=== PATIENT | male | born 1950 | race Hispanic/Latino ===

== ENCOUNTER 2019-02-11 16:25 | Inpatient (IN) | payer MEDICARE, OTHER ==
[~2019-02-11] VITALS: Wt 65.5 kg
--- OUTSIDE RECORDS SUMMARY | ~2019-02-11 | XMS | Encounter Summary ---
Demographics + + + | Address | [address] | | | [place] [address] | + + + | Home Phone | | + + + | Preferred Language | Unknown | + + + | Marital Status | Single | + + + | Yarsanism Affiliation | Unknown | + + + | Race | Unknown | + + + | Ethnic Group | Unknown | + + + Author + + + | Author | [facility] | | | and [place] | + + + | Organization | [facility] | | | and [place] | + + + | Address | Unknown | + + + | Phone | Unavailable | + + + Support + + +---------+ + | Name | Relationship | Address | Phone | + + +---------+ + | Message Detailed | ECON | Unknown | | + + +---------+ + | Liborio Escobar | ECON | Unknown | | + + +---------+ + Care Team Providers + +------+ + | Care Animal Geneticist Name | Role | Phone | + +------+ + PCP | Unavailable | + +------+ + Encounter Details +--------+ + + + + | Date | Type | Department | Care Team | Description | +--------+ + + + + | 07/10/ | Hospital | [facility] | Saleem Shore, | Rectal cancer (HCC) | | 2016 - | Encounter | [facility] [address] | MD [address] | | | | | [address] | [address] | | | 07/13/ | | [place], [place] | [place] [address] | | | 2016 | | [id number] | [phone] | | | | | [phone] | | | +--------+ + + + + Social History + +-------+ +--------+------+ | Tobacco Use | Types | Packs/Day | Years | Date | | | | | Used | | + +-------+ +--------+------+ | Never Assessed | | | | | + +-------+ +--------+------+ + + + | Sex Assigned at | Date Recorded | | | | + + + | Not on file | | + + + + + + + | Job Start Date | Occupation | Industry | + + + + | Not on file | Not on file | Not on file | + + + + + + + + | Travel History | Travel Start | Travel End | + + + + + + | No recent travel history available. | + + documented as of this encounter Last Filed Vital Signs + + + + + | Vital Sign | Reading | Time Taken | Comments | + + + + + | Blood Pressure | 115/69 | 07/14/2015 3:35 PM | | | | | PDT | | + + + + + | Pulse | 78 | 07/14/2015 3:35 PM | | | | | PDT | | + + + + + | Temperature | 36.4 C (97.6 F) | 07/14/2015 3:35 PM | | | | | PDT | | + + + + + | Respiratory Rate | 18 | 07/14/2015 3:35 PM | | | | | PDT | | + + + + + | Oxygen Saturation | - | - | | + + + + + | Inhaled Oxygen | - | - | | | Concentration | | | | + + + + + | Weight | 68.3 kg (150 lb 8 | 07/14/2015 3:35 PM | | | | oz) | PDT | | + + + + + | Height | 162.6 cm (5' 4") | 07/14/2015 3:35 PM | | | | | PDT | | + + + + + | Body Mass Index | 25.83 | 07/14/2015 3:35 PM | | | | | PDT | | + + + + + documented in this encounter Discharge Summaries Bo Walters ARNP - 07/14/2015 9:24 AM PDTFormatting of this note might be differen t from the original. Discharge Summaries by JONATHON Zambrano at 07/14/15 0924 Author: JONATHON Zambrano Service: General Surgery Author Type: Nurse Óscar bhatia Filed: 07/14/1527 Date of Service: 07/14/15923 Status: Signed Information Services Assistant: JONATHON Zambrano (Nurse Practitioner) [facility] Service: Colon & Rectal Surgery Discharge Summary Date of Admission: 07/11/2015 Date of Discharge: 07/14/15 Discharge Provider: JONATHON ZAMBRANO Treatment Team: Admitting Provider: Saleem Shore MD Discharge Diagnoses: Active Problems: * No active hospital problems. * Resolved Problems: * No resolved hospital problems. * Final Diagnoses: Procedures: Procedure(s): ILEOSTOMY - TAKE DOWN OR REVISION BRIEF HISTORY OF PRESENTATION: Taken from Dr. Shore's H&P: S/P ultralow LAR with coloanal anastomosis for low rec brain cancer. Flex sign and LGI done HOSPITAL COURSE: Jose Eaton was taken to the OR with Dr. Shore for a ileostomy reversal on 06/26 08/10. He is tolerating a general diet without nausea and vomiting. He is passing gas and hav ing liquid stool. He denies any complaints at this time. He states a desire to return home. Past Medical History Diagnosis Date Arthritis Hyperlipidemia Joint pain Rectal cancer (HCC) 09/06/2014 Acute kidney injury (HCC) 01/12/2015 Past Surgical History Procedure Laterality Date Colonoscopy Flexible sigmoidoscopy N/A 08/21/2014 Procedure: SIGMOIDOSCOPY - FLEXIBLE; Surgeon: Saleem Shore MD; Location: [facility]; Service: General; Laterality: N/A; Total hip arthroplasty Bilateral Knee surgery Right Flexible sigmoidoscopy N/A 12/25/2014 Procedure: SIGMOIDOSCOPY - FLEXIBLE; Surgeon: Saleem Shore MD; Location: [facility] ENDO SCOP; Service: General; Laterality: N/A; Robotic assisted laparoscopic colon resection - coloanal N/A 01/03/2015 Procedure: ROBOTIC ASSISTED LAPAROSCOPIC COLON RESECTION - COLOANAL; Surgeon: Saleem chauhan MD; Location: [facility] MAIN OR; Service: General; Laterality: N/A; coloanal pull thr ough Flexible sigmoidoscopy N/A 01/03/2015 Procedure: SIGMOIDOSCOPY - FLEXIBLE; Surgeon: Saleem Shore MD; Location: [facility] MAIN OR; Service: General; Laterality: N/A; Sigmoidoscopy - rigid N/A 01/03/2015 Procedure: SIGMOIDOSCOPY - RIGID; Surgeon: Saleem Shore MD; Location: [facility] MAIN OR ; Service: General; Laterality: N/A; Flexible bronchoscopy N/A 01/17/2015 Procedure: BRONCHOSCOPY - FLEXIBLE; Surgeon: Lui Lindsey MD; Location: [facility] BEDSID E PROCEDURE; Service: Paper Maker; Laterality: N/A; Flexible sigmoidoscopy N/A 04/30/2015 Procedure: SIGMOIDOSCOPY - FLEXIBLE; Surgeon: Saleem Shore MD; Location: [facility] ENDO SCOPY; Service: General; Laterality: N/A; Ileostomy revision N/A 07/11/2015 Procedure: ILEOSTOMY - TAKE DOWN OR REVISION; Surgeon: Saleem Shore MD; Location: [facility] MAIN OR; Service: General; Laterality: N/A; Allergies Allergen Reactions Seasonal Allergies [Other-Environmental] Itching Prescriptions prior to admission Medication Sig Dispense Refill Last Dose meloxicam (MOBIC) 7.5 MG tablet Take 7.5 mg by mouth daily. More than a month at Unkn own time pravastatin (PRAVACHOL) 40 MG tablet Take 40 mg by mouth nightly. More than a month a t Unknown time DISCHARGE EXAM Vital Signs: BP 115/61 mmHg | Pulse 64 | Temp(Src) 97.8 F (36.6 C) (Oral) | Resp 16 | Ht 1.626 m (5' 4") | Wt 68.266 kg (150 lb 8 oz) | BMI 25.82 kg/m2 | SpO2 100% Temp: [97.3 F (36.3 C)-98.1 F (36.7 C)] 97.8 F (36.6 C) (07/13 746) BP: (108-130)/(58-76) 115/61 mmHg (07/13 746) Heart Rate: [64-78] 64 (07/13 746) Resp: [16-18] 16 (07/13 746) SpO2: [100 %] 100 % (07/13 746) Weight: [68.266 kg (150 lb 8 oz)] 68.266 kg (150 lb 8 oz) (07/13 446) Physical Exam Constitutional: He is oriented to person, place, and time. He appears well-developed and we ll-nourished. Cardiovascular: Normal rate. Pulmonary/Chest: Effort normal. Abdominal: Soft. He exhibits no distension. There is no tenderness. There is no rebound and no guarding. Neurological: He is alert and oriented to person, place, and time. Skin: Skin is warm and dry. Psychiatric: He has a normal mood and affect. His behavior is normal. Nursing note and vitals reviewed. DATA CBC: Lab Results Component Value Date WBC 6.08 07/13/2015 RBC 3.87* 07/13/2015 HGB 12.5* 07/13/2015 HCT 36.2* 07/13/2015 MCV 93.7 07/13/2015 MCH 32.3 07/13/2015 MCHC 34.5 07/13/2015 RDW 43.3 07/13/2015 PLT 187 07/13/2015 MPV 8.2 07/13/2015 DIFFTYPE AUTOMATED 07/13/2015 CMP: Lab Results Component Value Date NA 134* 07/13/2015 K 3.7 07/13/2015 CL 102 07/13/2015 CO2 26 07/13/2015 ANIONGAP 10 07/13/2015 GLUF 80 07/13/2015 BUN 9 07/13/2015 CREATININE 0.71 07/13/2015 BCR 13 07/13/2015 CA 8.4* 07/13/2015 PROT 7.3 06/26/2015 ALB 2.8* 07/12/2015 GLOB 3.6 06/26/2015 BILITOT 0.6 06/26/2015 ALP 116* 06/26/2015 AST 15 06/26/2015 ALT 14 06/26/2015 EGFR >60 07/13/2015 PLAN D/C home Hydrocodone PRN for pain OTC stool softener while on narcotic Low residue diet No lifting more than 20 lbs for 4 weeks Ok to shower, no baths until incision are healed Disposition: Home Condition: Stable Code Status: Full Code No discharge procedures on file. Follow up: No follow-up provider specified. Medication List Notice You have not been prescribed any medications. Discharge took 20 minutes, to include final examination, discussion of admission, and prepa ration of prescriptions, instructions for on-going care, follow-up and documentation of disc harge summary. JONATHON ZAMBRANO 07/14/2015 documented in t his encounter Progress Notes Conversion Transaction, Provider Unknown - 07/14/2015 6:22 PM PDTFormatting of this note m ight be different from the original. Nurse Progress Note by Belén Horn RN at 07/14/151821 Author: Belén Horn RN Service: (none) Author Type: Registered Nurse Filed: 07/14/151825 Date of Service: 07/14/151821 Status: Signed Information Services Assistant: Belén Horn RN (Registered Nurse) Pt has been discharged home. Rx and paperwork has been discussed and he knows to follow up as directed. He is ambulating, tolerating food, voiding and pain is controlled. He has no fu rther questions at this time. All instructions have been discussed with pt's friend and with am customs compliance manager. onver alex Transaction, Provider Unknown - 07/14/2015 8:32 AM PDT Case Management by BRIA Ward at 07/14/15831 Author: BRIA Ward Service: (none) Author Type: Inbound Customer Service Agent Filed: 07/14/15 0833 Date of Service: 07/14/15831 Status: Signed Information Services Assistant: BRIA Ward (Inbound Customer Service Agent) CM met with pt for continued discharge planning. Pt states he still has no needs and should be able to manage at home once his bowel function has returned. CM will continue to follow as needed. Rene REED onver alex Transaction, Provider Unknown - 07/14/2015 4:52 AM PDT Nurse Progress Note by Kris Smith RN at 07/14/15451 Author: Kris Smith RN Service: (none) Author Type: Registered Nurse Filed: 07/14/15454 Date of Service: 07/14/15451 Status: Signed Information Services Assistant: Kris Smith RN (Registered Nurse) Patient continues to pass gas. He states a decrease in the amount of mucous when passing ga s. He continues to decline PRN pain medications and prefers to manage pain conservatively wi th IS, ambulation, and heat. He continues to decline scheduled medications as well (includin g heparin); he has been educated about meds. Kris Smith RN 07/14/2015 4:54 AM ilSaleem schaefer MD - 07/13/2015 11:08 AM PDT Progress Notes by Saleem Shore MD at 07/13/15 1108 Author: Saleem Shore MD Service: General Surgery Author Type: Physician Filed: 07/13/15 1109 Date of Service: 07/13/158 Status: Signed Information Services Assistant: Saleem Shore MD (Physician) [facility] Service: Colon & Rectal Surgery Progress Note Hospital Day: LOS: 2 days Post-Op Day: 2 Day Post-Op SUBJECTIVE Patient Summary: ileostomy reversal Events Overnight: No nausea or vomiting, passed gas, pain controlled.ambulatory Scheduled Medications acetaminophen 1,000 mg Intravenous Q6H atorvastatin 20 mg Oral Nightly famotidine 20 mg Oral BID Or famotidine 20 mg Intravenous BID heparin (porcine) 5000 unit/0.5mL 5,000 Units Subcutaneous Q8H potassium chloride 20 mEq Intravenous Once Continuous Infusions lactated ringers 75 mL/hr at 07/13/15 0822 PRN Medications acetaminophen OR acetaminophen, HYDROcodone-acetaminophen OR HYDROcodone-acetaminop hen, morphine OR morphine OR morphine, ondansetron OR ondansetron, polyethylene glycol, zolpidem OBJECTIVE Vital Signs: BP 124/71 mmHg | Pulse 78 | Temp(Src) 98.1 F (36.7 C) (Oral) | Resp 18 | Ht 1.626 m (5' 4") | Wt 69.8 kg (153 lb 14.1 oz) | BMI 26.40 kg/m2 | SpO2 100% Temp: [97.8 F (36.6 C)-98.9 F (37.2 C)] 98.1 F (36.7 C) (07/12 1054) BP: (118-147)/(70-82) 124/71 mmHg (07/12 1054) Heart Rate: [60-91] 78 (07/12 1054) Resp: [16-18] 18 (07/12 105) SpO2: [99 %-100 %] 100 % (07/12 105) Weight: [69.8 kg (153 lb 14.1 oz)] 69.8 kg (153 lb 14.1 oz) (07/12 0422) Physical Exam Constitutional: He is oriented to person, place, and time. He appears well-developed and we ll-nourished. No distress. HENT: Head: Atraumatic. Eyes: Pupils are equal, round, and reactive to light. Neck: Neck supple. Cardiovascular: Normal rate. Pulmonary/Chest: Effort normal. No respiratory distress. Abdominal: Soft. He exhibits no distension. Neurological: He is alert and oriented to person, place, and time. Skin: Skin is warm. He is not diaphoretic. Psychiatric: He has a normal mood and affect. Nursing note and vitals reviewed. DATA CBC: Lab Results Component Value Date WBC 6.08 07/13/2015 RBC 3.87* 07/13/2015 HGB 12.5* 07/13/2015 HCT 36.2* 07/13/2015 MCV 93.7 07/13/2015 MCH 32.3 07/13/2015 MCHC 34.5 07/13/2015 RDW 43.3 07/13/2015 PLT 187 07/13/2015 MPV 8.2 07/13/2015 DIFFTYPE AUTOMATED 07/13/2015 CMP: Lab Results Component Value Date NA 134* 07/13/2015 K 3.7 07/13/2015 CL 102 07/13/2015 CO2 26 07/13/2015 ANIONGAP 10 07/13/2015 GLUF 80 07/13/2015 BUN 9 07/13/2015 CREATININE 0.71 07/13/2015 BCR 13 07/13/2015 CA 8.4* 07/13/2015 PROT 7.3 06/26/2015 ALB 2.8* 07/12/2015 GLOB 3.6 06/26/2015 BILITOT 0.6 06/26/2015 ALP 116* 06/26/2015 AST 15 06/26/2015 ALT 14 06/26/2015 EGFR >60 07/13/2015 PROBLEM LIST Active Problems: * No active hospital problems. * ASSESSMENT & PLAN POD#2 S/p Ileostomy reversal, bowel function returning. - ambulate - Replete lytes. - FLD and advance to Low residue diet. Disposition: Code Status: Full Code Saleem Shore MD 07/13/2015 onversion Transac tion, Provider Unknown - 07/13/2015 5:41 AM PDTFormatting of this note might be different f rom the original. Nurse Progress Note by Kris Smith RN at 07/13/15540 Author: Kris Smith RN Service: (none) Author Type: Registered Nurse Filed: 07/13/1542 Date of Service: 07/13/15540 Status: Signed Information Services Assistant: Kris Smith RN (Registered Nurse) Overnight patient passed a substantial amount of gas, mucous, and old blood that appeared c onsistent with surgical remnants. Patient denies any changes in pain, stomach remains rounde d, soft, and supple; abdominal tenderness remains as it was at shift change, and there is no asael blood. [facility]. Kris Smith RN 07/13/2015 5:42 AM aleem Christie MD - 07/12/2015 9:55 AM PDT Progress Notes by Saleem Shore MD at 07/12/1555 Author: Saleem Shore MD Service: General Surgery Author Type: Physician Filed: 07/12/1557 Date of Service: 07/12/15954 Status: Signed Information Services Assistant: Saleem Shore MD (Physician) [facility] Service: Colon & Rectal Surgery Progress Note Hospital Day: LOS: 1 day Post-Op Day: 1 Day Post-Op SUBJECTIVE Patient Summary: ileostomy reversal Events Overnight: No nausea or vomiting, not passed gas yet, pain controlled.ambulato ry Scheduled Medications acetaminophen 1,000 mg Intravenous Q6H atorvastatin 20 mg Oral Nightly famotidine 20 mg Oral BID Or famotidine 20 mg Intravenous BID heparin (porcine) 5000 unit/0.5mL 5,000 Units Subcutaneous Q8H magnesium sulfate 2 g Intravenous Once Continuous Infusions lactated ringers 75 mL/hr at 07/12/15 0646 PRN Medications acetaminophen OR acetaminophen, HYDROcodone-acetaminophen OR HYDROcodone-acetaminop hen, morphine OR morphine OR morphine, ondansetron OR ondansetron, polyethylene glycol, zolpidem OBJECTIVE Vital Signs: BP 135/83 mmHg | Pulse 65 | Temp(Src) 98.4 F (36.9 C) (Oral) | Resp 16 | Ht 1.626 m (5' 4") | Wt 70.489 kg (155 lb 6.4 oz) | BMI 26.66 kg/m2 | SpO2 100% Temp: [96.6 F (35.9 C)-98.5 F (36.9 C)] 98.4 F (36.9 C) (07/11 742) BP: (114-175)/(69-90) 135/83 mmHg (07/11 742) Heart Rate: [65-104] 65 (07/11 742) Resp: [15-21] 16 (07/11 742) SpO2: [98 %-100 %] 100 % (07/11 742) Height: [162.6 cm (5' 4")] 162.6 cm (5' 4") (07/10 1025) Weight: [70.489 kg (155 lb 6.4 oz)-80.7 kg (177 lb 14.6 oz)] 70.489 kg (155 lb 6.4 oz) ( 0420) BMI (Calculated): [30.6] 30.6 (07/10 1025) FiO2 : [56 %-96 %] 95 % (07/10 1235) Physical Exam Constitutional: He is oriented to person, place, and time. He appears well-developed and we ll-nourished. No distress. HENT: Head: Atraumatic. Eyes: Pupils are equal, round, and reactive to light. Neck: Neck supple. Cardiovascular: Normal rate. Pulmonary/Chest: Effort normal. No respiratory distress. Abdominal: Soft. He exhibits no distension. Neurological: He is alert and oriented to person, place, and time. Skin: Skin is warm. He is not diaphoretic. Psychiatric: He has a normal mood and affect. Nursing note and vitals reviewed. DATA CBC: Lab Results Component Value Date WBC 6.79 07/12/2015 RBC 3.82* 07/12/2015 HGB 12.5* 07/12/2015 HCT 34.9* 07/12/2015 MCV 91.5 07/12/2015 MCH 32.8 07/12/2015 MCHC 35.8* 07/12/2015 RDW 43.3 07/12/2015 PLT 197 07/12/2015 MPV 7.5 07/12/2015 DIFFTYPE AUTOMATED 07/12/2015 CMP: Lab Results Component Value Date NA 136 07/12/2015 K 4.3 07/12/2015 CL 100 07/12/2015 CO2 28 07/12/2015 ANIONGAP 12 07/12/2015 GLUF 100* 07/12/2015 BUN 8 07/12/2015 CREATININE 0.68* 07/12/2015 BCR 12 06/26/2015 CA 8.0* 07/12/2015 PROT 7.3 06/26/2015 ALB 2.8* 07/12/2015 GLOB 3.6 06/26/2015 BILITOT 0.6 06/26/2015 ALP 116* 06/26/2015 AST 15 06/26/2015 ALT 14 06/26/2015 EGFR >60 07/12/2015 PROBLEM LIST Active Problems: * No active hospital problems. * ASSESSMENT & PLAN POD#1 S/p Ileostomy reversal, awaiting return of bowel function. - ambulate - Replete lytes. Disposition: Code Status: Full Code Saleem Shore MD 07/12/2015 onversion Transac tion, Provider Unknown - 07/12/2015 5:47 AM PDTFormatting of this note might be different f rom the original. Nurse Progress Note by Kris Smith RN at 07/12/15546 Author: Kris Smith RN Service: (none) Author Type: Registered Nurse Filed: 07/12/1548 Date of Service: 07/12/15546 Status: Signed Information Services Assistant: Kris Smith RN (Registered Nurse) Patient educated multiple times about DVT prophylaxis with heparin, SCDs, and frequent ambu lation. Patient educated about pain control with breathing exercises, ambulation, scheduled pain me ds, and PRN pain meds. Patient states understanding. Kris Smith RN 07/12/2015 5:48 AM onver alex Transaction, Provider Unknown - 07/11/2015 3:12 PM PDT Case Management by BRIA Ward at 07/11/151511 Author: BRIA Ward Service: (none) Author Type: Inbound Customer Service Agent Filed: 07/11/151512 Date of Service: 07/11/151511 Status: Signed Information Services Assistant: BRIA Ward (Inbound Customer Service Agent) CM met with pt for discharge planning. He is 65 years old and independent at home. Pt does not use Durable Medical Equipment at home. Pt is usually able to perform daily living activi ties including personal hygiene, grooming, dressing, feeding, ambulation and and bladder con trol. Pt currently has no resource concerns at this time. CM will continue to follow as need ed. Discharge Plan: Home. Rene REED 07/11/151511 Discharge Planning Evaluation Admitting Diagnosis Ileostomy reversal Readmission No Living Arrangements Alone Support Systems Family members Type of Residence Private residence Steps to enter 2 Bathrooms on 1st Floor 1-Full Independent with ADL's Yes Independent with Mobility Yes Mental Status Oriented Anticipated Discharge Plan Post Acute Care Needs None at this time Resources Financial concerns No Transportation issues No Patient/Family concerns No Prescription Plan Yes Anticipated Disposition Facility Type Home Medicare Important Message (GAUTAM) Given Met with: Patient and discussed discharge planning, Pt is a 65 y.o., male Patient's PCP is: Kris Hernandez Patient's insurance: Medicare Coverage concerns: None Medication coverage/concerns: None Community resources utilized / needed: None Assistance in transportation: Not needed. Identification of any specific education / training: None Barriers to Discharge / Alternative housing needed: None Anticipated DCP: Home onver alex Transaction, Provider Unknown - 07/11/2015 2:12 PM PDT Progress Notes by Harry Santos RPH at 07/11/151411 Author: Harry Santos RPH Service: (none) Author Type: Pharmacist Filed: 07/11/151411 Date of Service: 07/11/151411 Status: Signed Information Services Assistant: Harry Santos RPH (Pharmacist) Pharmacy will renal dose as needed once labs are available. docume nted in this encounter Plan of Treatment +--------+ + + + + | Date | Type | Specialty | Care Team | Description | +--------+ + + + + | 02/21/ | Hospital | | Saleem Shore, | Rectal prolapse | | 2018 | Encounter | | MD [address] | | | | | | [facility] [address] | | | | | | [place] [address] | | | | | | [phone] | | | | | | | | +--------+ + + + + | 02/21/ | Surgery | | Saleem Shore, | COLONOSCOPY | | 2019 | | | [address] | | | | | | [address] | | | | | | [place] [address] | | | | | | [phone] | | | | | | | | +--------+ + + + + documented as of this encounter Procedures + +--------+ + + + | Procedure Name | Priori | Date/Time | Associated Diagnosis | Comments | | | ty | | | | + +--------+ + + + | TISSUE REQUEST FOR | Routin | 07/14/2015 | | Results for this | | PATHOLOGY (NON-ORD) | e | 12:00 AM | | procedure are in the | | | | PDT | | results section. | + +--------+ + + + | EXTERNAL LAB: CBC | Routin | 07/13/2015 | | Results for this | | | e | 4:17 AM | | procedure are in the | | | | PDT | | results section. | + +--------+ + + + | PHOSPHORUS | Routin | 07/13/2015 | | Results for this | | | e | 4:17 AM | | procedure are in the | | | | PDT | | results section. | + +--------+ + + + | MAGNESIUM | Routin | 07/13/2015 | | Results for this | | | e | 4:17 AM | | procedure are in the | | | | PDT | | results section. | + +--------+ + + + | BASIC METABOLIC | Routin | 07/13/2015 | | Results for this | | PANEL | e | 4:17 AM | | procedure are in the | | | | PDT | | results section. | + +--------+ + + + | EXTERNAL LAB: CBC | Routin | 07/12/2015 | | Results for this | | | e | 7:10 AM | | procedure are in the | | | | PDT | | results section. | + +--------+ + + + | MAGNESIUM | Routin | 07/12/2015 | | Results for this | | | e | 7:10 AM | | procedure are in the | | | | PDT | | results section. | + +--------+ + + + | RENAL FUNCTION PANEL | Routin | 07/12/2015 | | Results for this | | | e | 7:10 AM | | procedure are in the | | | | PDT | | results section. | + +--------+ + + + documented in this encounter Results Tissue Request For Pathology (07/14/2015 12:00 AM PDT) + + | Specimen | + + | Soft tissue sample | | (specimen) | + + + + + | Narrative | Performed At | + + + | SPECIMEN(S): A STOMA SPECIMEN SOURCE: A. STOMA CLINICAL | EXTERNAL LAB | | HISTORY: 07/11/2015 at 1155 H. Rectal cancer. FINAL PATHOLOGIC | | | DIAGNOSIS: Stoma site: - Unremarkable stoma site, negative for | | | malignancy. AMB:emb:C2NR GROSS DESCRIPTION: One specimen is | | | received in one container, labeled with the patient's name: A. | | | Received in formalin designated "stoma", consists of one unoriented | | | segment of small bowel that is 6.6 cm in length and has an average | | | diameter of 2.6 cm. The serosal surface is violaceous and smooth with | | | a 3.4 x 2.2 cm stoma along one aspect. The exposed mucosa is pink-red | | | and finely granular. The stoma is rimmed by 5.2 x 2.7 cm portion of | | | skin. The skin surface is vitale-lentz and wrinkled. The uninvolved | | | mucosa is yellow-lentz and finely granular. The bowel wall has an | | | average thickness of 0.8 cm. Program Lead sections of skin and bowel | | | wall are submitted in cassette A1. FM The gross description | | | section of this report has been prepared using a voice recognition | | | system. The report was reviewed for accuracy, however, sound-alike | | | word errors, addition and/or deletions may occur. If there is any | | | question about this report please contact the originating pathologist. | | | MICROSCOPIC EXAMINATION: Histologic sections of all submitted | | | blocks are examined by light microscopy. These findings, together | | | with the gross examination, support the pathologic diagnosis. | | | PERFORMING LABORATORY: Professional interpretation and technical | | | preparation was performed by [email or web address] | | | [address] [address] ([employer] Estimator: | | | Rahul Adamson M.D.; [facility]#: [id number]). Diagnostician: Asya Garcia | | | [facility] Pathologist Electronically Signed 07/15/2015 | | + + + + +---------+ + + | Performing | Address | City/State/Zipcode | Phone Number | | Organization | | | | + +---------+ + + | EXTERNAL LAB | | | | + +---------+ + + External Lab: KARI (07/13/2015 4:17 AM PDT) + + + + + + | Component | Value | Ref Range | Performed | Pathologist | | | | | At | Signature | + + + + + + | WBC | 6.08Comment: Testing | 3.80 - 11.00 | EXTERNAL | | | | performed at [facility], [address] | K/uL | LAB | | | | [address], | | | | | | [place] [address] | | | | + + + + + + | RED CELL | 3.87 (L)Comment: Testing | 4.20 - 5.70 | EXTERNAL | | | COUNT | performed at [facility], [address] | M/uL | LAB | | | | [address], | | | | | | [place] [address] | | | | + + + + + + | Hgb | 12.5 (L)Comment: Testing | 13.2 - 17.0 | EXTERNAL | | | | performed at [facility], [address] | g/dL | LAB | | | | [address], | | | | | | [place] [address] | | | | + + + + + + | Hematocrit, | 36.2 (L)Comment: Testing | 39.0 - 50.0 % | EXTERNAL | | | POC | performed at [facility], [address] | | LAB | | | | [address], | | | | | | [place] [address] | | | | + + + + + + | MCV | 93.7Comment: Testing | 80.0 - 100.0 fl | EXTERNAL | | | | performed at [facility], [address] | | LAB | | | | [address], | | | | | | [place] [address] | | | | + + + + + + | MCH | 32.3Comment: Testing | 27.0 - 34.0 pg | EXTERNAL | | | | performed at [facility], [address] | | LAB | | | | [address], | | | | | | [place] [address] | | | | + + + + + + | MCHC | 34.5Comment: Testing | 32.0 - 35.5 | EXTERNAL | | | | performed at [facility], [address] | g/dL | LAB | | | | [address], | | | | | | [place] [address] | | | | + + + + + + | RDW-CV | 43.3Comment: Testing | 37 - 53 fl | EXTERNAL | | | | performed at [facility], [address] | | LAB | | | | [address], | | | | | | [place] [address] | | | | + + + + + + | Platelet | 187Comment: Testing | 150 - 400 K/uL | EXTERNAL | | | Count | performed at [facility], [address] | | LAB | | | Plasma | [address], | | | | | | [place] [address] | | | | + + + + + + | MPV | 8.2Comment: Testing | fl | EXTERNAL | | | | performed at [facility], [address] | | LAB | | | | [address], | | | | | | [place] [address] | | | | + + + + + + | Differentia | AUTOMATEDComment: | | EXTERNAL | | | l Type | Testing performed at | | LAB | | | | [facility], [address] | | | | | | [place] | | | | | | [address] | | | | + + + + + + | % Segmented | 73.77Comment: Testing | % | EXTERNAL | | | | performed at [facility], [address] | | LAB | | | Neutrophils | [address], | | | | | | [place] [address] | | | | + + + + + + | % | 17.27Comment: Testing | % | EXTERNAL | | | Lymphocytes | performed at [facility], [address] | | LAB | | | | [address], | | | | | | [place] [address] | | | | + + + + + + | % Monocytes | 6.10Comment: Testing | % | EXTERNAL | | | | performed at [facility], [address] | | LAB | | | | [address], | | | | | | [place] [address] | | | | + + + + + + | % | 2.14Comment: Testing | % | EXTERNAL | | | Eosinophils | performed at [facility], [address] | | LAB | | | | [address], | | | | | | [place] [address] | | | | + + + + + + | % Basophils | 0.72Comment: Testing | % | EXTERNAL | | | | performed at [facility], [address] | | LAB | | | | [address], | | | | | | [place] [address] | | | | + + + + + + | Absolute | 4.48Comment: Testing | 1.90 - 7.40 | EXTERNAL | | | Segmented | performed at [facility], [address] | K/uL | LAB | | | Neutrophils | [address], | | | | | | [place] [address] | | | | + + + + + + | Absolute | 1.05Comment: Testing | 1.00 - 3.90 | EXTERNAL | | | Lymphocytes | performed at [facility], [address] | K/uL | LAB | | | | [address], | | | | | | [place] [address] | | | | + + + + + + | Absolute | 0.37Comment: Testing | 0.00 - 0.80 | EXTERNAL | | | Monocytes | performed at [facility], [address] | K/uL | LAB | | | | [address], | | | | | | [place] [address] | | | | + + + + + + | Absolute | 0.13Comment: Testing | 0.00 - 0.50 | EXTERNAL | | | Eosinophils | performed at [facility], [address] | K/uL | LAB | | | | [address], | | | | | | [place] [address] | | | | + + + + + + | Absolute | 0.04Comment: Testing | 0.00 - 0.10 | EXTERNAL | | | Basophils | performed at [facility], [address] | K/uL | LAB | | | | [address], | | | | | | [place] [address] | | | | + + + + + + + + | Specimen | + + | Blood specimen | | (specimen) | + + + +---------+ + + | Performing | Address | City/State/Zipcode | Phone Number | | Organization | | | | + +---------+ + + | EXTERNAL LAB | | | | + +---------+ + + Phosphorus (07/13/2015 4:17 AM PDT) + + + + + + | Component | Value | Ref Range | Performed | Pathologist | | | | | At | Signature | + + + + + + | PHOSPHORUS | 2.8Comment: Testing | 2.3 - 4.8 mg/dL | EXTERNAL | | | | performed at [facility], [address] | | LAB | | | | [address], | | | | | | [place] [address] | | | | + + + + + + + + | Specimen | + + | Blood specimen | | (specimen) | + + + +---------+ + + | Performing | Address | City/State/Zipcode | Phone Number | | Organization | | | | + +---------+ + + | EXTERNAL LAB | | | | + +---------+ + + Magnesium (07/13/2015 4:17 AM PDT) + + + + + + | Component | Value | Ref Range | Performed | Pathologist | | | | | At | Signature | + + + + + + | Magnesium | 1.9Comment: Testing | 1.7 - 2.4 mg/dL | EXTERNAL | | | | performed at [facility], [address] | | LAB | | | | [address], | | | | | | [place] [address] | | | | + + + + + + + + | Specimen | + + | Blood specimen | | (specimen) | + + + +---------+ + + | Performing | Address | City/State/Zipcode | Phone Number | | Organization | | | | + +---------+ + + | EXTERNAL LAB | | | | + +---------+ + + Basic Metabolic Panel (07/13/2015 4:17 AM PDT) + + + + + + | Component | Value | Ref Range | Performed | Pathologist | | | | | At | Signature | + + + + + + | Na | 134 (L)Comment: Testing | 135 - 143 | EXTERNAL | | | | performed at [facility], [address] | mmol/L | LAB | | | | [address], | | | | | | [place] [address] | | | | + + + + + + | K | 3.7Comment: Testing | 3.5 - 4.9 | EXTERNAL | | | | performed at [facility], [address] | mmol/L | LAB | | | | [address], | | | | | | [place] [address] | | | | + + + + + + | Cl | 102Comment: Testing | 99 - 109 mmol/L | EXTERNAL | | | | performed at [facility], [address] | | LAB | | | | [address], | | | | | | [place] [address] | | | | + + + + + + | CO2 | 26Comment: Testing | 23 - 32 mmol/L | EXTERNAL | | | | performed at [facility], [address] | | LAB | | | | [address], | | | | | | [place] [address] | | | | + + + + + + | Anion Gap | 10Comment: Testing | 5 - 20 mmol/L | EXTERNAL | | | | performed at [facility], [address] | | LAB | | | | [address], | | | | | | [place] [address] | | | | + + + + + + | Glucose, | 80Comment: Testing | 65 - 99 mg/dL | EXTERNAL | | | Fasting | performed at [facility], [address] | | LAB | | | | [address], | | | | | | [place] [address] | | | | + + + + + + | BUN | 9Comment: Testing | 8 - 25 mg/dL | EXTERNAL | | | | performed at [facility], [address] | | LAB | | | | [address], | | | | | | [place] [address] | | | | + + + + + + | Creatinine | 0.71Comment: Testing | 0.70 - 1.30 | EXTERNAL | | | | performed at [facility], [address] | mg/dL | LAB | | | | [address], | | | | | | [place] [address] | | | | + + + + + + | BUN/Creatin | 13Comment: Testing | | EXTERNAL | | | ine Ratio | performed at [facility], [address] | | LAB | | | | [address], | | | | | | [place] [address] | | | | + + + + + + | Calcium | 8.4 (L)Comment: Testing | 8.5 - 10.5 | EXTERNAL | | | | performed at [facility], [address] | mg/dL | LAB | | | | [address], | | | | | | [place] [address] | | | | + + + + + + | Estimated | >60Comment: GFR <60: | mL/min/1.73m2 | EXTERNAL | | | GFR | CHRONIC KIDNEY DISEASE, | | LAB | | | | IF FOUND OVER A 3 MONTH | | | | | | PERIOD.GFR <15: KIDNEY | | | | | | FAILURE.FOR | | | | | | AMERICANS, MULTIPLY THE | | | | | | CALCULATED GFR BY | | | | | | 1.210.Testing performed | | | | | | at [facility], [address] | | | | | | [place] [address], | | | | | | [place] [address] | | | | + + + + + + + + | Specimen | + + | Blood specimen | | (specimen) | + + + +---------+ + + | Performing | Address | City/State/Zipcode | Phone Number | | Organization | | | | + +---------+ + + | EXTERNAL LAB | | | | + +---------+ + + External Lab: CBC (07/12/2015 7:10 AM PDT) + + + + + + | Component | Value | Ref Range | Performed | Pathologist | | | | | At | Signature | + + + + + + | WBC | 6.79Comment: Testing | 3.80 - 11.00 | EXTERNAL | | | | performed at [facility] | K/uL | LAB | | | | [address];[place] | | | | | | [address] | | | | + + + + + + | RED CELL | 3.82 (L)Comment: Testing | 4.20 - 5.70 | EXTERNAL | | | COUNT | performed at [facility] | M/uL | LAB | | | | [address];[place] | | | | | | [address] | | | | + + + + + + | Hgb | 12.5 (L)Comment: Testing | 13.2 - 17.0 | EXTERNAL | | | | performed at [facility] | g/dL | LAB | | | | [address];[place] | | | | | | [address] | | | | + + + + + + | Hematocrit, | 34.9 (L)Comment: Testing | 39.0 - 50.0 % | EXTERNAL | | | POC | performed at [facility] | | LAB | | | | [address];[place] | | | | | | [address] | | | | + + + + + + | MCV | 91.5Comment: Testing | 80.0 - 100.0 fl | EXTERNAL | | | | performed at [facility] | | LAB | | | | [address];[place] | | | | | | [address] | | | | + + + + + + | MCH | 32.8Comment: Testing | 27.0 - 34.0 pg | EXTERNAL | | | | performed at [facility] | | LAB | | | | [address];[place] | | | | | | [address] | | | | + + + + + + | MCHC | 35.8 (H)Comment: Testing | 32.0 - 35.5 | EXTERNAL | | | | performed at [facility] | g/dL | LAB | | | | [address];[place] | | | | | | [address] | | | | + + + + + + | RDW-CV | 43.3Comment: Testing | 37 - 53 fl | EXTERNAL | | | | performed at [facility] | | LAB | | | | [address];[place] | | | | | | [address] | | | | + + + + + + | Platelet | 197Comment: Testing | 150 - 400 K/uL | EXTERNAL | | | Count | performed at [facility] | | LAB | | | Plasma | [address];[place] | | | | | | [address] | | | | + + + + + + | MPV | 7.5Comment: Testing | fl | EXTERNAL | | | | performed at [facility] | | LAB | | | | [address];[place] | | | | | | [address] | | | | + + + + + + | Differentia | AUTOMATEDComment: | | EXTERNAL | | | l Type | Testing performed at | | LAB | | | | [address] | [address];[place] [address] | | | | + + + + + + | % Segmented | 80.27Comment: Testing | % | EXTERNAL | | | | performed at [facility] | | LAB | | | Neutrophils | [address];[place] | | | | | | [address] | | | | + + + + + + | % | 11.95Comment: Testing | % | EXTERNAL | | | Lymphocytes | performed at [facility] | | LAB | | | | [address];[place] | | | | | | [address] | | | | + + + + + + | % Monocytes | 7.21Comment: Testing | % | EXTERNAL | | | | performed at [facility] | | LAB | | | | [address];[place] | | | | | | [address] | | | | + + + + + + | % | 0.09Comment: Testing | % | EXTERNAL | | | Eosinophils | performed at [facility] | | LAB | | | | [address];[place] | | | | | | [address] | | | | + + + + + + | % Basophils | 0.48Comment: Testing | % | EXTERNAL | | | | performed at [facility] | | LAB | | | | [address];[place] | | | | | | [address] | | | | + + + + + + | Absolute | 5.45Comment: Testing | 1.90 - 7.40 | EXTERNAL | | | Segmented | performed at [facility] | K/uL | LAB | | | Neutrophils | [address];[place] | | | | | | [address] | | | | + + + + + + | Absolute | 0.81 (L)Comment: Testing | 1.00 - 3.90 | EXTERNAL | | | Lymphocytes | performed at [facility] | K/uL | LAB | | | | [address];[place] | | | | | | [address] | | | | + + + + + + | Absolute | 0.49Comment: Testing | 0.00 - 0.80 | EXTERNAL | | | Monocytes | performed at [facility];[address] | K/uL | LAB | | | | [address];[place] | | | | | | [address] | | | | + + + + + + | Absolute | 0.01Comment: Testing | 0.00 - 0.50 | EXTERNAL | | | Eosinophils | performed at [facility] | K/uL | LAB | | | | [address];[place] | | | | | | [address] | | | | + + + + + + | Absolute | 0.03Comment: Testing | 0.00 - 0.10 | EXTERNAL | | | Basophils | performed at [facility] | K/uL | LAB | | | | [address];[place] | | | | | | [address] | | | | + + + + + + + + | Specimen | + + | | + + + +---------+ + + | Performing | Address | City/State/Zipcode | Phone Number | | Organization | | | | + +---------+ + + | EXTERNAL LAB | | | | + +---------+ + + Magnesium (07/12/2015 7:10 AM PDT) + + + + + + | Component | Value | Ref Range | Performed | Pathologist | | | | | At | Signature | + + + + + + | Magnesium | 1.7Comment: Testing | 1.7 - 2.4 mg/dL | EXTERNAL | | | | performed at [facility] | | LAB | | | | [address];[place], [place] | | | | | | [address] | | | | + + + + + + + + | Specimen | + + | | + + + +---------+ + + | Performing | Address | City/State/Zipcode | Phone Number | | Organization | | | | + +---------+ + + | EXTERNAL LAB | | | | + +---------+ + + Renal Function Panel (07/12/2015 7:10 AM PDT) + + + + + + | Component | Value | Ref Range | Performed | Pathologist | | | | | At | Signature | + + + + + + | Na | 136Comment: Testing | 135 - 143 | EXTERNAL | | | | performed at [facility] | mmol/L | LAB | | | | [address];[place] | | | | | | [address] | | | | + + + + + + | K | 4.3Comment: Testing | 3.5 - 4.9 | EXTERNAL | | | | performed at [facility] | mmol/L | LAB | | | | [address];[place] | | | | | | [address] | | | | + + + + + + | Cl | 100Comment: Testing | 99 - 109 mmol/L | EXTERNAL | | | | performed at [facility] | | LAB | | | | [address];[place] | | | | | | [address] | | | | + + + + + + | CO2 | 28Comment: Testing | 23 - 32 mmol/L | EXTERNAL | | | | performed at [facility] | | LAB | | | | [address];[place] | | | | | | [address] | | | | + + + + + + | Anion Gap | 12Comment: Testing | 5 - 20 mmol/L | EXTERNAL | | | | performed at [facility] | | LAB | | | | [address];[place] | | | | | | [address] | | | | + + + + + + | Glucose, | 100 (H)Comment: Testing | 65 - 99 mg/dL | EXTERNAL | | | Fasting | performed at [facility] | | LAB | | | | [address];[place] | | | | | | [address] | | | | + + + + + + | BUN | 8Comment: Testing | 8 - 25 mg/dL | EXTERNAL | | | | performed at [facility] | | LAB | | | | [address];[place] | | | | | | [address] | | | | + + + + + + | Creatinine | 0.68 (L)Comment: Testing | 0.70 - 1.30 | EXTERNAL | | | | performed at [facility] | mg/dL | LAB | | | | [address];[place] | | | | | | [address] | | | | + + + + + + | Calcium | 8.0 (L)Comment: Testing | 8.5 - 10.5 | EXTERNAL | | | | performed at [facility] | mg/dL | LAB | | | | [address];[place] | | | | | | [address] | | | | + + + + + + | Albumin | 2.8 (L)Comment: Testing | 3.3 - 4.8 g/dL | EXTERNAL | | | | performed at [facility] | | LAB | | | | [address];[place] | | | | | | [address] | | | | + + + + + + | PHOSPHORUS | 2.9Comment: Testing | 2.3 - 4.8 mg/dL | EXTERNAL | | | | performed at [facility] | | LAB | | | | [address];[place] | | | | | | [address] | | | | + + + + + + | Estimated | >60Comment: GFR <60: | mL/min/1.73m2 | EXTERNAL | | | GFR | CHRONIC KIDNEY DISEASE, | | LAB | | | | IF FOUND OVER A 3 MONTH | | | | | | PERIOD.GFR <15: KIDNEY | | | | | | FAILURE.FOR | | | | | | AMERICANS, MULTIPLY THE | | | | | | CALCULATED GFR BY | | | | | | 1.210.Testing performed | | | | | | at [facility];[address];[place] [address] | | | | + + + + + + + + | Specimen | + + | | + + + +---------+ + + | Performing | Address | City/State/Zipcode | Phone Number | | Organization | | | | + +---------+ + + | EXTERNAL LAB | | | | + +---------+ + + documented in this encounter Visit Diagnoses + + | Diagnosis | + + | Rectal cancer (HCC) Malignant neoplasm of rectum | + + documented in this encounter
--- OUTSIDE RECORDS SUMMARY | ~2019-02-11 | XMS | Encounter Summary ---
Demographics + + + | Address | [address] | | | [place] [address] | + + + | Home Phone | | + + + | Preferred Language | Unknown | + + + | Marital Status | Single | + + + | Gnosticism Affiliation | Unknown | + + + | Race | Unknown | + + + | Ethnic Group | Unknown | + + + Author + + + | Author | [facility] | | | and [place] | + + + | Organization | [facility] | | | and [...] Team Providers + +------+ + | Care Associate Professor Of Theatre Name | Role | Phone | + +------+ + PCP | Unavailable | + +------+ + Encounter Details +--------+ + + + + | Date | Type | Department | Care Team | Description | +--------+ + + + + | 09/06/ | Hospital | [facility] | Conversion | Rectal cancer (HCC) | | 2014 | Encounter | CENTER CV INTRA OP | Transaction, | | | | | [address] | Provider Unknown | | | | | [place], [place] | [phone] | | | | | [address] | | | | | | [phone] | Wood Kaufman MD | | | | | | [address] | | | | | | [place], [place] | | | | | | [address] | | | | | | | [...] + + documented as of this encounter Progress Notes Conversion Transaction, Provider Unknown - 09/06/2014 10:49 AM PDTFormatting of this note m ight be different from the original. Nurse Progress Note by Porsche Lane RN at 09/06/14 252 Author: Porsche Lane RN Service: (none) Author Type: Registered Nurse Filed: 09/06/14 1052 Date of Service: 09/06/141048 Status: Signed [facility]: Porsche A Lane, RN (Registered Nurse) Pt tolerated procedure well. Mediport in place to right chest CDI. Pt able to tolerate juic e and crackers without difficulty. Discharge educated provided to patient via appraisal manager se stout and pt verbalized understanding. Handout also provided. [facility] with friend to provide needed support. Porsche Lane RN docume nted in this encounter Plan of [...] [address] | | | | | | [place] [address] | | | | | | [phone] | | | | | | | | +--------+ + + + + | 02/21/ | Surgery | | Saleem Shore, | COLONOSCOPY | | 2018 | | | MD [address] | | | | | | [address] | | | | | | [place] [address] | | | | | | [phone] | | | | | | | | +--------+ + + + + documented as of this encounter Procedures + +--------+ + + + | Procedure Name | Priori | Date/Time | Associated Diagnosis | Comments | | | ty | | | | + +--------+ + + + | IR PLACEMENT PORT > | Routin | 09/06/2014 | | Results for this | | 5 YEARS | e | 10:25 AM | | procedure are in the | | | | PDT | | results section. | + +--------+ + + + | US GUIDED VASCULAR | Routin | 09/06/2014 | | Results for this | | ACCESS | e | 10:25 AM | | procedure are in the | | | | PDT | | results section. | + +--------+ + + + | PROTIME INR | Routin | 09/06/2014 | | Results for this | | | e | 9:04 AM | | procedure are in the | | | | PDT | | results section. | + +--------+ + + + | MRSA NAAT | Routin | 09/06/2014 | | Results for this | | | e | 8:45 AM | | procedure are in the | | | | PDT | | results section. | + +--------+ + + + documented in this encounter Results US Guided Vascular Access (09/06/2014 10:25 AM PDT) + + | Specimen | + + | | + + + + + | Narrative | Performed At | + + + | This Point of Care (POC) ultrasound image has been reviewed and | | | interpreted by the physician identified as the ordering physician in | | | the associated interpretation and report. | | + + + + + | Procedure Note | + + | Billy De La Garza - 11/10/2018 8:48 AM PDT This Point of Care (POC) ultrasound | | image has been reviewed andinterpreted by the physician identified as the ordering | | physician in theassociated interpretation and report. | | | + + IR Placement Port (09/06/2014 10:25 AM PDT) + + | Specimen | + + | | + + + + + | Impressions | Performed At | + + + | Successful placement of an ultrasound and fluoroscopic guided | | | right internal jugular central venous power injectable chest port. | | | Ready for immediate use. | | + + + + + + | Narrative | Performed At | + + + | IR PORT PLACEMENT dated 09/06/2014 9:21 AM CLINICAL DATA: rectal | | | cancer COMPARISON STUDIES: None. OPERATIONS: 1. Ultrasound | | | guided right internal jugular central venous access. 2. | | | Creation subcutaneous pocket right anterior chest wall. 3. | | | Placement single lumen power injectable chest port. PRIMARY | | | OPERATIONS RESEARCH GROUP MANAGER: Wood Kaufman MD, PhD, RPVI PROCEDURE: Informed | | | consent was obtained from the patient. Continuous cardiac monitoring | | | was performed throughout the procedure. Conscious sedation was | | | provided by the nursing staff during the procedure under my | | | supervision. Sedation time:25 minutes Fluoroscopy time:0.1 | | | minutes Radiation dose:2 mGy air kerma Sedation: 4 mg Versed IV, 200 | | | mcg Fentanyl IV Antibiotic: 2 g Ancef IV While supine on the | | | fluoroscopy table, the patient's right neck and chest were prepped | | | and draped in a sterile fashion. Lidocaine was used for local | | | anesthesia after which percutaneous ultrasound-guided access was | | | obtained via the internal jugular vein using micropuncture | | | technique. A microwire was replaced with a Amplatz wire. A site on | | | the anterior chest wall was selected. A transverse incision was made | | | through which blunt and sharp dissection were utilized in opening a | | | subcutaneous pocket. The pocket was copiously irrigated with | | | saline. The port was then placed within the pocket. A tunneling | | | device attached to the catheter tubing and the 6-Upper Sorbian Bard PowerPort | | | chest port was passed from the pocket to the access site on the neck | | | and the catheter at the access site was pulled through the | | | subcutaneous tissues into the port pocket where it was cut to length. | | | A peel-away introducer was placed through which the catheter was | | | inserted into the central venous system under fluoroscopic guidance. | | | The catheter tip was positioned at the high right atrium. The | | | port was then flushed with heparinized normal saline (100 units/ml). | | | Fluoroscopy was used to confirm satisfactory port and catheter | | | position after which the port was aspirated and flushed with normal | | | saline. The port pocket was then closed with 3-0 Vicryl subcutaneous | | | sutures followed by Dermabond. Dermabond was used to close the | | | small incision at the access site in the neck. The patient | | | tolerated the procedure well without complication. The patient was | | | returned to the short stay unit for routine post procedure | | | monitoring. FINDINGS: The right internal jugular vein is | | | widely patent. Ultrasound-guided access met without difficulty. | | | Fluoroscopy confirms the catheter tip is present at the high right | | | atrium. The port aspirates and flushes normally and may be used for | | | central venous access. | | + + + + + | Procedure Note | + + | Frederic, Rad Conversion - 11/10/2018 8:48 AM PDT IR PORT PLACEMENT dated 09/06/2014 9:21 | | AM CLINICAL DATA: rectal cancer COMPARISON STUDIES: None. OPERATIONS:1. Ultrasound | | guided right internal jugular central venous access.2. Creation subcutaneous pocket | | right anterior chest wall.3. Placement single lumen power injectable chest port. | | PRIMARY OPERATIONS RESEARCH GROUP MANAGER: Wood Kaufman MD, PhD, RPVI PROCEDURE: Informed consent was | | obtained from the patient. Continuous cardiac monitoring was performed throughout the | | procedure. Conscious sedation was provided by the nursing staff during the procedure | | under my supervision. Sedation time:25 minutesFluoroscopy time:0.1 minutesRadiation | | dose:2 mGy air kermaSedation: 4 mg Versed IV, 200 mcg Fentanyl IVAntibiotic: 2 g Ancef | | IV While supine on the fluoroscopy table, the patient's right neck and chest were | | prepped and draped in a sterile fashion. Lidocaine was used for local anesthesia after | | which percutaneous ultrasound-guided access was obtained via the internal jugular vein | | using micropuncture technique. A microwire was replaced with a Amplatz wire. A site on | | the anterior chest wall was selected. A transverse incision was made through which | | blunt and sharp dissection were utilized in opening a subcutaneous pocket. The pocket | | was copiously irrigated with saline. The port was then placed within the pocket. A | | tunneling device attached to the catheter tubing and the 6-Upper Sorbian Bard PowerPort chest | | port was passed from the pocket to the access site on the neck and the catheter at the | | access site was pulled through the subcutaneous tissues into the port pocket where it | | was cut to length. A peel-away introducer was placed through which the catheter was | | inserted into the central venous system under fluoroscopic guidance. The catheter tip | | was positioned at the high right atrium. The port was then flushed with heparinized | | normal saline (100 units/ml). Fluoroscopy was used to confirm satisfactory port and | | catheter position after which the port was aspirated and flushed with normal saline. | | The port pocket was then closed with 3-0 Vicryl subcutaneous sutures followed by | | Dermabond. Dermabond was used to close the small incision at the access site in the | | neck. The patient tolerated the procedure well without complication. The patient was | | returned to the short stay unit for routine post procedure monitoring. FINDINGS: The | | right internal jugular vein is widely patent. Ultrasound-guided access met without | | difficulty. Fluoroscopy confirms the catheter tip is present at the high right atrium. | | The port aspirates and flushes normally and may be used for central venous access. | | IMPRESSION: Successful placement of an ultrasound and fluoroscopic guided right | | internal jugular central venous power injectable chest port. Ready for immediate use. | | | |FINDINGS: | | | |The right internal jugular vein is widely patent. Ultrasound-guided access met without di fficulty. Fluoroscopy confirms the catheter tip is present at the high right atrium. The p ort aspirates and flushes normally | |and may be used for central venous | |access. | | | |IMPRESSION: | | | |Successful placement of an ultrasound and fluoroscopic guided right internal jugular centra l venous power injectable chest port. Ready for immediate use. | | | | | + + Protime INR (09/06/2014 9:04 AM PDT) + + + + + + | Component | Value | Ref Range | Performed | Pathologist | | | | | At | Signature | + + + + + + | INR | 1.0Comment: REFERENCE | | EXTERNAL | | | | RANGE:0.9 - 1.2 | | LAB | | | | NON-ANTICOAGULATED2.0 | | | | | | - 3.0 ALL OTHER | | | | | | THERAPEUTIC | | | | | | INDICATIONS2.5 - 3.5 | | | | | | MECHANICAL HEART VALVES, | | | | | | RECURRENT OR SYSTEMIC | | | | | | EMBOLISMTesting | | | | | | performed at [facility];[id number] | [address] | [address];[place], [place] | | | | | | [address] | | | | + + + + + + + + | Specimen | + + | Blood specimen | | (specimen) | + + + +---------+ + + | Performing | Address | City/State/Zipcode | Phone Number | | Organization | | | | + +---------+ + + | EXTERNAL LAB | | | | + +---------+ + + MRSA NAAT (09/06/2014 8:45 AM PDT) + + | Specimen | + + | | + + + + + | Narrative | Performed At | + + + | [facility](NOSE) | EXTERNAL LAB | | Testing performed at [facility];[address] [place] [address];[place] [address] MRSA PCR | | | NEGATIVE Testing performed at | | | [facility];[address] [place] [address];[place] [address] | | + + + + +---------+ [...] rectum | + + documented in this encounter"
--- OUTSIDE RECORDS SUMMARY | ~2019-02-11 | XMS | Encounter Summary ---
Demographics + + + | Address | [address] | | | [place] [address] | + + + | Home Phone | | + + + | Preferred Language | Unknown | + + + | Marital Status | Single | + + + | Advent Affiliation | Unknown | + + + | Race | Unknown | + + + | Ethnic Group | Unknown | + + + Author + + + | Author | [facility] | | | and [place] | + + + | Organization | [facility] | | | and [...] Team Providers + +------+ + | Care Project Archivist Name | Role | Phone | + +------+ + | Kris Hernandez | PCP | | + +------+ + Reason for Visit +--------+ + | Reason | Comments | +--------+ + | Other | schedule surgery | +--------+ + Encounter Details +--------+ + + + + | Date | Type | Department | Care Team | Description | +--------+ + + + + | 02/08/ | Telephone | [facility] | Saleem Shore, | Other (schedule | | 2019 | | GENERAL SURGERY [address] | [address] | surgery) | | | | [address] | [address] | | | | | [place], [place] | [place] [address] | | | | | [address] | [phone] | | | | | [phone] | | | +--------+ + + + + Social History + +-------+ +--------+------+ | Tobacco Use | Types | Packs/Day | Years | Date | | | | | Used | | + +-------+ +--------+------+ | Former Smoker | | | | | + +-------+ +--------+------+ + +---+---+---+ | Smokeless Tobacco: | | | | | Never Used | | | | + +---+---+---+ + + + | Sex Assigned at [...] + + documented as of this encounter Plan of Treatment +--------+ + + + + | Date | Type | Specialty | Care Team | Description | +--------+ + + + + | 02/21/ | Hospital | | Saleem Shore, | Rectal prolapse | | 2018 | Encounter | | MD [address] | | | | | | [address] | | | | | | [place] [address] | | | | | | [phone] | | | | | | | | +--------+ + + + + | 02/21/ | Surgery | | Saleem Shore, | COLONOSCOPY | | 2018 | | | MD [address] | | | | | | [address] | | | | | | [place] [address] | | | | | | [phone] | | | | | | | | +--------+ + + + + documented as of this encounter Visit Diagnoses Not on filedocumented in this encounter"
--- OUTSIDE RECORDS SUMMARY | ~2019-02-11 | XMS | Encounter Summary ---
Demographics + + + | Address | [address] | | | [place] [address] | + + + | Home Phone | | + + + | Preferred Language | Unknown | + + + | Marital Status | Single | + + + | Hinduism Affiliation | Unknown | + + + | Race | Unknown | + + + | Ethnic Group | Unknown | + + + Author + + + | Author | [facility] | | | and [place] | + + + | Organization | [facility] | | [...] Team Providers + +------+ + | Care Apprentice Technician Name | Role | Phone | + +------+ + | Kris Hernandez | PCP | | + +------+ + Reason for Visit +--------+ + | Reason | Comments | +--------+ + | Other | Established patient presents with c/o rectal prolapse. Patient | | | denies pain and bleeding but states he does have drainage. | +--------+ + Encounter Details +--------+---------+ + + + | Date | Type | Department | Care Team | Description | +--------+---------+ + + + | 01/18/ | Office | [facility] | Saleem Shore, | Rectal prolapse | | 2019 | Visit | GENERAL SURGERY [address] | [address] | (Primary Dx) | | | | [address] | [facility] [address] | | | | | [place], [place] | [place] [address] | | | | | [address] | [phone] | | | | | [phone] | | | +--------+---------+ + + + Social History + +-------+ [...] this encounter Last Filed Vital Signs + +---------+ + + | Vital Sign | Reading | Time Taken | Comments | + +---------+ + + | Blood Pressure | 126/64 | 01/18/2019 2:59 PM | | | | | PDT | | + +---------+ + + | Pulse | 88 | 01/18/2019 2:59 PM | | | | | PDT | | + +---------+ + + | Temperature | - | - | | + +---------+ + + | Respiratory Rate | 20 | 01/18/2019 2:59 PM | | | | | PDT | | + +---------+ + + | Oxygen Saturation | - | - | | + +---------+ + + | Inhaled Oxygen | - | - | | | Concentration | | | | + +---------+ + + | Weight | - | - | | + +---------+ + + | Height | - | - | | + +---------+ + + | Body Mass Index | - | - | | + +---------+ + + documented in this encounter Progress Notes Saleem Shore MD - 01/18/2019 2:30 PM PDTFormatting of this note might be different f rom the original. Service: Colorectal Surgery History & Physical ID: Jose Eaton; DATE OF VISIT: 01/18/2019 History Obtained From: History obtained from chart review and the patient. CHIEF COMPLAINT: rectal prolapse HISTORY OF PRESENT ILLNESS The patient is a 68 y.o. male who is a known patient to our clinic patient has a history of low rectal cancer and underwent a low anterior resection with a rectal anastomosis. Procedure(s): Robotic Ultra-low Anterior resection, total mesorectal excision, complete mo bilization of the splenic flexure, Rigid Proctoscopy, Hand-sewn coloanal pull through and cr eation of a diverting loop ileostomy. In December 2014. Patient is doing well and states that he did not have a colonoscopy follow-up. But he is h ere complaining of a prolapse in his rectum. He said this is asymptomatic to him he denies bleeding or pain and also denies fecal incontinence. He says that this reduces spontaneousl y after he has a bowel movement. Active comorbid conditions include: - dysrhythmias - CHF - seizures - anemia - arthritis REVIEW OF SYSTEMS Review of Systems Musculoskeletal: Positive for arthritis. Neurological: Positive for seizures. All other systems reviewed and are negative. Past Medical History: Diagnosis Date Acute kidney injury (HCC) 01/12/2015 Arthritis Hyperlipidemia Joint pain Rectal cancer (HCC) 09/06/2014 Seizures (HCC) 06/10/2018 Past Surgical History: Procedure Laterality Date COLONOSCOPY KNEE SURGERY Right OTHER SURGICAL HISTORY 07/11/2015 ILEOSTOMY REVISION - Procedure: ILEOSTOMY - TAKE DOWN OR REVISION; Surgeon: Saleem myrick MD; Location: [facility] MAIN OR; Service: General; Laterality: N/A; OTHER SURGICAL HISTORY 04/30/2015 FLEXIBLE SIGMOIDOSCOPY - Procedure: SIGMOIDOSCOPY - FLEXIBLE; Surgeon: Saleem Shore MD; Location: [facility] ENDOSCOPY; Service: General; Laterality: N/A; OTHER SURGICAL HISTORY 01/17/2015 FLEXIBLE BRONCHOSCOPY - Procedure: BRONCHOSCOPY - FLEXIBLE; Surgeon: Lui Lindsey MD; Location: [facility] BEDSIDE PROCEDURE; Service: Crm Functional Analyst; Laterality: N/A; OTHER SURGICAL HISTORY 01/03/2015 ROBOTIC ASSISTED LAPAROSCOPIC COLON RESECTION - COLOANAL - Procedure: ROBOTIC ASSISTED LAP AROSCOPIC COLON RESECTION - COLOANAL; Surgeon: Saleem Shore MD; Location: [facility] MAIN O R; Service: General; Laterality: N/A; coloanal pull through OTHER SURGICAL HISTORY 01/03/2015 FLEXIBLE SIGMOIDOSCOPY - Procedure: SIGMOIDOSCOPY - FLEXIBLE; Surgeon: Saleem Shore MD; Location: [facility] MAIN OR; Service: General; Laterality: N/A; OTHER SURGICAL HISTORY 01/03/2015 SIGMOIDOSCOPY - RIGID - Procedure: SIGMOIDOSCOPY - RIGID; Surgeon: Saleem Shore MD; Location: [facility] MAIN OR; Service: General; Laterality: N/A; OTHER SURGICAL HISTORY 12/25/2014 FLEXIBLE SIGMOIDOSCOPY - Procedure: SIGMOIDOSCOPY - FLEXIBLE; Surgeon: Saleem Shore MD; Location: [facility] ENDOSCOPY; Service: General; Laterality: N/A; OTHER SURGICAL HISTORY 08/21/2014 FLEXIBLE SIGMOIDOSCOPY - Procedure: SIGMOIDOSCOPY - FLEXIBLE; Surgeon: Saleem Shore MD; Location: [facility] ENDOSCOPY; Service: General; Laterality: N/A; TOTAL HIP ARTHROPLASTY Bilateral Allergies not on file (Not in a hospital admission) No family history on file. Social History Tobacco Use Smoking Status Former Smoker Smokeless Tobacco Never Used Social History Substance and Sexual Activity Alcohol Use Not on file PHYSICAL EXAM BP 126/64 | Pulse 88 | Resp 20 Wt. Admission: Wt. Current: There is no height or weight on file to calculate BMI. Physical Exam Constitutional: He is oriented to person, place, and time. He appears well-developed and we ll-nourished. No distress. HENT: Head: Atraumatic. Eyes: Pupils are equal, round, and reactive to light. Neck: Neck supple. Cardiovascular: Normal rate. Pulmonary/Chest: Effort normal. No respiratory distress. Abdominal: Soft. He exhibits no distension. There is no tenderness. Neurological: He is alert and oriented to person, place, and time. Skin: Skin is warm. He is not diaphoretic. Psychiatric: He has a normal mood and affect. Nursing note and vitals reviewed. Labs: No results for input(s): WBC, HGB, HCT, PLT, MCV in the last 72 hours. Invalid input(s): BANDSPCT No results for input(s): NA, K, CL, CO2, BUN, CREA, CALCIUM, MG, PHOS in the last 72 hours. ASSESSMENT & PLAN 1. This is a very pleasant 68-year-old gentleman who is status post pelvic radiation and low anterior resection for a low rectal cancer is presenting with a full-thickness rectal pr olapse at [facility]. Discussed with him the findings and based on the fact that he is asymptomatic with this will plan on nonoperative management of it at this point but I will s chedule him for a colonoscopy due to history of cancer and needing a follow-up for that. Saleem Shore MD 15:21; 01/18/2019 cc: NEIL Nolan documented in this encounter Plan of Treatment +--------+ + + + + | Date | Type | Specialty | Care Team | Description | +--------+ + + + + | 02/21/ | Hospital | | Saleem Shore, | Rectal prolapse | | 2018 | Encounter | | MD Rebecca [address] | | | | | | [facility] [address] | | | | | | [place] [address] | | | | | | [phone] | | | | | | | | +--------+ + + + + | 02/21/ | Surgery | | Saleem Shore, | COLONOSCOPY | | 2018 | | | [address] | | | | | | [address] | | | | | | [place] [address] | | | | | | [phone] | | | | | | | | +--------+ + + + + documented as of this encounter Visit Diagnoses + + | Diagnosis | + + | Rectal prolapse - Primary | + + documented in this encounter"
--- OUTSIDE RECORDS SUMMARY | ~2019-02-11 | XMS | Encounter Summary ---
Demographics + + + | Address | [address] | | | [place] [address] | + + + | Home Phone | | + + + | Preferred Language | Unknown | + + + | Marital Status | Single | + + + | Episcopal Affiliation | Unknown | + + + | Race | Unknown | + + + | Ethnic Group | Unknown | + + + Author + + + | Author | [facility] | | | and [place] | + + + | Organization | [facility] | | | and [...] Team Providers + +------+ + | Care Glass Beveller Name | Role | Phone | + +------+ + PCP | Unavailable | + +------+ + Encounter Details +--------+ + + + + | Date | Type | Department | Care Team | Description | +--------+ + + + + | 12/25/ | Hospital | [facility] | Saleem Shore, | Rectal cancer (HCC) | | 2014 | Encounter | [facility] | [address] | | | | | INTRA OP [address] | [address] | | | | | [address] [place], [place] | [place] [address] | | | | | [address] | [phone] | | | | | [phone] | | | +--------+ + + + [...] | Rectal prolapse | | 2019 | Encounter | | [address] | | | | | | [address] | | | | | | [place] [address] | | | | | | [phone] | | | | | | | | +--------+ + + + + | 02/21/ | Surgery | | Saleem Shore, | COLONOSCOPY | | 2019 | | | MD [address] | | | | | | [address] | | | | | | [place] [address] | | | | | | [phone] | | | | | | | | +--------+ + + + + documented as of this encounter Visit Diagnoses + + | Diagnosis | + + | Rectal cancer (HCC) Malignant neoplasm of rectum | + + documented in this encounter"
--- OUTSIDE RECORDS SUMMARY | ~2019-02-11 | XMS | Clinical Summary ---
Demographics + + + | Address | [address] | | | [place] [address] | + + + | Home Phone | | + + + | Preferred Language | Unknown | + + + | Marital Status | Single | + + + | Baptism Affiliation | Unknown | + + + | Race | Unknown | + + + | Ethnic Group | Unknown | + + + Author + + + | Author | [facility] (Historical as of | | | 11-11-18) | + + + | Organization | [facility] (Historical as of | | | 11-11-18) | + + + | Address | Unknown | + + + | Phone | Unavailable | + + + Support + + +---------+ + | Name | Relationship | Address | Phone | + + +---------+ + | Detailed,Message | ECON | Unknown | | + + +---------+ + | Liborio Escobar | ECON | Unknown | | + + +---------+ + Care Team Providers + +------+ + | Care Route Delivery Supervisor Name | Role | Phone | + +------+ + | Kris Hernandez PA-C | PP | | + +------+ + Allergies + + + + + + | Active Allergy | Reactions | Severity | Noted | Comments | | | | | Date | | + + + + + + | Other-Environmental | Itching | Medium | 05/20/20 | | | | | | 15 | | + + + + + + Current Medications + + +--------+---------+------+------+-------+ | Prescription | Sig. | Disp. | Refills | Star | End | Statu | | | | | | t | Date | s | | | | | | Date | | | + + +--------+---------+------+------+-------+ | loperamide | Take 2 mg by mouth 4 | | | | | Activ | | (IMODIUM A-D) 2 MG | (four) times daily | | | | | e | | tablet | as needed for | | | | | | | | Diarrhea. | | | | | | + + +--------+---------+------+------+-------+ | aspirin 81 MG EC | Take 1 tablet by | 30 | 1 | 03/2 | 03/ | Activ | | tablet | mouth daily with | tablet | | 12/15 | 11/14 | e | | | breakfast. | | | 19 | 20 | | + + +--------+---------+------+------+-------+ | levETIRAcetam | Take 1 tablet by | 60 | 1 | 03/2 | 03/2 | Activ | | (KEPPRA) 500 MG | mouth 2 (two) times | tablet | | 8/20 | 720 | e | | tablet | daily. | | | 19 | 20 | | + + +--------+---------+------+------+-------+ | pravastatin | Take 1 tablet by | 30 | 1 | 03/2 | | Activ | | (PRAVACHOL) 40 MG | mouth nightly. | tablet | | 8/20 | | e | | tablet | | | | 19 | | | + + +--------+---------+------+------+-------+ | thiamine (VITAMIN | Take 1 tablet by | 30 | 1 | 03/2 | 03/2 | Activ | | B-1) 100 MG | mouth daily. | tablet | | 8/20 | 7/20 | e | | tabletIndications: | | | | 19 | 20 | | | ETOH abuse | | | | | | | + + +--------+---------+------+------+-------+ | polycarbophil | Take 1 tablet by | 60 | 1 | / | 05/27 | Activ | | calcium (FIBERCON) | mouth 2 (two) times | tablet | | 8/20 | 7/20 | e | | 625 MG tablet | daily as needed | | | 19 | 20 | | | | (Constipation no | | | | | | | | stools for 2 days). | | | | | | + + +--------+---------+------+------+-------+ Active Problems + + + | Problem | Noted Date | + + + | Chronic systolic congestive heart failure (HCC) | 06/17/2018 | + + + | Malignant neoplasm of colon (HCC) | 06/10/2018 | + + + + + | Overview: S/p surgical resection and ileostomy followed by | | ileostomy reversal Overview: lower rectal area per report, needs | | additional imaging being followed by general surgeon at this time | | 07/2014Dx name changed by system update 12/17/2016 | |general surgeon at this time 07/2014 | | | |Dx name changed by system update 12/17/2016 | + + + + + | Seizures (HCC) | 06/10/2018 | + + + | ETOH abuse | 06/10/2018 | + + + | Chronic diarrhea | 06/09/2018 | + + + | Ileostomy in place | 01/25/2015 | + + + | E coli bacteremia | 01/25/2015 | + + + | Protein-calorie malnutrition, severe | 01/24/2015 | + + + | Physical deconditioning | 01/24/2015 | + + + | Chronic atrial fibrillation (HCC) | 01/24/2015 | + + + | Acute pancreatitis | 01/16/2015 | + + + | Lactic acidosis | 01/12/2015 | + + + | Acute respiratory failure with hypoxia (HCC) | 01/12/2015 | + + + | Aspiration pneumonia (HCC) | 01/12/2015 | + + + | Acute kidney injury (HCC) | 01/12/2015 | + + + | Severe sepsis (HCC) | 01/11/2015 | + + + | Paroxysmal atrial fibrillation (HCC) | 01/06/2015 | + + + | Persistent atrial fibrillation (HCC) | 01/05/2015 | + + + | Hyperlipidemia | 01/05/2015 | + + + | Abdominal pain | 01/05/2015 | + + + | Anemia | 01/05/2015 | + + + | Hyposmolality and/or hyponatremia | 01/05/2015 | + + + | Rectal cancer | 08/16/2014 | + + + | Encounter for antineoplastic chemotherapy | 08/16/2014 | + + + Resolved Problems + + + + | Problem | Noted | Resolved | | | Date | Date | + + + + | Mass of brain | 06/11/19 | | | | 19 | 9 | + + + + | Delirium | 06/09/19 | | | | 19 | 9 | + + + + | Encephalitis | | | | | | 9 | + + + + Immunizations + + + + | Name | Dates Previously Given | Next Due | + + + + | INFLUENZA PF, | 06/11/2018 | | | QUADRIVALENT | | | | (PED/ADOL/ADULT) | | | + + + + | Pneumococcal | 06/11/2018 | | | Polysaccharide | | | | 23-valent | | | + + + + Family History + +------+--------+ + | Relation | Name | Status | Comments | + +------+--------+ + | Father | | Alive | | + +------+--------+ + | Mother | | Alive | | + +------+--------+ + | Son | | Alive | | + +------+--------+ + | Son | | Alive | | + +------+--------+ + | Son | | Alive | | + +------+--------+ + Social History + + + +--------+ + | Tobacco Use | Types | Packs/Day | Years | Date | | | | | Used | | + + + +--------+ + | Former Smoker | Cigarettes | | 33 | Quit: 03/28/1989 | + + + +--------+ + + +---+---+---+ | Smokeless Tobacco: | | | | | Never Used | | | | + +---+---+---+ + + +---------+ + | Alcohol Use | Drinks/We | oz/Week | Comments | | | ek | | | + + +---------+ + | Yes | 2 Cans | 9.6 | | | | of beer | | | | | 14 Shots | | | | | of liquor | | | | | 0 | | | | | Glasses | | | | | of wine | | | + + +---------+ + + + + | Sex Assigned at | Date Recorded | | | | + + + | Not on file | | + + + Last Filed Vital Signs + + + + | Vital Sign | Reading | Time Taken | + + + + | Blood Pressure | 88/50 | 06/22/2018 7:47 AM PDT | + + + + | Pulse | 64 | 06/22/2018 7:47 AM PDT | + + + + | Temperature | 36.7 C (98 F) | 06/22/2018 7:47 AM PDT | + + + + | Respiratory Rate | 16 | 06/22/2018 7:47 AM PDT | + + + + | Oxygen Saturation | 99% | 06/22/2018 7:47 AM PDT | + + + + | Inhaled Oxygen | - | - | | Concentration | | | + + + + | Weight | 61.1 kg (134 lb 11.2 | 06/20/2018 3:57 AM PDT | | | oz) | | + + + + | Height | 162.6 cm (5' 4") | 06/09/2018 9:17 PM PDT | + + + + | Body Mass Index | 23.12 | 06/20/2018 3:57 AM PDT | + + + + Plan of Treatment + + + + + | Health Maintenance | Due Date | Last Done | Comments | + + + + + | Vaccine: | | | | | Dtap/Tdap/Td (1 - | 8 | | | | Tdap) | | | | + + + + + | Colon Cancer | | | | | Screening | 9 | | | | (Colonoscopy) | | | | + + + + + | Vaccine: Zoster (1 | | | | | of 2) | 9 | | | + + + + + | Vaccine: Influenza | | 06/11/2018 | | | (#1) | 9 | | | + + + + + | Vaccine: | | 06/11/2018 | | | Pneumococcal 65+ | 0 | | | | High/Highest Risk (2 | | | | | of 2 - PCV13) | | | | + + + + + Results Not on filefrom Last 3 Months Insurance + +--------+ +------+-------+ + | Payer | Benefi | Subscriber | Type | Phone | Address | | | t Plan | ID | | | | | | / | | | | | | | Group | | | | | + +--------+ +------+-------+ + | MEDICARE | MEDICA | [id number] | | | [address] | | | RE | | | | [place] [address] | | | IP-OP | | | | | + +--------+ +------+-------+ + | MEDICAID | [employer] | [id number] | | | [address] | | | N | | | | [place], [place] | | | [place] | | | | [address] | | | [employer] | | | | | + +--------+ +------+-------+ + + +--------+ +--------+ + + | Guarantor Name | Accoun | Relation to | Date | Phone | Billing Address | | | t Type | Patient | of | | | | | | | | | | + +--------+ +--------+ + + | JOSE EATON | Person | Self [birth year] Home: | [address] | | | al/Fam | | [phone] | [phone] [place] [address] | | | lee | | | [phone] | | + +--------+ +--------+ + +
--- OUTSIDE RECORDS SUMMARY | ~2019-02-11 | XMS | Encounter Summary ---
Demographics + + + | Address | [address] | | | [place] [address] | + + + | Home Phone | | + + + | Preferred Language | Unknown | + + + | Marital Status | Single | + + + | Tenriism Affiliation | Unknown | + + + | Race | Unknown | + + + | Ethnic Group | Unknown | + + + Author + + + | Author | [facility] | | | and [place] | + + + | Organization | [facility] | | | [...] Team Providers + +------+ + | Care Foxing Painter Name | Role | Phone | + +------+ + PCP | Unavailable | + +------+ + Encounter Details +--------+ + + + + | Date | Type | Department | Care Team | Description | +--------+ + + + + | 12/25/ | Hospital | [facility] | Saleem Shore, | Rectal cancer (HCC) | | 2014 | Encounter | [facility] | [address] | | | | | INTRA [address] | [address] | | | | | [address] [place], [place] | [place] [address] | | | | | [address] | [phone] | | | | | [phone] | | | +--------+ + + + [...] [address] | | | | | | [place] [address] | | | | | | [phone] | | | | | | | | +--------+ + + + + | 02/21/ | Surgery | | Saleem Shore, | COLONOSCOPY | | 2019 | | | MD [address] | | | | | | [address] | | | | | | [place] [address] | | | | | | [phone] | | | | | | | | +--------+ + + + + documented as of this encounter Visit Diagnoses + + | Diagnosis | + + | Rectal cancer (HCC) Malignant neoplasm of rectum | + + documented in this encounter"
--- OUTSIDE RECORDS SUMMARY | ~2019-02-11 | XMS | Encounter Summary ---
Demographics + + + | Address | [address] | | | [place] [address] | + + + | Home Phone | | + + + | Preferred Language | Unknown | + + + | Marital Status | Single | + + + | Denominational Affiliation | Unknown | + + + | Race | Unknown | + + + | Ethnic Group | Unknown | + + + Author + + + | Author | [facility] | | | and [place] | + + + | Organization | [facility] | | [...] Team Providers + +------+ + | Care Barrel Roller Name | Role | Phone | + +------+ + PCP | Unavailable | + +------+ + Encounter Details +--------+ + + + + | Date | Type | Department | Care Team | Description | +--------+ + + + + | 01/01/ | Hospital | [facility] | Conversion | Ostomy nurse | | 2015 | Encounter | [facility] | Transaction, | consultation | | | | [facility] [address] | Provider Unknown | | | | | [place], [place] | [phone] | | | | | [address] | | | | | | [phone] | | | +--------+ + + + [...] Progress Notes Conversion Transaction, Provider Unknown - 01/01/2015 1:10 PM PDTFormatting of this note m ight be different from the original. Progress Notes by Susan Bennett RN at 01/01/15 8679 Author: Susan Bennett RN Service: (none) Author Type: Registered Nurse Filed: 01/01/15 7820 Encounter Date: 01/01/2015 Status: Addendum Non Destructive Evaluation Specialist: Susan Bennett RN (Registered Nurse) Related Notes: Original Note by Susan Bennett RN (Registered Nurse) filed at 01/01/15 9834 Pre. Op teaching done. Ileostomy packet reviewed and given to patient. Determined surgical procedure by Dr. Shore's chart notes as a robotic laparoscopic colo n resection Coloanal. I was not notified is patient will be having an Ileostomy or a colosto my so I marked him for both possibilities. Patients belt line identified. Rectus muscle, pubic bone, iliac crest, and umbilicus landmarks identified. Abdominal folds, creases, scars and areas of radiation therapy avoided. Stoma marked in right lower quadrant for Ileostomy and left lower quadrant for colostomy. 2 inch clearance given to above landmarks. Site within patient visual field on superior aspect of abdominal pannus. Area cleansed with betadine solution times three. Area marked with "Sharpie" permanent marker times three alternating with skin sealant. Teg aderm placed over site. county sheriff here with patient for consultation and patient questions answered with help of garage worker. I spent 60 minutes with this patient in consultation and examination. SUSAN NGUYEN, RN, CWOCN docume lintoned in this encounter Plan of Treatment +--------+ + + + + | Date | Type | Specialty | Care Team | Description | +--------+ + + + + | 02/21/ | Hospital | | Saleem Shore, | Rectal prolapse | | 2018 | Encounter | | MD Rebecca BRUNO | | | | | | [facility] [address] | | | | | | [place] [address] | | | | | | [phone] | | | | | | | | +--------+ + + + + | 02/21/ | Surgery | | Saleem Shore, | COLONOSCOPY | | 2018 | | | MD Rebecca BRUNO | | | | | | [facility] [address] | | | | | | [place] [address] | | | | | | [phone] | | | | | | | | +--------+ + + + + documented as of this encounter Visit Diagnoses + + | Diagnosis | + + | Ostomy nurse consultation | + + documented in this encounter
--- OUTSIDE RECORDS SUMMARY | ~2019-02-11 | XMS | Encounter Summary ---
Demographics + + + | Address | [address] | | | [place] [address] | + + + | Home Phone | | + + + | Preferred Language | Unknown | + + + | Marital Status | Single | + + + | Hindu Affiliation | Unknown | + + + | Race | Unknown | + + + | Ethnic Group | Unknown | + + + Author + + + | Author | [facility] | | | and [place] | + + + | Organization | [facility] | | [...] Team Providers + +------+ + | Care Lithographic Stripper Name | Role | Phone | + +------+ + PCP | Unavailable | + +------+ + Encounter Details +--------+ + + + + | Date | Type | Department | Care Team | Description | +--------+ + + + + | 01/03/ | Hospital | [facility] | Saleem Shore, | Rectal cancer (HCC); | | 2014 - | Encounter | [facility] | [address] | Persistent atrial | | | | INTENSIVE CARE UNIT | [address] | fibrillation ([facility]); | | 01/25/ | | [address] | [place] [address] | Hyperlipidemia; | | 2015 | | [place], [place] | [phone] | Hyposmolality and/or | | | | [address] | | hyponatremia; Acute | | | | [phone] | | respiratory failure | | | | | | with hypoxia ([facility]) | +--------+ + + + + Social [...] + + documented as of this encounter Discharge Summaries Niesha Duarte MD - 01/25/2015 6:56 AM PDT Discharge Summaries by Niesha Duarte MD at 01/25/15655 Author: Niesha Duarte MD Service: [facility] Director Author Type: Physician Filed: 01/25/1517 Date of Service: 01/25/15655 Status: Signed Statistical Reporting Analyst: Niesha Duarte MD (Physician) [facility] Service: Speech And Hearing Clinic Director Discharge Summary Jose Eaton 64 y.o. Date of Admission: 01/03/2015 Date of Discharge: 01/25/2015 Treatment Team: Consulting Physician: Amy Simons MD Consulting Physician: Mario Crawford MD Admitting Provider: Saleem Shore MD ADMITTING DIAGNOSES Rectal cancer Aspiration pneumonia Hyperlipidemia Abdominal pain Anemia Protein-calorie malnutrition, severe Physical deconditioning Chronic atrial fibrillation DISCHARGE DIAGNOSES Aspiration pneumonia Rectal cancer Hyperlipidemia Abdominal pain Anemia Acute pancreatitis Protein-calorie malnutrition, severe Physical deconditioning Chronic atrial fibrillation BRIEF HISTORY OF PRESENTATION Patient Summary: Pt is a 64 y/o Burkinan speaking M with past medical history significant for hyperlipidemia, rectal cancer, on chemotherapy with 5-FU . 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 . While on the floor the pt had some episodes of n/v, tachycardia, temp spikes, episodes of afib, was diagnosed with SBO. Pt complained of th irst and was found drinking water out of the sink despite being educated regarding his NPO s tatus, it is thought that he aspirated. 01/11/15 a RAT was called as the pt was hypotensive & tachycardic, he was given 5L crystall oids and his BP improved but he became tachypneic. Stat blood gas showed metabolic acidosis and lactic acidosis. Pt showed signs of respiratory fatigue with increasing O2 requirement a nd was subsequently intubated, given 2 pushes of bicarb. Post-intubation CXR revealed R-side d pneumonia, he was started on IV Zosyn plus vancomyin. HOSPITAL COURSE 01/12: Pt transferred to ICU. RIJ, arterial line placed. 01/13: Pt hypotensive requiring pressor. Echo showed reduced EF. Started on dobutamine w ith improvement of BP. Developed Afib with RVR. Started on digoxin, converted to sinus rhyth m. 01/15: Off pressors. Pt went back into Afib. Failed SBT. Diuresed with Lasix. Continued on dobutamine. 01/16: Extubated, on 2L O2. Started on Precedex d/t agitation & tachypnea. Complaining o f RUQ abd pain & splinting while breathing. Acute pancreatitis. 01/18: reintubated and bronch w LLL mucus plug 10:: right pigtail placed for effusion 01/21: extubated 01/24: chest tube pulled, improving pain from pancreatitis, enteral feeding started. Imaging Studies: X-ray Abdomen Ap 01/24/2015 FINDINGS/ IMPRESSION: Weighted feeding tube looping within the stomach with t he tip in the fundus of the stomach. Nonspecific, nonobstructive bowel gas pattern. Electr onically signed by Michael Nixon MD on 01/24/2015 11:19 AM X-ray Abdomen Ap 01/24/2015 FINDINGS/ IMPRESSION: Weighted feeding tube tip within the fundus of the stom ach. Nonspecific, nonobstructive bowel gas pattern. Moderate degeneration throughout the l umbar spine. Vertebral body height loss of the lower thoracic spine is unchanged. Electroni dee dee signed by Michael Nixon MD on 01/24/2015 11:17 AM X-ray Abdomen 1 View 01/12/2015 There are a few mildly dilated small bowel loops suggesting ileus or developin g obstruction. RADIA Electronically signed by Toribio Gallo MD on Jan 12 2015 12:18AM Referring Provider Line: [phone] ID: [id number] Xr Abdomen For Feeding Tube Postion 01/11/2015 1. Nasogastric catheter in the stomach. X-ray Abdomen Acute Series 01/17/2015 1. Worsening infiltrate, with increasing small to moderate right pleural effu alex. 2. Persistent mild infiltrate left lung base. 3. Persistent mild cardiac enlargement . 4. Unchanged lines. X-ray Abdomen Acute Series 01/11/2015 1. Probable high-grade mid or distal small bowel obstruction. 2. Possible as cites. 3. A catheter overlies the abdomen with an uncertain position, by radiography alone. Ct Chest Without Contrast 01/19/2015 1. Worsening dense infiltrative changes throughout most of the right lung, wi th increasing small to moderate right pleural effusion and persistent minimal left effusion. 2. Minimal left basilar atelectasis or infiltrate, subtly increased. 3. No adenopathy. 4. Stable tubes and lines. Mri Abdomen With And Without Contrast 01/23/2015 1. No evidence of pancreatitis is found. 2. There is a probable simple cyst along the body of the pancreas. 3. There is a small amount of right-sided pleural fluid. En hancement of the right pleural lining may reflect some inflammation. 4. Pneumonia and atele ctasis of the right middle and lower lobes. Electronically signed by Liborio Gregorio MD o n 01/23/2015 3:23 PM X-ray Chest 1 View 01/25/2015 1. Improving right-sided pneumonia, with interval removal of right pleural pi gtail drainage catheter. 2. Unchanged small right pleural effusion. 3. Unchanged right-s ided chest port and catheter. 7: 33 AM X-ray Chest 1 View 01/24/2015 1. Right lung consolidation persists, similar to the prior examination. 2. R ight pigtail catheter with improved angulation/kinking at the level of diaphragm. Montanai dee dee signed by Michael Nixon MD on 01/24/2015 6:38 AM X-ray Chest 1 View 01/23/2015 1. Right pigtail catheter overlying the pleural space with a kink at the mid thorax. 2. Unchanged consolidation of the right lung predominantly at the right lung base. X-ray Chest 1 View 01/22/2015 1. Small right apical pneumothorax measuring 6 mm from the chest wall. 2. Pe rsistent right lung consolidation, unchanged from the prior exam. X-ray Chest 1 View 01/21/2015 1. Tubes and lines are in expected position. 2. Unchanged consolidation/airsp isaac disease of the right lung base consistent with infection or aspiration. 3. No pneumothor ax. X-ray Chest Ap Only 01/20/2015 1. Pigtail catheter seen in the right pleural space. There is a possible kink at the chest wall. 2. Mildly improved opacity in the right hemithorax. 3. Right IJ catheter removed. Other tubes and lines appear stable. RADIA Electronically signed by Bjorn caballero MD on Jan 20 2015 4:36AM Referring Provider Line: [phone] ID: [id number] X-ray Chest 1 View 01/19/2015 1. Stable appearance of the chest. X-ray Chest Ap Only 01/18/2015 1. Dense bronchopneumonia persists throughout the right lung. 2. Small bilat eral pleural effusions noted. 3. Endotracheal tube, nasogastric tube and right-sided centra l line are in satisfactory position. 4. No evidence of pneumothorax post bronchoscopy. Isabel ctronically signed by James Dalton DO on 01/18/2015 6:59 AM X-ray Chest Ap Only 01/17/2015 1. Tubes and lines in appropriate position. 2. No pneumothorax. 3. Persiste nt right lung infiltrates and left basilar infiltrate, with small bilateral pleural effusion s. X-ray Chest 1 View 01/16/2015 1. Stable extensive airspace disease within the right lung. 2. Small bilater al pleural effusions with left basilar subsegmental atelectasis. X-ray Chest 1 View 01/15/2015 1. Stable extensive airspace disease in right mid and lower lung. 2. Stable mild left basal atelectasis and/or airspace disease. X-ray Chest 1 View 01/15/2015 1. Stable extensive airspace disease throughout the right lung. 2. Small raul ateral pleural effusions with mild left basilar subsegmental atelectasis. Electronically si gned by Arturo Mariano DO on 01/15/2015 7:12 AM X-ray Chest 1 View 01/13/2015 1. Stable right perihilar and basilar airspace disease. 2. Mild stable left basilar opacity to likely represent subsegmental atelectasis. X-ray Chest 1 View 01/12/2015 1. Right central catheter tip at the cavoatrial junction. Support devices ot herwise unchanged. 2.Low lung volumes with stable extensive right lung airspace opacities. RADIA Electronically signed by Nba Thomason MD on Jan 12 2015 5:22AM Referring Pro vider Line: [phone] ID: [id number] X-ray Chest 1 View 01/12/2015 1. Right lower lobe airspace consolidation. 2. Satisfactory endotracheal and nasogastric tube placement. RADIA Electronically signed by Toribio Gallo MD on Jan 12 2015 12:19AM Referring Provider Line: [phone] ID: [id number] X-ray Chest 1 View 01/12/2015 Right lower lobe airspace consolidation. RADIA Electronically signed by Per Gallo MD on Jan 12 2015 12:01AM Referring Provider Line: [phone] ID: [id number] Ultrasound Abdomen Limited 01/16/2015 1. Contracted gallbladder with the gallbladder wall thickening, sludge, and p ositive sonographic Brar sign. Acute cholecystitis is not excluded. 2. Small 4 mm polyp w ithin the gallbladder. Nm Hepatobiliary With Cck 01/17/2015 1. Significant cholestasis with persistent hepatic uptake seen 4 hours post i njection. 2. Gallbladder not initially seen at 60 minutes but does fill 4 hours post Cholet ec injection suggesting that the cystic duct is patent. Ct Chest Abdomen Pelvis With Iv Contrast 01/12/2015 1. Extensive right lung pneumonia with small parapneumonic effusion. 2. Mild cardiomegaly and severe coronary to ossifications. 3. Generalized anasarca, commonly seen i n septic patient's. There are several bubbles of gas in the subcutaneous tissues of uncertai n etiology but possibly iatrogenic. Correlate to exclude gas-forming soft tissue infection. 4. Fluid-filled proximal small bowel with relatively decompressed distal small bowel proxima l to the ileostomy. Favor normal variant/ileus over bowel obstruction. Gastroenteritis /radi ation enteritis could have a similar picture. RADIA Electronically signed by Nba cruz MD on Jan 12 2015 6:44AM Referring Provider Line: [phone] ID: [id number] Echo Cardiac Adult Complete 01/12/2015 1. Overall left ventricular systolic function is moderately impaired with, an EF between 35 - 40 %. 2. Pseudonormal LV diastolic filling pattern, consistent with elevated LA pressure and moderate dysfunction (Grade II). 3. The right ventricle is normal in size. 4. The right ventricular systolic function is impaired. 5. Moderate mitral regurgitation is present. 6. Fqta-qj-leftvoef tricuspid regurgitation present. 7. There is mild pulmonary hyp ertension. Echo Cardiac Adult Complete 01/05/2015 1. Overall left ventricular systolic function is normal with, an EF between 65 - 70 %. 2. There is mild aortic valve sclerosis without stenosis. 3. Mild mitral regurgitat ion is present. 4. The right ventricular systolic pressure (pulmonary artery systolic pressu re), as measured by Doppler, is 30.95mmHg. PAST MEDICAL HISTORY Past Medical History Diagnosis Date Arthritis Hyperlipidemia Joint pain Rectal cancer (HCC) 09/06/2014 Acute kidney injury (HCC) 01/12/2015 PAST SURGICAL HISTORY Past Surgical History Procedure Laterality Date Colonoscopy Flexible sigmoidoscopy N/A 08/21/2014 Procedure: SIGMOIDOSCOPY - FLEXIBLE; Surgeon: Saleem Shore MD; Location: [facility]; Service: General; Laterality: N/A; Total hip arthroplasty Bilateral Knee surgery Right Flexible sigmoidoscopy N/A 12/25/2014 Procedure: SIGMOIDOSCOPY - FLEXIBLE; Surgeon: Saleem Shore MD; Location: [facility]; Service: General; Laterality: N/A; Robotic assisted laparoscopic colon resection - coloanal N/A 01/03/2015 Procedure: ROBOTIC ASSISTED LAPAROSCOPIC COLON RESECTION - COLOANAL; Surgeon: Saleem chauhan MD; Location: [facility] OR; Service: General; Laterality: N/A; coloanal pull thr ough Flexible sigmoidoscopy N/A 01/03/2015 Procedure: SIGMOIDOSCOPY - FLEXIBLE; Surgeon: Saleem Shore MD; Location: [facility] OR; Service: General; Laterality: N/A; Sigmoidoscopy - rigid N/A 01/03/2015 Procedure: SIGMOIDOSCOPY - RIGID; Surgeon: Saleem Shore MD; Location: [facility] OR ; Service: General; Laterality: N/A; Flexible bronchoscopy N/A 01/17/2015 Procedure: BRONCHOSCOPY - FLEXIBLE; Surgeon: Lui Lindsey MD; Location: [facility] PROCEDURE; Service: Speech And Hearing Clinic Director; Laterality: N/A; DISCHARGE MEDS Medication List STOP taking these medications meloxicam 7.5 MG tablet Commonly known as: MOBIC metroNIDAZOLE 500 MG tablet Commonly known as: FLAGYL neomycin 500 MG tablet Commonly known as: MYCIFRADIN polyethylene glycol 236 G suspension Commonly known as: GoLYTELY,NuLYTELY pravastatin 40 MG tablet Commonly known as: PRAVACHOL prochlorperazine 10 MG tablet Commonly known as: COMPAZINE DISCHARGE EXAM EXAM GEN: awake, alert, verbal NEURO: PERRLA, no facial asymmetry, moving all extremities HEENT: sclerae clear, nonicteric, dry oral mucosa, no exudates NECK: supple, trachea midline HEART: normal rate, regular, no murmur, rub or gallop LUNGS: clear anteriorly, decreased BS at bases, no wheezing or rhonchi ABD: soft, not distended, colostomy w dark green stool, RUQ tenderness to palpation, no maldonado ound no guarding. EXTR: no edema, clubbing or cyanosis SKIN: warm, dry, skin surrounding abdominal wound is c/d/i and non erythematous; no e/o ski n breakdown over the occiput, scapulae, elbows, sacrum or heels LINES/TUBES: Port A Cath R chest (09/06/14) PROBLEM LIST Principal Problem: Aspiration pneumonia (HCC) Active Problems: Rectal cancer (HCC) Hyperlipidemia Abdominal pain Anemia Acute pancreatitis Protein-calorie malnutrition, severe (HCC) Physical deconditioning Chronic atrial fibrillation (HCC) Ileostomy in place (HCC) E coli bacteremia Disposition: Stable. Pancreatitis improving, tolerating enteral feeding. Afib - Digoxin dc'd. In sinus rhythm at present. Restart digoxin or start bblocker if th is becomes an issue. RLL aspiration pneumonia: Completed Unasyn/Levaquin 01/24. Bronch BAL grew jazmin. Comp leted Fluconazole 01/25. Acute respiratory failure with hypoxia: RESOLVED. On RA Acute pancreatitis: Ok to start feeding per surgery. MRI abd showed a simple cyst in the body of the pancreas. Elevated AST, ALT, direct & total bili: ischemic from hypotension versus hepatobiliary p athology. RESOLVED Rectal cancer: S/p coloanal pull-through for rectal cancer. Severe protein calorie malnutrition - on TPN, continue enteral feeding. Then d/c TPN whe n TF at goal. E. coli bacteremia, sepsis: Currently on Unasyn plus levofloxacin (last day 01/24) Deconditioning - mobilize, PT/OT: out of bed to chair. [facility]. Condition on Discharge: stable Code Status: Full Code Primary Care Physician: Kris Duarte MD 01/25/2015 documented in th is encounter Progress Notes Conversion Transaction, Provider Unknown - 01/25/2015 9:15 AM PDTFormatting of this note m ight be different from the original. Nurse Progress Note by Dolores Coleman RN at 01/25/15914 Author: Dolores Coleman RN Service: (none) Author Type: Registered Nurse Filed: 01/25/15925 Date of Service: 01/25/15914 Status: Signed Statistical Reporting Analyst: Dolores Coleman RN (Registered Nurse) Report given to TIMOTEO Bowman at [facility] in [place]. Family and patient aware of transfer. Dicus sed [facility] transfer limitations with Dr. Cartwright, verbal order to DC TPN/LIPIDS for transport. IV Morphine to be given for pain during transport due to [facility] being unable to administer Dil audid. Dolores Lott RN 01/25/2015 9:26 AM Victor ManuelreNiesha rodriguez MD - 01/25/2015 8:05 AM PDTFormatting of this note might be different from t he original. Progress Notes by Niesha Duarte MD at 01/25/15804 Author: Niesha Duarte MD Service: Speech And Hearing Clinic Director Author Type: Physician Filed: 01/25/15817 Date of Service: 01/25/15804 Status: Addendum Statistical Reporting Analyst: Niesha Duarte MD (Physician) Related Notes: Original Note by Niesha Duarte MD (Physician) filed at 01/25/15 08 [facility] Service: Speech And Hearing Clinic Director Progress Note Jose Eaton 64 y.o. Hospital Day: LOS: 22 days Post-Op Day: 14 Days Post-Op Consulting Physicians Treatment Team: Consulting Physician: Amy Simons MD Consulting Physician: Mario Crawford MD Admitting Provider: Saleem Shore MD SUBJECTIVE Patient Summary: Pt is a 64 y/o Burkinan speaking M with past medical history significant for hyperlipidemia, rectal cancer, on chemotherapy with 5-FU . 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 . While on the floor the pt had some episodes of n/v, tachycardia, temp spikes, episodes of afib, was diagnosed with SBO. Pt complained of th irst and was found drinking water out of the sink despite being educated regarding his NPO s tatus, it is thought that he aspirated. 01/11/15 a RAT was called as the pt was hypotensive & tachycardic, he was given 5L crystall oids and his BP improved but he became tachypneic. Stat blood gas showed metabolic acidosis and lactic acidosis. Pt showed signs of respiratory fatigue with increasing O2 requirement a nd was subsequently intubated, given 2 pushes of bicarb. Post-intubation CXR revealed R-side d pneumonia, he was started on IV Zosyn plus vancomyin. ICU Timeline: 01/12: Pt transferred to ICU. RIJ, arterial line placed. 01/13: Pt hypotensive requiring pressor. Echo showed reduced EF. Started on dobutamine w ith improvement of BP. Developed Afib with RVR. Started on digoxin, converted to sinus rhyth m. 01/15: Off pressors. Pt went back into Afib. Failed SBT. Diuresed with Lasix. Continued on dobutamine. 01/16: Extubated, on 2L O2. Started on Precedex d/t agitation & tachypnea. Complaining of RUQ abd pain & splinting while breathing. Acute pancreatitis. 01/18: reintubated and bronch w LLL mucus plug : right pigtail placed for effusion 01/21: extubated 01/24: chest tube pulled. Tolerating enteral feeding. 1031: Improved pain from pancreatitis. Events Overnight: No significant events. SCHEDULED MEDICATIONS erythromycin Both Eyes 4 times per day fat emulsion 250 mL Intravenous Daily fluconazole (DIFLUCAN) IV 200 mg Intravenous Q24H heparin (porcine) 5000 unit/0.5mL 5,000 Units Subcutaneous Q8H insulin aspart 0-16 Units Subcutaneous 4 times per day CONTINUOUS INFUSIONS TPN ADULT 75 mL/hr at 01/24/15 2030 OBJECTIVE VITAL SIGNS Temp: [98.1 F (36.7 C)-99.9 F (37.7 C)] 99.9 F (37.7 C) Heart Rate: [85-100] 88 Resp: [21-36] 28 BP: (96-126)/(56-61) 112/59 mmHg Intake/Output Summary (Last 24 hours) at 01/25/15 0805 Last data filed at 01/25/15 0505 Gross per 24 hour Intake 2737 ml Output 2750 ml Net -13 ml EXAM GEN: awake, alert, verbal NEURO: PERRLA, no facial asymmetry, moving all extremities HEENT: sclerae clear, nonicteric, dry oral mucosa, no exudates NECK: supple, trachea midline HEART: normal rate, regular, no murmur, rub or gallop LUNGS: clear anteriorly, dec BS at bases, no wheezing or rhonchi ABD: soft, not distended, colostomy w dark green stool, RUQ tenderness to palpation EXTR: no edema, clubbing or cyanosis SKIN: warm, dry, skin surrounding abdominal wound is c/d/i and non erythematous; no e/o ski n breakdown over the occiput, scapulae, elbows, sacrum or heels LINES/TUBES: Port A Cath R chest (09/06/14) DATA Recent Labs Lab 01/25/15 0436 01/24/15 0321 01/23/15 0322 01/22/15 0626 01/22/15 0415 01/21/15 0419 01/20/15426 WBC 9.77 9.26 10.73 12.23* 10.60 15.31* 11.70* RBC 2.61* 2.52* 2.47* 2.60* 2.32* 2.54* 2.50* HGB 8.5* 8.5* 8.2* 8.3* 7.6* 8.3* 8.3* HCT 24.8* 24.6* 24.1* 25.4* 25.2* 24.5* 24.1* MCV 95.2 97.8 97.5 97.8 108.4* 96.5 96.5 MCH 32.6 33.5 33.3 31.9 32.7 32.6 33.3 MCHC 34.2 34.3 34.2 32.6 30.2* 33.8 34.5 RDW 45.1 45.9 44.2 46.4 57.3* 44.2 42.9 PLT 584* 498* 408* 320 291 254 185 MPV 7.8 8.3 8.7 8.6 9.1 9.4 9.7 BANDSABS -- -- 0.32* 0.86* 0.64* -- -- NEUTROABS 7.44* -- -- -- -- 13.70* 10.54* LYMPHSABS 0.92* -- -- -- -- 0.35* 0.31* MONOSABS 0.96* -- -- -- -- 1.04* 0.57 BASOSABS 0.12* -- -- -- -- 0.04 0.03 EOSABS 0.33 -- -- -- -- 0.18 0.25 MORPH RBC AND PLT MORPHOLOGY APPEAR NORMAL NORMAL RBC MORPH 1+ RBC AND PLT MORPHOLOGY APPEA R NORMAL 2+ RBC AND PLT MORPHOLOGY APPEAR NORMAL RBC AND PLT MORPHOLOGY APPEAR NORMAL Recent Labs Lab 01/25/15 0436 01/24/1532001/23/1532101/20/1542601/19/15 0535 NA 134* 135 135 < > 136 137 K 4.5 4.8 4.3 < > 4.1 4.2 CL 102 104 103 < > 106 106 CO2 23 25 28 < > 22* 26 ANIONGAP 13 11 8 < > 12 10 GLUF 115* 115* 113* < > 119* 128* BUN 30* 29* 27* < > 27* 23 CREATININE 0.64* 0.60* 0.65* < > 0.70 0.67* BCR 47 49 42 < > 38 35 CA 8.3* 8.2* 8.0* < > 7.1* 7.2* ALB -- -- -- -- 1.2* 1.1* PROT -- -- -- -- 5.7* 5.2* BILITOT -- -- -- -- 3.0* 3.0* ALT -- -- -- -- 82* 113* AST -- -- -- -- 28 26 EGFR >60 >60 >60 < > >60 >60 PHOS 4.4 4.0 4.1 < > 3.7 4.0 MG 2.3 2.3 2.2 < > 2.2 2.2 < > = values in this interval not displayed. No results for input(s): INR in the last 168 hours. Amylase: Lab Results Component Value Date AMYLASE 133* 01/17/2015 Lipase: Lab Results Component Value Date LIPASE 361 01/24/2015 IMAGING X-ray Abdomen Acute Series 01/17/2015 1. Worsening infiltrate, with increasing small to moderate right pleural effu alex. 2. Persistent mild infiltrate left lung base. 3. Persistent mild cardiac enlargement . 4. Unchanged lines. Ct Chest Without Contrast 01/19/2015 1. Worsening dense infiltrative changes throughout most of the right lung, wi th increasing small to moderate right pleural effusion and persistent minimal left effusion. 2. Minimal left basilar atelectasis or infiltrate, subtly increased. 3. No adenopathy. 4. Stable tubes and lines. Nm Hepatobiliary With Cck 01/17/2015 1. Significant cholestasis with persistent hepatic uptake seen 4 hours post i njection. 2. Gallbladder not initially seen at 60 minutes but does fill 4 hours post Cholet ec injection suggesting that the cystic duct is patent. 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 Otherwise intact. CV: Afib: Digoxin dc'd. In sinus rhythm at present. Restart digoxin or start bblocker if t his becomes an issue. Acute dilated cardiomyopathy, decreased LV systolic function: Dr. Crawford consulted, follow ing, will start BB when able to take PO. PULM: RLL aspiration pneumonia: Completed Unasyn/Levaquin 01/24. Bronch BAL grew jazmin. C ompleted Fluconazole 01/25. Acute respiratory failure with hypoxia: RESOLVED. On RA GI/NUTRITION: Acute pancreatitis: Ok to start feeding per surgery. Discussed with Dr Carrion. MRI a bd showed a simple cyst in the body of the pancreas . Knitiate enteral feeding. Elevated AST, ALT, direct & total bili: ischemic from hypotension versus hepatobiliary p athology. RESOLVED Rectal cancer: S/p coloanal pull-through for rectal cancer. Severe protein calorie malnutrition - on TPN, continue enteral feeding. Then d/c TPN whe n TF at goal. RENAL/LYTES: NICOL: Resolved ID: Aspiration pneumonia: on unasyn/levaquin per ID (last day 01/24) E. coli bacteremia, sepsis: Currently on Unasyn plus levofloxacin (last day 01/24) Jazmin in BAL: fluconazole (last day 01/25). HEME: Anemia: likely secondary to chronic disease. Stable Hb ENDO: BG: On SSI, goal of BG below 180. MUSC/SKIN: Deconditioning - mobilize, PT/OT: out of bed to chair. Colostomy, surgical wounds: Healing well, continue with wound care. PROPHYLAXIS: Stress ulcer prophylaxis: N/A DVT prophylaxis: heparin, SCD's VAP bundle: NA Disposition: continue ICU care. Transfer to LTACH. Code Status: Full Code Niesha Duarte MD 01/25/2015 *Please bill 40 minutes of critical care time spent evaluating the patient, reviewing the d jose guadalupe and formulating a plan exclusive of all other procedures. Adrien Trejo MD - 01/25/2015 7:54 AM PDTFormatting of this note might be different from the origin al. Progress Notes by mAy Simons MD at 01/25/15 8886 Author: Amy Simons MD Service: Infectious Disease Author Type: Physician Filed: 01/26/15 1541 Date of Service: 01/25/15 786 Status: Signed Statistical Reporting Analyst: Amy Simons MD (Physician) [facility] Service: Infectious Disease Progress Note Hospital Day: LOS: 22 days Post-Op Day: 8 Days Post-Op SUBJECTIVE Patient Summary: 64-year-old with rectal cancer, status post chemoradiation, status p ost robotic resection, ileostomy on 01/03. Had an episode of vomiting on 01/11, and also diag nosed with partial SBO. It appears that patient was noncompliant with nothing by mouth statu s and may have aspirated. He was brought to the ICU with respiratory failure intubated and v entilated. Started on IV Zosyn plus vancomycin plus metronidazole. 01/15 Patient remains intubated and ventilated. Remains on low-dose dobutamine and pressor s. Failed spontaneous breathing trial. TPN: Day #5 Low-grade temperature 100.5 Fahrenheit noted this morning. White count remains normal. 01/17 - intubated in the evening for hypoxemic respiratory failure. 01/21 - extubated. CC: Abdominal pain, pneumonia Chart reviewed Events Overnight: No new issues. Scheduled Medications erythromycin Both Eyes 4 times per day fat emulsion 250 mL Intravenous Daily fluconazole (DIFLUCAN) IV 200 mg Intravenous Q24H heparin (porcine) 5000 unit/0.5mL 5,000 Units Subcutaneous Q8H insulin aspart 0-16 Units Subcutaneous 4 times per day Continuous Infusions TPN ADULT 75 mL/hr at 01/24/15 2030 PRN Medications acetaminophen, albuterol, dextrose, dextrose, fentaNYL, HYDROmorphone OR HYDROmorphone, lip moisturizer, magnesium sulfate OR magnesium sulfate OR magnesium sulfate, nysta tin, nystatin, [DISCONTINUED] ondansetron OR ondansetron, pancrelipase (Tnv-Tuzv-Gqok) 1 0,000 units, petrolatum, polyethylene glycol, potassium chloride OR potassium chloride * *OR potassium chloride, promethazine, sodium bicarbonate, sodium chloride 0.9 % sodium phosphate IVPB 15 mmol OR sodium phosphate IVPB 30 mmol OBJECTIVE Vital Signs: BP 112/59 mmHg | Pulse 88 | Temp(Src) 99.9 F (37.7 C) (Axillary) | Resp 28 | Ht 1.626 m (5' 4") | Wt 66.6 kg (146 lb 13.2 oz) | BMI 25.19 kg/m2 | SpO2 98% Temp: [98.1 F (36.7 C)-99.9 F (37.7 C)] 99.9 F (37.7 C) (01/25 353) BP: (96-126)/(56-62) 112/59 mmHg (01/25 353) Heart Rate: [85-100] 88 (01/25 353) Resp: [21-36] 28 (01/25 353) SpO2: [95 %-99 %] 98 % (01/25 353) Physical Exam Const: Vitals reviewed. No acute distress. Skin: No rashes, no edema Right chest Mediport site unremarkable. ENT: there is no evidence of thrush. Lungs: clear to auscultation bilaterally. No pleural rub. Heart: RRR, no murmur Abd: no distention, colostomy, soft, no tenderness, + bowel sounds DATA CBC: Lab Results Component Value Date WBC 9.77 01/25/2015 RBC 2.61* 01/25/2015 HGB 8.5* 01/25/2015 HCT 24.8* 01/25/2015 MCV 95.2 01/25/2015 MCH 32.6 01/25/2015 MCHC 34.2 01/25/2015 RDW 45.1 01/25/2015 PLT 584* 01/25/2015 MPV 7.8 01/25/2015 DIFFTYPE AUTOMATED 01/25/2015 WBC: Lab Results Component Value Date WBC 9.77 01/25/2015 NEUTABSMAN 6.95 01/24/2015 NEUTROABS 7.44* 01/25/2015 NEUTROMAN 75 01/24/2015 LYMPHOABS 1.02 01/24/2015 LYMPHOMAN 11 01/24/2015 LYMPHSABS 0.92* 01/25/2015 LYMPHOPCT 9.37 01/25/2015 MONOABSMAN 0.83* 01/24/2015 MONOMAN 9 01/24/2015 MONOPCT 9.80 01/25/2015 EOSINOABS 0.46 01/24/2015 EOSINOMAN 5 01/24/2015 EOSABS 0.33 01/25/2015 EOSPCT 3.37 01/25/2015 BASOSABS 0.12* 01/25/2015 BASOPCT 1.27 01/25/2015 PLTEST INCREASED 01/24/2015 BANDSPCT 3 01/23/2015 NRBC 1* 01/18/2015 METAABS 0.11* 01/23/2015 METAPCT 1 01/23/2015 MYELOABS 0.27* 01/18/2015 MYELOPCT 2 01/18/2015 COMDIFF SLIDE SCANNED, AGREES WITH AUTOMATED RESULTS. 01/25/2015 CMP: Lab Results Component Value Date NA 134* 01/25/2015 K 4.5 01/25/2015 CL 102 01/25/2015 CO2 23 01/25/2015 ANIONGAP 13 01/25/2015 GLUF 115* 01/25/2015 BUN 30* 01/25/2015 CREATININE 0.64* 01/25/2015 BCR 47 01/25/2015 CA 8.3* 01/25/2015 PROT 5.7* 01/20/2015 ALB 1.2* 01/20/2015 GLOB 2.7 01/12/2015 BILITOT 3.0* 01/20/2015 ALP 88 01/20/2015 AST 28 01/20/2015 ALT 82* 01/20/2015 EGFR >60 01/25/2015 Microbiology: BAL culture shows Jazmin albicans, no bacterial growth. CXR: Impression 1. Right lung consolidation persists, similar to the prior examination. 2. R ight pigtail catheter with improved angulation/kinking at the level of diaphragm. Electron ically signed by Michael Nixon MD on 01/24/2015 6:38 AM PROBLEM LIST Principal Problem: Aspiration pneumonia (HCC) Active Problems: Rectal cancer (HCC) Hyperlipidemia Abdominal pain Anemia Acute pancreatitis Protein-calorie malnutrition, severe (HCC) Physical deconditioning Chronic atrial fibrillation (HCC) Ileostomy in place (HCC) ASSESSMENT & PLAN Septic shock, multifactorial Secondary to severe aspiration pneumonia, pancreatitis. CT scan showed significant parapneu jessica effusion; s/p chest tube placement and removal. Follow up chest x-ray suggests adequat e drainage. Leukocytosis has improved. BAL has only shown Jazmin albicans, which could be a colonizer, although he has made some progress after addition of fluconazole on January 21. Completed 14 days of Unasyn plus levofloxacin on 01/24. Completing 5 days of fluconazole d ay today. Bacteremia Gram-negative rods in blood culture identified as Escherichia coli; noted only in the anaer obic bottle of one set from cultures on 01/11. Possible bacteremia from aspiration pneumonia ; sputum has also shown Escherichia coli. Antibiotics for a total of 14 days following first negative blood culture (January 11) as a shady. Rectal cancer Status post surgery on 01/03. Disposition: Transfer to LTACH today Case discussed with Dr. Duarte Code Status: Full Code AMY SIMONS MD 01/25/2015 onversion Hernandez saction, Provider Unknown - 01/25/2015 5:10 AM PDTFormatting of this note might be differen t from the original. Nurse Progress Note by Shanon Pak RN at 01/25/15509 Author: Shanon Pak RN Service: (none) Author Type: Registered Nurse Filed: 01/25/1532 Date of Service: 01/25/15509 Status: Signed Statistical Reporting Analyst: Shanon Pak RN (Registered Nurse) During 4 AM bottom ironer noticed that pt's small bore NG tube had been pulled out by pt. was notified after multiple unsuccessful attempts at placing a new small bore NG. MD marion crabtree to leave it out and let the pt sleep for now and the matter would be discussed later today . Pt currently in bed, eyes closed, VSS. WCM. Shanon Pak RN. aleem Christie MD - 01/24/2015 6:05 PM PDT Progress Notes by Saleem Shore MD at 01/24/151804 Author: Saleem Shore MD Service: General Surgery Author Type: Physician Filed: 01/24/151805 Date of Service: 01/24/151804 Status: Signed Statistical Reporting Analyst: Saleem Shore MD (Physician) [facility] Service: Colon & Rectal Surgery Progress Note Hospital Day: LOS: 21 days Post-Op Day: 20 Day Post-Op SUBJECTIVE Patient Summary: S/P Coloanal pull-through for low rectal cancer. Events Overnight: looks very well, no new issues or complaint Scheduled Medications ampicillin-sulbactam 3 g Intravenous Q6H erythromycin Both Eyes 4 times per day fat emulsion 250 mL Intravenous Daily fluconazole (DIFLUCAN) IV 200 mg Intravenous Q24H heparin (porcine) 5000 unit/0.5mL 5,000 Units Subcutaneous Q8H insulin aspart 0-16 Units Subcutaneous 4 times per day Continuous Infusions TPN ADULT 75 mL/hr at 01/23/152105 TPN ADULT PRN Medications acetaminophen, albuterol, dextrose, dextrose, fentaNYL, HYDROmorphone OR HYDROmorphone, lip moisturizer, magnesium sulfate OR magnesium sulfate OR magnesium sulfate, nysta tin, nystatin, [DISCONTINUED] ondansetron OR ondansetron, pancrelipase (Klq-Nlwj-Qrrq) 1 0,000 units, petrolatum, polyethylene glycol, potassium chloride OR potassium chloride * *OR potassium chloride, promethazine, sodium bicarbonate, sodium chloride 0.9 % sodium phosphate IVPB 15 mmol OR sodium phosphate IVPB 30 mmol OBJECTIVE Vital Signs: BP 108/59 mmHg | Pulse 89 | Temp(Src) 98.1 F (36.7 C) (Axillary) | Resp 21 | Ht 1.626 m (5' 4") | Wt 66.6 kg (146 lb 13.2 oz) | BMI 25.19 kg/m2 | SpO2 97% Temp: [98.1 F (36.7 C)-99.7 F (37.6 C)] 98.1 F (36.7 C) (01/25 1600) BP: (96-126)/(51-62) 108/59 mmHg (01/25 1600) Heart Rate: [87-100] 89 (01/25 1600) Resp: [21-36] 21 (10/30 1600) SpO2: [94 %-98 %] 97 % (01/24 1600) Weight: [66.6 kg (146 lb 13.2 oz)] 66.6 kg (146 lb 13.2 oz) (01/24 0406) Physical Exam Constitutional: He appears well-developed and well-nourished. No distress. HENT: Head: Atraumatic. Eyes: Pupils are equal, round, and reactive to light. Neck: Neck supple. Abdominal: Soft. He exhibits no distension. There is no tenderness. Genitourinary: Neurological: He is alert. Follows command Skin: Skin is warm. He is not diaphoretic. Vitals reviewed. DATA CBC: Lab Results Component Value Date WBC 9.26 01/24/2015 RBC 2.52* 01/24/2015 HGB 8.5* 01/24/2015 HCT 24.6* 01/24/2015 MCV 97.8 01/24/2015 MCH 33.5 01/24/2015 MCHC 34.3 01/24/2015 RDW 45.9 01/24/2015 PLT 498* 01/24/2015 MPV 8.3 01/24/2015 DIFFTYPE MANUAL 01/24/2015 BMP: Lab Results Component Value Date NA 135 01/24/2015 K 4.8 01/24/2015 CL 104 01/24/2015 CO2 25 01/24/2015 ANIONGAP 11 01/24/2015 GLUF 115* 01/24/2015 BUN 29* 01/24/2015 CREATININE 0.60* 01/24/2015 BCR 49 01/24/2015 CA 8.2* 01/24/2015 EGFR >60 01/24/2015 Magnesium: Lab Results Component Value Date MG 2.3 01/24/2015 Phosphorus: Lab Results Component Value Date PHOS 4.0 01/24/2015 PROBLEM LIST Principal Problem: Aspiration pneumonia (HCC) Active Problems: Rectal cancer (HCC) Hyperlipidemia Abdominal pain Anemia Acute pancreatitis Protein-calorie malnutrition, moderate (HCC) Physical deconditioning Chronic atrial fibrillation (HCC) ASSESSMENT & PLAN S/P Coloanal pull-through for low rectal cancer POD#20. Developed likely aspiration pneumo faye and sepsis. Afib now back in sinus again. He started declaring pancreatitis and liver dysfunction (likely due to hypotension). HIDA scan reviewed. Suggestive of hepatocellular disease. ileostomy is functional but slowed down form the pancreatitis. MRCP: reviewed - feeding tube in: starting feeds tonight. - CT out - transfer to facility tomorrow. Disposition: Code Status: Full Code Saleem Shore MD 01/24/2015 onversion Transac tion, Provider Unknown - 01/24/2015 4:22 PM PDTFormatting of this note might be different f rom the original. Progress Notes by Anna Suresh RD, CD at 01/24/151621 Author: Anna Suresh RD, CD Service: (none) Author Type: Registered Dietitian Filed: 01/24/151621 Date of Service: 01/24/151621 Status: Signed Statistical Reporting Analyst: Anna Suresh RD, CD (Registered Dietitian) 01/24/15 2993 Subjective Timepoint Follow up (high risk) Pt c/o Pt remains on room air. Has been c/o abdominal pain but improving. Small bore NG tub e in place. Plan is for pt to go to fluoroscopy this afternoon to advance the tip of the tub e into the jejunum. Fluid / Beverage Intake Oral Fluids Amount NPO Food Intake Amount of Food NPO per MAILROOM SUPERVISOR. Enteral Nutrition Intake Access NJ tube placement pending. Parenteral Nutrition Intake Access PICC Rate/Solution TPN (D22%, AA 6%) at 75 mL/hr plus lipids 20% 250 mL daily. Calories per day 2278 (31 kcal/kg) Non Protein calories per day 1846 Grams of Protein per day 108 (1.5 g protein/kg) Total Volume per day 2050 mL Nutrition-Focused Physical Findings Overall Appearance Pt noted to have at least moderate muscle wasting and loss of subcutaneo us fat. Digestive System (Mouth to Rectum) Ileostomy output was 300 mL overnight. MRI abdomen showe d a simple cyst in the body of the pancreas. Pt remains NPO per MAILROOM SUPERVISOR recommendations. Anthropometrics Weight change Wt is now down 6.2 kg since admit. I/Os indicate that pt is approximately 2.7 L fluid negative. Further wt loss to be avoided. Will continue to monitor. Biochemical data, medical tests, and procedures reviewed Biochemical data, medical tests, and procedures reviewed BG has been controlled in the 90s- 100s, Novolog SSI ordered. Cr 0.6 (L) - consistent with muscle wasting. Electrolytes WNL. Paula bagley also now WNL at 361. Recommendations Recommended parenteral nutritional needs for pharmacy Recommend increasing dextrose concent ration in TPN to 25%. TPN (D25%, AA 6%) at 75 mL/hr plus lipids 20% 250 mL daily will provid e 2462 kcal, 108 g protein, 2030 NPC, and 2050 mL total volume which supplies 34 kcal/kg and 1.5 g protein/kg based on admit wt. Recommended energy needs Once J-tube is in place, initiate trickle feeds of Vital 1.0 at 10 mL/hr. Will f/u to provide goals for TF advancement if indicated. Recommend continuing TPN until pt is able to tolerate EN at goal to avoid further nutritional deficit. Concerned that absorption may be limited with reduced bowel length with jejunal feeds and ileostomy. Will conntinue to monitor clinical course and f/u with further recs as appropriate. Nutritional Risk Nutritional risk High Follow up date 01/27/[address], CD, [facility] 01/24/2015 onver alex [place], Provider Unknown - 01/24/2015 1:38 PM PDT Therapy Progress Note by Fran Hackett PT at 01/24/15 4775 Author: Fran Hackett PT Service: (none) Author Type: Physical Therapist Filed: 01/24/15 8927 Date of Service: 01/24/151337 Status: Signed Statistical Reporting Analyst: Fran Hackett PT (Physical Therapist) 01/24/15 1338 PT Last Visit PT Received On 01/24/15 Reason for Treatment Deconditioning Requires PT Follow Up Yes Follow up PT Only? Yes Assistance Required 2 person Front Office Java Developer Needed Yes Precautions Other Precautions Fall Risk Other Comments Comments Patient supine in bed upon PT arrival; agreeable to participating. Family present throughout and assisting frequently with motivation and encouragement. Patient following all commands from PT at this time, with prolonged time often secondary to fatigue and pain (but overall demonstrating good participation). Functional strength is making improvements (bed mobility/transfer strength improving, able to initiate some gait training today with the [facility] W). Notes discomfort at times around the colostomy site, but notes that it is tolerable (Gai t belt placement up high above the colostomy). Patient up in the recliner after activity, fa tigued but pleased with his progress (patient's family eager to see the patient up). Complet ed 3 total transfers today; needing ~mod A to arise from the EOB (which is a slightly elevat ed surface). No new complaints after mobilizing, appeared to have good tolerance to activity . Vitals after activity in sitting: HR 96, BP 118/58, SPO2 97% w/ RA. Cognition Overall Cognitive Status WFL Orientation Level Oriented Bed Mobility Supine to Sit Max assist (BLEs OOB & trunk to upright);Mod assist (BLEs OOB or trunk to upr ight) Transfers Sit to/from Stand Moderate assist (to arise OR lower) Bed to/from Chair Moderate assist (to arise OR lower);Maximal assist (to arise AND lower) Stand Pivot Transfers Moderate assist (to arise OR lower);Maximal assist (to arise AND lowe r) (2x STS transfers) Mobility Ambulation Assistance Moderate assist;Maximal assist;X2 (2nd person for safety) Maximal Ambulation Distance (feet) 3 Total Ambulation Distance (feet) 3 Distance limited by? Patient's ability Pattern Decreased betsy;Right swing foot doesn't pass stance foot;Left swing foot doesn't pass stance foot;Shuffling Assistive Device Walker high platform Balance Balance Yes Static Sitting Balance Static Sitting-Balance Support Right upper extremity support;Left upper extremity support;F eet supported Static Sitting-Level of Assistance Minimal assist;Moderate assist;Maintains midline;Doesn't maintain midline Static Sitting-Comment/Duration x10 minutes on EOB Static Standing Balance Static Standing-Balance Support Right upper extremity support;Left upper extremity support; Trunk support Static Standing-Level of Assistance Moderate assist Static Standing-Comment/Duration 3 minutes; forward flexed posture Activity Tolerance Activity Tolerance Patient limited by fatigue;Treatment limited secondary to medical compli cations Nurse Made Aware TIMOTEO Meade Safety Devices Safety Devices in Place (RN aware) Restraints Initially in Place No Plan Treatment/Interventions Continue per Primary PT POC Progress Progressing toward goals Recommendation Recommendations LTAC PT Ready for Discharge Yes onver alex Transaction, Provider Unknown - 01/24/2015 1:10 PM PDT Progress Notes by Choco Hernandez RPH at 01/24/15 1310 Author: Choco Hernandez RPH Service: Pharmacy Author Type: Pharmacist Filed: 01/24/15 1311 Date of Service: 01/24/15 1310 Status: Signed Statistical Reporting Analyst: Choco Hernandez RPH (Pharmacist) >> CHOCO HERNANDEZ 01/24/2015 13:10 TPN day 13, lytes WNL. K is up to 4.8-will decrease K in tpn by 20meq/L. Blood sugars goo d. No other changes. onver alex Transaction, Provider Unknown - 01/24/2015 11:27 AM PDT Therapy Progress Note by Grazyna Buckner MS CCC-MAILROOM SUPERVISOR at 01/24/151126 Author: Grazyna Buckner MS CCC-MAILROOM SUPERVISOR Service: (none) Author Type: Speech and Language Patho logist Filed: 01/24/15 1128 Date of Service: 01/24/151126 Status: Signed Statistical Reporting Analyst: Grazyna Buckner MS CCC-MAILROOM SUPERVISOR (Speech and Language Pathologist) 01/24/15 1100 Swallowing Assessment Eval Swallowing Treatment Yes Ice Chips Presentation Spoon Oral Phase Increased holding time Pharyngeal Phase No overt signs or symptoms of aspirations Thin Presentation Spoon Oral Phase Thin Increased hold time Pharyngeal Phase Delayed swallow initiated Puree Presentation Spoon Oral Phase Decreased oral transit;Increased oral holding time Pharyngeal Delayed Swallow Recommendations Liquids Consistency Recommendations Ice chips for oral comfort;NPO/No liquids Diet Consistency Recommendation NPO/No solids Recommendations 1:1 supervision;Dysphagia treatment Risk for Aspiration Moderate Compensatory Swallowing Strategies Upright as possible for all oral intake;Remain upright f or 30 minutes after meals;No straws;Small bites/sips Recommended Form of Meds Feeding Tube Summary Pt was able to consume ice chips w/o s/s of aspiration. Pt required oral care and w as completed. Pt c/o of stomach pain. RN notified of pain and pt was informed more meds can be given at noon.Pt did not want to participate in swallow trials today, however, friend an d family encouraged pt to attempt. ST informed pt to be transfered to [facility] tomorrow. Staff Notified RN Plan of Care Treatment Plan Continue with current plan Follow up treatments Assessment for upgrade AVS Documentation No MAILROOM SUPERVISOR Ready for Discharge Not Applicable onver alex Transaction, Provider Unknown - 01/24/2015 9:44 AM PDT Case Management by BRIA Lima at 01/24/15943 Author: BRIA Lima Service: (none) Author Type: Tube Bender Hand Filed: 01/24/15 1252 Date of Service: 01/24/15943 Status: Addendum Statistical Reporting Analyst: BRIA Lima (Tube Bender Hand) Related Notes: Original Note by BRIA Lima (Tube Bender Hand) filed at 01/24/15946 Plan is for pt to transfer to [facility] tomorrow. [facility] as she is arranging transportation. Suad Sánchez, RN,CM will be covering the ICU tomorrow. [phone]. Addendum: Faxed updated progress notes, MAR, TPN orders to [facility] per their request. Matilde Segundo is planning for a 10:00 strip picker tomorrow. She will call later to confirm the time. iesha Mcgee MD - 01/24/2015 8:13 AM PDTFormatting of this note might be different from t danish original. Progress Notes by Niesha Duarte MD at 01/24/15812 Author: Niesha Duarte MD Service: Speech And Hearing Clinic Director Author Type: Physician Filed: 01/24/15916 Date of Service: 01/24/15812 Status: Addendum Statistical Reporting Analyst: Niesha Duarte MD (Physician) Related Notes: Original Note by Niesha Duarte MD (Physician) filed at 01/24/15913 [facility] Service: Speech And Hearing Clinic Director Progress Note Jose Eaton 64 y.o. Hospital Day: LOS: 21 days Post-Op Day: 14 Days Post-Op Consulting Physicians Treatment Team: Consulting Physician: Amy Simons MD Consulting Physician: Mario Crawford MD Admitting Provider: Saleem Shore MD SUBJECTIVE Patient Summary: Pt is a 64 y/o Burkinan speaking M with past medical history significant for hyperlipidemia, rectal cancer, on chemotherapy with 5-FU . 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 . While on the floor the pt had some episodes of n/v, tachycardia, temp spikes, episodes of afib, was diagnosed with SBO. Pt complained of th irst and was found drinking water out of the sink despite being educated regarding his NPO s tatus, it is thought that he aspirated. 01/11/15 a RAT was called as the pt was hypotensive & tachycardic, he was given 5L crystall oids and his BP improved but he became tachypneic. Stat blood gas showed metabolic acidosis and lactic acidosis. Pt showed signs of respiratory fatigue with increasing O2 requirement a nd was subsequently intubated, given 2 pushes of bicarb. Post-intubation CXR revealed R-side d pneumonia, he was started on IV Zosyn plus vancomyin. ICU Timeline: 01/12: Pt transferred to ICU. RIJ, arterial line placed. 01/13: Pt hypotensive requiring pressor. Echo showed reduced EF. Started on dobutamine w ith improvement of BP. Developed Afib with RVR. Started on digoxin, converted to sinus rhyth m. 01/15: Off pressors. Pt went back into Afib. Failed SBT. Diuresed with Lasix. Continued on dobutamine. 01/16: Extubated, on 2L O2. Started on Precedex d/t agitation & tachypnea. Complaining of RUQ abd pain & splinting while breathing. Acute pancreatitis. 01/18: reintubated and bronch w LLL mucus plug 10:26: right pigtail placed for effusion 01/21: extubated 01/24: chest tube pulled Events Overnight: Improved pain from pancreatitis. SCHEDULED MEDICATIONS ampicillin-sulbactam 3 g Intravenous Q6H erythromycin Both Eyes 4 times per day fat emulsion 250 mL Intravenous Daily fluconazole (DIFLUCAN) IV 200 mg Intravenous Q24H furosemide 40 mg Intravenous Daily heparin (porcine) 5000 unit/0.5mL 5,000 Units Subcutaneous Q8H insulin aspart 0-16 Units Subcutaneous 4 times per day levofloxacin 500 mg Intravenous Q24H pantoprazole 40 mg Intravenous QAM AC CONTINUOUS INFUSIONS TPN ADULT 75 mL/hr at 01/23/15 2106 OBJECTIVE VITAL SIGNS Temp: [98.2 F (36.8 C)-99.5 F (37.5 C)] 98.3 F (36.8 C) Heart Rate: [87-108] 94 Resp: [22-34] 30 BP: (94-129)/(51-60) 111/60 mmHg Intake/Output Summary (Last 24 hours) at 01/24/15 0813 Last data filed at 01/24/15 0500 Gross per 24 hour Intake 2782 ml Output 2950 ml Net -168 ml EXAM GEN: awake, alert, verbal NEURO: PERRLA, no facial asymmetry, moving all extremities HEENT: sclerae clear, nonicteric, dry oral mucosa, no exudates NECK: supple, trachea midline HEART: normal rate, regular, no murmur, rub or gallop LUNGS: clear anteriorly, dec BS at bases, no wheezing or rhonchi ABD: soft, not distended, colostomy w dark green stool, nontender to palpation EXTR: no edema, clubbing or cyanosis SKIN: warm, dry, skin surrounding abdominal wound is c/d/i and non erythematous; no e/o ski n breakdown over the occiput, scapulae, elbows, sacrum or heels LINES/TUBES: Port A Cath R chest (09/06/14) DATA Recent Labs Lab 01/24/15 0321 01/23/15 0322 01/22/15 0626 01/22/15 0415 01/21/15 0419 01/20/15 0427 WBC 9.26 10.73 12.23* 10.60 15.31* 11.70* RBC 2.52* 2.47* 2.60* 2.32* 2.54* 2.50* HGB 8.5* 8.2* 8.3* 7.6* 8.3* 8.3* HCT 24.6* 24.1* 25.4* 25.2* 24.5* 24.1* MCV 97.8 97.5 97.8 108.4* 96.5 96.5 MCH 33.5 33.3 31.9 32.7 32.6 33.3 MCHC 34.3 34.2 32.6 30.2* 33.8 34.5 RDW 45.9 44.2 46.4 57.3* 44.2 42.9 PLT 498* 408* 320 291 254 185 MPV 8.3 8.7 8.6 9.1 9.4 9.7 BANDSABS -- 0.32* 0.86* 0.64* -- -- NEUTROABS -- -- -- -- 13.70* 10.54* LYMPHSABS -- -- -- -- 0.35* 0.31* MONOSABS -- -- -- -- 1.04* 0.57 BASOSABS -- -- -- -- 0.04 0.03 EOSABS -- -- -- -- 0.18 0.25 MORPH NORMAL RBC MORPH 1+ RBC AND PLT MORPHOLOGY APPEAR NORMAL 2+ RBC AND PLT MORPHOLOGY AP PEAR NORMAL RBC AND PLT MORPHOLOGY APPEAR NORMAL Recent Labs Lab 01/24/15 0321 01/23/15 0322 01/22/15 2133 01/22/15 0626 01/20/15 0427 01/19/15 0535 01/18/15 0509 NA 135 135 -- 137 < > 136 137 140 K 4.8 4.3 4.1 4.2 < > 4.1 4.2 4.4 CL 104 103 -- 104 < > 106 106 108 CO2 25 28 -- 26 < > 22* 26 27 ANIONGAP 11 8 -- 11 < > 12 10 10 GLUF 115* 113* -- 123* < > 119* 128* 129* BUN 29* 27* -- 27* < > 27* 23 25 CREATININE 0.60* 0.65* -- 0.57* < > 0.70 0.67* 0.61* BCR 49 42 -- 47 < > 38 35 41 CA 8.2* 8.0* -- 7.8* < > 7.1* 7.2* 7.4* ALB -- -- -- -- -- 1.2* 1.1* 1.2* PROT -- -- -- -- -- 5.7* 5.2* 5.2* BILITOT -- -- -- -- -- 3.0* 3.0* 3.0* ALT -- -- -- -- -- 82* 113* 197* AST -- -- -- -- -- 28 26 55* EGFR >60 >60 -- >60 < > >60 >60 >60 PHOS 4.0 4.1 4.1 4.1 < > 3.7 4.0 3.6 MG 2.3 2.2 2.1 2.4 < > 2.2 2.2 2.6* < > = values in this interval not displayed. No results for input(s): INR in the last 168 hours. Amylase: Lab Results Component Value Date AMYLASE 133* 01/17/2015 Lipase: Lab Results Component Value Date LIPASE 361 01/24/2015 IMAGING X-ray Abdomen Acute Series 01/17/2015 1. Worsening infiltrate, with increasing small to moderate right pleural effu alex. 2. Persistent mild infiltrate left lung base. 3. Persistent mild cardiac enlargement . 4. Unchanged lines. Ct Chest Without Contrast 01/19/2015 1. Worsening dense infiltrative changes throughout most of the right lung, wi th increasing small to moderate right pleural effusion and persistent minimal left effusion. 2. Minimal left basilar atelectasis or infiltrate, subtly increased. 3. No adenopathy. 4. Stable tubes and lines. Nm Hepatobiliary With Cck 01/17/2015 1. Significant cholestasis with persistent hepatic uptake seen 4 hours post i njection. 2. Gallbladder not initially seen at 60 minutes but does fill 4 hours post Cholet ec injection suggesting that the cystic duct is patent. LEM LIST Principal Problem: Aspiration pneumonia (HCC) Active Problems: Rectal cancer (HCC) Hyperlipidemia Abdominal pain Anemia Acute pancreatitis Protein-calorie malnutrition, moderate (HCC) Physical deconditioning Chronic atrial fibrillation (HCC) ASSESSMENT & PLAN NEURO: Awake, alert, no localizing deficits. Otherwise intact. CV: Afib: Digoxin dc'd. In sinus rhythm at present. Restart digoxin or start bblocker if t his becomes an issue. Acute dilated cardiomyopathy, decreased LV systolic function: Dr. Crawford consulted, follow ing, will start BB when able to take PO. PULM: RLL aspiration pneumonia: Completes Unasyn/Levaquin 01/24. Bronch BAL grew jazmin. O n fluconazole (01/21, complete 5 days). Acute respiratory failure with hypoxia: RESOLVED. On RA GI/NUTRITION: Acute pancreatitis: Ok to start feeding per surgery. Discussed with Dr Carrion. MRI a bd showed a simple cyst in the body of the pancreas . Place SBFT past ligament of Treitz to initiate enteral feeding. Elevated AST, ALT, direct & total bili: ischemic from hypotension versus hepatobiliary p athology. RESOLVED Rectal cancer: S/p coloanal pull-through for rectal cancer. Moderate protein calorie malnutrition - on TPN, start enteral feeding today. RENAL/LYTES: NICOL: Resolved 01/12. Cr 0.60 (01/24) Lasix to 40mg IV daily ID: Aspiration pneumonia: on unasyn/levaquin per ID (last day 01/24) E. coli bacteremia, sepsis: Currently on Unasyn plus levofloxacin (last day 01/24) Jazmin in BAL: fluconazole (01/21, complete 5 days, last day 01/25). HEME: Anemia: likely secondary to chronic disease. Stable Hb ENDO: BG: On SSI, goal of BG below 180. BGs controlled. MUSC/SKIN: Deconditioning - mobilize, PT/OT: out of bed to chair. Colostomy, surgical wounds: Healing well, continue with wound care. PROPHYLAXIS: Stress ulcer prophylaxis: Protonix DVT prophylaxis: heparin, SCD's VAP bundle: NA Disposition: [facility] Code Status: Full Code Niesha Duarte MD 01/24/2015 *Please bill 35 minutes of critical care time spent evaluating the patient, reviewing the d jose guadalupe and formulating a plan exclusive of all other procedures. Adrien Trejo MD - 01/24/2015 7:08 AM PDTFormatting of this note might be different from the origin al. Progress Notes by Amy Simons MD at 01/24/15707 Author: Amy Simons MD Service: Infectious Disease Author Type: Physician Filed: 01/24/15 1830 Date of Service: 01/24/15707 Status: Signed Statistical Reporting Analyst: Amy Simons MD (Physician) [facility] Service: Infectious Disease Progress Note Hospital Day: LOS: 21 days Post-Op Day: 7 Days Post-Op SUBJECTIVE Patient Summary: 64-year-old with rectal cancer, status post chemoradiation, status post robotic resection, ileostomy on 01/03. Had an episode of vomiting on 01/11, and also dillan gnosed with partial SBO. It appears that patient was noncompliant with nothing by mouth stat us and may have aspirated. He was brought to the ICU with respiratory failure intubated and ventilated. Started on IV Zosyn plus vancomycin plus metronidazole. 01/15 Patient remains intubated and ventilated. Remains on low-dose dobutamine and pressor s. Failed spontaneous breathing trial. TPN: Day #5 Low-grade temperature 100.5 Fahrenheit noted this morning. White count remains normal. 01/17 - intubated in the evening for hypoxemic respiratory failure. 01/21 - extubated. CC: Abdominal pain, pneumonia Chart reviewed Events Overnight: Decreased abdominal pain. Chest tube removed. Scheduled Medications ampicillin-sulbactam 3 g Intravenous Q6H erythromycin Both Eyes 4 times per day fat emulsion 250 mL Intravenous Daily fluconazole (DIFLUCAN) IV 200 mg Intravenous Q24H furosemide 40 mg Intravenous Daily heparin (porcine) 5000 unit/0.5mL 5,000 Units Subcutaneous Q8H insulin aspart 0-16 Units Subcutaneous 4 times per day levofloxacin 500 mg Intravenous Q24H pantoprazole 40 mg Intravenous QAM AC Continuous Infusions TPN ADULT 75 mL/hr at 01/23/156 PRN Medications acetaminophen, albuterol, dextrose, dextrose, HYDROmorphone OR HYDROmorphone, lip moist urizer, magnesium sulfate OR magnesium sulfate OR magnesium sulfate, nystatin, nysta tin, [DISCONTINUED] ondansetron OR ondansetron, petrolatum, polyethylene glycol, potassi um chloride OR potassium chloride OR potassium chloride, promethazine, sodium chlori de 0.9 %, sodium phosphate IVPB 15 mmol OR sodium phosphate IVPB 30 mmol OBJECTIVE Vital Signs: BP 111/60 mmHg | Pulse 94 | Temp(Src) 98.3 F (36.8 C) (Oral) | Resp 30 | Ht 1.626 m (5' 4") | Wt 66.6 kg (146 lb 13.2 oz) | BMI 25.19 kg/m2 | SpO2 97% Temp: [98.2 F (36.8 C)-99.5 F (37.5 C)] 98.3 F (36.8 C) (01/25 400) BP: (94-146)/(51-65) 111/60 mmHg (01/25 400) Heart Rate: [87-108] 94 (01/25 400) Resp: [22-34] 30 (01/25 400) SpO2: [94 %-98 %] 97 % (01/25 400) Weight: [66.6 kg (146 lb 13.2 oz)-69.854 kg (154 lb)] 66.6 kg (146 lb 13.2 oz) (01/24 406 ) Physical Exam Const: Vitals reviewed. No acute distress. Skin: No rashes, no edema Right chest Mediport site unremarkable. Right IJ triple-lumen catheter has been removed. ENT: there is no evidence of thrush. Lungs: clear to auscultation bilaterally. No pleural rub. Heart: RRR, no murmur Abd: no distention, colostomy, soft, no tenderness, + bowel sounds DATA CBC: Lab Results Component Value Date WBC 9.26 01/24/2015 RBC 2.52* 01/24/2015 HGB 8.5* 01/24/2015 HCT 24.6* 01/24/2015 MCV 97.8 01/24/2015 MCH 33.5 01/24/2015 MCHC 34.3 01/24/2015 RDW 45.9 01/24/2015 PLT 498* 01/24/2015 MPV 8.3 01/24/2015 DIFFTYPE MANUAL 01/24/2015 WBC: Lab Results Component Value Date WBC 9.26 01/24/2015 NEUTABSMAN 6.95 01/24/2015 NEUTROABS 13.70* 01/21/2015 NEUTROMAN 75 01/24/2015 LYMPHOABS 1.02 01/24/2015 LYMPHOMAN 11 01/24/2015 LYMPHSABS 0.35* 01/21/2015 LYMPHOPCT 2.26 01/21/2015 MONOABSMAN 0.83* 01/24/2015 MONOMAN 9 01/24/2015 MONOPCT 6.77 01/21/2015 EOSINOABS 0.46 01/24/2015 EOSINOMAN 5 01/24/2015 EOSABS 0.18 01/21/2015 EOSPCT 1.18 01/21/2015 BASOSABS 0.04 01/21/2015 BASOPCT 0.25 01/21/2015 PLTEST INCREASED 01/24/2015 BANDSPCT 3 01/23/2015 NRBC 1* 01/18/2015 METAABS 0.11* 01/23/2015 METAPCT 1 01/23/2015 MYELOABS 0.27* 01/18/2015 MYELOPCT 2 01/18/2015 COMDIFF SLIDE SCANNED, AGREES WITH AUTOMATED RESULTS. 01/21/2015 CMP: Lab Results Component Value Date NA 135 01/24/2015 K 4.8 01/24/2015 CL 104 01/24/2015 CO2 25 01/24/2015 ANIONGAP 11 01/24/2015 GLUF 115* 01/24/2015 BUN 29* 01/24/2015 CREATININE 0.60* 01/24/2015 BCR 49 01/24/2015 CA 8.2* 01/24/2015 PROT 5.7* 01/20/2015 ALB 1.2* 01/20/2015 GLOB 2.7 01/12/2015 BILITOT 3.0* 01/20/2015 ALP 88 01/20/2015 AST 28 01/20/2015 ALT 82* 01/20/2015 EGFR >60 01/24/2015 Microbiology: BAL culture shows Jazmin albicans, no bacterial growth. CXR: Impression 1. Right lung consolidation persists, similar to the prior examination. 2. R ight pigtail catheter with improved angulation/kinking at the level of diaphragm. Electron ically signed by Michael Nixon MD on 01/24/2015 6:38 AM PROBLEM LIST Principal Problem: Aspiration pneumonia (HCC) Active Problems: Rectal cancer (HCC) Persistent atrial fibrillation (HCC) Hyperlipidemia Abdominal pain Anemia Atrial fibrillation with RVR (HCC) Severe sepsis (HCC) Acute respiratory failure with hypoxia (HCC) Acute kidney injury (HCC) Acute pancreatitis ASSESSMENT & PLAN Septic shock, multifactorial Secondary to severe aspiration pneumonia, pancreatitis. CT scan showed significant parapneu jessica effusion; s/p chest tube placement and removal. Follow up chest x-ray suggests adequat e drainage. Leukocytosis has improved. BAL has only shown Jazmin albicans, which could be a colonizer, although he has made some progress after addition of fluconazole on January 21. Continue Unasyn plus levofloxacin - day #14/14 today. Continue fluconazole day #4, recomme nd 5 days total. Bacteremia Gram-negative rods -now identified as Escherichia coli -noted only in the anaerobic bottle of one set from cultures on 01/11. Possible bacteremia from aspiration pneumonia sputum has also shown Escherichia coli. Antibiotics for a total of 14 days following first negative blood culture (January 11) as a shady. Rectal cancer Status post surgery on 01/03. Case discussed with Dr. Duarte Code Status: Full Code AMY SIMONS MD 01/24/2015 aleem Shore MD - 01/23/2015 6:43 PM PDT . Progress Notes by Saleem Shore MD at 01/23/151842 Author: Saleem Shore MD Service: General Surgery Author Type: Physician Filed: 01/23/151843 Date of Service: 01/23/151842 Status: Signed Statistical Reporting Analyst: Saleem Shore MD (Physician) [facility] Service: Colon & Rectal Surgery Progress Note Hospital Day: LOS: 20 days Post-Op Day: 19 Day Post-Op SUBJECTIVE Patient Summary: S/P Coloanal pull-through for low rectal cancer. Events Overnight: looks very well, no new issues or complaint Scheduled Medications ampicillin-sulbactam 3 g Intravenous Q6H erythromycin Both Eyes 4 times per day fat emulsion 250 mL Intravenous Daily fluconazole (DIFLUCAN) IV 200 mg Intravenous Q24H [START ON 01/24/2015] furosemide 40 mg Intravenous Daily heparin (porcine) 5000 unit/0.5mL 5,000 Units Subcutaneous Q8H insulin aspart 0-16 Units Subcutaneous 4 times per day levofloxacin 500 mg Intravenous Q24H pantoprazole 40 mg Intravenous QAM AC Continuous Infusions TPN ADULT 75 mL/hr at 01/22/152121 TPN ADULT PRN Medications acetaminophen, albuterol, dextrose, dextrose, HYDROmorphone OR HYDROmorphone, lip moist urizer, magnesium sulfate OR magnesium sulfate OR magnesium sulfate, nystatin, nysta tin, [DISCONTINUED] ondansetron OR ondansetron, petrolatum, polyethylene glycol, potassi um chloride OR potassium chloride OR potassium chloride, promethazine, sodium chlori de 0.9 %, sodium phosphate IVPB 15 mmol OR sodium phosphate IVPB 30 mmol OBJECTIVE Vital Signs: BP 103/60 mmHg | Pulse 92 | Temp(Src) 98.2 F (36.8 C) (Oral) | Resp 32 | Ht 1.626 m (5' 4") | Wt 69.854 kg (154 lb) | BMI 26.42 kg/m2 | SpO2 97% Temp: [97.8 F (36.6 C)-99.5 F (37.5 C)] 98.2 F (36.8 C) (01/24 1600) BP: (97-146)/(50-68) 103/60 mmHg (01/24 1600) Heart Rate: [87-108] 92 (01/24 1600) Resp: [24-39] 32 (01/24 1600) SpO2: [94 %-98 %] 97 % (01/24 1600) Weight: [69.854 kg (154 lb)-70 kg (154 lb 5.2 oz)] 69.854 kg (154 lb) (01/23 1455) Physical Exam Constitutional: He appears well-developed and well-nourished. No distress. HENT: Head: Atraumatic. Eyes: Pupils are equal, round, and reactive to light. Neck: Neck supple. Abdominal: Soft. He exhibits no distension. There is no tenderness. Genitourinary: Neurological: He is alert. Follows command Skin: Skin is warm. He is not diaphoretic. Vitals reviewed. DATA CBC: Lab Results Component Value Date WBC 10.73 01/23/2015 RBC 2.47* 01/23/2015 HGB 8.2* 01/23/2015 HCT 24.1* 01/23/2015 MCV 97.5 01/23/2015 MCH 33.3 01/23/2015 MCHC 34.2 01/23/2015 RDW 44.2 01/23/2015 PLT 408* 01/23/2015 MPV 8.7 01/23/2015 DIFFTYPE MANUAL 01/23/2015 BMP: Lab Results Component Value Date NA 135 01/23/2015 K 4.3 01/23/2015 CL 103 01/23/2015 CO2 28 01/23/2015 ANIONGAP 8 01/23/2015 GLUF 113* 01/23/2015 BUN 27* 01/23/2015 CREATININE 0.65* 01/23/2015 BCR 42 01/23/2015 CA 8.0* 01/23/2015 EGFR >60 01/23/2015 Magnesium: Lab Results Component Value Date MG 2.2 01/23/2015 Phosphorus: Lab Results Component Value Date PHOS 4.1 01/23/2015 PROBLEM LIST Principal Problem: Aspiration pneumonia (HCC) Active Problems: Rectal cancer (HCC) Persistent atrial fibrillation (HCC) Hyperlipidemia Abdominal pain Anemia Atrial fibrillation with RVR (HCC) Severe sepsis (HCC) Acute respiratory failure with hypoxia (HCC) Acute kidney injury (HCC) Acute pancreatitis ASSESSMENT & PLAN S/P Coloanal pull-through for low rectal cancer POD#19. Developed likely aspiration pneumo faye and sepsis. Afib now back in sinus again. He started declaring pancreatitis and liver dysfunction (likely due to hypotension). HIDA scan reviewed. Suggestive of hepatocellular disease. ileostomy is functional but slowed down form the pancreatitis. MRCP: reviewed - dobhoff tomorrow and start enteral feeds. - Chest tube might be DCed tomorrow Disposition: Code Status: Full Code Saleem Shore MD 01/23/2015 onversion Transac tion, Provider Unknown - 01/23/2015 4:04 PM PDTFormatting of this note might be different f rom the original. Case Management by BRIA Lima at 01/23/15 1604 Author: BRIA Lima Service: (none) Author Type: Tube Bender Hand Filed: 01/23/15 1605 Date of Service: 01/23/15 160 Status: Signed Statistical Reporting Analyst: BRIA Lima (Tube Bender Hand) angela Guadalupe for [facility] met with pt's brother and friend. Plan will be to transfer p t to [facility] on Tuesday. Matilde will arrange the transportation to [facility] tomorrow. I will place paperwork on pt's chart. onver alex Transaction, Provider Unknown - 01/23/2015 1:03 PM PDT Therapy Progress Note by Kitty Peng MA CCC-MAILROOM SUPERVISOR at 01/23/15 1303 Author: Kitty Peng MA CCC-MAILROOM SUPERVISOR Service: (none) Author Type: Speech and Language Patholo gist Filed: 01/23/15 1303 Date of Service: 01/23/15 1303 Status: Signed Statistical Reporting Analyst: Kitty Peng MA CCC-MAILROOM SUPERVISOR (Speech and Language Pathologist) 01/23/15 1238 Swallowing Assessment Eval Swallowing Treatment Yes Initial Swallow Assessment Respiratory Status Room air Behavior/Cognition Alert;Cooperative;Requires cueing;Distractible Dentition Some missing teeth;Poor dental/oral hygiene;Other (Comment) ( skin/dry mouth/pocketed phelgm in cheeks) Vision Functional for self-feeding Patient Positioning Partially reclined Baseline Vocal Quality Weak Consistencies Consistencies Assessed Yes Ice Chips Presentation Spoon Oral Phase Oral residue;Increased holding time Pharyngeal Phase Spontaneous double swallow;Decreased laryngeal elevation upon palpation;De layed swallow initiation Thin Presentation Spoon Oral Phase Thin Increased hold time Pharyngeal Phase Delayed swallow initiated;Decreased laryngeal elevation upon palpation;Thr oat clearing - immediate Aspen Presentation Spoon Oral Increased Anterior to Posterior Transit Pharyngeal Phase Delayed swallow initiated;Decreased laryngeal elevation upon palpation;Thr oat clearing - delayed;Spontaneous double swallow Recommendations Liquids Consistency Recommendations NPO/No liquids;Ice chips for oral comfort;Other (commen ts) (needs oral care daily, chapstick) Diet Consistency Recommendation NPO/No solids Recommendations Dysphagia treatment Risk for Aspiration Severe Recommended Form of Meds Feeding Tube;Other (comment);Meds crushed in puree (nonoral) Summary Pt requesting tequila. Pt agreeable to swallow therapy. Pt demo' poor oral hyiene w ith pocketed phelgm in skin cheek pockets. Provided oral care and suction prior to PO t rials. Pt lower front teeth are loose. Pt demo'd overt s/sx of aspiration on all PO trials. At this time pt continues to be at high risk to aspirate. Pt needs daily oral care and recom mend ice chips with supervision for oral comfort. ST to follow and assess for diet upgrade a s indicated. Staff Notified RN Plan of Care Treatment Plan ST to follow;Dysphagia treatment;Continue with current plan Follow up treatments Assessment for upgrade;Patient/Family education;Swallow strategies Dysphagia Goals Supervisor Beam Department Goals Advanced diet Pt will advanced diet in 3 days;Goal progressing Short Term Goals Tolerate diet upgrade trials Pt will tolerate diet upgrade trials With 1:1 supervision;Goal progressing onver alexmati Elmore, Provider Unknown - 01/23/2015 12:34 PM PDT Progress Notes by Anna Suresh RD, KENISHA at 01/23/15 1234 Author: Anna Suresh RD, CD Service: (none) Author Type: Registered Dietitian Filed: 01/23/15 1234 Date of Service: 01/23/15 1234 Status: Signed Statistical Reporting Analyst: Anna Suresh RD, CD (Registered Dietitian) 01/23/15 1223 Subjective Timepoint Follow up (high-risk) Pt c/o Pt was extubated on 01/21. Currently on room air and off pressors. Has been c/o abdo jessica pain. Plan is for MRI of abdomen this afternoon. Remains on bowel rest but may place s mall bore NG tube today under fluoroscopy per discussion in rounds. Fluid / Beverage Intake Oral Fluids Amount NPO except ice chips for oral comfort. Food Intake Amount of Food NPO per MAILROOM SUPERVISOR. Parenteral Nutrition Intake Access PICC Rate/Solution TPN (D22%, AA 6%) at 75 mL/hr plus lipids 20% 250 mL daily. Calories per day 2278 (31 kcal/kg) Non Protein calories per day 1846 Grams of Protein per day 108 (1.5 g protein/kg) Total Volume per day 2050 mL Nutrition-Focused Physical Findings Extremities, Muscles and Bones Pt has 1+ edeman in the extremities. Anthropometrics Weight change Wt is down 2.8 kg since admit. I/Os currently indicate that pt is approximate ly 2.5 L fluid negative. Further wt loss to be avoided. Will continue to monitor. Biochemical data, medical tests, and procedures reviewed Biochemical data, medical tests, and procedures reviewed BG has been variable in the 100s, Novolog SSI ordered and pharmacy is managing insulin in TPN bag. BUN 27 (H), Cr 0.65 (L) - s uggestive of muscle wasting. Electrolytes are WNL. Lipase remains elevated at 421 but has tr ended down - consistent with pancreatitis. Estimated Energy Needs Total Energy Estimated Needs 6824-5262 kcal/day Method for Estimating Needs 30-35 kcal/kg admit wt (72.8 kg) Estimated Protein Needs Total Protein Estimated Needs 87-109 g protein/day Method for Estimating Needs 1.2-1.5 g protein/kg admit wt (72.8 kg) Recommendations Recommended parenteral nutritional needs for pharmacy Recommend further increasing dextrose concentration to better meet pt's increased kcal/protein requirements for healing and recov tomasa. TPN (D25%, AA 6%) at 75 mL/hr plus lipids 20% 250 mL daily will provide 2462 kcal, 108 g protein, 2030 NPC, and 2049 mL total volume which supplies 34 kcal/kg and 1.5 g protein/kg based on admit wt. Recommended energy needs Trickle feeds when indicated. Nutritional Risk Nutritional risk High Follow up date 01/26/[address], CD, CNSC 01/23/2015 onver alex Transaction, Provider Unknown - 01/23/2015 11:19 AM PDT Progress Notes by Choco Hernandez RPH at 01/23/151118 Author: Choco Hernandez RPH Service: Pharmacy Author Type: Pharmacist Filed: 01/23/151118 Date of Service: 01/23/151118 Status: Signed Statistical Reporting Analyst: Choco Hernandez RPH (Pharmacist) TPN day 12, lytes WNL, will adjust chloride/acetate ratio as chloride has been decreasing a nd bicarb increasing, both are still WNL. Blood sugars in the 120's to 130's, will increase insulin in TPN to 65 units/24hr bag. onver alex Transaction, Provider Unknown - 01/23/2015 9:18 AM PDT Case Management by BRIA Lima at 01/23/15917 Author: BRIA Lima Service: (none) Author Type: Tube Bender Hand Filed: 01/23/15918 Date of Service: 01/23/15917 Status: Signed Statistical Reporting Analyst: BRIA Lima (Tube Bender Hand) Attended morning rounds. Pt needs MRI before [facility] Pt is on TPN. Dobhoff to be placed. Pt has mediport and 2 peripheral IV's. Plan is to transfer to [facility] when stable. onver alex Transaction, Provider Unknown - 01/23/2015 8:40 AM PDT Therapy Progress Note by Josafat Streeter PT at 01/23/15 08 Author: Josafat Streeter PT Service: (none) Author Type: Physical Therapist Filed: 01/23/15920 Date of Service: 01/23/15839 Status: Signed Statistical Reporting Analyst: Josafat Streeter PT (Physical Therapist) 01/23/15839 PT Last Visit PT Received On 01/23/15 Reason for Treatment Deconditioning Requires PT Follow Up Yes Precautions Other Precautions fall risk Other Comments Comments Pt has been extubated since last PT session. Pt vitals were stable: 108/58, 99-104 bpm, 96% on RA. Pt reported 7/10 pain before and after session. RN was notified. She report ed she had given 1 mg Dilaudid this AM. Pt did not follow instructions well but expressed de sire to si tupon standing. PT had to initiate weightshifting and pt refused to attempt march ing in place. Pt was able to maintain B knee extension without assist but he did not extend hips to command and reported waist pain. Cognition Overall Cognitive Status WFL Orientation Level Oriented Transfers Sit to/from Stand Maximal assist (to arise AND lower);x 1 person;Verbal instruction Mobility Ambulation Assistance BRIANNE Static Standing Balance Static Standing-Balance Support Right upper extremity support;Left upper extremity support; Trunk support Static Standing-Level of Assistance Moderate assist Static Standing-Comment/Duration 5 min Activity Tolerance Activity Tolerance Patient limited by fatigue Safety Devices Safety Devices in Place (RN monitoring) Restraints Initially in Place No Plan Treatment/Interventions Continue per Primary PT POC Progress Slow progress, decreased activity tolerance Recommendation Recommendations LTAC PT Ready for Discharge Yes Rahul Larios DO - 01/23/2015 7:34 AM PDTFormatting of this note might be different from the randolph adebayo. Progress Notes by Rahul Valles DO at 01/23/15733 Author: Rahul Valles DO Service: (none) Author Type: Physician Filed: 01/23/15 0756 Date of Service: 01/23/15733 Status: Signed Statistical Reporting Analyst: Rahul Valles DO (Physician) [facility] Service: Infectious Disease Progress Note Hospital Day: LOS: 20 days Post-Op Day: 10 Days Post-Op SUBJECTIVE Patient Summary: 64-year-old with rectal cancer, status post chemoradiation, status post robotic resection, ileostomy on 01/03. Had an episode of vomiting on 01/11, and also dillan gnosed with partial SBO. It appears that patient was noncompliant with nothing by mouth stat us and may have aspirated. He was brought to the ICU with respiratory failure intubated and ventilated. Started on IV Zosyn plus vancomycin plus metronidazole. 01/15 Patient remains intubated and ventilated. Remains on low-dose dobutamine and pressor s. Failed spontaneous breathing trial. TPN: Day #5 Low-grade temperature 100.5 Fahrenheit noted this morning. White count remains normal. 01/17 - intubated in the evening for hypoxemic respiratory failure. 01/21 - extubated. CC: Abdominal pain, pneumonia Chart reviewed: Intubated last evening. Subjective The patient continues to look very uncomfortable when he is examined were removed, but vijaya ed any pain or discomfort through the pension fund manager. When asked specifically what is bothering him the most when he looks so uncomfortable, he stated "nothing". He specifically denies ab dominal pain, nausea, shortness of breath, cough. ROS No fevers, chills or sweats. No nausea, vomiting or diarrhea. No rashes or pruritis. Scheduled Medications ampicillin-sulbactam 3 g Intravenous Q6H erythromycin Both Eyes 4 times per day fat emulsion 250 mL Intravenous Daily fluconazole (DIFLUCAN) IV 200 mg Intravenous Q24H furosemide 40 mg Intravenous BID heparin (porcine) 5000 unit/0.5mL 5,000 Units Subcutaneous Q8H insulin aspart 0-16 Units Subcutaneous 4 times per day levofloxacin 500 mg Intravenous Q24H lidocaine buffered 1% 0.5 mL Intradermal Once pantoprazole 40 mg Intravenous QAM AC Continuous Infusions TPN ADULT 75 mL/hr at 01/22/152121 PRN Medications acetaminophen, albuterol, dextrose, dextrose, HYDROmorphone OR HYDROmorphone, lip moist urizer, magnesium sulfate OR magnesium sulfate OR magnesium sulfate, nystatin, nysta tin, [DISCONTINUED] ondansetron OR ondansetron, petrolatum, polyethylene glycol, potassi um chloride OR potassium chloride OR potassium chloride, promethazine, sodium phosph ate IVPB 15 mmol OR sodium phosphate IVPB 30 mmol OBJECTIVE Vital Signs: BP 104/68 mmHg | Pulse 90 | Temp(Src) 97.9 F (36.6 C) (Oral) | Resp 28 | Ht 1.626 m (5' 4") | Wt 70 kg (154 lb 5.2 oz) | BMI 26.48 kg/m2 | SpO2 96% Temp: [97.8 F (36.6 C)-98.7 F (37.1 C)] 97.9 F (36.6 C) (01/23 040) BP: (94-114)/(50-68) 104/68 mmHg (01/23 050) Heart Rate: [80-99] 90 (01/23 500) Resp: [24-34] 28 (01/23 500) SpO2: [93 %-98 %] 96 % (01/23 500) Weight: [70 kg (154 lb 5.2 oz)] 70 kg (154 lb 5.2 oz) (01/23 0430) Exam: Const: Vitals reviewed. No acute distress. Skin: No rashes, no edema Right chest Mediport site unremarkable. Right IJ triple-lumen catheter has been removed. ENT: there is no evidence of thrush. Lungs: clear to auscultation bilaterally. No pleural rub. Heart: RRR, no murmur Abd: soft, tender only in the epigastric region, + bowel sounds DATA CBC: Lab Results Component Value Date WBC 10.73 01/23/2015 RBC 2.47* 01/23/2015 HGB 8.2* 01/23/2015 HCT 24.1* 01/23/2015 MCV 97.5 01/23/2015 MCH 33.3 01/23/2015 MCHC 34.2 01/23/2015 RDW 44.2 01/23/2015 PLT 408* 01/23/2015 MPV 8.7 01/23/2015 DIFFTYPE MANUAL 01/23/2015 WBC: Lab Results Component Value Date WBC 10.73 01/23/2015 NEUTABSMAN 9.02* 01/23/2015 NEUTROABS 13.70* 01/21/2015 NEUTROMAN 84 01/23/2015 LYMPHOABS 0.64* 01/23/2015 LYMPHOMAN 6 01/23/2015 LYMPHSABS 0.35* 01/21/2015 LYMPHOPCT 2.26 01/21/2015 MONOABSMAN 0.32 01/23/2015 MONOMAN 3 01/23/2015 MONOPCT 6.77 01/21/2015 EOSINOABS 0.32 01/23/2015 EOSINOMAN 3 01/23/2015 EOSABS 0.18 01/21/2015 EOSPCT 1.18 01/21/2015 BASOSABS 0.04 01/21/2015 BASOPCT 0.25 01/21/2015 PLTEST INCREASED 01/23/2015 BANDSPCT 3 01/23/2015 NRBC 1* 01/18/2015 METAABS 0.11* 01/23/2015 METAPCT 1 01/23/2015 MYELOABS 0.27* 01/18/2015 MYELOPCT 2 01/18/2015 COMDIFF SLIDE SCANNED, AGREES WITH AUTOMATED RESULTS. 01/21/2015 CMP: Lab Results Component Value Date NA 135 01/23/2015 K 4.3 01/23/2015 CL 103 01/23/2015 CO2 28 01/23/2015 ANIONGAP 8 01/23/2015 GLUF 113* 01/23/2015 BUN 27* 01/23/2015 CREATININE 0.65* 01/23/2015 BCR 42 01/23/2015 CA 8.0* 01/23/2015 PROT 5.7* 01/20/2015 ALB 1.2* 01/20/2015 GLOB 2.7 01/12/2015 BILITOT 3.0* 01/20/2015 ALP 88 01/20/2015 AST 28 01/20/2015 ALT 82* 01/20/2015 EGFR >60 01/23/2015 Microbiology: BAL culture shows Jazmin albicans, no bacterial growth. PROBLEM LIST Principal Problem: Aspiration pneumonia (HCC) Active Problems: Rectal cancer (HCC) Persistent atrial fibrillation (HCC) Hyperlipidemia Abdominal pain Anemia Atrial fibrillation with RVR (HCC) Severe sepsis (HCC) Acute respiratory failure with hypoxia (HCC) Acute kidney injury (HCC) Acute pancreatitis ASSESSMENT & PLAN Septic shock, multifactorial Secondary to severe aspiration pneumonia, pancreatitis. CT scan yesterday showed significan t parapneumonic effusion. Appreciate chest tube placement. This morning's chest x-ray sugges ts adequate drainage. Leukocytosis persists despite broad-spectrum antibiotic coverage and c hest tube placement. BAL has only shown Jazmin albicans, which could be a colonizer, althou gh he has made some progress after addition of fluconazole on January 21. Continue Unasyn plus levofloxacin - day #13/14 today. Continue fluconazole day #3, recomme nd 5-7 days total. We will follow-up on pleural fluid cultures and adjust antibiotic regimen if indicated. Bacteremia Gram-negative rods -now identified as Escherichia coli -noted only in the anaerobic bottle of one set from cultures on 01/11. Possible bacteremia from aspiration pneumonia sputum has also shown Escherichia coli. We will continue antibiotics for a total of 14 days following first negative blood culture (January 11). Rectal cancer Status post surgery on 01/03. Dr. Simons will assume Infectious Diseases followup on Tuesday01/24/15. Code Status: Full Code RAHUL VALLES DO 01/23/2015 Kamala Leyva A RNP - 01/23/2015 7:11 AM PDT Progress Notes by JONATHON Beverly at 01/23/15710 Author: JONATHON Beverly Service: Speech And Hearing Clinic Director Author Type: Nurse Practitioner Filed: 01/23/15 1312 Date of Service: 01/23/15710 Status: Signed Statistical Reporting Analyst: JONATHON Beverly (Nurse Practitioner) [facility] Service: Speech And Hearing Clinic Director Progress Note Jose Eaton 64 y.o. Hospital Day: LOS: 20 days Post-Op Day: 14 Days Post-Op Consulting Physicians Treatment Team: Consulting Physician: Amy Simons MD Consulting Physician: Mario Crawford MD Admitting Provider: Saleem Shore MD SUBJECTIVE Patient Summary: Pt is a 64 y/o Burkinan speaking M with past medical history significant for hyperlipidemia, rectal cancer, on chemotherapy with 5-FU . 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 . While on the floor the pt had some episodes of n/v, tachycardia, temp spikes, episodes of afib, was diagnosed with SBO. Pt complained of th irst and was found drinking water out of the sink despite being educated regarding his NPO s tatus, it is thought that he aspirated. 01/11/15 a RAT was called as the pt was hypotensive & tachycardic, he was given 5L crystall oids and his BP improved but he became tachypneic. Stat blood gas showed metabolic acidosis and lactic acidosis. Pt showed signs of respiratory fatigue with increasing O2 requirement a nd was subsequently intubated, given 2 pushes of bicarb. Post-intubation CXR revealed R-side d pneumonia, he was started on IV Zosyn plus vancomyin. ICU Timeline: 01/12: Pt transferred to ICU. RIJ, arterial line placed. 01/13: Pt hypotensive requiring pressor. Echo showed reduced EF. Started on dobutamine w ith improvement of BP. Developed Afib with RVR. Started on digoxin, converted to sinus rhyth m. 01/15: Off pressors. Pt went back into Afib. Failed SBT. Diuresed with Lasix. Continued on dobutamine. 01/16: Extubated, on 2L O2. Started on Precedex d/t agitation & tachypnea. Complaining of RUQ abd pain & splinting while breathing. Acute pancreatitis. 01/18: reintubated and bronch w LLL mucus plug : right pigtail placed for effusion 01/21: extubated Events Overnight: Extubated, out of bed on chair. Denies dyspnea, denies cough. Not on vasopressors. SCHEDULED MEDICATIONS ampicillin-sulbactam 3 g Intravenous Q6H erythromycin Both Eyes 4 times per day fat emulsion 250 mL Intravenous Daily fluconazole (DIFLUCAN) IV 200 mg Intravenous Q24H furosemide 40 mg Intravenous BID heparin (porcine) 5000 unit/0.5mL 5,000 Units Subcutaneous Q8H insulin aspart 0-16 Units Subcutaneous 4 times per day levofloxacin 500 mg Intravenous Q24H lidocaine buffered 1% 0.5 mL Intradermal Once pantoprazole 40 mg Intravenous QAM AC CONTINUOUS INFUSIONS TPN ADULT 75 mL/hr at 01/22/152 OBJECTIVE VITAL SIGNS Temp: [97.8 F (36.6 C)-98.7 F (37.1 C)] 97.9 F (36.6 C) Heart Rate: [80-99] 90 Resp: [24-34] 28 BP: (94-114)/(50-68) 104/68 mmHg Intake/Output Summary (Last 24 hours) at 01/23/15 0711 Last data filed at 01/23/15 0450 Gross per 24 hour Intake 3020 ml Output 5305 ml Net -2285 ml EXAM GEN: awake, alert, verbal NEURO: PERRLA, no facial asymmetry, no motor weakness HEENT: sclerae clear, nonicteric, oral mmm, pink, no exudates NECK: supple, trachea midline, intubated HEART: normal rate, regular, no murmur, rub or gallop LUNGS: scattered crackles bilat, dec BS at bases, no wheezing or rhonchi, pigtail on right ABD: soft, no distended, colostomy w dark green stool, nontender to palpation EXTR: no edema, clubbing or cyanosis SKIN: warm, dry, edematous most pronounced in the scrotal region, skin surrounding abdomina l wound is c/d/i and non erythematous; no e/o skin breakdown over the occiput, scapulae, elb ows, sacrum or heels LINES/TUBES: Port A Cath R chest 09/06/14, pigtail, R (01/20) DATA Recent Labs Lab 01/23/1532101/22/[id number]/20/15426 WBC 10.73 12.23* 10.60 15.31* 11.70* RBC 2.47* 2.60* 2.32* 2.54* 2.50* HGB 8.2* 8.3* 7.6* 8.3* 8.3* HCT 24.1* 25.4* 25.2* 24.5* 24.1* MCV 97.5 97.8 108.4* 96.5 96.5 MCH 33.3 31.9 32.7 32.6 33.3 MCHC 34.2 32.6 30.2* 33.8 34.5 RDW 44.2 46.4 57.3* 44.2 42.9 PLT 408* 320 291 254 185 MPV 8.7 8.6 9.1 9.4 9.7 BANDSABS 0.32* 0.86* 0.64* -- -- NEUTROABS -- -- -- 13.70* 10.54* LYMPHSABS -- -- -- 0.35* 0.31* MONOSABS -- -- -- 1.04* 0.57 BASOSABS -- -- -- 0.04 0.03 EOSABS -- -- -- 0.18 0.25 MORPH 1+ RBC AND PLT MORPHOLOGY APPEAR NORMAL 2+ RBC AND PLT MORPHOLOGY APPEAR NORMAL RBC A ND PLT MORPHOLOGY APPEAR NORMAL Recent Labs Lab 01/23/[id number]/1542601/19/15 0535 01/18/15 0509 NA 135 -- 137 136 -- 136 137 140 K 4.3 4.1 4.2 4.3 < > 4.1 4.2 4.4 CL 103 -- 104 106 -- 106 106 108 CO2 28 -- 26 23 -- 22* 26 27 ANIONGAP 8 -- 11 11 -- 12 10 10 GLUF 113* -- 123* 140* -- 119* 128* 129* BUN 27* -- 27* 27* -- 27* 23 25 CREATININE 0.65* -- 0.57* 0.65* -- 0.70 0.67* 0.61* BCR 42 -- 47 42 -- 38 35 41 CA 8.0* -- 7.8* 7.4* -- 7.1* 7.2* 7.4* ALB -- -- -- -- -- 1.2* 1.1* 1.2* PROT -- -- -- -- -- 5.7* 5.2* 5.2* BILITOT -- -- -- -- -- 3.0* 3.0* 3.0* ALT -- -- -- -- -- 82* 113* 197* AST -- -- -- -- -- 28 26 55* EGFR >60 -- >60 >60 -- >60 >60 >60 PHOS 4.1 4.1 4.1 3.5 < > 3.7 4.0 3.6 MG 2.2 2.1 2.4 2.3 < > 2.2 2.2 2.6* < > = values in this interval not displayed. No results for input(s): INR in the last 168 hours. Amylase: Lab Results Component Value Date AMYLASE 133* 01/17/2015 Lipase: Lab Results Component Value Date LIPASE 421* 01/23/2015 IMAGING X-ray Abdomen Acute Series 01/17/2015 1. Worsening infiltrate, with increasing small to moderate right pleural effu alex. 2. Persistent mild infiltrate left lung base. 3. Persistent mild cardiac enlargement . 4. Unchanged lines. Ct Chest Without Contrast 01/19/2015 1. Worsening dense infiltrative changes throughout most of the right lung, wi th increasing small to moderate right pleural effusion and persistent minimal left effusion. 2. Minimal left basilar atelectasis or infiltrate, subtly increased. 3. No adenopathy. 4. Stable tubes and lines. X-ray Chest 1 View 01/23/2015 1. Right pigtail catheter overlying the pleural space with a kink at the mid thorax. 2. Unchanged consolidation of the right lung predominantly at the right lung base. Nm Hepatobiliary With Cck 01/17/2015 1. Significant cholestasis with persistent hepatic uptake seen 4 hours post i njection. 2. Gallbladder not initially seen at 60 minutes but does fill 4 hours post Cholet ec injection suggesting that the cystic duct is patent. LEM LIST Principal Problem: Aspiration pneumonia (HCC) Active Problems: Rectal cancer (HCC) Persistent atrial fibrillation (HCC) Hyperlipidemia Abdominal pain Anemia Atrial fibrillation with RVR (HCC) Severe sepsis (HCC) Acute respiratory failure with hypoxia (HCC) Acute kidney injury (HCC) Acute pancreatitis ASSESSMENT & PLAN NEURO: Awake, alert, no localizing deficits. Cont to c/o upper abd/right lateral rib pain. Pt indicates only a "small amt of pain" but is grimacing/guarding. See abd plan. Otherwise i ntact. No issues CV: Afib: digoxin level 1.9. Digoxin dc'd. He is in sinus rhythm on the monitor at present . Restart digoxin or start bblocker if this becomes an issue. Acute dilated cardiomyopathy, decreased LV systolic function: Dr. Crawford consulted, follow ing, will start BB when able to take PO. PULM: RLL aspiration pneumonia: Completes Unasyn/Levaquin 01/24. Bronch BAL grew jazmin. O n fluconazole (01/23, day 3 of 5-7). Acute respiratory failure with hypoxia: RESOLVED. On RA GI/NUTRITION: Acute pancreatitis: Ok to start feeding per surgery. TFs now again on hold with increas ed lipase (had been as low as 199, now 421). Discussed with Dr Carrion. Plan to take to MRI today for abd. This could represent formation of pseudocyst (long standing hx of ETOH) or hint at pancreatic duct scarring. Will call GI if + findings on MRI. If negative, consi carloz IR placement of SBFT past ligament of Treitz. Elevated AST, ALT, direct & total bili: ischemic from hypotension versus hepatobiliary p athology. RESOLVED Rectal cancer: S/p coloanal pull-through for rectal cancer. RENAL/LYTES: NICOL: Resolved 01/12. Cr 0.65 (01/23) Decrease lasix to 40mg IV daily. ID: Aspiration pneumonia: on unasyn/levaquin per ID (last day 01/24) E. coli bacteremia, sepsis: Currently on Unasyn plus levofloxacin (last day 01/24) Jazmin in BAL: fluconazole (01/23, day 3 of 5-7). HEME: Anemia: likely secondary to chronic disease. Hgb 8.2 ENDO: BG: On SSI, goal of BG below 180. BGs 113, 123 MUSC/SKIN: Colostomy, surgical wounds: Healing well, continue with wound care. PT/OT: out of bed to chair. PT. PROPHYLAXIS: Stress ulcer prophylaxis: Protonix DVT prophylaxis: heparin, SCD's VAP bundle: NA Disposition: continue ICU care. May need to delay transfer to LTACH until results of MRI/p ritika are established Code Status: Full Code JONATHON Beverly 01/23/2015 *Please bill 35 minutes of critical care time spent evaluating the patient, reviewing the d jose guadalupe and formulating a plan exclusive of all other procedures. Ebony Lackey MS CCC-MAILROOM SUPERVISOR - 01/22/2015 11:31 AM PDTFormatting of this note might be different from the orig inal. Therapy Progress Note by Ebony Davenport MS CCC-MAILROOM SUPERVISOR at 01/22/15 1131 Author: Ebony Davenport MS CCC-MAILROOM SUPERVISOR Service: (none) Author Type: Speech and Language Pathol ogist Filed: 01/22/15 1132 Date of Service: 01/22/15 113 Status: Signed Statistical Reporting Analyst: Ebony Davenport MS CCC-MAILROOM SUPERVISOR (Speech and Language Pathologist) 01/22/15 1030 Swallowing Assessment Eval Swallowing Evaluation Yes (re-eval after pt status change) Initial Swallow Assessment Respiratory Status Room air History of Intubation Yes Length of Intubations (days) 4 days (this was pt's second intubation this stay) Date extubated 01/22/15 Behavior/Cognition Alert;Requires cueing Dentition Some missing teeth Vision Functional for self-feeding Patient Positioning Partially reclined Baseline Vocal Quality Weak Volitional Cough Weak Volitional Swallow Delayed Oral Motor Exam Labial ROM WFL Labial Symmetry WFL Labial Strength WFL Lingual ROM WFL Lingual Symmetry WFL Lingual Strength WFL Facial Symmetry WFL Vocal Quality Weak Velum WFL Mandible WFL Consistencies Consistencies Assessed Yes Ice Chips Presentation Spoon Oral Phase Increased holding time Pharyngeal Phase Delayed swallow initiation;Decreased laryngeal elevation upon palpation;No overt signs or symptoms of aspirations (x3 trials then pt refused further) Thin Presentation Cup;Self Fed Oral Phase Thin Increased hold time Pharyngeal Phase Delayed swallow initiated;Decreased laryngeal elevation upon palpation;Cou gh - delayed Aspen Presentation Cup Oral Increased Anterior to Posterior Transit Pharyngeal Phase Spontaneous multiple swallow;Decreased laryngeal elevation upon palpation; Delayed swallow initiated Puree Presentation Spoon Oral Phase Increased oral holding time Pharyngeal Delayed Swallow;Decreased Laryngeal Elevation;Spontaneous multiple swallow (x3 trials then pt refused further) Recommendations Liquids Consistency Recommendations NPO/No liquids;Ice chips for oral comfort Diet Consistency Recommendation NPO/No solids Recommendations Dysphagia treatment;1:1 supervision;Feeding assist Risk for Aspiration Severe Compensatory Swallowing Strategies Upright as possible for all oral intake Recommended Form of Meds Meds crushed in puree (most safe is non oral; crushed in puree is next best) Summary Pt w/delayed responses, not oriented or able to genereate where he was or reason fo r stay. Pt reported he drinks tequila, beer and water at home most of the time. He doesn't h ardly eat and didn't want to eat at all. MAILROOM SUPERVISOR ed re:importance of safe swallowing as pt has p alemmonia from drinking water against MD's order. Pt then stated agreement, however would not take more then 1-3 bites/sips and aspiration risk is high at this time. MAILROOM SUPERVISOR to con't to re- assess as pt is appropriate. Staff Notified RN Plan of Care Treatment Plan ST to follow;Dysphagia treatment;Daily 4 to 6 times a week Follow up treatments Assessment for upgrade Dysphagia Goals Supervisor Beam Department Goals Advanced diet Pt will advanced diet in 3 days;New/revised goal Short Term Goals Tolerate diet upgrade trials Pt will tolerate diet upgrade trials With 1:1 supervision;New/revised goal EBONY DAVENPORT MS CCC-MAILROOM SUPERVISOR 01/22/2015 onversion Hernandez saction, Provider Unknown - 01/22/2015 11:14 AM PDTFormatting of this note might be differen t from the original. Progress Notes by Choco Hernandez RPH at 01/22/151113 Author: Choco Hernandez RPH Service: Pharmacy Author Type: Pharmacist Filed: 01/22/151113 Date of Service: 01/22/151113 Status: Signed Statistical Reporting Analyst: Choco Hernandez RPH (Pharmacist) TPN day 11, lytes WNL, blood sugars in the 120's to 150's- will increase insulin in TPN to 60 units/24hr bag, no other changes onver alex Transaction, Provider Unknown - 01/22/2015 9:35 AM PDT Case Management by BRIA Lima at 01/22/15 0996 Author: BRIA Lima Service: (none) Author Type: Tube Bender Hand Filed: 01/22/15 1544 Date of Service: 01/22/1506 Status: Addendum Statistical Reporting Analyst: BRIA Lima (Tube Bender Hand) Related Notes: Original Note by BRIA Lima (Tube Bender Hand) filed at 01/22/15 0905 Attended morning rounds. Pt was extubated yesterday. On room air. On TPN and lipids. Pt t o have swallow eval today and start to mobilize. Received t.c from Thania at [facility] yesterday. Pt has been accepted for admit when med ically stable if he does not go to an LTAC first. Dr. Merrill plans to speak with surgeon. If no further concerns, plan will be to transfer pt to [facility] on Tuesday. Faxed updated clinical to angela Nguyen who is coverin g for Matilde Segundo. ([phone], fax: [phone]). Addendum:Mirela Segundo from [facility] will be here tomorrow. Per Asya, another liason with [facility], pt will likely be able to transfer on Tuesday. Will need to get official auth for transfer tomorrow. Stalin St MD - 01/22/2015 7:45 AM PDTFormatting of this note might be differ ent from the original. Progress Notes by Stalin Finney MD at 01/22/15 4699 Author: Stalin Finney MD Service: Speech And Hearing Clinic Director Author Type: Physician Filed: 01/22/15 1425 Date of Service: 01/22/1592 Status: Signed Statistical Reporting Analyst: Stalin Finney MD (Physician) [facility] Service: Speech And Hearing Clinic Director Progress Note Jose Eaton 64 y.o. Hospital Day: LOS: 19 days Post-Op Day: 14 Days Post-Op Consulting Physicians Treatment Team: Consulting Physician: Amy Simons MD Consulting Physician: Mario Crawford MD Admitting Provider: Saleem Shore MD SUBJECTIVE Patient Summary: Pt is a 64 y/o Burkinan speaking M with past medical history significant for hyperlipidemia, rectal cancer, on chemotherapy with 5-FU . 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 . While on the floor the pt had some episodes of n/v, tachycardia, temp spikes, episodes of afib, was diagnosed with SBO. Pt complained of th irst and was found drinking water out of the sink despite being educated regarding his NPO s tatus, it is thought that he aspirated. 01/11/15 a RAT was called as the pt was hypotensive & tachycardic, he was given 5L crystall oids and his BP improved but he became tachypneic. Stat blood gas showed metabolic acidosis and lactic acidosis. Pt showed signs of respiratory fatigue with increasing O2 requirement a nd was subsequently intubated, given 2 pushes of bicarb. Post-intubation CXR revealed R-side d pneumonia, he was started on IV Zosyn plus vancomyin. ICU Timeline: 01/12: Pt transferred to ICU. RIJ, arterial line placed. 01/13: Pt hypotensive requiring pressor. Echo showed reduced EF. Started on dobutamine w ith improvement of BP. Developed Afib with RVR. Started on digoxin, converted to sinus rhyth m. 01/15: Off pressors. Pt went back into Afib. Failed SBT. Diuresed with Lasix. Continued on dobutamine. 01/16: Extubated, on 2L O2. Started on Precedex d/t agitation & tachypnea. Complaining of RUQ abd pain & splinting while breathing. Acute pancreatitis. 01/18: reintubated and bronch w LLL mucus plug : right pigtail placed for effusion 01/21: extubated Events Overnight: Extubated, out of bed on chair. Denies dyspnea, denies cough. Not on vasopressors. SCHEDULED MEDICATIONS ampicillin-sulbactam 3 g Intravenous Q6H digoxin 0.25 mg Intravenous Daily erythromycin Both Eyes 4 times per day fat emulsion 250 mL Intravenous Daily fluconazole (DIFLUCAN) IV 200 mg Intravenous Q24H furosemide 40 mg Intravenous BID heparin (porcine) 5000 unit/0.5mL 5,000 Units Subcutaneous Q8H insulin aspart 0-16 Units Subcutaneous 4 times per day levofloxacin 500 mg Intravenous Q24H lidocaine buffered 1% 0.5 mL Intradermal Once pantoprazole 40 mg Intravenous QAM AC CONTINUOUS INFUSIONS dexmedetomidine in NS 0.5 mcg/kg/hr (01/21/15 1313) norepinephrine in D5W 64 mcg/mL Stopped (01/21/15 1800) TPN ADULT 75 mL/hr at 01/21/155 OBJECTIVE VITAL SIGNS Temp: [97.7 F (36.5 C)-100.3 F (37.9 C)] 97.7 F (36.5 C) Heart Rate: [72-92] 82 Resp: [20-49] 34 BP: (86-119)/(50-64) 112/64 mmHg FiO2 : [25 %-30 %] 25 % Intake/Output Summary (Last 24 hours) at 01/22/15 0733 Last data filed at 01/22/15 0631 Gross per 24 hour Intake 3363 ml Output 6030 ml Net -2667 ml EXAM GEN: awake, alert, verbal NEURO: PERRLA, no facial asymmetry, no motor weakness HEENT: sclerae clear, nonicteric, oral mmm, pink, no exudates NECK: supple, trachea midline, intubated HEART: normal rate, regular, no murmur, rub or gallop LUNGS: scattered crackles bilat, dec BS at bases, no wheezing or rhonchi, pigtail on right ABD: soft, no distended, colostomy w dark green stool, nontender to palpation EXTR: no edema, clubbing or cyanosis SKIN: warm, dry, edematous most pronounced in the scrotal region, skin surrounding abdomina l wound is c/d/i and non erythematous; no e/o skin breakdown over the occiput, scapulae, elb ows, sacrum or heels LINES/TUBES: Port A Cath R chest 09/06/14, pigtail, R (01/20) DATA Recent Labs Lab 01/22/15 0626 01/22/15 0415 01/21/15 0419 01/20/15 0427 01/19/15 0535 WBC 12.23* 10.60 15.31* 11.70* 11.53* RBC 2.60* 2.32* 2.54* 2.50* 2.48* HGB 8.3* 7.6* 8.3* 8.3* 8.4* HCT 25.4* 25.2* 24.5* 24.1* 24.0* MCV 97.8 108.4* 96.5 96.5 96.8 MCH 31.9 32.7 32.6 33.3 33.6 MCHC 32.6 30.2* 33.8 34.5 34.8 RDW 46.4 57.3* 44.2 42.9 44.6 PLT 320 291 254 185 144* MPV 8.6 9.1 9.4 9.7 9.9 BANDSABS 0.86* 0.64* -- -- 0.23* NEUTROABS -- -- 13.70* 10.54* -- LYMPHSABS -- -- 0.35* 0.31* -- MONOSABS -- -- 1.04* 0.57 -- BASOSABS -- -- 0.04 0.03 -- EOSABS -- -- 0.18 0.25 -- MORPH RBC AND PLT MORPHOLOGY APPEAR NORMAL 2+ RBC AND PLT MORPHOLOGY APPEAR NORMAL RBC AND PLT MORPHOLOGY APPEAR NORMAL RBC AND PLT MORPHOLOGY APPEAR NORMAL Recent Labs Lab 01/22/15 0626 01/21/15 0419 01/20/15 1725 01/20/15 0427 01/19/15 0535 01/18/15 0509 NA 137 136 -- 136 137 140 K 4.2 4.3 4.1 4.1 4.2 4.4 CL 104 106 -- 106 106 108 CO2 26 23 -- 22* 26 27 ANIONGAP 11 11 -- 12 10 10 GLUF 123* 140* -- 119* 128* 129* BUN 27* 27* -- 27* 23 25 CREATININE 0.57* 0.65* -- 0.70 0.67* 0.61* BCR 47 42 -- 38 35 41 CA 7.8* 7.4* -- 7.1* 7.2* 7.4* ALB -- -- -- 1.2* 1.1* 1.2* PROT -- -- -- 5.7* 5.2* 5.2* BILITOT -- -- -- 3.0* 3.0* 3.0* ALT -- -- -- 82* 113* 197* AST -- -- -- 28 26 55* EGFR >60 >60 -- >60 >60 >60 PHOS 4.1 3.5 4.2 3.7 4.0 3.6 MG 2.4 2.3 2.2 2.2 2.2 2.6* No results for input(s): INR in the last 168 hours. Amylase: Lab Results Component Value Date AMYLASE 133* 01/17/2015 Lipase: Lab Results Component Value Date LIPASE 199 01/19/2015 IMAGING CXR 01/22/15 1. Small right apical pneumothorax measuring 6 mm from the chest wall. 2. Persistent right lung consolidation, unchanged from the prior exam. Ultrasound Abdomen Limited 01/16/2015 1. Contracted gallbladder with the gallbladder wall thickening, sludge, and p ositive sonographic Brar sign. Acute cholecystitis is not excluded. 2. Small 4 mm polyp w ithin the gallbladder. Ct Chest Abdomen Pelvis With Iv Contrast 01/12/2015 1. Extensive right lung pneumonia with small parapneumonic effusion. 2. Mild cardiomegaly and severe coronary to ossifications. 3. Generalized anasarca, commonly seen i n septic patient's. There are several bubbles of gas in the subcutaneous tissues of uncertai n etiology but possibly iatrogenic. Correlate to exclude gas-forming soft tissue infection. 4. Fluid-filled proximal small bowel with relatively decompressed distal small bowel proxima l to the ileostomy. Favor normal variant/ileus over bowel obstruction. Gastroenteritis /radi ation enteritis could have a similar picture. RADIA Electronically signed by Nba cruz MD on Jan 12 2015 6:44AM Referring Provider Line: [phone] ID: [id number] Echo Cardiac Adult Complete 01/12/2015 1. Overall left ventricular systolic function is moderately impaired with, an EF between 35 - 40 %. 2. Pseudonormal LV diastolic filling pattern, consistent with elevated LA pressure and moderate dysfunction (Grade II). 3. The right ventricle is normal in size. 4. The right ventricular systolic function is impaired. 5. Moderate mitral regurgitation is present. 6. Fnzv-dd-fwnbukqw tricuspid regurgitation present. 7. There is mild pulmonary hyp ertension. PROBLEM LIST Principal Problem: Aspiration pneumonia (HCC) Active Problems: Rectal cancer (HCC) Persistent atrial fibrillation (HCC) Hyperlipidemia Abdominal pain Anemia Atrial fibrillation with RVR (HCC) Severe sepsis (HCC) Acute respiratory failure with hypoxia (HCC) Acute kidney injury (HCC) Acute pancreatitis ASSESSMENT & PLAN NEURO: Awake, alert, no localizing deficits. Off precedex and fentanyl. Denies pain. CV: Afib: digoxin level 1.9. Digoxin held. He is in sinus rhythm on the monitor at present . Restart digoxin or start bblocker if this becomes an issue. Acute dilated cardiomyopathy, decreased LV systolic function: Dr. Crawford consulted, follow ing, will start BBlocker when able to take PO. Hypotension: resolved; off pressors. PULM: RLL aspiration pneumonia: Currently on unasyn and levaquin per ID. Bronch BAL grew can dida. On fluconazole. Acute respiratory failure with hypoxia: Extubated to BIPAP yesterday, currently on room air and off BIPAP. GI/NUTRITION: Acute pancreatitis: Ok to start feeding per surgery. No abdominal pain. Elevated AST, ALT, direct & total bili: ischemic from hypotension versus hepatobiliary p athology. Improving as well. Rectal cancer: S/p coloanal pull-through for rectal cancer. Swallow eval today RENAL/LYTES: NICOL: Resolved 01/12 Decrease lasix to 40mg IV daily. ID: Aspiration pneumonia: on unasyn/levaquin per ID. E. coli bacteremia, sepsis: Currently on Unasyn plus levofloxacin. Jazmin in BAL: fluconazole. HEME: Anemia: likely secondary to chronic disease. Hgb 8.3. ENDO: BG: On SSI, goal of BG below 180 MUSC/SKIN: Colostomy, surgical wounds: Healing well, continue with wound care. PT/OT: out of bed to chair. PT. PROPHYLAXIS: Stress ulcer prophylaxis: Protonix DVT prophylaxis: heparin, SCD's VAP bundle: NA Disposition: continue ICU care for close monitoring of respiratory status. Code Status: Full Code Stalin Finney MD 01/22/2015 *Please bill 35 minutes of critical care time spent evaluating the patient, reviewing the d jose guadalupe and formulating a plan exclusive of all other procedures. Rahul Larios DO - 01/22/2015 7:08 AM PDTFormatting of this note might be different from the randolph ginal. Progress Notes by Rahul Valles DO at 01/22/15707 Author: Rahul Valles DO Service: (none) Author Type: Physician Filed: 01/22/15727 Date of Service: 01/22/15707 Status: Signed Statistical Reporting Analyst: Rahul Valles DO (Physician) [facility] Service: Infectious Disease Progress Note Hospital Day: LOS: 19 days Post-Op Day: 10 Days Post-Op SUBJECTIVE Patient Summary: 64-year-old with rectal cancer, status post chemoradiation, status post robotic resection, ileostomy on 01/03. Had an episode of vomiting on 01/11, and also dillan gnosed with partial SBO. It appears that patient was noncompliant with nothing by mouth stat us and may have aspirated. He was brought to the ICU with respiratory failure intubated and ventilated. Started on IV Zosyn plus vancomycin plus metronidazole. 01/15 Patient remains intubated and ventilated. Remains on low-dose dobutamine and pressor s. Failed spontaneous breathing trial. TPN: Day #5 Low-grade temperature 100.5 Fahrenheit noted this morning. White count remains normal. 01/17 - intubated in the evening for hypoxemic respiratory failure. CC: Abdominal pain, pneumonia Chart reviewed: Intubated last evening. Subjective The patient has been cleared by surgery for enteral feeding. He still has occasional abdom inal pain. He denies shortness of breath and cough. ROS No fevers, chills or sweats. No nausea, vomiting or diarrhea. No rashes or pruritis. Scheduled Medications ampicillin-sulbactam 3 g Intravenous Q6H digoxin 0.25 mg Intravenous Daily erythromycin Both Eyes 4 times per day fat emulsion 250 mL Intravenous Daily fluconazole (DIFLUCAN) IV 200 mg Intravenous Q24H furosemide 40 mg Intravenous BID heparin (porcine) 5000 unit/0.5mL 5,000 Units Subcutaneous Q8H insulin aspart 0-16 Units Subcutaneous 4 times per day levofloxacin 500 mg Intravenous Q24H lidocaine buffered 1% 0.5 mL Intradermal Once pantoprazole 40 mg Intravenous QAM AC Continuous Infusions dexmedetomidine in NS 0.5 mcg/kg/hr (01/21/15 1313) norepinephrine in D5W 64 mcg/mL Stopped (01/21/15 1800) TPN ADULT 75 mL/hr at 01/21/152054 PRN Medications acetaminophen, albuterol, dextrose, dextrose, HYDROmorphone OR HYDROmorphone, lip moist urizer, magnesium sulfate OR magnesium sulfate OR magnesium sulfate, nystatin, nysta tin, [DISCONTINUED] ondansetron OR ondansetron, petrolatum, polyethylene glycol, potassi um chloride OR potassium chloride OR potassium chloride, promethazine, sodium phosph ate IVPB 15 mmol OR sodium phosphate IVPB 30 mmol OBJECTIVE Vital Signs: BP 112/64 mmHg | Pulse 82 | Temp(Src) 97.7 F (36.5 C) (Axillary) | Resp 34 | Ht 1.626 m (5' 4") | Wt 73 kg (160 lb 15 oz) | BMI 27.61 kg/m2 | SpO2 98% Temp: [97.7 F (36.5 C)-100.3 F (37.9 C)] 97.7 F (36.5 C) (01/22 0400) BP: (86-119)/(50-64) 112/64 mmHg (01/22 050) Heart Rate: [72-95] 82 (01/22 050) Resp: [20-49] 34 (01/22 500) SpO2: [95 %-99 %] 98 % (01/22 500) Height: [162.6 cm (5' 4")] 162.6 cm (5' 4") (01/21 07) Weight: [73 kg (160 lb 15 oz)] 73 kg (160 lb 15 oz) (01/22 042) FiO2 : [25 %-30 %] 25 % (01/21 1600) Exam: Const: Vitals reviewed. No acute distress. Skin: No rashes, no edema Right chest Mediport site unremarkable. Right IJ triple-lumen catheter has been removed. ENT: there is no evidence of thrush. Lungs: clear to auscultation bilaterally. No pleural rub. Heart: RRR, no murmur Abd: soft, tender only in the epigastric region, + bowel sounds Musculoskeletal: No gross deformity or active arthritis DATA CBC: Lab Results Component Value Date WBC 12.23* 01/22/2015 RBC 2.60* 01/22/2015 HGB 8.3* 01/22/2015 HCT 25.4* 01/22/2015 MCV 97.8 01/22/2015 MCH 31.9 01/22/2015 MCHC 32.6 01/22/2015 RDW 46.4 01/22/2015 PLT 320 01/22/2015 MPV 8.6 01/22/2015 DIFFTYPE MANUAL 01/22/2015 WBC: Lab Results Component Value Date WBC 12.23* 01/22/2015 NEUTABSMAN 9.42* 01/22/2015 NEUTROABS 13.70* 01/21/2015 NEUTROMAN 77 01/22/2015 LYMPHOABS 0.73* 01/22/2015 LYMPHOMAN 6 01/22/2015 LYMPHSABS 0.35* 01/21/2015 LYMPHOPCT 2.26 01/21/2015 MONOABSMAN 1.10* 01/22/2015 MONOMAN 9 01/22/2015 MONOPCT 6.77 01/21/2015 EOSINOABS 0.12 01/22/2015 EOSINOMAN 1 01/22/2015 EOSABS 0.18 01/21/2015 EOSPCT 1.18 01/21/2015 BASOSABS 0.04 01/21/2015 BASOPCT 0.25 01/21/2015 PLTEST ADEQUATE 01/21/2015 BANDSPCT 7 01/22/2015 NRBC 1* 01/18/2015 METAABS 0.41* 01/18/2015 METAPCT 3 01/18/2015 MYELOABS 0.27* 01/18/2015 MYELOPCT 2 01/18/2015 COMDIFF SLIDE SCANNED, AGREES WITH AUTOMATED RESULTS. 01/21/2015 CMP: Lab Results Component Value Date NA 137 01/22/2015 K 4.2 01/22/2015 CL 104 01/22/2015 CO2 26 01/22/2015 ANIONGAP 11 01/22/2015 GLUF 123* 01/22/2015 BUN 27* 01/22/2015 CREATININE 0.57* 01/22/2015 BCR 47 01/22/2015 CA 7.8* 01/22/2015 PROT 5.7* 01/20/2015 ALB 1.2* 01/20/2015 GLOB 2.7 01/12/2015 BILITOT 3.0* 01/20/2015 ALP 88 01/20/2015 AST 28 01/20/2015 ALT 82* 01/20/2015 EGFR >60 01/22/2015 Microbiology: BAL culture shows Jazmin albicans, no bacterial growth. Medical imaging: This morning's chest x-ray was viewed in PACS and shows no significant haile nge compared to yesterday's study. No new findings. Radiology report as follows: IMPRESSION: 1. Small right apical pneumothorax measuring 6 mm from the chest wall. 2. Persistent right lung consolidation, unchanged from the prior exam. LEM LIST Principal Problem: Aspiration pneumonia (HCC) Active Problems: Rectal cancer (HCC) Persistent atrial fibrillation (HCC) Hyperlipidemia Abdominal pain Anemia Atrial fibrillation with RVR (HCC) Severe sepsis (HCC) Acute respiratory failure with hypoxia (HCC) Acute kidney injury (HCC) Acute pancreatitis ASSESSMENT & PLAN Septic shock, multifactorial Secondary to severe aspiration pneumonia, pancreatitis. CT scan yesterday showed significan t parapneumonic effusion. Appreciate chest tube placement. This morning's chest x-ray sugges ts adequate drainage. Leukocytosis persists despite broad-spectrum antibiotic coverage and c hest tube placement. BAL has only shown Jazmin albicans, which could be a colonizer. I am g oing to add antifungal coverage to see whether this will have an impact on his leukocytosis. Continue Unasyn plus levofloxacin - day #12/14 today. We will follow-up on pleural fluid cultures and adjust antibiotic regimen if indicated. Question of cholecystitis HIDA scan results noted. Bacteremia Gram-negative rods -now identified as Escherichia coli -noted only in the anaerobic bottle of one set from cultures on 01/11. Possible bacteremia from aspiration pneumonia sputum has also shown Escherichia coli. We will continue antibiotics for a total of 14 days following first negative blood culture (January 11). Rectal cancer Status post surgery on 01/03. Code Status: Full Code RAHUL VALLES DO 01/22/2015 aleem Shore MD - 01/21/2015 6:36 PM PDT Progress Notes by Saleem Shore MD at 01/21/151835 Author: Saleem Shore MD Service: General Surgery Author Type: Physician Filed: 01/21/151838 Date of Service: 01/21/151835 Status: Signed Statistical Reporting Analyst: Saleem Shore MD (Physician) [facility] Service: Colon & Rectal Surgery Progress Note Hospital Day: LOS: 18 days Post-Op Day: 17 Day Post-Op SUBJECTIVE Patient Summary: S/P Coloanal pull-through for low rectal cancer. Events Overnight: extubated this am, looking good, ostomy functional with gas and stoo l Scheduled Medications ampicillin-sulbactam 3 g Intravenous Q6H digoxin 0.25 mg Intravenous Daily fat emulsion 250 mL Intravenous Daily fluconazole (DIFLUCAN) IV 200 mg Intravenous Q24H furosemide 40 mg Intravenous BID heparin (porcine) 5000 unit/0.5mL 5,000 Units Subcutaneous Q8H insulin aspart 0-16 Units Subcutaneous 4 times per day levofloxacin 500 mg Intravenous Q24H lidocaine buffered 1% 0.5 mL Intradermal Once pantoprazole 40 mg Intravenous QAM AC Continuous Infusions dexmedetomidine in NS 0.5 mcg/kg/hr (01/21/15 1313) esmolol (in NaCl) 10 mg/mL Stopped (01/21/15 0924) fentaNYL in NS 5 mcg/mL 25 mcg/hr (01/20/15 1421) norepinephrine in D5W 64 mcg/mL Stopped (01/21/151799) TPN ADULT 75 mL/hr at 01/20/158 TPN ADULT PRN Medications acetaminophen, albuterol, dextrose, dextrose, HYDROmorphone OR HYDROmorphone, lip moist urizer, magnesium sulfate OR magnesium sulfate OR magnesium sulfate, nystatin, nysta tin, [DISCONTINUED] ondansetron OR ondansetron, petrolatum, polyethylene glycol, potassi um chloride OR potassium chloride OR potassium chloride, promethazine, sodium phosph ate IVPB 15 mmol OR sodium phosphate IVPB 30 mmol OBJECTIVE Vital Signs: BP 116/57 mmHg | Pulse 78 | Temp(Src) 99 F (37.2 C) (Axillary) | Resp 27 | Ht 1.626 m ( 5' 4") | Wt 78 kg (171 lb 15.3 oz) | BMI 29.50 kg/m2 | SpO2 99% Temp: [98.6 F (37 C)-99.4 F (37.4 C)] 99 F (37.2 C) (01/22 1600) BP: (86-119)/(52-64) 116/57 mmHg (01/21 1800) Heart Rate: [72-143] 78 (01/21 1800) Resp: [20-47] 27 (01/21 1800) SpO2: [96 %-100 %] 99 % (01/21 1800) Height: [162.6 cm (5' 4")] 162.6 cm (5' 4") (01/21 709) Weight: [78 kg (171 lb 15.3 oz)] 78 kg (171 lb 15.3 oz) (01/22 420) FiO2 : [25 %-30 %] 25 % (01/22 1600) Physical Exam Constitutional: He appears well-developed and well-nourished. No distress. HENT: Head: Atraumatic. Eyes: Pupils are equal, round, and reactive to light. Neck: Neck supple. Abdominal: Soft. He exhibits no distension. There is no tenderness. Genitourinary: Neurological: He is alert. Follows command Skin: Skin is warm. He is not diaphoretic. Vitals reviewed. DATA CBC: Lab Results Component Value Date WBC 15.31* 01/21/2015 RBC 2.54* 01/21/2015 HGB 8.3* 01/21/2015 HCT 24.5* 01/21/2015 MCV 96.5 01/21/2015 MCH 32.6 01/21/2015 MCHC 33.8 01/21/2015 RDW 44.2 01/21/2015 PLT 254 01/21/2015 MPV 9.4 01/21/2015 DIFFTYPE AUTOMATED 01/21/2015 BMP: Lab Results Component Value Date NA 136 01/21/2015 K 4.3 01/21/2015 CL 106 01/21/2015 CO2 23 01/21/2015 ANIONGAP 11 01/21/2015 GLUF 140* 01/21/2015 BUN 27* 01/21/2015 CREATININE 0.65* 01/21/2015 BCR 42 01/21/2015 CA 7.4* 01/21/2015 EGFR >60 01/21/2015 Magnesium: Lab Results Component Value Date MG 2.3 01/21/2015 Phosphorus: Lab Results Component Value Date PHOS 3.5 01/21/2015 PROBLEM LIST Principal Problem: Aspiration pneumonia (HCC) Active Problems: Rectal cancer (HCC) Persistent atrial fibrillation (HCC) Hyperlipidemia Abdominal pain Anemia Atrial fibrillation with RVR (HCC) Severe sepsis (HCC) Acute respiratory failure with hypoxia (HCC) Acute kidney injury (HCC) Acute pancreatitis ASSESSMENT & PLAN S/P Coloanal pull-through for low rectal cancer POD#17. Developed likely aspiration pneumo faye and sepsis. Afib now back in sinus again. He started declaring pancreatitis and liver dysfunction (likely due to hypotension). HIDA scan reviewed. Suggestive of hepatocellular disease. ileostomy is functional but slowed down form the pancreatitis. - ok to start enteral feeds. Disposition: Code Status: Full Code Saleem Shore MD 01/21/2015 onversion Transac tion, Provider Unknown - 01/21/2015 10:52 AM PDTFormatting of this note might be different f rom the original. Progress Notes by Choco Hernandez RPH at 01/21/151051 Author: Choco Hernandez RPH Service: Pharmacy Author Type: Pharmacist Filed: 01/21/15 1053 Date of Service: 01/21/151051 Status: Signed Statistical Reporting Analyst: Choco Hernandez RPH (Pharmacist) TPN day 10, lytes WNL. Blood sugars 140's to 160's- will increase insulin in TPN to 55 uni ts/24hr bag. No other changes. onver alex Transaction, Provider Unknown - 01/21/2015 7:52 AM PDT Progress Notes by JESSICA Colin at 01/21/15751 Author: JESSICA Colin Service: Speech And Hearing Clinic Director Author Type: Medical Student Filed: 01/21/151701 Date of Service: 01/21/15751 Status: Attested Statistical Reporting Analyst: JESSICA Colin (Medical Student) Cosigner: Stalin Finney MD at 01/21/151849 Attestation signed by Stalin Finney MD at 01/21/151849 I examined the patient and discussed the plan with Rubia Schneider. I agree with the abhishek caruso note and plan. In addition, we were able to wean him off vasopressors and esmolol. He was tolerating pressure support ventilation at / hence he was extubated to BIPAP and so far her is tolerating this. Thank you for this consult! Stalin Finney MD Pulmonary and Critical Care Medicine [facility] 01/21/15 6:48PM *Please bill 40 minutes of critical care time spent evaluating the patient, reviewing the d jose guadalupe and formulating a plan exclusive of all other procedures. [facility] Service: Speech And Hearing Clinic Director Progress Note Jose Uma 64 y.o. Hospital Day: LOS: 18 days Post-Op Day: 4 Days Post-Op Consulting Physicians Treatment Team: Consulting Physician: Amy Simons MD Consulting Physician: Mario Crawford MD Admitting Provider: Saleem Shore MD SUBJECTIVE Patient Summary: Pt is a 64 y/o Burkinan speaking M with past medical history significant for hyperlipidemia, rectal cancer, on chemotherapy with 5-FU . 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 . While on the floor the pt had some episodes of n/v, tachycardia, temp spikes, episodes of afib, was diagnosed with SBO. Pt complained of th irst and was found drinking water out of the sink despite being educated regarding his NPO s tatus, it is thought that he aspirated. 01/11/15 a RAT was called as the pt was hypotensive & tachycardic, he was given 5L crystall oids and his BP improved but he became tachypneic. Stat blood gas showed metabolic acidosis and lactic acidosis. Pt showed signs of respiratory fatigue with increasing O2 requirement a nd was subsequently intubated, given 2 pushes of bicarb. Post-intubation CXR revealed R-side d pneumonia, he was started on IV Zosyn plus vancomyin. ICU Timeline: 01/12: Pt transferred to ICU. RIJ, arterial line placed. 01/13: Hypotensive requiring pressor. Developed Afib with RVR. Started on digoxin. 01/15: Off pressors. Failed SBT. 01/16: Extubated, on 2L O2. Started on Precedex. Acute pancreatitis. 01/18: Reintubated and bronch w LLL mucus plug 01/19: Remained intubated. 01/20: R chest tube placed for pleural effusion. D/t amount of secretions remained intub ated Events Overnight: Afib recurred. Given 0.5 digoxin, started on esmolol for rate control, started on levoph ed for hypotension. SCHEDULED MEDICATIONS ampicillin-sulbactam 3 g Intravenous Q6H digoxin 0.25 mg Intravenous Daily fat emulsion 250 mL Intravenous Daily fluconazole (DIFLUCAN) IV 200 mg Intravenous Q24H furosemide 40 mg Intravenous BID heparin (porcine) 5000 unit/0.5mL 5,000 Units Subcutaneous Q8H insulin aspart 0-16 Units Subcutaneous 4 times per day levofloxacin 500 mg Intravenous Q24H lidocaine buffered 1% 0.5 mL Intradermal Once pantoprazole 40 mg Intravenous QAM AC CONTINUOUS INFUSIONS dexmedetomidine in NS 0.5 mcg/kg/hr (01/20/15 2030) esmolol (in NaCl) 10 mg/mL 25 mcg/kg/min (01/21/15 0109) fentaNYL in NS 5 mcg/mL 25 mcg/hr (01/20/15 1421) norepinephrine in D5W 64 mcg/mL 4 mcg/min (01/21/15 0430) TPN ADULT 75 mL/hr at 01/20/15 2128 OBJECTIVE VITAL SIGNS Temp: [98.3 F (36.8 C)-99.4 F (37.4 C)] 99.4 F (37.4 C) Heart Rate: [65-143] 93 Resp: [18-52] 20 BP: (81-113)/(49-64) 111/62 mmHg FiO2 : [0 %-30 %] 30 % Intake/Output Summary (Last 24 hours) at 01/21/15 0752 Last data filed at 01/21/15 0619 Gross per 24 hour Intake 4529.65 ml Output 4020 ml Net 509.65 ml EXAM GEN: awake, alert, intubated, NAD NEURO: PERRLA, opens eyes spontaneously, nods yes to questions, no facial asymmetry, moves all 4 extremities HEENT: sclerae clear, nonicteric, oral mmm, pink, no exudates NECK: supple, trachea midline HEART: RRR, tachycardic, no murmur, rub or gallop LUNGS: decreased b/l, no wheezing or rhonchi, symmetric chest expansion, chest tube in plac e in back. ABD: soft, nondistended, diffusely tender to palpation, voluntary guarding, colostomy bag c ontains dark green output, BS hypoactive EXTR: trace pedal edema, clubbing or cyanosis SKIN: warm, dry, edema most pronounced in scrotal region, skin surrounding abdominal wounds is c/d/i and non erythematous, pressure ulcer present on R lower lip and foreskin of penis LINES/TUBES: R chest Port A cath (09/06/14), L forearm PIV (01/20), L wrist PIV (01/20) DATA Recent Labs Lab 01/21/15 0419 01/20/15 0427 01/19/15 0535 01/17/15 0302 01/16/15 1350 WBC 15.31* 11.70* 11.53* < > 10.87 10.81 RBC 2.54* 2.50* 2.48* < > 2.78* 2.90* HGB 8.3* 8.3* 8.4* < > 9.2* 9.8* HCT 24.5* 24.1* 24.0* < > 27.1* 28.3* MCV 96.5 96.5 96.8 < > 97.5 97.7 MCH 32.6 33.3 33.6 < > 33.1 33.6 MCHC 33.8 34.5 34.8 < > 33.9 34.4 RDW 44.2 42.9 44.6 < > 42.9 44.2 PLT 254 185 144* < > 110* 127* MPV 9.4 9.7 9.9 < > 10.6 9.7 BANDSABS -- -- 0.23* -- 0.33* 0.22* NEUTROABS 13.70* 10.54* -- -- -- -- LYMPHSABS 0.35* 0.31* -- -- -- -- MONOSABS 1.04* 0.57 -- -- -- -- BASOSABS 0.04 0.03 -- -- -- -- EOSABS 0.18 0.25 -- -- -- -- MORPH RBC AND PLT MORPHOLOGY APPEAR NORMAL RBC AND PLT MORPHOLOGY APPEAR NORMAL RBC AND PLT MORPHOLOGY APPEAR NORMAL < > NORMAL RBC MORPH RBC AND PLT MORPHOLOGY APPEAR NORMAL < > = values in this interval not displayed. Recent Labs Lab 01/21/15 0419 01/20/15 1725 01/20/15 0427 01/19/15 0535 01/18/15 0509 NA 136 -- 136 137 140 K 4.3 4.1 4.1 4.2 4.4 CL 106 -- 106 106 108 CO2 23 -- 22* 26 27 ANIONGAP 11 -- 12 10 10 GLUF 140* -- 119* 128* 129* BUN 27* -- 27* 23 25 CREATININE 0.65* -- 0.70 0.67* 0.61* BCR 42 -- 38 35 41 CA 7.4* -- 7.1* 7.2* 7.4* ALB -- -- 1.2* 1.1* 1.2* PROT -- -- 5.7* 5.2* 5.2* BILITOT -- -- 3.0* 3.0* 3.0* ALT -- -- 82* 113* 197* AST -- -- 28 26 55* EGFR >60 -- >60 >60 >60 PHOS 3.5 4.2 3.7 4.0 3.6 MG 2.3 2.2 2.2 2.2 2.6* No results for input(s): INR in the last 168 hours. Potassium: Lab Results Component Value Date K 4.3 01/21/2015 Ionized Calcium: Lab Results Component Value Date THEO 1.08 01/21/2015 PH 7.429 01/21/2015 LDH: Lab Results Component Value Date LDH 167 01/20/2015 Triglycerides: 01/21/15 Triglycerides 249 (H) mg/dL IMAGING X-ray Chest 1 View 01/21/2015 1. Tubes and lines are in expected position. 2. Unchanged consolidation/airsp isaac disease of the right lung base consistent with infection or aspiration. 3. No pneumothor ax. Ct Chest Without Contrast 01/19/2015 1. Worsening dense infiltrative changes throughout most of the right lung, wi th increasing small to moderate right pleural effusion and persistent minimal left effusion. 2. Minimal left basilar atelectasis or infiltrate, subtly increased. 3. No adenopathy. 4. Stable tubes and lines. Nm Hepatobiliary With Cck 01/17/2015 1. Significant cholestasis with persistent hepatic uptake seen 4 hours post i njection. 2. Gallbladder not initially seen at 60 minutes but does fill 4 hours post Cholet ec injection suggesting that the cystic duct is patent. Ultrasound Abdomen Limited 01/16/2015 1. Contracted gallbladder with the gallbladder wall thickening, sludge, and p ositive sonographic Brar sign. Acute cholecystitis is not excluded. 2. Small 4 mm polyp w ithin the gallbladder. LEM LIST Principal Problem: Aspiration pneumonia (HCC) Active Problems: Rectal cancer (HCC) Persistent atrial fibrillation (HCC) Hyperlipidemia Abdominal pain Anemia Atrial fibrillation with RVR (HCC) Severe sepsis (HCC) Acute respiratory failure with hypoxia (HCC) Acute kidney injury (HCC) Acute pancreatitis ASSESSMENT & PLAN NEURO: Mental status: Awake but CAM positive, currently on 0.5 Precedex. Pain control: On 25 of Fentanyl. CV: Afib: Recurred overnight (01/21), converted back to sinus rhythm. Stop esmolol and wean off levophed. Acute dilated cardiomyopathy, decreased LV systolic function CAD: Dr. Crawford consulted, following, will address once pt is more stable prior to dischar ge. Hypotension: on levophed, now in sinus rhythm and esmolol stopped. Begin weaning off lev ophed. Hyperlipidemia: Triglycerides elevated at 249 (01/21), have been elevated previous two d ays as well. At home pt is on 40 mg Pravastatin but with elevated LFT's and hepatic enzymes this is currently not being prescribed. PULM: RLL aspiration pneumonia: On Unasyn plus levofloxacin day 02/08. Started on fluconazole for antifungal coverage per ID. R sided pleural effusion: Chest tube in place, draining. Pleural fluid cultures pending following chest tube placement. Likely parapneumonic effusion, fluid pH 7.78. Fluid total pr otein and glucose pending. Acute respiratory failure with hypoxia: Pt reintubated on 01/18 and s/p bronch which fou nd LLL mucus plug. CXR 01/21 shows "Unchanged consolidation/airspace disease of the right emiliano ng base". Secretions continue to be moderate in amount with productive cough. On pressure bojorquez pport, continue weaning down on vent and SBT with goal to extubate. If fails this extubation will need to consider trach. GI/NUTRITION: Nutrition: Currently on TPN. Discuss starting PEG tube feeds with surgical. Acute pancreatitis: Resolving. Pain controlled on fentanyl, lipase now WNL. Elevated AST, ALT, direct & total bili: Decreasing. Hepatobiliary dysfunction likely sec ondary to hypotension, HIDA scan was suggestive of hepatocellular disease Rectal cancer: S/p coloanal pull-through for low rectal cancer RENAL/LYTES: NICOL: Resolved 01/12 Electrolytes: hypocalcemia in setting of acute pancreatitis, continue monitoring calcium . ID: Aspiration pneumonia: Unasyn plus levofloxacin, pt started on fluconazole for antifungal coverage per ID in the setting of persistent leukocytosis and BAL culture of Jazmin albica ns. E. coli bacteremia, sepsis: On Unasyn plus levofloxacin. Serial blood draws negative. ID following. HEME: Anemia: appears stable, etiology likely dilutional. No evidence of active bleeding, cont inue monitoring ENDO: BG: On SSI, goal of BG below 180 MUSC/SKIN: Pressure ulcer: present on R lower lip and foreskin of penis, wound care consulted and f ollowing. Colostomy, surgical wounds: Healing well, continue with wound care. PT/OT/Speech: Dangle again today, other services on hold d/t pt remaining intubated. PROPHYLAXIS: Stress ulcer prophylaxis: Protonix DVT prophylaxis: Heparin, SCD's VAP bundle: chlorhexadine oral care, HOB >30 degrees. Disposition: ICU care as above. Wean off levophed, continue Lasix, dangle again today, wea n off vent to SBT with goal of extubating, social work spoke with family and is working towa rds LTAC placement. Discuss starting PEG tube feeds with surgical. Code Status: Full Code Rubia Jass, MS-4 01/21/2015 Rahul Larios DO - 01/21/2015 7:03 AM PDTFormatting of this note might be different from the randolph adebayo. Progress Notes by Rahul Valles DO at 01/21/15702 Author: Rahul Valles DO Service: (none) Author Type: Physician Filed: 01/21/15713 Date of Service: 01/21/15702 Status: Signed Statistical Reporting Analyst: Rahul Valles DO (Physician) [facility] Service: Infectious Disease Progress Note Hospital Day: LOS: 18 days Post-Op Day: 10 Days Post-Op SUBJECTIVE Patient Summary: 64-year-old with rectal cancer, status post chemoradiation, status post robotic resection, ileostomy on 01/03. Had an episode of vomiting on 01/11, and also dillan gnosed with partial SBO. It appears that patient was noncompliant with nothing by mouth stat us and may have aspirated. He was brought to the ICU with respiratory failure intubated and ventilated. Started on IV Zosyn plus vancomycin plus metronidazole. On press source. 01/15 Patient remains intubated and ventilated. Remains on low-dose dobutamine and pressor s. Failed spontaneous breathing trial. TPN: Day #5 Low-grade temperature 100.5 Fahrenheit noted this morning. White count remains normal. 01/17 - intubated in the evening for hypoxemic respiratory failure. CC: Abdominal pain, pneumonia Chart reviewed: Intubated last evening. Subjective The patient is on a sedation holiday. He opens eyes to voice and attends. He denies pain i n his abdomen at rest. He denied shortness of breath. ROS Limited as above, intubated. Scheduled Medications ampicillin-sulbactam 3 g Intravenous Q6H digoxin 0.25 mg Intravenous Daily fat emulsion 250 mL Intravenous Daily furosemide 40 mg Intravenous BID heparin (porcine) 5000 unit/0.5mL 5,000 Units Subcutaneous Q8H insulin aspart 0-16 Units Subcutaneous 4 times per day levofloxacin 500 mg Intravenous Q24H lidocaine buffered 1% 0.5 mL Intradermal Once pantoprazole 40 mg Intravenous QAM AC Continuous Infusions dexmedetomidine in NS 0.5 mcg/kg/hr (01/20/15 2030) esmolol (in NaCl) 10 mg/mL 25 mcg/kg/min (01/21/15 0109) fentaNYL in NS 5 mcg/mL 25 mcg/hr (01/20/15 1421) norepinephrine in D5W 64 mcg/mL 4 mcg/min (01/21/15 0430) TPN ADULT 75 mL/hr at 01/20/158 PRN Medications acetaminophen, albuterol, dextrose, dextrose, HYDROmorphone OR HYDROmorphone, lip moist urizer, magnesium sulfate OR magnesium sulfate OR magnesium sulfate, nystatin, nysta tin, [DISCONTINUED] ondansetron OR ondansetron, petrolatum, polyethylene glycol, potassi um chloride OR potassium chloride OR potassium chloride, promethazine, sodium phosph ate IVPB 15 mmol OR sodium phosphate IVPB 30 mmol OBJECTIVE Vital Signs: BP 111/62 mmHg | Pulse 93 | Temp(Src) 99.4 F (37.4 C) (Oral) | Resp 20 | Ht 1.626 m (5' 4") | Wt 78 kg (171 lb 15.3 oz) | BMI 29.50 kg/m2 | SpO2 100% Temp: [98.3 F (36.8 C)-99.4 F (37.4 C)] 99.4 F (37.4 C) (01/21 040) BP: (81-113)/(49-64) 111/62 mmHg (01/21 600) Heart Rate: [65-143] 93 (01/21 600) Resp: [18-52] 20 (01/21 600) SpO2: [92 %-100 %] 100 % (01/21 600) Weight: [78 kg (171 lb 15.3 oz)] 78 kg (171 lb 15.3 oz) (01/21 042) FiO2 : [0 %-30 %] 30 % (01/21 0304) Exam: Const: Vitals reviewed. Intubated. Skin: No rashes, no edema Right chest Mediport site unremarkable. Right IJ triple-lumen catheter has been removed. ENT: Endotracheal tube is in place. Lungs: mechanical breath sounds bilaterally. No pleural rub. Chest tube in place on the rig ht. Heart: RRR, no murmur Abd: soft, tender only in the epigastric region, + bowel sounds Musculoskeletal: No gross deformity or active arthritis DATA CBC: Lab Results Component Value Date WBC 15.31* 01/21/2015 RBC 2.54* 01/21/2015 HGB 8.3* 01/21/2015 HCT 24.5* 01/21/2015 MCV 96.5 01/21/2015 MCH 32.6 01/21/2015 MCHC 33.8 01/21/2015 RDW 44.2 01/21/2015 PLT 254 01/21/2015 MPV 9.4 01/21/2015 DIFFTYPE AUTOMATED 01/21/2015 WBC: Lab Results Component Value Date WBC 15.31* 01/21/2015 NEUTABSMAN 9.80* 01/19/2015 NEUTROABS 13.70* 01/21/2015 NEUTROMAN 85 01/19/2015 LYMPHOABS 0.69* 01/19/2015 LYMPHOMAN 6 01/19/2015 LYMPHSABS 0.35* 01/21/2015 LYMPHOPCT 2.26 01/21/2015 MONOABSMAN 0.69 01/19/2015 MONOMAN 6 01/19/2015 MONOPCT 6.77 01/21/2015 EOSINOABS 0.12 01/19/2015 EOSINOMAN 1 01/19/2015 EOSABS 0.18 01/21/2015 EOSPCT 1.18 01/21/2015 BASOSABS 0.04 01/21/2015 BASOPCT 0.25 01/21/2015 PLTEST ADEQUATE 01/21/2015 BANDSPCT 2 01/19/2015 NRBC 1* 01/18/2015 METAABS 0.41* 01/18/2015 METAPCT 3 01/18/2015 MYELOABS 0.27* 01/18/2015 MYELOPCT 2 01/18/2015 COMDIFF SLIDE SCANNED, AGREES WITH AUTOMATED RESULTS. 01/21/2015 CMP: Lab Results Component Value Date NA 136 01/21/2015 K 4.3 01/21/2015 CL 106 01/21/2015 CO2 23 01/21/2015 ANIONGAP 11 01/21/2015 GLUF 140* 01/21/2015 BUN 27* 01/21/2015 CREATININE 0.65* 01/21/2015 BCR 42 01/21/2015 CA 7.4* 01/21/2015 PROT 5.7* 01/20/2015 ALB 1.2* 01/20/2015 GLOB 2.7 01/12/2015 BILITOT 3.0* 01/20/2015 ALP 88 01/20/2015 AST 28 01/20/2015 ALT 82* 01/20/2015 EGFR >60 01/21/2015 Microbiology: BAL culture shows Jazmin albicans, no bacterial growth. Medical imaging: This morning's chest x-ray was viewed in PACS and shows no significant haile nge compared to yesterday's study but significant improvement overall compared to previous s tudies from 48-72 hours ago. Improving aeration in right lung. Radiology report as follows: IMPRESSION: 1. Tubes and lines are in expected position. 2. Unchanged consolidation/airspace disease of the right lung base consistent with infectio n or aspiration. 3. No pneumothorax. LEM LIST Principal Problem: Aspiration pneumonia (HCC) Active Problems: Rectal cancer (HCC) Persistent atrial fibrillation (HCC) Hyperlipidemia Abdominal pain Anemia Atrial fibrillation with RVR (HCC) Severe sepsis (HCC) Acute respiratory failure with hypoxia (HCC) Acute kidney injury (HCC) Acute pancreatitis ASSESSMENT & PLAN Septic shock, multifactorial Secondary to severe aspiration pneumonia, pancreatitis. CT scan yesterday showed significan t parapneumonic effusion. Appreciate chest tube placement. This morning's chest x-ray sugges ts adequate drainage. Leukocytosis persists despite broad-spectrum antibiotic coverage and c hest tube placement. BAL has only shown Jazmin albicans, which could be a colonizer. I am g oing to add antifungal coverage to see whether this will have an impact on his leukocytosis. Continue Unasyn plus levofloxacin - day #11 today. We will follow-up on pleural fluid cultures and adjust antibiotic regimen if indicated. Question of cholecystitis HIDA scan results noted. Bacteremia Gram-negative rods -now identified as Escherichia coli -noted only in the anaerobic bottle of one set from cultures on 01/11. Possible bacteremia from aspiration pneumonia sputum has also shown Escherichia coli. We will continue antibiotics for a total of 14 days following first negative blood culture (January 11). Rectal cancer Status post surgery on 01/03. Code Status: Full Code RAHUL VALLES DO 01/21/2015 Abilio Ramirez ARN P - 01/20/2015 5:59 PM PDT Nurse Progress Note by Abilio Alba RN at 01/20/15 0459 Author: Abilio Alba RN Service: (none) Author Type: Registered Nurse Filed: 01/20/15 948 Date of Service: 01/20/151758 Status: Signed Statistical Reporting Analyst: Abilio Alba RN (Registered Nurse) Sedation holiday begun at 1421. Dex off, Fentanyl decreased. Patient has been more alert but still sleepy and lethargic and disoriented. Pt. Still with thick secretions cleared wit h suction via ETT. Vital signs stable. Abilio Ramirez ARNP - 01/20/2015 4:42 PM PDTFormatting of this note might be different from the originabhishek pardo. Nurse Progress Note by Abilio Alba RN at 01/20/151641 Author: Abilio Alba RN Service: (none) Author Type: Registered Nurse Filed: 01/20/151644 Date of Service: 01/20/151641 Status: Signed Statistical Reporting Analyst: Abilio Alba RN (Registered Nurse) Mediport would not return blood, pt. Manipulation attempted with no success. Needle change d, still no blood return. Alteplase into mediport at 1424 for lack of blood return. After 3 0 minutes, aspiration attempt was met with still, no blood return. Alteplase left to dwell for a total of 120 minutes, at ~1630, aspiration gave blood return from mediport. Blood jorge wn for labs, mediport flushed with 10ml NS, cap changed, infusion of TPN restarted. onversion Trans action, Provider Unknown - 01/20/2015 3:39 PM PDT Case Management by BRIA Lima at 01/20/151538 Author: BRIA Lima Service: (none) Author Type: Tube Bender Hand Filed: 01/20/15 154 Date of Service: 01/20/151538 Status: Signed Statistical Reporting Analyst: BRIA Lima (Tube Bender Hand) Met with pt's brother and some friends via pension fund manager. Discussed possibility of pt needin g and LTAC and the benefits of going to one. Also discussed SNF if LTAC is not needed. Bro ther and friend indicate that they want what is best for pt. LTAC options were discussed and they indicated that they are agreeable to [facility] in [place]. Brother asked if jayeluigi dixon make a referral to [facility] as opposed to [facility] as pt has reportedly b een there in the past. I will e-fax a referral to [facility]. Informed family that we will hope fully know by the end of the week which direction pt will need for rehab. They understand t hat pt is falling into the chronic phase of his illness and therefore may do best at an LTAC . CM to follow. onver alex Transaction, Provider Unknown - 01/20/2015 2:22 PM PDT Therapy Progress Note by Kelli Belle PT at 01/20/151421 Author: Kelli Belle PT Service: (none) Author Type: Physical Therapist Filed: 01/20/15 1688 Date of Service: 01/20/151421 Status: Signed Statistical Reporting Analyst: Kelli Belle PT (Physical Therapist) 01/20/151421 PT Last Visit PT Received On 01/20/15 Reason for Treatment Deconditioning Requires PT Follow Up Awaiting tx order Follow up PT Only? Yes PT Eval/Reassessment Date 01/20/15 Assistance Required 2 person Home Environment Type of Home Home one story Additional Comments Family provided home information. Prior Function Level of [place] Independent with functional mobility;Independent with ADLs (pt does not drive) Lives With Alone Employment Retired for age RLE Assessment RLE Assessment X RLE Strength R Hip Flexion 2+/5 R Knee Flexion 3/5 R Knee Extension 3/5 R Ankle Dorsiflexion 3-/5 R Ankle Plantar Flexion 3-/5 LLE Assessment LLE Assessment X Strength LLE L Hip Flexion 2+/5 L Knee Flexion 3/5 L Knee Extension 3+/5 L Ankle Dorsiflexion 3-/5 L Ankle Plantar Flexion 3-/5 Cognition Overall Cognitive Status BRIANNE Orientation Level BRIANNE Sensation Light Touch (BRIANNE) Perception Inattention/Neglect Instruction to attend right visual field Initiation Delayed initiation of task;Instruction to initiate tasks Assessment of Patient Status Assessment of Patient Status Decreased UE strength;Decreased LE strength;Decreased functio nal mobility;Decreased ADL status;Decreased endurance;Precautions;Pain;Decreased insight int o deficits Prognosis Should progress with skilled therapy intervention;Limited by multiple medical [employer] Safety Devices Safety Devices in Place (RN at bedside) Precautions Other Precautions vent; high fall risk Plan Treatment/Interventions Balance training;Assist d/c plannning;Continue with skilled PT serv ices;Therapeutic exercise;Transfer training;Bed mobility training PT Frequency 5-7x/wk;Once per day Care Duration (# of days) 7 # of days Recommendation Recommendations Defer (pending weaning from vent; likely SNF vs. LTAC) 01/20/151421 PT Last Visit PT Received On 01/20/15 Reason for Treatment Deconditioning Requires PT Follow Up Awaiting tx order Follow up PT Only? Yes PT Eval/Reassessment Date 01/20/15 Assistance Required 2 person Precautions Other Precautions vent; high fall risk Other Comments Comments Chart reviewed, eval completed. Pt is s/p Coloanal pull-through for low rectal can cer POD#16. Developed likely aspiration pneumonia and sepsis and is now intubated with acut e pancreatitis. Therapy timed during sedation holiday. Pt opens eyes and follows basic motor commands with repeated cues. Does not consitently use yes/no nodding accurately. Appears to be moving LEs more readily than UEs although pt does elevated UEs briefly from bed with wha t appears to be great effort (about 30 deg). PEEP 7, FiO2 30%, RR 33 bpm, BP 105/56, HR 66 b pm, SpO2 98%. Upon sitting EOB, pt exhibiting very strong L lean and holds his head towards this direction (which is the side the vent is directed from). Posture is slumped and head is flexed forward with chin nearly against chest. Pt cued to sit more upright but is frequentl y disturbed by coughing. RN performed pulmonary percussion and pt continued to cough and was suctioned. In sitting, rarely kept his eyes open. Coughing was frequent but pt tolerated ab out 15 minutes of sitting total. Pt positioned back in supine. Post activity: BP 82/49, HR 7 5 bpm, SpO2 92%. RN aware of hypotension. Cognition Overall Cognitive Status BRIANNE Orientation Level BRIANNE Bed Mobility Supine to Sit Dependent;x 2 person;Max assist (BLEs OOB & trunk to upright) (3rd person present for lines) Sit to Supine Dependent;Max assist (BLEs into bed & trunk to lower);x 2 person (3rd person present for lines) Transfers Sit to/from Stand Safety concerns;BRIANNE Bed to/from Chair BRIANNE;Safety concerns Balance Balance Yes Static Sitting Balance Static Sitting-Balance Support Feet unsupported;Right upper extremity support Static Sitting-Level of Assistance Maximal assist;Leans L;Doesn't maintain midline;Doesn't attain midline Static Sitting-Comment/Duration x 15 minutes EOB; strong L lean Modalities Modalities Other therapy Other Therapy Ed pt's family on purpose of P.T. and role in pt's recovery, bed exercises to perform when pt is not sedated, and likely progression of mobility. Activity Tolerance Activity Tolerance Patient limited by fatigue;Treatment limited secondary to medical compli cations (limited by frequent coughing) Nurse Made Aware RN Yeimy/Abilio Safety Devices Safety Devices in Place (RN at bedside) Plan Treatment/Interventions Balance training;Assist d/c plannning;Continue with skilled PT serv ices;Therapeutic exercise;Transfer training;Bed mobility training PT Frequency 5-7x/wk;Once per day Care Duration (# of days) 7 # of days Recommendation Recommendations Defer (pending weaning from vent; likely SNF vs. LTAC) onver alex Transaction, Provider Unknown - 01/20/2015 1:41 PM PDT Progress Notes by Anna Suresh RD, CD at 01/20/15 1341 Author: Anna Suresh RD, CD Service: (none) Author Type: Registered Dietitian Filed: 01/20/15 1341 Date of Service: 01/20/15 134 Status: Signed Statistical Reporting Analyst: Anna Suresh RD, CD (Registered Dietitian) 01/20/15 1312 Subjective Timepoint Follow up (high-risk) Pt c/o Pt was reintubated on 01/17 due to hypoxemic respiratory failure. POD #17 s/p coloan al pullthrough. Pt is lethargic but arousable per RN. Continues on bowel rest. Per surgeon, ileostomy is functional but slowed down due to pancreatitis. Fluid / Beverage Intake Oral Fluids Amount NPO Food Intake Amount of Food NPO Parenteral Nutrition Intake Access PICC Rate/Solution TPN (D18%, AA 6%) at 75 mL/hr plus lipids 20% 250 mL daily. On Precedex and r emains off propofol. Calories per day 2031 (28 kcal/kg ) Non Protein calories per day 1602 Grams of Protein per day 108 (1.5 g protein/kg) Total Volume per day 0 mL Nutrition-Focused Physical Findings Extremities, Muscles and Bones Pt noted to have 1+ edema in the extremities. Digestive System (Mouth to Rectum) Per RN, ileostomy had only about 50 mL output overnight. Skin Skin remains intact - hot wound spring production supervisor to re-eval. Anthropometrics Weight change No new wt available to assess over the past 3 days. Suggest reweighing pt. Biochemical data, medical tests, and procedures reviewed Biochemical data, medical tests, and procedures reviewed BG has been variable in the 100s, insulin being adjusted in TPN bag. BUN 27 (H), Cr 0.7 (WNL). TG 193 - remains elevated but t rending down. Recommendations Recommended parenteral nutritional needs for pharmacy Recommend increasing dextrose concent ration to 22% to better meet pt's estimated kcal/protein requirements for healing and recove ry. TPN (D22%, AA 6%) at 75 mL/hr plus lipids 20% 250 mL daily provides 2278 kcal, 108 g pro tein, 1846 NPC, and 2050 mL total volume which supplies 31 kcal/kg and 1.5 g protein/kg base d on admit wt. Recommended energy needs Restart trickle feeds once indicated. Nutritional Risk Nutritional risk High Follow up date 01/23/15 Anna Suresh, RD, CD, CNSC 01/20/2015 onver alex Transaction, Provider Unknown - 01/20/2015 10:56 AM PDT Progress Notes by Choco Hernandez RPH at 01/20/15 1056 Author: Choco Hernandez RPH Service: Pharmacy Author Type: Pharmacist Filed: 01/20/15 1056 Date of Service: 01/20/151055 Status: Signed Statistical Reporting Analyst: Choco Hernandez RPH (Pharmacist) TPN day 9, Bicard 22- will increase acetate in TPN. Other Lytes WNL. Blood sugars in 110's to 140's. Per bakeshop cleaner recs will increase Dextrose from 18% to 22%. Will increase insulin from 30 units to 45 units/24hr bag. No other changes. Shara Benavidez MS CCC-MAILROOM SUPERVISOR - 01/20/2015 10:05 AM PDTFormatting of this note might be different f rom the original. Therapy Progress Note by Shara Davila MS CCC-MAILROOM SUPERVISOR at 01/20/15 1005 Author: Shara Davila MS CCC-MAILROOM SUPERVISOR Service: (none) Author Type: Speech and Language Pa thologist Filed: 01/20/15 1013 Date of Service: 01/20/15 1005 Status: Signed Statistical Reporting Analyst: Shara Davila MS CCC-MAILROOM SUPERVISOR (Speech and Language Pathologist) 01/20/15 1005 MAILROOM SUPERVISOR Last Visit MAILROOM SUPERVISOR Received On 01/20/15 Requires MAILROOM SUPERVISOR Follow Up Unavailable (Intubated- plan for extubation in the afternoon.) onversio n Transaction, Provider Unknown - 01/20/2015 9:19 AM PDTFormatting of this note might be di fferent from the original. Case Management by BRIA Lima at 01/20/15918 Author: BRIA Lima Service: (none) Author Type: Tube Bender Hand Filed: 01/20/15929 Date of Service: 01/20/15918 Status: Addendum Statistical Reporting Analyst: BRIA Lima (Tube Bender Hand) Related Notes: Original Note by BRIA Lima (Tube Bender Hand) filed at 01/20/15923 Attended morning rounds. Pt was re-intubated last Tuesday. Goal is to try to extubate pt to day. I asked about LTAC transfer and MD would like me to proceed with those plans and discus s with family. Referral made to [facility] ). Mario Spencer MD - 01/20/2015 8:39 AM PDTFormatting of this note might be different from the o riginal. Progress Notes by Mario Crawford MD at 01/20/15838 Author: Mario Crawford MD Service: Cardiology Author Type: Physician Filed: 01/20/15 0670 Date of Service: 01/20/15838 Status: Signed Statistical Reporting Analyst: Mario Crawford MD (Physician) [facility] Service: Cardiology Progress Note Hospital Day: LOS: 17 days Post-Op Day: 3 Days Post-Op SUBJECTIVE Patient Summary: 64 y.o. male with no previous cardiac history. 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 He underwent a robotic ultralow anterior resection o f the tumor, with a total mesorectal excision, coloanal pull-through, and diverting loop ile ostomy by Dr. Shore. On POD # 2, he developed atrial fibrillation with rapid ventricular response, but this resolved spontaneously. During the course of his hospitalization, he has had recurrent episodes of atrial fibrillation with RVR, and with these, tends to drop his b lood pressure. He has required IV pressors at times. On 01/12/15, postoperative day #9, he b ecame hypotensive, tachycardic, and tachypneic, with evidence of lactic acidosis and metabol ic acidosis, which he was intubated and transferred to ICU. A chest x-ray subsequently revea led a large infiltrate over most of the right lung, with a small pleural effusion. Dr. Cheyanne murphy's report to me, although the patient had been told not to eat or drink, he was drinking water from his room sitting and aspirated. He has been on IV pressors, now discontinued, an d antibiotics. He has complained of splinting pain of the chest, mostly on the right side bu t also some on the left side today. He has evidence of acute pancreatitis (labs improving), and an ultrasound shows contraction of the gallbladder. A HIDA scan was consistent with a pa tent cystic duct, probable chronic liver disease. LFTs have been elevated, possibly due to i schemic hepatitis from the hypotension, but I note that he also has a significant history of alcohol intake - these are improving. His initial echocardiogram done 01/05/15 showed pro l LV systolic function, with an EF of 65-70%, and mild MR. A repeat echocardiogram done 12/26 11/09 showed decreased LV systolic function, with global hypokinesis, EF 35-40%. I reviewed t he images personally, and it also appears that the right ventricle has mild systolic dysfunc tion. Unlike the first echocardiogram, there was also evidence of grade 2 diastolic dysfunct ion, and the mitral regurgitation and gone from mild to moderate, with the development of mi ld-moderate tricuspid regurgitation and borderline pulmonary hypertension. The peak right ve ntricular systolic pressure was estimated at 37.[address] scan of the abdomen showed exte nsive calcification of the coronary arteries and mild cardiomegaly. It therefore also appear s that he has significant underlying coronary artery disease, which will need further evalua tion once he is stable. A chest tube was placed for a small-moderate pleural effusion. Events Overnight: No further AFib since 01/16/15. Intubated over the weekend, indica romaine "yes" when questioned about SOB on vent with head gestures. Past Medical History Diagnosis Date Arthritis Hyperlipidemia Joint pain Rectal cancer (HCC) 09/06/2014 Acute kidney injury (HCC) 01/12/2015 Past Surgical History Procedure Laterality Date Colonoscopy Flexible sigmoidoscopy N/A 08/21/2014 Procedure: SIGMOIDOSCOPY - FLEXIBLE; Surgeon: Saleem Shore MD; Location: [facility]; Service: General; Laterality: N/A; Total hip arthroplasty Bilateral Knee surgery Right Flexible sigmoidoscopy N/A 12/25/2014 Procedure: SIGMOIDOSCOPY - FLEXIBLE; Surgeon: Saleem Shore MD; Location: [facility]; Service: General; Laterality: N/A; Robotic assisted laparoscopic colon resection - coloanal N/A 01/03/2015 Procedure: ROBOTIC ASSISTED LAPAROSCOPIC COLON RESECTION - COLOANAL; Surgeon: Saleem chauhan MD; Location: [facility] MAIN OR; Service: General; Laterality: N/A; coloanal pull thr ough Flexible sigmoidoscopy N/A 01/03/2015 Procedure: SIGMOIDOSCOPY - FLEXIBLE; Surgeon: Saleem Shore MD; Location: [facility] MAIN OR; Service: General; Laterality: N/A; Sigmoidoscopy - rigid N/A 01/03/2015 Procedure: SIGMOIDOSCOPY - RIGID; Surgeon: Saleem Shore MD; Location: [facility] MAIN OR ; Service: General; Laterality: N/A; Flexible bronchoscopy N/A 01/17/2015 Procedure: BRONCHOSCOPY - FLEXIBLE; Surgeon: Lui Lindsey MD; Location: [facility]ED[facility] E PROCEDURE; Service: Speech And Hearing Clinic Director; Laterality: N/A; Allergies Allergen Reactions Seasonal Allergies [Other-Environmental] Itching Scheduled Medications ampicillin-sulbactam 3 g Intravenous Q6H digoxin 0.25 mg Intravenous Daily fat emulsion 250 mL Intravenous Daily furosemide 40 mg Intravenous BID heparin (porcine) 5000 unit/0.5mL 5,000 Units Subcutaneous Q8H insulin aspart 0-16 Units Subcutaneous 4 times per day levofloxacin 500 mg Intravenous Q24H lidocaine buffered 1% 0.5 mL Intradermal Once xecpphyu-ifcwvnkzdn-piwfolxlt Ophthalmic 4 times per day nystatin 5 mL Oral 4x Daily pantoprazole 40 mg Intravenous QAM AC Continuous Infusions dexmedetomidine in NS 1 mcg/kg/hr (01/20/15 0786) fentaNYL in NS 5 mcg/mL 150 mcg/hr (01/20/15 4985) norepinephrine in D5W 64 mcg/mL 4 mcg/min (01/17/15 7488) TPN ADULT 75 mL/hr at 01/19/15 8533 PRN Medications acetaminophen, albuterol, dextrose, dextrose, HYDROmorphone OR HYDROmorphone, lip moist urizer, magnesium sulfate OR magnesium sulfate OR magnesium sulfate, nystatin, nysta tin, [DISCONTINUED] ondansetron OR ondansetron, petrolatum, polyethylene glycol, potassi um chloride OR potassium chloride OR potassium chloride, promethazine, sodium phosph ate IVPB 15 mmol OR sodium phosphate IVPB 30 mmol OBJECTIVE Vital Signs: BP 95/52 mmHg | Pulse 68 | Temp(Src) 99.1 F (37.3 C) (Axillary) | Resp 25 | Ht 1.626 m (5' 4") | Wt 81 kg (178 lb 9.2 oz) | BMI 30.64 kg/m2 | SpO2 97% Temp: [98.3 F (36.8 C)-99.1 F (37.3 C)] 98.3 F (36.8 C) (01/20 1400) BP: (81-109)/(48-59) 90/51 mmHg (01/20 1525) Heart Rate: [65-74] 74 (01/20 1505) Resp: [17-52] 24 (01/20 152) SpO2: [92 %-100 %] 95 % (01/20 1525) FiO2 : [0 %-30 %] 30 % (01/20 150) Telemetry: NSR - mild sinus tachycardia GENERAL: Thin, ill-appearing male, on a mechanical ventilator. Appears older than his stated age. HEENT: Normocephalic, atraumatic. ETT in place. EYES: PERRL, sclerae anicteric, no xanthelsasmas MOUTH: Oral mucosae moist, missing upper incisors, very poor and dentition, no lesions note d NECK: No JVD, lymphadenopathy, thyromegaly, bruits. Carotid pulses are 2+ bilaterally LUNGS: Tachypneic, extensive rhonchi in the right anterior and left upper and lower lung fi elds, no rales or wheezing noted, respirations unlabored HEART: Nondisplaced PMI, tachycardic rate, regular rhythm, S1, S2 normal. No murmurs, rubs or gallops noted. ABDOMEN: Diffuse voluntary guarding. Bowel sounds are present but decreased in all 4 quadra nts, colostomy bag in place, draining. The abdominal aortic pulsation was not examined due t o pain and recent surgery EXTREMITIES: Trace ankle edema. Radial pulses 2+ bilaterally. Femoral pulses are 2+ bilater ally without bruits. DP and PT pulses are 2+ bilaterally. SKIN: Warm and dry, capillary refill is normal, no lesions. NEUROLOGIC: Awake, but mental status is decreased, difficult to assess due to his intubated status. Not tested for focal motor deficits. PSYCHIATRIC: Cannot assess at present DATA CBC: Lab Results Component Value Date WBC 11.70* 01/20/2015 RBC 2.50* 01/20/2015 HGB 8.3* 01/20/2015 HCT 24.1* 01/20/2015 MCV 96.5 01/20/2015 MCH 33.3 01/20/2015 MCHC 34.5 01/20/2015 RDW 42.9 01/20/2015 PLT 185 01/20/2015 MPV 9.7 01/20/2015 DIFFTYPE AUTOMATED 01/20/2015 CMP: Lab Results Component Value Date NA 136 01/20/2015 K 4.1 01/20/2015 CL 106 01/20/2015 CO2 22* 01/20/2015 ANIONGAP 12 01/20/2015 GLUF 119* 01/20/2015 BUN 27* 01/20/2015 CREATININE 0.70 01/20/2015 BCR 38 01/20/2015 CA 7.1* 01/20/2015 PROT 5.7* 01/20/2015 ALB 1.2* 01/20/2015 GLOB 2.7 01/12/2015 BILITOT 3.0* 01/20/2015 ALP 88 01/20/2015 AST 28 01/20/2015 ALT 82* 01/20/2015 EGFR >60 01/20/2015 LDH 167 Ionized Calcium: Lab Results Component Value Date THEO 1.05* 01/16/2015 PH 7.442 01/16/2015 Magnesium: Lab Results Component Value Date MG 2.2 01/20/2015 Phosphorus: Lab Results Component Value Date PHOS 3.7 01/20/2015 PROBLEM LIST Principal Problem: Aspiration pneumonia (HCC) Active Problems: Rectal cancer (HCC) Persistent atrial fibrillation (HCC) Hyperlipidemia Abdominal pain Anemia Atrial fibrillation with RVR (HCC) Severe sepsis (HCC) Acute respiratory failure with hypoxia (HCC) Acute kidney injury (HCC) Acute pancreatitis ASSESSMENT & PLAN 1. Episodes of Paroxysmal atrial fibrillation, with rapid ventricular response, associated with episodes of hypotension. He tends to break spontaneously to sinus rhythm. There have b een no recurrent episodes since 01/16/15. He has no prior history of atrial arrhythmias, an d this is probably due to his recent surgery, fluid shifts, and the aspiration pneumonia. As such, it is likely that this will eventually resolve on its own. He is currently on digoxin (level pending). With the pancreatitis and abnormal LFTs, I would avoid amiodarone. If he h as recurrent atrial fibrillation, the only other antiarrhythmic medication that could be con sidered, given his LV systolic dysfunction, would be dofetilide, and Colby Hernandez M.D. will need to be consulted to use this medication. If he becomes hemodynamically unstable again, then direct current cardioversion on an emergent basis would be the best treatment. He is on subcutaneous heparin, which should be changed to full dose Lovenox, 1 mg/kg twice a day, if he has recurrent atrial fibrillation. I strongly recommend avoiding the use of dobutamine, which will only serve to increase his ventricular rate, possibly causing greater hemodynamic instability and hypotension. If pressures are needed, Levothroid would be a better choice. His CHADS2 VASc score is 1, therefore chronic oral anticoagulation is not considered necessa ry at this time. 2. Acute dilated cardiomyopathy, with significantly decreased LV systolic function between his 2 echocardiograms, done just one week apart, the most recent one showing a left ventricu lar ejection fraction of 35-40%. His troponin was only minimally elevated, and I do not susp ect that he has had an acute NC. The inferior infarct cited on his EKG from 01/11/15 does no t appear to be true, as there are intermittent "r" waves in aVF. There were no acute ischemi c changes noted. He benefit from standard medical therapy with beta blockers and isaac inhibit ors, but at present, his blood pressure has been too low to consider starting these just yet . 3. Extensive coronary calcifications consistent with atherosclerosis, suggesting significan t multivessel coronary artery disease. This will need to be evaluated once he is more along in his recovery from surgery, and more stable. 4. Extensive right-sided aspiration pneumonia, on antibiotics 5. Invasive moderately differentiated rectal adenocarcinoma, for which she underwent surger y 01/03/15 6. Acute pancreatitis, possibly ischemic due to low blood pressure 7. Elevated LFTs, also possibly ischemic, due to low blood pressure 8. History of alcohol abuse Disposition: Continue ICU care. At this point, the atrial fibrillation appears to be under control. I will see him periodically, and when he is more stable, before discharge, we will address the issue of CAD. Code Status: Full Code Mario Crawford MD 01/20/2015 onversion Transacti on, Provider Unknown - 01/20/2015 7:58 AM PDTFormatting of this note might be different fro m the original. Progress Notes by JESSICA Colin at 01/20/15 8984 Author: JESSICA Colin Service: Speech And Hearing Clinic Director Author Type: Medical Student Filed: 01/20/15 4613 Date of Service: 01/20/15 4067 Status: Attested Statistical Reporting Analyst: JESSICA Colin (Medical Student) Cosigner: Stalin Finney MD at 01/20/15 2798 Attestation signed by Stalin Finney MD at 01/20/15 7572 I have seen and examined the patient and discussed the findings and overall plan with JESSICA Salvador. I agree with the above note. *Please bill 35 minutes of critical care time spent evaluating the patient, reviewing the d jose guadalupe and formulating a plan exclusive of all other procedures. Stalin Finney MD Pulmonary and Critical Care Medicine [facility] 01/20/15 4:05PM [facility] Service: Speech And Hearing Clinic Director Progress Note Jose Eaton 64 y.o. Hospital Day: LOS: 17 days Post-Op Day: 3 Days Post-Op Consulting Physicians Treatment Team: Consulting Physician: Amy Simons MD Consulting Physician: Mario Crawford MD Admitting Provider: Saleem Shore MD SUBJECTIVE Patient Summary: Pt is a 64 y/o Burkinan speaking M with past medical history significant for hyperlipidemia, rectal cancer, on chemotherapy with 5-FU . 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 . While on the floor the pt had some episodes of n/v, tachycardia, temp spikes, episodes of afib, was diagnosed with SBO. Pt complained of th irst and was found drinking water out of the sink despite being educated regarding his NPO s tatus, it is thought that he aspirated. 01/11/15 a RAT was called as the pt was hypotensive & tachycardic, he was given 5L crystall oids and his BP improved but he became tachypneic. Stat blood gas showed metabolic acidosis and lactic acidosis. Pt showed signs of respiratory fatigue with increasing O2 requirement a nd was subsequently intubated, given 2 pushes of bicarb. Post-intubation CXR revealed R-side d pneumonia, he was started on IV Zosyn plus vancomyin. ICU Timeline: 01/12: Pt transferred to ICU. RIJ, arterial line placed. 01/13: Hypotensive requiring pressor. Echo showed reduced EF. Developed Afib with RVR. S tarted on digoxin. 01/15: Off pressors. Failed SBT. Diuresed with Lasix. 01/16: Extubated, on 2L O2. Started on Precedex. Acute pancreatitis. 01/18: Reintubated and bronch w LLL mucus plug 01/19: Remained intubated. Events Overnight: R Chest tube placed for pleural effusion. Pleural fluid cultures sent. SCHEDULED MEDICATIONS ampicillin-sulbactam 3 g Intravenous Q6H digoxin 0.25 mg Intravenous Daily fat emulsion 250 mL Intravenous Daily furosemide 40 mg Intravenous BID heparin (porcine) 5000 unit/0.5mL 5,000 Units Subcutaneous Q8H insulin aspart 0-16 Units Subcutaneous 4 times per day levofloxacin 500 mg Intravenous Q24H lidocaine buffered 1% 0.5 mL Intradermal Once jbmcckmq-hzwyyufpxk-wnosltfsp Ophthalmic 4 times per day nystatin 5 mL Oral 4x Daily pantoprazole 40 mg Intravenous QAM AC CONTINUOUS INFUSIONS dexmedetomidine in NS 1 mcg/kg/hr (01/20/15 0790) fentaNYL in NS 5 mcg/mL 150 mcg/hr (01/20/15 2175) norepinephrine in D5W 64 mcg/mL 4 mcg/min (01/17/15 4106) TPN ADULT 75 mL/hr at 01/19/15 8062 OBJECTIVE VITAL SIGNS Temp: [98.4 F (36.9 C)-99.4 F (37.4 C)] 99.1 F (37.3 C) Heart Rate: [66-74] 68 Resp: [17-39] 25 BP: (87-114)/(48-62) 95/52 mmHg FiO2 : [30 %] 30 % Intake/Output Summary (Last 24 hours) at 01/20/15 0759 Last data filed at 01/20/15 0617 Gross per 24 hour Intake 3758.42 ml Output 6710 ml Net -2951.58 ml EXAM GEN: awake, alert, intubated, NAD NEURO: PERRLA, opens eyes spontaneously and in response to stimuli, no facial asymmetry, mo ves all 4 extremities, nods yes and no in response to questions HEENT: sclerae clear, nonicteric, oral mmm, pink, no exudates NECK: supple, trachea midline HEART: RRR, no murmur, rub or gallop LUNGS: decreased and coarse lung sounds, no wheezing or rhonchi, symmetric chest expansion ABD: soft, nondistended, diffusely tender to palpation, colostomy bag contains dark green o utput, skin surrounding colostomy bag is c/d/i non erythematous. EXTR: slight pedal edema, no clubbing or cyanosis SKIN: warm, dry, edematous most pronounced in scrotal region with evidence of beginning ski n breakdown inside the foreskin of the penis, small scab on R lower lip, skin surrounding ab dominal wounds is c/d/i and non erythematous; no e/o skin breakdown over the occiput, scapul ae, elbows, sacrum or heels LINES/TUBES: R chest Port A cath (09/06/14), NG/OG tube (01/17), Catheter (01/11), Ileostomy RUQ (01/03), R chest tube (), ETT (01/17) DATA Recent Labs Lab 01/20/1542601/19/1535 01/18/15 0509 01/17/15 0302 01/16/15 1350 WBC 11.70* 11.53* 13.63* 10.87 10.81 RBC 2.50* 2.48* 2.79* 2.78* 2.90* HGB 8.3* 8.4* 9.0* 9.2* 9.8* HCT 24.1* 24.0* 27.5* 27.1* 28.3* MCV 96.5 96.8 98.3 97.5 97.7 MCH 33.3 33.6 32.2 33.1 33.6 MCHC 34.5 34.8 32.7 33.9 34.4 RDW 42.9 44.6 45.5 42.9 44.2 PLT 185 144* 132* 110* 127* MPV 9.7 9.9 9.9 10.6 9.7 BANDSABS -- 0.23* -- 0.33* 0.22* NEUTROABS 10.54* -- -- -- -- LYMPHSABS 0.31* -- -- -- -- MONOSABS 0.57 -- -- -- -- BASOSABS 0.03 -- -- -- -- EOSABS 0.25 -- -- -- -- MORPH RBC AND PLT MORPHOLOGY APPEAR NORMAL RBC AND PLT MORPHOLOGY APPEAR NORMAL RBC AND PLT MORPHOLOGY APPEAR NORMAL NORMAL RBC MORPH RBC AND PLT MORPHOLOGY APPEAR NORMAL Recent Labs Lab 01/20/1542601/19/1535 01/18/15 0509 NA 136 137 140 K 4.1 4.2 4.4 CL 106 106 108 CO2 22* 26 27 ANIONGAP 12 10 10 GLUF 119* 128* 129* BUN 27* 23 25 CREATININE 0.70 0.67* 0.61* BCR 38 35 41 CA 7.1* 7.2* 7.4* ALB 1.2* 1.1* 1.2* PROT 5.7* 5.2* 5.2* BILITOT 3.0* 3.0* 3.0* ALT 82* 113* 197* AST 28 26 55* EGFR >60 >60 >60 PHOS 3.7 4.0 3.6 MG 2.2 2.2 2.6* No results for input(s): INR in the last 168 hours. Hepatic Function Panel: Lab Results Component Value Date PROT 5.7* 01/20/2015 ALB 1.2* 01/20/2015 BILITOT 3.0* 01/20/2015 BILIDIR 2.5* 01/20/2015 ALP 88 01/20/2015 AST 28 01/20/2015 ALT 82* 01/20/2015 Lipase: Lab Results Component Value Date LIPASE 199 01/19/2015 IMAGING X-ray Chest Ap Only 01/20/2015 1. Pigtail catheter seen in the right pleural space. There is a possible kink at the chest wall. 2. Mildly improved opacity in the right hemithorax. 3. Right IJ catheter removed. Other tubes and lines appear stable. RADIA Electronically signed by Bjorn caballero MD on Jan 20 2015 4:36AM Referring Provider Line: [phone] ID: [id number] Ct Chest Without Contrast 01/19/2015 1. Worsening dense infiltrative changes throughout most of the right lung, wi th increasing small to moderate right pleural effusion and persistent minimal left effusion. 2. Minimal left basilar atelectasis or infiltrate, subtly increased. 3. No adenopathy. 4. Stable tubes and lines. X-ray Abdomen Acute Series 01/17/2015 1. Worsening infiltrate, with increasing small to moderate right pleural effu alex. 2. Persistent mild infiltrate left lung base. 3. Persistent mild cardiac enlargement . 4. Unchanged lines. Nm Hepatobiliary With Cck 01/17/2015 1. Significant cholestasis with persistent hepatic uptake seen 4 hours post i njection. 2. Gallbladder not initially seen at 60 minutes but does fill 4 hours post Cholet ec injection suggesting that the cystic duct is patent. Ultrasound Abdomen Limited 01/16/2015 1. Contracted gallbladder with the gallbladder wall thickening, sludge, and p ositive sonographic Brar sign. Acute cholecystitis is not excluded. 2. Small 4 mm polyp w ithin the gallbladder. LEM LIST Principal Problem: Aspiration pneumonia (HCC) Active Problems: Rectal cancer (HCC) Persistent atrial fibrillation (HCC) Hyperlipidemia Abdominal pain Anemia Atrial fibrillation with RVR (HCC) Severe sepsis (HCC) Acute respiratory failure with hypoxia (HCC) Acute kidney injury (HCC) Acute pancreatitis ASSESSMENT & PLAN NEURO: Mental status: Awake but CAM positive, may be d/t language barrier. Currently on Precede x. Pain control: on 5 of Fentanyl CV: Afib: On digoxin 0.25 mg, digoxin level 0.8 on 01/18, recheck dig level. Last incidence of Afib 01/16, currently sinus rhythm. Acute dilated cardiomyopathy, decreased LV systolic function: Dr. Crawford consulted, follow ing, recommends starting beta marilyn and isaac inhibitor when BP normalizes. CAD: Dr. Crawford consulted, following. F/up in outpatient setting Hypotension: resolved, pt off pressors. PULM: RLL aspiration pneumonia: On Unasyn plus levofloxacin day 01/08 per ID. Acute respirator y failure with hypoxia: Pt reintubated on 01/18 and s/p bronch which found LLL mucus plug. C urrently on pressure support vent settings but did have some thick, lentz secretions. Continue weaning down on vent and SBT with goal to extubate in the afternoon if possible. Continue d iureses with Lasix 40 mg BID to optimize respiratory status. R sided pleural effusion: Pleural fluid cultures pending following chest tube placement. Likely parapneumonic effusion, fluid pH 7.78 which decreases likelihood that it is an empye ma. Fluid total protein and glucose pending. GI/NUTRITION: Acute pancreatitis: Continuing on bowel rest per surgical recs. Lipase has decreased to 199 on 01/19, pain currently controlled on fentanyl. Elevated AST, ALT, direct & total bili: Continuing to improve. Hepatobiliary dysfunction likely secondary to hypotension, HIDA scan was suggestive of hepatocellular disease. Rectal cancer: S/p coloanal pull-through for low rectal cancer Nutrition: On TPN RENAL/LYTES: NICOL: Resolved 01/12 Electrolytes: hypocalcemia in setting of acute pancreatitis, continue monitoring calcium . ID: Aspiration pneumonia: On Unasyn plus levofloxacin day 01/08 per ID. Pleural fluid cultur es pending. E. coli bacteremia, sepsis: Currently on Unasyn plus levofloxacin. Serial blood draws ne gative. ID following. HEME: Anemia: appears stable, etiology likely dilutional. No evidence of active bleeding, cont inue monitoring ENDO: BG: On SSI, goal of BG below 180 MUSC/SKIN: Colostomy, surgical wounds: Healing well, continue with wound care. Possible penile pressure sore: wound care consult ordered PT/OT/speech: goal of dangling today. Other therapy on hold as pt currently intubated. PROPHYLAXIS: Stress ulcer prophylaxis: Protonix DVT prophylaxis: heparin, SCD's VAP bundle: chlorhexadine oral care, HOB >30 degrees. Disposition: ICU care as above. Wean down on vent, SBT, goal of extubating, continue diure sing with Lasix, wound care ordered, dangle. Code Status: Full Code Rubia Jass, MS-4 01/20/2015 Rahul Larios DO - 01/20/2015 7:00 AM PDTFormatting of this note might be different from the randolph ginal. Progress Notes by Rahul Valles DO at 01/20/15699 Author: Rahul Valles DO Service: (none) Author Type: Physician Filed: 01/20/15716 Date of Service: 01/20/15699 Status: Signed Statistical Reporting Analyst: Rahul Valles DO (Physician) [facility] Service: Infectious Disease Progress Note Hospital Day: LOS: 17 days Post-Op Day: 10 Days Post-Op SUBJECTIVE Patient Summary: 64-year-old with rectal cancer, status post chemoradiation, status post robotic resection, ileostomy on 01/03. Had an episode of vomiting on 01/11, and also idllan gnosed with partial SBO. It appears that patient was noncompliant with nothing by mouth stat us and may have aspirated. He was brought to the ICU with respiratory failure intubated and ventilated. Started on IV Zosyn plus vancomycin plus metronidazole. On press source. 01/15 Patient remains intubated and ventilated. Remains on low-dose dobutamine and pressor s. Failed spontaneous breathing trial. TPN: Day #5 Low-grade temperature 100.5 Fahrenheit noted this morning. White count remains normal. 01/17 - intubated in the evening for hypoxemic respiratory failure. CC: Abdominal pain, pneumonia Chart reviewed: Intubated last evening. Subjective Chest tube was placed this morning. The patient has remained off pressors more than 24 елена rs. ROS Not possible, intubated and sedated. Scheduled Medications ampicillin-sulbactam 3 g Intravenous Q6H digoxin 0.25 mg Intravenous Daily fat emulsion 250 mL Intravenous Daily furosemide 40 mg Intravenous BID heparin (porcine) 5000 unit/0.5mL 5,000 Units Subcutaneous Q8H insulin aspart 0-16 Units Subcutaneous 4 times per day levofloxacin 500 mg Intravenous Q24H lidocaine buffered 1% 0.5 mL Intradermal Once nrczbhna-cwpwsynwiq-chqhwwoqp Ophthalmic 4 times per day nystatin 5 mL Oral 4x Daily pantoprazole 40 mg Intravenous QAM AC Continuous Infusions dexmedetomidine in NS 1 mcg/kg/hr (01/20/15 0130) fentaNYL in NS 5 mcg/mL 150 mcg/hr (01/20/15 0415) norepinephrine in D5W 64 mcg/mL 4 mcg/min (01/17/15 0118) TPN ADULT 75 mL/hr at 01/19/15 2353 PRN Medications acetaminophen, albuterol, dextrose, dextrose, HYDROmorphone OR HYDROmorphone, lip moist urizer, magnesium sulfate OR magnesium sulfate OR magnesium sulfate, nystatin, nysta tin, [DISCONTINUED] ondansetron OR ondansetron, petrolatum, polyethylene glycol, potassi um chloride OR potassium chloride OR potassium chloride, promethazine, sodium phosph ate IVPB 15 mmol OR sodium phosphate IVPB 30 mmol OBJECTIVE Vital Signs: BP 95/52 mmHg | Pulse 67 | Temp(Src) 99.1 F (37.3 C) (Axillary) | Resp 18 | Ht 1.626 m (5' 4") | Wt 81 kg (178 lb 9.2 oz) | BMI 30.64 kg/m2 | SpO2 99% Temp: [98.4 F (36.9 C)-99.4 F (37.4 C)] 99.1 F (37.3 C) (01/21 400) BP: (87-114)/(48-62) 95/52 mmHg (01/20 600) Heart Rate: [66-74] 67 (01/20 600) Resp: [17-39] 18 (01/20 600) SpO2: [96 %-100 %] 99 % (01/20 600) FiO2 : [30 %] 30 % (01/21 400) Exam: Const: Vitals reviewed. Intubated and sedated. Skin: No rashes, no edema Right chest Mediport site unremarkable. Right IJ triple-lumen catheter has been removed. ENT: Endotracheal tube is in place. Lungs: mechanical breath sounds bilaterally. No pleural rub. Chest tube in place on the rig ht. Heart: RRR, no murmur Abd: soft, diffuse tenderness, + bowel sounds Musculoskeletal: No gross deformity or active arthritis DATA CBC: Lab Results Component Value Date WBC 11.70* 01/20/2015 RBC 2.50* 01/20/2015 HGB 8.3* 01/20/2015 HCT 24.1* 01/20/2015 MCV 96.5 01/20/2015 MCH 33.3 01/20/2015 MCHC 34.5 01/20/2015 RDW 42.9 01/20/2015 PLT 185 01/20/2015 MPV 9.7 01/20/2015 DIFFTYPE AUTOMATED 01/20/2015 WBC: Lab Results Component Value Date WBC 11.70* 01/20/2015 NEUTABSMAN 9.80* 01/19/2015 NEUTROABS 10.54* 01/20/2015 NEUTROMAN 85 01/19/2015 LYMPHOABS 0.69* 01/19/2015 LYMPHOMAN 6 01/19/2015 LYMPHSABS 0.31* 01/20/2015 LYMPHOPCT 2.67 01/20/2015 MONOABSMAN 0.69 01/19/2015 MONOMAN 6 01/19/2015 MONOPCT 4.91 01/20/2015 EOSINOABS 0.12 01/19/2015 EOSINOMAN 1 01/19/2015 EOSABS 0.25 01/20/2015 EOSPCT 2.15 01/20/2015 BASOSABS 0.03 01/20/2015 BASOPCT 0.23 01/20/2015 PLTEST ADEQUATE 01/20/2015 BANDSPCT 2 01/19/2015 NRBC 1* 01/18/2015 METAABS 0.41* 01/18/2015 METAPCT 3 01/18/2015 MYELOABS 0.27* 01/18/2015 MYELOPCT 2 01/18/2015 COMDIFF SLIDE SCANNED, AGREES WITH AUTOMATED RESULTS. 01/20/2015 CMP: Lab Results Component Value Date NA 136 01/20/2015 K 4.1 01/20/2015 CL 106 01/20/2015 CO2 22* 01/20/2015 ANIONGAP 12 01/20/2015 GLUF 119* 01/20/2015 BUN 27* 01/20/2015 CREATININE 0.70 01/20/2015 BCR 38 01/20/2015 CA 7.1* 01/20/2015 PROT 5.7* 01/20/2015 ALB 1.2* 01/20/2015 GLOB 2.7 01/12/2015 BILITOT 3.0* 01/20/2015 ALP 88 01/20/2015 AST 28 01/20/2015 ALT 82* 01/20/2015 EGFR >60 01/20/2015 Microbiology: BAL culture shows Jazmin albicans, no bacterial growth. Medical imaging: CT scan of the chest performed on January 19 was viewed in PACS and shows dense consolidation in the right lower lobe with air bronchograms and moderate sized adjacen t pleural effusion. This morning's chest x-ray shows interval placement of a chest tube into the right pleural space with significant improvement in aeration of the right lung area and radiology report as follows: IMPRESSION: 1. Pigtail catheter seen in the right pleural space. There is a possible kink at the chest wall. 2. Mildly improved opacity in the right hemithorax. 3. Right IJ catheter removed. Other tubes and lines appear stable. RADIA Electronically signed by Bjorn Bustillos MD on Jan 20 2015 4:36AM PROBLEM LIST Principal Problem: Aspiration pneumonia (HCC) Active Problems: Rectal cancer (HCC) Persistent atrial fibrillation (HCC) Hyperlipidemia Abdominal pain Anemia Atrial fibrillation with RVR (HCC) Severe sepsis (HCC) Acute respiratory failure with hypoxia (HCC) Acute kidney injury (HCC) Acute pancreatitis ASSESSMENT & PLAN Septic shock, multifactorial Secondary to severe aspiration pneumonia, pancreatitis. CT scan yesterday showed significan t parapneumonic effusion. Appreciate chest tube placement. This morning's chest x-ray sugges ts adequate drainage. Continue Unasyn plus levofloxacin - day #01/08 today. may need to consider longer duration due to parapneumonic effusion which has just been drained. We will follow-up on pleural flui d cultures and adjust antibiotic regimen if indicated. Question of cholecystitis HIDA scan results noted. Bacteremia Gram-negative rods -now identified as Escherichia coli -noted only in the anaerobic bottle of one set from cultures on 01/11. Possible bacteremia from aspiration pneumonia sputum has also shown Escherichia coli. We will continue antibiotics for a total of 14 days following first negative blood culture (January 11). Rectal cancer Status post surgery on 01/03. Code Status: Full Code RAHUL VALLES DO 01/20/2015 Saleem Rodriguez MD - 01/19/2015 11:43 AM PDT Progress Notes by Saleem Shore MD at 01/19/15 1143 Author: Saleem Shore MD Service: General Surgery Author Type: Physician Filed: 01/19/15 1147 Date of Service: 01/19/15 114 Status: Signed Statistical Reporting Analyst: Saleem Shore MD (Physician) [facility] Service: Colon & Rectal Surgery Progress Note Hospital Day: LOS: 16 days Post-Op Day: 15 Day Post-Op SUBJECTIVE Patient Summary: S/P Coloanal pull-through for low rectal cancer. Events Overnight: LFT and lipase are improving, his overall condition is improving, hi s respiratory status remains the same, CT of the chest with not much improvement on the cons olidation. Remains intubated. Scheduled Medications ampicillin-sulbactam 3 g Intravenous Q6H digoxin 0.25 mg Intravenous Daily fat emulsion 250 mL Intravenous Daily furosemide 40 mg Intravenous BID heparin (porcine) 5000 unit/0.5mL 5,000 Units Subcutaneous Q8H insulin aspart 0-16 Units Subcutaneous 4 times per day levofloxacin 500 mg Intravenous Q24H nfxexswo-saaputmpcw-jusewslqo Ophthalmic 4 times per day nystatin 5 mL Oral 4x Daily pantoprazole 40 mg Intravenous QAM AC Continuous Infusions dexmedetomidine in NS 0.5 mcg/kg/hr (01/19/15 0950) fentaNYL in NS 5 mcg/mL 50 mcg/hr (01/19/15 0950) norepinephrine in D5W 64 mcg/mL 4 mcg/min (01/17/152217) TPN ADULT 75 mL/hr at 01/18/152122 TPN ADULT PRN Medications acetaminophen, albuterol, dextrose, dextrose, HYDROmorphone OR HYDROmorphone, lip moist urizer, magnesium sulfate OR magnesium sulfate OR magnesium sulfate, nystatin, nysta tin, [DISCONTINUED] ondansetron OR ondansetron, petrolatum, polyethylene glycol, potassi um chloride OR potassium chloride OR potassium chloride, promethazine, sodium phosph ate IVPB 15 mmol OR sodium phosphate IVPB 30 mmol OBJECTIVE Vital Signs: BP 103/56 mmHg | Pulse 66 | Temp(Src) 99.4 F (37.4 C) (Axillary) | Resp 25 | Ht 1.626 m (5' 4") | Wt 81 kg (178 lb 9.2 oz) | BMI 30.64 kg/m2 | SpO2 97% Temp: [98.8 F (37.1 C)-99.9 F (37.7 C)] 99.4 F (37.4 C) (01/20 800) BP: (85-152)/(50-98) 103/56 mmHg (01/19 1100) Heart Rate: [66-143] 66 (01/19 1100) Resp: [14-60] 25 (01/19 1100) SpO2: [93 %-99 %] 97 % (01/19 1100) FiO2 : [30 %-35 %] 30 % (01/20 800) Physical Exam Constitutional: He appears well-developed and well-nourished. He appears distressed. HENT: Head: Atraumatic. Eyes: Pupils are equal, round, and reactive to light. Neck: Neck supple. Abdominal: Soft. He exhibits distension. There is no tenderness. Genitourinary: Neurological: He is alert. Follows command Skin: Skin is warm. He is not diaphoretic. Vitals reviewed. DATA CBC: Lab Results Component Value Date WBC 11.53* 01/19/2015 RBC 2.48* 01/19/2015 HGB 8.4* 01/19/2015 HCT 24.0* 01/19/2015 MCV 96.8 01/19/2015 MCH 33.6 01/19/2015 MCHC 34.8 01/19/2015 RDW 44.6 01/19/2015 PLT 144* 01/19/2015 MPV 9.9 01/19/2015 DIFFTYPE MANUAL 01/19/2015 BMP: Lab Results Component Value Date NA 137 01/19/2015 K 4.2 01/19/2015 CL 106 01/19/2015 CO2 26 01/19/2015 ANIONGAP 10 01/19/2015 GLUF 128* 01/19/2015 BUN 23 01/19/2015 CREATININE 0.67* 01/19/2015 BCR 35 01/19/2015 CA 7.2* 01/19/2015 EGFR >60 01/19/2015 Magnesium: Lab Results Component Value Date MG 2.2 01/19/2015 Phosphorus: Lab Results Component Value Date PHOS 4.0 01/19/2015 PROBLEM LIST Principal Problem: Aspiration pneumonia (HCC) Active Problems: Rectal cancer (HCC) Persistent atrial fibrillation (HCC) Hyperlipidemia Abdominal pain Anemia Atrial fibrillation with RVR (HCC) Severe sepsis (HCC) Acute respiratory failure with hypoxia (HCC) Acute kidney injury (HCC) Acute pancreatitis ASSESSMENT & PLAN S/P Coloanal pull-through for low rectal cancer POD#15. Developed likely aspiration pneumo faye and sepsis. Afib now back in sinus again. He started declaring pancreatitis and liver dysfunction (likely due to hypotension). HIDA scan reviewed. Suggestive of hepatocellular disease. ileostomy is functional but slowed down form the pancreatitis. - Bowel rest and TPN. Disposition: Code Status: Full Code Saleem Shore MD 01/19/2015 innea Barraza, MS CCC-MAILROOM SUPERVISOR - 01/19/2015 10:21 AM PDTFormatting of this note might be different from the o riginal. Therapy Progress Note by Linnea Barraza MA CCC-MAILROOM SUPERVISOR at 01/19/15 1021 Author: Linnea Barraza MA CCC-MAILROOM SUPERVISOR Service: (none) Author Type: Speech and Language Pathologist Filed: 01/19/15 1021 Date of Service: 01/19/15 1021 Status: Signed Statistical Reporting Analyst: Linnea Barraza MA CCC-MAILROOM SUPERVISOR (Speech and Language Pathologist) 01/19/15 1020 MAILROOM SUPERVISOR Last Visit MAILROOM SUPERVISOR Received On 01/19/15 Requires MAILROOM SUPERVISOR Follow Up On hold (pt reintubated) unanan, Stalin Allen MD - 01/19/2015 10:10 AM PDTFormatting of this note might be differen t from the original. Progress Notes by Stalin Finney MD at 01/19/15 1010 Author: Stalin Finney MD Service: Speech And Hearing Clinic Director Author Type: Physician Filed: 01/19/15 1214 Date of Service: 01/19/15 1010 Status: Signed Statistical Reporting Analyst: Stalin Finney MD (Physician) [facility] Service: Speech And Hearing Clinic Director Progress Note Jose Eaton 64 y.o. Hospital Day: LOS: 16 days Post-Op Day: 14 Days Post-Op Consulting Physicians Treatment Team: Consulting Physician: Amy Simons MD Consulting Physician: Mario Crawford MD Admitting Provider: Saleem Shore MD SUBJECTIVE Patient Summary: Pt is a 64 y/o Burkinan speaking M with past medical history significant for hyperlipidemia, rectal cancer, on chemotherapy with 5-FU . 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 . While on the floor the pt had some episodes of n/v, tachycardia, temp spikes, episodes of afib, was diagnosed with SBO. Pt complained of th irst and was found drinking water out of the sink despite being educated regarding his NPO s tatus, it is thought that he aspirated. 01/11/15 a RAT was called as the pt was hypotensive & tachycardic, he was given 5L crystall oids and his BP improved but he became tachypneic. Stat blood gas showed metabolic acidosis and lactic acidosis. Pt showed signs of respiratory fatigue with increasing O2 requirement a nd was subsequently intubated, given 2 pushes of bicarb. Post-intubation CXR revealed R-side d pneumonia, he was started on IV Zosyn plus vancomyin. ICU Timeline: 01/12: Pt transferred to ICU. RIJ, arterial line placed. 01/13: Pt hypotensive requiring pressor. Echo showed reduced EF. Started on dobutamine w ith improvement of BP. Developed Afib with RVR. Started on digoxin, converted to sinus rhyth m. 01/15: Off pressors. Pt went back into Afib. Failed SBT. Diuresed with Lasix. Continued on dobutamine. 01/16: Extubated, on 2L O2. Started on Precedex d/t agitation & tachypnea. Complaining of RUQ abd pain & splinting while breathing. Acute pancreatitis. 01/18: reintubated and bronch w LLL mucus plug Events Overnight: Remains intubated; still w abdominal pain. Tolerating PSV. SCHEDULED MEDICATIONS ampicillin-sulbactam 3 g Intravenous Q6H digoxin 0.25 mg Intravenous Daily fat emulsion 250 mL Intravenous Daily furosemide 40 mg Intravenous BID heparin (porcine) 5000 unit/0.5mL 5,000 Units Subcutaneous Q8H insulin aspart 0-16 Units Subcutaneous 4 times per day levofloxacin 500 mg Intravenous Q24H rheirnyc-wyeapowttq-fwuvdtsxp Ophthalmic 4 times per day nystatin 5 mL Oral 4x Daily pantoprazole 40 mg Intravenous QAM AC CONTINUOUS INFUSIONS dexmedetomidine in NS 0.7 mcg/kg/hr (01/19/15 0938) fentaNYL in NS 5 mcg/mL 100 mcg/hr (01/19/15 0654) norepinephrine in D5W 64 mcg/mL 4 mcg/min (01/17/152217) TPN ADULT 75 mL/hr at 01/18/152122 TPN ADULT OBJECTIVE VITAL SIGNS Temp: [98.8 F (37.1 C)-99.9 F (37.7 C)] 99.4 F (37.4 C) Heart Rate: [68-143] 68 Resp: [7-60] 24 BP: (85-152)/(50-98) 98/56 mmHg FiO2 : [30 %-35 %] 30 % Intake/Output Summary (Last 24 hours) at 01/19/15 1010 Last data filed at 01/19/15 0939 Gross per 24 hour Intake 3602.15 ml Output 4820 ml Net -1217.85 ml EXAM GEN: awake, follows commands, in pain NEURO: PERRLA, no facial asymmetry, moves all 4 extremities HEENT: sclerae clear, nonicteric, oral mmm, pink, no exudates NECK: supple, trachea midline, intubated HEART: tahy, irreg, no murmur, rub or gallop LUNGS: scattered crackles bilat, dec BS at bases, no wheezing or rhonchi ABD: soft, no distended, colostomy w dark green stool, tender to palpation EXTR: no edema, clubbing or cyanosis SKIN: warm, dry, edematous most pronounced in the scrotal region, skin surrounding abdomina l wound is c/d/i and non erythematous; no e/o skin breakdown over the occiput, scapulae, elb ows, sacrum or heels LINES/TUBES: Port A Cath R chest 09/06/14, RIJ 01/12 DATA Recent Labs Lab 01/19/15 0535 01/18/15 0509 01/17/15 0302 01/16/15 1350 WBC 11.53* 13.63* 10.87 10.81 RBC 2.48* 2.79* 2.78* 2.90* HGB 8.4* 9.0* 9.2* 9.8* HCT 24.0* 27.5* 27.1* 28.3* MCV 96.8 98.3 97.5 97.7 MCH 33.6 32.2 33.1 33.6 MCHC 34.8 32.7 33.9 34.4 RDW 44.6 45.5 42.9 44.2 PLT 144* 132* 110* 127* MPV 9.9 9.9 10.6 9.7 BANDSABS 0.23* -- 0.33* 0.22* MORPH RBC AND PLT MORPHOLOGY APPEAR NORMAL RBC AND PLT MORPHOLOGY APPEAR NORMAL NORMAL RBC MORPH RBC AND PLT MORPHOLOGY APPEAR NORMAL Recent Labs Lab 01/19/15 0535 01/18/15 0509 01/17/15 0302 NA 137 140 139 K 4.2 4.4 4.0 CL 106 108 105 CO2 26 27 30 ANIONGAP 10 10 8 GLUF 128* 129* 104* BUN 23 25 31* CREATININE 0.67* 0.61* 0.64* BCR 35 41 48 CA 7.2* 7.4* 7.8* ALB 1.1* 1.2* 1.3* PROT 5.2* 5.2* 5.0* BILITOT 3.0* 3.0* 3.5* ALT 113* 197* 340* AST 26 55* 173* EGFR >60 >60 >60 PHOS 4.0 3.6 3.9 MG 2.2 2.6* 2.3 No results for input(s): INR in the last 168 hours. Amylase: Lab Results Component Value Date AMYLASE 133* 01/17/2015 Lipase: Lab Results Component Value Date LIPASE 199 01/19/[address] Chest 01/19/15 1. Worsening dense infiltrative changes throughout most of the right lung, with increasing small to moderate right pleural effusion and persistent minimal left effusion. 2. Minimal left basilar atelectasis or infiltrate, subtly increased. 3. No adenopathy. 4. Stable tubes and lines. CXR 01/17/15 1. Dense bronchopneumonia persists throughout the right lung. 2. Small bilateral pleural effusions noted. 3. Endotracheal tube, nasogastric tube and right-sided central line are in satisfactory pos ition. 4. No evidence of pneumothorax post bronchoscopy. Ultrasound Abdomen Limited 01/16/2015 1. Contracted gallbladder with the gallbladder wall thickening, sludge, and p ositive sonographic Brar sign. Acute cholecystitis is not excluded. 2. Small 4 mm polyp w ithin the gallbladder. Ct Chest Abdomen Pelvis With Iv Contrast 01/12/2015 1. Extensive right lung pneumonia with small parapneumonic effusion. 2. Mild cardiomegaly and severe coronary to ossifications. 3. Generalized anasarca, commonly seen i n septic patient's. There are several bubbles of gas in the subcutaneous tissues of uncertai n etiology but possibly iatrogenic. Correlate to exclude gas-forming soft tissue infection. 4. Fluid-filled proximal small bowel with relatively decompressed distal small bowel proxima l to the ileostomy. Favor normal variant/ileus over bowel obstruction. Gastroenteritis /radi ation enteritis could have a similar picture. RADIA Electronically signed by Nba cruz MD on Jan 12 2015 6:44AM Referring Provider Line: [phone] ID: [id number] Echo Cardiac Adult Complete 01/12/2015 1. Overall left ventricular systolic function is moderately impaired with, an EF between 35 - 40 %. 2. Pseudonormal LV diastolic filling pattern, consistent with elevated LA pressure and moderate dysfunction (Grade II). 3. The right ventricle is normal in size. 4. The right ventricular systolic function is impaired. 5. Moderate mitral regurgitation is present. 6. Wtej-ao-wrsbwdmq tricuspid regurgitation present. 7. There is mild pulmonary hyp ertension. PROBLEM LIST Principal Problem: Aspiration pneumonia (HCC) Active Problems: Rectal cancer (HCC) Persistent atrial fibrillation (HCC) Hyperlipidemia Abdominal pain Anemia Atrial fibrillation with RVR (HCC) Severe sepsis (HCC) Acute respiratory failure with hypoxia (HCC) Acute kidney injury (HCC) Acute pancreatitis ASSESSMENT & PLAN NEURO: Mental status: Awake, responds to questions. In pain. On precedex and fentanyl; decrea se fentanyl dose. Pain control: on fentanyl gtt. CV: Afib: increased digoxin to 0.25 daily; check level tomorrow. He is now off levophed; BB locker or Ca blockers may be an option. Acute dilated cardiomyopathy, decreased LV systolic function: Dr. Crawford consulted, follow ing, recommends starting beta marilyn and isaac inhibitor when BP normalizes. CAD: Dr. Crawford consulted, following. F/up in outpatient setting. Hypotension: resolved; off pressors. PULM: RLL aspiration pneumonia: Currently on unasyn and levaquin per ID. S/p bronch last nig ht, will follow up BAL results- showing GPC. Acute respiratory failure with hypoxia: reintubated 01/18, found LLL mucus plug. Cara ating SBT but in light of worsened pneumonia on CT chest; would hold off on extubation. Chip l increase PEEP. Repeat SBT tomorrow. GI/NUTRITION: Acute pancreatitis: Bowel rest, fluids, pain management, lipase down to 199. Elevated AST, ALT, direct & total bili: ischemic from hypotension versus hepatobiliary p athology. Improving as well. Rectal cancer: S/p coloanal pull-through for low rectal cancer RENAL/LYTES: NICOL: Resolved 01/12 Electrolytes: mild hypocalcemia in setting of acute pancreatitis, continue monitoring ca lcium. ID: Aspiration pneumonia: on unasyn/levaquin pre ID. E. coli bacteremia, sepsis: Currently on Unasyn plus levofloxacin. Most recent serial bl ood draws negative. HEME: Anemia: etiology likely dilutional, no evidence of active bleeding, continue monitoring ENDO: BG: On SSI, goal of BG below 180 MUSC/SKIN: Colostomy, surgical wounds: Healing well, continue with wound care. PT/OT: will attempt to dangle on bed. PROPHYLAXIS: Stress ulcer prophylaxis: Protonix DVT prophylaxis: heparin, SCD's VAP bundle: HOB >30, chlorhexidine Disposition: keep in ICU Code Status: Full Code Stalin Finney MD 01/19/2015 Time of service: 1212 PM *Please bill 35 minutes of critical care time spent evaluating the patient, reviewing the d jose guadalupe and formulating a plan exclusive of all other procedures. Rahul Larios DO - 01/19/2015 7:00 AM PDTFormatting of this note might be different from the randolph ginal. Progress Notes by Rahul Valles DO at 01/19/15699 Author: Rhaul Valles DO Service: (none) Author Type: Physician Filed: 01/19/1528 Date of Service: 01/19/15699 Status: Signed Statistical Reporting Analyst: Rahul Valles DO (Physician) [facility] Service: Infectious Disease Progress Note Hospital Day: LOS: 16 days Post-Op Day: 10 Days Post-Op SUBJECTIVE Patient Summary: 64-year-old with rectal cancer, status post chemoradiation, status post robotic resection, ileostomy on 01/03. Had an episode of vomiting on 01/11, and also dillan gnosed with partial SBO. It appears that patient was noncompliant with nothing by mouth stat us and may have aspirated. He was brought to the ICU with respiratory failure intubated and ventilated. Started on IV Zosyn plus vancomycin plus metronidazole. On press source. 01/15 Patient remains intubated and ventilated. Remains on low-dose dobutamine and pressor s. Failed spontaneous breathing trial. TPN: Day #5 Low-grade temperature 100.5 Fahrenheit noted this morning. White count remains normal. 01/17 - intubated in the evening for hypoxemic respiratory failure. CC: Abdominal pain, pneumonia Chart reviewed: Intubated last evening. Subjective Not possible, intubated and sedated. ROS Not possible, intubated and sedated. Scheduled Medications ampicillin-sulbactam 3 g Intravenous Q6H digoxin 0.25 mg Intravenous Daily fat emulsion 250 mL Intravenous Daily furosemide 40 mg Intravenous BID heparin (porcine) 5000 unit/0.5mL 5,000 Units Subcutaneous Q8H insulin aspart 0-16 Units Subcutaneous 4 times per day levofloxacin 500 mg Intravenous Q24H mstozwqf-ovjjlsdvpw-bhsmmpsry Ophthalmic 4 times per day nystatin 5 mL Oral 4x Daily pantoprazole 40 mg Intravenous QAM AC Continuous Infusions dexmedetomidine in NS 1 mcg/kg/hr (01/19/15 0147) fentaNYL in NS 5 mcg/mL 100 mcg/hr (01/19/15 0654) norepinephrine in D5W 64 mcg/mL 4 mcg/min (01/17/15 2218) propofol Stopped (01/18/15 1000) TPN ADULT 75 mL/hr at 01/18/152122 TPN ADULT PRN Medications acetaminophen, albuterol, dextrose, dextrose, HYDROmorphone OR HYDROmorphone, lip moist urizer, magnesium sulfate OR magnesium sulfate OR magnesium sulfate, nystatin, nysta tin, [DISCONTINUED] ondansetron OR ondansetron, petrolatum, polyethylene glycol, potassi um chloride OR potassium chloride OR potassium chloride, promethazine, sodium phosph ate IVPB 15 mmol OR sodium phosphate IVPB 30 mmol OBJECTIVE Vital Signs: BP 99/57 mmHg | Pulse 71 | Temp(Src) 99.9 F (37.7 C) (Axillary) | Resp 23 | Ht 1.626 m (5' 4") | Wt 81 kg (178 lb 9.2 oz) | BMI 30.64 kg/m2 | SpO2 98% Temp: [98.8 F (37.1 C)-99.9 F (37.7 C)] 99.9 F (37.7 C) (01/19 0400) BP: (85-152)/(50-98) 99/57 mmHg (01/19 050) Heart Rate: [71-143] 71 (01/19 500) Resp: [7-60] 23 (01/19 500) SpO2: [93 %-100 %] 98 % (01/19 500) FiO2 : [35 %-40 %] 35 % (01/19 024) Exam: Const: Vitals reviewed. Intubated and sedated. Skin: No rashes, no edema Right chest Mediport and right IJ triple-lumen catheter sites unremarkable. ENT: Endotracheal tube is in place. Lungs: CTAB, no rales or wheezes Heart: RRR, no murmur Abd: soft, diffuse tenderness, + bowel sounds Musculoskeletal: No gross deformity or active arthritis DATA CBC: Lab Results Component Value Date WBC 11.53* 01/19/2015 RBC 2.48* 01/19/2015 HGB 8.4* 01/19/2015 HCT 24.0* 01/19/2015 MCV 96.8 01/19/2015 MCH 33.6 01/19/2015 MCHC 34.8 01/19/2015 RDW 44.6 01/19/2015 PLT 144* 01/19/2015 MPV 9.9 01/19/2015 DIFFTYPE MANUAL 01/19/2015 WBC: Lab Results Component Value Date WBC 11.53* 01/19/2015 NEUTABSMAN 9.80* 01/19/2015 NEUTROABS 3.36 01/11/2015 NEUTROMAN 85 01/19/2015 LYMPHOABS 0.69* 01/19/2015 LYMPHOMAN 6 01/19/2015 LYMPHSABS 0.39* 01/11/2015 LYMPHOPCT 8.54 01/11/2015 MONOABSMAN 0.69 01/19/2015 MONOMAN 6 01/19/2015 MONOPCT 13.66 01/11/2015 EOSINOABS 0.12 01/19/2015 EOSINOMAN 1 01/19/2015 EOSABS 0.19 01/11/2015 EOSPCT 4.07 01/11/2015 BASOSABS 0.02 01/11/2015 BASOPCT 0.38 01/11/2015 PLTEST DECREASED 01/19/2015 BANDSPCT 2 01/19/2015 NRBC 1* 01/18/2015 METAABS 0.41* 01/18/2015 METAPCT 3 01/18/2015 MYELOABS 0.27* 01/18/2015 MYELOPCT 2 01/18/2015 CMP: Lab Results Component Value Date NA 137 01/19/2015 K 4.2 01/19/2015 CL 106 01/19/2015 CO2 26 01/19/2015 ANIONGAP 10 01/19/2015 GLUF 128* 01/19/2015 BUN 23 01/19/2015 CREATININE 0.67* 01/19/2015 BCR 35 01/19/2015 CA 7.2* 01/19/2015 PROT 5.2* 01/19/2015 ALB 1.1* 01/19/2015 GLOB 2.7 01/12/2015 BILITOT 3.0* 01/19/2015 ALP 90 01/19/2015 AST 26 01/19/2015 ALT 113* 01/19/2015 EGFR >60 01/19/2015 Repeat bronchoalveolar lavage cultures collected on January 17 are negative so far. Gram st ain shows gram-positive cocci, although similar results noted on previous sputum culture [facility] only grew Escherichia coli. Medical imaging: This morning's chest x-ray was viewed in PACS and shows slight improvement in aeration throughout the right lung, no significant change overall. Endotracheal tube rem ains in place. Radiology report pending. PROBLEM LIST Principal Problem: Aspiration pneumonia (HCC) Active Problems: Rectal cancer (HCC) Persistent atrial fibrillation (HCC) Hyperlipidemia Abdominal pain Anemia Atrial fibrillation with RVR (HCC) Severe sepsis (HCC) Acute respiratory failure with hypoxia (HCC) Acute kidney injury (HCC) Acute pancreatitis ASSESSMENT & PLAN Severe sepsis/shock Secondary to severe aspiration pneumonia Reintubated yesterday. He has required a small amount of levo fed to maintain blood pressur e after being started on fentanyl and propofol, doubt septic shock at this time, but will wa tch closely. Multifactorial respiratory decompensation noted overnight, likely related to ongoing severe pain with need for pain management, pancreatitis, possible ongoing aspiration. He remains a febrile. We will continue current antibiotics with close observation. Continue Unasyn plus levofloxacin - day #9 today. Question of cholecystitis HIDA scan results noted. Bacteremia Gram-negative rods -now identified as Escherichia coli -noted only in the anaerobic bottle of one set from cultures on 01/11. Possible bacteremia from aspiration pneumonia sputum has also shown Escherichia coli. We will continue antibiotics for a total of 14 days following first negative blood culture (January 11). Rectal cancer Status post surgery on 01/03. Code Status: Full Code RAHUL VALLES DO 01/19/2015 onversion Transaction , Provider Unknown - 01/19/2015 6:48 AM PDT Progress Notes by Basilia Ortiz RPH at 01/19/1548 Author: Basilia Ortiz RPH Service: (none) Author Type: Pharmacist Filed: 01/19/15647 Date of Service: 01/19/15647 Status: Signed Statistical Reporting Analyst: Basilia Ortiz RPH (Pharmacist) TPN notes day 9: All electrolytes are within normal limits. No blood sugar values above 150, however some s liding scale insulin coverage was required. Will increase insulin in dawna's tpn by anoth er 5 units. No other changes at this time. uStalin becerril MD - 01/18/2015 12:53 PM PDTFormatting of this note might be differ ent from the original. Progress Notes by Stalin Finney MD at 01/18/15 4125 Author: Stalin Finney MD Service: Speech [facility] Hearing [facility] Director Author Type: Physician Filed: 01/18/15 6423 Date of Service: 01/18/15 4219 Status: Signed Statistical Reporting Analyst: Stalin Finney MD (Physician) [facility] Service: Speech And Hearing Clinic Director Progress Note Jose Eaton 64 y.o. Hospital Day: LOS: 15 days Post-Op Day: 14 Days Post-Op Consulting Physicians Treatment Team: Consulting Physician: Amy Simons MD Consulting Physician: Mario Crawford MD Admitting Provider: Saleem Shore MD SUBJECTIVE Patient Summary: Pt is a 64 y/o Burkinan speaking M with past medical history significant for hyperlipidemia, rectal cancer, on chemotherapy with 5-FU . 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 . While on the floor the pt had some episodes of n/v, tachycardia, temp spikes, episodes of afib, was diagnosed with SBO. Pt complained of th irst and was found drinking water out of the sink despite being educated regarding his NPO s tatus, it is thought that he aspirated. 01/11/15 a RAT was called as the pt was hypotensive & tachycardic, he was given 5L crystall oids and his BP improved but he became tachypneic. Stat blood gas showed metabolic acidosis and lactic acidosis. Pt showed signs of respiratory fatigue with increasing O2 requirement a nd was subsequently intubated, given 2 pushes of bicarb. Post-intubation CXR revealed R-side d pneumonia, he was started on IV Zosyn plus vancomyin. ICU Timeline: 01/12: Pt transferred to ICU. RIJ, arterial line placed. 01/13: Pt hypotensive requiring pressor. Echo showed reduced EF. Started on dobutamine w ith improvement of BP. Developed Afib with RVR. Started on digoxin, converted to sinus rhyth m. 01/15: Off pressors. Pt went back into Afib. Failed SBT. Diuresed with Lasix. Continued on dobutamine. 01/16: Extubated, on 2L O2. Started on Precedex d/t agitation & tachypnea. Complaining of RUQ abd pain & splinting while breathing. Acute pancreatitis. 01/18: reintubated and bronch w LLL mucus plug Events Overnight: Required reintubation overnight for respiratory distress. Bronchoscopy showed LLL pneum onia. SCHEDULED MEDICATIONS ampicillin-sulbactam 3 g Intravenous Q6H digoxin 0.125 mg Intravenous Daily fat emulsion 250 mL Intravenous Daily heparin (porcine) 5000 unit/0.5mL 5,000 Units Subcutaneous Q8H insulin aspart 0-16 Units Subcutaneous 4 times per day levofloxacin 500 mg Intravenous Q24H inuhcmls-rkeiciuncf-lcvoymeja Ophthalmic 4 times per day nystatin 5 mL Oral 4x Daily pantoprazole 40 mg Intravenous QAM AC CONTINUOUS INFUSIONS dexmedetomidine in NS fentaNYL in NS 5 mcg/mL 75 mcg/hr (01/18/15 1044) norepinephrine in D5W 64 mcg/mL 4 mcg/min (01/17/158) propofol 30 mcg/kg/min (01/18/15 0200) TPN ADULT 75 mL/hr at 01/18/15 0005 TPN ADULT OBJECTIVE VITAL SIGNS Temp: [98.1 F (36.7 C)-99.6 F (37.6 C)] 99.6 F (37.6 C) Heart Rate: [73-90] 81 Resp: [7-47] 22 BP: (92-129)/(52-73) 111/57 mmHg FiO2 : [35 %-60 %] 35 % Intake/Output Summary (Last 24 hours) at 01/18/15 1253 Last data filed at 01/18/15 0800 Gross per 24 hour Intake 3029.9 ml Output 1900 ml Net 1129.9 ml EXAM GEN: awake, follows commands, in pain NEURO: PERRLA, no facial asymmetry, moves all 4 extremities HEENT: sclerae clear, nonicteric, oral mmm, pink, no exudates NECK: supple, trachea midline, intubated HEART: tahy, irreg, no murmur, rub or gallop LUNGS: scattered crackles bilat, dec BS at bases, no wheezing or rhonchi ABD: soft, no distended, colostomy w dark green stool, tender to palpation EXTR: no edema, clubbing or cyanosis SKIN: warm, dry, edematous most pronounced in the scrotal region, skin surrounding abdomina l wound is c/d/i and non erythematous; no e/o skin breakdown over the occiput, scapulae, elb ows, sacrum or heels LINES/TUBES: Port A Cath R chest 09/06/14, RIJ 01/12 DATA Recent Labs Lab 01/18/15 0509 01/17/15 0302 01/16/15 1350 01/16/15 0637 WBC 13.63* 10.87 10.81 9.40 RBC 2.79* 2.78* 2.90* 2.87* HGB 9.0* 9.2* 9.8* 9.4* HCT 27.5* 27.1* 28.3* 27.9* MCV 98.3 97.5 97.7 97.5 MCH 32.2 33.1 33.6 32.7 MCHC 32.7 33.9 34.4 33.5 RDW 45.5 42.9 44.2 43.8 PLT 132* 110* 127* 114* MPV 9.9 10.6 9.7 9.4 BANDSABS -- 0.33* 0.22* 1.97* MORPH RBC AND PLT MORPHOLOGY APPEAR NORMAL NORMAL RBC MORPH RBC AND PLT MORPHOLOGY APPEAR N ORMAL 1+ Recent Labs Lab 01/18/15 0509 01/17/15 0302 01/16/15 1350 01/16/15 1155 01/16/15 0637 01/16/15 0230 01/12/15 0244 NA 140 139 -- -- 141 142 < > 141 K 4.4 4.0 -- 3.8 4.0 3.7 < > 3.8 CL 108 105 -- -- 105 103 < > 113* CO2 27 30 -- -- 32 31 < > 19* ANIONGAP 10 8 -- -- 9 12 < > 12 GLUF 129* 104* -- -- 120* 99 < > 92 BUN 25 31* -- -- 24 25 < > 17 CREATININE 0.61* 0.64* -- -- 0.71 0.78 < > 1.0 BCR 41 48 -- -- 34 32 < > 17 CA 7.4* 7.8* -- -- 7.5* 8.0* < > 6.5* ALB 1.2* 1.3* 1.4* -- -- 2.2* -- 1.8* GLOB -- -- -- -- -- -- -- 2.7 AG -- -- -- -- -- -- -- 0.7* PROT 5.2* 5.0* 5.2* -- -- 5.1* -- 4.6* BILITOT 3.0* 3.5* 5.2* -- -- 5.3* -- 1.4 ALT 197* 340* 442* -- -- 399* -- 16 AST 55* 173* 289* -- -- 307* -- 19 EGFR >60 >60 -- -- >60 >60 < > >60 PHOS 3.6 3.9 -- -- -- 3.6 < > 2.4 MG 2.6* 2.3 -- -- -- 2.1 < > 1.3* < > = values in this interval not displayed. No results for input(s): INR in the last 168 hours. Amylase: Lab Results Component Value Date AMYLASE 133* 01/17/2015 Lipase: Lab Results Component Value Date LIPASE 341 01/18/2015 IMAGING CXR 01/17/15 1. Dense bronchopneumonia persists throughout the right lung. 2. Small bilateral pleural effusions noted. 3. Endotracheal tube, nasogastric tube and right-sided central line are in satisfactory pos ition. 4. No evidence of pneumothorax post bronchoscopy. Ultrasound Abdomen Limited 01/16/2015 1. Contracted gallbladder with the gallbladder wall thickening, sludge, and p ositive sonographic Brar sign. Acute cholecystitis is not excluded. 2. Small 4 mm polyp w ithin the gallbladder. Ct Chest Abdomen Pelvis With Iv Contrast 01/12/2015 1. Extensive right lung pneumonia with small parapneumonic effusion. 2. Mild cardiomegaly and severe coronary to ossifications. 3. Generalized anasarca, commonly seen i n septic patient's. There are several bubbles of gas in the subcutaneous tissues of uncertai n etiology but possibly iatrogenic. Correlate to exclude gas-forming soft tissue infection. 4. Fluid-filled proximal small bowel with relatively decompressed distal small bowel proxima l to the ileostomy. Favor normal variant/ileus over bowel obstruction. Gastroenteritis /radi ation enteritis could have a similar picture. RADIA Electronically signed by Nba cruz MD on Jan 12 2015 6:44AM Referring Provider Line: [phone] ID: [id number] Echo Cardiac Adult Complete 01/12/2015 1. Overall left ventricular systolic function is moderately impaired with, an EF between 35 - 40 %. 2. Pseudonormal LV diastolic filling pattern, consistent with elevated LA pressure and moderate dysfunction (Grade II). 3. The right ventricle is normal in size. 4. The right ventricular systolic function is impaired. 5. Moderate mitral regurgitation is present. 6. Tdmx-rb-xzvzmczv tricuspid regurgitation present. 7. There is mild pulmonary hyp ertension. PROBLEM LIST Principal Problem: Aspiration pneumonia (HCC) Active Problems: Rectal cancer (HCC) Persistent atrial fibrillation (HCC) Hyperlipidemia Abdominal pain Anemia Atrial fibrillation with RVR (HCC) Severe sepsis (HCC) Acute respiratory failure with hypoxia (HCC) Acute kidney injury (HCC) Acute pancreatitis ASSESSMENT & PLAN NEURO: Mental status: Awake, responds to questions. In pain. Start precedex, inc fentanyl. Pain control: Inc fentanyl gtt. CV: Episodes of Afib with RVR, Hypotension: on digoxin 0.125 daily. HR 90-120. Will check dig level. Still on levophed. Acute dilated cardiomyopathy, decreased LV systolic function: Dr. Crawford consulted, follow ing, recommends starting beta marilyn and isaac inhibitor when BP normalizes. CAD: Dr. Crawford consulted, following. F/up in outpatient setting. Hypotension: likely sepsis; continue levophed. PULM: RLL aspiration pneumonia: Currently on unasyn and levaquin per ID. S/p bronch last nig ht, will follow up BAL results. Acute respiratory failure with hypoxia: reintubated overnight, found LLL mucus plug. W radha sedation again today then place on spontaneous breathing trial. GI/NUTRITION: Acute pancreatitis: Bowel rest, fluids, pain management, lipase down to 341. Elevated AST, ALT, direct & total bili: ischemic from hypotension versus hepatobiliary p athology. Improving as well. Rectal cancer: S/p coloanal pull-through for low rectal cancer RENAL/LYTES: NICOL: Resolved 01/12 Electrolytes: mild hypocalcemia in setting of acute pancreatitis, continue monitoring ca lcium. ID: Aspiration pneumonia: on unasyn/levaquin pre ID. E. coli bacteremia, sepsis: Currently on Unasyn plus levofloxacin. Most recent serial bl ood draws negative. HEME: Anemia: etiology likely dilutional, no evidence of active bleeding, continue monitoring ENDO: BG: On SSI, goal of BG below 180 MUSC/SKIN: Colostomy, surgical wounds: Healing well, continue with wound care. PT/OT: will attempt to dangle on bed. PROPHYLAXIS: Stress ulcer prophylaxis: Protonix DVT prophylaxis: heparin, SCD's VAP bundle: HOB >30, chlorhexidine Disposition: keep in ICU Code Status: Full Code Stalin Finney MD 01/18/2015 ilabo Saleem myrick MD - 01/18/2015 12:13 PM PDT Progress Notes by Saleem Shore MD at 01/18/15 1213 Author: Saleem Shore MD Service: General Surgery Author Type: Physician Filed: 01/18/151214 Date of Service: 01/18/151212 Status: Signed Statistical Reporting Analyst: Saleem Shore MD (Physician) [facility] Service: Colon & Rectal Surgery Progress Note Hospital Day: LOS: 15 days Post-Op Day: 14 Day Post-Op SUBJECTIVE Patient Summary: S/P Coloanal pull-through for low rectal cancer. Events Overnight: elevated LFT and lipase. Denies abdominal pain, but has tachypnea. N o nausea or vomiting. reintubated for resp distress last night, he is more comfortable this morning. Scheduled Medications ampicillin-sulbactam 3 g Intravenous Q6H digoxin 0.125 mg Intravenous Daily fat emulsion 250 mL Intravenous Daily heparin (porcine) 5000 unit/0.5mL 5,000 Units Subcutaneous Q8H insulin aspart 0-16 Units Subcutaneous 4 times per day levofloxacin 500 mg Intravenous Q24H wlitnlbi-ozppubwoft-lljlpbmke Ophthalmic 4 times per day nystatin 5 mL Oral 4x Daily pantoprazole 40 mg Intravenous QAM AC Continuous Infusions dexmedetomidine in NS fentaNYL in NS 5 mcg/mL 75 mcg/hr (01/18/15 1044) norepinephrine in D5W 64 mcg/mL 4 mcg/min (01/17/15 2218) propofol 30 mcg/kg/min (01/18/15 0200) TPN ADULT 75 mL/hr at 01/18/15 0005 TPN ADULT PRN Medications acetaminophen, albuterol, dextrose, dextrose, HYDROmorphone OR HYDROmorphone, lip moist urizer, magnesium sulfate OR magnesium sulfate OR magnesium sulfate, nystatin, nysta tin, [DISCONTINUED] ondansetron OR ondansetron, petrolatum, polyethylene glycol, potassi um chloride OR potassium chloride OR potassium chloride, promethazine, sodium phosph ate IVPB 15 mmol OR sodium phosphate IVPB 30 mmol OBJECTIVE Vital Signs: BP 111/57 mmHg | Pulse 81 | Temp(Src) 99.6 F (37.6 C) (Oral) | Resp 22 | Ht 1.626 m (5' 4") | Wt 81 kg (178 lb 9.2 oz) | BMI 30.64 kg/m2 | SpO2 100% Temp: [98.1 F (36.7 C)-99.6 F (37.6 C)] 99.6 F (37.6 C) (01/18 0800) BP: (92-129)/(52-73) 111/57 mmHg (01/18 1030) Heart Rate: [73-90] 81 (01/18 103) Resp: [7-47] 22 (01/18 103) SpO2: [93 %-100 %] 100 % (01/18 103) Weight: [81 kg (178 lb 9.2 oz)] 81 kg (178 lb 9.2 oz) (01/17 1535) FiO2 : [35 %-60 %] 35 % (01/18 103) Physical Exam Constitutional: He appears well-developed and well-nourished. He appears distressed. HENT: Head: Atraumatic. Eyes: Pupils are equal, round, and reactive to light. Neck: Neck supple. Abdominal: Soft. He exhibits distension. There is no tenderness. Genitourinary: Neurological: He is alert. Follows command Skin: Skin is warm. He is not diaphoretic. Vitals reviewed. DATA CBC: Lab Results Component Value Date WBC 13.63* 01/18/2015 RBC 2.79* 01/18/2015 HGB 9.0* 01/18/2015 HCT 27.5* 01/18/2015 MCV 98.3 01/18/2015 MCH 32.2 01/18/2015 MCHC 32.7 01/18/2015 RDW 45.5 01/18/2015 PLT 132* 01/18/2015 MPV 9.9 01/18/2015 DIFFTYPE MANUAL 01/18/2015 BMP: Lab Results Component Value Date NA 140 01/18/2015 K 4.4 01/18/2015 CL 108 01/18/2015 CO2 27 01/18/2015 ANIONGAP 10 01/18/2015 GLUF 129* 01/18/2015 BUN 25 01/18/2015 CREATININE 0.61* 01/18/2015 BCR 41 01/18/2015 CA 7.4* 01/18/2015 EGFR >60 01/18/2015 Magnesium: Lab Results Component Value Date MG 2.6* 01/18/2015 Phosphorus: Lab Results Component Value Date PHOS 3.6 01/18/2015 PROBLEM LIST Principal Problem: Aspiration pneumonia (HCC) Active Problems: Rectal cancer (HCC) Persistent atrial fibrillation (HCC) Hyperlipidemia Abdominal pain Anemia Atrial fibrillation with RVR (HCC) Severe sepsis (HCC) Acute respiratory failure with hypoxia (HCC) Acute kidney injury (HCC) Acute pancreatitis ASSESSMENT & PLAN S/P Coloanal pull-through for low rectal cancer POD#14. Developed likely aspiration pneumo faye and sepsis. Afib now back in sinus again. He started declaring pancreatitis and liver dysfunction (likely due to hypotension). HIDA scan reviewed. Suggestive of hepatocellular disease. ileostomy is functional - reintubated for resp distress last night, he is more comfortable this morning. - if NGT output is low then we can try trickle feeds. Disposition: Code Status: Full Code Saleem Shore MD 01/18/2015 onversion Transac tion, Provider Unknown - 01/18/2015 8:22 AM PDTFormatting of this note might be different f rom the original. Therapy Progress Note by Nba Strong PT at 01/18/15821 Author: Nba Strong PT Service: Physical Medicine and Rehab Author Type: Physical Therapist Filed: 01/18/15 9045 Date of Service: 01/18/15821 Status: Signed Statistical Reporting Analyst: Nba Strong PT (Physical Therapist) 01/18/15821 PT Last Visit PT Received On 01/18/15 (Per chart review, pt. was extubated but reintubated last..) Requires PT Follow Up On hold (night. Will hold PT and await new orders when stable) onver alex Transaction, Provider Unknown - 01/18/2015 7:06 AM PDT Progress Notes by Basilia Ortiz RPH at 01/18/15705 Author: Basilia Ortiz RPH Service: (none) Author Type: Pharmacist Filed: 01/18/15705 Date of Service: 01/18/15705 Status: Signed Statistical Reporting Analyst: Basilia Ortiz RPH (Pharmacist) TPN day 8: TPN standard formula at 75 mL/hr starting at 01/17 2100 Diet general Dysphagia consistencies: Dysphagia Pureed, Thin, Other (See Comments); House diet:: Yes: General starting at 01/[address] Shore note dated 01/17 @ 1941 stated "keep NPO for now". No po intake charted. Magnesium high at 2.6 mEq/L - will decrease magnesium in tonight's TPN All other electrolytes within normal limits. Chloride at upper end of normal limits, so wi ll decrease NaCl just slightly. Blood sugars 151, 129. A total of 6 units of insulin were charted on MAY overnight. Will increase insulin in TPN by 5 units per 24 hour bag. Rahul Larios DO - 01/18/2015 7:06 AM PDTFormatting of this note might be different from the randolph adebayo. Progress Notes by Rahul Valles DO at 01/18/15705 Author: Rahul Valles DO Service: (none) Author Type: Physician Filed: 01/18/15716 Date of Service: 01/18/15705 Status: Signed Statistical Reporting Analyst: Rahul Valles DO (Physician) [facility] Service: Infectious Disease Progress Note Hospital Day: LOS: 15 days Post-Op Day: 10 Days Post-Op SUBJECTIVE Patient Summary: 64-year-old with rectal cancer, status post chemoradiation, status post robotic resection, ileostomy on 01/03. Had an episode of vomiting on 01/11, and also dillan gnosed with partial SBO. It appears that patient was noncompliant with nothing by mouth stat us and may have aspirated. He was brought to the ICU with respiratory failure intubated and ventilated. Started on IV Zosyn plus vancomycin plus metronidazole. On press source. 01/15 Patient remains intubated and ventilated. Remains on low-dose dobutamine and pressor s. Failed spontaneous breathing trial. TPN: Day #5 Low-grade temperature 100.5 Fahrenheit noted this morning. White count remains normal. 01/17 - intubated in the evening for hypoxemic respiratory failure. CC: Abdominal pain, pneumonia Chart reviewed: Intubated last evening. Subjective Not possible, intubated and sedated. ROS Not possible, intubated and sedated. Scheduled Medications ampicillin-sulbactam 3 g Intravenous Q6H digoxin 0.125 mg Intravenous Daily fat emulsion 250 mL Intravenous Daily heparin (porcine) 5000 unit/0.5mL 5,000 Units Subcutaneous Q8H insulin aspart 0-16 Units Subcutaneous 4 times per day levofloxacin 500 mg Intravenous Q24H lidocaine buffered 1% 5 mL Intradermal STAT - Now ucuytexw-robnjcjbkj-ycbqwoxdf Ophthalmic 4 times per day nystatin 5 mL Oral 4x Daily pantoprazole 40 mg Intravenous QAM AC Continuous Infusions dexmedetomidine in NS 0.5 mcg/kg/hr (01/17/152036) fentaNYL in NS 5 mcg/mL 75 mcg/hr (01/17/152217) norepinephrine in D5W 64 mcg/mL 4 mcg/min (01/17/152217) propofol propofol 30 mcg/kg/min (01/18/150) TPN ADULT 75 mL/hr at 01/18/15 0005 TPN ADULT PRN Medications acetaminophen, albuterol, dextrose, dextrose, HYDROmorphone OR HYDROmorphone, lip moist urizer, magnesium sulfate OR magnesium sulfate OR magnesium sulfate, nystatin, nysta tin, [DISCONTINUED] ondansetron OR ondansetron, petrolatum, polyethylene glycol, potassi um chloride OR potassium chloride OR potassium chloride, promethazine, sodium phosph ate IVPB 15 mmol OR sodium phosphate IVPB 30 mmol OBJECTIVE Vital Signs: BP 109/64 mmHg | Pulse 75 | Temp(Src) 98.1 F (36.7 C) (Axillary) | Resp 24 | Ht 1.626 m (5' 4") | Wt 81 kg (178 lb 9.2 oz) | BMI 30.64 kg/m2 | SpO2 98% Temp: [98.1 F (36.7 C)-99.5 F (37.5 C)] 98.1 F (36.7 C) (01/18 0000) BP: (92-129)/(50-73) 109/64 mmHg (01/18 300) Heart Rate: [73-90] 75 (01/18 030) Resp: [20-47] 24 (01/18 300) SpO2: [92 %-98 %] 98 % (01/18 233) Weight: [81 kg (178 lb 9.2 oz)] 81 kg (178 lb 9.2 oz) (01/17 1535) FiO2 : [50 %-60 %] 50 % (01/18 233) Exam: Const: Vitals reviewed. Intubated and sedated. Skin: No rashes, no edema Right chest Mediport and right IJ triple-lumen catheter sites unremarkable. ENT: Endotracheal tube is in place. Lungs: CTAB, no rales or wheezes Heart: RRR, no murmur Abd: soft, diffuse tenderness, + bowel sounds Musculoskeletal: No gross deformity or active arthritis DATA CBC: Lab Results Component Value Date WBC 13.63* 01/18/2015 RBC 2.79* 01/18/2015 HGB 9.0* 01/18/2015 HCT 27.5* 01/18/2015 MCV 98.3 01/18/2015 MCH 32.2 01/18/2015 MCHC 32.7 01/18/2015 RDW 45.5 01/18/2015 PLT 132* 01/18/2015 MPV 9.9 01/18/2015 DIFFTYPE MANUAL 01/18/2015 WBC: Lab Results Component Value Date WBC 13.63* 01/18/2015 NEUTABSMAN 11.85* 01/18/2015 NEUTROABS 3.36 01/11/2015 NEUTROMAN 87 01/18/2015 LYMPHOABS 0.55* 01/18/2015 LYMPHOMAN 4 01/18/2015 LYMPHSABS 0.39* 01/11/2015 LYMPHOPCT 8.54 01/11/2015 MONOABSMAN 0.41 01/18/2015 MONOMAN 3 01/18/2015 MONOPCT 13.66 01/11/2015 EOSINOABS 0.14 01/18/2015 EOSINOMAN 1 01/18/2015 EOSABS 0.19 01/11/2015 EOSPCT 4.07 01/11/2015 BASOSABS 0.02 01/11/2015 BASOPCT 0.38 01/11/2015 PLTEST DECREASED 01/16/2015 BANDSPCT 3 01/17/2015 NRBC 1* 01/18/2015 METAABS 0.41* 01/18/2015 METAPCT 3 01/18/2015 MYELOABS 0.27* 01/18/2015 MYELOPCT 2 01/18/2015 CMP: Lab Results Component Value Date NA 140 01/18/2015 K 4.4 01/18/2015 CL 108 01/18/2015 CO2 27 01/18/2015 ANIONGAP 10 01/18/2015 GLUF 129* 01/18/2015 BUN 25 01/18/2015 CREATININE 0.61* 01/18/2015 BCR 41 01/18/2015 CA 7.4* 01/18/2015 PROT 5.2* 01/18/2015 ALB 1.2* 01/18/2015 GLOB 2.7 01/12/2015 BILITOT 3.0* 01/18/2015 ALP 111 01/18/2015 AST 55* 01/18/2015 ALT 197* 01/18/2015 EGFR >60 01/18/2015 Repeat bronchoalveolar lavage cultures collected on January 17 are pending at this time. Medical imaging: Chest x-ray performed last evening shows endotracheal tube in place, sligh t improvement in aeration throughout the right lung, no other significant changes. Radiology report as follows: IMPRESSION: 1. Dense bronchopneumonia persists throughout the right lung. 2. Small bilateral pleural effusions noted. 3. Endotracheal tube, nasogastric tube and right-sided central line are in satisfactory pos ition. 4. No evidence of pneumothorax post bronchoscopy. scan as follows: IMPRESSION: 1. Significant cholestasis with persistent hepatic uptake seen 4 hours post injection. 2. Gallbladder not initially seen at 60 minutes but does fill 4 hours post Choletec injecti on suggesting that the cystic duct is patent. LEM LIST Principal Problem: Aspiration pneumonia (HCC) Active Problems: Rectal cancer (HCC) Persistent atrial fibrillation (HCC) Hyperlipidemia Abdominal pain Anemia Atrial fibrillation with RVR (HCC) Severe sepsis (HCC) Acute respiratory failure with hypoxia (HCC) Acute kidney injury (HCC) Acute pancreatitis ASSESSMENT & PLAN Severe sepsis/shock Secondary to severe aspiration pneumonia Reintubated yesterday. He has required a small amount of levo fed to maintain blood pressur e after being started on fentanyl and propofol, doubt septic shock at this time, but will wa tch closely. Multifactorial respiratory decompensation noted overnight, likely related to ongoing severe pain with need for pain management, pancreatitis, possible ongoing aspiration. He remains a febrile. We will continue current antibiotics with close observation. Continue Unasyn plus levofloxacin - day #8 today. Question of cholecystitis HIDA scan results noted, deferred to general surgery. Bacteremia Gram-negative rods -now identified as Escherichia coli -noted only in the anaerobic bottle of one set from cultures on 01/11. Possible bacteremia from aspiration pneumonia sputum has also shown Escherichia coli. We will continue antibiotics for a total of 14 days following first negative blood culture (January 11). Rectal cancer Status post surgery on 01/03. Code Status: Full Code RAHUL VALLES DO 01/18/2015 Saleem Rodriguez MD - 01/17/2015 7:41 PM PDT Progress Notes by Saleem Shore MD at 01/17/151940 Author: Saleem Shore MD Service: General Surgery Author Type: Physician Filed: 01/17/151946 Date of Service: 01/17/151940 Status: Signed Statistical Reporting Analyst: Saleem Shore MD (Physician) [facility] Service: Colon & Rectal Surgery Progress Note Hospital Day: LOS: 14 days Post-Op Day: 13 Day Post-Op SUBJECTIVE Patient Summary: S/P Coloanal pull-through for low rectal cancer. Events Overnight: elevated LFT and lipase. Denies abdominal pain, but has tachypnea. N o nausea or vomiting. Scheduled Medications ampicillin-sulbactam 3 g Intravenous Q6H digoxin 0.125 mg Intravenous Daily fat emulsion 250 mL Intravenous Daily heparin (porcine) 5000 unit/0.5mL 5,000 Units Subcutaneous Q8H insulin aspart 0-16 Units Subcutaneous 4 times per day levofloxacin 500 mg Intravenous Q24H nystatin 5 mL Oral 4x Daily pantoprazole 40 mg Intravenous QAM AC Continuous Infusions dexmedetomidine in NS 0.7 mcg/kg/hr (01/17/15 1334) TPN ADULT Stopped (01/17/15 0730) TPN ADULT PRN Medications acetaminophen, albuterol, dextrose, dextrose, HYDROmorphone OR HYDROmorphone, lip moist urizer, magnesium sulfate OR magnesium sulfate OR magnesium sulfate, nystatin, nysta tin, [DISCONTINUED] ondansetron OR ondansetron, petrolatum, polyethylene glycol, potassi um chloride OR potassium chloride OR potassium chloride, promethazine, sodium phosph ate IVPB 15 mmol OR sodium phosphate IVPB 30 mmol OBJECTIVE Vital Signs: BP 101/59 mmHg | Pulse 78 | Temp(Src) 99.5 F (37.5 C) (Oral) | Resp 40 | Ht 1.626 m (5' 4") | Wt 81 kg (178 lb 9.2 oz) | BMI 30.64 kg/m2 | SpO2 95% Temp: [97.6 F (36.4 C)-99.5 F (37.5 C)] 99.5 F (37.5 C) (01/17 1600) BP: (87-112)/(50-62) 101/59 mmHg (01/17 1800) Heart Rate: [67-82] 78 (01/17 1800) Resp: [28-47] 40 (01/17 1800) SpO2: [90 %-98 %] 95 % (01/17 1800) Weight: [81 kg (178 lb 9.2 oz)] 81 kg (178 lb 9.2 oz) (01/17 1535) Physical Exam Constitutional: He appears well-developed and well-nourished. He appears distressed. HENT: Head: Atraumatic. Eyes: Pupils are equal, round, and reactive to light. Neck: Neck supple. Abdominal: Soft. He exhibits distension. There is no tenderness. Genitourinary: Neurological: He is alert. Follows command Skin: Skin is warm. He is not diaphoretic. Vitals reviewed. DATA CBC: Lab Results Component Value Date WBC 10.87 01/17/2015 RBC 2.78* 01/17/2015 HGB 9.2* 01/17/2015 HCT 27.1* 01/17/2015 MCV 97.5 01/17/2015 MCH 33.1 01/17/2015 MCHC 33.9 01/17/2015 RDW 42.9 01/17/2015 PLT 110* 01/17/2015 MPV 10.6 01/17/2015 DIFFTYPE MANUAL 01/17/2015 BMP: Lab Results Component Value Date NA 139 01/17/2015 K 4.0 01/17/2015 CL 105 01/17/2015 CO2 30 01/17/2015 ANIONGAP 8 01/17/2015 GLUF 104* 01/17/2015 BUN 31* 01/17/2015 CREATININE 0.64* 01/17/2015 BCR 48 01/17/2015 CA 7.8* 01/17/2015 EGFR >60 01/17/2015 Magnesium: Lab Results Component Value Date MG 2.3 01/17/2015 Phosphorus: Lab Results Component Value Date PHOS 3.9 01/17/2015 PROBLEM LIST Principal Problem: Aspiration pneumonia (HCC) Active Problems: Rectal cancer (HCC) Persistent atrial fibrillation (HCC) Hyperlipidemia Abdominal pain Anemia Atrial fibrillation with RVR (HCC) Severe sepsis (HCC) Acute respiratory failure with hypoxia (HCC) Acute kidney injury (HCC) Acute pancreatitis ASSESSMENT & PLAN S/P Coloanal pull-through for low rectal cancer POD#13. Developed likely aspiration pneumo faye and sepsis. Afib now back in sinus again. He started declaring pancreatitis and liver dysfunction (likely due to hypotension). HIDA scan reviewed. Suggestive of hepatocellular disease. His ileostomy output slowed down a lot in line with the pancreatitis. - Continue supportive care. - AXR and NGT if stomach is distended. - keep NPO for now. Disposition: Code Status: Full Code Saleem Shore MD 01/17/2015 llsharmaine, ANGEL Trore P - 01/17/2015 6:00 PM PDT Progress Notes by Jcarlos Lawson RN at 01/17/15 1800 Author: Jcarlos Lawson RN Service: (none) Author Type: Registered Nurse Filed: 01/17/15 5835 Date of Service: 01/17/15 1800 Status: Signed Statistical Reporting Analyst: Jcarlos Lawson RN (Registered Nurse) Roro david director of therapy services assisted patient with reposition onversion Transacti on, Provider Unknown - 01/17/2015 5:54 PM PDTFormatting of this note might be different fro m the original. Progress Notes by Dwight Godoy at 01/17/151753 Author: Dwight Godoy Service: (none) Author Type: Filed: 01/17/151753 Date of Service: 01/17/151753 Status: Signed Statistical Reporting Analyst: Dwight Godoy () Attempted visit. Pt intubated and sleeping. Chaplain Sancho onver alex Transaction, Provider Unknown - 01/17/2015 3:54 PM PDT Progress Notes by Asya Chauhan RD at 01/17/151553 Author: Asya Chauhan RD Service: (none) Author Type: Registered Dietitian Filed: 01/17/151554 Date of Service: 01/17/151553 Status: Signed Statistical Reporting Analyst: Asya Chauhan RD (Registered Dietitian) 01/17/15 3942 Subjective Timepoint Follow up Pt c/o Pt now with acute pancreatitis, waiting on results of HIDA scan to determine if pt n eeds bowel rest or can begin eating. Fluid / Beverage Intake Oral Fluids Amount NPO Food Intake Amount of Food NPO Type of Food / Meals Pt has pending diet order of Dysphagia, pureed, house 2 items per tray . Enteral Nutrition Intake Rate/Solution TF currently not running. Parenteral Nutrition Intake Access PICC Rate/Solution TPN (D18, 6% AA) at 75 ml/hr plus 20% lipids 250 ml daily. Propofol no longe r running. Calories per day 2031 (28 kcal/kg admit wt) Grams of Protein per day 108 (1.5 g/kg admit wt) Total Volume per day 0 mL Anthropometrics Weight 81 kg (178 lb 9.2 oz) Weight Change 100 Weight change Pt's wt is up 8.2 kg from admit. Per I/O's, he is fluid positive 5.7 L. Biochemical data, medical tests, and procedures reviewed Biochemical data, medical tests, and procedures reviewed BG 104-125, BUN 31 (H), Cr 0.64 (L ); LFT's elevated, lipase 1069 (H), amylase 133 (H) - per MD, pt with acute pancreatitis, po ssible ischemic hepatitis. Will continue to monitor. Recommendations Recommended parenteral nutritional needs for pharmacy Continue TPN (D18, 6% AA) at 75 ml/hr plus 20% lipids 250 ml daily provides 2032 kcal (28 kcal/kg), 108 g pro (1.5 g/kg), and 205 0 ml total vol. Recommended energy needs When indicated, begin Pureed, house diet 2 items/tray. Once pt is taking po intake, will decrease TPN accordingly. Nutritional Risk Nutritional risk High Follow up date 01/20/15 Elisa Allen MS CCC-MAILROOM SUPERVISOR - 01/17/2015 12:15 PM PDTFormatting of this note might be different fr om the original. Therapy Progress Note by Elisa Lawson MS CCC-MAILROOM SUPERVISOR at 01/17/15 1215 Author: Elisa Lawson MS CCC-MAILROOM SUPERVISOR Service: (none) Author Type: Speech Therapist Filed: 01/17/15 0677 Date of Service: 01/17/151214 Status: Signed Statistical Reporting Analyst: Elisa Lawson MS CCC-MAILROOM SUPERVISOR (Speech Therapist) 01/17/15 1215 Swallowing Assessment Eval Swallowing Evaluation Yes Initial Swallow Assessment Respiratory Status O2 mask History of Intubation Yes Behavior/Cognition Alert;Cooperative Dentition Some missing teeth Vision Functional for self-feeding Patient Positioning Upright in bed Baseline Vocal Quality Hoarse Oral Motor Exam Labial ROM (overall function of oral structure appears intact) Consistencies Consistencies Assessed Yes Ice Chips Presentation Spoon (x3) Oral Phase Prolonged mastication Pharyngeal Phase Delayed swallow initiation;Decreased laryngeal elevation upon palpation;No overt signs or symptoms of aspirations Thin Presentation Straw;Self Fed;Cup (1 oz by cup and 3 oz by straw) Oral Phase Thin Increased hold time Pharyngeal Phase No overt signs or symptoms of aspiration;Delayed swallow initiated;Decreas ed laryngeal elevation upon palpation Puree Presentation Spoon (2 oz pudding) Oral Phase Increased oral holding time Pharyngeal No overt signs or symptoms of aspiration;Delayed Swallow;Decreased Laryngeal Isabel vation (refused further trials) Recommendations Liquids Consistency Recommendations Thin Diet Consistency Recommendation Pureed (2 item per tray) Recommendations Dysphagia treatment;Set up with meals;Check on patients frequently throught out meals Risk for Aspiration Mild (mild-mod) Compensatory Swallowing Strategies Remain upright for 30 minutes after meals;Alternate compa ds and liquids;Small bites/sips;Eat/feed slowly;Effortful swallow;Upright as possible for al l oral intake Recommended Form of Meds Meds crushed in puree Summary Recommend thin and puree (2 items per meal tray). No overt s/s of asp during trial s, however pt was uncomfortable during evaluation and required encouragment to participate i n solid trials. Plan of Care Treatment Plan ST to follow;Daily 4 to 6 times a week;Dysphagia treatment Follow up treatments Swallow strategies;Diet tolerance monitoring;Patient/Family education; Assessment for upgrade Dysphagia Goals Supervisor Beam Department Goals Safe/efficient oral intake Pt will have safe/efficient oral intake Thin liquids;New/revised goal Short Term Goals Tolerate liquid consistency Pt will tolerate tolerate liquid consistency Thin liquids;With max supervision;New/revised goal in-house pension fund manager unavailable and computer pension fund manager unavailable, family used Tj, John Garcia MD - 01/17/2015 11:50 AM PDTFormatting of this note might be different from the chantella l. Progress Notes by Mario Crawford MD at 01/17/15 1150 Author: Mario Crawford MD Service: Cardiology Author Type: Physician Filed: 01/17/15 1203 Date of Service: 01/17/15 1150 Status: Signed Statistical Reporting Analyst: Mario Crawford MD (Physician) [facility] Service: Cardiology Progress Note Hospital Day: LOS: 14 days Post-Op Day: 14 Days Post-Op SUBJECTIVE Patient Summary: 64 y.o. male with no previous cardiac history. 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 He underwent a robotic ultralow anterior resection o f the tumor, with a total mesorectal excision, coloanal pull-through, and diverting loop ile ostomy by Dr. Shore. On POD # 2, he developed atrial fibrillation with rapid ventricular response, but this resolved spontaneously. During the course of his hospitalization, he has had recurrent episodes of atrial fibrillation with RVR, and with these, tends to drop his b lood pressure. He has required IV pressors at times. On 01/12/15, postoperative day #9, he b ecame hypotensive, tachycardic, and tachypneic, with evidence of lactic acidosis and metabol ic acidosis, which he was intubated and transferred to ICU. A chest x-ray subsequently revea led a large infiltrate over most of the right lung, with a small pleural effusion. Dr. Cheyanne murphy's report to me, although the patient had been told not to eat or drink, he was drinking water from his room sitting and aspirated. He has been on IV pressors, now discontinued, an d antibiotics. He has complained of splinting pain of the chest, mostly on the right side bu t also some on the left side today. He has evidence of acute pancreatitis, and an ultrasound shows contraction of the gallbladder. HIDA scan is currently in progress. LFTs are elevated , possibly due to ischemic hepatitis from the hypotension, but I note that he also has a sig nificant history of alcohol intake. His initial echocardiogram done 01/05/15 showed normal L V systolic function, with an EF of 65-70%, and mild MR. A repeat echocardiogram done 5 showed decreased LV systolic function, with global hypokinesis, EF 35-40%. I reviewed the images personally, and it also appears that the right ventricle has mild systolic dysfunctio n. Unlike the first echocardiogram, there was also evidence of grade 2 diastolic dysfunction , and the mitral regurgitation and gone from mild to moderate, with the development of mild- moderate tricuspid regurgitation and borderline pulmonary hypertension. The peak right ventr icular systolic pressure was estimated at 37.[address] scan of the abdomen showed extensi ve calcification of the coronary arteries and mild cardiomegaly. It therefore also appears t hat he has significant underlying coronary artery disease, which will need further evaluatio n once he is stable. Events Overnight: He has severe right upper quadrant abdominal pain, dyspnea. No furt her atrial fibrillation on telemetry. He is currently in sinus tachycardia, likely due to pa in. The HIDA scan is currently in progress. Past Medical History Diagnosis Date Arthritis Hyperlipidemia Joint pain Rectal cancer (HCC) 09/06/2014 Acute kidney injury (HCC) 01/12/2015 Past Surgical History Procedure Laterality Date Colonoscopy Flexible sigmoidoscopy N/A 08/21/2014 Procedure: SIGMOIDOSCOPY - FLEXIBLE; Surgeon: Saleem Shore MD; Location: [facility]; Service: General; Laterality: N/A; Total hip arthroplasty Bilateral Knee surgery Right Flexible sigmoidoscopy N/A 12/25/2014 Procedure: SIGMOIDOSCOPY - FLEXIBLE; Surgeon: Saleem Shore MD; Location: [facility]; Service: General; Laterality: N/A; Robotic assisted laparoscopic colon resection - coloanal N/A 01/03/2015 Procedure: ROBOTIC ASSISTED LAPAROSCOPIC COLON RESECTION - COLOANAL; Surgeon: Saleem chauhan MD; Location: [facility] MA[facility] OR; Service: General; Laterality: N/A; coloanal pull thr ough Flexible sigmoidoscopy N/A 01/03/2015 Procedure: SIGMOIDOSCOPY - FLEXIBLE; Surgeon: Saleem Shore MD; Location: [facility] OR; Service: General; Laterality: N/A; Sigmoidoscopy - rigid N/A 01/03/2015 Procedure: SIGMOIDOSCOPY - RIGID; Surgeon: Saleem Shore MD; Location: [facility] OR ; Service: General; Laterality: N/A; Allergies Allergen Reactions Seasonal Allergies [Other-Environmental] Itching Scheduled Medications ampicillin-sulbactam 3 g Intravenous Q6H digoxin 0.125 mg Intravenous Daily fat emulsion 250 mL Intravenous Daily heparin (porcine) 5000 unit/0.5mL 5,000 Units Subcutaneous Q8H insulin aspart 0-16 Units Subcutaneous 4 times per day levofloxacin 500 mg Intravenous Q24H nystatin 5 mL Oral 4x Daily pantoprazole 40 mg Intravenous QAM AC Continuous Infusions dexmedetomidine in NS 0.7 mcg/kg/hr (01/17/1545) TPN ADULT Stopped (01/17/15729) TPN ADULT PRN Medications acetaminophen, albuterol, dextrose, dextrose, fentaNYL OR fentaNYL, lip moisturizer, ma gnesium sulfate OR magnesium sulfate OR magnesium sulfate, nystatin, nystatin, [DISC ONTINUED] ondansetron OR ondansetron, petrolatum, polyethylene glycol, potassium chlorid e OR potassium chloride OR potassium chloride, promethazine, sodium phosphate IVPB 1 5 mmol OR sodium phosphate IVPB 30 mmol OBJECTIVE Vital Signs: BP 103/62 mmHg | Pulse 82 | Temp(Src) 99.2 F (37.3 C) (Axillary) | Resp 37 | Ht 1.626 m (5' 4") | Wt 81 kg (178 lb 9.2 oz) | BMI 30.64 kg/m2 | SpO2 92% Temp: [97.6 F (36.4 C)-99.2 F (37.3 C)] 99.2 F (37.3 C) (01/17 0748) BP: (87-124)/(50-65) 103/62 mmHg (01/17 1115) Heart Rate: [67-84] 82 (01/17 1115) Resp: [23-51] 37 (01/17 1000) SpO2: [90 %-97 %] 92 % (01/17 1115) Weight: [81 kg (178 lb 9.2 oz)] 81 kg (178 lb 9.2 oz) (01/17 0500) Telemetry: Sinus tachycardia GENERAL: Thin, ill-appearing male, in moderate distress due to abdominal pain. Bertha ears older than his stated age. HEENT: Normocephalic, atraumatic. EYES: PERRL, sclerae anicteric, no xanthelsasmas MOUTH: Oral mucosae moist, missing upper incisors, very poor and dentition, no lesions note d NECK: No JVD, lymphadenopathy, thyromegaly, bruits. Carotid pulses are 2+ bilaterally LUNGS: Tachypneic, extensive rhonchi in the right anterior and left upper and lower lung fi elds, no rales or wheezing noted, respirations unlabored HEART: Nondisplaced PMI, tachycardic rate, regular rhythm, S1, S2 normal. No murmurs, rubs or gallops noted. ABDOMEN: Diffuse voluntary guarding. Bowel sounds are decreased in all 4 quadrants, colosto my bag in place. The abdominal aortic pulsation was not examined due to pain and recent surg tomasa EXTREMITIES: Trace ankle edema. Radial pulses 2+ bilaterally. Femoral pulses are 2+ bilater ally without bruits. DP and PT pulses are 2+ bilaterally. SKIN: Warm and dry, capillary refill is normal, no lesions. NEUROLOGIC: Awake, but mental status is decreased, difficult to assess due to pain. Not romaine alfredo for focal motor deficits. PSYCHIATRIC: He answers simple questions appropriately, although does not give much informa tion, but difficult to assess further due to pain DATA CBC: Lab Results Component Value Date WBC 10.87 01/17/2015 RBC 2.78* 01/17/2015 HGB 9.2* 01/17/2015 HCT 27.1* 01/17/2015 MCV 97.5 01/17/2015 MCH 33.1 01/17/2015 MCHC 33.9 01/17/2015 RDW 42.9 01/17/2015 PLT 110* 01/17/2015 MPV 10.6 01/17/2015 DIFFTYPE MANUAL 01/17/2015 CMP: Lab Results Component Value Date NA 139 01/17/2015 K 4.0 01/17/2015 CL 105 01/17/2015 CO2 30 01/17/2015 ANIONGAP 8 01/17/2015 GLUF 104* 01/17/2015 BUN 31* 01/17/2015 CREATININE 0.64* 01/17/2015 BCR 48 01/17/2015 CA 7.8* 01/17/2015 PROT 5.2* 01/16/2015 ALB 1.4* 01/16/2015 GLOB 2.7 01/12/2015 BILITOT 5.2* 01/16/2015 ALP 131* 01/16/2015 AST 289* 01/16/2015 ALT 442* 01/16/2015 EGFR >60 01/17/2015 Magnesium: Lab Results Component Value Date MG 2.3 01/17/2015 Phosphorus: Lab Results Component Value Date PHOS 3.9 01/17/2015 Amylase: Lab Results Component Value Date AMYLASE 133* 01/17/2015 Lipase: Lab Results Component Value Date LIPASE 1069* 01/17/2015 PROBLEM LIST Principal Problem: Aspiration pneumonia (HCC) Active Problems: Rectal cancer (HCC) Persistent atrial fibrillation (HCC) Hyperlipidemia Abdominal pain Anemia Atrial fibrillation with RVR (HCC) Severe sepsis (HCC) Acute respiratory failure with hypoxia (HCC) Acute kidney injury (HCC) Acute pancreatitis ASSESSMENT & PLAN 1. Episodes of Paroxysmal atrial fibrillation, with rapid ventricular response, associated with episodes of hypotension. He tends to break spontaneously to sinus rhythm. He has no neo or history of atrial arrhythmias, and this is probably due to his recent surgery, fluid shif ts, and now the aspiration pneumonia. As such, it is likely that this will eventually resolv e on its own. He is currently on digoxin. With the pancreatitis and abnormal LFTs, I would a void amiodarone. If he has recurrent atrial fibrillation, the only other antiarrhythmic medi cation that could be considered, given his LV systolic dysfunction, would be dofetilide, and Colby Hernandez M.D. will need to be consulted to use this medication. If he becomes hemodyna mically unstable again, then direct current cardioversion on an emergent basis would be the best treatment. He is on subcutaneous heparin, which should be changed to full dose Lovenox, 1 mg/kg twice a day, if his HIDA scan shows no indication for a cholecystectomy. I strongly recommend avoiding the use of dobutamine, which will only serve to increase his ventricular rate, possibly causing greater hemodynamic instability and hypotension. If pressures are ne eded, Levothroid would be a better choice. His CHADS2 VASc score is 1, therefore chronic ora l anticoagulation is not considered necessary. 2. Acute dilated cardiomyopathy, with significantly decreased LV systolic function between his 2 echocardiograms, done just one week apart, the most recent one showing a left ventricu lar ejection fraction of 35-40%. His troponin was only minimally elevated, and I do not susp ect that he has had an acute NC. The inferior infarct cited on his EKG from 01/11/15 does no t appear to be true, as there are intermittent "r" waves in aVF. There were no acute ischemi c changes noted. He benefit from standard medical therapy with beta blockers and isaac inhibit ors, but at present, his blood pressure has been too low to consider starting these just yet . 3. Extensive coronary calcifications consistent with atherosclerosis, suggesting significan t multivessel coronary artery disease. This will need to be evaluated once he is more along in his recovery from surgery, and more stable. 4. Extensive right-sided aspiration pneumonia, on antibiotics 5. Invasive moderately differentiated rectal adenocarcinoma, for which she underwent surger y 01/03/15 6. Acute pancreatitis, possibly ischemic due to low blood pressure 7. Elevated LFTs, also possibly ischemic, due to low blood pressure 8. Contracted gallbladder on ultrasound, HIDA scan pending. If cholecystectomy is required , I believe that the benefits would be greater than the risks posed by his cardiac problems, and I would not delay surgery for stress testing or cardiac catheterization. 9. History of alcohol abuse Disposition: Inpatient ICU care. Code Status: Full Code Bo Lopez D.O., of [facility] will be available over the weeke nd for any cardiology problems. Mario Crawford MD 01/17/2015 onversion Transacti on, Provider Unknown - 01/17/2015 10:52 AM PDTFormatting of this note might be different fro m the original. Progress Notes by Choco Hernandez RPH at 01/17/15 1052 Author: Choco Hernandez RPH Service: Pharmacy Author Type: Pharmacist Filed: 01/17/15 1052 Date of Service: 01/17/15 105 Status: Signed Statistical Reporting Analyst: Choco Hernandez RPH (Pharmacist) TPN day 7, Lytes WNL. Blood sugars good. Patient was changed from endotool infusion to sliding scale TPN Novolog sliding scale. Blood sugars 100's-110's, no changes in TPN formula. Jcarlos Allen ARNP - 01/17/2015 10:00 AM PDTFormatting of this note might be different from the o riginal. Progress Notes by Jcarlos Lawson RN at 01/17/15 1000 Author: Jcarlos Lawson RN Service: (none) Author Type: Registered Nurse Filed: 01/17/15 1108 Date of Service: 01/17/15 1000 Status: Signed Statistical Reporting Analyst: Jcarlos Lawson RN (Registered Nurse) With patient in Nuc. Med department for HIDA scan. VSS onversion Transacti on, Provider Unknown - 01/17/2015 7:43 AM PDTFormatting of this note might be different fro m the original. Progress Notes by Rubia Regan, MS-4 at 01/17/15 0743 Author: Rubia Regan, MS-4 Service: Speech And Hearing Clinic Director Author Type: Medical Student Filed: 01/17/15 1141 Date of Service: 01/17/15742 Status: Attested Statistical Reporting Analyst: Rubia Regan, MS-4 (Medical Student) Cosigner: Niesha Duarte MD at 01/17/15 1216 Attestation signed by Niesha Duarte MD at 01/17/15 1216 Plan of care discussed with Rubia. I agree with the physical examination and management as documented. Follow up HIDA scan results to rule out acute acalculous cholecystitis. Please bill 45 minutes of critical care time spent evaluating the patient, reviewing the da ta and formulating a plan exclusive of procedures. [facility] Service: Speech And Hearing Clinic Director Progress Note Jose Eaton 64 y.o. Hospital Day: LOS: 14 days Post-Op Day: 14 Days Post-Op Consulting Physicians Treatment Team: Consulting Physician: Amy Simons MD Consulting Physician: Mario Crawford MD Admitting Provider: Saleem Shore MD SUBJECTIVE Patient Summary: Pt is a 64 y/o Burkinan speaking M with past medical history significant for hyperlipidemia, rectal cancer, on chemotherapy with 5-FU . 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 . While on the floor the pt had some episodes of n/v, tachycardia, temp spikes, episodes of afib, was diagnosed with SBO. Pt complained of th irst and was found drinking water out of the sink despite being educated regarding his NPO s tatus, it is thought that he aspirated. 01/11/15 a RAT was called as the pt was hypotensive & tachycardic, he was given 5L crystall oids and his BP improved but he became tachypneic. Stat blood gas showed metabolic acidosis and lactic acidosis. Pt showed signs of respiratory fatigue with increasing O2 requirement a nd was subsequently intubated, given 2 pushes of bicarb. Post-intubation CXR revealed R-side d pneumonia, he was started on IV Zosyn plus vancomyin. ICU Timeline: 01/12: Pt transferred to ICU. RIJ, arterial line placed. 01/13: Pt hypotensive requiring pressor. Echo showed reduced EF. Started on dobutamine w ith improvement of BP. Developed Afib with RVR. Started on digoxin, converted to sinus rhyth m. 01/15: Off pressors. Pt went back into Afib. Failed SBT. Diuresed with Lasix. Continued on dobutamine. 01/16: Extubated, on 2L O2. Started on Precedex d/t agitation & tachypnea. Complaining of RUQ abd pain & splinting while breathing. Acute pancreatitis. Events Overnight: Opiates held in preparation for HIDA scan SCHEDULED MEDICATIONS ampicillin-sulbactam 3 g Intravenous Q6H digoxin 0.125 mg Intravenous Daily fat emulsion 250 mL Intravenous Daily heparin (porcine) 5000 unit/0.5mL 5,000 Units Subcutaneous Q8H insulin aspart 0-15 Units Subcutaneous 4 times per day levofloxacin 500 mg Intravenous Q24H nystatin 5 mL Oral 4x Daily pantoprazole 40 mg Intravenous QAM AC thiamine (VITAMIN B1) IVPB 100 mg Intravenous Q24H CONTINUOUS INFUSIONS dexmedetomidine in NS 0.6 mcg/kg/hr (01/17/15 0139) DOBUTamine in D5W 2 mg/mL Stopped (01/16/15 1639) insulin regular 1 unit/mL Stopped (01/17/15 0408) sodium chloride (IV) 30 mL/hr at 01/13/15 0800 TPN ADULT 75 mL/hr at 01/16/15 2206 OBJECTIVE VITAL SIGNS Temp: [97.6 F (36.4 C)-98.6 F (37 C)] 98 F (36.7 C) Heart Rate: [67-122] 74 Resp: [23-51] 40 BP: (87-124)/(50-77) 97/60 mmHg CVP (mean): [10 mmHg-46 mmHg] 18 mmHg (01/17 0600) PA catheter wave form: [-] Intake/Output Summary (Last 24 hours) at 01/17/15 0742 Last data filed at 01/17/15 0535 Gross per 24 hour Intake 4741 ml Output 1730 ml Net 3011 ml EXAM GEN: awake, alert, appears to be in pain, is requesting water NEURO: PERRLA, no facial asymmetry, moves all 4 extremities HEENT: sclerae clear, nonicteric, oral mmm, pink, no exudates, poor dentition missing some teeth NECK: supple, trachea midline HEART: RRR, no murmur, rub or gallop LUNGS: decreased lung sounds, no wheezing or rhonchi, tachypneic ABD: soft, slight distension, diffusely tender to palpation worse in the RUQ, positive Murp hys sign, no rebound tenderness, voluntary guarding, colostomy bag in place with greenish fl uid in bag surrounding skin is c/d/i non erythematous, BS present. No peribumilical or flank ecchymoses. EXTR: no edema, clubbing or cyanosis SKIN: warm, dry, edematous most pronounced in the scrotal region, skin surrounding abdomina l wound is c/d/i and non erythematous; no e/o skin breakdown over the occiput, scapulae, elb ows, sacrum or heels LINES/TUBES: Port A Cath R chest 09/06/14, RIJ 01/12, Catheter (5 days) DATA Recent Labs Lab 01/17/15 0302 01/16/15 1350 01/16/15 0637 01/11/15 0441 WBC 10.87 10.81 9.40 < > 4.58 RBC 2.78* 2.90* 2.87* < > 3.64* HGB 9.2* 9.8* 9.4* < > 12.4* HCT 27.1* 28.3* 27.9* < > 35.9* MCV 97.5 97.7 97.5 < > 98.7 MCH 33.1 33.6 32.7 < > 34.0 MCHC 33.9 34.4 33.5 < > 34.5 RDW 42.9 44.2 43.8 < > 41.1 PLT 110* 127* 114* < > 266 MPV 10.6 9.7 9.4 < > 8.6 BANDSABS 0.33* 0.22* 1.97* < > -- NEUTROABS -- -- -- -- 3.36 LYMPHSABS -- -- -- -- 0.39* MONOSABS -- -- -- -- 0.63 BASOSABS -- -- -- -- 0.02 EOSABS -- -- -- -- 0.19 MORPH NORMAL RBC MORPH RBC AND PLT MORPHOLOGY APPEAR NORMAL 1+ < > -- < > = values in this interval not displayed. Recent Labs Lab 01/17/15 0302 01/16/15 1350 01/16/15 1155 01/16/15 0637 01/16/15 0230 01/15/15 0958 01/12/15 0244 NA 139 -- -- 141 142 -- -- < > 141 K 4.0 -- 3.8 4.0 3.7 < > 3.1* < > 3.8 CL 105 -- -- 105 103 -- -- < > 113* CO2 30 -- -- 32 31 -- -- < > 19* ANIONGAP 8 -- -- 9 12 -- -- < > 12 GLUF 104* -- -- 120* 99 -- -- < > 92 BUN 31* -- -- 24 25 -- -- < > 17 CREATININE 0.64* -- -- 0.71 0.78 -- -- < > 1.0 BCR 48 -- -- 34 32 -- -- < > 17 CA 7.8* -- -- 7.5* 8.0* -- -- < > 6.5* ALB -- 1.4* -- -- 2.2* -- -- -- 1.8* GLOB -- -- -- -- -- -- -- -- 2.7 AG -- -- -- -- -- -- -- -- 0.7* PROT -- 5.2* -- -- 5.1* -- -- -- 4.6* BILITOT -- 5.2* -- -- 5.3* -- -- -- 1.4 ALT -- 442* -- -- 399* -- -- -- 16 AST -- 289* -- -- 307* -- -- -- 19 EGFR >60 -- -- >60 >60 -- -- < > >60 PHOS 3.9 -- -- -- 3.6 -- 2.8 < > 2.4 MG 2.3 -- -- -- 2.1 -- 2.1 < > 1.3* < > = values in this interval not displayed. No results for input(s): INR in the last 168 hours. Amylase: Lab Results Component Value Date AMYLASE 133* 01/17/2015 Lipase: Lab Results Component Value Date LIPASE 1069* 01/17/2015 IMAGING X-ray Chest 1 View 01/16/2015 1. Stable extensive airspace disease within the right lung. 2. Small bilater al pleural effusions with left basilar subsegmental atelectasis. Ultrasound Abdomen Limited 01/16/2015 1. Contracted gallbladder with the gallbladder wall thickening, sludge, and p ositive sonographic Brar sign. Acute cholecystitis is not excluded. 2. Small 4 mm polyp w ithin the gallbladder. Ct Chest Abdomen Pelvis With Iv Contrast 01/12/2015 1. Extensive right lung pneumonia with small parapneumonic effusion. 2. Mild cardiomegaly and severe coronary to ossifications. 3. Generalized anasarca, commonly seen i n septic patient's. There are several bubbles of gas in the subcutaneous tissues of uncertai n etiology but possibly iatrogenic. Correlate to exclude gas-forming soft tissue infection. 4. Fluid-filled proximal small bowel with relatively decompressed distal small bowel proxima l to the ileostomy. Favor normal variant/ileus over bowel obstruction. Gastroenteritis /radi ation enteritis could have a similar picture. RADIA Electronically signed by Nba cruz MD on Jan 12 2015 6:44AM Referring Provider Line: [id number] ID: [id number] Echo Cardiac Adult Complete 01/12/2015 1. Overall left ventricular systolic function is moderately impaired with, an EF between 35 - 40 %. 2. Pseudonormal LV diastolic filling pattern, consistent with elevated LA pressure and moderate dysfunction (Grade II). 3. The right ventricle is normal in size. 4. The right ventricular systolic function is impaired. 5. Moderate mitral regurgitation is present. 6. Mgzw-ho-hactrkcu tricuspid regurgitation present. 7. There is mild pulmonary hyp ertension. PROBLEM LIST Principal Problem: Aspiration pneumonia (HCC) Active Problems: Rectal cancer (HCC) Persistent atrial fibrillation (HCC) Hyperlipidemia Abdominal pain Anemia Atrial fibrillation with RVR (HCC) Severe sepsis (HCC) Acute respiratory failure with hypoxia (HCC) Acute kidney injury (HCC) Acute pancreatitis ASSESSMENT & PLAN NEURO: Mental status: Awake, alert, some agitation secondary to pain. Pain control: Opiates are being held prior to HIDA scan. Pt on Precedex. Restart pain m eds following scan. CV: Episodes of Afib with RVR, Hypotension: On digoxin and subq heparin, continue monitoring dig levels & aPTT, transition to full dose Lovenox pending HIDA scan results. [employer] Equipment [employer]r Dr. Crawford consulted, following. Recommends avoiding dobutamine as it could worsen hypotension d/t increased ventricular rate and avoiding amiodarone d/t pt's current pancreatitis & elev ated LFTs. If Afib recurs suggests considering dofetilide or direct current cardioversion if pt hemodynamically unstable. Acute dilated cardiomyopathy, decreased LV systolic function: Dr. Crawford consulted, follow ing, recommends starting beta marilyn and isaac inhibitor when BP normalizes. CAD: Dr. Crawford consulted, following. F/up in outpatient setting. PULM: RLL aspiration pneumonia: 01/16 pt switched from Zosyn to Unasyn plus levofloxacin. ID consulted, following. Acute respiratory failure with hypoxia: Pt was extubated 01/16. Still tachypneic but ap pears to be secondary to pain, reassess following restarting pain meds after HIDA scan. GI/NUTRITION: Acute pancreatitis: Bowel rest, fluids, pain management, continue following amylase & li pase. Lavonne score at time zero calculated at 2, will recalculate in 48 hrs. Elevated AST, ALT, direct & total bili: ischemic from hypotension versus hepatobiliary p athology. HIDA scan ordered. Rectal cancer: S/p coloanal pull-through for low rectal cancer POD#14 Nutrition: Pt currently NPO until biliary pathology r/out. Hold TPN 2 hrs prior to HIDA scan. RENAL/LYTES: NICOL: Resolved 01/12 Electrolytes: mild hypocalcemia in setting of acute pancreatitis, 01/17 Ca 8.0 & ionized Ca 1.05 01/16, continue monitoring ID: Aspiration pneumonia: 01/16 pt switched from Zosyn to Unasyn plus levofloxacin. ID consu lted, following. No leukocytosis. E. coli bacteremia, sepsis: Currently on Unasyn plus levofloxacin. Most recent serial bl ood draws negative. HEME: Anemia: etiology likely dilutional, no evidence of active bleeding, continue monitoring ENDO: BG: On SSI, goal of BG below 180 MUSC/SKIN: Colostomy, surgical wounds: Healing well, continue with wound care. PT/OT: defer until pain is better controlled. PROPHYLAXIS: Stress ulcer prophylaxis: Protonix DVT prophylaxis: heparin, SCD's VAP bundle: extubated, not necessary Disposition: ICU care as outlined above. Keep pt NPO for now, hold TPN and opiates prior t o HIDA, focus on pain control after HIDA other trt pending results. Code Status: Full Code Rubia Jass, MS-4 01/17/2015 Rahul Larios DO - 01/17/2015 6:41 AM PDTFormatting of this note might be different from the randolph ginal. Progress Notes by Rahul Valles DO at 01/17/15640 Author: Rahul Valles DO Service: (none) Author Type: Physician Filed: 01/17/15 0702 Date of Service: 01/17/15640 Status: Signed Statistical Reporting Analyst: Rahul Valles DO (Physician) [facility] Service: Infectious Disease Progress Note Hospital Day: LOS: 14 days Post-Op Day: 10 Days Post-Op SUBJECTIVE Patient Summary: 64-year-old with rectal cancer, status post chemoradiation, status post robotic resection, ileostomy on 01/03. Had an episode of vomiting on 01/11, and also dillan gnosed with partial SBO. It appears that patient was noncompliant with nothing by mouth stat us and may have aspirated. He was brought to the ICU with respiratory failure intubated and ventilated. Started on IV Zosyn plus vancomycin plus metronidazole. On press source. 01/15 Patient remains intubated and ventilated. Remains on low-dose dobutamine and pressor s. Failed spontaneous breathing trial. TPN: Day #5 Low-grade temperature 100.5 Fahrenheit noted this morning. White count remains normal. CC: Abdominal pain, pneumonia Chart reviewed: No new events. Subjective The patient is having severe abdominal pain this morning. Narcotics have been held to allow for a HIDA scan, which is expected to be performed early this morning. He also admits nause a. He denies cough and shortness of breath. ROS No fever, chills sweats. No vomiting or diarrhea. No rashes or pruritis. No oral pain. Scheduled Medications ampicillin-sulbactam 3 g Intravenous Q6H digoxin 0.125 mg Intravenous Daily fat emulsion 250 mL Intravenous Daily heparin (porcine) 5000 unit/0.5mL 5,000 Units Subcutaneous Q8H insulin aspart 0-15 Units Subcutaneous 4 times per day levofloxacin 500 mg Intravenous Q24H nystatin 5 mL Oral 4x Daily pantoprazole 40 mg Intravenous QAM AC thiamine (VITAMIN B1) IVPB 100 mg Intravenous Q24H Continuous Infusions dexmedetomidine in NS 0.6 mcg/kg/hr (01/17/15 013) DOBUTamine in D5W 2 mg/mL Stopped (01/16/15 1639) insulin regular 1 unit/mL Stopped (01/17/15 0408) sodium chloride (IV) 30 mL/hr at 01/13/15 0800 TPN ADULT 75 mL/hr at 01/16/15 2206 PRN Medications acetaminophen, albuterol, dextrose, dextrose, dextrose, dextrose, fentaNYL OR fentaNYL, HYDROmorphone OR HYDROmorphone, lip moisturizer, magnesium sulfate OR magnesium sul fate OR magnesium sulfate, nystatin, nystatin, [DISCONTINUED] ondansetron OR ondanse damaris, petrolatum, polyethylene glycol, potassium chloride OR potassium chloride OR p otassium chloride, promethazine sodium phosphate IVPB 15 mmol OR sodium phosphate IVPB 30 mmol OBJECTIVE Vital Signs: BP 97/60 mmHg | Pulse 74 | Temp(Src) 98 F (36.7 C) (Axillary) | Resp 40 | Ht 1.626 m (5 ' 4") | Wt 81 kg (178 lb 9.2 oz) | BMI 30.64 kg/m2 | SpO2 93% Temp: [97.6 F (36.4 C)-98.6 F (37 C)] 98 F (36.7 C) (01/18 400) BP: (87-124)/(50-77) 97/60 mmHg (01/17 600) Heart Rate: [67-122] 74 (01/17 600) Resp: [23-51] 40 (01/17 600) SpO2: [90 %-97 %] 93 % (01/17 600) Weight: [81 kg (178 lb 9.2 oz)] 81 kg (178 lb 9.2 oz) (01/17 0500) Exam: Const: Vitals reviewed. No acute distress Skin: No rashes, no edema Right chest Mediport and right IJ triple-lumen catheter sites unremarkable. ENT: No thrush. Lungs: CTAB, no rales or wheezes Heart: RRR, no murmur Abd: soft, diffuse tenderness, + bowel sounds DATA CBC: Lab Results Component Value Date WBC 10.87 01/17/2015 RBC 2.78* 01/17/2015 HGB 9.2* 01/17/2015 HCT 27.1* 01/17/2015 MCV 97.5 01/17/2015 MCH 33.1 01/17/2015 MCHC 33.9 01/17/2015 RDW 42.9 01/17/2015 PLT 110* 01/17/2015 MPV 10.6 01/17/2015 DIFFTYPE MANUAL 01/17/2015 WBC: Lab Results Component Value Date WBC 10.87 01/17/2015 NEUTABSMAN 9.46* 01/17/2015 NEUTROABS 3.36 01/11/2015 NEUTROMAN 87 01/17/2015 LYMPHOABS 0.43* 01/17/2015 LYMPHOMAN 4 01/17/2015 LYMPHSABS 0.39* 01/11/2015 LYMPHOPCT 8.54 01/11/2015 MONOABSMAN 1.19* 01/16/2015 MONOMAN 11 01/16/2015 MONOPCT 13.66 01/11/2015 EOSINOABS 0.43 01/17/2015 EOSINOMAN 4 01/17/2015 EOSABS 0.19 01/11/2015 EOSPCT 4.07 01/11/2015 BASOSABS 0.02 01/11/2015 BASOPCT 0.38 01/11/2015 PLTEST DECREASED 01/16/2015 BANDSPCT 3 01/17/2015 NRBC 1* 01/16/2015 METAABS 0.11* 01/17/2015 METAPCT 1 01/17/2015 MYELOABS 0.11* 01/17/2015 MYELOPCT 1 01/17/2015 CMP: Lab Results Component Value Date NA 139 01/17/2015 K 4.0 01/17/2015 CL 105 01/17/2015 CO2 30 01/17/2015 ANIONGAP 8 01/17/2015 GLUF 104* 01/17/2015 BUN 31* 01/17/2015 CREATININE 0.64* 01/17/2015 BCR 48 01/17/2015 CA 7.8* 01/17/2015 PROT 5.2* 01/16/2015 ALB 1.4* 01/16/2015 GLOB 2.7 01/12/2015 BILITOT 5.2* 01/16/2015 ALP 131* 01/16/2015 AST 289* 01/16/2015 ALT 442* 01/16/2015 EGFR >60 01/17/2015 PROBLEM LIST Principal Problem: Atrial fibrillation with RVR (HCC) Active Problems: Rectal cancer (HCC) Persistent atrial fibrillation (HCC) Hyperlipidemia Abdominal pain Anemia Severe sepsis (HCC) Acute respiratory failure with hypoxia (HCC) Aspiration pneumonia (HCC) Acute kidney injury (HCC) Acute pancreatitis ASSESSMENT & PLAN Severe sepsis/shock Secondary to severe aspiration pneumonia Extubated at this time. Continue Unasyn plus levofloxacin. Anticipate total of 10 days of antibiotics-day #7 today Anticipate HIDA scan to assess for cholecystitis. Bacteremia Gram-negative rods -now identified as Escherichia coli -noted only in the anaerobic bottle of one set from cultures on 01/11. Possible bacteremia from aspiration pneumonia sputum has also shown Escherichia coli. Antibiotics as above Rectal cancer Status post surgery on 01/03. Code Status: Full Code RAHUL VALLES DO 01/17/2015 onversion Transaction , Provider Unknown - 01/16/2015 3:32 PM PDT Therapy Progress Note by Kitty Peng MA CCC-MAILROOM SUPERVISOR at 01/16/151531 Author: Kitty Peng MA CCC-MAILROOM SUPERVISOR Service: (none) Author Type: Speech and Language Patholo gist Filed: 01/16/151531 Date of Service: 01/16/151531 Status: Signed Statistical Reporting Analyst: Kitty Peng MA CCC-MAILROOM SUPERVISOR (Speech and Language Pathologist) 01/16/15 1532 MAILROOM SUPERVISOR Last Visit MAILROOM SUPERVISOR Received On 01/16/15 Requires MAILROOM SUPERVISOR Follow Up On hold Per RN pt not appropriate for swallow at this time. ST to check back tomorrow. Aubrie Fitzgerald MD - 01/16/2015 2:43 PM PDT Progress Notes by Aubrie Linton MD at 01/16/15 1443 Author: Aubrie Linton MD Service: Infectious Disease Author Type: Physician Filed: 01/16/15 191 Date of Service: 01/16/15 1443 Status: Signed Statistical Reporting Analyst: Aubrie Linton MD (Physician) [facility] Service: Infectious Disease Progress Note Hospital Day: LOS: 13 days Post-Op Day: 10 Days Post-Op SUBJECTIVE Patient Summary: 64-year-old with rectal cancer, status post chemoradiation, status post robotic resection, ileostomy on 01/03. Had an episode of vomiting on 01/11, and also dillan gnosed with partial SBO. It appears that patient was noncompliant with nothing by mouth stat us and may have aspirated. He was brought to the ICU with respiratory failure intubated and ventilated. Started on IV Zosyn plus vancomycin plus metronidazole. On press source. 01/15 Patient remains intubated and ventilated. Remains on low-dose dobutamine and pressor s. Failed spontaneous breathing trial. TPN: Day #5 Low-grade temperature 100.5 Fahrenheit noted this morning. White count remains normal. Events overnight: Patient extubated Remains afebrile with normal white count Subjective Unable to obtain Scheduled Medications digoxin 0.125 mg Intravenous Daily fat emulsion 250 mL Intravenous Daily heparin (porcine) 5000 unit/0.5mL 5,000 Units Subcutaneous Q8H nystatin 5 mL Oral 4x Daily pantoprazole 40 mg Intravenous QAM AC piperacillin-tazobactam 3.375 g Intravenous Q8H thiamine (VITAMIN B1) IVPB 100 mg Intravenous Q24H Continuous Infusions dexmedetomidine in NS 0.5 mcg/kg/hr (01/16/15 0539) DOBUTamine in D5W 2 mg/mL 0.75 mcg/kg/min (01/16/15 1100) insulin regular 1 unit/mL 6 Units/hr (01/14/15 0539) sodium chloride (IV) 30 mL/hr at 01/13/15 0800 TPN ADULT 75 mL/hr at 01/15/15 2137 TPN ADULT PRN Medications acetaminophen, albuterol, dextrose, dextrose, fentaNYL OR fentaNYL, HYDROmorphone OR* * HYDROmorphone, lip moisturizer, magnesium sulfate OR magnesium sulfate OR magnesiu m sulfate, nystatin, nystatin, [DISCONTINUED] ondansetron OR ondansetron, petrolatum, po lyethylene glycol, potassium chloride OR potassium chloride OR potassium chloride, p romethazine, sodium phosphate IVPB 15 mmol OR sodium phosphate IVPB 30 mmol OBJECTIVE Vital Signs: BP 108/62 mmHg | Pulse 82 | Temp(Src) 98.6 F (37 C) (Axillary) | Resp 40 | Ht 1.626 m ( 5' 4") | Wt 84.4 kg (186 lb 1.1 oz) | BMI 31.92 kg/m2 | SpO2 94% Temp: [98.2 F (36.8 C)-98.6 F (37 C)] 98.6 F (37 C) (01/16 1200) BP: (86-124)/(50-77) 108/62 mmHg (01/16 1300) Heart Rate: [77-122] 82 (01/16 1300) Resp: [18-48] 40 (01/16 1300) SpO2: [94 %-98 %] 94 % (01/16 1300) FiO2 : [30 %-40 %] 30 % (01/15 2021) GENERAL: vitals reviewed. HEENT: conjunctivae normal. No icterus. External ears appear normal. NECK: Central line in place. LUNGS: Decreased breath sounds in the bases. No obvious rhonchi appreciated. HEART : Normal heart sounds . No significant murmur or rub ABDOMEN: Postsurgical abdomen. Bowel sounds appreciated. PERIPHERIES: Positive for edema, no varicosities or ulcers SKIN: no rash. No areas of cellulitis JOINTS: no swelling or obvious inflammation noted. NEURO: Currently extubated. Opening eyes spontaneously. Noncommunicative at this time. Appe ars to be very weak and fatigued. IV SITE: clean without any obvious purulence DATA CBC: Lab Results Component Value Date WBC 10.81 01/16/2015 RBC 2.90* 01/16/2015 HGB 9.8* 01/16/2015 HCT 28.3* 01/16/2015 MCV 97.7 01/16/2015 MCH 33.6 01/16/2015 MCHC 34.4 01/16/2015 RDW 44.2 01/16/2015 PLT 127* 01/16/2015 MPV 9.7 01/16/2015 DIFFTYPE MANUAL 01/16/2015 WBC: Lab Results Component Value Date WBC 10.81 01/16/2015 NEUTABSMAN 8.96* 01/16/2015 NEUTROABS 3.36 01/11/2015 NEUTROMAN 83 01/16/2015 LYMPHOABS 0.22* 01/16/2015 LYMPHOMAN 2 01/16/2015 LYMPHSABS 0.39* 01/11/2015 LYMPHOPCT 8.54 01/11/2015 MONOABSMAN 1.19* 01/16/2015 MONOMAN 11 01/16/2015 MONOPCT 13.66 01/11/2015 EOSINOABS 0.22 01/16/2015 EOSINOMAN 2 01/16/2015 EOSABS 0.19 01/11/2015 EOSPCT 4.07 01/11/2015 BASOSABS 0.02 01/11/2015 BASOPCT 0.38 01/11/2015 PLTEST DECREASED 01/16/2015 BANDSPCT 2 01/16/2015 NRBC 1* 01/16/2015 METAABS 0.17* 01/16/2015 METAPCT 2 01/16/2015 CMP: Lab Results Component Value Date NA 141 01/16/2015 K 3.8 01/16/2015 CL 105 01/16/2015 CO2 32 01/16/2015 ANIONGAP 9 01/16/2015 GLUF 120* 01/16/2015 BUN 24 01/16/2015 CREATININE 0.71 01/16/2015 BCR 34 01/16/2015 CA 7.5* 01/16/2015 PROT 5.1* 01/16/2015 ALB 2.2* 01/16/2015 GLOB 2.7 01/12/2015 BILITOT 5.3* 01/16/2015 ALP 103 01/16/2015 AST 307* 01/16/2015 ALT 399* 01/16/2015 EGFR >60 01/16/2015 LDH: Lab Results Component Value Date LDH 134 01/11/2015 CPK: Lab Results Component Value Date CKTOTAL 157 01/05/2015 Sputum culture Status: Preliminary result Visible to patient: Not Released Next appt: 01/24/2015 at 08:15 AM in Hematology and Oncology ([facility] NURSE) 01/12/15 7:55 AM Specimen Description SPUTUMP GRAM STAIN GREATER THAN 10 WBCS/LPFP GRAM STAIN LESS THAN 10 SEC/LPFP GRAM STAIN 1+P GRAM STAIN GRAM POSITIVE COCCIP GRAM STAIN Testing performed at [facility], [address], [place] [address]U CULTURE PENDINGP Resulting Agency [facility] Specimen Collected: 01/12/15 7:55 AM Impression 1. Stable right perihilar and basilar airspace disease. 2. Mild stable left basilar opacity to likely represent subsegmental atelectasis. X-ray chest 1 view [[id number]] PROBLEM LIST Principal Problem: Atrial fibrillation with RVR (HCC) Active Problems: Rectal cancer (HCC) Persistent atrial fibrillation (HCC) Hyperlipidemia Abdominal pain Anemia Severe sepsis (HCC) Acute respiratory failure with hypoxia (HCC) Aspiration pneumonia (HCC) Acute kidney injury (HCC) ASSESSMENT & PLAN Severe sepsis/shock Secondary to severe aspiration pneumonia Extubated at this time. Sputum cultures from 01/12 showed only Escherichia coli along with normal respiratory nighat Vancomycin and metronidazole have been discontinued-patient currently on Zosyn. We will switch to Unasyn plus levofloxacin. Anticipate total of 10 days of antibiotics-day #6 today Bacteremia Gram-negative rods -now identified as Escherichia coli -noted only in the anaerobic bottle of one set from cultures on 01/11. Possible bacteremia from aspiration pneumonia sputum has also shown Escherichia coli. Antibiotics as above Leukopenia This has resolved. White count is normal at present Rectal cancer Status post surgery on 01/[address] Valles will be on hospital ID service from tomorrow. Code Status: Full Code Aubrie Linton MD 01/16/2015 onversio n Transaction, Provider Unknown - 01/16/2015 2:17 PM PDTFormatting of this note might be di fferent from the original. Therapy Progress Note by Kelli Belle PT at 01/16/15 1417 Author: Kelli Belle PT Service: (none) Author Type: Physical Therapist Filed: 01/16/15 1446 Date of Service: 01/16/157 Status: Signed Statistical Reporting Analyst: Kelli Belle PT (Physical Therapist) 01/16/15 1417 PT Last Visit PT Received On 01/16/15 Requires PT Follow Up On hold Other Comments Comments Per RN, pain management is a huge issue and recommends holding P.T. for today. aleem Christie MD - 01/16/2015 12:58 PM PDT Progress Notes by Saleem Shore MD at 01/16/15 1258 Author: Saleem Shore MD Service: General Surgery Author Type: Physician Filed: 01/16/15 1324 Date of Service: 01/16/15 1258 Status: Signed Statistical Reporting Analyst: Saleem Shore MD (Physician) [facility] Service: Colon & Rectal Surgery Progress Note Hospital Day: LOS: 13 days Post-Op Day: 12 Day Post-Op SUBJECTIVE Patient Summary: S/P Coloanal pull-through for low rectal cancer. Events Overnight: extubated this am, he is having right sided chest pain and splinting , ostomy functional Scheduled Medications digoxin 0.125 mg Intravenous Daily fat emulsion 250 mL Intravenous Daily heparin (porcine) 5000 unit/0.5mL 5,000 Units Subcutaneous Q8H nystatin 5 mL Oral 4x Daily pantoprazole 40 mg Intravenous QAM AC piperacillin-tazobactam 3.375 g Intravenous Q8H thiamine (VITAMIN B1) IVPB 100 mg Intravenous Q24H Continuous Infusions dexmedetomidine in NS 0.5 mcg/kg/hr (01/16/15 0539) DOBUTamine in D5W 2 mg/mL 0.75 mcg/kg/min (01/16/15 1100) insulin regular 1 unit/mL 6 Units/hr (01/14/15 0539) sodium chloride (IV) 30 mL/hr at 01/13/15 0800 TPN ADULT 75 mL/hr at 01/15/15 2137 TPN ADULT PRN Medications acetaminophen, albuterol, dextrose, dextrose, fentaNYL OR fentaNYL, HYDROmorphone OR* * HYDROmorphone, lip moisturizer, magnesium sulfate OR magnesium sulfate OR magnesiu m sulfate, nystatin, nystatin, [DISCONTINUED] ondansetron OR ondansetron, petrolatum, po lyethylene glycol, potassium chloride OR potassium chloride OR potassium chloride, p romethazine, sodium phosphate IVPB 15 mmol OR sodium phosphate IVPB 30 mmol OBJECTIVE Vital Signs: BP 110/56 mmHg | Pulse 80 | Temp(Src) 98.3 F (36.8 C) (Axillary) | Resp 35 | Ht 1.626 m (5' 4") | Wt 84.4 kg (186 lb 1.1 oz) | BMI 31.92 kg/m2 | SpO2 94% Temp: [98.2 F (36.8 C)-99.9 F (37.7 C)] 98.3 F (36.8 C) (01/16 0800) BP: (81-124)/(49-77) 110/56 mmHg (01/16 1130) Heart Rate: [79-122] 80 (01/16 1130) Resp: [17-48] 35 (01/16 1130) SpO2: [92 %-98 %] 94 % (01/16 1130) FiO2 : [30 %-40 %] 30 % (01/15 2021) Physical Exam Constitutional: He appears well-developed and well-nourished. He is intubated. HENT: Head: Atraumatic. Eyes: Pupils are equal, round, and reactive to light. Neck: Neck supple. Pulmonary/Chest: He is intubated. Abdominal: Soft. He exhibits no distension. There is no tenderness. Genitourinary: Neurological: He is alert. Follows command Skin: Skin is warm. He is not diaphoretic. Vitals reviewed. DATA CBC: Lab Results Component Value Date WBC 9.40 01/16/2015 RBC 2.87* 01/16/2015 HGB 9.4* 01/16/2015 HCT 27.9* 01/16/2015 MCV 97.5 01/16/2015 MCH 32.7 01/16/2015 MCHC 33.5 01/16/2015 RDW 43.8 01/16/2015 PLT 114* 01/16/2015 MPV 9.4 01/16/2015 DIFFTYPE MANUAL 01/16/2015 BMP: Lab Results Component Value Date NA 141 01/16/2015 K 3.8 01/16/2015 CL 105 01/16/2015 CO2 32 01/16/2015 ANIONGAP 9 01/16/2015 GLUF 120* 01/16/2015 BUN 24 01/16/2015 CREATININE 0.71 01/16/2015 BCR 34 01/16/2015 CA 7.5* 01/16/2015 EGFR >60 01/16/2015 Magnesium: Lab Results Component Value Date MG 2.1 01/16/2015 Phosphorus: Lab Results Component Value Date PHOS 3.6 01/16/2015 PROBLEM LIST Principal Problem: Atrial fibrillation with RVR (HCC) Active Problems: Rectal cancer (HCC) Persistent atrial fibrillation (HCC) Hyperlipidemia Abdominal pain Anemia Severe sepsis (HCC) Acute respiratory failure with hypoxia (HCC) Aspiration pneumonia (HCC) Acute kidney injury (HCC) ASSESSMENT & PLAN S/P Coloanal pull-through for low rectal cancer POD#12. Developed likely aspiration pneumo faye and sepsis. Afib Extubated this am. - Cardiology consult. - suggest dobhoff and TF if unable to oral feeding. - US RUQ due to LFT elevation Disposition: Code Status: Full Code Saleem Shore MD 01/16/2015 onversion Transac tion, Provider Unknown - 01/16/2015 11:58 AM PDTFormatting of this note might be different f rom the original. Progress Notes by Choco Hernandez RPH at 01/16/15 4282 Author: Choco Hernandez RPH Service: Pharmacy Author Type: Pharmacist Filed: 01/16/15 4650 Date of Service: 01/16/15 4849 Status: Signed Statistical Reporting Analyst: Choco Hernandez RPH (Pharmacist) TPN day 6, Lytes WNL, Patient is still on endotool insulin drip. No changes in TPN formula. Patient is at goal of AA 6% + D18% at 75ml/hr. onver alex Transaction, Provider Unknown - 01/16/2015 10:27 AM PDT Case Management by BRIA Lima at 01/16/15 1027 Author: BRIA Lima Service: (none) Author Type: Tube Bender Hand Filed: 01/16/15 1034 Date of Service: 01/16/15 1027 Status: Signed Statistical Reporting Analyst: BRIA Lima (Tube Bender Hand) Attended morning rounds. Pt was extubated. Brother and friend are in pt's room. Cardiolog y to consult. onver alex Transaction, Provider Unknown - 01/16/2015 8:35 AM PDT Progress Notes by JESSICA Colin at 01/16/1598 Author: JESSICA Colin Service: Speech And Hearing Clinic Director Author Type: Medical Student Filed: 01/16/15 0389 Date of Service: 01/16/15834 Status: Attested Statistical Reporting Analyst: JESSICA Colin (Medical Student) Cosigner: Niesha Duarte MD at 01/16/151756 Attestation signed by Niesha Duarte MD at 01/16/151756 Plan of care discussed with Rubia. I agree with the physical examination and management as documented. Please bill 40 minutes of critical care time spent evaluating the patient, reviewing the da ta and formulating a plan exclusive of procedures. [facility] Service: Speech And Hearing Clinic Director Progress Note Jose Eaton 64 y.o. Hospital Day: LOS: 13 days Post-Op Day: 13 Days Post-Op Consulting Physicians Treatment Team: Consulting Physician: Amy Simons MD Consulting Physician: Acute Care General Surgery Admitting Provider: Saleem Shore MD SUBJECTIVE Patient Summary: Pt is a 64 y/o M with past medical history significant for hyperlipidemia, rectal cancer, o n chemotherapy with 5-FU . Pt is s/p Robotic Ultra-low Anterior resection, total mesorectal excision, complete mobilization of the splenic flexure, Rigid Proctoscopy, Hand-sewn coloana l pull through and creation of a diverting loop ileostomy on on 01/03. On the floor the pt wa s thirsty and was found trying to drink water out of the sink. He had some episodes of n/v, tachycardia, temp spikes. 01/11 a RAT was called as the pt was hypotensive & tachycardic, he was given 5L crystalloid s and his BP improved but he became tachypneic. Stat blood gas showed metabolic acidosis and lactic acidosis. Pt showed signs of respiratory fatigue with increasing O2 requirement and was subsequently intubated, given 2 pushes of bicarb. Post-intubation CXR revealed R-sided p neumonia, he was started on IV Zosyn plus vancomyin, ICU Timeline: 01/12: Pt transferred to ICU. RIJ, arterial line placed. 01/13: Pt hypotensive requiring pressor. Echo showed reduced EF. Started on dobutamine w ith improvement of BP. Developed Afib with RVR. Started on digoxin, converted to sinus rhyth m. 01/15: Off pressors. Pt went back into Afib. Failed SBT. Diuresed with Lasix. Continued on dobutamine. Events Overnight: Extubated, on 2L O2 Started on Precedex d/t agitation & tachypnea Complaining of RUQ pain and splinting while breathing Dobutamine increased SCHEDULED MEDICATIONS digoxin 0.125 mg Intravenous Daily fat emulsion 250 mL Intravenous Daily heparin (porcine) 5000 unit/0.5mL 5,000 Units Subcutaneous Q8H lactated ringers 1,000 mL Intravenous Once nystatin 5 mL Oral 4x Daily pantoprazole 40 mg Intravenous QAM AC piperacillin-tazobactam 3.375 g Intravenous Q8H thiamine (VITAMIN B1) IVPB 100 mg Intravenous Q24H CONTINUOUS INFUSIONS dexmedetomidine in NS 0.5 mcg/kg/hr (01/16/15 0539) DOBUTamine in D5W 2 mg/mL 1.75 mcg/kg/min (01/16/15 0653) insulin regular 1 unit/mL 6 Units/hr (01/14/15 0539) sodium chloride (IV) 30 mL/hr at 01/13/15 0800 TPN ADULT 75 mL/hr at 01/15/157 OBJECTIVE VITAL SIGNS Temp: [98.2 F (36.8 C)-100.3 F (37.9 C)] 98.2 F (36.8 C) Heart Rate: [83-116] 102 Resp: [11-48] 31 BP: (81-118)/(49-65) 88/52 mmHg FiO2 : [30 %-40 %] 30 % CVP (mean): [4 mmHg-16 mmHg] 6 mmHg (01/16 040) PA catheter wave form: [-] Intake/Output Summary (Last 24 hours) at 01/16/15 0835 Last data filed at 01/16/15 0628 Gross per 24 hour Intake 4192.2 ml Output 8835 ml Net -4642.8 ml EXAM GEN: awake, alert, oriented x3, is clutching right side, splinting while breathing, appears in pain, nurse just administered more fentanyl NEURO: PERRLA, EOMI, no facial asymmetry, moves all 4 extremities HEENT: sclerae clear, nonicteric, oral mmm, pink, no exudates NECK: supple, trachea midline HEART: RRR, no murmur, rub or gallop LUNGS: coarse lung sounds with some R sided rales, no wheezing, tachypneic ABD: soft, nondistended, tender to palpation in RUQ, positive Brar's sign, no rebound ten derness, voluntary guarding, colostomy bag in place with greenish fluid in bag surrounding s kin is c/d/i non erythematous. EXTR: no edema, clubbing or cyanosis SKIN: warm, dry, edematous most pronounced in the scrotal region, skin surrounding abdomina l wound is c/d/i and non erythematous; no e/o skin breakdown over the occiput, scapulae, elb ows, sacrum or heels LINES/TUBES: Mediport 09/06/14, RIJ 01/12 DATA Recent Labs Lab 01/16/15 1350 01/16/15 0637 01/16/15 0230 01/11/15 0441 01/10/15 0449 WBC 10.81 9.40 8.37 < > 4.58 4.68 RBC 2.90* 2.87* 2.81* < > 3.64* 3.87* HGB 9.8* 9.4* 9.3* < > 12.4* 13.3 HCT 28.3* 27.9* 27.5* < > 35.9* 38.1* MCV 97.7 97.5 97.9 < > 98.7 98.6 MCH 33.6 32.7 33.1 < > 34.0 34.4* MCHC 34.4 33.5 33.8 < > 34.5 34.9 RDW 44.2 43.8 43.3 < > 41.1 40.3 PLT 127* 114* 117* < > 266 256 MPV 9.7 9.4 9.9 < > 8.6 8.4 BANDSABS 0.22* 1.97* 0.25* < > -- -- NEUTROABS -- -- -- -- 3.36 3.48 LYMPHSABS -- -- -- -- 0.39* 0.29* MONOSABS -- -- -- -- 0.63 0.70 BASOSABS -- -- -- -- 0.02 0.02 EOSABS -- -- -- -- 0.19 0.20 MORPH RBC AND PLT MORPHOLOGY APPEAR NORMAL 1+ RBC AND PLT MORPHOLOGY APPEAR NORMAL < > -- -- < > = values in this interval not displayed. Recent Labs Lab 01/16/15 1350 01/16/15 1155 01/16/15 0637 01/16/15 0230 01/15/15 0958 01/15/15 0417 01/12/15 0244 NA -- -- 141 142 -- -- 142 < > 141 K -- 3.8 4.0 3.7 < > 3.1* 3.1* < > 3.8 CL -- -- 105 103 -- -- 110* < > 113* CO2 -- -- 32 31 -- -- 31 < > 19* ANIONGAP -- -- 9 12 -- -- 5 < > 12 GLUF -- -- 120* 99 -- -- 95 < > 92 BUN -- -- 24 25 -- -- 26* < > 17 CREATININE -- -- 0.71 0.78 -- -- 0.61* < > 1.0 BCR -- -- 34 32 -- -- 43 < > 17 CA -- -- 7.5* 8.0* -- -- 7.4* < > 6.5* ALB 1.4* -- -- 2.2* -- -- -- -- 1.8* GLOB -- -- -- -- -- -- -- -- 2.7 AG -- -- -- -- -- -- -- -- 0.7* PROT 5.2* -- -- 5.1* -- -- -- -- 4.6* BILITOT 5.2* -- -- 5.3* -- -- -- -- 1.4 ALT 442* -- -- 399* -- -- -- -- 16 AST 289* -- -- 307* -- -- -- -- 19 EGFR -- -- >60 >60 -- -- >60 < > >60 PHOS -- -- -- 3.6 -- 2.8 1.4* < > 2.4 MG -- -- -- 2.1 -- 2.1 2.3 < > 1.3* < > = values in this interval not displayed. No results for input(s): INR in the last 168 hours. Amylase: Lab Results Component Value Date AMYLASE 184* 01/16/2015 Ionized Calcium: Lab Results Component Value Date THEO 1.05* 01/16/2015 PH 7.442 01/16/2015 Lipase: Lab Results Component Value Date LIPASE 1499* 01/16/2015 IMAGING U/S Impression 1. Contracted gallbladder with the gallbladder wall thickening, sludge, and positive sonogr aphic Brar sign. Acute cholecystitis is not excluded. 2. Small 4 mm polyp within the gallbladder. X-ray Chest 1 View 01/16/2015 1. Stable extensive airspace disease within the right lung. 2. Small bilater al pleural effusions with left basilar subsegmental atelectasis. X-ray Chest 1 View 01/15/2015 1. Stable extensive airspace disease in right mid and lower lung. 2. Stable mild left basal atelectasis and/or airspace disease. Ct Chest Abdomen Pelvis With Iv Contrast 01/12/2015 1. Extensive right lung pneumonia with small parapneumonic effusion. 2. Mild cardiomegaly and severe coronary to ossifications. 3. Generalized anasarca, commonly seen i n septic patient's. There are several bubbles of gas in the subcutaneous tissues of uncertai n etiology but possibly iatrogenic. Correlate to exclude gas-forming soft tissue infection. 4. Fluid-filled proximal small bowel with relatively decompressed distal small bowel proxima l to the ileostomy. Favor normal variant/ileus over bowel obstruction. Gastroenteritis /radi ation enteritis could have a similar picture. RAD[facility] Electronically signed by Nba cruz MD on Jan 12 2015 6:44AM Referring Provider Line: [phone] ID: [id number] Echo Cardiac Adult Complete 01/12/2015 1. Overall left ventricular systolic function is moderately impaired with, an EF between 35 - 40 %. 2. Pseudonormal LV diastolic filling pattern, consistent with elevated LA pressure and moderate dysfunction (Grade II). 3. The right ventricle is normal in size. 4. The right ventricular systolic function is impaired. 5. Moderate mitral regurgitation is present. 6. Hfki-we-dbgoihmi tricuspid regurgitation present. 7. There is mild pulmonary hyp ertension. PROBLEM LIST Principal Problem: Atrial fibrillation with RVR (HCC) Active Problems: Rectal cancer (HCC) Persistent atrial fibrillation (HCC) Hyperlipidemia Abdominal pain Anemia Severe sepsis (HCC) Acute respiratory failure with hypoxia (HCC) Aspiration pneumonia (HCC) Acute kidney injury (HCC) Acute pancreatitis ASSESSMENT & PLAN NEURO: Mental status: Awake, alert, interactive. Agitation overnight seems to be more related t o pain then to delirium. Pain control: Currently on Dilaudid and Ketorolac. Continue Precedex. Once able to admi nister NPO meds consider oral percocet. CV: Afib with RVR: On digoxin. Dr. Crawford consulted, following. Hypotension: Currently on dobutamine PULM: RLL aspiration pneumonia: CXR 01/16 shows "stable extensive airspace disease throughout the right lung." Pt is currently covered on Zosyn. Acute respiratory failure with hypoxia: Pt was extubated overnight, is still somewhat ta chypneic and is splinting to breathe d/t pain. Consider trial on BiPAP. GI/NUTRITION: Acute Pancreatitis: Bowel rest, fluids, pain management with Dilaudid. Triglycerides nor mal. Rectal cancer: S/p coloanal pull-through for low rectal cancer POD#12. RENAL/LYTES: NICOL: Resolved 01/12 Electrolytes: Currently no issues. ID: E. Coli bacteremia, sepsis: 2 subsequent blood draws have been negative, resolved. Aspiration pneumonia: Currently on Zosyn, metronidazole was discontinued on 01/15, ID co nsulting. HEME: Anemia: likely dilutional etiology, no evidence of active bleeding, continue monitoring ENDO: BG: On Endotool, goal of BG below 180 MUSC/SKIN: Colostomy, surgical wounds: Healing well, continue with wound care. PT/OT: defer until pain is better controlled. PROPHYLAXIS: Stress ulcer prophylaxis: Protonix DVT prophylaxis: heparin, SCD's VAP bundle: extubated, not necessary Disposition: ICU care as above. Continue pain management with dilaudid and Ketorolac, anti biotic treatment, fluid bolus for pancreatitis, continue NPO. Code Status: Full Code Rubia Jass, MS-4 01/16/2015 onver alex Transaction, Provider Unknown - 01/15/2015 8:00 PM PDT Nurse Progress Note by Francisca Caraballo RN at 01/15/151999 Author: Francisca Caraballo RN Service: (none) Author Type: Registered Nurse Filed: 01/16/15 0711 Date of Service: 01/15/151999 Status: Signed Statistical Reporting Analyst: Francisca Caraballo RN (Registered Nurse) Report from day RN, POC discussed, armband verified with MAR, allergies and code status not ed. Pt sedated, vented, will open eyes to voice and follow commands weakly on all four extre mities. Burkinan primary language. Pt eyes are red and have matter present, notified MD and no new orders at this time. Pupils PEERLA. S1S2 heard and HR. Pt lungs are coarse to clear. Pt is tolerating vent, poor dentition. Pt has hypoactive BT. Ileostomy in place and clear li ght bile drainage present. OG tube has trickle feeds going in. At this time 40ml residual pr esent and refed. Pt catheter in place and draining. Pt perineal area extremely swollen. Pt h as incisions and generalized edema. No other issues at this time. Will continue to monitor. 2029 Dr. Russo rounded and updated. Planning to extubate later in the shift. Turned vent se ttings down. Will continue to monitor. 2100 Pt repositioned. He is purposeful. No changes at this time. [address] Russo rounded and ordered sedation to be turned down to check readiness to extubat e. 221 Pt is breathing very rapidly. Attempting to talk patient down and explain POC. Pt has periods of not breathing as fast, followed by rapid breathing. Will continue to monitor. 2225 Dr. Russo called to come in as patient respiratory rate was escalating. He ordered ET tube to be pulled. Will continue to monitor. 2232 Pt was extubated and moaning a lot and breathing rapidly. Medication given per orde rs and gtt of precedex ordered. Will continue to monitor. 2310 Pt resting after being repositioned. He is not moaning at this time. 0000 Pt assessment complete and no acute changes. Will continue to monitor. 0058 Pt went into Afib. Notified JONATHON Maharaj and at this point the plan is to monitor patie nt and rate. No new orders. 0100 Spoke with about hemodynamics, no new orders at this time. BP is lower, but patient still mentating and producing urine. 0145 Spoke with MD about hemodynamics, no new orders received. [id number] Pt continues to moan and want more water, but swabs and a few ice chips is all th at can be provided. Pt was given those and gained some relief. He was provided a bath with l otion, hair washed and fresh linens. Pt resting afterward. 0400 No changes in patient assessment. Chest x ray done. Spoke with MD about pressure and o rders received for fluids. Will continue to monitor. 0550 Pt repositioned and pressure dropped. Spoke with Kamala HOLT, updated and orders recei darius. Will continue to monitor. 0630 Labs drawn on patient and sent. Pt responded well to Dobutamine. 0645 Dr. Russo rounded and planning to place additional orders. Will continue to monitor an d report will be given to day RN. ilabo ramez, Saleem Crabtree MD - 01/15/2015 5:04 PM PDT Progress Notes by Saleem Shore MD at 01/15/151703 Author: Saleem Shore MD Service: General Surgery Author Type: Physician Filed: 01/15/151705 Date of Service: 01/15/151703 Status: Signed Statistical Reporting Analyst: Saleem Shore MD (Physician) [facility] Service: Colon & Rectal Surgery Progress Note Hospital Day: LOS: 12 days Post-Op Day: 11 Day Post-Op SUBJECTIVE Patient Summary: S/P Coloanal pull-through for low rectal cancer. Events Overnight: no new concern Scheduled Medications atorvastatin 40 mg Oral Nightly chlorhexidine gluconate 15 mL Mouth/Throat Q12H digoxin 0.125 mg Oral Daily fat emulsion 250 mL Intravenous Daily heparin (porcine) 5000 unit/0.5mL 5,000 Units Subcutaneous Q8H nystatin 5 mL Oral 4x Daily pantoprazole 40 mg Intravenous QAM AC piperacillin-tazobactam 3.375 g Intravenous Q8H potassium chloride 20 mEq Per OG Tube BID WC thiamine (VITAMIN B1) IVPB 100 mg Intravenous Q24H Continuous Infusions DOBUTamine in D5W 2 mg/mL 1.5 mcg/kg/min (01/15/15 1432) fentaNYL 50 mcg/hr (01/15/15 1150) furosemide 1 mg/hr (01/15/15 1031) insulin regular 1 unit/mL 6 Units/hr (01/14/15 0539) propofol 20 mcg/kg/min (01/15/15 1200) sodium chloride (IV) 30 mL/hr at 01/13/15 0800 TPN ADULT 70 mL/hr at 01/14/15 2111 TPN ADULT PRN Medications acetaminophen, acetaminophen OR acetaminophen, albuterol, dextrose, dextrose, lip moist urizer, magnesium sulfate OR magnesium sulfate OR magnesium sulfate, midazolam, nyst atin, nystatin, [DISCONTINUED] ondansetron OR ondansetron, pancrelipase (Imb-Nsym-Irta) 10,000 units, petrolatum, polyethylene glycol, potassium chloride OR potassium chloride OR potassium chloride, promethazine, sodium bicarbonate, sodium chloride 0.9 % sodium phosphate IVPB 15 mmol OR sodium phosphate IVPB 30 mmol, zolpidem OBJECTIVE Vital Signs: BP 91/55 mmHg | Pulse 91 | Temp(Src) 98.4 F (36.9 C) (Oral) | Resp 21 | Ht 1.626 m (5' 4") | Wt 84.4 kg (186 lb 1.1 oz) | BMI 31.92 kg/m2 | SpO2 98% Temp: [97.6 F (36.4 C)-100.3 F (37.9 C)] 98.4 F (36.9 C) (01/15 1649) BP: (81-124)/(49-66) 91/55 mmHg (01/15 1649) Heart Rate: [78-102] 91 (01/15 1649) Resp: [11-37] 21 (01/15 1649) SpO2: [92 %-100 %] 98 % (01/15 1649) Weight: [84.4 kg (186 lb 1.1 oz)] 84.4 kg (186 lb 1.1 oz) (01/15 430) FiO2 : [30 %-40 %] 40 % (01/15 1649) Physical Exam Constitutional: He appears well-developed and well-nourished. He is intubated. HENT: Head: Atraumatic. Eyes: Pupils are equal, round, and reactive to light. Neck: Neck supple. Pulmonary/Chest: He is intubated. Abdominal: Soft. He exhibits no distension. There is no tenderness. Genitourinary: Neurological: He is alert. Follows command Skin: Skin is warm. He is not diaphoretic. Vitals reviewed. DATA CBC: Lab Results Component Value Date WBC 6.67 01/15/2015 RBC 2.77* 01/15/2015 HGB 9.5* 01/15/2015 HCT 27.2* 01/15/2015 MCV 98.2 01/15/2015 MCH 34.5* 01/15/2015 MCHC 35.1 01/15/2015 RDW 44.2 01/15/2015 PLT 105* 01/15/2015 MPV 9.2 01/15/2015 DIFFTYPE MANUAL 01/15/2015 BMP: Lab Results Component Value Date NA 142 01/15/2015 K 3.3* 01/15/2015 CL 110* 01/15/2015 CO2 31 01/15/2015 ANIONGAP 5 01/15/2015 GLUF 95 01/15/2015 BUN 26* 01/15/2015 CREATININE 0.61* 01/15/2015 BCR 43 01/15/2015 CA 7.4* 01/15/2015 EGFR >60 01/15/2015 Magnesium: Lab Results Component Value Date MG 2.1 01/15/2015 Phosphorus: Lab Results Component Value Date PHOS 2.8 01/15/2015 PROBLEM LIST Principal Problem: Atrial fibrillation with RVR (HCC) Active Problems: Rectal cancer (HCC) Persistent atrial fibrillation (HCC) Hyperlipidemia Abdominal pain Anemia Severe sepsis (HCC) Acute respiratory failure with hypoxia (HCC) Aspiration pneumonia (HCC) Acute kidney injury (HCC) ASSESSMENT & PLAN S/P Coloanal pull-through for low rectal cancer POD#11. Developed likely aspiration pneumo faye and sepsis. Currently intubated, he failed SBT today, he will continue on duiretics and try again tomor row. His hemodynamics are normal. - ok to start tube feeds and check residuals. Disposition: Code Status: Full Code Saleem Shore MD 01/15/2015 onversion Transac tion, Provider Unknown - 01/15/2015 12:50 PM PDTFormatting of this note might be different f rom the original. Therapy Progress Note by Kelli Belle PT at 01/15/15 1250 Author: Kelli Belle PT Service: (none) Author Type: Physical Therapist Filed: 01/15/15 1257 Date of Service: 01/15/15 1250 Status: Signed Statistical Reporting Analyst: Kelli Belle PT (Physical Therapist) 01/15/15 1250 PT Last Visit PT Received On 01/15/15 Requires PT Follow Up On hold (Pt remains intubated/sedated) Aubrie Fitzgerald MD - 01/15/2015 12:40 PM PDT Progress Notes by Aubrie Linton MD at 01/15/15 1240 Author: Aubrie Linton MD Service: Infectious Disease Author Type: Physician Filed: 01/15/15 1569 Date of Service: 01/15/151239 Status: Signed Statistical Reporting Analyst: Aubrie Linton MD (Physician) [facility] Service: Infectious Disease Progress Note Hospital Day: LOS: 12 days Post-Op Day: 10 Days Post-Op SUBJECTIVE Patient Summary: 64-year-old with rectal cancer, status post chemoradiation, status post robotic resection, ileostomy on 01/03. Had an episode of vomiting on 01/11, and also dillan gnosed with partial SBO. It appears that patient was noncompliant with nothing by mouth stat us and may have aspirated. He was brought to the ICU with respiratory failure intubated and ventilated. Started on IV Zosyn plus vancomycin plus metronidazole. On press source. Events Overnight: Patient remains intubated and ventilated. Remains on low-dose dobut amine and pressors. Failed spontaneous breathing trial. TPN: Day #5 Low-grade temperature 100.5 Fahrenheit noted this morning. White count remains normal. Subjective Unable to obtain Scheduled Medications atorvastatin 40 mg Oral Nightly chlorhexidine gluconate 15 mL Mouth/Throat Q12H digoxin 0.125 mg Oral Daily fat emulsion 250 mL Intravenous Daily heparin (porcine) 5000 unit/0.5mL 5,000 Units Subcutaneous Q8H metronidazole 500 mg Intravenous Q8H nystatin 5 mL Oral 4x Daily pantoprazole 40 mg Intravenous QAM AC piperacillin-tazobactam 3.375 g Intravenous Q8H potassium chloride 20 mEq Per OG Tube BID WC thiamine (VITAMIN B1) IVPB 100 mg Intravenous Q24H Continuous Infusions DOBUTamine in D5W 2 mg/mL 1.25 mcg/kg/min (01/14/15 2236) fentaNYL 50 mcg/hr (01/15/15 1150) furosemide 1 mg/hr (01/15/15 1031) insulin regular 1 unit/mL 6 Units/hr (01/14/15 0539) propofol 20 mcg/kg/min (01/15/15 1200) sodium chloride (IV) 30 mL/hr at 01/13/15 0800 TPN ADULT 70 mL/hr at 01/14/15 2111 TPN ADULT PRN Medications acetaminophen, acetaminophen OR acetaminophen, albuterol, dextrose, dextrose, lip moist urizer, magnesium sulfate OR magnesium sulfate OR magnesium sulfate, midazolam, nyst atin, nystatin, [DISCONTINUED] ondansetron OR ondansetron, petrolatum, polyethylene glyc ol, potassium chloride OR potassium chloride OR potassium chloride, promethazine, so dium chloride 0.9 % sodium phosphate IVPB 15 mmol OR sodium phosphate IVPB 30 mmol, zolpidem OBJECTIVE Vital Signs: BP 102/56 mmHg | Pulse 90 | Temp(Src) 100.3 F (37.9 C) (Oral) | Resp 11 | Ht 1.626 m (5 ' 4") | Wt 84.4 kg (186 lb 1.1 oz) | BMI 31.92 kg/m2 | SpO2 93% Temp: [97.6 F (36.4 C)-100.3 F (37.9 C)] 100.3 F (37.9 C) (01/16 1200) BP: (85-130)/(52-74) 102/56 mmHg (01/16 1200) Heart Rate: [76-102] 90 (01/16 1200) Resp: [11-38] 11 (01/16 1200) SpO2: [93 %-100 %] 93 % (01/16 1200) Weight: [84.4 kg (186 lb 1.1 oz)] 84.4 kg (186 lb 1.1 oz) (01/15 0430) FiO2 : [30 %] 30 % (01/16 1200) GENERAL: vitals reviewed. Patient intubated and ventilated HEENT: conjunctivae normal. No icterus. External ears appear normal. NECK: Central line in place. ET tube in place. LUNGS: Ventilator delivered breath sounds HEART : Normal heart sounds . No significant murmur or rub ABDOMEN: Postsurgical abdomen. Bowel sounds appreciated. PERIPHERIES: Positive for edema, no varicosities or ulcers SKIN: no rash. No areas of cellulitis JOINTS: no swelling or obvious inflammation noted. NEURO: Unable to assess PSYCH: Unable to assess HEME ; No significant bleeding or Clots on exam IV SITE: clean without any obvious purulence DATA CBC: Lab Results Component Value Date WBC 6.67 01/15/2015 RBC 2.77* 01/15/2015 HGB 9.5* 01/15/2015 HCT 27.2* 01/15/2015 MCV 98.2 01/15/2015 MCH 34.5* 01/15/2015 MCHC 35.1 01/15/2015 RDW 44.2 01/15/2015 PLT 105* 01/15/2015 MPV 9.2 01/15/2015 DIFFTYPE MANUAL 01/15/2015 WBC: Lab Results Component Value Date WBC 6.67 01/15/2015 NEUTABSMAN 5.54 01/15/2015 NEUTROABS 3.36 01/11/2015 NEUTROMAN 83 01/15/2015 LYMPHOABS 0.53* 01/15/2015 LYMPHOMAN 8 01/15/2015 LYMPHSABS 0.39* 01/11/2015 LYMPHOPCT 8.54 01/11/2015 MONOABSMAN 0.13 01/15/2015 MONOMAN 2 01/15/2015 MONOPCT 13.66 01/11/2015 EOSABS 0.19 01/11/2015 EOSPCT 4.07 01/11/2015 BASOSABS 0.02 01/11/2015 BASOPCT 0.38 01/11/2015 PLTEST DECREASED 01/14/2015 BANDSPCT 7 01/15/2015 METAABS 0.21* 01/13/2015 METAPCT 2 01/13/2015 CMP: Lab Results Component Value Date NA 142 01/15/2015 K 3.1* 01/15/2015 CL 110* 01/15/2015 CO2 31 01/15/2015 ANIONGAP 5 01/15/2015 GLUF 95 01/15/2015 BUN 26* 01/15/2015 CREATININE 0.61* 01/15/2015 BCR 43 01/15/2015 CA 7.4* 01/15/2015 PROT 4.6* 01/12/2015 ALB 1.8* 01/12/2015 GLOB 2.7 01/12/2015 BILITOT 1.4 01/12/2015 ALP 72 01/12/2015 AST 19 01/12/2015 ALT 16 01/12/2015 EGFR >60 01/15/2015 LDH: Lab Results Component Value Date LDH 134 01/11/2015 CPK: Lab Results Component Value Date CKTOTAL 157 01/05/2015 Sputum culture Status: Preliminary result Visible to patient: Not Released Next appt: 01/24/2015 at 08:15 AM in Hematology and Oncology (HO NURSE) 01/12/15 7:55 AM Specimen Description SPUTUMP GRAM STAIN GREATER THAN 10 WBCS/LPFP GRAM STAIN LESS THAN 10 SEC/LPFP GRAM STAIN 1+P GRAM STAIN GRAM POSITIVE COCCIP GRAM STAIN Testing performed at [facility], [address], [place] [address] CULTURE PENDINGP Resulting Agency [facility] Specimen Collected: 01/12/15 7:55 AM Impression 1. Stable right perihilar and basilar airspace disease. 2. Mild stable left basilar opacity to likely represent subsegmental atelectasis. X-ray chest 1 view [[id number]] PROBLEM LIST Principal Problem: Atrial fibrillation with RVR (HCC) Active Problems: Rectal cancer (HCC) Persistent atrial fibrillation (HCC) Hyperlipidemia Abdominal pain Anemia Severe sepsis (HCC) Acute respiratory failure with hypoxia (HCC) Aspiration pneumonia (HCC) Acute kidney injury (HCC) ASSESSMENT & PLAN Severe sepsis/shock Secondary to severe aspiration pneumonia Patient remains on pressors. Intubated and ventilated. Likely to include hospital-acquired pathogens-sputum culture shows only normal upper respir atory nighat Continue broad-spectrum coverage Zosyn We will discontinue metronidazole at this time. With MRSA screen being negative, and recent AK I-vancomycin has been discontinued 01/13 Watch fever curve and white count closely. We will consider addition of antifungal-with his tory of abdominal surgery, TPN and broad-spectrum antibiotics, indwelling line. Repeat blood cultures to be drawn if persistent fevers/leukocytosis. Bacteremia Gram-negative rods -now identified as Escherichia coli -noted only in the anaerobic bottle of one set from cultures on 01/11. Other bottles negative. Questionable clinical significance. Subsequent blood cultures have been negative. Leukopenia This has resolved. White count is normal at present Rectal cancer Status post surgery on 01/03 AK I Resolved Code Status: Full Code Aubrie Linton MD 01/15/2015 onversio n Transaction, Provider Unknown - 01/15/2015 12:39 PM PDTFormatting of this note might be di fferent from the original. Progress Notes by Anna Suresh RD, CD at 01/15/15 1239 Author: Anna Suresh RD, CD Service: (none) Author Type: Registered Dietitian Filed: 01/15/15 8355 Date of Service: 01/15/15 1239 Status: Signed Statistical Reporting Analyst: Anna Suresh RD, CD (Registered Dietitian) 01/15/15 1222 Subjective Timepoint Follow up (adjust TPN, start trickle feeds) Pt c/o Pt remains intubated. Plan is to diurese today and hopefully extubate tomorrow. Per surgeon, ok to start trickle feeds and advance if tolerated. Fluid / Beverage Intake Oral Fluids Amount NPO Food Intake Amount of Food NPO Enteral Nutrition Intake Access OG tube. Parenteral Nutrition Intake Access PICC Rate/Solution TPN (D15%, AA 6%) at 70 mL/hr plus lipids 20% 250 mL daily. Propofol rate has been increased to 8.7 mL/hr which provides approximately 230 kcal/day. On IV fluids of NS a t 30 mL/hr. Micronutrient Intake Vitamin Intake Thiamin Mineral / Element Intake Chloride;Potassium Nutrition-Focused Physical Findings Digestive System (Mouth to Rectum) Per RN, ileostomy has put out a small amount of bile but mostly serous fluid. Anthropometrics Weight change Wt is up about 11.6 kg since admit. I/Os indicate that pt is approximately 6. 6 L fluid positive. Lasix currently ordered. Will continue to monitor wt trend and adjust nu trition goals accordingly. Biochemical data, medical tests, and procedures reviewed Biochemical data, medical tests, and procedures reviewed BG control has now improved to the 90s-low 100s with EndoTool insulin drip ordered. Pharmacy also managing insulin in TPN bag. BUN 26 (H), Cr 0.61 (L) - suggestive of muscle loss. K+ 3.1 - replacement ordered. Mg and P hos are WNL. Recommendations Recommended parenteral nutritional needs for pharmacy Spoke with pharmacist. Plan is to inc rease dextrose concentration in TPN to 18% and increase rate to goal of 75 mL/hr. TPN (D18%, AA 6%) at 75 mL/hr plus lipids 20% 250 mL daily will provide 2032 kcal, 108 g protein, 1602 NPC, and 2050 mL total volume. Including propofol, this provides a total of 2262 kcal and 1 08 g protein which supplies 31 kcal/kg and 1.5 g protein based on admit/dry wt. If pt remain s intubated and on propofol and if enteral feeds are not tolerated, recommend changing TPN t o D20%, AA 6% with goal rate of 75 mL/hr and decreasing lipids 20% 250 mL to every other day . This will provide 1906 kcal, 108 g protein, 1925 mL total volume, and 1349 NPC. With propo fol, this will provide a total of 2136 kcal and 108 g protein which supplies 29 kcal/kg and 1.5 g protein/kg. If enteral feeds are tolerated, however, suggest weaning TPN off. Recommended energy needs Initiate trickle feeds of Vital 1.5 at 10 mL/hr. If tolerated and if pt no longer requires propofol, advance as able to goal rate of 75 mL/hr. Assuming 20-елена r/day continuous delivery, this will provide 2250 kcal, 101 g protein, 1500 mL total volume, and 1148 mL free water which supplies 31 kcal/kg and 1.4 g protein/kg based on admit/dry wt . If pt remains intubated and continues to require propofol, TF goals can be adjustetd as ne eded to better meet pt's estimated kcal/protein requirements. Wean TPN off as enteral feeds are advanced. Nutritional Risk Nutritional risk High Follow up date 01/18/[address], CD[facility] 01/15/2015 onver alex Transaction, Provider Unknown - 01/15/2015 12:22 PM PDT Progress Notes by Choco Hernandez RPH at 01/15/151221 Author: Choco Hernandez RPH Service: Pharmacy Author Type: Pharmacist Filed: 01/15/151221 Date of Service: 01/15/151221 Status: Signed Statistical Reporting Analyst: Choco Hernandez RPH (Pharmacist) TPN day 5, K 3.1 at 0417- Replaced with KCL 40meq x 1, K 3.1 at 0958-replaced with KCL 40m Eq x 1. KCL 20mEq po bid also started. -will also increase K in TPN. Will increase Dextrose concentration in TPN to goal of 18%, rate will be 75ml/hr. Will add 20 units insulin/24hr starting with tonight's TPN bag. Patient is still on endotool insulin drip. Trickle feeds to start. Chloride 110, will minimize chloride in TPN. Phos 1.4- replaced with Na Phos 30mmole x 1. Will increase Phos in TPN. onver alex Transaction, Provider Unknown - 01/15/2015 9:14 AM PDT Case Management by BRIA Lima at 01/15/15913 Author: BRIA Lima Service: (none) Author Type: Tube Bender Hand Filed: 01/15/15919 Date of Service: 01/15/15913 Status: Signed Statistical Reporting Analyst: BRIA Lima (Tube Bender Hand) Attended morning rounds. Pt remains vented. Had illeostomy, RAT due to dehydration, POD 11, failed most recent SBT. On TPN. Likely pt will need SNF. Has Medicare and Medicaid. Lives in [place] so likely will want [facility] if proximity to family is important. I will make initial referral though it is u nderstood that pt is a long ways from transferring out of the hospital. [facility] [place]: [phone] Choice of SNF needs to be discussed with family/pt. onver alex Transaction, Provider Unknown - 01/14/2015 12:53 PM PDT Nurse Progress Note by Carmen Butler RN at 01/14/15 1458 Author: Carmen Butler RN Service: Wound/Ostomy Care Author Type: Registered Nurse Filed: 01/14/15 8489 Date of Service: 01/14/15 314 Status: Signed Statistical Reporting Analyst: Carmen Butler RN (Registered Nurse) Wound care seeing patient today for low Michael Score. Today's Michael score is 13. Patient is at moderate risk for developing a pressure ulcer. The patient's skin is intact. Care p ritika and SPOT protocol are in place. Carmen Butler RN ilSaleem schaefer MD - 01/14/2015 11:29 AM PDT Progress Notes by Saleem Shore MD at 01/14/15 1129 Author: Saleem Shore MD Service: General Surgery Author Type: Physician Filed: 01/14/15 1139 Date of Service: 01/14/151128 Status: Signed Statistical Reporting Analyst: Saleem Shore MD (Physician) [facility] Service: Colon & Rectal Surgery Progress Note Hospital Day: LOS: 11 days Post-Op Day: 10 Day Post-Op SUBJECTIVE Patient Summary: S/P Coloanal pull-through for low rectal cancer. Events Overnight: acute respiratory distress, fever and hypotension, intubated and is currently in the ICU, remains hypotensive, Afib with RVR, controled with amiodarone and digo fany. Scheduled Medications atorvastatin 40 mg Oral Nightly chlorhexidine gluconate 15 mL Mouth/Throat Q12H [START ON 01/15/2015] digoxin 0.125 mg Oral Daily fat emulsion 250 mL Intravenous Daily heparin (porcine) 5000 unit/0.5mL 5,000 Units Subcutaneous Q8H metronidazole 500 mg Intravenous Q8H nystatin 5 mL Oral 4x Daily pantoprazole 40 mg Intravenous QAM AC piperacillin-tazobactam 3.375 g Intravenous Q8H thiamine (VITAMIN B1) IVPB 100 mg Intravenous Q24H Continuous Infusions DOBUTamine in D5W 2 mg/mL 2.5 mcg/kg/min (01/14/15 0120) fentaNYL in NS 5 mcg/mL 50 mcg/hr (01/13/15 1601) insulin regular 1 unit/mL 6 Units/hr (01/14/15 0539) propofol 20 mcg/kg/min (01/14/15 0501) sodium chloride (IV) 30 mL/hr at 01/13/15 0800 TPN ADULT 70 mL/hr at 01/13/15 2136 TPN ADULT PRN Medications acetaminophen OR acetaminophen, dextrose, dextrose, lip moisturizer, magnesium sulfate OR magnesium sulfate OR magnesium sulfate, midazolam, nystatin, nystatin, [DISCONTIN UED] ondansetron OR ondansetron, petrolatum, polyethylene glycol, potassium chloride O R potassium chloride OR potassium chloride, promethazine, sodium chloride 0.9 %, sodiu m phosphate IVPB 15 mmol OR sodium phosphate IVPB 30 mmol, zolpidem OBJECTIVE Vital Signs: BP 119/68 mmHg | Pulse 70 | Temp(Src) 98.2 F (36.8 C) (Oral) | Resp 20 | Ht 1.626 m (5' 4") | Wt 81.4 kg (179 lb 7.3 oz) | BMI 30.79 kg/m2 | SpO2 98% Temp: [97.4 F (36.3 C)-98.4 F (36.9 C)] 98.2 F (36.8 C) (01/14 0800) BP: (82-130)/(56-80) 119/68 mmHg (01/14 1000) Heart Rate: [69-130] 70 (01/14 1000) Resp: [0-36] 20 (01/14 1000) SpO2: [86 %-100 %] 98 % (01/14 1000) Height: [162.6 cm (5' 4")] 162.6 cm (5' 4") (01/13 194) FiO2 : [30 %-35 %] 30 % (01/14 0730) Physical Exam Constitutional: He appears well-developed and well-nourished. He is intubated. HENT: Head: Atraumatic. Eyes: Pupils are equal, round, and reactive to light. Neck: Neck supple. Pulmonary/Chest: He is intubated. Abdominal: Soft. He exhibits no distension. There is no tenderness. Genitourinary: Neurological: He is alert. Follows command Skin: Skin is warm. He is not diaphoretic. Vitals reviewed. DATA CBC: Lab Results Component Value Date WBC 11.00 01/14/2015 RBC 2.58* 01/14/2015 HGB 8.3* 01/14/2015 HCT 25.3* 01/14/2015 MCV 97.9 01/14/2015 MCH 32.0 01/14/2015 MCHC 32.7 01/14/2015 RDW 42.4 01/14/2015 PLT 121* 01/14/2015 MPV 8.9 01/14/2015 DIFFTYPE MANUAL 01/14/2015 BMP: Lab Results Component Value Date NA 137 01/14/2015 K 3.2* 01/14/2015 CL 107 01/14/2015 CO2 25 01/14/2015 ANIONGAP 9 01/14/2015 GLUF 111* 01/14/2015 BUN 26* 01/14/2015 CREATININE 0.76 01/14/2015 BCR 34 01/14/2015 CA 7.5* 01/14/2015 EGFR >60 01/14/2015 Magnesium: Lab Results Component Value Date MG 2.3 01/14/2015 Phosphorus: Lab Results Component Value Date PHOS 1.6* 01/14/2015 PROBLEM LIST Principal Problem: Atrial fibrillation with RVR (HCC) Active Problems: Rectal cancer (HCC) Persistent atrial fibrillation (HCC) Hyperlipidemia Abdominal pain Anemia Hyposmolality and/or hyponatremia Severe sepsis (HCC) Lactic acidosis Acute respiratory failure with hypoxia (HCC) Aspiration pneumonia (HCC) Acute kidney injury (HCC) ASSESSMENT & PLAN S/P Coloanal pull-through for low rectal cancer POD#10. Developed likely aspiration pneum onia and sepsis. On supportive treatment and broad spectrum abx in the ICU. Afib with RVR and hypotensive on pressors, started on amiodarone and digoxin. - he is in sinus this morning, not requiring pressors, only on Dobutamine which improved hi s UOP. He is getting slowly weaned off sedation and will have a breathing trial. He is getting diuretics today. GNR in blood and sputum. Overall improved. Disposition: Code Status: Full Code Saleem Shore MD 01/14/2015 onversion Transac tion, Provider Unknown - 01/14/2015 11:16 AM PDTFormatting of this note might be different f rom the original. Progress Notes by Choco Hernandez RPH at 01/14/151115 Author: Choco Hernandez RPH Service: Pharmacy Author Type: Pharmacist Filed: 01/14/151115 Date of Service: 01/14/151115 Status: Signed Statistical Reporting Analyst: Choco Hernandez RPH (Pharmacist) TPN day 4, K 3.2-replaced with KCL 40mEq x 1- will increase K in TPN by 20mEq/L. Phos 1.6- replaced with Na Phos 30mmole x 1- will increase phos in TPN by 5mMole/L Will increase Dextrose concentration from 12% to 15% tonight (eventual goal is 18%) Patient is on Endotool insulin infusion. Aubrie Fitzgerald MD - 01/14/2015 9:30 AM PDT Progress Notes by Aubrie Linton MD at 01/14/15929 Author: Aubrie Linton MD Service: Infectious Disease Author Type: Physician Filed: 01/14/15 1017 Date of Service: 01/14/15929 Status: Signed Statistical Reporting Analyst: Aubrie Linton MD (Physician) [facility] Service: Infectious Disease Progress Note Hospital Day: LOS: 11 days Post-Op Day: 10 Days Post-Op SUBJECTIVE Patient Summary: 64-year-old with rectal cancer, status post chemoradiation, status post robotic resection, ileostomy on 01/03. Had an episode of vomiting on 01/11, and also dillan gnosed with partial SBO. It appears that patient was noncompliant with nothing by mouth stat us and may have aspirated. He was brought to the ICU with respiratory failure intubated and ventilated. Started on IV Zosyn plus vancomycin plus metronidazole. On press source. Events Overnight: Patient remains intubated and ventilated. Remains on low-dose dobut amine and pressors. Failed spontaneous breathing trial. Subjective Unable to obtain Scheduled Medications atorvastatin 40 mg Oral Nightly chlorhexidine gluconate 15 mL Mouth/Throat Q12H [START ON 01/15/2015] digoxin 0.125 mg Oral Daily fat emulsion 250 mL Intravenous Daily heparin (porcine) 5000 unit/0.5mL 5,000 Units Subcutaneous Q8H hydrocortisone sodium succinate PF 100 mg Intravenous Q8H metronidazole 500 mg Intravenous Q8H nystatin 5 mL Oral 4x Daily pantoprazole 40 mg Intravenous QAM AC piperacillin-tazobactam 3.375 g Intravenous Q8H thiamine (VITAMIN B1) IVPB 100 mg Intravenous Q24H Continuous Infusions amiodarone infusion 0.5 mg/min (01/13/15 2258) DOBUTamine in D5W 2 mg/mL 2.5 mcg/kg/min (01/14/15 0120) fentaNYL in NS 5 mcg/mL 50 mcg/hr (01/13/15 1601) insulin regular 1 unit/mL 6 Units/hr (01/14/15 0539) norepinephrine in D5W 64 mcg/mL Stopped (01/14/15 0456) phenylephrine in NS 320 mcg/mL Stopped (01/13/15 2300) propofol 20 mcg/kg/min (01/14/15 0501) sodium chloride (IV) 30 mL/hr at 01/13/15 0800 TPN ADULT 70 mL/hr at 01/13/15 2136 vasopressin in NS 0.4 unit/mL Stopped (01/14/15 0218) PRN Medications acetaminophen OR acetaminophen, dextrose, dextrose, HYDROcodone-acetaminophen OR HY DROcodone-acetaminophen, lip moisturizer, magnesium sulfate OR magnesium sulfate OR magnesium sulfate, midazolam, morphine OR morphine OR morphine, nystatin, nystatin, [DISCONTINUED] ondansetron OR ondansetron, petrolatum, polyethylene glycol, potassium ch loride OR potassium chloride OR potassium chloride, promethazine sodium chloride 0.9 %, sodium phosphate IVPB 15 mmol OR sodium phosphate IVPB 30 mmol, zolpidem OBJECTIVE Vital Signs: BP 100/57 mmHg | Pulse 73 | Temp(Src) 97.4 F (36.3 C) (Oral) | Resp 20 | Ht 1.626 m (5' 4") | Wt 81.4 kg (179 lb 7.3 oz) | BMI 30.79 kg/m2 | SpO2 98% Temp: [97.4 F (36.3 C)-98.4 F (36.9 C)] 97.4 F (36.3 C) (01/14 0500) BP: (82-130)/(50-80) 100/57 mmHg (10/20 0600) Heart Rate: [69-136] 73 (01/14 630) Resp: [0-36] 20 (01/14 630) SpO2: [86 %-100 %] 98 % (01/14 730) Height: [162.6 cm (5' 4")] 162.6 cm (5' 4") (01/13 1945) FiO2 : [30 %-35 %] 30 % (01/14 730) GENERAL: vitals reviewed. Patient intubated and ventilated HEENT: conjunctivae normal. No icterus. Some stickiness noted at the edges. External ears a ppear normal. NECK: Central line in place. ET tube in place. LUNGS: Ventilated delivered breath sounds HEART : Normal heart sounds . No significant murmur or rub ABDOMEN: Postsurgical abdomen. Bowel sounds appreciated. PERIPHERIES: Positive for edema, no varicosities or ulcers SKIN: no rash. No areas of cellulitis JOINTS: no swelling or obvious inflammation noted. NEURO: Unable to assess PSYCH: Unable to assess HEME ; No significant bleeding or Clots on exam IV SITE: clean without any obvious purulence DATA CBC: Lab Results Component Value Date WBC 11.00 01/14/2015 RBC 2.58* 01/14/2015 HGB 8.3* 01/14/2015 HCT 25.3* 01/14/2015 MCV 97.9 01/14/2015 MCH 32.0 01/14/2015 MCHC 32.7 01/14/2015 RDW 42.4 01/14/2015 PLT 121* 01/14/2015 MPV 8.9 01/14/2015 DIFFTYPE MANUAL 01/14/2015 WBC: Lab Results Component Value Date WBC 11.00 01/14/2015 NEUTABSMAN 9.02* 01/14/2015 NEUTROABS 3.36 01/11/2015 NEUTROMAN 82 01/14/2015 LYMPHOABS 0.77* 01/14/2015 LYMPHOMAN 7 01/14/2015 LYMPHSABS 0.39* 01/11/2015 LYMPHOPCT 8.54 01/11/2015 MONOABSMAN 0.33 01/14/2015 MONOMAN 3 01/14/2015 MONOPCT 13.66 01/11/2015 EOSABS 0.19 01/11/2015 EOSPCT 4.07 01/11/2015 BASOSABS 0.02 01/11/2015 BASOPCT 0.38 01/11/2015 PLTEST DECREASED 01/14/2015 BANDSPCT 8 01/14/2015 METAABS 0.21* 01/13/2015 METAPCT 2 01/13/2015 CMP: Lab Results Component Value Date NA 137 01/14/2015 K 3.2* 01/14/2015 CL 107 01/14/2015 CO2 25 01/14/2015 ANIONGAP 9 01/14/2015 GLUF 111* 01/14/2015 BUN 26* 01/14/2015 CREATININE 0.76 01/14/2015 BCR 34 01/14/2015 CA 7.5* 01/14/2015 PROT 4.6* 01/12/2015 ALB 1.8* 01/12/2015 GLOB 2.7 01/12/2015 BILITOT 1.4 01/12/2015 ALP 72 01/12/2015 AST 19 01/12/2015 ALT 16 01/12/2015 EGFR >60 01/14/2015 LDH: Lab Results Component Value Date LDH 134 01/11/2015 CPK: Lab Results Component Value Date CKTOTAL 157 01/05/2015 Sputum culture Status: Preliminary result Visible to patient: Not Released Next appt: 01/24/2015 at 08:15 AM in Hematology and Oncology ([facility] NURSE) 01/12/15 7:55 AM Specimen Description SPUTUMP GRAM STAIN GREATER THAN 10 WBCS/LPFP GRAM STAIN LESS THAN 10 SEC/LPFP GRAM STAIN 1+P GRAM STAIN GRAM POSITIVE COCCIP GRAM STAIN Testing performed at [facility], [address], [place] [address] CULTURE PENDINGP Resulting Agency [facility] Specimen Collected: 01/12/15 7:55 AM Impression 1. Stable right perihilar and basilar airspace disease. 2. Mild stable left basilar opacity to likely represent subsegmental atelectasis. X-ray chest 1 view [[id number]] PROBLEM LIST Principal Problem: Atrial fibrillation with RVR (HCC) Active Problems: Rectal cancer (HCC) Persistent atrial fibrillation (HCC) Hyperlipidemia Abdominal pain Anemia Hyposmolality and/or hyponatremia Severe sepsis (HCC) Lactic acidosis Acute respiratory failure with hypoxia (HCC) Aspiration pneumonia (HCC) Acute kidney injury (HCC) ASSESSMENT & PLAN Severe sepsis/shock Secondary to severe aspiration pneumonia Likely to include hospital-acquired pathogens-sputum culture shows only normal upper respir atory nighat Continue broad-spectrum coverage Zosyn plus metronidazole With MRSA screen being negative, and recent AK I-vancomycin has been discontinued 01/13 Fever curve remains improved. White count remains normal. No change in antibiotics today. We will plan for de-escalation in the next 48 hours based on patient's stability Bacteremia Gram-negative rods -now identified as Escherichia coli -noted only in the anaerobic bottle of one set from cultures on 01/11. Other bottles negative. Questionable clinical significance. Subsequent blood cultures have been negative. Leukopenia This has resolved. White count is normal at present Rectal cancer Status post surgery on 01/03 AK I Resolved Code Status: Full Code Aubrie Linton MD 01/14/2015 onverssreekanth evans Transaction, Provider Unknown - 01/14/2015 9:00 AM PDTFormatting of this note might be di fferent from the original. Therapy Progress Note by Nba Strong PT at 01/14/15 09 Author: Nba Strong PT Service: Physical Medicine and Rehab Author Type: Physical Therapist Filed: 01/14/151906 Date of Service: 01/14/15899 Status: Signed Statistical Reporting Analyst: Nba Strong PT (Physical Therapist) 01/14/15899 PT Last Visit PT Received On 01/14/15 (remains intubated/sedated) Requires PT Follow Up On hold onver alex Transaction, Provider Unknown - 01/14/2015 7:38 AM PDT Therapy Progress Note by Celine Farnsworth OTR/Ada at 01/14/15 0738 Author: GABRIELLA Iverson/Ada Service: (none) Author Type: Occupational Therapist Filed: 01/14/15 0740 Date of Service: 01/14/15737 Status: Signed Statistical Reporting Analyst: GABRIELLA Iverson/Ada (Occupational Therapist) 01/14/15737 OT Last Visit OT Received On 01/14/15 Requires OT Follow Up On hold Other Comments Comments Pt intubated; spoke with RN who reports pt is following commands inconsistently. P ritika to keep on OT list and f/u. Plan Requires OT Follow Up On hold Dino Swann MD - 01/14/2015 2:26 AM PDTFormatting of this note might be different from the randolph ginal. Progress Notes by Dino Russo MD at 01/14/15225 Author: Dino Russo MD Service: Speech And Hearing Clinic Director Author Type: Physician Filed: 01/15/15 0730 Date of Service: 01/14/15225 Status: Addendum Statistical Reporting Analyst: Dino Russo MD (Physician) Related Notes: Original Note by Dino Russo MD (Physician) filed at 01/15/15 0554 [facility] Service: Speech And Hearing Clinic Director Progress Note Jose Eaton 64 y.o. Hospital Day: LOS: 12 days Post-Op Day: 10 Days Post-Op Consulting Physicians Treatment Team: Consulting Physician: Amy Simons MD Consulting Physician: Acute Care General Surgery Admitting Provider: Saleem Shore MD SUBJECTIVE Patient Summary: Patient is a 64-year-old male with history of rectal cancer, hyperlip idemia on chemotherapy who recently underwent a robotic low anterior resection with divertic ular loop ileostomy. This is his post operative day 9. The patient was noted to have decreas ed urine output but his IV ostomy was working fine. A rapid assessment team was called and t he patient was noted to be hypotensive and tachycardic. The patient was given 5 L of crystal loids with significant improvement in his blood pressure but the patient became very tachypn eic. A stat blood gas revealed metabolic acidosis along with lactic acidosis. The patient sh owed signs of respiratory fatigue , increasing oxygen requirement and confusion and was subs equently intubated without any problem. He was given 2 pushes of bicarbonate. A post intubat ion chest x-ray revealed right-sided pneumonia. The patient has been complaining of thirst since morning and has been febrile and tachycard ic. He denied any significant pain but had significant nausea and vomiting. The patient was being planned for starting TPN today. ICU Timeline: 01/12/2015 right ij TLC , arterial line Events Overnight: The patient went back to atrial fibrillation. He is off pressors. Continues to be diuresed. Received 20 mg of Lasix during the day and 20 mg of Lasix in the night. FiO2 remains stable but he continues to fail breathing trial at 8/8/30%. The f/vt is much improved. The dobutamine was tapered off resulting in decrease in the mean arterial pressure and urine output. It was restarted with normalization of urine output. . SCHEDULED MEDICATIONS atorvastatin 40 mg Oral Nightly chlorhexidine gluconate 15 mL Mouth/Throat Q12H digoxin 0.125 mg Oral Daily fat emulsion 250 mL Intravenous Daily heparin (porcine) 5000 unit/0.5mL 5,000 Units Subcutaneous Q8H metronidazole 500 mg Intravenous Q8H nystatin 5 mL Oral 4x Daily pantoprazole 40 mg Intravenous QAM AC piperacillin-tazobactam 3.375 g Intravenous Q8H thiamine (VITAMIN B1) IVPB 100 mg Intravenous Q24H CONTINUOUS INFUSIONS DOBUTamine in D5W 2 mg/mL 1.25 mcg/kg/min (01/14/152235) fentaNYL in NS 5 mcg/mL 30 mcg/hr (01/14/152110) insulin regular 1 unit/mL 6 Units/hr (01/14/15 0539) propofol 15 mcg/kg/min (01/15/15 0150) sodium chloride (IV) 30 mL/hr at 01/13/15 0800 TPN ADULT 70 mL/hr at 01/14/15 2111 OBJECTIVE VITAL SIGNS Temp: [97.6 F (36.4 C)-98.3 F (36.8 C)] 98.3 F (36.8 C) Heart Rate: [67-102] 91 Resp: [5-38] 22 BP: (85-130)/(54-74) 124/63 mmHg FiO2 : [30 %] 30 % CVP (mean): [7 mmHg-26 mmHg] 22 mmHg (01/15 06) PA catheter wave form: [-] Intake/Output Summary (Last 24 hours) at 01/15/15 0730 Last data filed at 01/15/15 0628 Gross per 24 hour Intake 3598.38 ml Output 4670 ml Net -1071.62 ml EXAM GEN: Sedated, wakes Easily, follows commands appropriately NEURO: PERRLA, EOMI, no facial asymmetry, moves all extremities well HEENT: sclerae clear, nonicteric, oral mmm, pink, no exudates NECK: supple, trachea midline HEART: RRR, S1/S2, no murmur, rub or gallop LUNGS: clear b/l, no wheezing, rales or rhonchi, symmetric chest expansion, even/unlabored respirations ABD: soft, nondistended, nontender to palpation, no masses, ileostomy, EXTR: no edema, clubbing or cyanosis SKIN: warm, dry, no rash or mottling; no e/o skin breakdown over the occiput, scapulae, elb ows, sacrum or heels LINES/TUBES: Right IJ TLC 01/12/2015, DATA Recent Labs Lab 01/15/15 0417 01/14/15 0514 01/13/15 0356 01/11/15 0441 01/10/15 0449 01/09/15 0541 WBC 6.67 11.00 10.57 < > 4.58 4.68 7.93 RBC 2.77* 2.58* 2.49* < > 3.64* 3.87* 3.85* HGB 9.5* 8.3* 8.4* < > 12.4* 13.3 13.2 HCT 27.2* 25.3* 24.4* < > 35.9* 38.1* 37.6* MCV 98.2 97.9 97.8 < > 98.7 98.6 97.8 MCH 34.5* 32.0 33.8 < > 34.0 34.4* 34.4* MCHC 35.1 32.7 34.5 < > 34.5 34.9 35.2 RDW 44.2 42.4 41.6 < > 41.1 40.3 39.4 PLT 105* 121* 154 < > 266 256 223 MPV 9.2 8.9 8.5 < > 8.6 8.4 8.7 BANDSABS 0.47* 0.88* 3.38* < > -- -- -- NEUTROABS -- -- -- -- 3.36 3.48 6.70 LYMPHSABS -- -- -- -- 0.39* 0.29* 0.41* MONOSABS -- -- -- -- 0.63 0.70 0.59 BASOSABS -- -- -- -- 0.02 0.02 0.04 EOSABS -- -- -- -- 0.19 0.20 0.18 MORPH RBC AND PLT MORPHOLOGY APPEAR NORMAL RBC AND PLT MORPHOLOGY APPEAR NORMAL RBC AND PLT MORPHOLOGY APPEAR NORMAL < > -- -- -- < > = values in this interval not displayed. Recent Labs Lab 01/15/15 0417 01/14/15 1858 01/14/15 0514 01/13/15 0356 01/12/15 0244 NA 142 -- 137 135 < > 141 K 3.1* 3.0* 3.2* 3.5 < > 3.8 CL 110* -- 107 105 < > 113* CO2 31 -- 25 23 < > 19* ANIONGAP 5 -- 9 11 < > 12 GLUF 95 -- 111* 130* < > 92 BUN 26* -- 26* 15 < > 17 CREATININE 0.61* -- 0.76 0.72 < > 1.0 BCR 43 -- 34 21 < > 17 CA 7.4* -- 7.5* 7.8* < > 6.5* ALB -- -- -- -- -- 1.8* GLOB -- -- -- -- -- 2.7 AG -- -- -- -- -- 0.7* PROT -- -- -- -- -- 4.6* BILITOT -- -- -- -- -- 1.4 ALT -- -- -- -- -- 16 AST -- -- -- -- -- 19 EGFR >60 -- >60 >60 < > >60 PHOS 1.4* 2.3 1.6* 1.2* -- 2.4 MG 2.3 2.0 2.3 1.9 < > 1.3* < > = values in this interval not displayed. No results for input(s): INR in the last 168 hours. 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 Continue low-dose dobutamine Continue Zosyn, vancomycin. The cultures have been negative PULM: Aspiration pneumonia Acute hypoxic respiratory failure due to aspiration pneumonia Continue mechanical ventilation . Peak airway pressure< 30 , tidal voulme 8cc/kg Titrate Fio2 to keep SPo2>90% Aspiration precautions Continue Zosyn, vancomycin Failed spontaneous breathing trial Daily spontaneous breathing trials GI/NUTRITION: Continue TPN Rectal cancer status post resection with loop ileostomy, surgery follow-up appreciated RENAL/LYTES: Will watch the urine output and electrolytes . Replace as needed; Hypokalemia - replace pottasium ID: Please see above HEME: Anemia most likely dilutional/phlebotomy No signs of bleeding ENDO: Monitor the blood sugar goal 120-180 MUSC/SKIN: Early mobility PROPHYLAXIS: Stress ulcer prophylaxis: Pantoprazole DVT prophylaxis: Heparin subcutaneous, SCD VAP bundle: chlorhexadine oral care, HOB >30 degrees. Disposition: We will continue to monitor the patient in the ICU Code Status: Full Code *Please bill 50 minutes of critical care time spent evaluating the patient, reviewing the d jose guadalupe and formulating a plan exclusive of all other procedures. Dino Russo MD 01/15/2015 Saleem Rodriguez MD - 01/13/2015 7:46 PM PDT Progress Notes by Saleem Shore MD at 01/13/151945 Author: Saleem Shore MD Service: General Surgery Author Type: Physician Filed: 01/14/15 1129 Date of Service: 01/13/151945 Status: Signed Statistical Reporting Analyst: Saleem Shore MD (Physician) [facility] Service: Colon & Rectal Surgery Progress Note Hospital Day: LOS: 10 days Post-Op Day: 9 Day Post-Op SUBJECTIVE Patient Summary: S/P Coloanal pull-through for low rectal cancer. Events Overnight: acute respiratory distress, fever and hypotension, intubated and is currently in the ICU, remains hypotensive, Afib with RVR Scheduled Medications atorvastatin 40 mg Oral Nightly chlorhexidine gluconate 15 mL Mouth/Throat Q12H digoxin 0.25 mg Intravenous Q6H [START ON 01/15/2015] digoxin 0.125 mg Oral Daily fat emulsion 250 mL Intravenous Daily heparin (porcine) 5000 unit/0.5mL 5,000 Units Subcutaneous Q8H hydrocortisone sodium succinate PF 100 mg Intravenous Q8H metronidazole 500 mg Intravenous Q8H nystatin 5 mL Oral 4x Daily pantoprazole 40 mg Intravenous QAM AC piperacillin-tazobactam 3.375 g Intravenous Q8H thiamine (VITAMIN B1) IVPB 100 mg Intravenous Q24H Continuous Infusions amiodarone infusion 1 mg/min (01/13/15 0800) DOBUTamine in D5W 2 mg/mL 0.5 mcg/kg/min (01/13/15 1041) fentaNYL in NS 5 mcg/mL 50 mcg/hr (01/13/15 1601) insulin regular 1 unit/mL 7 Units/hr (01/13/15 0045) norepinephrine in D5W 64 mcg/mL 12 mcg/min (01/13/151837) phenylephrine in NS 320 mcg/mL 20 mcg/min (01/13/151837) propofol 15 mcg/kg/min (01/13/15 0800) sodium chloride (IV) 30 mL/hr at 01/13/15 0800 TPN ADULT TPN ADULT vasopressin in NS 0.4 unit/mL 0.04 Units/min (01/13/15 0800) PRN Medications acetaminophen OR acetaminophen, dextrose, dextrose, HYDROcodone-acetaminophen OR HY DROcodone-acetaminophen, lip moisturizer, magnesium sulfate OR magnesium sulfate OR magnesium sulfate, midazolam, morphine OR morphine OR morphine, nystatin, nystatin, [DISCONTINUED] ondansetron OR ondansetron, petrolatum, polyethylene glycol, potassium ch loride OR potassium chloride OR potassium chloride, promethazine sodium chloride 0.9 %, sodium phosphate IVPB 15 mmol OR sodium phosphate IVPB 30 mmol, zolpidem OBJECTIVE Vital Signs: BP 97/71 mmHg | Pulse 100 | Temp(Src) 98 F (36.7 C) (Axillary) | Resp 8 | Ht 1.626 m (5 ' 4") | Wt 81.4 kg (179 lb 7.3 oz) | BMI 30.79 kg/m2 | SpO2 100% Temp: [97.9 F (36.6 C)-99.4 F (37.4 C)] 98 F (36.7 C) (01/14 1600) BP: (64-108)/(42-75) 97/71 mmHg (01/13 1845) Heart Rate: [92-162] 100 (01/13 1900) Resp: [0-29] 8 (01/13 1900) SpO2: [97 %-100 %] 100 % (01/13 1900) Height: [162.6 cm (5' 4")] 162.6 cm (5' 4") (01/13 335) Weight: [81.4 kg (179 lb 7.3 oz)] 81.4 kg (179 lb 7.3 oz) (01/13 430) FiO2 : [35 %-45 %] 35 % (01/14 1600) Physical Exam Constitutional: He appears well-developed and well-nourished. He is intubated. HENT: Head: Atraumatic. Eyes: Pupils are equal, round, and reactive to light. Neck: Neck supple. Pulmonary/Chest: He is intubated. Abdominal: Soft. He exhibits no distension. There is no tenderness. Genitourinary: Neurological: He is alert. Follows command Skin: Skin is warm. He is not diaphoretic. Vitals reviewed. DATA CBC: Lab Results Component Value Date WBC 10.57 01/13/2015 RBC 2.49* 01/13/2015 HGB 8.4* 01/13/2015 HCT 24.4* 01/13/2015 MCV 97.8 01/13/2015 MCH 33.8 01/13/2015 MCHC 34.5 01/13/2015 RDW 41.6 01/13/2015 PLT 154 01/13/2015 MPV 8.5 01/13/2015 DIFFTYPE MANUAL 01/13/2015 BMP: Lab Results Component Value Date NA 135 01/13/2015 K 3.5 01/13/2015 CL 105 01/13/2015 CO2 23 01/13/2015 ANIONGAP 11 01/13/2015 GLUF 130* 01/13/2015 BUN 15 01/13/2015 CREATININE 0.72 01/13/2015 BCR 21 01/13/2015 CA 7.8* 01/13/2015 EGFR >60 01/13/2015 Magnesium: Lab Results Component Value Date MG 1.9 01/13/2015 Phosphorus: Lab Results Component Value Date PHOS 1.2* 01/13/2015 PROBLEM LIST Principal Problem: Atrial fibrillation with RVR (HCC) Active Problems: Rectal cancer (HCC) Persistent atrial fibrillation (HCC) Hyperlipidemia Abdominal pain Anemia Hyposmolality and/or hyponatremia Severe sepsis (HCC) Lactic acidosis Acute respiratory failure with hypoxia (HCC) Aspiration pneumonia (HCC) Acute kidney injury (HCC) ASSESSMENT & PLAN S/P Coloanal pull-through for low rectal cancer POD#9. Developed likely aspiration pneumo faye and sepsis. On supportive treatment and broad spectrum abx in the ICU. Afib with RVR and hypotensive on pressors, started on amiodarone and digoxin. Disposition: Code Status: Full Code Saleem Shore MD 01/13/2015 onversion Transac tion, Provider Unknown - 01/13/2015 3:55 PM PDTFormatting of this note might be different f rom the original. Therapy Progress Note by IRAM Iverson at 01/13/15 0711 Author: IRAM Iverson Service: (none) Author Type: Occupational Therapist Filed: 01/13/15 5725 Date of Service: 01/13/151554 Status: Signed Statistical Reporting Analyst: IRAM Iverson (Occupational Therapist) 01/13/15 4389 OT Last Visit OT Received On 01/13/15 Requires OT Follow Up On hold Other Comments Comments Spoke with RN; Pt continues to be On hold. Will f/u on 01/14 Plan Requires OT Follow Up On hold onver alex Transaction, Provider Unknown - 01/13/2015 2:20 PM PDT Progress Notes by Anna Suresh RD, CD at 01/13/151419 Author: Anna Suresh RD, CD Service: (none) Author Type: Registered Dietitian Filed: 01/13/151419 Date of Service: 01/13/151419 Status: Signed Statistical Reporting Analyst: Anna Suresh RD, KENISHA (Registered Dietitian) 01/13/15 1411 Subjective Timepoint Follow up (adjust TPN) Pt c/o Pt remains intubated. Ostomy output now decreasing and consistently is thicker per R N. Fluid / Beverage Intake Oral Fluids Amount NPO Food Intake Amount of Food NPO Parenteral Nutrition Intake Access PICC Rate/Solution TPN (D23%, AA 6%) at 50 mL/hr plus lipids 20% 250 mL daily. Bicarb drip in D5 W has been discontinued. Propofol is still running at 6.5 mL/hr which provides approximately 172 kcal/day. Micronutrient Intake Vitamin Intake Thiamin Biochemical data, medical tests, and procedures reviewed Biochemical data, medical tests, and procedures reviewed BG has been elevated in the 100-20 0s, insulin drip ordered. Phos 1.2 (L) - replacement ordered. Recommendations Recommended parenteral nutritional needs for pharmacy Recommend changing TPN to D18%, AA 6% with goal rate of 75 mL/hr plus lipids 20% 250 mL daily. This will provide 2032 kcal, 108 g protein, 1602 NPC, and 2050 mL total volume. Overall, TF plus propofol will provide a total of 2204 kcal and 108 g protein which supplies 30 kcal/kg and 1.5 g protein/kg. If propofol rate is increase, may need to D/C lipids or administer only every other day to avoid excessi ve fat intake. Recommended energy needs Initiate trickle feeds via OG tube when indicated and advance as t olerated. Will f/u to provide TF goals if needed. Nutritional Risk Nutritional risk High Follow up date 01/16/[address], CD, [facility] 01/13/2015 onver alex Transaction, Provider Unknown - 01/13/2015 1:41 PM PDT Case Management by BRIA Lima at 01/13/15 1965 Author: BRIA Lima Service: (none) Author Type: Tube Bender Hand Filed: 01/13/15 1440 Date of Service: 01/13/151340 Status: Signed Statistical Reporting Analyst: BRIA Lima (Tube Bender Hand) Attended care conference with Dr. Vega, pension fund manager, pt's brother and pt's friend. Dr. Vega explained why pt was brought to the ICU and his current status of being critical but she feels that in time he should do ok. Brither and friend had to emote several times abou t their concerns that they were not called by staff when pt was brought to the ICU. We apol ogized to them and tried to reassure them that while in the ICU if anything should happen we will call them immediately. We asked them to put their names and numbers on pt's white boa rd in his room. I wrote a letter for pt's brother's employer per his request to inform that pt is ill in the ICU and to notify that brother plans to stay at the bedside for a few days . Brother: Gustabo Eaton [phone] (c) [phone] (w) Friend: Hector Stone [phone] line Liu RPH - 01/13/2015 12:38 PM PDTFormatting of this note might be different from t he original. Progress Notes by Aline Cabrales RPH at 01/13/15 8878 Author: Aline Cabrales RPH Service: (none) Author Type: Pharmacist Filed: 01/13/15 1238 Date of Service: 01/13/15 1238 Status: Signed Statistical Reporting Analyst: Aline Cabrales RPH (Pharmacist) Clinical Pharmacy Note - TPN Blood glucose running high overnight; patient changed to insulin Endotool drip. Will remove insulin from TPN at this time. Dining Room Busser suggested formula change to decrease daily dextrose. Recommendation: Dextrose 12% /Amino Acids 6% @ 70 mL/hr. Will change to this formulation this evening. Phos low today (1.2). Replaced with 30 mmol sodium phos IV x 1 per protocol. Will increase phos in TPN formulation tonight as well. Several other electrolytes are borderline low today. TPN rate will increase from 50 to 70 m L/hr tonight which will increase total daily electrolytes. No other changes indicated at this time. Pharmacy will continue to monitor and adjust as ap propriate. Pharmacist: Aline Cabrales 01/13/2015 12:37 PM onverssreekanth evans Transaction, Provider Unknown - 01/13/2015 10:31 AM PDTFormatting of this note might be di fferent from the original. Case Management by BRIA Lima at 01/13/15 1031 Author: BRIA Lima Service: (none) Author Type: Tube Bender Hand Filed: 01/13/15 1049 Date of Service: 01/13/15 1031 Status: Addendum Statistical Reporting Analyst: BRIA Lima (Tube Bender Hand) Related Notes: Original Note by BRIA Lima (Tube Bender Hand) filed at 01/13/15 1034 Attended morning rounds. Pt was transferred to the ICU after a RAT was called on the acute care floor. Pt is now vented. Per family nurse practitioner is cymro speaking only. Originally pt was planned to go home with [facility]. SBT to occur today. CM to follow. Arranged for care conference at 1300 today. Program Strategist notified and pension fund manager called. onver alex Transaction, Provider Unknown - 01/13/2015 8:11 AM PDT Therapy Progress Note by Nba Strong PT at 01/13/15 0811 Author: Nba Strong PT Service: Physical Medicine and Rehab Author Type: Physical Therapist Filed: 01/13/15 1206 Date of Service: 01/13/15 0811 Status: Signed Statistical Reporting Analyst: Nba Strong PT (Physical Therapist) 01/13/15 0811 PT Last Visit PT Received On 01/13/15 Requires PT Follow Up On hold (remains a hold) ubrie Linton MD - 01/13/2015 8:06 AM PDT Progress Notes by Aubrie Linton MD at 01/13/15805 Author: Aubrie Linton MD Service: Infectious Disease Author Type: Physician Filed: 01/13/15 1037 Date of Service: 01/13/15805 Status: Signed Statistical Reporting Analyst: Aubrie Linton MD (Physician) [facility] Service: Infectious Disease Progress Note Hospital Day: LOS: 10 days Post-Op Day: 10 Days Post-Op SUBJECTIVE Patient Summary: 64-year-old with rectal cancer, status post chemoradiation, status post robotic resection, ileostomy on 01/03. Had an episode of vomiting on 01/11, and also dillan gnosed with partial SBO. It appears that patient was noncompliant with nothing by mouth stat us and may have aspirated. He was brought to the ICU with respiratory failure intubated and ventilated. Started on IV Zosyn plus vancomycin plus metronidazole. On press source. Events Overnight: Patient remains critically ill, intubated and ventilated. Scheduled Medications atorvastatin 40 mg Oral Nightly chlorhexidine gluconate 15 mL Mouth/Throat Q12H docusate sodium 100 mg Oral BID Or docusate 100 mg Per OG Tube BID fat emulsion 250 mL Intravenous Daily heparin (porcine) 5000 unit/0.5mL 5,000 Units Subcutaneous Q8H hydrocortisone sodium succinate PF 100 mg Intravenous Q8H insulin aspart 0-16 Units Subcutaneous 4 times per day insulin regular 1 unit/mL 1-50 Units Intravenous Bolus from Bag megestrol 400 mg Oral Daily metronidazole 500 mg Intravenous Q8H pantoprazole 40 mg Intravenous QAM AC piperacillin-tazobactam 3.375 g Intravenous Q8H sodium chloride (bolus) 500 mL Intravenous Once thiamine (VITAMIN B1) IVPB 100 mg Intravenous Q24H vancomycin 17 mg/kg Intravenous Q12H Continuous Infusions amiodarone infusion 1 mg/min (01/13/15 0700) dextrose 5 % and 0.9 % NaCl Stopped (01/13/15 0016) DOBUTamine in D5W 2 mg/mL 2.5 mcg/kg/min (01/13/15 0040) EPINEPHrine in D5W 32 mcg/mL Stopped (01/12/15 1827) fentaNYL in NS 5 mcg/mL 25 mcg/hr (01/12/15 1217) insulin regular 1 unit/mL 7 Units/hr (01/13/15 0045) norepinephrine in D5W 64 mcg/mL 12 mcg/min (01/13/15 0539) propofol sodium bicarbonate drip 100 mEq/1000 mL Stopped (01/13/154) sodium chloride (IV) 30 mL/hr at 01/13/15 0030 TPN ADULT 50 mL/hr at 01/12/15 2138 vasopressin in NS 0.4 unit/mL 0.03 Units/min (01/13/1510) PRN Medications acetaminophen OR acetaminophen, dextrose, dextrose, HYDROcodone-acetaminophen OR HY DROcodone-acetaminophen, lip moisturizer, magnesium sulfate OR magnesium sulfate OR magnesium sulfate, metoclopramide, morphine OR morphine OR morphine, nystatin, nysta tin, [DISCONTINUED] ondansetron OR ondansetron, petrolatum, polyethylene glycol, potassi um chloride OR potassium chloride OR potassium chloride, promethazine sodium chloride 0.9 %, sodium phosphate IVPB 15 mmol OR sodium phosphate IVPB 30 mmol, zolpidem OBJECTIVE Vital Signs: BP 81/58 mmHg | Pulse 138 | Temp(Src) 99.4 F (37.4 C) (Oral) | Resp 20 | Ht 1.626 m (5' 4") | Wt 81.4 kg (179 lb 7.3 oz) | BMI 30.79 kg/m2 | SpO2 98% Temp: [97.4 F (36.3 C)-99.4 F (37.4 C)] 99.4 F (37.4 C) (01/14 400) BP: (64-115)/(42-74) 81/58 mmHg (01/13 700) Heart Rate: [90-162] 138 (01/13 701) Resp: [0-41] 20 (01/13 701) SpO2: [97 %-100 %] 98 % (01/13 701) Height: [162.6 cm (5' 4")] 162.6 cm (5' 4") (01/13 335) Weight: [81.4 kg (179 lb 7.3 oz)] 81.4 kg (179 lb 7.3 oz) (01/13 0430) FiO2 : [35 %-50 %] 35 % (01/13 0701) GENERAL: vitals reviewed. Patient intubated and ventilated HEENT: conjunctivae normal. No icterus. External ears appear normal. NECK: Central line in place. ET tube in place. LUNGS: Ventilated delivered breath sounds HEART : Normal heart sounds . No significant murmur or rub ABDOMEN: Postsurgical abdomen. Bowel sounds appreciated. PERIPHERIES: Positive for edema, no varicosities or ulcers SKIN: no rash. No areas of cellulitis JOINTS: no swelling or obvious inflammation noted. NEURO: Unable to assess PSYCH: Unable to assess HEME ; No significant bleeding or Clots on exam IV SITE: clean without any obvious purulence DATA CBC: Lab Results Component Value Date WBC 10.57 01/13/2015 RBC 2.49* 01/13/2015 HGB 8.4* 01/13/2015 HCT 24.4* 01/13/2015 MCV 97.8 01/13/2015 MCH 33.8 01/13/2015 MCHC 34.5 01/13/2015 RDW 41.6 01/13/2015 PLT 154 01/13/2015 MPV 8.5 01/13/2015 DIFFTYPE MANUAL 01/13/2015 WBC: Lab Results Component Value Date WBC 10.57 01/13/2015 NEUTABSMAN 6.87 01/13/2015 NEUTROABS 3.36 01/11/2015 NEUTROMAN 65 01/13/2015 LYMPHOABS 0.11* 01/13/2015 LYMPHOMAN 1 01/13/2015 LYMPHSABS 0.39* 01/11/2015 LYMPHOPCT 8.54 01/11/2015 MONOABSMAN 0.14 01/12/2015 MONOMAN 4 01/12/2015 MONOPCT 13.66 01/11/2015 EOSABS 0.19 01/11/2015 EOSPCT 4.07 01/11/2015 BASOSABS 0.02 01/11/2015 BASOPCT 0.38 01/11/2015 BANDSPCT 32 01/13/2015 METAABS 0.21* 01/13/2015 METAPCT 2 01/13/2015 CMP: Lab Results Component Value Date NA 135 01/13/2015 K 3.5 01/13/2015 CL 105 01/13/2015 CO2 23 01/13/2015 ANIONGAP 11 01/13/2015 GLUF 130* 01/13/2015 BUN 15 01/13/2015 CREATININE 0.72 01/13/2015 BCR 21 01/13/2015 CA 7.8* 01/13/2015 PROT 4.6* 01/12/2015 ALB 1.8* 01/12/2015 GLOB 2.7 01/12/2015 BILITOT 1.4 01/12/2015 ALP 72 01/12/2015 AST 19 01/12/2015 ALT 16 01/12/2015 EGFR >60 01/13/2015 LDH: Lab Results Component Value Date LDH 134 01/11/2015 CPK: Lab Results Component Value Date CKTOTAL 157 01/05/2015 Sputum culture Status: Preliminary result Visible to patient: Not Released Next appt: 01/24/2015 at 08:15 AM in Hematology and Oncology ([facility] NURSE) 01/12/15 7:55 AM Specimen Description SPUTUMP GRAM STAIN GREATER THAN 10 WBCS/LPFP GRAM STAIN LESS THAN 10 SEC/LPFP GRAM STAIN 1+P GRAM STAIN GRAM POSITIVE COCCIP GRAM STAIN Testing performed at [facility], [address], [place] [address]Q CULTURE PENDINGP Resulting Agency [facility] Specimen Collected: 01/12/15 7:55 AM Impression 1. Stable right perihilar and basilar airspace disease. 2. Mild stable left basilar opacity to likely represent subsegmental atelectasis. X-ray chest 1 view [[id number]] PROBLEM LIST Principal Problem: Atrial fibrillation with RVR (HCC) Active Problems: Rectal cancer (HCC) Persistent atrial fibrillation (HCC) Hyperlipidemia Abdominal pain Anemia Hyposmolality and/or hyponatremia Severe sepsis (HCC) Lactic acidosis Acute respiratory failure with hypoxia (HCC) Aspiration pneumonia (HCC) Acute kidney injury (HCC) ASSESSMENT & PLAN Severe sepsis/shock Secondary to severe aspiration pneumonia Likely to include hospital-acquired pathogens Continue broad-spectrum coverage Zosyn plus metronidazole With MRSA screen being negative, and recent AK I-we will discontinue vancomycin. Fever curve improved today-we will watch clinical course and determine further deescalation . Bacteremia Gram-negative rods noted only in the anaerobic bottle of one set from cultures on 01/11. Ot her bottles negative. Questionable clinical significance Leukopenia This has resolved. White count is normal today Rectal cancer Status post surgery on 01/03 AK I Resolved Discussed with Dr. Asya Vega Code Status: Full Code Aubrie Linton MD 01/13/2015 onversio n Transaction, Provider Unknown - 01/13/2015 4:05 AM PDTFormatting of this note might be di fferent from the original. Progress Notes by Suad Alvarez RPH at 01/13/15404 Author: Suad Alvarez RPH Service: (none) Author Type: Pharmacist Filed: 01/13/15404 Date of Service: 01/13/15404 Status: Signed Statistical Reporting Analyst: Suad Alvarez RPH (Pharmacist) Clinical Pharmacy Note: Pharmacy Dosing Vancomycin; Day 2 Weight: 76 kg CREATININE: 0.84 (01/12/15 2323) Estimated creatinine clearance - 80.6 mL/min INDICATION: Aspiration pneumonia, severe sepsis. Recent level drawn 01/12 at 2323 (about 11 hours after 2nd dose) - 10.39 mcg/mL; Less aparna n goal 15 to 20 mcg/mL. Will continue Vancomycin 1250 mg (16.4 mg/kg) IV Q12H. Next level due 01/14 at 0100. Suad Alvarez PharmD 01/13/2015 4:04 AM Dino Swann MD - 01/13/2015 2:50 AM PDTFormatting of this note might be different from the randolph ginal. Progress Notes by Dino Russo MD at 01/13/15249 Author: Dino Russo MD Service: Speech And Hearing Clinic Director Author Type: Physician Filed: 01/13/152131 Date of Service: 01/13/15249 Status: Signed Statistical Reporting Analyst: Dino Russo MD (Physician) [facility] Service: Speech And Hearing Clinic Director Progress Note Jose Eaton 64 y.o. Hospital Day: LOS: 10 days Post-Op Day: 10 Days Post-Op Consulting Physicians Treatment Team: Consulting Physician: Amy Simons MD Admitting Provider: Saleem Shore MD SUBJECTIVE Patient Summary: Patient is a 64-year-old male with history of rectal cancer, hyperlip idemia on chemotherapy who recently underwent a robotic low anterior resection with divertic ular loop ileostomy. This is his post operative day 9. The patient was noted to have decreas ed urine output but his IV ostomy was working fine. A rapid assessment team was called and t he patient was noted to be hypotensive and tachycardic. The patient was given 5 L of crystal loids with significant improvement in his blood pressure but the patient became very tachypn eic. A stat blood gas revealed metabolic acidosis along with lactic acidosis. The patient sh owed signs of respiratory fatigue , increasing oxygen requirement and confusion and was subs equently intubated without any problem. He was given 2 pushes of bicarbonate. A post intubat ion chest x-ray revealed right-sided pneumonia. The patient has been complaining of thirst since morning and has been febrile and tachycard ic. He denied any significant pain but had significant nausea and vomiting. The patient was being planned for starting TPN today. ICU Timeline: 01/12/2015 right ij TLC , arterial line Events Overnight: The patient remained hypotensive with high requirement of pressors. Echo revealed reduced ejection fraction. Started on dobutamine with improvement in the bl ood pressure would decrease requirement of pressors. Develop atrial fibrillation with rapid ventricular rate. He received 5 mg atenolol with no change. Continued to be hypotensive. The dobutamine drip was decreased, amiodarone bolus with drip started, given digoxin. Lucy ent converted to sinus rhythm. Pressor requirement reducing. FiO2 requirement significantl y lower. SCHEDULED MEDICATIONS atorvastatin 40 mg Oral Nightly chlorhexidine gluconate 15 mL Mouth/Throat Q12H docusate sodium 100 mg Oral BID Or docusate 100 mg Per OG Tube BID fat emulsion 250 mL Intravenous Daily heparin (porcine) 5000 unit/0.5mL 5,000 Units Subcutaneous Q8H hydrocortisone sodium succinate PF 100 mg Intravenous Q8H insulin aspart 0-16 Units Subcutaneous 4 times per day insulin regular 1 unit/mL 1-50 Units Intravenous Bolus from Bag megestrol 400 mg Oral Daily metronidazole 500 mg Intravenous Q8H pantoprazole 40 mg Intravenous QAM AC piperacillin-tazobactam 3.375 g Intravenous Q8H sodium chloride (bolus) 500 mL Intravenous Once thiamine (VITAMIN B1) IVPB 100 mg Intravenous Q24H vancomycin 17 mg/kg Intravenous Q12H CONTINUOUS INFUSIONS dextrose 5 % and 0.9 % NaCl Stopped (01/13/15 0016) DOBUTamine in D5W 2 mg/mL 2.5 mcg/kg/min (01/13/15 0040) EPINEPHrine in D5W 32 mcg/mL Stopped (01/12/157) fentaNYL in NS 5 mcg/mL 25 mcg/hr (01/12/15 1217) insulin regular 1 unit/mL 7 Units/hr (01/13/155) norepinephrine in D5W 64 mcg/mL 10 mcg/min (01/13/158) propofol sodium bicarbonate drip 100 mEq/1000 mL Stopped (01/13/154) sodium chloride (IV) 30 mL/hr at 01/13/15 0030 TPN ADULT 50 mL/hr at 01/12/158 vasopressin in NS 0.4 unit/mL Stopped (01/13/15 0232) OBJECTIVE VITAL SIGNS Temp: [97.4 F (36.3 C)-99.3 F (37.4 C)] 98.1 F (36.7 C) Heart Rate: [90-109] 100 Resp: [0-41] 20 BP: (70-115)/(37-74) 102/68 mmHg FiO2 : [40 %-50 %] 40 % CVP (mean): [18 mmHg-226 mmHg] 20 mmHg (01/13 0200) PA catheter wave form: [-] Intake/Output Summary (Last 24 hours) at 01/13/15 0250 Last data filed at 01/13/15 0154 Gross per 24 hour Intake 9831.89 ml Output 1955 ml Net 7876.89 ml EXAM GEN: awake, alert, NEURO: PERRLA, EOMI, no facial asymmetry, moves all extremities well HEENT: sclerae clear, nonicteric, oral mmm, pink, no exudates NECK: supple, trachea midline HEART: RRR, S1/S2, no murmur, rub or gallop LUNGS: clear b/l, no wheezing, rales or rhonchi, symmetric chest expansion, even/unlabored respirations ABD: soft, nondistended, nontender to palpation, no masses, ileostomy, EXTR: no edema, clubbing or cyanosis SKIN: warm, dry, no rash or mottling; no e/o skin breakdown over the occiput, scapulae, elb ows, sacrum or heels LINES/TUBES: Right IJ TLC 01/12/2015, right radial arterial line 01/12/2015 DATA Recent Labs Lab 01/13/15 0356 01/12/1524301/11/15200701/11/[id number]/10/1544801/09/15 0541 WBC 10.57 3.38* 4.17 4.58 4.68 7.93 RBC 2.49* 2.62* 3.51* 3.64* 3.87* 3.85* HGB 8.4* 8.9* 12.1* 12.4* 13.3 13.2 HCT 24.4* 26.1* 34.3* 35.9* 38.1* 37.6* MCV 97.8 99.8 97.9 98.7 98.6 97.8 MCH 33.8 34.1* 34.4* 34.0 34.4* 34.4* MCHC 34.5 34.2 35.1 34.5 34.9 35.2 RDW 41.6 41.6 41.6 41.1 40.3 39.4 PLT 154 173 252 266 256 223 MPV 8.5 8.6 7.8 8.6 8.4 8.7 BANDSABS 3.38* 1.05* -- -- -- -- NEUTROABS -- -- -- 3.36 3.48 6.70 LYMPHSABS -- -- -- 0.39* 0.29* 0.41* MONOSABS -- -- -- 0.63 0.70 0.59 BASOSABS -- -- -- 0.02 0.02 0.04 EOSABS -- -- -- 0.19 0.20 0.18 MORPH RBC AND PLT MORPHOLOGY APPEAR NORMAL 1+ RBC AND PLT MORPHOLOGY APPEAR NORMAL -- -- -- Recent Labs Lab 01/13/15 0356 01/12/15 2323 01/12/15 1000 01/12/15 0631 01/12/1524301/11/15440 NA 135 136 -- 140 141 < > 129* K 3.5 3.1* -- 3.8 3.8 < > 4.1 CL 105 105 -- 114* 113* < > 100 CO2 23 22* -- 17* 19* < > 23 ANIONGAP 11 12 -- 13 12 < > 10 GLUF 130* 245* -- 96 92 < > 135* BUN 15 15 -- 17 17 < > 12 CREATININE 0.72 0.84 -- 1.00 1.0 < > 0.67* BCR 21 18 -- 17 17 < > 18 CA 7.8* 7.3* -- 6.7* 6.5* < > 8.8 ALB -- -- -- -- 1.8* -- -- GLOB -- -- -- -- 2.7 -- -- AG -- -- -- -- 0.7* -- -- PROT -- -- -- -- 4.6* -- -- BILITOT -- -- -- -- 1.4 -- -- ALT -- -- -- -- 16 -- -- AST -- -- -- -- 19 -- -- EGFR >60 >60 -- >60 >60 < > >60 PHOS 1.2* -- -- -- 2.4 -- 2.8 MG 1.9 2.0 1.6* -- 1.3* -- 1.9 < > = values in this interval not displayed. No results for input(s): INR in the last 168 hours. 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 The cultures have been negative PULM: Aspiration pneumonia Acute hypoxic respiratory failure due to aspiration pneumonia Continue mechanical ventilation . Peak airway pressure< 30 , tidal voulme 8cc/kg Titrate Fio2 to keep SPo2>90% Aspiration precautions Continue Zosyn, vancomycin GI/NUTRITION: Continue TPN Rectal cancer status post resection with loop ileostomy, surgery follow-up appreciated RENAL/LYTES: No issues ID: Please see above HEME: Anemia most likely dilutional No signs of bleeding ENDO: Monitor the blood sugar goal 120-180 MUSC/SKIN: Early mobility PROPHYLAXIS: Stress ulcer prophylaxis: Pantoprazole DVT prophylaxis: Heparin subcutaneous, SCD VAP bundle: chlorhexadine oral care, HOB >30 degrees. Disposition: We will continue to monitor the patient in the ICU Code Status: Full Code *Please bill 50 minutes of critical care time spent evaluating the patient, reviewing the d jose guadalupe and formulating a plan exclusive of all other procedures. Dino Russo MD 01/13/2015 onversion Transaction , Provider Unknown - 01/12/2015 5:38 PM PDT Progress Notes by Anna Suresh RD, CD at 01/12/151737 Author: Anna Suresh RD, CD Service: (none) Author Type: Registered Dietitian Filed: 01/12/151737 Date of Service: 01/12/151737 Status: Signed Statistical Reporting Analyst: Anna Suresh RD, CD (Registered Dietitian) 01/12/15 2918 Subjective Timepoint Follow up (routine ICU admit consult, TPN) Pt c/o POD #9 s/p coloanal pull-through for low rectal cancer. Pt was transferred to ICU wi th likely aspiration pneumonia and sepsis. Currently intubated and sedated. Started on TPN l ast night. Fluid / Beverage Intake Oral Fluids Amount NPO Food Intake Amount of Food NPO. Intake prior to transfer to ICU had been very limited, 10-25% of meals per nursing documentation. Parenteral Nutrition Intake Access PICC Rate/Solution TPN (D23%, AA 6%) is currently running at 25 mL/hr. Has orders to advance to 50 mL/hr this evening. Also receiving lipids 20% 250 mL daily. Propofol is currently running at 6.5 mL/hr which provides approximately 172 kcal/day. Pt is also on a Na bicarb drip in D 5W at 110 mL/hr which provides an additional 449 kcal/day from dextrose. Calories per day 1113 (at 25 mL/hr) Non Protein calories per day 969 Grams of Protein per day 36 Total Volume per day 850 mL Micronutrient Intake Vitamin Intake Thiamin Nutrition-Focused Physical Findings Overall Appearance Appears to have mild temporal and shoulder muscle wasting. Digestive System (Mouth to Rectum) Pt has had high ostomy output. OG tube has not put anyth ing out so far today. Skin Stoma is reportedly red/denuded per hot wound spring production supervisor but skin is otherwise intact with no evidence of pressure ulcers. Anthropometrics Weight change Wt noted to be up 3.5 kg overnight. Per RN, pt received fluid boluses but I/O s indicate that pt is only abut 1.4 L fluid positive. Biochemical data, medical tests, and procedures reviewed Biochemical data, medical tests, and procedures reviewed Mg 1.6 (L), electrolyte replacemen t protocol ordered. BUN and Cr are WNL. BG has been controlled in the 90s-low 100s, insulin ordered, however RN reports that last BG check was elevated in the 200s. Recommendations Recommended parenteral nutritional needs for pharmacy Recommend TPN (D12%, AA 6%) with goal rate of 70 mL/hr plus lipids 20% 250 mL daily. This will provide 1589 kcal, 101 g protein, 1185 NPC, and 1930 mL total volume. Overall, TPN with lipids plus D5W fluids and propofol wi ll provide a total of 2210 kcal and 101 g protein which supplies 30 kcal/kg and 1.4 g protei n/kg based on admit wt. If dextrose-containing IV carriers/fluids are discontinued, dextrose concentration can be increased in TPN to better meet pt's estimated kcal requirements. If p ropofol rate is increased, may need to hold lipids. Will continue to monitor clinical course and f/u as indicated. Recommended energy needs Initiate trickle feeds via OG tube when indicated and advance as t olerated. Will f/u to provide TF goals if needed. If pt is able to tolerate EN, suggest wean ing TPN off. Nutritional Risk Nutritional risk High Follow up date 01/15/15 Malnutrition Evaluation Estimated energy intake time frame 7 Days Estimated % energy intake last 7 days (!) 50 % Malnutrition in the Context Of Acute Illness Clinical Characteristics indicative of moderate malnutrition Mild muscle mass depletion;les s than 75% of EER for >7days Protein-Calorie Malnutrition Type (!) Moderate Anna Suresh RD, CD, [facility] 01/12/2015 onver alex Transaction, Provider Unknown - 01/12/2015 11:08 AM PDT Progress Notes by Yasmin Bethea RPH at 01/12/15 110 Author: Yasmin Bethea RPH Service: (none) Author Type: Pharmacist Filed: 01/12/151107 Date of Service: 01/12/151107 Status: Signed Statistical Reporting Analyst: Yasmin Bethea RPH (Pharmacist) Day 1 Vanco Tx Todays Scr= 1.0, WBC= 4.17 with estim CrCl= 67.7 ml/min. Vanco level tonight-with improving CrCl patient may Require q 12h dosing (or an extra q12h dose). Pharmacist; YASMIN BETHEA 01/12/2015 11:07 AM ilSaleem schaefer MD - 01/12/2015 10:40 AM PDT Progress Notes by Saleem Shore MD at 01/12/15 1040 Author: Saleem Shore MD Service: General Surgery Author Type: Physician Filed: 01/12/15 1044 Date of Service: 01/12/15 104 Status: Signed Statistical Reporting Analyst: Saleem Shore MD (Physician) [facility] Service: Colon & Rectal Surgery Progress Note Hospital Day: LOS: 9 days Post-Op Day: 8 Day Post-Op SUBJECTIVE Patient Summary: S/P Coloanal pull-through for low rectal cancer. Events Overnight: acute respiratory distress, fever and hypotension, intubated and is currently in the ICU Scheduled Medications atorvastatin 40 mg Oral Nightly chlorhexidine gluconate 15 mL Mouth/Throat Q12H docusate sodium 100 mg Oral BID Or docusate 100 mg Per OG Tube BID fat emulsion 250 mL Intravenous Daily heparin (porcine) 5000 unit/0.5mL 5,000 Units Subcutaneous Q8H hydrocortisone sodium succinate PF 100 mg Intravenous Q8H insulin aspart 0-16 Units Subcutaneous 4 times per day megestrol 400 mg Oral Daily metronidazole 500 mg Intravenous Q8H pantoprazole 40 mg Intravenous QAM AC piperacillin-tazobactam 3.375 g Intravenous Q8H sodium chloride (PF) thiamine (VITAMIN B1) IVPB 100 mg Intravenous Q24H vancomycin 17 mg/kg Intravenous Q12H [START ON 01/13/2015] vancomycin 17 mg/kg Intravenous Q24H Continuous Infusions dextrose 5 % and 0.9 % NaCl 110 mL/hr at 01/11/15 1511 EPINEPHrine in D5W 32 mcg/mL 5 mcg/min (01/12/15 0847) fentaNYL in NS 5 mcg/mL 25 mcg/hr (01/12/15 0151) norepinephrine in D5W 64 mcg/mL 24 mcg/min (01/12/15 0857) sodium bicarbonate drip 100 mEq/1000 mL 110 mL/hr at 01/12/15 0813 TPN ADULT 25 mL/hr at 01/12/15 0530 TPN ADULT vasopressin in NS 0.4 unit/mL 0.03 Units/min (01/12/15 0524) PRN Medications acetaminophen OR acetaminophen, dextrose, HYDROcodone-acetaminophen OR HYDROcodone- acetaminophen, lip moisturizer, magnesium sulfate OR magnesium sulfate OR magnesium sulfate, metoclopramide, morphine OR morphine OR morphine, nystatin, nystatin, [DISC ONTINUED] ondansetron OR ondansetron, petrolatum, polyethylene glycol, potassium chlorid e OR potassium chloride OR potassium chloride, promethazine sodium chloride 0.9 %, sodium phosphate IVPB 15 mmol OR sodium phosphate IVPB 30 mmol, zolpidem OBJECTIVE Vital Signs: BP 84/53 mmHg | Pulse 104 | Temp(Src) 98.2 F (36.8 C) (Axillary) | Resp 27 | Ht 1.626 m (5' 4") | Wt 76 kg (167 lb 8.8 oz) | BMI 28.75 kg/m2 | SpO2 98% Temp: [98.1 F (36.7 C)-102.8 F (39.3 C)] 98.2 F (36.8 C) (01/13 800) BP: (68-156)/(37-68) 84/53 mmHg (01/12 1030) Heart Rate: [72-144] 104 (01/12 1030) Resp: [3-51] 27 (01/12 1030) SpO2: [81 %-100 %] 98 % (01/12 1030) Height: [162.6 cm (5' 4")-162.6 cm (5' 4.02")] 162.6 cm (5' 4") (01/11 2311) Weight: [72.5 kg (159 lb 13.3 oz)-76 kg (167 lb 8.8 oz)] 76 kg (167 lb 8.8 oz) (01/12 430 ) BMI (Calculated): [27.5] 27.5 (01/11 2311) FiO2 : [50 %-70 %] 50 % (01/13 800) Physical Exam Constitutional: He appears well-developed and well-nourished. He is intubated. HENT: Head: Atraumatic. Eyes: Pupils are equal, round, and reactive to light. Neck: Neck supple. Pulmonary/Chest: He is intubated. Abdominal: Soft. He exhibits no distension. There is no tenderness. Genitourinary: Neurological: He is alert. Follows command Skin: Skin is warm. He is not diaphoretic. Vitals reviewed. DATA CBC: Lab Results Component Value Date WBC 3.38* 01/12/2015 RBC 2.62* 01/12/2015 HGB 8.9* 01/12/2015 HCT 26.1* 01/12/2015 MCV 99.8 01/12/2015 MCH 34.1* 01/12/2015 MCHC 34.2 01/12/2015 RDW 41.6 01/12/2015 PLT 173 01/12/2015 MPV 8.6 01/12/2015 DIFFTYPE MANUAL 01/12/2015 BMP: Lab Results Component Value Date NA 140 01/12/2015 K 3.8 01/12/2015 CL 114* 01/12/2015 CO2 17* 01/12/2015 ANIONGAP 13 01/12/2015 GLUF 96 01/12/2015 BUN 17 01/12/2015 CREATININE 1.00 01/12/2015 BCR 17 01/12/2015 CA 6.7* 01/12/2015 EGFR >60 01/12/2015 Magnesium: Lab Results Component Value Date MG 1.3* 01/12/2015 Phosphorus: Lab Results Component Value Date PHOS 2.4 01/12/2015 PROBLEM LIST Principal Problem: Atrial fibrillation with RVR (HCC) Active Problems: Rectal cancer (HCC) Persistent atrial fibrillation (HCC) Hyperlipidemia Abdominal pain Anemia Hyposmolality and/or hyponatremia Severe sepsis (HCC) Lactic acidosis Acute respiratory failure with hypoxia (HCC) Aspiration pneumonia (HCC) Acute kidney injury (HCC) ASSESSMENT & PLAN S/P Coloanal pull-through for low rectal cancer POD#8. Developed likely aspiration pneumo faye and sepsis. On supportive treatment and broad spectrum abx in the ICU. Overall seems to be stable. - ICU and ID effort appreciated. Disposition: Code Status: Full Code Saleem Shore MD 01/12/2015 onversion Transac tion, Provider Unknown - 01/12/2015 8:33 AM PDTFormatting of this note might be different f rom the original. Therapy Progress Note by Digna Hickman OTR/L at 01/12/15 08 Author: GABRIELLA Rico/Ada Service: (none) Author Type: Occupational Therapist Filed: 01/12/15832 Date of Service: 01/12/15832 Status: Signed Statistical Reporting Analyst: GABRIELLA Rico/Ada (Occupational Therapist) 01/12/15 0832 OT Last Visit OT Received On 01/12/15 Requires OT Follow Up On hold (intubated/sedated) Plan Requires OT Follow Up On hold will continue to follow up as pt becomes appropriate to participate. ineRoro menjivar PT - 01/12/2015 8:00 AM PDTFormatting of this note might be different from t he original. Therapy Progress Note by Roro Sterling PT at 01/12/15 08 Author: Roro Sterling PT Service: (none) Author Type: Physical Therapist Filed: 01/12/15817 Date of Service: 01/12/15 0800 Status: Signed Statistical Reporting Analyst: Roro Sterling, PT (Physical Therapist) 01/12/15 0800 PT Last Visit PT Received On 01/12/15 Requires PT Follow Up On hold Other Comments Comments Pt intubated and sedated. Will check back on pt's status 01/13/15 onversion Trans action, Provider Unknown - 01/12/2015 7:52 AM PDT Progress Notes by Ludivina Eckert RP at 01/12/15751 Author: Ludivina Eckert RPH Service: (none) Author Type: Pharmacist Filed: 01/12/15751 Date of Service: 01/12/15751 Status: Signed Statistical Reporting Analyst: Ludivina Eckert RPH (Pharmacist) Clinical Pharmacy Note: INITIATION OF Parenteral Nutrition: day 2 Rate will be increased to goal of 50ml/min Magnesium 1.3 will be replaced by rider and increased in TPN Continue to monitor and adjust electrolytes Dino Swann MD - 01/12/2015 3:39 AM PDTFormatting of this note might be different from the randolph ginal. Progress Notes by Dino Russo MD at 01/12/15338 Author: Dino Russo MD Service: Speech And Hearing Clinic Director Author Type: Physician Filed: 01/12/15 0515 Date of Service: 01/12/15338 Status: Signed Statistical Reporting Analyst: Dino Russo MD (Physician) Sepsis protocol 6 hour note The lactic acid is trending down, He is on levophed 18mcg/min. ivc is full with no respiratory variation. onversion Transaction , Provider Unknown - 01/12/2015 1:40 AM PDT Progress Notes by Suad Alvarez RPH at 01/12/15139 Author: Suad Alvarez RPH Service: (none) Author Type: Pharmacist Filed: 01/12/15139 Date of Service: 01/12/15139 Status: Signed Statistical Reporting Analyst: Suad Alvarez RPH (Pharmacist) Clinical Pharmacy Note: Pharmacy Dosing Vancomycin; Day 1 Height: 162.6 cm Weight: 72.5 kg WBC: 4.7 CREATININE: 1.8 mg/dL ABNORMAL (01/11/152007) Estimated creatinine clearance - 36.8 mL/min Urine output okay per RN; expect creatinine to improve. INDICATION: Aspiration pneumonia, severe sepsis. Will begin Vancomycin 1250 mg (17.2 mg/kg) IV Q12H for 2 doses, then Q24H. Level due 01/13 at 0000; goal 15 to 20 mcg/mL. Suad Alvarez PharmD 01/12/2015 1:38 AM onver alex Transaction, Provider Unknown - 01/12/2015 1:27 AM PDT Progress Notes by Suad Alvarez RPH at 01/12/15126 Author: Suad Alvarez RPH Service: (none) Author Type: Pharmacist Filed: 01/12/15126 Date of Service: 01/12/15126 Status: Signed Statistical Reporting Analyst: Suad Alvarez RPH (Pharmacist) Clinical Pharmacy Note: Extended Interval Zosyn Dosing CREATININE: 1.8 mg/dL ABNORMAL (01/11/152007) Estimated creatinine clearance - 36.8 mL/min NEUTROPHILS ABS Date Value Ref Range Status 01/11/2015 3.36 1.90 - 7.40 K/uL Final Comment: Testing performed at [facility], [address] [place] [address] Will begin with loading dose of 4.5 g IV over 30 min, then 2 hours later 3.375 g IV Q8H (ea 3.375 g dose to be infused over 4 hours). Pharmacy will continue to monitor and adjust if needed per protocol. Suad Alvarez PharmD 01/12/2015 1:27 AM Dino Swann MD - 01/12/2015 12:36 AM PDTFormatting of this note might be different from the randolph ginal. Progress Notes by Dino Russo MD at 01/12/1535 Author: Dino Russo MD Service: Speech And Hearing Clinic Director Author Type: Physician Filed: 01/12/15 0053 Date of Service: 01/12/1535 Status: Signed Statistical Reporting Analyst: Dino Russo MD (Physician) [facility] Service: Speech And Hearing Clinic Director Progress Note Jose Eaton 64 y.o. Hospital Day: LOS: 9 days Post-Op Day: 9 Days Post-Op Consulting Physicians Treatment Team: Consulting Physician: Karsten Santiago MD Admitting Provider: Saleem Shore MD SUBJECTIVE Patient Summary: Patient is a 64-year-old male with history of rectal cancer, hyperli pidemia on chemotherapy who recently underwent a robotic low anterior resection with diverti cular loop ileostomy. This is his post operative day 9. The patient was noted to have decr eased urine output but his IV ostomy was working fine. A rapid assessment team was called a nd the patient was noted to be hypotensive and tachycardic. The patient was given 5 L of cr ystalloids with significant improvement in his blood pressure but the patient became very ta chypneic. A stat blood gas revealed metabolic acidosis along with lactic acidosis. The pat ient showed signs of respiratory fatigue , increasing oxygen requirement and confusion and w as subsequently intubated without any problem. He was given 2 pushes of bicarbonate. A pos t intubation chest x-ray revealed right-sided pneumonia. The patient has been complaining of thirst since morning and has been febrile and tachycard ic. He denied any significant pain but had significant nausea and vomiting. The patient was being planned for starting TPN today. ICU Timeline: Admitted to the ICU Events Overnight: Please see above SCHEDULED MEDICATIONS albumin human 12.5 g Intravenous Once atorvastatin 40 mg Oral Nightly chlorhexidine gluconate 15 mL Mouth/Throat Q12H docusate sodium 100 mg Oral BID Or docusate 100 mg Per OG Tube BID fat emulsion 250 mL Intravenous Daily heparin (porcine) 5000 unit/0.5mL 5,000 Units Subcutaneous Q8H insulin aspart 0-16 Units Subcutaneous 4 times per day megestrol 400 mg Oral Daily metoprolol 50 mg Oral BID metronidazole 500 mg Intravenous Q8H pantoprazole 40 mg Intravenous QAM AC piperacillin-tazobactam 3.375 g Intravenous Q8H sodium chloride (PF) thiamine (VITAMIN B1) IVPB 100 mg Intravenous Q24H vancomycin 17 mg/kg Intravenous Q12H CONTINUOUS INFUSIONS dextrose 5 % and 0.9 % NaCl 110 mL/hr at 01/11/15 1511 fentaNYL in NS 5 mcg/mL TPN ADULT OBJECTIVE VITAL SIGNS Temp: [98 F (36.7 C)-102.8 F (39.3 C)] 98.1 F (36.7 C) Heart Rate: [72-144] 128 Resp: [3-51] 31 BP: (68-156)/(42-68) 96/51 mmHg FiO2 : [70 %] 70 % Intake/Output Summary (Last 24 hours) at 01/12/15 0037 Last data filed at 01/11/15 2148 Gross per 24 hour Intake 2330 ml Output 3630 ml Net -1300 ml EXAM GEN: awake, alert, oriented but progressively became confused NEURO: PERRLA, EOMI, no facial asymmetry, moves all extremities well GCS: 15 HEENT: sclerae clear, nonicteric, oral mmm, pink, no exudates NECK: supple, trachea midline HEART: RRR, S1/S2, no murmur, rub or gallop LUNGS: clear b/l, no wheezing, rales or rhonchi, symmetric chest expansion, decreased air e ntry on the right ABD: soft, nondistended, nontender to palpation, no masses, no hepatosplenomegaly , clean i leostomy EXTR: no edema, clubbing or cyanosis SKIN: warm, dry, no rash or mottling; no e/o skin breakdown over the occiput, scapulae, elb ows, sacrum or heels LINES/TUBES: ETT 01/12/2015 DATA Recent Labs Lab 01/11/15200701/11/1544001/10/15 04401/09/15 0541 WBC 4.17 4.58 4.68 7.93 RBC 3.51* 3.64* 3.87* 3.85* HGB 12.1* 12.4* 13.3 13.2 HCT 34.3* 35.9* 38.1* 37.6* MCV 97.9 98.7 98.6 97.8 MCH 34.4* 34.0 34.4* 34.4* MCHC 35.1 34.5 34.9 35.2 RDW 41.6 41.1 40.3 39.4 PLT 252 266 256 223 MPV 7.8 8.6 8.4 8.7 NEUTROABS -- 3.36 3.48 6.70 LYMPHSABS -- 0.39* 0.29* 0.41* MONOSABS -- 0.63 0.70 0.59 BASOSABS -- 0.02 0.02 0.04 EOSABS -- 0.19 0.20 0.18 MORPH RBC AND PLT MORPHOLOGY APPEAR NORMAL -- -- -- Recent Labs Lab 01/11/15200701/11/1544001/10/1544801/09/15 0541 NA 135 129* 131* 129* K 4.0 4.1 4.6 4.1 CL 105 100 101 100 CO2 23 23 24 23 ANIONGAP 11 10 11 10 GLUF 134* 135* 131* 144* BUN 19 12 14 7* CREATININE 1.8* 0.67* 0.93 0.54* BCR 10 18 15 13 CA 8.1* 8.8 9.1 9.1 EGFR 40* >60 >60 >60 PHOS -- 2.8 3.8 3.7 MG -- 1.9 1.7 1.7 No results for input(s): INR in the last 168 hours. IMAGING Reviewed PROBLEM LIST Principal Problem: Atrial fibrillation with RVR (HCC) Active Problems: Rectal cancer (HCC) Persistent atrial fibrillation (HCC) Hyperlipidemia Abdominal pain Anemia Hyposmolality and/or hyponatremia Severe sepsis (HCC) Lactic acidosis Acute respiratory failure with hypoxia (HCC) Aspiration pneumonia (HCC) ASSESSMENT & PLAN NEURO: The patient was awake alert oriented. He became confused with progression of the respir atory fatigue. CV: Severe sepsis, lactic acidosis, atrial fibrillation with RVR, dehydration The patient appears to be having severe sepsis secondary to aspiration pneumonia. Recent echo showed normal ejection fraction He responded to aggressive fluid hydration. Use pressors to keep map more than 65 Initial lactate was 5. We will repeat a lactate in 6 hours. Patient received ciprofloxacin, metronidazole which were changed to Zosyn, vancomycin to broaden the coverage. PULM: Aspiration pneumonia Acute hypoxic respiratory failure due to aspiration pneumonia Continue antibiotics Continue mechanical ventilation . Peak airway pressure< 30 , tidal voulme 8cc/kg Titrate Fio2 to keep SPo2>90% Aspiration precautions GI/NUTRITION: Nothing by mouth Rectal cancer status post resection with loop ileostomy Surgery follow-up We will start TPN from tomorrow RENAL/LYTES: Acute kidney injury possibly secondary to prerenal azotemia Will watch the urine output and electrolytes . Replace as needed ID: Aspiration pneumonia please see above HEME: No acute abnormality ENDO: Monitor the blood sugar goal 120-180 MUSC/SKIN: Early mobility PROPHYLAXIS: Stress ulcer prophylaxis: Pepcid DVT prophylaxis: Heparin subcutaneous, SCD VAP bundle: chlorhexadine oral care, HOB >30 degrees. Disposition: The patient will be monitored in the ICU Code Status: Full Code *Please bill 80 minutes of critical care time spent evaluating the patient, reviewing the d jose guadalupe and formulating a plan exclusive of all other procedures. Dino Russo MD 01/12/2015 onversion Transaction , Provider Unknown - 01/12/2015 12:31 AM PDT Progress Notes by Suad Alvarez RPH at 01/12/1530 Author: Suad Alvarez RPH Service: (none) Author Type: Pharmacist Filed: 01/12/1531 Date of Service: 01/12/1530 Status: Signed Statistical Reporting Analyst: Suad Alvarez RPH (Pharmacist) Patient on TPN: Electrolyte replacement changed to TPN replacement. Thank you. Suad Alvarez PharmD 01/12/2015 12:31 AM onver alex Transaction, Provider Unknown - 01/12/2015 12:01 AM PDT Progress Notes by Evelyn Davidson RRT at 01/12/15 0001 Author: Evelyn Davidson RRT Service: (none) Author Type: Registered Respiratory Therapi st Filed: 01/12/15 0003 Date of Service: 01/12/15 0001 Status: Signed Statistical Reporting Analyst: Evelyn Davidson RRT (Registered Respiratory Therapist) 01/11/152299 ETT 8 mm Placement Date/Time: 01/11/152254 Size : 8 mm Cuffed: Cuffed Insertion attempts: 1 Pl aced By: [facility] Director Secured at (cm): 22 cm Measured From: Lips Secured by: Commercial tu be hdz Confirmation: EtCO2;Fiber optic Technique: Fiber Optic ... Secured at (cm) 22 cm Measured From Gums Secured Location Center Secured by Commercial tube hdz Site Condition Dry Cuff Pressure (cwp) 24 cwp Adult IBW/VT Calculations Height 1.626 m (5' 4.02") IBW/kg (Calculated) Male 59.24 kg Low Range Vt 6cc/kg MALE 355.44 mL Adult Moderate Range Vt 8cc/kg MA 473.92 mL Adult High Range Vt 10cc/kg MALE 592.4 mL IBW/kg (Calculated) FEMALE 54.74 kg Low Range Vt 6cc/kg FEMALE 328.44 mL Adult Moderate Range vt 8cc/kg FEMALE 437.92 mL Vent Type/Mode Vent Type Servo i Vent Mode PRVC Device feeds Set Rate 22 bmp Resp Rate Total 22 br/min Inhaled Vt (mL) 471 mL Exhaled Vt (mL) 474 mL PEEP 8 cmH20 FiO2 70 % ET CO2 29 mmHg Peak Airway Pressure 23 cmH2O Mean Airway Pressure 12 cmH20 Plateau Pressure 19 cmH20 Ve 10.8 mL I:E Ratio Measured 1:2 % TI 33 % RT Entry Vt Set 470 mL Trigger flow (L/min) 5 L/m TIP (sec) 0.9 sec Insp Rise Time (sec) 0.15 sec VTE 474 mL WOB (V/L) 1.45 Dynamic Compliance (L/cm H2O) 30 L/cm H2O Static Compliance (L/cm H2O) 49 HOB>/= 30 Degrees Y Alarms Alarms On Y Resp Rate High Alarm 36 br/min Resp Rate Low Alarm 10 Press High Alarm 45 cmH2O Ve High Alarm 20 L/min Ve Low Alarm 4 L/min PEEP High Alarm 10 cmH2O PEEP Low Alarm 5 cmH2O Alarm sound level (%) 100 % Oxygen Therapy/Pulse Ox O2 Device ETT Humidification HME SpO2 100 % Vitals/Respiratory Assessment Assessment Type Assess only Heart Rate 134 Heart Rate Source Monitor Resp 22 Level of Consciousness Pharmaceutically paralyzed;Sedated Respiratory Pattern Regular;Easy;Unlabored Patient Tolerance Tolerated well Breath Sounds Breath Sounds Bilateral Clear;Diminished Breath Sounds Right Diminished Pt intubated by [facility] Hearing [facility] Director Karan without incident/event with ETT 8.0, 22cm at [facility] placement. No desaturations durring intubation. Placement confirmed by visual, BS, and EtCO2 detection. onver alex Transaction, Provider Unknown - 01/11/2015 11:03 PM PDT Nurse Progress Note by Chandrika Mayers RN at 01/11/152302 Author: Chandrika Mayers RN Service: (none) Author Type: Registered Nurse Filed: 01/11/152316 Date of Service: 01/11/152302 Status: Signed Statistical Reporting Analyst: Chandrika Mayers RN (Registered Nurse) Received phone call while in another patients room that Patient had a low blood pressure. Upon entering room, lead RN and another surgical consultant were in room. Patient alert, cymro sp eaking only. Patient tachypnic and warm to the touch. RAT was called at approximately 2000. ICU lead RN, in room to assist along with lab, respiratory and Dr. Palmer. Patients daysh ift RN also asked in to room to assist with questions. Lead RN entered orders given by Dr. Palmer. MACHINE CLOTH MEASURER initiated fluid boluses and IV antibiotics. Per Dr. Palmer conversations with patient, Patient confused. Blood pressures remained low despite fluid boluses, continu es with fevers. (See flowsheet) Ileostomy draining dark green fluid. Oxygen saturations 89- 91 % on RA, O2 placed at 2L via mask d/t patient mouth breathing. Patient received a total of 5L while on the floor, then transferred to ICU. onver alex Transaction, Provider Unknown - 01/11/2015 10:12 PM PDT Nurse Progress Note by Grace Jasso RN at 01/11/152211 Author: Grace Jasso RN Service: (none) Author Type: Registered Nurse Filed: 01/11/152213 Date of Service: 01/11/152211 Status: Signed Statistical Reporting Analyst: Grace Jasso RN (Registered Nurse) Lactate result 5.0 even after multiple NS bolus. Patient being transferred to ICU with ICU lead RN, primary surgical consultant. onver alex Transaction, Provider Unknown - 01/11/2015 8:20 PM PDT Nurse Progress Note by Grace Jasso RN at 01/11/152019 Author: Grace Jasso RN Service: (none) Author Type: Registered Nurse Filed: 01/11/152020 Date of Service: 01/11/152019 Status: Signed Statistical Reporting Analyst: Grace Jasso RN (Registered Nurse) Pressure bags applied to NS bolus. IV antibiotics started. onver alex Transaction, Provider Unknown - 01/11/2015 8:11 PM PDT Nurse Progress Note by Grace Jasso RN at 01/11/152010 Author: Grace Jasso RN Service: (none) Author Type: Registered Nurse Filed: 01/11/152011 Date of Service: 01/11/152010 Status: Signed Statistical Reporting Analyst: Grace Jasso RN (Registered Nurse) Mediport has good blood return. EKG done. evaluating results. onver alex Transaction, Provider Unknown - 01/11/2015 8:05 PM PDT Nurse Progress Note by Grace Jasso RN at 01/11/152004 Author: Grace Jasso RN Service: (none) Author Type: Registered Nurse Filed: 01/11/152005 Date of Service: 01/11/152004 Status: Signed Statistical Reporting Analyst: Grace Jasso RN (Registered Nurse) Lactate and blood cultures being drawn. EKG ordered, placed called. onver alex Transaction, Provider Unknown - 01/11/2015 7:46 PM PDT Nurse Progress Note by Kayli Flecther RN at 01/11/151945 Author: Kayli Fletcher RN Service: (none) Author Type: Registered Nurse Filed: 01/11/151949 Date of Service: 01/11/151945 Status: Signed Statistical Reporting Analyst: Kayli Fletcher RN (Registered Nurse) Called Dr. Shore to notify him of pt. Removing NG tube and discuss low urine output. Do ctor stated output from NG was minimal and d/t pt. Being uncooperative no need to reinsert N G tube. Start TPN as ordered. Keep monitoring intake and output. Kayli Fletcher onver alex Transaction, Provider Unknown - 01/11/2015 7:18 PM PDT Progress Notes by Odessa Moreno RPH at 01/11/151917 Author: Odessa Moreno RPH Service: (none) Author Type: Pharmacist Filed: 01/11/151917 Date of Service: 01/11/151917 Status: Signed Statistical Reporting Analyst: Odessa Moreno RPH (Pharmacist) Clinical Pharmacy Note: INITIATION OF Parenteral Nutrition: Jose Eaton 64 y.o. male Height: Ht Readings from Last 1 Encounters: 01/10/15 1.626 m (5' 4") Weight: Wt Readings from Last 1 Encounters: 01/11/15 69.4 kg (153 lb) Body Mass Index: Body mass index is 26.25 kg/(m^2). [place] Body Weight: 59.2 kg Adjusted Body Weight: 63.3 kg Creatinine: CREATININE Date Value Ref Range Status 01/11/2015 0.67* 0.70 - 1.30 mg/dL Final Comment: Testing performed at [facility], [address] [place] [address] Estimated CrCl : CREATININE: 0.67 mg/dL ABNORMAL (01/11/15 4422) Estimated creatinine clearance - 90.8 mL/min Estimated Needs: Basal Energy Expenditure (BEE): 1300 hubert BEE x 1.2-1.4 = 7478-5988 Kcal needed per day Protein Requirements: Maintenance, Stressed: 1 -1.2 g/kg/day PN Line: Central Dextrose: 23% Amino Acids: 6% Lipid 20% 250 mL PN Goal Rate: ~ 50 mL/hr PN Rate on Day 1: 25 mL/hr for 24 hours Amount of non-protein calories and grams of protein this provides: @ goal rate: 1450 NPC, 7 2 g protein Will adjust goal when dietary rec's available Pharmacist: Odessa Moreno 01/11/2015 7:16 PM onver alex Transaction, Provider Unknown - 01/11/2015 5:00 PM PDT Nurse Progress Note by Kayli Fletcher RN at 01/11/151699 Author: Kayli Fletcher RN Service: (none) Author Type: Registered Nurse Filed: 01/11/151840 Date of Service: 01/11/151699 Status: Signed Statistical Reporting Analyst: Kayli Fletcher RN (Registered Nurse) Pt. Found trying to drink water out of sink. Patient stated he wants water. Is aware that h e can not eat or drink anything. Kayli Fletcher amela, Karsten Shelley MD - 01/11/2015 2:48 PM PDT Progress Notes by Karsten Santiago MD at 01/11/151447 Author: Karsten Santiago MD Service: (none) Author Type: Physician Filed: 01/11/15 1506 Date of Service: 01/11/151447 Status: Signed Statistical Reporting Analyst: Karsten Santiago MD (Physician) [facility] Service: Hospitalist Progress Note Pt: Jose Eaton AGE/SEX: 64 y.o. male : 1950 ROOM: [address] [place] [address] REQUESTING PROVIDER: Saleem Shore MD TODAY'S DATE: 01/11/2015 Hospital Day: LOS: 8 days s/p colon anal pull through For low rectal CA SUBJECTIVE tachycardia correlate with fever spikes in though in sinus now recheck 98s afebril he has nause and vomiting bouts NG was inserted Scheduled Medications atorvastatin 40 mg Oral Nightly heparin (porcine) 5000 unit/0.5mL 5,000 Units Subcutaneous Q8H megestrol 400 mg Oral Daily metoprolol 25 mg Oral BID pantoprazole 40 mg Intravenous QAM AC tamsulosin 0.4 mg Oral after dinner Continuous Infusions dextrose 5 % and 0.9 % NaCl PRN Medications HYDROcodone-acetaminophen OR HYDROcodone-acetaminophen, magnesium sulfate OR magnes ium sulfate OR magnesium sulfate, metoclopramide, morphine OR morphine OR morphi ne, ondansetron OR ondansetron, phosphorus OR sodium phosphate IVPB 15 mmol OR s odium phosphate IVPB 30 mmol, polyethylene glycol, potassium chloride OR potassium chlor marcos OR potassium chloride, promethazine, zolpidem Allergy: Allergies Allergen Reactions Seasonal Allergies [Other-Environmental] Itching OBJECTIVE Vitals: Patient Vitals for the past 24 hrs: BP Temp Temp src Pulse Resp SpO2 Height Weight 01/11/15 1145 121/68 mmHg 102.8 F (39.3 C) Axillary 132 18 93 % - - 01/11/15 1142 - 99.8 F (37.7 C) Oral 134 - - - - 01/11/15 0704 123/62 mmHg 98.3 F (36.8 C) Oral 78 18 95 % - - 01/11/15 0608 - - - - - - - 69.4 kg (153 lb) 01/11/15 0322 128/66 mmHg 98 F (36.7 C) Oral 75 16 97 % - - 01/10/15 2320 105/63 mmHg 98.5 F (36.9 C) Oral 72 20 96 % - - 01/10/15 1954 118/70 mmHg 98.1 F (36.7 C) Oral 77 20 98 % - - 01/10/15 1546 122/62 mmHg 99.5 F (37.5 C) Oral 76 18 98 % - - 01/10/15 1508 - - - - - - 1.626 m (5' 4") 72.8 kg (160 lb 7.9 oz) I&O Detailed Table: Intake/Output Summary (Last 24 hours) at 01/11/15 1449 Last data filed at 01/11/15 1245 Gross per 24 hour Intake 5033 ml Output 3475 ml Net 1558 ml Patient Vitals for the past 96 hrs: Weight 01/11/15 0608 69.4 kg (153 lb) 01/10/15 1508 72.8 kg (160 lb 7.9 oz) Hemodynamics Last 24hrs: Examination: HEENT-perrel NEck Supple no JVD, no L/N lung- BS+ + no crepts No wheez heart S1 S2 no murmur abdomen- soft no tendernessno guarding EXt no edwema SPAR 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 No results for input(s): PHART, PO2ART, PUX1MSW, P5UCTIOA, BEART in the last 168 hours. No results for input(s): APTT, INR, PTT in the last 168 hours. Recent Labs Lab 01/05/15 0903 TSH 2.53 Recent Labs Lab 01/05/15 1514 01/05/15 0903 CKTOTAL 157 177 TROPONINI <0.020 <0.020 CKMBINDEX 0.8 0.8 PROBLEM LIST Principal Problem: Atrial fibrillation with RVR (HCC) Active Problems: Rectal cancer (HCC) Persistent atrial fibrillation (HCC) Hyperlipidemia Abdominal pain Anemia Hyposmolality and/or hyponatremia ASSESSMENT & PLAN Principal Problem: Atrial fibrillation with RVR (HCC) in sinus Though sinus tachycardai with fever spikes B C as well as UC send out also chest Xray as he vomited asw ell on betablocker Active Problems: Rectal cancer (HCC) s/p coloanal Pull throuigh for low rectal CA vomiting this am Xray abd partial SBO NPO persurgeon NG suction TPN Hyperlipidemia on statin stable LFT Anemia chrnic issue with underlying CA rectal no active bleeding Hyposmolality and/or hyponatremia moniter trend on NS iVF DVT pro KARSTEN SANTIAGO MD MD 01/11/2015 2:49 PM onversion Transac tion, Provider Unknown - 01/11/2015 2:25 PM PDTFormatting of this note might be different f rom the original. Nurse Progress Note by Kayli Fletcher RN at 01/11/15 1425 Author: Kayli Fletcher RN Service: (none) Author Type: Registered Nurse Filed: 01/11/15 1438 Date of Service: 01/11/151424 Status: Addendum Statistical Reporting Analyst: Kayli Fletcher RN (Registered Nurse) Related Notes: Original Note by Kayli Fletcher RN (Registered Nurse) filed at 5 1433 Entered note on wrong patient. Kayli Fletcher onver alex Transaction, Provider Unknown - 01/11/2015 1:07 PM PDT Progress Notes by Anoop Horan RN at 01/11/15 1307 Author: Anoop Horan RN Service: Wound/Ostomy Care Author Type: Registered Nurse Filed: 01/11/15 1313 Date of Service: 01/11/15 1307 Status: Signed Statistical Reporting Analyst: Anoop Horan RN (Registered Nurse) Met with patient and pension fund manager. Patient had reported to nurse earlier in day that he had some questions regarding his ostomy and care. He is not feeling well today however and decli vish education at this time. Patient is still in need of education and teaching regarding car e of ostomy. Patient will be scheduled to be seen on Tuesday. ilabo Saleem myrick MD - 01/11/2015 8:52 AM PDT Progress Notes by Saleem Shore MD at 01/11/15851 Author: Saleem Shore MD Service: General Surgery Author Type: Physician Filed: 01/11/15854 Date of Service: 01/11/15851 Status: Signed Statistical Reporting Analyst: Saleem Shore MD (Physician) [facility] Service: Colon & Rectal Surgery Progress Note Hospital Day: LOS: 8 days Post-Op Day: 8 Day Post-Op SUBJECTIVE Patient Summary: S/P Coloanal pull-through for low rectal cancer. Events Overnight: ostomy with good output of stool and gas, but he was nauseated and v omited today. AXR revealed a partial SBO Scheduled Medications atorvastatin 40 mg Oral Nightly heparin (porcine) 5000 unit/0.5mL 5,000 Units Subcutaneous Q8H lidocaine buffered 1% 0.5 mL Intradermal Once megestrol 400 mg Oral Daily metoprolol 25 mg Oral BID pantoprazole 40 mg Intravenous QAM AC sodium chloride 0.9 % 10 mL Intravenous 2 times per day tamsulosin 0.4 mg Oral after dinner Continuous Infusions dextrose 5 % and 0.9 % NaCl with KCl 20 mEq 110 mL/hr at 01/11/15 2436 PRN Medications HYDROcodone-acetaminophen OR HYDROcodone-acetaminophen, magnesium sulfate OR magnes ium sulfate OR magnesium sulfate, metoclopramide, morphine OR morphine OR morphi ne, ondansetron OR ondansetron, phosphorus OR sodium phosphate IVPB 15 mmol OR s odium phosphate IVPB 30 mmol, polyethylene glycol, potassium chloride OR potassium chlor marcos OR potassium chloride, promethazine, sodium chloride 0.9 %, zolpidem OBJECTIVE Vital Signs: BP 123/62 mmHg | Pulse 78 | Temp(Src) 98.3 F (36.8 C) (Oral) | Resp 18 | Ht 1.626 m (5' 4") | Wt 69.4 kg (153 lb) | BMI 26.25 kg/m2 | SpO2 95% Temp: [98 F (36.7 C)-99.5 F (37.5 C)] 98.3 F (36.8 C) (01/12 704) BP: (105-128)/(62-70) 123/62 mmHg (01/12 704) Heart Rate: [72-96] 78 (01/12 704) Resp: [14-20] 18 (01/12 704) SpO2: [95 %-98 %] 95 % (01/12 704) Height: [162.6 cm (5' 4")] 162.6 cm (5' 4") (01/10 150) Weight: [69.4 kg (153 lb)-72.8 kg (160 lb 7.9 oz)] 69.4 kg (153 lb) (01/12 608) BMI (Calculated): [27.6] 27.6 (01/10 150) Physical Exam Constitutional: He is oriented to person, place, and time. He appears well-developed and we ll-nourished. No distress. HENT: Head: Atraumatic. Eyes: Pupils are equal, round, and reactive to light. Neck: Neck supple. Cardiovascular: Normal rate. Pulmonary/Chest: Effort normal. No respiratory distress. Abdominal: Soft. He exhibits no distension. There is no tenderness. Genitourinary: Neurological: He is alert and oriented to person, place, and time. Skin: Skin is warm. He is not diaphoretic. Psychiatric: He has a normal mood and affect. Vitals reviewed. DATA CBC: Lab Results Component Value Date WBC 4.58 01/11/2015 RBC 3.64* 01/11/2015 HGB 12.4* 01/11/2015 HCT 35.9* 01/11/2015 MCV 98.7 01/11/2015 MCH 34.0 01/11/2015 MCHC 34.5 01/11/2015 RDW 41.1 01/11/2015 PLT 266 01/11/2015 MPV 8.6 01/11/2015 DIFFTYPE AUTOMATED 01/11/2015 BMP: Lab Results Component Value Date NA 129* 01/11/2015 K 4.1 01/11/2015 CL 100 01/11/2015 CO2 23 01/11/2015 ANIONGAP 10 01/11/2015 GLUF 135* 01/11/2015 BUN 12 01/11/2015 CREATININE 0.67* 01/11/2015 BCR 18 01/11/2015 CA 8.8 01/11/2015 EGFR >60 01/11/2015 Magnesium: Lab Results Component Value Date MG 1.9 01/11/2015 Phosphorus: Lab Results Component Value Date PHOS 2.8 01/11/2015 PROBLEM LIST Principal Problem: Atrial fibrillation with RVR (HCC) Active Problems: Rectal cancer (HCC) Persistent atrial fibrillation (HCC) Hyperlipidemia Abdominal pain Anemia Hyposmolality and/or hyponatremia ASSESSMENT & PLAN S/P Coloanal pull-through for low rectal cancer POD#8. Vomiting despite a good ostomy out put, Xray with possible SBO - NGT - PICC and TPN Disposition: Code Status: Full Code Saleem Shore MD 01/11/2015 onversion Transac tion, Provider Unknown - 01/11/2015 4:32 AM PDTFormatting of this note might be different f rom the original. Nurse Progress Note by Rosalva Mosqueda RN at 01/11/15431 Author: Rosalva Mosqueda RN Service: (none) Author Type: Registered Nurse Filed: 01/11/15 0435 Date of Service: 01/11/15431 Status: Signed Statistical Reporting Analyst: Rosalva Mosqueda RN (Registered Nurse) Pt c/o Nausea around 2300. Pt given all medications available for nausea. Vomiting small amounts of green emesis, similar looking to ostomy output. Bowel tones present, hypoactive. Will continue to monitor. onver alex Transaction, Provider Unknown - 01/10/2015 3:21 PM PDT Progress Notes by Asya Chauhan RD at 01/10/15 152 Author: Asya Chauhan RD Service: (none) Author Type: Registered Dietitian Filed: 01/10/15 1522 Date of Service: 10/16/15 1521 Status: Signed Statistical Reporting Analyst: Asya Chauhan RD (Registered Dietitian) 01/10/15 1508 Subjective Timepoint Admit (length of stay) Pt c/o Poor appetite Fluid / Beverage Intake Oral Fluids Amount Drinking fluids ad tato. Snapple and nectar juice at bedside. Liquid Meal Replacement or Supplement Receiving Ensure QID. Per RN, pt is only drinking so me of them. Food Intake Amount of Food Per RN, pt has a decreased appetite and is not eating very well. Pt's famil y has been encouraging pt to eat. Type of Food / Meals Low fiber/low residue Bioactive Substance Intake Pattern of Alcohol Consumption Pt noted to have history of drinking 2 cans of beer and 14 s hots of liquor/week. Nutrition-Focused Physical Findings Digestive System (Mouth to Rectum) Pt is POD#7 s/p coloanal pull through and ileostomy plac ement for low rectal cancer. Noted to still have high ostomy output. Anthropometrics Height 1.626 m (5' 4") Weight 72.8 kg (160 lb 7.9 oz) Weight Change 100 Weight change BMI of 27.6 (overweight) BMI (Calculated) 27.6 Biochemical data, medical tests, and procedures reviewed Biochemical data, medical tests, and procedures reviewed Na 131 (L), BG 131 (H); will deepti nue to monitor. Estimated Energy Needs Total Energy Estimated Needs 1965 - 2330 kcal/day Method for Estimating Needs 27 -32 kcal/kg Estimated Protein Needs Total Protein Estimated Needs 87 - 109 g/day Method for Estimating Needs 1.2 - 1.5 g/kg Recommendations Recommended energy needs Continue low fiber/low residue diet. Change Ensure to BID. Add m agic cup BID. Recommended vitamin needs Add folic acid and thiamine daily due to hx of alcohol use. Nutritional Risk Nutritional risk Moderate Follow up date 01/15/15 ilabo Saleem myrick MD - 01/10/2015 12:32 PM PDT Progress Notes by Saleem Shore MD at 01/10/15 1232 Author: Saleem Shore MD Service: General Surgery Author Type: Physician Filed: 01/10/15 1239 Date of Service: 01/10/15 1232 Status: Signed Statistical Reporting Analyst: Saleem Shore MD (Physician) [facility] Service: Colon & Rectal Surgery Progress Note Hospital Day: LOS: 7 days Post-Op Day: 7 Day Post-Op SUBJECTIVE Patient Summary: S/P Coloanal pull-through for low rectal cancer. Events Overnight: ostomy with high output.no nausea, no vomited today. ambulatory. Shashank n controlled. Scheduled Medications acetaminophen 1,000 mg Intravenous Q6H atorvastatin 40 mg Oral Nightly bacitracin Topical BID heparin (porcine) 5000 unit/0.5mL 5,000 Units Subcutaneous Q8H megestrol 400 mg Oral Daily metoprolol 25 mg Oral BID pantoprazole 40 mg Intravenous QAM AC sodium chloride (bolus) 1,000 mL Intravenous Once tamsulosin 0.4 mg Oral after dinner Continuous Infusions dextrose 5 % and 0.9 % NaCl with KCl 20 mEq 110 mL/hr at 01/10/15 0559 PRN Medications magnesium sulfate OR magnesium sulfate OR magnesium sulfate, metoclopramide, morphi ne OR morphine OR morphine, ondansetron OR ondansetron, phosphorus OR sodium phosphate IVPB 15 mmol OR sodium phosphate IVPB 30 mmol, polyethylene glycol, potassium chloride OR potassium chloride OR potassium chloride, promethazine, zolpidem OBJECTIVE Vital Signs: BP 125/62 mmHg | Pulse 96 | Temp(Src) 99.2 F (37.3 C) (Oral) | Resp 14 | Ht 1.626 m (5' 4") | Wt 72.8 kg (160 lb 7.9 oz) | BMI 27.54 kg/m2 | SpO2 96% Temp: [98.1 F (36.7 C)-99.2 F (37.3 C)] 99.2 F (37.3 C) (01/10 1129) BP: (104-125)/(60-68) 125/62 mmHg (01/10 1129) Heart Rate: [77-96] 96 (01/10 112) Resp: [14-18] 14 (01/10 1129) SpO2: [95 %-98 %] 96 % (10/16 1129) Physical Exam Constitutional: He is oriented to person, place, and time. He appears well-developed and we ll-nourished. No distress. HENT: Head: Atraumatic. Eyes: Pupils are equal, round, and reactive to light. Neck: Neck supple. Cardiovascular: Normal rate. Pulmonary/Chest: Effort normal. No respiratory distress. Abdominal: Soft. He exhibits no distension. There is no tenderness. Genitourinary: Neurological: He is alert and oriented to person, place, and time. Skin: Skin is warm. He is not diaphoretic. Psychiatric: He has a normal mood and affect. Vitals reviewed. DATA CBC: Lab Results Component Value Date WBC 4.68 01/10/2015 RBC 3.87* 01/10/2015 HGB 13.3 01/10/2015 HCT 38.1* 01/10/2015 MCV 98.6 01/10/2015 MCH 34.4* 01/10/2015 MCHC 34.9 01/10/2015 RDW 40.3 01/10/2015 PLT 256 01/10/2015 MPV 8.4 01/10/2015 DIFFTYPE AUTOMATED 01/10/2015 BMP: Lab Results Component Value Date NA 131* 01/10/2015 K 4.6 01/10/2015 CL 101 01/10/2015 CO2 24 01/10/2015 ANIONGAP 11 01/10/2015 GLUF 131* 01/10/2015 BUN 14 01/10/2015 CREATININE 0.93 01/10/2015 BCR 15 01/10/2015 CA 9.1 01/10/2015 EGFR >60 01/10/2015 Magnesium: Lab Results Component Value Date MG 1.7 01/10/2015 Phosphorus: Lab Results Component Value Date PHOS 3.8 01/10/2015 PROBLEM LIST Principal Problem: Atrial fibrillation with RVR (HCC) Active Problems: Rectal cancer (HCC) Persistent atrial fibrillation (HCC) Hyperlipidemia Abdominal pain Anemia Hyposmolality and/or hyponatremia ASSESSMENT & PLAN S/P Coloanal pull-through for low rectal cancer POD#7. Still with high ostomy output But is thickening up. - regular diet - ambulate. - replete lytes - NS bolus. Disposition: Code Status: Full Code Saleem Shore MD 01/10/2015 onversion Transac tion, Provider Unknown - 01/10/2015 12:14 PM PDTFormatting of this note might be different f rom the original. Case Management by BRIA Colindres at 01/10/15 1214 Author: BRIA Colindres Service: (none) Author Type: Tube Bender Hand Filed: 01/10/15 1216 Date of Service: 01/10/154 Status: Signed Statistical Reporting Analyst: BRIA Colindres (Tube Bender Hand) 01/10/15 1200 Anticipated Disposition Facility Type Home health care Medicare Important Message (GAUTAM) (given 01/09) Home Health Care Facility Other (comment) ([facility] ) Rcvd call from [facility] - they req call back - called them back at [phone] - they stated tht they could not take pt if he did not have a pcp - Called [facility] in [place] - pt is established with them - Rosibel Hernandez - set up f ollow up with them on 01/20 - at 1130am entered info AVS - They req signed F2F was in chart - faxed F2F and referral Pt will be sent home with a few supplies so that HH can then get out and get all supplies o rdered HH will need to be called on day of DC so that they are aware [facility] [place] onver alex Transaction, Provider Unknown - 01/10/2015 10:47 AM PDT Nurse Progress Note by Kayli Fletcher RN at 01/10/151046 Author: Kayli Fletcher RN Service: (none) Author Type: Registered Nurse Filed: 01/10/15 1050 Date of Service: 01/10/157 Status: Signed Statistical Reporting Analyst: Kayli Fletcher RN (Registered Nurse) Friend Liborio Escobar called to give update per his request, no answer, left my name and n umber on voicemail. Kayli Fletcher Hardeep Williamson MD - 01/10/2015 10:43 AM PDT Progress Notes by Hardeep Suarez MD at 01/10/15 104 Author: Hardeep Suarez MD Service: Hospitalist Author Type: Physician Filed: 01/10/154 Date of Service: 01/10/151042 Status: Signed Statistical Reporting Analyst: Hardeep Suarez MD (Physician) [facility] Service: Hospitalist Progress Note Pt: Jose Eaton AGE/SEX: 64 y.o. male ROOM: [address] [place] [address] : 1950 PCP: PER PT NONE ADMIT DATE: 01/03/2015 TODAY'S DATE: 01/10/2015 Hospital Day/Hospital Course: LOS: 7 days 64-year-old gentleman with past medical history of rectal cancer, hyperlipidemia, on chemot herapy with 5-FU and he was cleared from oncology to proceed with the surgery. Status post biopsy which is consistent with invasive moderately differentiated adenocarcinoma. Consulta tion was called in because of atrial fibrillation. SP Robotic Ultra-low Anterior resection, total mesorectal excision, complete mobilization of t he splenic flexure, Rigid Proctoscopy, Hand-sewn coloanal pull through and creation of a div erting loop ileostomy. SUBJECTIVE: Patient seen and examine. Decreased urine output last night. Gave 500 bolus put out 800 c c. He said he is passing gas Complaint of abdominal pain has improved. No chest pain, SOB, MEDINA. No cough on recumbency. Had no orthopnea or PND. No fever. No dizziness or lightheade dness. Scheduled Medications: acetaminophen 1,000 mg Intravenous Q6H atorvastatin 40 mg Oral Nightly bacitracin Topical BID heparin (porcine) 5000 unit/0.5mL 5,000 Units Subcutaneous Q8H magnesium sulfate 2 g Intravenous Once metoprolol 25 mg Oral BID pantoprazole 40 mg Intravenous QAM AC tamsulosin 0.4 mg Oral after dinner Continuous Infusions dextrose 5 % and 0.9 % NaCl with KCl 20 mEq 110 mL/hr at 01/10/15 0559 PRN Medications magnesium sulfate OR magnesium sulfate OR magnesium sulfate, metoclopramide, morphi ne OR morphine OR morphine, ondansetron OR ondansetron, phosphorus OR sodium phosphate IVPB 15 mmol OR sodium phosphate IVPB 30 mmol, polyethylene glycol, potassium chloride OR potassium chloride OR potassium chloride, promethazine, zolpidem Allergy: Allergies Allergen Reactions Seasonal Allergies [Other-Environmental] Itching OBJECTIVE: Vitals: Patient Vitals for the past 24 hrs: BP Temp Temp src Pulse Resp SpO2 01/10/15 0725 121/60 mmHg 98.8 F (37.1 C) Oral 77 14 98 % 01/10/15 0319 117/68 mmHg 98.1 F (36.7 C) Oral 90 16 95 % 01/09/15 2316 104/63 mmHg 98.1 F (36.7 C) Oral 90 16 96 % 01/09/15 2002 123/68 mmHg 98.5 F (36.9 C) Oral 96 18 95 % 01/09/15 1516 105/68 mmHg 98.8 F (37.1 C) Oral 89 16 98 % 01/09/15 1136 107/59 mmHg 98.7 F (37.1 C) Oral 60 16 96 % I&O Detailed Table: Intake/Output Summary (Last 24 hours) at 01/10/15 1043 Last data filed at 01/10/15 1023 Gross per 24 hour Intake 3373 ml Output 5460 ml Net -2087 ml No data found. Hemodynamics Last 24hrs: Physical Examination: Physical exam remain unchanged from yesterday as I did examine him today on 01/10/2015 Constitutional: Alert and oriented to person, place, and time. Appears well-developed and w ell-nourished. HEENT: Neck supple, no JVD, non icteric sclera. Cardiovascular: Normal rate, regular rhythm, normal heart sounds with S1 and S2, and intact distal pulses. Exam reveals no gallop and no friction rub. No murmur heard. Pulmonary/Chest: Effort normal and breath sounds normal. No stridor. No respiratory distres s. no wheezes. no rales. exhibits no tenderness. Abdominal: Status post surgery and ileostomy having good output Extremeties/Musculoskeletal: Normal range of motion.exhibits no tenderness. exhibits no ed kaela. Neurological: Alert and oriented to person, place, and time. Has normal reflexes. No cran ial nerve deficit. Exhibits normal muscle tone. Coordination normal. Skin: Skin is warm and dry. No rash noted. No erythema. No pallor. Psychiatric: Has a normal mood and affect. Behavior is normal. Judgment normal. LABS: Recent Labs Lab 01/10/1544801/09/1541 01/08/15 0452 WBC 4.68 7.93 4.96 HGB 13.3 13.2 11.2* HCT 38.1* 37.6* 32.3* PLT 256 223 204 NEUTOPHILPCT 74.27 84.48 73.92 MONOPCT 14.96 7.48 8.93 Recent Labs Lab 01/10/1544801/09/15 0541 01/08/15 0452 NA 131* 129* 131* K 4.6 4.1 3.9 CL 101 100 104 CO2 24 23 23 BUN 14 7* 7* CREATININE 0.93 0.54* 0.68* Phosphorus: Lab Results Component Value Date PHOS 3.8 01/10/2015 Recent Labs Lab 01/10/1544801/09/15 0541 01/08/15 1147 MG 1.7 1.7 2.5* Recent Labs Lab 01/05/15 0903 TSH 2.53 Recent Labs Lab 01/05/15 1514 01/05/15 0903 CKTOTAL 157 177 TROPONINI <0.020 <0.020 CKMBINDEX 0.8 0.8 PROBLEM LIST Principal Problem: Atrial fibrillation with RVR (HCC) Active Problems: Rectal cancer (HCC) Persistent atrial fibrillation (HCC) Hyperlipidemia Abdominal pain Anemia Hyposmolality and/or hyponatremia ASSESSMENT & PLAN 64-year-old gentleman with past medical history of rectal cancer, hyperlipidemia, on chemot herapy with 5-FU and he was cleared from oncology to proceed with the surgery. Status post biopsy which is consistent with invasive moderately differentiated adenocarcinoma. Consulta tion was called in because of atrial fibrillation. Principal Problem: Postoperative Atrial fibrillation with RVR (HCC): He is doing great. Overnight he has a low urine output after giving 500 bolus he put out 800 cc. His atrial fibrillation has resolved now. He remained in normal sinus rhythm. It was a brief episode when he was in atrial fibrillation. Heart rate on beta blockers. I am going to continue with beta blockers. I do not think he needs an anticoagulation at this ti me. His hiccup has resolved. No change in assessment and plan Active Problems: Rectal cancer (HCC) with abdominal pain: Status post surgery Hyperlipidemia unspecified: Continue with statins Anemia: Chronic anemia of malignancy Hyposmolality and/or hyponatremia: It is stable. Improving continue to monitor HARDEEP SUAREZ MD, FACP 01/10/2015 10:43 AM Dictation software, [employer], used which may contain error for similar sounding words even af ter review. Personal communication requested for any clarification. bag. Saleem Rodriguez MD - 01/09/2015 4:02 PM PDT Progress Notes by Saleem Shore MD at 01/09/15 160 Author: Saleem Shore MD Service: General Surgery Author Type: Physician Filed: 01/09/151602 Date of Service: 01/09/151601 Status: Signed Statistical Reporting Analyst: Saleem Shore MD (Physician) [facility] Service: Colon & Rectal Surgery Progress Note Hospital Day: LOS: 6 days Post-Op Day: 6 Day Post-Op SUBJECTIVE Patient Summary: S/P Coloanal pull-through for low rectal cancer. Events Overnight: ostomy with over 3 liters output. Not vomited today. Pain controlled . Scheduled Medications acetaminophen 1,000 mg Intravenous Q6H atorvastatin 40 mg Oral Nightly bacitracin Topical BID heparin (porcine) 5000 unit/0.5mL 5,000 Units Subcutaneous Q8H metoprolol 25 mg Oral BID pantoprazole 40 mg Intravenous QAM AC tamsulosin 0.4 mg Oral after dinner Continuous Infusions dextrose 5 % and 0.9 % NaCl with KCl 20 mEq 110 mL/hr at 01/09/15 0800 PRN Medications magnesium sulfate OR magnesium sulfate OR magnesium sulfate, metoclopramide, morphi ne OR morphine OR morphine, ondansetron OR ondansetron, phosphorus OR sodium phosphate IVPB 15 mmol OR sodium phosphate IVPB 30 mmol, polyethylene glycol, potassium chloride OR potassium chloride OR potassium chloride, promethazine, zolpidem OBJECTIVE Vital Signs: BP 105/68 mmHg | Pulse 89 | Temp(Src) 98.8 F (37.1 C) (Oral) | Resp 16 | Ht 1.626 m (5' 4") | Wt 72.8 kg (160 lb 7.9 oz) | BMI 27.54 kg/m2 | SpO2 98% Temp: [97.8 F (36.6 C)-99.4 F (37.4 C)] 98.8 F (37.1 C) (01/10 1516) BP: (105-143)/(59-73) 105/68 mmHg (01/10 1516) Heart Rate: [60-105] 89 (01/10 1516) Resp: [16-18] 16 (01/10 1516) SpO2: [96 %-98 %] 98 % (01/10 1516) Physical Exam Constitutional: He is oriented to person, place, and time. He appears well-developed and we ll-nourished. No distress. HENT: Head: Atraumatic. Eyes: Pupils are equal, round, and reactive to light. Neck: Neck supple. Cardiovascular: Normal rate. Pulmonary/Chest: Effort normal. No respiratory distress. Abdominal: Soft. He exhibits no distension. There is no tenderness. Genitourinary: Neurological: He is alert and oriented to person, place, and time. Skin: Skin is warm. He is not diaphoretic. Psychiatric: He has a normal mood and affect. Vitals reviewed. DATA CBC: Lab Results Component Value Date WBC 7.93 01/09/2015 RBC 3.85* 01/09/2015 HGB 13.2 01/09/2015 HCT 37.6* 01/09/2015 MCV 97.8 01/09/2015 MCH 34.4* 01/09/2015 MCHC 35.2 01/09/2015 RDW 39.4 01/09/2015 PLT 223 01/09/2015 MPV 8.7 01/09/2015 DIFFTYPE AUTOMATED 01/09/2015 BMP: Lab Results Component Value Date NA 129* 01/09/2015 K 4.1 01/09/2015 CL 100 01/09/2015 CO2 23 01/09/2015 ANIONGAP 10 01/09/2015 GLUF 144* 01/09/2015 BUN 7* 01/09/2015 CREATININE 0.54* 01/09/2015 BCR 13 01/09/2015 CA 9.1 01/09/2015 EGFR >60 01/09/2015 Magnesium: Lab Results Component Value Date MG 1.7 01/09/2015 Phosphorus: Lab Results Component Value Date PHOS 3.7 01/09/2015 PROBLEM LIST Principal Problem: Atrial fibrillation with RVR (HCC) Active Problems: Rectal cancer (HCC) Persistent atrial fibrillation (HCC) Hyperlipidemia Abdominal pain Anemia Hyposmolality and/or hyponatremia ASSESSMENT & PLAN S/P Coloanal pull-through for low rectal cancer POD#6. - regular diet - ambulate. - replete lytes - high ostomy output. Disposition: Code Status: Full Code Saleem Shore MD 01/09/2015 onversion Transac tion, Provider Unknown - 01/09/2015 12:30 PM PDTFormatting of this note might be different f rom the original. Nurse Progress Note by Daren Kolb RN at 01/09/15 2006 Author: Daren Kolb RN Service: (none) Author Type: Registered Nurse Filed: 01/09/15 1745 Date of Service: 01/09/15 1232 Status: Signed Statistical Reporting Analyst: Daren Kolb RN (Registered Nurse) High output from ileostomy. Appliance not sticking at the bottom d/t leaking AILYN drain site that is close to stoma wafer, not allowing proper adherence. Of note, d/t high output in kane y short spurts, the ostomy will drain approximately 400-600ml in less than 30 minutes, perha ps causing the unstable appliance to become too heavy and thus falling off patient's skin. C hange ileostomy appliance 7x. Notified Dr Shore and Dr Suarez who were at bedside. Placed a high output two piece ostomy appliance then attached to a hooker catheter bag. Will contin ue to monitor. DAREN KOLB RN 01/09/2015 5:49 PM Hardeep Williamson MD - 01/09/2015 12:15 PM PDT Progress Notes by Hardeep Suarez MD at 01/09/155 Author: Hardeep Suarez MD Service: Hospitalist Author Type: Physician Filed: 01/09/15 1242 Date of Service: 01/09/155 Status: Signed Statistical Reporting Analyst: Hardeep Suarez MD (Physician) [facility] Service: Hospitalist Progress Note Pt: Jose Eaton AGE/SEX: 64 y.o. male ROOM: [facility] : 1950 PCP: PER PT NONE ADMIT DATE: 01/03/2015 TODAY'S DATE: 01/09/2015 Hospital Day/Hospital Course: LOS: 6 days 64-year-old gentleman with past medical history of rectal cancer, hyperlipidemia, on chemot herapy with 5-FU and he was cleared from oncology to proceed with the surgery. Status post biopsy which is consistent with invasive moderately differentiated adenocarcinoma. Consulta tion was called in because of atrial fibrillation. SP Robotic Ultra-low Anterior resection, total mesorectal excision, complete mobilization of t he splenic flexure, Rigid Proctoscopy, Hand-sewn coloanal pull through and creation of a div erting loop ileostomy. SUBJECTIVE: Patient seen and examine. Over night event noted when he was having nausea and vomiting. He had a good amount of output in the bag. He said he is passing gas Complaint of abdominal pain has improved. No chest pain, SOB, MEDINA. No cough on recumbency. Had no orthopnea or PND . No fever. No dizziness or lightheadedness. Scheduled Medications: acetaminophen 1,000 mg Intravenous Q6H atorvastatin 40 mg Oral Nightly bacitracin Topical BID heparin (porcine) 5000 unit/0.5mL 5,000 Units Subcutaneous Q8H metoprolol 25 mg Oral BID pantoprazole 40 mg Intravenous QAM AC tamsulosin 0.4 mg Oral after dinner Continuous Infusions dextrose 5 % and 0.9 % NaCl with KCl 20 mEq 110 mL/hr at 01/09/15 0800 PRN Medications magnesium sulfate OR magnesium sulfate OR magnesium sulfate, metoclopramide, morphi ne OR morphine OR morphine, ondansetron OR ondansetron, phosphorus OR sodium phosphate IVPB 15 mmol OR sodium phosphate IVPB 30 mmol, polyethylene glycol, potassium chloride OR potassium chloride OR potassium chloride, promethazine, zolpidem Allergy: Allergies Allergen Reactions Seasonal Allergies [Other-Environmental] Itching OBJECTIVE: Vitals: Patient Vitals for the past 24 hrs: BP Temp Temp src Pulse Resp SpO2 01/09/15 1136 107/59 mmHg 98.7 F (37.1 C) Oral 60 16 96 % 01/09/15 0712 125/72 mmHg 98.1 F (36.7 C) Oral 105 16 96 % 01/09/15 0317 120/73 mmHg 98.4 F (36.9 C) Oral 83 18 98 % 01/08/15 2337 125/68 mmHg 99.4 F (37.4 C) Oral 96 18 97 % 01/08/15 1932 143/73 mmHg 97.8 F (36.6 C) Oral 89 16 98 % 01/08/15 1502 114/64 mmHg 97.7 F (36.5 C) Oral 79 16 98 % I&O Detailed Table: Intake/Output Summary (Last 24 hours) at 01/09/15 1215 Last data filed at 01/09/15 1049 Gross per 24 hour Intake 3205 ml Output 4950 ml Net -1745 ml No data found. Hemodynamics Last 24hrs: Physical Examination: Physical exam remain unchanged from yesterday as I did examine him today on 01/09/2015 Constitutional: Alert and oriented to person, place, and time. Appears well-developed and w ell-nourished. HEENT: Neck supple, no JVD, non icteric sclera. Cardiovascular: Normal rate, regular rhythm, normal heart sounds with S1 and S2, and intact distal pulses. Exam reveals no gallop and no friction rub. No murmur heard. Pulmonary/Chest: Effort normal and breath sounds normal. No stridor. No respiratory distres s. no wheezes. no rales. exhibits no tenderness. Abdominal: Status post surgery and ileostomy still having the drain. Extremeties/Musculoskeletal: Normal range of motion.exhibits no tenderness. exhibits no ed kaela. Neurological: Alert and oriented to person, place, and time. Has normal reflexes. No cran ial nerve deficit. Exhibits normal muscle tone. Coordination normal. Skin: Skin is warm and dry. No rash noted. No erythema. No pallor. Psychiatric: Has a normal mood and affect. Behavior is normal. Judgment normal. LABS: Recent Labs Lab 01/09/15 0541 01/08/15 0452 01/07/15 0534 WBC 7.93 4.96 5.52 HGB 13.2 11.2* 11.9* HCT 37.6* 32.3* 35.0* PLT 223 204 214 NEUTOPHILPCT 84.48 73.92 81.53 MONOPCT 7.48 8.93 6.91 Recent Labs Lab 01/09/15 0541 01/08/15 0452 01/07/15 0534 NA 129* 131* 131* K 4.1 3.9 4.1 CL 100 104 104 CO2 23 23 23 BUN 7* 7* 7* CREATININE 0.54* 0.68* 0.58* Phosphorus: Lab Results Component Value Date PHOS 3.7 01/09/2015 Recent Labs Lab 01/09/15 0541 01/08/15 1147 01/08/15 0452 MG 1.7 2.5* 1.5* Recent Labs Lab 01/05/15 0903 TSH 2.53 Recent Labs Lab 01/05/15 1514 01/05/15 0903 CKTOTAL 157 177 TROPONINI <0.020 <0.020 CKMBINDEX 0.8 0.8 PROBLEM LIST Principal Problem: Atrial fibrillation with RVR (HCC) Active Problems: Rectal cancer (HCC) Persistent atrial fibrillation (HCC) Hyperlipidemia Abdominal pain Anemia Hyposmolality and/or hyponatremia ASSESSMENT & PLAN 64-year-old gentleman with past medical history of rectal cancer, hyperlipidemia, on chemot herapy with 5-FU and he was cleared from oncology to proceed with the surgery. Status post biopsy which is consistent with invasive moderately differentiated adenocarcinoma. Consulta tion was called in because of atrial fibrillation. Principal Problem: Postoperative Atrial fibrillation with RVR (HCC): No new symptoms. His atrial fibrillation has resolved now. He remained in normal sinus r hythm. It was a brief episode when he was in atrial fibrillation. Heart rate on beta block ers. I am going to continue with beta blockers. I do not think he needs an anticoagulation at this time. His hiccup has resolved. No change in assessment and plan Active Problems: Rectal cancer (HCC) with abdominal pain: Status post surgery Hyperlipidemia unspecified: Continue with statins Anemia: Chronic anemia of malignancy Hyposmolality and/or hyponatremia: It is stable. Improving continue to monitor HARDEEP SUAREZ MD, FACP 01/09/2015 12:15 PM Dictation software, [employer], used which may contain error for similar sounding words even af ter review. Personal communication requested for any clarification. bag. onversion Transac tion, Provider Unknown - 01/09/2015 11:42 AM PDTFormatting of this note might be different f rom the original. Nurse Progress Note by Lennie Redding RN at 01/09/15 1142 Author: Lennie Redding RN Service: Wound/Ostomy Care Author Type: Registered Nurse Filed: 01/09/15 1143 Date of Service: 01/09/15 114 Status: Signed Statistical Reporting Analyst: Lennie Redding RN (Registered Nurse) Floor RN called and asked for assistance with ostomy bag that will not stick. Pt's skin is now erythremic and tender. Crusted with stomadhesive powder and skin prep. Applied a 2 piece with stomadhesive paste. No family or visitors in the room at this time. Lennie Redding RN 01/09/2015 11:43 AM onver alex Transaction, Provider Unknown - 01/09/2015 10:53 AM PDT Nurse Progress Note by Daren Kolb RN at 01/09/15 1054 Author: Daren Kolb RN Service: (none) Author Type: Registered Nurse Filed: 01/09/15 1056 Date of Service: 01/09/151052 Status: Signed Statistical Reporting Analyst: Daren Kolb RN (Registered Nurse) Patient is complaining of nausea and emesis noted this morning. Patient would not be able t o tolerate po APAP at this time. Of note, ileostomy has had 2250ml of brown, liquid stool since 0700 this morning. Unable to obtain good seal on appliance. Called wound care and spoke with TIMOTEO Hogue. Asked her to come and evaluate ilestomy/stoma/appliance for any recommendations. Will continue to monitor. DAREN KOLB RN 01/09/2015 10:55 AM onver alex Transaction, Provider Unknown - 01/09/2015 10:49 AM PDT Progress Notes by June Mo RPH at 01/09/151048 Author: June Mo RPH Service: Pharmacy Author Type: Pharmacist Filed: 01/09/151048 Date of Service: 01/09/151048 Status: Signed Statistical Reporting Analyst: June Mo RPH (Pharmacist) Patient has been on IV acetaminophen since 01/03 and received 22 doses thus far. Patient medina s an order for a full liquid diet, no complaints of nausea/vomiting per progress note and is receiving other medications orally. Please consider changing to oral acetaminophen when bertha ropriate. onver alex Garzaaction, Provider Unknown - 01/09/2015 8:32 AM PDT Case Management by BRIA Ward at 01/09/15831 Author: BRIA Ward Service: (none) Author Type: Tube Bender Hand Filed: 01/09/15831 Date of Service: 01/09/15831 Status: Signed Statistical Reporting Analyst: BRIA Ward (Tube Bender Hand) is working on arranging for [facility] to provide Ostomy-care and eli REED aleem Christie MD - 01/08/2015 8:47 PM PDT Progress Notes by Saleem Shore MD at 01/08/152046 Author: Saleem Shore MD Service: General Surgery Author Type: Physician Filed: 01/08/152047 Date of Service: 01/08/152046 Status: Signed Statistical Reporting Analyst: Saleem Shore MD (Physician) [facility] Service: Colon & Rectal Surgery Progress Note Hospital Day: LOS: 5 days Post-Op Day: 5 Day Post-Op SUBJECTIVE Patient Summary: S/P Coloanal pull-through for low rectal cancer. Events Overnight: no nausea or vomiting today, ostomy with gas and liquid stool. Ambul ated today. Scheduled Medications acetaminophen 1,000 mg Intravenous Q6H atorvastatin 40 mg Oral Nightly bacitracin Topical BID heparin (porcine) 5000 unit/0.5mL 5,000 Units Subcutaneous Q8H metoprolol 25 mg Oral BID pantoprazole 40 mg Intravenous QAM AC tamsulosin 0.4 mg Oral after dinner Continuous Infusions dextrose 5 % and 0.9 % NaCl with KCl 20 mEq 110 mL/hr at 01/08/15 0756 PRN Medications magnesium sulfate OR magnesium sulfate OR magnesium sulfate, metoclopramide, morphi ne OR morphine OR morphine, ondansetron OR ondansetron, phosphorus OR sodium phosphate IVPB 15 mmol OR sodium phosphate IVPB 30 mmol, polyethylene glycol, potassium chloride OR potassium chloride OR potassium chloride, promethazine, zolpidem OBJECTIVE Vital Signs: BP 143/73 mmHg | Pulse 89 | Temp(Src) 97.8 F (36.6 C) (Oral) | Resp 16 | Ht 1.626 m (5' 4") | Wt 72.8 kg (160 lb 7.9 oz) | BMI 27.54 kg/m2 | SpO2 98% Temp: [97.7 F (36.5 C)-98.5 F (36.9 C)] 97.8 F (36.6 C) (01/09 1932) BP: (97-143)/(57-73) 143/73 mmHg (01/09 1932) Heart Rate: [70-89] 89 (01/09 1932) Resp: [16-18] 16 (01/09 1932) SpO2: [97 %-99 %] 98 % (01/09 1932) Physical Exam Constitutional: He is oriented to person, place, and time. He appears well-developed and we ll-nourished. No distress. HENT: Head: Atraumatic. Eyes: Pupils are equal, round, and reactive to light. Neck: Neck supple. Cardiovascular: Normal rate. Pulmonary/Chest: Effort normal. No respiratory distress. Abdominal: Soft. He exhibits no distension. There is no tenderness. Genitourinary: Neurological: He is alert and oriented to person, place, and time. Skin: Skin is warm. He is not diaphoretic. Psychiatric: He has a normal mood and affect. Vitals reviewed. DATA CBC: Lab Results Component Value Date WBC 4.96 01/08/2015 RBC 3.27* 01/08/2015 HGB 11.2* 01/08/2015 HCT 32.3* 01/08/2015 MCV 98.9 01/08/2015 MCH 34.4* 01/08/2015 MCHC 34.8 01/08/2015 RDW 41.6 01/08/2015 PLT 204 01/08/2015 MPV 8.5 01/08/2015 DIFFTYPE AUTOMATED 01/08/2015 BMP: Lab Results Component Value Date NA 131* 01/08/2015 K 3.9 01/08/2015 CL 104 01/08/2015 CO2 23 01/08/2015 ANIONGAP 8 01/08/2015 GLUF 114* 01/08/2015 BUN 7* 01/08/2015 CREATININE 0.68* 01/08/2015 BCR 10 01/08/2015 CA 8.5 01/08/2015 EGFR >60 01/08/2015 Magnesium: Lab Results Component Value Date MG 2.5* 01/08/2015 Phosphorus: Lab Results Component Value Date PHOS 3.2 01/08/2015 PROBLEM LIST Principal Problem: Atrial fibrillation with RVR (HCC) Active Problems: Rectal cancer (HCC) Persistent atrial fibrillation (HCC) Hyperlipidemia Abdominal pain Anemia Hyposmolality and/or hyponatremia ASSESSMENT & PLAN S/P Coloanal pull-through for low rectal cancer POD#5. - FLD - ambulate. - replete lytes Disposition: Code Status: Full Code Saleem Shore MD 01/08/2015 onversion Transac tion, Provider Unknown - 01/08/2015 1:28 PM PDTFormatting of this note might be different f rom the original. Progress Notes by Linda Gant RN at 01/08/15 3771 Author: Linda Gant RN Service: Wound/Ostomy Care Author Type: Registered Nurse Filed: 01/08/15 8342 Date of Service: 01/08/151327 Status: Signed Statistical Reporting Analyst: Linda Gant RN (Registered Nurse) [facility] Service: Ostomy Care Hospital Day: LOS: 5 days Post-Op Day: 5 Days Post-Op SUBJECTIVE Patient Summary: Ostomy nurse in for continued ostomy teaching. Burkinan interpretor present. S/p ultra LAR with creation of diverting loop ileostomy. Events Overnight: Patient feeling better. Denies pain, nausea. Thin brown effluent in bag. Mckoy catheter fell out spontaneously and was in patient's ostomy pouch. Dr. Gini cherry aware. OBJECTIVE Ostomy Type: ileostomy Ostomy site: red and moist. Measures 1 1/8" x 1 3/4", oval. Abdomen tight. Oliva-stomal: Erythema and denuded Current Appliance: 30-40 mm one-piece moldable. This seems to be working well for patient to mold around his distended abdomen. PROBLEM LIST Principal Problem: Atrial fibrillation with RVR (HCC) Active Problems: Rectal cancer (HCC) Persistent atrial fibrillation (HCC) Hyperlipidemia Abdominal pain Anemia Hyposmolality and/or hyponatremia ASSESSMENT & PLAN Ostomy appliance change demonstrated to patient. 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 Crusted oliva-stomal skin with st omahesive powder and skin prep wipes and new appliance placed. Patient has a ailyn drain to RL Q there is having a moderate amount of serous peritubular drainage. Cleansed this and used sensicare barrier cream to denuded skin. Placed optilock over. Patient has anxiety over being able to manage his ostomy on his own when he goes home. He does have a friend that believes would be willing to help him. He will call her today and s ee if she can come in tomorrow so we can teach her too. Recommended to CM to set him up wit Home Health as well. Patient lives in [place]. [facility] abhishek s it wasn't done yesterday, order number: #[id number]. Patient provided with cymro Ostomy p acket. Did encourage patient to start, with RN assist, to learn how to empty his own bag. He agreed to this. Plan will be to return tomorrow and have patient and/or his friend do so me more hands-on ostomy care and review ostomy packet after he has had a chance to read it. Thank you for allowing me to participate in the care of this patient. I will continue to follow with you. Please call if there are any additional questions. Linda Gant RN, CWON 01/08/2015 Hardeep Williamson MD - 01/08/2015 11:13 AM PDT Progress Notes by Hardeep Suarez MD at 01/08/15 1113 Author: Hardeep Suarez MD Service: Hospitalist Author Type: Physician Filed: 01/08/15 1138 Date of Service: 01/08/151112 Status: Signed Statistical Reporting Analyst: Hardeep Suarez MD (Physician) [facility] Service: Hospitalist Progress Note Pt: Jose Eaton AGE/SEX: 64 y.o. male ROOM: 426/426-1 : 1950 PCP: PER PT NONE ADMIT DATE: 01/03/2015 TODAY'S DATE: 01/08/2015 Hospital Day/Hospital Course: LOS: 5 days 64-year-old gentleman with past medical history of rectal cancer, hyperlipidemia, on chemot herapy with 5-FU and he was cleared from oncology to proceed with the surgery. Status post biopsy which is consistent with invasive moderately differentiated adenocarcinoma. Consulta tion was called in because of atrial fibrillation. SP Robotic Ultra-low Anterior resection, total mesorectal excision, complete mobilization of t he splenic flexure, Rigid Proctoscopy, Hand-sewn coloanal pull through and creation of a div erting loop ileostomy. SUBJECTIVE: Patient seen and examine. His hiccup has resolved. He said he is feeling much better toda y. He looks more energetic. He said he is passing gas Complaint of abdominal pain has impr shree. No chest pain, SOB, MEDINA. No cough on recumbency. Had no orthopnea or PND. No fever. No dizziness or lightheadedness. Scheduled Medications: acetaminophen 1,000 mg Intravenous Q6H atorvastatin 40 mg Oral Nightly bacitracin Topical BID heparin (porcine) 5000 unit/0.5mL 5,000 Units Subcutaneous Q8H magnesium sulfate 4 g Intravenous Once metoprolol 25 mg Oral BID pantoprazole 40 mg Intravenous QAM AC tamsulosin 0.4 mg Oral after dinner Continuous Infusions dextrose 5 % and 0.9 % NaCl with KCl 20 mEq 110 mL/hr at 01/08/15 0756 PRN Medications metoclopramide, morphine OR morphine OR morphine, ondansetron OR ondansetron, p olyethylene glycol, promethazine, zolpidem Allergy: Allergies Allergen Reactions Seasonal Allergies [Other-Environmental] Itching OBJECTIVE: Vitals: Patient Vitals for the past 24 hrs: BP Temp Temp src Pulse Resp SpO2 01/08/15 0717 110/59 mmHg 98.5 F (36.9 C) Oral 81 18 98 % 01/08/15 0305 108/62 mmHg 98.2 F (36.8 C) Oral 73 18 97 % 01/07/15 2342 97/57 mmHg 98.2 F (36.8 C) Oral 70 16 97 % 01/07/152005 133/74 mmHg 97.7 F (36.5 C) Oral 83 16 98 % 01/07/15 1506 112/66 mmHg 98 F (36.7 C) Oral 88 16 96 % 01/07/15 1125 111/68 mmHg 98 F (36.7 C) Oral 96 16 99 % I&O Detailed Table: Intake/Output Summary (Last 24 hours) at 01/08/15 1113 Last data filed at 01/08/15 0843 Gross per 24 hour Intake 4032 ml Output 3260 ml Net 772 ml No data found. Hemodynamics Last 24hrs: Physical Examination: Constitutional: Alert and oriented to person, place, and time. Appears well-developed and w ell-nourished. HEENT: Neck supple, no JVD, non icteric sclera. Cardiovascular: Normal rate, regular rhythm, normal heart sounds with S1 and S2, and intact distal pulses. Exam reveals no gallop and no friction rub. No murmur heard. Pulmonary/Chest: Effort normal and breath sounds normal. No stridor. No respiratory distres s. no wheezes. no rales. exhibits no tenderness. Abdominal: Status post surgery and ileostomy still having the drain. Extremeties/Musculoskeletal: Normal range of motion.exhibits no tenderness. exhibits no ed kaela. Neurological: Alert and oriented to person, place, and time. Has normal reflexes. No cran ial nerve deficit. Exhibits normal muscle tone. Coordination normal. Skin: Skin is warm and dry. No rash noted. No erythema. No pallor. Psychiatric: Has a normal mood and affect. Behavior is normal. Judgment normal. LABS: Recent Labs Lab 01/08/1545101/07/1534 01/06/15 0351 WBC 4.96 5.52 4.31 HGB 11.2* 11.9* 11.7* HCT 32.3* 35.0* 34.1* PLT 204 214 169 NEUTOPHILPCT 73.92 81.53 78.12 MONOPCT 8.93 6.91 7.66 Recent Labs Lab 01/08/1545101/07/15 0534 01/06/15 0351 NA 131* 131* 131* K 3.9 4.1 4.2 CL 104 104 104 CO2 23 23 25 BUN 7* 7* 5* CREATININE 0.68* 0.58* 0.59* Phosphorus: Lab Results Component Value Date PHOS 3.2 01/08/2015 Recent Labs Lab 01/08/1545101/07/15 0534 01/06/15 0351 MG 1.5* 1.8 2.1 Recent Labs Lab 01/05/15 0903 TSH 2.53 Recent Labs Lab 01/05/15 1514 01/05/15 0903 CKTOTAL 157 177 TROPONINI <0.020 <0.020 CKMBINDEX 0.8 0.8 PROBLEM LIST Principal Problem: Atrial fibrillation with RVR (HCC) Active Problems: Rectal cancer (HCC) Persistent atrial fibrillation (HCC) Hyperlipidemia Abdominal pain Anemia Hyposmolality and/or hyponatremia ASSESSMENT & PLAN 64-year-old gentleman with past medical history of rectal cancer, hyperlipidemia, on chemot herapy with 5-FU and he was cleared from oncology to proceed with the surgery. Status post biopsy which is consistent with invasive moderately differentiated adenocarcinoma. Consulta tion was called in because of atrial fibrillation. Principal Problem: Postoperative Atrial fibrillation with RVR (HCC): His atrial fibrillation has resolved now. He remained in normal sinus rhythm. It was a b rief episode when he was in atrial fibrillation. Heart rate on beta blockers. I am going t o continue with beta blockers. I do not think he needs an anticoagulation at this time. Hi s hiccup has resolved. Rest of the assessment and plan remains the same Active Problems: Rectal cancer (HCC) with abdominal pain: Status post surgery Hyperlipidemia unspecified: Continue with statins Anemia: Chronic anemia of malignancy Hyposmolality and/or hyponatremia: It is stable. Improving continue to monitor HARDEEP SUAREZ MD, FACP 01/08/2015 11:13 AM Dictation software, [employer], used which may contain error for similar sounding words even af ter review. Personal communication requested for any clarification. onversion Transac tion, Provider Unknown - 01/08/2015 8:08 AM PDTFormatting of this note might be different f rom the original. Case Management by BRIA Ward at 01/08/15807 Author: BRIA Ward Service: (none) Author Type: Tube Bender Hand Filed: 01/08/15807 Date of Service: 01/08/15807 Status: Signed Statistical Reporting Analyst: BRIA Ward (Tube Bender Hand) CM met with pt for continued discharge planning. Pt states she still has no needs and shoul d be able to manage the ostomy at home. CM will continue to follow as needed. Rene REED onver alex Transaction, Provider Unknown - 01/07/2015 5:24 PM PDT Progress Notes by Bety Nguyen RN at 01/07/151723 Author: Bety Nguyen RN Service: Wound/Ostomy Care Author Type: Registered Nurse Filed: 01/07/151731 Date of Service: 01/07/151723 Status: Signed Statistical Reporting Analyst: Bety Nguyen RN (Registered Nurse) Subjective: This pleasant 64 year old male is 3 days post op S/P Coloanal pull-th rough for low rectal cancer. The patient last PM was having nausea and vomiting with little gas or stool in pouch today. Per RN report earlier placed a Mckoy catheter in the ileostomy stoma and th e patient is now feeling better and having output in stoma. Objective: The patients ostomy pouch is intact . Assessment/Plan: The patient would like to have more ostomy teaching tomorrow and requested that we print in structions in Burkinan and return tomorrow for ostomy teaching with the patient. Treatment/Dressing Plan: Ostomy teaching was printed off and to be delivered to the patient tomorrow. A one piece ostomy pouch seems to be working best for the patient at this time. At the patients request free samples were ordered to be delivered to the address he specifi ed from [facility]. BETY NGUYEN RN CWOCN 5:24 PM 01/07/2015 aleem Christie MD - 01/07/2015 5:12 PM PDT Progress Notes by Saleem Shore MD at 01/07/151711 Author: Saleem Shore MD Service: General Surgery Author Type: Physician Filed: 01/07/152027 Date of Service: 01/07/151711 Status: Addendum Statistical Reporting Analyst: Saleem Shore MD (Physician) Related Notes: Original Note by Saleem Shore MD (Physician) filed at 01/07/152025 [facility] Service: Colon & Rectal Surgery Progress Note Hospital Day: LOS: 4 days Post-Op Day: 4 Day Post-Op SUBJECTIVE Patient Summary: S/P Coloanal pull-through for low rectal cancer. Events Overnight: no nausea or vomiting today, refused NGT last night, bag with little gas and liquid stool. Ambulated today. Scheduled Medications acetaminophen 1,000 mg Intravenous Q6H atorvastatin 40 mg Oral Nightly bacitracin Topical BID heparin (porcine) 5000 unit/0.5mL 5,000 Units Subcutaneous Q8H metoprolol 25 mg Oral BID pantoprazole 40 mg Intravenous QAM AC tamsulosin 0.4 mg Oral after dinner Continuous Infusions dextrose 5 % and 0.9 % NaCl with KCl 20 mEq 110 mL/hr at 01/07/15 1258 PRN Medications metoclopramide, morphine OR morphine OR morphine, ondansetron OR ondansetron, p olyethylene glycol, promethazine, zolpidem OBJECTIVE Vital Signs: BP 112/66 mmHg | Pulse 88 | Temp(Src) 98 F (36.7 C) (Oral) | Resp 16 | Ht 1.626 m (5' 4 ") | Wt 72.8 kg (160 lb 7.9 oz) | BMI 27.54 kg/m2 | SpO2 96% Temp: [98 F (36.7 C)-98.7 F (37.1 C)] 98 F (36.7 C) (01/07 1506) BP: (94-118)/(57-68) 112/66 mmHg (01/07 1506) Heart Rate: [72-96] 88 (01/07 1506) Resp: [16] 16 (01/07 1506) SpO2: [95 %-99 %] 96 % (01/07 1506) Physical Exam Constitutional: He is oriented to person, place, and time. He appears well-developed and we ll-nourished. No distress. HENT: Head: Atraumatic. Eyes: Pupils are equal, round, and reactive to light. Neck: Neck supple. Cardiovascular: Normal rate. Pulmonary/Chest: Effort normal. No respiratory distress. Abdominal: Soft. He exhibits no distension. There is no tenderness. Genitourinary: Neurological: He is alert and oriented to person, place, and time. Skin: Skin is warm. He is not diaphoretic. Psychiatric: He has a normal mood and affect. Vitals reviewed. DATA CBC: Lab Results Component Value Date WBC 5.52 01/07/2015 RBC 3.52* 01/07/2015 HGB 11.9* 01/07/2015 HCT 35.0* 01/07/2015 MCV 99.2 01/07/2015 MCH 33.8 01/07/2015 MCHC 34.0 01/07/2015 RDW 40.7 01/07/2015 PLT 214 01/07/2015 MPV 8.5 01/07/2015 DIFFTYPE AUTOMATED 01/07/2015 BMP: Lab Results Component Value Date NA 131* 01/07/2015 K 4.1 01/07/2015 CL 104 01/07/2015 CO2 23 01/07/2015 ANIONGAP 8 01/07/2015 GLUF 115* 01/07/2015 BUN 7* 01/07/2015 CREATININE 0.58* 01/07/2015 BCR 12 01/07/2015 CA 8.6 01/07/2015 EGFR >60 01/07/2015 Magnesium: Lab Results Component Value Date MG 1.8 01/07/2015 Phosphorus: Lab Results Component Value Date PHOS 2.8 01/07/2015 PROBLEM LIST Principal Problem: Atrial fibrillation with RVR (HCC) Active Problems: Rectal cancer (HCC) Persistent atrial fibrillation (HCC) Hyperlipidemia Abdominal pain Anemia Hyposmolality and/or hyponatremia ASSESSMENT & PLAN S/P Coloanal pull-through for low rectal cancer POD#4. Awaiting return of bowel function. Continue with Sips of clears. Ambulate and replete lytes - DC hooker Disposition: Code Status: Full Code Saelem Shore MD 01/07/2015 Clay, Hardeep Duval MD - 01/07/2015 9:47 AM PDT Progress Notes by Hardeep Suarez MD at 01/07/1547 Author: Hardeep Suarez MD Service: Hospitalist Author Type: Physician Filed: 01/07/15 1007 Date of Service: 01/07/1547 Status: Signed Statistical Reporting Analyst: Hardeep Suarez MD (Physician) [facility] Service: Hospitalist Progress Note Pt: Jose Eaton AGE/SEX: 64 y.o. male ROOM: [address] [place] [address] : 1950 PCP: GERALD PT NONE ADMIT DATE: 01/03/2015 TODAY'S DATE: 01/07/2015 Hospital Day/Hospital Course: LOS: 4 days 64-year-old gentleman with past medical history of rectal cancer, hyperlipidemia, on chemot herapy with 5-FU and he was cleared from oncology to proceed with the surgery. Status post biopsy which is consistent with invasive moderately differentiated adenocarcinoma. Consulta tion was called in because of atrial fibrillation. SP Robotic Ultra-low Anterior resection, total mesorectal excision, complete mobilization of t he splenic flexure, Rigid Proctoscopy, Hand-sewn coloanal pull through and creation of a div erting loop ileostomy. SUBJECTIVE: Patient seen and examine. He is having a hiccup today. He said he is passing gas Complain t of abdominal pain has improved. No chest pain, SOB, MEDINA. No cough on recumbency. Had no or thopnea or PND. No fever. No dizziness or lightheadedness. Scheduled Medications: acetaminophen 1,000 mg Intravenous Q6H atorvastatin 40 mg Oral Nightly bacitracin Topical BID heparin (porcine) 5000 unit/0.5mL 5,000 Units Subcutaneous Q8H metoprolol 25 mg Oral BID pantoprazole 40 mg Intravenous QAM AC tamsulosin 0.4 mg Oral after dinner Continuous Infusions dextrose 5 % and 0.9 % NaCl with KCl 20 mEq 110 mL/hr at 01/07/15 0118 PRN Medications morphine OR morphine OR morphine, ondansetron OR ondansetron, polyethylene glyc ol, promethazine, zolpidem Allergy: Allergies Allergen Reactions Seasonal Allergies [Other-Environmental] Itching OBJECTIVE: Vitals: Patient Vitals for the past 24 hrs: BP Temp Temp src Pulse Resp SpO2 01/07/15 0724 94/57 mmHg 98.5 F (36.9 C) Oral 77 16 95 % 01/07/15 0328 115/67 mmHg 98.7 F (37.1 C) Oral 77 16 97 % 01/06/15 2307 98/59 mmHg 98.1 F (36.7 C) Oral 72 16 98 % 01/06/152004 118/60 mmHg 98.6 F (37 C) Oral 89 16 99 % 01/06/15 1641 121/70 mmHg 98.1 F (36.7 C) Oral 74 16 97 % 01/06/15 1252 137/72 mmHg - - - - - 01/06/15 1233 174/89 mmHg - Oral 98 16 96 % I&O Detailed Table: Intake/Output Summary (Last 24 hours) at 01/07/15 0947 Last data filed at 01/07/15 0700 Gross per 24 hour Intake 1434 ml Output 1705 ml Net -271 ml No data found. Hemodynamics Last 24hrs: Physical Examination: Constitutional: Alert and oriented to person, place, and time. Appears well-developed and w ell-nourished. HEENT: Neck supple, no JVD, non icteric sclera. Cardiovascular: Normal rate, regular rhythm, normal heart sounds with S1 and S2, and intact distal pulses. Exam reveals no gallop and no friction rub. No murmur heard. Pulmonary/Chest: Effort normal and breath sounds normal. No stridor. No respiratory distres s. no wheezes. no rales. exhibits no tenderness. Abdominal: Status post surgery and ileostomy still having the drain. Extremeties/Musculoskeletal: Normal range of motion.exhibits no tenderness. exhibits no ed kaela. Neurological: Alert and oriented to person, place, and time. Has normal reflexes. No cran ial nerve deficit. Exhibits normal muscle tone. Coordination normal. Skin: Skin is warm and dry. No rash noted. No erythema. No pallor. Psychiatric: Has a normal mood and affect. Behavior is normal. Judgment normal. LABS: Recent Labs Lab 01/07/1553301/06/1535001/05/15445 WBC 5.52 4.31 5.15 HGB 11.9* 11.7* 11.5* HCT 35.0* 34.1* 33.7* PLT 214 169 155 NEUTOPHILPCT 81.53 78.12 83.91 MONOPCT 6.91 7.66 6.81 Recent Labs Lab 01/07/1553301/06/1535001/05/15445 NA 131* 131* 132* K 4.1 4.2 3.7 CL 104 104 104 CO2 23 25 23 BUN 7* 5* 6* CREATININE 0.58* 0.59* 0.51* Phosphorus: Lab Results Component Value Date PHOS 2.8 01/07/2015 Recent Labs Lab 01/07/15 0534 01/06/15 0351 01/05/15 0903 MG 1.8 2.1 1.7 Recent Labs Lab 01/05/15 0903 TSH 2.53 Recent Labs Lab 01/05/15 1514 01/05/15 0903 CKTOTAL 157 177 TROPONINI <0.020 <0.020 CKMBINDEX 0.8 0.8 PROBLEM LIST Principal Problem: Atrial fibrillation with RVR (HCC) Active Problems: Rectal cancer (HCC) Persistent atrial fibrillation (HCC) Hyperlipidemia Abdominal pain Anemia Hyposmolality and/or hyponatremia ASSESSMENT & PLAN 64-year-old gentleman with past medical history of rectal cancer, hyperlipidemia, on chemot herapy with 5-FU and he was cleared from oncology to proceed with the surgery. Status post biopsy which is consistent with invasive moderately differentiated adenocarcinoma. Consulta tion was called in because of atrial fibrillation. Principal Problem: Postoperative Atrial fibrillation with RVR (HCC): He remained in normal sinus rhythm. It was a brief episode when he was in atrial fibrilla tion. Heart rate on beta blockers. I am going to continue with beta blockers. I do not th ink he needs an anticoagulation at this time. Active Problems: Rectal cancer (HCC) with abdominal pain: Status post surgery Hyperlipidemia unspecified: Continue with statins Anemia: Chronic anemia of malignancy Hyposmolality and/or hyponatremia: It is stable. Improving continue to monitor HARDEEP SUAREZ MD, FACP 01/07/2015 9:47 AM Dictation software, [employer], used which may contain error for similar sounding words even af ter review. Personal communication requested for any clarification. Saleem Rodriguez MD - 01/06/2015 8:58 PM PDT Progress Notes by Saleem Shore MD at 01/06/152057 Author: Saleem Shore MD Service: General Surgery Author Type: Physician Filed: 01/07/152036 Date of Service: 01/06/152057 Status: Addendum Statistical Reporting Analyst: Saleem Shore MD (Physician) Related Notes: Original Note by Saleem Shore MD (Physician) filed at 01/06/152102 [facility] Service: Colon & Rectal Surgery Progress Note Hospital Day: LOS: 3 days Post-Op Day: 3 Day Post-Op SUBJECTIVE Patient Summary: S/P Coloanal pull-through for low rectal cancer. Events Overnight: nausea and vomiting, refused NGT, bag with little gas and liquid sto ol. Ambulated today. Scheduled Medications acetaminophen 1,000 mg Intravenous Q6H atorvastatin 40 mg Oral Nightly bacitracin Topical BID heparin (porcine) 5000 unit/0.5mL 5,000 Units Subcutaneous Q8H metoprolol 25 mg Oral BID pantoprazole 40 mg Intravenous QAM AC tamsulosin 0.4 mg Oral after dinner Continuous Infusions dextrose 5 % and 0.9 % NaCl with KCl 20 mEq 110 mL/hr at 01/06/15 1550 PRN Medications morphine OR morphine OR morphine, ondansetron OR ondansetron, polyethylene glyc ol, promethazine, zolpidem OBJECTIVE Vital Signs: BP 118/60 mmHg | Pulse 89 | Temp(Src) 98.6 F (37 C) (Oral) | Resp 16 | Ht 1.626 m (5' 4 ") | Wt 72.8 kg (160 lb 7.9 oz) | BMI 27.54 kg/m2 | SpO2 99% Temp: [97.8 F (36.6 C)-98.6 F (37 C)] 98.6 F (37 C) (01/06 2005) BP: (118-174)/(60-89) 118/60 mmHg (01/06 2005) Heart Rate: [74-98] 89 (01/06 2005) Resp: [16-18] 16 (01/06 2005) SpO2: [96 %-99 %] 99 % (01/06 2005) Physical Exam Constitutional: He is oriented to person, place, and time. He appears well-developed and we ll-nourished. No distress. HENT: Head: Atraumatic. Eyes: Pupils are equal, round, and reactive to light. Neck: Neck supple. Cardiovascular: Normal rate. Pulmonary/Chest: Effort normal. No respiratory distress. Abdominal: Soft. He exhibits no distension. There is no tenderness. Genitourinary: Neurological: He is alert and oriented to person, place, and time. Skin: Skin is warm. He is not diaphoretic. Psychiatric: He has a normal mood and affect. Vitals reviewed. DATA CBC: Lab Results Component Value Date WBC 4.31 01/06/2015 RBC 3.39* 01/06/2015 HGB 11.7* 01/06/2015 HCT 34.1* 01/06/2015 MCV 100.6* 01/06/2015 MCH 34.5* 01/06/2015 MCHC 34.3 01/06/2015 RDW 41.1 01/06/2015 PLT 169 01/06/2015 MPV 9.0 01/06/2015 DIFFTYPE AUTOMATED 01/06/2015 BMP: Lab Results Component Value Date NA 131* 01/06/2015 K 4.2 01/06/2015 CL 104 01/06/2015 CO2 25 01/06/2015 ANIONGAP 6 01/06/2015 GLUF 101* 01/06/2015 BUN 5* 01/06/2015 CREATININE 0.59* 01/06/2015 BCR 8 01/06/2015 CA 8.2* 01/06/2015 EGFR >60 01/06/2015 Magnesium: Lab Results Component Value Date MG 2.1 01/06/2015 Phosphorus: Lab Results Component Value Date PHOS 3.0 01/06/2015 PROBLEM LIST Principal Problem: Atrial fibrillation with RVR (HCC) Active Problems: Rectal cancer (HCC) Persistent atrial fibrillation (HCC) Hyperlipidemia Abdominal pain Anemia Hyposmolality and/or hyponatremia ASSESSMENT & PLAN S/P Coloanal pull-through for low rectal cancer POD#3. Awaiting return of bowel function. - Patient refuse NGT despite vomiting. Continue with Sipss of clears. Ambulate and replete lytes - keep hooker another day, deep pelvic dissection and coloanal pullthrough and a large prost ate. Started patient on Flomax Disposition: Code Status: Full Code Saleem Shore MD 01/06/2015 onversion Transac tion, Provider Unknown - 01/06/2015 5:08 PM PDTFormatting of this note might be different f rom the original. Progress Notes by Bety Nguyen RN at 01/06/151707 Author: Bety Nguyen RN Service: Wound/Ostomy Care Author Type: Registered Nurse Filed: 01/06/151714 Date of Service: 01/06/151707 Status: Signed Statistical Reporting Analyst: Bety Nguyen RN (Registered Nurse) [facility] Service: Ostomy Care Consult Note Hospital Day: LOS: 3 days Post-Op Day: 3 Days Post-Op SUBJECTIVE Patient Summary: The patient's RN ask that I assist with an appliance change as the p atient's pouch was not staying in place. OBJECTIVE Ostomy Type: ileostomy, related to Ostomy site:the stoma was pink moist and budded to LLQ measuring 1 1/8" x1 3/4" oval Oliva-stomal: dry and intact with some erythema from frequent leakage. Current Appliance: a one piece Moldable appliance used. PROBLEM LIST Principal Problem: Atrial fibrillation with RVR (HCC) Active Problems: Rectal cancer (HCC) Persistent atrial fibrillation (HCC) Hyperlipidemia Abdominal pain Anemia Hyposmolality and/or hyponatremia ASSESSMENT & PLAN The patient was most appreciative of getting a pouch which fit. I will plan to return tomorrow with an pension fund manager to do more ostomy teaching for this dear cymro speaking patient. Thank you for allowing me to participate in the care of this patient. I will continue to follow with you. BETY NGUYEN RN [facility] 01/06/2015 Hardeep Williamson MD - 01/06/2015 9:39 AM PDT Progress Notes by Hardeep Suarez MD at 01/06/15938 Author: Hardeep Suarez MD Service: Hospitalist Author Type: Physician Filed: 01/06/15958 Date of Service: 01/06/15938 Status: Addendum Statistical Reporting Analyst: Hardeep Suarez MD (Physician) Related Notes: Original Note by Hardeep Suarez MD (Physician) filed at 01/06/15958 [facility] Service: Hospitalist Progress Note Pt: Jose Eaton AGE/SEX: 64 y.o. male ROOM: [address] [place], [place] [address] : 1950 PCP: GERALD PT NONE ADMIT DATE: 01/03/2015 TODAY'S DATE: 01/06/2015 Hospital Day/Hospital Course: LOS: 3 days 64-year-old gentleman with past medical history of rectal cancer, hyperlipidemia, on chemot herapy with 5-FU and he was cleared from oncology to proceed with the surgery. Status post biopsy which is consistent with invasive moderately differentiated adenocarcinoma. Consulta tion was called in because of atrial fibrillation. SP Robotic Ultra-low Anterior resection, total mesorectal excision, complete mobilization of t he splenic flexure, Rigid Proctoscopy, Hand-sewn coloanal pull through and creation of a div erting loop ileostomy. SUBJECTIVE: Patient seen and examine. He is in normal sinus rhythm. Complaint of abdominal pain.. No chest pain, SOB, MEDINA. No cough on recumbency. Had no orthopnea or PND. No fever. Still feel ing tired and fatigued. No dizziness or lightheadedness. Scheduled Medications: acetaminophen 1,000 mg Intravenous Q6H atorvastatin 40 mg Oral Nightly bacitracin Topical BID heparin (porcine) 5000 unit/0.5mL 5,000 Units Subcutaneous Q8H metoprolol 25 mg Oral BID tamsulosin 0.4 mg Oral after dinner Continuous Infusions dextrose 5 % and 0.9 % NaCl with KCl 20 mEq 110 mL/hr at 01/06/15 0356 PRN Medications morphine OR morphine OR morphine, ondansetron OR ondansetron, polyethylene glyc ol, zolpidem Allergy: Allergies Allergen Reactions Seasonal Allergies [Other-Environmental] Itching OBJECTIVE: Vitals: Patient Vitals for the past 24 hrs: BP Temp Temp src Pulse Resp SpO2 01/06/15 0749 133/74 mmHg 97.9 F (36.6 C) Oral 81 18 99 % 01/06/15 0551 144/74 mmHg - - - - - 01/06/15 0417 126/79 mmHg 97.9 F (36.6 C) Oral 78 18 99 % 01/05/15 2346 120/73 mmHg 97.8 F (36.6 C) Oral 82 18 99 % 01/05/15 1958 113/70 mmHg 97.8 F (36.6 C) Oral 79 18 97 % 01/05/15 1521 93/58 mmHg 97.8 F (36.6 C) Oral 80 16 94 % 01/05/15 1445 - - - 96 - - 01/05/15 1430 - - - 84 - - 01/05/15 1415 - - - 88 - - 01/05/15 1400 - - - 106 - - 01/05/15 1345 - - - 112 - - 01/05/15 1330 - - - 96 - - 01/05/15 1315 - - - 102 - - 01/05/15 1300 - - - 88 - - 01/05/15 1245 - - - 114 - - 01/05/15 1230 - - - 90 - - 01/05/15 1156 - - - 100 - - 01/05/15 1138 115/67 mmHg 97.9 F (36.6 C) Oral 82 18 98 % 01/05/15 1115 - - - 115 - - 01/05/15 1058 - - - 98 - - I&O Detailed Table: Intake/Output Summary (Last 24 hours) at 01/06/15 0939 Last data filed at 01/06/15 0848 Gross per 24 hour Intake 2370 ml Output 3421 ml Net -1051 ml Patient Vitals for the past 96 hrs: Weight 01/03/15 0638 72.8 kg (160 lb 7.9 oz) Hemodynamics Last 24hrs: Physical Examination: Constitutional: Alert and oriented to person, place, and time. Appears well-developed and w ell-nourished. HEENT: Neck supple, no JVD, non icteric sclera. Cardiovascular: Normal rate, regular rhythm, normal heart sounds with S1 and S2, and intact distal pulses. Exam reveals no gallop and no friction rub. No murmur heard. Pulmonary/Chest: Effort normal and breath sounds normal. No stridor. No respiratory distres s. no wheezes. no rales. exhibits no tenderness. Abdominal: Status post surgery and ileostomy. Extremeties/Musculoskeletal: Normal range of motion.exhibits no tenderness. exhibits no ed kaela. Neurological: Alert and oriented to person, place, and time. Has normal reflexes. No cran ial nerve deficit. Exhibits normal muscle tone. Coordination normal. Skin: Skin is warm and dry. No rash noted. No erythema. No pallor. Psychiatric: Has a normal mood and affect. Behavior is normal. Judgment normal. LABS: Recent Labs Lab 01/06/15 0351 01/05/156 01/04/15 0545 WBC 4.31 5.15 6.50 HGB 11.7* 11.5* 10.4* HCT 34.1* 33.7* 30.0* PLT 169 155 161 NEUTOPHILPCT 78.12 83.91 -- MONOPCT 7.66 6.81 -- Recent Labs Lab 01/06/15 03501/05/15 0446 01/04/15 0545 NA 131* 132* 131* K 4.2 3.7 3.8 CL 104 104 103 CO2 25 23 26 BUN 5* 6* 14 CREATININE 0.59* 0.51* 0.67* Phosphorus: Lab Results Component Value Date PHOS 3.0 01/06/2015 Recent Labs Lab 01/06/15 0351 01/05/15 0903 01/05/15 0446 MG 2.1 1.7 1.7 Recent Labs Lab 01/05/15 0903 TSH 2.53 Recent Labs Lab 01/05/15 1514 01/05/15 0903 CKTOTAL 157 177 TROPONINI <0.020 <0.020 CKMBINDEX 0.8 0.8 PROBLEM LIST Principal Problem: Atrial fibrillation with RVR (HCC) Active Problems: Rectal cancer (HCC) Persistent atrial fibrillation (HCC) Hyperlipidemia Abdominal pain Anemia Hyposmolality and/or hyponatremia ASSESSMENT & PLAN 64-year-old gentleman with past medical history of rectal cancer, hyperlipidemia, on chemot herapy with 5-FU and he was cleared from oncology to proceed with the surgery. Status post biopsy which is consistent with invasive moderately differentiated adenocarcinoma. Consulta tion was called in because of atrial fibrillation. Principal Problem: Atrial fibrillation with RVR (HCC): He is in normal sinus rhythm at this time. It was a brief episode when he was in atrial f ibrillation. Heart rate on beta blockers. I am going to continue with beta blockers. I do not think he needs an anticoagulation at this time. Active Problems: Rectal cancer (HCC) with abdominal pain: Status post surgery Hyperlipidemia unspecified: Continue with statins Anemia: Chronic anemia of malignancy Hyposmolality and/or hyponatremia: Improving continue to monitor HARDEEP SUAREZ MD, FACP 01/06/2015 9:39 AM Dictation software, [employer], used which may contain error for similar sounding words even af ter review. Personal communication requested for any clarification. onversion Transac tion, Provider Unknown - 01/05/2015 4:16 PM PDTFormatting of this note might be different f rom the original. Case Management by Heather Kan RN at 01/05/15 161 Author: Heather Kan RN Service: (none) Author Type: Registered Nurse Filed: 01/05/151616 Date of Service: 01/05/151615 Status: Signed Statistical Reporting Analyst: Heather Kan RN (Registered Nurse) 01/05/151613 Discharge Planning Evaluation Admitting Diagnosis rectal cancer Readmission No Living Arrangements Alone Support Systems Friends/neighbors (Shawn Capone [phone]) Type of Residence Private residence House type Mobile home Independent with ADL's Yes Independent with Mobility Yes Home Care Services No Caregiver after Discharge No Mental Status Oriented Anticipated Discharge Plan Post Acute Care Needs None at this time Plan communicated to patient/family Yes Resources Financial concerns No Transportation issues No Patient/Family concerns No Anticipated Disposition Facility Type Home Medicare Important Message (GAUTAM) Not applicable Met with: patient and discussed discharge planning, Pt is a 64 y.o., male admitted for surg tomasa. He lives alone and has no involvement from his family. His friend Liborio Escobar [phone] helps his whenever he can. Patient's PCP is: PER PT NONE Patient's insurance:Medicare Coverage concerns: none Medication coverage/concerns: none [facility] Delivery: Community resources utilized / needed: none Assistance in transportation: Liborio Identification of any specific education / training: none Barriers to Discharge / Alternative housing needed: none Anticipated DCP: home Heather Kan aleem Christie MD - 01/05/2015 8:54 AM PDT Progress Notes by Saleem Shore MD at 01/05/15853 Author: Saleem Shore MD Service: General Surgery Author Type: Physician Filed: 01/05/15857 Date of Service: 01/05/15853 Status: Signed Statistical Reporting Analyst: Saleem Shore MD (Physician) [facility] Service: Colon & Rectal Surgery Progress Note Hospital Day: LOS: 2 days Post-Op Day: 2 Day Post-Op SUBJECTIVE Patient Summary: S/P Coloanal pull-through for low rectal cancer. Events Overnight: His HR is up and down early hours this am, no chest pain. Abdominal pain is improved. Ostomy with green effluent, no gas yet, no nausea or vomiting. ambulatory Scheduled Medications acetaminophen 1,000 mg Intravenous Q6H atorvastatin 40 mg Oral Nightly bacitracin Topical BID heparin (porcine) 5000 unit/0.5mL 5,000 Units Subcutaneous Q8H magnesium sulfate 3 g Intravenous Once potassium chloride 40 mEq Intravenous Once sodium phosphate 30 mmol Intravenous Once tamsulosin 0.4 mg Oral after dinner Continuous Infusions dextrose 5 % and 0.9 % NaCl with KCl 20 mEq 110 mL/hr at 01/05/15 0800 PRN Medications morphine OR morphine OR morphine, ondansetron OR ondansetron, polyethylene glyc ol, zolpidem OBJECTIVE Vital Signs: BP 124/69 mmHg | Pulse 120 | Temp(Src) 97.8 F (36.6 C) (Oral) | Resp 18 | Ht 1.626 m (5 ' 4") | Wt 72.8 kg (160 lb 7.9 oz) | BMI 27.54 kg/m2 | SpO2 94% Temp: [97.8 F (36.6 C)-98.4 F (36.9 C)] 97.8 F (36.6 C) (01/05 713) BP: (120-147)/(69-88) 124/69 mmHg (01/05 713) Heart Rate: [67-129] 120 (01/05 713) Resp: [16-18] 18 (01/05 713) SpO2: [93 %-98 %] 94 % (01/05 713) Physical Exam Constitutional: He is oriented to person, place, and time. He appears well-developed and we ll-nourished. No distress. HENT: Head: Atraumatic. Eyes: Pupils are equal, round, and reactive to light. Neck: Neck supple. Cardiovascular: Tachycardia present. Irregular pulse Pulmonary/Chest: Effort normal. No respiratory distress. Abdominal: Soft. He exhibits no distension. There is no tenderness. Genitourinary: Neurological: He is alert and oriented to person, place, and time. Skin: Skin is warm. He is not diaphoretic. Psychiatric: He has a normal mood and affect. Vitals reviewed. DATA CBC: Lab Results Component Value Date WBC 5.15 01/05/2015 RBC 3.33* 01/05/2015 HGB 11.5* 01/05/2015 HCT 33.7* 01/05/2015 MCV 101.0* 01/05/2015 MCH 34.6* 01/05/2015 MCHC 34.3 01/05/2015 RDW 42.4 01/05/2015 PLT 155 01/05/2015 MPV 9.1 01/05/2015 DIFFTYPE AUTOMATED 01/05/2015 BMP: Lab Results Component Value Date NA 132* 01/05/2015 K 3.7 01/05/2015 CL 104 01/05/2015 CO2 23 01/05/2015 ANIONGAP 9 01/05/2015 GLUF 124* 01/05/2015 BUN 6* 01/05/2015 CREATININE 0.51* 01/05/2015 BCR 12 01/05/2015 CA 8.3* 01/05/2015 EGFR >60 01/05/2015 Magnesium: Lab Results Component Value Date MG 1.7 01/05/2015 Phosphorus: Lab Results Component Value Date PHOS 1.9* 01/05/2015 PROBLEM LIST Active Problems: * No active hospital problems. * ASSESSMENT & PLAN S/P Coloanal pull-through for low rectal cancer POD#2. Awaiting return of bowel function. New onset Afib. - Oxygen - EKG, enzymes, Thyroid profile, Hgb A1C. - replete lytes. - continue sips of clears. - keep hooker in today due to ultralow pelvic dissection and large prostate. Continue flomax . - Discussed with Hospitalist team who will kindly evaluate and treat. Disposition: Code Status: Full Code Saleem Shore MD 01/05/2015 Saleem Rodriguez MD - 01/04/2015 11:06 AM PDT Progress Notes by Saleem hSore MD at 01/04/15 1106 Author: Saleem Shore MD Service: General Surgery Author Type: Physician Filed: 01/04/15 1111 Date of Service: 01/04/151105 Status: Signed Statistical Reporting Analyst: Saleem Shore MD (Physician) [facility] Service: Colon & Rectal Surgery Progress Note Hospital Day: LOS: 1 day Post-Op Day: 1 Day Post-Op SUBJECTIVE Patient Summary: S/P Coloanal pull-through for low rectal cancer. Events Overnight: Did well, no events, no nausea or vomiting, no ostomy output yet. P ain well controlled, ambulatory. Scheduled Medications acetaminophen 1,000 mg Intravenous Q6H atorvastatin 40 mg Oral Nightly heparin (porcine) 5000 unit/0.5mL 5,000 Units Subcutaneous Q8H potassium chloride 20 mEq Intravenous Once Continuous Infusions dextrose 5 % and 0.45 % NaCl with KCl 20 mEq PRN Medications morphine OR morphine OR morphine, ondansetron OR ondansetron, polyethylene glyc ol, zolpidem OBJECTIVE Vital Signs: BP 115/65 mmHg | Pulse 84 | Temp(Src) 98 F (36.7 C) (Oral) | Resp 16 | Ht 1.626 m (5' 4 ") | Wt 72.8 kg (160 lb 7.9 oz) | BMI 27.54 kg/m2 | SpO2 100% Temp: [97.7 F (36.5 C)-98.8 F (37.1 C)] 98 F (36.7 C) (01/04 721) BP: (96-142)/(57-85) 115/65 mmHg (01/04 721) Heart Rate: [62-103] 84 (01/04 721) Resp: [8-19] 16 (01/04 721) SpO2: [96 %-100 %] 100 % (01/04 721) FiO2 : [53 %-96 %] 95 % (01/03 1341) Physical Exam Constitutional: He is oriented to person, place, and time. He appears well-developed and we ll-nourished. No distress. HENT: Head: Atraumatic. Eyes: Pupils are equal, round, and reactive to light. Neck: Neck supple. Cardiovascular: Normal rate. Pulmonary/Chest: Effort normal. No respiratory distress. Abdominal: Soft. He exhibits no distension. There is no tenderness. Genitourinary: Neurological: He is alert and oriented to person, place, and time. Skin: Skin is warm. He is not diaphoretic. Psychiatric: He has a normal mood and affect. Vitals reviewed. DATA CBC: Lab Results Component Value Date WBC 6.50 01/04/2015 RBC 2.99* 01/04/2015 HGB 10.4* 01/04/2015 HCT 30.0* 01/04/2015 MCV 100.1* 01/04/2015 MCH 34.7* 01/04/2015 MCHC 34.6 01/04/2015 RDW 42.0 01/04/2015 PLT 161 01/04/2015 MPV 8.3 01/04/2015 DIFFTYPE MANUAL 01/04/2015 BMP: Lab Results Component Value Date NA 131* 01/04/2015 K 3.8 01/04/2015 CL 103 01/04/2015 CO2 26 01/04/2015 ANIONGAP 6 01/04/2015 GLUF 127* 01/04/2015 BUN 14 01/04/2015 CREATININE 0.67* 01/04/2015 BCR 21 01/04/2015 CA 8.1* 01/04/2015 EGFR >60 01/04/2015 Magnesium: Lab Results Component Value Date MG 1.9 01/04/2015 Phosphorus: Lab Results Component Value Date PHOS 2.9 01/04/2015 PROBLEM LIST Active Problems: * No active hospital problems. * ASSESSMENT & PLAN S/P Coloanal pull-through for low rectal cancer POD#1. Awaiting return of bowel function. - replete lytes. - ambulate. - flomax, keep hooker in today. Disposition: Code Status: Full Code Saleem Shore MD 01/04/2015 [email or web address], Aline Deluca [facility] - 01/03/2015 3:54 PM PDT Progress Notes by Aline Cabrales RPH at 01/03/15 1650 Author: Aline Cabrales RPH Service: (none) Author Type: Pharmacist Filed: 01/03/15 297 Date of Service: 01/03/151553 Status: Signed Statistical Reporting Analyst: Aline Cabrales RPH (Pharmacist) Clinical Pharmacy Note - Renal Dose Adjustment Jose Eaton 64 y.o. male Ht Readings from Last 1 Encounters: 01/03/15 1.626 m (5' 4") Wt Readings from Last 1 Encounters: 01/03/15 72.8 kg (160 lb 7.9 oz) CREATININE Date Value Ref Range Status 12/19/2014 0.63* 0.70 - 1.30 mg/dL Final Comment: Testing performed at [facility], [address] [place] [address] Creatinine clearance cannot be calculated (Patient's most recent sCr result is older than t he maximum 3 days allowed.) Pharmacy to renally adjust medications per Dr. Shore Plan: No current Scr. Will follow up once labs are available. Pharmacy will continue to follow and adjust as appropriate. Pharmacist: Aline Cabrales 01/03/2015 3:53 PM onversio n Transaction, Provider Unknown - 01/03/2015 2:20 PM PDTFormatting of this note might be di fferent from the original. Nurse Progress Note by Candace Almanza RN at 01/03/15 789 Author: Candace Almanza RN Service: (none) Author Type: Registered Nurse Filed: 01/03/15 9484 Date of Service: 01/03/151419 Status: Signed Statistical Reporting Analyst: Candace Almanza RN (Registered Nurse) Dr Shore here at bedside to check on pt. Made aware of the leaking around AILYN insertion site. No new orders noted, will continue to monitor. docume nted in this encounter Plan of Treatment +--------+ + + + + | Date | Type | Specialty | Care Team | Description | +--------+ + + + + | 02/21/ | Hospital | | Saleem Shore, | Rectal prolapse | | 2018 | Encounter | | MD Rebecca [facility] | | | | | | [address] | | | | | | [place] [address] | | | | | | [phone] | | | | | | | | +--------+ + + + + | 02/21/ | Surgery | | Saleem Shore, | COLONOSCOPY | | 2018 | | | [address] | | | | | | [address] | | | | | | [place] [address] | | | | | | [phone] | | | | | | | | +--------+ + + + + documented as of this encounter Procedures + +--------+ + + + | Procedure Name | Priori | Date/Time | Associated Diagnosis | Comments | | | ty | | | | + +--------+ + + + | POC GLUCOSE | Routin | 01/25/2015 | | Results for this | | | e | 6:09 AM | | procedure are in the | | | | PDT | | results section. | + +--------+ + + + | XR CHEST 1 VIEW | Routin | 01/25/2015 | | Results for this | | | e | 5:14 AM | | procedure are in the | | | | PDT | | results section. | + +--------+ + + + | EXTERNAL LAB: CBC | Routin | 01/25/2015 | | Results for this | | | e | 4:36 AM | | procedure are in the | | | | PDT | | results section. | + +--------+ + + + | PHOSPHORUS | Routin | 01/25/2015 | | Results for this | | | e | 4:36 AM | | procedure are in the | | | | PDT | | results section. | + +--------+ + + + | MAGNESIUM | Routin | 01/25/2015 | | Results for this | | | e | 4:36 AM | | procedure are in the | | | | PDT | | results section. | + +--------+ + + + | BASIC METABOLIC | Routin | 01/25/2015 | | Results for this | | PANEL | e | 4:36 AM | | procedure are in the | | | | PDT | | results section. | + +--------+ + + + | POC GLUCOSE | Routin | 01/25/2015 | | Results for this | | | e | 12:24 AM | | procedure are in the | | | | PDT | | results section. | + +--------+ + + + | POC GLUCOSE | Routin | 01/24/2015 | | Results for this | | | e | 5:54 PM | | procedure are in the | | | | PDT | | results section. | + +--------+ + + + | POC GLUCOSE | Routin | 01/24/2015 | | Results for this | | | e | 11:52 AM | | procedure are in the | | | | PDT | | results section. | + +--------+ + + + | XR ABDOMEN AP | Routin | 01/24/2015 | | Results for this | | | e | 11:00 AM | | procedure are in the | | | | PDT | | results section. | + +--------+ + + + | XR ABDOMEN AP | Routin | 01/24/2015 | | Results for this | | | e | 10:45 AM | | procedure are in the | | | | PDT | | results section. | + +--------+ + + + | XR CHEST 1 VIEW | Routin | 01/24/2015 | | Results for this | | | e | 5:44 AM | | procedure are in the | | | | PDT | | results section. | + +--------+ + + + | POC GLUCOSE | Routin | 01/24/2015 | | Results for this | | | e | 5:19 AM | | procedure are in the | | | | PDT | | results section. | + +--------+ + + + | EXTERNAL LAB: CBC | Routin | 01/24/2015 | | Results for this | | | e | 3:21 AM | | procedure are in the | | | | PDT | | results section. | + +--------+ + + + | PHOSPHORUS | Routin | 01/24/2015 | | Results for this | | | e | 3:21 AM | | procedure are in the | | | | PDT | | results section. | + +--------+ + + + | MAGNESIUM | Routin | 01/24/2015 | | Results for this | | | e | 3:21 AM | | procedure are in the | | | | PDT | | results section. | + +--------+ + + + | LIPASE | Routin | 01/24/2015 | | Results for this | | | e | 3:21 AM | | procedure are in the | | | | PDT | | results section. | + +--------+ + + + | BASIC METABOLIC | Routin | 01/24/2015 | | Results for this | | PANEL | e | 3:21 AM | | procedure are in the | | | | PDT | | results section. | + +--------+ + + + | POC GLUCOSE | Routin | 01/23/2015 | | Results for this | | | e | 11:19 PM | | procedure are in the | | | | PDT | | results section. | + +--------+ + + + | POC GLUCOSE | Routin | 01/23/2015 | | Results for this | | | e | 6:16 PM | | procedure are in the | | | | PDT | | results section. | + +--------+ + + + | MRI ABDOMEN W WO | Routin | 01/23/2015 | | Results for this | | CONTRAST | e | 3:06 PM | | procedure are in the | | | | PDT | | results section. | + +--------+ + + + | POC GLUCOSE | Routin | 01/23/2015 | | Results for this | | | e | 1:15 PM | | procedure are in the | | | | PDT | | results section. | + +--------+ + + + | XR CHEST 1 VIEW | Routin | 01/23/2015 | | Results for this | | | e | 5:52 AM | | procedure are in the | | | | PDT | | results section. | + +--------+ + + + | POC GLUCOSE | Routin | 01/23/2015 | | Results for this | | | e | 5:10 AM | | procedure are in the | | | | PDT | | results section. | + +--------+ + + + | EXTERNAL LAB: CBC | Routin | 01/23/2015 | | Results for this | | | e | 3:22 AM | | procedure are in the | | | | PDT | | results section. | + +--------+ + + + | PHOSPHORUS | Routin | 01/23/2015 | | Results for this | | | e | 3:22 AM | | procedure are in the | | | | PDT | | results section. | + +--------+ + + + | MAGNESIUM | Routin | 01/23/2015 | | Results for this | | | e | 3:22 AM | | procedure are in the | | | | PDT | | results section. | + +--------+ + + + | LIPASE | Routin | 01/23/2015 | | Results for this | | | e | 3:22 AM | | procedure are in the | | | | PDT | | results section. | + +--------+ + + + | DIGOXIN LEVEL | Routin | 01/23/2015 | | Results for this | | | e | 3:22 AM | | procedure are in the | | | | PDT | | results section. | + +--------+ + + + | BASIC METABOLIC | Routin | 01/23/2015 | | Results for this | | PANEL | e | 3:22 AM | | procedure are in the | | | | PDT | | results section. | + +--------+ + + + | POC GLUCOSE | Routin | 01/22/2015 | | Results for this | | | e | 11:26 PM | | procedure are in the | | | | PDT | | results section. | + +--------+ + + + | POTASSIUM | Routin | 01/22/2015 | | Results for this | | | e | 9:33 PM | | procedure are in the | | | | PDT | | results section. | + +--------+ + + + | PHOSPHORUS | Routin | 01/22/2015 | | Results for this | | | e | 9:33 PM | | procedure are in the | | | | PDT | | results section. | + +--------+ + + + | MAGNESIUM | Routin | 01/22/2015 | | Results for this | | | e | 9:33 PM | | procedure are in the | | | | PDT | | results section. | + +--------+ + + + | POC GLUCOSE | Routin | 01/22/2015 | | Results for this | | | e | 5:52 PM | | procedure are in the | | | | PDT | | results section. | + +--------+ + + + | POC GLUCOSE | Routin | 01/22/2015 | | Results for this | | | e | 11:44 AM | | procedure are in the | | | | PDT | | results section. | + +--------+ + + + | EXTERNAL LAB: CBC | Routin | 01/22/2015 | | Results for this | | | e | 6:26 AM | | procedure are in the | | | | PDT | | results section. | + +--------+ + + + | PHOSPHORUS | Routin | 01/22/2015 | | Results for this | | | e | 6:26 AM | | procedure are in the | | | | PDT | | results section. | + +--------+ + + + | MAGNESIUM | Routin | 01/22/2015 | | Results for this | | | e | 6:26 AM | | procedure are in the | | | | PDT | | results section. | + +--------+ + + + | BASIC METABOLIC | Routin | 01/22/2015 | | Results for this | | PANEL | e | 6:26 AM | | procedure are in the | | | | PDT | | results section. | + +--------+ + + + | POC GLUCOSE | Routin | 01/22/2015 | | Results for this | | | e | 6:01 AM | | procedure are in the | | | | PDT | | results section. | + +--------+ + + + | XR CHEST 1 VIEW | Routin | 01/22/2015 | | Results for this | | | e | 5:58 AM | | procedure are in the | | | | PDT | | results section. | + +--------+ + + + | EXTERNAL LAB: CBC | Routin | 01/22/2015 | | Results for this | | | e | 4:15 AM | | procedure are in the | | | | PDT | | results section. | + +--------+ + + + | POC GLUCOSE | Routin | 01/21/2015 | | Results for this | | | e | 11:55 PM | | procedure are in the | | | | PDT | | results section. | + +--------+ + + + | POC GLUCOSE | Routin | 01/21/2015 | | Results for this | | | e | 7:01 PM | | procedure are in the | | | | PDT | | results section. | + +--------+ + + + | POC GLUCOSE | Routin | 01/21/2015 | | Results for this | | | e | 1:00 PM | | procedure are in the | | | | PDT | | results section. | + +--------+ + + + | POC GLUCOSE | Routin | 01/21/2015 | | Results for this | | | e | 6:15 AM | | procedure are in the | | | | PDT | | results section. | + +--------+ + + + | XR CHEST 1 VIEW | Routin | 01/21/2015 | | Results for this | | | e | 5:52 AM | | procedure are in the | | | | PDT | | results section. | + +--------+ + + + | CALCIUM, IONIZED | Routin | 01/21/2015 | | Results for this | | | e | 4:27 AM | | procedure are in the | | | | PDT | | results section. | + +--------+ + + + | EXTERNAL LAB: CBC | Routin | 01/21/2015 | | Results for this | | | e | 4:19 AM | | procedure are in the | | | | PDT | | results section. | + +--------+ + + + | TRIGLYCERIDES | Routin | 01/21/2015 | | Results for this | | | e | 4:19 AM | | procedure are in the | | | | PDT | | results section. | + +--------+ + + + | PHOSPHORUS | Routin | 01/21/2015 | | Results for this | | | e | 4:19 AM | | procedure are in the | | | | PDT | | results section. | + +--------+ + + + | MAGNESIUM | Routin | 01/21/2015 | | Results for this | | | e | 4:19 AM | | procedure are in the | | | | PDT | | results section. | + +--------+ + + + | DIGOXIN LEVEL | Routin | 01/21/2015 | | Results for this | | | e | 4:19 AM | | procedure are in the | | | | PDT | | results section. | + +--------+ + + + | BASIC METABOLIC | Routin | 01/21/2015 | | Results for this | | PANEL | e | 4:19 AM | | procedure are in the | | | | PDT | | results section. | + +--------+ + + + | POC GLUCOSE | Routin | 01/21/2015 | | Results for this | | | e | 1:19 AM | | procedure are in the | | | | PDT | | results section. | + +--------+ + + + | POC GLUCOSE | Routin | 01/20/2015 | | Results for this | | | e | 6:15 PM | | procedure are in the | | | | PDT | | results section. | + +--------+ + + + | POTASSIUM | Routin | 01/20/2015 | | Results for this | | | e | 5:25 PM | | procedure are in the | | | | PDT | | results section. | + +--------+ + + + | PHOSPHORUS | Routin | 01/20/2015 | | Results for this | | | e | 5:25 PM | | procedure are in the | | | | PDT | | results section. | + +--------+ + + + | MAGNESIUM | Routin | 01/20/2015 | | Results for this | | | e | 5:25 PM | | procedure are in the | | | | PDT | | results section. | + +--------+ + + + | DIGOXIN LEVEL | Routin | 01/20/2015 | | Results for this | | | e | 5:25 PM | | procedure are in the | | | | PDT | | results section. | + +--------+ + + + | POC GLUCOSE | Routin | 01/20/2015 | | Results for this | | | e | 12:06 PM | | procedure are in the | | | | PDT | | results section. | + +--------+ + + + | POC GLUCOSE | Routin | 01/20/2015 | | Results for this | | | e | 6:20 AM | | procedure are in the | | | | PDT | | results section. | + +--------+ + + + | EXTERNAL LAB: | Routin | 01/20/2015 | | Results for this | | PROTEIN, TOTAL | e | 5:51 AM | | procedure are in the | | | | PDT | | results section. | + +--------+ + + + | CULTURE, BODY FLUID, | Timed | 01/20/2015 | | Results for this | | STERILE, SMEAR, | | 5:51 AM | | procedure are in the | | WITH ANAEROBES | | PDT | | results section. | + +--------+ + + + | GLUCOSE, BODY FLUID | Routin | 01/20/2015 | | Results for this | | | e | 5:51 AM | | procedure are in the | | | | PDT | | results section. | + +--------+ + + + | PH, BODY FLUID | Routin | 01/20/2015 | | Results for this | | | e | 5:51 AM | | procedure are in the | | | | PDT | | results section. | + +--------+ + + + | EXTERNAL LAB: CBC | Routin | 01/20/2015 | | Results for this | | | e | 4:27 AM | | procedure are in the | | | | PDT | | results section. | + +--------+ + + + | PHOSPHORUS | Routin | 01/20/2015 | | Results for this | | | e | 4:27 AM | | procedure are in the | | | | PDT | | results section. | + +--------+ + + + | MAGNESIUM | Routin | 01/20/2015 | | Results for this | | | e | 4:27 AM | | procedure are in the | | | | PDT | | results section. | + +--------+ + + + | LACTATE | Routin | 01/20/2015 | | Results for this | | DEHYDROGENASE | e | 4:27 AM | | procedure are in the | | | | PDT | | results section. | + +--------+ + + + | HEPATIC FUNCTION | Routin | 01/20/2015 | | Results for this | | PANEL | e | 4:27 AM | | procedure are in the | | | | PDT | | results section. | + +--------+ + + + | BASIC METABOLIC | Routin | 01/20/2015 | | Results for this | | PANEL | e | 4:27 AM | | procedure are in the | | | | PDT | | results section. | + +--------+ + + + | LACTIC ACID | Routin | 01/20/2015 | | Results for this | | | e | 4:15 AM | | procedure are in the | | | | PDT | | results section. | + +--------+ + + + | XR CHEST 1 VIEW | Routin | 01/20/2015 | | Results for this | | | e | 4:05 AM | | procedure are in the | | | | PDT | | results section. | + +--------+ + + + | POC GLUCOSE | Routin | 01/20/2015 | | Results for this | | | e | 12:38 AM | | procedure are in the | | | | PDT | | results section. | + +--------+ + + + | POC GLUCOSE | Routin | 01/19/2015 | | Results for this | | | e | 5:26 PM | | procedure are in the | | | | PDT | | results section. | + +--------+ + + + | POC GLUCOSE | Routin | 01/19/2015 | | Results for this | | | e | 11:46 AM | | procedure are in the | | | | PDT | | results section. | + +--------+ + + + | CT CHEST WO CONTRAST | Routin | 01/19/2015 | | Results for this | | | e | 9:56 AM | | procedure are in the | | | | PDT | | results section. | + +--------+ + + + | XR CHEST 1 VIEW | Routin | 01/19/2015 | | Results for this | | | e | 6:01 AM | | procedure are in the | | | | PDT | | results section. | + +--------+ + + + | POC GLUCOSE | Routin | 01/19/2015 | | Results for this | | | e | 5:37 AM | | procedure are in the | | | | PDT | | results section. | + +--------+ + + + | EXTERNAL LAB: CBC | Routin | 01/19/2015 | | Results for this | | | e | 5:35 AM | | procedure are in the | | | | PDT | | results section. | + +--------+ + + + | TRIGLYCERIDES | Routin | 01/19/2015 | | Results for this | | | e | 5:35 AM | | procedure are in the | | | | PDT | | results section. | + +--------+ + + + | PHOSPHORUS | Routin | 01/19/2015 | | Results for this | | | e | 5:35 AM | | procedure are in the | | | | PDT | | results section. | + +--------+ + + + | MAGNESIUM | Routin | 01/19/2015 | | Results for this | | | e | 5:35 AM | | procedure are in the | | | | PDT | | results section. | + +--------+ + + + | LIPASE | Routin | 01/19/2015 | | Results for this | | | e | 5:35 AM | | procedure are in the | | | | PDT | | results section. | + +--------+ + + + | HEPATIC FUNCTION | Routin | 01/19/2015 | | Results for this | | PANEL | e | 5:35 AM | | procedure are in the | | | | PDT | | results section. | + +--------+ + + + | BASIC METABOLIC | Routin | 01/19/2015 | | Results for this | | PANEL | e | 5:35 AM | | procedure are in the | | | | PDT | | results section. | + +--------+ + + + | POC GLUCOSE | Routin | 01/19/2015 | | Results for this | | | e | 1:31 AM | | procedure are in the | | | | PDT | | results section. | + +--------+ + + + | POC GLUCOSE | Routin | 01/18/2015 | | Results for this | | | e | 6:08 PM | | procedure are in the | | | | PDT | | results section. | + +--------+ + + + | POC GLUCOSE | Routin | 01/18/2015 | | Results for this | | | e | 1:07 PM | | procedure are in the | | | | PDT | | results section. | + +--------+ + + + | POC GLUCOSE | Routin | 01/18/2015 | | Results for this | | | e | 6:45 AM | | procedure are in the | | | | PDT | | results section. | + +--------+ + + + | EXTERNAL LAB: CBC | Routin | 01/18/2015 | | Results for this | | | e | 5:09 AM | | procedure are in the | | | | PDT | | results section. | + +--------+ + + + | TRIGLYCERIDES | Routin | 01/18/2015 | | Results for this | | | e | 5:09 AM | | procedure are in the | | | | PDT | | results section. | + +--------+ + + + | PHOSPHORUS | Routin | 01/18/2015 | | Results for this | | | e | 5:09 AM | | procedure are in the | | | | PDT | | results section. | + +--------+ + + + | MAGNESIUM | Routin | 01/18/2015 | | Results for this | | | e | 5:09 AM | | procedure are in the | | | | PDT | | results section. | + +--------+ + + + | LIPASE | Routin | 01/18/2015 | | Results for this | | | e | 5:09 AM | | procedure are in the | | | | PDT | | results section. | + +--------+ + + + | DIGOXIN LEVEL | Routin | 01/18/2015 | | Results for this | | | e | 5:09 AM | | procedure are in the | | | | PDT | | results section. | + +--------+ + + + | HEPATIC FUNCTION | Routin | 01/18/2015 | | Results for this | | PANEL | e | 5:09 AM | | procedure are in the | | | | PDT | | results section. | + +--------+ + + + | BASIC METABOLIC | Routin | 01/18/2015 | | Results for this | | PANEL | e | 5:09 AM | | procedure are in the | | | | PDT | | results section. | + +--------+ + + + | POC GLUCOSE | Routin | 01/17/2015 | | Results for this | | | e | 11:56 PM | | procedure are in the | | | | PDT | | results section. | + +--------+ + + + | XR CHEST 1 VIEW | Routin | 01/17/2015 | | Results for this | | | e | 11:25 PM | | procedure are in the | | | | PDT | | results section. | + +--------+ + + + | BOWEL CULTURE, | Routin | 01/17/2015 | | Results for this | | QUANTITATIVE, | e | 11:00 PM | | procedure are in the | | AEROBIC | | PDT | | results section. | + +--------+ + + + | XR CHEST 1 VIEW | Routin | 01/17/2015 | | Results for this | | | e | 10:17 PM | | procedure are in the | | | | PDT | | results section. | + +--------+ + + + | XR ABDOMEN AP | Routin | 01/17/2015 | | Results for this | | UPRIGHT KUB AND PA | e | 8:28 PM | | procedure are in the | | CHEST | | PDT | | results section. | + +--------+ + + + | POC GLUCOSE | Routin | 01/17/2015 | | Results for this | | | e | 5:58 PM | | procedure are in the | | | | PDT | | results section. | + +--------+ + + + | NM HEPATOBILIARY W | Routin | 01/17/2015 | | Results for this | | CCK | e | 2:31 PM | | procedure are in the | | | | PDT | | results section. | + +--------+ + + + | POC GLUCOSE | Routin | 01/17/2015 | | Results for this | | | e | 1:29 PM | | procedure are in the | | | | PDT | | results section. | + +--------+ + + + | POC GLUCOSE | Routin | 01/17/2015 | | Results for this | | | e | 6:05 AM | | procedure are in the | | | | PDT | | results section. | + +--------+ + + + | POC GLUCOSE | Routin | 01/17/2015 | | Results for this | | | e | 3:37 AM | | procedure are in the | | | | PDT | | results section. | + +--------+ + + + | EXTERNAL LAB: CBC | Routin | 01/17/2015 | | Results for this | | | e | 3:02 AM | | procedure are in the | | | | PDT | | results section. | + +--------+ + + + | PHOSPHORUS | Routin | 01/17/2015 | | Results for this | | | e | 3:02 AM | | procedure are in the | | | | PDT | | results section. | + +--------+ + + + | MAGNESIUM | Routin | 01/17/2015 | | Results for this | | | e | 3:02 AM | | procedure are in the | | | | PDT | | results section. | + +--------+ + + + | LIPASE | Routin | 01/17/2015 | | Results for this | | | e | 3:02 AM | | procedure are in the | | | | PDT | | results section. | + +--------+ + + + | AMYLASE | Routin | 01/17/2015 | | Results for this | | | e | 3:02 AM | | procedure are in the | | | | PDT | | results section. | + +--------+ + + + | HEPATIC FUNCTION | Routin | 01/17/2015 | | Results for this | | PANEL | e | 3:02 AM | | procedure are in the | | | | PDT | | results section. | + +--------+ + + + | BASIC METABOLIC | Routin | 01/17/2015 | | Results for this | | PANEL | e | 3:02 AM | | procedure are in the | | | | PDT | | results section. | + +--------+ + + + | POC GLUCOSE | Routin | 01/17/2015 | | Results for this | | | e | 1:30 AM | | procedure are in the | | | | PDT | | results section. | + +--------+ + + + | POC GLUCOSE | Routin | 01/16/2015 | | Results for this | | | e | 11:44 PM | | procedure are in the | | | | PDT | | results section. | + +--------+ + + + | POC GLUCOSE | Routin | 01/16/2015 | | Results for this | | | e | 9:58 PM | | procedure are in the | | | | PDT | | results section. | + +--------+ + + + | POC GLUCOSE | Routin | 01/16/2015 | | Results for this | | | e | 7:49 PM | | procedure are in the | | | | PDT | | results section. | + +--------+ + + + | POC GLUCOSE | Routin | 01/16/2015 | | Results for this | | | e | 6:44 PM | | procedure are in the | | | | PDT | | results section. | + +--------+ + + + | POC GLUCOSE | Routin | 01/16/2015 | | Results for this | | | e | 4:40 PM | | procedure are in the | | | | PDT | | results section. | + +--------+ + + + | POC GLUCOSE | Routin | 01/16/2015 | | Results for this | | | e | 2:33 PM | | procedure are in the | | | | PDT | | results section. | + +--------+ + + + | EXTERNAL LAB: CBC | Routin | 01/16/2015 | | Results for this | | | e | 1:50 PM | | procedure are in the | | | | PDT | | results section. | + +--------+ + + + | LIPASE | Routin | 01/16/2015 | | Results for this | | | e | 1:50 PM | | procedure are in the | | | | PDT | | results section. | + +--------+ + + + | LACTIC ACID | Routin | 01/16/2015 | | Results for this | | | e | 1:50 PM | | procedure are in the | | | | PDT | | results section. | + +--------+ + + + | AMYLASE | Routin | 01/16/2015 | | Results for this | | | e | 1:50 PM | | procedure are in the | | | | PDT | | results section. | + +--------+ + + + | HEPATIC FUNCTION | Routin | 01/16/2015 | | Results for this | | PANEL | e | 1:50 PM | | procedure are in the | | | | PDT | | results section. | + +--------+ + + + | POC GLUCOSE | Routin | 01/16/2015 | | Results for this | | | e | 11:56 AM | | procedure are in the | | | | PDT | | results section. | + +--------+ + + + | POTASSIUM | Routin | 01/16/2015 | | Results for this | | | e | 11:55 AM | | procedure are in the | | | | PDT | | results section. | + +--------+ + + + | POC GLUCOSE | Routin | 01/16/2015 | | Results for this | | | e | 9:52 AM | | procedure are in the | | | | PDT | | results section. | + +--------+ + + + | US ABDOMEN LIMITED | Routin | 01/16/2015 | | Results for this | | | e | 8:53 AM | | procedure are in the | | | | PDT | | results section. | + +--------+ + + + | POC GLUCOSE | Routin | 01/16/2015 | | Results for this | | | e | 7:54 AM | | procedure are in the | | | | PDT | | results section. | + +--------+ + + + | EXTERNAL LAB: CBC | Routin | 01/16/2015 | | Results for this | | | e | 6:37 AM | | procedure are in the | | | | PDT | | results section. | + +--------+ + + + | BASIC METABOLIC | Routin | 01/16/2015 | | Results for this | | PANEL | e | 6:37 AM | | procedure are in the | | | | PDT | | results section. | + +--------+ + + + | LACTIC ACID | Routin | 01/16/2015 | | Results for this | | | e | 6:19 AM | | procedure are in the | | | | PDT | | results section. | + +--------+ + + + | POC GLUCOSE | Routin | 01/16/2015 | | Results for this | | | e | 5:40 AM | | procedure are in the | | | | PDT | | results section. | + +--------+ + + + | XR CHEST 1 VIEW | Routin | 01/16/2015 | | Results for this | | | e | 5:29 AM | | procedure are in the | | | | PDT | | results section. | + +--------+ + + + | CALCIUM, IONIZED | Routin | 01/16/2015 | | Results for this | | | e | 4:41 AM | | procedure are in the | | | | PDT | | results section. | + +--------+ + + + | POC GLUCOSE | Routin | 01/16/2015 | | Results for this | | | e | 3:30 AM | | procedure are in the | | | | PDT | | results section. | + +--------+ + + + | EXTERNAL LAB: CBC | Routin | 01/16/2015 | | Results for this | | | e | 2:30 AM | | procedure are in the | | | | PDT | | results section. | + +--------+ + + + | TRIGLYCERIDES | Routin | 01/16/2015 | | Results for this | | | e | 2:30 AM | | procedure are in the | | | | PDT | | results section. | + +--------+ + + + | PREALBUMIN | Routin | 01/16/2015 | | Results for this | | | e | 2:30 AM | | procedure are in the | | | | PDT | | results section. | + +--------+ + + + | PHOSPHORUS | Routin | 01/16/2015 | | Results for this | | | e | 2:30 AM | | procedure are in the | | | | PDT | | results section. | + +--------+ + + + | MAGNESIUM | Routin | 01/16/2015 | | Results for this | | | e | 2:30 AM | | procedure are in the | | | | PDT | | results section. | + +--------+ + + + | HEPATIC FUNCTION | Routin | 01/16/2015 | | Results for this | | PANEL | e | 2:30 AM | | procedure are in the | | | | PDT | | results section. | + +--------+ + + + | BASIC METABOLIC | Routin | 01/16/2015 | | Results for this | | PANEL | e | 2:30 AM | | procedure are in the | | | | PDT | | results section. | + +--------+ + + + | POC GLUCOSE | Routin | 01/16/2015 | | Results for this | | | e | 1:59 AM | | procedure are in the | | | | PDT | | results section. | + +--------+ + + + | POC GLUCOSE | Routin | 01/16/2015 | | Results for this | | | e | 12:02 AM | | procedure are in the | | | | PDT | | results section. | + +--------+ + + + | POC GLUCOSE | Routin | 01/15/2015 | | Results for this | | | e | 10:13 PM | | procedure are in the | | | | PDT | | results section. | + +--------+ + + + | POTASSIUM | Routin | 01/15/2015 | | Results for this | | | e | 9:12 PM | | procedure are in the | | | | PDT | | results section. | + +--------+ + + + | POC GLUCOSE | Routin | 01/15/2015 | | Results for this | | | e | 7:51 PM | | procedure are in the | | | | PDT | | results section. | + +--------+ + + + | POC GLUCOSE | Routin | 01/15/2015 | | Results for this | | | e | 5:46 PM | | procedure are in the | | | | PDT | | results section. | + +--------+ + + + | POC GLUCOSE | Routin | 01/15/2015 | | Results for this | | | e | 3:41 PM | | procedure are in the | | | | PDT | | results section. | + +--------+ + + + | POTASSIUM | Routin | 01/15/2015 | | Results for this | | | e | 3:05 PM | | procedure are in the | | | | PDT | | results section. | + +--------+ + + + | POC GLUCOSE | Routin | 01/15/2015 | | Results for this | | | e | 1:34 PM | | procedure are in the | | | | PDT | | results section. | + +--------+ + + + | POC GLUCOSE | Routin | 01/15/2015 | | Results for this | | | e | 12:25 PM | | procedure are in the | | | | PDT | | results section. | + +--------+ + + + | POC GLUCOSE | Routin | 01/15/2015 | | Results for this | | | e | 11:13 AM | | procedure are in the | | | | PDT | | results section. | + +--------+ + + + | POC GLUCOSE | Routin | 01/15/2015 | | Results for this | | | e | 10:07 AM | | procedure are in the | | | | PDT | | results section. | + +--------+ + + + | POTASSIUM | Routin | 01/15/2015 | | Results for this | | | e | 9:58 AM | | procedure are in the | | | | PDT | | results section. | + +--------+ + + + | PHOSPHORUS | Routin | 01/15/2015 | | Results for this | | | e | 9:58 AM | | procedure are in the | | | | PDT | | results section. | + +--------+ + + + | MAGNESIUM | Routin | 01/15/2015 | | Results for this | | | e | 9:58 AM | | procedure are in the | | | | PDT | | results section. | + +--------+ + + + | POC GLUCOSE | Routin | 01/15/2015 | | Results for this | | | e | 7:59 AM | | procedure are in the | | | | PDT | | results section. | + +--------+ + + + | POC GLUCOSE | Routin | 01/15/2015 | | Results for this | | | e | 6:55 AM | | procedure are in the | | | | PDT | | results section. | + +--------+ + + + | XR CHEST 1 VIEW | Routin | 01/15/2015 | | Results for this | | | e | 5:52 AM | | procedure are in the | | | | PDT | | results section. | + +--------+ + + + | POC GLUCOSE | Routin | 01/15/2015 | | Results for this | | | e | 5:38 AM | | procedure are in the | | | | PDT | | results section. | + +--------+ + + + | POC GLUCOSE | Routin | 01/15/2015 | | Results for this | | | e | 5:36 AM | | procedure are in the | | | | PDT | | results section. | + +--------+ + + + | EXTERNAL LAB: CBC | Routin | 01/15/2015 | | Results for this | | | e | 4:17 AM | | procedure are in the | | | | PDT | | results section. | + +--------+ + + + | PROCALCITONIN, SERUM | Routin | 01/15/2015 | | Results for this | | | e | 4:17 AM | | procedure are in the | | | | PDT | | results section. | + +--------+ + + + | PHOSPHORUS | Routin | 01/15/2015 | | Results for this | | | e | 4:17 AM | | procedure are in the | | | | PDT | | results section. | + +--------+ + + + | MAGNESIUM | Routin | 01/15/2015 | | Results for this | | | e | 4:17 AM | | procedure are in the | | | | PDT | | results section. | + +--------+ + + + | DIGOXIN LEVEL | Routin | 01/15/2015 | | Results for this | | | e | 4:17 AM | | procedure are in the | | | | PDT | | results section. | + +--------+ + + + | BASIC METABOLIC | Routin | 01/15/2015 | | Results for this | | PANEL | e | 4:17 AM | | procedure are in the | | | | PDT | | results section. | + +--------+ + + + | POC GLUCOSE | Routin | 01/15/2015 | | Results for this | | | e | 3:25 AM | | procedure are in the | | | | PDT | | results section. | + +--------+ + + + | POC GLUCOSE | Routin | 01/15/2015 | | Results for this | | | e | 2:21 AM | | procedure are in the | | | | PDT | | results section. | + +--------+ + + + | POC GLUCOSE | Routin | 01/15/2015 | | Results for this | | | e | 1:15 AM | | procedure are in the | | | | PDT | | results section. | + +--------+ + + + | POC GLUCOSE | Routin | 01/15/2015 | | Results for this | | | e | 1:13 AM | | procedure are in the | | | | PDT | | results section. | + +--------+ + + + | POC GLUCOSE | Routin | 01/15/2015 | | Results for this | | | e | 12:10 AM | | procedure are in the | | | | PDT | | results section. | + +--------+ + + + | POC GLUCOSE | Routin | 01/14/2015 | | Results for this | | | e | 11:07 PM | | procedure are in the | | | | PDT | | results section. | + +--------+ + + + | POC GLUCOSE | Routin | 01/14/2015 | | Results for this | | | e | 8:50 PM | | procedure are in the | | | | PDT | | results section. | + +--------+ + + + | POTASSIUM | Routin | 01/14/2015 | | Results for this | | | e | 6:58 PM | | procedure are in the | | | | PDT | | results section. | + +--------+ + + + | PHOSPHORUS | Routin | 01/14/2015 | | Results for this | | | e | 6:58 PM | | procedure are in the | | | | PDT | | results section. | + +--------+ + + + | MAGNESIUM | Routin | 01/14/2015 | | Results for this | | | e | 6:58 PM | | procedure are in the | | | | PDT | | results section. | + +--------+ + + + | POC GLUCOSE | Routin | 01/14/2015 | | Results for this | | | e | 6:23 PM | | procedure are in the | | | | PDT | | results section. | + +--------+ + + + | POC GLUCOSE | Routin | 01/14/2015 | | Results for this | | | e | 4:15 PM | | procedure are in the | | | | PDT | | results section. | + +--------+ + + + | POC GLUCOSE | Routin | 01/14/2015 | | Results for this | | | e | 2:00 PM | | procedure are in the | | | | PDT | | results section. | + +--------+ + + + | POC GLUCOSE | Routin | 01/14/2015 | | Results for this | | | e | 11:51 AM | | procedure are in the | | | | PDT | | results section. | + +--------+ + + + | POC GLUCOSE | Routin | 01/14/2015 | | Results for this | | | e | 9:47 AM | | procedure are in the | | | | PDT | | results section. | + +--------+ + + + | POC GLUCOSE | Routin | 01/14/2015 | | Results for this | | | e | 7:40 AM | | procedure are in the | | | | PDT | | results section. | + +--------+ + + + | XR CHEST 1 VIEW | Routin | 01/14/2015 | | Results for this | | | e | 5:39 AM | | procedure are in the | | | | PDT | | results section. | + +--------+ + + + | POC GLUCOSE | Routin | 01/14/2015 | | Results for this | | | e | 5:36 AM | | procedure are in the | | | | PDT | | results section. | + +--------+ + + + | EXTERNAL LAB: CBC | Routin | 01/14/2015 | | Results for this | | | e | 5:14 AM | | procedure are in the | | | | PDT | | results section. | + +--------+ + + + | PHOSPHORUS | Routin | 01/14/2015 | | Results for this | | | e | 5:14 AM | | procedure are in the | | | | PDT | | results section. | + +--------+ + + + | MAGNESIUM | Routin | 01/14/2015 | | Results for this | | | e | 5:14 AM | | procedure are in the | | | | PDT | | results section. | + +--------+ + + + | BASIC METABOLIC | Routin | 01/14/2015 | | Results for this | | PANEL | e | 5:14 AM | | procedure are in the | | | | PDT | | results section. | + +--------+ + + + | POC GLUCOSE | Routin | 01/14/2015 | | Results for this | | | e | 3:30 AM | | procedure are in the | | | | PDT | | results section. | + +--------+ + + + | POC GLUCOSE | Routin | 01/14/2015 | | Results for this | | | e | 2:23 AM | | procedure are in the | | | | PDT | | results section. | + +--------+ + + + | POC GLUCOSE | Routin | 01/14/2015 | | Results for this | | | e | 1:21 AM | | procedure are in the | | | | PDT | | results section. | + +--------+ + + + | POC GLUCOSE | Routin | 01/13/2015 | | Results for this | | | e | 11:45 PM | | procedure are in the | | | | PDT | | results section. | + +--------+ + + + | POC GLUCOSE | Routin | 01/13/2015 | | Results for this | | | e | 10:55 PM | | procedure are in the | | | | PDT | | results section. | + +--------+ + + + | POC GLUCOSE | Routin | 01/13/2015 | | Results for this | | | e | 9:45 PM | | procedure are in the | | | | PDT | | results section. | + +--------+ + + + | POC GLUCOSE | Routin | 01/13/2015 | | Results for this | | | e | 8:42 PM | | procedure are in the | | | | PDT | | results section. | + +--------+ + + + | POC GLUCOSE | Routin | 01/13/2015 | | Results for this | | | e | 7:39 PM | | procedure are in the | | | | PDT | | results section. | + +--------+ + + + | POC GLUCOSE | Routin | 01/13/2015 | | Results for this | | | e | 6:35 PM | | procedure are in the | | | | PDT | | results section. | + +--------+ + + + | POC GLUCOSE | Routin | 01/13/2015 | | Results for this | | | e | 5:38 PM | | procedure are in the | | | | PDT | | results section. | + +--------+ + + + | CULTURE, BLOOD, 2ND | STAT | 01/13/2015 | | Results for this | | SPECIMEN (NON-ORD) | | 4:37 PM | | procedure are in the | | | | PDT | | results section. | + +--------+ + + + | POC GLUCOSE | Routin | 01/13/2015 | | Results for this | | | e | 4:33 PM | | procedure are in the | | | | PDT | | results section. | + +--------+ + + + | CULTURE, BLOOD | STAT | 01/13/2015 | | Results for this | | | | 4:33 PM | | procedure are in the | | | | PDT | | results section. | + +--------+ + + + | POC GLUCOSE | Routin | 01/13/2015 | | Results for this | | | e | 3:25 PM | | procedure are in the | | | | PDT | | results section. | + +--------+ + + + | POC GLUCOSE | Routin | 01/13/2015 | | Results for this | | | e | 2:22 PM | | procedure are in the | | | | PDT | | results section. | + +--------+ + + + | POC GLUCOSE | Routin | 01/13/2015 | | Results for this | | | e | 12:52 PM | | procedure are in the | | | | PDT | | results section. | + +--------+ + + + | POC GLUCOSE | Routin | 01/13/2015 | | Results for this | | | e | 11:31 AM | | procedure are in the | | | | PDT | | results section. | + +--------+ + + + | POC GLUCOSE | Routin | 01/13/2015 | | Results for this | | | e | 10:22 AM | | procedure are in the | | | | PDT | | results section. | + +--------+ + + + | POC GLUCOSE | Routin | 01/13/2015 | | Results for this | | | e | 9:17 AM | | procedure are in the | | | | PDT | | results section. | + +--------+ + + + | POC GLUCOSE | Routin | 01/13/2015 | | Results for this | | | e | 8:12 AM | | procedure are in the | | | | PDT | | results section. | + +--------+ + + + | POC GLUCOSE | Routin | 01/13/2015 | | Results for this | | | e | 6:44 AM | | procedure are in the | | | | PDT | | results section. | + +--------+ + + + | XR CHEST 1 VIEW | Routin | 01/13/2015 | | Results for this | | | e | 5:53 AM | | procedure are in the | | | | PDT | | results section. | + +--------+ + + + | POC GLUCOSE | Routin | 01/13/2015 | | Results for this | | | e | 5:41 AM | | procedure are in the | | | | PDT | | results section. | + +--------+ + + + | POC GLUCOSE | Routin | 01/13/2015 | | Results for this | | | e | 4:27 AM | | procedure are in the | | | | PDT | | results section. | + +--------+ + + + | EXTERNAL LAB: CBC | Routin | 01/13/2015 | | Results for this | | | e | 3:56 AM | | procedure are in the | | | | PDT | | results section. | + +--------+ + + + | PHOSPHORUS | Routin | 01/13/2015 | | Results for this | | | e | 3:56 AM | | procedure are in the | | | | PDT | | results section. | + +--------+ + + + | MAGNESIUM | Routin | 01/13/2015 | | Results for this | | | e | 3:56 AM | | procedure are in the | | | | PDT | | results section. | + +--------+ + + + | HEMOGLOBIN A1C | Routin | 01/13/2015 | | Results for this | | | e | 3:56 AM | | procedure are in the | | | | PDT | | results section. | + +--------+ + + + | BASIC METABOLIC | Routin | 01/13/2015 | | Results for this | | PANEL | e | 3:56 AM | | procedure are in the | | | | PDT | | results section. | + +--------+ + + + | POC GLUCOSE | Routin | 01/13/2015 | | Results for this | | | e | 3:20 AM | | procedure are in the | | | | PDT | | results section. | + +--------+ + + + | POC GLUCOSE | Routin | 01/13/2015 | | Results for this | | | e | 2:15 AM | | procedure are in the | | | | PDT | | results section. | + +--------+ + + + | POC GLUCOSE | Routin | 01/13/2015 | | Results for this | | | e | 1:13 AM | | procedure are in the | | | | PDT | | results section. | + +--------+ + + + | MAGNESIUM | Routin | 01/12/2015 | | Results for this | | | e | 11:23 PM | | procedure are in the | | | | PDT | | results section. | + +--------+ + + + | VANCOMYCIN LEVEL | Routin | 01/12/2015 | | Results for this | | | e | 11:23 PM | | procedure are in the | | | | PDT | | results section. | + +--------+ + + + | BASIC METABOLIC | Routin | 01/12/2015 | | Results for this | | PANEL | e | 11:23 PM | | procedure are in the | | | | PDT | | results section. | + +--------+ + + + | POC GLUCOSE | Routin | 01/12/2015 | | Results for this | | | e | 11:20 PM | | procedure are in the | | | | PDT | | results section. | + +--------+ + + + | POC GLUCOSE | Routin | 01/12/2015 | | Results for this | | | e | 5:58 PM | | procedure are in the | | | | PDT | | results section. | + +--------+ + + + | CULTURE, BLOOD, 2ND | Timed | 01/12/2015 | | Results for this | | SPECIMEN (NON-ORD) | | 4:38 PM | | procedure are in the | | | | PDT | | results section. | + +--------+ + + + | POC GLUCOSE | Routin | 01/12/2015 | | Results for this | | | e | 12:06 PM | | procedure are in the | | | | PDT | | results section. | + +--------+ + + + | MAGNESIUM | Routin | 01/12/2015 | | Results for this | | | e | 10:00 AM | | procedure are in the | | | | PDT | | results section. | + +--------+ + + + | ECHO COMPLETE | Routin | 01/12/2015 | | Results for this | | | e | 8:53 AM | | procedure are in the | | | | PDT | | results section. | + +--------+ + + + | MRSA NAAT | Routin | 01/12/2015 | | Results for this | | | e | 7:59 AM | | procedure are in the | | | | PDT | | results section. | + +--------+ + + + | GRAM STAIN, REFLEX | Timed | 01/12/2015 | | Results for this | | SPUTUM CULTURE | | 7:55 AM | | procedure are in the | | | | PDT | | results section. | + +--------+ + + + | TROPONIN I | Routin | 01/12/2015 | | Results for this | | | e | 6:31 AM | | procedure are in the | | | | PDT | | results section. | + +--------+ + + + | BASIC METABOLIC | Routin | 01/12/2015 | | Results for this | | PANEL | e | 6:31 AM | | procedure are in the | | | | PDT | | results section. | + +--------+ + + + | CT CHEST ABDOMEN | Routin | 01/12/2015 | | Results for this | | PELVIS W CONTRAST | e | 6:12 AM | | procedure are in the | | | | PDT | | results section. | + +--------+ + + + | LACTIC ACID | Routin | 01/12/2015 | | Results for this | | | e | 5:43 AM | | procedure are in the | | | | PDT | | results section. | + +--------+ + + + | POC GLUCOSE | Routin | 01/12/2015 | | Results for this | | | e | 5:41 AM | | procedure are in the | | | | PDT | | results section. | + +--------+ + + + | XR CHEST 1 VIEW | Routin | 01/12/2015 | | Results for this | | | e | 5:08 AM | | procedure are in the | | | | PDT | | results section. | + +--------+ + + + | CALCIUM, IONIZED | Routin | 01/12/2015 | | Results for this | | | e | 3:23 AM | | procedure are in the | | | | PDT | | results section. | + +--------+ + + + | EXTERNAL LAB: CBC | Routin | 01/12/2015 | | Results for this | | | e | 2:44 AM | | procedure are in the | | | | PDT | | results section. | + +--------+ + + + | TRIGLYCERIDES | Routin | 01/12/2015 | | Results for this | | | e | 2:44 AM | | procedure are in the | | | | PDT | | results section. | + +--------+ + + + | PREALBUMIN | Routin | 01/12/2015 | | Results for this | | | e | 2:44 AM | | procedure are in the | | | | PDT | | results section. | + +--------+ + + + | PHOSPHORUS | Routin | 01/12/2015 | | Results for this | | | e | 2:44 AM | | procedure are in the | | | | PDT | | results section. | + +--------+ + + + | MAGNESIUM | Routin | 01/12/2015 | | Results for this | | | e | 2:44 AM | | procedure are in the | | | | PDT | | results section. | + +--------+ + + + | LACTIC ACID | Routin | 01/12/2015 | | Results for this | | | e | 2:44 AM | | procedure are in the | | | | PDT | | results section. | + +--------+ + + + | COMPREHENSIVE | Routin | 01/12/2015 | | Results for this | | METABOLIC PANEL | e | 2:44 AM | | procedure are in the | | | | PDT | | results section. | + +--------+ + + + | POC GLUCOSE | Routin | 01/11/2015 | | Results for this | | | e | 11:34 PM | | procedure are in the | | | | PDT | | results section. | + +--------+ + + + | XR CHEST 1 VIEW | Routin | 01/11/2015 | | Results for this | | | e | 11:24 PM | | procedure are in the | | | | PDT | | results section. | + +--------+ + + + | XR ABDOMEN AP | Routin | 01/11/2015 | | Results for this | | | e | 11:11 PM | | procedure are in the | | | | PDT | | results section. | + +--------+ + + + | XR CHEST 1 VIEW | Routin | 01/11/2015 | | Results for this | | | e | 10:46 PM | | procedure are in the | | | | PDT | | results section. | + +--------+ + + + | POC GLUCOSE | Routin | 01/11/2015 | | Results for this | | | e | 10:23 PM | | procedure are in the | | | | PDT | | results section. | + +--------+ + + + | LACTIC ACID | Routin | 01/11/2015 | | Results for this | | | e | 9:17 PM | | procedure are in the | | | | PDT | | results section. | + +--------+ + + + | URINALYSIS, REFLEX | Routin | 01/11/2015 | | Results for this | | MICROSCOPIC AND/OR | e | 9:03 PM | | procedure are in the | | CULTURE | | PDT | | results section. | + +--------+ + + + | URINALYSIS, | Routin | 01/11/2015 | | Results for this | | MICROSCOPIC ONLY | e | 9:03 PM | | procedure are in the | | | | PDT | | results section. | + +--------+ + + + | CULTURE, BLOOD, 2ND | STAT | 01/11/2015 | | Results for this | | SPECIMEN (NON-ORD) | | 8:13 PM | | procedure are in the | | | | PDT | | results section. | + +--------+ + + + | CULTURE, BLOOD | STAT | 01/11/2015 | | Results for this | | | | 8:09 PM | | procedure are in the | | | | PDT | | results section. | + +--------+ + + + | EXTERNAL LAB: CBC | Routin | 01/11/2015 | | Results for this | | | e | 8:08 PM | | procedure are in the | | | | PDT | | results section. | + +--------+ + + + | PROCALCITONIN, SERUM | Routin | 01/11/2015 | | Results for this | | | e | 8:08 PM | | procedure are in the | | | | PDT | | results section. | + +--------+ + + + | TROPONIN I | Routin | 01/11/2015 | | Results for this | | | e | 8:08 PM | | procedure are in the | | | | PDT | | results section. | + +--------+ + + + | LACTATE | Routin | 01/11/2015 | | Results for this | | DEHYDROGENASE | e | 8:08 PM | | procedure are in the | | | | PDT | | results section. | + +--------+ + + + | BASIC METABOLIC | Routin | 01/11/2015 | | Results for this | | PANEL | e | 8:08 PM | | procedure are in the | | | | PDT | | results section. | + +--------+ + + + | CULTURE, BLOOD, 2ND | Timed | 01/11/2015 | | Results for this | | SPECIMEN (NON-ORD) | | 12:47 PM | | procedure are in the | | | | PDT | | results section. | + +--------+ + + + | CULTURE, BLOOD | Timed | 01/11/2015 | | Results for this | | | | 12:33 PM | | procedure are in the | | | | PDT | | results section. | + +--------+ + + + | XR ABDOMEN AP | Routin | 01/11/2015 | | Results for this | | | e | 10:22 AM | | procedure are in the | | | | PDT | | results section. | + +--------+ + + + | XR ABDOMEN AP | Routin | 01/11/2015 | | Results for this | | UPRIGHT KUB AND PA | e | 7:40 AM | | procedure are in the | | CHEST | | PDT | | results section. | + +--------+ + + + | EXTERNAL LAB: CBC | Routin | 01/11/2015 | | Results for this | | | e | 4:41 AM | | procedure are in the | | | | PDT | | results section. | + +--------+ + + + | PHOSPHORUS | Routin | 01/11/2015 | | Results for this | | | e | 4:41 AM | | procedure are in the | | | | PDT | | results section. | + +--------+ + + + | MAGNESIUM | Routin | 01/11/2015 | | Results for this | | | e | 4:41 AM | | procedure are in the | | | | PDT | | results section. | + +--------+ + + + | BASIC METABOLIC | Routin | 01/11/2015 | | Results for this | | PANEL | e | 4:41 AM | | procedure are in the | | | | PDT | | results section. | + +--------+ + + + | EXTERNAL LAB: CBC | Routin | 01/10/2015 | | Results for this | | | e | 4:49 AM | | procedure are in the | | | | PDT | | results section. | + +--------+ + + + | PHOSPHORUS | Routin | 01/10/2015 | | Results for this | | | e | 4:49 AM | | procedure are in the | | | | PDT | | results section. | + +--------+ + + + | MAGNESIUM | Routin | 01/10/2015 | | Results for this | | | e | 4:49 AM | | procedure are in the | | | | PDT | | results section. | + +--------+ + + + | BASIC METABOLIC | Routin | 01/10/2015 | | Results for this | | PANEL | e | 4:49 AM | | procedure are in the | | | | PDT | | results section. | + +--------+ + + + | EXTERNAL LAB: CBC | Routin | 01/09/2015 | | Results for this | | | e | 5:41 AM | | procedure are in the | | | | PDT | | results section. | + +--------+ + + + | PHOSPHORUS | Routin | 01/09/2015 | | Results for this | | | e | 5:41 AM | | procedure are in the | | | | PDT | | results section. | + +--------+ + + + | MAGNESIUM | Routin | 01/09/2015 | | Results for this | | | e | 5:41 AM | | procedure are in the | | | | PDT | | results section. | + +--------+ + + + | BASIC METABOLIC | Routin | 01/09/2015 | | Results for this | | PANEL | e | 5:41 AM | | procedure are in the | | | | PDT | | results section. | + +--------+ + + + | MAGNESIUM | Routin | 01/08/2015 | | Results for this | | | e | 11:47 AM | | procedure are in the | | | | PDT | | results section. | + +--------+ + + + | EXTERNAL LAB: CBC | Routin | 01/08/2015 | | Results for this | | | e | 4:52 AM | | procedure are in the | | | | PDT | | results section. | + +--------+ + + + | PHOSPHORUS | Routin | 01/08/2015 | | Results for this | | | e | 4:52 AM | | procedure are in the | | | | PDT | | results section. | + +--------+ + + + | MAGNESIUM | Routin | 01/08/2015 | | Results for this | | | e | 4:52 AM | | procedure are in the | | | | PDT | | results section. | + +--------+ + + + | BASIC METABOLIC | Routin | 01/08/2015 | | Results for this | | PANEL | e | 4:52 AM | | procedure are in the | | | | PDT | | results section. | + +--------+ + + + | EXTERNAL LAB: CBC | Routin | 01/07/2015 | | Results for this | | | e | 5:34 AM | | procedure are in the | | | | PDT | | results section. | + +--------+ + + + | PHOSPHORUS | Routin | 01/07/2015 | | Results for this | | | e | 5:34 AM | | procedure are in the | | | | PDT | | results section. | + +--------+ + + + | MAGNESIUM | Routin | 01/07/2015 | | Results for this | | | e | 5:34 AM | | procedure are in the | | | | PDT | | results section. | + +--------+ + + + | BASIC METABOLIC | Routin | 01/07/2015 | | Results for this | | PANEL | e | 5:34 AM | | procedure are in the | | | | PDT | | results section. | + +--------+ + + + | EXTERNAL LAB: CBC | Routin | 01/06/2015 | | Results for this | | | e | 3:51 AM | | procedure are in the | | | | PDT | | results section. | + +--------+ + + + | PHOSPHORUS | Routin | 01/06/2015 | | Results for this | | | e | 3:51 AM | | procedure are in the | | | | PDT | | results section. | + +--------+ + + + | MAGNESIUM | Routin | 01/06/2015 | | Results for this | | | e | 3:51 AM | | procedure are in the | | | | PDT | | results section. | + +--------+ + + + | BASIC METABOLIC | Routin | 01/06/2015 | | Results for this | | PANEL | e | 3:51 AM | | procedure are in the | | | | PDT | | results section. | + +--------+ + + + | TISSUE REQUEST FOR | Routin | 01/06/2015 | | Results for this | | PATHOLOGY (NON-ORD) | e | 12:00 AM | | procedure are in the | | | | PDT | | results section. | + +--------+ + + + | TROPONIN I | Routin | 01/05/2015 | | Results for this | | | e | 3:14 PM | | procedure are in the | | | | PDT | | results section. | + +--------+ + + + | CK-MB | Routin | 01/05/2015 | | Results for this | | | e | 3:14 PM | | procedure are in the | | | | PDT | | results section. | + +--------+ + + + | CK TOTAL | Routin | 01/05/2015 | | Results for this | | | e | 3:14 PM | | procedure are in the | | | | PDT | | results section. | + +--------+ + + + | ECHO COMPLETE | Routin | 01/05/2015 | | Results for this | | | e | 12:13 PM | | procedure are in the | | | | PDT | | results section. | + +--------+ + + + | THYROID PANEL WITH | Routin | 01/05/2015 | | Results for this | | TSH | e | 9:03 AM | | procedure are in the | | | | PDT | | results section. | + +--------+ + + + | TROPONIN I | Routin | 01/05/2015 | | Results for this | | | e | 9:03 AM | | procedure are in the | | | | PDT | | results section. | + +--------+ + + + | CK-MB | Routin | 01/05/2015 | | Results for this | | | e | 9:03 AM | | procedure are in the | | | | PDT | | results section. | + +--------+ + + + | MAGNESIUM | Routin | 01/05/2015 | | Results for this | | | e | 9:03 AM | | procedure are in the | | | | PDT | | results section. | + +--------+ + + + | HEMOGLOBIN A1C | Routin | 01/05/2015 | | Results for this | | | e | 9:03 AM | | procedure are in the | | | | PDT | | results section. | + +--------+ + + + | CK TOTAL | Routin | 01/05/2015 | | Results for this | | | e | 9:03 AM | | procedure are in the | | | | PDT | | results section. | + +--------+ + + + | EXTERNAL LAB: CBC | Routin | 01/05/2015 | | Results for this | | | e | 4:46 AM | | procedure are in the | | | | PDT | | results section. | + +--------+ + + + | PHOSPHORUS | Routin | 01/05/2015 | | Results for this | | | e | 4:46 AM | | procedure are in the | | | | PDT | | results section. | + +--------+ + + + | MAGNESIUM | Routin | 01/05/2015 | | Results for this | | | e | 4:46 AM | | procedure are in the | | | | PDT | | results section. | + +--------+ + + + | BASIC METABOLIC | Routin | 01/05/2015 | | Results for this | | PANEL | e | 4:46 AM | | procedure are in the | | | | PDT | | results section. | + +--------+ + + + | EXTERNAL LAB: CBC | Routin | 01/04/2015 | | Results for this | | | e | 5:45 AM | | procedure are in the | | | | PDT | | results section. | + +--------+ + + + | PHOSPHORUS | Routin | 01/04/2015 | | Results for this | | | e | 5:45 AM | | procedure are in the | | | | PDT | | results section. | + +--------+ + + + | MAGNESIUM | Routin | 01/04/2015 | | Results for this | | | e | 5:45 AM | | procedure are in the | | | | PDT | | results section. | + +--------+ + + + | BASIC METABOLIC | Routin | 01/04/2015 | | Results for this | | PANEL | e | 5:45 AM | | procedure are in the | | | | PDT | | results section. | + +--------+ + + + documented in this encounter Results POC Glucose (01/25/2015 6:09 AM PDT) + + + + + + | Component | Value | Ref Range | Performed | Pathologist | | | | | At | Signature | + + + + + + | Glucose, | 142 (H)Comment: Testing | 65 - 99 mg/dL | EXTERNAL | | | Fingerstick | performed at [facility];[address] | | LAB | | | | [address];[place] | | | | | | [id number] | | | | + + + + + + + + | Specimen | + + | | + + + +---------+ + + | Performing | Address | City/State/Zipcode | Phone Number | | Organization | | | | + +---------+ + + | EXTERNAL LAB | | | | + +---------+ + + XR Chest 1 Vw (01/25/2015 5:14 AM PDT) + + | Specimen | + + | | + + + + + | Impressions | Performed At | + + + | 1. Improving right-sided pneumonia, with interval removal of right | | | pleural pigtail drainage catheter. 2. Unchanged small right | | | pleural effusion. 3. Unchanged right-sided chest port and | | | catheter. Electronically signed by Bahman Padilla MD on | | | 01/25/2015 7:33 AM | | + + + + + + | Narrative | Performed At | + + + | [facility] XR CHEST 1 VIEW 01/25/2015 5:14 AM HISTORY: | | | Daily assessment for life support lines and tubes. TECHNIQUE: AP | | | chest radiograph [id number] hours. COMPARISON: Chest radiographs, most | | | recent 01/24/2015. Chest CT 01/19/2015. FINDINGS: The right-sided | | | chest port and well-positioned catheter are unchanged. The | | | right-sided pleural pigtail catheter has been removed. Patchy airspace | | | disease in the right upper lobe has slightly improved. Partial | | | consolidation in the right lower lung field slightly improved. The | | | left lung is clear. Mild blunting of the right costophrenic angle | | | suggests an unchanged right-sided pleural effusion. The cardiac | | | silhouette and pulmonary vasculature are normal. No pneumothorax is | | | seen. No focal bone lesions are found. | | + + + + + | Procedure Note | + + | Frederic, Rad Conversion - 11/10/2018 8:48 AM [facility] CHEST 1 | | VIEW01/25/2015 5:14 AM HISTORY:Daily assessment for life support lines and tubes. | | TECHNIQUE:AP chest radiograph [id number] hours. COMPARISON:Chest radiographs, most recent | | 01/24/2015. Chest CT 01/19/2015. FINDINGS:The right-sided chest port and well-positioned | | catheter are unchanged. The right-sided pleural pigtail catheter has been removed. | | Patchy airspace disease in the right upper lobe has slightly improved. Partial | | consolidation in the right lower lung field slightly improved. The left lung is clear. | | Mild blunting of the right costophrenic angle suggests an unchanged right-sided pleural | | effusion. The cardiac silhouette and pulmonary vasculature are normal. No pneumothorax | | is seen. No focal bone lesions are found. IMPRESSION: 1. Improving right-sided | | pneumonia, with interval removal of right pleural pigtail drainage catheter. 2. | | Unchanged small right pleural effusion. 3. Unchanged right-sided chest port and | | catheter. | |FINDINGS: | |The right-sided chest port and well-positioned catheter are unchanged. The right-sided pleu ral pigtail catheter has been removed. Patchy airspace disease in the right upper lobe has s lightly improved. Partial | |consolidation in the right lower lung field | |slightly improved. The left lung is clear. Mild blunting of the right costophrenic angle bojorquez ggests an unchanged right-sided pleural effusion. The cardiac silhouette and pulmonary vascu lature are normal. No pneumothorax | |is seen. No focal bone lesions are | |found. | | | |IMPRESSION: | |1. Improving right-sided pneumonia, with interval removal of right pleural pigtail drainag e catheter. | | | |2. Unchanged small right pleural effusion. | | | |3. Unchanged right-sided chest port and catheter. | | | | | + + External Lab: CBC (01/25/2015 4:36 AM PDT) + + + + + + | Component | Value | Ref Range | Performed | Pathologist | | | | | At | Signature | + + + + + + | WBC | 9.77Comment: Testing | 3.80 - 11.00 | EXTERNAL | | | | performed at [facility];888 | K/uL | LAB | | | | [address];[place] | | | | | | [address] | | | | + + + + + + | RED CELL | 2.61 (L)Comment: Testing | 4.20 - 5.70 | EXTERNAL | | | COUNT | performed at [facility];888 | M/uL | LAB | | | | [address];[place] | | | | | | [address] | | | | + + + + + + | Hgb | 8.5 (L)Comment: Testing | 13.2 - 17.0 | EXTERNAL | | | | performed at [facility];888 | g/dL | LAB | | | | [address];[place] | | | | | | [address] | | | | + + + + + + | Hematocrit, | 24.8 (L)Comment: Testing | 39.0 - 50.0 % | EXTERNAL | | | POC | performed at [facility];[address] | | LAB | | | | [address];[place] | | | | | | [address] | | | | + + + + + + | MCV | 95.2Comment: Testing | 80.0 - 100.0 fl | EXTERNAL | | | | performed at [facility];[address] | | LAB | | | | [address];[place] | | | | | | [address] | | | | + + + + + + | MCH | 32.6Comment: Testing | 27.0 - 34.0 pg | EXTERNAL | | | | performed at [facility];[address] | | LAB | | | | [address];[place] | | | | | | [address] | | | | + + + + + + | MCHC | 34.2Comment: Testing | 32.0 - 35.5 | EXTERNAL | | | | performed at [facility];888 | g/dL | LAB | | | | [address];[place] | | | | | | [address] | | | | + + + + + + | RDW-CV | 45.1Comment: Testing | 37 - 53 fl | EXTERNAL | | | | performed at [facility];[address] | | LAB | | | | [address];[place] | | | | | | [address] | | | | + + + + + + | Platelet | 584 (H)Comment: Testing | 150 - 400 K/uL | EXTERNAL | | | Count | performed at [facility];[address] | | LAB | | | Plasma | [address];[place] | | | | | | [address] | | | | + + + + + + | MPV | 7.8Comment: Testing | fl | EXTERNAL | | | | performed at [facility];[address] | | LAB | | | | [address];[place] | | | | | | [address] | | | | + + + + + + | Differentia | AUTOMATEDComment: | | EXTERNAL | | | l Type | Testing performed at | | LAB | | | | [facility];[address];[place] [address] | | | | + + + + + + | % Segmented | 76.19Comment: Testing | % | EXTERNAL | | | | performed at [facility];[address] | | LAB | | | Neutrophils | [address];[place] | | | | | | [address] | | | | + + + + + + | % | 9.37Comment: Testing | % | EXTERNAL | | | Lymphocytes | performed at [facility];[address] | | LAB | | | | [address];[place] | | | | | | [address] | | | | + + + + + + | % Monocytes | 9.80Comment: Testing | % | EXTERNAL | | | | performed at [facility];[address] | | LAB | | | | [address];[place] | | | | | | [address] | | | | + + + + + + | % | 3.37Comment: Testing | % | EXTERNAL | | | Eosinophils | performed at [facility];[address] | | LAB | | | | [address];[place] | | | | | | [address] | | | | + + + + + + | % Basophils | 1.27Comment: Testing | % | EXTERNAL | | | | performed at [facility];[address] | | LAB | | | | [address];[place] | | | | | | [address] | | | | + + + + + + | Absolute | 7.44 (H)Comment: Testing | 1.90 - 7.40 | EXTERNAL | | | Segmented | performed at [facility];[address] | K/uL | LAB | | | Neutrophils | [address];[place] | | | | | | [address] | | | | + + + + + + | Absolute | 0.92 (L)Comment: Testing | 1.00 - 3.90 | EXTERNAL | | | Lymphocytes | performed at [facility];[address] | K/uL | LAB | | | | [address];[place] | | | | | | [address] | | | | + + + + + + | Absolute | 0.96 (H)Comment: Testing | 0.00 - 0.80 | EXTERNAL | | | Monocytes | performed at [facility];[address] | K/uL | LAB | | | | [address];[place] | | | | | | [address] | | | | + + + + + + | Absolute | 0.33Comment: Testing | 0.00 - 0.50 | EXTERNAL | | | Eosinophils | performed at [facility];[address] | K/uL | LAB | | | | [address];[place] | | | | | | [address] | | | | + + + + + + | Absolute | 0.12 (H)Comment: Testing | 0.00 - 0.10 | EXTERNAL | | | Basophils | performed at [facility];[address] | K/uL | LAB | | | | [address];[place] | | | | | | [address] | | | | + + + + + + | RBC | RBC AND PLT MORPHOLOGY | | EXTERNAL | | | Morphology | APPEAR NORMALComment: | | LAB | | | | Testing performed at | | | | | | [facility];[address] | [address];[place] [address] | | | | + + + + + + | Differentia | SLIDE SCANNED, AGREES | | EXTERNAL | | | l Comments | WITH AUTOMATED | | LAB | | | | RESULTS.Comment: Testing | | | | | | performed at [facility];[address] | | | | | | [address];[place] | | | | | | [address] | | | | + + + + + + + + | Specimen | + + | Blood specimen | | (specimen) | + + + +---------+ + + | Performing | Address | City/State/Zipcode | Phone Number | | Organization | | | | + +---------+ + + | EXTERNAL LAB | | | | + +---------+ + + Phosphorus (01/25/2015 4:36 AM PDT) + + + + + + | Component | Value | Ref Range | Performed | Pathologist | | | | | At | Signature | + + + + + + | PHOSPHORUS | 4.4Comment: Testing | 2.3 - 4.8 mg/dL | EXTERNAL | | | | performed at [facility];[address] | | LAB | | | | [address];[place] | | | | | | [address] | | | | + + + + + + + + | Specimen | + + | Blood specimen | | (specimen) | + + + +---------+ + + | Performing | Address | City/State/Zipcode | Phone Number | | Organization | | | | + +---------+ + + | EXTERNAL LAB | | | | + +---------+ + + Magnesium (01/25/2015 4:36 AM PDT) + + + + + + | Component | Value | Ref Range | Performed | Pathologist | | | | | At | Signature | + + + + + + | Magnesium | 2.3Comment: Testing | 1.7 - 2.4 mg/dL | EXTERNAL | | | | performed at [facility];[address] | | LAB | | | | [address];[place], [place] | | | | | | [address] | | | | + + + [...] + +---------+ + + Basic Metabolic Panel (01/25/2015 4:36 AM PDT) + + + + + + | Component | Value | Ref Range | Performed | Pathologist | | | | | At | Signature | + + + + + + | Na | 134 (L)Comment: Testing | 135 - 143 | EXTERNAL | | | | performed at [facility];888 | mmol/L | LAB | | | | [address];[place] | | | | | | [address] | | | | + + + + + + | K | 4.5Comment: Testing | 3.5 - 4.9 | EXTERNAL | | | | performed at [facility];888 | mmol/L | LAB | | | | [address];[place] | | | | | | [address] | | | | + + + + + + | Cl | 102Comment: Testing | 99 - 109 mmol/L | EXTERNAL | | | | performed at [facility];[address] | | LAB | | | | [address];[place] | | | | | | [address] | | | | + + + + + + | CO2 | 23Comment: Testing | 23 - 32 mmol/L | EXTERNAL | | | | performed at [facility];[address] | | LAB | | | | [address];[place] | | | | | | [address] | | | | + + + + + + | Anion Gap | 13Comment: Testing | 5 - 20 mmol/L | EXTERNAL | | | | performed at [facility];[address] | | LAB | | | | [address];[place] | | | | | | [address] | | | | + + + + + + | Glucose, | 115 (H)Comment: Testing | 65 - 99 mg/dL | EXTERNAL | | | Fasting | performed at [facility];[address] | | LAB | | | | [address];[place] | | | | | | [address] | | | | + + + + + + | BUN | 30 (H)Comment: Testing | 8 - 25 mg/dL | EXTERNAL | | | | performed at [facility];[address] | | LAB | | | | [address];[place] | | | | | | [address] | | | | + + + + + + | Creatinine | 0.64 (L)Comment: Testing | 0.70 - 1.30 | EXTERNAL | | | | performed at [facility];888 | mg/dL | LAB | | | | [address];[place] | | | | | | [address] | | | | + + + + + + | BUN/Creatin | 47Comment: Testing | | EXTERNAL | | | ine Ratio | performed at [facility];[address] | | LAB | | | | [address];[place] | | | | | | [address] | | | | + + + + + + | Calcium | 8.3 (L)Comment: Testing | 8.5 - 10.5 | EXTERNAL | | | | performed at [facility];888 | mg/dL | LAB | | | | [address];[place] | | | | | | [address] | | | | + + + [...] | | | | | | at [facility];[address] [place] [address] | | | | | | [facility];[place] [address] | | | | + + + + + + + + | Specimen | + + | Blood specimen | | (specimen) | + + + +---------+ + + | Performing | Address | City/State/Zipcode | Phone Number | | Organization | | | | + +---------+ + + | EXTERNAL LAB | | | | + +---------+ + + POC Glucose (01/25/2015 12:24 AM PDT) + + + + + + | Component | Value | Ref Range | Performed | Pathologist | | | | | At | Signature | + + + + + + | Glucose, | 132 (H)Comment: Testing | 65 - 99 mg/dL | EXTERNAL | | | Fingerstick | performed at [facility];[address] | | LAB | | | | [address];[place], [place] | | | | | | [address] | | | | + + + + + + + + | Specimen | + + | | + + + +---------+ + + | Performing | Address | City/State/Zipcode | Phone Number | | Organization | | | | + +---------+ + + | EXTERNAL LAB | | | | + +---------+ + + POC Glucose (01/24/2015 5:54 PM PDT) + + + + + + | Component | Value | Ref Range | Performed | Pathologist | | | | | At | Signature | + + + + + + | Glucose, | 140 (H)Comment: Testing | 65 - 99 mg/dL | EXTERNAL | | | Fingerstick | performed at [facility];[address] | | LAB | | | | [address];[place], [place] | | | | | | [address] | | | | + + + + + + + + | Specimen | + + | | + + + +---------+ + + | Performing | Address | City/State/Zipcode | Phone Number | | Organization | | | | + +---------+ + + | EXTERNAL LAB | | | | + +---------+ + + POC Glucose (01/24/2015 11:52 AM PDT) + + + + + + | Component | Value | Ref Range | Performed | Pathologist | | | | | At | Signature | + + + + + + | Glucose, | 126 (H)Comment: Testing | 65 - 99 mg/dL | EXTERNAL | | | Fingerstick | performed at [facility];[address] | | LAB | | | | [address];[place], [place] | | | | | | [address] | | | | + + + + + + + + | Specimen | + + | | + + + +---------+ + + | Performing | Address | City/State/Zipcode | Phone Number | | Organization | | | | + +---------+ + + | EXTERNAL LAB | | | | + +---------+ + + XR Abdomen AP (01/24/2015 11:00 AM PDT) + + | Specimen | + + | | + + + + + | Impressions | Performed At | + + + | FINDINGS/ IMPRESSION: Weighted feeding tube looping within the | | | stomach with the tip in the fundus of the stomach. Nonspecific, | | | nonobstructive bowel gas pattern. | | + + + + + + | Narrative | Performed At | + + + | JOSE EATON 1950 XR ABDOMEN 1 VIEW 01/24/2015 11:00 AM | | | INDICATION: Feeding tube placement. COMPARISON: January 24, 2015 | | | 1022 hours TECHNIQUE: Abdominal series, single view | | + + + + -+ | Procedure Note | + -+ | Frederic Rad Conversion - 11/10/2018 8:48 AM PDT JOSE EATON1950XR ABDOMEN 1 | | VIEW01/24/2015 11:00 AM INDICATION: Feeding tube placement. COMPARISON: January 24, 2015 | | 1022 hours TECHNIQUE: Abdominal series, single view IMPRESSION: FINDINGS/ IMPRESSION: | | Weighted feeding tube looping within the stomach with the tip in the fundus of the | | stomach. Nonspecific, nonobstructive bowel gas pattern. | | | |COMPARISON: January 24, 2015 1022 hours | | | |TECHNIQUE: Abdominal series, single view | | | |IMPRESSION: | |FINDINGS/ IMPRESSION: | | | |Weighted feeding tube looping within the stomach with the tip in the fundus of the stomach. | | | |Nonspecific, nonobstructive bowel gas pattern. | | | | | + -+ XR Abdomen AP (01/24/2015 10:45 AM PDT) + + | Specimen | + + | | + + + + + | Impressions | Performed At | + + + | FINDINGS/ IMPRESSION: Weighted feeding tube tip within the | | | fundus of the stomach. Nonspecific, nonobstructive bowel gas | | | pattern. Moderate degeneration throughout the lumbar spine. | | | Vertebral body height loss of the lower thoracic spine is unchanged. | | | | | + + + + + + | Narrative | Performed At | + + + | JOSE EATON 1950 XR ABDOMEN 1 VIEW 01/24/2015 10:45 AM | | | INDICATION: Feeding tube placement. COMPARISON: January 17, 2015 | | | 1937 hours TECHNIQUE: Abdominal series, single view. | | + + + + + | Procedure Note | + + | Frederic, Rad Conversion - 11/10/2018 8:48 AM PDT JOSE EATON1950XR ABDOMEN 1 | | VIEW01/24/2015 10:45 AM INDICATION: Feeding tube placement. COMPARISON: January 17, 2015 | | 1937 hours TECHNIQUE: Abdominal series, single view. IMPRESSION: FINDINGS/ IMPRESSION: | | Weighted feeding tube tip within the fundus of the stomach. Nonspecific, nonobstructive | | bowel gas pattern. Moderate degeneration throughout the lumbar spine. Vertebral body | | height loss of the lower thoracic spine is unchanged. | |COMPARISON: January 17, 2015 1937 hours | | | |TECHNIQUE: Abdominal series, single view. | | | |IMPRESSION: | |FINDINGS/ IMPRESSION: | | | |Weighted feeding tube tip within the fundus of the stomach. | | | |Nonspecific, nonobstructive bowel gas pattern. | | | |Moderate degeneration throughout the lumbar spine. Vertebral body height loss of the lower thoracic spine is unchanged. | | | | | + + XR Chest 1 Vw (01/24/2015 5:44 AM PDT) + + | Specimen | + + | | + + + + + | Impressions | Performed At | + + + | 1. Right lung consolidation persists, similar to the prior | | | examination. 2. Right pigtail catheter with improved | | | angulation/kinking at the level of diaphragm. Electronically | | | signed by Michael Nixon MD on 01/24/2015 6:38 AM | | + + + + + + | Narrative | Performed At | + + + | JOSE UMA 1950 64 years XR CHEST 1 VIEW 01/24/2015 | | | 5:44 AM INDICATION: Tube and line position. COMPARISON: | | | January 23, 2015 TECHNIQUE: Chest 1 view, AP view of the chest | | | FINDINGS: Right Mediport catheter tip in unchanged position. Right | | | pigtail drain overlying the pleural space with small kink at the level | | | of the diaphragm. No pneumothorax. Right basilar and lateral | | | lung consolidation is similar to the prior examination, consistent | | | with infection or aspiration. Heart size and mediastinal contours | | | are unchanged. No acute osseous abnormality. | | + + + + + | Procedure Note | + + | Frederic, Rad Conversion - 11/10/2018 8:48 AM PDT JOSE [id number] yearsXR CHEST | | 1 VIEW01/24/2015 5:44 AM INDICATION: Tube and line position. COMPARISON: January 23 | | 2014 TECHNIQUE: Chest 1 view, AP view of the chest FINDINGS:Right Mediport catheter tip | | in unchanged position. Right pigtail drain overlying the pleural space with small kink | | at the level of the diaphragm. No pneumothorax. Right basilar and lateral lung | | consolidation is similar to the prior examination, consistent with infection or | | aspiration. Heart size and mediastinal contours are unchanged. No acute osseous | | abnormality. IMPRESSION: 1. Right lung consolidation persists, similar to the prior | | examination.2. Right pigtail catheter with improved angulation/kinking at the level of | | diaphragm. | |TECHNIQUE: Chest 1 view, AP view of the chest | | | |FINDINGS: | |Right Mediport catheter tip in unchanged position. Right pigtail drain overlying the pleura l space with small kink at the level of the diaphragm. | | | |No pneumothorax. | | | |Right basilar and lateral lung consolidation is similar to the prior examination, consisten t with infection or aspiration. | | | |Heart size and mediastinal contours are unchanged. No acute osseous abnormality. | | | |IMPRESSION: | | | | | |1. Right lung consolidation persists, similar to the prior examination. | |2. Right pigtail catheter with improved angulation/kinking at the level of diaphragm. | | | | | + + POC Glucose (01/24/2015 5:19 AM PDT) + + + + + + | Component | Value | Ref Range | Performed | Pathologist | | | | | At | Signature | + + + + + + | Glucose, | 125 (H)Comment: Testing | 65 - 99 mg/dL | EXTERNAL | | | Fingerstick | performed at [facility];[address] | | LAB | | | | [address];[place], [place] | | | | | | [address] | | | | + + + + + + + + | Specimen | + + | | + + + +---------+ + + | Performing | Address | City/State/Zipcode | Phone Number | | Organization | | | | + +---------+ + + | EXTERNAL LAB | | | | + +---------+ + + External Lab: CBC (01/24/2015 3:21 AM PDT) + + + + + + | Component | Value | Ref Range | Performed | Pathologist | | | | | At | Signature | + + + + + + | WBC | 9.26Comment: Testing | 3.80 - 11.00 | EXTERNAL | | | | performed at [facility], [address] | K/uL | LAB | | | | [address], | | | | | | [place] [address] | | | | + + + + + + | RED CELL | 2.52 (L)Comment: Testing | 4.20 - 5.70 | EXTERNAL | | | COUNT | performed at [facility], [address] | M/uL | LAB | | | | [address], | | | | | | [place] [address] | | | | + + + + + + | Hgb | 8.5 (L)Comment: Testing | 13.2 - 17.0 | EXTERNAL | | | | performed at [facility], [address] | g/dL | LAB | | | | [address], | | | | | | [place] [address] | | | | + + + + + + | Hematocrit, | 24.6 (L)Comment: Testing | 39.0 - 50.0 % | EXTERNAL | | | POC | performed at [facility], [address] | | LAB | | | | [address], | | | | | | [place] [address] | | | | + + + + + + | MCV | 97.8Comment: Testing | 80.0 - 100.0 fl | EXTERNAL | | | | performed at [facility], [address] | | LAB | | | | [address], | | | | | | [place] [address] | | | | + + + + + + | MCH | 33.5Comment: Testing | 27.0 - 34.0 pg | EXTERNAL | | | | performed at [facility], [address] | | LAB | | | | [address], | | | | | | [place] [address] | | | | + + + + + + | MCHC | 34.3Comment: Testing | 32.0 - 35.5 | EXTERNAL | | | | performed at [facility], [address] | g/dL | LAB | | | | [address], | | | | | | [place] [address] | | | | + + + + + + | RDW-CV | 45.9Comment: Testing | 37 - 53 fl | EXTERNAL | | | | performed at [facility], [address] | | LAB | | | | [address], | | | | | | [place] [address] | | | | + + + + + + | Platelet | 498 (H)Comment: Testing | 150 - 400 K/uL | EXTERNAL | | | Count | performed at [facility], [address] | | LAB | | | Plasma | [address], | | | | | | [place] [address] | | | | + + + + + + | MPV | 8.3Comment: Testing | fl | EXTERNAL | | | | performed at [facility], [address] | | LAB | | | | [address], | | | | | | [place] [address] | | | | + + + + + + | Differentia | MANUALComment: Testing | | EXTERNAL | | | l Type | performed at [facility], [address] | | LAB | | | | [address], | | | | | | [place] [address] | | | | + + + + + + | Segmented | 75Comment: Testing | % | EXTERNAL | | | Neutrophils | performed at [facility], [address] | | LAB | | | Manual | [address], | | | | | | [place] [address] | | | | + + + + + + | Lymphocytes | 11Comment: Testing | % | EXTERNAL | | | Manual | performed at [facility], [address] | | LAB | | | | [address], | | | | | | [place] [address] | | | | + + + + + + | Monocytes | 9Comment: Testing | % | EXTERNAL | | | Manual | performed at [facility], [address] | | LAB | | | | [address], | | | | | | [place] [address] | | | | + + + + + + | Eosinophils | 5Comment: Testing | % | EXTERNAL | | | Manual | performed at [facility], [address] | | LAB | | | | [address], | | | | | | [place] [address] | | | | + + + + + + | Absolute | 6.95Comment: Testing | 1.90 - 7.40 | EXTERNAL | | | Neutrophils | performed at [facility], [address] | K/uL | LAB | | | | [address], | | | | | | [place] [address] | | | | + + + + + + | Absolute | 1.02Comment: Testing | 1.00 - 3.90 | EXTERNAL | | | Lymphocytes | performed at [facility], [address] | K/uL | LAB | | | | [address], | | | | | | [place] [address] | | | | + + + + + + | Absolute | 0.83 (H)Comment: Testing | 0.00 - 0.80 | EXTERNAL | | | Monocytes | performed at [facility], [address] | K/uL | LAB | | | | [address], | | | | | | [place] [address] | | | | + + + + + + | Absolute | 0.46Comment: Testing | 0.00 - 0.50 | EXTERNAL | | | Eosinophils | performed at [facility], [address] | K/uL | LAB | | | | [address], | | | | | | [place] [address] | | | | + + + + + + | Platelet | INCREASEDComment: | | EXTERNAL | | | Estimate | Testing performed at | | LAB | | | | [facility], [address] [facility] | | | | | | [place] | | | | | | [address] | | | | + + + + + + | RBC | NORMAL RBC MORPHComment: | | EXTERNAL | | | Morphology | NORMAL PLT MORPHTesting | | LAB | | | | performed at [facility], [address] | | | | | | [address], | | | | | | [place] [address] | | | | + + + + + + + + | Specimen | + + | Blood specimen | | (specimen) | + + + +---------+ + + | Performing | Address | City/State/Zipcode | Phone Number | | Organization | | | | + +---------+ + + | EXTERNAL LAB | | | | + +---------+ + + Phosphorus (01/24/2015 3:21 AM PDT) + + + + + + | Component | Value | Ref Range | Performed | Pathologist | | | | | At | Signature | + + + + + + | PHOSPHORUS | 4.0Comment: Testing | 2.3 - 4.8 mg/dL | EXTERNAL | | | | performed at [facility];[address] | | LAB | | | | [address];[place] | | | | | | [address] | | | | + + + + + + + + | Specimen | + + | Blood specimen | | (specimen) | + + + +---------+ + + | Performing | Address | City/State/Zipcode | Phone Number | | Organization | | | | + +---------+ + + | EXTERNAL LAB | | | | + +---------+ + + Magnesium (01/24/2015 3:21 AM PDT) + + + + + + | Component | Value | Ref Range | Performed | Pathologist | | | | | At | Signature | + + + + + + | Magnesium | 2.3Comment: Testing | 1.7 - 2.4 mg/dL | EXTERNAL | | | | performed at [facility];[address] | | LAB | | | | [address];[place] | | | | | | [address] | | | | + + + + + + + + | Specimen | + + | Blood specimen | | (specimen) | + + + +---------+ + + | Performing | Address | City/State/Zipcode | Phone Number | | Organization | | | | + +---------+ + + | EXTERNAL LAB | | | | + +---------+ + + Lipase (01/24/2015 3:21 AM PDT) + + + + + + | Component | Value | Ref Range | Performed | Pathologist | | | | | At | Signature | + + + + + + | Lipase | 361Comment: Testing | 73 - 393 U/L | EXTERNAL | | | | performed at [facility];[address] | | LAB | | | | [address];[place], [place] | | | | | | [address] | | | | + + + [...] + +---------+ + + Basic Metabolic Panel (01/24/2015 3:21 AM PDT) + + + + + + | Component | Value | Ref Range | Performed | Pathologist | | | | | At | Signature | + + + + + + | Na | 135Comment: Testing | 135 - 143 | EXTERNAL | | | | performed at [facility];[address] | mmol/L | LAB | | | | [address];[place] | | | | | | [address] | | | | + + + + + + | K | 4.8Comment: Testing | 3.5 - 4.9 | EXTERNAL | | | | performed at [facility];[address] | mmol/L | LAB | | | | [address];[place] | | | | | | [address] | | | | + + + + + + | Cl | 104Comment: Testing | 99 - 109 mmol/L | EXTERNAL | | | | performed at [facility];[address] | | LAB | | | | [address];[place] | | | | | | [address] | | | | + + + + + + | CO2 | 25Comment: Testing | 23 - 32 mmol/L | EXTERNAL | | | | performed at [facility];[address] | | LAB | | | | [address];[place] | | | | | | [address] | | | | + + + + + + | Anion Gap | 11Comment: Testing | 5 - 20 mmol/L | EXTERNAL | | | | performed at [facility];[address] | | LAB | | | | [address];[place] | | | | | | [id number] | | | | + + + + + + | Glucose, | 115 (H)Comment: Testing | 65 - 99 mg/dL | EXTERNAL | | | Fasting | performed at [facility];[address] | | LAB | | | | [address];[place] | | | | | | [id number] | | | | + + + + + + | BUN | 29 (H)Comment: Testing | 8 - 25 mg/dL | EXTERNAL | | | | performed at [facility];[address] | | LAB | | | | [address];[place] | | | | | | [phone] | | | | + + + + + + | Creatinine | 0.60 (L)Comment: Testing | 0.70 - 1.30 | EXTERNAL | | | | performed at [facility];888 | mg/dL | LAB | | | | [address];[place] | | | | | | [phone] | | | | + + + + + + | BUN/Creatin | 49Comment: Testing | | EXTERNAL | | | ine Ratio | performed at [facility];[address] | | LAB | | | | [address];[place] | | | | | | [address] | | | | + + + + + + | Calcium | 8.2 (L)Comment: Testing | 8.5 - 10.5 | EXTERNAL | | | | performed at [facility];888 | mg/dL | LAB | | | | [address];[place] [place] | | | | | | [address] | | | | + + + [...] | | | | | | at [facility];[address] [place] [address] | | | | | | [facility];[place] [address] | | | | + + + + + + + + | Specimen | + + | Blood specimen | | (specimen) | + + + +---------+ + + | Performing | Address | City/State/Zipcode | Phone Number | | Organization | | | | + +---------+ + + | EXTERNAL LAB | | | | + +---------+ + + POC Glucose (01/23/2015 11:19 PM PDT) + + + + + + | Component | Value | Ref Range | Performed | Pathologist | | | | | At | Signature | + + + + + + | Glucose, | 127 (H)Comment: Testing | 65 - 99 mg/dL | EXTERNAL | | | Fingerstick | performed at [facility];[address] | | LAB | | | | [address];[place], [place] | | | | | | [address] | | | | + + + + + + + + | Specimen | + + | | + + + +---------+ + + | Performing | Address | City/State/Zipcode | Phone Number | | Organization | | | | + +---------+ + + | EXTERNAL LAB | | | | + +---------+ + + POC Glucose (01/23/2015 6:16 PM PDT) + + + + + + | Component | Value | Ref Range | Performed | Pathologist | | | | | At | Signature | + + + + + + | Glucose, | 90Comment: Testing | 65 - 99 mg/dL | EXTERNAL | | | Fingerstick | performed at [facility];[address] | | LAB | | | | [address];[place] | | | | | | [address] | | | | + + + + + + + + | Specimen | + + | | + + + +---------+ + + | Performing | Address | City/State/Zipcode | Phone Number | | Organization | | | | + +---------+ + + | EXTERNAL LAB | | | | + +---------+ + + MRI Abdomen w wo Contrast (01/23/2015 3:06 PM PDT) + + | Specimen | + + | | + + + + + | Impressions | Performed At | + + + | 1. No evidence of pancreatitis is found. 2. There is a probable | | | simple cyst along the body of the pancreas. 3. There is a small | | | amount of right-sided pleural fluid. Enhancement of the right pleural | | | lining may reflect some inflammation. 4. Pneumonia and atelectasis | | | of the right middle and lower lobes. | | + + + + + + | Narrative | Performed At | + + + | JOSE E[facility]ON 1950 MRI ABDOMEN W WO CONTRAST 01/23/2015 | | | 3:06 PM HISTORY: Rectal carcinoma, mucous plug and pancreatitis, | | | abdominal pain COMPARISON: Ultrasound, 01/16/2015, CT, 01/12/2015 | | | TECHNIQUE: MRI of the abdomen with and without IV contrast. | | | Imaging was performed on a 1.5 Sherita MRI system. Multiplanar | | | sequences according to a standard department protocol were acquired | | | with and without contrast. M.R.C.P. performed with heavily weighted T2 | | | imaging with maximum intensity projected reconstructed images | | | performed by electroencephalograph technologist. Contrast: MultiHance. Dose: 14 mL. | | | FINDINGS: A small right-sided pleural effusion is present. There is | | | extensive airspace consolidation of the right middle and lower lobe. | | | The heart is normal in size. There is a smooth contour to the | | | liver. No intrahepatic mass is present. There is no intrahepatic | | | biliary ductal dilatation. No fatty liver is noted. The gallbladder is | | | normal in appearance. There are no common bile duct stones. The | | | spleen is normal in size. The visualized adrenal glands are | | | normal. The pancreas demonstrates moderate atrophy. A cystic structure | | | is seen along the body of the pancreas measuring 4.7 mm on image 14 | | | series 5. There is no dilatation of the pancreatic duct. The | | | kidneys have a normal reniform contour. There is no hydronephrosis. No | | | perinephric stranding. There is mild edema of the paraspinous | | | musculature, right greater than left. The aorta and IVC are normal. | | | Following gadolinium enhancement, there is smooth enhancement of the | | | pleural lining. No hyperenhancing mass lesion of the liver is | | | demonstrated. There is normal opacification of the portal and hepatic | | | veins. The kidneys demonstrate bilateral symmetric nephrograms. | | | There is fat marrow throughout the lumbar spine and visualized pelvis | | | likely reflective of post radiation treatment changes. | | + + + + + | Procedure Note | + + | Frederic, Rad Conversion - 11/10/2018 8:48 AM PDT JOSE EATON1950MRI ABDOMEN W WO | | OFTUTLDM98/29/2015 3:06 PM HISTORY: Rectal carcinoma, mucous plug and pancreatitis, | | abdominal pain COMPARISON: Ultrasound, 01/16/2015, CT, 01/12/2015 TECHNIQUE:MRI of the | | abdomen with and without IV contrast. Imaging was performed on a 1.5 Sherita MRI system. | | Multiplanar sequences according to a standard department protocol were acquired with | | and without contrast. M.R.C.P. performed with heavily weighted T2 imaging with maximum | | intensity projected reconstructed images performed by electroencephalograph technologist.Contrast: | | MultiHance. Dose: 14 mL. FINDINGS: A small right-sided pleural effusion is present. | | There is extensive airspace consolidation of the right middle and lower lobe. The heart | | is normal in size. There is a smooth contour to the liver. No intrahepatic mass is | | present. There is no intrahepatic biliary ductal dilatation. No fatty liver is noted. | | The gallbladder is normal in appearance. There are no common bile duct stones. The | | spleen is normal in size. The visualized adrenal glands are normal. The pancreas | | demonstrates moderate atrophy. A cystic structure is seen along the body of the pancreas | | measuring 4.7 mm on image 14 series 5. There is no dilatation of the pancreatic duct. | | The kidneys have a normal reniform contour. There is no hydronephrosis. No perinephric | | stranding. There is mild edema of the paraspinous musculature, right greater than left. | | The aorta and IVC are normal. Following gadolinium enhancement, there is smooth | | enhancement of the pleural lining. No hyperenhancing mass lesion of the liver is | | demonstrated. There is normal opacification of the portal and hepatic veins. The kidneys | | demonstrate bilateral symmetric nephrograms. There is fat marrow throughout the lumbar | | spine and visualized pelvis likely reflective of post radiation treatment changes. | | IMPRESSION: 1. No evidence of pancreatitis is found.2. There is a probable simple cyst | | along the body of the pancreas.3. There is a small amount of right-sided pleural | | fluid. Enhancement of the right pleural lining may reflect some inflammation.4. | | Pneumonia and atelectasis of the right middle and lower lobes. | |There is fat marrow throughout the lumbar spine and visualized pelvis likely reflective of post radiation treatment changes. | | | |IMPRESSION: | |1. No evidence of pancreatitis is found. | |2. There is a probable simple cyst along the body of the pancreas. | |3. There is a small amount of right-sided pleural fluid. Enhancement of the right pleural lining may reflect some inflammation. | |4. Pneumonia and atelectasis of the right middle and lower lobes. | | | | | + + POC Glucose (01/23/2015 1:15 PM PDT) + + + + + + | Component | Value | Ref Range | Performed | Pathologist | | | | | At | Signature | + + + + + + | Glucose, | 132 (H)Comment: Testing | 65 - 99 mg/dL | EXTERNAL | | | Fingerstick | performed at [facility];[address] | | LAB | | | | [address];[place] | | | | | | [address] | | | | + + + + + + + + | Specimen | + + | | + + + +---------+ + + | Performing | Address | City/State/Zipcode | Phone Number | | Organization | | | | + +---------+ + + | EXTERNAL LAB | | | | + +---------+ + + XR Chest 1 Vw (01/23/2015 5:52 AM PDT) + + | Specimen | + + | | + + + + + | Impressions | Performed At | + + + | 1. Right pigtail catheter overlying the pleural space with a | | | kink at the mid thorax. 2. Unchanged consolidation of the right lung | | | predominantly at the right lung base. | | + + + + + + | Narrative | Performed At | + + + | JOSE EATON 1950 64 years XR CHEST 1 VIEW 01/23/2015 | | | 5:52 AM INDICATION: Tube and line position. COMPARISON: | | | January 22, 2015 TECHNIQUE: Chest 1 view, AP view of the chest | | | FINDINGS: Right Mediport catheter tip within the lower superior vena | | | cava. Right pigtail catheter overlying the pleural space with a | | | kink at the mid thorax. Unchanged right lung consolidation. | | | Previously seen right apical pneumothorax not well visualized. No | | | left pneumothorax. Upper mediastinal contours and heart size are | | | normal. No acute osseous abnormality. | | + + + + --------+ | Procedure Note | + --------+ | Frederic, Rad Conversion - 11/10/2018 8:48 AM PDT JOSE [id number] yearsXR CHEST | | 1 VIEW01/23/2015 5:52 AM INDICATION: Tube and line position. COMPARISON: January 22 | | 2014 TECHNIQUE: Chest 1 view, AP view of the chest FINDINGS:Right Mediport catheter tip | | within the lower superior vena cava. Right pigtail catheter overlying the pleural space | | with a kink at the mid thorax. Unchanged right lung consolidation. Previously seen right | | apical pneumothorax not well visualized. No left pneumothorax. Upper mediastinal | | contours and heart size are normal. No acute osseous abnormality. IMPRESSION: 1. Right | | pigtail catheter overlying the pleural space with a kink at the mid thorax.2. Unchanged | | consolidation of the right lung predominantly at the right lung base. Electronically | | signed by Michael Nixon MD on 01/23/2015 6:41 AM | |TECHNIQUE: Chest 1 view, AP view of the chest | | | |FINDINGS: | |Right Mediport catheter tip within the lower superior vena cava. | | | |Right pigtail catheter overlying the pleural space with a kink at the mid thorax. | | | |Unchanged right lung consolidation. Previously seen right apical pneumothorax not well visu alized. | | | |No left pneumothorax. | | | |Upper mediastinal contours and heart size are normal. | | | |No acute osseous abnormality. | | | |IMPRESSION: | | | | | |1. Right pigtail catheter overlying the pleural space with a kink at the mid thorax. | |2. Unchanged consolidation of the right lung predominantly at the right lung base. | | | | | + --------+ POC Glucose (01/23/2015 5:10 AM PDT) + + + + + + | Component | Value | Ref Range | Performed | Pathologist | | | | | At | Signature | + + + + + + | Glucose, | 124 (H)Comment: Testing | 65 - 99 mg/dL | EXTERNAL | | | Fingerstick | performed at [facility];[address] | | LAB | | | | [address];[place] | | | | | | [address] | | | | + + + + + + + + | Specimen | + + | | + + + +---------+ + + | Performing | Address | City/State/Zipcode | Phone Number | | Organization | | | | + +---------+ + + | EXTERNAL LAB | | | | + +---------+ + + External Lab: CBC (01/23/2015 3:22 AM PDT) + + + + + + | Component | Value | Ref Range | Performed | Pathologist | | | | | At | Signature | + + + + + + | WBC | 10.73Comment: Testing | 3.80 - 11.00 | EXTERNAL | | | | performed at [facility], [address] | K/uL | LAB | | | | [address], | | | | | | [place] [address] | | | | + + + + + + | RED CELL | 2.47 (L)Comment: Testing | 4.20 - 5.70 | EXTERNAL | | | COUNT | performed at [facility], [address] | M/uL | LAB | | | | [address], | | | | | | [place] [address] | | | | + + + + + + | Hgb | 8.2 (L)Comment: Testing | 13.2 - 17.0 | EXTERNAL | | | | performed at [facility], [address] | g/dL | LAB | | | | [address], | | | | | | [place] [address] | | | | + + + + + + | Hematocrit, | 24.1 (L)Comment: Testing | 39.0 - 50.0 % | EXTERNAL | | | POC | performed at [facility], [address] | | LAB | | | | [address], | | | | | | [place] [address] | | | | + + + + + + | MCV | 97.5Comment: Testing | 80.0 - 100.0 fl | EXTERNAL | | | | performed at [facility], [address] | | LAB | | | | [address], | | | | | | [place] [address] | | | | + + + + + + | MCH | 33.3Comment: Testing | 27.0 - 34.0 pg | EXTERNAL | | | | performed at [facility], [address] | | LAB | | | | [address], | | | | | | [place] [address] | | | | + + + + + + | MCHC | 34.2Comment: Testing | 32.0 - 35.5 | EXTERNAL | | | | performed at [facility], [address] | g/dL | LAB | | | | [address], | | | | | | [place] [address] | | | | + + + + + + | RDW-CV | 44.2Comment: Testing | 37 - 53 fl | EXTERNAL | | | | performed at [facility], [address] | | LAB | | | | [address], | | | | | | [place] [address] | | | | + + + + + + | Platelet | 408 (H)Comment: Testing | 150 - 400 K/uL | EXTERNAL | | | Count | performed at [facility], [address] | | LAB | | | Plasma | [address], | | | | | | [place] [address] | | | | + + + + + + | MPV | 8.7Comment: Testing | fl | EXTERNAL | | | | performed at [facility], [address] | | LAB | | | | [address], | | | | | | [place] [address] | | | | + + + + + + | Differentia | MANUALComment: Testing | | EXTERNAL | | | l Type | performed at [facility], [address] | | LAB | | | | [address], | | | | | | [place], [place] [address] | | | | + + + + + + | Segmented | 84Comment: Testing | % | EXTERNAL | | | Neutrophils | performed at [facility], [address] | | LAB | | | Manual | [address], | | | | | | [place], [place] [address] | | | | + + + + + + | % Bands | 3Comment: Testing | % | EXTERNAL | | | | performed at [facility], [address] | | LAB | | | | [address], | | | | | | [place], [place] [address] | | | | + + + + + + | % | 1Comment: Testing | % | EXTERNAL | | | Metamyelocy | performed at [facility], [address] | | LAB | | | [address] | [address], | | | | | | [place], [place] [address] | | | | + + + + + + | Lymphocytes | 6Comment: Testing | % | EXTERNAL | | | Manual | performed at [facility], [address] | | LAB | | | | [address], | | | | | | [place] [address] | | | | + + + + + + | Monocytes | 3Comment: Testing | % | EXTERNAL | | | Manual | performed at [facility], [address] | | LAB | | | [address], | | | | | | [place] [address] | | | | + + + + + + | Eosinophils | 3Comment: Testing | % | EXTERNAL | | | Manual | performed at [facility], [address] | | LAB | | | | [address], | | | | | | [place] [address] | | | | + + + + + + | Absolute | 9.02 (H)Comment: Testing | 1.90 - 7.40 | EXTERNAL | | | Neutrophils | performed at [facility], [address] | K/uL | LAB | | | | [address], | | | | | | [place] [address] | | | | + + + + + + | Bands | 0.32 (H)Comment: Testing | 0.00 - 0.20 | EXTERNAL | | | Manual | performed at [facility], [address] | K/uL | LAB | | | | [address], | | | | | | [place] [address] | | | | + + + + + + | Absolute | 0.11 (H)Comment: Testing | K/uL | EXTERNAL | | | Metamyelocy | performed at [facility], [address] | | LAB | | | [address] | [address], | | | | | | [place] [address] | | | | + + + + + + | Absolute | 0.64 (L)Comment: Testing | 1.00 - 3.90 | EXTERNAL | | | Lymphocytes | performed at [facility], [address] | K/uL | LAB | | | | [address], | | | | | | [place] [address] | | | | + + + + + + | Absolute | 0.32Comment: Testing | 0.00 - 0.80 | EXTERNAL | | | Monocytes | performed at [facility], [address] | K/uL | LAB | | | | [address], | | | | | | [place] [address] | | | | + + + + + + | Absolute | 0.32Comment: Testing | 0.00 - 0.50 | EXTERNAL | | | Eosinophils | performed at [facility], [address] | K/uL | LAB | | | | [address], | | | | | | [place] [address] | | | | + + + + + + | Platelet | INCREASEDComment: | | EXTERNAL | | | Estimate | Testing performed at | | LAB | | | | [facility], [address] [facility] | | | | | | [place] | | | | | | [address] | | | | + + + + + + | RBC | 1+Comment: ANISONORMAL | | EXTERNAL | | | Morphology | PLT MORPHTesting | | LAB | | | | performed at [facility], [address] | | | | | | [facility], | | | | | | [place] [address] | | | | | | | | | | + + + + + + + + | Specimen | + + | Blood specimen | | (specimen) | + + + +---------+ + + | Performing | Address | City/State/Zipcode | Phone Number | | Organization | | | | + +---------+ + + | EXTERNAL LAB | | | | + +---------+ + + Phosphorus (01/23/2015 3:22 AM PDT) + + + + + + | Component | Value | Ref Range | Performed | Pathologist | | | | | At | Signature | + + + + + + | PHOSPHORUS | 4.1Comment: Testing | 2.3 - 4.8 mg/dL | EXTERNAL | | | | performed at [facility];[address] | | LAB | | | | [address];[place], [place] | | | | | | [address] | | | | + + + + + + + + | Specimen | + + | Blood specimen | | (specimen) | + + + +---------+ + + | Performing | Address | City/State/Zipcode | Phone Number | | Organization | | | | + +---------+ + + | EXTERNAL LAB | | | | + +---------+ + + Magnesium (01/23/2015 3:22 AM PDT) + + + + + + | Component | Value | Ref Range | Performed | Pathologist | | | | | At | Signature | + + + + + + | Magnesium | 2.2Comment: Testing | 1.7 - 2.4 mg/dL | EXTERNAL | | | | performed at [facility];[address] | | LAB | | | | [address];[place] | | | | | | [address] | | | | + + + + + + + + | Specimen | + + | Blood specimen | | (specimen) | + + + +---------+ + + | Performing | Address | City/State/Zipcode | Phone Number | | Organization | | | | + +---------+ + + | EXTERNAL LAB | | | | + +---------+ + + Lipase (01/23/2015 3:22 AM PDT) + + + + + + | Component | Value | Ref Range | Performed | Pathologist | | | | | At | Signature | + + + + + + | Lipase | 421 (H)Comment: Testing | 73 - 393 U/L | EXTERNAL | | | | performed at [facility];[address] | | LAB | | | | [address];[place], [place] | | | | | | [address] | | | | + + + + + + + + | Specimen | + + | Blood specimen | | (specimen) | + + + +---------+ + + | Performing | Address | City/State/Zipcode | Phone Number | | Organization | | | | + +---------+ + + | EXTERNAL LAB | | | | + +---------+ + + Digoxin Level (01/23/2015 3:22 AM PDT) + + + + + + | Component | Value | Ref Range | Performed | Pathologist | | | | | At | Signature | + + + + + + | Date of | UNKNOWNComment: Testing | | EXTERNAL | | | Last Dose | performed at [facility];[address] | | LAB | | | | [address];[place] | | | | | | [address] | | | | + + + + + + | Time of | UNKNOWNComment: Testing | | EXTERNAL | | | Last Dose | performed at [facility];[address] | | LAB | | | | [address];[place] | | | | | | [address] | | | | + + + + + + | Digoxin | 1.3Comment: Testing | 0.90 - 2.00 | EXTERNAL | | | level | performed at [facility], [address] | ng/mL | LAB | | | | [address], | | | | | | [place] [address] | | | | + + + [...] + +---------+ + + Basic Metabolic Panel (01/23/2015 3:22 AM PDT) + + + + + + | Component | Value | Ref Range | Performed | Pathologist | | | | | At | Signature | + + + + + + | Na | 135Comment: Testing | 135 - 143 | EXTERNAL | | | | performed at [facility];[address] | mmol/L | LAB | | | | [address];[place] | | | | | | [address] | | | | + + + + + + | K | 4.3Comment: Testing | 3.5 - 4.9 | EXTERNAL | | | | performed at [facility];[address] | mmol/L | LAB | | | | [address];[place] | | | | | | [address] | | | | + + + + + + | Cl | 103Comment: Testing | 99 - 109 mmol/L | EXTERNAL | | | | performed at [facility];[address] | | LAB | | | | [address];[place] | | | | | | [address] | | | | + + + + + + | CO2 | 28Comment: Testing | 23 - 32 mmol/L | EXTERNAL | | | | performed at [facility];[address] | | LAB | | | | [address];[place] | | | | | | [address] | | | | + + + + + + | Anion Gap | 8Comment: Testing | 5 - 20 mmol/L | EXTERNAL | | | | performed at [facility];[address] | | LAB | | | | [address];[place] | | | | | | [address] | | | | + + + + + + | Glucose, | 113 (H)Comment: Testing | 65 - 99 mg/dL | EXTERNAL | | | Fasting | performed at [facility];[address] | | LAB | | | | [address];[place] | | | | | | [address] | | | | + + + + + + | BUN | 27 (H)Comment: Testing | 8 - 25 mg/dL | EXTERNAL | | | | performed at [facility];[address] | | LAB | | | | [address];[place] | | | | | | [address] | | | | + + + + + + | Creatinine | 0.65 (L)Comment: Testing | 0.70 - 1.30 | EXTERNAL | | | | performed at [facility];[address] | mg/dL | LAB | | | | [address];[place] | | | | | | [address] | | | | + + + + + + | BUN/Creatin | 42Comment: Testing | | EXTERNAL | | | ine Ratio | performed at [facility];[address] | | LAB | | | | [address];[place] | | | | | | [address] | | | | + + + + + + | Calcium | 8.0 (L)Comment: Testing | 8.5 - 10.5 | EXTERNAL | | | | performed at [facility];[address] | mg/dL | LAB | | | | [address];[place] | | | | | | [address] | | | | + + + [...] | | | | | | at [facility];[address] [place] [address] | | | | | | [facility];[place] [address] | | | | + + + + + + + + | Specimen | + + | Blood specimen | | (specimen) | + + + +---------+ + + | Performing | Address | City/State/Zipcode | Phone Number | | Organization | | | | + +---------+ + + | EXTERNAL LAB | | | | + +---------+ + + POC Glucose (01/22/2015 11:26 PM PDT) + + + + + + | Component | Value | Ref Range | Performed | Pathologist | | | | | At | Signature | + + + + + + | Glucose, | 134 (H)Comment: Testing | 65 - 99 mg/dL | EXTERNAL | | | Fingerstick | performed at [facility];[address] | | LAB | | | | [address];[place], [place] | | | | | | [address] | | | | + + + + + + + + | Specimen | + + | | + + + +---------+ + + | Performing | Address | City/State/Zipcode | Phone Number | | Organization | | | | + +---------+ + + | EXTERNAL LAB | | | | + +---------+ + + Potassium (01/22/2015 9:33 PM PDT) + + + + + + | Component | Value | Ref Range | Performed | Pathologist | | | | | At | Signature | + + + + + + | K | 4.1Comment: Testing | 3.5 - 4.9 | EXTERNAL | | | | performed at [facility];[address] | mmol/L | LAB | | | | [address];[place] | | | | | | [address] | | | | + + + + + + + + | Specimen | + + | Blood specimen | | (specimen) | + + + +---------+ + + | Performing | Address | City/State/Zipcode | Phone Number | | Organization | | | | + +---------+ + + | EXTERNAL LAB | | | | + +---------+ + + Phosphorus (01/22/2015 9:33 PM PDT) + + + + + + | Component | Value | Ref Range | Performed | Pathologist | | | | | At | Signature | + + + + + + | PHOSPHORUS | 4.1Comment: Testing | 2.3 - 4.8 mg/dL | EXTERNAL | | | | performed at [facility];[address] | | LAB | | | | [address];[place], [place] | | | | | | [address] | | | | + + + + + + + + | Specimen | + + | Blood specimen | | (specimen) | + + + +---------+ + + | Performing | Address | City/State/Zipcode | Phone Number | | Organization | | | | + +---------+ + + | EXTERNAL LAB | | | | + +---------+ + + Magnesium (01/22/2015 9:33 PM PDT) + + + + + + | Component | Value | Ref Range | Performed | Pathologist | | | | | At | Signature | + + + + + + | Magnesium | 2.1Comment: Testing | 1.7 - 2.4 mg/dL | EXTERNAL | | | | performed at [facility];[address] | | LAB | | | | [address];[place], [place] | | | | | | [address] | | | | + + + + + + + + | Specimen | + + | Blood specimen | | (specimen) | + + + +---------+ + + | Performing | Address | City/State/Zipcode | Phone Number | | Organization | | | | + +---------+ + + | EXTERNAL LAB | | | | + +---------+ + + POC Glucose (01/22/2015 5:52 PM PDT) + + + + + + | Component | Value | Ref Range | Performed | Pathologist | | | | | At | Signature | + + + + + + | Glucose, | 123 (H)Comment: Testing | 65 - 99 mg/dL | EXTERNAL | | | Fingerstick | performed at [facility];[address] | | LAB | | | | [address];[place], [place] | | | | | | [address] | | | | + + + + + + + + | Specimen | + + | | + + + +---------+ + + | Performing | Address | City/State/Zipcode | Phone Number | | Organization | | | | + +---------+ + + | EXTERNAL LAB | | | | + +---------+ + + POC Glucose (01/22/2015 11:44 AM PDT) + + + + + + | Component | Value | Ref Range | Performed | Pathologist | | | | | At | Signature | + + + + + + | Glucose, | 133 (H)Comment: Testing | 65 - 99 mg/dL | EXTERNAL | | | Fingerstick | performed at [facility];[address] | | LAB | | | | [address];[place], [place] | | | | | | [address] | | | | + + + + + + + + | Specimen | + + | | + + + +---------+ + + | Performing | Address | City/State/Zipcode | Phone Number | | Organization | | | | + +---------+ + + | EXTERNAL LAB | | | | + +---------+ + + External Lab: CBC (01/22/2015 6:26 AM PDT) + + + + + + | Component | Value | Ref Range | Performed | Pathologist | | | | | At | Signature | + + + + + + | WBC | 12.23 (H)Comment: | 3.80 - 11.00 | EXTERNAL | | | | Testing performed at | K/uL | LAB | | | | [facility];[address];[place] [address] | | | | + + + + + + | RED CELL | 2.60 (L)Comment: Testing | 4.20 - 5.70 | EXTERNAL | | | COUNT | performed at [facility];[address] | M/uL | LAB | | | | [address];[place] | | | | | | [address] | | | | + + + + + + | Hgb | 8.3 (L)Comment: Testing | 13.2 - 17.0 | EXTERNAL | | | | performed at [facility];[address] | g/dL | LAB | | | | [address];[place] | | | | | | [address] | | | | + + + + + + | Hematocrit, | 25.4 (L)Comment: Testing | 39.0 - 50.0 % | EXTERNAL | | | POC | performed at [facility];[address] | | LAB | | | | [address];[place] | | | | | | [address] | | | | + + + + + + | MCV | 97.8Comment: Testing | 80.0 - 100.0 fl | EXTERNAL | | | | performed at [facility];[address] | | LAB | | | | [address];[place] | | | | | | [address] | | | | + + + + + + | MCH | 31.9Comment: Testing | 27.0 - 34.0 pg | EXTERNAL | | | | performed at [facility];[address] | | LAB | | | | [address];[place] | | | | | | [address] | | | | + + + + + + | MCHC | 32.6Comment: Testing | 32.0 - 35.5 | EXTERNAL | | | | performed at [facility];[address] | g/dL | LAB | | | | [address];[place] | | | | | | [address] | | | | + + + + + + | RDW-CV | 46.4Comment: Testing | 37 - 53 fl | EXTERNAL | | | | performed at [facility];[address] | | LAB | | | | [address];[place] | | | | | | [address] | | | | + + + + + + | Platelet | 320Comment: Testing | 150 - 400 K/uL | EXTERNAL | | | Count | performed at [facility];[address] | | LAB | | | Plasma | [address];[place] | | | | | | [address] | | | | + + + + + + | MPV | 8.6Comment: Testing | fl | EXTERNAL | | | | performed at [facility];[address] | | LAB | | | | [address];[place] | | | | | | [address] | | | | + + + + + + | Differentia | MANUALComment: Testing | | EXTERNAL | | | l Type | performed at [facility];[address] | | LAB | | | | [address];[place] | | | | | | [address] | | | | + + + + + + | Segmented | 77Comment: Testing | % | EXTERNAL | | | Neutrophils | performed at [facility];[address] | | LAB | | | Manual | [address];[place] | | | | | | [address] | | | | + + + + + + | % Bands | 7Comment: Testing | % | EXTERNAL | | | | performed at [facility];[address] | | LAB | | | | [address];[place] | | | | | | [address] | | | | + + + + + + | Lymphocytes | 6Comment: Testing | % | EXTERNAL | | | Manual | performed at [facility];[address] | | LAB | | | | [address];[place] | | | | | | [address] | | | | + + + + + + | Monocytes | 9Comment: Testing | % | EXTERNAL | | | Manual | performed at [facility];[address] | | LAB | | | | [address];[place] | | | | | | [address] | | | | + + + + + + | Eosinophils | 1Comment: Testing | % | EXTERNAL | | | Manual | performed at [facility];[address] | | LAB | | | | [address];[place] | | | | | | [address] | | | | + + + + + + | Absolute | 9.42 (H)Comment: Testing | 1.90 - 7.40 | EXTERNAL | | | Neutrophils | performed at [facility];[address] | K/uL | LAB | | | | [address];[place] | | | | | | [address] | | | | + + + + + + | Bands | 0.86 (H)Comment: Testing | 0.00 - 0.20 | EXTERNAL | | | Manual | performed at [facility];[address] | K/uL | LAB | | | | [address];[place] | | | | | | [address] | | | | + + + + + + | Absolute | 0.73 (L)Comment: Testing | 1.00 - 3.90 | EXTERNAL | | | Lymphocytes | performed at [facility];[address] | K/uL | LAB | | | | [address];[place] | | | | | | [address] | | | | + + + + + + | Absolute | 1.10 (H)Comment: Testing | 0.00 - 0.80 | EXTERNAL | | | Monocytes | performed at [facility];[address] | K/uL | LAB | | | | [address];[place] | | | | | | [address] | | | | + + + + + + | Absolute | 0.12Comment: Testing | 0.00 - 0.50 | EXTERNAL | | | Eosinophils | performed at [facility];[address] | K/uL | LAB | | | | [address];[place] | | | | | | [address] | | | | + + + + + + | RBC | RBC AND PLT MORPHOLOGY | | EXTERNAL | | | Morphology | APPEAR NORMALComment: | | LAB | | | | Testing performed at | | | | | | [facility];[address];[place] [address] | | | | + + + + + + + + | Specimen | + + | | + + + +---------+ + + | Performing | Address | City/State/Zipcode | Phone Number | | Organization | | | | + +---------+ + + | EXTERNAL LAB | | | | + +---------+ + + Phosphorus (01/22/2015 6:26 AM PDT) + + + + + + | Component | Value | Ref Range | Performed | Pathologist | | | | | At | Signature | + + + + + + | PHOSPHORUS | 4.1Comment: Testing | 2.3 - 4.8 mg/dL | EXTERNAL | | | | performed at [facility];[address] | | LAB | | | | [address];[place], [place] | | | | | | [address] | | | | + + + + + + + + | Specimen | + + | | + + + +---------+ + + | Performing | Address | City/State/Zipcode | Phone Number | | Organization | | | | + +---------+ + + | EXTERNAL LAB | | | | + +---------+ + + Magnesium (01/22/2015 6:26 AM PDT) + + + + + + | Component | Value | Ref Range | Performed | Pathologist | | | | | At | Signature | + + + + + + | Magnesium | 2.4Comment: Testing | 1.7 - 2.4 mg/dL | EXTERNAL | | | | performed at [facility] | | LAB | | | | [address];[place], [place] | | | | | | [address] | | | | + + + + + + + + | Specimen | + + | | + + + +---------+ + + | Performing | Address | City/State/Zipcode | Phone Number | | Organization | | | | + +---------+ + + | EXTERNAL LAB | | | | + +---------+ + + Basic Metabolic Panel (01/22/2015 6:26 AM PDT) + + + + + + | Component | Value | Ref Range | Performed | Pathologist | | | | | At | Signature | + + + + + + | Na | 137Comment: Testing | 135 - 143 | EXTERNAL | | | | performed at [facility];[address] | mmol/L | LAB | | | | [address];[place] | | | | | | [address] | | | | + + + + + + | K | 4.2Comment: Testing | 3.5 - 4.9 | EXTERNAL | | | | performed at [facility];[address] | mmol/L | LAB | | | | [address];[place] | | | | | | [address] | | | | + + + + + + | Cl | 104Comment: Testing | 99 - 109 mmol/L | EXTERNAL | | | | performed at [facility];[address] | | LAB | | | | [address];[place] | | | | | | [address] | | | | + + + + + + | CO2 | 26Comment: Testing | 23 - 32 mmol/L | EXTERNAL | | | | performed at [facility];[address] | | LAB | | | | [address];[place] | | | | | | [address] | | | | + + + + + + | Anion Gap | 11Comment: Testing | 5 - 20 mmol/L | EXTERNAL | | | | performed at [facility];[address] | | LAB | | | | [address];[place] | | | | | | [address] | | | | + + + + + + | Glucose, | 123 (H)Comment: Testing | 65 - 99 mg/dL | EXTERNAL | | | Fasting | performed at [facility];[address] | | LAB | | | | [address];[place] | | | | | | [address] | | | | + + + + + + | BUN | 27 (H)Comment: Testing | 8 - 25 mg/dL | EXTERNAL | | | | performed at [facility];[address] | | LAB | | | | [address];[place] | | | | | | [address] | | | | + + + + + + | Creatinine | 0.57 (L)Comment: Testing | 0.70 - 1.30 | EXTERNAL | | | | performed at [facility];888 | mg/dL | LAB | | | | [address];[place] | | | | | | [address] | | | | + + + + + + | BUN/Creatin | 47Comment: Testing | | EXTERNAL | | | ine Ratio | performed at [facility];[address] | | LAB | | | | [address];[place] | | | | | | [address] | | | | + + + + + + | Calcium | 7.8 (L)Comment: Testing | 8.5 - 10.5 | EXTERNAL | | | | performed at [facility];888 | mg/dL | LAB | | | | [address];[place] | | | | | | [address] | | | | + + + [...] | | | | | | at [facility];[address] [place] [address] | | | | | | [facility];[place] [address] | | | | + + + + + + + + | Specimen | + + | | + + + +---------+ + + | Performing | Address | City/State/Zipcode | Phone Number | | Organization | | | | + +---------+ + + | EXTERNAL LAB | | | | + +---------+ + + POC Glucose (01/22/2015 6:01 AM PDT) + + + + + + | Component | Value | Ref Range | Performed | Pathologist | | | | | At | Signature | + + + + + + | Glucose, | 135 (H)Comment: Testing | 65 - 99 mg/dL | EXTERNAL | | | Fingerstick | performed at [facility];[address] | | LAB | | | | [address];[place], [place] | | | | | | [address] | | | | + + + + + + + + | Specimen | + + | | + + + +---------+ + + | Performing | Address | City/State/Zipcode | Phone Number | | Organization | | | | + +---------+ + + | EXTERNAL LAB | | | | + +---------+ + + XR Chest 1 Vw (01/22/2015 5:58 AM PDT) + + | Specimen | + + | | + + + + + | Impressions | Performed At | + + + | 1. Small right apical pneumothorax measuring 6 mm from the | | | chest wall. 2. Persistent right lung consolidation, unchanged from | | | the prior exam. Electronically signed by Michael Nixon MD on | | | 01/22/2015 6:40 AM | | + + + + + + | Narrative | Performed At | + + + | JOSE EATON 1950 64 years XR CHEST 1 VIEW 01/22/2015 | | | 5:58 AM INDICATION: Tube and line position. COMPARISON: | | | January 21, 2015 TECHNIQUE: Chest 1 view, AP view of the chest | | | FINDINGS: Mediport catheter tip within the mid superior vena cava. | | | Pigtail drain overlying the right pleural space. Small right | | | apical pneumothorax measuring 6 mm from the chest wall. Unchanged | | | consolidation, predominantly at the right lung base. Interval | | | extubation. Interval removal of enteric tube. Heart size and | | | mediastinal contours are normal. No acute osseous abnormality. | | + + + + + | Procedure Note | + + | Frederic, Rad Conversion - 11/10/2018 8:48 AM PDT JOSE [id number] yearsXR CHEST | | 1 VIEW01/22/2015 5:58 AM INDICATION: Tube and line position. COMPARISON: January 21 | | 2014 TECHNIQUE: Chest 1 view, AP view of the chest FINDINGS:Mediport catheter tip within | | the mid superior vena cava. Pigtail drain overlying the right pleural space. Small | | right apical pneumothorax measuring 6 mm from the chest wall. Unchanged consolidation, | | predominantly at the right lung base. Interval extubation. Interval removal of enteric | | tube. Heart size and mediastinal contours are normal. No acute osseous abnormality. | | IMPRESSION: 1. Small right apical pneumothorax measuring 6 mm from the chest wall.2. | | Persistent right lung consolidation, unchanged from the prior exam. Electronically | | signed by Michael Nixon MD on 01/22/2015 6:40 AM | |TECHNIQUE: Chest 1 view, AP view of the chest | | | |FINDINGS: | |Mediport catheter tip within the mid superior vena cava. Pigtail drain overlying the right pleural space. | | | |Small right apical pneumothorax measuring 6 mm from the chest wall. | | | |Unchanged consolidation, predominantly at the right lung base. | | | |Interval extubation. Interval removal of enteric tube. | | | |Heart size and mediastinal contours are normal. No acute osseous abnormality. | | | |IMPRESSION: | | | | | |1. Small right apical pneumothorax measuring 6 mm from the chest wall. | |2. Persistent right lung consolidation, unchanged from the prior exam. | | | | | + + External Lab: CBC (01/22/2015 4:15 AM PDT) + + + + + + | Component | Value | Ref Range | Performed | Pathologist | | | | | At | Signature | + + + + + + | WBC | 10.60Comment: Testing | 3.80 - 11.00 | EXTERNAL | | | | performed at [facility], [address] | K/uL | LAB | | | | [address], | | | | | | [place] [address] | | | | + + + + + + | RED CELL | 2.32 (L)Comment: Testing | 4.20 - 5.70 | EXTERNAL | | | COUNT | performed at [facility], [address] | M/uL | LAB | | | | [address], | | | | | | [place] [address] | | | | + + + + + + | Hgb | 7.6 (L)Comment: Testing | 13.2 - 17.0 | EXTERNAL | | | | performed at [facility], [address] | g/dL | LAB | | | | [address], | | | | | | [place] [address] | | | | + + + + + + | Hematocrit, | 25.2 (L)Comment: Testing | 39.0 - 50.0 % | EXTERNAL | | | POC | performed at [facility], [address] | | LAB | | | | [address], | | | | | | [place] [address] | | | | + + + + + + | MCV | 108.4 (H)Comment: | 80.0 - 100.0 fl | EXTERNAL | | | | Testing performed at | | LAB | | | | [facility], [address] [facility] | | | | | | [place] | | | | | | [address] | | | | + + + + + + | MCH | 32.7Comment: Testing | 27.0 - 34.0 pg | EXTERNAL | | | | performed at [facility], [address] | | LAB | | | | [address], | | | | | | [place] [address] | | | | + + + + + + | MCHC | 30.2 (L)Comment: Testing | 32.0 - 35.5 | EXTERNAL | | | | performed at [facility], [address] | g/dL | LAB | | | | [address], | | | | | | [place] [address] | | | | + + + + + + | RDW-CV | 57.3 (H)Comment: Testing | 37 - 53 fl | EXTERNAL | | | | performed at [facility], [address] | | LAB | | | | [address], | | | | | | [place] [address] | | | | + + + + + + | Platelet | 291Comment: Testing | 150 - 400 K/uL | EXTERNAL | | | Count | performed at [facility], [address] | | LAB | | | Plasma | [address], | | | | | | [place] [address] | | | | + + + + + + | MPV | 9.1Comment: Testing | fl | EXTERNAL | | | | performed at [facility], [address] | | LAB | | | | [address], | | | | | | [place] [address] | | | | + + + + + + | Differentia | MANUALComment: Testing | | EXTERNAL | | | l Type | performed at [facility], [address] | | LAB | | | | [address], | | | | | | [place] [address] | | | | + + + + + + | Segmented | 78Comment: Testing | % | EXTERNAL | | | Neutrophils | performed at [facility], [address] | | LAB | | | Manual | [address], | | | | | | [place] [address] | | | | + + + + + + | % Bands | 6Comment: Testing | % | EXTERNAL | | | | performed at [facility], [address] | | LAB | | | | [address], | | | | | | [place] [address] | | | | + + + + + + | Lymphocytes | 6Comment: Testing | % | EXTERNAL | | | Manual | performed at [facility], [address] | | LAB | | | | [address], | | | | | | [place] [address] | | | | + + + + + + | Monocytes | 8Comment: Testing | % | EXTERNAL | | | Manual | performed at [facility], [address] | | LAB | | | | [address], | | | | | | [place] [address] | | | | + + + + + + | Eosinophils | 2Comment: Testing | % | EXTERNAL | | | Manual | performed at [facility], [address] | | LAB | | | | [address], | | | | | | [place] [address] | | | | + + + + + + | Absolute | 8.26 (H)Comment: Testing | 1.90 - 7.40 | EXTERNAL | | | Neutrophils | performed at [facility], [address] | K/uL | LAB | | | | [address], | | | | | | [place] [address] | | | | + + + + + + | Bands | 0.64 (H)Comment: Testing | 0.00 - 0.20 | EXTERNAL | | | Manual | performed at [facility], [address] | K/uL | LAB | | | | [address], | | | | | | [place] [address] | | | | + + + + + + | Absolute | 0.64 (L)Comment: Testing | 1.00 - 3.90 | EXTERNAL | | | Lymphocytes | performed at [facility], [address] | K/uL | LAB | | | | [address], | | | | | | [place] [address] | | | | + + + + + + | Absolute | 0.85 (H)Comment: Testing | 0.00 - 0.80 | EXTERNAL | | | Monocytes | performed at [facility], [address] | K/uL | LAB | | | | [address], | | | | | | [place] [address] | | | | + + + + + + | Absolute | 0.21Comment: Testing | 0.00 - 0.50 | EXTERNAL | | | Eosinophils | performed at [facility], [address] | K/uL | LAB | | | [address], | | | | | | [place] [address] | | | | + + + + + + | RBC | 2+Comment: MACRONORMAL | | EXTERNAL | | | Morphology | PLT MORPHTesting | | LAB | | | | performed at [facility], [address] | | | | | | [address], | | | | | | [place] [address] | | | | | | | | | | + + + + + + + + | Specimen | + + | Blood specimen | | (specimen) | + + + +---------+ + + | Performing | Address | City/State/Zipcode | Phone Number | | Organization | | | | + +---------+ + + | EXTERNAL LAB | | | | + +---------+ + + POC Glucose (01/21/2015 11:55 PM PDT) + + + + + + | Component | Value | Ref Range | Performed | Pathologist | | | | | At | Signature | + + + + + + | Glucose, | 128 (H)Comment: Testing | 65 - 99 mg/dL | EXTERNAL | | | Fingerstick | performed at [facility];[address] | | LAB | | | | [address];[place] | | | | | | [address] | | | | + + + + + + + + | Specimen | + + | | + + + +---------+ + + | Performing | Address | City/State/Zipcode | Phone Number | | Organization | | | | + +---------+ + + | EXTERNAL LAB | | | | + +---------+ + + POC Glucose (01/21/2015 7:01 PM PDT) + + + + + + | Component | Value | Ref Range | Performed | Pathologist | | | | | At | Signature | + + + + + + | Glucose, | 154 (H)Comment: Testing | 65 - 99 mg/dL | EXTERNAL | | | Fingerstick | performed at [facility];[address] | | LAB | | | | [address];[place], [place] | | | | | | [address] | | | | + + + + + + + + | Specimen | + + | | + + + +---------+ + + | Performing | Address | City/State/Zipcode | Phone Number | | Organization | | | | + +---------+ + + | EXTERNAL LAB | | | | + +---------+ + + POC Glucose (01/21/2015 1:00 PM PDT) + + + + + + | Component | Value | Ref Range | Performed | Pathologist | | | | | At | Signature | + + + + + + | Glucose, | 163 (H)Comment: Testing | 65 - 99 mg/dL | EXTERNAL | | | Fingerstick | performed at [facility];[address] | | LAB | | | | [address];[place], [place] | | | | | | [address] | | | | + + + + + + + + | Specimen | + + | | + + + +---------+ + + | Performing | Address | City/State/Zipcode | Phone Number | | Organization | | | | + +---------+ + + | EXTERNAL LAB | | | | + +---------+ + + POC Glucose (01/21/2015 6:15 AM PDT) + + + + + + | Component | Value | Ref Range | Performed | Pathologist | | | | | At | Signature | + + + + + + | Glucose, | 149 (H)Comment: Testing | 65 - 99 mg/dL | EXTERNAL | | | Fingerstick | performed at [facility];[address] | | LAB | | | | [address];[place], [place] | | | | | | [address] | | | | + + + + + + + + | Specimen | + + | | + + + +---------+ + + | Performing | Address | City/State/Zipcode | Phone Number | | Organization | | | | + +---------+ + + | EXTERNAL LAB | | | | + +---------+ + + XR Chest 1 Vw (01/21/2015 5:52 AM PDT) + + | Specimen | + + | | + + + + + | Impressions | Performed At | + + + | 1. Tubes and lines are in expected position. 2. Unchanged | | | consolidation/airspace disease of the right lung base consistent with | | | infection or aspiration. 3. No pneumothorax. Electronically | | | signed by Michael Nixon MD on 01/21/2015 6:33 AM | | + + + + + + | Narrative | Performed At | + + + | JOSE UMA 1950 64 years XR CHEST 1 VIEW 01/21/2015 | | | 5:52 AM INDICATION: Tube and line position. COMPARISON: | | | January 20, 2015 TECHNIQUE: Chest 1 view, AP view of the chest | | | FINDINGS: Right Mediport catheter tip near the cavoatrial junction. | | | Endotracheal tube 4.2 cm above the kavitha. Enteric tube passing below | | | the level of the diaphragm. Right pigtail pleural drain overlying the | | | pleural space in unchanged position. Right basilar consolidation | | | is unchanged from the prior examination consistent with infection or | | | aspiration. No pneumothorax. Possible right pleural effusion. | | | Heart size and mediastinal contours are normal. No acute osseous | | | abnormality. | | + + + + + | Procedure Note | + + | Frederic, Rad Conversion - 11/10/2018 8:48 AM PDT JOSE [id number] yearsXR CHEST | | 1 VIEW01/21/2015 5:52 AM INDICATION: Tube and line position. COMPARISON: January 20, | | 2014 TECHNIQUE: Chest 1 view, AP view of the chest FINDINGS:Right Mediport catheter tip | | near the cavoatrial junction. Endotracheal tube 4.2 cm above the kavitha. Enteric tube | | passing below the level of the diaphragm. Right pigtail pleural drain overlying the | | pleural space in unchanged position. Right basilar consolidation is unchanged from the | | prior examination consistent with infection or aspiration. No pneumothorax. Possible | | right pleural effusion. Heart size and mediastinal contours are normal. No acute osseous | | abnormality. IMPRESSION: 1. Tubes and lines are in expected position.2. Unchanged | | consolidation/airspace disease of the right lung base consistent with infection or | | aspiration.3. No pneumothorax. | | 6:33 AM | |FINDINGS: | |Right Mediport catheter tip near the cavoatrial junction. Endotracheal tube 4.2 cm above th e kavitha. Enteric tube passing below the level of the diaphragm. Right pigtail pleural drain overlying the pleural space in unchanged position. | | | |Right basilar consolidation is unchanged from the prior examination consistent with infecti on or aspiration. | | | |No pneumothorax. Possible right pleural effusion. Heart size and mediastinal contours are n ormal. | | | |No acute osseous abnormality. | | | |IMPRESSION: | | | |1. Tubes and lines are in expected position. | |2. Unchanged consolidation/airspace disease of the right lung base consistent with infectio n or aspiration. | |3. No pneumothorax. | | | | | + + Calcium, Ionized (01/21/2015 4:27 AM PDT) + + + + + + | Component | Value | Ref Range | Performed | Pathologist | | | | | At | Signature | + + + + + + | Calcium | 1.08Comment: Testing | 1.08 - 1.25 | EXTERNAL | | | (Calc) | performed at [facility];[address] | mmol/L | LAB | | | | [address];[place] | | | | | | [address] | | | | + + + + + + | pH, Bld | 7.429Comment: Testing | 7.300 - 7.450 | EXTERNAL | | | | performed at [facility];[address] | | LAB | | | | [address];[place] | | | | | | [address] | | | | + + + [...] + +---------+ + + External Lab: CBC (01/21/2015 4:19 AM PDT) + + + + + + | Component | Value | Ref Range | Performed | Pathologist | | | | | At | Signature | + + + + + + | WBC | 15.31 (H)Comment: | 3.80 - 11.00 | EXTERNAL | | | | Testing performed at | K/uL | LAB | | | | [facility] [address] | | | | | [address];[place] [address] | | | | + + + + + + | RED CELL | 2.54 (L)Comment: Testing | 4.20 - 5.70 | EXTERNAL | | | COUNT | performed at [facility];[address] | M/uL | LAB | | | | [address];[place] | | | | | | [address] | | | | + + + + + + | Hgb | 8.3 (L)Comment: Testing | 13.2 - 17.0 | EXTERNAL | | | | performed at [facility];[address] | g/dL | LAB | | | | [address];[place] | | | | | | [address] | | | | + + + + + + | Hematocrit, | 24.5 (L)Comment: Testing | 39.0 - 50.0 % | EXTERNAL | | | POC | performed at [facility];[address] | | LAB | | | | [address];[place] | | | | | | [address] | | | | + + + + + + | MCV | 96.5Comment: Testing | 80.0 - 100.0 fl | EXTERNAL | | | | performed at [facility];[address] | | LAB | | | | [address];[place] | | | | | | [id number] | | | | + + + + + + | MCH | 32.6Comment: Testing | 27.0 - 34.0 pg | EXTERNAL | | | | performed at [facility];[address] | | LAB | | | | [address];[place] | | | | | | [id number] | | | | + + + + + + | MCHC | 33.8Comment: Testing | 32.0 - 35.5 | EXTERNAL | | | | performed at [facility];888 | g/dL | LAB | | | | [address];[place] | | | | | | [id number] | | | | + + + + + + | RDW-CV | 44.2Comment: Testing | 37 - 53 fl | EXTERNAL | | | | performed at [facility];[address] | | LAB | | | | [address];[place] | | | | | | [address] | | | | + + + + + + | Platelet | 254Comment: Testing | 150 - 400 K/uL | EXTERNAL | | | Count | performed at [facility];[address] | | LAB | | | Plasma | [address];[place] | | | | | | [phone] | | | | + + + + + + | MPV | 9.4Comment: Testing | fl | EXTERNAL | | | | performed at [facility];[address] | | LAB | | | | [address];[place] | | | | | | [address] | | | | + + + + + + | Differentia | AUTOMATEDComment: | | EXTERNAL | | | l Type | Testing performed at | | LAB | | | | [facility];[address] | | [address];[place] [address] | | | | + + + + + + | % Segmented | 89.54Comment: Testing | % | EXTERNAL | | | | performed at [facility];[address] | | LAB | | | Neutrophils | [address];[place] | | | | | | [address] | | | | + + + + + + | % | 2.26Comment: Testing | % | EXTERNAL | | | Lymphocytes | performed at [facility];[address] | | LAB | | | | [address];[place] | | | | | | [address] | | | | + + + + + + | % Monocytes | 6.77Comment: Testing | % | EXTERNAL | | | | performed at [facility];[address] | | LAB | | | | [address];[place] | | | | | | [address] | | | | + + + + + + | % | 1.18Comment: Testing | % | EXTERNAL | | | Eosinophils | performed at [facility];[address] | | LAB | | | | [address];[place] | | | | | | [address] | | | | + + + + + + | % Basophils | 0.25Comment: Testing | % | EXTERNAL | | | | performed at [facility];[address] | | LAB | | | | [address];[place] | | | | | | [address] | | | | + + + + + + | Absolute | 13.70 (H)Comment: | 1.90 - 7.40 | EXTERNAL | | | Segmented | Testing performed at | K/uL | LAB | | | Neutrophils | [facility];[address] | [address];[place] [address] | | | | + + + + + + | Absolute | 0.35 (L)Comment: Testing | 1.00 - 3.90 | EXTERNAL | | | Lymphocytes | performed at [facility];[address] | K/uL | LAB | | | | [address];[place] | | | | | | [address] | | | | + + + + + + | Absolute | 1.04 (H)Comment: Testing | 0.00 - 0.80 | EXTERNAL | | | Monocytes | performed at [facility];[address] | K/uL | LAB | | | | [address];[place] | | | | | | [address] | | | | + + + + + + | Absolute | 0.18Comment: Testing | 0.00 - 0.50 | EXTERNAL | | | Eosinophils | performed at [facility];[address] | K/uL | LAB | | | | [address];[place] | | | | | | [address] | | | | + + + + + + | Absolute | 0.04Comment: Testing | 0.00 - 0.10 | EXTERNAL | | | Basophils | performed at [facility];[address] | K/uL | LAB | | | | [address];[place] | | | | | | [address] | | | | + + + + + + | RBC | RBC AND PLT MORPHOLOGY | | EXTERNAL | | | Morphology | APPEAR NORMALComment: | | LAB | | | | Testing performed at | | | | | | [facility];[address];[place] [address] | | | | + + + + + + | Platelet | ADEQUATEComment: Testing | | EXTERNAL | | | Estimate | performed at [facility];[address] | | LAB | | | | [address];[place] | | | | | | [address] | | | | + + + + + + | Differentia | SLIDE SCANNED, AGREES | | EXTERNAL | | | l Comments | WITH AUTOMATED | | LAB | | | | RESULTS.Comment: Testing | | | | | | performed at [facility];[address] | | | | | | [address];[place] | | | | | | [address] | | | | + + + + + + + + | Specimen | + + | Blood specimen | | (specimen) | + + + +---------+ + + | Performing | Address | City/State/Zipcode | Phone Number | | Organization | | | | + +---------+ + + | EXTERNAL LAB | | | | + +---------+ + + Triglycerides (01/21/2015 4:19 AM PDT) + + + + + + | Component | Value | Ref Range | Performed | Pathologist | | | | | At | Signature | + + + + + + | Triglycerid | 249 (H)Comment: Testing | mg/dL | EXTERNAL | | | es | performed at [facility] | | LAB | | | | [address];[place], [place] | | | | | | [address] | | | | + + + + + + + + | Specimen | + + | Blood specimen | | (specimen) | + + + +---------+ + + | Performing | Address | City/State/Zipcode | Phone Number | | Organization | | | | + +---------+ + + | EXTERNAL LAB | | | | + +---------+ + + Phosphorus (01/21/2015 4:19 AM PDT) + + + + + + | Component | Value | Ref Range | Performed | Pathologist | | | | | At | Signature | + + + + + + | PHOSPHORUS | 3.5Comment: Testing | 2.3 - 4.8 mg/dL | EXTERNAL | | | | performed at [facility];[address] | | LAB | | | | [address];[place], [place] | | | | | | [address] | | | | + + + + + + + + | Specimen | + + | Blood specimen | | (specimen) | + + + +---------+ + + | Performing | Address | City/State/Zipcode | Phone Number | | Organization | | | | + +---------+ + + | EXTERNAL LAB | | | | + +---------+ + + Magnesium (01/21/2015 4:19 AM PDT) + + + + + + | Component | Value | Ref Range | Performed | Pathologist | | | | | At | Signature | + + + + + + | Magnesium | 2.3Comment: Testing | 1.7 - 2.4 mg/dL | EXTERNAL | | | | performed at [facility];[address] | | LAB | | | | [address];[place], [place] | | | | | | [address] | | | | + + + + + + + + | Specimen | + + | Blood specimen | | (specimen) | + + + +---------+ + + | Performing | Address | City/State/Zipcode | Phone Number | | Organization | | | | + +---------+ + + | EXTERNAL LAB | | | | + +---------+ + + Digoxin Level (01/21/2015 4:19 AM PDT) + + + + + + | Component | Value | Ref Range | Performed | Pathologist | | | | | At | Signature | + + + + + + | Date of | UNKNOWNComment: Testing | | EXTERNAL | | | Last Dose | performed at [facility];[address] | | LAB | | | | [address];[place] | | | | | | [address] | | | | + + + + + + | Time of | UNKNOWNComment: Testing | | EXTERNAL | | | Last Dose | performed at [facility];[address] | | LAB | | | | [address];[place] | | | | | | [address] | | | | + + + + + + | Digoxin | 1.9Comment: Testing | 0.90 - 2.00 | EXTERNAL | | | level | performed at [facility];888 | ng/mL | LAB | | | | [address];[place] | | | | | | [address] | | | | + + + [...] + +---------+ + + Basic Metabolic Panel (01/21/2015 4:19 AM PDT) + + + + + + | Component | Value | Ref Range | Performed | Pathologist | | | | | At | Signature | + + + + + + | Na | 136Comment: Testing | 135 - 143 | EXTERNAL | | | | performed at [facility];[address] | mmol/L | LAB | | | | [address];[place] | | | | | | [address] | | | | + + + + + + | K | 4.3Comment: Testing | 3.5 - 4.9 | EXTERNAL | | | | performed at [facility];[address] | mmol/L | LAB | | | | [address];[place] | | | | | | [address] | | | | + + + + + + | Cl | 106Comment: Testing | 99 - 109 mmol/L | EXTERNAL | | | | performed at [facility];[address] | | LAB | | | | [address];[place] | | | | | | [address] | | | | + + + + + + | CO2 | 23Comment: Testing | 23 - 32 mmol/L | EXTERNAL | | | | performed at [facility];[address] | | LAB | | | | [address];[place] | | | | | | [address] | | | | + + + + + + | Anion Gap | 11Comment: Testing | 5 - 20 mmol/L | EXTERNAL | | | | performed at [facility];[address] | | LAB | | | | [address];[place] | | | | | | [address] | | | | + + + + + + | Glucose, | 140 (H)Comment: Testing | 65 - 99 mg/dL | EXTERNAL | | | Fasting | performed at [facility];[address] | | LAB | | | | [address];[place] | | | | | | [address] | | | | + + + + + + | BUN | 27 (H)Comment: Testing | 8 - 25 mg/dL | EXTERNAL | | | | performed at [facility];[address] | | LAB | | | | [address];[place] | | | | | | [address] | | | | + + + + + + | Creatinine | 0.65 (L)Comment: Testing | 0.70 - 1.30 | EXTERNAL | | | | performed at [facility];[address] | mg/dL | LAB | | | | [address];[place] | | | | | | [address] | | | | + + + + + + | BUN/Creatin | 42Comment: Testing | | EXTERNAL | | | ine Ratio | performed at [facility];[address] | | LAB | | | | [address];[place] | | | | | | [address] | | | | + + + + + + | Calcium | 7.4 (L)Comment: Testing | 8.5 - 10.5 | EXTERNAL | | | | performed at [facility];[address] | mg/dL | LAB | | | | [address];[place] | | | | | | [address] | | | | + + + [...] | | | | | | at [facility];[address];[place] [address] | | | | + + + + + + + + | Specimen | + + | Blood specimen | | (specimen) | + + + +---------+ + + | Performing | Address | City/State/Zipcode | Phone Number | | Organization | | | | + +---------+ + + | EXTERNAL LAB | | | | + +---------+ + + POC Glucose (01/21/2015 1:19 AM PDT) + + + + + + | Component | Value | Ref Range | Performed | Pathologist | | | | | At | Signature | + + + + + + | Glucose, | 161 (H)Comment: Testing | 65 - 99 mg/dL | EXTERNAL | | | Fingerstick | performed at [facility];[address] | | LAB | | | | [address];[place], [place] | | | | | | [address] | | | | + + + + + + + + | Specimen | + + | | + + + +---------+ + + | Performing | Address | City/State/Zipcode | Phone Number | | Organization | | | | + +---------+ + + | EXTERNAL LAB | | | | + +---------+ + + POC Glucose (01/20/2015 6:15 PM PDT) + + + + + + | Component | Value | Ref Range | Performed | Pathologist | | | | | At | Signature | + + + + + + | Glucose, | 128 (H)Comment: Testing | 65 - 99 mg/dL | EXTERNAL | | | Fingerstick | performed at [facility];[address] | | LAB | | | | [address];[place] | | | | | | [address] | | | | + + + + + + + + | Specimen | + + | | + + + +---------+ + + | Performing | Address | City/State/Zipcode | Phone Number | | Organization | | | | + +---------+ + + | EXTERNAL LAB | | | | + +---------+ + + Potassium (01/20/2015 5:25 PM PDT) + + + + + + | Component | Value | Ref Range | Performed | Pathologist | | | | | At | Signature | + + + + + + | K | 4.1Comment: Testing | 3.5 - 4.9 | EXTERNAL | | | | performed at [facility];[address] | mmol/L | LAB | | | | [address];[place], [place] | | | | | | [address] | | | | + + + + + + + + | Specimen | + + | Blood specimen | | (specimen) | + + + +---------+ + + | Performing | Address | City/State/Zipcode | Phone Number | | Organization | | | | + +---------+ + + | EXTERNAL LAB | | | | + +---------+ + + Phosphorus (01/20/2015 5:25 PM PDT) + + + + + + | Component | Value | Ref Range | Performed | Pathologist | | | | | At | Signature | + + + + + + | PHOSPHORUS | 4.2Comment: Testing | 2.3 - 4.8 mg/dL | EXTERNAL | | | | performed at [facility];[address] | | LAB | | | | [address];[place], [place] | | | | | | [address] | | | | + + + + + + + + | Specimen | + + | Blood specimen | | (specimen) | + + + +---------+ + + | Performing | Address | City/State/Zipcode | Phone Number | | Organization | | | | + +---------+ + + | EXTERNAL LAB | | | | + +---------+ + + Magnesium (01/20/2015 5:25 PM PDT) + + + + + + | Component | Value | Ref Range | Performed | Pathologist | | | | | At | Signature | + + + + + + | Magnesium | 2.2Comment: Testing | 1.7 - 2.4 mg/dL | EXTERNAL | | | | performed at [facility];[address] | | LAB | | | | [address];[place], [place] | | | | | | [address] | | | | + + + + + + + + | Specimen | + + | Blood specimen | | (specimen) | + + + +---------+ + + | Performing | Address | City/State/Zipcode | Phone Number | | Organization | | | | + +---------+ + + | EXTERNAL LAB | | | | + +---------+ + + Digoxin Level (01/20/2015 5:25 PM PDT) + + + + + + | Component | Value | Ref Range | Performed | Pathologist | | | | | At | Signature | + + + + + + | Date of | UNKNOWNComment: Testing | | EXTERNAL | | | Last Dose | performed at [facility];[address] | | LAB | | | | [address];[place] | | | | | | [address] | | | | + + + + + + | Time of | UNKNOWNComment: Testing | | EXTERNAL | | | Last Dose | performed at [facility];[address] | | LAB | | | | [address];[place] | | | | | | [address] | | | | + + + + + + | Digoxin | 1.4Comment: Testing | 0.90 - 2.00 | EXTERNAL | | | level | performed at [facility], [address] | ng/mL | LAB | | | | [address], | | | | | | [place] [address] | | | | + + + + + + + + | Specimen | + + | Blood specimen | | (specimen) | + + + +---------+ + + | Performing | Address | City/State/Zipcode | Phone Number | | Organization | | | | + +---------+ + + | EXTERNAL LAB | | | | + +---------+ + + POC Glucose (01/20/2015 12:06 PM PDT) + + + + + + | Component | Value | Ref Range | Performed | Pathologist | | | | | At | Signature | + + + + + + | Glucose, | 143 (H)Comment: Testing | 65 - 99 mg/dL | EXTERNAL | | | Fingerstick | performed at [facility];[address] | | LAB | | | | [address];[place], [place] | | | | | | [address] | | | | + + + + + + + + | Specimen | + + | | + + + +---------+ + + | Performing | Address | City/State/Zipcode | Phone Number | | Organization | | | | + +---------+ + + | EXTERNAL LAB | | | | + +---------+ + + POC Glucose (01/20/2015 6:20 AM PDT) + + + + + + | Component | Value | Ref Range | Performed | Pathologist | | | | | At | Signature | + + + + + + | Glucose, | 137 (H)Comment: Testing | 65 - 99 mg/dL | EXTERNAL | | | Fingerstick | performed at [facility];[address] | | LAB | | | | [address];[place] | | | | | | [address] | | | | + + + + + + + + | Specimen | + + | | + + + +---------+ + + | Performing | Address | City/State/Zipcode | Phone Number | | Organization | | | | + +---------+ + + | EXTERNAL LAB | | | | + +---------+ + + Culture, Body Fluid, Sterile, Smear, with Anaerobes (01/20/2015 5:51 AM PDT) + + | Specimen | + + | Body fluid sample | | (specimen) | + + + + + | Narrative | Performed At | + + + | Specimen Description PLEURAL FLUID GRAM STAIN | EXTERNAL LAB | | WBC'S SEEN | | | NO ORGANISMS SEEN | | | Testing performed at [facility];[address];[place] [address] CULTURE | | | NO GROWTH | | | Testing performed at [facility], [address] [place] | | | [address] | | + + + + +---------+ + + | Performing | Address | City/State/Zipcode | Phone Number | | Organization | | | | + +---------+ + + | EXTERNAL LAB | | | | + +---------+ + + External Lab: Protein, Total (01/20/2015 5:51 AM PDT) + + | Specimen | + + | Body fluid sample | | (specimen) | + + + + + | Narrative | Performed At | + + + | FLUID TOTAL PROTEIN <3.0 Testing | EXTERNAL LAB | | performed at [facility], [address], [place] [address] FLUID | | | TP SOURCE PLEURAL FLUID Testing | | | performed at [facility];[address];[place] [address] | | + + + + +---------+ + + | Performing | Address | City/State/Zipcode | Phone Number | | Organization | | | | + +---------+ + + | EXTERNAL LAB | | | | + +---------+ + + Glucose, Body Fluid (01/20/2015 5:51 AM PDT) + + | Specimen | + + | Body fluid sample | | (specimen) | + + + + + | Narrative | Performed At | + + + | FLUID GLUCOSE 96 | EXTERNAL LAB | | Testing performed at [facility], [address], [place], [place] | | | [address] Glucose, Fluid Type PLEURAL FLUID | | | Testing performed at [facility];[address];[place] [address] | | + + + + +---------+ + + | Performing | Address | City/State/Zipcode | Phone Number | | Organization | | | | + +---------+ + + | EXTERNAL LAB | | | | + +---------+ + + PH, Body Fluid (01/20/2015 5:51 AM PDT) + + | Specimen | + + | Body fluid sample | | (specimen) | + + + + + | Narrative | Performed At | + + + | FLUID PH 7.78 | EXTERNAL LAB | | Testing performed at [facility];[address] [place] [address];[place] [address] | | + + + + +---------+ + + | Performing | Address | City/State/Zipcode | Phone Number | | Organization | | | | + +---------+ + + | EXTERNAL LAB | | | | + +---------+ + + External Lab: CBC (01/20/2015 4:27 AM PDT) + + + + + + | Component | Value | Ref Range | Performed | Pathologist | | | | | At | Signature | + + + + + + | WBC | 11.70 (H)Comment: | 3.80 - 11.00 | EXTERNAL | | | | Testing performed at | K/uL | LAB | | | | [address];[place] [address] | | | | + + + + + + | RED CELL | 2.50 (L)Comment: Testing | 4.20 - 5.70 | EXTERNAL | | | COUNT | performed at [facility];[address] | M/uL | LAB | | | | [address];[place] | | | | | | [address] | | | | + + + + + + | Hgb | 8.3 (L)Comment: Testing | 13.2 - 17.0 | EXTERNAL | | | | performed at [facility];[address] | g/dL | LAB | | | | [address];[place] | | | | | | [address] | | | | + + + + + + | Hematocrit, | 24.1 (L)Comment: Testing | 39.0 - 50.0 % | EXTERNAL | | | POC | performed at [facility];[address] | | LAB | | | | [address];[place] | | | | | | [address] | | | | + + + + + + | MCV | 96.5Comment: Testing | 80.0 - 100.0 fl | EXTERNAL | | | | performed at [facility];[address] | | LAB | | | | [address];[place] | | | | | | [address] | | | | + + + + + + | MCH | 33.3Comment: Testing | 27.0 - 34.0 pg | EXTERNAL | | | | performed at [facility];[address] | | LAB | | | | [address];[place] | | | | | | [address] | | | | + + + + + + | MCHC | 34.5Comment: Testing | 32.0 - 35.5 | EXTERNAL | | | | performed at [facility];[address] | g/dL | LAB | | | | [address];[place] | | | | | | [address] | | | | + + + + + + | RDW-CV | 42.9Comment: Testing | 37 - 53 fl | EXTERNAL | | | | performed at [facility];[address] | | LAB | | | | [address];[place] | | | | | | [address] | | | | + + + + + + | Platelet | 185Comment: Testing | 150 - 400 K/uL | EXTERNAL | | | Count | performed at [facility];[address] | | LAB | | | Plasma | [address];[place] | | | | | | [address] | | | | + + + + + + | MPV | 9.7Comment: Testing | fl | EXTERNAL | | | | performed at [facility];[address] | | LAB | | | | [address];[place] | | | | | | [address] | | | | + + + + + + | Differentia | AUTOMATEDComment: | | EXTERNAL | | | l Type | Testing performed at | | LAB | | | | [facility];[address];[place] [address] | | | | + + + + + + | % Segmented | 90.04Comment: Testing | % | EXTERNAL | | | | performed at [facility];[address] | | LAB | | | Neutrophils | [address];[place] | | | | | | [address] | | | | + + + + + + | % | 2.67Comment: Testing | % | EXTERNAL | | | Lymphocytes | performed at [facility];[address] | | LAB | | | | [address];[place] | | | | | | [address] | | | | + + + + + + | % Monocytes | 4.91Comment: Testing | % | EXTERNAL | | | | performed at [facility];[address] | | LAB | | | | [address];[place] | | | | | | [address] | | | | + + + + + + | % | 2.15Comment: Testing | % | EXTERNAL | | | Eosinophils | performed at [facility];[address] | | LAB | | | | [address];[place] | | | | | | [address] | | | | + + + + + + | % Basophils | 0.23Comment: Testing | % | EXTERNAL | | | | performed at [facility];[address] | | LAB | | | | [address];[place] | | | | | | [address] | | | | + + + + + + | Absolute | 10.54 (H)Comment: | 1.90 - 7.40 | EXTERNAL | | | Segmented | Testing performed at | K/uL | LAB | | | Neutrophils | [facility];[address];[place] [address] | | | | + + + + + + | Absolute | 0.31 (L)Comment: Testing | 1.00 - 3.90 | EXTERNAL | | | Lymphocytes | performed at [facility];[address] | K/uL | LAB | | | | [address];[place] | | | | | | [address] | | | | + + + + + + | Absolute | 0.57Comment: Testing | 0.00 - 0.80 | EXTERNAL | | | Monocytes | performed at [facility];[address] | K/uL | LAB | | | | [address];[place] | | | | | | [address] | | | | + + + + + + | Absolute | 0.25Comment: Testing | 0.00 - 0.50 | EXTERNAL | | | Eosinophils | performed at [facility];[address] | K/uL | LAB | | | | [address];[place] | | | | | | [address] | | | | + + + + + + | Absolute | 0.03Comment: Testing | 0.00 - 0.10 | EXTERNAL | | | Basophils | performed at [facility];[address] | K/uL | LAB | | | | [address];[place] | | | | | | [address] | | | | + + + + + + | RBC | RBC AND PLT MORPHOLOGY | | EXTERNAL | | | Morphology | APPEAR NORMALComment: | | LAB | | | | Testing performed at | | | | | | [facility];[address];[place] [address] | | | | + + + + + + | Platelet | ADEQUATEComment: Testing | | EXTERNAL | | | Estimate | performed at [facility];[address] | | LAB | | | | [address];[place] | | | | | | [address] | | | | + + + + + + | Differentia | SLIDE SCANNED, AGREES | | EXTERNAL | | | l Comments | WITH AUTOMATED | | LAB | | | | RESULTS.Comment: Testing | | | | | | performed at [facility];[address] | | | | | | [address];[place] | | | | | | [address] | | | | + + + + + + + + | Specimen | + + | Blood specimen | | (specimen) | + + + +---------+ + + | Performing | Address | City/State/Zipcode | Phone Number | | Organization | | | | + +---------+ + + | EXTERNAL LAB | | | | + +---------+ + + Phosphorus (01/20/2015 4:27 AM PDT) + + + + + + | Component | Value | Ref Range | Performed | Pathologist | | | | | At | Signature | + + + + + + | PHOSPHORUS | 3.7Comment: Testing | 2.3 - 4.8 mg/dL | EXTERNAL | | | | performed at [facility];[address] | | LAB | | | | [address];[place], [place] | | | | | | [address] | | | | + + + + + + + + | Specimen | + + | Blood specimen | | (specimen) | + + + +---------+ + + | Performing | Address | City/State/Zipcode | Phone Number | | Organization | | | | + +---------+ + + | EXTERNAL LAB | | | | + +---------+ + + Magnesium (01/20/2015 4:27 AM PDT) + + + + + + | Component | Value | Ref Range | Performed | Pathologist | | | | | At | Signature | + + + + + + | Magnesium | 2.2Comment: Testing | 1.7 - 2.4 mg/dL | EXTERNAL | | | | performed at [facility];[address] | | LAB | | | | [address];[place] | | | | | | [address] | | | | + + + + + + + + | Specimen | + + | Blood specimen | | (specimen) | + + + +---------+ + + | Performing | Address | City/State/Zipcode | Phone Number | | Organization | | | | + +---------+ + + | EXTERNAL LAB | | | | + +---------+ + + Lactate Dehydrogenase (01/20/2015 4:27 AM PDT) + + + + + + | Component | Value | Ref Range | Performed | Pathologist | | | | | At | Signature | + + + + + + | LDH TOTAL | 167Comment: Testing | 115 - 225 U/L | EXTERNAL | | | | performed at [facility];[address] | | LAB | | | | [address];[place], [place] | | | | | | [id number] | | | | + + + + + + + + | Specimen | + + | | + + + +---------+ + + | Performing | Address | City/State/Zipcode | Phone Number | | Organization | | | | + +---------+ + + | EXTERNAL LAB | | | | + +---------+ + + Hepatic Function Panel (01/20/2015 4:27 AM PDT) + + + + + + | Component | Value | Ref Range | Performed | Pathologist | | | | | At | Signature | + + + + + + | Protein, | 5.7 (L)Comment: Testing | 6.3 - 8.2 g/dL | EXTERNAL | | | Total | performed at [facility];[address] | | LAB | | | | [address];[place] | | | | | | [id number] | | | | + + + + + + | Albumin | 1.2 (L)Comment: Testing | 3.3 - 4.8 g/dL | EXTERNAL | | | | performed at [facility];[address] | | LAB | | | | [address];[place] | | | | | | [id number] | | | | + + + + + + | Bilirubin | 3.0 (H)Comment: Testing | 0.1 - 1.5 mg/dL | EXTERNAL | | | Total | performed at [facility];[address] | | LAB | | | | [address];[place] | | | | | | [id number] | | | | + + + + + + | Bilirubin | 2.5 (H)Comment: Testing | 0.0 - 0.3 mg/dL | EXTERNAL | | | Direct | performed at [facility];[address] | | LAB | | | | [address];[place] | | | | | | [phone] | | | | + + + + + + | ALP, | 88Comment: Testing | 35 - 115 U/L | EXTERNAL | | | External | performed at [facility];[address] | | LAB | | | | [address];[place] | | | | | | [id number] | | | | + + + + + + | AST | 28Comment: Testing | 10 - 45 U/L | EXTERNAL | | | | performed at [facility];[address] | | LAB | | | | [address];[place] | | | | | | [address] | | | | + + + + + + | ALT | 82 (H)Comment: Testing | 10 - 65 U/L | EXTERNAL | | | | performed at [facility];[address] | | LAB | | | | [address];[place] | | | | | | [id number] | | | | + + + + + + + + | Specimen | + + | | + + + +---------+ + + | Performing | Address | City/State/Zipcode | Phone Number | | Organization | | | | + +---------+ + + | EXTERNAL LAB | | | | + +---------+ + + Basic Metabolic Panel (01/20/2015 4:27 AM PDT) + + + + + + | Component | Value | Ref Range | Performed | Pathologist | | | | | At | Signature | + + + + + + | Na | 136Comment: Testing | 135 - 143 | EXTERNAL | | | | performed at [facility];888 | mmol/L | LAB | | | | [address];[place] | | | | | | [address] | | | | + + + + + + | K | 4.1Comment: Testing | 3.5 - 4.9 | EXTERNAL | | | | performed at [facility];888 | mmol/L | LAB | | | | [address];[place] | | | | | | [address] | | | | + + + + + + | Cl | 106Comment: Testing | 99 - 109 mmol/L | EXTERNAL | | | | performed at [facility];[address] | | LAB | | | | [address];[place] | | | | | | [address] | | | | + + + + + + | CO2 | 22 (L)Comment: Testing | 23 - 32 mmol/L | EXTERNAL | | | | performed at [facility];[address] | | LAB | | | | [address];[place] | | | | | | [address] | | | | + + + + + + | Anion Gap | 12Comment: Testing | 5 - 20 mmol/L | EXTERNAL | | | | performed at [facility];[address] | | LAB | | | | [address];[place] | | | | | | [address] | | | | + + + + + + | Glucose, | 119 (H)Comment: Testing | 65 - 99 mg/dL | EXTERNAL | | | Fasting | performed at [facility];[address] | | LAB | | | | [address];[place] | | | | | | [address] | | | | + + + + + + | BUN | 27 (H)Comment: Testing | 8 - 25 mg/dL | EXTERNAL | | | | performed at [facility];[address] | | LAB | | | | [address];[place] | | | | | | [address] | | | | + + + + + + | Creatinine | 0.70Comment: Testing | 0.70 - 1.30 | EXTERNAL | | | | performed at [facility];888 | mg/dL | LAB | | | | [address];[place] | | | | | | [address] | | | | + + + + + + | BUN/Creatin | 38Comment: Testing | | EXTERNAL | | | ine Ratio | performed at [facility];[address] | | LAB | | | | [address];[place] | | | | | | [address] | | | | + + + + + + | Calcium | 7.1 (L)Comment: Testing | 8.5 - 10.5 | EXTERNAL | | | | performed at [facility];888 | mg/dL | LAB | | | | [address];[place] | | | | | | [address] | | | | + + + [...] | | | | | | at [facility];[address];[place] [phone] | | | | + + + + + + + + | Specimen | + + | Blood specimen | | (specimen) | + + + +---------+ + + | Performing | Address | City/State/Zipcode | Phone Number | | Organization | | | | + +---------+ + + | EXTERNAL LAB | | | | + +---------+ + + Lactic Acid (01/20/2015 4:15 AM PDT) + + + + + + | Component | Value | Ref Range | Performed | Pathologist | | | | | At | Signature | + + + + + + | Lactate | 1.1Comment: Testing | 0.4 - 2.0 | EXTERNAL | | | | performed at [facility];888 | mmol/L | LAB | | | | [address];[place], [place] | | | | | | [address] | | | | + + + + + + + + | Specimen | + + | Blood specimen | | (specimen) | + + + +---------+ + + | Performing | Address | City/State/Zipcode | Phone Number | | Organization | | | | + +---------+ + + | EXTERNAL LAB | | | | + +---------+ + + XR Chest 1 Vw (01/20/2015 4:05 AM PDT) + + | Specimen | + + | | + + + + + | Impressions | Performed At | + + + | 1. Pigtail catheter seen in the right pleural space. There is a | | | possible kink at the chest wall. 2. Mildly improved opacity in the | | | right hemithorax. 3. Right IJ catheter removed. Other tubes and lines | | | appear stable. RADIA Electronically signed by Joselin Wong MD on Jan 20 2015 4:36AM Referring Provider Line: [phone] | | | ID: [id number] | | + + + + + + | Narrative | Performed At | + + + | EXAM: CHEST RADIOGRAPHY EXAM DATE: 01/20/2015 04:06 AM. | | | CLINICAL HISTORY: Chest tube placement. COMPARISON: 01/19/2015. | | | TECHNIQUE: 1 view. FINDINGS: Lungs/Pleura: Opacity in the right | | | hemithorax is mildly improved. Left chest is approximately unchanged | | | allowing for motion artifact. Pleural effusions are suspected, right | | | greater than left. No obvious pneumothorax. Mediastinum: Possible | | | cardiomegaly. Other: Pigtail catheter in the right pleural space. | | | There is a possible kink at the chest wall. Right internal jugular | | | catheter has been removed. Other tubes and lines appear stable. | | + + + + + | Procedure Note | + + | Frederic Billy Conversion - 11/10/2018 8:48 AM PDT EXAM:CHEST RADIOGRAPHY EXAM DATE: | | 01/20/2015 04:06 AM. CLINICAL HISTORY: Chest tube placement. COMPARISON: 01/19/2015. | | TECHNIQUE: 1 view. FINDINGS:Lungs/Pleura: Opacity in the right hemithorax is mildly | | improved. Left chest is approximately unchanged allowing for motion artifact. Pleural | | effusions are suspected, right greater than left. No obvious pneumothorax. Mediastinum: | | Possible cardiomegaly. Other: Pigtail catheter in the right pleural space. There is a | | possible kink at the chest wall. Right internal jugular catheter has been removed. Other | | tubes and lines appear stable. IMPRESSION: 1. Pigtail catheter seen in the right | | pleural space. There is a possible kink at the chest wall.2. Mildly improved opacity in | | the right hemithorax.3. Right IJ catheter removed. Other tubes and lines appear stable. | | RADIA Electronically signed by Bjorn Bustillos MD on Jan 20 2015 4:36AM Referring | | Provider Line: [phone] ID: [id number] | |Lungs/Pleura: Opacity in the right hemithorax is mildly improved. Left chest is approximate ly unchanged allowing for motion artifact. Pleural effusions are suspected, right greater th an left. No obvious pneumothorax. | | | |Mediastinum: Possible cardiomegaly. | | | |Other: Pigtail catheter in the right pleural space. There is a possible kink at the chest w all. Right internal jugular catheter has been removed. Other tubes and lines appear stable. | | | |IMPRESSION: | | | |1. Pigtail catheter seen in the right pleural space. There is a possible kink at the chest wall. | |2. Mildly improved opacity in the right hemithorax. | |3. Right IJ catheter removed. Other tubes and lines appear stable. | | | |RADIA | | | | Electronically signed by Bjorn Bustillos MD on Jan 20 2015 4:36AM Referring Provider Line: [phone] ID: [id number] | + + POC Glucose (01/20/2015 12:38 AM PDT) + + + + + + | Component | Value | Ref Range | Performed | Pathologist | | | | | At | Signature | + + + + + + | Glucose, | 130 (H)Comment: Testing | 65 - 99 mg/dL | EXTERNAL | | | Fingerstick | performed at [facility];8 | | LAB | | | | [address];[place], [place] | | | | | | [address] | | | | + + + + + + + + | Specimen | + + | | + + + +---------+ + + | Performing | Address | City/State/Zipcode | Phone Number | | Organization | | | | + +---------+ + + | EXTERNAL LAB | | | | + +---------+ + + POC Glucose (01/19/2015 5:26 PM PDT) + + + + + + | Component | Value | Ref Range | Performed | Pathologist | | | | | At | Signature | + + + + + + | Glucose, | 149 (H)Comment: Testing | 65 - 99 mg/dL | EXTERNAL | | | Fingerstick | performed at [facility];[address] | | LAB | | | | [address];[place] | | | | | | [address] | | | | + + + + + + + + | Specimen | + + | | + + + +---------+ + + | Performing | Address | City/State/Zipcode | Phone Number | | Organization | | | | + +---------+ + + | EXTERNAL LAB | | | | + +---------+ + + POC Glucose (01/19/2015 11:46 AM PDT) + + + + + + | Component | Value | Ref Range | Performed | Pathologist | | | | | At | Signature | + + + + + + | Glucose, | 146 (H)Comment: Testing | 65 - 99 mg/dL | EXTERNAL | | | Fingerstick | performed at [facility];[address] | | LAB | | | | [address];[place] | | | | | | [address] | | | | + + + + + + + + | Specimen | + + | | + + + +---------+ + + | Performing | Address | City/State/Zipcode | Phone Number | | Organization | | | | + +---------+ + + | EXTERNAL LAB | | | | + +---------+ + + CT Chest wo Contrast (01/19/2015 9:56 AM PDT) + + | Specimen | + + | | + + + + + | Impressions | Performed At | + + + | 1. Worsening dense infiltrative changes throughout most of the | | | right lung, with increasing small to moderate right pleural effusion | | | and persistent minimal left effusion. 2. Minimal left basilar | | | atelectasis or infiltrate, subtly increased. 3. No adenopathy. 4. | | | Stable tubes and lines. | | + + + + + + | Narrative | Performed At | + + + | HISTORY: Pneumonia. Rectal carcinoma. Mucous plugging. | | | COMPARISON: 01/12/15. TECHNIQUE: 5-mm axial CT images were | | | acquired through the chest. Oral Contrast: None IV contrast: None. | | | FINDINGS: There is marked worsening of the dense airspace | | | infiltrative change in the posterior aspect of the right upper lobe, | | | throughout the right middle lobe, and throughout most of the right | | | lower lobe. There is an increasing small to moderate right pleural | | | effusion, with persistent minimal left pleural effusion. Minimal | | | atelectasis or infiltrate in the posterior left lung base. Left lung | | | is otherwise clear. Respiratory motion limits evaluation. Heart | | | size is normal, with right IJ central line and right IJ Mediport. | | | Moderate coronary arterial calcification. NG tube in the stomach. | | | Scans through the upper abdomen grossly unremarkable. Bone windows | | | show mild to moderate spondylotic changes of the spine. | | + + + + + | Procedure Note | + + | Frederic, Rad Conversion - 11/10/2018 8:48 AM PDT HISTORY:Pneumonia. Rectal carcinoma. | | Mucous plugging. COMPARISON:01/12/15. TECHNIQUE:5-mm axial CT images were acquired | | through the chest.Oral Contrast: NoneIV contrast: None. FINDINGS:There is marked | | worsening of the dense airspace infiltrative change in the posterior aspect of the right | | upper lobe, throughout the right middle lobe, and throughout most of the right lower | | lobe. There is an increasing small to moderate right pleural effusion, with persistent | | minimal left pleural effusion. Minimal atelectasis or infiltrate in the posterior left | | lung base. Left lung is otherwise clear. Respiratory motion limits evaluation. Heart | | size is normal, with right IJ central line and right IJ Mediport. Moderate coronary | | arterial calcification. NG tube in the stomach. Scans through the upper abdomen grossly | | unremarkable. Bone windows show mild to moderate spondylotic changes of the spine. | | IMPRESSION: 1. Worsening dense infiltrative changes throughout most of the right lung, | | with increasing small to moderate right pleural effusion and persistent minimal left | | effusion.2. Minimal left basilar atelectasis or infiltrate, subtly increased.3. No | | adenopathy.4. Stable tubes and lines. Electronically signed by Harry Naidu MD on | | 01/19/2015 10:19 AM | |moderate spondylotic changes of the | |spine. | | | |IMPRESSION: | |1. Worsening dense infiltrative changes throughout most of the right lung, with increasing small to moderate right pleural effusion and persistent minimal left effusion. | |2. Minimal left basilar atelectasis or infiltrate, subtly increased. | |3. No adenopathy. | |4. Stable tubes and lines. | | | | | + + XR Chest 1 Vw (01/19/2015 6:01 AM PDT) + + | Specimen | + + | | + + + + + | Impressions | Performed At | + + + | 1. Stable appearance of the chest. | | + + + + + + | Narrative | Performed At | + + + | HISTORY: Evaluate tubes and lines. Infiltrate. COMPARISON: | | | 01/17/15. TECHNIQUE: AP portable film of the chest at 0457 hours | | | FINDINGS: The dense infiltrate throughout the right lung has | | | minimally decreased in density, but is otherwise unchanged. There is | | | persistent left basilar predominantly strandy change, probably | | | reflecting atelectasis. Subtle infiltrate not excluded, unchanged. | | | Heart size remains normal. ET tube, NG tube, right IJ central line, | | | right IJ Mediport unchanged. | | + + + + + | Procedure Note | + + | Billy De La Garza Conversion - 11/10/2018 8:48 AM PDT HISTORY:Evaluate tubes and lines. | | Infiltrate. COMPARISON:01/17/15. TECHNIQUE:AP portable film of the chest at 0457 hours | | FINDINGS:The dense infiltrate throughout the right lung has minimally decreased in | | density, but is otherwise unchanged. There is persistent left basilar predominantly | | strandy change, probably reflecting atelectasis. Subtle infiltrate not excluded, | | unchanged. Heart size remains normal. ET tube, NG tube, right IJ central line, right IJ | | Mediport unchanged. IMPRESSION: 1. Stable appearance of the chest. Electronically | | signed by Harry Naidu MD on 01/19/2015 7:43 AM | | | |FINDINGS: | |The dense infiltrate throughout the right lung has minimally decreased in density, but is o therwise unchanged. There is persistent left basilar predominantly strandy change, probably reflecting atelectasis. Subtle infiltrate not excluded, unchanged. | |Heart size remains normal. ET tube, NG tube, right IJ central line, right IJ Mediport uncha nged. | | | |IMPRESSION: | |1. Stable appearance of the chest. | | | | | + + POC Glucose (01/19/2015 5:37 AM PDT) + + + + + + | Component | Value | Ref Range | Performed | Pathologist | | | | | At | Signature | + + + + + + | Glucose, | 139 (H)Comment: Testing | 65 - 99 mg/dL | EXTERNAL | | | Fingerstick | performed at [facility];88 | | LAB | | | | [address];[place] | | | | | | [address] | | | | + + + + + + + + | Specimen | + + | | + + + +---------+ + + | Performing | Address | City/State/Zipcode | Phone Number | | Organization | | | | + +---------+ + + | EXTERNAL LAB | | | | + +---------+ + + External Lab: CBC (01/19/2015 5:35 AM PDT) + + + + + + | Component | Value | Ref Range | Performed | Pathologist | | | | | At | Signature | + + + + + + | WBC | 11.53 (H)Comment: | 3.80 - 11.00 | EXTERNAL | | | | Testing performed at | K/uL | LAB | | | | [facility];[address];[place] [address] | | | | + + + + + + | RED CELL | 2.48 (L)Comment: Testing | 4.20 - 5.70 | EXTERNAL | | | COUNT | performed at [facility];[address] | M/uL | LAB | | | | [address];[place] | | | | | | [address] | | | | + + + + + + | Hgb | 8.4 (L)Comment: Testing | 13.2 - 17.0 | EXTERNAL | | | | performed at [facility];888 | g/dL | LAB | | | | [address];[place] | | | | | | [address] | | | | + + + + + + | Hematocrit, | 24.0 (L)Comment: Testing | 39.0 - 50.0 % | EXTERNAL | | | POC | performed at [facility];[address] | | LAB | | | | [address];[place] | | | | | | [address] | | | | + + + + + + | MCV | 96.8Comment: Testing | 80.0 - 100.0 fl | EXTERNAL | | | | performed at [facility];[address] | | LAB | | | | [address];[place] | | | | | | [address] | | | | + + + + + + | MCH | 33.6Comment: Testing | 27.0 - 34.0 pg | EXTERNAL | | | | performed at [facility];[address] | | LAB | | | | [address];[place] | | | | | | [address] | | | | + + + + + + | MCHC | 34.8Comment: Testing | 32.0 - 35.5 | EXTERNAL | | | | performed at [facility];888 | g/dL | LAB | | | | [address];[place] | | | | | | [address] | | | | + + + + + + | RDW-CV | 44.6Comment: Testing | 37 - 53 fl | EXTERNAL | | | | performed at [facility];[address] | | LAB | | | | [address];[place] | | | | | | [address] | | | | + + + + + + | Platelet | 144 (L)Comment: Testing | 150 - 400 K/uL | EXTERNAL | | | Count | performed at [facility];[address] | | LAB | | | Plasma | [address];[place] | | | | | | [address] | | | | + + + + + + | MPV | 9.9Comment: Testing | fl | EXTERNAL | | | | performed at [facility];[address] | | LAB | | | | [address];[place] | | | | | | [address] | | | | + + + + + + | Differentia | MANUALComment: Testing | | EXTERNAL | | | l Type | performed at [facility];[address] | | LAB | | | | [address];[place] | | | | | | [address] | | | | + + + + + + | Segmented | 85Comment: Testing | % | EXTERNAL | | | Neutrophils | performed at [facility];[address] | | LAB | | | Manual | [address];[place] | | | | | | [address] | | | | + + + + + + | % Bands | 2Comment: Testing | % | EXTERNAL | | | | performed at [facility];[address] | | LAB | | | | [address];[place] | | | | | | [address] | | | | + + + + + + | Lymphocytes | 6Comment: Testing | % | EXTERNAL | | | Manual | performed at [facility];[address] | | LAB | | | | [address];[place] | | | | | | [address] | | | | + + + + + + | Monocytes | 6Comment: Testing | % | EXTERNAL | | | Manual | performed at [facility];[address] | | LAB | | | | [address];[place] | | | | | | [address] | | | | + + + + + + | Eosinophils | 1Comment: Testing | % | EXTERNAL | | | Manual | performed at [facility];[address] | | LAB | | | | [address];[place] | | | | | | [address] | | | | + + + + + + | Absolute | 9.80 (H)Comment: Testing | 1.90 - 7.40 | EXTERNAL | | | Neutrophils | performed at [facility];[address] | K/uL | LAB | | | | [address];[place] | | | | | | [address] | | | | + + + + + + | Bands | 0.23 (H)Comment: Testing | 0.00 - 0.20 | EXTERNAL | | | Manual | performed at [facility];[address] | K/uL | LAB | | | | [address];[place] | | | | | | [address] | | | | + + + + + + | Absolute | 0.69 (L)Comment: Testing | 1.00 - 3.90 | EXTERNAL | | | Lymphocytes | performed at [facility];[address] | K/uL | LAB | | | | [address];[place] | | | | | | [address] | | | | + + + + + + | Absolute | 0.69Comment: Testing | 0.00 - 0.80 | EXTERNAL | | | Monocytes | performed at [facility];[address] | K/uL | LAB | | | | [address];[place] | | | | | | [address] | | | | + + + + + + | Absolute | 0.12Comment: Testing | 0.00 - 0.50 | EXTERNAL | | | Eosinophils | performed at [facility];[address] | K/uL | LAB | | | | [address];[place] | | | | | | [address] | | | | + + + + + + | Platelet | DECREASEDComment: | | EXTERNAL | | | Estimate | Testing performed at | | LAB | | | | [facility];[address];[place] [phone] | | | | + + + + + + | RBC | RBC AND PLT MORPHOLOGY | | EXTERNAL | | | Morphology | APPEAR NORMALComment: | | LAB | | | | Testing performed at | | | | | | [facility];[address] [facility] | | | | | | [facility];[place] [address] | | | | + + + + + + + + | Specimen | + + | Blood specimen | | (specimen) | + + + +---------+ + + | Performing | Address | City/State/Zipcode | Phone Number | | Organization | | | | + +---------+ + + | EXTERNAL LAB | | | | + +---------+ + + Triglycerides (01/19/2015 5:35 AM PDT) + + + + + + | Component | Value | Ref Range | Performed | Pathologist | | | | | At | Signature | + + + + + + | Triglycerid | 193 (H)Comment: Testing | mg/dL | EXTERNAL | | | es | performed at [facility] | | LAB | | | | [facility];[place], [place] | | | | | | [address] | | | | + + + + + + + + | Specimen | + + | Blood specimen | | (specimen) | + + + +---------+ + + | Performing | Address | City/State/Zipcode | Phone Number | | Organization | | | | + +---------+ + + | EXTERNAL LAB | | | | + +---------+ + + Phosphorus (01/19/2015 5:35 AM PDT) + + + + + + | Component | Value | Ref Range | Performed | Pathologist | | | | | At | Signature | + + + + + + | PHOSPHORUS | 4.0Comment: Testing | 2.3 - 4.8 mg/dL | EXTERNAL | | | | performed at [facility];[address] | | LAB | | | | [address];[place], [place] | | | | | | [address] | | | | + + + + + + + + | Specimen | + + | Blood specimen | | (specimen) | + + + +---------+ + + | Performing | Address | City/State/Zipcode | Phone Number | | Organization | | | | + +---------+ + + | EXTERNAL LAB | | | | + +---------+ + + Magnesium (01/19/2015 5:35 AM PDT) + + + + + + | Component | Value | Ref Range | Performed | Pathologist | | | | | At | Signature | + + + + + + | Magnesium | 2.2Comment: Testing | 1.7 - 2.4 mg/dL | EXTERNAL | | | | performed at [facility];[address] | | LAB | | | | [address];[place], [place] | | | | | | [address] | | | | + + + + + + + + | Specimen | + + | Blood specimen | | (specimen) | + + + +---------+ + + | Performing | Address | City/State/Zipcode | Phone Number | | Organization | | | | + +---------+ + + | EXTERNAL LAB | | | | + +---------+ + + Lipase (01/19/2015 5:35 AM PDT) + + + + + + | Component | Value | Ref Range | Performed | Pathologist | | | | | At | Signature | + + + + + + | Lipase | 199Comment: Testing | 73 - 393 U/L | EXTERNAL | | | | performed at [facility];[address] | | LAB | | | | [address];[place], [place] | | | | | | [address] | | | | + + + + + + + + | Specimen | + + | Blood specimen | | (specimen) | + + + +---------+ + + | Performing | Address | City/State/Zipcode | Phone Number | | Organization | | | | + +---------+ + + | EXTERNAL LAB | | | | + +---------+ + + Hepatic Function Panel (01/19/2015 5:35 AM PDT) + + + + + + | Component | Value | Ref Range | Performed | Pathologist | | | | | At | Signature | + + + + + + | Protein, | 5.2 (L)Comment: Testing | 6.3 - 8.2 g/dL | EXTERNAL | | | Total | performed at [facility];[address] | | LAB | | | | [address];[place] | | | | | | [address] | | | | + + + + + + | Albumin | 1.1 (L)Comment: Testing | 3.3 - 4.8 g/dL | EXTERNAL | | | | performed at [facility];[address] | | LAB | | | | [address];[place] | | | | | | [address] | | | | + + + + + + | Bilirubin | 3.0 (H)Comment: Testing | 0.1 - 1.5 mg/dL | EXTERNAL | | | Total | performed at [facility];[address] | | LAB | | | | [address];[place] | | | | | | [address] | | | | + + + + + + | Bilirubin | 2.3 (H)Comment: Testing | 0.0 - 0.3 mg/dL | EXTERNAL | | | Direct | performed at [facility];[address] | | LAB | | | | [address];[place] | | | | | | [address] | | | | + + + + + + | ALP, | 90Comment: Testing | 35 - 115 U/L | EXTERNAL | | | External | performed at [facility];[address] | | LAB | | | | [address];[place] | | | | | | [address] | | | | + + + + + + | AST | 26Comment: Testing | 10 - 45 U/L | EXTERNAL | | | | performed at [facility];[address] | | LAB | | | | [address];[place] | | | | | | [address] | | | | + + + + + + | ALT | 113 (H)Comment: Testing | 10 - 65 U/L | EXTERNAL | | | | performed at [facility];[address] | | LAB | | | | [address];[place] | | | | | | [address] | | | | + + + + + + + + | Specimen | + + | | + + + +---------+ + + | Performing | Address | City/State/Zipcode | Phone Number | | Organization | | | | + +---------+ + + | EXTERNAL LAB | | | | + +---------+ + + Basic Metabolic Panel (01/19/2015 5:35 AM PDT) + + + + + + | Component | Value | Ref Range | Performed | Pathologist | | | | | At | Signature | + + + + + + | Na | 137Comment: Testing | 135 - 143 | EXTERNAL | | | | performed at [facility];[address] | mmol/L | LAB | | | | [address];[place] | | | | | | [address] | | | | + + + + + + | K | 4.2Comment: Testing | 3.5 - 4.9 | EXTERNAL | | | | performed at [facility];[address] | mmol/L | LAB | | | | [address];[place] | | | | | | [address] | | | | + + + + + + | Cl | 106Comment: Testing | 99 - 109 mmol/L | EXTERNAL | | | | performed at [facility];[address] | | LAB | | | | [address];[place] | | | | | | [address] | | | | + + + + + + | CO2 | 26Comment: Testing | 23 - 32 mmol/L | EXTERNAL | | | | performed at [facility];[address] | | LAB | | | | [address];[place] | | | | | | [address] | | | | + + + + + + | Anion Gap | 10Comment: Testing | 5 - 20 mmol/L | EXTERNAL | | | | performed at [facility];[address] | | LAB | | | | [address];[place] | | | | | | [address] | | | | + + + + + + | Glucose, | 128 (H)Comment: Testing | 65 - 99 mg/dL | EXTERNAL | | | Fasting | performed at [facility];[address] | | LAB | | | | [address];[place] | | | | | | [address] | | | | + + + + + + | BUN | 23Comment: Testing | 8 - 25 mg/dL | EXTERNAL | | | | performed at [facility];[address] | | LAB | | | | [address];[place] | | | | | | [address] | | | | + + + + + + | Creatinine | 0.67 (L)Comment: Testing | 0.70 - 1.30 | EXTERNAL | | | | performed at [facility];[address] | mg/dL | LAB | | | | [address];[place] | | | | | | [address] | | | | + + + + + + | BUN/Creatin | 35Comment: Testing | | EXTERNAL | | | ine Ratio | performed at [facility];[address] | | LAB | | | | [address];[place] | | | | | | [address] | | | | + + + + + + | Calcium | 7.2 (L)Comment: Testing | 8.5 - 10.5 | EXTERNAL | | | | performed at [facility];888 | mg/dL | LAB | | | | [facility];[place] | | | | | | [address] | | | | + + + [...] | | | | | | at [facility];[address] | | | | | | [address];[place] [address] | | | | + + + + + + + + | Specimen | + + | Blood specimen | | (specimen) | + + + +---------+ + + | Performing | Address | City/State/Zipcode | Phone Number | | Organization | | | | + +---------+ + + | EXTERNAL LAB | | | | + +---------+ + + POC Glucose (01/19/2015 1:31 AM PDT) + + + + + + | Component | Value | Ref Range | Performed | Pathologist | | | | | At | Signature | + + + + + + | Glucose, | 135 (H)Comment: Testing | 65 - 99 mg/dL | EXTERNAL | | | Fingerstick | performed at [facility] | | LAB | | | | [address];[place], [place] | | | | | | [address] | | | | + + + + + + + + | Specimen | + + | | + + + +---------+ + + | Performing | Address | City/State/Zipcode | Phone Number | | Organization | | | | + +---------+ + + | EXTERNAL LAB | | | | + +---------+ + + POC Glucose (01/18/2015 6:08 PM PDT) + + + + + + | Component | Value | Ref Range | Performed | Pathologist | | | | | At | Signature | + + + + + + | Glucose, | 138 (H)Comment: Testing | 65 - 99 mg/dL | EXTERNAL | | | Fingerstick | performed at [facility];[address] | | LAB | | | | [address];[place], [place] | | | | | | [address] | | | | + + + + + + + + | Specimen | + + | | + + + +---------+ + + | Performing | Address | City/State/Zipcode | Phone Number | | Organization | | | | + +---------+ + + | EXTERNAL LAB | | | | + +---------+ + + POC Glucose (01/18/2015 1:07 PM PDT) + + + + + + | Component | Value | Ref Range | Performed | Pathologist | | | | | At | Signature | + + + + + + | Glucose, | 157 (H)Comment: Testing | 65 - 99 mg/dL | EXTERNAL | | | Fingerstick | performed at [facility];[address] | | LAB | | | | [address];[place], [place] | | | | | | [address] | | | | + + + + + + + + | Specimen | + + | | + + + +---------+ + + | Performing | Address | City/State/Zipcode | Phone Number | | Organization | | | | + +---------+ + + | EXTERNAL LAB | | | | + +---------+ + + POC Glucose (01/18/2015 6:45 AM PDT) + + + + + + | Component | Value | Ref Range | Performed | Pathologist | | | | | At | Signature | + + + + + + | Glucose, | 143 (H)Comment: Testing | 65 - 99 mg/dL | EXTERNAL | | | Fingerstick | performed at [facility];[address] | | LAB | | | | [address];[place] | | | | | | [address] | | | | + + + + + + + + | Specimen | + + | | + + + +---------+ + + | Performing | Address | City/State/Zipcode | Phone Number | | Organization | | | | + +---------+ + + | EXTERNAL LAB | | | | + +---------+ + + External Lab: CBC (01/18/2015 5:09 AM PDT) + + + + + + | Component | Value | Ref Range | Performed | Pathologist | | | | | At | Signature | + + + + + + | WBC | 13.63 (H)Comment: | 3.80 - 11.00 | EXTERNAL | | | | Testing performed at | K/uL | LAB | | | | [facility];[address] | | | | | | [address];[place] [address] | | | | + + + + + + | RED CELL | 2.79 (L)Comment: Testing | 4.20 - 5.70 | EXTERNAL | | | COUNT | performed at [facility];[address] | M/uL | LAB | | | | [address];[place] | | | | | | [address] | | | | + + + + + + | Hgb | 9.0 (L)Comment: Testing | 13.2 - 17.0 | EXTERNAL | | | | performed at [facility];888 | g/dL | LAB | | | | [address];[place] | | | | | | [address] | | | | + + + + + + | Hematocrit, | 27.5 (L)Comment: Testing | 39.0 - 50.0 % | EXTERNAL | | | POC | performed at [facility];[address] | | LAB | | | | [address];[place] | | | | | | [address] | | | | + + + + + + | MCV | 98.3Comment: Testing | 80.0 - 100.0 fl | EXTERNAL | | | | performed at [facility];[address] | | LAB | | | | [address];[place] | | | | | | [address] | | | | + + + + + + | MCH | 32.2Comment: Testing | 27.0 - 34.0 pg | EXTERNAL | | | | performed at [facility];[address] | | LAB | | | | [address];[place] | | | | | | [address] | | | | + + + + + + | MCHC | 32.7Comment: Testing | 32.0 - 35.5 | EXTERNAL | | | | performed at [facility];888 | g/dL | LAB | | | | [address];[place] | | | | | | [address] | | | | + + + + + + | RDW-CV | 45.5Comment: Testing | 37 - 53 fl | EXTERNAL | | | | performed at [facility];[address] | | LAB | | | | [address];[place] | | | | | | [address] | | | | + + + + + + | Platelet | 132 (L)Comment: Testing | 150 - 400 K/uL | EXTERNAL | | | Count | performed at [facility];[address] | | LAB | | | Plasma | [address];[place] | | | | | | [address] | | | | + + + + + + | MPV | 9.9Comment: Testing | fl | EXTERNAL | | | | performed at [facility];[address] | | LAB | | | | [address];[place] | | | | | | [address] | | | | + + + + + + | Differentia | MANUALComment: Testing | | EXTERNAL | | | l Type | performed at [facility];[address] | | LAB | | | | [address];[place] | | | | | | [address] | | | | + + + + + + | Nucleated | 1 (H)Comment: Testing | /100WBC | EXTERNAL | | | Red Blood | performed at [facility];[address] | | LAB | | | Cells | [address];[place] | | | | | | [address] | | | | + + + + + + | Segmented | 87Comment: Testing | % | EXTERNAL | | | Neutrophils | performed at [facility];[address] | | LAB | | | Manual | [address];[place] | | | | | | [address] | | | | + + + + + + | % | 3Comment: Testing | % | EXTERNAL | | | Metamyelocy | performed at [facility];[address] | | LAB | | | romaine | [address];[place] | | | | | | [address] | | | | + + + + + + | % | 2Comment: Testing | % | EXTERNAL | | | Myelocytes | performed at [facility];[address] | | LAB | | | | [address];[place] | | | | | | [address] | | | | + + + + + + | Lymphocytes | 4Comment: Testing | % | EXTERNAL | | | Manual | performed at [facility];[address] | | LAB | | | | [address];[place] | | | | | | [address] | | | | + + + + + + | Monocytes | 3Comment: Testing | % | EXTERNAL | | | Manual | performed at [facility];[address] | | LAB | | | | [address];[place] | | | | | | [address] | | | | + + + + + + | Eosinophils | 1Comment: Testing | % | EXTERNAL | | | Manual | performed at [facility];[address] | | LAB | | | | [address];[place] | | | | | | [address] | | | | + + + + + + | Absolute | 11.85 (H)Comment: | 1.90 - 7.40 | EXTERNAL | | | Neutrophils | Testing performed at | K/uL | LAB | | | | [facility];[address];[place] [address] | | | | + + + + + + | Absolute | 0.41 (H)Comment: Testing | K/uL | EXTERNAL | | | Metamyelocy | performed at [facility];[address] | | LAB | | | romaine | [address];[place] | | | | | | [address] | | | | + + + + + + | Absolute | 0.27 (H)Comment: Testing | K/uL | EXTERNAL | | | Myelocytes | performed at [facility];[address] | | LAB | | | | [address];[place] | | | | | | [address] | | | | + + + + + + | Absolute | 0.55 (L)Comment: Testing | 1.00 - 3.90 | EXTERNAL | | | Lymphocytes | performed at [facility];[address] | K/uL | LAB | | | | [address];[place] | | | | | | [address] | | | | + + + + + + | Absolute | 0.41Comment: Testing | 0.00 - 0.80 | EXTERNAL | | | Monocytes | performed at [facility];[address] | K/uL | LAB | | | | [address];[place] | | | | | | [address] | | | | + + + + + + | Absolute | 0.14Comment: Testing | 0.00 - 0.50 | EXTERNAL | | | Eosinophils | performed at [facility];[address] | K/uL | LAB | | | | [address];[place] | | | | | | [address] | | | | + + + + + + | RBC | RBC AND PLT MORPHOLOGY | | EXTERNAL | | | Morphology | APPEAR NORMALComment: | | LAB | | | | Testing performed at | | | | | | [facility];[address] | | | | | | [facility];[place] [address] | | | | + + + + + + + + | Specimen | + + | Blood specimen | | (specimen) | + + + +---------+ + + | Performing | Address | City/State/Zipcode | Phone Number | | Organization | | | | + +---------+ + + | EXTERNAL LAB | | | | + +---------+ + + Triglycerides (01/18/2015 5:09 AM PDT) + + + + + + | Component | Value | Ref Range | Performed | Pathologist | | | | | At | Signature | + + + + + + | Triglycerid | 250 (H)Comment: Testing | mg/dL | EXTERNAL | | | es | performed at [facility], [address] | | LAB | | | | [address], | | | | | | [place] [address] | | | | + + + + + + + + | Specimen | + + | Blood specimen | | (specimen) | + + + +---------+ + + | Performing | Address | City/State/Zipcode | Phone Number | | Organization | | | | + +---------+ + + | EXTERNAL LAB | | | | + +---------+ + + Phosphorus (01/18/2015 5:09 AM PDT) + + + + + + | Component | Value | Ref Range | Performed | Pathologist | | | | | At | Signature | + + + + + + | PHOSPHORUS | 3.6Comment: Testing | 2.3 - 4.8 mg/dL | EXTERNAL | | | | performed at [facility];[address] | | LAB | | | | [facility];[place], [place] | | | | | | [address] | | | | + + + + + + + + | Specimen | + + | Blood specimen | | (specimen) | + + + +---------+ + + | Performing | Address | City/State/Zipcode | Phone Number | | Organization | | | | + +---------+ + + | EXTERNAL LAB | | | | + +---------+ + + Magnesium (01/18/2015 5:09 AM PDT) + + + + + + | Component | Value | Ref Range | Performed | Pathologist | | | | | At | Signature | + + + + + + | Magnesium | 2.6 (H)Comment: Testing | 1.7 - 2.4 mg/dL | EXTERNAL | | | | performed at [facility] | | LAB | | | | [address];[place] | | | | | | [address] | | | | + + + + + + + + | Specimen | + + | Blood specimen | | (specimen) | + + + +---------+ + + | Performing | Address | City/State/Zipcode | Phone Number | | Organization | | | | + +---------+ + + | EXTERNAL LAB | | | | + +---------+ + + Lipase (01/18/2015 5:09 AM PDT) + + + + + + | Component | Value | Ref Range | Performed | Pathologist | | | | | At | Signature | + + + + + + | Lipase | 341Comment: Testing | 73 - 393 U/L | EXTERNAL | | | | performed at [facility];[address] | | LAB | | | | [address];[place], [place] | | | | | | [address] | | | | + + + + + + + + | Specimen | + + | Blood specimen | | (specimen) | + + + +---------+ + + | Performing | Address | City/State/Zipcode | Phone Number | | Organization | | | | + +---------+ + + | EXTERNAL LAB | | | | + +---------+ + + Digoxin Level (01/18/2015 5:09 AM PDT) + + + + + + | Component | Value | Ref Range | Performed | Pathologist | | | | | At | Signature | + + + + + + | Date of | UNKNOWNComment: Testing | | EXTERNAL | | | Last Dose | performed at [facility];[address] | | LAB | | | | [address];[place] | | | | | | [address] | | | | + + + + + + | Time of | UNKNOWNComment: Testing | | EXTERNAL | | | Last Dose | performed at [facility];[address] | | LAB | | | | [address];[place] | | | | | | [address] | | | | + + + + + + | Digoxin | 0.8 (L)Comment: Testing | 0.90 - 2.00 | EXTERNAL | | | level | performed at [facility];[address] | ng/mL | LAB | | | | [address];[place] | | | | | | [address] | | | | + + + + + + + + | Specimen | + + | Blood specimen | | (specimen) | + + + +---------+ + + | Performing | Address | City/State/Zipcode | Phone Number | | Organization | | | | + +---------+ + + | EXTERNAL LAB | | | | + +---------+ + + Hepatic Function Panel (01/18/2015 5:09 AM PDT) + + + + + + | Component | Value | Ref Range | Performed | Pathologist | | | | | At | Signature | + + + + + + | Protein, | 5.2 (L)Comment: Testing | 6.3 - 8.2 g/dL | EXTERNAL | | | Total | performed at [facility];[address] | | LAB | | | | [address];[place] | | | | | | [address] | | | | + + + + + + | Albumin | 1.2 (L)Comment: Testing | 3.3 - 4.8 g/dL | EXTERNAL | | | | performed at [facility];[address] | | LAB | | | | [address];[place] | | | | | | [address] | | | | + + + + + + | Bilirubin | 3.0 (H)Comment: Testing | 0.1 - 1.5 mg/dL | EXTERNAL | | | Total | performed at [facility];[address] | | LAB | | | | [address];[place] | | | | | | [address] | | | | + + + + + + | Bilirubin | 2.5 (H)Comment: Testing | 0.0 - 0.3 mg/dL | EXTERNAL | | | Direct | performed at [facility];[address] | | LAB | | | | [address];[place] | | | | | | [address] | | | | + + + + + + | ALP, | 111Comment: Testing | 35 - 115 U/L | EXTERNAL | | | External | performed at [facility];[address] | | LAB | | | | [address];[place] | | | | | | [address] | | | | + + + + + + | AST | 55 (H)Comment: Testing | 10 - 45 U/L | EXTERNAL | | | | performed at [facility];[address] | | LAB | | | | [address];[place] | | | | | | [address] | | | | + + + + + + | ALT | 197 (H)Comment: Testing | 10 - 65 U/L | EXTERNAL | | | | performed at [facility];[address] | | LAB | | | | [address];[place], [place] | | | | | | [address] | | | | + + + + + + + + | Specimen | + + | | + + + +---------+ + + | Performing | Address | City/State/Zipcode | Phone Number | | Organization | | | | + +---------+ + + | EXTERNAL LAB | | | | + +---------+ + + Basic Metabolic Panel (01/18/2015 5:09 AM PDT) + + + + + + | Component | Value | Ref Range | Performed | Pathologist | | | | | At | Signature | + + + + + + | Na | 140Comment: Testing | 135 - 143 | EXTERNAL | | | | performed at [facility];[address] | mmol/L | LAB | | | | [address];[place] | | | | | | [address] | | | | + + + + + + | K | 4.4Comment: Testing | 3.5 - 4.9 | EXTERNAL | | | | performed at [facility];[address] | mmol/L | LAB | | | | [address];[place] | | | | | | [address] | | | | + + + + + + | Cl | 108Comment: Testing | 99 - 109 mmol/L | EXTERNAL | | | | performed at [facility];[address] | | LAB | | | | [address];[place] | | | | | | [address] | | | | + + + + + + | CO2 | 27Comment: Testing | 23 - 32 mmol/L | EXTERNAL | | | | performed at [facility];[address] | | LAB | | | | [address];[place] | | | | | | [address] | | | | + + + + + + | Anion Gap | 10Comment: Testing | 5 - 20 mmol/L | EXTERNAL | | | | performed at [facility];[address] | | LAB | | | | [address];[place] | | | | | | [address] | | | | + + + + + + | Glucose, | 129 (H)Comment: Testing | 65 - 99 mg/dL | EXTERNAL | | | Fasting | performed at [facility];[address] | | LAB | | | | [address];[place] | | | | | | [address] | | | | + + + + + + | BUN | 25Comment: Testing | 8 - 25 mg/dL | EXTERNAL | | | | performed at [facility];[address] | | LAB | | | | [address];[place] | | | | | | [address] | | | | + + + + + + | Creatinine | 0.61 (L)Comment: Testing | 0.70 - 1.30 | EXTERNAL | | | | performed at [facility];[address] | mg/dL | LAB | | | | [address];[place] | | | | | | [address] | | | | + + + + + + | BUN/Creatin | 41Comment: Testing | | EXTERNAL | | | ine Ratio | performed at [facility];[address] | | LAB | | | | [address];[place] | | | | | | [address] | | | | + + + + + + | Calcium | 7.4 (L)Comment: Testing | 8.5 - 10.5 | EXTERNAL | | | | performed at [facility];[address] | mg/dL | LAB | | | | [address];[place] | | | | | | [address] | | | | + + + [...] | | | | | | at [facility];[address] [place] [address] | | | | | | [facility];[place] [address] | | | | + + + + + + + + | Specimen | + + | Blood specimen | | (specimen) | + + + +---------+ + + | Performing | Address | City/State/Zipcode | Phone Number | | Organization | | | | + +---------+ + + | EXTERNAL LAB | | | | + +---------+ + + POC Glucose (01/17/2015 11:56 PM PDT) + + + + + + | Component | Value | Ref Range | Performed | Pathologist | | | | | At | Signature | + + + + + + | Glucose, | 151 (H)Comment: Testing | 65 - 99 mg/dL | EXTERNAL | | | Fingerstick | performed at [facility];[address] | | LAB | | | | [address];[place] | | | | | | [address] | | | | + + + + + + + + | Specimen | + + | | + + + +---------+ + + | Performing | Address | City/State/Zipcode | Phone Number | | Organization | | | | + +---------+ + + | EXTERNAL LAB | | | | + +---------+ + + XR Chest 1 Vw (01/17/2015 11:25 PM PDT) + + | Specimen | + + | | + + + + + | Impressions | Performed At | + + + | 1. Dense bronchopneumonia persists throughout the right lung. 2. | | | Small bilateral pleural effusions noted. 3. Endotracheal tube, | | | nasogastric tube and right-sided central line are in satisfactory | | | position. 4. No evidence of pneumothorax post bronchoscopy. | | | | | + + + + + + | Narrative | Performed At | + + + | JOSE EATON XR CHEST 1 VIEW 01/17/2015 11:25 PM HISTORY: | | | 64 years. Male. Rectal cancer patient post bronchoscopy. | | | TECHNIQUE: 1 view of the chest obtained at 2320 hours. | | | COMPARISON: 01/17/[address] chest 01/12/2015 | | | FINDINGS: No pneumothorax is seen postbronchoscopy. An accessed | | | right-sided Mediport is seen with its tip in the superior vena cava at | | | the level of the kavitha. A right-sided central line is also seen | | | with its tip 1.8 cm below the kavihta. A nasogastric tube is seen | | | with its tip in the stomach. Overlying EKG leads and oxygen tubing | | | are noted. A small left-sided pleural effusion is present. A | | | right-sided pleural effusion is also seen. Dense pulmonary | | | infiltrates are seen throughout the right lung consistent with | | | bronchopneumonia. The pulmonary vascular pattern appears normal. | | | The osseous structures are intact. | | + + + + + | Procedure Note | + + | Billy De La Garza Conversion - 11/10/2018 8:48 AM PDT JOSE EATONXR CHEST 1 | | VIEW01/17/2015 11:25 PM HISTORY:64 years. Male. Rectal cancer patient post | | bronchoscopy. TECHNIQUE:1 view of the chest obtained at 2320 hours. | | COMPARISON:01/17/[address] chest 01/12/2015 FINDINGS:No pneumothorax is | | seen postbronchoscopy. An accessed right-sided Mediport is seen with its tip in the | | superior vena cava at the level of the kavitha. A right-sided central line is also seen | | with its tip 1.8 cm below the kavitha. A nasogastric tube is seen with its tip in the | | stomach. Overlying EKG leads and oxygen tubing are noted. A small left-sided pleural | | effusion is present. A right-sided pleural effusion is also seen. Dense pulmonary | | infiltrates are seen throughout the right lung consistent with bronchopneumonia. The | | pulmonary vascular pattern appears normal. The osseous structures are intact. | | IMPRESSION: 1. Dense bronchopneumonia persists throughout the right lung.2. Small | | bilateral pleural effusions noted.3. Endotracheal tube, nasogastric tube and | | right-sided central line are in satisfactory position.4. No evidence of pneumothorax | | post bronchoscopy. | |below the kavitha. A nasogastric tube is | |seen with its tip in the stomach. Overlying EKG leads and oxygen tubing are noted. A smal l left-sided pleural effusion is present. A right-sided pleural effusion is also seen. Den se pulmonary infiltrates are seen | |throughout the right lung consistent | |with bronchopneumonia. The pulmonary vascular pattern appears normal. The osseous structu res are intact. | | | |IMPRESSION: | |1. Dense bronchopneumonia persists throughout the right lung. | |2. Small bilateral pleural effusions noted. | |3. Endotracheal tube, nasogastric tube and right-sided central line are in satisfactory po sition. | |4. No evidence of pneumothorax post bronchoscopy. | | | | | + + Bowel culture, quantitative, aerobic (01/17/2015 11:00 PM PDT) + + | Specimen | + + | | + + + + + | Narrative | Performed At | + + + | Specimen Description BRONCHIAL LAVAGE GRAM | EXTERNAL LAB | | STAIN 4+ | | | WBC'S SEEN | | | 1+ | | | EPITHELIAL CELLS | | | 1+ | | | GRAM POSITIVE COCCI CULTURE | | | 2300 CFU/ML | | | JAZMIN ALBICANSAbnormal | | | 100 CFU/ML | | | GRAM NEGATIVE RODS | | | Testing performed at [facility], [address] | | [place] [address] | | + + + + +---------+ + + | Performing | Address | City/State/Zipcode | Phone Number | | Organization | | | | + +---------+ + + | EXTERNAL LAB | | | | + +---------+ + + XR Chest 1 Vw (01/17/2015 10:17 PM PDT) + + | Specimen | + + | | + + + + + | Impressions | Performed At | + + + | 1. Tubes and lines in appropriate position. 2. No pneumothorax. | | | 3. Persistent right lung infiltrates and left basilar infiltrate, | | | with small bilateral pleural effusions. | | + + + + + + | Narrative | Performed At | + + + | HISTORY: Tubes and lines. COMPARISON: 01/17/15 at 2010 hours. | | | TECHNIQUE: AP portable film of the chest at 2215 hours | | | FINDINGS: Persistent infiltrate throughout the right lung. | | | Opacification right hemidiaphragm. Subtle suspected infiltrate left | | | lung base. Persistent small left effusion. Borderline cardiac | | | enlargement. Right IJ central line, right IJ Mediport unchanged. ET | | | tube mid intrathoracic trachea. NG tube extends into the stomach and | | | the tip is not seen. | | + + + + + | Procedure Note | + + | Frederic, Rad Conversion - 11/10/2018 8:48 AM PDT HISTORY:Tubes and lines. | | COMPARISON:01/17/15 at 2010 hours. TECHNIQUE:AP portable film of the chest at 2215 hours | | FINDINGS:Persistent infiltrate throughout the right lung. Opacification right | | hemidiaphragm. Subtle suspected infiltrate left lung base. Persistent small left | | effusion. Borderline cardiac enlargement. Right IJ central line, right IJ Mediport | | unchanged. ET tube mid intrathoracic trachea. NG tube extends into the stomach and the | | tip is not seen. IMPRESSION: 1. Tubes and lines in appropriate position.2. No | | pneumothorax.3. Persistent right lung infiltrates and left basilar infiltrate, with | | small bilateral pleural effusions. Electronically signed by Harry Naidu MD on | | 01/17/2015 10:57 PM | |Persistent infiltrate throughout the right lung. Opacification right hemidiaphragm. Subtle suspected infiltrate left lung base. Persistent small left effusion. Borderline cardiac enla rgement. Right IJ central line, right IJ Mediport unchanged. ET tube | |mid intrathoracic trachea. NG tube extends into the stomach and the tip is not seen. | | | |IMPRESSION: | |1. Tubes and lines in appropriate position. | |2. No pneumothorax. | |3. Persistent right lung infiltrates and left basilar infiltrate, with small bilateral ple ural effusions. | | | | | + + XR Abd Supine and Upright w 1 Vw Chest (01/17/2015 8:28 PM PDT) + + | Specimen | + + | | + + + + + | Impressions | Performed At | + + + | 1. Worsening infiltrate, with increasing small to moderate right | | | pleural effusion. 2. Persistent mild infiltrate left lung base. 3. | | | Persistent mild cardiac enlargement. 4. Unchanged lines. | | | | | + + + + + + | Narrative | Performed At | + + + | HISTORY: Rectal carcinoma. COMPARISON: 01/16/15. | | | TECHNIQUE: A PA view of the chest, and supine and erect views of the | | | abdomen are obtained. FINDINGS: Worsening diffuse infiltrate in | | | the right lung. Small to moderate right effusion, increased. Subtle | | | opacification left lung base may reflect subtle infiltrate. Right IJ | | | Mediport right IJ central lines unchanged. Persistent mild cardiac | | | enlargement. | | + + + + + | Procedure Note | + + | Frederic, Rad Conversion - 11/10/2018 8:48 AM PDT HISTORY:Rectal carcinoma. | | COMPARISON:01/16/15. TECHNIQUE:A PA view of the chest, and supine and erect views of the | | abdomen are obtained. FINDINGS:Worsening diffuse infiltrate in the right lung. Small to | | moderate right effusion, increased. Subtle opacification left lung base may reflect | | subtle infiltrate. Right IJ Mediport right IJ central lines unchanged. Persistent mild | | cardiac enlargement. IMPRESSION: 1. Worsening infiltrate, with increasing small to | | moderate right pleural effusion.2. Persistent mild infiltrate left lung base.3. | | Persistent mild cardiac enlargement.4. Unchanged lines. | |FINDINGS: | |Worsening diffuse infiltrate in the right lung. Small to moderate right effusion, increased . Subtle opacification left lung base may reflect subtle infiltrate. Right IJ Mediport right IJ central lines unchanged. Persistent mild cardiac enlargement. | | | |IMPRESSION: | |1. Worsening infiltrate, with increasing small to moderate right pleural effusion. | |2. Persistent mild infiltrate left lung base. | |3. Persistent mild cardiac enlargement. | |4. Unchanged lines. | | | | | + + POC Glucose (01/17/2015 5:58 PM PDT) + + + + + + | Component | Value | Ref Range | Performed | Pathologist | | | | | At | Signature | + + + + + + | Glucose, | 132 (H)Comment: Testing | 65 - 99 mg/dL | EXTERNAL | | | Fingerstick | performed at [facility];[address] | | LAB | | | | [address];[place] | | | | | | [address] | | | | + + + + + + + + | Specimen | + + | | + + + +---------+ + + | Performing | Address | City/State/Zipcode | Phone Number | | Organization | | | | + +---------+ + + | EXTERNAL LAB | | | | + +---------+ + + NM Hepatobiliary w PHARM (01/17/2015 2:31 PM PDT) + + | Specimen | + + | | + + + + + | Impressions | Performed At | + + + | 1. Significant cholestasis with persistent hepatic uptake seen 4 | | | hours post injection. 2. Gallbladder not initially seen at 60 | | | minutes but does fill 4 hours post Choletec injection suggesting that | | | the cystic duct is patent. | | + + + + + + | Narrative | Performed At | + + + | [facility] HEPATOBILIARY SCAN WITH CCK 01/17/2015 2:31 PM | | | HISTORY: 64 years. Male. Right upper quadrant abdominal pain. | | | History of rectal cancer and pancreatitis. Patient is currently | | | on TPN but has been off TPN for 2 1/2 hours prior to this study. | | | TECHNIQUE: The patient was injected intravenously with 4.7 mCi of | | | technetium labeled Choletec. Immediate imaging was performed over the | | | upper abdomen at 3 minutes per frame for 60 minutes total. Imaging | | | was also performed in the anterior and right lateral projections | | | after a 4 hour delay. FINDINGS: The liver shows homogeneous | | | uptake, without focal defect but very little clearance. Very little | | | bile excretion into the small bowel was noted until approximately 50 | | | minutes into the study suggesting significant cholestasis which | | | persisted even after a 4 hour delay. No gallbladder filling was | | | seen within the first 60 minutes of the study. The gallbladder was | | | visualized at 4 hours. | | + + + + + | Procedure Note | + + | Billy De La Garza Conversion - 11/10/2018 8:48 AM [facility] HEPATOBILIARY SCAN | | WITH CCK01/17/2015 2:31 PM HISTORY:64 years. Male. Right upper quadrant abdominal | | pain. History of rectal cancer and pancreatitis. Patient is currently on TPN but has | | been off TPN for 2 1/2 hours prior to this study. TECHNIQUE:The patient was injected | | intravenously with 4.7 mCi of technetium labeled Choletec. Immediate imaging was | | performed over the upper abdomen at 3 minutes per frame for 60 minutes total. Imaging | | was also performed in the anterior and right lateral projections after a 4 hour delay. | | FINDINGS:The liver shows homogeneous uptake, without focal defect but very little | | clearance. Very little bile excretion into the small bowel was noted until | | approximately 50 minutes into the study suggesting significant cholestasis which | | persisted even after a 4 hour delay. No gallbladder filling was seen within the first | | 60 minutes of the study. The gallbladder was visualized at 4 hours. IMPRESSION: 1. | | Significant cholestasis with persistent hepatic uptake seen 4 hours post injection.2. | | Gallbladder not initially seen at 60 minutes but does fill 4 hours post Choletec | | injection suggesting that the cystic duct is patent. | |IMPRESSION: | |1. Significant cholestasis with persistent hepatic uptake seen 4 hours post injection. | |2. Gallbladder not initially seen at 60 minutes but does fill 4 hours post Choletec inject ion suggesting that the cystic duct is patent. | | | | | + + POC Glucose (01/17/2015 1:29 PM PDT) + + + + + + | Component | Value | Ref Range | Performed | Pathologist | | | | | At | Signature | + + + + + + | Glucose, | 70Comment: Testing | 65 - 99 mg/dL | EXTERNAL | | | Fingerstick | performed at [facility] | | LAB | | | | [address];[place], [place] | | | | | | [address] | | | | + + + + + + + + | Specimen | + + | | + + + +---------+ + + | Performing | Address | City/State/Zipcode | Phone Number | | Organization | | | | + +---------+ + + | EXTERNAL LAB | | | | + +---------+ + + POC Glucose (01/17/2015 6:05 AM PDT) + + + + + + | Component | Value | Ref Range | Performed | Pathologist | | | | | At | Signature | + + + + + + | Glucose, | 114 (H)Comment: Testing | 65 - 99 mg/dL | EXTERNAL | | | Fingerstick | performed at [facility];[address] | | LAB | | | | [address];[place] | | | | | | [address] | | | | + + + + + + + + | Specimen | + + | | + + + +---------+ + + | Performing | Address | City/State/Zipcode | Phone Number | | Organization | | | | + +---------+ + + | EXTERNAL LAB | | | | + +---------+ + + POC Glucose (01/17/2015 3:37 AM PDT) + + + + + + | Component | Value | Ref Range | Performed | Pathologist | | | | | At | Signature | + + + + + + | Glucose, | 103 (H)Comment: Testing | 65 - 99 mg/dL | EXTERNAL | | | Fingerstick | performed at [facility];[address] | | LAB | | | | [address];[place] | | | | | | [address] | | | | + + + + + + + + | Specimen | + + | | + + + +---------+ + + | Performing | Address | City/State/Zipcode | Phone Number | | Organization | | | | + +---------+ + + | EXTERNAL LAB | | | | + +---------+ + + External Lab: CBC (01/17/2015 3:02 AM PDT) + + + + + + | Component | Value | Ref Range | Performed | Pathologist | | | | | At | Signature | + + + + + + | WBC | 10.87Comment: Testing | 3.80 - 11.00 | EXTERNAL | | | | performed at [facility], [address] | K/uL | LAB | | | | [address], | | | | | | [place] [address] | | | | + + + + + + | RED CELL | 2.78 (L)Comment: Testing | 4.20 - 5.70 | EXTERNAL | | | COUNT | performed at [facility], [address] | M/uL | LAB | | | | [address], | | | | | | [place] [address] | | | | + + + + + + | Hgb | 9.2 (L)Comment: Testing | 13.2 - 17.0 | EXTERNAL | | | | performed at [facility], [address] | g/dL | LAB | | | | [address], | | | | | | [place] [address] | | | | + + + + + + | Hematocrit, | 27.1 (L)Comment: Testing | 39.0 - 50.0 % | EXTERNAL | | | POC | performed at [facility], [address] | | LAB | | | | [address], | | | | | | [place] [address] | | | | + + + + + + | MCV | 97.5Comment: Testing | 80.0 - 100.0 fl | EXTERNAL | | | | performed at [facility], [address] | | LAB | | | | [address], | | | | | | [place] [address] | | | | + + + + + + | MCH | 33.1Comment: Testing | 27.0 - 34.0 pg | EXTERNAL | | | | performed at [facility], [address] | | LAB | | | | [address], | | | | | | [place] [address] | | | | + + + + + + | MCHC | 33.9Comment: Testing | 32.0 - 35.5 | EXTERNAL | | | | performed at [facility], [address] | g/dL | LAB | | | | [address], | | | | | | [place] [address] | | | | + + + + + + | RDW-CV | 42.9Comment: Testing | 37 - 53 fl | EXTERNAL | | | | performed at [facility], [address] | | LAB | | | | [address], | | | | | | [place] [address] | | | | + + + + + + | Platelet | 110 (L)Comment: Testing | 150 - 400 K/uL | EXTERNAL | | | Count | performed at [facility], [address] | | LAB | | | Plasma | [address], | | | | | | [place] [address] | | | | + + + + + + | MPV | 10.6Comment: Testing | fl | EXTERNAL | | | | performed at [facility], [address] | | LAB | | | | [address], | | | | | | [place] [address] | | | | + + + + + + | Differentia | MANUALComment: Testing | | EXTERNAL | | | l Type | performed at [facility], [address] | | LAB | | | | [address], | | | | | | [place] [address] | | | | + + + + + + | Segmented | 87Comment: Testing | % | EXTERNAL | | | Neutrophils | performed at [facility], [address] | | LAB | | | Manual | [address], | | | | | | [place] [address] | | | | + + + + + + | % Bands | 3Comment: Testing | % | EXTERNAL | | | | performed at [facility], [address] | | LAB | | | | [address], | | | | | | [place] [address] | | | | + + + + + + | % | 1Comment: Testing | % | EXTERNAL | | | Metamyelocy | performed at [facility], [address] | | LAB | | | [address] | [address], | | | | | | [place] [address] | | | | + + + + + + | % | 1Comment: Testing | % | EXTERNAL | | | Myelocytes | performed at [facility], [address] | | LAB | | | | [address], | | | | | | [place] [address] | | | | + + + + + + | Lymphocytes | 4Comment: Testing | % | EXTERNAL | | | Manual | performed at [facility], [address] | | LAB | | | | [address], | | | | | | [place] [address] | | | | + + + + + + | Eosinophils | 4Comment: Testing | % | EXTERNAL | | | Manual | performed at [facility], [address] | | LAB | | | | [address], | | | | | | [place] [address] | | | | + + + + + + | Absolute | 9.46 (H)Comment: Testing | 1.90 - 7.40 | EXTERNAL | | | Neutrophils | performed at [facility], [address] | K/uL | LAB | | | | [address], | | | | | | [place] [address] | | | | + + + + + + | Bands | 0.33 (H)Comment: Testing | 0.00 - 0.20 | EXTERNAL | | | Manual | performed at [facility], [address] | K/uL | LAB | | | | [address], | | | | | | [place] [address] | | | | + + + + + + | Absolute | 0.11 (H)Comment: Testing | K/uL | EXTERNAL | | | Metamyelocy | performed at [facility], [address] | | LAB | | | [address] | [address], | | | | | | [place] [address] | | | | + + + + + + | Absolute | 0.11 (H)Comment: Testing | K/uL | EXTERNAL | | | Myelocytes | performed at [facility], [address] | | LAB | | | | [address], | | | | | | [place] [address] | | | | + + + + + + | Absolute | 0.43 (L)Comment: Testing | 1.00 - 3.90 | EXTERNAL | | | Lymphocytes | performed at [facility], [address] | K/uL | LAB | | | | [address], | | | | | | [place] [address] | | | | + + + + + + | Absolute | 0.43Comment: Testing | 0.00 - 0.50 | EXTERNAL | | | Eosinophils | performed at [facility], [address] | K/uL | LAB | | | | [address], | | | | | | [place] [address] | | | | + + + + + + | RBC | NORMAL RBC MORPHComment: | | EXTERNAL | | | Morphology | NORMAL PLT MORPHTesting | | LAB | | | | performed at [facility], [address] | | | | | [address], | | | | | | [place] [address] | | | | + + + + + + + + | Specimen | + + | Blood specimen | | (specimen) | + + + +---------+ + + | Performing | Address | City/State/Zipcode | Phone Number | | Organization | | | | + +---------+ + + | EXTERNAL LAB | | | | + +---------+ + + Phosphorus (01/17/2015 3:02 AM PDT) + + + + + + | Component | Value | Ref Range | Performed | Pathologist | | | | | At | Signature | + + + + + + | PHOSPHORUS | 3.9Comment: Testing | 2.3 - 4.8 mg/dL | EXTERNAL | | | | performed at [facility], [address] | | LAB | | | | [facility], | | | | | | [place] [address] | | | | + + + + + + + + | Specimen | + + | Blood specimen | | (specimen) | + + + +---------+ + + | Performing | Address | City/State/Zipcode | Phone Number | | Organization | | | | + +---------+ + + | EXTERNAL LAB | | | | + +---------+ + + Magnesium (01/17/2015 3:02 AM PDT) + + + + + + | Component | Value | Ref Range | Performed | Pathologist | | | | | At | Signature | + + + + + + | Magnesium | 2.3Comment: Testing | 1.7 - 2.4 mg/dL | EXTERNAL | | | | performed at [facility], [address] | | LAB | | | | [address], | | | | | | [place] [address] | | | | + + + + + + + + | Specimen | + + | Blood specimen | | (specimen) | + + + +---------+ + + | Performing | Address | City/State/Zipcode | Phone Number | | Organization | | | | + +---------+ + + | EXTERNAL LAB | | | | + +---------+ + + Lipase (01/17/2015 3:02 AM PDT) + + + + + + | Component | Value | Ref Range | Performed | Pathologist | | | | | At | Signature | + + + + + + | Lipase | 1,069 (H)Comment: | 73 - 393 U/L | EXTERNAL | | | | Testing performed at | | LAB | | | | [facility];[address] | | | | | | [facility];[place] [address] | | | | + + + + + + + + | Specimen | + + | Blood specimen | | (specimen) | + + + +---------+ + + | Performing | Address | City/State/Zipcode | Phone Number | | Organization | | | | + +---------+ + + | EXTERNAL LAB | | | | + +---------+ + + Amylase (01/17/2015 3:02 AM PDT) + + + + + + | Component | Value | Ref Range | Performed | Pathologist | | | | | At | Signature | + + + + + + | Amylase | 133 (H)Comment: Testing | 25 - 115 U/L | EXTERNAL | | | | performed at [facility];[address] | | LAB | | | | [address];[place] | | | | | | [address] | | | | + + + + + + + + | Specimen | + + | Blood specimen | | (specimen) | + + + +---------+ + + | Performing | Address | City/State/Zipcode | Phone Number | | Organization | | | | + +---------+ + + | EXTERNAL LAB | | | | + +---------+ + + Hepatic Function Panel (01/17/2015 3:02 AM PDT) + + + + + + | Component | Value | Ref Range | Performed | Pathologist | | | | | At | Signature | + + + + + + | Protein, | 5.0 (L)Comment: Testing | 6.3 - 8.2 g/dL | EXTERNAL | | | Total | performed at [facility];[address] | | LAB | | | | [address];[place] | | | | | | [address] | | | | + + + + + + | Albumin | 1.3 (L)Comment: Testing | 3.3 - 4.8 g/dL | EXTERNAL | | | | performed at [facility];[address] | | LAB | | | | [address];[place] | | | | | | [address] | | | | + + + + + + | Bilirubin | 3.5 (H)Comment: Testing | 0.1 - 1.5 mg/dL | EXTERNAL | | | Total | performed at [facility];[address] | | LAB | | | | [address];[place] | | | | | | [address] | | | | + + + + + + | Bilirubin | 2.7 (H)Comment: Testing | 0.0 - 0.3 mg/dL | EXTERNAL | | | Direct | performed at [facility];[address] | | LAB | | | | [address];[place] | | | | | | [address] | | | | + + + + + + | ALP, | 125 (H)Comment: Testing | 35 - 115 U/L | EXTERNAL | | | External | performed at [facility];[address] | | LAB | | | | [address];[place] | | | | | | [address] | | | | + + + + + + | AST | 173 (H)Comment: Testing | 10 - 45 U/L | EXTERNAL | | | | performed at [facility];[address] | | LAB | | | | [address];[place] | | | | | | [address] | | | | + + + + + + | ALT | 340 (H)Comment: Testing | 10 - 65 U/L | EXTERNAL | | | | performed at [facility];[address] | | LAB | | | | [address];[place] | | | | | | [address] | | | | + + + [...] + +---------+ + + Basic Metabolic Panel (01/17/2015 3:02 AM PDT) + + + + + + | Component | Value | Ref Range | Performed | Pathologist | | | | | At | Signature | + + + + + + | Na | 139Comment: Testing | 135 - 143 | EXTERNAL | | | | performed at [facility], [address] | mmol/L | LAB | | | | [address], | | | | | | [place] [address] | | | | + + + + + + | K | 4.0Comment: Testing | 3.5 - 4.9 | EXTERNAL | | | | performed at [facility], [address] | mmol/L | LAB | | | | [address], | | | | | | [place] [address] | | | | + + + + + + | Cl | 105Comment: Testing | 99 - 109 mmol/L | EXTERNAL | | | | performed at [facility], [address] | | LAB | | | | [address], | | | | | | [place] [address] | | | | + + + + + + | CO2 | 30Comment: Testing | 23 - 32 mmol/L | EXTERNAL | | | | performed at [facility], [address] | | LAB | | | | [address], | | | | | | [place] [address] | | | | + + + + + + | Anion Gap | 8Comment: Testing | 5 - 20 mmol/L | EXTERNAL | | | | performed at [facility], [address] | | LAB | | | | [address], | | | | | | [place] [address] | | | | + + + + + + | Glucose, | 104 (H)Comment: Testing | 65 - 99 mg/dL | EXTERNAL | | | Fasting | performed at [facility], [address] | | LAB | | | | [address], | | | | | | [place] [address] | | | | + + + + + + | BUN | 31 (H)Comment: Testing | 8 - 25 mg/dL | EXTERNAL | | | | performed at [facility], [address] | | LAB | | | | [address], | | | | | | [place] [address] | | | | + + + + + + | Creatinine | 0.64 (L)Comment: Testing | 0.70 - 1.30 | EXTERNAL | | | | performed at [facility], [address] | mg/dL | LAB | | | | [address], | | | | | | [place] [address] | | | | + + + + + + | BUN/Creatin | 48Comment: Testing | | EXTERNAL | | | ine Ratio | performed at [facility], [address] | | LAB | | | | [address], | | | | | | [place] [address] | | | | + + + + + + | Calcium | 7.8 (L)Comment: Testing | 8.5 - 10.5 | EXTERNAL | | | | performed at [facility], [address] | mg/dL | LAB | | | | [address], | | | | | | [place] [address] | | | | + + + [...] | | | | | | at [facility], [address] | | | | | | [address], | | | | | | [place] [address] | | | | + + + + + + + + | Specimen | + + | Blood specimen | | (specimen) | + + + +---------+ + + | Performing | Address | City/State/Zipcode | Phone Number | | Organization | | | | + +---------+ + + | EXTERNAL LAB | | | | + +---------+ + + POC Glucose (01/17/2015 1:30 AM PDT) + + + + + + | Component | Value | Ref Range | Performed | Pathologist | | | | | At | Signature | + + + + + + | Glucose, | 115 (H)Comment: Testing | 65 - 99 mg/dL | EXTERNAL | | | Fingerstick | performed at [facility];[address] | | LAB | | | | [address];[place], [place] | | | | | | [address] | | | | + + + + + + + + | Specimen | + + | | + + + +---------+ + + | Performing | Address | City/State/Zipcode | Phone Number | | Organization | | | | + +---------+ + + | EXTERNAL LAB | | | | + +---------+ + + POC Glucose (01/16/2015 11:44 PM PDT) + + + + + + | Component | Value | Ref Range | Performed | Pathologist | | | | | At | Signature | + + + + + + | Glucose, | 105 (H)Comment: Testing | 65 - 99 mg/dL | EXTERNAL | | | Fingerstick | performed at [facility] | | LAB | | | | [address];[place] | | | | | | [address] | | | | + + + + + + + + | Specimen | + + | | + + + +---------+ + + | Performing | Address | City/State/Zipcode | Phone Number | | Organization | | | | + +---------+ + + | EXTERNAL LAB | | | | + +---------+ + + POC Glucose (01/16/2015 9:58 PM PDT) + + + + + + | Component | Value | Ref Range | Performed | Pathologist | | | | | At | Signature | + + + + + + | Glucose, | 114 (H)Comment: Testing | 65 - 99 mg/dL | EXTERNAL | | | Fingerstick | performed at [facility];[address] | | LAB | | | | [address];[place] | | | | | | [address] | | | | + + + + + + + + | Specimen | + + | | + + + +---------+ + + | Performing | Address | City/State/Zipcode | Phone Number | | Organization | | | | + +---------+ + + | EXTERNAL LAB | | | | + +---------+ + + POC Glucose (01/16/2015 7:49 PM PDT) + + + + + + | Component | Value | Ref Range | Performed | Pathologist | | | | | At | Signature | + + + + + + | Glucose, | 115 (H)Comment: Testing | 65 - 99 mg/dL | EXTERNAL | | | Fingerstick | performed at [facility];[address] | | LAB | | | | [address];[place] | | | | | | [address] | | | | + + + + + + + + | Specimen | + + | | + + + +---------+ + + | Performing | Address | City/State/Zipcode | Phone Number | | Organization | | | | + +---------+ + + | EXTERNAL LAB | | | | + +---------+ + + POC Glucose (01/16/2015 6:44 PM PDT) + + + + + + | Component | Value | Ref Range | Performed | Pathologist | | | | | At | Signature | + + + + + + | Glucose, | 137 (H)Comment: Testing | 65 - 99 mg/dL | EXTERNAL | | | Fingerstick | performed at [facility];[address] | | LAB | | | | [address];[place], [place] | | | | | | [address] | | | | + + + + + + + + | Specimen | + + | | + + + +---------+ + + | Performing | Address | City/State/Zipcode | Phone Number | | Organization | | | | + +---------+ + + | EXTERNAL LAB | | | | + +---------+ + + POC Glucose (01/16/2015 4:40 PM PDT) + + + + + + | Component | Value | Ref Range | Performed | Pathologist | | | | | At | Signature | + + + + + + | Glucose, | 102 (H)Comment: Testing | 65 - 99 mg/dL | EXTERNAL | | | Fingerstick | performed at [facility];[address] | | LAB | | | | [address];[place], [place] | | | | | | [address] | | | | + + + + + + + + | Specimen | + + | | + + + +---------+ + + | Performing | Address | City/State/Zipcode | Phone Number | | Organization | | | | + +---------+ + + | EXTERNAL LAB | | | | + +---------+ + + POC Glucose (01/16/2015 2:33 PM PDT) + + + + + + | Component | Value | Ref Range | Performed | Pathologist | | | | | At | Signature | + + + + + + | Glucose, | 125 (H)Comment: Testing | 65 - 99 mg/dL | EXTERNAL | | | Fingerstick | performed at [facility];[address] | | LAB | | | | [address];[place], [place] | | | | | | [address] | | | | + + + + + + + + | Specimen | + + | | + + + +---------+ + + | Performing | Address | City/State/Zipcode | Phone Number | | Organization | | | | + +---------+ + + | EXTERNAL LAB | | | | + +---------+ + + External Lab: CBC (01/16/2015 1:50 PM PDT) + + + + + + | Component | Value | Ref Range | Performed | Pathologist | | | | | At | Signature | + + + + + + | WBC | 10.81Comment: Testing | 3.80 - 11.00 | EXTERNAL | | | | performed at [facility];[address] | K/uL | LAB | | | | [address];[place] | | | | | | [address] | | | | + + + + + + | RED CELL | 2.90 (L)Comment: Testing | 4.20 - 5.70 | EXTERNAL | | | COUNT | performed at [facility];[address] | M/uL | LAB | | | | [address];[place] | | | | | | [address] | | | | + + + + + + | Hgb | 9.8 (L)Comment: Testing | 13.2 - 17.0 | EXTERNAL | | | | performed at [facility];[address] | g/dL | LAB | | | | [address];[place] | | | | | | [address] | | | | + + + + + + | Hematocrit, | 28.3 (L)Comment: Testing | 39.0 - 50.0 % | EXTERNAL | | | POC | performed at [facility];[address] | | LAB | | | | [address];[place] | | | | | | [address] | | | | + + + + + + | MCV | 97.7Comment: Testing | 80.0 - 100.0 fl | EXTERNAL | | | | performed at [facility];[address] | | LAB | | | | [address];[place] | | | | | | [address] | | | | + + + + + + | MCH | 33.6Comment: Testing | 27.0 - 34.0 pg | EXTERNAL | | | | performed at [facility];[address] | | LAB | | | | [address];[place] | | | | | | [address] | | | | + + + + + + | MCHC | 34.4Comment: Testing | 32.0 - 35.5 | EXTERNAL | | | | performed at [facility];[address] | g/dL | LAB | | | | [address];[place] | | | | | | [address] | | | | + + + + + + | RDW-CV | 44.2Comment: Testing | 37 - 53 fl | EXTERNAL | | | | performed at [facility];[address] | | LAB | | | | [address];[place] | | | | | | [id number] | | | | + + + + + + | Platelet | 127 (L)Comment: Testing | 150 - 400 K/uL | EXTERNAL | | | Count | performed at [facility];888 | | LAB | | | Plasma | [address];[place] | | | | | | [id number] | | | | + + + + + + | MPV | 9.7Comment: Testing | fl | EXTERNAL | | | | performed at [facility];[address] | | LAB | | | | [address];[place] | | | | | | [id number] | | | | + + + + + + | Differentia | MANUALComment: Testing | | EXTERNAL | | | l Type | [facility] [facility];[address] | | LAB | | | | [address];[place] | | | | | | [address] | | | | + + + + + + | Segmented | 83Comment: Testing | % | EXTERNAL | | | Neutrophils | performed at [facility];[address] | | LAB | | | Manual | [address];[place] | | | | | | [address] | | | | + + + + + + | % Bands | 2Comment: Testing | % | EXTERNAL | | | | performed at [facility];[address] | | LAB | | | | [address];[place] | | | | | | [address] | | | | + + + + + + | Lymphocytes | 2Comment: Testing | % | EXTERNAL | | | Manual | performed at [facility];[address] | | LAB | | | | [address];[place] | | | | | | [address] | | | | + + + + + + | Monocytes | 11Comment: Testing | % | EXTERNAL | | | Manual | performed at [facility];[address] | | LAB | | | | [address];[place] | | | | | | [address] | | | | + + + + + + | Eosinophils | 2Comment: Testing | % | EXTERNAL | | | Manual | performed at [facility];[address] | | LAB | | | | [address];[place] | | | | | | [address] | | | | + + + + + + | Absolute | 8.96 (H)Comment: Testing | 1.90 - 7.40 | EXTERNAL | | | Neutrophils | performed at [facility];888 | K/uL | LAB | | | | [address];[place] | | | | | | [address] | | | | + + + + + + | Bands | 0.22 (H)Comment: Testing | 0.00 - 0.20 | EXTERNAL | | | Manual | performed at [facility];888 | K/uL | LAB | | | | [address];[place] | | | | | | [address] | | | | + + + + + + | Absolute | 0.22 (L)Comment: Testing | 1.00 - 3.90 | EXTERNAL | | | Lymphocytes | performed at [facility];888 | K/uL | LAB | | | | [address];[place] | | | | | | [address] | | | | + + + + + + | Absolute | 1.19 (H)Comment: Testing | 0.00 - 0.80 | EXTERNAL | | | Monocytes | performed at [facility];888 | K/uL | LAB | | | | [address];[place] | | | | | | [address] | | | | + + + + + + | Absolute | 0.22Comment: Testing | 0.00 - 0.50 | EXTERNAL | | | Eosinophils | performed at [facility];888 | K/uL | LAB | | | | [address];[place] | | | | | | [address] | | | | + + + + + + | RBC | RBC AND PLT MORPHOLOGY | | EXTERNAL | | | Morphology | APPEAR NORMALComment: | | LAB | | | | Testing performed at | | | | | | [facility];[address] [place] [address] | | | | | | [facility];[place] [address] | | | | + + + + + + + + | Specimen | + + | Blood specimen | | (specimen) | + + + +---------+ + + | Performing | Address | City/State/Zipcode | Phone Number | | Organization | | | | + +---------+ + + | EXTERNAL LAB | | | | + +---------+ + + Lipase (01/16/2015 1:50 PM PDT) + + + + + + | Component | Value | Ref Range | Performed | Pathologist | | | | | At | Signature | + + + + + + | Lipase | 1,499 (H)Comment: | 73 - 393 U/L | EXTERNAL | | | | Testing performed at | | LAB | | | | [facility];[address];[place] [address] | | | | + + + + + + + + | Specimen | + + | Blood specimen | | (specimen) | + + + +---------+ + + | Performing | Address | City/State/Zipcode | Phone Number | | Organization | | | | + +---------+ + + | EXTERNAL LAB | | | | + +---------+ + + Lactic Acid (01/16/2015 1:50 PM PDT) + + + + + + | Component | Value | Ref Range | Performed | Pathologist | | | | | At | Signature | + + + + + + | Lactate | 1.6Comment: Testing | 0.4 - 2.0 | EXTERNAL | | | | performed at [facility];888 | mmol/L | LAB | | | | [address];[place], [place] | | | | | | [address] | | | | + + + + + + + + | Specimen | + + | Blood specimen | | (specimen) | + + + +---------+ + + | Performing | Address | City/State/Zipcode | Phone Number | | Organization | | | | + +---------+ + + | EXTERNAL LAB | | | | + +---------+ + + Amylase (01/16/2015 1:50 PM PDT) + + + + + + | Component | Value | Ref Range | Performed | Pathologist | | | | | At | Signature | + + + + + + | Amylase | 184 (H)Comment: Testing | 25 - 115 U/L | EXTERNAL | | | | performed at [facility];8 | | LAB | | | | [address];[place] | | | | | | [address] | | | | + + + + + + + + | Specimen | + + | Blood specimen | | (specimen) | + + + +---------+ + + | Performing | Address | City/State/Zipcode | Phone Number | | Organization | | | | + +---------+ + + | EXTERNAL LAB | | | | + +---------+ + + Hepatic Function Panel (01/16/2015 1:50 PM PDT) + + + + + + | Component | Value | Ref Range | Performed | Pathologist | | | | | At | Signature | + + + + + + | Protein, | 5.2 (L)Comment: Testing | 6.3 - 8.2 g/dL | EXTERNAL | | | Total | performed at [facility];[address] | | LAB | | | | [address];[place] | | | | | | [address] | | | | + + + + + + | Albumin | 1.4 (L)Comment: Testing | 3.3 - 4.8 g/dL | EXTERNAL | | | | performed at [facility];[address] | | LAB | | | | [address];[place] | | | | | | [address] | | | | + + + + + + | Bilirubin | 5.2 (H)Comment: Testing | 0.1 - 1.5 mg/dL | EXTERNAL | | | Total | performed at [facility];[address] | | LAB | | | | [address];[place] | | | | | | [address] | | | | + + + + + + | Bilirubin | 4.4 (H)Comment: Testing | 0.0 - 0.3 mg/dL | EXTERNAL | | | Direct | performed at [facility];[address] | | LAB | | | | [address];[place] | | | | | | [address] | | | | + + + + + + | ALP, | 131 (H)Comment: Testing | 35 - 115 U/L | EXTERNAL | | | External | performed at [facility];[address] | | LAB | | | | [address];[place] | | | | | | [address] | | | | + + + + + + | AST | 289 (H)Comment: Testing | 10 - 45 U/L | EXTERNAL | | | | performed at [facility];[address] | | LAB | | | | [address];[place] | | | | | | [address] | | | | + + + + + + | ALT | 442 (H)Comment: Testing | 10 - 65 U/L | EXTERNAL | | | | performed at [facility];[address] | | LAB | | | | [address];[place] | | | | | | [address] | | | | + + + + + + + + | Specimen | + + | | + + + +---------+ + + | Performing | Address | City/State/Zipcode | Phone Number | | Organization | | | | + +---------+ + + | EXTERNAL LAB | | | | + +---------+ + + POC Glucose (01/16/2015 11:56 AM PDT) + + + + + + | Component | Value | Ref Range | Performed | Pathologist | | | | | At | Signature | + + + + + + | Glucose, | 101 (H)Comment: Testing | 65 - 99 mg/dL | EXTERNAL | | | Fingerstick | performed at [facility];[address] | | LAB | | | | [address];[place], [place] | | | | | | [address] | | | | + + + + + + + + | Specimen | + + | | + + + +---------+ + + | Performing | Address | City/State/Zipcode | Phone Number | | Organization | | | | + +---------+ + + | EXTERNAL LAB | | | | + +---------+ + + Potassium (01/16/2015 11:55 AM PDT) + + + + + + | Component | Value | Ref Range | Performed | Pathologist | | | | | At | Signature | + + + + + + | K | 3.8Comment: Testing | 3.5 - 4.9 | EXTERNAL | | | | performed at [facility];888 | mmol/L | LAB | | | | [address];[place], [place] | | | | | | [address] | | | | + + + + + + + + | Specimen | + + | Blood specimen | | (specimen) | + + + +---------+ + + | Performing | Address | City/State/Zipcode | Phone Number | | Organization | | | | + +---------+ + + | EXTERNAL LAB | | | | + +---------+ + + POC Glucose (01/16/2015 9:52 AM PDT) + + + + + + | Component | Value | Ref Range | Performed | Pathologist | | | | | At | Signature | + + + + + + | Glucose, | 121 (H)Comment: Testing | 65 - 99 mg/dL | EXTERNAL | | | Fingerstick | performed at [facility];[address] | | LAB | | | | [address];[place] | | | | | | [address] | | | | + + + + + + + + | Specimen | + + | | + + + +---------+ + + | Performing | Address | City/State/Zipcode | Phone Number | | Organization | | | | + +---------+ + + | EXTERNAL LAB | | | | + +---------+ + + US Abdomen Limited (01/16/2015 8:53 AM PDT) + + | Specimen | + + | | + + + + + | Impressions | Performed At | + + + | 1. Contracted gallbladder with the gallbladder wall thickening, | | | sludge, and positive sonographic Brar sign. Acute cholecystitis is | | | not excluded. 2. Small 4 mm polyp within the gallbladder. | | | | | + + + + + + | Narrative | Performed At | + + + | [facility] US ABDOMEN LIMITED HISTORY: 64 years. Male. | | | Abdominal pain. TECHNIQUE: Limited sonographic evaluation the | | | abdomen. COMPARISON: None. FINDINGS: There is normal | | | echotexture without focal mass or cyst. Small focal area of increase | | | echogenicity within the gallbladder measuring 4 mm to likely represent | | | a small polyp. Gallbladder is contracted. Mild gallbladder wall | | | thickening measuring 5 mm. No pericholecystic fluid. Mild sludge | | | within the gallbladder. Patient demonstrated a positive sonographic | | | Brar sign. Common bile duct is borderline dilated measuring 7 | | | mm. | | + + + + + | Procedure Note | + + | Billy De La Garza - 11/10/2018 8:48 AM PDT [facility] PARIKH ABDOMEN LIMITED | | HISTORY:64 years. Male. Abdominal pain. TECHNIQUE:Limited sonographic evaluation the | | abdomen. COMPARISON:None. FINDINGS:There is normal echotexture without focal mass or | | cyst. Small focal area of increase echogenicity within the gallbladder measuring 4 mm to | | likely represent a small polyp. Gallbladder is contracted. Mild gallbladder wall | | thickening measuring 5 mm. No pericholecystic fluid. Mild sludge within the gallbladder. | | Patient demonstrated a positive sonographic Brar sign. Common bile duct is borderline | | dilated measuring 7 mm. IMPRESSION: 1. Contracted gallbladder with the gallbladder | | wall thickening, sludge, and positive sonographic Brar sign. Acute cholecystitis is | | not excluded.2. Small 4 mm polyp within the gallbladder. | | | |FINDINGS: | |There is normal echotexture without focal mass or cyst. Small focal area of increase echoge nicity within the gallbladder measuring 4 mm to likely represent a small polyp. | | | |Gallbladder is contracted. Mild gallbladder wall thickening measuring 5 mm. No pericholecys tic fluid. Mild sludge within the gallbladder. Patient demonstrated a positive sonographic M urphy sign. | | | |Common bile duct is borderline dilated measuring 7 mm. | | | |IMPRESSION: | |1. Contracted gallbladder with the gallbladder wall thickening, sludge, and positive sonog raphic Brar sign. Acute cholecystitis is not excluded. | |2. Small 4 mm polyp within the gallbladder. | | | | | + + POC Glucose (01/16/2015 7:54 AM PDT) + + + + + + | Component | Value | Ref Range | Performed | Pathologist | | | | | At | Signature | + + + + + + | Glucose, | 109 (H)Comment: Testing | 65 - 99 mg/dL | EXTERNAL | | | Fingerstick | performed at [facility] | | LAB | | | | [address];[place], [place] | | | | | | [address] | | | | + + + + + + + + | Specimen | + + | | + + + +---------+ + + | Performing | Address | City/State/Zipcode | Phone Number | | Organization | | | | + +---------+ + + | EXTERNAL LAB | | | | + +---------+ + + External Lab: CBC (01/16/2015 6:37 AM PDT) + + + + + + | Component | Value | Ref Range | Performed | Pathologist | | | | | At | Signature | + + + + + + | WBC | 9.40Comment: Testing | 3.80 - 11.00 | EXTERNAL | | | | performed at [facility];888 | K/uL | LAB | | | | [address];[place], [place] | | | | | | [address] | | | | + + + + + + | RED CELL | 2.87 (L)Comment: Testing | 4.20 - 5.70 | EXTERNAL | | | COUNT | performed at [facility];888 | M/uL | LAB | | | | [address];[place] | | | | | | [address] | | | | + + + + + + | Hgb | 9.4 (L)Comment: Testing | 13.2 - 17.0 | EXTERNAL | | | | performed at [facility];888 | g/dL | LAB | | | | [address];[place] | | | | | | [address] | | | | + + + + + + | Hematocrit, | 27.9 (L)Comment: Testing | 39.0 - 50.0 % | EXTERNAL | | | POC | performed at [facility];[address] | | LAB | | | | [address];[place] | | | | | | [address] | | | | + + + + + + | MCV | 97.5Comment: Testing | 80.0 - 100.0 fl | EXTERNAL | | | | performed at [facility];[address] | | LAB | | | | [address];[place] | | | | | | [address] | | | | + + + + + + | MCH | 32.7Comment: Testing | 27.0 - 34.0 pg | EXTERNAL | | | | performed at [facility];[address] | | LAB | | | | [address];[place] | | | | | | [address] | | | | + + + + + + | MCHC | 33.5Comment: Testing | 32.0 - 35.5 | EXTERNAL | | | | performed at [facility];888 | g/dL | LAB | | | | [address];[place] | | | | | | [address] | | | | + + + + + + | RDW-CV | 43.8Comment: Testing | 37 - 53 fl | EXTERNAL | | | | performed at [facility];[address] | | LAB | | | | [address];[place] | | | | | | [address] | | | | + + + + + + | Platelet | 114 (L)Comment: Testing | 150 - 400 K/uL | EXTERNAL | | | Count | performed at [facility];[address] | | LAB | | | Plasma | [address];[place] | | | | | | [address] | | | | + + + + + + | MPV | 9.4Comment: Testing | fl | EXTERNAL | | | | performed at [facility];[address] | | LAB | | | | [address];[place] | | | | | | [address] | | | | + + + + + + | Differentia | MANUALComment: Testing | | EXTERNAL | | | l Type | performed at [facility];[address] | | LAB | | | | [address];[place] | | | | | | [address] | | | | + + + + + + | Segmented | 69Comment: Testing | % | EXTERNAL | | | Neutrophils | performed at [facility];[address] | | LAB | | | Manual | [address];[place] | | | | | | [address] | | | | + + + + + + | % Bands | 21Comment: Testing | % | EXTERNAL | | | | performed at [facility];[address] | | LAB | | | | [address];[place] | | | | | | [address] | | | | + + + + + + | Lymphocytes | 3Comment: Testing | % | EXTERNAL | | | Manual | performed at [facility];[address] | | LAB | | | | [address];[place] | | | | | | [address] | | | | + + + + + + | Monocytes | 5Comment: Testing | % | EXTERNAL | | | Manual | performed at [facility];[address] | | LAB | | | | [address];[place] | | | | | | [address] | | | | + + + + + + | Eosinophils | 2Comment: Testing | % | EXTERNAL | | | Manual | performed at [facility];[address] | | LAB | | | | [address];[place] | | | | | | [address] | | | | + + + + + + | Absolute | 6.49Comment: Testing | 1.90 - 7.40 | EXTERNAL | | | Neutrophils | performed at [facility];[address] | K/uL | LAB | | | | [address];[place] | | | | | | [address] | | | | + + + + + + | Bands | 1.97 (H)Comment: Testing | 0.00 - 0.20 | EXTERNAL | | | Manual | performed at [facility];[address] | K/uL | LAB | | | | [address];[place] | | | | | | [address] | | | | + + + + + + | Absolute | 0.28 (L)Comment: Testing | 1.00 - 3.90 | EXTERNAL | | | Lymphocytes | performed at [facility];[address] | K/uL | LAB | | | | [address];[place] | | | | | | [address] | | | | + + + + + + | Absolute | 0.47Comment: Testing | 0.00 - 0.80 | EXTERNAL | | | Monocytes | performed at [facility];[address] | K/uL | LAB | | | | [address];[place] | | | | | | [address] | | | | + + + + + + | Absolute | 0.19Comment: Testing | 0.00 - 0.50 | EXTERNAL | | | Eosinophils | performed at [facility];[address] | K/uL | LAB | | | | [address];[place] | | | | | | [address] | | | | + + + + + + | Platelet | DECREASEDComment: | | EXTERNAL | | | Estimate | Testing performed at | | LAB | | | | [facility];[address];[place] [address] | | | | + + + + + + | RBC | 1+Comment: GIANT | | EXTERNAL | | | Morphology | PLATELETSNORMAL RBC | | LAB | | | | MORPH1+TOXIC | | | | | | GRANULATIONTesting | | | | | | performed at [facility];[address] | | | | | | [facility];[place], [place] | | | | | | [address] | | | | | | | | | | + + + [...] + +---------+ + + Basic Metabolic Panel (01/16/2015 6:37 AM PDT) + + + + + + | Component | Value | Ref Range | Performed | Pathologist | | | | | At | Signature | + + + + + + | Na | 141Comment: Testing | 135 - 143 | EXTERNAL | | | | performed at [facility];888 | mmol/L | LAB | | | | [address];[place] | | | | | | [address] | | | | + + + + + + | K | 4.0Comment: Testing | 3.5 - 4.9 | EXTERNAL | | | | performed at [facility];888 | mmol/L | LAB | | | | [address];[place] | | | | | | [address] | | | | + + + + + + | Cl | 105Comment: Testing | 99 - 109 mmol/L | EXTERNAL | | | | performed at [facility];[address] | | LAB | | | | [address];[place] | | | | | | [address] | | | | + + + + + + | CO2 | 32Comment: Testing | 23 - 32 mmol/L | EXTERNAL | | | | performed at [facility];[address] | | LAB | | | | [address];[place] | | | | | | [address] | | | | + + + + + + | Anion Gap | 9Comment: Testing | 5 - 20 mmol/L | EXTERNAL | | | | performed at [facility];[address] | | LAB | | | | [address];[place] | | | | | | [address] | | | | + + + + + + | Glucose, | 120 (H)Comment: Testing | 65 - 99 mg/dL | EXTERNAL | | | Fasting | performed at [facility];[address] | | LAB | | | | [address];[place] | | | | | | [address] | | | | + + + + + + | BUN | 24Comment: Testing | 8 - 25 mg/dL | EXTERNAL | | | | performed at [facility];[address] | | LAB | | | | [address];[place] | | | | | | [address] | | | | + + + + + + | Creatinine | 0.71Comment: Testing | 0.70 - 1.30 | EXTERNAL | | | | performed at [facility];888 | mg/dL | LAB | | | | [address];[place] | | | | | | [address] | | | | + + + + + + | BUN/Creatin | 34Comment: Testing | | EXTERNAL | | | ine Ratio | performed at [facility];[address] | | LAB | | | | [address];[place] | | | | | | [address] | | | | + + + + + + | Calcium | 7.5 (L)Comment: Testing | 8.5 - 10.5 | EXTERNAL | | | | performed at [facility];888 | mg/dL | LAB | | | | [address];[place] | | | | | | [address] | | | | + + + [...] | | | | | | at [facility];[address];[place] [address] | | | | + + + + + + + + | Specimen | + + | Blood specimen | | (specimen) | + + + +---------+ + + | Performing | Address | City/State/Zipcode | Phone Number | | Organization | | | | + +---------+ + + | EXTERNAL LAB | | | | + +---------+ + + Lactic Acid (01/16/2015 6:19 AM PDT) + + + + + + | Component | Value | Ref Range | Performed | Pathologist | | | | | At | Signature | + + + + + + | Lactate | 2.1 (H)Comment: Testing | 0.4 - 2.0 | EXTERNAL | | | | performed at [facility];888 | mmol/L | LAB | | | | [address];[place] | | | | | | [address] | | | | + + + + + + + + | Specimen | + + | Blood specimen | | (specimen) | + + + +---------+ + + | Performing | Address | City/State/Zipcode | Phone Number | | Organization | | | | + +---------+ + + | EXTERNAL LAB | | | | + +---------+ + + POC Glucose (01/16/2015 5:40 AM PDT) + + + + + + | Component | Value | Ref Range | Performed | Pathologist | | | | | At | Signature | + + + + + + | Glucose, | 128 (H)Comment: Testing | 65 - 99 mg/dL | EXTERNAL | | | Fingerstick | performed at [facility];[address] | | LAB | | | | [address];[place], [place] | | | | | | [address] | | | | + + + + + + + + | Specimen | + + | | + + + +---------+ + + | Performing | Address | City/State/Zipcode | Phone Number | | Organization | | | | + +---------+ + + | EXTERNAL LAB | | | | + +---------+ + + XR Chest 1 Vw (01/16/2015 5:29 AM PDT) + + | Specimen | + + | | + + + + + | Impressions | Performed At | + + + | 1. Stable extensive airspace disease within the right lung. 2. | | | Small bilateral pleural effusions with left basilar subsegmental | | | atelectasis. Electronically signed by Arturo Maraino DO on | | | 01/16/2015 7:07 AM | | + + + + + + | Narrative | Performed At | + + + | [facility] XR CHEST 1 VIEW HISTORY: 64 years. Male. | | | Rectal cancer, evaluate tubes and lines. TECHNIQUE: Single | | | portable anterior view of the chest was obtained. COMPARISON: | | | 01/15/2015 FINDINGS: Extensive airspace disease throughout the | | | right lung, stable. Right IJ central venous catheter and right | | | Mediport catheter are in stable position. Mild left basilar | | | subsegmental atelectasis. Small bilateral pleural effusions. | | + + + + + | Procedure Note | + + | Frederic, Rad Conversion - 11/10/2018 8:48 AM PDT [facility] TAVERAS CHEST 1 VIEW | | HISTORY:64 years. Male. Rectal cancer, evaluate tubes and lines. TECHNIQUE:Single | | portable anterior view of the chest was obtained. COMPARISON:01/15/2015 | | FINDINGS:Extensive airspace disease throughout the right lung, stable. Right IJ central | | venous catheter and right Mediport catheter are in stable position. Mild left basilar | | subsegmental atelectasis. Small bilateral pleural effusions. IMPRESSION: 1. Stable | | extensive airspace disease within the right lung.2. Small bilateral pleural effusions | | with left basilar subsegmental atelectasis. | |COMPARISON: | |01/15/2015 | | | |FINDINGS: | |Extensive airspace disease throughout the right lung, stable. Right IJ central venous angelic ter and right Mediport catheter are in stable position. Mild left basilar subsegmental atele ctasis. Small bilateral pleural effusions. | | | |IMPRESSION: | |1. Stable extensive airspace disease within the right lung. | |2. Small bilateral pleural effusions with left basilar subsegmental atelectasis. | | | | | + + Calcium, Ionized (01/16/2015 4:41 AM PDT) + + + + + + | Component | Value | Ref Range | Performed | Pathologist | | | | | At | Signature | + + + + + + | Calcium | 1.05 (L)Comment: Testing | 1.08 - 1.25 | EXTERNAL | | | (Calc) | performed at [facility];888 | mmol/L | LAB | | | | [address];[place] | | | | | | [address] | | | | + + + + + + | pH, Bld | 7.442Comment: Testing | 7.300 - 7.450 | EXTERNAL | | | | performed at [facility];[address] | | LAB | | | | [address];[place], [place] | | | | | | [address] | | | | + + + + + + + + | Specimen | + + | Blood specimen | | (specimen) | + + + +---------+ + + | Performing | Address | City/State/Zipcode | Phone Number | | Organization | | | | + +---------+ + + | EXTERNAL LAB | | | | + +---------+ + + POC Glucose (01/16/2015 3:30 AM PDT) + + + + + + | Component | Value | Ref Range | Performed | Pathologist | | | | | At | Signature | + + + + + + | Glucose, | 98Comment: Testing | 65 - 99 mg/dL | EXTERNAL | | | Fingerstick | performed at [facility];[address] | | LAB | | | | [address];[place], [place] | | | | | | [address] | | | | + + + + + + + + | Specimen | + + | | + + + +---------+ + + | Performing | Address | City/State/Zipcode | Phone Number | | Organization | | | | + +---------+ + + | EXTERNAL LAB | | | | + +---------+ + + External Lab: CBC (01/16/2015 2:30 AM PDT) + + + + + + | Component | Value | Ref Range | Performed | Pathologist | | | | | At | Signature | + + + + + + | WBC | 8.37Comment: Testing | 3.80 - 11.00 | EXTERNAL | | | | performed at [facility];888 | K/uL | LAB | | | | [address];[place] | | | | | | [id number] | | | | + + + + + + | RED CELL | 2.81 (L)Comment: Testing | 4.20 - 5.70 | EXTERNAL | | | COUNT | performed at [facility];888 | M/uL | LAB | | | | [address];[place] | | | | | | [phone] | | | | + + + + + + | Hgb | 9.3 (L)Comment: Testing | 13.2 - 17.0 | EXTERNAL | | | | performed at [facility];888 | g/dL | LAB | | | | [address];[place] | | | | | | [phone] | | | | + + + + + + | Hematocrit, | 27.5 (L)Comment: Testing | 39.0 - 50.0 % | EXTERNAL | | | POC | performed at [facility];[address] | | LAB | | | | [address];[place] | | | | | | [id number] | | | | + + + + + + | MCV | 97.9Comment: Testing | 80.0 - 100.0 fl | EXTERNAL | | | | performed at [facility];[address] | | LAB | | | | [address];[place] | | | | | | [phone] | | | | + + + + + + | MCH | 33.1Comment: Testing | 27.0 - 34.0 pg | EXTERNAL | | | | performed at [facility] [place];[address] | | LAB | | | | [address];[place] | | | | | | [address] | | | | + + + + + + | MCHC | 33.8Comment: Testing | 32.0 - 35.5 | EXTERNAL | | | | performed at [facility];888 | g/dL | LAB | | | | [address];[place] | | | | | | [address] | | | | + + + + + + | RDW-CV | 43.3Comment: Testing | 37 - 53 fl | EXTERNAL | | | | performed at [facility];[address] | | LAB | | | | [address];[place] | | | | | | [address] | | | | + + + + + + | Platelet | 117 (L)Comment: Testing | 150 - 400 K/uL | EXTERNAL | | | Count | performed at [facility];888 | | LAB | | | Plasma | [address];[place] | | | | | | [address] | | | | + + + + + + | MPV | 9.9Comment: Testing | fl | EXTERNAL | | | | performed at [facility];[address] | | LAB | | | | [address];[place] | | | | | | [address] | | | | + + + + + + | Differentia | MANUALComment: Testing | | EXTERNAL | | | l Type | performed at [facility];[address] | | LAB | | | | [address];[place] | | | | | | [address] | | | | + + + + + + | Nucleated | 1 (H)Comment: Testing | /100WBC | EXTERNAL | | | Red Blood | performed at [facility];[address] | | LAB | | | Cells | [address];[place] | | | | | | [address] | | | | + + + + + + | Segmented | 82Comment: Testing | % | EXTERNAL | | | Neutrophils | performed at [facility];[address] | | LAB | | | Manual | [address];[place] | | | | | | [address] | | | | + + + + + + | % Bands | 3Comment: Testing | % | EXTERNAL | | | | performed at [facility];[address] | | LAB | | | | [address];[place] | | | | | | [address] | | | | + + + + + + | % | 2Comment: Testing | % | EXTERNAL | | | Metamyelocy | performed at [facility];[address] | | LAB | | | romaine | [address];[place] | | | | | | [address] | | | | + + + + + + | Lymphocytes | 5Comment: Testing | % | EXTERNAL | | | Manual | performed at [facility];[address] | | LAB | | | | [address];[place] | | | | | | [address] | | | | + + + + + + | Reactive | 1Comment: Testing | % | EXTERNAL | | | Lymphocytes | performed at [facility];[address] | | LAB | | | | [address];[place] | | | | | | [address] | | | | + + + + + + | Monocytes | 1Comment: Testing | % | EXTERNAL | | | Manual | performed at [facility];[address] | | LAB | | | | [address];[place] | | | | | | [address] | | | | + + + + + + | Eosinophils | 6Comment: Testing | % | EXTERNAL | | | Manual | performed at [facility];[address] | | LAB | | | | [address];[place] | | | | | | [address] | | | | + + + + + + | Absolute | 6.87Comment: Testing | 1.90 - 7.40 | EXTERNAL | | | Neutrophils | performed at [facility];888 | K/uL | LAB | | | | [address];[place] | | | | | | [address] | | | | + + + + + + | Bands | 0.25 (H)Comment: Testing | 0.00 - 0.20 | EXTERNAL | | | Manual | performed at [facility];888 | K/uL | LAB | | | | [address];[place] | | | | | | [address] | | | | + + + + + + | Absolute | 0.17 (H)Comment: Testing | K/uL | EXTERNAL | | | Metamyelocy | performed at [facility];[address] | | LAB | | | romaine | [address];[place] | | | | | | [address] | | | | + + + + + + | Absolute | 0.42 (L)Comment: Testing | 1.00 - 3.90 | EXTERNAL | | | Lymphocytes | performed at [facility];888 | K/uL | LAB | | | | [address];[place] | | | | | | [address] | | | | + + + + + + | Reactive | 0.08Comment: Testing | K/uL | EXTERNAL | | | Lymphocytes | performed at [facility];[address] | | LAB | | | | [address];[place] | | | | | | [address] | | | | + + + + + + | Absolute | 0.08Comment: Testing | 0.00 - 0.80 | EXTERNAL | | | Monocytes | performed at [facility];888 | K/uL | LAB | | | | [address];[place] | | | | | | [address] | | | | + + + + + + | Absolute | 0.50Comment: Testing | 0.00 - 0.50 | EXTERNAL | | | Eosinophils | performed at [facility];888 | K/uL | LAB | | | | [address];[place] | | | | | | [address] | | | | + + + + + + | Platelet | DECREASEDComment: | | EXTERNAL | | | Estimate | Testing performed at | | LAB | | | | [facility];[address];[place] [address] | | | | + + + + + + | RBC | RBC AND PLT MORPHOLOGY | | EXTERNAL | | | Morphology | APPEAR NORMALComment: | | LAB | | | | Testing performed at | | | | | | [facility];[address];[place] [address] | | | | + + + + + + + + | Specimen | + + | Blood specimen | | (specimen) | + + + +---------+ + + | Performing | Address | City/State/Zipcode | Phone Number | | Organization | | | | + +---------+ + + | EXTERNAL LAB | | | | + +---------+ + + Triglycerides (01/16/2015 2:30 AM PDT) + + + + + + | Component | Value | Ref Range | Performed | Pathologist | | | | | At | Signature | + + + + + + | Triglycerid | 137Comment: Testing | mg/dL | EXTERNAL | | | es | performed at [facility], [address] | | LAB | | | | [address], | | | | | | [place] [address] | | | | + + + + + + + + | Specimen | + + | Blood specimen | | (specimen) | + + + +---------+ + + | Performing | Address | City/State/Zipcode | Phone Number | | Organization | | | | + +---------+ + + | EXTERNAL LAB | | | | + +---------+ + + Prealbumin (01/16/2015 2:30 AM PDT) + + + + + + | Component | Value | Ref Range | Performed | Pathologist | | | | | At | Signature | + + + + + + | Prealbumin | 3.1 (L)Comment: Testing | 20.0 - 40.0 | EXTERNAL | | | | performed at [facility], [address] | mg/dL | LAB | | | | [address], | | | | | | [place] [address] | | | | + + + + + + + + | Specimen | + + | Blood specimen | | (specimen) | + + + +---------+ + + | Performing | Address | City/State/Zipcode | Phone Number | | Organization | | | | + +---------+ + + | EXTERNAL LAB | | | | + +---------+ + + Phosphorus (01/16/2015 2:30 AM PDT) + + + + + + | Component | Value | Ref Range | Performed | Pathologist | | | | | At | Signature | + + + + + + | PHOSPHORUS | 3.6Comment: Testing | 2.3 - 4.8 mg/dL | EXTERNAL | | | | performed at [facility], [address] | | LAB | | | | [address], | | | | | | [place] [address] | | | | + + + + + + + + | Specimen | + + | Blood specimen | | (specimen) | + + + +---------+ + + | Performing | Address | City/State/Zipcode | Phone Number | | Organization | | | | + +---------+ + + | EXTERNAL LAB | | | | + +---------+ + + Magnesium (01/16/2015 2:30 AM PDT) + + + + + + | Component | Value | Ref Range | Performed | Pathologist | | | | | At | Signature | + + + + + + | Magnesium | 2.1Comment: Testing | 1.7 - 2.4 mg/dL | EXTERNAL | | | | performed at [facility], [address] | | LAB | | | | [address], | | | | | | [place] [address] | | | | + + + + + + + + | Specimen | + + | Blood specimen | | (specimen) | + + + +---------+ + + | Performing | Address | City/State/Zipcode | Phone Number | | Organization | | | | + +---------+ + + | EXTERNAL LAB | | | | + +---------+ + + Hepatic Function Panel (01/16/2015 2:30 AM PDT) + + + + + + | Component | Value | Ref Range | Performed | Pathologist | | | | | At | Signature | + + + + + + | Protein, | 5.1 (L)Comment: Testing | 6.3 - 8.2 g/dL | EXTERNAL | | | Total | performed at [facility], [address] | | LAB | | | | [address], | | | | | | [place] [address] | | | | + + + + + + | Albumin | 2.2 (L)Comment: Testing | 3.3 - 4.8 g/dL | EXTERNAL | | | | performed at [facility], [address] | | LAB | | | | [address], | | | | | | [place] [address] | | | | + + + + + + | Bilirubin | 5.3 (H)Comment: Testing | 0.1 - 1.5 mg/dL | EXTERNAL | | | Total | performed at [facility], [address] | | LAB | | | [address], | | | | | | [place] [address] | | | | + + + + + + | Bilirubin | 4.0 (H)Comment: Testing | 0.0 - 0.3 mg/dL | EXTERNAL | | | Direct | performed at [facility], [address] | | LAB | | | | [address], | | | | | | [place] [address] | | | | + + + + + + | ALP, | 103Comment: Testing | 35 - 115 U/L | EXTERNAL | | | External | performed at [facility], [address] | | LAB | | | | [address], | | | | | | [place] [address] | | | | + + + + + + | AST | 307 (H)Comment: Testing | 10 - 45 U/L | EXTERNAL | | | | performed at [facility], [address] | | LAB | | | | [address], | | | | | | [place] [address] | | | | + + + + + + | ALT | 399 (H)Comment: Testing | 10 - 65 U/L | EXTERNAL | | | | performed at [facility], [address] | | LAB | | | | [address], | | | | | | [place] [address] | | | | + + + [...] + +---------+ + + Basic Metabolic Panel (01/16/2015 2:30 AM PDT) + + + + + + | Component | Value | Ref Range | Performed | Pathologist | | | | | At | Signature | + + + + + + | Na | 142Comment: Testing | 135 - 143 | EXTERNAL | | | | performed at [facility], [address] | mmol/L | LAB | | | | [address], | | | | | | [place] [address] | | | | + + + + + + | K | 3.7Comment: Testing | 3.5 - 4.9 | EXTERNAL | | | | performed at [facility], [address] | mmol/L | LAB | | | | [address], | | | | | | [place] [address] | | | | + + + + + + | Cl | 103Comment: Testing | 99 - 109 mmol/L | EXTERNAL | | | | performed at [facility], [address] | | LAB | | | | [address], | | | | | | [place] [address] | | | | + + + + + + | CO2 | 31Comment: Testing | 23 - 32 mmol/L | EXTERNAL | | | | performed at [facility], [address] | | LAB | | | | [address], | | | | | | [place] [address] | | | | + + + + + + | Anion Gap | 12Comment: Testing | 5 - 20 mmol/L | EXTERNAL | | | | performed at [facility], [address] | | LAB | | | | [address], | | | | | | [place] [address] | | | | + + + + + + | Glucose, | 99Comment: Testing | 65 - 99 mg/dL | EXTERNAL | | | Fasting | performed at [facility], [address] | | LAB | | | | [address], | | | | | | [place] [address] | | | | + + + + + + | BUN | 25Comment: Testing | 8 - 25 mg/dL | EXTERNAL | | | | performed at [facility], [address] | | LAB | | | | [address], | | | | | | [place] [address] | | | | + + + + + + | Creatinine | 0.78Comment: Testing | 0.70 - 1.30 | EXTERNAL | | | | performed at [facility], [address] | mg/dL | LAB | | | | [address], | | | | | | [place] [address] | | | | + + + + + + | BUN/Creatin | 32Comment: Testing | | EXTERNAL | | | ine Ratio | performed at [facility], [address] | | LAB | | | | [address], | | | | | | [place] [address] | | | | + + + + + + | Calcium | 8.0 (L)Comment: Testing | 8.5 - 10.5 | EXTERNAL | | | | performed at [facility], [address] | mg/dL | LAB | | | | [facility], | | | | | | [place] [address] | | | | + + + [...] | | | | | | at [facility], [address] | | | | | | [facility], | | | | | | [place] [address] | | | | + + + + + + + + | Specimen | + + | Blood specimen | | (specimen) | + + + +---------+ + + | Performing | Address | City/State/Zipcode | Phone Number | | Organization | | | | + +---------+ + + | EXTERNAL LAB | | | | + +---------+ + + POC Glucose (01/16/2015 1:59 AM PDT) + + + + + + | Component | Value | Ref Range | Performed | Pathologist | | | | | At | Signature | + + + + + + | Glucose, | 106 (H)Comment: Testing | 65 - 99 mg/dL | EXTERNAL | | | Fingerstick | performed at [facility];[address] | | LAB | | | | [address];[place] | | | | | | [address] | | | | + + + + + + + + | Specimen | + + | | + + + +---------+ + + | Performing | Address | City/State/Zipcode | Phone Number | | Organization | | | | + +---------+ + + | EXTERNAL LAB | | | | + +---------+ + + POC Glucose (01/16/2015 12:02 AM PDT) + + + + + + | Component | Value | Ref Range | Performed | Pathologist | | | | | At | Signature | + + + + + + | Glucose, | 110 (H)Comment: Testing | 65 - 99 mg/dL | EXTERNAL | | | Fingerstick | performed at [facility];[address] | | LAB | | | | [address];[place] | | | | | | [address] | | | | + + + + + + + + | Specimen | + + | | + + + +---------+ + + | Performing | Address | City/State/Zipcode | Phone Number | | Organization | | | | + +---------+ + + | EXTERNAL LAB | | | | + +---------+ + + POC Glucose (01/15/2015 10:13 PM PDT) + + + + + + | Component | Value | Ref Range | Performed | Pathologist | | | | | At | Signature | + + + + + + | Glucose, | 114 (H)Comment: Testing | 65 - 99 mg/dL | EXTERNAL | | | Fingerstick | performed at [facility];[address] | | LAB | | | | [address];[place] | | | | | | [address] | | | | + + + + + + + + | Specimen | + + | | + + + +---------+ + + | Performing | Address | City/State/Zipcode | Phone Number | | Organization | | | | + +---------+ + + | EXTERNAL LAB | | | | + +---------+ + + Potassium (01/15/2015 9:12 PM PDT) + + + + + + | Component | Value | Ref Range | Performed | Pathologist | | | | | At | Signature | + + + + + + | K | 3.3 (L)Comment: Testing | 3.5 - 4.9 | EXTERNAL | | | | performed at [facility];[address] | mmol/L | LAB | | | | [address];[place], [place] | | | | | | [address] | | | | + + + + + + + + | Specimen | + + | Blood specimen | | (specimen) | + + + +---------+ + + | Performing | Address | City/State/Zipcode | Phone Number | | Organization | | | | + +---------+ + + | EXTERNAL LAB | | | | + +---------+ + + POC Glucose (01/15/2015 7:51 PM PDT) + + + + + + | Component | Value | Ref Range | Performed | Pathologist | | | | | At | Signature | + + + + + + | Glucose, | 116 (H)Comment: Testing | 65 - 99 mg/dL | EXTERNAL | | | Fingerstick | performed at [facility];[address] | | LAB | | | | [address];[place] | | | | | | [address] | | | | + + + + + + + + | Specimen | + + | | + + + +---------+ + + | Performing | Address | City/State/Zipcode | Phone Number | | Organization | | | | + +---------+ + + | EXTERNAL LAB | | | | + +---------+ + + POC Glucose (01/15/2015 5:46 PM PDT) + + + + + + | Component | Value | Ref Range | Performed | Pathologist | | | | | At | Signature | + + + + + + | Glucose, | 105 (H)Comment: Testing | 65 - 99 mg/dL | EXTERNAL | | | Fingerstick | performed at [facility];[address] | | LAB | | | | [address];[place], [place] | | | | | | [address] | | | | + + + + + + + + | Specimen | + + | | + + + +---------+ + + | Performing | Address | City/State/Zipcode | Phone Number | | Organization | | | | + +---------+ + + | EXTERNAL LAB | | | | + +---------+ + + POC Glucose (01/15/2015 3:41 PM PDT) + + + + + + | Component | Value | Ref Range | Performed | Pathologist | | | | | At | Signature | + + + + + + | Glucose, | 108 (H)Comment: Testing | 65 - 99 mg/dL | EXTERNAL | | | Fingerstick | performed at [facility];[address] | | LAB | | | | [address];[place], [place] | | | | | | [address] | | | | + + + + + + + + | Specimen | + + | | + + + +---------+ + + | Performing | Address | City/State/Zipcode | Phone Number | | Organization | | | | + +---------+ + + | EXTERNAL LAB | | | | + +---------+ + + Potassium (01/15/2015 3:05 PM PDT) + + + + + + | Component | Value | Ref Range | Performed | Pathologist | | | | | At | Signature | + + + + + + | K | 3.3 (L)Comment: Testing | 3.5 - 4.9 | EXTERNAL | | | | performed at [facility];888 | mmol/L | LAB | | | | [address] [facility];[place], [place] | | | | | | [address] | | | | + + + + + + + + | Specimen | + + | Blood specimen | | (specimen) | + + + +---------+ + + | Performing | Address | City/State/Zipcode | Phone Number | | Organization | | | | + +---------+ + + | EXTERNAL LAB | | | | + +---------+ + + POC Glucose (01/15/2015 1:34 PM PDT) + + + + + + | Component | Value | Ref Range | Performed | Pathologist | | | | | At | Signature | + + + + + + | Glucose, | 110 (H)Comment: Testing | 65 - 99 mg/dL | EXTERNAL | | | Fingerstick | performed at [facility];[address] | | LAB | | | | [address];[place] | | | | | | [address] | | | | + + + + + + + + | Specimen | + + | | + + + +---------+ + + | Performing | Address | City/State/Zipcode | Phone Number | | Organization | | | | + +---------+ + + | EXTERNAL LAB | | | | + +---------+ + + POC Glucose (01/15/2015 12:25 PM PDT) + + + + + + | Component | Value | Ref Range | Performed | Pathologist | | | | | At | Signature | + + + + + + | Glucose, | 101 (H)Comment: Testing | 65 - 99 mg/dL | EXTERNAL | | | Fingerstick | performed at [facility] | | LAB | | | | [address];[place] | | | | | | [address] | | | | + + + + + + + + | Specimen | + + | | + + + +---------+ + + | Performing | Address | City/State/Zipcode | Phone Number | | Organization | | | | + +---------+ + + | EXTERNAL LAB | | | | + +---------+ + + POC Glucose (01/15/2015 11:13 AM PDT) + + + + + + | Component | Value | Ref Range | Performed | Pathologist | | | | | At | Signature | + + + + + + | Glucose, | 109 (H)Comment: Testing | 65 - 99 mg/dL | EXTERNAL | | | Fingerstick | performed at [facility];[address] | | LAB | | | | [address];[place], [place] | | | | | | [address] | | | | + + + + + + + + | Specimen | + + | | + + + +---------+ + + | Performing | Address | City/State/Zipcode | Phone Number | | Organization | | | | + +---------+ + + | EXTERNAL LAB | | | | + +---------+ + + POC Glucose (01/15/2015 10:07 AM PDT) + + + + + + | Component | Value | Ref Range | Performed | Pathologist | | | | | At | Signature | + + + + + + | Glucose, | 93Comment: Testing | 65 - 99 mg/dL | EXTERNAL | | | Fingerstick | performed at [facility] | | LAB | | | | [address];[place], [place] | | | | | | [address] | | | | + + + + + + + + | Specimen | + + | | + + + +---------+ + + | Performing | Address | City/State/Zipcode | Phone Number | | Organization | | | | + +---------+ + + | EXTERNAL LAB | | | | + +---------+ + + Potassium (01/15/2015 9:58 AM PDT) + + + + + + | Component | Value | Ref Range | Performed | Pathologist | | | | | At | Signature | + + + + + + | K | 3.1 (L)Comment: Testing | 3.5 - 4.9 | EXTERNAL | | | | performed at [facility];[address] | mmol/L | LAB | | | | [address];[place], [place] | | | | | | [address] | | | | + + + + + + + + | Specimen | + + | Blood specimen | | (specimen) | + + + +---------+ + + | Performing | Address | City/State/Zipcode | Phone Number | | Organization | | | | + +---------+ + + | EXTERNAL LAB | | | | + +---------+ + + Phosphorus (01/15/2015 9:58 AM PDT) + + + + + + | Component | Value | Ref Range | Performed | Pathologist | | | | | At | Signature | + + + + + + | PHOSPHORUS | 2.8Comment: Testing | 2.3 - 4.8 mg/dL | EXTERNAL | | | | performed at [facility];[address] | | LAB | | | | [address];[place], [place] | | | | | | [address] | | | | + + + + + + + + | Specimen | + + | Blood specimen | | (specimen) | + + + +---------+ + + | Performing | Address | City/State/Zipcode | Phone Number | | Organization | | | | + +---------+ + + | EXTERNAL LAB | | | | + +---------+ + + Magnesium (01/15/2015 9:58 AM PDT) + + + + + + | Component | Value | Ref Range | Performed | Pathologist | | | | | At | Signature | + + + + + + | Magnesium | 2.1Comment: Testing | 1.7 - 2.4 mg/dL | EXTERNAL | | | | performed at [facility];[address] | | LAB | | | | [address];[place], [place] | | | | | | [address] | | | | + + + + + + + + | Specimen | + + | Blood specimen | | (specimen) | + + + +---------+ + + | Performing | Address | City/State/Zipcode | Phone Number | | Organization | | | | + +---------+ + + | EXTERNAL LAB | | | | + +---------+ + + POC Glucose (01/15/2015 7:59 AM PDT) + + + + + + | Component | Value | Ref Range | Performed | Pathologist | | | | | At | Signature | + + + + + + | Glucose, | 100 (H)Comment: Testing | 65 - 99 mg/dL | EXTERNAL | | | Fingerstick | performed at [facility];[address] | | LAB | | | | [address];[place] | | | | | | [address] | | | | + + + + + + + + | Specimen | + + | | + + + +---------+ + + | Performing | Address | City/State/Zipcode | Phone Number | | Organization | | | | + +---------+ + + | EXTERNAL LAB | | | | + +---------+ + + POC Glucose (01/15/2015 6:55 AM PDT) + + + + + + | Component | Value | Ref Range | Performed | Pathologist | | | | | At | Signature | + + + + + + | Glucose, | 104 (H)Comment: Testing | 65 - 99 mg/dL | EXTERNAL | | | Fingerstick | performed at [facility];[address] | | LAB | | | | [address];[place], [place] | | | | | | [address] | | | | + + + + + + + + | Specimen | + + | | + + + +---------+ + + | Performing | Address | City/State/Zipcode | Phone Number | | Organization | | | | + +---------+ + + | EXTERNAL LAB | | | | + +---------+ + + XR Chest 1 Vw (01/15/2015 5:52 AM PDT) + + | Specimen | + + | | + + + + + | Impressions | Performed At | + + + | 1. Stable extensive airspace disease throughout the right lung. | | | 2. Small bilateral pleural effusions with mild left basilar | | | subsegmental atelectasis. | | + + + + + + | Narrative | Performed At | + + + | JOSE EATON XR CHEST 1 VIEW HISTORY: 64 years. Male. | | | Evaluate tubes and lines. TECHNIQUE: Single portable anterior | | | view of the chest was obtained. COMPARISON: 01/14/2015 | | | FINDINGS: Endotracheal tube and nasogastric tube are in stable | | | position. Right IJ central venous catheter tip located in region | | | superior vena cava. Right-sided Mediport catheter is also stable | | | position. Extensive airspace disease at the right lung. Mild left | | | basilar subsegmental atelectasis. Small bilateral pleural effusions. | | | | | + + + + + | Procedure Note | + + | Frederic, Rad Conversion - 11/10/2018 8:48 AM PDT [facility] CHEST 1 VIEW | | HISTORY:64 years. Male. Evaluate tubes and lines. TECHNIQUE:Single portable anterior | | view of the chest was obtained. COMPARISON:01/14/2015 FINDINGS:Endotracheal tube and | | nasogastric tube are in stable position. Right IJ central venous catheter tip located in | | region superior vena cava. Right-sided Mediport catheter is also stable position. | | Extensive airspace disease at the right lung. Mild left basilar subsegmental | | atelectasis. Small bilateral pleural effusions. IMPRESSION: 1. Stable extensive | | airspace disease throughout the right lung.2. Small bilateral pleural effusions with | | mild left basilar subsegmental atelectasis. | |01/14/2015 | | | |FINDINGS: | |Endotracheal tube and nasogastric tube are in stable position. Right IJ central venous cath eter tip located in region superior vena cava. Right-sided Mediport catheter is also stable position. Extensive airspace disease at the right lung. Mild left | |basilar subsegmental atelectasis. Small bilateral pleural effusions. | | | |IMPRESSION: | |1. Stable extensive airspace disease throughout the right lung. | |2. Small bilateral pleural effusions with mild left basilar subsegmental atelectasis. | | | | | + + POC Glucose (01/15/2015 5:38 AM PDT) + + + + + + | Component | Value | Ref Range | Performed | Pathologist | | | | | At | Signature | + + + + + + | Glucose, | 97Comment: Testing | 65 - 99 mg/dL | EXTERNAL | | | Fingerstick | performed at [facility];[address] | | LAB | | | | [address];[place] | | | | | | [id number] | | | | + + + + + + + + | Specimen | + + | | + + + +---------+ + + | Performing | Address | City/State/Zipcode | Phone Number | | Organization | | | | + +---------+ + + | EXTERNAL LAB | | | | + +---------+ + + POC Glucose (01/15/2015 5:36 AM PDT) + + + + + + | Component | Value | Ref Range | Performed | Pathologist | | | | | At | Signature | + + + + + + | Glucose, | 95Comment: Testing | 65 - 99 mg/dL | EXTERNAL | | | Fingerstick | performed at [facility];[address] | | LAB | | | | [address];[place], [place] | | | | | | [id number] | | | | + + + + + + + + | Specimen | + + | | + + + +---------+ + + | Performing | Address | City/State/Zipcode | Phone Number | | Organization | | | | + +---------+ + + | EXTERNAL LAB | | | | + +---------+ + + Procalcitonin (01/15/2015 4:17 AM PDT) + + + + + + | Component | Value | Ref Range | Performed | Pathologist | | | | | At | Signature | + + + + + + | PROCALCITON | 14.56 (H)Comment: | ng/mL | EXTERNAL | | | IN | INTERPRETIVE | | LAB | | | | INFORMATION: | | | | | | PROCALCITONIN PCT <= | | | | | | 0.5 ng/mL: Low risk | | | | | | for progression to | | | | | | severe systemic | | | | | | bacterial infection | | | | | | (severe sepsis/septic | | | | | | shock). Does not | | | | | | exclude an infection, | | | | | | because localized | | | | | | infections may be | | | | | | associated with such low | | | | | | levels. If PCT is | | | | | | measured very early | | | | | | after bacterial | | | | | | challenge (usually <6 | | | | | | hours), results may | | | | | | still be low and | | | | | | should re-assess PCT | | | | | | 6-24 hours later. PCT | | | | | | >0.5 and <= 2 ng/mL: | | | | | | Moderate risk for | | | | | | progression to severe | | | | | | systemic infection | | | | | | (severe sepsis/septic | | | | | | shock). Other | | | | | | conditions are known | | | | | | to elevate PCT, patient | | | | | | should be closely | | | | | | monitored both | | | | | | clinically and by | | | | | | re-assessing PCT | | | | | | within 6-24 hours. PCT > | | | | | | 2 ng/mL: High | | | | | | likelihood for | | | | | | progression to severe | | | | | | systemic bacterial | | | | | | infection (severe | | | | | | sepsis/septic shock). | | | | | | PCT >= 10 ng/mL: | | | | | | High likelihood of | | | | | | severe sepsis or septic | | | | | | shock.Testing performed | | | | | | at [facility];[address] | | | | | | [address];[place] [address] | | | | + + + + + + + + | Specimen | + + | | + + + +---------+ + + | Performing | Address | City/State/Zipcode | Phone Number | | Organization | | | | + +---------+ + + | EXTERNAL LAB | | | | + +---------+ + + External Lab: CBC (01/15/2015 4:17 AM PDT) + + + + + + | Component | Value | Ref Range | Performed | Pathologist | | | | | At | Signature | + + + + + + | WBC | 6.67Comment: Testing | 3.80 - 11.00 | EXTERNAL | | | | performed at [facility];[address] | K/uL | LAB | | | | [address];[place] | | | | | | [phone] | | | | + + + + + + | RED CELL | 2.77 (L)Comment: Testing | 4.20 - 5.70 | EXTERNAL | | | COUNT | performed at [facility];[address] | M/uL | LAB | | | | [address];[place] | | | | | | [address] | | | | + + + + + + | Hgb | 9.5 (L)Comment: Testing | 13.2 - 17.0 | EXTERNAL | | | | performed at [facility];[address] | g/dL | LAB | | | | [address];[place] | | | | | | [address] | | | | + + + + + + | Hematocrit, | 27.2 (L)Comment: Testing | 39.0 - 50.0 % | EXTERNAL | | | POC | performed at [facility];[address] | | LAB | | | | [address];[place] | | | | | | [address] | | | | + + + + + + | MCV | 98.2Comment: Testing | 80.0 - 100.0 fl | EXTERNAL | | | | performed at [facility];[address] | | LAB | | | | [address];[place] | | | | | | [address] | | | | + + + + + + | MCH | 34.5 (H)Comment: Testing | 27.0 - 34.0 pg | EXTERNAL | | | | performed at [facility];[address] | | LAB | | | | [address];[place] | | | | | | [address] | | | | + + + + + + | MCHC | 35.1Comment: Testing | 32.0 - 35.5 | EXTERNAL | | | | performed at [facility];[address] | g/dL | LAB | | | | [address];[place] | | | | | | [address] | | | | + + + + + + | RDW-CV | 44.2Comment: Testing | 37 - 53 fl | EXTERNAL | | | | performed at [facility];[address] | | LAB | | | | [address];[place] | | | | | | [address] | | | | + + + + + + | Platelet | 105 (L)Comment: Testing | 150 - 400 K/uL | EXTERNAL | | | Count | performed at [facility];[address] | | LAB | | | Plasma | [address];[place] | | | | | | [address] | | | | + + + + + + | MPV | 9.2Comment: Testing | fl | EXTERNAL | | | | performed at [facility];[address] | | LAB | | | | [address];[place] | | | | | | [address] | | | | + + + + + + | Differentia | MANUALComment: Testing | | EXTERNAL | | | l Type | performed at [facility];[address] | | LAB | | | | [address];[place] | | | | | | [address] | | | | + + + + + + | Segmented | 83Comment: Testing | % | EXTERNAL | | | Neutrophils | performed at [facility];[address] | | LAB | | | Manual | [address];[place] | | | | | | [address] | | | | + + + + + + | % Bands | 7Comment: Testing | % | EXTERNAL | | | | performed at [facility];[address] | | LAB | | | | [address];[place] | | | | | | [address] | | | | + + + + + + | Lymphocytes | 8Comment: Testing | % | EXTERNAL | | | Manual | performed at [facility];[address] | | LAB | | | | [address];[place] | | | | | | [address] | | | | + + + + + + | Monocytes | 2Comment: Testing | % | EXTERNAL | | | Manual | performed at [facility];[address] | | LAB | | | | [address];[place] | | | | | | [address] | | | | + + + + + + | Absolute | 5.54Comment: Testing | 1.90 - 7.40 | EXTERNAL | | | Neutrophils | performed at [facility];[address] | K/uL | LAB | | | | [address];[place] | | | | | | [address] | | | | + + + + + + | Bands | 0.47 (H)Comment: Testing | 0.00 - 0.20 | EXTERNAL | | | Manual | performed at [facility];[address] | K/uL | LAB | | | | [address];[place] | | | | | | [address] | | | | + + + + + + | Absolute | 0.53 (L)Comment: Testing | 1.00 - 3.90 | EXTERNAL | | | Lymphocytes | performed at [facility];[address] | K/uL | LAB | | | | [address];[place] | | | | | | [address] | | | | + + + + + + | Absolute | 0.13Comment: Testing | 0.00 - 0.80 | EXTERNAL | | | Monocytes | performed at [facility];[address] | K/uL | LAB | | | | [address];[place] | | | | | | [address] | | | | + + + + + + | RBC | RBC AND PLT MORPHOLOGY | | EXTERNAL | | | Morphology | APPEAR NORMALComment: | | LAB | | | | Testing performed at | | | | | | [facility];[address] | | | | [address];[place] [phone] | | | | + + + + + + + + | Specimen | + + | Blood specimen | | (specimen) | + + + +---------+ + + | Performing | Address | City/State/Zipcode | Phone Number | | Organization | | | | + +---------+ + + | EXTERNAL LAB | | | | + +---------+ + + Phosphorus (01/15/2015 4:17 AM PDT) + + + + + + | Component | Value | Ref Range | Performed | Pathologist | | | | | At | Signature | + + + + + + | PHOSPHORUS | 1.4 (L)Comment: Testing | 2.3 - 4.8 mg/dL | EXTERNAL | | | | performed at [facility];[address] | | LAB | | | | [address];[place], [place] | | | | | | [address] | | | | + + + + + + + + | Specimen | + + | Blood specimen | | (specimen) | + + + +---------+ + + | Performing | Address | City/State/Zipcode | Phone Number | | Organization | | | | + +---------+ + + | EXTERNAL LAB | | | | + +---------+ + + Magnesium (01/15/2015 4:17 AM PDT) + + + + + + | Component | Value | Ref Range | Performed | Pathologist | | | | | At | Signature | + + + + + + | Magnesium | 2.3Comment: Testing | 1.7 - 2.4 mg/dL | EXTERNAL | | | | performed at [facility];[address] | | LAB | | | | [address];[place] | | | | | | [address] | | | | + + + + + + + + | Specimen | + + | Blood specimen | | (specimen) | + + + +---------+ + + | Performing | Address | City/State/Zipcode | Phone Number | | Organization | | | | + +---------+ + + | EXTERNAL LAB | | | | + +---------+ + + Digoxin Level (01/15/2015 4:17 AM PDT) + + + + + + | Component | Value | Ref Range | Performed | Pathologist | | | | | At | Signature | + + + + + + | Date of | UNKNOWNComment: Testing | | EXTERNAL | | | Last Dose | performed at [facility];[address] | | LAB | | | | [address];[place] | | | | | | [address] | | | | + + + + + + | Time of | UNKNOWNComment: Testing | | EXTERNAL | | | Last Dose | performed at [facility];[address] | | LAB | | | | [address];[place] | | | | | | [address] | | | | + + + + + + | Digoxin | 0.9Comment: Testing | 0.90 - 2.00 | EXTERNAL | | | level | performed at [facility];[address] | ng/mL | LAB | | | | [address];[place] | | | | | | [address] | | | | + + + [...] + +---------+ + + Basic Metabolic Panel (01/15/2015 4:17 AM PDT) + + + + + + | Component | Value | Ref Range | Performed | Pathologist | | | | | At | Signature | + + + + + + | Na | 142Comment: Testing | 135 - 143 | EXTERNAL | | | | performed at [facility];[address] | mmol/L | LAB | | | | [address];[place] | | | | | | [address] | | | | + + + + + + | K | 3.1 (L)Comment: Testing | 3.5 - 4.9 | EXTERNAL | | | | performed at [facility];[address] | mmol/L | LAB | | | | [address];[place] | | | | | | [address] | | | | + + + + + + | Cl | 110 (H)Comment: Testing | 99 - 109 mmol/L | EXTERNAL | | | | performed at [facility];[address] | | LAB | | | | [address];[place] | | | | | | [address] | | | | + + + + + + | CO2 | 31Comment: Testing | 23 - 32 mmol/L | EXTERNAL | | | | performed at [facility];[address] | | LAB | | | | [address];[place] | | | | | | [address] | | | | + + + + + + | Anion Gap | 5Comment: Testing | 5 - 20 mmol/L | EXTERNAL | | | | performed at [facility];[address] | | LAB | | | | [address];[place] | | | | | | [address] | | | | + + + + + + | Glucose, | 95Comment: Testing | 65 - 99 mg/dL | EXTERNAL | | | Fasting | performed at [facility];[address] | | LAB | | | | [address];[place] | | | | | | [address] | | | | + + + + + + | BUN | 26 (H)Comment: Testing | 8 - 25 mg/dL | EXTERNAL | | | | performed at [facility];[address] | | LAB | | | | [address];[place] | | | | | | [address] | | | | + + + + + + | Creatinine | 0.61 (L)Comment: Testing | 0.70 - 1.30 | EXTERNAL | | | | performed at [facility];[address] | mg/dL | LAB | | | | [address];[place] | | | | | | [address] | | | | + + + + + + | BUN/Creatin | 43Comment: Testing | | EXTERNAL | | | ine Ratio | performed at [facility];[address] | | LAB | | | | [address];[place] | | | | | | [address] | | | | + + + + + + | Calcium | 7.4 (L)Comment: Testing | 8.5 - 10.5 | EXTERNAL | | | | performed at [facility];[address] | mg/dL | LAB | | | | [address];[place] | | | | | | [address] | | | | + + + [...] | | | | | | at [facility];[address] | | | | [address];[place] [phone] | | | | + + + + + + + + | Specimen | + + | Blood specimen | | (specimen) | + + + +---------+ + + | Performing | Address | City/State/Zipcode | Phone Number | | Organization | | | | + +---------+ + + | EXTERNAL LAB | | | | + +---------+ + + POC Glucose (01/15/2015 3:25 AM PDT) + + + + + + | Component | Value | Ref Range | Performed | Pathologist | | | | | At | Signature | + + + + + + | Glucose, | 114 (H)Comment: Testing | 65 - 99 mg/dL | EXTERNAL | | | Fingerstick | performed at [facility];[address] | | LAB | | | | [address];[place] | | | | | | [address] | | | | + + + + + + + + | Specimen | + + | | + + + +---------+ + + | Performing | Address | City/State/Zipcode | Phone Number | | Organization | | | | + +---------+ + + | EXTERNAL LAB | | | | + +---------+ + + POC Glucose (01/15/2015 2:21 AM PDT) + + + + + + | Component | Value | Ref Range | Performed | Pathologist | | | | | At | Signature | + + + + + + | Glucose, | 105 (H)Comment: Testing | 65 - 99 mg/dL | EXTERNAL | | | Fingerstick | performed at [facility];[address] | | LAB | | | | [address];[place] | | | | | | [address] | | | | + + + + + + + + | Specimen | + + | | + + + +---------+ + + | Performing | Address | City/State/Zipcode | Phone Number | | Organization | | | | + +---------+ + + | EXTERNAL LAB | | | | + +---------+ + + POC Glucose (01/15/2015 1:15 AM PDT) + + + + + + | Component | Value | Ref Range | Performed | Pathologist | | | | | At | Signature | + + + + + + | Glucose, | 102 (H)Comment: Testing | 65 - 99 mg/dL | EXTERNAL | | | Fingerstick | performed at [facility];[address] | | LAB | | | | [address];[place], [place] | | | | | | [address] | | | | + + + + + + + + | Specimen | + + | | + + + +---------+ + + | Performing | Address | City/State/Zipcode | Phone Number | | Organization | | | | + +---------+ + + | EXTERNAL LAB | | | | + +---------+ + + POC Glucose (01/15/2015 1:13 AM PDT) + + + + + + | Component | Value | Ref Range | Performed | Pathologist | | | | | At | Signature | + + + + + + | Glucose, | 95Comment: Testing | 65 - 99 mg/dL | EXTERNAL | | | Fingerstick | performed at [facility];[address] | | LAB | | | | [address];[place], [place] | | | | | | [address] | | | | + + + + + + + + | Specimen | + + | | + + + +---------+ + + | Performing | Address | City/State/Zipcode | Phone Number | | Organization | | | | + +---------+ + + | EXTERNAL LAB | | | | + +---------+ + + POC Glucose (01/15/2015 12:10 AM PDT) + + + + + + | Component | Value | Ref Range | Performed | Pathologist | | | | | At | Signature | + + + + + + | Glucose, | 103 (H)Comment: Testing | 65 - 99 mg/dL | EXTERNAL | | | Fingerstick | performed at [facility];[address] | | LAB | | | | [address];[place] | | | | | | [address] | | | | + + + + + + + + | Specimen | + + | | + + + +---------+ + + | Performing | Address | City/State/Zipcode | Phone Number | | Organization | | | | + +---------+ + + | EXTERNAL LAB | | | | + +---------+ + + POC Glucose (01/14/2015 11:07 PM PDT) + + + + + + | Component | Value | Ref Range | Performed | Pathologist | | | | | At | Signature | + + + + + + | Glucose, | 108 (H)Comment: Testing | 65 - 99 mg/dL | EXTERNAL | | | Fingerstick | performed at [facility];[address] | | LAB | | | | [address];[place], [place] | | | | | | [address] | | | | + + + + + + + + | Specimen | + + | | + + + +---------+ + + | Performing | Address | City/State/Zipcode | Phone Number | | Organization | | | | + +---------+ + + | EXTERNAL LAB | | | | + +---------+ + + POC Glucose (01/14/2015 8:50 PM PDT) + + + + + + | Component | Value | Ref Range | Performed | Pathologist | | | | | At | Signature | + + + + + + | Glucose, | 111 (H)Comment: Testing | 65 - 99 mg/dL | EXTERNAL | | | Fingerstick | performed at [facility] | | LAB | | | | [address];[place], [place] | | | | | | [address] | | | | + + + + + + + + | Specimen | + + | | + + + +---------+ + + | Performing | Address | City/State/Zipcode | Phone Number | | Organization | | | | + +---------+ + + | EXTERNAL LAB | | | | + +---------+ + + Potassium (01/14/2015 6:58 PM PDT) + + + + + + | Component | Value | Ref Range | Performed | Pathologist | | | | | At | Signature | + + + + + + | K | 3.0 (L)Comment: Testing | 3.5 - 4.9 | EXTERNAL | | | | performed at [facility], [address] | mmol/L | LAB | | | | [address], | | | | | | [place] [address] | | | | + + + + + + + + | Specimen | + + | Blood specimen | | (specimen) | + + + +---------+ + + | Performing | Address | City/State/Zipcode | Phone Number | | Organization | | | | + +---------+ + + | EXTERNAL LAB | | | | + +---------+ + + Phosphorus (01/14/2015 6:58 PM PDT) + + + + + + | Component | Value | Ref Range | Performed | Pathologist | | | | | At | Signature | + + + + + + | PHOSPHORUS | 2.3Comment: Testing | 2.3 - 4.8 mg/dL | EXTERNAL | | | | performed at [facility], [address] | | LAB | | | | [address], | | | | | | [place] [address] | | | | + + + + + + + + | Specimen | + + | Blood specimen | | (specimen) | + + + +---------+ + + | Performing | Address | City/State/Zipcode | Phone Number | | Organization | | | | + +---------+ + + | EXTERNAL LAB | | | | + +---------+ + + Magnesium (01/14/2015 6:58 PM PDT) + + + + + + | Component | Value | Ref Range | Performed | Pathologist | | | | | At | Signature | + + + + + + | Magnesium | 2.0Comment: Testing | 1.7 - 2.4 mg/dL | EXTERNAL | | | | performed at [facility], [address] | | LAB | | | | [address], | | | | | | [place] [address] | | | | + + + + + + + + | Specimen | + + | Blood specimen | | (specimen) | + + + +---------+ + + | Performing | Address | City/State/Zipcode | Phone Number | | Organization | | | | + +---------+ + + | EXTERNAL LAB | | | | + +---------+ + + POC Glucose (01/14/2015 6:23 PM PDT) + + + + + + | Component | Value | Ref Range | Performed | Pathologist | | | | | At | Signature | + + + + + + | Glucose, | 106 (H)Comment: Testing | 65 - 99 mg/dL | EXTERNAL | | | Fingerstick | performed at [facility];[address] | | LAB | | | | [address];[place] | | | | | | [address] | | | | + + + + + + + + | Specimen | + + | | + + + +---------+ + + | Performing | Address | City/State/Zipcode | Phone Number | | Organization | | | | + +---------+ + + | EXTERNAL LAB | | | | + +---------+ + + POC Glucose (01/14/2015 4:15 PM PDT) + + + + + + | Component | Value | Ref Range | Performed | Pathologist | | | | | At | Signature | + + + + + + | Glucose, | 119 (H)Comment: Testing | 65 - 99 mg/dL | EXTERNAL | | | Fingerstick | performed at [facility];[address] | | LAB | | | | [address];[place] | | | | | | [address] | | | | + + + + + + + + | Specimen | + + | | + + + +---------+ + + | Performing | Address | City/State/Zipcode | Phone Number | | Organization | | | | + +---------+ + + | EXTERNAL LAB | | | | + +---------+ + + POC Glucose (01/14/2015 2:00 PM PDT) + + + + + + | Component | Value | Ref Range | Performed | Pathologist | | | | | At | Signature | + + + + + + | Glucose, | 118 (H)Comment: Testing | 65 - 99 mg/dL | EXTERNAL | | | Fingerstick | performed at [facility];[address] | | LAB | | | | [address];[place], [place] | | | | | | [address] | | | | + + + + + + + + | Specimen | + + | | + + + +---------+ + + | Performing | Address | City/State/Zipcode | Phone Number | | Organization | | | | + +---------+ + + | EXTERNAL LAB | | | | + +---------+ + + POC Glucose (01/14/2015 11:51 AM PDT) + + + + + + | Component | Value | Ref Range | Performed | Pathologist | | | | | At | Signature | + + + + + + | Glucose, | 100 (H)Comment: Testing | 65 - 99 mg/dL | EXTERNAL | | | Fingerstick | performed at [facility];[address] | | LAB | | | | [address];[place], [place] | | | | | | [address] | | | | + + + + + + + + | Specimen | + + | | + + + +---------+ + + | Performing | Address | City/State/Zipcode | Phone Number | | Organization | | | | + +---------+ + + | EXTERNAL LAB | | | | + +---------+ + + POC Glucose (01/14/2015 9:47 AM PDT) + + + + + + | Component | Value | Ref Range | Performed | Pathologist | | | | | At | Signature | + + + + + + | Glucose, | 124 (H)Comment: Testing | 65 - 99 mg/dL | EXTERNAL | | | Fingerstick | performed at [facility];[address] | | LAB | | | | [address];[place], [place] | | | | | | [address] | | | | + + + + + + + + | Specimen | + + | | + + + +---------+ + + | Performing | Address | City/State/Zipcode | Phone Number | | Organization | | | | + +---------+ + + | EXTERNAL LAB | | | | + +---------+ + + POC Glucose (01/14/2015 7:40 AM PDT) + + + + + + | Component | Value | Ref Range | Performed | Pathologist | | | | | At | Signature | + + + + + + | Glucose, | 112 (H)Comment: Testing | 65 - 99 mg/dL | EXTERNAL | | | Fingerstick | performed at [facility];[address] | | LAB | | | | [address];[place] | | | | | | [address] | | | | + + + + + + + + | Specimen | + + | | + + + +---------+ + + | Performing | Address | City/State/Zipcode | Phone Number | | Organization | | | | + +---------+ + + | EXTERNAL LAB | | | | + +---------+ + + XR Chest 1 Vw (01/14/2015 5:39 AM PDT) + + | Specimen | + + | | + + + + + | Impressions | Performed At | + + + | 1. Stable extensive airspace disease in right mid and lower lung. | | | 2. Stable mild left basal atelectasis and/or airspace disease. | | | | | + + + + + + | Narrative | Performed At | + + + | JOSE EATON XR CHEST 1 VIEW HISTORY: 64 years. Male. | | | Evaluate tubes and lines. TECHNIQUE: Single portable anterior | | | view of the chest was obtained. COMPARISON: 01/13/2015 | | | FINDINGS: The heart is mildly enlarged. Endotracheal tube and | | | nasogastric tube are in stable position. Right IJ central venous | | | catheter and right-sided Mediport catheter in stable position. | | | Extensive airspace disease within the right mid and lower lung, | | | stable. Stable mild left basilar atelectasis and/or airspace | | | disease. | | + + + + + | Procedure Note | + + | Frederic, Rad Conversion - 11/10/2018 8:48 AM PDT [facility] T[facility]ER[facility] CHEST 1 VIEW | | HISTORY:64 years. Male. Evaluate tubes and lines. TECHNIQUE:Single portable anterior | | view of the chest was obtained. COMPARISON:01/13/2015 FINDINGS:The heart is mildly | | enlarged. Endotracheal tube and nasogastric tube are in stable position. Right IJ | | central venous catheter and right-sided Mediport catheter in stable position. Extensive | | airspace disease within the right mid and lower lung, stable. Stable mild left basilar | | atelectasis and/or airspace disease. IMPRESSION: 1. Stable extensive airspace disease | | in right mid and lower lung.2. Stable mild left basal atelectasis and/or airspace | | disease. | |COMPARISON: | |01/13/2015 | | | |FINDINGS: | |The heart is mildly enlarged. Endotracheal tube and nasogastric tube are in stable position . Right IJ central venous catheter and right-sided Mediport catheter in stable position. Ext ensive airspace disease within the right mid and lower lung, stable. | |Stable mild left basilar atelectasis and/or airspace disease. | | | |IMPRESSION: | |1. Stable extensive airspace disease in right mid and lower lung. | |2. Stable mild left basal atelectasis and/or airspace disease. | | | | | + + POC Glucose (01/14/2015 5:36 AM PDT) + + + + + + | Component | Value | Ref Range | Performed | Pathologist | | | | | At | Signature | + + + + + + | Glucose, | 117 (H)Comment: Testing | 65 - 99 mg/dL | EXTERNAL | | | Fingerstick | performed at [facility];[address] | | LAB | | | | [address];[place], [place] | | | | | | [address] | | | | + + + + + + + + | Specimen | + + | | + + + +---------+ + + | Performing | Address | City/State/Zipcode | Phone Number | | Organization | | | | + +---------+ + + | EXTERNAL LAB | | | | + +---------+ + + External Lab: CBC (01/14/2015 5:14 AM PDT) + + + + + + | Component | Value | Ref Range | Performed | Pathologist | | | | | At | Signature | + + + + + + | WBC | 11.00Comment: Testing | 3.80 - 11.00 | EXTERNAL | | | | performed at [facility];[address] | K/uL | LAB | | | | [address];[place] | | | | | | [address] | | | | + + + + + + | RED CELL | 2.58 (L)Comment: Testing | 4.20 - 5.70 | EXTERNAL | | | COUNT | performed at [facility];[address] | M/uL | LAB | | | | [address];[place] | | | | | | [address] | | | | + + + + + + | Hgb | 8.3 (L)Comment: Testing | 13.2 - 17.0 | EXTERNAL | | | | performed at [facility];[address] | g/dL | LAB | | | | [address];[place] | | | | | | [address] | | | | + + + + + + | Hematocrit, | 25.3 (L)Comment: Testing | 39.0 - 50.0 % | EXTERNAL | | | POC | performed at [facility];888 | | LAB | | | | [address];[place] | | | | | | [id number] | | | | + + + + + + | MCV | 97.9Comment: Testing | 80.0 - 100.0 fl | EXTERNAL | | | | performed at [facility];888 | | LAB | | | | [address];[place] | | | | | | [id number] | | | | + + + + + + | MCH | 32.0Comment: Testing | 27.0 - 34.0 pg | EXTERNAL | | | | performed at [facility];888 | | LAB | | | | [address];[place] | | | | | | [id number] | | | | + + + + + + | MCHC | 32.7Comment: Testing | 32.0 - 35.5 | EXTERNAL | | | | performed at [facility];888 | g/dL | LAB | | | | [address];[place] | | | | | | [id number] | | | | + + + + + + | RDW-CV | 42.4Comment: Testing | 37 - 53 fl | EXTERNAL | | | | performed at [facility];888 | | LAB | | | | [address];[place] | | | | | | [id number] | | | | + + + + + + | Platelet | 121 (L)Comment: Testing | 150 - 400 K/uL | EXTERNAL | | | Count | performed at [facility];888 | | LAB | | | Plasma | [address];[place] | | | | | | [id number] | | | | + + + + + + | MPV | 8.9Comment: Testing | fl | EXTERNAL | | | | performed at [facility];888 | | LAB | | | | [address];[place] | | | | | | [address] | | | | + + + + + + | Differentia | MANUALComment: Testing | | EXTERNAL | | | l Type | performed at [facility];[address] | | LAB | | | | [address];[place] | | | | | | [address] | | | | + + + + + + | Segmented | 82Comment: Testing | % | EXTERNAL | | | Neutrophils | performed at [facility];[address] | | LAB | | | Manual | [address];[place] | | | | | | [address] | | | | + + + + + + | % Bands | 8Comment: Testing | % | EXTERNAL | | | | performed at [facility];[address] | | LAB | | | | [address];[place] | | | | | | [address] | | | | + + + + + + | Lymphocytes | 7Comment: Testing | % | EXTERNAL | | | Manual | performed at [facility];[address] | | LAB | | | | [address];[place] | | | | | | [address] | | | | + + + + + + | Monocytes | 3Comment: Testing | % | EXTERNAL | | | Manual | performed at [facility];[address] | | LAB | | | | [address];[place] | | | | | | [address] | | | | + + + + + + | Absolute | 9.02 (H)Comment: Testing | 1.90 - 7.40 | EXTERNAL | | | Neutrophils | performed at [facility];[address] | K/uL | LAB | | | | [address];[place] | | | | | | [address] | | | | + + + + + + | Bands | 0.88 (H)Comment: Testing | 0.00 - 0.20 | EXTERNAL | | | Manual | performed at [facility];[address] | K/uL | LAB | | | | [address];[place] | | | | | | [address] | | | | + + + + + + | Absolute | 0.77 (L)Comment: Testing | 1.00 - 3.90 | EXTERNAL | | | Lymphocytes | performed at [facility];[address] | K/uL | LAB | | | | [address];[place] | | | | | | [address] | | | | + + + + + + | Absolute | 0.33Comment: Testing | 0.00 - 0.80 | EXTERNAL | | | Monocytes | performed at [facility];[address] | K/uL | LAB | | | | [address];[place] | | | | | | [address] | | | | + + + + + + | Platelet | DECREASEDComment: | | EXTERNAL | | | Estimate | Testing performed at | | LAB | | | | [facility];[address];[place] [address] | | | | + + + + + + | RBC | RBC AND PLT MORPHOLOGY | | EXTERNAL | | | Morphology | APPEAR NORMALComment: | | LAB | | | | Testing performed at | | | | | | [facility];[address];[place] [address] | | | | + + + + + + + + | Specimen | + + | Blood specimen | | (specimen) | + + + +---------+ + + | Performing | Address | City/State/Zipcode | Phone Number | | Organization | | | | + +---------+ + + | EXTERNAL LAB | | | | + +---------+ + + Phosphorus (01/14/2015 5:14 AM PDT) + + + + + + | Component | Value | Ref Range | Performed | Pathologist | | | | | At | Signature | + + + + + + | PHOSPHORUS | 1.6 (L)Comment: Testing | 2.3 - 4.8 mg/dL | EXTERNAL | | | | performed at [facility];[address] | | LAB | | | | [address];[place], [place] | | | | | | [address] | | | | + + + + + + + + | Specimen | + + | Blood specimen | | (specimen) | + + + +---------+ + + | Performing | Address | City/State/Zipcode | Phone Number | | Organization | | | | + +---------+ + + | EXTERNAL LAB | | | | + +---------+ + + Magnesium (01/14/2015 5:14 AM PDT) + + + + + + | Component | Value | Ref Range | Performed | Pathologist | | | | | At | Signature | + + + + + + | Magnesium | 2.3Comment: Testing | 1.7 - 2.4 mg/dL | EXTERNAL | | | | performed at [facility];[address] | | LAB | | | | [address] [facility];[place], [place] | | | | | | [address] | | | | + + + [...] + +---------+ + + Basic Metabolic Panel (01/14/2015 5:14 AM PDT) + + + + + + | Component | Value | Ref Range | Performed | Pathologist | | | | | At | Signature | + + + + + + | Na | 137Comment: Testing | 135 - 143 | EXTERNAL | | | | performed at [facility];888 | mmol/L | LAB | | | | [address];[place] | | | | | | [address] | | | | + + + + + + | K | 3.2 (L)Comment: Testing | 3.5 - 4.9 | EXTERNAL | | | | performed at [facility];888 | mmol/L | LAB | | | | [address];[place] | | | | | | [address] | | | | + + + + + + | Cl | 107Comment: Testing | 99 - 109 mmol/L | EXTERNAL | | | | performed at [facility];[address] | | LAB | | | | [address];[place] | | | | | | [address] | | | | + + + + + + | CO2 | 25Comment: Testing | 23 - 32 mmol/L | EXTERNAL | | | | performed at [facility];[address] | | LAB | | | | [address];[place] | | | | | | [address] | | | | + + + + + + | Anion Gap | 9Comment: Testing | 5 - 20 mmol/L | EXTERNAL | | | | performed at [facility];[address] | | LAB | | | | [address];[place] | | | | | | [address] | | | | + + + + + + | Glucose, | 111 (H)Comment: Testing | 65 - 99 mg/dL | EXTERNAL | | | Fasting | performed at [facility];[address] | | LAB | | | | [address];[place] | | | | | | [address] | | | | + + + + + + | BUN | 26 (H)Comment: Testing | 8 - 25 mg/dL | EXTERNAL | | | | performed at [facility];[address] | | LAB | | | | [address];[place] | | | | | | [address] | | | | + + + + + + | Creatinine | 0.76Comment: Testing | 0.70 - 1.30 | EXTERNAL | | | | performed at [facility];888 | mg/dL | LAB | | | | [address];[place] | | | | | | [address] | | | | + + + + + + | BUN/Creatin | 34Comment: Testing | | EXTERNAL | | | ine Ratio | performed at [facility];[address] | | LAB | | | | [address];[place] | | | | | | [address] | | | | + + + + + + | Calcium | 7.5 (L)Comment: Testing | 8.5 - 10.5 | EXTERNAL | | | | performed at [facility];888 | mg/dL | LAB | | | | [address];[place] | | | | | | [address] | | | | + + + [...] | | | | | | at [facility];[address] | | | [address];[place] [address] | | | | + + + + + + + + | Specimen | + + | Blood specimen | | (specimen) | + + + +---------+ + + | Performing | Address | City/State/Zipcode | Phone Number | | Organization | | | | + +---------+ + + | EXTERNAL LAB | | | | + +---------+ + + POC Glucose (01/14/2015 3:30 AM PDT) + + + + + + | Component | Value | Ref Range | Performed | Pathologist | | | | | At | Signature | + + + + + + | Glucose, | 125 (H)Comment: Testing | 65 - 99 mg/dL | EXTERNAL | | | Fingerstick | performed at [facility];[address] | | LAB | | | | [address];[place] | | | | | | [address] | | | | + + + + + + + + | Specimen | + + | | + + + +---------+ + + | Performing | Address | City/State/Zipcode | Phone Number | | Organization | | | | + +---------+ + + | EXTERNAL LAB | | | | + +---------+ + + POC Glucose (01/14/2015 2:23 AM PDT) + + + + + + | Component | Value | Ref Range | Performed | Pathologist | | | | | At | Signature | + + + + + + | Glucose, | 134 (H)Comment: Testing | 65 - 99 mg/dL | EXTERNAL | | | Fingerstick | performed at [facility];[address] | | LAB | | | | [address];[place] | | | | | | [address] | | | | + + + + + + + + | Specimen | + + | | + + + +---------+ + + | Performing | Address | City/State/Zipcode | Phone Number | | Organization | | | | + +---------+ + + | EXTERNAL LAB | | | | + +---------+ + + POC Glucose (01/14/2015 1:21 AM PDT) + + + + + + | Component | Value | Ref Range | Performed | Pathologist | | | | | At | Signature | + + + + + + | Glucose, | 113 (H)Comment: Testing | 65 - 99 mg/dL | EXTERNAL | | | Fingerstick | performed at [facility];[address] | | LAB | | | | [address];[place], [place] | | | | | | [address] | | | | + + + + + + + + | Specimen | + + | | + + + +---------+ + + | Performing | Address | City/State/Zipcode | Phone Number | | Organization | | | | + +---------+ + + | EXTERNAL LAB | | | | + +---------+ + + POC Glucose (01/13/2015 11:45 PM PDT) + + + + + + | Component | Value | Ref Range | Performed | Pathologist | | | | | At | Signature | + + + + + + | Glucose, | 75Comment: Testing | 65 - 99 mg/dL | EXTERNAL | | | Fingerstick | performed at [facility];8 | | LAB | | | | [address];[place], [place] | | | | | | [address] | | | | + + + + + + + + | Specimen | + + | | + + + +---------+ + + | Performing | Address | City/State/Zipcode | Phone Number | | Organization | | | | + +---------+ + + | EXTERNAL LAB | | | | + +---------+ + + POC Glucose (01/13/2015 10:55 PM PDT) + + + + + + | Component | Value | Ref Range | Performed | Pathologist | | | | | At | Signature | + + + + + + | Glucose, | 72Comment: Testing | 65 - 99 mg/dL | EXTERNAL | | | Fingerstick | performed at [facility];[address] | | LAB | | | | [address];[place], [place] | | | | | | [address] | | | | + + + + + + + + | Specimen | + + | | + + + +---------+ + + | Performing | Address | City/State/Zipcode | Phone Number | | Organization | | | | + +---------+ + + | EXTERNAL LAB | | | | + +---------+ + + POC Glucose (01/13/2015 9:45 PM PDT) + + + + + + | Component | Value | Ref Range | Performed | Pathologist | | | | | At | Signature | + + + + + + | Glucose, | 185 (H)Comment: Testing | 65 - 99 mg/dL | EXTERNAL | | | Fingerstick | performed at [facility];[address] | | LAB | | | | [address];[place] | | | | | | [address] | | | | + + + + + + + + | Specimen | + + | | + + + +---------+ + + | Performing | Address | City/State/Zipcode | Phone Number | | Organization | | | | + +---------+ + + | EXTERNAL LAB | | | | + +---------+ + + POC Glucose (01/13/2015 8:42 PM PDT) + + + + + + | Component | Value | Ref Range | Performed | Pathologist | | | | | At | Signature | + + + + + + | Glucose, | 111 (H)Comment: Testing | 65 - 99 mg/dL | EXTERNAL | | | Fingerstick | performed at [facility];[address] | | LAB | | | | [address];[place] | | | | | | [address] | | | | + + + + + + + + | Specimen | + + | | + + + +---------+ + + | Performing | Address | City/State/Zipcode | Phone Number | | Organization | | | | + +---------+ + + | EXTERNAL LAB | | | | + +---------+ + + POC Glucose (01/13/2015 7:39 PM PDT) + + + + + + | Component | Value | Ref Range | Performed | Pathologist | | | | | At | Signature | + + + + + + | Glucose, | 148 (H)Comment: Testing | 65 - 99 mg/dL | EXTERNAL | | | Fingerstick | performed at [facility];[address] | | LAB | | | | [address];[place] | | | | | | [address] | | | | + + + + + + + + | Specimen | + + | | + + + +---------+ + + | Performing | Address | City/State/Zipcode | Phone Number | | Organization | | | | + +---------+ + + | EXTERNAL LAB | | | | + +---------+ + + POC Glucose (01/13/2015 6:35 PM PDT) + + + + + + | Component | Value | Ref Range | Performed | Pathologist | | | | | At | Signature | + + + + + + | Glucose, | 155 (H)Comment: Testing | 65 - 99 mg/dL | EXTERNAL | | | Fingerstick | performed at [facility];[address] | | LAB | | | | [address];[place], [place] | | | | | | [address] | | | | + + + + + + + + | Specimen | + + | | + + + +---------+ + + | Performing | Address | City/State/Zipcode | Phone Number | | Organization | | | | + +---------+ + + | EXTERNAL LAB | | | | + +---------+ + + POC Glucose (01/13/2015 5:38 PM PDT) + + + + + + | Component | Value | Ref Range | Performed | Pathologist | | | | | At | Signature | + + + + + + | Glucose, | 136 (H)Comment: Testing | 65 - 99 mg/dL | EXTERNAL | | | Fingerstick | performed at [facility];[address] | | LAB | | | | [address];[place] | | | | | | [address] | | | | + + + + + + + + | Specimen | + + | | + + + +---------+ + + | Performing | Address | City/State/Zipcode | Phone Number | | Organization | | | | + +---------+ + + | EXTERNAL LAB | | | | + +---------+ + + Culture, Blood, 2nd Specimen (01/13/2015 4:37 PM PDT) + + | Specimen | + + | Blood specimen | | (specimen) | + + + + + | Narrative | Performed At | + + + | Specimen Description BLOOD, PERIPHERAL DRAW | EXTERNAL LAB | | CULTURE NO GROWTH | | | Testing performed at [facility], | | | [address] [place] [address] | | + + + + +---------+ + + | Performing | Address | City/State/Zipcode | Phone Number | | Organization | | | | + +---------+ + + | EXTERNAL LAB | | | | + +---------+ + + POC Glucose (01/13/2015 4:33 PM PDT) + + + + + + | Component | Value | Ref Range | Performed | Pathologist | | | | | At | Signature | + + + + + + | Glucose, | 147 (H)Comment: Testing | 65 - 99 mg/dL | EXTERNAL | | | Fingerstick | performed at [facility];[address] | | LAB | | | | [address];[place] | | | | | | [address] | | | | + + + + + + + + | Specimen | + + | | + + + +---------+ + + | Performing | Address | City/State/Zipcode | Phone Number | | Organization | | | | + +---------+ + + | EXTERNAL LAB | | | | + +---------+ + + Culture, Blood (01/13/2015 4:33 PM PDT) + + | Specimen | + + | Blood specimen | | (specimen) | + + + + + | Narrative | Performed At | + + + | Specimen Description BLOOD, PERIPHERAL DRAW | EXTERNAL LAB | | CULTURE NO GROWTH | | | Testing performed at [facility], | | | [address] [place] [address] | | + + + + +---------+ + + | Performing | Address | City/State/Zipcode | Phone Number | | Organization | | | | + +---------+ + + | EXTERNAL LAB | | | | + +---------+ + + POC Glucose (01/13/2015 3:25 PM PDT) + + + + + + | Component | Value | Ref Range | Performed | Pathologist | | | | | At | Signature | + + + + + + | Glucose, | 130 (H)Comment: Testing | 65 - 99 mg/dL | EXTERNAL | | | Fingerstick | performed at [facility];[address] | | LAB | | | | [address];[place] | | | | | | [address] | | | | + + + + + + + + | Specimen | + + | | + + + +---------+ + + | Performing | Address | City/State/Zipcode | Phone Number | | Organization | | | | + +---------+ + + | EXTERNAL LAB | | | | + +---------+ + + POC Glucose (01/13/2015 2:22 PM PDT) + + + + + + | Component | Value | Ref Range | Performed | Pathologist | | | | | At | Signature | + + + + + + | Glucose, | 142 (H)Comment: Testing | 65 - 99 mg/dL | EXTERNAL | | | Fingerstick | performed at [facility];[address] | | LAB | | | | [address];[place] | | | | | | [address] | | | | + + + + + + + + | Specimen | + + | | + + + +---------+ + + | Performing | Address | City/State/Zipcode | Phone Number | | Organization | | | | + +---------+ + + | EXTERNAL LAB | | | | + +---------+ + + POC Glucose (01/13/2015 12:52 PM PDT) + + + + + + | Component | Value | Ref Range | Performed | Pathologist | | | | | At | Signature | + + + + + + | Glucose, | 171 (H)Comment: Testing | 65 - 99 mg/dL | EXTERNAL | | | Fingerstick | performed at [facility];[address] | | LAB | | | | [address];[place] | | | | | | [address] | | | | + + + + + + + + | Specimen | + + | | + + + +---------+ + + | Performing | Address | City/State/Zipcode | Phone Number | | Organization | | | | + +---------+ + + | EXTERNAL LAB | | | | + +---------+ + + POC Glucose (01/13/2015 11:31 AM PDT) + + + + + + | Component | Value | Ref Range | Performed | Pathologist | | | | | At | Signature | + + + + + + | Glucose, | 159 (H)Comment: Testing | 65 - 99 mg/dL | EXTERNAL | | | Fingerstick | performed at [facility];[address] | | LAB | | | | [address];[place], [place] | | | | | | [address] | | | | + + + + + + + + | Specimen | + + | | + + + +---------+ + + | Performing | Address | City/State/Zipcode | Phone Number | | Organization | | | | + +---------+ + + | EXTERNAL LAB | | | | + +---------+ + + POC Glucose (01/13/2015 10:22 AM PDT) + + + + + + | Component | Value | Ref Range | Performed | Pathologist | | | | | At | Signature | + + + + + + | Glucose, | 145 (H)Comment: Testing | 65 - 99 mg/dL | EXTERNAL | | | Fingerstick | performed at [facility];[address] | | LAB | | | | [address];[place], [place] | | | | | | [address] | | | | + + + + + + + + | Specimen | + + | | + + + +---------+ + + | Performing | Address | City/State/Zipcode | Phone Number | | Organization | | | | + +---------+ + + | EXTERNAL LAB | | | | + +---------+ + + POC Glucose (01/13/2015 9:17 AM PDT) + + + + + + | Component | Value | Ref Range | Performed | Pathologist | | | | | At | Signature | + + + + + + | Glucose, | 174 (H)Comment: Testing | 65 - 99 mg/dL | EXTERNAL | | | Fingerstick | performed at [facility] | | LAB | | | | [address];[place] | | | | | | [address] | | | | + + + + + + + + | Specimen | + + | | + + + +---------+ + + | Performing | Address | City/State/Zipcode | Phone Number | | Organization | | | | + +---------+ + + | EXTERNAL LAB | | | | + +---------+ + + POC Glucose (01/13/2015 8:12 AM PDT) + + + + + + | Component | Value | Ref Range | Performed | Pathologist | | | | | At | Signature | + + + + + + | Glucose, | 167 (H)Comment: Testing | 65 - 99 mg/dL | EXTERNAL | | | Fingerstick | performed at [facility];[address] | | LAB | | | | [address];[place] | | | | | | [address] | | | | + + + + + + + + | Specimen | + + | | + + + +---------+ + + | Performing | Address | City/State/Zipcode | Phone Number | | Organization | | | | + +---------+ + + | EXTERNAL LAB | | | | + +---------+ + + POC Glucose (01/13/2015 6:44 AM PDT) + + + + + + | Component | Value | Ref Range | Performed | Pathologist | | | | | At | Signature | + + + + + + | Glucose, | 211 (H)Comment: Testing | 65 - 99 mg/dL | EXTERNAL | | | Fingerstick | performed at [facility];[address] | | LAB | | | | [address];[place] | | | | | | [address] | | | | + + + + + + + + | Specimen | + + | | + + + +---------+ + + | Performing | Address | City/State/Zipcode | Phone Number | | Organization | | | | + +---------+ + + | EXTERNAL LAB | | | | + +---------+ + + XR Chest 1 Vw (01/13/2015 5:53 AM PDT) + + | Specimen | + + | | + + + + + | Impressions | Performed At | + + + | 1. Stable right perihilar and basilar airspace disease. 2. Mild | | | stable left basilar opacity to likely represent subsegmental | | | atelectasis. Electronically signed by Arturo Mariano DO on | | | 01/13/2015 8:04 AM | | + + + + + + | Narrative | Performed At | + + + | [facility] XR CHEST 1 VIEW HISTORY: 64 years. Male. | | | Evaluate tubes and lines. TECHNIQUE: Single portable anterior | | | view of the chest was obtained. COMPARISON: 01/12/2015 | | | FINDINGS: Right-sided Mediport catheter tip located in region | | | superior vena cava. Right IJ central venous catheter, endotracheal | | | tube, nasogastric tube are in stable position. The heart is mildly | | | enlarged but stable in size. Low lung volumes. No pneumothorax. | | | Stable left basilar opacity to likely represent subsegmental | | | atelectasis. Patchy right perihilar and basilar airspace disease, | | | stable | | + + + + + | Procedure Note | + + | Frederic, Rad Conversion - 11/10/2018 8:48 AM PDT JO[facility] UMAXR CHEST 1 VIEW | | HISTORY:64 years. Male. Evaluate tubes and lines. TECHNIQUE:Single portable anterior | | view of the chest was obtained. COMPARISON:01/12/2015 FINDINGS:Right-sided Mediport | | catheter tip located in region superior vena cava. Right IJ central venous catheter, | | endotracheal tube, nasogastric tube are in stable position. The heart is mildly enlarged | | but stable in size. Low lung volumes. No pneumothorax. Stable left basilar opacity to | | likely represent subsegmental atelectasis. Patchy right perihilar and basilar airspace | | disease, stable IMPRESSION: 1. Stable right perihilar and basilar airspace disease.2. | | Mild stable left basilar opacity to likely represent subsegmental atelectasis. | | | |01/12/2015 | | | |FINDINGS: | |Right-sided Mediport catheter tip located in region superior vena cava. Right IJ central ve nous catheter, endotracheal tube, nasogastric tube are in stable position. The heart is mild ly enlarged but stable in size. Low lung volumes. No pneumothorax. | |Stable left basilar opacity to likely represent subsegmental atelectasis. Patchy right oliva hilar and basilar airspace disease, stable | | | |IMPRESSION: | |1. Stable right perihilar and basilar airspace disease. | |2. Mild stable left basilar opacity to likely represent subsegmental atelectasis. | | | | | + + POC Glucose (01/13/2015 5:41 AM PDT) + + + + + + | Component | Value | Ref Range | Performed | Pathologist | | | | | At | Signature | + + + + + + | Glucose, | 160 (H)Comment: Testing | 65 - 99 mg/dL | EXTERNAL | | | Fingerstick | performed at [facility];[address] | | LAB | | | | [address];[place], [place] | | | | | | [address] | | | | + + + + + + + + | Specimen | + + | | + + + +---------+ + + | Performing | Address | City/State/Zipcode | Phone Number | | Organization | | | | + +---------+ + + | EXTERNAL LAB | | | | + +---------+ + + POC Glucose (01/13/2015 4:27 AM PDT) + + + + + + | Component | Value | Ref Range | Performed | Pathologist | | | | | At | Signature | + + + + + + | Glucose, | 137 (H)Comment: Testing | 65 - 99 mg/dL | EXTERNAL | | | Fingerstick | performed at [facility];[address] | | LAB | | | | [address];[place], [place] | | | | | | [address] | | | | + + + + + + + + | Specimen | + + | | + + + +---------+ + + | Performing | Address | City/State/Zipcode | Phone Number | | Organization | | | | + +---------+ + + | EXTERNAL LAB | | | | + +---------+ + + External Lab: KARI (01/13/2015 3:56 AM PDT) + + + + + + | Component | Value | Ref Range | Performed | Pathologist | | | | | At | Signature | + + + + + + | WBC | 10.57Comment: Testing | 3.80 - 11.00 | EXTERNAL | | | | performed at [facility], [address] | K/uL | LAB | | | | [address], | | | | | | [place] [address] | | | | + + + + + + | RED CELL | 2.49 (L)Comment: Testing | 4.20 - 5.70 | EXTERNAL | | | COUNT | performed at [facility], [address] | M/[address]L | LAB | | | | [address], | | | | | | [place] [address] | | | | + + + + + + | Hgb | 8.4 (L)Comment: Testing | 13.2 - 17.0 | EXTERNAL | | | | performed at [facility], [address] | g/dL | LAB | | | | [address], | | | | | | [place] [address] | | | | + + + + + + | Hematocrit, | 24.4 (L)Comment: Testing | 39.0 - 50.0 % | EXTERNAL | | | POC | performed at [facility], [address] | | LAB | | | | [address], | | | | | | [place] [address] | | | | + + + + + + | MCV | 97.8Comment: Testing | 80.0 - 100.0 fl | EXTERNAL | | | | performed at [facility], [address] | | LAB | | | | [address], | | | | | | [place] [address] | | | | + + + + + + | MCH | 33.8Comment: Testing | 27.0 - 34.0 pg | EXTERNAL | | | | performed at [facility], [address] | | LAB | | | | [address], | | | | | | [place] [address] | | | | + + + + + + | MCHC | 34.5Comment: Testing | 32.0 - 35.5 | EXTERNAL | | | | performed at [facility], [address] | g/dL | LAB | | | | [address], | | | | | | [place] [address] | | | | + + + + + + | RDW-CV | 41.6Comment: Testing | 37 - 53 fl | EXTERNAL | | | | performed at [facility], [address] | | LAB | | | | [address], | | | | | | [place] [address] | | | | + + + + + + | Platelet | 154Comment: Testing | 150 - 400 K/uL | EXTERNAL | | | Count | performed at [facility], [address] | | LAB | | | Plasma | [address], | | | | | | [place] [address] | | | | + + + + + + | MPV | 8.5Comment: Testing | fl | EXTERNAL | | | | performed at [facility], [address] | | LAB | | | | [address], | | | | | | [place] [address] | | | | + + + + + + | Differentia | MANUALComment: Testing | | EXTERNAL | | | l Type | performed at [facility], [address] | | LAB | | | | [address], | | | | | | [place] [address] | | | | + + + + + + | Segmented | 65Comment: Testing | % | EXTERNAL | | | Neutrophils | performed at [facility], [address] | | LAB | | | Manual | [address], | | | | | | [place] [address] | | | | + + + + + + | % Bands | 32Comment: Testing | % | EXTERNAL | | | | performed at [facility], [address] | | LAB | | | | [address], | | | | | | [place] [address] | | | | + + + + + + | % | 2Comment: Testing | % | EXTERNAL | | | Metamyelocy | performed at [facility], [address] | | LAB | | | [address], | | | | | | [place] [address] | | | | + + + + + + | Lymphocytes | 1Comment: Testing | % | EXTERNAL | | | Manual | performed at [facility], [address] | | LAB | | | | [address], | | | | | | [place] [address] | | | | + + + + + + | Absolute | 6.87Comment: Testing | 1.90 - 7.40 | EXTERNAL | | | Neutrophils | performed at [facility], [address] | [address] | LAB | | | | [address], | | | | | | [place] [address] | | | | + + + + + + | Bands | 3.38 (H)Comment: Testing | 0.00 - 0.20 | EXTERNAL | | | Manual | performed at [facility], [address] | [address] | LAB | | | | [address], | | | | | | [place] [address] | | | | + + + + + + | Absolute | 0.21 (H)Comment: Testing | K/uL | EXTERNAL | | | Metamyelocy | performed at [facility], [address] | | LAB | | | [address] | [address], | | | | | | [place] [address] | | | | + + + + + + | Absolute | 0.11 (L)Comment: Testing | 1.00 - 3.90 | EXTERNAL | | | Lymphocytes | performed at [facility], [address] | [address] | LAB | | | | [address], | | | | | | [place] [address] | | | | + + + + + + | RBC | RBC AND PLT MORPHOLOGY | | EXTERNAL | | | Morphology | APPEAR NORMALComment: | | LAB | | | | Testing performed at | | | | | | [facility], [address] [facility] | | | | | | [place] | | | | | | [address] | | | | + + + + + + + + | Specimen | + + | Blood specimen | | (specimen) | + + + +---------+ + + | Performing | Address | City/State/Zipcode | Phone Number | | Organization | | | | + +---------+ + + | EXTERNAL LAB | | | | + +---------+ + + Phosphorus (01/13/2015 3:56 AM PDT) + + + + + + | Component | Value | Ref Range | Performed | Pathologist | | | | | At | Signature | + + + + + + | PHOSPHORUS | 1.2 (L)Comment: Testing | 2.3 - 4.8 mg/dL | EXTERNAL | | | | performed at [facility], [address] | | LAB | | | | [address], | | | | | | [place] [address] | | | | + + + + + + + + | Specimen | + + | Blood specimen | | (specimen) | + + + +---------+ + + | Performing | Address | City/State/Zipcode | Phone Number | | Organization | | | | + +---------+ + + | EXTERNAL LAB | | | | + +---------+ + + Magnesium (01/13/2015 3:56 AM PDT) + + + + + + | Component | Value | Ref Range | Performed | Pathologist | | | | | At | Signature | + + + + + + | Magnesium | 1.9Comment: Testing | 1.7 - 2.4 mg/dL | EXTERNAL | | | | performed at [facility], [address] | | LAB | | | | [place], | | | | | | [place] [address] | | | | + + + + + + + + | Specimen | + + | Blood specimen | | (specimen) | + + + +---------+ + + | Performing | Address | City/State/Zipcode | Phone Number | | Organization | | | | + +---------+ + + | EXTERNAL LAB | | | | + +---------+ + + Hemoglobin A1C (01/13/2015 3:56 AM PDT) + + + + + + | Component | Value | Ref Range | Performed | Pathologist | | | | | At | Signature | + + + + + + | Hemoglobin | 5.0Comment: The [place] | 4.0 - 6.0 % | EXTERNAL | | | A1c | Diabetes Association | | LAB | | | | considers a hemoglobin | | | | | | A1c result of <7.0% to | | | | | | be the goal of diabetic | | | | | | therapy. When results | | | | | | are consistently >8.0%, | | | | | | the ADA suggests | | | | | | reevaluation of the | | | | | | treatment regimen. The | | | | | | testing method used is | | | | | | certified traceable to | | | | | | the Diabetes Control and | | | | | | Complications Trial | | | | | | reference method.Testing | | | | | | performed at [facility], [address] | | | | | | [address] [facility] [place], | | | | | | [place] [address] | | | | + + + + + + | Glycohemogl | 97Comment: The ADA | mg/dL | EXTERNAL | | | obin | considers an eAG result | | LAB | | | (GHb),Total | of LT 154 mg/dL to be | | | | | | the goal of diabetic | | | | | | therapy. Estimated | | | | | | Average Glucose | | | | | | calculated from | | | | | | hemoglobin A1c by use of | | | | | | the ADA recommended | | | | | | formula.Testing | | | | | | performed at [facility], [address] | | | | | | [facility] [place], | | | | | | [place] [address] | | | | + + + [...] + +---------+ + + Basic Metabolic Panel (01/13/2015 3:56 AM PDT) + + + + + + | Component | Value | Ref Range | Performed | Pathologist | | | | | At | Signature | + + + + + + | Na | 135Comment: Testing | 135 - 143 | EXTERNAL | | | | performed at [facility], [address] | mmol/L | LAB | | | | [address], | | | | | | [place] [address] | | | | + + + + + + | K | 3.5Comment: Testing | 3.5 - 4.9 | EXTERNAL | | | | performed at [facility], [address] | mmol/L | LAB | | | | [address], | | | | | | [place] [address] | | | | + + + + + + | Cl | 105Comment: Testing | 99 - 109 mmol/L | EXTERNAL | | | | performed at [facility], [address] | | LAB | | | | [address], | | | | | | [place] [address] | | | | + + + + + + | CO2 | 23Comment: Testing | 23 - 32 mmol/L | EXTERNAL | | | | performed at [facility], [address] | | LAB | | | | [place], | | | | | | [place] [address] | | | | + + + + + + | Anion Gap | 11Comment: Testing | 5 - 20 mmol/L | EXTERNAL | | | | performed at [facility], [address] | | LAB | | | | [address], | | | | | | [place] [address] | | | | + + + + + + | Glucose, | 130 (H)Comment: Testing | 65 - 99 mg/dL | EXTERNAL | | | Fasting | performed at [facility], [address] | | LAB | | | | [address], | | | | | | [place] [address] | | | | + + + + + + | BUN | 15Comment: Testing | 8 - 25 mg/dL | EXTERNAL | | | | performed at [facility], [address] | | LAB | | | | [address], | | | | | | [place] [address] | | | | + + + + + + | Creatinine | 0.72Comment: Testing | 0.70 - 1.30 | EXTERNAL | | | | performed at [facility], [address] | mg/dL | LAB | | | | [address], | | | | | | [place] [address] | | | | + + + + + + | BUN/Creatin | 21Comment: Testing | | EXTERNAL | | | ine Ratio | performed at [facility], [address] | | LAB | | | | [address], | | | | | | [place] [address] | | | | + + + + + + | Calcium | 7.8 (L)Comment: Testing | 8.5 - 10.5 | EXTERNAL | | | | performed at [facility], [address] | mg/dL | LAB | | | | [address], | | | | | | [place] [address] | | | | + + + [...] | | | | | | at [facility], [address] | | | | | | [address], | | | | | | [place] [address] | | | | + + + + + + + + | Specimen | + + | Blood specimen | | (specimen) | + + + +---------+ + + | Performing | Address | City/State/Zipcode | Phone Number | | Organization | | | | + +---------+ + + | EXTERNAL LAB | | | | + +---------+ + + POC Glucose (01/13/2015 3:20 AM PDT) + + + + + + | Component | Value | Ref Range | Performed | Pathologist | | | | | At | Signature | + + + + + + | Glucose, | 129 (H)Comment: Testing | 65 - 99 mg/dL | EXTERNAL | | | Fingerstick | performed at [facility];[address] | | LAB | | | | [address];[place] | | | | | | [address] | | | | + + + + + + + + | Specimen | + + | | + + + +---------+ + + | Performing | Address | City/State/Zipcode | Phone Number | | Organization | | | | + +---------+ + + | EXTERNAL LAB | | | | + +---------+ + + POC Glucose (01/13/2015 2:15 AM PDT) + + + + + + | Component | Value | Ref Range | Performed | Pathologist | | | | | At | Signature | + + + + + + | Glucose, | 150 (H)Comment: Testing | 65 - 99 mg/dL | EXTERNAL | | | Fingerstick | performed at [facility];[address] | | LAB | | | | [address];[place], [place] | | | | | | [address] | | | | + + + + + + + + | Specimen | + + | | + + + +---------+ + + | Performing | Address | City/State/Zipcode | Phone Number | | Organization | | | | + +---------+ + + | EXTERNAL LAB | | | | + +---------+ + + POC Glucose (01/13/2015 1:13 AM PDT) + + + + + + | Component | Value | Ref Range | Performed | Pathologist | | | | | At | Signature | + + + + + + | Glucose, | 205 (H)Comment: Testing | 65 - 99 mg/dL | EXTERNAL | | | Fingerstick | performed at [facility];[address] | | LAB | | | | [address];[place], [place] | | | | | | [address] | | | | + + + + + + + + | Specimen | + + | | + + + +---------+ + + | Performing | Address | City/State/Zipcode | Phone Number | | Organization | | | | + +---------+ + + | EXTERNAL LAB | | | | + +---------+ + + Magnesium (01/12/2015 11:23 PM PDT) + + + + + + | Component | Value | Ref Range | Performed | Pathologist | | | | | At | Signature | + + + + + + | Magnesium | 2.0Comment: Testing | 1.7 - 2.4 mg/dL | EXTERNAL | | | | performed at [facility] | | LAB | | | | [facility];[place], [place] | | | | | | [address] | | | | + + + + + + + + | Specimen | + + | Blood specimen | | (specimen) | + + + +---------+ + + | Performing | Address | City/State/Zipcode | Phone Number | | Organization | | | | + +---------+ + + | EXTERNAL LAB | | | | + +---------+ + + Vancomycin Level (01/12/2015 11:23 PM PDT) + + + + + + | Component | Value | Ref Range | Performed | Pathologist | | | | | At | Signature | + + + + + + | Vancomycin | 10.39Comment: Testing | ug/mL | EXTERNAL | | | Random | performed at [facility] | | LAB | | | | [address] [place] | | | | | | [address] | | | | + + + [...] + +---------+ + + Basic Metabolic Panel (01/12/2015 11:23 PM PDT) + + + + + + | Component | Value | Ref Range | Performed | Pathologist | | | | | At | Signature | + + + + + + | Na | 136Comment: Testing | 135 - 143 | EXTERNAL | | | | performed at [facility];[address] | mmol/L | LAB | | | | [address] [place] | | | | | | [address] | | | | + + + + + + | K | 3.1 (L)Comment: Testing | 3.5 - 4.9 | EXTERNAL | | | | performed at [facility];[address] | mmol/L | LAB | | | [address];[place] | | | | | | [address] | | | | + + + + + + | Cl | 105Comment: Testing | 99 - 109 mmol/L | EXTERNAL | | | | performed at [facility];[address] | | LAB | | | | [address];[place] | | | | | | [address] | | | | + + + + + + | CO2 | 22 (L)Comment: Testing | 23 - 32 mmol/L | EXTERNAL | | | | performed at [facility];[address] | | LAB | | | | [address];[place] | | | | | | [address] | | | | + + + + + + | Anion Gap | 12Comment: Testing | 5 - 20 mmol/L | EXTERNAL | | | | performed at [facility];[address] | | LAB | | | | [address];[place] | | | | | | [address] | | | | + + + + + + | Glucose, | 245 (H)Comment: Testing | 65 - 99 mg/dL | EXTERNAL | | | Fasting | performed at [facility];[address] | | LAB | | | | [address];[place] | | | | | | [address] | | | | + + + + + + | BUN | 15Comment: Testing | 8 - 25 mg/dL | EXTERNAL | | | | performed at [facility];[address] | | LAB | | | | [address];[place] | | | | | | [address] | | | | + + + + + + | Creatinine | 0.84Comment: Testing | 0.70 - 1.30 | EXTERNAL | | | | performed at [facility];[address] | mg/dL | LAB | | | | [address];[place] | | | | | | [address] | | | | + + + + + + | BUN/Creatin | 18Comment: Testing | | EXTERNAL | | | ine Ratio | performed at [facility];[address] | | LAB | | | | [address];[place] | | | | | | [address] | | | | + + + + + + | Calcium | 7.3 (L)Comment: Testing | 8.5 - 10.5 | EXTERNAL | | | | performed at [facility];[address] | mg/dL | LAB | | | | [address];[place] | | | | | | [address] | | | | + + + [...] | | | | | | at [facility];[address] [place] [address] | | | | | | [address]d;[place] [address] | | | | + + + + + + + + | Specimen | + + | Blood specimen | | (specimen) | + + + +---------+ + + | Performing | Address | City/State/Zipcode | Phone Number | | Organization | | | | + +---------+ + + | EXTERNAL LAB | | | | + +---------+ + + POC Glucose (01/12/2015 11:20 PM PDT) + + + + + + | Component | Value | Ref Range | Performed | Pathologist | | | | | At | Signature | + + + + + + | Glucose, | 274 (H)Comment: Testing | 65 - 99 mg/dL | EXTERNAL | | | Fingerstick | performed at [facility];[address] | | LAB | | | | [address];[place] | | | | | | [address] | | | | + + + + + + + + | Specimen | + + | | + + + +---------+ + + | Performing | Address | City/State/Zipcode | Phone Number | | Organization | | | | + +---------+ + + | EXTERNAL LAB | | | | + +---------+ + + POC Glucose (01/12/2015 5:58 PM PDT) + + + + + + | Component | Value | Ref Range | Performed | Pathologist | | | | | At | Signature | + + + + + + | Glucose, | 307 (H)Comment: Testing | 65 - 99 mg/dL | EXTERNAL | | | Fingerstick | performed at [facility];[address] | | LAB | | | | [address];[place], [place] | | | | | | [address] | | | | + + + + + + + + | Specimen | + + | | + + + +---------+ + + | Performing | Address | City/State/Zipcode | Phone Number | | Organization | | | | + +---------+ + + | EXTERNAL LAB | | | | + +---------+ + + Culture, Blood, 2nd Specimen (01/12/2015 4:38 PM PDT) + + | Specimen | + + | Blood specimen | | (specimen) | + + + + + | Narrative | Performed At | + + + | Specimen Description BLOOD, LINE DRAW CULTURE | EXTERNAL LAB | | NO GROWTH | | | Testing performed at [facility], [address] | | | [place] [address] | | + + + + +---------+ + + | Performing | Address | City/State/Zipcode | Phone Number | | Organization | | | | + +---------+ + + | EXTERNAL LAB | | | | + +---------+ + + POC Glucose (01/12/2015 12:06 PM PDT) + + + + + + | Component | Value | Ref Range | Performed | Pathologist | | | | | At | Signature | + + + + + + | Glucose, | 262 (H)Comment: Testing | 65 - 99 mg/dL | EXTERNAL | | | Fingerstick | performed at [facility];[address] | | LAB | | | | [address];[place], [place] | | | | | | [address] | | | | + + + + + + + + | Specimen | + + | | + + + +---------+ + + | Performing | Address | City/State/Zipcode | Phone Number | | Organization | | | | + +---------+ + + | EXTERNAL LAB | | | | + +---------+ + + Magnesium (01/12/2015 10:00 AM PDT) + + + + + + | Component | Value | Ref Range | Performed | Pathologist | | | | | At | Signature | + + + + + + | Magnesium | 1.6 (L)Comment: Testing | 1.7 - 2.4 mg/dL | EXTERNAL | | | | performed at [facility];[address] | | LAB | | | | [address];[place], [place] | | | | | | [address] | | | | + + + + + + + + | Specimen | + + | Blood specimen | | (specimen) | + + + +---------+ + + | Performing | Address | City/State/Zipcode | Phone Number | | Organization | | | | + +---------+ + + | EXTERNAL LAB | | | | + +---------+ + + ECHO Complete (01/12/2015 8:53 AM PDT) + + | Specimen | + + | | + + + + + | Impressions | Performed At | + + + | 1. Overall left ventricular systolic function is moderately impaired | | | with, an EF between 35 - 40 %. 2. Pseudonormal LV diastolic filling | | | pattern, consistent with elevated LA pressure and moderate dysfunction | | | (Grade II). 3. The right ventricle is normal in size. 4. The right | | | ventricular systolic function is impaired. 5. Moderate mitral | | | regurgitation is present. 6. Sdbv-ee-uflzxudi tricuspid regurgitation | | | present. 7. There is mild pulmonary hypertension. | | + + + + + + | Narrative | Performed At | + + + | Patient Name: JOSE EATON Date of : 1950 | | | Performing Physician: Attila Yepez MD | | | | | | INDICATIONS acute mi, eval rv CONCLUSIONS | | | 1. Overall left ventricular systolic function is | | | moderately impaired with, an EF between 35 - 40 %. 2. Pseudonormal LV | | | diastolic filling pattern, consistent with elevated LA pressure and | | | moderate dysfunction (Grade II). 3. The right ventricle is normal in | | | size. 4. The right ventricular systolic function is impaired. 5. | | | Moderate mitral regurgitation is present. 6. Fyoy-jc-txwfcqrw | | | tricuspid regurgitation present. 7. There is mild pulmonary | | | hypertension. FINDINGS -------- ECG rhythm: Resting tachycardia | | | (HR>100bpm). Study: A 2-dimensional transthoracic echocardiogram with | | | m-mode, spectral and color flow Doppler was perfomed. Study: This | | | was a technically difficult study with suboptimal views. Left | | | Ventricle: Overall left ventricular systolic function is moderately | | | impaired with, an EF between 35 - 40 %. Left Ventricle: The left | | | ventricle cavity size is normal. Left Ventricle: Left ventricular | | | wall thickness is normal. Left Ventricle: There is moderate global | | | hypokinesis of LV contractility. Left Ventricle: Pseudonormal LV | | | diastolic filling pattern, consistent with elevated LA pressure and | | | moderate dysfunction (Grade II). Right Ventricle: The right ventricle | | | is normal in size. Right Ventricle: The right ventricular systolic | | | function is impaired. Left Atrium: The left atrium is moderately | | | dilated. Right Atrium: The right atrial size is normal. Aortic | | | Valve: Aortic valve is trileaflet and is mildly thickened. Aortic | | | Valve: The aortic valve is mildly calcified. Aortic Valve: Trace | | | amount of aortic regurgitation. Aortic Valve: There is no evidence of | | | aortic stenosis. Mitral Valve: The mitral valve is normal. Mitral | | | Valve: Moderate mitral regurgitation is present Mitral Valve: , | | | predominately a posteriorly directed jet. Tricuspid Valve: The | | | tricuspid valve appears structurally normal. Tricuspid Valve: | | | Ffnn-rl-wrvicvnw tricuspid regurgitation present. Tricuspid Valve: | | | There is mild pulmonary hypertension. Tricuspid Valve: The right | | | ventricular systolic pressure (pulmonary artery systolic pressure), as | | | measured by Doppler, is 37.59mmHg. Pulmonic Valve: The pulmonic | | | valve was not well visualized. Pericardium: There is no pericardial | | | effusion. IVC/Hepatic Veins: The IVC was not well visualized. Aorta: | | | The aortic root, ascending aorta are normal. Septum: Interatrial | | | septum bowing to the right side, consistent with LA elevated pressure. | | | MEASUREMENTS Ao asc: 3.41 cm LA Diam: 4.58 | | | cm LA Major: 5.32 cm EDV(Teich): 83.14 ml IVSd: 0.90 cm | | | LVIDd: 4.30 cm LVPWd: 1.09 cm LVOT Diam: 1.87 cm %FS: | | | 25.33 % EF(Teich): 50.29 % ESV(Teich): 41.32 ml IVSs: 1.02 | | | cm LVIDs: 3.21 cm LVPWs: 1.37 cm SV(Teich): 41.82 ml RA | | | Major: 4.61 cm RVIDd: 3.14 cm LVEF MOD A2C: 38.12 % SV MOD | | | A2C: 27.38 ml LVEF MOD A4C: 36.11 % SV MOD A4C: 24.87 ml | | | EF Biplane: 35.12 % LVEDV MOD BP: 74.83 ml LVESV MOD BP: | | | 48.54 ml LVEDV MOD A2C: 71.82 ml LVLd A2C: 7.12 cm LVEDV MOD | | | A4C: 68.88 ml LVLd A4C: 7.00 cm LVESV MOD A2C: 44.44 ml | | | LVLs A2C: 6.31 cm LVESV MOD A4C: 44.00 ml LVLs A4C: 6.50 cm | | | CO Biplane: 2.77 l/min HR: 105.73 BPM R-R: 567.47 ms | | | LAESV(A-L): 64.80 ml LAESV Index (A-L): 35.80 ml/m2 LAAs A2C: | | | 18.62 cm2 LAESV A-L A2C: 55.53 ml LAESV MOD A2C: 52.66 ml | | | LALs A2C: 5.30 cm LAAs A4C: 21.73 cm2 LAESV A-L A4C: 69.59 | | | ml LAESV MOD A4C: 63.41 ml LALs A4C: 5.76 cm HR: 100.23 | | | BPM AV maxP.95 mmHg AV meanP.97 mmHg AV Vmax: 1.11 | | | m/s AV Vmean: 0.83 m/s AV VTI: 18.56 cm LOUISA Vmax: 2.21 | | | cm2 LOUISA (VTI): 2.49 cm2 LVCI Dopp: 2.57 l/minm2 LVCO Dopp: | | | 4.66 l/min HR: 100.81 BPM LVOT maxP.16 mmHg LVOT meanPG: | | | 1.84 mmHg LVSI Dopp: 25.55 ml/m2 LVSV Dopp: 46.25 ml LVOT | | | Vmax: 0.89 m/s LVOT Vmean: 0.63 m/s LVOT VTI: 16.72 cm | | | MCO: 339.10 ms MV A Shade: 0.52 m/s MV DecT: 112.98 ms MV E | | | Shade: 0.64 m/s MV E/A Ratio: 1.22 MV PHT: 41.54 ms MVA By | | | PHT: 5.29 cm2 MV A Dur: 69.20 ms Septal e': 0.06 m/s | | | Septal E/e': 9.81 RAP: 10 mmHg RVSP: 37.59 mmHg TR maxPG: | | | 27.59 mmHg TR Vmax: 2.62 m/s TV A Shade: 0.31 m/s TV Dec | | | [place]ack[place]: 2.85 m/s2 TV Dec Time: 143.08 ms TV E Shade: 0.40 m/s | | | TV E/A Ratio: 1.30 Medical Imaging Director: JAYCEE Authenticated by: Attila | | | Marleni CHU Report Date/Time: 01-12-2015 16:43:49 | | + + + + + | Procedure Note | + + | Billy De La Garza Conversion - 11/10/2018 8:48 AM PDT Patient Name: Viji EATON of | | : 1950 Performing Physician: Attila Yepez | | MD INDICATIONS a | | basil mi, eval rv CONCLUSIONS 1. Overall left ventricular systolic function is | | moderately impaired with, an EF between 35 - 40 %.2. Pseudonormal LV diastolic filling | | pattern, consistent with elevated LA pressure and moderate dysfunction (Grade II).3. The | | right ventricle is normal in size.4. The right ventricular systolic function is | | impaired.5. Moderate mitral regurgitation is present.6. Abdg-is-kaxzmhhk tricuspid | | regurgitation present.7. There is mild pulmonary hypertension. FINDINGS--------ECG | | rhythm: Resting tachycardia (HR>100bpm).Study: A 2-dimensional transthoracic | | echocardiogram with m-mode, spectral and color flow Doppler was perfomed.Study: This was | | a technically difficult study with suboptimal views.Left Ventricle: Overall left | | ventricular systolic function is moderately impaired with, an EF between 35 - 40 %.Left | | Ventricle: The left ventricle cavity size is normal.Left Ventricle: Left ventricular | | wall thickness is normal.Left Ventricle: There is moderate global hypokinesis of LV | | contractility.Left Ventricle: Pseudonormal LV diastolic filling pattern, consistent with | | elevated LA pressure and moderate dysfunction (Grade II).Right Ventricle: The right | | ventricle is normal in size.Right Ventricle: The right ventricular systolic function is | | impaired.Left Atrium: The left atrium is moderately dilated.Right Atrium: The right | | atrial size is normal.Aortic Valve: Aortic valve is trileaflet and is mildly | | thickened.Aortic Valve: The aortic valve is mildly calcified.Aortic Valve: Trace amount | | of aortic regurgitation.Aortic Valve: There is no evidence of aortic stenosis.Mitral | | Valve: The mitral valve is normal.Mitral Valve: Moderate mitral regurgitation is | | presentMitral Valve: , predominately a posteriorly directed jet.Tricuspid Valve: The | | tricuspid valve appears structurally normal.Tricuspid Valve: Rpcn-lu-nkklmlow tricuspid | | regurgitation present.Tricuspid Valve: There is mild pulmonary hypertension.Tricuspid | | Valve: The right ventricular systolic pressure (pulmonary artery systolic pressure), as | | measured by Doppler, is 37.59mmHg.Pulmonic Valve: The pulmonic valve was not well | | visualized.Pericardium: There is no pericardial effusion.IVC/Hepatic Veins: The IVC was | | not well visualized.Aorta: The aortic root, ascending aorta are normal.Septum: | | Interatrial septum bowing to the right side, consistent with LA elevated pressure. | | MEASUREMENTS Ao asc: 3.41 cmLA Diam: 4.58 cmLA Major: 5.32 | | cmEDV(Teich): 83.14 mlIVSd: 0.90 cmLVIDd: 4.30 cmLVPWd: 1.09 cmLVOT Diam: 1.87 | | cm%FS: 25.33 %EF(Teich): 50.29 %ESV(Teich): 41.32 mlIVSs: 1.02 cmLVIDs: 3.21 | | cmLVPWs: 1.37 cmSV(Teich): 41.82 mlRA Major: 4.61 cmRVIDd: 3.14 cmLVEF MOD A2C: | | 38.12 %SV MOD A2C: 27.38 mlLVEF MOD A4C: 36.11 %SV MOD A4C: 24.87 mlEF Biplane: | | 35.12 %LVEDV MOD BP: 74.83 mlLVESV MOD BP: 48.54 mlLVEDV MOD A2C: 71.82 mlLVLd | | A2C: 7.12 cmLVEDV MOD A4C: 68.88 mlLVLd A4C: 7.00 cmLVESV MOD A2C: 44.44 mlLVLs | | A2C: 6.31 cmLVESV MOD A4C: 44.00 mlLVLs A4C: 6.50 cmCO Biplane: 2.77 l/minHR: | | 105.73 BPMR-R: 567.47 msLAESV(A-L): 64.80 mlLAESV Index (A-L): 35.80 ml/m2LAAs | | A2C: 18.62 [id number] A-L A2C: 55.53 mlLAESV MOD A2C: 52.66 mlLALs A2C: 5.30 | | cmLAAs A4C: 21.73 [id number] A-L A4C: 69.59 mlLAESV MOD A4C: 63.41 mlLALs A4C: | | 5.76 cmHR: 100.23 BPMAV maxP.95 mmHgAV meanP.97 mmHgAV Vmax: 1.11 m/Svetlana | | Vmean: 0.83 m/Svetlana VTI: 18.56 cmAVA Vmax: 2.21 cm2AVA (VTI): 2.49 [id number] Dopp: | | 2.57 l/[id number] Dopp: 4.66 l/minHR: 100.81 BPMLVOT maxP.16 mmHgLVOT meanPG: | | 1.84 mmHgLVSI Dopp: 25.55 ml/m2LVSV Dopp: 46.25 mlLVOT Vmax: 0.89 m/sLVOT Vmean: | | 0.63 m/sLVOT VTI: 16.72 cmMCO: 339.10 msMV A Shade: 0.52 m/sMV DecT: 112.98 | | msMV E Shade: 0.64 m/sMV E/A Ratio: 1.22MV PHT: 41.54 msMVA By PHT: 5.29 cm2MV A | | Dur: 69.20 msSeptal e': 0.06 m/sSeptal E/e': 9.81RAP: 10 mmHgRVSP: 37.59 | | mmHgTR maxP.59 mmHgTR Vmax: 2.62 m/sTV A Shade: 0.31 m/sTV Dec Shackelford: 2.85 | | m/s2TV Dec Time: 143.08 msTV E Shade: 0.40 m/sTV E/A Ratio: 1.30 Medical Imaging Director: | | GDAuthenticated by: Attila Yepez MDReport Date/Time: 01-12-2015 16:43:49 IMPRESSION: 1. | | Overall left ventricular systolic function is moderately impaired with, an EF between 35 | | - 40 %.2. Pseudonormal LV diastolic filling pattern, consistent with elevated LA | | pressure and moderate dysfunction (Grade II).3. The right ventricle is normal in size.4. | | The right ventricular systolic function is impaired.5. Moderate mitral regurgitation is | | present.6. Wkpw-mo-feghtrva tricuspid regurgitation present.7. There is mild pulmonary | | hypertension. | |EDV(Teich): 83.14 ml | |IVSd: 0.90 cm | |LVIDd: 4.30 cm | |LVPWd: 1.09 cm | |LVOT Diam: 1.87 cm | |%FS: 25.33 % | |EF(Teich): 50.29 % | |ESV(Teich): 41.32 ml | |IVSs: 1.02 cm | |LVIDs: 3.21 cm | |LVPWs: 1.37 cm | |SV(Teich): 41.82 ml | |RA Major: 4.61 cm | |RVIDd: 3.14 cm | |LVEF MOD A2C: 38.12 % | |SV MOD A2C: 27.38 ml | |LVEF MOD A4C: 36.11 % | |SV MOD A4C: 24.87 ml | |EF Biplane: 35.12 % | |LVEDV MOD BP: 74.83 ml | |LVESV MOD BP: 48.54 ml | |LVEDV MOD A2C: 71.82 ml | |LVLd A2C: 7.12 cm | |LVEDV MOD A4C: 68.88 ml | |LVLd A4C: 7.00 cm | |LVESV MOD A2C: 44.44 ml | |LVLs A2C: 6.31 cm | |LVESV MOD A4C: 44.00 ml | |LVLs A4C: 6.50 cm | |CO Biplane: 2.77 l/min | |HR: 105.73 BPM | |R-R: 567.47 ms | |LAESV(A-L): 64.80 ml | |LAESV Index (A-L): 35.80 ml/m2 | |LAAs A2C: 18.62 cm2 | |LAESV A-L A2C: 55.53 ml | |LAESV MOD A2C: 52.66 ml | |LALs A2C: 5.30 cm | |LAAs A4C: 21.73 cm2 | |LAESV A-L A4C: 69.59 ml | |LAESV MOD A4C: 63.41 ml | |LALs A4C: 5.76 cm | |HR: 100.23 BPM | |AV maxP.95 mmHg | |AV meanP.97 mmHg | |AV Vmax: 1.11 m/s | |AV Vmean: 0.83 m/s | |AV VTI: 18.56 cm | |LOUISA Vmax: 2.21 cm2 | |LOUISA (VTI): 2.49 cm2 | |LVCI Dopp: 2.57 l/minm2 | |LVCO Dopp: 4.66 l/min | |HR: 100.81 BPM | |LVOT maxP.16 mmHg | |LVOT meanP.84 mmHg | |LVSI Dopp: 25.55 ml/m2 | |LVSV Dopp: 46.25 ml | |LVOT Vmax: 0.89 m/s | |LVOT Vmean: 0.63 m/s | |LVOT VTI: 16.72 cm | |MCO: 339.10 ms | |MV A Shade: 0.52 m/s | |MV DecT: 112.98 ms | |MV E Shade: 0.64 m/s | |MV E/A Ratio: 1.22 | |MV PHT: 41.54 ms | |MVA By PHT: 5.29 cm2 | |MV A Dur: 69.20 ms | |Septal e': 0.06 m/s | |Septal E/e': 9.81 | |RAP: 10 mmHg | |RVSP: 37.59 mmHg | |TR maxP.59 mmHg | |TR Vmax: 2.62 m/s | |TV A Shade: 0.31 m/s | |TV Dec Shackelford: 2.85 m/s2 | |TV Dec Time: 143.08 ms | |TV E Shade: 0.40 m/s | |TV E/A Ratio: 1.30 | | | |Medical Imaging Director: GD | |Authenticated by: Attila Yepez MD | |Report Date/Time: 01-12-2015 16:43:49 | | | |IMPRESSION: | |1. Overall left ventricular systolic function is moderately impaired with, an EF between 35 - 40 %. | |2. Pseudonormal LV diastolic filling pattern, consistent with elevated LA pressure and mode rate dysfunction (Grade II). | |3. The right ventricle is normal in size. | |4. The right ventricular systolic function is impaired. | |5. Moderate mitral regurgitation is present. | |6. Ziri-vo-fshevqsb tricuspid regurgitation present. | |7. There is mild pulmonary hypertension. | + + MRSA NAAT (01/12/2015 7:59 AM PDT) + + | Specimen | + + | | + + + + + | Narrative | Performed At | + + + | SOURCE NARES(NOSE) | EXTERNAL LAB | | Testing performed at [facility];[address] [place] [address];[place] [address] MRSA PCR | | | NEGATIVE Testing performed at | | | [address];[place] [address] | | + + + + +---------+ + + | Performing | Address | City/State/Zipcode | Phone Number | | Organization | | | | + +---------+ + + | EXTERNAL LAB | | | | + +---------+ + + Gram Stain, reflex Sputum Culture (01/12/2015 7:55 AM PDT) + + | Specimen | + + | Body fluid sample | | (specimen) | + + + + + | Narrative | Performed At | + + + | Specimen Description SPUTUM GRAM STAIN | EXTERNAL LAB | | GREATER THAN 10 WBCS/LPF | | | LESS THAN 10 SEC/LPF | | | 1+ | | | GRAM POSITIVE COCCI | | | CULTURE 1+ | | | ESCHERICHIA | | | COLIAbnormal 1+ | | | | | | NORMAL UPPER RESPIRATORY NIGHAT | | | Testing performed at [facility], [address], | | | [place] [address] Suscepibility for - ESCHERICHIA COLI | | | Ampicillin SUSCEPTIBLESensitive | | | Ampicillin + Sulbactam SUSCEPTIBLESensitive Cefepime | | | SUSCEPTIBLESensitive Cefoxitin | | | SUSCEPTIBLESensitive Ceftazidime | | | SUSCEPTIBLESensitive Ceftriaxone | | | SUSCEPTIBLESensitive Ciprofloxacin | | | SUSCEPTIBLESensitive Gentamicin | | | SUSCEPTIBLESensitive Levofloxacin | | | SUSCEPTIBLESensitive Piperacillin + Tazobactam | | | SUSCEPTIBLESensitive Tobramycin | | | SUSCEPTIBLESensitive Trimethoprim + | | | SulfamethoxazoleSUSCEPTIBLESensitive | | + + + + +---------+ + + | Performing | Address | City/State/Zipcode | Phone Number | | Organization | | | | + +---------+ + + | EXTERNAL LAB | | | | + +---------+ + + Troponin I (01/12/2015 6:31 AM PDT) + + + + + + | Component | Value | Ref Range | Performed | Pathologist | | | | | At | Signature | + + + + + + | Troponin I, | 0.384 (H)Comment: 0.00 | 0.00 - 0.10 | EXTERNAL | | | Qual | to 0.10 CONSISTENT | ng/mL | LAB | | | | WITH NORMAL | | | | | | POPULATION0.11 to 0.60 | | | | | | CONSISTENT WITH | | | | | | INCREASED RISK FOR | | | | | | ADVERSE OUTCOMES> 0.60 | | | | | | CONSISTENT | | | | | | WITH WHO CRITERIA FOR | | | | | | ACUTE NC Testing | | | | | | performed at [facility];[address] | | | | | [address];[place], [place] | | | | | | [address] | | | | + + + [...] + +---------+ + + Basic Metabolic Panel (01/12/2015 6:31 AM PDT) + + + + + + | Component | Value | Ref Range | Performed | Pathologist | | | | | At | Signature | + + + + + + | Na | 140Comment: Testing | 135 - 143 | EXTERNAL | | | | performed at [facility];[address] | mmol/L | LAB | | | | [address];[place], [place] | | | | | | [address] | | | | + + + + + + | K | 3.8Comment: SLT | 3.5 - 4.9 | EXTERNAL | | | | HEMOLYSISTesting | mmol/L | LAB | | | | performed at [facility];[address] | | | | [address];[place] | | | | | | [address] | | | | + + + + + + | Cl | 114 (H)Comment: Testing | 99 - 109 mmol/L | EXTERNAL | | | | performed at [facility];[address] | | LAB | | | | [address];[place] | | | | | | [address] | | | | + + + + + + | CO2 | 17 (L)Comment: Testing | 23 - 32 mmol/L | EXTERNAL | | | | performed at [facility];[address] | | LAB | | | | [address];[place] | | | | | | [address] | | | | + + + + + + | Anion Gap | 13Comment: Testing | 5 - 20 mmol/L | EXTERNAL | | | | performed at [facility];[address] | | LAB | | | | [address];[place] | | | | | | [address] | | | | + + + + + + | Glucose, | 96Comment: Testing | 65 - 99 mg/dL | EXTERNAL | | | Fasting | performed at [facility];[address] | | LAB | | | | [address];[place] | | | | | | [address] | | | | + + + + + + | BUN | 17Comment: Testing | 8 - 25 mg/dL | EXTERNAL | | | | performed at [facility];[address] | | LAB | | | | [address];[place] | | | | | | [address] | | | | + + + + + + | Creatinine | 1.00Comment: Testing | 0.70 - 1.30 | EXTERNAL | | | | performed at [facility];[address] | mg/dL | LAB | | | | [address];[place] | | | | | | [address] | | | | + + + + + + | BUN/Creatin | 17Comment: Testing | | EXTERNAL | | | ine Ratio | performed at [facility];[address] | | LAB | | | | [address];[place] | | | | | | [address] | | | | + + + + + + | Calcium | 6.7 (L)Comment: Testing | 8.5 - 10.5 | EXTERNAL | | | | performed at [facility];[address] | mg/dL | LAB | | | | [address];[place] | | | | | | [address] | | | | + + + [...] | | | | | | at [facility];[address] | | | | | | [address];[place] [phone] | | | | + + + + + + + + | Specimen | + + | Blood specimen | | (specimen) | + + + +---------+ + + | Performing | Address | City/State/Zipcode | Phone Number | | Organization | | | | + +---------+ + + | EXTERNAL LAB | | | | + +---------+ + + CT Chest Abdomen Pelvis w Contrast (01/12/2015 6:12 AM PDT) + + | Specimen | + + | | + + + + + | Impressions | Performed At | + + + | 1. Extensive right lung pneumonia with small parapneumonic | | | effusion. 2. Mild cardiomegaly and severe coronary to ossifications. | | | 3. Generalized anasarca, commonly seen in septic patient's. There are | | | several bubbles of gas in the subcutaneous tissues of uncertain | | | etiology but possibly iatrogenic. Correlate to exclude gas-forming | | | soft tissue infection. 4. Fluid-filled proximal small bowel with | | | relatively decompressed distal small bowel proximal to the ileostomy. | | | Favor normal variant/ileus over bowel obstruction. Gastroenteritis | | | /radiation enteritis could have a similar picture. [facility] | | | Electronically signed by Nba Thomason MD on Jan 12 2015 6:44AM | | | Referring Provider Line: [phone] ID: [id number] | | + + + + + + | Narrative | Performed At | + + + | EXAM: CT CHEST, ABDOMEN AND PELVIS EXAM DATE: 01/12/2015 06:13 | | | AM. CLINICAL HISTORY: Septic shock, diarrhea for infection. | | | COMPARISONS: 08/02/2014 images only. TECHNIQUE: Routine helical CT | | | imaging was performed through the chest, abdomen, and pelvis. IV | | | contrast: 100 cc Isovue-300 . Enteric contrast: No. Reconstructions: | | | Coronal and sagittal. FINDINGS: Lungs/Pleura: Extensive right | | | lung consolidative opacities, worst involvement of the lower lobe. | | | Very small right pleural effusion and trace left pleural effusion. | | | Left lower lobe dependent consolidation is probably atelectasis. | | | Mediastinum: Mild cardiomegaly. Severe coronary calcifications. No | | | adenopathy. Aorta appears unremarkable. Abdominal organs: Liver, | | | gallbladder, adrenals, kidneys, and spleen are within normal limits. | | | Peritoneal Cavity/Bowel: Most of the small bowel is fluid-filled | | | but not particular distended. There some decompressed loops of distal | | | small bowel. Patient status post right lower quadrant ileostomy | | | formation. Mild mesenteric and presacral edema is probably related | | | to patient's generalized anasarca, commonly seen in septic patient's. | | | Pelvic Organs: Obscured due to streak artifact from the hip | | | prostheses bilaterally. Prostate and urinary bladder are obscured. | | | Presacral edema present. There is fatty proliferation around the | | | distal rectum, possibly related chronic inflammatory bowel disease. | | | Vasculature: No aneurysms or other significant abnormality. | | | Bones: Osteopenia involving the sacrum and L2-L5 vertebral bodies, | | | likely related to previous radiation. Other: Mild diffuse | | | subcutaneous edema, commonly seen in septic patient's. There are are | | | several bubbles of gas in the subcutaneous tissues, most notably in | | | the right chest wall on axial images 47 through 56 series 3. Anterior | | | left pelvic wall bubbles on image 94 and left inguinal region on | | | image 111. | | + + + + + | Procedure Note | + + | Frederic, Rad Conversion - 11/10/2018 8:48 AM PDT EXAM:CT CHEST, ABDOMEN AND PELVIS EXAM | | DATE: 01/12/2015 06:13 AM. CLINICAL HISTORY: Septic shock, diarrhea for infection. | | COMPARISONS: 08/02/2014 images only. TECHNIQUE: Routine helical CT imaging was performed | | through the chest, abdomen, and pelvis. IV contrast: 100 cc Isovue-300 . Enteric | | contrast: No. Reconstructions: Coronal and sagittal. FINDINGS:Lungs/Pleura: Extensive | | right lung consolidative opacities, worst involvement of the lower lobe. Very small | | right pleural effusion and trace left pleural effusion. Left lower lobe dependent | | consolidation is probably atelectasis. Mediastinum: Mild cardiomegaly. Severe coronary | | calcifications. No adenopathy. Aorta appears unremarkable. Abdominal organs: Liver, | | gallbladder, adrenals, kidneys, and spleen are within normal limits. Peritoneal | | Cavity/Bowel: Most of the small bowel is fluid-filled but not particular distended. | | There some decompressed loops of distal small bowel. Patient status post right lower | | quadrant ileostomy formation. Mild mesenteric and presacral edema is probably related to | | patient's generalized anasarca, commonly seen in septic patient's. Pelvic Organs: | | Obscured due to streak artifact from the hip prostheses bilaterally. Prostate and | | urinary bladder are obscured. Presacral edema present. There is fatty proliferation | | around the distal rectum, possibly related chronic inflammatory bowel disease. | | Vasculature: No aneurysms or other significant abnormality. Bones: Osteopenia involving | | the sacrum and L2-L5 vertebral bodies, likely related to previous radiation. Other: Mild | | diffuse subcutaneous edema, commonly seen in septic patient's. There are are several | | bubbles of gas in the subcutaneous tissues, most notably in the right chest wall on | | axial images 47 through 56 series 3. Anterior left pelvic wall bubbles on image 94 and | | left inguinal region on image 111. IMPRESSION: 1. Extensive right lung pneumonia with | | small parapneumonic effusion.2. Mild cardiomegaly and severe coronary to | | ossifications.3. Generalized anasarca, commonly seen in septic patient's. There are | | several bubbles of gas in the subcutaneous tissues of uncertain etiology but possibly | | iatrogenic. Correlate to exclude gas-forming soft tissue infection.4. Fluid-filled | | proximal small bowel with relatively decompressed distal small bowel proximal to the | | ileostomy. Favor normal variant/ileus over bowel obstruction. Gastroenteritis /radiation | | enteritis could have a similar picture. [facility] Electronically signed by Nba | | MD Paddy on Jan 12 2015 6:44AM Referring Provider Line: [phone] ID: [id number] | | | |IMPRESSION: | | | |1. Extensive right lung pneumonia with small parapneumonic effusion. | |2. Mild cardiomegaly and severe coronary to ossifications. | |3. Generalized anasarca, commonly seen in septic patient's. There are several bubbles of ga s in the subcutaneous tissues of uncertain etiology but possibly iatrogenic. Correlate to ex clude gas-forming soft tissue infection. | |4. Fluid-filled proximal small bowel with relatively decompressed distal small bowel proxim al to the ileostomy. Favor normal variant/ileus over bowel obstruction. Gastroenteritis /rad iation enteritis could have a similar picture. | | | |[facility] | | | | Electronically signed by Nba Thomason MD on Jan 12 2015 6:44AM Referring Provider Sharla e: [phone] ID: [id number] | + + Lactic Acid (01/12/2015 5:43 AM PDT) + + + + + + | Component | Value | Ref Range | Performed | Pathologist | | | | | At | Signature | + + + + + + | Lactate | 2.0Comment: Testing | 0.4 - 2.0 | EXTERNAL | | | | performed at [facility];[address] | mmol/L | LAB | | | | [address];[place], [place] | | | | | | [address] | | | | + + + + + + + + | Specimen | + + | Blood specimen | | (specimen) | + + + +---------+ + + | Performing | Address | City/State/Zipcode | Phone Number | | Organization | | | | + +---------+ + + | EXTERNAL LAB | | | | + +---------+ + + POC Glucose (01/12/2015 5:41 AM PDT) + + + + + + | Component | Value | Ref Range | Performed | Pathologist | | | | | At | Signature | + + + + + + | Glucose, | 103 (H)Comment: Testing | 65 - 99 mg/dL | EXTERNAL | | | Fingerstick | performed at [facility];[address] | | LAB | | | | [address];[place] | | | | | | [address] | | | | + + + + + + + + | Specimen | + + | | + + + +---------+ + + | Performing | Address | City/State/Zipcode | Phone Number | | Organization | | | | + +---------+ + + | EXTERNAL LAB | | | | + +---------+ + + XR Chest 1 Vw (01/12/2015 5:08 AM PDT) + + | Specimen | + + | | + + + + + | Impressions | Performed At | + + + | 1. Right central catheter tip at the cavoatrial junction. | | | Support devices otherwise unchanged. 2.Low lung volumes with stable | | | extensive right lung airspace opacities. [facility] Electronically | | | signed by Nba Thomason MD on Jan 12 2015 5:22AM Referring | | | Provider Line: [phone] ID: [id number] | | + + + + + + | Narrative | Performed At | + + + | EXAM: CHEST RADIOGRAPHY EXAM DATE: 01/12/2015 05:09 AM. | | | CLINICAL HISTORY: Tube/line position. COMPARISON: Prior evening | | | and chest CT 08/02/2014. TECHNIQUE: 1 view. FINDINGS: | | | Lungs/Pleura: Low lung volumes with stable extensive right lung | | | airspace opacities. No gross pneumothorax. Mediastinum: Within | | | exam limitations, cardiomediastinal contour is normal. Other: | | | Right central catheter tip at the cavoatrial junction. Support devices | | | otherwise unchanged. | | + + + + + | Procedure Note | + + | Frederic, Rad Conversion - 11/10/2018 8:48 AM PDT EXAM:CHEST RADIOGRAPHY EXAM DATE: | | 01/12/2015 05:09 AM. CLINICAL HISTORY: Tube/line position. COMPARISON: Prior evening and | | chest CT 08/02/2014. TECHNIQUE: 1 view. FINDINGS:Lungs/Pleura: Low lung volumes with | | stable extensive right lung airspace opacities. No gross pneumothorax. Mediastinum: | | Within exam limitations, cardiomediastinal contour is normal. Other: Right central | | catheter tip at the cavoatrial junction. Support devices otherwise unchanged. | | IMPRESSION: 1. Right central catheter tip at the cavoatrial junction. Support devices | | otherwise unchanged.2.Low lung volumes with stable extensive right lung airspace | | opacities. [facility] Electronically signed by Nba Thomason MD on Jan 12 2015 5:22AM | | Referring Provider Line: [phone] ID: [id number] | | | |FINDINGS: | |Lungs/Pleura: Low lung volumes with stable extensive right lung airspace opacities. No natalee s pneumothorax. | | | |Mediastinum: Within exam limitations, cardiomediastinal contour is normal. | | | |Other: Right central catheter tip at the cavoatrial junction. Support devices otherwise unc hanged. | | | |IMPRESSION: | | | |1. Right central catheter tip at the cavoatrial junction. Support devices otherwise unchan ged. | |2.Low lung volumes with stable extensive right lung airspace opacities. | | | |[facility] | | | | Electronically signed by Nba Thomason MD on Jan 12 2015 5:22AM Referring Provider Sharla e: [phone] ID: [id number] | + + Calcium, Ionized (01/12/2015 3:23 AM PDT) + + + + + + | Component | Value | Ref Range | Performed | Pathologist | | | | | At | Signature | + + + + + + | Calcium | 1.00 (L)Comment: Testing | 1.08 - 1.25 | EXTERNAL | | | (Calc) | performed at [facility];[address] | mmol/L | LAB | | | | [address];[place] | | | | | | [address] | | | | + + + + + + | pH, Bld | 7.336Comment: Testing | 7.300 - 7.450 | EXTERNAL | | | | performed at [facility];[address] | | LAB | | | | [address];[place] | | | | | | [address] | | | | + + + [...] + +---------+ + + External Lab: CBC (01/12/2015 2:44 AM PDT) + + + + + + | Component | Value | Ref Range | Performed | Pathologist | | | | | At | Signature | + + + + + + | WBC | 3.38 (L)Comment: Testing | 3.80 - 11.00 | EXTERNAL | | | | performed at [facility] | K/uL | LAB | | | | [address], | | | | | | [place] [address] | | | | + + + + + + | RED CELL | 2.62 (L)Comment: Testing | 4.20 - 5.70 | EXTERNAL | | | COUNT | performed at [facility], [address] | M/uL | LAB | | | | [address], | | | | | | [place] [address] | | | | + + + + + + | Hgb | 8.9 (L)Comment: Testing | 13.2 - 17.0 | EXTERNAL | | | | performed at [facility], [address] | g/dL | LAB | | | | [address], | | | | | | [place] [address] | | | | + + + + + + | Hematocrit, | 26.1 (L)Comment: Testing | 39.0 - 50.0 % | EXTERNAL | | | POC | performed at [facility], [address] | | LAB | | | | [address], | | | | | | [place] [address] | | | | + + + + + + | MCV | 99.8Comment: Testing | 80.0 - 100.0 fl | EXTERNAL | | | | performed at [facility], [address] | | LAB | | | | [address], | | | | | | [place] [address] | | | | + + + + + + | MCH | 34.1 (H)Comment: Testing | 27.0 - 34.0 pg | EXTERNAL | | | | performed at [facility], [address] | | LAB | | | | [address], | | | | | | [place] [address] | | | | + + + + + + | MCHC | 34.2Comment: Testing | 32.0 - 35.5 | EXTERNAL | | | | performed at [facility], [address] | g/dL | LAB | | | | [address], | | | | | | [place] [address] | | | | + + + + + + | RDW-CV | 41.6Comment: Testing | 37 - 53 fl | EXTERNAL | | | | performed at [facility], [address] | | LAB | | | | [address], | | | | | | [place] [address] | | | | + + + + + + | Platelet | 173Comment: Testing | 150 - 400 K/uL | EXTERNAL | | | Count | performed at [facility], [address] | | LAB | | | Plasma | [address], | | | | | | [place] [address] | | | | + + + + + + | MPV | 8.6Comment: Testing | fl | EXTERNAL | | | | performed at [facility], [address] | | LAB | | | | [address], | | | | | | [place] [address] | | | | + + + + + + | Differentia | MANUALComment: Testing | | EXTERNAL | | | l Type | performed at [facility], [address] | | LAB | | | | [address], | | | | | | [place] [address] | | | | + + + + + + | Segmented | 53Comment: Testing | % | EXTERNAL | | | Neutrophils | performed at [facility], [address] | | LAB | | | Manual | [address], | | | | | | [place], [place] [address] | | | | + + + + + + | % Bands | 31Comment: Testing | % | EXTERNAL | | | | performed at [facility], [address] | | LAB | | | | [address], | | | | | | [place], [place] [address] | | | | + + + + + + | % | 7Comment: Testing | % | EXTERNAL | | | Metamyelocy | performed at [facility], [address] | | LAB | | | [address] | [address], | | | | | | [place] [address] | | | | + + + + + + | Lymphocytes | 5Comment: Testing | % | EXTERNAL | | | Manual | performed at [facility], [address] | | LAB | | | | [address], | | | | | | [place] [address] | | | | + + + + + + | Monocytes | 4Comment: Testing | % | EXTERNAL | | | Manual | performed at [facility], [address] | | LAB | | | | [address], | | | | | | [place] [address] | | | | + + + + + + | Absolute | 1.78 (L)Comment: Testing | 1.90 - 7.40 | EXTERNAL | | | Neutrophils | performed at [facility], [address] | K/uL | LAB | | | | [address], | | | | | | [place] [address] | | | | + + + + + + | Bands | 1.05 (H)Comment: Testing | 0.00 - 0.20 | EXTERNAL | | | Manual | performed at [facility], [address] | K/uL | LAB | | | | [address], | | | | | | [place] [address] | | | | + + + + + + | Absolute | 0.24 (H)Comment: Testing | K/uL | EXTERNAL | | | Metamyelocy | performed at [facility], [address] | | LAB | | | [address] | [address], | | | | | | [place] [address] | | | | + + + + + + | Absolute | 0.17 (L)Comment: Testing | 1.00 - 3.90 | EXTERNAL | | | Lymphocytes | performed at [facility], [address] | K/uL | LAB | | | | [address], | | | | | | [place] [address] | | | | + + + + + + | Absolute | 0.14Comment: Testing | 0.00 - 0.80 | EXTERNAL | | | Monocytes | performed at [facility], [address] | K/uL | LAB | | | | [address], | | | | | | [place] [address] | | | | + + + + + + | RBC | 1+Comment: MACRONORMAL | | EXTERNAL | | | Morphology | PLT MORPHTesting | | LAB | | | | performed at [facility], [address] | | | | | | [address], | | | | | | [place] [address] | | | | | | | | | | + + + + + + + + | Specimen | + + | Blood specimen | | (specimen) | + + + +---------+ + + | Performing | Address | City/State/Zipcode | Phone Number | | Organization | | | | + +---------+ + + | EXTERNAL LAB | | | | + +---------+ + + Triglycerides (01/12/2015 2:44 AM PDT) + + + + + + | Component | Value | Ref Range | Performed | Pathologist | | | | | At | Signature | + + + + + + | Triglycerid | 94Comment: Testing | mg/dL | EXTERNAL | | | es | performed at [facility], [address] | | LAB | | | | [address], | | | | | | [place] [address] | | | | + + + + + + + + | Specimen | + + | | + + + +---------+ + + | Performing | Address | City/State/Zipcode | Phone Number | | Organization | | | | + +---------+ + + | EXTERNAL LAB | | | | + +---------+ + + Prealbumin (01/12/2015 2:44 AM PDT) + + + + + + | Component | Value | Ref Range | Performed | Pathologist | | | | | At | Signature | + + + + + + | Prealbumin | 8.9 (L)Comment: Testing | 20.0 - 40.0 | EXTERNAL | | | | performed at [facility], [address] | mg/dL | LAB | | | | [address], | | | | | | [place] [address] | | | | + + + + + + + + | Specimen | + + | | + + + +---------+ + + | Performing | Address | City/State/Zipcode | Phone Number | | Organization | | | | + +---------+ + + | EXTERNAL LAB | | | | + +---------+ + + Phosphorus (01/12/2015 2:44 AM PDT) + + + + + + | Component | Value | Ref Range | Performed | Pathologist | | | | | At | Signature | + + + + + + | PHOSPHORUS | 2.4Comment: Testing | 2.3 - 4.8 mg/dL | EXTERNAL | | | | performed at [facility] | | LAB | | | | [address];[place] | | | | | | [address] | | | | + + + + + + + + | Specimen | + + | Blood specimen | | (specimen) | + + + +---------+ + + | Performing | Address | City/State/Zipcode | Phone Number | | Organization | | | | + +---------+ + + | EXTERNAL LAB | | | | + +---------+ + + Magnesium (01/12/2015 2:44 AM PDT) + + + + + + | Component | Value | Ref Range | Performed | Pathologist | | | | | At | Signature | + + + + + + | Magnesium | 1.3 (L)Comment: Testing | 1.7 - 2.4 mg/dL | EXTERNAL | | | | performed at [facility];[address] | | LAB | | | | [address];[place], [place] | | | | | | [address] | | | | + + + + + + + + | Specimen | + + | Blood specimen | | (specimen) | + + + +---------+ + + | Performing | Address | City/State/Zipcode | Phone Number | | Organization | | | | + +---------+ + + | EXTERNAL LAB | | | | + +---------+ + + Lactic Acid (01/12/2015 2:44 AM PDT) + + + + + + | Component | Value | Ref Range | Performed | Pathologist | | | | | At | Signature | + + + + + + | Lactate | 2.7 (H)Comment: Testing | 0.4 - 2.0 | EXTERNAL | | | | performed at [facility];[address] | mmol/L | LAB | | | | [address];[place] | | | | | | [address] | | | | + + + + + + + + | Specimen | + + | Blood specimen | | (specimen) | + + + +---------+ + + | Performing | Address | City/State/Zipcode | Phone Number | | Organization | | | | + +---------+ + + | EXTERNAL LAB | | | | + +---------+ + + Comprehensive Metabolic Panel (01/12/2015 2:44 AM PDT) + + + + + + | Component | Value | Ref Range | Performed | Pathologist | | | | | At | Signature | + + + + + + | Na | 141Comment: Testing | 135 - 143 | EXTERNAL | | | | performed at [facility];[address] | mmol/L | LAB | | | | [address];[place], [place] | | | | | | [address] | | | | + + + + + + | K | 3.8Comment: Testing | 3.5 - 4.9 | EXTERNAL | | | | performed at [facility];[address] | mmol/L | LAB | | | | [address];[place] | | | | | | [address] | | | | + + + + + + | Cl | 113 (H)Comment: Testing | 99 - 109 mmol/L | EXTERNAL | | | | performed at [facility];[address] | | LAB | | | | [address];[place] | | | | | | [address] | | | | + + + + + + | CO2 | 19 (L)Comment: Testing | 23 - 32 mmol/L | EXTERNAL | | | | performed at [facility];[address] | | LAB | | | | [address];[place] | | | | | | [address] | | | | + + + + + + | Anion Gap | 12Comment: Testing | 5 - 20 mmol/L | EXTERNAL | | | | performed at [facility];[address] | | LAB | | | | [address];[place] | | | | | | [address] | | | | + + + + + + | Glucose, | 92Comment: Testing | 65 - 99 mg/dL | EXTERNAL | | | Fasting | performed at [facility];[address] | | LAB | | | | [address];[place] | | | | | | [address] | | | | + + + + + + | BUN | 17Comment: Testing | 8 - 25 mg/dL | EXTERNAL | | | | performed at [facility];[address] | | LAB | | | | [address];[place] | | | | | | [address] | | | | + + + + + + | Creatinine | 1.0Comment: Testing | 0.70 - 1.30 | EXTERNAL | | | | performed at [facility];[address] | mg/dL | LAB | | | | [address];[place] | | | | | | [address] | | | | + + + + + + | BUN/Creatin | 17Comment: Testing | | EXTERNAL | | | ine Ratio | performed at [facility];[address] | | LAB | | | | [address];[place] | | | | | | [address] | | | | + + + + + + | Calcium | 6.5 (L)Comment: Testing | 8.5 - 10.5 | EXTERNAL | | | | performed at [facility];[address] | mg/dL | LAB | | | | [address];[place] | | | | | | [address] | | | | + + + + + + | Protein, | 4.6 (L)Comment: Testing | 6.3 - 8.2 g/dL | EXTERNAL | | | Total | performed at [facility];[address] | | LAB | | | | [address];[place] | | | | | | [address] | | | | + + + + + + | Albumin | 1.8 (L)Comment: Testing | 3.3 - 4.8 g/dL | EXTERNAL | | | | performed at [facility];[address] | | LAB | | | | [address];[place] | | | | | | [address] | | | | + + + + + + | Globulin | 2.7Comment: Testing | 1.3 - 4.9 g/dL | EXTERNAL | | | | performed at [facility];[address] | | LAB | | | | [address];[place] | | | | | | [address] | | | | + + + + + + | A/G Ratio | 0.7 (L)Comment: Testing | 1.0 - 2.4 | EXTERNAL | | | | performed at [facility];[address] | | LAB | | | | [address];[place] | | | | | | [address] | | | | + + + + + + | Bilirubin | 1.4Comment: Testing | 0.1 - 1.5 mg/dL | EXTERNAL | | | Total | performed at [facility];[address] | | LAB | | | | [address];[place] | | | | | | [address] | | | | + + + + + + | ALP, | 72Comment: Testing | 35 - 115 U/L | EXTERNAL | | | External | performed at [facility];[address] | | LAB | | | | [address];[place] | | | | | | [address] | | | | + + + + + + | AST | 19Comment: Testing | 10 - 45 U/L | EXTERNAL | | | | performed at [facility];[address] | | LAB | | | | [address];[place] | | | | | | [address] | | | | + + + + + + | ALT | 16Comment: Testing | 10 - 65 U/L | EXTERNAL | | | | performed at [facility];[address] | | LAB | | | | [address];[place] | | | | | | [address] | | | | + + + [...] | | | | | | at [facility];[address] [place] [address] | | | | | | [facility];[place] [address] | | | | + + + + + + + + | Specimen | + + | Blood specimen | | (specimen) | + + + +---------+ + + | Performing | Address | City/State/Zipcode | Phone Number | | Organization | | | | + +---------+ + + | EXTERNAL LAB | | | | + +---------+ + + POC Glucose (01/11/2015 11:34 PM PDT) + + + + + + | Component | Value | Ref Range | Performed | Pathologist | | | | | At | Signature | + + + + + + | Glucose, | 104 (H)Comment: Testing | 65 - 99 mg/dL | EXTERNAL | | | Fingerstick | performed at [facility];[address] | | LAB | | | | [address];[place] | | | | | | [address] | | | | + + + + + + + + | Specimen | + + | | + + + +---------+ + + | Performing | Address | City/State/Zipcode | Phone Number | | Organization | | | | + +---------+ + + | EXTERNAL LAB | | | | + +---------+ + + XR Chest 1 Vw (01/11/2015 11:24 PM PDT) + + | Specimen | + + | | + + + + + | Impressions | Performed At | + + + | 1. Right lower lobe airspace consolidation. 2. Satisfactory | | | endotracheal and nasogastric tube placement. [facility] | | | Electronically signed by Toribio Gallo MD on Jan 12 2015 12:19AM | | | Referring Provider Line: [phone] ID: [id number] | | + + + + + + | Narrative | Performed At | + + + | EXAM: CHEST RADIOGRAPHY EXAM DATE: 01/11/2015 11:25 PM. | | | CLINICAL HISTORY: Tube/line position. COMPARISON: 01/11/2015. | | | TECHNIQUE: 1 view. FINDINGS: Lungs/Pleura: Right lower lobe | | | airspace consolidation slightly increased. Left lung remains clear. | | | Mediastinum: Within exam limitations, cardiomediastinal contour is | | | normal. Other: Tip of endotracheal tube in satisfactory position | | | approximately 4.5 cm above kavitha. Nasogastric tube is coiled however | | | is well within the stomach. Picc line noted with tip in the lower SVC. | | | | | + + + + + | Procedure Note | + + | Frederic, Rad Conversion - 11/10/2018 8:48 AM PDT EXAM:CHEST RADIOGRAPHY EXAM DATE: | | 01/11/2015 11:25 PM. CLINICAL HISTORY: Tube/line position. COMPARISON: 01/11/2015. | | TECHNIQUE: 1 view. FINDINGS:Lungs/Pleura: Right lower lobe airspace consolidation | | slightly increased. Left lung remains clear. Mediastinum: Within exam limitations, | | cardiomediastinal contour is normal. Other: Tip of endotracheal tube in satisfactory | | position approximately 4.5 cm above kavitha. Nasogastric tube is coiled however is well | | within the stomach. Picc line noted with tip in the lower SVC. IMPRESSION: 1. Right | | lower lobe airspace consolidation.2. Satisfactory endotracheal and nasogastric tube | | placement. [facility] Electronically signed by Toribio Gallo MD on Jan 12 2015 12:19AM | | Referring Provider Line: [phone] ID: [id number] | | | |FINDINGS: | |Lungs/Pleura: Right lower lobe airspace consolidation slightly increased. Left lung remains clear. | | | |Mediastinum: Within exam limitations, cardiomediastinal contour is normal. | | | |Other: Tip of endotracheal tube in satisfactory position approximately 4.5 cm above kavitha. Nasogastric tube is coiled however is well within the stomach. Picc line noted with tip in the lower SVC. | | | |IMPRESSION: | | | | | |1. Right lower lobe airspace consolidation. | |2. Satisfactory endotracheal and nasogastric tube placement. | | | |[facility] | | | | Electronically signed by Toribio Gallo MD on Jan 12 2015 12:19AM Referring Provider Li ne: [phone] ID: [id number] | + + XR Abdomen AP (01/11/2015 11:11 PM PDT) + + | Specimen | + + | | + + + + + | Impressions | Performed At | + + + | There are a few mildly dilated small bowel loops suggesting ileus or | | | developing obstruction. [facility] ADDENDUM: 02/12/15 17:03 | | | Clinical History: Rectal cancer. Electronically signed by | | | Toribio Gallo MD on Feb 12 2015 5:04PM Referring Provider Line: | | | [phone] ID: [id number] | | + + + + + + | Narrative | Performed At | + + + | EXAM: ABDOMEN RADIOGRAPHY EXAM DATE: 01/11/2015 11:13 PM. | | | CLINICAL HISTORY: Other (see comments). COMPARISON: 01/11/2015. | | | TECHNIQUE: 1 view. FINDINGS: Bowel Gas Pattern: Several mildly | | | dilated small bowel loops centrally within the abdomen. Right lower | | | quadrant enterostomy noted. Other: None. | | + + + + + | Procedure Note | + + | Billy De La Garza Conversion - 11/10/2018 8:48 AM PDT EXAM:ABDOMEN RADIOGRAPHY EXAM DATE: | | 01/11/2015 11:13 PM. CLINICAL HISTORY: Other (see comments). COMPARISON: 01/11/2015. | | TECHNIQUE: 1 view. FINDINGS:Bowel Gas Pattern: Several mildly dilated small bowel loops | | centrally within the abdomen. Right lower quadrant enterostomy noted. Other: None. | | IMPRESSION: There are a few mildly dilated small bowel loops suggesting ileus or | | developing obstruction. [facility]ENDUM: 02/12/15 17:03 Clinical History: Rectal cancer. | | Electronically signed by Toribio Gallo MD on Feb 12 2015 5:04PM Referring Provider | | Line: [phone] ID: [id number] | | | |TECHNIQUE: 1 view. | | | |FINDINGS: | |Bowel Gas Pattern: Several mildly dilated small bowel loops centrally within the abdomen. R ight lower quadrant enterostomy noted. | | | |Other: None. | | | |IMPRESSION: | |There are a few mildly dilated small bowel loops suggesting ileus or developing obstruction . | | | |[facility] | |ADDENDUM: 02/12/15 17:03 | | | |Clinical History: Rectal cancer. | | | | | | Electronically signed by Toribio Gallo MD on Feb 12 2015 5:04PM Referring Provider Li ne: [phone] ID: [id number] | + + XR Chest 1 Vw (01/11/2015 10:46 PM PDT) + + | Specimen | + + | | + + + + + | Impressions | Performed At | + + + | Right lower lobe airspace consolidation. [facility] | | | Electronically signed by Toribio Gallo MD on Jan 12 2015 12:01AM | | | Referring Provider Line: [phone] ID: [id number] | | + + + + + + | Narrative | Performed At | + + + | EXAM: CHEST RADIOGRAPHY EXAM DATE: 01/11/2015 10:46 PM. | | | CLINICAL HISTORY: SOB. COMPARISON: 08/12/2014 CT chest. | | | TECHNIQUE: 1 view. FINDINGS: Lungs/Pleura: New airspace | | | consolidation involving the right lower lobe. There is pulmonary | | | vascular congestion. Left lung remains clear. No pleural effusion or | | | pneumothorax. Mediastinum: Within exam limitations, | | | cardiomediastinal contour is normal. Other: None. | | + + + + + | Procedure Note | + + | FredericBilly Conversion - 11/10/2018 8:48 AM PDT EXAM:CHEST RADIOGRAPHY EXAM DATE: | | 01/11/2015 10:46 PM. CLINICAL HISTORY: SOB. COMPARISON: 08/12/2014 CT chest. TECHNIQUE: 1 | | view. FINDINGS:Lungs/Pleura: New airspace consolidation involving the right lower lobe. | | There is pulmonary vascular congestion. Left lung remains clear. No pleural effusion or | | pneumothorax. Mediastinum: Within exam limitations, cardiomediastinal contour is | | normal. Other: None. IMPRESSION: Right lower lobe airspace consolidation. [facility] | | Electronically signed by Toribio Gallo MD on Jan 12 2015 12:01AM Referring Provider | | Line: [phone] ID: [id number] | | | |TECHNIQUE: 1 view. | | | |FINDINGS: | |Lungs/Pleura: New airspace consolidation involving the right lower lobe. There is pulmonary vascular congestion. Left lung remains clear. No pleural effusion or pneumothorax. | | | |Mediastinum: Within exam limitations, cardiomediastinal contour is normal. | | | |Other: None. | | | |IMPRESSION: | |Right lower lobe airspace consolidation. | | | |[facility] | | | | Electronically signed by Toribio Gallo MD on Jan 12 2015 12:01AM Referring Provider Paula ne: [phone] ID: [id number] | + + POC Glucose (01/11/2015 10:23 PM PDT) + + + + + + | Component | Value | Ref Range | Performed | Pathologist | | | | | At | Signature | + + + + + + | Glucose, | 95Comment: Testing | 65 - 99 mg/dL | EXTERNAL | | | Fingerstick | performed at [facility];[address] | | LAB | | | | [address];[place], [place] | | | | | | [address] | | | | + + + + + + + + | Specimen | + + | | + + + +---------+ + + | Performing | Address | City/State/Zipcode | Phone Number | | Organization | | | | + +---------+ + + | EXTERNAL LAB | | | | + +---------+ + + Lactic Acid (01/11/2015 9:17 PM PDT) + + + + + + | Component | Value | Ref Range | Performed | Pathologist | | | | | At | Signature | + + + + + + | Lactate | 5.0 (H)Comment: Testing | 0.4 - 2.0 | EXTERNAL | | | | performed at [facility];[address] | mmol/L | LAB | | | | [address];[place], [place] | | | | | | [address] | | | | + + + + + + + + | Specimen | + + | Blood specimen | | (specimen) | + + + +---------+ + + | Performing | Address | City/State/Zipcode | Phone Number | | Organization | | | | + +---------+ + + | EXTERNAL LAB | | | | + +---------+ + + Urinalysis, Reflex Microscopic and/or Culture (01/11/2015 9:03 PM PDT) + + + + + + | Component | Value | Ref Range | Performed | Pathologist | | | | | At | Signature | + + + + + + | Color | ORANGEComment: DIPSTICK | | EXTERNAL | | | | NOT REPORTED DUE TO | | LAB | | | | COLOR | | | | | | INTERFERENCETesting | | | | | | performed at [facility], [address] | | | | | | [address], | | | | | | [place] [address] | | | | + + + + + + + + | Specimen | + + | | + + + +---------+ + + | Performing | Address | City/State/Zipcode | Phone Number | | Organization | | | | + +---------+ + + | EXTERNAL LAB | | | | + +---------+ + + Urinalysis, Microscopic Only (01/11/2015 9:03 PM PDT) + + + + + + | Component | Value | Ref Range | Performed | Pathologist | | | | | At | Signature | + + + + + + | WBC, UA | 0-2Comment: Testing | 0 - 5 /hpf | EXTERNAL | | | | performed at [facility], [address] | | LAB | | | | [address], | | | | | | [place] [address] | | | | + + + + + + | RBC, UA | 6-10Comment: Testing | 0 - 2 /hpf | EXTERNAL | | | | performed at [facility], [address] | | LAB | | | | [address], | | | | | | [place] [address] | | | | + + + + + + | Epithelial | 6-10Comment: Testing | /lpf | EXTERNAL | | | Cells | performed at [facility], [address] | | LAB | | | | [address], | | | | | | [place] [address] | | | | + + + + + + | Bacteria, | 2+ (A)Comment: Testing | | EXTERNAL | | | UA | performed at [facility], [address] | | LAB | | | [address], | | | | | | [place] [address] | | | | + + + + + + | HYALINE | 6-10Comment: Testing | | EXTERNAL | | | CASTS UA | performed at [facility], [address] | | LAB | | | [address], | | | | | | [place] [address] | | | | + + + + + + + + | Specimen | + + | | + + + +---------+ + + | Performing | Address | City/State/Zipcode | Phone Number | | Organization | | | | + +---------+ + + | EXTERNAL LAB | | | | + +---------+ + + Culture, Blood, 2nd Specimen (01/11/2015 8:13 PM PDT) + + | Specimen | + + | Blood specimen | | (specimen) | + + + + + | Narrative | Performed At | + + + | Specimen Description BLOOD SPECIAL | EXTERNAL LAB | | REQUESTS L HAND | | | Testing performed at [facility];[address] | | [address];[place] [address] GRAM STAIN | | | GRAM NEGATIVE RODS | | | SEEN IN ANAEROBIC BOTTLE | | | SMEAR RESULTS CALLED TO AND READ BACK BY: | | | YOCASTA Garcia RN [facility] ICU 0945 | | | 01/12/15 [facility] CULTURE | | | ESCHERICHIA COLIAbnormal | | | FINDING OF ORGANISM GROWTHAbnormal | | | TIME TO DETECTION: | | | 10 HOURS 48 MINUTES | | | Testing performed at [facility], [address] | | [address], [place] [address] Suscepibility for - | | | ESCHERICHIA COLI Ampicillin | | | SUSCEPTIBLESensitive Ampicillin + Sulbactam | | | SUSCEPTIBLESensitive Cefepime | | | SUSCEPTIBLESensitive Cefoxitin | | | SUSCEPTIBLESensitive Ceftazidime | | | SUSCEPTIBLESensitive Ceftriaxone | | | SUSCEPTIBLESensitive Ciprofloxacin | | | SUSCEPTIBLESensitive Gentamicin | | | SUSCEPTIBLESensitive Levofloxacin | | | SUSCEPTIBLESensitive Piperacillin + Tazobactam | | | SUSCEPTIBLESensitive Tobramycin | | | SUSCEPTIBLESensitive Trimethoprim + | | | SulfamethoxazoleSUSCEPTIBLESensitive | | + + + + +---------+ + + | Performing | Address | City/State/Zipcode | Phone Number | | Organization | | | | + +---------+ + + | EXTERNAL LAB | | | | + +---------+ + + Culture, Blood (01/11/2015 8:09 PM PDT) + + | Specimen | + + | Blood specimen | | (specimen) | + + + + + | Narrative | Performed At | + + + | Specimen Description BLOOD, PERIPHERAL DRAW | EXTERNAL LAB | | CULTURE NO GROWTH | | | Testing performed at [facility], | | | [address] [facility] [place] [address] | | + + + + +---------+ + + | Performing | Address | City/State/Zipcode | Phone Number | | Organization | | | | + +---------+ + + | EXTERNAL LAB | | | | + +---------+ + + Procalcitonin (01/11/2015 8:08 PM PDT) + + + + + + | Component | Value | Ref Range | Performed | Pathologist | | | | | At | Signature | + + + + + + | PROCALCITON | 43.58 (H)Comment: | ng/mL | EXTERNAL | | | IN | INTERPRETIVE | | LAB | | | | INFORMATION: | | | | | | PROCALCITONIN PCT <= | | | | | | 0.5 ng/mL: Low risk | | | | | | for progression to | | | | | | severe systemic | | | | | | bacterial infection | | | | | | (severe sepsis/septic | | | | | | shock). Does not | | | | | | exclude an infection, | | | | | | because localized | | | | | | infections may be | | | | | | associated with such low | | | | | | levels. If PCT is | | | | | | measured very early | | | | | | after bacterial | | | | | | challenge (usually <6 | | | | | | hours), results may | | | | | | still be low and | | | | | | should re-assess PCT | | | | | | 6-24 hours later. PCT | | | | | | >0.5 and <= 2 ng/mL: | | | | | | Moderate risk for | | | | | | progression to severe | | | | | | systemic infection | | | | | | (severe sepsis/septic | | | | | | shock). Other | | | | | | conditions are known | | | | | | to elevate PCT, patient | | | | | | should be closely | | | | | | monitored both | | | | | | clinically and by | | | | | | re-assessing PCT | | | | | | within 6-24 hours. PCT > | | | | | | 2 ng/mL: High | | | | | | likelihood for | | | | | | progression to severe | | | | | | systemic bacterial | | | | | | infection (severe | | | | | | sepsis/septic shock). | | | | | | PCT >= 10 ng/mL: | | | | | | High likelihood of | | | | | | severe sepsis or septic | | | | | | shock.Testing performed | | | | | | at [facility];[address] [place] [address] | | | | | | [facility];[place] [address] | | | | + + + + + + + + | Specimen | + + | | + + + +---------+ + + | Performing | Address | City/State/Zipcode | Phone Number | | Organization | | | | + +---------+ + + | EXTERNAL LAB | | | | + +---------+ + + Troponin I (01/11/2015 8:08 PM PDT) + + + + + + | Component | Value | Ref Range | Performed | Pathologist | | | | | At | Signature | + + + + + + | Troponin I, | 0.034Comment: 0.00 to | 0.00 - 0.10 | EXTERNAL | | | Qual | 0.10 CONSISTENT WITH | ng/mL | LAB | | | | NORMAL POPULATION0.11 to | | | | | | 0.60 CONSISTENT WITH | | | | | | INCREASED RISK FOR | | | | | | ADVERSE OUTCOMES> 0.60 | | | | | | CONSISTENT | | | | | | WITH WHO CRITERIA FOR | | | | | | ACUTE NC Testing | | | | | | performed at [facility];[address] | | | | | | [address];[place], [place] | | | | | | [address] | | | | + + + [...] + +---------+ + + External Lab: CBC (01/11/2015 8:08 PM PDT) + + + + + + | Component | Value | Ref Range | Performed | Pathologist | | | | | At | Signature | + + + + + + | WBC | 4.17Comment: Testing | 3.80 - 11.00 | EXTERNAL | | | | performed at [facility];[address] | K/uL | LAB | | | | [address];[place] | | | | | | [address] | | | | + + + + + + | RED CELL | 3.51 (L)Comment: Testing | 4.20 - 5.70 | EXTERNAL | | | COUNT | performed at [facility];[address] | M/uL | LAB | | | | [address];[place] | | | | | | [address] | | | | + + + + + + | Hgb | 12.1 (L)Comment: Testing | 13.2 - 17.0 | EXTERNAL | | | | performed at [facility];[address] | g/dL | LAB | | | | [address];[place] | | | | | | [address] | | | | + + + + + + | Hematocrit, | 34.3 (L)Comment: Testing | 39.0 - 50.0 % | EXTERNAL | | | POC | performed at [facility];[address] | | LAB | | | | [address];[place] | | | | | | [address] | | | | + + + + + + | MCV | 97.9Comment: Testing | 80.0 - 100.0 fl | EXTERNAL | | | | performed at [facility];[address] | | LAB | | | | [address];[place] | | | | | | [address] | | | | + + + + + + | MCH | 34.4 (H)Comment: Testing | 27.0 - 34.0 pg | EXTERNAL | | | | performed at [facility];[address] | | LAB | | | | [address];[place] | | | | | | [address] | | | | + + + + + + | MCHC | 35.1Comment: Testing | 32.0 - 35.5 | EXTERNAL | | | | performed at [facility];[address] | g/dL | LAB | | | | [address];[place] | | | | | | [address] | | | | + + + + + + | RDW-CV | 41.6Comment: Testing | 37 - 53 fl | EXTERNAL | | | | performed at [facility];[address] | | LAB | | | | [address];[place] | | | | | | [address] | | | | + + + + + + | Platelet | 252Comment: Testing | 150 - 400 K/uL | EXTERNAL | | | Count | performed at [facility];[address] | | LAB | | | Plasma | [address];[place] | | | | | | [address] | | | | + + + + + + | MPV | 7.8Comment: Testing | fl | EXTERNAL | | | | performed at [facility];[address] | | LAB | | | | [address];[place] | | | | | | [address] | | | | + + + + + + | Differentia | MANUALComment: Testing | | EXTERNAL | | | l Type | performed at [facility];[address] | | LAB | | | | [address];[place] | | | | | | [address] | | | | + + + + + + | Segmented | 38Comment: Testing | % | EXTERNAL | | | Neutrophils | performed at [facility];[address] | | LAB | | | Manual | [address];[place] | | | | | | [address] | | | | + + + + + + | % Bands | 36Comment: Testing | % | EXTERNAL | | | | performed at [facility];[address] | | LAB | | | | [address];[place] | | | | | | [id number] | | | | + + + + + + | Lymphocytes | 6Comment: Testing | % | EXTERNAL | | | Manual | performed at [facility];[address] | | LAB | | | | [address];[place] | | | | | | [id number] | | | | + + + + + + | Monocytes | 20Comment: Testing | % | EXTERNAL | | | Manual | performed at [facility];[address] | | LAB | | | | [address];[place] | | | | | | [id number] | | | | + + + + + + | RBC | RBC AND PLT MORPHOLOGY | | EXTERNAL | | | Morphology | APPEAR NORMALComment: | | LAB | | | | Testing performed at | | | | | | [facility];[address];[place] [id number] | | | | + + + + + + + + | Specimen | + + | Blood specimen | | (specimen) | + + + +---------+ + + | Performing | Address | City/State/Zipcode | Phone Number | | Organization | | | | + +---------+ + + | EXTERNAL LAB | | | | + +---------+ + + Lactate Dehydrogenase (01/11/2015 8:08 PM PDT) + + + + + + | Component | Value | Ref Range | Performed | Pathologist | | | | | At | Signature | + + + + + + | LDH TOTAL | 134Comment: Testing | 115 - 225 U/L | EXTERNAL | | | | performed at [facility];888 | | LAB | | | | [address];[place] | | | | | | [address] | | | | + + + [...] + +---------+ + + Basic Metabolic Panel (01/11/2015 8:08 PM PDT) + + + + + + | Component | Value | Ref Range | Performed | Pathologist | | | | | At | Signature | + + + + + + | Na | 135Comment: Testing | 135 - 143 | EXTERNAL | | | | performed at [facility];888 | mmol/L | LAB | | | | [address];[place] | | | | | | [address] | | | | + + + + + + | K | 4.0Comment: Testing | 3.5 - 4.9 | EXTERNAL | | | | performed at [facility];888 | mmol/L | LAB | | | | [address];[place] | | | | | | [address] | | | | + + + + + + | Cl | 105Comment: Testing | 99 - 109 mmol/L | EXTERNAL | | | | performed at [facility];[address] | | LAB | | | | [address];[place] | | | | | | [address] | | | | + + + + + + | CO2 | 23Comment: Testing | 23 - 32 mmol/L | EXTERNAL | | | | performed at [facility];[address] | | LAB | | | | [address];[place] | | | | | | [address] | | | | + + + + + + | Anion Gap | 11Comment: Testing | 5 - 20 mmol/L | EXTERNAL | | | | performed at [facility];[address] | | LAB | | | | [address];[place] | | | | | | [address] | | | | + + + + + + | Glucose, | 134 (H)Comment: Testing | 65 - 99 mg/dL | EXTERNAL | | | Fasting | performed at [facility];[address] | | LAB | | | | [address];[place] | | | | | | [address] | | | | + + + + + + | BUN | 19Comment: Testing | 8 - 25 mg/dL | EXTERNAL | | | | performed at [facility];[address] | | LAB | | | | [address];[place] | | | | | | [address] | | | | + + + + + + | Creatinine | 1.8 (H)Comment: Testing | 0.70 - 1.30 | EXTERNAL | | | | performed at [facility];888 | mg/dL | LAB | | | | [address];[place] | | | | | | [address] | | | | + + + + + + | BUN/Creatin | 10Comment: Testing | | EXTERNAL | | | ine Ratio | performed at [facility];[address] | | LAB | | | | [address];[place] | | | | | | [address] | | | | + + + + + + | Calcium | 8.1 (L)Comment: Testing | 8.5 - 10.5 | EXTERNAL | | | | performed at [facility];888 | mg/dL | LAB | | | | [address];[place] | | | | | | [address] | | | | + + + + + + | Estimated | 40 (L)Comment: GFR <60: | mL/min/1.73m2 | EXTERNAL | [...] | | | | | | at [facility];[address] [place] [address] | | | | | | [facility];[place] [address] | | | | + + + + + + + + | Specimen | + + | Blood specimen | | (specimen) | + + + +---------+ + + | Performing | Address | City/State/Zipcode | Phone Number | | Organization | | | | + +---------+ + + | EXTERNAL LAB | | | | + +---------+ + + Culture, Blood, 2nd Specimen (01/11/2015 12:47 PM PDT) + + | Specimen | + + | Blood specimen | | (specimen) | + + + + + | Narrative | Performed At | + + + | Specimen Description BLOOD, PERIPHERAL DRAW | EXTERNAL LAB | | SPECIAL REQUESTS LEFT HAND | | | Testing performed at [facility];[address] | | | [facility];[place] [address] CULTURE | | | NO GROWTH | | | Testing performed at [facility], [address], [place], [place] | | | [address] | | + + + + +---------+ + + | Performing | Address | City/State/Zipcode | Phone Number | | Organization | | | | + +---------+ + + | EXTERNAL LAB | | | | + +---------+ + + Culture, Blood (01/11/2015 12:33 PM PDT) + + | Specimen | + + | Blood specimen | | (specimen) | + + + + + | Narrative | Performed At | + + + | Specimen Description BLOOD, PERIPHERAL DRAW | EXTERNAL LAB | | SPECIAL REQUESTS RIGHT HAND | | | Testing performed at [facility];[address] | | | [facility];[place] [address] CULTURE | | | NO GROWTH | | | Testing performed at [facility], [address], [place], [place] | | | [address] | | + + + + +---------+ + + | Performing | Address | City/State/Zipcode | Phone Number | | Organization | | | | + +---------+ + + | EXTERNAL LAB | | | | + +---------+ + + XR Abdomen AP (01/11/2015 10:22 AM PDT) + + | Specimen | + + | | + + + + + | Impressions | Performed At | + + + | 1. Nasogastric catheter in the stomach. | | + + + + + + | Narrative | Performed At | + + + | JOSE LOZA ABDOMEN 1 VIEW 01/11/2015 10:22 AM History: | | | 64 years. Male. Nasogastric catheter placement verification. | | | Technique: Single supine view the abdomen. Findings: The tip of | | | the nasogastric catheter is coiled in the fundus of the stomach. | | | Mildly dilated loops of gas-filled small bowel are visualized in the | | | upper abdomen. | | + + + + + | Procedure Note | + + | Billy De La Garza Conversion - 11/10/2018 8:48 AM BECKA TAVERAS ABDOMEN 1 | | VIEW01/11/2015 10:22 AM History: 64 years. Male. Nasogastric catheter placement | | verification. Technique: Single supine view the abdomen. Findings: The tip of the | | nasogastric catheter is coiled in the fundus of the stomach. Mildly dilated loops of | | gas-filled small bowel are visualized in the upper abdomen. IMPRESSION: 1. Nasogastric | | catheter in the stomach. | | 10:37 AM | | | |Findings: The tip of the nasogastric catheter is coiled in the fundus of the stomach. Mild ly dilated loops of gas-filled small bowel are visualized in the upper abdomen. | | | |IMPRESSION: | |1. Nasogastric catheter in the stomach. | | | | | + + XR Abd Supine and Upright w 1 Vw Chest (01/11/2015 7:40 AM PDT) + + | Specimen | + + | | + + + + + | Impressions | Performed At | + + + | 1. Probable high-grade mid or distal small bowel obstruction. 2. | | | Possible ascites. 3. A catheter overlies the abdomen with an | | | uncertain position, by radiography alone. | | + + + + + + | Narrative | Performed At | + + + | JOSE EATON XR ABDOMEN ACUTE SERIES 01/11/2015 7:31 AM | | | History: 64 years. Male. Acute vomiting. History of rectal | | | cancer. Technique: Supine and erect views of the abdomen were | | | performed with a PA view of the chest Findings: Gas-filled | | | dilated loops of small bowel are visualized in the central abdomen, | | | with a maximum caliber of approximately 35 mm. Air-fluid levels are | | | visualized in these loops of bowel. The distal ileum appears to be | | | devoid of gas and is not clearly identified. No colonic gas | | | identified. This pattern suggests a high-grade mid or distal small | | | bowel obstruction. Paralytic ileus cannot be excluded. No free | | | air visualized. Organ margins are obscured. Ascites may be | | | present. No lung consolidation visualized. The cardiac volume is | | | normal. The right internal jugular central venous Mediport catheter | | | is visualized in good position. A drainage catheter is visualized | | | overlying the abdomen extending from the RIGHT upper quadrant to the | | | LEFT mid abdomen Osteopenia is moderate. Bilateral hip | | | arthroplasty is identified. | | + + + + + | Procedure Note | + + | Frederic, Rad Conversion - 11/10/2018 8:48 AM PDT JOSE EATONXR ABDOMEN ACUTE | | [id number]/11/2015 7:31 AM History: 64 years. Male. Acute vomiting. History of rectal | | cancer. Technique: Supine and erect views of the abdomen were performed with a PA view | | of the chest Findings: Gas-filled dilated loops of small bowel are visualized in the | | central abdomen, with a maximum caliber of approximately 35 mm. Air-fluid levels are | | visualized in these loops of bowel. The distal ileum appears to be devoid of gas and is | | not clearly identified. No colonic gas identified. This pattern suggests a high-grade | | mid or distal small bowel obstruction. Paralytic ileus cannot be excluded. No free air | | visualized. Organ margins are obscured. Ascites may be present. No lung consolidation | | visualized. The cardiac volume is normal. The right internal jugular central venous | | Mediport catheter is visualized in good position. A drainage catheter is visualized | | overlying the abdomen extending from the RIGHT upper quadrant to the LEFT mid abdomen | | Osteopenia is moderate. Bilateral hip arthroplasty is identified. IMPRESSION: 1. | | Probable high-grade mid or distal small bowel obstruction.2. Possible ascites.3. A | | catheter overlies the abdomen with an uncertain position, by radiography alone. | | | | | |Osteopenia is moderate. Bilateral hip arthroplasty is identified. | | | |IMPRESSION: | |1. Probable high-grade mid or distal small bowel obstruction. | |2. Possible ascites. | |3. A catheter overlies the abdomen with an uncertain position, by radiography alone. | | | | | + + External Lab: CBC (01/11/2015 4:41 AM PDT) + + + + + + | Component | Value | Ref Range | Performed | Pathologist | | | | | At | Signature | + + + + + + | WBC | 4.58Comment: Testing | 3.80 - 11.00 | EXTERNAL | | | | performed at [facility], [address] | K/uL | LAB | | | | [address], | | | | | | [place] [address] | | | | + + + + + + | RED CELL | 3.64 (L)Comment: Testing | 4.20 - 5.70 | EXTERNAL | | | COUNT | performed at [facility], [address] | M/uL | LAB | | | | [address], | | | | | | [place] [address] | | | | + + + + + + | Hgb | 12.4 (L)Comment: Testing | 13.2 - 17.0 | EXTERNAL | | | | performed at [facility], [address] | g/dL | LAB | | | | [address], | | | | | | [place] [address] | | | | + + + + + + | Hematocrit, | 35.9 (L)Comment: Testing | 39.0 - 50.0 % | EXTERNAL | | | POC | performed at [facility], [address] | | LAB | | | | [address], | | | | | | [place] [address] | | | | + + + + + + | MCV | 98.7Comment: Testing | 80.0 - 100.0 fl | EXTERNAL | | | | performed at [facility], [address] | | LAB | | | | [address], | | | | | | [place] [address] | | | | + + + + + + | MCH | 34.0Comment: Testing | 27.0 - 34.0 pg | EXTERNAL | | | | performed at [facility], [address] | | LAB | | | | [address], | | | | | | [place] [address] | | | | + + + + + + | MCHC | 34.5Comment: Testing | 32.0 - 35.5 | EXTERNAL | | | | performed at [facility], [address] | g/dL | LAB | | | | [address], | | | | | | [place] [address] | | | | + + + + + + | RDW-CV | 41.1Comment: Testing | 37 - 53 fl | EXTERNAL | | | | performed at [facility], [address] | | LAB | | | | [address], | | | | | | [place] [address] | | | | + + + + + + | Platelet | 266Comment: Testing | 150 - 400 K/uL | EXTERNAL | | | Count | performed at [facility], [address] | | LAB | | | Plasma | [address], | | | | | | [place] [address] | | | | + + + + + + | MPV | 8.6Comment: Testing | fl | EXTERNAL | | | | performed at [facility], [address] | | LAB | | | | [address], | | | | | | [place] [address] | | | | + + + + + + | Differentia | AUTOMATEDComment: | | EXTERNAL | | | l Type | Testing performed at | | LAB | | | | [facility], [address] | | | | | | [place] | | | | | | [address] | | | | + + + + + + | % Segmented | 73.35Comment: Testing | % | EXTERNAL | | | | performed at [facility], [address] | | LAB | | | Neutrophils | [address], | | | | | | [place] [address] | | | | + + + + + + | % | 8.54Comment: Testing | % | EXTERNAL | | | Lymphocytes | performed at [facility], [address] | | LAB | | | | [address], | | | | | | [place], [place] [address] | | | | + + + + + + | % Monocytes | 13.66Comment: Testing | % | EXTERNAL | | | | performed at [facility], [address] | | LAB | | | | [address], | | | | | | [place] [address] | | | | + + + + + + | % | 4.07Comment: Testing | % | EXTERNAL | | | Eosinophils | performed at [facility], [address] | | LAB | | | | [address], | | | | | | [place] [address] | | | | + + + + + + | % Basophils | 0.38Comment: Testing | % | EXTERNAL | | | | performed at [facility], [address] | | LAB | | | | [address], | | | | | | [place] [address] | | | | + + + + + + | Absolute | 3.36Comment: Testing | 1.90 - 7.40 | EXTERNAL | | | Segmented | performed at [facility], [address] | K/uL | LAB | | | Neutrophils | [address], | | | | | | [place] [address] | | | | + + + + + + | Absolute | 0.39 (L)Comment: Testing | 1.00 - 3.90 | EXTERNAL | | | Lymphocytes | performed at [facility], [address] | K/uL | LAB | | | | [address], | | | | | | [place] [address] | | | | + + + + + + | Absolute | 0.63Comment: Testing | 0.00 - 0.80 | EXTERNAL | | | Monocytes | performed at [facility], [address] | K/uL | LAB | | | | [address], | | | | | | [place] [address] | | | | + + + + + + | Absolute | 0.19Comment: Testing | 0.00 - 0.50 | EXTERNAL | | | Eosinophils | performed at [facility], [address] | K/uL | LAB | | | | [address], | | | | | | [place] [address] | | | | + + + + + + | Absolute | 0.02Comment: Testing | 0.00 - 0.10 | EXTERNAL | | | Basophils | performed at [facility], [address] | K/uL | LAB | | | | [address], | | | | | | [place] [address] | | | | + + + + + + + + | Specimen | + + | Blood specimen | | (specimen) | + + + +---------+ + + | Performing | Address | City/State/Zipcode | Phone Number | | Organization | | | | + +---------+ + + | EXTERNAL LAB | | | | + +---------+ + + Phosphorus (01/11/2015 4:41 AM PDT) + + + + + + | Component | Value | Ref Range | Performed | Pathologist | | | | | At | Signature | + + + + + + | PHOSPHORUS | 2.8Comment: Testing | 2.3 - 4.8 mg/dL | EXTERNAL | | | | performed at [facility], [address] | | LAB | | | | [address], | | | | | | [place] [address] | | | | + + + + + + + + | Specimen | + + | Blood specimen | | (specimen) | + + + +---------+ + + | Performing | Address | City/State/Zipcode | Phone Number | | Organization | | | | + +---------+ + + | EXTERNAL LAB | | | | + +---------+ + + Magnesium (01/11/2015 4:41 AM PDT) + + + + + + | Component | Value | Ref Range | Performed | Pathologist | | | | | At | Signature | + + + + + + | Magnesium | 1.9Comment: Testing | 1.7 - 2.4 mg/dL | EXTERNAL | | | | performed at [facility], [address] | | LAB | | | | [address], | | | | | | [place] [address] | | | | + + + [...] + +---------+ + + Basic Metabolic Panel (01/11/2015 4:41 AM PDT) + + + + + + | Component | Value | Ref Range | Performed | Pathologist | | | | | At | Signature | + + + + + + | Na | 129 (L)Comment: Testing | 135 - 143 | EXTERNAL | | | | performed at [facility], [address] | mmol/L | LAB | | | | [address], | | | | | | [place] [address] | | | | + + + + + + | K | 4.1Comment: Testing | 3.5 - 4.9 | EXTERNAL | | | | performed at [facility], [address] | mmol/L | LAB | | | | [address], | | | | | | [place] [address] | | | | + + + + + + | Cl | 100Comment: Testing | 99 - 109 mmol/L | EXTERNAL | | | | performed at [facility], [address] | | LAB | | | | [address], | | | | | | [place] [address] | | | | + + + + + + | CO2 | 23Comment: Testing | 23 - 32 mmol/L | EXTERNAL | | | | performed at [facility], [address] | | LAB | | | | [address], | | | | | | [place] [address] | | | | + + + + + + | Anion Gap | 10Comment: Testing | 5 - 20 mmol/L | EXTERNAL | | | | performed at [facility], [address] | | LAB | | | | [address], | | | | | | [place] [address] | | | | + + + + + + | Glucose, | 135 (H)Comment: Testing | 65 - 99 mg/dL | EXTERNAL | | | Fasting | performed at [facility], [address] | | LAB | | | | [address], | | | | | | [place] [address] | | | | + + + + + + | BUN | 12Comment: Testing | 8 - 25 mg/dL | EXTERNAL | | | | performed at [facility], [address] | | LAB | | | | [address], | | | | | | [place] [address] | | | | + + + + + + | Creatinine | 0.67 (L)Comment: Testing | 0.70 - 1.30 | EXTERNAL | | | | performed at [facility], [address] | mg/dL | LAB | | | | [address], | | | | | | [place] [address] | | | | + + + + + + | BUN/Creatin | 18Comment: Testing | | EXTERNAL | | | ine Ratio | performed at [facility], [address] | | LAB | | | | [address], | | | | | | [place] [address] | | | | + + + + + + | Calcium | 8.8Comment: Testing | 8.5 - 10.5 | EXTERNAL | | | | performed at [facility], [address] | mg/dL | LAB | | | | [facility], | | | | | | [place] [address] | | | | + + + [...] | | | | | | at [facility], [address] | | | | | | [facility], | | | | | | [place] [address] | | | | + + + [...] + +---------+ + + External Lab: CBC (01/10/2015 4:49 AM PDT) + + + + + + | Component | Value | Ref Range | Performed | Pathologist | | | | | At | Signature | + + + + + + | WBC | 4.68Comment: Testing | 3.80 - 11.00 | EXTERNAL | | | | performed at [facility], [address] | K/uL | LAB | | | | [address], | | | | | | [place] [address] | | | | + + + + + + | RED CELL | 3.87 (L)Comment: Testing | 4.20 - 5.70 | EXTERNAL | | | COUNT | performed at [facility], [address] | M/uL | LAB | | | | [address], | | | | | | [place] [address] | | | | + + + + + + | Hgb | 13.3Comment: Testing | 13.2 - 17.0 | EXTERNAL | | | | performed at [facility], [address] | g/dL | LAB | | | | [address], | | | | | | [place] [address] | | | | + + + + + + | Hematocrit, | 38.1 (L)Comment: Testing | 39.0 - 50.0 % | EXTERNAL | | | POC | performed at [facility], [address] | | LAB | | | | [address], | | | | | | [place] [address] | | | | + + + + + + | MCV | 98.6Comment: Testing | 80.0 - 100.0 fl | EXTERNAL | | | | performed at [facility], [address] | | LAB | | | | [address], | | | | | | [place] [address] | | | | + + + + + + | MCH | 34.4 (H)Comment: Testing | 27.0 - 34.0 pg | EXTERNAL | | | | performed at [facility], [address] | | LAB | | | | [address], | | | | | | [place] [address] | | | | + + + + + + | MCHC | 34.9Comment: Testing | 32.0 - 35.5 | EXTERNAL | | | | performed at [facility], [address] | g/dL | LAB | | | | [address], | | | | | | [place] [address] | | | | + + + + + + | RDW-CV | 40.3Comment: Testing | 37 - 53 fl | EXTERNAL | | | | performed at [facility], [address] | | LAB | | | | [address], | | | | | | [place] [address] | | | | + + + + + + | Platelet | 256Comment: Testing | 150 - 400 K/uL | EXTERNAL | | | Count | performed at [facility], [address] | | LAB | | | Plasma | [address], | | | | | | [place] [address] | | | | + + + + + + | MPV | 8.4Comment: Testing | fl | EXTERNAL | | | | performed at [facility], [address] | | LAB | | | | [address], | | | | | | [place] [address] | | | | + + + + + + | Differentia | AUTOMATEDComment: | | EXTERNAL | | | l Type | Testing performed at | | LAB | | | | [facility], [address], [place], [place] | | | | | | [address] | | | | + + + + + + | % Segmented | 74.27Comment: Testing | % | EXTERNAL | | | | performed at [facility], [address] | | LAB | | | Neutrophils | [address], | | | | | | [place] [address] | | | | + + + + + + | % | 6.19Comment: Testing | % | EXTERNAL | | | Lymphocytes | performed at [facility], [address] | | LAB | | | | [address], | | | | | | [place] [address] | | | | + + + + + + | % Monocytes | 14.96Comment: Testing | % | EXTERNAL | | | | performed at [facility], [address] | | LAB | | | | [address], | | | | | | [place] [address] | | | | + + + + + + | % | 4.17Comment: Testing | % | EXTERNAL | | | Eosinophils | performed at [facility], [address] | | LAB | | | | [address], | | | | | | [place] [address] | | | | + + + + + + | % Basophils | 0.41Comment: Testing | % | EXTERNAL | | | | performed at [facility], [address] | | LAB | | | | [address], | | | | | | [place] [address] | | | | + + + + + + | Absolute | 3.48Comment: Testing | 1.90 - 7.40 | EXTERNAL | | | Segmented | performed at [facility], [address] | K/uL | LAB | | | Neutrophils | [address], | | | | | | [place] [address] | | | | + + + + + + | Absolute | 0.29 (L)Comment: Testing | 1.00 - 3.90 | EXTERNAL | | | Lymphocytes | performed at [facility], [address] | K/uL | LAB | | | | [address], | | | | | | [place] [address] | | | | + + + + + + | Absolute | 0.70Comment: Testing | 0.00 - 0.80 | EXTERNAL | | | Monocytes | performed at [facility], [address] | K/uL | LAB | | | | [address], | | | | | | [place] [address] | | | | + + + + + + | Absolute | 0.20Comment: Testing | 0.00 - 0.50 | EXTERNAL | | | Eosinophils | performed at [facility], [address] | K/uL | LAB | | | | [address], | | | | | | [place] [address] | | | | + + + + + + | Absolute | 0.02Comment: Testing | 0.00 - 0.10 | EXTERNAL | | | Basophils | performed at [facility], [address] | K/uL | LAB | | | | [address], | | | | | | [place] [address] | | | | + + + + + + + + | Specimen | + + | Blood specimen | | (specimen) | + + + +---------+ + + | Performing | Address | City/State/Zipcode | Phone Number | | Organization | | | | + +---------+ + + | EXTERNAL LAB | | | | + +---------+ + + Phosphorus (01/10/2015 4:49 AM PDT) + + + + + + | Component | Value | Ref Range | Performed | Pathologist | | | | | At | Signature | + + + + + + | PHOSPHORUS | 3.8Comment: Testing | 2.3 - 4.8 mg/dL | EXTERNAL | | | | performed at [facility], [address] | | LAB | | | | [address], | | | | | | [place] [address] | | | | + + + + + + + + | Specimen | + + | Blood specimen | | (specimen) | + + + +---------+ + + | Performing | Address | City/State/Zipcode | Phone Number | | Organization | | | | + +---------+ + + | EXTERNAL LAB | | | | + +---------+ + + Magnesium (01/10/2015 4:49 AM PDT) + + + + + + | Component | Value | Ref Range | Performed | Pathologist | | | | | At | Signature | + + + + + + | Magnesium | 1.7Comment: Testing | 1.7 - 2.4 mg/dL | EXTERNAL | | | | performed at [facility], [address] | | LAB | | | | [address], | | | | | | [place] [address] | | | | + + + [...] + +---------+ + + Basic Metabolic Panel (01/10/2015 4:49 AM PDT) + + + + + + | Component | Value | Ref Range | Performed | Pathologist | | | | | At | Signature | + + + + + + | Na | 131 (L)Comment: Testing | 135 - 143 | EXTERNAL | | | | performed at [facility], [address] | mmol/L | LAB | | | | [address], | | | | | | [place] [address] | | | | + + + + + + | K | 4.6Comment: Testing | 3.5 - 4.9 | EXTERNAL | | | | performed at [facility], [address] | mmol/L | LAB | | | | [address], | | | | | | [place] [address] | | | | + + + + + + | Cl | 101Comment: Testing | 99 - 109 mmol/L | EXTERNAL | | | | performed at [facility], [address] | | LAB | | | | [address], | | | | | | [place] [address] | | | | + + + + + + | CO2 | 24Comment: Testing | 23 - 32 mmol/L | EXTERNAL | | | | performed at [facility], [address] | | LAB | | | | [address], | | | | | | [place] [address] | | | | + + + + + + | Anion Gap | 11Comment: Testing | 5 - 20 mmol/L | EXTERNAL | | | | performed at [facility], [address] | | LAB | | | | [address], | | | | | | [place] [address] | | | | + + + + + + | Glucose, | 131 (H)Comment: Testing | 65 - 99 mg/dL | EXTERNAL | | | Fasting | performed at [facility], [address] | | LAB | | | | [address], | | | | | | [place] [address] | | | | + + + + + + | BUN | 14Comment: Testing | 8 - 25 mg/dL | EXTERNAL | | | | performed at [facility], [address] | | LAB | | | | [address], | | | | | | [place] [address] | | | | + + + + + + | Creatinine | 0.93Comment: Testing | 0.70 - 1.30 | EXTERNAL | | | | performed at [facility], [address] | mg/dL | LAB | | | | [address], | | | | | | [place] [address] | | | | + + + + + + | BUN/Creatin | 15Comment: Testing | | EXTERNAL | | | ine Ratio | performed at [facility], [address] | | LAB | | | | [address], | | | | | | [place] [address] | | | | + + + + + + | Calcium | 9.1Comment: Testing | 8.5 - 10.5 | EXTERNAL | | | | performed at [facility], [address] | mg/dL | LAB | | | | [address], | | | | | | [place] [address] | | | | + + + [...] | | | | | | at [facility], [address] | | | | | | [address], | | | | | | [place] [address] | | | | + + + [...] + +---------+ + + External Lab: [facility] (01/09/2015 5:41 AM PDT) + + + + + + | Component | Value | Ref Range | Performed | Pathologist | | | | | At | Signature | + + + + + + | WBC | 7.93Comment: Testing | 3.80 - 11.00 | EXTERNAL | | | | performed at [facility], [address] | K/uL | LAB | | | | [address], | | | | | | [place] [address] | | | | + + + + + + | RED CELL | 3.85 (L)Comment: Testing | 4.20 - 5.70 | EXTERNAL | | | COUNT | performed at [facility], [address] | M/uL | LAB | | | | [address], | | | | | | [place] [address] | | | | + + + + + + | Hgb | 13.2Comment: Testing | 13.2 - 17.0 | EXTERNAL | | | | performed at [facility], [address] | g/dL | LAB | | | | [address], | | | | | | [place] [address] | | | | + + + + + + | Hematocrit, | 37.6 (L)Comment: Testing | 39.0 - 50.0 % | EXTERNAL | | | POC | performed at [facility], [address] | | LAB | | | | [address], | | | | | | [place] [address] | | | | + + + + + + | MCV | 97.8Comment: Testing | 80.0 - 100.0 fl | EXTERNAL | | | | performed at [facility], [address] | | LAB | | | | [address], | | | | | | [place] [address] | | | | + + + + + + | MCH | 34.4 (H)Comment: Testing | 27.0 - 34.0 pg | EXTERNAL | | | | performed at [facility], [address] | | LAB | | | | [address], | | | | | | [place] [address] | | | | + + + + + + | MCHC | 35.2Comment: Testing | 32.0 - 35.5 | EXTERNAL | | | | performed at [facility], [address] | g/dL | LAB | | | | [address], | | | | | | [place] [address] | | | | + + + + + + | RDW-CV | 39.4Comment: Testing | 37 - 53 fl | EXTERNAL | | | | performed at [facility], [address] | | LAB | | | | [address], | | | | | | [place] [address] | | | | + + + + + + | Platelet | 223Comment: Testing | 150 - 400 K/uL | EXTERNAL | | | Count | performed at [facility], [address] | | LAB | | | Plasma | [address], | | | | | | [place] [address] | | | | + + + + + + | MPV | 8.7Comment: Testing | fl | EXTERNAL | | | | performed at [facility], [address] | | LAB | | | | [address], | | | | | | [place] [address] | | | | + + + + + + | Differentia | AUTOMATEDComment: | | EXTERNAL | | | l Type | Testing performed at | | LAB | | | | [facility], [address] | | | | | | [place] | | | | | | [address] | | | | + + + + + + | % Segmented | 84.48Comment: Testing | % | EXTERNAL | | | | performed at [facility], [address] | | LAB | | | Neutrophils | [address], | | | | | | [place] [address] | | | | + + + + + + | % | 5.21Comment: Testing | % | EXTERNAL | | | Lymphocytes | performed at [facility], [address] | | LAB | | | | [address], | | | | | | [place] [address] | | | | + + + + + + | % Monocytes | 7.48Comment: Testing | % | EXTERNAL | | | | performed at [facility], [address] | | LAB | | | | [address], | | | | | | [place] [address] | | | | + + + + + + | % | 2.30Comment: Testing | % | EXTERNAL | | | Eosinophils | performed at [facility], [address] | | LAB | | | | [address], | | | | | | [place] [address] | | | | + + + + + + | % Basophils | 0.53Comment: Testing | % | EXTERNAL | | | | performed at [facility], [address] | | LAB | | | | [address], | | | | | | [place] [address] | | | | + + + + + + | Absolute | 6.70Comment: Testing | 1.90 - 7.40 | EXTERNAL | | | Segmented | performed at [facility], [address] | K/uL | LAB | | | Neutrophils | [address], | | | | | | [place] [address] | | | | + + + + + + | Absolute | 0.41 (L)Comment: Testing | 1.00 - 3.90 | EXTERNAL | | | Lymphocytes | performed at [facility], [address] | K/uL | LAB | | | | [address], | | | | | | [place] [address] | | | | + + + + + + | Absolute | 0.59Comment: Testing | 0.00 - 0.80 | EXTERNAL | | | Monocytes | performed at [facility], [address] | K/uL | LAB | | | | [address], | | | | | | [place] [address] | | | | + + + + + + | Absolute | 0.18Comment: Testing | 0.00 - 0.50 | EXTERNAL | | | Eosinophils | performed at [facility], [address] | K/uL | LAB | | | [address], | | | | | | [place] [address] | | | | + + + + + + | Absolute | 0.04Comment: Testing | 0.00 - 0.10 | EXTERNAL | | | Basophils | performed at [facility], [address] | K/uL | LAB | | | | [address], | | | | | | [place] [address] | | | | + + + + + + + + | Specimen | + + | Blood specimen | | (specimen) | + + + +---------+ + + | Performing | Address | City/State/Zipcode | Phone Number | | Organization | | | | + +---------+ + + | EXTERNAL LAB | | | | + +---------+ + + Phosphorus (01/09/2015 5:41 AM PDT) + + + + + + | Component | Value | Ref Range | Performed | Pathologist | | | | | At | Signature | + + + + + + | PHOSPHORUS | 3.7Comment: Testing | 2.3 - 4.8 mg/dL | EXTERNAL | | | | performed at [facility], [address] | | LAB | | | | [address], | | | | | | [place] [address] | | | | + + + + + + + + | Specimen | + + | Blood specimen | | (specimen) | + + + +---------+ + + | Performing | Address | City/State/Zipcode | Phone Number | | Organization | | | | + +---------+ + + | EXTERNAL LAB | | | | + +---------+ + + Magnesium (01/09/2015 5:41 AM PDT) + + + + + + | Component | Value | Ref Range | Performed | Pathologist | | | | | At | Signature | + + + + + + | Magnesium | 1.7Comment: Testing | 1.7 - 2.4 mg/dL | EXTERNAL | | | | performed at [facility], [address] | | LAB | | | | [address], | | | | | | [place] [address] | | | | + + + [...] + +---------+ + + Basic Metabolic Panel (01/09/2015 5:41 AM PDT) + + + + + + | Component | Value | Ref Range | Performed | Pathologist | | | | | At | Signature | + + + + + + | Na | 129 (L)Comment: Testing | 135 - 143 | EXTERNAL | | | | performed at [facility], [address] | mmol/L | LAB | | | | [address], | | | | | | [place] [address] | | | | + + + + + + | K | 4.1Comment: Testing | 3.5 - 4.9 | EXTERNAL | | | | performed at [facility], [address] | mmol/L | LAB | | | | [address], | | | | | | [place] [address] | | | | + + + + + + | Cl | 100Comment: Testing | 99 - 109 mmol/L | EXTERNAL | | | | performed at [facility], [address] | | LAB | | | | [address], | | | | | | [place] [address] | | | | + + + + + + | CO2 | 23Comment: Testing | 23 - 32 mmol/L | EXTERNAL | | | | performed at [facility], [address] | | LAB | | | | [address], | | | | | | [place] [address] | | | | + + + + + + | Anion Gap | 10Comment: Testing | 5 - 20 mmol/L | EXTERNAL | | | | performed at [facility], [address] | | LAB | | | | [address], | | | | | | [place] [address] | | | | + + + + + + | Glucose, | 144 (H)Comment: Testing | 65 - 99 mg/dL | EXTERNAL | | | Fasting | performed at [facility], [address] | | LAB | | | | [address], | | | | | | [place] [address] | | | | + + + + + + | BUN | 7 (L)Comment: Testing | 8 - 25 mg/dL | EXTERNAL | | | | performed at [facility], [address] | | LAB | | | | [address], | | | | | | [place] [address] | | | | + + + + + + | Creatinine | 0.54 (L)Comment: Testing | 0.70 - 1.30 | EXTERNAL | | | | performed at [facility], [address] | mg/dL | LAB | | | | [address], | | | | | | [place] [address] | | | | + + + + + + | BUN/Creatin | 13Comment: Testing | | EXTERNAL | | | ine Ratio | performed at [facility], [address] | | LAB | | | | [address], | | | | | | [place] [address] | | | | + + + + + + | Calcium | 9.1Comment: Testing | 8.5 - 10.5 | EXTERNAL | | | | performed at [facility], [address] | mg/dL | LAB | | | | [address], | | | | | | [place] [address] | | | | + + + [...] | | | | | | at [facility], [address] | | | | | | [address], | | | | | | [place] [address] | | | | + + + + + + + + | Specimen | + + | Blood specimen | | (specimen) | + + + +---------+ + + | Performing | Address | City/State/Zipcode | Phone Number | | Organization | | | | + +---------+ + + | EXTERNAL LAB | | | | + +---------+ + + Magnesium (01/08/2015 11:47 AM PDT) + + + + + + | Component | Value | Ref Range | Performed | Pathologist | | | | | At | Signature | + + + + + + | Magnesium | 2.5 (H)Comment: Testing | 1.7 - 2.4 mg/dL | EXTERNAL | | | | performed at [facility] | | LAB | | | | [address];[place] | | | | | | [address] | | | | + + + [...] + +---------+ + + External Lab: CBC (01/08/2015 4:52 AM PDT) + + + + + + | Component | Value | Ref Range | Performed | Pathologist | | | | | At | Signature | + + + + + + | WBC | 4.96Comment: Testing | 3.80 - 11.00 | EXTERNAL | | | | performed at [facility], [address] | K/uL | LAB | | | | [address], | | | | | | [place] [address] | | | | + + + + + + | RED CELL | 3.27 (L)Comment: Testing | 4.20 - 5.70 | EXTERNAL | | | COUNT | performed at [facility], [address] | M/uL | LAB | | | | [address], | | | | | | [place] [address] | | | | + + + + + + | Hgb | 11.2 (L)Comment: Testing | 13.2 - 17.0 | EXTERNAL | | | | performed at [facility], [address] | g/dL | LAB | | | | [address], | | | | | | [place] [address] | | | | + + + + + + | Hematocrit, | 32.3 (L)Comment: Testing | 39.0 - 50.0 % | EXTERNAL | | | POC | performed at [facility], [address] | | LAB | | | | [address], | | | | | | [place] [address] | | | | + + + + + + | MCV | 98.9Comment: Testing | 80.0 - 100.0 fl | EXTERNAL | | | | performed at [facility], [address] | | LAB | | | | [address], | | | | | | [place] [address] | | | | + + + + + + | MCH | 34.4 (H)Comment: Testing | 27.0 - 34.0 pg | EXTERNAL | | | | performed at [facility], [address] | | LAB | | | | [address], | | | | | | [place] [address] | | | | + + + + + + | MCHC | 34.8Comment: Testing | 32.0 - 35.5 | EXTERNAL | | | | performed at [facility], [address] | g/dL | LAB | | | | [address], | | | | | | [place] [address] | | | | + + + + + + | RDW-CV | 41.6Comment: Testing | 37 - 53 fl | EXTERNAL | | | | performed at [facility], [address] | | LAB | | | | [address], | | | | | | [place] [address] | | | | + + + + + + | Platelet | 204Comment: Testing | 150 - 400 K/uL | EXTERNAL | | | Count | performed at [facility], [address] | | LAB | | | Plasma | [address], | | | | | | [place] [address] | | | | + + + + + + | MPV | 8.5Comment: Testing | fl | EXTERNAL | | | | performed at [facility], [address] | | LAB | | | | [address], | | | | | | [place] [address] | | | | + + + + + + | Differentia | AUTOMATEDComment: | | EXTERNAL | | | l Type | Testing performed at | | LAB | | | | [facility], [address] | | | | | | [place] | | | | | | [address] | | | | + + + + + + | % Segmented | 73.92Comment: Testing | % | EXTERNAL | | | | performed at [facility], [address] | | LAB | | | Neutrophils | [address], | | | | | | [place] [address] | | | | + + + + + + | % | 8.09Comment: Testing | % | EXTERNAL | | | Lymphocytes | performed at [facility], [address] | | LAB | | | | [address], | | | | | | [place] [address] | | | | + + + + + + | % Monocytes | 8.93Comment: Testing | % | EXTERNAL | | | | performed at [facility], [address] | | LAB | | | | [address], | | | | | | [place] [address] | | | | + + + + + + | % | 8.19Comment: Testing | % | EXTERNAL | | | Eosinophils | performed at [facility], [address] | | LAB | | | | [address], | | | | | | [place] [address] | | | | + + + + + + | % Basophils | 0.87Comment: Testing | % | EXTERNAL | | | | performed at [facility], [address] | | LAB | | | | [address], | | | | | | [place] [address] | | | | + + + + + + | Absolute | 3.67Comment: Testing | 1.90 - 7.40 | EXTERNAL | | | Segmented | performed at [facility], [address] | K/uL | LAB | | | Neutrophils | [address], | | | | | | [place], [place] [address] | | | | + + + + + + | Absolute | 0.40 (L)Comment: Testing | 1.00 - 3.90 | EXTERNAL | | | Lymphocytes | performed at [facility], [address] | K/uL | LAB | | | | [address], | | | | | | [place], [place] [address] | | | | + + + + + + | Absolute | 0.44Comment: Testing | 0.00 - 0.80 | EXTERNAL | | | Monocytes | performed at [facility], [address] | K/uL | LAB | | | | [address], | | | | | | [place], [place] [address] | | | | + + + + + + | Absolute | 0.41Comment: Testing | 0.00 - 0.50 | EXTERNAL | | | Eosinophils | performed at [facility], [address] | K/uL | LAB | | | | [address], | | | | | | [place] [address] | | | | + + + + + + | Absolute | 0.04Comment: Testing | 0.00 - 0.10 | EXTERNAL | | | Basophils | performed at [facility], [address] | K/uL | LAB | | | | [address], | | | | | | [place] [address] | | | | + + + + + + + + | Specimen | + + | Blood specimen | | (specimen) | + + + +---------+ + + | Performing | Address | City/State/Zipcode | Phone Number | | Organization | | | | + +---------+ + + | EXTERNAL LAB | | | | + +---------+ + + Phosphorus (01/08/2015 4:52 AM PDT) + + + + + + | Component | Value | Ref Range | Performed | Pathologist | | | | | At | Signature | + + + + + + | PHOSPHORUS | 3.2Comment: Testing | 2.3 - 4.8 mg/dL | EXTERNAL | | | | performed at [facility], [address] | | LAB | | | | [address], | | | | | | [place] [address] | | | | + + + + + + + + | Specimen | + + | Blood specimen | | (specimen) | + + + +---------+ + + | Performing | Address | City/State/Zipcode | Phone Number | | Organization | | | | + +---------+ + + | EXTERNAL LAB | | | | + +---------+ + + Magnesium (01/08/2015 4:52 AM PDT) + + + + + + | Component | Value | Ref Range | Performed | Pathologist | | | | | At | Signature | + + + + + + | Magnesium | 1.5 (L)Comment: Testing | 1.7 - 2.4 mg/dL | EXTERNAL | | | | performed at [facility], [address] | | LAB | | | | [address], | | | | | | [place] [address] | | | | + + + [...] + +---------+ + + Basic Metabolic Panel (01/08/2015 4:52 AM PDT) + + + + + + | Component | Value | Ref Range | Performed | Pathologist | | | | | At | Signature | + + + + + + | Na | 131 (L)Comment: Testing | 135 - 143 | EXTERNAL | | | | performed at [facility], [address] | mmol/L | LAB | | | | [address], | | | | | | [place] [address] | | | | + + + + + + | K | 3.9Comment: Testing | 3.5 - 4.9 | EXTERNAL | | | | performed at [facility], [address] | mmol/L | LAB | | | | [address], | | | | | | [place] [address] | | | | + + + + + + | Cl | 104Comment: Testing | 99 - 109 mmol/L | EXTERNAL | | | | performed at [facility], [address] | | LAB | | | | [address], | | | | | | [place] [address] | | | | + + + + + + | CO2 | 23Comment: Testing | 23 - 32 mmol/L | EXTERNAL | | | | performed at [facility], [address] | | LAB | | | | [address], | | | | | | [place] [address] | | | | + + + + + + | Anion Gap | 8Comment: Testing | 5 - 20 mmol/L | EXTERNAL | | | | performed at [facility], [address] | | LAB | | | | [address], | | | | | | [place] [address] | | | | + + + + + + | Glucose, | 114 (H)Comment: Testing | 65 - 99 mg/dL | EXTERNAL | | | Fasting | performed at [facility], [address] | | LAB | | | | [address], | | | | | | [place] [address] | | | | + + + + + + | BUN | 7 (L)Comment: Testing | 8 - 25 mg/dL | EXTERNAL | | | | performed at [facility], [address] | | LAB | | | | [address], | | | | | | [place] [address] | | | | + + + + + + | Creatinine | 0.68 (L)Comment: Testing | 0.70 - 1.30 | EXTERNAL | | | | performed at [facility], [address] | mg/dL | LAB | | | | [address], | | | | | | [place] [address] | | | | + + + + + + | BUN/Creatin | 10Comment: Testing | | EXTERNAL | | | ine Ratio | performed at [facility], [address] | | LAB | | | | [address], | | | | | | [place] [address] | | | | + + + + + + | Calcium | 8.5Comment: Testing | 8.5 - 10.5 | EXTERNAL | | | | performed at [facility], [address] | mg/dL | LAB | | | | [address], | | | | | | [place] [address] | | | | + + + [...] | | | | | | at [facility], [address] | | | | | | [facility], | | | | | | [place] [address] | | | | + + + [...] + +---------+ + + External Lab: CBC (01/07/2015 5:34 AM PDT) + + + + + + | Component | Value | Ref Range | Performed | Pathologist | | | | | At | Signature | + + + + + + | WBC | 5.52Comment: Testing | 3.80 - 11.00 | EXTERNAL | | | | performed at [facility], [address] | K/uL | LAB | | | | [address], | | | | | | [place] [address] | | | | + + + + + + | RED CELL | 3.52 (L)Comment: Testing | 4.20 - 5.70 | EXTERNAL | | | COUNT | performed at [facility], [address] | M/uL | LAB | | | | [address], | | | | | | [place] [address] | | | | + + + + + + | Hgb | 11.9 (L)Comment: Testing | 13.2 - 17.0 | EXTERNAL | | | | performed at [facility], [address] | g/dL | LAB | | | | [address], | | | | | | [place] [address] | | | | + + + + + + | Hematocrit, | 35.0 (L)Comment: Testing | 39.0 - 50.0 % | EXTERNAL | | | POC | performed at [facility], [address] | | LAB | | | | [address], | | | | | | [place] [address] | | | | + + + + + + | MCV | 99.2Comment: Testing | 80.0 - 100.0 fl | EXTERNAL | | | | performed at [facility], [address] | | LAB | | | | [address], | | | | | | [place] [address] | | | | + + + + + + | MCH | 33.8Comment: Testing | 27.0 - 34.0 pg | EXTERNAL | | | | performed at [facility], [address] | | LAB | | | | [address], | | | | | | [place] [address] | | | | + + + + + + | MCHC | 34.0Comment: Testing | 32.0 - 35.5 | EXTERNAL | | | | performed at [facility], [address] | g/dL | LAB | | | | [address], | | | | | | [place] [address] | | | | + + + + + + | RDW-CV | 40.7Comment: Testing | 37 - 53 fl | EXTERNAL | | | | performed at [facility], [address] | | LAB | | | | [address], | | | | | | [place] [address] | | | | + + + + + + | Platelet | 214Comment: Testing | 150 - 400 K/uL | EXTERNAL | | | Count | performed at [facility], [address] | | LAB | | | Plasma | [address], | | | | | | [place] [address] | | | | + + + + + + | MPV | 8.5Comment: Testing | fl | EXTERNAL | | | | performed at [facility], [address] | | LAB | | | | [address], | | | | | | [place] [address] | | | | + + + + + + | Differentia | AUTOMATEDComment: | | EXTERNAL | | | l Type | Testing performed at | | LAB | | | | [facility], [address] | | | | | | [place] | | | | | | [address] | | | | + + + + + + | % Segmented | 81.53Comment: Testing | % | EXTERNAL | | | | performed at [facility], [address] | | LAB | | | Neutrophils | [address], | | | | | | [place] [address] | | | | + + + + + + | % | 6.67Comment: Testing | % | EXTERNAL | | | Lymphocytes | performed at [facility], [address] | | LAB | | | | [address], | | | | | | [place] [address] | | | | + + + + + + | % Monocytes | 6.91Comment: Testing | % | EXTERNAL | | | | performed at [facility], [address] | | LAB | | | | [address], | | | | | | [place] [address] | | | | + + + + + + | % | 4.53Comment: Testing | % | EXTERNAL | | | Eosinophils | performed at [facility], [address] | | LAB | | | | [address], | | | | | | [place] [address] | | | | + + + + + + | % Basophils | 0.36Comment: Testing | % | EXTERNAL | | | | performed at [facility], [address] | | LAB | | | | [address], | | | | | | [place] [address] | | | | + + + + + + | Absolute | 4.50Comment: Testing | 1.90 - 7.40 | EXTERNAL | | | Segmented | performed at [facility], [address] | K/uL | LAB | | | Neutrophils | [address], | | | | | | [place] [address] | | | | + + + + + + | Absolute | 0.37 (L)Comment: Testing | 1.00 - 3.90 | EXTERNAL | | | Lymphocytes | performed at [facility], [address] | K/uL | LAB | | | | [address], | | | | | | [place] [address] | | | | + + + + + + | Absolute | 0.38Comment: Testing | 0.00 - 0.80 | EXTERNAL | | | Monocytes | performed at [facility], [address] | K/uL | LAB | | | | [address], | | | | | | [place] [address] | | | | + + + + + + | Absolute | 0.25Comment: Testing | 0.00 - 0.50 | EXTERNAL | | | Eosinophils | performed at [facility], [address] | K/uL | LAB | | | | [address], | | | | | | [place] [address] | | | | + + + + + + | Absolute | 0.02Comment: Testing | 0.00 - 0.10 | EXTERNAL | | | Basophils | performed at [facility], [address] | K/uL | LAB | | | | [address], | | | | | | [place] [address] | | | | + + + + + + + + | Specimen | + + | Blood specimen | | (specimen) | + + + +---------+ + + | Performing | Address | City/State/Zipcode | Phone Number | | Organization | | | | + +---------+ + + | EXTERNAL LAB | | | | + +---------+ + + Phosphorus (01/07/2015 5:34 AM PDT) + + + + + + | Component | Value | Ref Range | Performed | Pathologist | | | | | At | Signature | + + + + + + | PHOSPHORUS | 2.8Comment: Testing | 2.3 - 4.8 mg/dL | EXTERNAL | | | | performed at [facility], [address] | | LAB | | | | [address], | | | | | | [place] [address] | | | | + + + + + + + + | Specimen | + + | Blood specimen | | (specimen) | + + + +---------+ + + | Performing | Address | City/State/Zipcode | Phone Number | | Organization | | | | + +---------+ + + | EXTERNAL LAB | | | | + +---------+ + + Magnesium (01/07/2015 5:34 AM PDT) + + + + + + | Component | Value | Ref Range | Performed | Pathologist | | | | | At | Signature | + + + + + + | Magnesium | 1.8Comment: Testing | 1.7 - 2.4 mg/dL | EXTERNAL | | | | performed at [facility], [address] | | LAB | | | | [facility], | | | | | | [place] [address] | | | | + + + [...] + +---------+ + + Basic Metabolic Panel (01/07/2015 5:34 AM PDT) + + + + + + | Component | Value | Ref Range | Performed | Pathologist | | | | | At | Signature | + + + + + + | Na | 131 (L)Comment: Testing | 135 - 143 | EXTERNAL | | | | performed at [facility], [address] | mmol/L | LAB | | | | [address], | | | | | | [place] [address] | | | | + + + + + + | K | 4.1Comment: Testing | 3.5 - 4.9 | EXTERNAL | | | | performed at [facility], [address] | mmol/L | LAB | | | | [address], | | | | | | [place] [address] | | | | + + + + + + | Cl | 104Comment: Testing | 99 - 109 mmol/L | EXTERNAL | | | | performed at [facility], [address] | | LAB | | | | [address], | | | | | | [place] [address] | | | | + + + + + + | CO2 | 23Comment: Testing | 23 - 32 mmol/L | EXTERNAL | | | | performed at [facility], [address] | | LAB | | | | [address], | | | | | | [place] [address] | | | | + + + + + + | Anion Gap | 8Comment: Testing | 5 - 20 mmol/L | EXTERNAL | | | | performed at [facility], [address] | | LAB | | | | [address], | | | | | | [place] [address] | | | | + + + + + + | Glucose, | 115 (H)Comment: Testing | 65 - 99 mg/dL | EXTERNAL | | | Fasting | performed at [facility], [address] | | LAB | | | | [address], | | | | | | [place] [address] | | | | + + + + + + | BUN | 7 (L)Comment: Testing | 8 - 25 mg/dL | EXTERNAL | | | | performed at [facility], [address] | | LAB | | | | [address], | | | | | | [place] [address] | | | | + + + + + + | Creatinine | 0.58 (L)Comment: Testing | 0.70 - 1.30 | EXTERNAL | | | | performed at [facility], [address] | mg/dL | LAB | | | | [address], | | | | | | [place] [address] | | | | + + + + + + | BUN/Creatin | 12Comment: Testing | | EXTERNAL | | | ine Ratio | performed at [facility], [address] | | LAB | | | | [address] [place], | | | | | | [place] [address] | | | | + + + + + + | Calcium | 8.6Comment: Testing | 8.5 - 10.5 | EXTERNAL | | | | performed at [facility], [address] | mg/dL | LAB | | | | [address] [place], | | | | | | [place] [address] | | | | + + + [...] | | | | | | at [facility], [address] | | | | | | [place], | | | | | | [place] [address] | | | | + + + [...] + +---------+ + + External Lab: [facility]ARI (01/06/2015 3:51 AM PDT) + + + + + + | Component | Value | Ref Range | Performed | Pathologist | | | | | At | Signature | + + + + + + | WBC | 4.31Comment: Testing | 3.80 - 11.00 | EXTERNAL | | | | performed at [facility], [address] | K/uL | LAB | | | | [place], | | | | | | [place] [address] | | | | + + + + + + | RED CELL | 3.39 (L)Comment: Testing | 4.20 - 5.70 | EXTERNAL | | | COUNT | performed at [facility], [address] | M/uL | LAB | | | | [address], | | | | | | [place] [address] | | | | + + + + + + | Hgb | 11.7 (L)Comment: Testing | 13.2 - 17.0 | EXTERNAL | | | | performed at [facility], [address] | g/dL | LAB | | | | [address], | | | | | | [place] [address] | | | | + + + + + + | Hematocrit, | 34.1 (L)Comment: Testing | 39.0 - 50.0 % | EXTERNAL | | | POC | performed at [facility], [address] | | LAB | | | | [address], | | | | | | [place] [address] | | | | + + + + + + | MCV | 100.6 (H)Comment: | 80.0 - 100.0 fl | EXTERNAL | | | | Testing performed at | | LAB | | | | [facility], [address] | | | | | | [place] | | | | | | [address] | | | | + + + + + + | MCH | 34.5 (H)Comment: Testing | 27.0 - 34.0 pg | EXTERNAL | | | | performed at [facility], [address] | | LAB | | | | [address], | | | | | | [place] [address] | | | | + + + + + + | MCHC | 34.3Comment: Testing | 32.0 - 35.5 | EXTERNAL | | | | performed at [facility], [address] | g/dL | LAB | | | | [address], | | | | | | [place] [address] | | | | + + + + + + | RDW-CV | 41.1Comment: Testing | 37 - 53 fl | EXTERNAL | | | | performed at [facility], [address] | | LAB | | | | [address], | | | | | | [place] [address] | | | | + + + + + + | Platelet | 169Comment: Testing | 150 - 400 K/uL | EXTERNAL | | | Count | performed at [facility], [address] | | LAB | | | Plasma | [address], | | | | | | [place] [address] | | | | + + + + + + | MPV | 9.0Comment: Testing | fl | EXTERNAL | | | | performed at [facility], [address] | | LAB | | | | [address], | | | | | | [place] [address] | | | | + + + + + + | Differentia | AUTOMATEDComment: | | EXTERNAL | | | l Type | Testing performed at | | LAB | | | | [facility], [address] | | | | | | [place] | | | | | | [address] | | | | + + + + + + | % Segmented | 78.12Comment: Testing | % | EXTERNAL | | | | performed at [facility], [address] | | LAB | | | Neutrophils | [address], | | | | | | [place] [address] | | | | + + + + + + | % | 7.52Comment: Testing | % | EXTERNAL | | | Lymphocytes | performed at [facility], [address] | | LAB | | | | [address], | | | | | | [place] [address] | | | | + + + + + + | % Monocytes | 7.66Comment: Testing | % | EXTERNAL | | | | performed at [facility], [address] | | LAB | | | | [address], | | | | | | [place], [place] [address] | | | | + + + + + + | % | 6.09Comment: Testing | % | EXTERNAL | | | Eosinophils | performed at [facility], [address] | | LAB | | | | [address], | | | | | | [place], [place] [address] | | | | + + + + + + | % Basophils | 0.61Comment: Testing | % | EXTERNAL | | | | performed at [facility], [address] | | LAB | | | | [address], | | | | | | [place] [address] | | | | + + + + + + | Absolute | 3.37Comment: Testing | 1.90 - 7.40 | EXTERNAL | | | Segmented | performed at [facility], [address] | K/uL | LAB | | | Neutrophils | [place], | | | | | | [place] [address] | | | | + + + + + + | Absolute | 0.32 (L)Comment: Testing | 1.00 - 3.90 | EXTERNAL | | | Lymphocytes | performed at [facility], [address] | K/uL | LAB | | | | [address] [place], | | | | | | [place] [address] | | | | + + + + + + | Absolute | 0.33Comment: Testing | 0.00 - 0.80 | EXTERNAL | | | Monocytes | performed at [facility], [address] | K/uL | LAB | | | | [place], | | | | | | [place] [address] | | | | + + + + + + | Absolute | 0.26Comment: Testing | 0.00 - 0.50 | EXTERNAL | | | Eosinophils | performed at [facility], [address] | K/uL | LAB | | | | [address], | | | | | | [place] [address] | | | | + + + + + + | Absolute | 0.03Comment: Testing | 0.00 - 0.10 | EXTERNAL | | | Basophils | performed at [facility], [address] | K/uL | LAB | | | [address], | | | | | | [place] [address] | | | | + + + + + + + + | Specimen | + + | Blood specimen | | (specimen) | + + + +---------+ + + | Performing | Address | City/State/Zipcode | Phone Number | | Organization | | | | + +---------+ + + | EXTERNAL LAB | | | | + +---------+ + + Phosphorus (01/06/2015 3:51 AM PDT) + + + + + + | Component | Value | Ref Range | Performed | Pathologist | | | | | At | Signature | + + + + + + | PHOSPHORUS | 3.0Comment: Testing | 2.3 - 4.8 mg/dL | EXTERNAL | | | | performed at [facility], [address] | | LAB | | | | [place], | | | | | | [place] [address] | | | | + + + + + + + + | Specimen | + + | Blood specimen | | (specimen) | + + + +---------+ + + | Performing | Address | City/State/Zipcode | Phone Number | | Organization | | | | + +---------+ + + | EXTERNAL LAB | | | | + +---------+ + + Magnesium (01/06/2015 3:51 AM PDT) + + + + + + | Component | Value | Ref Range | Performed | Pathologist | | | | | At | Signature | + + + + + + | Magnesium | 2.1Comment: Testing | 1.7 - 2.4 mg/dL | EXTERNAL | | | | performed at [facility], [address] | | LAB | | | | [address], | | | | | | [place] [address] | | | | + + + [...] + +---------+ + + Basic Metabolic Panel (01/06/2015 3:51 AM PDT) + + + + + + | Component | Value | Ref Range | Performed | Pathologist | | | | | At | Signature | + + + + + + | Na | 131 (L)Comment: Testing | 135 - 143 | EXTERNAL | | | | performed at [facility], [address] | mmol/L | LAB | | | | [place], | | | | | | [place] [address] | | | | + + + + + + | K | 4.2Comment: Testing | 3.5 - 4.9 | EXTERNAL | | | | performed at [facility], [address] | mmol/L | LAB | | | | [place], | | | | | | [place] [address] | | | | + + + + + + | Cl | 104Comment: Testing | 99 - 109 mmol/L | EXTERNAL | | | | performed at [facility], [address] | | LAB | | | | [place], | | | | | | [place] [address] | | | | + + + + + + | CO2 | 25Comment: Testing | 23 - 32 mmol/L | EXTERNAL | | | | performed at [facility], [address] | | LAB | | | | [address], | | | | | | [place] [address] | | | | + + + + + + | Anion Gap | 6Comment: Testing | 5 - 20 mmol/L | EXTERNAL | | | | performed at [facility], [address] | | LAB | | | | [address], | | | | | | [place] [address] | | | | + + + + + + | Glucose, | 101 (H)Comment: Testing | 65 - 99 mg/dL | EXTERNAL | | | Fasting | performed at [facility], [address] | | LAB | | | | [address], | | | | | | [place] [address] | | | | + + + + + + | BUN | 5 (L)Comment: Testing | 8 - 25 mg/dL | EXTERNAL | | | | performed at [facility], [address] | | LAB | | | | [place], | | | | | | [place] [address] | | | | + + + + + + | Creatinine | 0.59 (L)Comment: Testing | 0.70 - 1.30 | EXTERNAL | | | | performed at [facility], [address] | mg/dL | LAB | | | | [address], | | | | | | [place] [address] | | | | + + + + + + | BUN/Creatin | 8Comment: Testing | | EXTERNAL | | | ine Ratio | performed at [facility], [address] | | LAB | | | [address], | | | | | | [place] [address] | | | | + + + + + + | Calcium | 8.2 (L)Comment: Testing | 8.5 - 10.5 | EXTERNAL | | | | performed at [facility], [address] | mg/dL | LAB | | | | [place], | | | | | | [place] [address] | | | | + + + [...] | | | | | | at [facility], [address] | | | | | | [facility], | | | | | | [place] [address] | | | | + + + + + + + + | Specimen | + + | Blood specimen | | (specimen) | + + + +---------+ + + | Performing | Address | City/State/Zipcode | Phone Number | | Organization | | | | + +---------+ + + | EXTERNAL LAB | | | | + +---------+ + + Tissue Request For Pathology (01/06/2015 12:00 AM PDT) + + | Specimen | + + | Soft tissue sample | | (specimen) | + + + + + | Narrative | Performed At | + + + | SPECIMEN(S): A RECTUM AND SIGMOID COLON SPECIMEN SOURCE: A. | EXTERNAL LAB | | RECTUM AND SIGMOID COLON CLINICAL HISTORY: 01/03/2015 at 1334 H. | | | Rectal CA. 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: - Site of | | | previous adenocarcinoma identified consisting of a depressed scar with | | | focal ulceration - Histologic tumor type: Adenocarcinoma NOS | | | on biopsy - Tumor location: Rectum below peritoneal reflection | | | - Tumor size: Not applicable (no residual tumor identified) | | | - Histologic grade: Well-differentiated on biopsy - | | | Tumor extension: Post-treatment scar suggests invasion into the | | | muscular is propria - Mesorectum: Intact - Serosal | | | perforation: Not applicable - Surgical margins: Negative | | | (measurements below pertain to the mucosal scar) - | | | 2.6 cm from distal resection margin - 14.8 cm from | | | proximal resection margin - 1.1 cm from radial | | | margin. - Treatment effect: Present - No | | | residual tumor (complete response, grade 0) - Angiolymphatic | | | invasion: Not applicable - Perineural invasion: Not applicable | | | - Discontinuous extramural extension (tumor deposits): Not | | | applicable. - Lymph nodes: 18 benign lymph nodes (0/18) | | | - None of the 18 nodes show scar suggestive of | | | previous involvement - Additional findings: None STAGE: | | | [id number] As part of the Sample Puller Program, this case was | | | reviewed by another member of [facility]. (CIELOK) GROSS | | | DESCRIPTION: One specimen is received in one container, labeled with | | | the patient's name: A. Received in formalin designated " rectum | | | and sigmoid", consists of an unopened portion of rectum that is 19.2 | | | cm in length and has an average internal circumference of 7.0 cm. | | | The serosal surface is pink-lentz and smooth. The radial resection | | | margin is intact and inked black. Upon opening the mucosal surfaces | | | yellow-lentz and finely granular one area of pink ulceration that is 1.1 | | | x 0.8 x 0.3 cm with an attached suture. The ulcerated lesion is | | | below the peritoneal reflection, is 2.6 cm from the distal resection | | | margin, 14.8 cm from the proximal resection margin, 1.1 cm from the | | | radial soft tissue margin, and 19.5 cm from the mesenteric root | | | resection margin. Serially sectioning through the ulcerated lesion | | | reveals adherent to the underlying muscularis propria. Extension | | | through the muscular is propria is not grossly identified. Distal | | | to the ulcerated lesion is a black dye discoloration. The uninvolved | | | bowel wall has an average thickness of 0.9 cm. Upon dissection of | | | the attached pericolonic adipose tissue 19 possible lymph nodes are | | | grossly identified range in size from 0.2 cm up to 0.8 cm in greatest | | | dimension. Pot Filler sections are submitted in 11 cassettes. | | | FM Cassette summary: (A1) distal resection margin, shave; (A2) | | | proximal resection margin, shave; (A3-A5) ulcerated lesion to radial | | | soft tissue margin, perpendicular; (A6) remainder of ulcerated lesion; | | | (A7) uninvolved bowel wall; (A8) 6 possible lymph nodes, submitted | | | whole; (A9) 6 possible lymph nodes, submitted whole; (A10) 3 possible | | | lymph nodes, submitted whole; (A11) 4 possible lymph nodes, submitted | | | whole. FM The gross description section of this report has been | | | prepared using a voice recognition system. The report was reviewed for | | | accuracy, however, sound-alike word errors, addition and/or deletions | | | may occur. If there is any question about this report please contact | | | the originating pathologist. MICROSCOPIC EXAMINATION: Histologic | | | sections of all submitted blocks are examined by light microscopy. | | | These findings, together with the gross examination, support the | | | pathologic diagnosis. PERFORMING LABORATORY: Professional | | | interpretation and technical preparation was performed by [facility] | | | [employer], | | | [place] [address] (Senior Software Engineer: Rahul Adamson M.D.; CLIA#: | | | [id number]). Diagnostician: Paxton Velazquez MD Pathologist | | | Diagnostician: Rahul Adamson MD Pathologist Electronically Signed | | | 01/08/2015 | | + + + + +---------+ + + | Performing | Address | City/State/Zipcode | Phone Number | | Organization | | | | + +---------+ + + | EXTERNAL LAB | | | | + +---------+ + + CK-MB (01/05/2015 3:14 PM PDT) + + + + + -+ | Component | Value | Ref Range | Performed | Pathologist | | | | | At | Signature | + + + + + -+ | CK-MB | 1.3Comment: Testing | 0.5 - 3.6 ng/mL | EXTERNAL | | | | performed at [facility];[address] | | LAB | | | | [address];[place], [place] | | | | | | [address] | | | | + + + + + -+ | CK-MB Index | 0.8Comment: CK INDEX | | EXTERNAL | | | | INTERPRETATION: | | LAB | | | | MMB ng/mL | | | | | | | | | | | |CK INDEX INTERPRETATION: | | | | | | MMB ng/mL | | | | | | | | | | + + + + + -+ + + | Specimen | + + | | + + + +---------+ + + | Performing | Address | City/State/Zipcode | Phone Number | | Organization | | | | + +---------+ + + | EXTERNAL LAB | | | | + +---------+ + + Troponin I (01/05/2015 3:14 PM PDT) + + + + + + | Component | Value | Ref Range | Performed | Pathologist | | | | | At | Signature | + + + + + + | Troponin I, | <0.020Comment: 0.00 to | 0.00 - 0.10 | EXTERNAL | | | Qual | 0.10 CONSISTENT WITH | ng/mL | LAB | | | | NORMAL POPULATION0.11 | | | | | | to 0.60 CONSISTENT | | | | | | WITH INCREASED RISK FOR | | | | | | ADVERSE OUTCOMES> 0.60 | | | | | | CONSISTENT | | | | | | WITH WHO CRITERIA FOR | | | | | | ACUTE NC Testing | | | | | | performed at [facility];[address] | | | | | | [address];[place], [place] | | | | | | [address] | | | | + + + + + + + + | Specimen | + + | Blood specimen | | (specimen) | + + + +---------+ + + | Performing | Address | City/State/Zipcode | Phone Number | | Organization | | | | + +---------+ + + | EXTERNAL LAB | | | | + +---------+ + + CK Total (01/05/2015 3:14 PM PDT) + + + + + + | Component | Value | Ref Range | Performed | Pathologist | | | | | At | Signature | + + + + + + | CK, Total | 157Comment: SLT | 55 - 400 U/L | EXTERNAL | | | | HEMOLYSISTesting | | LAB | | | | performed at [facility];[address] | | | | | | [address];[place], [place] | | | | | | [address] | | | | + + + + + + + + | Specimen | + + | Blood specimen | | (specimen) | + + + +---------+ + + | Performing | Address | City/State/Zipcode | Phone Number | | Organization | | | | + +---------+ + + | EXTERNAL LAB | | | | + +---------+ + + ECHO Complete (01/05/2015 12:13 PM PDT) + + | Specimen | + + | | + + + + + | Impressions | Performed At | + + + | 1. Overall left ventricular systolic function is normal with, an EF | | | between 65 - 70 %. 2. There is mild aortic valve sclerosis without | | | stenosis. 3. Mild mitral regurgitation is present. 4. The right | | | ventricular systolic pressure (pulmonary artery systolic pressure), as | | | measured by Doppler, is 30.95mmHg. | | + + + + + + | Narrative | Performed At | + + + | Patient Name: JOSE EATON Date of : 1950 | | | Performing Physician: Fifi Castañeda MD | | | | | | INDICATIONS AFIB RECTAL CANCER CONCLUSIONS | | | 1. Overall left ventricular systolic function is normal | | | with, an EF between 65 - 70 %. 2. There is mild aortic valve | | | sclerosis without stenosis. 3. Mild mitral regurgitation is present. | | | 4. The right ventricular systolic pressure (pulmonary artery systolic | | | pressure), as measured by Doppler, is 30.95mmHg. FINDINGS | | | -------- ECG rhythm: Resting tachycardia (HR>100bpm). Study: A | | | 2-dimensional transthoracic echocardiogram with m-mode, spectral and | | | color flow Doppler was perfomed. Study: This was a technically | | | adequate study. Left Ventricle: Overall left ventricular systolic | | | function is normal with, an EF between 65 - 70 %. Left Ventricle: The | | | left ventricle cavity size is normal. Left Ventricle: Left | | | ventricular wall thickness is normal. Right Ventricle: The right | | | ventricle is normal in size. Left Atrium: The left atrial size is | | | normal. Right Atrium: The right atrial size is normal. Aortic Valve: | | | The aortic valve is trileaflet and appears structurally normal. | | | Aortic Valve: There is mild aortic valve sclerosis without stenosis. | | | Aortic Valve: There is no evidence of aortic regurgitation. Mitral | | | Valve: Mild mitral regurgitation is present. Mitral Valve: There is | | | mild calcification of the anterior mitral valve leaflet. Tricuspid | | | Valve: The tricuspid valve appears structurally normal. Tricuspid | | | Valve: Trace tricuspid regurgitation present. Tricuspid Valve: There | | | is no evidence of pulmonary hypertension. Tricuspid Valve: The right | | | ventricular systolic pressure (pulmonary artery systolic pressure), as | | | measured by Doppler, is 30.95mmHg. Pulmonic Valve: The pulmonic | | | valve was not well visualized. Pulmonic Valve: Trace pulmonic | | | regurgitation. Pericardium: There is no pericardial effusion. | | | Pericardium: Anterior echo free space present. IVC/Hepatic Veins: The | | | IVC was not well visualized, estimated 10mmHg for RAP. | | | MEASUREMENTS Ao asc: 3.30 cm LA Major: 5.52 cm | | | EDV(Teich): 81.14 ml IVSd: 0.97 cm LVIDd: 4.25 cm LVPWd: | | | 0.96 cm LVOT Diam: 1.85 cm %FS: 41.47 % EF(Teich): | | | 72.71 % ESV(Teich): 22.14 ml IVSs: 1.21 cm LVIDs: 2.49 cm | | | LVPWs: 1.42 cm SV(Teich): 59.00 ml RA Major: 4.34 cm | | | RVIDd: 3.24 cm LAESV(A-L): 48.88 ml LAESV Index (A-L): | | | 27.46 ml/m2 LAAs A2C: 15.68 cm2 LAESV A-L A2C: 42.11 ml LALs | | | A2C: 4.95 cm LAAs A4C: 18.20 cm2 LAESV A-L A4C: 45.19 ml | | | LALs A4C: 6.22 cm Ao Diam: 2.69 cm AV Cusp: 1.32 cm LA | | | Diam: 4.21 cm LA/Ao: 1.56 %FS: 46.57 % EDV(Teich): | | | 103.90 ml EF(Teich): 77.93 % ESV(Teich): 22.92 ml IVSd: | | | 1.00 cm IVSs: 1.65 cm LVIDd: 4.73 cm LVIDs: 2.52 cm | | | LVPWd: 1.03 cm LVPWs: 1.74 cm SV(Teich): 80.97 ml D-E | | | Excursion: 2.11 cm E-F Shackelford: 0.10 m/s EPSS: 0.32 cm AR | | | Dec Shackelford: 1.57 m/s2 AR Dec Time: 2098.37 ms AR maxPG: | | | 40.59 mmHg AR PHT: 608.52 ms AR Vmax: 3.18 m/s HR: 111.10 | | | BPM AV maxP.52 mmHg AV meanP.76 mmHg AV Vmax: 1.06 | | | m/s AV Vmean: 0.79 m/s AV VTI: 17.97 cm LOUISA Vmax: 2.02 | | | cm2 LOUISA (VTI): 1.81 cm2 AVAI (Vmax): 0.00 cm2/m2 AVAI (VTI): | | | 0.00 cm2/m2 LVCI Dopp: 2.34 l/minm2 LVCO Dopp: 4.16 l/min | | | HR: 127.41 BPM LVOT maxP.53 mmHg LVOT meanP.15 mmHg | | | LVSI Dopp: 18.38 ml/m2 LVSV Dopp: 32.72 ml LVOT Vmax: | | | 0.79 m/s LVOT Vmean: 0.50 m/s LVOT VTI: 12.09 cm MV E Shade: | | | 0.90 m/s MV PHT: 44.29 ms MVA By PHT: 4.96 cm2 MV maxPG: | | | 2.74 mmHg MV meanP.40 mmHg MV Vmax: 0.82 m/s MV Vmean: | | | 0.55 m/s MV VTI: 12.57 cm MVA (VTI): 2.60 cm2 Septal e': | | | 0.09 m/s Septal E/e': 9.16 Lateral e': 0.12 m/s Lateral E/e': | | | 7.15 P Vein D: 0.34 m/s P Vein S/D Ratio: 0.57 P Vein S: | | | 0.19 m/s HR: 123.85 BPM PV maxP.14 mmHg PV meanPG: | | | 1.14 mmHg PV Vmax: 0.73 m/s PV Vmean: 0.50 m/s PV VTI: | | | 11.59 cm RAP: 10 mmHg RVSP: 30.95 mmHg TR maxP.95 | | | mmHg TR Vmax: 2.28 m/s Medical Imaging Director: PRERNA Authenticated by: Fifi | | | Maddy CHU Report Date/Time: 01-05-2015 16:14:35 | | + + + + + | Procedure Note | + + | Billy De La Garza Conversion - 11/10/2018 8:48 AM PDT Patient Name: Viji EATON of | | : 1950 Performing Physician: Fifi Castañeda | | INDICATIONS A | | FIB RECTAL CANCER CONCLUSIONS 1. Overall left ventricular systolic function | | is normal with, an EF between 65 - 70 %.2. There is mild aortic valve sclerosis without | | stenosis.3. Mild mitral regurgitation is present.4. The right ventricular systolic | | pressure (pulmonary artery systolic pressure), as measured by Doppler, is 30.95mmHg. | | FINDINGS--------ECG rhythm: Resting tachycardia (HR>100bpm).Study: A 2-dimensional | | transthoracic echocardiogram with m-mode, spectral and color flow Doppler was | | perfomed.Study: This was a technically adequate study.Left Ventricle: Overall left | | ventricular systolic function is normal with, an EF between 65 - 70 %.Left Ventricle: | | The left ventricle cavity size is normal.Left Ventricle: Left ventricular wall thickness | | is normal.Right Ventricle: The right ventricle is normal in size.Left Atrium: The left | | atrial size is normal.Right Atrium: The right atrial size is normal.Aortic Valve: The | | aortic valve is trileaflet and appears structurally normal.Aortic Valve: There is mild | | aortic valve sclerosis without stenosis.Aortic Valve: There is no evidence of aortic | | regurgitation.Mitral Valve: Mild mitral regurgitation is present.Mitral Valve: There is | | mild calcification of the anterior mitral valve leaflet.Tricuspid Valve: The tricuspid | | valve appears structurally normal.Tricuspid Valve: Trace tricuspid regurgitation | | present.Tricuspid Valve: There is no evidence of pulmonary hypertension.Tricuspid Valve: | | The right ventricular systolic pressure (pulmonary artery systolic pressure), as | | measured by Doppler, is 30.95mmHg.Pulmonic Valve: The pulmonic valve was not well | | visualized.Pulmonic Valve: Trace pulmonic regurgitation.Pericardium: There is no | | pericardial effusion.Pericardium: Anterior echo free space present.IVC/Hepatic Veins: | | The IVC was not well visualized, estimated 10mmHg for RAP. MEASUREMENTS Ao | | asc: 3.30 cmLA Major: 5.52 cmEDV(Teich): 81.14 mlIVSd: 0.97 cmLVIDd: 4.25 | | cmLVPWd: 0.96 cmLVOT Diam: 1.85 cm%FS: 41.47 %EF(Teich): 72.71 %ESV(Teich): | | 22.14 mlIVSs: 1.21 cmLVIDs: 2.49 cmLVPWs: 1.42 cmSV(Teich): 59.00 mlRA Major: | | 4.34 cmRVIDd: 3.24 cmLAESV(A-L): 48.88 mlLAESV Index (A-L): 27.46 ml/m2LAAs A2C: | | 15.68 [id number] A-L A2C: 42.11 mlLALs A2C: 4.95 cmLAAs A4C: 18.20 [id number] A-L | | A4C: 45.19 mlLALs A4C: 6.22 cmAo Diam: 2.69 cmAV Cusp: 1.32 cmLA Diam: 4.21 | | cmLA/Ao: 1.56%FS: 46.57 %EDV(Teich): 103.90 mlEF(Teich): 77.93 %ESV(Teich): | | 22.92 mlIVSd: 1.00 cmIVSs: 1.65 cmLVIDd: 4.73 cmLVIDs: 2.52 cmLVPWd: 1.03 | | cmLVPWs: 1.74 cmSV(Teich): 80.97 mlD-E Excursion: 2.11 cmE-F Shackelford: 0.10 | | m/sEPSS: 0.32 cmAR Dec Shackelford: 1.57 m/s2AR Dec Time: 2097. msAR maxP.59 | | mmHgAR PHT: 608.52 msAR Vmax: 3.18 m/sHR: 111.10 BPMAV maxP.52 mmHgAV | | meanP.76 mmHgAV Vmax: 1.06 m/Svetlana Vmean: 0.79 m/Svetlana VTI: 17.97 cmAVA Vmax: | | 2.02 cm2AVA (VTI): 1.81 bo8XVUE (Vmax): 0.00 cm2/m2AVAI (VTI): 0.00 cm2/m2LVCI | | Dopp: 2.34 l/[id number] Dopp: 4.16 l/minHR: 127.41 BPMLVOT maxP.53 mmHgLVOT | | meanP.15 mmHgLVSI Dopp: 18.38 ml/m2LVSV Dopp: 32.72 mlLVOT Vmax: 0.79 | | m/sLVOT Vmean: 0.50 m/sLVOT VTI: 12.09 cmMV E Shade: 0.90 m/sMV PHT: 44.29 msMVA | | By PHT: 4.96 cm2MV maxP.74 mmHgMV meanP.40 mmHgMV Vmax: 0.82 m/sMV | | Vmean: 0.55 m/sMV VTI: 12.57 cmMVA (VTI): 2.60 rg2Oyhmeu e': 0.09 m/sSeptal | | E/e': 9.16Lateral e': 0.12 m/sLateral E/e': 7.15P Vein D: 0.34 m/sP Vein S/D | | Ratio: 0.57P Vein S: 0.19 m/sHR: 123.85 BPMPV maxP.14 mmHgPV meanP.14 | | mmHgPV Vmax: 0.73 m/sPV Vmean: 0.50 m/sPV VTI: 11.59 cmRAP: 10 mmHgRVSP: 30.95 | | mmHgTR maxP.95 mmHgTR Vmax: 2.28 m/s Medical Imaging Director: Ronaldted by: Fifi | | [facility] Date/Time: 01-05-2015 16:14:35 IMPRESSION: 1. Overall left ventricular | | systolic function is normal with, an EF between 65 - 70 %.2. There is mild aortic valve | | sclerosis without stenosis.3. Mild mitral regurgitation is present.4. The right | | ventricular systolic pressure (pulmonary artery systolic pressure), as measured by | | Doppler, is 30.95mmHg. | |LVPWd: 0.96 cm | |LVOT Diam: 1.85 cm | |%FS: 41.47 % | |EF(Teich): 72.71 % | |ESV(Teich): 22.14 ml | |IVSs: 1.21 cm | |LVIDs: 2.49 cm | |LVPWs: 1.42 cm | |SV(Teich): 59.00 ml | |RA Major: 4.34 cm | |RVIDd: 3.24 cm | |LAESV(A-L): 48.88 ml | |LAESV Index (A-L): 27.46 ml/m2 | |LAAs A2C: 15.68 cm2 | |LAESV A-L A2C: 42.11 ml | |LALs A2C: 4.95 cm | |LAAs A4C: 18.20 cm2 | |LAESV A-L A4C: 45.19 ml | |LALs A4C: 6.22 cm | |Ao Diam: 2.69 cm | |AV Cusp: 1.32 cm | |LA Diam: 4.21 cm | |LA/Ao: 1.56 | |%FS: 46.57 % | |EDV(Teich): 103.90 ml | |EF(Teich): 77.93 % | |ESV(Teich): 22.92 ml | |IVSd: 1.00 cm | |IVSs: 1.65 cm | |LVIDd: 4.73 cm | |LVIDs: 2.52 cm | |LVPWd: 1.03 cm | |LVPWs: 1.74 cm | |SV(Teich): 80.97 ml | |D-E Excursion: 2.11 cm | |E-F Shackelford: 0.10 m/s | |EPSS: 0.32 cm | |AR Dec Shackelford: 1.57 m/s2 | |AR Dec Time: 2098.37 ms | |AR maxP.59 mmHg | |AR PHT: 608.52 ms | |AR Vmax: 3.18 m/s | |HR: 111.10 BPM | |AV maxP.52 mmHg | |AV meanP.76 mmHg | |AV Vmax: 1.06 m/s | |AV Vmean: 0.79 m/s | |AV VTI: 17.97 cm | |LOUISA Vmax: 2.02 cm2 | |LOUISA (VTI): 1.81 cm2 | |AVAI (Vmax): 0.00 cm2/m2 | |AVAI (VTI): 0.00 cm2/m2 | |LVCI Dopp: 2.34 l/minm2 | |LVCO Dopp: 4.16 l/min | |HR: 127.41 BPM | |LVOT maxP.53 mmHg | |LVOT meanP.15 mmHg | |LVSI Dopp: 18.38 ml/m2 | |LVSV Dopp: 32.72 ml | |LVOT Vmax: 0.79 m/s | |LVOT Vmean: 0.50 m/s | |LVOT VTI: 12.09 cm | |MV E [place]: 0.90 m/s | |MV PHT: 44.29 ms | |MVA By PHT: 4.96 cm2 | |MV maxP.74 mmHg | |MV meanP.40 mmHg | |MV Vmax: 0.82 m/s | |MV Vmean: 0.55 m/s | |MV VTI: 12.57 cm | |MVA (VTI): 2.60 cm2 | |Septal e': 0.09 m/s | |Septal E/e': 9.16 | |Lateral e': 0.12 m/s | |Lateral E/e': 7.15 | |P Vein D: 0.34 m/s | |P Vein S/D Ratio: 0.57 | |P Vein S: 0.19 m/s | |HR: 123.85 BPM | |PV maxP.14 mmHg | |PV meanP.14 mmHg | |PV Vmax: 0.73 m/s | |PV Vmean: 0.50 m/s | |PV VTI: 11.59 cm | |RAP: 10 mmHg | |RVSP: 30.95 mmHg | |TR maxP.95 mmHg | |TR Vmax: 2.28 m/s | | | |Medical Imaging Director: PRERNA | |Authenticated by: Fifi Castañeda MD | |Report Date/Time: 01-05-2015 16:14:35 | | | |IMPRESSION: | |1. Overall left ventricular systolic function is normal with, an EF between 65 - 70 %. | |2. There is mild aortic valve sclerosis without stenosis. | |3. Mild mitral regurgitation is present. | |4. The right ventricular systolic pressure (pulmonary artery systolic pressure), as measure d by Doppler, is 30.95mmHg. | + + Thyroid Panel with TSH (01/05/2015 9:03 AM PDT) + + + + + + | Component | Value | Ref Range | Performed | Pathologist | | | | | At | Signature | + + + + + + | T3 UPTAKE | 37.2Comment: Testing | 33.0 - 40.0 % | EXTERNAL | | | | performed at [facility], [address] | | LAB | | | | [address], | | | | | | [place] [address] | | | | + + + + + + | T4 Total, | 6.8Comment: Testing | 4.7 - 11.3 | EXTERNAL | | | External | performed at [facility], [address] | ug/dL | LAB | | | | [address], | | | | | | [place] [address] | | | | + + + + + + | Free | 2.5Comment: Testing | 1.1 - 4.6 | EXTERNAL | | | Thyroxine | performed at [facility], [address] | | LAB | | | Index, | [address], | | | | | External | [place] [address] | | | | + + + + + + | TSI | 2.53Comment: Testing | 0.45 - 5.10 | EXTERNAL | | | | performed at [facility], [address] | uIU/mL | LAB | | | | [address], | | | | | | [place] [address] | | | | + + + + + + + + | Specimen | + + | | + + + +---------+ + + | Performing | Address | City/State/Zipcode | Phone Number | | Organization | | | | + +---------+ + + | EXTERNAL LAB | | | | + +---------+ + + CK-MB (01/05/2015 9:03 AM PDT) + + + + + -+ | Component | Value | Ref Range | Performed | Pathologist | | | | | At | Signature | + + + + + -+ | CK-MB | 1.4Comment: Testing | 0.5 - 3.6 ng/mL | EXTERNAL | | | | performed at [facility];[address] | | LAB | | | | [facility];[place], [place] | | | | | | [address] | | | | + + + + + -+ | CK-MB Index | 0.8Comment: CK INDEX | | EXTERNAL | | | | INTERPRETATION: | | LAB | | | | MMB ng/mL | | | | | | | | | | | |CK INDEX INTERPRETATION: | | | | | | MMB ng/mL | | | | | | | | | | + + + + + -+ + + | Specimen | + + | Blood specimen | | (specimen) | + + + +---------+ + + | Performing | Address | City/State/Zipcode | Phone Number | | Organization | | | | + +---------+ + + | EXTERNAL LAB | | | | + +---------+ + + Troponin I (01/05/2015 9:03 AM PDT) + + + + + + | Component | Value | Ref Range | Performed | Pathologist | | | | | At | Signature | + + + + + + | Troponin I, | <0.020Comment: 0.00 to | 0.00 - 0.10 | EXTERNAL | | | Qual | 0.10 CONSISTENT WITH | ng/mL | LAB | | | | NORMAL POPULATION0.11 | | | | | | to 0.60 CONSISTENT | | | | | | WITH INCREASED RISK FOR | | | | | | ADVERSE OUTCOMES> 0.60 | | | | | | CONSISTENT | | | | | | WITH WHO CRITERIA FOR | | | | | | ACUTE NC Testing | | | | | | performed at [facility];[address] | | | | | | [address];[place] | | | | | | [address] | | | | + + + + + + + + | Specimen | + + | Blood specimen | | (specimen) | + + + +---------+ + + | Performing | Address | City/State/Zipcode | Phone Number | | Organization | | | | + +---------+ + + | EXTERNAL LAB | | | | + +---------+ + + Magnesium (01/05/2015 9:03 AM PDT) + + + + + + | Component | Value | Ref Range | Performed | Pathologist | | | | | At | Signature | + + + + + + | Magnesium | 1.7Comment: Testing | 1.7 - 2.4 mg/dL | EXTERNAL | | | | performed at [facility];[address] | | LAB | | | | [address];[place] | | | | | | [address] | | | | + + + + + + + + | Specimen | + + | Blood specimen | | (specimen) | + + + +---------+ + + | Performing | Address | City/State/Zipcode | Phone Number | | Organization | | | | + +---------+ + + | EXTERNAL LAB | | | | + +---------+ + + Hemoglobin A1C (01/05/2015 9:03 AM PDT) + + + + + + | Component | Value | Ref Range | Performed | Pathologist | | | | | At | Signature | + + + + + + | Hemoglobin | 5.0Comment: The [place] | 4.0 - 6.0 % | EXTERNAL | | | A1c | Diabetes Association | | LAB | | | | considers a hemoglobin | | | | | | A1c result of <7.0% to | | | | | | be the goal of diabetic | | | | | | therapy. When results | | | | | | are consistently >8.0%, | | | | | | the ADA suggests | | | | | | reevaluation of the | | | | | | treatment regimen. The | | | | | | testing method used is | | | | | | certified traceable to | | | | | | the Diabetes Control and | | | | | | Complications Trial | | | | | | reference method.Testing | | | | | | performed at [facility], [address], | | | | | | [place] [address] | | | | + + + + + + | Glycohemogl | 97Comment: The ADA | mg/dL | EXTERNAL | | | obin | considers an eAG result | | LAB | | | (GHb),Total | of LT 154 mg/dL to be | | | | | | the goal of diabetic | | | | | | therapy. Estimated | | | | | | Average Glucose | | | | | | calculated from | | | | | | hemoglobin A1c by use of | | | | | | the ADA recommended | | | | | | formula.Testing | | | | | | performed at [facility], [address] | | | | | | [facility], | | | | | | [place] [address] | | | | + + + + + + + + | Specimen | + + | Blood specimen | | (specimen) | + + + +---------+ + + | Performing | Address | City/State/Zipcode | Phone Number | | Organization | | | | + +---------+ + + | EXTERNAL LAB | | | | + +---------+ + + CK Total (01/05/2015 9:03 AM PDT) + + + + + + | Component | Value | Ref Range | Performed | Pathologist | | | | | At | Signature | + + + + + + | CK, Total | 177Comment: Testing | 55 - 400 U/L | EXTERNAL | | | | performed at [facility];[address] | | LAB | | | | [facility];[place], [place] | | | | | | [address] | | | | + + + [...] + +---------+ + + External Lab: CBC (01/05/2015 4:46 AM PDT) + + + + + + | Component | Value | Ref Range | Performed | Pathologist | | | | | At | Signature | + + + + + + | WBC | 5.15Comment: Testing | 3.80 - 11.00 | EXTERNAL | | | | performed at [facility], [address] | K/uL | LAB | | | | [address], | | | | | | [place] [address] | | | | + + + + + + | RED CELL | 3.33 (L)Comment: Testing | 4.20 - 5.70 | EXTERNAL | | | COUNT | performed at [facility], [address] | [address]/uL | LAB | | | | [address], | | | | | | [place] [address] | | | | + + + + + + | Hgb | 11.5 (L)Comment: Testing | 13.2 - 17.0 | EXTERNAL | | | | performed at [facility], [address] | g/dL | LAB | | | | [address], | | | | | | [place] [address] | | | | + + + + + + | Hematocrit, | 33.7 (L)Comment: Testing | 39.0 - 50.0 % | EXTERNAL | | | POC | performed at [facility], [address] | | LAB | | | | [address], | | | | | | [place] [address] | | | | + + + + + + | MCV | 101.0 (H)Comment: | 80.0 - 100.0 fl | EXTERNAL | | | | Testing performed at | | LAB | | | | [facility], [address] [facility] | | | | | | [place] | | | | | | [address] | | | | + + + + + + | MCH | 34.6 (H)Comment: Testing | 27.0 - 34.0 pg | EXTERNAL | | | | performed at [facility], [address] | | LAB | | | | [address], | | | | | | [place] [address] | | | | + + + + + + | MCHC | 34.3Comment: Testing | 32.0 - 35.5 | EXTERNAL | | | | performed at [facility], [address] | g/dL | LAB | | | | [address], | | | | | | [place] [address] | | | | + + + + + + | RDW-CV | 42.4Comment: Testing | 37 - 53 fl | EXTERNAL | | | | performed at [facility], [address] | | LAB | | | | [address], | | | | | | [place] [address] | | | | + + + + + + | Platelet | 155Comment: Testing | 150 - 400 K/uL | EXTERNAL | | | Count | performed at [facility], [address] | | LAB | | | Plasma | [address], | | | | | | [place] [address] | | | | + + + + + + | MPV | 9.1Comment: Testing | fl | EXTERNAL | | | | performed at [facility], [address] | | LAB | | | | [address], | | | | | | [place] [address] | | | | + + + + + + | Differentia | AUTOMATEDComment: | | EXTERNAL | | | l Type | Testing performed at | | LAB | | | | [facility], [address] | | | | | | [place] | | | | | | [address] | | | | + + + + + + | % Segmented | 83.91Comment: Testing | % | EXTERNAL | | | | performed at [facility], [address] | | LAB | | | Neutrophils | [address], | | | | | | [place] [address] | | | | + + + + + + | % | 6.12Comment: Testing | % | EXTERNAL | | | Lymphocytes | performed at [facility], [address] | | LAB | | | | [address], | | | | | | [place] [address] | | | | + + + + + + | % Monocytes | 6.81Comment: Testing | % | EXTERNAL | | | | performed at [facility], [address] | | LAB | | | | [address], | | | | | | [place] [address] | | | | + + + + + + | % | 2.36Comment: Testing | % | EXTERNAL | | | Eosinophils | performed at [facility], [address] | | LAB | | | | [address], | | | | | | [place] [address] | | | | + + + + + + | % Basophils | 0.80Comment: Testing | % | EXTERNAL | | | | performed at [facility], [address] | | LAB | | | | [address], | | | | | | [place] [address] | | | | + + + + + + | Absolute | 4.32Comment: Testing | 1.90 - 7.40 | EXTERNAL | | | Segmented | performed at [facility], [address] | K/uL | LAB | | | Neutrophils | [address], | | | | | | [place] [address] | | | | + + + + + + | Absolute | 0.32 (L)Comment: Testing | 1.00 - 3.90 | EXTERNAL | | | Lymphocytes | performed at [facility], [address] | K/uL | LAB | | | | [address], | | | | | | [place] [address] | | | | + + + + + + | Absolute | 0.35Comment: Testing | 0.00 - 0.80 | EXTERNAL | | | Monocytes | performed at [facility], [address] | K/uL | LAB | | | | [address], | | | | | | [place] [address] | | | | + + + + + + | Absolute | 0.12Comment: Testing | 0.00 - 0.50 | EXTERNAL | | | Eosinophils | performed at [facility], [address] | K/uL | LAB | | | | [address], | | | | | | [place] [address] | | | | + + + + + + | Absolute | 0.04Comment: Testing | 0.00 - 0.10 | EXTERNAL | | | Basophils | performed at [facility], [address] | K/uL | LAB | | | | [address], | | | | | | [place] [address] | | | | + + + + + + + + | Specimen | + + | Blood specimen | | (specimen) | + + + +---------+ + + | Performing | Address | City/State/Zipcode | Phone Number | | Organization | | | | + +---------+ + + | EXTERNAL LAB | | | | + +---------+ + + Phosphorus (01/05/2015 4:46 AM PDT) + + + + + + | Component | Value | Ref Range | Performed | Pathologist | | | | | At | Signature | + + + + + + | PHOSPHORUS | 1.9 (L)Comment: Testing | 2.3 - 4.8 mg/dL | EXTERNAL | | | | performed at [facility], [address] | | LAB | | | | [address], | | | | | | [place] [address] | | | | + + + + + + + + | Specimen | + + | Blood specimen | | (specimen) | + + + +---------+ + + | Performing | Address | City/State/Zipcode | Phone Number | | Organization | | | | + +---------+ + + | EXTERNAL LAB | | | | + +---------+ + + Magnesium (01/05/2015 4:46 AM PDT) + + + + + + | Component | Value | Ref Range | Performed | Pathologist | | | | | At | Signature | + + + + + + | Magnesium | 1.7Comment: Testing | 1.7 - 2.4 mg/dL | EXTERNAL | | | | performed at [facility], [address] | | LAB | | | | [address], | | | | | | [place] [address] | | | | + + + [...] + +---------+ + + Basic Metabolic Panel (01/05/2015 4:46 AM PDT) + + + + + + | Component | Value | Ref Range | Performed | Pathologist | | | | | At | Signature | + + + + + + | Na | 132 (L)Comment: Testing | 135 - 143 | EXTERNAL | | | | performed at [facility], [address] | mmol/L | LAB | | | | [address], | | | | | | [place] [address] | | | | + + + + + + | K | 3.7Comment: Testing | 3.5 - 4.9 | EXTERNAL | | | | performed at [facility], [address] | mmol/L | LAB | | | | [address], | | | | | | [place] [address] | | | | + + + + + + | Cl | 104Comment: Testing | 99 - 109 mmol/L | EXTERNAL | | | | performed at [facility], [address] | | LAB | | | | [address], | | | | | | [place] [address] | | | | + + + + + + | CO2 | 23Comment: Testing | 23 - 32 mmol/L | EXTERNAL | | | | performed at [facility], [address] | | LAB | | | | [address], | | | | | | [place] [address] | | | | + + + + + + | Anion Gap | 9Comment: Testing | 5 - 20 mmol/L | EXTERNAL | | | | performed at [facility], [address] | | LAB | | | | [address], | | | | | | [place] [address] | | | | + + + + + + | Glucose, | 124 (H)Comment: Testing | 65 - 99 mg/dL | EXTERNAL | | | Fasting | performed at [facility], [address] | | LAB | | | | [address], | | | | | | [place] [address] | | | | + + + + + + | BUN | 6 (L)Comment: Testing | 8 - 25 mg/dL | EXTERNAL | | | | performed at [facility], [address] | | LAB | | | | [address], | | | | | | [place] [address] | | | | + + + + + + | Creatinine | 0.51 (L)Comment: Testing | 0.70 - 1.30 | EXTERNAL | | | | performed at [facility], [address] | mg/dL | LAB | | | | [address], | | | | | | [place] [address] | | | | + + + + + + | BUN/Creatin | 12Comment: Testing | | EXTERNAL | | | ine Ratio | performed at [facility], [address] | | LAB | | | | [address], | | | | | | [place] [address] | | | | + + + + + + | Calcium | 8.3 (L)Comment: Testing | 8.5 - 10.5 | EXTERNAL | | | | performed at [facility], [address] | mg/dL | LAB | | | | [address], | | | | | | [place] [address] | | | | + + + [...] | | | | | | at [facility], [address] | | | | | | [address], | | | | | | [place] [address] | | | | + + + [...] + +---------+ + + External Lab: CBC (01/04/2015 5:45 AM PDT) + + + + + + | Component | Value | Ref Range | Performed | Pathologist | | | | | At | Signature | + + + + + + | WBC | 6.50Comment: Testing | 3.80 - 11.00 | EXTERNAL | | | | performed at [facility], [address] | K/uL | LAB | | | | [address], | | | | | | [place] [address] | | | | + + + + + + | RED CELL | 2.99 (L)Comment: Testing | 4.20 - 5.70 | EXTERNAL | | | COUNT | performed at [facility], [address] | M/uL | LAB | | | | [address], | | | | | | [place] [address] | | | | + + + + + + | Hgb | 10.4 (L)Comment: Testing | 13.2 - 17.0 | EXTERNAL | | | | performed at [facility], [address] | g/dL | LAB | | | | [address], | | | | | | [place] [address] | | | | + + + + + + | Hematocrit, | 30.0 (L)Comment: Testing | 39.0 - 50.0 % | EXTERNAL | | | POC | performed at [facility], [address] | | LAB | | | | [address], | | | | | | [place] [address] | | | | + + + + + + | MCV | 100.1 (H)Comment: | 80.0 - 100.0 fl | EXTERNAL | | | | Testing performed at | | LAB | | | | [facility], [address] | | | | | | [place] | | | | | | [address] | | | | + + + + + + | MCH | 34.7 (H)Comment: Testing | 27.0 - 34.0 pg | EXTERNAL | | | | performed at [facility], [address] | | LAB | | | | [address], | | | | | | [place] [address] | | | | + + + + + + | MCHC | 34.6Comment: Testing | 32.0 - 35.5 | EXTERNAL | | | | performed at [facility], [address] | g/dL | LAB | | | | [address], | | | | | | [place] [address] | | | | + + + + + + | RDW-CV | 42.0Comment: Testing | 37 - 53 fl | EXTERNAL | | | | performed at [facility], [address] | | LAB | | | | [address], | | | | | | [place] [address] | | | | + + + + + + | Platelet | 161Comment: Testing | 150 - 400 K/uL | EXTERNAL | | | Count | performed at [facility], [address] | | LAB | | | Plasma | [address], | | | | | | [place] [address] | | | | + + + + + + | MPV | 8.3Comment: Testing | fl | EXTERNAL | | | | performed at [facility], [address] | | LAB | | | | [address], | | | | | | [place] [address] | | | | + + + + + + | Differentia | MANUALComment: Testing | | EXTERNAL | | | l Type | performed at [facility], [address] | | LAB | | | | [address], | | | | | | [place] [address] | | | | + + + + + + | Segmented | 88Comment: Testing | % | EXTERNAL | | | Neutrophils | performed at [facility], [address] | | LAB | | | Manual | [address], | | | | | | [place] [address] | | | | + + + + + + | Lymphocytes | 6Comment: Testing | % | EXTERNAL | | | Manual | performed at [facility], [address] | | LAB | | | | [address], | | | | | | [place] [address] | | | | + + + + + + | Monocytes | 6Comment: Testing | % | EXTERNAL | | | Manual | performed at [facility], [address] | | LAB | | | [address], | | | | | | [place] [address] | | | | + + + + + + | Absolute | 5.72Comment: Testing | 1.90 - 7.40 | EXTERNAL | | | Neutrophils | performed at [facility], [address] | K/uL | LAB | | | | [address], | | | | | | [place] [address] | | | | + + + + + + | Absolute | 0.39 (L)Comment: Testing | 1.00 - 3.90 | EXTERNAL | | | Lymphocytes | performed at [facility], [address] | [address] | LAB | | | | [address], | | | | | | [place] [address] | | | | + + + + + + | Absolute | 0.39Comment: Testing | 0.00 - 0.80 | EXTERNAL | | | Monocytes | performed at [facility], [address] | K/uL | LAB | | | [address], | | | | | | [place] [address] | | | | + + + + + + | RBC | NORMAL RBC MORPHComment: | | EXTERNAL | | | Morphology | NORMAL PLT MORPHTesting | | LAB | | | | performed at [facility], [address] | | | | | [address], | | | | | | [place] [address] | | | | + + + + + + + + | Specimen | + + | Blood specimen | | (specimen) | + + + +---------+ + + | Performing | Address | City/State/Zipcode | Phone Number | | Organization | | | | + +---------+ + + | EXTERNAL LAB | | | | + +---------+ + + Phosphorus (01/04/2015 5:45 AM PDT) + + + + + + | Component | Value | Ref Range | Performed | Pathologist | | | | | At | Signature | + + + + + + | PHOSPHORUS | 2.9Comment: Testing | 2.3 - 4.8 mg/dL | EXTERNAL | | | | performed at [facility], [address] | | LAB | | | | [address], | | | | | | [place] [address] | | | | + + + + + + + + | Specimen | + + | Blood specimen | | (specimen) | + + + +---------+ + + | Performing | Address | City/State/Zipcode | Phone Number | | Organization | | | | + +---------+ + + | EXTERNAL LAB | | | | + +---------+ + + Magnesium (01/04/2015 5:45 AM PDT) + + + + + + | Component | Value | Ref Range | Performed | Pathologist | | | | | At | Signature | + + + + + + | Magnesium | 1.9Comment: Testing | 1.7 - 2.4 mg/dL | EXTERNAL | | | | performed at [facility], [address] | | LAB | | | | [address], | | | | | | [place] [address] | | | | + + + [...] + +---------+ + + Basic Metabolic Panel (01/04/2015 5:45 AM PDT) + + + + + + | Component | Value | Ref Range | Performed | Pathologist | | | | | At | Signature | + + + + + + | Na | 131 (L)Comment: Testing | 135 - 143 | EXTERNAL | | | | performed at [facility], [address] | mmol/L | LAB | | | | [address], | | | | | | [place] [address] | | | | + + + + + + | K | 3.8Comment: Testing | 3.5 - 4.9 | EXTERNAL | | | | performed at [facility], [address] | mmol/L | LAB | | | | [address], | | | | | | [place] [address] | | | | + + + + + + | Cl | 103Comment: Testing | 99 - 109 mmol/L | EXTERNAL | | | | performed at [facility], [address] | | LAB | | | | [address], | | | | | | [place] [address] | | | | + + + + + + | CO2 | 26Comment: Testing | 23 - 32 mmol/L | EXTERNAL | | | | performed at [facility], [address] | | LAB | | | | [address], | | | | | | [place] [address] | | | | + + + + + + | Anion Gap | 6Comment: Testing | 5 - 20 mmol/L | EXTERNAL | | | | performed at [facility], [address] | | LAB | | | | [address], | | | | | | [place] [address] | | | | + + + + + + | Glucose, | 127 (H)Comment: Testing | 65 - 99 mg/dL | EXTERNAL | | | Fasting | performed at [facility], [address] | | LAB | | | | [address], | | | | | | [place] [address] | | | | + + + + + + | BUN | 14Comment: Testing | 8 - 25 mg/dL | EXTERNAL | | | | performed at [facility], [address] | | LAB | | | | [address], | | | | | | [place] [address] | | | | + + + + + + | Creatinine | 0.67 (L)Comment: Testing | 0.70 - 1.30 | EXTERNAL | | | | performed at [facility], [address] | mg/dL | LAB | | | | [address], | | | | | | [place] [address] | | | | + + + + + + | BUN/Creatin | 21Comment: Testing | | EXTERNAL | | | ine Ratio | performed at [facility], [address] | | LAB | | | | [address], | | | | | | [place] [address] | | | | + + + + + + | Calcium | 8.1 (L)Comment: Testing | 8.5 - 10.5 | EXTERNAL | | | | performed at [facility], [address] | mg/dL | LAB | | | | [address], | | | | | | [place] [address] | | | | + + + [...] | | | | | | at [facility], [address] | | | | | | [address], | | | | | | [place] [address] | | | | + + + [...] Malignant neoplasm of rectum | + + | Persistent atrial fibrillation Atrial fibrillation | + + | Hyperlipidemia Other and unspecified hyperlipidemia | + + | Hyposmolality and/or hyponatremia | + + | Acute respiratory failure with hypoxia (HCC) Acute respiratory failure | + + documented in this encounter
--- OUTSIDE RECORDS SUMMARY | ~2019-02-11 | XMS | Encounter Summary ---
Demographics + + + | Address | [address] | | | [place] [address] | + + + | Home Phone | | + + + | Preferred Language | Unknown | + + + | Marital Status | Single | + + + | Scientology Affiliation | Unknown | + + + | Race | Unknown | + + + | Ethnic Group | Unknown | + + + Author + + + | Author | [facility] | | | and [place] | + + + | Organization | [facility] | | [...] Team Providers + +------+ + | Care Geosciences Associate Professor Name | Role | Phone | + +------+ + PCP | Unavailable | + +------+ + Encounter Details +--------+ + + + + | Date | Type | Department | Care Team | Description | +--------+ + + + + | 07/10/ | Hospital | [facility] | Saleem Shore, | Rectal cancer (HCC) | | 2016 - | Encounter | [facility] [address] | MD [address] | | | | | [address] | [address] | | | 07/13/ | | [place], [place] | [place] [address] | | | 2016 | | [address] | [phone] | | | | | [phone] | | | +--------+ + + + [...] 07/14/1527 Date of Service: 07/14/15923 Status: Signed Drug Department Worker: JONATHON Zambrano (Nurse Practitioner) [facility] Service: Colon & Rectal Surgery Discharge Summary [...] - FLEXIBLE; Surgeon: Saleem Shore MD; Location: [facility]; Service: General; Laterality: N/A; Total hip arthroplasty Bilateral Knee surgery Right Flexible sigmoidoscopy N/A 12/25/2014 Procedure: SIGMOIDOSCOPY - FLEXIBLE; Surgeon: Saleem Shore MD; Location: [facility]; Service: General; Laterality: N/A; Robotic assisted laparoscopic colon resection - coloanal N/A 01/03/2015 Procedure: ROBOTIC ASSISTED LAPAROSCOPIC COLON RESECTION - COLOANAL; Surgeon: Saleem chauhan MD; Location: [facility]; Service: General; Laterality: N/A; coloanal pull thr ough Flexible sigmoidoscopy N/A 01/03/2015 Procedure: SIGMOIDOSCOPY - FLEXIBLE; Surgeon: Saleem Shore MD; Location: [facility]; Service: General; Laterality: N/A; Sigmoidoscopy - rigid N/A 01/03/2015 Procedure: SIGMOIDOSCOPY - RIGID; Surgeon: Saleem Shore MD; Location: [facility] ; Service: General; Laterality: N/A; Flexible bronchoscopy N/A 01/17/2015 Procedure: BRONCHOSCOPY - FLEXIBLE; Surgeon: Lui Lindsey MD; Location: [facility]; Service: Form Builder Helper; Laterality: N/A; Flexible sigmoidoscopy N/A 04/30/2015 Procedure: SIGMOIDOSCOPY - FLEXIBLE; Surgeon: Saleem Shore MD; Location: [facility]; Service: General; Laterality: N/A; Ileostomy revision N/A 07/11/2015 Procedure: ILEOSTOMY - TAKE DOWN OR REVISION; Surgeon: Saleem Shore MD; Location: [facility]; Service: General; Laterality: N/A; Allergies [...] 07/14/151825 Date of Service: 07/14/151821 Status: Signed Drug Department Worker: Belén Horn RN (Registered Nurse) Pt has been discharged home. Rx and paperwork has been discussed and he knows to follow up as directed. He is ambulating, tolerating food, voiding and pain is controlled. He has no fu rther questions at this time. All instructions have been discussed with pt's friend and with am anesthesiologist physician. onver alex Transaction, Provider Unknown - 07/14/2015 8:32 AM PDT Case Management by BRIA Ward at 07/14/15831 Author: BRIA Ward Service: (none) Author Type: End User Support Specialist Filed: 07/14/15 0833 Date of Service: 07/14/15831 Status: Signed Drug Department Worker: BRIA Ward (End User Support Specialist) CM met with pt for continued discharge [...] 07/14/15454 Date of Service: 07/14/15451 Status: Signed Drug Department Worker: Kris Smith RN (Registered Nurse) Patient continues [...] 1109 Date of Service: 07/13/158 Status: Signed Drug Department Worker: Saleem Shore MD (Physician) [facility] Service: Colon & Rectal Surgery Progress Note [...] 07/13/1542 Date of Service: 07/13/15540 Status: Signed Drug Department Worker: Kris Smith RN (Registered Nurse) Overnight patient passed a substantial amount of gas, mucous, and old blood that appeared c onsistent with surgical remnants. Patient denies any changes in pain, stomach remains rounde d, soft, and supple; abdominal tenderness remains as it was at shift change, and there is no asael blood. [facility]. Kris Smith RN 07/13/2015 5:42 AM aleem Christie MD - 07/12/2015 9:55 AM PDT Progress Notes by Saleem Shore MD at 07/12/1555 Author: Saleem Shore MD Service: General Surgery Author Type: Physician Filed: 07/12/1557 Date of Service: 07/12/15954 Status: Signed Drug Department Worker: Saleem Shore MD (Physician) [facility] Service: Colon & Rectal Surgery Progress Note [...] 07/12/1548 Date of Service: 07/12/15546 Status: Signed Drug Department Worker: Kris Smith RN (Registered Nurse) Patient educated [...] Author: BRIA Ward Service: (none) Author Type: End User Support Specialist Filed: 07/11/151512 Date of Service: 07/11/151511 Status: Signed Drug Department Worker: BRIA Ward (End User Support Specialist) CM met with pt for discharge planning. [...] 07/11/151411 Date of Service: 07/11/151411 Status: Signed Drug Department Worker: Harry Santos RPH (Pharmacist) Pharmacy will renal [...] [address] | | | | | | [facility] [address] | | | | | | [place] [address] | | | | | | [phone] | | | | | | | | +--------+ + + + + | 02/21/ | Surgery | | Saleem Shore, | COLONOSCOPY | | 2019 | | | [address] | | | | | | [address] | | | | | | [place] [address] | | | | | | [phone] | | | | | | | [...] | | average thickness of 0.8 cm. 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 Diagnostician: Asya Garcia | | | Mary [...] EXTERNAL | | | | performed at [facility], [address] | K/uL | LAB | | | | [address], | | | | | | [place] [address] | | | | + + + + + + | RED CELL | 3.87 (L)Comment: Testing | 4.20 - 5.70 | EXTERNAL | | | COUNT | performed at [facility], [address] | M/uL | LAB | | | | [address], | | | | | | [place] [address] | | | | + + + + + + | Hgb | 12.5 (L)Comment: Testing | 13.2 - 17.0 | EXTERNAL | | | | performed at [facility], [address] | g/dL | LAB | | | | [address], | | | | | | [place] [address] | | | | + + + + + + | Hematocrit, | 36.2 (L)Comment: Testing | 39.0 - 50.0 % | EXTERNAL | | | POC | performed at [facility], [address] | | LAB | | | | [address], | | | | | | [place] [address] | | | | + + + + + + | MCV | 93.7Comment: Testing | 80.0 - 100.0 fl | EXTERNAL | | | | performed at [facility], [address] | | LAB | | | | [address], | | | | | | [place] [address] | | | | + + + + + + | MCH | 32.3Comment: Testing | 27.0 - 34.0 pg | EXTERNAL | | | | performed at [facility], [address] | | LAB | | | | [address], | | | | | | [place] [address] | | | | + + + + + + | MCHC | 34.5Comment: Testing | 32.0 - 35.5 | EXTERNAL | | | | performed at [facility], [address] | g/dL | LAB | | | | [address], | | | | | | [place] [address] | | | | + + + + + + | RDW-CV | 43.3Comment: Testing | 37 - 53 fl | EXTERNAL | | | | performed at [facility], [address] | | LAB | | | | [address], | | | | | | [place] [address] | | | | + + + + + + | Platelet | 187Comment: Testing | 150 - 400 K/uL | EXTERNAL | | | Count | performed at [facility], [address] | | LAB | | | Plasma | [address], | | | | | | [place] [address] | | | | + + + + + + | MPV | 8.2Comment: Testing | fl | EXTERNAL | | | | performed at [facility], [address] | | LAB | | | | [address], | | | | | | [place] [address] | | | | + + + + + + | Differentia | AUTOMATEDComment: | | EXTERNAL | | | l Type | Testing performed at | | LAB | | | | [facility], [address] | | | | | | [place] | | | | | | [address] | | | | + + + + + + | % Segmented | 73.77Comment: Testing | % | EXTERNAL | | | | performed at [facility], [address] | | LAB | | | Neutrophils | [address], | | | | | | [place] [address] | | | | + + + + + + | % | 17.27Comment: Testing | % | EXTERNAL | | | Lymphocytes | performed at [facility], [address] | | LAB | | | | [address], | | | | | | [place] [address] | | | | + + + + + + | % Monocytes | 6.10Comment: Testing | % | EXTERNAL | | | | performed at [facility], [address] | | LAB | | | | [address], | | | | | | [place] [address] | | | | + + + + + + | % | 2.14Comment: Testing | % | EXTERNAL | | | Eosinophils | performed at [facility], [address] | | LAB | | | | [address], | | | | | | [place] [address] | | | | + + + + + + | % Basophils | 0.72Comment: Testing | % | EXTERNAL | | | | performed at [facility], [address] | | LAB | | | | [address], | | | | | | [place] [address] | | | | + + + + + + | Absolute | 4.48Comment: Testing | 1.90 - 7.40 | EXTERNAL | | | Segmented | performed at [facility], [address] | K/uL | LAB | | | Neutrophils | [address], | | | | | | [place] [address] | | | | + + + + + + | Absolute | 1.05Comment: Testing | 1.00 - 3.90 | EXTERNAL | | | Lymphocytes | performed at [facility], [address] | K/uL | LAB | | | | [address], | | | | | | [place] [address] | | | | + + + + + + | Absolute | 0.37Comment: Testing | 0.00 - 0.80 | EXTERNAL | | | Monocytes | performed at [facility], [address] | K/uL | LAB | | | | [address], | | | | | | [place] [address] | | | | + + + + + + | Absolute | 0.13Comment: Testing | 0.00 - 0.50 | EXTERNAL | | | Eosinophils | performed at [facility], [address] | K/uL | LAB | | | [address], | | | | | | [place] [address] | | | | + + + + + + | Absolute | 0.04Comment: Testing | 0.00 - 0.10 | EXTERNAL | | | Basophils | performed at [facility], [address] | K/uL | LAB | | | | [address], | | | | | | [place] [address] | | | | + + + [...] | | | | [place] [address] | | | | + + + [...] EXTERNAL | | | | performed at [facility], [address] | | LAB | | | | [address], | | | | | | [place] [address] | | | | + + + [...] | | | | [place] [address] | | | | + + + + + + | K | 3.7Comment: Testing | 3.5 - 4.9 | EXTERNAL | | | | performed at [facility], [address] | mmol/L | LAB | | | | [address], | | | | | | [place] [address] | | | | + + + + + + | Cl | 102Comment: Testing | 99 - 109 mmol/L | EXTERNAL | | | | performed at [facility], [address] | | LAB | | | | [address], | | | | | | [place] [address] | | | | + + + + + + | CO2 | 26Comment: Testing | 23 - 32 mmol/L | EXTERNAL | | | | performed at [facility], [address] | | LAB | | | | [address], | | | | | | [place] [address] | | | | + + + + + + | Anion Gap | 10Comment: Testing | 5 - 20 mmol/L | EXTERNAL | | | | performed at [facility], [address] | | LAB | | | | [address], | | | | | | [place] [address] | | | | + + + + + + | Glucose, | 80Comment: Testing | 65 - 99 mg/dL | EXTERNAL | | | Fasting | performed at [facility], [address] | | LAB | | | | [address], | | | | | | [place] [address] | | | | + + + + + + | BUN | 9Comment: Testing | 8 - 25 mg/dL | EXTERNAL | | | | performed at [facility], [address] | | LAB | | | | [address], | | | | | | [place] [address] | | | | + + + + + + | Creatinine | 0.71Comment: Testing | 0.70 - 1.30 | EXTERNAL | | | | performed at [facility], [address] | mg/dL | LAB | | | | [address], | | | | | | [place] [address] | | | | + + + + + + | BUN/Creatin | 13Comment: Testing | | EXTERNAL | | | ine Ratio | performed at [facility], [address] | | LAB | | | | [address], | | | | | | [place] [address] | | | | + + + + + + | Calcium | 8.4 (L)Comment: Testing | 8.5 - 10.5 | EXTERNAL | | | | performed at [facility], [address] | mg/dL | LAB | | | | [address], | | | | | | [place] [address] | | | | + + + [...] | | | | | | at [facility], [address] | | | | | | [place] [address], | | | | | | [place] [address] | | | | + + + [...] EXTERNAL | | | | performed at [facility];[address] | K/uL | LAB | | | | [address];[place] | | | | | | [address] | | | | + + + + + + | RED CELL | 3.82 (L)Comment: Testing | 4.20 - 5.70 | EXTERNAL | | | COUNT | performed at [facility];[address] | M/uL | LAB | | | | [address];[place] | | | | | | [address] | | | | + + + + + + | Hgb | 12.5 (L)Comment: Testing | 13.2 - 17.0 | EXTERNAL | | | | performed at [facility];[address] | g/dL | LAB | | | | [address];[place] | | | | | | [address] | | | | + + + + + + | Hematocrit, | 34.9 (L)Comment: Testing | 39.0 - 50.0 % | EXTERNAL | | | POC | performed at [facility];[address] | | LAB | | | | [address];[place] | | | | | | [address] | | | | + + + + + + | MCV | 91.5Comment: Testing | 80.0 - 100.0 fl | EXTERNAL | | | | performed at [facility];[address] | | LAB | | | | [address];[place] | | | | | | [address] | | | | + + + + + + | MCH | 32.8Comment: Testing | 27.0 - 34.0 pg | EXTERNAL | | | | performed at [facility];[address] | | LAB | | | | [address];[place] | | | | | | [address] | | | | + + + + + + | MCHC | 35.8 (H)Comment: Testing | 32.0 - 35.5 | EXTERNAL | | | | performed at [facility];[address] | g/dL | LAB | | | | [address];[place] | | | | | | [address] | | | | + + + + + + | RDW-CV | 43.3Comment: Testing | 37 - 53 fl | EXTERNAL | | | | performed at [facility];[address] | | LAB | | | | [address];[place] | | | | | | [address] | | | | + + + + + + | Platelet | 197Comment: Testing | 150 - 400 K/uL | EXTERNAL | | | Count | performed at [facility];[address] | | LAB | | | Plasma | [address];[place] | | | | | | [address] | | | | + + + + + + | MPV | 7.5Comment: Testing | fl | EXTERNAL | | | | performed at [facility];[address] | | LAB | | | | [address];[place] | | | | | | [address] | | | | + + + + + + | Differentia | AUTOMATEDComment: | | EXTERNAL | | | l Type | Testing performed at | | LAB | | | | [facility];[address] | | | [address];[place] [address] | | | | + + + + + + | % Segmented | 80.27Comment: Testing | % | EXTERNAL | | | | performed at [facility];[address] | | LAB | | | Neutrophils | [address];[place] | | | | | | [address] | | | | + + + + + + | % | 11.95Comment: Testing | % | EXTERNAL | | | Lymphocytes | performed at [facility];[address] | | LAB | | | | [address];[place] | | | | | | [address] | | | | + + + + + + | % Monocytes | 7.21Comment: Testing | % | EXTERNAL | | | | performed at [facility];[address] | | LAB | | | | [address];[place] | | | | | | [address] | | | | + + + + + + | % | 0.09Comment: Testing | % | EXTERNAL | | | Eosinophils | performed at [facility];[address] | | LAB | | | | [address];[place] | | | | | | [address] | | | | + + + + + + | % Basophils | 0.48Comment: Testing | % | EXTERNAL | | | | performed at [facility];[address] | | LAB | | | | [address];[place] | | | | | | [address] | | | | + + + + + + | Absolute | 5.45Comment: Testing | 1.90 - 7.40 | EXTERNAL | | | Segmented | performed at [facility];[address] | K/uL | LAB | | | Neutrophils | [address];[place] | | | | | | [address] | | | | + + + + + + | Absolute | 0.81 (L)Comment: Testing | 1.00 - 3.90 | EXTERNAL | | | Lymphocytes | performed at [facility];[address] | K/uL | LAB | | | | [address];[place] | | | | | | [address] | | | | + + + + + + | Absolute | 0.49Comment: Testing | 0.00 - 0.80 | EXTERNAL | | | Monocytes | performed at [facility];[address] | K/uL | LAB | | | | [address];[place] | | | | | | [address] | | | | + + + + + + | Absolute | 0.01Comment: Testing | 0.00 - 0.50 | EXTERNAL | | | Eosinophils | performed at [facility];[address] | K/uL | LAB | | | | [address];[place] | | | | | | [address] | | | | + + + + + + | Absolute | 0.03Comment: Testing | 0.00 - 0.10 | EXTERNAL | | | Basophils | performed at [facility];[address] | K/uL | LAB | | | | [address];[place] | | | | | | [address] | | | | + + + [...] EXTERNAL | | | | performed at [facility];[address] | | LAB | | | | [address];[place], [place] | | | | | | [address] | | | | + + + [...] EXTERNAL | | | | performed at [facility];[address] | mmol/L | LAB | | | | [address];[place] | | | | | | [address] | | | | + + + + + + | K | 4.3Comment: Testing | 3.5 - 4.9 | EXTERNAL | | | | performed at [facility];[address] | mmol/L | LAB | | | | [address];[place] | | | | | | [address] | | | | + + + + + + | Cl | 100Comment: Testing | 99 - 109 mmol/L | EXTERNAL | | | | performed at [facility];[address] | | LAB | | | | [address];[place] | | | | | | [address] | | | | + + + + + + | CO2 | 28Comment: Testing | 23 - 32 mmol/L | EXTERNAL | | | | performed at [facility];[address] | | LAB | | | | [address];[place] | | | | | | [address] | | | | + + + + + + | Anion Gap | 12Comment: Testing | 5 - 20 mmol/L | EXTERNAL | | | | performed at [facility];[address] | | LAB | | | | [address];[place] | | | | | | [address] | | | | + + + + + + | Glucose, | 100 (H)Comment: Testing | 65 - 99 mg/dL | EXTERNAL | | | Fasting | performed at [facility];[address] | | LAB | | | | [address];[place] | | | | | | [address] | | | | + + + + + + | BUN | 8Comment: Testing | 8 - 25 mg/dL | EXTERNAL | | | | performed at [facility];[address] | | LAB | | | | [address];[place] | | | | | | [address] | | | | + + + + + + | Creatinine | 0.68 (L)Comment: Testing | 0.70 - 1.30 | EXTERNAL | | | | performed at [facility];888 | mg/dL | LAB | | | | [address];[place] | | | | | | [address] | | | | + + + + + + | Calcium | 8.0 (L)Comment: Testing | 8.5 - 10.5 | EXTERNAL | | | | performed at [facility];[address] | mg/dL | LAB | | | | [address];[place] | | | | | | [address] | | | | + + + + + + | Albumin | 2.8 (L)Comment: Testing | 3.3 - 4.8 g/dL | EXTERNAL | | | | performed at [facility];[address] | | LAB | | | | [address];[place] | | | | | | [address] | | | | + + + + + + | PHOSPHORUS | 2.9Comment: Testing | 2.3 - 4.8 mg/dL | EXTERNAL | | | | performed at [facility];[address] | | LAB | | | | [address];[place] | | | | | | [address] | | | | + + + [...] | | | | | | at [facility];[address];[place] [address] | | | | + + + [...]
--- OUTSIDE RECORDS SUMMARY | ~2019-02-11 | XMS | Encounter Summary ---
Demographics + + + | Address | [address] | | | [place] [address] | + + + | Home Phone | | + + + | Preferred Language | Unknown | + + + | Marital Status | Single | + + + | Adventism Affiliation | Unknown | + + + | Race | Unknown | + + + | Ethnic Group | Unknown | + + + Author + + + | Author | [facility] | | | and [place] | + + + | Organization | [facility] | | | [...] Team Providers + +------+ + | Care Precision Filer Hand Name | Role | Phone | + +------+ + | Kris Hernandez | PCP | | + +------+ + Encounter Details +--------+ + + + + | Date | Type | Department | Care Team | Description | +--------+ + + + + | 08/25/ | Orders Only | [facility] GENER[facility] OP | Conversion | | | 2016 | | CONVERSION DE[address] | Transaction, | | | | | [address] | Provider Unknown | | | | | [facility] [place] | [phone] | | | | | [address] | | | | | | [phone] | | | +--------+ + + + [...] + | 02/21/ | Hospital | | Ailabouni, Saleem D, | Rectal prolapse | | 2018 | Encounter | | MD Rebecca [address]UNO | | | | | | [address] | | | | | | [place] [address] | | | | | | [phone] | | | | | | | | +--------+ + + + + | 02/21/ | Surgery | | Saleem Shore, | COLONOSCOPY | | 2018 | | | MD Rebecca [address]UNO | | | | | | [address] | | | | | | [place] [address] | | | | | | [phone] | | | | | | | | +--------+ + + + + documented as of this encounter Visit Diagnoses Not on filedocumented in this encounter"
--- OUTSIDE RECORDS SUMMARY | ~2019-02-11 | XMS | Encounter Summary ---
Demographics + + + | Address | [address] | | | [place] [address] | + + + | Home Phone | | + + + | Preferred Language | Unknown | + + + | Marital Status | Single | + + + | Episcopal Affiliation | Unknown | + + + | Race | Unknown | + + + | Ethnic Group | Unknown | + + + Author + + + | Author | [facility] | | | and [place] | + + + | Organization | [facility] | | | [...] Team Providers + +------+ + | Care Accountant Supervisor Name | Role | Phone | + +------+ + PCP | Unavailable | + +------+ + Encounter Details +--------+ + + + + | Date | Type | Department | Care Team | Description | +--------+ + + + + | 08/13/ | Hospital | [facility] GENER[facility] IP | Conversion | Pain | | 2014 | Encounter | CONVERSION [address] | Transaction, | | | | | [address] | Provider Unknown | | | | | [place] | [phone] | | | | | [address] | | | | | | [phone] | | | +--------+ + + + [...] | | 2019 | Encounter | | MD Rebecca BRUNO | | | | | | [address] | | | | | | [place] [address] | | | | | | [phone] | | | | | | | | +--------+ + + + + | 02/21/ | Surgery | | Saleem Shore, | COLONOSCOPY | | 2019 | | | [address] | | | | | | [address] | | | | | | [place] [address] | | | | | | [phone] | | | | | | | | +--------+ + + + + documented as of this encounter Procedures + +--------+ + + + | Procedure Name | Priori | Date/Time | Associated Diagnosis | Comments | | | ty | | | | + +--------+ + + + | CT ABDOMEN PELVIS W | Routin | 08/02/2014 | | Results for this | | CONTRAST | e | 2:43 AM | | procedure are in the | | | | PDT | | results section. | + +--------+ + + + documented in this encounter Results CT Abdomen Pelvis w Contrast (08/02/2014 2:43 AM PDT) + + | Specimen | + + | | + + + + + | Narrative | Performed At | + + + | This is a non-reportable procedure without a radiologist report and | | | is used for image storage only | | + + + + + | Procedure Note | + + | Billy De La Garza - 11/10/2018 8:48 AM PDT This is a non-reportable procedure | | without a radiologist report and isused for image storage only | + + documented in this encounter Visit Diagnoses + + | Diagnosis | + + | Pain Generalized pain | + + documented in this encounter"
--- OUTSIDE RECORDS SUMMARY | ~2019-02-11 | XMS | Encounter Summary ---
Demographics + + + | Address | [address] | | | [place] [address] | + + + | Home Phone | | + + + | Preferred Language | Unknown | + + + | Marital Status | Single | + + + | Anabaptist Affiliation | Unknown | + + + | Race | Unknown | + + + | Ethnic Group | Unknown | + + + Author + + + | Author | [facility] | | | and [place] | + + + | Organization | [facility] | | | [...] Team Providers + +------+ + | Care Machine Loader Name | Role | Phone | + +------+ + PCP | Unavailable | + +------+ + Encounter Details +--------+ + + + + | Date | Type | Department | Care Team | Description | +--------+ + + + + | 04/23/ | Hospital | [facility] | Conversion | Rectal cancer (HCC) | | 2016 | Encounter | [facility] | Transaction, | | | | | [address] | Provider Unknown | | | | | [place], [place] | | | | | | [phone] | (Fax) | | | | | [phone] | | | +--------+ + + + [...] | 2019 | Encounter | | MD [address] | | | | | | [address] | | | | | | [place] [address] | | | | | | [phone] | | | | | | | | +--------+ + + + + | 02/21/ | Surgery | | Saleem Shore, | COLONOSCOPY | | 2019 | | | MD [address] | | | | | | [address] | | | | | | [place] [address] | | | | | | [phone] | | | | | | | | +--------+ + + + + documented as of this encounter Procedures + +--------+ + + + | Procedure Name | Priori | Date/Time | Associated Diagnosis | Comments | | | ty | | | | + +--------+ + + + | FL BARIUM ENEMA | Routin | 04/23/2015 | | Results for this | | | e | 9:58 AM | | procedure are in the | | | | PST | | results section. | + +--------+ + + + documented in this encounter Results FL Barium Enema (04/23/2015 9:58 AM PST) + + | Specimen | + + | | + + + + + | Impressions | Performed At | + + + | 1. Limited evaluation of rectum due to very limited rectal | | | distention and patient's inability to retain contrast. 2. No | | | evidence of colonic perforation. 3. Scattered colonic diverticula. | | | | | + + + + + + | Narrative | Performed At | + + + | [facility] XR COLON SINGLE CONTRAST 04/23/2015 10:36 AM | | | HISTORY: 64 years. Male. Rectal cancer, status ultrapost low | | | anterior colon resection TECHNIQUE: Single contrast examination | | | of the colon was performed to evaluate for patency of the colon and | | | evaluate for contrast leak using Gastrografin. Multiple fluoroscopic | | | and spot radiographs of the abdomen and pelvis are obtained. | | | COMPARISON: Multiple, most recent abdominal radiographs dated | | | 01/24/2015. Fluoro time: 0.2 minutes Fluoroscopy dose: 53.4 | | | mGy FINDINGS: Postsurgical changes from low anterior colonic | | | resection, incompletely evaluated in the absence of rectal distention. | | | Very limited rectal distention could be obtained due to patient's | | | inability to retained contrast. No extravasation of contrast | | | outside the colonic lumen. There is opacification of the entire large | | | bowel with reflux of contrast into the terminal ileum. Scattered | | | colonic diverticula. | | + + + + + | Procedure Note | + + | Frederic, Rad Conversion - 11/09/2018 1:58 PM PDT [facility] EATONXR COLON SINGLE | | CONTRAST04/23/2015 10:36 AM HISTORY:64 years. Male. Rectal cancer, status ultrapost low | | anterior colon resection TECHNIQUE:Single contrast examination of the colon was | | performed to evaluate for patency of the colon and evaluate for contrast leak using | | Gastrografin. Multiple fluoroscopic and spot radiographs of the abdomen and pelvis are | | obtained. COMPARISON:Multiple, most recent abdominal radiographs dated 01/24/2015. | | Fluoro time:0.2 minutes Fluoroscopy dose:53.4 mGy FINDINGS:Postsurgical changes from low | | anterior colonic resection, incompletely evaluated in the absence of rectal distention. | | Very limited rectal distention could be obtained due to patient's inability to retained | | contrast. No extravasation of contrast outside the colonic lumen. There is | | opacification of the entire large bowel with reflux of contrast into the terminal ileum. | | Scattered colonic diverticula. IMPRESSION: 1. Limited evaluation of rectum due to very | | limited rectal distention and patient's inability to retain contrast.2. No evidence of | | colonic perforation.3. Scattered colonic diverticula. | | | |Fluoroscopy dose: | |53.4 mGy | | | |FINDINGS: | |Postsurgical changes from low anterior colonic resection, incompletely evaluated in the abs ence of rectal distention. Very limited rectal distention could be obtained due to patient's inability to retained contrast. | | | |No extravasation of contrast outside the colonic lumen. There is opacification of the entir e large bowel with reflux of contrast into the terminal ileum. | | | |Scattered colonic diverticula. | | | |IMPRESSION: | |1. Limited evaluation of rectum due to very limited rectal distention and patient's inabil ity to retain contrast. | |2. No evidence of colonic perforation. | |3. Scattered colonic diverticula. | | | | | + + documented in this encounter Visit Diagnoses + + | Diagnosis | + + | Rectal cancer (HCC) Malignant neoplasm of rectum | + + documented in this encounter"
--- OUTSIDE RECORDS SUMMARY | ~2019-02-11 | XMS | Encounter Summary ---
Demographics + + + | Address | [address] | | | [place] [address] | + + + | Home Phone | | + + + | Preferred Language | Unknown | + + + | Marital Status | Single | + + + | Buddhism Affiliation | Unknown | + + + [...] Team Providers + +------+ + | Care Senior C Web Developer Name | Role | Phone | + +------+ + PCP | Unavailable | + +------+ + Encounter Details +--------+ + + + + | Date | Type | Department | Care Team | Description | +--------+ + + + + | 08/21/ | Hospital | [facility] | Saleem Shore, | Rectal cancer (HCC) | | 2014 | Encounter | [facility] | [address] | | | | | INTRA OP [address] | [address] | | | | | [address] [place], [place] | [place] [address] | | | | | [address] | [phone] | | | | | [phone] | | | +--------+ + + + [...] 2019 | Encounter | | MD [address] | | | | | | [address] | | | | | | [place] [address] | | | | | | [phone] | | | | | | | | +--------+ + + + + | 02/21/ | Surgery | | Saleem Shore, | COLONOSCOPY | | 2019 | | | MD [address] | | | | | | [address] | | | | | | [place] [address] | | | | | | [phone] | | | | | | | | +--------+ + + + + documented as of this encounter Procedures + +--------+ + + + | Procedure Name | Priori | Date/Time | Associated Diagnosis | Comments | | | ty | | | | + +--------+ + + + | TISSUE REQUEST FOR | Routin | 08/22/2014 | | Results for this | | PATHOLOGY (NON-ORD) | e | 12:00 AM | | procedure are in the | | | | PDT | | results section. | + +--------+ + + + documented in this encounter Results Tissue Request For Pathology (08/22/2014 12:00 AM PDT) + + | Specimen | + + | Soft tissue sample | | (specimen) | + + + + + | Narrative | Performed At | + + + | SPECIMEN(S): A RECTAL MASS SPECIMEN SOURCE: A. RECTAL MASS | EXTERNAL LAB | | CLINICAL HISTORY: 08/23/2014 at 1400 H. Rectal mass. FINAL | | | PATHOLOGIC DIAGNOSIS: Rectal mass, biopsies: - Invasive, well to | | | moderately differentiated adenocarcinoma. As part of the Quality | | | Assurance Program, this case was reviewed by another member of [facility] | | | Pathology (BES) AMB:lac: C1NR GROSS DESCRIPTION: The specimen | | | is received in formalin labeled with the patient's name and designated | | | "rectal mass" and consists of multiple yellow-white soft tissue | | | fragments that range in size from 0.1 cm up to 0.5 cm in greatest | | | dimension. The specimen is entirely submitted in cassette A1. FM:lac | | | MICROSCOPIC EXAMINATION: Histologic sections of all submitted blocks | | | are examined by light microscopy. These findings, together with the | | | gross examination, support the pathologic diagnosis. PERFORMING | | | LABORATORY: Professional interpretation and technical preparation was | | | performed by [facility] | | | [place] [address] ([employer] Gluer: Rahul | | | Anne Adamson; [facility]#: [id number]). Diagnostician: Asya Hernandez MD | | | Pathologist Electronically Signed 08/23/2014 | | + + + + +---------+ [...]
--- OUTSIDE RECORDS SUMMARY | ~2019-02-11 | XMS | Encounter Summary ---
Demographics + + + | Address | [address] | | | [place] [address] | + + + | Home Phone | | + + + | Preferred Language | Unknown | + + + | Marital Status | Single | + + + | Congregation Affiliation | Unknown | + + + | Race | Unknown | + + + | Ethnic Group | Unknown | + + + Author + + + | Author | [facility] | | | and [place] | + + + | Organization | [facility] | | | [...] Team Providers + +------+ + | Care Cephalometric Technician Name | Role | Phone | + +------+ + PCP | Unavailable | + +------+ + Encounter Details +--------+ + + + + | Date | Type | Department | Care Team | Description | +--------+ + + + + | 01/01/ | Hospital | [facility] | Conversion | Ostomy nurse | | 2015 | Encounter | CENTER OUTPATIENT | Transaction, | consultation | | | | WOUND CARE [address] | Provider Unknown | | | | | [place], [place] | [phone] | | | | | [address] | | | | | | [phone] | | | +--------+ + + + [...] Notes by Susan Bennett RN at 01/01/15 1434 Author: Susan Bennett RN Service: (none) Author Type: Registered Nurse Filed: 01/01/15 1720 Encounter Date: 01/01/2015 Status: Addendum Casing Sewer: Susan Bennett RN (Registered Nurse) Related Notes: Original Note by Susan Bennett RN (Registered Nurse) filed at 01/01/15 8368 Pre. Op teaching done. Ileostomy packet reviewed [...] skin sealant. Teg aderm placed over site. administrative job titles here with patient for consultation and patient questions answered with help of inventory transcriber. I spent 60 minutes with this patient [...] BRUNO | | | | | | [facility] [address] | | | | | | [place] [address] | | | | | | [phone] | | | | | | | | +--------+ + + + + | 02/21/ | Surgery | | Saleem Shore, | COLONOSCOPY | | 2018 | | | MD Rebecca BRUNO | | | | | | [facility] [address] | | | | | | [place] [address] | | | | | | [phone] | | | | | | | | +--------+ + + + + documented as of this encounter Visit Diagnoses + + | Diagnosis | + + | Ostomy nurse consultation | + + documented in this encounter
--- OUTSIDE RECORDS SUMMARY | ~2019-02-11 | XMS | Encounter Summary ---
Demographics + + + | Address | [address] | | | [place] [address] | + + + | Home Phone | | + + + | Preferred Language | Unknown | + + + | Marital Status | Single | + + + | Buddhist Affiliation | Unknown | + + + | Race | Unknown | + + + | Ethnic Group | Unknown | + + + Author + + + | Author | [facility] | | | and [place] | + + + | Organization | [facility] | | | [...] Team Providers + +------+ + | Care Director Of Veterans Affairs Name | Role | Phone | + +------+ + PCP | Unavailable | + +------+ + Encounter Details +--------+ + + + + | Date | Type | Department | Care Team | Description | +--------+ + + + + | 12/25/ | Hospital | [facility] | aSleem Shore, | Rectal cancer (HCC) | | 2014 | Encounter | [facility] | [address] | | | | | INTRA OP [address] | [address] | | | | | [place]VD [place], [place] | [place] [address] | | | | | [address] | [phone] | | | | | [phone] | | | +--------+ + + + [...] [address] | | | | | | [place] [address] | | | | | | [phone] | | | | | | | | +--------+ + + + + | 02/21/ | Surgery | | Saleem Shore, | COLONOSCOPY | | 2019 | | | MD [address] | | | | | | [address] | | | | | | [place] [address] | | | | | | [phone] | | | | | | | | +--------+ + + + + documented as of this encounter Visit Diagnoses + + | Diagnosis | + + | Rectal cancer (HCC) Malignant neoplasm of rectum | + + documented in this encounter"
--- OUTSIDE RECORDS SUMMARY | ~2019-02-11 | XMS | Encounter Summary ---
Demographics + + + | Address | [address] | | | [place] [address] | + + + | Home Phone | | + + + | Preferred Language | Unknown | + + + | Marital Status | Single | + + + | Restorationism Affiliation | Unknown | + + + | Race | Unknown | + + + | Ethnic Group | Unknown | + + + Author + + + | Author | [facility] | | | and [place] | + + + | Organization | [facility] | | | [...] Team Providers + +------+ + | Care Auto Specialty Services Manager Name | Role | Phone | + +------+ + PCP | Unavailable | + +------+ + Encounter Details +--------+ + + + + | Date | Type | Department | Care Team | Description | +--------+ + + + + | 01/01/ | Hospital | [facility] | Conversion | Ostomy nurse | | 2015 | Encounter | CENTER OUTPATIENT | Transaction, | consultation | | | | WOUND CARE [address] | Provider Unknown | | | | | [place], [place] | [phone] | | | | | [address] | | | | | | [phone] | | | +--------+ + + + [...] Notes by Susan Bennett RN at 01/01/15 0178 Author: Susan Bennett RN Service: (none) Author Type: Registered Nurse Filed: 01/01/15 5252 Encounter Date: 01/01/2015 Status: Addendum Soldering Machine Operator Automatic: Susan Bennett RN (Registered Nurse) Related Notes: Original Note by Susan Bennett RN (Registered Nurse) filed at 01/01/15 5511 Pre. Op teaching done. Ileostomy packet reviewed [...] skin sealant. Teg aderm placed over site. political advisor here with patient for consultation and patient questions answered with help of gear grinder. I spent 60 minutes with this patient [...] | | | | | | [facility] [address] | | | | | | [place] [address] | | | | | | [phone] | | | | | | | | +--------+ + + + + | 02/21/ | Surgery | | Saleem Shore, | COLONOSCOPY | | 2018 | | | MD Rebecca BRUNO | | | | | | [facility] [address] | | | | | | [place] [address] | | | | | | [phone] | | | | | | | | +--------+ + + + + documented as of this encounter Visit Diagnoses + + | Diagnosis | + + | Ostomy nurse consultation | + + documented in this encounter
--- OUTSIDE RECORDS SUMMARY | ~2019-02-11 | XMS | Encounter Summary ---
Demographics + + + | Address | [address] | | | [place] [address] | + + + | Home Phone | | + + + | Preferred Language | Unknown | + + + | Marital Status | Single | + + + | Mandaen Affiliation | Unknown | + + + [...] Team Providers + +------+ + | Care Time Clerk Name | Role | Phone | + +------+ + PCP | Unavailable | + +------+ + Encounter Details +--------+ + + + + | Date | Type | Department | Care Team | Description | +--------+ + + + + | 06/25/ | Hospital | [facility] | Conversion | | | 2016 | Encounter | CENTER [facility] | Transaction, | | | | | CLINIC [address] | Provider Unknown | | | | | [place] | [phone] | | | | | [address] | | | | | | [phone] | | | +--------+ + + + [...] + + + | Blood Pressure | 123/67 | 06/26/2015 10:30 AM | | | | | PDT | | + + + + + | Pulse | 82 | 06/26/2015 10:30 AM | | | | | PDT | | + + + + + | Temperature | - | - | | + + + + + | Respiratory Rate | - | - | | + + + + + | Oxygen Saturation | - | - | | + + + + + | Inhaled Oxygen | - | - | | | Concentration | | | | + + + + + | Weight | 70 kg (154 lb 5.1 | 06/26/2015 10:30 AM | | | | oz) | PDT | | + + + + + | Height | 162.6 cm (5' 4") | 06/26/2015 10:30 AM | | | | | PDT | | + + + + + | Body Mass Index | 26.49 | 06/26/2015 10:30 AM | | | | | PDT | | + + + + + documented in this encounter Plan of Treatment [...] [address] | | | | | | [place] [address] | | | | | | [phone] | | | | | | | | +--------+ + + + + | 02/21/ | Surgery | | Saleem Shore, | COLONOSCOPY | | 2019 | | | MD [address] | | | | | | [address] | | | | | | [place] [address] | | | | | | [phone] | | | | | | | | +--------+ + + + + documented as of this encounter Procedures + +--------+ + + + | Procedure Name | Priori | Date/Time | Associated Diagnosis | Comments | | | ty | | | | + +--------+ + + + | EXTERNAL LAB: [facility] | Routin | 06/26/2015 | | Results for this | | | e | 10:23 AM | | procedure are in the | | | | PDT | | results section. | + +--------+ + + + | COMPREHENSIVE | Routin | 06/26/2015 | | Results for this | | METABOLIC PANEL | e | 10:23 AM | | procedure are in the | | | | PDT | | results section. | + +--------+ + + + documented in this encounter Results External Lab: [facility] (06/26/2015 10:23 AM PDT) + + + + + + | Component | Value | Ref Range | Performed | Pathologist | | | | | At | Signature | + + + + + + | WBC | 4.61Comment: Testing | 3.80 - 11.00 | EXTERNAL | | | | performed at [facility], [address] | K/uL | LAB | | | | [address], | | | | | | [place] [address] | | | | + + + + + + | RED CELL | 4.22Comment: Testing | 4.20 - 5.70 | EXTERNAL | | | COUNT | performed at [facility], [address] | M/uL | LAB | | | | [address], | | | | | | [place] [address] | | | | + + + + + + | Hgb | 13.6Comment: Testing | 13.2 - 17.0 | EXTERNAL | | | | performed at [facility], [address] | g/dL | LAB | | | | [address], | | | | | | [place] [address] | | | | + + + + + + | Hematocrit, | 39.2Comment: Testing | 39.0 - 50.0 % | EXTERNAL | | | POC | performed at [facility], [address] | | LAB | | | | [address], | | | | | | [place] [address] | | | | + + + + + + | MCV | 93.0Comment: Testing | 80.0 - 100.0 fl | EXTERNAL | | | | performed at [facility], [address] | | LAB | | | | [address], | | | | | | [place] [address] | | | | + + + + + + | MCH | 32.4Comment: Testing | 27.0 - 34.0 pg | EXTERNAL | | | | performed at [facility], [address] | | LAB | | | | [address], | | | | | | [place] [address] | | | | + + + + + + | MCHC | 34.8Comment: Testing | 32.0 - 35.5 | EXTERNAL | | | | performed at [facility], [address] | g/dL | LAB | | | | [address], | | | | | | [place] [address] | | | | + + + + + + | RDW-CV | 44.2Comment: Testing | 37 - 53 fl | EXTERNAL | | | | performed at [facility], [address] | | LAB | | | | [address], | | | | | | [place] [address] | | | | + + + + + + | Platelet | 191Comment: Testing | 150 - 400 K/uL | EXTERNAL | | | Count | performed at [facility], [address] | | LAB | | | Plasma | [address], | | | | | | [place] [address] | | | | + + + + + + | MPV | 8.5Comment: Testing | fl | EXTERNAL | | | | performed at [facility], [address] | | LAB | | | | [address], | | | | | | [place] [address] | | | | + + + + + + | Differentia | AUTOMATEDComment: | | EXTERNAL | | | l Type | Testing performed at | | LAB | | | | [facility], [address] | | | | | | [place] | | | | | | [address] | | | | + + + + + + | % Segmented | 58.82Comment: Testing | % | EXTERNAL | | | | performed at [facility], [address] | | LAB | | | Neutrophils | [address] [place], | | | | | | [place] [address] | | | | + + + + + + | % | 29.12Comment: Testing | % | EXTERNAL | | | Lymphocytes | performed at [facility], [address] | | LAB | | | | [address], | | | | | | [place] [address] | | | | + + + + + + | % Monocytes | 8.35Comment: Testing | % | EXTERNAL | | | | performed at [facility], [address] | | LAB | | | | [address], | | | | | | [place] [address] | | | | + + + + + + | % | 2.36Comment: Testing | % | EXTERNAL | | | Eosinophils | performed at [facility], [address] | | LAB | | | | [address], | | | | | | [place] [address] | | | | + + + + + + | % Basophils | 1.35Comment: Testing | % | EXTERNAL | | | | performed at [facility], [address] | | LAB | | | | [address], | | | | | | [place] [address] | | | | + + + + + + | Absolute | 2.71Comment: Testing | 1.90 - 7.40 | EXTERNAL | | | Segmented | performed at [facility], [address] | K/uL | LAB | | | Neutrophils | [address], | | | | | | [place] [address] | | | | + + + + + + | Absolute | 1.34Comment: Testing | 1.00 - 3.90 | EXTERNAL | | | Lymphocytes | performed at [facility], [address] | K/uL | LAB | | | | [address], | | | | | | [place] [address] | | | | + + + + + + | Absolute | 0.39Comment: Testing | 0.00 - 0.80 | EXTERNAL | | | Monocytes | performed at [facility], [address] | K/uL | LAB | | | | [address], | | | | | | [place] [address] | | | | + + + + + + | Absolute | 0.11Comment: Testing | 0.00 - 0.50 | EXTERNAL | | | Eosinophils | performed at [facility], [address] | K/uL | LAB | | | | [address], | | | | | | [place] [address] | | | | + + + + + + | Absolute | 0.06Comment: Testing | 0.00 - 0.10 | EXTERNAL | | | Basophils | performed at [facility], [address] | K/uL | LAB | | | | [place], | | | | | | [place] [address] | | | | + + + [...] + +---------+ + + Comprehensive Metabolic Panel (06/26/2015 10:23 AM PDT) + + + + + [...] | | | | [place] [address] | | | | + + + + + + | K | 4.1Comment: Testing | 3.5 - 4.9 | EXTERNAL | | | | performed at [facility], [address] | mmol/L | LAB | | | | [place], | | | | | | [place] [address] | | | | + + + + + + | Cl | 104Comment: Testing | 99 - 109 mmol/L | EXTERNAL | | | | performed at [facility], [address] | | LAB | | | | [address], | | | | | | [place] [address] | | | | + + + + + + | CO2 | 26Comment: Testing | 23 - 32 mmol/L | EXTERNAL | | | | performed at [facility], [address] | | LAB | | | | [address], | | | | | | [place] [address] | | | | + + + + + + | Anion Gap | 9Comment: Testing | 5 - 20 mmol/L | EXTERNAL | | | | performed at [facility], [address] | | LAB | | | | [address], | | | | | | [place] [address] | | | | + + + + + + | Glucose, | 86Comment: Testing | 65 - 99 mg/dL | EXTERNAL | | | Fasting | performed at [facility], [address] | | LAB | | | | [address], | | | | | | [place] [address] | | | | + + + + + + | BUN | 9Comment: Testing | 8 - 25 mg/dL | EXTERNAL | | | | performed at [facility], [address] | | LAB | | | | [address], | | | | | | [place] [address] | | | | + + + + + + | Creatinine | 0.74Comment: Testing | 0.70 - 1.30 | EXTERNAL | | | | performed at [facility], [address] | mg/dL | LAB | | | | [address], | | | | | | [place] [address] | | | | + + + + + + | BUN/Creatin | 12Comment: Testing | | EXTERNAL | | | ine Ratio | performed at [facility], [address] | | LAB | | | | [address], | | | | | | [place] [address] | | | | + + + + + + | Calcium | 9.1Comment: Testing | 8.5 - 10.5 | EXTERNAL | | | | performed at [facility], [address] | mg/dL | LAB | | | | [place], | | | | | | [place] [address] | | | | + + + + + + | Protein, | 7.3Comment: Testing | 6.3 - 8.2 g/dL | EXTERNAL | | | Total | performed at [facility], [address] | | LAB | | | | [place], | | | | | | [place] [address] | | | | + + + + + + | Albumin | 3.7Comment: Testing | 3.3 - 4.8 g/dL | EXTERNAL | | | | performed at [facility], [address] | | LAB | | | [address], | | | | | | [place] [address] | | | | + + + + + + | Globulin | 3.6Comment: Testing | 1.3 - 4.9 g/dL | EXTERNAL | | | | performed at [facility], [address] | | LAB | | | | [address], | | | | | | [place] [address] | | | | + + + + + + | A/G Ratio | 1.0Comment: Testing | 1.0 - 2.4 | EXTERNAL | | | | performed at [facility], [address] | | LAB | | | | [address], | | | | | | [place] [address] | | | | + + + + + + | Bilirubin | 0.6Comment: Testing | 0.1 - 1.5 mg/dL | EXTERNAL | | | Total | performed at [facility], [address] | | LAB | | | | [address], | | | | | | [place] [address] | | | | + + + + + + | ALP, | 116 (H)Comment: Testing | 35 - 115 U/L | EXTERNAL | | | External | performed at [facility], [address] | | LAB | | | | [place], | | | | | | [place] [address] | | | | + + + + + + | AST | 15Comment: Testing | 10 - 45 U/L | EXTERNAL | | | | performed at [facility], [address] | | LAB | | | [address], | | | | | | [place] [address] | | | | + + + + + + | ALT | 14Comment: Testing | 10 - 65 U/L | EXTERNAL | | | | performed at [facility], [address] | | LAB | | | | [address], | | | | | | [place] [address] | | | | + + + [...] [place], | | | | | | [place] [address] | | | | + + + [...] + documented in this encounter Visit Diagnoses Not on filedocumented in this encounter
--- OUTSIDE RECORDS SUMMARY | ~2019-02-11 | XMS | Encounter Summary ---
Demographics + + + | Address | [address] | | | [place] [address] | + + + | Home Phone | | + + + | Preferred Language | Unknown | + + + | Marital Status | Single | + + + | Yazidi Affiliation | Unknown | + + + | Race | Unknown | + + + | Ethnic Group | Unknown | + + + Author + + + | Author | [facility] | | | and [place] | + + + | Organization | [facility] | | | and [...] Team Providers + +------+ + | Care Vascular Technologist Sonographer Name | Role | Phone | + +------+ + PCP | Unavailable | + +------+ + Encounter Details +--------+ + + + + | Date | Type | Department | Care Team | Description | +--------+ + + + + | 03/18/ | Hospital | [facility] | Conversion | Attention to | | 2014 | Encounter | CENTER OUTPATIENT | Transaction, | ileostomy (HCC) | | | | WOUND CARE [address] | Provider Unknown | | | | | [facility] [place] | [phone] | | | | | [address] | | | | | | [phone] | | | +--------+ + + + [...] Progress Notes Conversion Transaction, Provider Unknown - 03/18/2015 12:26 PM PSTFormatting of this note m ight be different from the original. Progress Notes by Susan Horvath RN at 03/18/15 5666 Author: Susan Horvath RN Service: (none) Author Type: Registered Nurse Filed: 03/18/15 6390 Encounter Date: 03/18/2015 Status: Addendum Clinical Physician Assistant: Susan Horvath RN (Registered Nurse) Related Notes: Original Note by Susan Horvath RN (Registered Nurse) filed at 03/18/15 7775 [facility] Service: Ostomy Care Consult Note SUBJECTIVE Patient Summary: Swiss speaking Patient arrives with next door neighbor LiborioArlyn hogue has been assisting patient with transportation. Liborio states that this patient has been receiving home health but that was recently discontinued and they are without ostomy suppli es. They have not been set up with a DME. We will use the language line for this appointmen t. Chief Complaint: Procurement of supplies and itching around stoma. OBJECTIVE Ostomy Type: ileostomy, related to rectal CA. Ostomy site: Stoma measures 1 1/8 " x 1 9/16" located in the RLQ of the abdomen . Stoma is red, moist and Well budded . Mucus fistula is flush with the skin and dumps out at 7 o' clock. Mucocutaneous suture line is intact. Liquid brown stool out in pouch. Patient stat es he is still having a small amount of brown mucus from his anus. Explained that this is t o be expected. Oliva-stomal: Patient has denuded skin from 3-9 o'clock. He c/o burning and itching in the a dimitri. Current Appliance: Arrives in a 2 3/4 inch Ana Laura appliance. Patient arrives with appl iance intact but he has reinforced the appliance wafer with tape. Patient is currentl y getting 3-4 days wear time. He does not have a DME supplier. Patient states they curr ently have enough supplies to last them 0 months. PROBLEM LIST Contact dermatitis Procurement of supplies. ASSESSMENT & PLAN Removed existing appliance with adhesive remover spray. Demonstrated how to safely shave the hair from around the stoma using stomahesive powder an d a clipper. Denuded skin crusted with stomahesive powder. Placed a new [employer]able 2 3/4 inch wafer. Demostrated how to apply the wafer and pouch as per home instructions. 4 wafers and pouches sent home with patient Supplies order faxed to [place] per patient request. I did spent 90 minutes with this patient today in evaluation, teaching and treatment . He is to return to clinic in 4 weeks for assessment of dermatitis and further teaching. Patient states he wishes to have the home health nurse come to his home instead. He is free to do so but he will need to get an order for home health from his MD. Thank you for allowing me to participate in the care of this patient. I will continue to follow with you. Please call if there are any additional questions. SUSAN HORVATH RN, BSN, CWOCN Rishabh stanley in this encounter Plan of Treatment +--------+ + + + + | Date | Type | Specialty | Care Team | Description | +--------+ + + + + | 02/21/ | Hospital | | Saleem Shore, | Rectal prolapse | | 2018 | Encounter | | MD Rebecca BRUNO | | | | | | [address] | | | | | | [place] [address] | | | | | | [phone] | | | | | | | | +--------+ + + + + | 02/21/ | Surgery | | Saleem Shore, | COLONOSCOPY | | 2019 | | | MD Rebecca BRUNO | | | | | | [address] | | | | | | [place] [address] | | | | | | [phone] | | | | | | | | +--------+ + + + + documented as of this encounter Visit Diagnoses + + | Diagnosis | + + | Attention to ileostomy (HCC) Attention to ileostomy | + + documented in this encounter
--- OUTSIDE RECORDS SUMMARY | ~2019-02-11 | XMS | Encounter Summary ---
Demographics + + + | Address | [address] | | | [place] [address] | + + + | Home Phone | | + + + | Preferred Language | Unknown | + + + | Marital Status | Single | + + + | Latter-Day Affiliation | Unknown | + + + | Race | Unknown | + + + | Ethnic Group | Unknown | + + + Author + + + | Author | [facility] | | | and [place] | + + + | Organization | [facility] | | | [...] Team Providers + +------+ + | Care Refinery Operator Visbreaking Name | Role | Phone | + +------+ + PCP | Unavailable | + +------+ + Encounter Details +--------+ + + + + | Date | Type | Department | Care Team | Description | +--------+ + + + + | 12/19/ | Hospital | [facility] | Conversion | | | 2015 | Encounter | CENTER [facility] | Transaction, | | | | | CLINIC [address] | Provider Unknown | | | | | [place] | [phone] | | | | | [address] | | | | | | [phone] | | | +--------+ + + + [...] [address] | | | | | | [place] [address] | | | | | | [phone] | | | | | | | | +--------+ + + + + | 02/21/ | Surgery | | Saleem Shore, | COLONOSCOPY | | 2019 | | | MD Rebecca BRUNO | | | | | | [address] | | | | | | [place] [address] | | | | | | [phone] | | | | | | | | +--------+ + + + + documented as of this encounter Visit Diagnoses Not on filedocumented in this encounter"
--- OUTSIDE RECORDS SUMMARY | ~2019-02-11 | XMS | Encounter Summary ---
Demographics + + + | Address | [address] | | | [place] [address] | + + + | Home Phone | | + + + | Preferred Language | Unknown | + + + | Marital Status | Single | + + + | Temple Affiliation | Unknown | + + + | Race | Unknown | + + + | Ethnic Group | Unknown | + + + Author + + + | Author | [facility] | | | and [place] | + + + | Organization | [facility] | | [...] Team Providers + +------+ + | Care Poultry Grader Name | Role | Phone | + +------+ + PCP | Unavailable | + +------+ + Encounter Details +--------+ + + + + | Date | Type | Department | Care Team | Description | +--------+ + + + + | 03/18/ | Hospital | [facility] | Conversion | Attention to | | 2014 | Encounter | CENTER OUTPATIENT | Transaction, | ileostomy (HCC) | | | | WOUND [facility]ARE [address] | Provider Unknown | | | | | [facility] [place] | [phone] | | | | | [address] | | | | | | [phone] | | | +--------+ + + + [...] Notes by Susan Horvath RN at 03/18/15 5606 Author: Susan Horvath RN Service: (none) Author Type: Registered Nurse Filed: 03/18/15 5187 Encounter Date: 03/18/2015 Status: Addendum Machinist Set Up: Susan Horvath RN (Registered Nurse) Related Notes: Original Note by Susan Horvath RN (Registered Nurse) filed at 03/18/15 1841 [facility] Service: Ostomy Care Consult Note SUBJECTIVE Patient Summary: Russian speaking Patient arrives with next door neighbor [...] home with patient Supplies order faxed to [place] per patient request. I did spent 90 [...] [address] | | | | | | [place] [address] | | | | | | [phone] | | | | | | | | +--------+ + + + + | 02/21/ | Surgery | | Saleem Shore, | COLONOSCOPY | | 2019 | | | MD Rebecca BRUNO | | | | | | [address] | | | | | | [place] [address] | | | | | | [phone] | | | | | | | | +--------+ + + + + documented as of this encounter Visit Diagnoses + + | Diagnosis | + + | Attention to ileostomy (HCC) Attention to ileostomy | + + documented in this encounter
--- OUTSIDE RECORDS SUMMARY | ~2019-02-11 | XMS | Encounter Summary ---
Demographics + + + | Address | [address] | | | [place] [address] | + + + | Home Phone | | + + + | Preferred Language | Unknown | + + + | Marital Status | Single | + + + | Moravian Affiliation | Unknown | + + + | Race | Unknown | + + + | Ethnic Group | Unknown | + + + Author + + + | Author | [facility] | | | and [place] | + + + | Organization | [facility] | | | [...] Team Providers + +------+ + | Care Process Equipment Operator Name | Role | Phone | + +------+ + PCP | Unavailable | + +------+ + Encounter Details +--------+ + + + + | Date | Type | Department | Care Team | Description | +--------+ + + + + | 01/03/ | Hospital | [facility] | Saleem Shore, | Rectal cancer (HCC); | | 2014 - | Encounter | [facility] | [address] | Persistent atrial | | | | INTENSIVE CARE UNIT | [address] | fibrillation ([facility]); | | 01/25/ | | [address] | [place] [address] | Hyperlipidemia; | | 2015 | | [place], [place] | [phone] | Hyposmolality and/or | | | | [address] | | hyponatremia; Acute | | | | [phone] | | respiratory failure | | | | | | with hypoxia ([facility]) | +--------+ + + + + Social [...] at 01/25/15655 Author: Niesha Duarte MD Service: Windows Vmware Engineer Author Type: Physician Filed: 01/25/1517 Date of Service: 01/25/15655 Status: Signed Vice President Global Digital Marketing: Niesha Duarte MD (Physician) [facility] Service: Windows Vmware Engineer Discharge Summary Jose Eaton 64 y.o. Date [...] Patient Summary: Pt is a 64 y/o Czech speaking M with past medical history significant [...] Jan 12 2015 12:18AM Referring Provider Line: [phone] ID: [id number] Xr Abdomen For Feeding Tube [...] Jan 20 2015 4:36AM Referring Provider Line: [phone] ID: [id number] X-ray Chest 1 View 01/19/2015 [...] 12 2015 5:22AM Referring Pro vider Line: [phone] ID: [id number] X-ray Chest 1 View 01/12/2015 1. Right lower lobe airspace consolidation. 2. Satisfactory endotracheal and nasogastric tube placement. RADIA Electronically signed by Toriboi Gallo MD on Jan 12 2015 12:19AM Referring Provider Line: [phone] ID: [id number] X-ray Chest 1 View 01/12/2015 Right lower lobe airspace consolidation. RADIA Electronically signed by Per Gallo MD on Jan 12 2015 12:01AM Referring Provider Line: [phone] ID: [id number] Ultrasound Abdomen Limited 01/16/2015 1. [...] Jan 12 2015 6:44AM Referring Provider Line: [phone] ID: [id number] Echo Cardiac Adult Complete 01/12/2015 1. Overall left ventricular systolic function is moderately impaired with, an EF between 35 - 40 %. 2. Pseudonormal LV diastolic filling pattern, consistent with elevated LA pressure and moderate dysfunction (Grade II). 3. The right ventricle is normal in size. 4. The right ventricular systolic function is impaired. 5. Moderate mitral regurgitation is present. 6. Tuaw-rm-nkxlwhdj tricuspid regurgitation present. 7. There is mild [...] - FLEXIBLE; Surgeon: Saleem Shore MD; Location: [facility] ENDO SCOP; Service: General; Laterality: N/A; Robotic assisted laparoscopic colon resection - coloanal N/A 01/03/2015 Procedure: ROBOTIC ASSISTED LAPAROSCOPIC COLON RESECTION - COLOANAL; Surgeon: Saleem chauhan MD; Location: [facility] MAIN OR; Service: General; Laterality: N/A; coloanal pull thr ough Flexible sigmoidoscopy N/A 01/03/2015 Procedure: SIGMOIDOSCOPY - FLEXIBLE; Surgeon: Saleem Shore MD; Location: [facility] MAIN OR; Service: General; Laterality: N/A; Sigmoidoscopy - rigid N/A 01/03/2015 Procedure: SIGMOIDOSCOPY - RIGID; Surgeon: Saleem Shore MD; Location: [facility] MAIN OR ; Service: General; Laterality: N/A; Flexible bronchoscopy N/A 01/17/2015 Procedure: BRONCHOSCOPY - FLEXIBLE; Surgeon: uLi Lindsey MD; Location: [facility] BEDSID E PROCEDURE; Service: Windows Vmware Engineer; Laterality: N/A; DISCHARGE MEDS Medication List STOP [...] out of bed to chair. Transfer to [facility]. Condition on Discharge: stable Code Status: Full [...] 01/25/15925 Date of Service: 01/25/15914 Status: Signed Vice President Global Digital Marketing: Dolores Coleman RN (Registered Nurse) Report given to TIMOTEO Bowman at [facility] in [place]. Family and patient aware of transfer. Dicus [...] at 01/25/15804 Author: Niesha Duarte MD Service: Windows Vmware Engineer Author Type: Physician Filed: 01/25/15817 Date of Service: 01/25/15804 Status: Addendum Vice President Global Digital Marketing: Niesha Duarte MD (Physician) Related Notes: Original Note by Niesha Duarte MD (Physician) filed at 01/25/15 08 [facility] Service: Windows Vmware Engineer Progress Note Jose Eaton 64 y.o. Hospital Day: LOS: 22 days Post-Op Day: 14 Days Post-Op Consulting Physicians Treatment Team: Consulting Physician: Amy Simons MD Consulting Physician: Mario Crawford MD Admitting Provider: Saleem Shore MD SUBJECTIVE Patient Summary: Pt is a 64 y/o Czech speaking M with past medical history significant [...] Progress Notes by Amy Simons MD at 01/25/15 8417 Author: Amy Simons MD Service: Infectious Disease Author Type: Physician Filed: 01/26/15 1541 Date of Service: 01/25/15 318 Status: Signed Vice President Global Digital Marketing: Amy Simons MD (Physician) [facility] Service: Infectious Disease Progress Note Hospital Day: [...] tin, nystatin, [DISCONTINUED] ondansetron OR ondansetron, pancrelipase (Apn-Cktk-Aijw) 1 0,000 units, petrolatum, polyethylene glycol, potassium [...] from the original. Nurse Progress Note by Shaonn Pak RN at 01/25/15509 Author: Shanon Pak RN Service: (none) Author Type: Registered Nurse Filed: 01/25/1532 Date of Service: 01/25/15509 Status: Signed Vice President Global Digital Marketing: Shanon Pak RN (Registered Nurse) During 4 AM children's nursery assistant noticed that pt's small bore NG tube [...] 01/24/151805 Date of Service: 01/24/151804 Status: Signed Vice President Global Digital Marketing: Saleem Shore MD (Physician) [facility] Service: Colon & Rectal Surgery Progress Note [...] tin, nystatin, [DISCONTINUED] ondansetron OR ondansetron, pancrelipase (Dvr-Mqvh-Hhjy) 1 0,000 units, petrolatum, polyethylene glycol, potassium [...] 01/24/151621 Date of Service: 01/24/151621 Status: Signed Vice President Global Digital Marketing: Anna Suresh RD, CD (Registered Dietitian) 01/24/15 1638 Subjective Timepoint Follow up (high risk) Pt c/o Pt remains on room air. Has been c/o abdominal pain but improving. Small bore NG tub e in place. Plan is for pt to go to fluoroscopy this afternoon to advance the tip of the tub e into the jejunum. Fluid / Beverage Intake Oral Fluids Amount NPO Food Intake Amount of Food NPO per FACT CHECKER. Enteral Nutrition Intake Access NJ tube placement [...] of the pancreas. Pt remains NPO per FACT CHECKER recommendations. Anthropometrics Weight change Wt is now [...] up date 01/27/[address], CD, [facility] 01/24/2015 onver alex [place], Provider Unknown - 01/24/2015 1:38 PM PDT Therapy Progress Note by Fran Hackett PT at 01/24/15 8145 Author: Fran Hackett PT Service: (none) Author Type: Physical Therapist Filed: 01/24/15 2280 Date of Service: 01/24/151337 Status: Signed Vice President Global Digital Marketing: Fran Hackett PT (Physical Therapist) 01/24/15 1338 PT Last Visit PT Received On 01/24/15 Reason for Treatment Deconditioning Requires PT Follow Up Yes Follow up PT Only? Yes Assistance Required 2 person Trim Sawyer Needed Yes Precautions Other Precautions Fall Risk [...] initiate some gait training today with the [facility]). Notes discomfort at times around the [...] 1:10 PM PDT Progress Notes by Choco Hernnadez RPH at 01/24/15 1310 Author: Choco Hernandez RPH Service: Pharmacy Author Type: Pharmacist Filed: 01/24/15 1311 Date of Service: 01/24/15 1310 Status: Signed Vice President Global Digital Marketing: Choco Hernandez RPH (Pharmacist) >> CHOCO HERNANDEZ 01/24/2015 13:10 TPN day 13, lytes WNL. K is up to 4.8-will decrease K in tpn by 20meq/L. Blood sugars goo d. No other changes. onver alex Transaction, Provider Unknown - 01/24/2015 11:27 AM PDT Therapy Progress Note by Grazyna Buckner MS CCC-FACT CHECKER at 01/24/151126 Author: Grazyna Buckner MS CCC-FACT CHECKER Service: (none) Author Type: Speech and Language Patho logist Filed: 01/24/15 1128 Date of Service: 01/24/151126 Status: Signed Vice President Global Digital Marketing: Grazyna Buckner MS CCC-FACT CHECKER (Speech and Language Pathologist) 01/24/15 1100 Swallowing [...] ST informed pt to be transfered to [facility] tomorrow. Staff Notified RN Plan of Care Treatment Plan Continue with current plan Follow up treatments Assessment for upgrade AVS Documentation No FACT CHECKER Ready for Discharge Not Applicable onver alex Transaction, Provider Unknown - 01/24/2015 9:44 AM PDT Case Management by BRIA Lima at 01/24/15943 Author: BRIA Lima Service: (none) Author Type: Music Artist Filed: 01/24/15 1252 Date of Service: 01/24/15943 Status: Addendum Vice President Global Digital Marketing: BRIA Lima (Music Artist) Related Notes: Original Note by BRIA Lima (Music Artist) filed at 01/24/15946 Plan is for pt to transfer to [facility] tomorrow. [facility] as she is arranging transportation. Suad Sánchez, RN,CM will be covering the ICU tomorrow. [phone]. Addendum: Faxed updated progress notes, MAR, TPN orders to [facility] per their request. Matilde Segundo is planning for a 10:00 corn picker tomorrow. She will call later to confirm the time. iesha Mcgee MD - 01/24/2015 8:13 AM PDTFormatting of this note might be different from t danish original. Progress Notes by Niesha Duarte MD at 01/24/15812 Author: Niesha Duarte MD Service: Windows Vmware Engineer Author Type: Physician Filed: 01/24/15916 Date of Service: 01/24/15812 Status: Addendum Vice President Global Digital Marketing: Niesha Duarte MD (Physician) Related Notes: Original Note by Niesha Duarte MD (Physician) filed at 01/24/15913 [facility] Service: Windows Vmware Engineer Progress Note Jose Eaton 64 y.o. Hospital Day: LOS: 21 days Post-Op Day: 14 Days Post-Op Consulting Physicians Treatment Team: Consulting Physician: Amy Simons MD Consulting Physician: Mario Crawford MD Admitting Provider: Saleem Shore MD SUBJECTIVE Patient Summary: Pt is a 64 y/o Czech speaking M with past medical history significant [...] NA Disposition: continue ICU care. Transfer to [facility]. Code Status: Full Code Niesha Duarte MD [...] 1830 Date of Service: 01/24/15707 Status: Signed Vice President Global Digital Marketing: Amy Simons MD (Physician) [facility] Service: Infectious Disease Progress Note Hospital Day: [...] 01/23/151843 Date of Service: 01/23/151842 Status: Signed Vice President Global Digital Marketing: Saleem Shore MD (Physician) [facility] Service: Colon & Rectal Surgery Progress Note [...] Author: BRIA Lima Service: (none) Author Type: Music Artist Filed: 01/23/15 1605 Date of Service: 01/23/15 160 Status: Signed Vice President Global Digital Marketing: BRIA Lima (Music Artist) angela Guadalupe for [facility] met with pt's brother and friend. Plan will be to transfer p t to [facility] on Tuesday. Matilde will arrange the transportation to [facility] tomorrow. I will place paperwork on pt's chart. onver alex Transaction, Provider Unknown - 01/23/2015 1:03 PM PDT Therapy Progress Note by Kitty Peng MA CCC-FACT CHECKER at 01/23/15 1303 Author: Kitty Peng MA CCC-FACT CHECKER Service: (none) Author Type: Speech and Language Patholo gist Filed: 01/23/15 1303 Date of Service: 01/23/15 1303 Status: Signed Vice President Global Digital Marketing: Kitty Peng MA CCC-FACT CHECKER (Speech and Language Pathologist) 01/23/15 1238 Swallowing [...] elevation upon palpation;Thr oat clearing - immediate [place] Presentation Spoon Oral Increased Anterior to Posterior [...] Assessment for upgrade;Patient/Family education;Swallow strategies Dysphagia Goals Cardroom Hand Goals Advanced diet Pt will advanced diet [...] Date of Service: 01/23/15 1234 Status: Signed Vice President Global Digital Marketing: Anna Suresh RD, CD (Registered Dietitian) 01/23/15 [...] Food Intake Amount of Food NPO per FACT CHECKER. Parenteral Nutrition Intake Access PICC Rate/Solution TPN [...] Estimated Energy Needs Total Energy Estimated Needs 8640-8965 kcal/day Method for Estimating Needs 30-35 kcal/kg [...] 11:19 AM PDT Progress Notes by Choco Hernandze RPH at 01/23/151118 Author: Choco Hernandez RPH Service: Pharmacy Author Type: Pharmacist Filed: 01/23/151118 Date of Service: 01/23/151118 Status: Signed Vice President Global Digital Marketing: Choco Hernandez RPH (Pharmacist) TPN day 12, [...] Author: BRIA Lima Service: (none) Author Type: Music Artist Filed: 01/23/15918 Date of Service: 01/23/15917 Status: Signed Vice President Global Digital Marketing: BRIA Lima (Music Artist) Attended morning rounds. Pt needs MRI before decision can be made about transferring tomorr ow to [facility]. Pt is on TPN. Dobhoff to be placed. Pt has mediport and 2 peripheral IV's. Plan is to transfer to [facility] when stable. onver alex Transaction, Provider Unknown - 01/23/2015 8:40 AM PDT Therapy Progress Note by Josafat Streeter PT at 01/23/15 08 Author: Josafat Streeter PT Service: (none) Author Type: Physical Therapist Filed: 01/23/15920 Date of Service: 01/23/15839 Status: Signed Vice President Global Digital Marketing: Josafat Streeter PT (Physical Therapist) 01/23/15839 PT [...] 0756 Date of Service: 01/23/15733 Status: Signed Vice President Global Digital Marketing: Rahul Valles DO (Physician) [facility] Service: Infectious Disease Progress Note Hospital Day: [...] ed any pain or discomfort through the hand paster. When asked specifically what is bothering him [...] Beverly at 01/23/15710 Author: JONATHON Beverly Service: Windows Vmware Engineer Author Type: Nurse Practitioner Filed: 01/23/15 1312 Date of Service: 01/23/15710 Status: Signed Vice President Global Digital Marketing: JONATHON Beverly (Nurse Practitioner) [facility] Service: Windows Vmware Engineer Progress Note Jose Eaton 64 y.o. Hospital Day: LOS: 20 days Post-Op Day: 14 Days Post-Op Consulting Physicians Treatment Team: Consulting Physician: Amy Simons MD Consulting Physician: Mario Crawford MD Admitting Provider: Saleem Shore MD SUBJECTIVE Patient Summary: Pt is a 64 y/o Czech speaking M with past medical history significant [...] of all other procedures. Ebony Lackey MS CCC-FACT CHECKER - 01/22/2015 11:31 AM PDTFormatting of this note might be different from the orig inal. Therapy Progress Note by Ebony Davenport MS CCC-FACT CHECKER at 01/22/15 1131 Author: Ebony Davenport MS CCC-FACT CHECKER Service: (none) Author Type: Speech and Language Pathol ogist Filed: 01/22/15 1132 Date of Service: 01/22/15 113 Status: Signed Vice President Global Digital Marketing: Ebony Davenport MS CCC-FACT CHECKER (Speech and Language Pathologist) 01/22/15 1030 Swallowing [...] laryngeal elevation upon palpation;Cou gh - delayed [place] Presentation Cup Oral Increased Anterior to Posterior [...] and didn't want to eat at all. FACT CHECKER ed re:importance of safe swallowing as pt has p alemmonia from drinking water against MD's order. Pt then stated agreement, however would not take more then 1-3 bites/sips and aspiration risk is high at this time. FACT CHECKER to con't to re- assess as pt is appropriate. Staff Notified RN Plan of Care Treatment Plan ST to follow;Dysphagia treatment;Daily 4 to 6 times a week Follow up treatments Assessment for upgrade Dysphagia Goals Cardroom Hand Goals Advanced diet Pt will advanced diet in 3 days;New/revised goal Short Term Goals Tolerate diet upgrade trials Pt will tolerate diet upgrade trials With 1:1 supervision;New/revised goal EBONY DAVENPORT MS CCC-FACT CHECKER 01/22/2015 onversion Hernandez saction, Provider Unknown - 01/22/2015 11:14 AM PDTFormatting of this note might be differen t from the original. Progress Notes by Choco Hernandez RPH at 01/22/151113 Author: Choco Hernandez RPH Service: Pharmacy Author Type: Pharmacist Filed: 01/22/151113 Date of Service: 01/22/151113 Status: Signed Vice President Global Digital Marketing: Choco Hernandez RPH (Pharmacist) TPN day 11, lytes WNL, blood sugars in the 120's to 150's- will increase insulin in TPN to 60 units/24hr bag, no other changes onver alex Transaction, Provider Unknown - 01/22/2015 9:35 AM PDT Case Management by BRIA iLma at 01/22/15 0974 Author: BRIA Lima Service: (none) Author Type: Music Artist Filed: 01/22/15 1544 Date of Service: 01/22/1531 Status: Addendum Vice President Global Digital Marketing: BRIA Lima (Music Artist) Related Notes: Original Note by BRIA Lima (Music Artist) filed at 01/22/15 0906 Attended morning rounds. Pt was extubated yesterday. On room air. On TPN and lipids. Pt t o have swallow eval today and start to mobilize. Received t.c from Thania at [place] yesterday. Pt has been accepted for admit when med ically stable if he does not go to an LTAC first. Dr. Merrill plans to speak with surgeon. If no further concerns, plan will be to transfer pt to [facility] on Tuesday. Faxed updated clinical to angela Nguyen who is coverin g for Matilde Segundo. ([phone], fax: [phone]). Addendum:Mirela Segundo from [facility] will be here tomorrow. Per Asya, another liason with [facility], pt will likely be able to transfer on Tuesday. Will need to get official auth for transfer tomorrow. Stalin St MD - 01/22/2015 7:45 AM PDTFormatting of this note might be differ ent from the original. Progress Notes by Stalin Finney MD at 01/22/15 0415 Author: Stalin Finney MD Service: Windows Vmware Engineer Author Type: Physician Filed: 01/22/15 1425 Date of Service: 01/22/1528 Status: Signed Vice President Global Digital Marketing: Stalin Finney MD (Physician) [facility] Service: Windows Vmware Engineer Progress Note Jose Eaton 64 y.o. Hospital Day: LOS: 19 days Post-Op Day: 14 Days Post-Op Consulting Physicians Treatment Team: Consulting Physician: Amy Simons MD Consulting Physician: Mario Crawford MD Admitting Provider: Saleem Shore MD SUBJECTIVE Patient Summary: Pt is a 64 y/o Czech speaking M with past medical history significant [...] Intake/Output Summary (Last 24 hours) at 01/22/15 0717 Last data filed at 01/22/15 0631 Gross [...] Jan 12 2015 6:44AM Referring Provider Line: [phone] ID: [id number] Echo Cardiac Adult Complete 01/12/2015 1. Overall left ventricular systolic function is moderately impaired with, an EF between 35 - 40 %. 2. Pseudonormal LV diastolic filling pattern, consistent with elevated LA pressure and moderate dysfunction (Grade II). 3. The right ventricle is normal in size. 4. The right ventricular systolic function is impaired. 5. Moderate mitral regurgitation is present. 6. Mxsx-kz-nxlofdum tricuspid regurgitation present. 7. There is mild [...] 01/22/15727 Date of Service: 01/22/15707 Status: Signed Vice President Global Digital Marketing: Rahul Valles DO (Physician) [facility] Service: Infectious Disease Progress Note Hospital Day: [...] 01/21/151838 Date of Service: 01/21/151835 Status: Signed Vice President Global Digital Marketing: Saleem Shore MD (Physician) [facility] Service: Colon & Rectal Surgery Progress Note [...] by Choco Hernandez RPH at 01/21/151051 Author: Chcoo Hernandez RPH Service: Pharmacy Author Type: Pharmacist Filed: 01/21/15 1053 Date of Service: 01/21/151051 Status: Signed Vice President Global Digital Marketing: Choco Hernandez RPH (Pharmacist) TPN day 10, lytes WNL. Blood sugars 140's to 160's- will increase insulin in TPN to 55 uni ts/24hr bag. No other changes. onver alex Transaction, Provider Unknown - 01/21/2015 7:52 AM PDT Progress Notes by JESSICA Colin at 01/21/15751 Author: JESSICA Colin Service: Windows Vmware Engineer Author Type: Medical Student Filed: 01/21/151701 Date of Service: 01/21/15751 Status: Attested Vice President Global Digital Marketing: JESSICA Colin (Medical Student) Cosigner: Stalin Finney [...] Finney MD Pulmonary and Critical Care Medicine [facility] 01/21/15 6:48PM *Please bill 40 minutes of critical care time spent evaluating the patient, reviewing the d jose guadalupe and formulating a plan exclusive of all other procedures. [facility] Service: Windows Vmware Engineer Progress Note Jose Uma 64 y.o. Hospital Day: LOS: 18 days Post-Op Day: 4 Days Post-Op Consulting Physicians Treatment Team: Consulting Physician: Amy Simons MD Consulting Physician: Mario Crawford MD Admitting Provider: Saleem Shore MD SUBJECTIVE Patient Summary: Pt is a 64 y/o Czech speaking M with past medical history significant [...] 01/21/15713 Date of Service: 01/21/15702 Status: Signed Vice President Global Digital Marketing: Rahul Valles DO (Physician) [facility] Service: Infectious Disease Progress Note Hospital Day: [...] Note by Abilio Alba RN at 01/20/15 2949 Author: Abilio Alba RN Service: (none) Author Type: Registered Nurse Filed: 01/20/15 559 Date of Service: 01/20/151758 Status: Signed Vice President Global Digital Marketing: Abilio Alba RN (Registered Nurse) Sedation holiday [...] 01/20/151644 Date of Service: 01/20/151641 Status: Signed Vice President Global Digital Marketing: Abilio Alba RN (Registered Nurse) Mediport would [...] Author: BRIA Lima Service: (none) Author Type: Music Artist Filed: 01/20/15 154 Date of Service: 01/20/151538 Status: Signed Vice President Global Digital Marketing: BRIA Lima (Music Artist) Met with pt's brother and some friends via hand paster. Discussed possibility of pt needin g and LTAC and the benefits of going to one. Also discussed SNF if LTAC is not needed. Bro ther and friend indicate that they want what is best for pt. LTAC options were discussed and they indicated that they are agreeable to [facility] in [place]. Brother asked if jayeluigi dixon make a [...] (none) Author Type: Physical Therapist Filed: 01/20/15 5509 Date of Service: 01/20/151421 Status: Signed Vice President Global Digital Marketing: Kelli Belle PT (Physical Therapist) 01/20/151421 PT Last Visit PT Received On 01/20/15 Reason for Treatment Deconditioning Requires PT Follow Up Awaiting tx order Follow up PT Only? Yes PT Eval/Reassessment Date 01/20/15 Assistance Required 2 person Home Environment Type of Home Home one story Additional Comments Family provided home information. Prior Function Level of [place] Independent with functional mobility;Independent with ADLs (pt [...] with skilled therapy intervention;Limited by multiple medical [employer] [employer] Safety Devices Safety Devices in Place (RN [...] Date of Service: 01/20/15 134 Status: Signed Vice President Global Digital Marketing: Anna Suresh RD, CD (Registered Dietitian) 01/20/15 [...] output overnight. Skin Skin remains intact - supervisor erection shop to re-eval. Anthropometrics Weight change No new [...] 1056 Date of Service: 01/20/151055 Status: Signed Vice President Global Digital Marketing: Choco Hernandez RPH (Pharmacist) TPN day 9, Bicard 22- will increase acetate in TPN. Other Lytes WNL. Blood sugars in 110's to 140's. Per injection press operator recs will increase Dextrose from 18% to 22%. Will increase insulin from 30 units to 45 units/24hr bag. No other changes. Shara Benavidez MS CCC-FACT CHECKER - 01/20/2015 10:05 AM PDTFormatting of this note might be different f rom the original. Therapy Progress Note by Shara Davila MS CCC-FACT CHECKER at 01/20/15 1005 Author: Shara Davila MS CCC-FACT CHECKER Service: (none) Author Type: Speech and Language Pa thologist Filed: 01/20/15 1013 Date of Service: 01/20/15 1005 Status: Signed Vice President Global Digital Marketing: Shara Davila MS CCC-FACT CHECKER (Speech and Language Pathologist) 01/20/15 1005 FACT CHECKER Last Visit FACT CHECKER Received On 01/20/15 Requires FACT CHECKER Follow Up Unavailable (Intubated- plan for extubation in the afternoon.) onversio n Transaction, Provider Unknown - 01/20/2015 9:19 AM PDTFormatting of this note might be di fferent from the original. Case Management by BRIA Lima at 01/20/15918 Author: BRIA Lima Service: (none) Author Type: Music Artist Filed: 01/20/15929 Date of Service: 01/20/15918 Status: Addendum Vice President Global Digital Marketing: BRIA Lima (Music Artist) Related Notes: Original Note by BRIA Lima (Music Artist) filed at 01/20/15923 Attended morning rounds. Pt [...] Service: Cardiology Author Type: Physician Filed: 01/20/15 7215 Date of Service: 01/20/15838 Status: Signed Vice President Global Digital Marketing: Mario Crawford MD (Physician) [facility] Service: Cardiology Progress Note Hospital Day: LOS: 17 days Post-Op Day: 3 Days Post-Op SUBJECTIVE Patient Summary: 64 y.o. male with no previous cardiac history. He was admitted to [facility] for elective surgery on 01/03/15 for [...] - FLEXIBLE; Surgeon: Saleem Shore MD; Location: [facility]; Service: General; Laterality: N/A; Total hip arthroplasty Bilateral Knee surgery Right Flexible sigmoidoscopy N/A 12/25/2014 Procedure: SIGMOIDOSCOPY - FLEXIBLE; Surgeon: Saleem Shore MD; Location: [facility]; Service: General; Laterality: N/A; Robotic assisted laparoscopic colon resection - coloanal N/A 01/03/2015 Procedure: ROBOTIC ASSISTED LAPAROSCOPIC COLON RESECTION - COLOANAL; Surgeon: Saleem chauhan MD; Location: [facility]; Service: General; Laterality: N/A; coloanal pull thr ough Flexible sigmoidoscopy N/A 01/03/2015 Procedure: SIGMOIDOSCOPY - FLEXIBLE; Surgeon: Saleem Shore MD; Location: [facility]; Service: General; Laterality: N/A; Sigmoidoscopy - rigid N/A 01/03/2015 Procedure: SIGMOIDOSCOPY - RIGID; Surgeon: Saleem Shore MD; Location: [facility] ; Service: General; Laterality: N/A; Flexible bronchoscopy N/A 01/17/2015 Procedure: BRONCHOSCOPY - FLEXIBLE; Surgeon: Lui Lindsey MD; Location: [facility]; Service: Windows Vmware Engineer; Laterality: N/A; Allergies Allergen Reactions Seasonal Allergies [Other-Environmental] Itching Scheduled Medications ampicillin-sulbactam 3 g Intravenous Q6H digoxin 0.25 mg Intravenous Daily fat emulsion 250 mL Intravenous Daily furosemide 40 mg Intravenous BID heparin (porcine) 5000 unit/0.5mL 5,000 Units Subcutaneous Q8H insulin aspart 0-16 Units Subcutaneous 4 times per day levofloxacin 500 mg Intravenous Q24H lidocaine buffered 1% 0.5 mL Intradermal Once maifinkp-tnkjdtctox-mxqjbmwuy Ophthalmic 4 times per day nystatin 5 mL Oral 4x Daily pantoprazole 40 mg Intravenous QAM AC Continuous Infusions dexmedetomidine in NS 1 mcg/kg/hr (01/20/15 0786) fentaNYL in NS 5 mcg/mL 150 mcg/hr (01/20/15 5175) norepinephrine in D5W 64 mcg/mL 4 mcg/min (01/17/15 8898) TPN ADULT 75 mL/hr at 01/19/15 1543 PRN Medications acetaminophen, albuterol, dextrose, dextrose, HYDROmorphone [...] ect that he has had an acute DC. The inferior infarct cited on his EKG [...] Progress Notes by JESSICA Colin at 01/20/15 3876 Author: JESSICA Colin Service: Windows Vmware Engineer Author Type: Medical Student Filed: 01/20/15 0388 Date of Service: 01/20/15 4415 Status: Attested Vice President Global Digital Marketing: JESSICA Colin (Medical Student) Cosigner: Stalin Finney MD at 01/20/15 3884 Attestation signed by Stalin Finney MD at 01/20/15 0696 I have seen and examined the patient and discussed the findings and overall plan with JESSICA Salvador. I agree with the above note. *Please bill 35 minutes of critical care time spent evaluating the patient, reviewing the d jose guadalupe and formulating a plan exclusive of all other procedures. Stalin Finney MD Pulmonary and Critical Care Medicine [facility] 01/20/15 4:05PM [facility] Service: Windows Vmware Engineer Progress Note Jose Eaton 64 y.o. Hospital Day: LOS: 17 days Post-Op Day: 3 Days Post-Op Consulting Physicians Treatment Team: Consulting Physician: Amy Simons MD Consulting Physician: Mario Crawford MD Admitting Provider: Saleem Shore MD SUBJECTIVE Patient Summary: Pt is a 64 y/o Czech speaking M with past medical history significant [...] lidocaine buffered 1% 0.5 mL Intradermal Once qpczpmzl-zdbwibxqfl-fsnxobfdr Ophthalmic 4 times per day nystatin 5 mL Oral 4x Daily pantoprazole 40 mg Intravenous QAM AC CONTINUOUS INFUSIONS dexmedetomidine in NS 1 mcg/kg/hr (01/20/15 0780) fentaNYL in NS 5 mcg/mL 150 mcg/hr (01/20/15 6275) norepinephrine in D5W 64 mcg/mL 4 mcg/min (01/17/15 7326) TPN ADULT 75 mL/hr at 01/19/15 8430 OBJECTIVE VITAL SIGNS Temp: [98.4 F (36.9 [...] Jan 20 2015 4:36AM Referring Provider Line: [phone] ID: [id number] Ct Chest Without Contrast 01/19/2015 [...] 01/20/15716 Date of Service: 01/20/15699 Status: Signed Vice President Global Digital Marketing: Rahul Valles DO (Physician) [facility] Service: Infectious Disease Progress Note Hospital Day: [...] lidocaine buffered 1% 0.5 mL Intradermal Once ehfpehfb-twiwgwlenm-yqdwtctor Ophthalmic 4 times per day nystatin 5 mL Oral 4x Daily pantoprazole 40 mg Intravenous QAM AC Continuous Infusions dexmedetomidine in NS 1 mcg/kg/hr (01/20/15 0130) fentaNYL in NS 5 mcg/mL 150 mcg/hr (01/20/15 0415) norepinephrine in D5W 64 mcg/mL 4 mcg/min (01/17/15 4248) TPN ADULT 75 mL/hr at 01/19/15 2353 [...] Date of Service: 01/19/15 114 Status: Signed Vice President Global Digital Marketing: Saleem Shore MD (Physician) [facility] Service: Colon & Rectal Surgery Progress Note [...] per day levofloxacin 500 mg Intravenous Q24H ltqiwlkq-lafybwhulm-myjlvbldq Ophthalmic 4 times per day nystatin 5 [...] Saleem Shore MD 01/19/2015 innea Barraza, MS CCC-FACT CHECKER - 01/19/2015 10:21 AM PDTFormatting of this note might be different from the o riginal. Therapy Progress Note by Linnea Barraza MA CCC-FACT CHECKER at 01/19/15 1021 Author: Linnea Barraza MA CCC-FACT CHECKER Service: (none) Author Type: Speech and Language Pathologist Filed: 01/19/15 1021 Date of Service: 01/19/15 1021 Status: Signed Vice President Global Digital Marketing: Linnea Barraza MA CCC-FACT CHECKER (Speech and Language Pathologist) 01/19/15 1020 FACT CHECKER Last Visit FACT CHECKER Received On 01/19/15 Requires FACT CHECKER Follow Up On hold (pt reintubated) unanan, Stalin Allen MD - 01/19/2015 10:10 AM PDTFormatting of this note might be differen t from the original. Progress Notes by Stalin Finney MD at 01/19/15 1010 Author: Stalin Finney MD Service: Windows Vmware Engineer Author Type: Physician Filed: 01/19/15 1214 Date of Service: 01/19/15 1010 Status: Signed Vice President Global Digital Marketing: Stalin Finney MD (Physician) [facility] Service: Windows Vmware Engineer Progress Note Jose Eaton 64 y.o. Hospital Day: LOS: 16 days Post-Op Day: 14 Days Post-Op Consulting Physicians Treatment Team: Consulting Physician: Amy Simons MD Consulting Physician: Mario Crawford MD Admitting Provider: Saleem Shore MD SUBJECTIVE Patient Summary: Pt is a 64 y/o Czech speaking M with past medical history significant [...] per day levofloxacin 500 mg Intravenous Q24H ausnkxuj-wxdwflehyl-tvikoqpyq Ophthalmic 4 times per day nystatin 5 [...] Jan 12 2015 6:44AM Referring Provider Line: [phone] ID: [id number] Echo Cardiac Adult Complete 01/12/2015 1. Overall left ventricular systolic function is moderately impaired with, an EF between 35 - 40 %. 2. Pseudonormal LV diastolic filling pattern, consistent with elevated LA pressure and moderate dysfunction (Grade II). 3. The right ventricle is normal in size. 4. The right ventricular systolic function is impaired. 5. Moderate mitral regurgitation is present. 6. Avax-ma-ybmcvjhf tricuspid regurgitation present. 7. There is mild [...] by Rahul Valles DO at 01/19/15699 Author: Rahul Valles DO Service: (none) Author Type: Physician Filed: 01/19/1528 Date of Service: 01/19/15699 Status: Signed Vice President Global Digital Marketing: Rahul Valles DO (Physician) [facility] Service: Infectious Disease Progress Note Hospital Day: [...] per day levofloxacin 500 mg Intravenous Q24H ypmvuuel-wmfqpcooie-ghmiconfz Ophthalmic 4 times per day nystatin 5 [...] similar results noted on previous sputum culture [facility] only grew Escherichia coli. Medical imaging: [...] 01/19/15647 Date of Service: 01/19/15647 Status: Signed Vice President Global Digital Marketing: Basilia Ortiz RPH (Pharmacist) TPN notes day [...] Notes by Stalin Finney MD at 01/18/15 4589 Author: Stalin Finney MD Service: Windows Vmware Engineer Author Type: Physician Filed: 01/18/15 2862 Date of Service: 01/18/15 5066 Status: Signed Vice President Global Digital Marketing: Stalin Finney MD (Physician) [facility] Service: Windows Vmware Engineer Progress Note Jose Eaton 64 y.o. Hospital Day: LOS: 15 days Post-Op Day: 14 Days Post-Op Consulting Physicians Treatment Team: Consulting Physician: Amy Simons MD Consulting Physician: Mario Crawford MD Admitting Provider: Saleem Shore MD SUBJECTIVE Patient Summary: Pt is a 64 y/o Czech speaking M with past medical history significant [...] per day levofloxacin 500 mg Intravenous Q24H fvpsregt-ryevnocztf-ppolnstrf Ophthalmic 4 times per day nystatin 5 [...] Jan 12 2015 6:44AM Referring Provider Line: [phone] ID: [id number] Echo Cardiac Adult Complete 01/12/2015 1. Overall left ventricular systolic function is moderately impaired with, an EF between 35 - 40 %. 2. Pseudonormal LV diastolic filling pattern, consistent with elevated LA pressure and moderate dysfunction (Grade II). 3. The right ventricle is normal in size. 4. The right ventricular systolic function is impaired. 5. Moderate mitral regurgitation is present. 6. Aomy-gr-iylryneq tricuspid regurgitation present. 7. There is mild [...] 01/18/151214 Date of Service: 01/18/151212 Status: Signed Vice President Global Digital Marketing: Saleem Shore MD (Physician) [facility] Service: Colon & Rectal Surgery Progress Note [...] per day levofloxacin 500 mg Intravenous Q24H vcezuqxr-lglnqvekzw-jwmhiagul Ophthalmic 4 times per day nystatin 5 [...] Rehab Author Type: Physical Therapist Filed: 01/18/15 8236 Date of Service: 01/18/15821 Status: Signed Vice President Global Digital Marketing: Nba Strong PT (Physical Therapist) 01/18/15821 PT [...] 01/18/15705 Date of Service: 01/18/15705 Status: Signed Vice President Global Digital Marketing: Basilia Ortiz RPH (Pharmacist) TPN day 8: TPN standard formula at 75 mL/hr starting at 01/17 2100 Diet general Dysphagia consistencies: Dysphagia Pureed, Thin, Other (See Comments); House diet:: Yes: General starting at 01/[address] Shoer note dated 01/17 @ 1941 stated "keep [...] 01/18/15716 Date of Service: 01/18/15705 Status: Signed Vice President Global Digital Marketing: Rahul Valles DO (Physician) [facility] Service: Infectious Disease Progress Note Hospital Day: [...] 1% 5 mL Intradermal STAT - Now gggipzqv-vinzquhxcf-ifvkjuktz Ophthalmic 4 times per day nystatin 5 [...] 01/17/151946 Date of Service: 01/17/151940 Status: Signed Vice President Global Digital Marketing: Saleem Shore MD (Physician) [facility] Service: Colon & Rectal Surgery Progress Note [...] Code Saleem Shore MD 01/17/2015 llsharmaine, ANGEL Torre P - 01/17/2015 6:00 PM PDT Progress Notes by Jcarlos Lawson RN at 01/17/15 1800 Author: Jcarlos Lawson RN Service: (none) Author Type: Registered Nurse Filed: 01/17/15 8040 Date of Service: 01/17/15 1800 Status: Signed Vice President Global Digital Marketing: Jcarlos Lawson RN (Registered Nurse) Roro david driver helper assisted patient with reposition onversion Transacti on, Provider Unknown - 01/17/2015 5:54 PM PDTFormatting of this note might be different fro m the original. Progress Notes by Dwight Godoy at 01/17/151753 Author: Dwight Godoy Service: (none) Author Type: Filed: 01/17/151753 Date of Service: 01/17/151753 Status: Signed Vice President Global Digital Marketing: Dwight Godoy () Attempted visit. Pt intubated and sleeping. Chaplain Sancho onver alex Transaction, Provider Unknown - 01/17/2015 3:54 PM PDT Progress Notes by Asya Chauhan RD at 01/17/151553 Author: Asya Chauhan RD Service: (none) Author Type: Registered Dietitian Filed: 01/17/151554 Date of Service: 01/17/151553 Status: Signed Vice President Global Digital Marketing: Asya Chauhan RD (Registered Dietitian) 01/17/15 5762 Subjective Timepoint Follow up Pt c/o Pt [...] Follow up date 01/20/15 Elisa Allen MS CCC-FACT CHECKER - 01/17/2015 12:15 PM PDTFormatting of this note might be different fr om the original. Therapy Progress Note by Elisa Lawson MS CCC-FACT CHECKER at 01/17/15 1215 Author: Elisa Lawson MS CCC-FACT CHECKER Service: (none) Author Type: Speech Therapist Filed: 01/17/15 0828 Date of Service: 01/17/151214 Status: Signed Vice President Global Digital Marketing: Elisa Lawson MS CCC-FACT CHECKER (Speech Therapist) 01/17/15 1215 Swallowing Assessment Eval [...] monitoring;Patient/Family education; Assessment for upgrade Dysphagia Goals Cardroom Hand Goals Safe/efficient oral intake Pt will have safe/efficient oral intake Thin liquids;New/revised goal Short Term Goals Tolerate liquid consistency Pt will tolerate tolerate liquid consistency Thin liquids;With max supervision;New/revised goal in-house hand paster unavailable and computer hand paster unavailable, family used Tj, John Garcia MD - 01/17/2015 11:50 AM PDTFormatting of this note might be different from the chantella l. Progress Notes by Mario Crawford MD at 01/17/15 1150 Author: Mario Crawford MD Service: Cardiology Author Type: Physician Filed: 01/17/15 1203 Date of Service: 01/17/15 1150 Status: Signed Vice President Global Digital Marketing: Mario Crawford MD (Physician) [facility] Service: Cardiology Progress Note Hospital Day: LOS: 14 days Post-Op Day: 14 Days Post-Op SUBJECTIVE Patient Summary: 64 y.o. male with no previous cardiac history. He was admitted to [facility] for elective surgery on 01/03/15 for [...] - FLEXIBLE; Surgeon: Saleem Shore MD; Location: [facility]; Service: General; Laterality: N/A; Total hip arthroplasty Bilateral Knee surgery Right Flexible sigmoidoscopy N/A 12/25/2014 Procedure: SIGMOIDOSCOPY - FLEXIBLE; Surgeon: Saleem Shore MD; Location: [facility]; Service: General; Laterality: N/A; Robotic assisted laparoscopic colon resection - coloanal N/A 01/03/2015 Procedure: ROBOTIC ASSISTED LAPAROSCOPIC COLON RESECTION - COLOANAL; Surgeon: Saleem chauhan MD; Location: [facility]; Service: General; Laterality: N/A; coloanal pull thr ough Flexible sigmoidoscopy N/A 01/03/2015 Procedure: SIGMOIDOSCOPY - FLEXIBLE; Surgeon: Saleem Shore MD; Location: [facility]; Service: General; Laterality: N/A; Sigmoidoscopy - rigid N/A 01/03/2015 Procedure: SIGMOIDOSCOPY - RIGID; Surgeon: Saleem Shore MD; Location: [facility] ; Service: General; Laterality: [...] ect that he has had an acute DC. The inferior infarct cited on his EKG [...] Status: Full Code Bo Lopez D.O., of [facility] will be available over the [...] Date of Service: 01/17/15 105 Status: Signed Vice President Global Digital Marketing: Choco Hernandez RPH (Pharmacist) TPN day 7, [...] Date of Service: 01/17/15 1000 Status: Signed Vice President Global Digital Marketing: Jcarlos Lawson RN (Registered Nurse) With patient in Nuc. Med department for HIDA scan. VSS onversion Transacti on, Provider Unknown - 01/17/2015 7:43 AM PDTFormatting of this note might be different fro m the original. Progress Notes by Rubia Regan, MS-4 at 01/17/15 0743 Author: Rubia Regan, MS-4 Service: Windows Vmware Engineer Author Type: Medical Student Filed: 01/17/15 1141 Date of Service: 01/17/15742 Status: Attested Vice President Global Digital Marketing: Rubia Regan, MS-4 (Medical Student) Cosigner: Niesha [...] and formulating a plan exclusive of procedures. [facility] Service: Windows Vmware Engineer Progress Note Jose Eaton 64 y.o. Hospital Day: LOS: 14 days Post-Op Day: 14 Days Post-Op Consulting Physicians Treatment Team: Consulting Physician: Amy Simons MD Consulting Physician: Mario Crawford MD Admitting Provider: Saleem Shore MD SUBJECTIVE Patient Summary: Pt is a 64 y/o Czech speaking M with past medical history significant [...] Intake/Output Summary (Last 24 hours) at 01/17/15 0762 Last data filed at 01/17/15 0535 Gross [...] Jan 12 2015 6:44AM Referring Provider Line: [phone] ID: [id number] Echo Cardiac Adult Complete 01/12/2015 1. Overall left ventricular systolic function is moderately impaired with, an EF between 35 - 40 %. 2. Pseudonormal LV diastolic filling pattern, consistent with elevated LA pressure and moderate dysfunction (Grade II). 3. The right ventricle is normal in size. 4. The right ventricular systolic function is impaired. 5. Moderate mitral regurgitation is present. 6. Fnmp-en-sejoowii tricuspid regurgitation present. 7. There is mild [...] full dose Lovenox pending HIDA scan results. [place] Weigher Dr. Crawford consulted, following. Recommends avoiding dobutamine [...] Status: Full Code Rubia Jass, MS-4 01/17/2015 Electronically signed by [facility] Transaction, Provider at 11/19/2018 5:46 PM Rahul Larios DO - 01/17/2015 6:41 AM PDTFormatting of this note might be different from the randolph ginal. Progress Notes by Rahul Valles DO at 01/17/15640 Author: Rahul Valles DO Service: (none) Author Type: Physician Filed: 01/17/15 0702 Date of Service: 01/17/15640 Status: Signed Vice President Global Digital Marketing: Rahul Valles DO (Physician) [facility] Service: Infectious Disease Progress Note Hospital Day: [...] Therapy Progress Note by Kitty Peng MA CCC-FACT CHECKER at 01/16/151531 Author: Kitty Peng MA CCC-FACT CHECKER Service: (none) Author Type: Speech and Language Patholo gist Filed: 01/16/151531 Date of Service: 01/16/151531 Status: Signed Vice President Global Digital Marketing: Kitty Peng MA CCC-FACT CHECKER (Speech and Language Pathologist) 01/16/15 1532 FACT CHECKER Last Visit FACT CHECKER Received On 01/16/15 Requires FACT CHECKER Follow Up On hold Per RN pt not appropriate for swallow at this time. ST to check back tomorrow. Aubrie Fitzgerald MD - 01/16/2015 2:43 PM PDT Progress Notes by Aubrie Linton MD at 01/16/15 1443 Author: Aubrie Linton MD Service: Infectious Disease Author Type: Physician Filed: 01/16/15 191 Date of Service: 01/16/15 1443 Status: Signed Vice President Global Digital Marketing: Aubrie Linton MD (Physician) [facility] Service: Infectious Disease Progress Note Hospital Day: [...] POSITIVE COCCIP GRAM STAIN Testing performed at [facility], [address], [place] [address] CULTURE PENDINGP Resulting Agency [facility] Specimen Collected: 01/12/15 7:55 AM Impression 1. Stable right perihilar and basilar airspace disease. 2. Mild stable left basilar opacity to likely represent subsegmental atelectasis. X-ray chest 1 view [[id number]] PROBLEM LIST Principal Problem: Atrial fibrillation with [...] 1446 Date of Service: 01/16/157 Status: Signed Vice President Global Digital Marketing: Kelli Belle PT (Physical Therapist) 01/16/15 1417 [...] Date of Service: 01/16/15 1258 Status: Signed Vice President Global Digital Marketing: Saleem Shore MD (Physician) [facility] Service: Colon & Rectal Surgery Progress Note [...] Notes by Choco Hernandez RPH at 01/16/15 1913 Author: Choco Hernandez RPH Service: Pharmacy Author Type: Pharmacist Filed: 01/16/15 5136 Date of Service: 01/16/15 4499 Status: Signed Vice President Global Digital Marketing: Choco Hernandez RPH (Pharmacist) TPN day 6, Lytes WNL, Patient is still on endotool insulin drip. No changes in TPN formula. Patient is at goal of AA 6% + D18% at 75ml/hr. onver alex Transaction, Provider Unknown - 01/16/2015 10:27 AM PDT Case Management by BRIA Lima at 01/16/15 1027 Author: BRIA Lima Service: (none) Author Type: Music Artist Filed: 01/16/15 1034 Date of Service: 01/16/15 1027 Status: Signed Vice President Global Digital Marketing: BRIA Lima (Music Artist) Attended morning rounds. Pt was extubated. Brother and friend are in pt's room. Cardiolog y to consult. onver alex Transaction, Provider Unknown - 01/16/2015 8:35 AM PDT Progress Notes by JESSICA Colin at 01/16/1515 Author: JESSICA Colin Service: Windows Vmware Engineer Author Type: Medical Student Filed: 01/16/15 6877 Date of Service: 01/16/15834 Status: Attested Vice President Global Digital Marketing: JESSICA Colin (Medical Student) Cosigner: Niesha Duarte MD at 01/16/151756 Attestation signed by Niesha Duarte MD at 01/16/151756 Plan of care discussed with Rubia. I agree with the physical examination and management as documented. Please bill 40 minutes of critical care time spent evaluating the patient, reviewing the da ta and formulating a plan exclusive of procedures. [facility] Service: Windows Vmware Engineer Progress Note Jose Eaton 64 [facility] Hospital [...] Jan 12 2015 6:44AM Referring Provider Line: [phone] ID: [id number] Echo Cardiac Adult Complete 01/12/2015 1. Overall left ventricular systolic function is moderately impaired with, an EF between 35 - 40 %. 2. Pseudonormal LV diastolic filling pattern, consistent with elevated LA pressure and moderate dysfunction (Grade II). 3. The right ventricle is normal in size. 4. The right ventricular systolic function is impaired. 5. Moderate mitral regurgitation is present. 6. Truz-am-mqcvgmwa tricuspid regurgitation present. 7. There is mild [...] 0711 Date of Service: 01/15/151999 Status: Signed Vice President Global Digital Marketing: Francisca Caraballo RN (Registered Nurse) Report from day RN, POC discussed, armband verified with MAR, allergies and code status not ed. Pt sedated, vented, will open eyes to voice and follow commands weakly on all four extre mities. Czech primary language. Pt eyes are red and [...] MD about hemodynamics, no new orders received. [id number] Pt continues to moan and want more [...] 01/15/151705 Date of Service: 01/15/151703 Status: Signed Vice President Global Digital Marketing: Saleem Shore MD (Physician) [facility] Service: Colon & Rectal Surgery Progress Note [...] atin, nystatin, [DISCONTINUED] ondansetron OR ondansetron, pancrelipase (Yhm-Jsyi-Vypv) 10,000 units, petrolatum, polyethylene glycol, potassium chloride [...] Date of Service: 01/15/15 1250 Status: Signed Vice President Global Digital Marketing: Kelli Belle PT (Physical Therapist) 01/15/15 1250 PT Last Visit PT Received On 01/15/15 Requires PT Follow Up On hold (Pt remains intubated/sedated) Aubrie Fitzgerald MD - 01/15/2015 12:40 PM PDT Progress Notes by Aubrie Linton MD at 01/15/15 1240 Author: Aubrie Linton MD Service: Infectious Disease Author Type: Physician Filed: 01/15/15 1807 Date of Service: 01/15/151239 Status: Signed Vice President Global Digital Marketing: Aubrie Linton MD (Physician) [facility] Service: Infectious Disease Progress Note Hospital Day: [...] POSITIVE COCCIP GRAM STAIN Testing performed at [facility], [address], [place] [address] CULTURE PENDINGP Resulting Agency [facility] Specimen Collected: 01/12/15 7:55 AM Impression 1. Stable right perihilar and basilar airspace disease. 2. Mild stable left basilar opacity to likely represent subsegmental atelectasis. X-ray chest 1 view [[id number]] PROBLEM LIST Principal Problem: Atrial fibrillation with [...] (none) Author Type: Registered Dietitian Filed: 01/15/15 9156 Date of Service: 01/15/15 1239 Status: Signed Vice President Global Digital Marketing: Anna Suresh RD, CD (Registered Dietitian) 01/15/15 1224 Subjective Timepoint Follow up (adjust TPN, start [...] up date 01/18/[address], CD, [facility] 01/15/2015 onver alex Transaction, Provider Unknown - 01/15/2015 12:22 PM PDT Progress Notes by Choco Hernandez RPH at 01/15/151221 Author: Choco Hernandez RPH Service: Pharmacy Author Type: Pharmacist Filed: 01/15/151221 Date of Service: 01/15/151221 Status: Signed Vice President Global Digital Marketing: Choco Hernandez RPH (Pharmacist) TPN day 5, [...] Author: BRIA Lima Service: (none) Author Type: Music Artist Filed: 01/15/15919 Date of Service: 01/15/15913 Status: Signed Vice President Global Digital Marketing: BRIA Lima (Music Artist) Attended morning rounds. Pt remains vented. Had illeostomy, RAT due to dehydration, POD 11, failed most recent SBT. On TPN. Likely pt will need SNF. Has Medicare and Medicaid. Lives in [place] so likely will want [facility] if proximity to family is important. I will make initial referral though it is u nderstood that pt is a long ways from transferring out of the hospital. [place]: [phone] Choice of SNF needs to be discussed with family/pt. onver alex Transaction, Provider Unknown - 01/14/2015 12:53 PM PDT Nurse Progress Note by Carmen Butler RN at 01/14/15 7574 Author: Carmen Butler RN Service: Wound/Ostomy Care Author Type: Registered Nurse Filed: 01/14/15 3729 Date of Service: 01/14/15 453 Status: Signed Vice President Global Digital Marketing: Carmen Butler RN (Registered Nurse) Wound care [...] 1139 Date of Service: 01/14/151128 Status: Signed Vice President Global Digital Marketing: Saleem Shore MD (Physician) [facility] Service: Colon & Rectal Surgery Progress Note [...] 01/14/151115 Date of Service: 01/14/151115 Status: Signed Vice President Global Digital Marketing: Choco Hernandez RPH (Pharmacist) TPN day 4, [...] 1017 Date of Service: 01/14/15929 Status: Signed Vice President Global Digital Marketing: Aubrie Linton MD (Physician) [facility] Service: Infectious Disease Progress Note Hospital Day: [...] at 08:15 AM in Hematology and Oncology ([facility] NURSE) 01/12/15 7:55 AM Specimen Description SPUTUMP GRAM STAIN GREATER THAN 10 WBCS/LPFP GRAM STAIN LESS THAN 10 SEC/LPFP GRAM STAIN 1+P GRAM STAIN GRAM POSITIVE COCCIP GRAM STAIN Testing performed at [facility], [address], [place] [address] CULTURE PENDINGP Resulting Agency [facility] Specimen Collected: 01/12/15 7:55 AM Impression 1. Stable right perihilar and basilar airspace disease. 2. Mild stable left basilar opacity to likely represent subsegmental atelectasis. X-ray chest 1 view [[id number]] PROBLEM LIST Principal Problem: Atrial fibrillation with [...] 01/14/151906 Date of Service: 01/14/15899 Status: Signed Vice President Global Digital Marketing: Nba Strong PT (Physical Therapist) 01/14/15899 PT Last Visit PT Received On 01/14/15 (remains intubated/sedated) Requires PT Follow Up On hold onver alex Transaction, Provider Unknown - 01/14/2015 7:38 AM PDT Therapy Progress Note by Celine Farnsworth OTR/Ada at 01/14/15 0738 Author: GABRIELLA Iverson/Ada Service: (none) Author Type: Occupational Therapist Filed: 01/14/15 0740 Date of Service: 01/14/15737 Status: Signed Vice President Global Digital Marketing: GABRIELLA Iverson/Ada (Occupational Therapist) 01/14/15737 OT Last [...] at 01/14/15225 Author: Dino Russo MD Service: Windows Vmware Engineer Author Type: Physician Filed: 01/15/15 0730 Date of Service: 01/14/15225 Status: Addendum Vice President Global Digital Marketing: Dino Russo MD (Physician) Related Notes: Original Note by Dino Russo MD (Physician) filed at 01/15/15 0554 [facility] Service: Windows Vmware Engineer Progress Note [facility] 64 [facility] [...] 1129 Date of Service: 01/13/151945 Status: Signed Vice President Global Digital Marketing: Saleem Shore MD (Physician) [facility] Service: Colon & Rectal Surgery Progress Note [...] Progress Note by IRAM Iverson at 01/13/15 2395 Author: IRAM Iverson Service: (none) Author Type: Occupational Therapist Filed: 01/13/15 3011 Date of Service: 01/13/151554 Status: Signed Vice President Global Digital Marketing: IRAM Iverson (Occupational Therapist) 01/13/15 7744 OT Last Visit OT Received On 01/13/15 [...] 01/13/151419 Date of Service: 01/13/151419 Status: Signed Vice President Global Digital Marketing: Anna Suresh RD, KENISHA (Registered Dietitian) 01/13/15 [...] up date 01/16/[address], CD, [facility] 01/13/2015 onver alex Transaction, Provider Unknown - 01/13/2015 1:41 PM PDT Case Management by BRIA Lima at 01/13/15 6556 Author: BRIA Lima Service: (none) Author Type: Music Artist Filed: 01/13/15 0626 Date of Service: 01/13/151340 Status: Signed Vice President Global Digital Marketing: BRIA Lima (Music Artist) Attended care conference with Dr. Vega, hand paster, pt's brother and pt's friend. Dr. Vega [...] a few days . Brother: Gustabo Eaton [phone] (c) [phone] (w) Friend: Hector Stone [phone] line Liu RPH - 01/13/2015 12:38 PM PDTFormatting of this note might be different from t he original. Progress Notes by Aline Cabrales RPH at 01/13/15 5439 Author: Aline Cabrales RPH Service: (none) Author Type: Pharmacist Filed: 01/13/15 1238 Date of Service: 01/13/15 1238 Status: Signed Vice President Global Digital Marketing: Aline Cabrales RPH (Pharmacist) Clinical Pharmacy Note - TPN Blood glucose running high overnight; patient changed to insulin Endotool drip. Will remove insulin from TPN at this time. Customer Engagement Representative suggested formula change to decrease daily dextrose. [...] Author: BRIA Lima Service: (none) Author Type: Music Artist Filed: 01/13/15 1049 Date of Service: 01/13/15 1031 Status: Addendum Vice President Global Digital Marketing: BRIA Lima (Music Artist) Related Notes: Original Note by BRIA Lima (Music Artist) filed at 01/13/15 1034 Attended morning rounds. Pt was transferred to the ICU after a RAT was called on the acute care floor. Pt is now vented. Per family dinner service specialist is portuguese speaking only. Originally pt was planned to go home with [facility]. SBT to occur today. CM to follow. Arranged for care conference at 1300 today. Transfer Table Operator notified and hand paster called. onver alex Transaction, Provider Unknown - 01/13/2015 8:11 AM PDT Therapy Progress Note by Nba Strong PT at 01/13/15 0811 Author: Nba Strong PT Service: Physical Medicine and Rehab Author Type: Physical Therapist Filed: 01/13/15 1206 Date of Service: 01/13/15 0811 Status: Signed Vice President Global Digital Marketing: Nba Strong PT (Physical Therapist) 01/13/15 0811 PT Last Visit PT Received On 01/13/15 Requires PT Follow Up On hold (remains a hold) ubrie Linton MD - 01/13/2015 8:06 AM PDT Progress Notes by Aubrie Linton MD at 01/13/15805 Author: Aubrie Linton MD Service: Infectious Disease Author Type: Physician Filed: 01/13/15 1037 Date of Service: 01/13/15805 Status: Signed Vice President Global Digital Marketing: Aubrie Linton MD (Physician) [facility] Service: Infectious Disease Progress Note Hospital Day: [...] at 08:15 AM in Hematology and Oncology ([facility] NURSE) 01/12/15 7:55 AM Specimen Description SPUTUMP GRAM STAIN GREATER THAN 10 WBCS/LPFP GRAM STAIN LESS THAN 10 SEC/LPFP GRAM STAIN 1+P GRAM STAIN GRAM POSITIVE COCCIP GRAM STAIN Testing performed at [facility], [address], [place] [address] CULTURE PENDINGP Resulting Agency [facility] Specimen Collected: 01/12/15 7:55 AM Impression 1. Stable right perihilar and basilar airspace disease. 2. Mild stable left basilar opacity to likely represent subsegmental atelectasis. X-ray chest 1 view [[id number]] PROBLEM LIST Principal Problem: Atrial fibrillation with [...] 01/13/15404 Date of Service: 01/13/15404 Status: Signed Vice President Global Digital Marketing: Suad Alvarez RPH (Pharmacist) Clinical Pharmacy Note: [...] at 01/13/15249 Author: Dino Russo MD Service: Windows Vmware Engineer Author Type: Physician Filed: 01/13/152131 Date of Service: 01/13/15249 Status: Signed Vice President Global Digital Marketing: Dino Russo MD (Physician) [facility] Service: Windows Vmware Engineer Progress Note [facility] 64 [facility] [...] 01/12/151737 Date of Service: 01/12/151737 Status: Signed Vice President Global Digital Marketing: Anna Suresh RD, CD (Registered Dietitian) 01/12/15 4349 Subjective Timepoint Follow up (routine ICU admit [...] today. Skin Stoma is reportedly red/denuded per supervisor erection shop but skin is otherwise intact with no [...] Type (!) Moderate Anna Suresh RD, CD, [facility] 01/12/2015 onver alex Transaction, Provider Unknown - 01/12/2015 11:08 AM PDT Progress Notes by Yasmin Bethea RPH at 01/12/15 110 Author: Yasmin Bethea RPH Service: (none) Author Type: Pharmacist Filed: 01/12/151107 Date of Service: 01/12/151107 Status: Signed Vice President Global Digital Marketing: Yasmin Bethea RPH (Pharmacist) Day 1 Vanco [...] Date of Service: 01/12/15 104 Status: Signed Vice President Global Digital Marketing: Saleem Shore MD (Physician) [facility] Service: Colon & Rectal Surgery Progress Note [...] 01/12/15832 Date of Service: 01/12/15832 Status: Signed Vice President Global Digital Marketing: GABRIELLA Rico/Ada (Occupational Therapist) 01/12/15 0832 OT [...] Date of Service: 01/12/15 0800 Status: Signed Vice President Global Digital Marketing: Roro Sterling, PT (Physical Therapist) 01/12/15 0800 [...] 01/12/15751 Date of Service: 01/12/15751 Status: Signed Vice President Global Digital Marketing: Ludivina Eckert RPH (Pharmacist) Clinical Pharmacy Note: [...] at 01/12/15338 Author: Dino Russo MD Service: Windows Vmware Engineer Author Type: Physician Filed: 01/12/15 0515 Date of Service: 01/12/15338 Status: Signed Vice President Global Digital Marketing: Dino Russo MD (Physician) Sepsis protocol 6 hour note The lactic acid is trending down, He is on levophed 18mcg/min. ivc is full with no respiratory variation. onversion Transaction , Provider Unknown - 01/12/2015 1:40 AM PDT Progress Notes by Suad Alvarez RPH at 01/12/15139 Author: Suad Alvarez RPH Service: (none) Author Type: Pharmacist Filed: 01/12/15139 Date of Service: 01/12/15139 Status: Signed Vice President Global Digital Marketing: Suad Alvarez RPH (Pharmacist) Clinical Pharmacy Note: [...] 01/12/15126 Date of Service: 01/12/15126 Status: Signed Vice President Global Digital Marketing: Suad Alvarez RPH (Pharmacist) Clinical Pharmacy Note: Extended Interval Zosyn Dosing CREATININE: 1.8 mg/dL ABNORMAL (01/11/152007) Estimated creatinine clearance - 36.8 mL/min NEUTROPHILS ABS Date Value Ref Range Status 01/11/2015 3.36 1.90 - 7.40 K/uL Final Comment: Testing performed at [facility], [address] [place] [address] Will begin with loading dose of 4.5 [...] at 01/12/1535 Author: Dino Russo MD Service: Windows Vmware Engineer Author Type: Physician Filed: 01/12/15 0053 Date of Service: 01/12/1535 Status: Signed Vice President Global Digital Marketing: Dino Russo MD (Physician) [facility] Service: Windows Vmware Engineer Progress Note [facility] 64 [facility] [...] 01/12/1531 Date of Service: 01/12/1530 Status: Signed Vice President Global Digital Marketing: Suad Alvarez RPH (Pharmacist) Patient on TPN: Electrolyte replacement changed to TPN replacement. Thank you. Suad Alvarez PharmD 01/12/2015 12:31 AM onver alex Transaction, Provider Unknown - 01/12/2015 12:01 AM PDT Progress Notes by Evelyn Davidson RRT at 01/12/15 0001 Author: Evelyn Davidson RRT Service: (none) Author Type: Registered Respiratory Therapi st Filed: 01/12/15 0003 Date of Service: 01/12/15 0001 Status: Signed Vice President Global Digital Marketing: Evelyn Davidson RRT (Registered Respiratory Therapist) 01/11/152299 ETT 8 mm Placement Date/Time: 01/11/152254 Size : 8 mm Cuffed: Cuffed Insertion attempts: 1 Pl aced By: Windows Vmware Engineer Secured at (cm): 22 cm Measured From: [...] Breath Sounds Right Diminished Pt intubated by Windows Vmware Engineer Karan without incident/event with ETT 8.0, 22cm at [facility] placement. No desaturations durring intubation. Placement confirmed by visual, BS, and EtCO2 detection. onver alex Transaction, Provider Unknown - 01/11/2015 11:03 PM PDT Nurse Progress Note by Chandrika Mayers RN at 01/11/152302 Author: Chandrika Mayers RN Service: (none) Author Type: Registered Nurse Filed: 01/11/152316 Date of Service: 01/11/152302 Status: Signed Vice President Global Digital Marketing: Chandrika Mayers RN (Registered Nurse) Received phone call while in another patients room that Patient had a low blood pressure. Upon entering room, lead RN and another cut out stitcher were in room. Patient alert, portuguese sp eaking only. Patient tachypnic and warm to the touch. RAT was called at approximately 2000. ICU lead RN, in room to assist along with lab, respiratory and Dr. Palmer. Patients daysh ift RN also asked in to room to assist with questions. Lead RN entered orders given by Dr. Palmer. PROPERTY HANDLER initiated fluid boluses and IV antibiotics. Per [...] 01/11/152213 Date of Service: 01/11/152211 Status: Signed Vice President Global Digital Marketing: Grace Jasso RN (Registered Nurse) Lactate result 5.0 even after multiple NS bolus. Patient being transferred to ICU with ICU lead RN, primary cut out stitcher. onver alex Transaction, Provider Unknown - 01/11/2015 8:20 PM PDT Nurse Progress Note by Grace Jasso RN at 01/11/152019 Author: Grace Jasso RN Service: (none) Author Type: Registered Nurse Filed: 01/11/152020 Date of Service: 01/11/152019 Status: Signed Vice President Global Digital Marketing: Grace Jasso RN (Registered Nurse) Pressure bags applied to NS bolus. IV antibiotics started. onver alex Transaction, Provider Unknown - 01/11/2015 8:11 PM PDT Nurse Progress Note by Grace Jasso RN at 01/11/152010 Author: Grace Jasso RN Service: (none) Author Type: Registered Nurse Filed: 01/11/152011 Date of Service: 01/11/152010 Status: Signed Vice President Global Digital Marketing: Grace Jasso RN (Registered Nurse) Mediport has good blood return. EKG done. evaluating results. onver alex Transaction, Provider Unknown - 01/11/2015 8:05 PM PDT Nurse Progress Note by Grace Jasso RN at 01/11/152004 Author: Grace Jasso RN Service: (none) Author Type: Registered Nurse Filed: 01/11/152005 Date of Service: 01/11/152004 Status: Signed Vice President Global Digital Marketing: Grace Jasso RN (Registered Nurse) Lactate and blood cultures being drawn. EKG ordered, placed called. onver alex Transaction, Provider Unknown - 01/11/2015 7:46 PM PDT Nurse Progress Note by Kayli Fletcher RN at 01/11/151945 Author: Kayli Fletcher RN Service: (none) Author Type: Registered Nurse Filed: 01/11/151949 Date of Service: 01/11/151945 Status: Signed Vice President Global Digital Marketing: Kayli Fletcher RN (Registered Nurse) Called Dr. [...] 01/11/151917 Date of Service: 01/11/151917 Status: Signed Vice President Global Digital Marketing: Odessa Moreno RPH (Pharmacist) Clinical Pharmacy Note: INITIATION OF Parenteral Nutrition: Jose Eaton 64 y.o. male Height: Ht Readings from Last 1 Encounters: 01/10/15 1.626 m (5' 4") Weight: Wt Readings from Last 1 Encounters: 01/11/15 69.4 kg (153 lb) Body Mass Index: Body mass index is 26.25 kg/(m^2). [place] Body Weight: 59.2 kg Adjusted Body Weight: 63.3 kg Creatinine: CREATININE Date Value Ref Range Status 01/11/2015 0.67* 0.70 - 1.30 mg/dL Final Comment: Testing performed at [facility], [address] [place] [address] Estimated CrCl : CREATININE: 0.67 mg/dL ABNORMAL (01/11/15 8384) Estimated creatinine clearance - 90.8 mL/min Estimated Needs: Basal Energy Expenditure (BEE): 1300 hubert BEE x 1.2-1.4 = 4623-7293 Kcal needed per day Protein Requirements: Maintenance, [...] PM PDT Nurse Progress Note by Kayli Feltcher RN at 01/11/151699 Author: Kayli Fletcher RN Service: (none) Author Type: Registered Nurse Filed: 01/11/151840 Date of Service: 01/11/151699 Status: Signed Vice President Global Digital Marketing: Kayli Fletcher RN (Registered Nurse) Pt. Found [...] 1506 Date of Service: 01/11/151447 Status: Signed Vice President Global Digital Marketing: Karsten Santiago MD (Physician) [facility] Service: Hospitalist Progress Note Pt: Jose Eaton AGE/SEX: 64 y.o. male : 1950 ROOM: [address] [place] [address] REQUESTING PROVIDER: Saleem Shore MD TODAY'S DATE: [...] soft no tendernessno guarding EXt no edwema PROGRAM HOST alert orientated time three no focality LABS: [...] hours. No results for input(s): PHART, PO2ART, RYK1HOW, F4ZENVQV, BEART in the last 168 hours. No [...] 1438 Date of Service: 01/11/151424 Status: Addendum Vice President Global Digital Marketing: Kayli Fletcher RN (Registered Nurse) Related Notes: [...] Date of Service: 01/11/15 1307 Status: Signed Vice President Global Digital Marketing: Anoop Horan RN (Registered Nurse) Met with patient and hand paster. Patient had reported to nurse earlier in [...] 01/11/15854 Date of Service: 01/11/15851 Status: Signed Vice President Global Digital Marketing: Saleem Shore MD (Physician) [facility] Service: Colon & Rectal Surgery Progress Note [...] KCl 20 mEq 110 mL/hr at 01/11/15 5574 PRN Medications HYDROcodone-acetaminophen OR HYDROcodone-acetaminophen, magnesium sulfate [...] 0435 Date of Service: 01/11/15431 Status: Signed Vice President Global Digital Marketing: Rosalva Mosqueda RN (Registered Nurse) Pt c/o [...] Date of Service: 10/16/15 1521 Status: Signed Vice President Global Digital Marketing: Asya Chauhan RD (Registered Dietitian) 01/10/15 1508 [...] General Surgery Author Type: Physician Filed: 01/10/15 1237 Date of Service: 01/10/15 1232 Status: Signed Vice President Global Digital Marketing: Saleem Shore MD (Physician) [facility] Service: Colon & Rectal Surgery Progress Note [...] Author: BRIA Colindres Service: (none) Author Type: Music Artist Filed: 01/10/15 1216 Date of Service: 01/10/154 Status: Signed Vice President Global Digital Marketing: BIRA Colindres (Music Artist) 01/10/15 1200 Anticipated Disposition Facility Type Home health care Medicare Important Message (GAUTAM) (given 01/09) Home Health Care Facility Other (comment) ([facility] ) Rcvd call from [facility] - they req call back - called them back at [phone] - they stated tht they could not take pt if he did not have a pcp - Called [facility] in [place] - pt is established with them - [...] DC so that they are aware [facility] [place] onver alex Transaction, Provider Unknown - 01/10/2015 10:47 AM PDT Nurse Progress Note by Kayli Fletcher RN at 01/10/151046 Author: Kayli Fletcher RN Service: (none) Author Type: Registered Nurse Filed: 01/10/15 1050 Date of Service: 01/10/157 Status: Signed Vice President Global Digital Marketing: Kayli Fletcher RN (Registered Nurse) Friend Liborio Escobar called to give update per his request, no answer, left my name and n umber on voicemail. Kayli Fletcher Hardeep Williamson MD - 01/10/2015 10:43 AM PDT Progress Notes by Hardeep Suarez MD at 01/10/15 104 Author: Hardeep Suarez MD Service: Hospitalist Author Type: Physician Filed: 01/10/154 Date of Service: 01/10/151042 Status: Signed Vice President Global Digital Marketing: Hardeep Suarez MD (Physician) [facility] Service: Hospitalist Progress Note Pt: Jose Eaton AGE/SEX: 64 y.o. male ROOM: [address] [place] [address] : 1950 PCP: PER PT NONE ADMIT [...] MD, FACP 01/10/2015 10:43 AM Dictation software, [employer], used which may contain error for similar sounding words even af ter review. Personal communication requested for any clarification. bag. Saleem Rodriguez MD - 01/09/2015 4:02 PM PDT Progress Notes by Saleem Shore MD at 01/09/15 160 Author: Saleem Shore MD Service: General Surgery Author Type: Physician Filed: 01/09/151602 Date of Service: 01/09/151601 Status: Signed Vice President Global Digital Marketing: Saleem Shore MD (Physician) [facility] Service: Colon & Rectal Surgery Progress Note [...] Note by Daren Kolb RN at 01/09/15 3498 Author: Daren Kolb RN Service: (none) Author Type: Registered Nurse Filed: 01/09/15 1744 Date of Service: 01/09/15 1236 Status: Signed Vice President Global Digital Marketing: Daren Kolb RN (Registered Nurse) High output [...] 1242 Date of Service: 01/09/155 Status: Signed Vice President Global Digital Marketing: Hardeep Suarez MD (Physician) [facility] Service: Hospitalist Progress Note Pt: Jose Eaton AGE/SEX: 64 y.o. male ROOM: [facility] : 1950 PCP: PER [...] MD, FACP 01/09/2015 12:15 PM Dictation software, [employer], used which may contain error for similar [...] Date of Service: 01/09/15 114 Status: Signed Vice President Global Digital Marketing: Lennie Redding RN (Registered Nurse) Floor RN [...] (none) Author Type: Registered Nurse Filed: 01/09/15 1052 Date of Service: 01/09/151052 Status: Signed Vice President Global Digital Marketing: Daren Kolb RN (Registered Nurse) Patient is [...] 01/09/151048 Date of Service: 01/09/151048 Status: Signed Vice President Global Digital Marketing: June Mo RPH (Pharmacist) Patient has been [...] Author: BRIA Ward Service: (none) Author Type: Music Artist Filed: 01/09/15831 Date of Service: 01/09/15831 Status: Signed Vice President Global Digital Marketing: BRIA Ward (Music Artist) is working on arranging for [facility] to provide Ostomy-care and eli REED aleem Christie MD - 01/08/2015 8:47 PM PDT Progress Notes by Saleem Shore MD at 01/08/152046 Author: Saleem Shore MD Service: General Surgery Author Type: Physician Filed: 01/08/152047 Date of Service: 01/08/152046 Status: Signed Vice President Global Digital Marketing: Saleem Shore MD (Physician) [facility] Service: Colon & Rectal Surgery Progress Note [...] Notes by Linda Gant RN at 01/08/15 7682 Author: Linda Gant RN Service: Wound/Ostomy Care Author Type: Registered Nurse Filed: 01/08/15 8486 Date of Service: 01/08/151327 Status: Signed Vice President Global Digital Marketing: Linda Gant RN (Registered Nurse) [facility] Service: Ostomy Care Hospital Day: LOS: 5 days Post-Op Day: 5 Days Post-Op SUBJECTIVE Patient Summary: Ostomy nurse in for continued ostomy teaching. Czech interpretor present. S/p ultra LAR with creation [...] ure as he is not able to ginner front of the mirror yet. Crusted oliva-stomal [...] Home Health as well. Patient lives in [place]. [facility] it wasn't done yesterday, order number: #[id number]. Patient provided with portuguese Ostomy p acket. Did encourage patient to [...] additional questions. Linda Gant RN, CWON 01/08/2015 Electronically signed by [facility] Transaction, Provider at 11/19/2018 7:43 PM Hardeep Williamson MD - 01/08/2015 11:13 AM PDT Progress Notes by Hardeep Suarez MD at 01/08/15 1113 Author: Hardeep Suarez MD Service: Hospitalist Author Type: Physician Filed: 01/08/15 1138 Date of Service: 01/08/151112 Status: Signed Vice President Global Digital Marketing: Hardeep Suarez MD (Physician) [facility] Service: Hospitalist Progress Note Pt: Jose Eaton [...] MD, FACP 01/08/2015 11:13 AM Dictation software, [employer], used which may contain error for similar sounding words even af ter review. Personal communication requested for any clarification. onversion Transac tion, Provider Unknown - 01/08/2015 8:08 AM PDTFormatting of this note might be different f rom the original. Case Management by BRIA Ward at 01/08/15807 Author: BRIA Ward Service: (none) Author Type: Music Artist Filed: 01/08/15807 Date of Service: 01/08/15807 Status: Signed Vice President Global Digital Marketing: BRIA Ward (Music Artist) CM met with pt for continued discharge [...] 01/07/151731 Date of Service: 01/07/151723 Status: Signed Vice President Global Digital Marketing: Bety Nguyen RN (Registered Nurse) Subjective: This pleasant 64 year old male is 3 days post op S/P Coloanal pull-th rough for low rectal cancer. The patient last PM was having nausea and vomiting with little gas or stool in pouch today. Per RN report earlier placed a Mckyo catheter in the ileostomy stoma and th e patient is now feeling better and having output in stoma. Objective: The patients ostomy pouch is intact . Assessment/Plan: The patient would like to have more ostomy teaching tomorrow and requested that we print in structions in Czech and return tomorrow for ostomy teaching with the patient. Treatment/Dressing Plan: Ostomy teaching was printed off and to be delivered to the patient tomorrow. A one piece ostomy pouch seems to be working best for the patient at this time. At the patients request free samples were ordered to be delivered to the address he specifi ed from [facility]. BETY NGUYEN RN CWOCN 5:24 PM 01/07/2015 aleem Christie MD - 01/07/2015 5:12 PM PDT Progress Notes by Saleem Shore MD at 01/07/151711 Author: Saleem Shore MD Service: General Surgery Author Type: Physician Filed: 01/07/152027 Date of Service: 01/07/151711 Status: Addendum Vice President Global Digital Marketing: Saleem Shore MD (Physician) Related Notes: Original Note by Saleem Shore MD (Physician) filed at 01/07/152025 [facility] Service: Colon & Rectal Surgery Progress Note [...] DC hooker Disposition: Code Status: Full Code Saleem Shore MD 01/07/2015 Clay, Hardeep Duval MD - 01/07/2015 9:47 AM PDT Progress Notes by Hardeep Suarez MD at 01/07/1547 Author: Hardeep Suarez MD Service: Hospitalist Author Type: Physician Filed: 01/07/15 1007 Date of Service: 01/07/1547 Status: Signed Vice President Global Digital Marketing: Hardeep Suaerz MD (Physician) [facility] Service: Hospitalist Progress Note Pt: Jose Eaton AGE/SEX: 64 y.o. male ROOM: [address] [place] [address] : 1950 PCP: GERALD PT NONE ADMIT [...] MD, FACP 01/07/2015 9:47 AM Dictation software, [employer], used which may contain error for similar sounding words even af ter review. Personal communication requested for any clarification. Saleem Rodriguez MD - 01/06/2015 8:58 PM PDT Progress Notes by Saleem Shore MD at 01/06/152057 Author: Saleem Shore MD Service: General Surgery Author Type: Physician Filed: 01/07/152036 Date of Service: 01/06/152057 Status: Addendum Vice President Global Digital Marketing: Saleem Shore MD (Physician) Related Notes: Original Note by Saleem Shore MD (Physician) filed at 01/06/152102 [facility] Service: Colon & Rectal Surgery Progress Note [...] 01/06/151714 Date of Service: 01/06/151707 Status: Signed Vice President Global Digital Marketing: Bety Nguyen RN (Registered Nurse) [facility] Service: Ostomy Care Consult Note Hospital Day: [...] will plan to return tomorrow with an hand paster to do more ostomy teaching for this dear portuguese speaking patient. Thank you for allowing me to participate in the care of this patient. I will continue to follow with you. BETY NGU[facility]EN RN [facility] 01/06/2015 Hardeep Williamson MD - 01/06/2015 9:39 AM PDT Progress Notes by Hardeep Suarez MD at 01/06/15938 Author: Hardeep Suarez MD Service: Hospitalist Author Type: Physician Filed: 01/06/15958 Date of Service: 01/06/15938 Status: Addendum Vice President Global Digital Marketing: Hardeep Suarez MD (Physician) Related Notes: Original Note by Hardeep Suarez MD (Physician) filed at 01/06/15958 [facility] Service: Hospitalist Progress Note Pt: Jose Eaton AGE/SEX: 64 y.o. male ROOM: [address] [place], [place] [address] : 1950 PCP: GERALD PT NONE ADMIT [...] MD, FACP 01/06/2015 9:39 AM Dictation software, [employer], used which may contain error for similar [...] 01/05/151616 Date of Service: 01/05/151615 Status: Signed Vice President Global Digital Marketing: Heather Kan RN (Registered Nurse) 01/05/151613 Discharge Planning Evaluation Admitting Diagnosis rectal cancer Readmission No Living Arrangements Alone Support Systems Friends/neighbors (Shawn Capone [phone]) Type of Residence Private residence House type [...] from his family. His friend Liborio Escobar helps his whenever he can. Patient's PCP [...] 01/05/15857 Date of Service: 01/05/15853 Status: Signed Vice President Global Digital Marketing: Saleem Shore MD (Physician) [facility] Service: Colon & Rectal Surgery Progress Note [...] 11:06 AM PDT Progress Notes by Saleem Shore MD at 01/04/15 1106 Author: Saleem Shore MD Service: General Surgery Author Type: Physician Filed: 01/04/15 1111 Date of Service: 01/04/151105 Status: Signed Vice President Global Digital Marketing: Saleem Shore MD (Physician) [facility] Service: Colon & Rectal Surgery Progress Note [...] Saleem Shore MD 01/04/2015 ohnson, Aline Deluca [facility] - 01/03/2015 3:54 PM PDT Progress Notes by Aline Cabrales RPH at 01/03/15 6290 Author: Aline Cabrales RPH Service: (none) Author Type: Pharmacist Filed: 01/03/15 813 Date of Service: 01/03/151553 Status: Signed Vice President Global Digital Marketing: Aline Cabrales RPH (Pharmacist) Clinical Pharmacy Note - Renal Dose Adjustment Jose Eaton 64 y.o. male Ht Readings from Last 1 Encounters: 01/03/15 1.626 m (5' 4") Wt Readings from Last 1 Encounters: 01/03/15 72.8 kg (160 lb 7.9 oz) CREATININE Date Value Ref Range Status 12/19/2014 0.63* 0.70 - 1.30 mg/dL Final Comment: Testing performed at [facility], [address] [place] [address] Creatinine clearance cannot be calculated (Patient's most [...] Note by Candace Almanza RN at 01/03/15 797 Author: Candace Almanza RN Service: (none) Author Type: Registered Nurse Filed: 01/03/15 5710 Date of Service: 01/03/151419 Status: Signed Vice President Global Digital Marketing: Candace Almanza RN (Registered Nurse) Dr Shore [...] [address] | | | | | | [place] [address] | | | | | | [phone] | | | | | | | | +--------+ + + + + | 02/21/ | Surgery | | Saleem Shore, | COLONOSCOPY | | 2018 | | | [address] | | | | | | [address] | | | | | | [place] [address] | | | | | | [phone] | | | | | | | [...] | | | Fingerstick | performed at [facility];[address] | | LAB | | | | [address];[place] | | | | | | [address] | | | | + + + [...] EXTERNAL | | | | performed at [facility];[address] | K/uL | LAB | | | | [address];[place] | | | | | | [address] | | | | + + + + + + | RED CELL | 2.61 (L)Comment: Testing | 4.20 - 5.70 | EXTERNAL | | | COUNT | performed at [facility];[address] | M/uL | LAB | | | | [address];[place] | | | | | | [address] | | | | + + + + + + | Hgb | 8.5 (L)Comment: Testing | 13.2 - 17.0 | EXTERNAL | | | | performed at [facility];888 | g/dL | LAB | | | | [address];[place] | | | | | | [address] | | | | + + + + + + | Hematocrit, | 24.8 (L)Comment: Testing | 39.0 - 50.0 % | EXTERNAL | | | POC | performed at [facility];[address] | | LAB | | | | [address];[place] | | | | | | [address] | | | | + + + + + + | MCV | 95.2Comment: Testing | 80.0 - 100.0 fl | EXTERNAL | | | | performed at [facility];[address] | | LAB | | | | [address];[place] | | | | | | [address] | | | | + + + + + + | MCH | 32.6Comment: Testing | 27.0 - 34.0 pg | EXTERNAL | | | | performed at [facility];[address] | | LAB | | | | [address];[place] | | | | | | [address] | | | | + + + + + + | MCHC | 34.2Comment: Testing | 32.0 - 35.5 | EXTERNAL | | | | performed at [facility];888 | g/dL | LAB | | | | [address];[place] | | | | | | [address] | | | | + + + + + + | RDW-CV | 45.1Comment: Testing | 37 - 53 fl | EXTERNAL | | | | performed at [facility];[address] | | LAB | | | | [address];[place] | | | | | | [address] | | | | + + + + + + | Platelet | 584 (H)Comment: Testing | 150 - 400 K/uL | EXTERNAL | | | Count | performed at [facility];[address] | | LAB | | | Plasma | [address];[place] | | | | | | [address] | | | | + + + + + + | MPV | 7.8Comment: Testing | fl | EXTERNAL | | | | performed at [facility];[address] | | LAB | | | | [address];[place] | | | | | | [address] | | | | + + + + + + | Differentia | AUTOMATEDComment: | | EXTERNAL | | | l Type | Testing performed at | | LAB | | | | [facility];[address];[place] [address] | | | | + + + + + + | % Segmented | 76.19Comment: Testing | % | EXTERNAL | | | | performed at [facility];[address] | | LAB | | | Neutrophils | [address];[place] | | | | | | [address] | | | | + + + + + + | % | 9.37Comment: Testing | % | EXTERNAL | | | Lymphocytes | performed at [facility];[address] | | LAB | | | | [address];[place] | | | | | | [address] | | | | + + + + + + | % Monocytes | 9.80Comment: Testing | % | EXTERNAL | | | | performed at [facility];[address] | | LAB | | | | [address];[place] | | | | | | [address] | | | | + + + + + + | % | 3.37Comment: Testing | % | EXTERNAL | | | Eosinophils | performed at [facility];[address] | | LAB | | | | [address];[place] | | | | | | [address] | | | | + + + + + + | % Basophils | 1.27Comment: Testing | % | EXTERNAL | | | | performed at [facility];[address] | | LAB | | | | [address];[place] | | | | | | [address] | | | | + + + + + + | Absolute | 7.44 (H)Comment: Testing | 1.90 - 7.40 | EXTERNAL | | | Segmented | performed at [facility];888 | K/uL | LAB | | | Neutrophils | [address];[place] | | | | | | [address] | | | | + + + + + + | Absolute | 0.92 (L)Comment: Testing | 1.00 - 3.90 | EXTERNAL | | | Lymphocytes | performed at [facility];[address] | K/uL | LAB | | | | [address];[place] | | | | | | [address] | | | | + + + + + + | Absolute | 0.96 (H)Comment: Testing | 0.00 - 0.80 | EXTERNAL | | | Monocytes | performed at [facility];888 | K/uL | LAB | | | | [address];[place] | | | | | | [address] | | | | + + + + + + | Absolute | 0.33Comment: Testing | 0.00 - 0.50 | EXTERNAL | | | Eosinophils | performed at [facility];[address] | K/uL | LAB | | | | [address];[place] | | | | | | [address] | | | | + + + + + + | Absolute | 0.12 (H)Comment: Testing | 0.00 - 0.10 | EXTERNAL | | | Basophils | performed at [facility];[address] | K/uL | LAB | | | | [address];[place] | | | | | | [address] | | | | + + + + + + | RBC | RBC AND PLT MORPHOLOGY | | EXTERNAL | | | Morphology | APPEAR NORMALComment: | | LAB | | | | Testing performed at | | | | | | [facility];[address];[place] [address] | | | | + + + + + + | Differentia | SLIDE SCANNED, AGREES | | EXTERNAL | | | l Comments | WITH AUTOMATED | | LAB | | | | RESULTS.Comment: Testing | | | | | | performed at [facility];[address] | | | | | | [address];[place] | | | | | | [address] | | | | + + + [...] EXTERNAL | | | | performed at [facility];[address] | | LAB | | | | [address];[place] | | | | | | [address] | | | | + + + [...] EXTERNAL | | | | performed at [facility];[address] | | LAB | | | | [address];[place], [place] | | | | | | [address] | | | | + + + [...] EXTERNAL | | | | performed at [facility];888 | mmol/L | LAB | | | | [address];[place] | | | | | | [address] | | | | + + + + + + | K | 4.5Comment: Testing | 3.5 - 4.9 | EXTERNAL | | | | performed at [facility];888 | mmol/L | LAB | | | | [address];[place] | | | | | | [address] | | | | + + + + + + | Cl | 102Comment: Testing | 99 - 109 mmol/L | EXTERNAL | | | | performed at [facility];[address] | | LAB | | | | [address];[place] | | | | | | [address] | | | | + + + + + + | CO2 | 23Comment: Testing | 23 - 32 mmol/L | EXTERNAL | | | | performed at [facility];[address] | | LAB | | | | [address];[place] | | | | | | [address] | | | | + + + + + + | Anion Gap | 13Comment: Testing | 5 - 20 mmol/L | EXTERNAL | | | | performed at [facility];[address] | | LAB | | | | [address];[place] | | | | | | [address] | | | | + + + + + + | Glucose, | 115 (H)Comment: Testing | 65 - 99 mg/dL | EXTERNAL | | | Fasting | performed at [facility];[address] | | LAB | | | | [address];[place] | | | | | | [address] | | | | + + + + + + | BUN | 30 (H)Comment: Testing | 8 - 25 mg/dL | EXTERNAL | | | | performed at [facility];[address] | | LAB | | | | [address];[place] | | | | | | [address] | | | | + + + + + + | Creatinine | 0.64 (L)Comment: Testing | 0.70 - 1.30 | EXTERNAL | | | | performed at [facility];888 | mg/dL | LAB | | | | [address];[place] | | | | | | [address] | | | | + + + + + + | BUN/Creatin | 47Comment: Testing | | EXTERNAL | | | ine Ratio | performed at [facility];[address] | | LAB | | | | [address];[place] | | | | | | [address] | | | | + + + + + + | Calcium | 8.3 (L)Comment: Testing | 8.5 - 10.5 | EXTERNAL | | | | performed at [facility];888 | mg/dL | LAB | | | | [address];[place] | | | | | | [address] | | | | + + + [...] | | | | | | at [facility];[address] [place] [address] | | | | | | [facility];[place] [address] | | | | + + + [...] | | | Fingerstick | performed at [facility];[address] | | LAB | | | | [address];[place], [place] | | | | | | [address] | | | | + + + [...] | | | Fingerstick | performed at [facility];[address] | | LAB | | | | [address];[place], [place] | | | | | | [address] | | | | + + + [...] | | | Fingerstick | performed at [facility];[address] | | LAB | | | | [address];[place], [place] | | | | | | [address] | | | | + + + [...] Conversion - 11/10/2018 8:48 AM PDT JOSE EATON3/4/[id number] yearsXR CHEST | | 1 VIEW01/24/2015 5:44 [...] | | | Fingerstick | performed at [facility];[address] | | LAB | | | | [address];[place], [place] | | | | | | [address] | | | | + + + [...] EXTERNAL | | | | performed at [facility], [address] | K/uL | LAB | | | | [address], | | | | | | [place] [address] | | | | + + + + + + | RED CELL | 2.52 (L)Comment: Testing | 4.20 - 5.70 | EXTERNAL | | | COUNT | performed at [facility], [address] | M/uL | LAB | | | | [address], | | | | | | [place] [address] | | | | + + + + + + | Hgb | 8.5 (L)Comment: Testing | 13.2 - 17.0 | EXTERNAL | | | | performed at [facility], [address] | g/dL | LAB | | | | [address], | | | | | | [place] [address] | | | | + + + + + + | Hematocrit, | 24.6 (L)Comment: Testing | 39.0 - 50.0 % | EXTERNAL | | | POC | performed at [facility], [address] | | LAB | | | | [address], | | | | | | [place] [address] | | | | + + + + + + | MCV | 97.8Comment: Testing | 80.0 - 100.0 fl | EXTERNAL | | | | performed at [facility], [address] | | LAB | | | | [address], | | | | | | [place] [address] | | | | + + + + + + | MCH | 33.5Comment: Testing | 27.0 - 34.0 pg | EXTERNAL | | | | performed at [facility], [address] | | LAB | | | | [address], | | | | | | [place] [address] | | | | + + + + + + | MCHC | 34.3Comment: Testing | 32.0 - 35.5 | EXTERNAL | | | | performed at [facility], [address] | g/dL | LAB | | | | [address], | | | | | | [place] [address] | | | | + + + + + + | RDW-CV | 45.9Comment: Testing | 37 - 53 fl | EXTERNAL | | | | performed at [facility], [address] | | LAB | | | | [address], | | | | | | [place] [address] | | | | + + + + + + | Platelet | 498 (H)Comment: Testing | 150 - 400 K/uL | EXTERNAL | | | Count | performed at [facility], [address] | | LAB | | | Plasma | [address], | | | | | | [place] [address] | | | | + + + + + + | MPV | 8.3Comment: Testing | fl | EXTERNAL | | | | performed at [facility], [address] | | LAB | | | | [address], | | | | | | [place] [address] | | | | + + + + + + | Differentia | MANUALComment: Testing | | EXTERNAL | | | l Type | performed at [facility], [address] | | LAB | | | | [address], | | | | | | [place] [address] | | | | + + + + + + | Segmented | 75Comment: Testing | % | EXTERNAL | | | Neutrophils | performed at [facility], [address] | | LAB | | | Manual | [address], | | | | | | [place] [address] | | | | + + + + + + | Lymphocytes | 11Comment: Testing | % | EXTERNAL | | | Manual | performed at [facility], [address] | | LAB | | | | [address], | | | | | | [place] [address] | | | | + + + + + + | Monocytes | 9Comment: Testing | % | EXTERNAL | | | Manual | performed at [facility], [address] | | LAB | | | | [address], | | | | | | [place] [address] | | | | + + + + + + | Eosinophils | 5Comment: Testing | % | EXTERNAL | | | Manual | performed at [facility], [address] | | LAB | | | | [address], | | | | | | [place] [address] | | | | + + + + + + | Absolute | 6.95Comment: Testing | 1.90 - 7.40 | EXTERNAL | | | Neutrophils | performed at [facility], [address] | K/uL | LAB | | | | [address], | | | | | | [place] [address] | | | | + + + + + + | Absolute | 1.02Comment: Testing | 1.00 - 3.90 | EXTERNAL | | | Lymphocytes | performed at [facility], [address] | K/uL | LAB | | | | [address], | | | | | | [place] [address] | | | | + + + + + + | Absolute | 0.83 (H)Comment: Testing | 0.00 - 0.80 | EXTERNAL | | | Monocytes | performed at [facility], [address] | K/uL | LAB | | | | [address], | | | | | | [place] [address] | | | | + + + + + + | Absolute | 0.46Comment: Testing | 0.00 - 0.50 | EXTERNAL | | | Eosinophils | performed at [facility], [address] | K/uL | LAB | | | | [address], | | | | | | [place] [address] | | | | + + + + + + | Platelet | INCREASEDComment: | | EXTERNAL | | | Estimate | Testing performed at | | LAB | | | | [facility], [address] [facility] | | | | | | [place] | | | | | | [address] | | | | + + + + + + | RBC | NORMAL RBC MORPHComment: | | EXTERNAL | | | Morphology | NORMAL PLT MORPHTesting | | LAB | | | | performed at [facility], [address] | | | | | | [address], | | | | | | [place] [address] | | | | + + + [...] EXTERNAL | | | | performed at [facility];[address] | | LAB | | | | [address];[place] | | | | | | [address] | | | | + + + [...] EXTERNAL | | | | performed at [facility];[address] | | LAB | | | | [address];[place] | | | | | | [address] | | | | + + + [...] EXTERNAL | | | | performed at [facility];[address] | | LAB | | | | [address];[place], [place] | | | | | | [address] | | | | + + + [...] EXTERNAL | | | | performed at [facility];[address] | mmol/L | LAB | | | | [address];[place] | | | | | | [address] | | | | + + + + + + | K | 4.8Comment: Testing | 3.5 - 4.9 | EXTERNAL | | | | performed at [facility];[address] | mmol/L | LAB | | | | [address];[place] | | | | | | [address] | | | | + + + + + + | Cl | 104Comment: Testing | 99 - 109 mmol/L | EXTERNAL | | | | performed at [facility];[address] | | LAB | | | | [address];[place] | | | | | | [address] | | | | + + + + + + | CO2 | 25Comment: Testing | 23 - 32 mmol/L | EXTERNAL | | | | performed at [facility];[address] | | LAB | | | | [address];[place] | | | | | | [address] | | | | + + + + + + | Anion Gap | 11Comment: Testing | 5 - 20 mmol/L | EXTERNAL | | | | performed at [facility];[address] | | LAB | | | | [address];[place] | | | | | | [address] | | | | + + + + + + | Glucose, | 115 (H)Comment: Testing | 65 - 99 mg/dL | EXTERNAL | | | Fasting | performed at [facility];[address] | | LAB | | | | [address];[place] | | | | | | [address] | | | | + + + + + + | BUN | 29 (H)Comment: Testing | 8 - 25 mg/dL | EXTERNAL | | | | performed at [facility];[address] | | LAB | | | | [address];[place] | | | | | | [address] | | | | + + + + + + | Creatinine | 0.60 (L)Comment: Testing | 0.70 - 1.30 | EXTERNAL | | | | performed at [facility];[address] | mg/dL | LAB | | | | [address];[place] | | | | | | [address] | | | | + + + + + + | BUN/Creatin | 49Comment: Testing | | EXTERNAL | | | ine Ratio | performed at [facility];[address] | | LAB | | | | [address];[place] | | | | | | [address] | | | | + + + + + + | Calcium | 8.2 (L)Comment: Testing | 8.5 - 10.5 | EXTERNAL | | | | performed at [facility];888 | mg/dL | LAB | | | | [address];[place] | | | | | | [address] | | | | + + + [...] | | | | | | at [facility];[address] [place] [address] | | | | | | [facility];[place] [address] | | | | + + + [...] | | | Fingerstick | performed at [facility];[address] | | LAB | | | | [address];[place], [place] | | | | | | [address] | | | | + + + [...] | | | Fingerstick | performed at [facility];[address] | | LAB | | | | [address];[place] | | | | | | [address] | | | | + + + [...] reconstructed images | | | performed by pathology laboratory technologist. Contrast: MultiHance. Dose: 14 mL. | [...] JOSE EATON1950MRI ABDOMEN W WO | | EYDQOWTZ21/29/2015 3:06 PM HISTORY: Rectal carcinoma, mucous plug [...] | intensity projected reconstructed images performed by pathology laboratory technologist.Contrast: | | MultiHance. Dose: 14 mL. [...] | | | Fingerstick | performed at [facility];[address] | | LAB | | | | [address];[place] | | | | | | [address] | | | | + + + [...] Conversion - 11/10/2018 8:48 AM PDT JOSE UMA3/4/[id number] yearsXR CHEST | | 1 VIEW01/23/2015 5:52 [...] | | | Fingerstick | performed at [facility];[address] | | LAB | | | | [address];[place] | | | | | | [address] | | | | + + + [...] EXTERNAL | | | | performed at [facility], [address] | K/uL | LAB | | | | [address], | | | | | | [place] [address] | | | | + + + + + + | RED CELL | 2.47 (L)Comment: Testing | 4.20 - 5.70 | EXTERNAL | | | COUNT | performed at [facility], [address] | M/uL | LAB | | | | [address], | | | | | | [place] [address] | | | | + + + + + + | Hgb | 8.2 (L)Comment: Testing | 13.2 - 17.0 | EXTERNAL | | | | performed at [facility], [address] | g/dL | LAB | | | | [address] [address], | | | | | | [place] [address] | | | | + + + + + + | Hematocrit, | 24.1 (L)Comment: Testing | 39.0 - 50.0 % | EXTERNAL | | | POC | performed at [facility], [address] | LAB | | | | [address] [employer], | | | | | | [place] [address] | | | | + + + + + + | MCV | 97.5Comment: Testing | 80.0 - 100.0 fl | EXTERNAL | | | | performed at [facility], [address] | | LAB | | | | [place], | | | | | | [place] [address] | | | | + + + + + + | MCH | 33.3Comment: Testing | 27.0 - 34.0 pg | EXTERNAL | | | | performed at [facility], [address] | | LAB | | | | [place], | | | | | | [place] [address] | | | | + + + + + + | MCHC | 34.2Comment: Testing | 32.0 - 35.5 | EXTERNAL | | | | performed at [facility], [address] | g/dL | LAB | | | | [address], | | | | | | [place] [address] | | | | + + + + + + | RDW-CV | 44.2Comment: Testing | 37 - 53 fl | EXTERNAL | | | | performed at [facility], [address] | | LAB | | | | [address], | | | | | | [place] [address] | | | | + + + + + + | Platelet | 408 (H)Comment: Testing | 150 - 400 K/uL | EXTERNAL | | | Count | performed at [facility], [address] | | LAB | | | Plasma | [address], | | | | | | [place] [address] | | | | + + + + + + | MPV | 8.7Comment: Testing | fl | EXTERNAL | | | | performed at [facility], [address] | | LAB | | | | [address], | | | | | | [place] [address] | | | | + + + + + + | Differentia | MANUALComment: Testing | | EXTERNAL | | | l Type | performed at [facility], [address] | | LAB | | | | [address], | | | | | | [place], [place] [address] | | | | + + + + + + | Segmented | 84Comment: Testing | % | EXTERNAL | | | Neutrophils | performed at [facility], [address] | | LAB | | | Manual | [address], | | | | | | [place], [place] [address] | | | | + + + + + + | % Bands | 3Comment: Testing | % | EXTERNAL | | | | performed at [facility], [address] | | LAB | | | | [address], | | | | | | [place], [place] [address] | | | | + + + + + + | % | 1Comment: Testing | % | EXTERNAL | | | Metamyelocy | performed at [facility], [address] | | LAB | | | romaine | [address], | | | | | | [place], [place] [address] | | | | + + + + + + | Lymphocytes | 6Comment: Testing | % | EXTERNAL | | | Manual | performed at [facility], [address] | | LAB | | | | [place], | | | | | | [place] [address] | | | | + + + + + + | Monocytes | 3Comment: Testing | % | EXTERNAL | | | Manual | performed at [facility], [address] | | LAB | | | | [address], | | | | | | [place] [address] | | | | + + + + + + | Eosinophils | 3Comment: Testing | % | EXTERNAL | | | Manual | performed at [facility], [address] | | LAB | | | | [address], | | | | | | [place] [address] | | | | + + + + + + | Absolute | 9.02 (H)Comment: Testing | 1.90 - 7.40 | EXTERNAL | | | Neutrophils | performed at [facility], [address] | K/uL | LAB | | | | [address], | | | | | | [place] [address] | | | | + + + + + + | Bands | 0.32 (H)Comment: Testing | 0.00 - 0.20 | EXTERNAL | | | Manual | performed at [facility], [address] | K/uL | LAB | | | | [address], | | | | | | [place] [address] | | | | + + + + + + | Absolute | 0.11 (H)Comment: Testing | K/uL | EXTERNAL | | | Metamyelocy | performed at [facility], [address] | | LAB | | | [address] | [address], | | | | | | [place] [address] | | | | + + + + + + | Absolute | 0.64 (L)Comment: Testing | 1.00 - 3.90 | EXTERNAL | | | Lymphocytes | performed at [facility], [address] | K/uL | LAB | | | | [address], | | | | | | [place] [address] | | | | + + + + + + | Absolute | 0.32Comment: Testing | 0.00 - 0.80 | EXTERNAL | | | Monocytes | performed at [facility], [address] | K/uL | LAB | | | | [address], | | | | | | [place] [address] | | | | + + + + + + | Absolute | 0.32Comment: Testing | 0.00 - 0.50 | EXTERNAL | | | Eosinophils | performed at [facility], [address] | K/uL | LAB | | | | [address], | | | | | | [place] [address] | | | | + + + + + + | Platelet | INCREASEDComment: | | EXTERNAL | | | Estimate | Testing performed at | | LAB | | | | [facility], [address] [facility] | | | | | | [place] | | | | | | [address] | | | | + + + + + + | RBC | 1+Comment: ANISONORMAL | | EXTERNAL | | | Morphology | PLT MORPHTesting | | LAB | | | | performed at [facility], [address] | | | | | | [facility] | | | | | | [place] [address] | | | | | | | [...] EXTERNAL | | | | performed at [facility];[address] | | LAB | | | | [address];[place], [place] | | | | | | [address] | | | | + + + [...] EXTERNAL | | | | performed at [facility];8 | | LAB | | | | [address];[place] | | | | | | [address] | | | | + + + [...] EXTERNAL | | | | performed at [facility];[address] | | LAB | | | | [address];[place], [place] | | | | | | [address] | | | | + + + [...] | | Last Dose | performed at [facility];[address] | | LAB | | | | [address];[place] | | | | | | [address] | | | | + + + + + + | Time of | UNKNOWNComment: Testing | | EXTERNAL | | | Last Dose | performed at [facility];[address] | | LAB | | | | [address];[place] | | | | | | [address] | | | | + + + + + + | Digoxin | 1.3Comment: Testing | 0.90 - 2.00 | EXTERNAL | | | level | performed at [facility], [address] | ng/mL | LAB | | | | [address] [place], | | | | | | [place] [address] | | | | + + + [...] EXTERNAL | | | | performed at [facility];[address] | mmol/L | LAB | | | | [address];[place] | | | | | | [address] | | | | + + + + + + | K | 4.3Comment: Testing | 3.5 - 4.9 | EXTERNAL | | | | performed at [facility];888 | mmol/L | LAB | | | | [address];[place] | | | | | | [address] | | | | + + + + + + | Cl | 103Comment: Testing | 99 - 109 mmol/L | EXTERNAL | | | | performed at [facility];[address] | | LAB | | | | [address];[place] | | | | | | [address] | | | | + + + + + + | CO2 | 28Comment: Testing | 23 - 32 mmol/L | EXTERNAL | | | | performed at [facility];[address] | | LAB | | | | [address];[place] | | | | | | [address] | | | | + + + + + + | Anion Gap | 8Comment: Testing | 5 - 20 mmol/L | EXTERNAL | | | | performed at [facility];[address] | | LAB | | | | [address];[place] | | | | | | [address] | | | | + + + + + + | Glucose, | 113 (H)Comment: Testing | 65 - 99 mg/dL | EXTERNAL | | | Fasting | performed at [facility];[address] | | LAB | | | | [address];[place] | | | | | | [address] | | | | + + + + + + | BUN | 27 (H)Comment: Testing | 8 - 25 mg/dL | EXTERNAL | | | | performed at [facility];[address] | | LAB | | | | [address];[place] | | | | | | [address] | | | | + + + + + + | Creatinine | 0.65 (L)Comment: Testing | 0.70 - 1.30 | EXTERNAL | | | | performed at [facility];888 | mg/dL | LAB | | | | [address];[place] | | | | | | [address] | | | | + + + + + + | BUN/Creatin | 42Comment: Testing | | EXTERNAL | | | ine Ratio | performed at [facility];[address] | | LAB | | | | [address];[place] | | | | | | [address] | | | | + + + + + + | Calcium | 8.0 (L)Comment: Testing | 8.5 - 10.5 | EXTERNAL | | | | performed at [facility];888 | mg/dL | LAB | | | | [address];[place] | | | | | | [address] | | | | + + + [...] | | | | | | at [facility];[address] [place] [address] | | | | | | [facility];[place] [address] | | | | + + + [...] | | | Fingerstick | performed at [facility];[address] | | LAB | | | | [address];[place], [place] | | | | | | [address] | | | | + + + [...] EXTERNAL | | | | performed at [facility];888 | mmol/L | LAB | | | | [address];[place] | | | | | | [address] | | | | + + + [...] EXTERNAL | | | | performed at [facility];[address] | | LAB | | | | [address];[place], [place] | | | | | | [address] | | | | + + + [...] EXTERNAL | | | | performed at [facility];888 | | LAB | | | | [address];[place], [place] | | | | | | [address] | | | | + + + [...] | | | Fingerstick | performed at [facility];888 | | LAB | | | | [address];[place], [place] | | | | | | [address] | | | | + + + [...] | | | Fingerstick | performed at [facility];[address] | | LAB | | | | [address];[place], [place] | | | | | | [address] | | | | + + + [...] K/uL | LAB | | | | [facility];[address];[place] [phone] | | | | + + + + + + | RED CELL | 2.60 (L)Comment: Testing | 4.20 - 5.70 | EXTERNAL | | | COUNT | performed at [facility];888 | M/uL | LAB | | | | [address];[place] | | | | | | [address] | | | | + + + + + + | Hgb | 8.3 (L)Comment: Testing | 13.2 - 17.0 | EXTERNAL | | | | performed at [facility];888 | g/dL | LAB | | | | [address];[place] | | | | | | [address] | | | | + + + + + + | Hematocrit, | 25.4 (L)Comment: Testing | 39.0 - 50.0 % | EXTERNAL | | | POC | performed at [facility];[address] | | LAB | | | | [address];[place] | | | | | | [address] | | | | + + + + + + | MCV | 97.8Comment: Testing | 80.0 - 100.0 fl | EXTERNAL | | | | performed at [facility];[address] | | LAB | | | | [address];[place] | | | | | | [address] | | | | + + + + + + | MCH | 31.9Comment: Testing | 27.0 - 34.0 pg | EXTERNAL | | | | performed at [facility];[address] | | LAB | | | | [address];[place] | | | | | | [address] | | | | + + + + + + | MCHC | 32.6Comment: Testing | 32.0 - 35.5 | EXTERNAL | | | | performed at [facility];888 | g/dL | LAB | | | | [address];[place] | | | | | | [address] | | | | + + + + + + | RDW-CV | 46.4Comment: Testing | 37 - 53 fl | EXTERNAL | | | | performed at [facility];[address] | | LAB | | | | [address];[place] | | | | | | [address] | | | | + + + + + + | Platelet | 320Comment: Testing | 150 - 400 K/uL | EXTERNAL | | | Count | performed at [facility];[address] | | LAB | | | Plasma | [address];[place] | | | | | | [address] | | | | + + + + + + | MPV | 8.6Comment: Testing | fl | EXTERNAL | | | | performed at [facility];[address] | | LAB | | | | [address];[place] | | | | | | [address] | | | | + + + + + + | Differentia | MANUALComment: Testing | | EXTERNAL | | | l Type | performed at [facility];[address] | | LAB | | | | [address];[place] | | | | | | [address] | | | | + + + + + + | Segmented | 77Comment: Testing | % | EXTERNAL | | | Neutrophils | performed at [facility];[address] | | LAB | | | Manual | [address];[place] | | | | | | [address] | | | | + + + + + + | % Bands | 7Comment: Testing | % | EXTERNAL | | | | performed at [facility];[address] | | LAB | | | | [address];[place] | | | | | | [address] | | | | + + + + + + | Lymphocytes | 6Comment: Testing | % | EXTERNAL | | | Manual | performed at [facility];[address] | | LAB | | | | [address];[place] | | | | | | [address] | | | | + + + + + + | Monocytes | 9Comment: Testing | % | EXTERNAL | | | Manual | performed at [facility];[address] | | LAB | | | | [address];[place] | | | | | | [address] | | | | + + + + + + | Eosinophils | 1Comment: Testing | % | EXTERNAL | | | Manual | performed at [facility];[address] | | LAB | | | | [address];[place] | | | | | | [address] | | | | + + + + + + | Absolute | 9.42 (H)Comment: Testing | 1.90 - 7.40 | EXTERNAL | | | Neutrophils | performed at [facility];888 | K/uL | LAB | | | | [address];[place] | | | | | | [address] | | | | + + + + + + | Bands | 0.86 (H)Comment: Testing | 0.00 - 0.20 | EXTERNAL | | | Manual | performed at [facility];888 | K/uL | LAB | | | | [address];[place] | | | | | | [address] | | | | + + + + + + | Absolute | 0.73 (L)Comment: Testing | 1.00 - 3.90 | EXTERNAL | | | Lymphocytes | performed at [facility];888 | K/uL | LAB | | | | [address];[place] | | | | | | [address] | | | | + + + + + + | Absolute | 1.10 (H)Comment: Testing | 0.00 - 0.80 | EXTERNAL | | | Monocytes | performed at [facility];[address] | K/uL | LAB | | | | [address];[place] | | | | | | [address] | | | | + + + + + + | Absolute | 0.12Comment: Testing | 0.00 - 0.50 | EXTERNAL | | | Eosinophils | performed at [facility];888 | K/uL | LAB | | | | [address];[place] | | | | | | [address] | | | | + + + + + + | RBC | RBC AND PLT MORPHOLOGY | | EXTERNAL | | | Morphology | APPEAR NORMALComment: | | LAB | | | | Testing performed at | | | | | | [facility];[address];[place] [phone] | | | | + + + [...] EXTERNAL | | | | performed at [facility];[address] | | LAB | | | | [address];[place], [place] | | | | | | [address] | | | | + + + [...] EXTERNAL | | | | performed at [facility] | | LAB | | | | [address];[place], [place] | | | | | | [address] | | | | + + + [...] EXTERNAL | | | | performed at [facility];888 | mmol/L | LAB | | | | [address];[place] | | | | | | [address] | | | | + + + + + + | K | 4.2Comment: Testing | 3.5 - 4.9 | EXTERNAL | | | | performed at [facility];888 | mmol/L | LAB | | | | [address];[place] | | | | | | [address] | | | | + + + + + + | Cl | 104Comment: Testing | 99 - 109 mmol/L | EXTERNAL | | | | performed at [facility];[address] | | LAB | | | | [address];[place] | | | | | | [address] | | | | + + + + + + | CO2 | 26Comment: Testing | 23 - 32 mmol/L | EXTERNAL | | | | performed at [facility];[address] | | LAB | | | | [address];[place] | | | | | | [address] | | | | + + + + + + | Anion Gap | 11Comment: Testing | 5 - 20 mmol/L | EXTERNAL | | | | performed at [facility];888 | | LAB | | | | [address];[place] | | | | | | [address] | | | | + + + + + + | Glucose, | 123 (H)Comment: Testing | 65 - 99 mg/dL | EXTERNAL | | | Fasting | performed at [facility];[address] | | LAB | | | | [address];[place] | | | | | | [address] | | | | + + + + + + | BUN | 27 (H)Comment: Testing | 8 - 25 mg/dL | EXTERNAL | | | | performed at [facility];[address] | | LAB | | | | [address];[place] | | | | | | [address] | | | | + + + + + + | Creatinine | 0.57 (L)Comment: Testing | 0.70 - 1.30 | EXTERNAL | | | | performed at [facility];888 | mg/dL | LAB | | | | [address];[place] | | | | | | [address] | | | | + + + + + + | BUN/Creatin | 47Comment: Testing | | EXTERNAL | | | ine Ratio | performed at [facility];[address] | | LAB | | | | [address];[place] | | | | | | [address] | | | | + + + + + + | Calcium | 7.8 (L)Comment: Testing | 8.5 - 10.5 | EXTERNAL | | | | performed at [facility];888 | mg/dL | LAB | | | | [address];[place] | | | | | | [address] | | | | + + + [...] | | | | | | at [facility];[address] [place] [address] | | | | | | [facility];[place] [address] | | | | + + + [...] | | | Fingerstick | performed at [facility];8 | | LAB | | | | [address];[place], [place] | | | | | | [address] | | | | + + + [...] Conversion - 11/10/2018 8:48 AM PDT JOSE [id number] yearsXR CHEST | | 1 VIEW01/22/2015 5:58 [...] EXTERNAL | | | | performed at [facility], [address] | K/uL | LAB | | | | [address], | | | | | | [place] [address] | | | | + + + + + + | RED CELL | 2.32 (L)Comment: Testing | 4.20 - 5.70 | EXTERNAL | | | COUNT | performed at [facility], [address] | M/uL | LAB | | | | [address], | | | | | | [place] [address] | | | | + + + + + + | Hgb | 7.6 (L)Comment: Testing | 13.2 - 17.0 | EXTERNAL | | | | performed at [facility], [address] | g/dL | LAB | | | | [address], | | | | | | [place] [address] | | | | + + + + + + | Hematocrit, | 25.2 (L)Comment: Testing | 39.0 - 50.0 % | EXTERNAL | | | POC | performed at [facility], [address] | | LAB | | | | [address], | | | | | | [place] [address] | | | | + + + + + + | MCV | 108.4 (H)Comment: | 80.0 - 100.0 fl | EXTERNAL | | | | Testing performed at | | LAB | | | | [facility], [address] [facility] | | | | | | [place] | | | | | | [address] | | | | + + + + + + | MCH | 32.7Comment: Testing | 27.0 - 34.0 pg | EXTERNAL | | | | performed at [facility], [address] | | LAB | | | | [address], | | | | | | [place] [address] | | | | + + + + + + | MCHC | 30.2 (L)Comment: Testing | 32.0 - 35.5 | EXTERNAL | | | | performed at [facility], [address] | g/dL | LAB | | | | [address], | | | | | | [place] [address] | | | | + + + + + + | RDW-CV | 57.3 (H)Comment: Testing | 37 - 53 fl | EXTERNAL | | | | performed at [facility], [address] | | LAB | | | | [address], | | | | | | [place] [address] | | | | + + + + + + | Platelet | 291Comment: Testing | 150 - 400 K/uL | EXTERNAL | | | Count | performed at [facility], [address] | | LAB | | | Plasma | [address], | | | | | | [place] [address] | | | | + + + + + + | MPV | 9.1Comment: Testing | fl | EXTERNAL | | | | performed at [facility], [address] | | LAB | | | | [address], | | | | | | [place] [address] | | | | + + + + + + | Differentia | MANUALComment: Testing | | EXTERNAL | | | l Type | performed at [facility], [address] | | LAB | | | | [address], | | | | | | [place] [address] | | | | + + + + + + | Segmented | 78Comment: Testing | % | EXTERNAL | | | Neutrophils | performed at [facility], [address] | | LAB | | | Manual | [address], | | | | | | [place] [address] | | | | + + + + + + | % Bands | 6Comment: Testing | % | EXTERNAL | | | | performed at [facility], [address] | | LAB | | | | [address], | | | | | | [place] [address] | | | | + + + + + + | Lymphocytes | 6Comment: Testing | % | EXTERNAL | | | Manual | performed at [facility], [address] | | LAB | | | | [address], | | | | | | [place] [address] | | | | + + + + + + | Monocytes | 8Comment: Testing | % | EXTERNAL | | | Manual | performed at [facility], [address] | | LAB | | | | [address], | | | | | | [place] [address] | | | | + + + + + + | Eosinophils | 2Comment: Testing | % | EXTERNAL | | | Manual | performed at [facility], [address] | | LAB | | | | [address], | | | | | | [place] [address] | | | | + + + + + + | Absolute | 8.26 (H)Comment: Testing | 1.90 - 7.40 | EXTERNAL | | | Neutrophils | performed at [facility], [address] | K/uL | LAB | | | | [address], | | | | | | [place] [address] | | | | + + + + + + | Bands | 0.64 (H)Comment: Testing | 0.00 - 0.20 | EXTERNAL | | | Manual | performed at [facility], [address] | K/uL | LAB | | | | [address], | | | | | | [place] [address] | | | | + + + + + + | Absolute | 0.64 (L)Comment: Testing | 1.00 - 3.90 | EXTERNAL | | | Lymphocytes | performed at [facility], [address] | K/uL | LAB | | | | [address], | | | | | | [place] [address] | | | | + + + + + + | Absolute | 0.85 (H)Comment: Testing | 0.00 - 0.80 | EXTERNAL | | | Monocytes | performed at [facility], [address] | K/uL | LAB | | | | [address], | | | | | | [place] [address] | | | | + + + + + + | Absolute | 0.21Comment: Testing | 0.00 - 0.50 | EXTERNAL | | | Eosinophils | performed at [facility], [address] | K/uL | LAB | | | | [address], | | | | | | [place] [address] | | | | + + + + + + | RBC | 2+Comment: MACRONORMAL | | EXTERNAL | | | Morphology | PLT MORPHTesting | | LAB | | | | performed at [facility], [address] | | | | | | [address], | | | | | | [place] [address] | | | | | | | [...] | | | Fingerstick | performed at [facility];[address] | | LAB | | | | [address];[place] | | | | | | [address] | | | | + + + [...] | | | Fingerstick | performed at [facility];[address] | | LAB | | | | [address];[place], [place] | | | | | | [address] | | | | + + + [...] | | | Fingerstick | performed at [facility];[address] | | LAB | | | | [address];[place], [place] | | | | | | [address] | | | | + + + [...] | | | Fingerstick | performed at [facility];[address] | | LAB | | | | [address];[place], [place] | | | | | | [address] | | | | + + + [...] Conversion - 11/10/2018 8:48 AM PDT JOSE [id number] yearsXR CHEST | | 1 VIEW01/21/2015 5:52 [...] | | | (Calc) | performed at [facility];[address] | mmol/L | LAB | | | | [address];[place] | | | | | | [address] | | | | + + + + + + | pH, Bld | 7.429Comment: Testing | 7.300 - 7.450 | EXTERNAL | | | | performed at [facility];[address] | | LAB | | | | [address];[place] | | | | | | [address] | | | | + + + [...] K/uL | LAB | | | | [facility] [address] | | | | | | [address];[place] [phone] | | | | + + + + + + | RED CELL | 2.54 (L)Comment: Testing | 4.20 - 5.70 | EXTERNAL | | | COUNT | performed at [facility];888 | M/uL | LAB | | | | [address];[place] | | | | | | [id number] | | | | + + + + + + | Hgb | 8.3 (L)Comment: Testing | 13.2 - 17.0 | EXTERNAL | | | | performed at [facility];888 | g/dL | LAB | | | | [address];[place] | | | | | | [id number] | | | | + + + + + + | Hematocrit, | 24.5 (L)Comment: Testing | 39.0 - 50.0 % | EXTERNAL | | | POC | performed at [facility];[address] | | LAB | | | | [address];[place] | | | | | | [phone] | | | | + + + + + + | MCV | 96.5Comment: Testing | 80.0 - 100.0 fl | EXTERNAL | | | | performed at [facility];[address] | | LAB | | | | [address];[place] | | | | | | [id number] | | | | + + + + + + | MCH | 32.6Comment: Testing | 27.0 - 34.0 pg | EXTERNAL | | | | performed at [facility];[address] | | LAB | | | | [address];[place] | | | | | | [phone] | | | | + + + + + + | MCHC | 33.8Comment: Testing | 32.0 - 35.5 | EXTERNAL | | | | performed at [facility];888 | g/dL | LAB | | | | [address];[place] | | | | | | [id number] | | | | + + + + + + | RDW-CV | 44.2Comment: Testing | 37 - 53 fl | EXTERNAL | | | | performed at [facility];[address] | | LAB | | | | [address];[place] | | | | | | [id number] | | | | + + + + + + | Platelet | 254Comment: Testing | 150 - 400 K/uL | EXTERNAL | | | Count | performed at [facility];[address] | | LAB | | | Plasma | [address];[place] | | | | | | [id number] | | | | + + + + + + | MPV | 9.4Comment: Testing | fl | EXTERNAL | | | | performed at [facility];[address] | | LAB | | | | [address];[place] | | | | | | [phone] | | | | + + + + + + | Differentia | AUTOMATEDComment: | | EXTERNAL | | | l Type | Testing performed at | | LAB | | | | [facility];[address];[place] [phone] | | | | + + + + + + | % Segmented | 89.54Comment: Testing | % | EXTERNAL | | | | performed at [facility] [facility];[address] | | LAB | | | Neutrophils | [address];[place] | | | | | | [phone] | | | | + + + + + + | % | 2.26Comment: Testing | % | EXTERNAL | | | Lymphocytes | performed at [facility];[address] | | LAB | | | | [address];[place] | | | | | | [phone] | | | | + + + + + + | % Monocytes | 6.77Comment: Testing | % | EXTERNAL | | | | performed at [facility];[address] | | LAB | | | | [address];[place] | | | | | | [phone] | | | | + + + + + + | % | 1.18Comment: Testing | % | EXTERNAL | | | Eosinophils | performed at [facility];[address] | | LAB | | | | [address];[place] | | | | | | [address] | | | | + + + + + + | % Basophils | 0.25Comment: Testing | % | EXTERNAL | | | | performed at [facility];[address] | | LAB | | | | [address];[place] | | | | | | [phone] | | | | + + + + + + | Absolute | 13.70 (H)Comment: | 1.90 - 7.40 | EXTERNAL | | | Segmented | Testing performed at | K/uL | LAB | | | Neutrophils | [facility];[address] | | [address];[place] [phone] | | | | + + + + + + | Absolute | 0.35 (L)Comment: Testing | 1.00 - 3.90 | EXTERNAL | | | Lymphocytes | performed at [facility];888 | K/uL | LAB | | | | [address];[place] | | | | | | [phone] | | | | + + + + + + | Absolute | 1.04 (H)Comment: Testing | 0.00 - 0.80 | EXTERNAL | | | Monocytes | performed at [facility];888 | K/uL | LAB | | | | [address];[place] | | | | | | [phone] | | | | + + + + + + | Absolute | 0.18Comment: Testing | 0.00 - 0.50 | EXTERNAL | | | Eosinophils | performed at [facility];888 | K/uL | LAB | | | | [address];[place] | | | | | | [phone] | | | | + + + + + + | Absolute | 0.04Comment: Testing | 0.00 - 0.10 | EXTERNAL | | | Basophils | performed at [facility];888 | K/uL | LAB | | | | [address];[place] | | | | | | [phone] | | | | + + + + + + | RBC | RBC AND PLT MORPHOLOGY | | EXTERNAL | | | Morphology | APPEAR NORMALComment: | | LAB | | | | Testing performed at | | | | | | [facility];[address];[place] [phone] | | | | + + + + + + | Platelet | ADEQUATEComment: Testing | | EXTERNAL | | | Estimate | performed at [facility];[address] | | LAB | | | | [address];[place] | | | | | | [phone] | | | | + + + + + + | Differentia | SLIDE SCANNED, AGREES | | EXTERNAL | | | l Comments | WITH AUTOMATED | | LAB | | | | RESULTS.Comment: Testing | | | | | | performed at [facility];[address] | | | | | | [address];[place] | | | | | | [phone] | | | | + + + [...] | | | es | performed at [facility] | | LAB | | | | [address];[place], [place] | | | | | | [address] | | | | + + + [...] EXTERNAL | | | | performed at [facility];[address] | | LAB | | | | [address];[place], [place] | | | | | | [address] | | | | + + + [...] EXTERNAL | | | | performed at [facility];[address] | | LAB | | | | [address];[place], [place] | | | | | | [address] | | | | + + + [...] | | Last Dose | performed at [facility];888 | | LAB | | | | [address];[place] | | | | | | [address] | | | | + + + + + + | Time of | UNKNOWNComment: Testing | | EXTERNAL | | | Last Dose | performed at [facility];[address] | | LAB | | | | [address];[place] | | | | | | [phone] | | | | + + + + + + | Digoxin | 1.9Comment: Testing | 0.90 - 2.00 | EXTERNAL | | | level | performed at [facility];888 | ng/mL | LAB | | | | [address];[place] | | | | | | [phone] | | | | + + + [...] EXTERNAL | | | | performed at [facility];888 | mmol/L | LAB | | | | [address];[place] | | | | | | [phone] | | | | + + + + + + | K | 4.3Comment: Testing | 3.5 - 4.9 | EXTERNAL | | | | performed at [facility];888 | mmol/L | LAB | | | | [address];[place] | | | | | | [phone] | | | | + + + + + + | Cl | 106Comment: Testing | 99 - 109 mmol/L | EXTERNAL | | | | performed at [facility];[address] | | LAB | | | | [address];[place] | | | | | | [phone] | | | | + + + + + + | CO2 | 23Comment: Testing | 23 - 32 mmol/L | EXTERNAL | | | | performed at [facility];[address] | | LAB | | | | [address];[place] | | | | | | [address] | | | | + + + + + + | Anion Gap | 11Comment: Testing | 5 - 20 mmol/L | EXTERNAL | | | | performed at [facility];[address] | | LAB | | | | [address];[place] | | | | | | [phone] | | | | + + + + + + | Glucose, | 140 (H)Comment: Testing | 65 - 99 mg/dL | EXTERNAL | | | Fasting | performed at [facility];[address] | | LAB | | | | [address];[place] | | | | | | [phone] | | | | + + + + + + | BUN | 27 (H)Comment: Testing | 8 - 25 mg/dL | EXTERNAL | | | | performed at [facility];[address] | | LAB | | | | [address];[place] | | | | | | [phone] | | | | + + + + + + | Creatinine | 0.65 (L)Comment: Testing | 0.70 - 1.30 | EXTERNAL | | | | performed at [facility];888 | mg/dL | LAB | | | | [address];[place] | | | | | | [phone] | | | | + + + + + + | BUN/Creatin | 42Comment: Testing | | EXTERNAL | | | ine Ratio | performed at [facility];[address] | | LAB | | | | [address];[place] | | | | | | [phone] | | | | + + + + + + | Calcium | 7.4 (L)Comment: Testing | 8.5 - 10.5 | EXTERNAL | | | | performed at [facility];888 | mg/dL | LAB | | | | [address];[place] | | | | | | [phone] | | | | + + + [...] | | | | | | at [facility];[address] | | | | [address];[place] [phone] | | | | + + + [...] | | | Fingerstick | performed at [facility];888 | | LAB | | | | [address];[place], [place] | | | | | | [address] | | | | + + + [...] | | | Fingerstick | performed at [facility];[address] | | LAB | | | | [address];[place] | | | | | | [address] | | | | + + + [...] EXTERNAL | | | | performed at [facility];888 | mmol/L | LAB | | | | [address];[place], [place] | | | | | | [address] | | | | + + + [...] EXTERNAL | | | | performed at [facility];[address] | | LAB | | | | [address];[place], [place] | | | | | | [address] | | | | + + + [...] EXTERNAL | | | | performed at [facility];888 | | LAB | | | | [address];[place], [place] | | | | | | [address] | | | | + + + [...] | | Last Dose | performed at [facility];888 | | LAB | | | | [address];[place] | | | | | | [phone] | | | | + + + + + + | Time of | UNKNOWNComment: Testing | | EXTERNAL | | | Last Dose | performed at [facility];888 | | LAB | | | | [address];[place] | | | | | | [phone] | | | | + + + + + + | Digoxin | 1.4Comment: Testing | 0.90 - 2.00 | EXTERNAL | | | level | performed at [facility], [address] | ng/mL | LAB | | | | [address], | | | | | | [place] [address] | | | | + + + [...] | | | Fingerstick | performed at [facility];[address] | | LAB | | | | [address];[place], [place] | | | | | | [address] | | | | + + + [...] | | | Fingerstick | performed at [facility];888 | | LAB | | | | [address];[place] | | | | | | [phone] | | | | + + + [...] SEEN | | | Testing performed at [facility];[address] | [address];[place] [address] CULTURE | | | NO GROWTH | | | Testing performed at [facility], [address] [place] | | | [address] | | + + + + +---------+ [...] | EXTERNAL LAB | | performed at [facility], [address] [facility], [place] [address] FLUID | | | TP SOURCE PLEURAL FLUID Testing | | | performed at [facility];[address] [facility];[place] [address] | | + + + + +---------+ [...] EXTERNAL LAB | | Testing performed at [facility], [address] [facility], [place], [place] | | | [address] Glucose, Fluid Type PLEURAL FLUID | | | Testing performed at [facility];[address] [facility];[place] [address] | | + + + + +---------+ [...] EXTERNAL LAB | | Testing performed at [facility];[address] [place] [address];[place] [address] | | + + + + +---------+ [...] | | | | [address];[place] [phone] | | | | + + + + + + | RED CELL | 2.50 (L)Comment: Testing | 4.20 - 5.70 | EXTERNAL | | | COUNT | performed at [facility];888 | M/uL | LAB | | | | [address];[place] | | | | | | [phone] | | | | + + + + + + | Hgb | 8.3 (L)Comment: Testing | 13.2 - 17.0 | EXTERNAL | | | | performed at [facility];888 | g/dL | LAB | | | | [address];[place] | | | | | | [address] | | | | + + + + + + | Hematocrit, | 24.1 (L)Comment: Testing | 39.0 - 50.0 % | EXTERNAL | | | POC | performed at [facility];[address] | | LAB | | | | [address];[place] | | | | | | [phone] | | | | + + + + + + | MCV | 96.5Comment: Testing | 80.0 - 100.0 fl | EXTERNAL | | | | performed at [facility];[address] | | LAB | | | | [address];[place] | | | | | | [address] | | | | + + + + + + | MCH | 33.3Comment: Testing | 27.0 - 34.0 pg | EXTERNAL | | | | performed at [facility];[address] | | LAB | | | | [address];[place] | | | | | | [phone] | | | | + + + + + + | MCHC | 34.5Comment: Testing | 32.0 - 35.5 | EXTERNAL | | | | performed at [facility];888 | g/dL | LAB | | | | [address];[place] | | | | | | [address] | | | | + + + + + + | RDW-CV | 42.9Comment: Testing | 37 - 53 fl | EXTERNAL | | | | performed at [facility];[address] | | LAB | | | | [address];[place] | | | | | | [address] | | | | + + + + + + | Platelet | 185Comment: Testing | 150 - 400 K/uL | EXTERNAL | | | Count | performed at [facility];888 | | LAB | | | Plasma | [address];[place] | | | | | | [address] | | | | + + + + + + | MPV | 9.7Comment: Testing | fl | EXTERNAL | | | | performed at [facility];[address] | | LAB | | | | [address];[place] | | | | | | [address] | | | | + + + + + + | Differentia | AUTOMATEDComment: | | EXTERNAL | | | l Type | Testing performed at | | LAB | | | | [facility];[address];[place] [phone] | | | | + + + + + + | % Segmented | 90.04Comment: Testing | % | EXTERNAL | | | | performed at [facility];888 | | LAB | | | Neutrophils | [address];[place] | | | | | | [address] | | | | + + + + + + | % | 2.67Comment: Testing | % | EXTERNAL | | | Lymphocytes | performed at [facility];[address] | | LAB | | | | [address];[place] | | | | | | [address] | | | | + + + + + + | % Monocytes | 4.91Comment: Testing | % | EXTERNAL | | | | performed at [facility];[address] | | LAB | | | | [address];[place] | | | | | | [address] | | | | + + + + + + | % | 2.15Comment: Testing | % | EXTERNAL | | | Eosinophils | performed at [facility];[address] | | LAB | | | | [address];[place] | | | | | | [phone] | | | | + + + + + + | % Basophils | 0.23Comment: Testing | % | EXTERNAL | | | | performed at [facility];[address] | | LAB | | | | [address];[place] | | | | | | [phone] | | | | + + + + + + | Absolute | 10.54 (H)Comment: | 1.90 - 7.40 | EXTERNAL | | | Segmented | Testing performed at | K/uL | LAB | | | Neutrophils | [facility];[address];[place] [phone] | | | | + + + + + + | Absolute | 0.31 (L)Comment: Testing | 1.00 - 3.90 | EXTERNAL | | | Lymphocytes | performed at [facility];888 | K/uL | LAB | | | | [address];[place] | | | | | | [address] | | | | + + + + + + | Absolute | 0.57Comment: Testing | 0.00 - 0.80 | EXTERNAL | | | Monocytes | performed at [facility];888 | K/uL | LAB | | | | [address];[place] | | | | | | [phone] | | | | + + + + + + | Absolute | 0.25Comment: Testing | 0.00 - 0.50 | EXTERNAL | | | Eosinophils | performed at [facility];888 | K/uL | LAB | | | | [address];[place] | | | | | | [address] | | | | + + + + + + | Absolute | 0.03Comment: Testing | 0.00 - 0.10 | EXTERNAL | | | Basophils | performed at [facility];888 | K/uL | LAB | | | | [address];[place] | | | | | | [phone] | | | | + + + + + + | RBC | RBC AND PLT MORPHOLOGY | | EXTERNAL | | | Morphology | APPEAR NORMALComment: | | LAB | | | | Testing performed at | | | | | | [facility];[address];[place] [phone] | | | | + + + + + + | Platelet | ADEQUATEComment: Testing | | EXTERNAL | | | Estimate | performed at [facility];[address] | | LAB | | | | [address];[place] | | | | | | [phone] | | | | + + + + + + | Differentia | SLIDE SCANNED, AGREES | | EXTERNAL | | | l Comments | WITH AUTOMATED | | LAB | | | | RESULTS.Comment: Testing | | | | | | performed at [facility];[address] | | | | | | [address];[place] | | | | | | [phone] | | | | + + + [...] EXTERNAL | | | | performed at [facility];888 | | LAB | | | | [address];[place], [place] | | | | | | [address] | | | | + + + [...] EXTERNAL | | | | performed at [facility];888 | | LAB | | | | [address];[place] | | | | | | [phone] | | | | + + + [...] EXTERNAL | | | | performed at [facility];888 | | LAB | | | | [address];[place], [place] | | | | | | [address] | | | | + + + [...] | | | Total | performed at [facility];888 | | LAB | | | | [address];[place] | | | | | | [phone] | | | | + + + + + + | Albumin | 1.2 (L)Comment: Testing | 3.3 - 4.8 g/dL | EXTERNAL | | | | performed at [facility];[address] | | LAB | | | | [address];[place] | | | | | | [phone] | | | | + + + + + + | Bilirubin | 3.0 (H)Comment: Testing | 0.1 - 1.5 mg/dL | EXTERNAL | | | Total | performed at [facility];[address] | | LAB | | | | [address];[place] | | | | | | [phone] | | | | + + + + + + | Bilirubin | 2.5 (H)Comment: Testing | 0.0 - 0.3 mg/dL | EXTERNAL | | | Direct | performed at [facility];[address] | | LAB | | | | [address];[place] | | | | | | [phone] | | | | + + + + + + | ALP, | 88Comment: Testing | 35 - 115 U/L | EXTERNAL | | | External | performed at [facility];[address] | | LAB | | | | [address];[place] | | | | | | [phone] | | | | + + + + + + | AST | 28Comment: Testing | 10 - 45 U/L | EXTERNAL | | | | performed at [facility];[address] | | LAB | | | | [address];[place] | | | | | | [phone] | | | | + + + + + + | ALT | 82 (H)Comment: Testing | 10 - 65 U/L | EXTERNAL | | | | performed at [facility];[address] | | LAB | | | | [address];[place] | | | | | | [address] | | | | + + + [...] EXTERNAL | | | | performed at [facility];888 | mmol/L | LAB | | | | [address];[place] | | | | | | [phone] | | | | + + + + + + | K | 4.1Comment: Testing | 3.5 - 4.9 | EXTERNAL | | | | performed at [facility];888 | mmol/L | LAB | | | | [address];[place] | | | | | | [phone] | | | | + + + + + + | Cl | 106Comment: Testing | 99 - 109 mmol/L | EXTERNAL | | | | performed at [facility];[address] | | LAB | | | | [address];[place] | | | | | | [phone] | | | | + + + + + + | CO2 | 22 (L)Comment: Testing | 23 - 32 mmol/L | EXTERNAL | | | | performed at [facility];[address] | | LAB | | | | [address];[place] | | | | | | [address] | | | | + + + + + + | Anion Gap | 12Comment: Testing | 5 - 20 mmol/L | EXTERNAL | | | | performed at [facility];[address] | | LAB | | | | [address];[place] | | | | | | [phone] | | | | + + + + + + | Glucose, | 119 (H)Comment: Testing | 65 - 99 mg/dL | EXTERNAL | | | Fasting | performed at [facility];[address] | | LAB | | | | [address];[place] | | | | | | [phone] | | | | + + + + + + | BUN | 27 (H)Comment: Testing | 8 - 25 mg/dL | EXTERNAL | | | | performed at [facility];[address] | | LAB | | | | [address];[place] | | | | | | [phone] | | | | + + + + + + | Creatinine | 0.70Comment: Testing | 0.70 - 1.30 | EXTERNAL | | | | performed at [facility];888 | mg/dL | LAB | | | | [address];[place] | | | | | | [address] | | | | + + + + + + | BUN/Creatin | 38Comment: Testing | | EXTERNAL | | | ine Ratio | performed at [facility];888 | | LAB | | | | [address];[place] | | | | | | [phone] | | | | + + + + + + | Calcium | 7.1 (L)Comment: Testing | 8.5 - 10.5 | EXTERNAL | | | | performed at [facility];888 | mg/dL | LAB | | | | [address];[place] | | | | | | [phone] | | | | + + + [...] | | | | | | at [facility];[address];[place] [phone] | | | | + + + [...] EXTERNAL | | | | performed at [facility];888 | mmol/L | LAB | | | | [address];[place], [place] | | | | | | [address] | | | | + + + [...] Jan 20 2015 4:36AM Referring Provider Line: [phone] | | | ID: [id number] | | [...] 2015 4:36AM Referring | | Provider Line: [id number] ID: [id number] | |Lungs/Pleura: Opacity in the [...] 20 2015 4:36AM Referring Provider Line: [phone] ID: [id number] | + + POC Glucose (01/20/2015 12:38 AM PDT) + + + + + + | Component | Value | Ref Range | Performed | Pathologist | | | | | At | Signature | + + + + + + | Glucose, | 130 (H)Comment: Testing | 65 - 99 mg/dL | EXTERNAL | | | Fingerstick | performed at [facility];8 | | LAB | | | | [address];[place], [place] | | | | | | [address] | | | | + + + [...] | | | Fingerstick | performed at [facility];[address] | | LAB | | | | [address];[place] | | | | | | [address] | | | | + + + [...] | | | Fingerstick | performed at [facility];[address] | | LAB | | | | [address];[place] | | | | | | [address] | | | | + + + [...] | | | Fingerstick | performed at [facility];88 | | LAB | | | | [address];[place] | | | | | | [phone] | | | | + + + [...] K/uL | LAB | | | | [facility];[address];[place] [phone] | | | | + + + + + + | RED CELL | 2.48 (L)Comment: Testing | 4.20 - 5.70 | EXTERNAL | | | COUNT | performed at [facility];888 | M/uL | LAB | | | | [address];[place] | | | | | | [phone] | | | | + + + + + + | Hgb | 8.4 (L)Comment: Testing | 13.2 - 17.0 | EXTERNAL | | | | performed at [facility];888 | g/dL | LAB | | | | [address];[place] | | | | | | [phone] | | | | + + + + + + | Hematocrit, | 24.0 (L)Comment: Testing | 39.0 - 50.0 % | EXTERNAL | | | POC | performed at [facility];[address] | | LAB | | | | [address];[place] | | | | | | [address] | | | | + + + + + + | MCV | 96.8Comment: Testing | 80.0 - 100.0 fl | EXTERNAL | | | | performed at [facility];[address] | | LAB | | | | [address];[place] | | | | | | [address] | | | | + + + + + + | MCH | 33.6Comment: Testing | 27.0 - 34.0 pg | EXTERNAL | | | | performed at [facility];[address] | | LAB | | | | [address];[place] | | | | | | [phone] | | | | + + + + + + | MCHC | 34.8Comment: Testing | 32.0 - 35.5 | EXTERNAL | | | | performed at [facility];888 | g/dL | LAB | | | | [address];[place] | | | | | | [phone] | | | | + + + + + + | RDW-CV | 44.6Comment: Testing | 37 - 53 fl | EXTERNAL | | | | performed at [facility];[address] | | LAB | | | | [address];[place] | | | | | | [address] | | | | + + + + + + | Platelet | 144 (L)Comment: Testing | 150 - 400 K/uL | EXTERNAL | | | Count | performed at [facility];888 | | LAB | | | Plasma | [address];[place] | | | | | | [address] | | | | + + + + + + | MPV | 9.9Comment: Testing | fl | EXTERNAL | | | | performed at [facility];[address] | | LAB | | | | [address];[place] | | | | | | [phone] | | | | + + + + + + | Differentia | MANUALComment: Testing | | EXTERNAL | | | l Type | performed at [facility];[address] | | LAB | | | | [address];[place] | | | | | | [id number] | | | | + + + + + + | Segmented | 85Comment: Testing | % | EXTERNAL | | | Neutrophils | performed at [facility];888 | | LAB | | | Manual | [address];[place] | | | | | | [id number] | | | | + + + + + + | % Bands | 2Comment: Testing | % | EXTERNAL | | | | performed at [facility];888 | | LAB | | | | [address];[place] | | | | | | [id number] | | | | + + + + + + | Lymphocytes | 6Comment: Testing | % | EXTERNAL | | | Manual | performed at [facility];[address] | | LAB | | | | [address];[place] | | | | | | [address] | | | | + + + + + + | Monocytes | 6Comment: Testing | % | EXTERNAL | | | Manual | performed at [facility];888 | | LAB | | | | [address];[place] | | | | | | [id number] | | | | + + + + + + | Eosinophils | 1Comment: Testing | % | EXTERNAL | | | Manual | performed at [facility];[address] | | LAB | | | | [address];[place] | | | | | | [id number] | | | | + + + + + + | Absolute | 9.80 (H)Comment: Testing | 1.90 - 7.40 | EXTERNAL | | | Neutrophils | performed at [facility];888 | K/uL | LAB | | | | [address];[place] | | | | | | [id number] | | | | + + + + + + | Bands | 0.23 (H)Comment: Testing | 0.00 - 0.20 | EXTERNAL | | | Manual | performed at [facility];888 | K/uL | LAB | | | | [address];[place] | | | | | | [address] | | | | + + + + + + | Absolute | 0.69 (L)Comment: Testing | 1.00 - 3.90 | EXTERNAL | | | Lymphocytes | performed at [facility];888 | K/uL | LAB | | | | [address];[place] | | | | | | [address] | | | | + + + + + + | Absolute | 0.69Comment: Testing | 0.00 - 0.80 | EXTERNAL | | | Monocytes | performed at [facility];888 | K/uL | LAB | | | | [address];[place] | | | | | | [address] | | | | + + + + + + | Absolute | 0.12Comment: Testing | 0.00 - 0.50 | EXTERNAL | | | Eosinophils | performed at MEDICAL [facility];[address] | K/uL | LAB | | | | [address];[place] | | | | | | [address] | | | | + + + + + + | Platelet | DECREASEDComment: | | EXTERNAL | | | Estimate | Testing performed at | | LAB | | | | [facility];[address] | | | [address];[place] [address] | | | | + + + + + + | RBC | RBC AND PLT MORPHOLOGY | | EXTERNAL | | | Morphology | APPEAR NORMALComment: | | LAB | | | | Testing performed at | | | | | | [facility];[address] [facility] | | | | | | [facility];[place] [address] | | | | + + + [...] | | | es | performed at [facility] | | LAB | | | | Tony [facility];[place], [place] | | | | | | [address] | | | | + + + [...] EXTERNAL | | | | performed at [facility];[address] | | LAB | | | | [address];[place], [place] | | | | | | [address] | | | | + + + [...] EXTERNAL | | | | performed at [facility];888 | | LAB | | | | [address];[place], [place] | | | | | | [address] | | | | + + + [...] EXTERNAL | | | | performed at [facility];888 | | LAB | | | | [address];[place], [place] | | | | | | [address] | | | | + + + [...] | | | Total | performed at [facility];888 | | LAB | | | | [address];[place] | | | | | | [address] | | | | + + + + + + | Albumin | 1.1 (L)Comment: Testing | 3.3 - 4.8 g/dL | EXTERNAL | | | | performed at [facility];888 | | LAB | | | | [address];[place] | | | | | | [address] | | | | + + + + + + | Bilirubin | 3.0 (H)Comment: Testing | 0.1 - 1.5 mg/dL | EXTERNAL | | | Total | performed at [facility];[address] | | LAB | | | | [address];[place] | | | | | | [address] | | | | + + + + + + | Bilirubin | 2.3 (H)Comment: Testing | 0.0 - 0.3 mg/dL | EXTERNAL | | | Direct | performed at [facility];[address] | | LAB | | | | [address];[place] | | | | | | [address] | | | | + + + + + + | ALP, | 90Comment: Testing | 35 - 115 U/L | EXTERNAL | | | External | performed at [facility];[address] | | LAB | | | | [address];[place] | | | | | | [address] | | | | + + + + + + | AST | 26Comment: Testing | 10 - 45 U/L | EXTERNAL | | | | performed at [facility];[address] | | LAB | | | | [address];[place] | | | | | | [address] | | | | + + + + + + | ALT | 113 (H)Comment: Testing | 10 - 65 U/L | EXTERNAL | | | | performed at [facility];[address] | | LAB | | | | [address];[place] | | | | | | [address] | | | | + + + [...] EXTERNAL | | | | performed at [facility];888 | mmol/L | LAB | | | | [address];[place] | | | | | | [address] | | | | + + + + + + | K | 4.2Comment: Testing | 3.5 - 4.9 | EXTERNAL | | | | performed at [facility];888 | mmol/L | LAB | | | | [address];[place] | | | | | | [address] | | | | + + + + + + | Cl | 106Comment: Testing | 99 - 109 mmol/L | EXTERNAL | | | | performed at [facility];[address] | | LAB | | | | [address];[place] | | | | | | [address] | | | | + + + + + + | CO2 | 26Comment: Testing | 23 - 32 mmol/L | EXTERNAL | | | | performed at [facility];[address] | | LAB | | | | [address];[place] | | | | | | [address] | | | | + + + + + + | Anion Gap | 10Comment: Testing | 5 - 20 mmol/L | EXTERNAL | | | | performed at [facility];[address] | | LAB | | | | [address];[place] | | | | | | [address] | | | | + + + + + + | Glucose, | 128 (H)Comment: Testing | 65 - 99 mg/dL | EXTERNAL | | | Fasting | performed at [facility];[address] | | LAB | | | | [address];[place] | | | | | | [address] | | | | + + + + + + | BUN | 23Comment: Testing | 8 - 25 mg/dL | EXTERNAL | | | | performed at [facility];[address] | | LAB | | | | [address];[place] | | | | | | [address] | | | | + + + + + + | Creatinine | 0.67 (L)Comment: Testing | 0.70 - 1.30 | EXTERNAL | | | | performed at [facility];888 | mg/dL | LAB | | | | [address];[place] | | | | | | [address] | | | | + + + + + + | BUN/Creatin | 35Comment: Testing | | EXTERNAL | | | ine Ratio | performed at [facility];[address] | | LAB | | | | [address];[place] | | | | | | [address] | | | | + + + + + + | Calcium | 7.2 (L)Comment: Testing | 8.5 - 10.5 | EXTERNAL | | | | performed at [facility];888 | mg/dL | LAB | | | | [facility] | | | | | | [address] | | | | + + + [...] | | | | | | at [facility];[address] | | | | | | [address];[place] [address] | | | | + + + [...] | | | Fingerstick | performed at [facility] | | LAB | | | | [address];[place], [place] | | | | | | [address] | | | | + + + [...] | | | Fingerstick | performed at [facility];[address] | | LAB | | | | [address];[place], [place] | | | | | | [address] | | | | + + + [...] | | | Fingerstick | performed at [facility];[address] | | LAB | | | | [address];[place], [place] | | | | | | [address] | | | | + + + [...] | | | Fingerstick | performed at [facility];888 | | LAB | | | | [address];[place] | | | | | | [address] | | | | + + [...] K/uL | LAB | | | | [facility];[address] | | | | | | [address];[place] [address] | | | | + + + + + + | RED CELL | 2.79 (L)Comment: Testing | 4.20 - 5.70 | EXTERNAL | | | COUNT | performed at [facility];[address] | M/uL | LAB | | | | [address];[place] | | | | | | [address] | | | | + + + + + + | Hgb | 9.0 (L)Comment: Testing | 13.2 - 17.0 | EXTERNAL | | | | performed at [facility];888 | g/dL | LAB | | | | [address];[place] | | | | | | [address] | | | | + + + + + + | Hematocrit, | 27.5 (L)Comment: Testing | 39.0 - 50.0 % | EXTERNAL | | | POC | performed at [facility];[address] | | LAB | | | | [address];[place] | | | | | | [address] | | | | + + + + + + | MCV | 98.3Comment: Testing | 80.0 - 100.0 fl | EXTERNAL | | | | performed at [facility];[address] | | LAB | | | | [address];[place] | | | | | | [address] | | | | + + + + + + | MCH | 32.2Comment: Testing | 27.0 - 34.0 pg | EXTERNAL | | | | performed at [facility];[address] | | LAB | | | | [address];[place] | | | | | | [address] | | | | + + + + + + | MCHC | 32.7Comment: Testing | 32.0 - 35.5 | EXTERNAL | | | | performed at [facility];888 | g/dL | LAB | | | | [address];[place] | | | | | | [address] | | | | + + + + + + | RDW-CV | 45.5Comment: Testing | 37 - 53 fl | EXTERNAL | | | | performed at [facility];[address] | | LAB | | | | [address];[place] | | | | | | [address] | | | | + + + + + + | Platelet | 132 (L)Comment: Testing | 150 - 400 K/uL | EXTERNAL | | | Count | performed at [facility];888 | | LAB | | | Plasma | [address];[place] | | | | | | [address] | | | | + + + + + + | MPV | 9.9Comment: Testing | fl | EXTERNAL | | | | performed at [facility];[address] | | LAB | | | | [address];[place] | | | | | | [address] | | | | + + + + + + | Differentia | MANUALComment: Testing | | EXTERNAL | | | l Type | performed at [facility];[address] | | LAB | | | | [address];[place] | | | | | | [address] | | | | + + + + + + | Nucleated | 1 (H)Comment: Testing | /100WBC | EXTERNAL | | | Red Blood | performed at [facility];888 | | LAB | | | Cells | [address];[place] | | | | | | [address] | | | | + + + + + + | Segmented | 87Comment: Testing | % | EXTERNAL | | | Neutrophils | performed at [facility];[address] | | LAB | | | Manual | [address];[place] | | | | | | [address] | | | | + + + + + + | % | 3Comment: Testing | % | EXTERNAL | | | Metamyelocy | performed at [facility];[address] | | LAB | | | romaine | [address];[place] | | | | | | [address] | | | | + + + + + + | % | 2Comment: Testing | % | EXTERNAL | | | Myelocytes | performed at [facility];[address] | | LAB | | | | [address];[place] | | | | | | [address] | | | | + + + + + + | Lymphocytes | 4Comment: Testing | % | EXTERNAL | | | Manual | performed at [facility];[address] | | LAB | | | | [address];[place] | | | | | | [address] | | | | + + + + + + | Monocytes | 3Comment: Testing | % | EXTERNAL | | | Manual | performed at [facility];[address] | | LAB | | | | [address];[place] | | | | | | [address] | | | | + + + + + + | Eosinophils | 1Comment: Testing | % | EXTERNAL | | | Manual | performed at [facility];[address] | | LAB | | | | [address];[place] | | | | | | [address] | | | | + + + + + + | Absolute | 11.85 (H)Comment: | 1.90 - 7.40 | EXTERNAL | | | Neutrophils | Testing performed at | K/uL | LAB | | | | [facility];[address];[place] [address] | | | | + + + + + + | Absolute | 0.41 (H)Comment: Testing | K/uL | EXTERNAL | | | Metamyelocy | performed at [facility];[address] | | LAB | | | [address] | [address];[place] | | | | | | [address] | | | | + + + + + + | Absolute | 0.27 (H)Comment: Testing | K/uL | EXTERNAL | | | Myelocytes | performed at [facility];[address] | | LAB | | | | [address];[place] | | | | | | [address] | | | | + + + + + + | Absolute | 0.55 (L)Comment: Testing | 1.00 - 3.90 | EXTERNAL | | | Lymphocytes | performed at [facility];[address] | K/uL | LAB | | | | [address];[place] | | | | | | [address] | | | | + + + + + + | Absolute | 0.41Comment: Testing | 0.00 - 0.80 | EXTERNAL | | | Monocytes | performed at [facility];[address] | K/uL | LAB | | | | [address];[place] | | | | | | [address] | | | | + + + + + + | Absolute | 0.14Comment: Testing | 0.00 - 0.50 | EXTERNAL | | | Eosinophils | performed at [facility];[address] | K/uL | LAB | | | | [address];[place] | | | | | | [address] | | | | + + + + + + | RBC | RBC AND PLT MORPHOLOGY | | EXTERNAL | | | Morphology | APPEAR NORMALComment: | | LAB | | | | Testing performed at | | | | | | [facility];[address] | | | | | | [facility];[place] [address] | | | | + + + [...] | | | es | performed at [facility], [address] | | LAB | | | | [address], | | | | | | [place] [address] | | | | + + + [...] EXTERNAL | | | | performed at [facility];[address] | | LAB | | | | [facility];[place], [place] | | | | | | [address] | | | | + + + [...] EXTERNAL | | | | performed at [facility] | | LAB | | | | [address];[place] | | | | | | [address] | | | | + + + [...] EXTERNAL | | | | performed at [facility];[address] | | LAB | | | | [address];[place], [place] | | | | | | [address] | | | | + + + [...] | | Last Dose | performed at [facility];[address] | | LAB | | | | [address];[place] | | | | | | [address] | | | | + + + + + + | Time of | UNKNOWNComment: Testing | | EXTERNAL | | | Last Dose | performed at [facility];[address] | | LAB | | | | [address];[place] | | | | | | [address] | | | | + + + + + + | Digoxin | 0.8 (L)Comment: Testing | 0.90 - 2.00 | EXTERNAL | | | level | performed at [facility];888 | ng/mL | LAB | | | | [address];[place] | | | | | | [address] | | | | + + + [...] | | | Total | performed at [facility];[address] | | LAB | | | | [address];[place] | | | | | | [address] | | | | + + + + + + | Albumin | 1.2 (L)Comment: Testing | 3.3 - 4.8 g/dL | EXTERNAL | | | | performed at [facility];[address] | | LAB | | | | [address];[place] | | | | | | [address] | | | | + + + + + + | Bilirubin | 3.0 (H)Comment: Testing | 0.1 - 1.5 mg/dL | EXTERNAL | | | Total | performed at [facility];[address] | | LAB | | | | [address];[place] | | | | | | [address] | | | | + + + + + + | Bilirubin | 2.5 (H)Comment: Testing | 0.0 - 0.3 mg/dL | EXTERNAL | | | Direct | performed at [facility];[address] | | LAB | | | | [address];[place] | | | | | | [address] | | | | + + + + + + | ALP, | 111Comment: Testing | 35 - 115 U/L | EXTERNAL | | | External | performed at [facility];[address] | | LAB | | | | [address];[place] | | | | | | [address] | | | | + + + + + + | AST | 55 (H)Comment: Testing | 10 - 45 U/L | EXTERNAL | | | | performed at [facility];[address] | | LAB | | | | [address];[place] | | | | | | [address] | | | | + + + + + + | ALT | 197 (H)Comment: Testing | 10 - 65 U/L | EXTERNAL | | | | performed at [facility];888 | | LAB | | | | [address];[place], [place] | | | | | | [address] | | | | + + + [...] EXTERNAL | | | | performed at [facility];888 | mmol/L | LAB | | | | [address];[place] | | | | | | [address] | | | | + + + + + + | K | 4.4Comment: Testing | 3.5 - 4.9 | EXTERNAL | | | | performed at [facility];888 | mmol/L | LAB | | | | [address];[place] | | | | | | [address] | | | | + + + + + + | Cl | 108Comment: Testing | 99 - 109 mmol/L | EXTERNAL | | | | performed at [facility];[address] | | LAB | | | | [address];[place] | | | | | | [address] | | | | + + + + + + | CO2 | 27Comment: Testing | 23 - 32 mmol/L | EXTERNAL | | | | performed at [facility];[address] | | LAB | | | | [address];[place] | | | | | | [address] | | | | + + + + + + | Anion Gap | 10Comment: Testing | 5 - 20 mmol/L | EXTERNAL | | | | performed at [facility];[address] | | LAB | | | | [address];[place] | | | | | | [address] | | | | + + + + + + | Glucose, | 129 (H)Comment: Testing | 65 - 99 mg/dL | EXTERNAL | | | Fasting | performed at [facility];[address] | | LAB | | | | [address];[place] | | | | | | [address] | | | | + + + + + + | BUN | 25Comment: Testing | 8 - 25 mg/dL | EXTERNAL | | | | performed at [facility];[address] | | LAB | | | | [address];[place] | | | | | | [address] | | | | + + + + + + | Creatinine | 0.61 (L)Comment: Testing | 0.70 - 1.30 | EXTERNAL | | | | performed at [facility];888 | mg/dL | LAB | | | | [address];[place] | | | | | | [address] | | | | + + + + + + | BUN/Creatin | 41Comment: Testing | | EXTERNAL | | | ine Ratio | performed at [facility];[address] | | LAB | | | | [address];[place] | | | | | | [address] | | | | + + + + + + | Calcium | 7.4 (L)Comment: Testing | 8.5 - 10.5 | EXTERNAL | | | | performed at [facility];888 | mg/dL | LAB | | | | [address];[place] | | | | | | [address] | | | | + + + [...] | | | | | | at [facility];[address] [place] [address] | | | | | | [facility];[place] [address] | | | | + + + [...] | | | Fingerstick | performed at [facility];888 | | LAB | | | | [address];[place] | | | | | | [address] | | | | + + + [...] the kavitha. A nasogastric tube is seen | | [...] RODS | | | Testing performed at [facility], [address] | | | [place] [address] | | + + + + +---------+ [...] | | | Fingerstick | performed at [facility];888 | | LAB | | | | [address];[place] | | | | | | [address] | | | | + + + [...] | + + + | JOSE EATON [place] HEPATOBILIARY SCAN WITH CCK 01/17/2015 2:31 PM [...] | | | Fingerstick | performed at [facility] | | LAB | | | | [address];[place], [place] | | | | | | [address] | | | | + + + [...] | | | Fingerstick | performed at [facility];[address] | | LAB | | | | [address];[place] | | | | | | [address] | | | | + + + [...] | | | Fingerstick | performed at [facility];888 | | LAB | | | | [address];[place] | | | | | | [address] | | | | + + + [...] | | | | [place] [address] | | | | + + + + + + | RED CELL | 2.78 (L)Comment: Testing | 4.20 - 5.70 | EXTERNAL | | | COUNT | performed at [facility], [address] | M/u[address] | LAB | | | | [address], | | | | | | [place] [address] | | | | + + + + + + | Hgb | 9.2 (L)Comment: Testing | 13.2 - 17.0 | EXTERNAL | | | | performed at [facility], [address] | g/dL | LAB | | | | [address], | | | | | | [place] [address] | | | | + + + + + + | Hematocrit, | 27.1 (L)Comment: Testing | 39.0 - 50.0 % | EXTERNAL | | | POC | performed at [facility], [address] | | LAB | | | | [address], | | | | | | [place] [address] | | | | + + + + + + | MCV | 97.5Comment: Testing | 80.0 - 100.0 fl | EXTERNAL | | | | performed at [facility], [address] | | LAB | | | | [address], | | | | | | [place] [address] | | | | + + + + + + | MCH | 33.1Comment: Testing | 27.0 - 34.0 pg | EXTERNAL | | | | performed at [facility], [address] | | LAB | | | | [address], | | | | | | [place] [address] | | | | + + + + + + | MCHC | 33.9Comment: Testing | 32.0 - 35.5 | EXTERNAL | | | | performed at [facility], [address] | g/dL | LAB | | | | [address], | | | | | | [place] [address] | | | | + + + + + + | RDW-CV | 42.9Comment: Testing | 37 - 53 fl | EXTERNAL | | | | performed at [facility], [address] | | LAB | | | | [address], | | | | | | [place] [address] | | | | + + + + + + | Platelet | 110 (L)Comment: Testing | 150 - 400 K/uL | EXTERNAL | | | Count | performed at [facility], [address] | | LAB | | | Plasma | [address], | | | | | | [place] [address] | | | | + + + + + + | MPV | 10.6Comment: Testing | fl | EXTERNAL | | | | performed at [facility], [address] | | LAB | | | | [address], | | | | | | [place] [address] | | | | + + + + + + | Differentia | MANUALComment: Testing | | EXTERNAL | | | l Type | performed at [facility], [address] | | LAB | | | | [address], | | | | | | [place] [address] | | | | + + + + + + | Segmented | 87Comment: Testing | % | EXTERNAL | | | Neutrophils | performed at [facility], [address] | | LAB | | | Manual | [address], | | | | | | [place] [address] | | | | + + + + + + | % Bands | 3Comment: Testing | % | EXTERNAL | | | | performed at [facility], [address] | | LAB | | | | [address], | | | | | | [place] [address] | | | | + + + + + + | % | 1Comment: Testing | % | EXTERNAL | | | Metamyelocy | performed at [facility], [address] | | LAB | | | [address] | [address], | | | | | | [place] [address] | | | | + + + + + + | % | 1Comment: Testing | % | EXTERNAL | | | Myelocytes | performed at [facility], [address] | | LAB | | | | [address], | | | | | | [place] [address] | | | | + + + + + + | Lymphocytes | 4Comment: Testing | % | EXTERNAL | | | Manual | performed at [facility], [address] | | LAB | | | | [address], | | | | | | [place] [address] | | | | + + + + + + | Eosinophils | 4Comment: Testing | % | EXTERNAL | | | Manual | performed at [facility], [address] | | LAB | | | | [address], | | | | | | [place] [address] | | | | + + + + + + | Absolute | 9.46 (H)Comment: Testing | 1.90 - 7.40 | EXTERNAL | | | Neutrophils | performed at [facility], [address] | K/uL | LAB | | | | [address], | | | | | | [place] [address] | | | | + + + + + + | Bands | 0.33 (H)Comment: Testing | 0.00 - 0.20 | EXTERNAL | | | Manual | performed at [facility], [address] | K/uL | LAB | | | | [address], | | | | | | [place] [address] | | | | + + + + + + | Absolute | 0.11 (H)Comment: Testing | K/uL | EXTERNAL | | | Metamyelocy | performed at [facility], [address] | | LAB | | | [address] | [address], | | | | | | [place] [address] | | | | + + + + + + | Absolute | 0.11 (H)Comment: Testing | K/uL | EXTERNAL | | | Myelocytes | performed at [facility], [address] | | LAB | | | | [address], | | | | | | [place] [address] | | | | + + + + + + | Absolute | 0.43 (L)Comment: Testing | 1.00 - 3.90 | EXTERNAL | | | Lymphocytes | performed at [facility], [address] | K/uL | LAB | | | | [address], | | | | | | [place] [address] | | | | + + + + + + | Absolute | 0.43Comment: Testing | 0.00 - 0.50 | EXTERNAL | | | Eosinophils | performed at [facility], [address] | K/uL | LAB | | | | [address], | | | | | | [place] [address] | | | | + + + + + + | RBC | NORMAL RBC MORPHComment: | | EXTERNAL | | | Morphology | NORMAL PLT MORPHTesting | | LAB | | | | performed at [facility], [address] | | | | | [address], | | | | | | [place] [address] | | | | + + + [...] EXTERNAL | | | | performed at [facility], [address] | | LAB | | | | [facility], | | | | | | [place] [address] | | | | + + + [...] EXTERNAL | | | | performed at [facility], [address] | | LAB | | | | [address], | | | | | | [place] [address] | | | | + + + [...] | | LAB | | | | [facility];[address] | | | | | | [facility];[place] [address] | | | | + + + [...] EXTERNAL | | | | performed at [facility];[address] | | LAB | | | | [address];[place] | | | | | | [phone] | | | | + + + [...] | | | Total | performed at [facility];[address] | | LAB | | | | [address];[place] | | | | | | [phone] | | | | + + + + + + | Albumin | 1.3 (L)Comment: Testing | 3.3 - 4.8 g/dL | EXTERNAL | | | | performed at [facility];[address] | | LAB | | | | [address];[place] | | | | | | [phone] | | | | + + + + + + | Bilirubin | 3.5 (H)Comment: Testing | 0.1 - 1.5 mg/dL | EXTERNAL | | | Total | performed at [facility];[address] | | LAB | | | | [address];[place] | | | | | | [phone] | | | | + + + + + + | Bilirubin | 2.7 (H)Comment: Testing | 0.0 - 0.3 mg/dL | EXTERNAL | | | Direct | performed at [facility];[address] | | LAB | | | | [address];[place] | | | | | | [phone] | | | | + + + + + + | ALP, | 125 (H)Comment: Testing | 35 - 115 U/L | EXTERNAL | | | External | performed at [facility];[address] | | LAB | | | | [address];[place] | | | | | | [phone] | | | | + + + + + + | AST | 173 (H)Comment: Testing | 10 - 45 U/L | EXTERNAL | | | | performed at [facility];[address] | | LAB | | | | [address];[place] | | | | | | [phone] | | | | + + + + + + | ALT | 340 (H)Comment: Testing | 10 - 65 U/L | EXTERNAL | | | | performed at [facility];[address] | | LAB | | | | [address];[place] | | | | | | [phone] | | | | + + + [...] | | | | [place] [address] | | | | + + + + + + | K | 4.0Comment: Testing | 3.5 - 4.9 | EXTERNAL | | | | performed at [facility], [address] | mmol/L | LAB | | | | [address], | | | | | | [place] [address] | | | | + + + + + + | Cl | 105Comment: Testing | 99 - 109 mmol/L | EXTERNAL | | | | performed at [facility], [address] | | LAB | | | | [address], | | | | | | [place] [address] | | | | + + + + + + | CO2 | 30Comment: Testing | 23 - 32 mmol/L | EXTERNAL | | | | performed at [facility], [address] | | LAB | | | | [address], | | | | | | [place] [address] | | | | + + + + + + | Anion Gap | 8Comment: Testing | 5 - 20 mmol/L | EXTERNAL | | | | performed at [facility], [address] | | LAB | | | | [address], | | | | | | [place] [address] | | | | + + + + + + | Glucose, | 104 (H)Comment: Testing | 65 - 99 mg/dL | EXTERNAL | | | Fasting | performed at [facility], [address] | | LAB | | | | [address], | | | | | | [place] [address] | | | | + + + + + + | BUN | 31 (H)Comment: Testing | 8 - 25 mg/dL | EXTERNAL | | | | performed at [facility], [address] | | LAB | | | | [address], | | | | | | [place] [address] | | | | + + + + + + | Creatinine | 0.64 (L)Comment: Testing | 0.70 - 1.30 | EXTERNAL | | | | performed at [facility], [address] | mg/dL | LAB | | | | [address], | | | | | | [place] [address] | | | | + + + + + + | BUN/Creatin | 48Comment: Testing | | EXTERNAL | | | ine Ratio | performed at [facility], [address] | | LAB | | | | [address], | | | | | | [place] [address] | | | | + + + + + + | Calcium | 7.8 (L)Comment: Testing | 8.5 - 10.5 | EXTERNAL | | | | performed at [facility], [address] | mg/dL | LAB | | | | [address], | | | | | | [place] [address] | | | | + + [...] | | | | [place] [address] | | | | + + + [...] | | | Fingerstick | performed at [facility];[address] | | LAB | | | | [address];[place], [place] | | | | | | [address] | | | | + + + [...] | | | Fingerstick | performed at [facility] | | LAB | | | | [address];[place] | | | | | | [address] | | | | + + + [...] | | | Fingerstick | performed at [facility];888 | | LAB | | | | [address];[place] | | | | | | [address] | | | | + + + [...] | | | Fingerstick | performed at [facility];888 | | LAB | | | | [address];[place] | | | | | | [address] | | | | + + + [...] | | | Fingerstick | performed at [facility];[address] | | LAB | | | | [address];[place], [place] | | | | | | [address] | | | | + + + [...] | | | Fingerstick | performed at [facility];[address] | | LAB | | | | [address];[place], [place] | | | | | | [address] | | | | + + + [...] | | | Fingerstick | performed at [facility];[address] | | LAB | | | | [address];[place], [place] | | | | | | [address] | | | | + + + [...] EXTERNAL | | | | performed at [facility];888 | K/uL | LAB | | | | [address];[place] | | | | | | [address] | | | | + + + + + + | RED CELL | 2.90 (L)Comment: Testing | 4.20 - 5.70 | EXTERNAL | | | COUNT | performed at [facility];888 | M/uL | LAB | | | | [address];[place] | | | | | | [address] | | | | + + + + + + | Hgb | 9.8 (L)Comment: Testing | 13.2 - 17.0 | EXTERNAL | | | | performed at [facility];888 | g/dL | LAB | | | | [address];[place] | | | | | | [address] | | | | + + + + + + | Hematocrit, | 28.3 (L)Comment: Testing | 39.0 - 50.0 % | EXTERNAL | | | POC | performed at [facility];[address] | | LAB | | | | [address];[place] | | | | | | [address] | | | | + + + + + + | MCV | 97.7Comment: Testing | 80.0 - 100.0 fl | EXTERNAL | | | | performed at [facility];[address] | | LAB | | | | [address];[place] | | | | | | [address] | | | | + + + + + + | MCH | 33.6Comment: Testing | 27.0 - 34.0 pg | EXTERNAL | | | | performed at [facility];[address] | | LAB | | | | [address];[place] | | | | | | [address] | | | | + + + + + + | MCHC | 34.4Comment: Testing | 32.0 - 35.5 | EXTERNAL | | | | performed at [facility];888 | g/dL | LAB | | | | [address];[place] | | | | | | [address] | | | | + + + + + + | RDW-CV | 44.2Comment: Testing | 37 - 53 fl | EXTERNAL | | | | performed at [facility];[address] | | LAB | | | | [address];[place] | | | | | | [address] | | | | + + + + + + | Platelet | 127 (L)Comment: Testing | 150 - 400 K/uL | EXTERNAL | | | Count | performed at [facility];[address] | | LAB | | | Plasma | [address];[place] | | | | | | [address] | | | | + + + + + + | MPV | 9.7Comment: Testing | fl | EXTERNAL | | | | performed at [facility];[address] | | LAB | | | | [address];[place] | | | | | | [address] | | | | + + + + + + | Differentia | MANUALComment: Testing | | EXTERNAL | | | l Type | performed at [facility];[address] | | LAB | | | | [address];[place] | | | | | | [address] | | | | + + + + + + | Segmented | 83Comment: Testing | % | EXTERNAL | | | Neutrophils | performed at [facility];[address] | | LAB | | | Manual | [address];[place] | | | | | | [address] | | | | + + + + + + | % Bands | 2Comment: Testing | % | EXTERNAL | | | | performed at [facility];[address] | | LAB | | | | [address];[place] | | | | | | [address] | | | | + + + + + + | Lymphocytes | 2Comment: Testing | % | EXTERNAL | | | Manual | performed at [facility];[address] | | LAB | | | | [address];[place] | | | | | | [address] | | | | + + + + + + | Monocytes | 11Comment: Testing | % | EXTERNAL | | | Manual | performed at [facility];[address] | | LAB | | | | [address];[place] | | | | | | [phone] | | | | + + + + + + | Eosinophils | 2Comment: Testing | % | EXTERNAL | | | Manual | performed at [facility];[address] | | LAB | | | | [address];[place] | | | | | | [address] | | | | + + + + + + | Absolute | 8.96 (H)Comment: Testing | 1.90 - 7.40 | EXTERNAL | | | Neutrophils | performed at [facility];888 | K/uL | LAB | | | | [address];[place] | | | | | | [address] | | | | + + + + + + | Bands | 0.22 (H)Comment: Testing | 0.00 - 0.20 | EXTERNAL | | | Manual | performed at [facility];888 | K/uL | LAB | | | | [address];[place] | | | | | | [address] | | | | + + + + + + | Absolute | 0.22 (L)Comment: Testing | 1.00 - 3.90 | EXTERNAL | | | Lymphocytes | performed at [facility];888 | K/uL | LAB | | | | [address];[place] | | | | | | [address] | | | | + + + + + + | Absolute | 1.19 (H)Comment: Testing | 0.00 - 0.80 | EXTERNAL | | | Monocytes | performed at [facility];888 | K/uL | LAB | | | | [address];[place] | | | | | | [address] | | | | + + + + + + | Absolute | 0.22Comment: Testing | 0.00 - 0.50 | EXTERNAL | | | Eosinophils | performed at [facility];888 | K/uL | LAB | | | | [address];[place] | | | | | | [address] | | | | + + + + + + | RBC | RBC AND PLT MORPHOLOGY | | EXTERNAL | | | Morphology | APPEAR NORMALComment: | | LAB | | | | Testing performed at | | | | | | [facility];[address] [place] [address] | | | | | | [facility];[place] [address] | | | | + + + [...] [address];[place] [address] | | | | + + + [...] EXTERNAL | | | | performed at [facility];888 | mmol/L | LAB | | | | [address];[place], [place] | | | | | | [address] | | | | + + + [...] EXTERNAL | | | | performed at [facility];8 | | LAB | | | | [address];[place] | | | | | | [address] | | | | + + + [...] | | | Total | performed at [facility];[address] | | LAB | | | | [address];[place] | | | | | | [address] | | | | + + + + + + | Albumin | 1.4 (L)Comment: Testing | 3.3 - 4.8 g/dL | EXTERNAL | | | | performed at [facility];[address] | | LAB | | | | [address];[place] | | | | | | [address] | | | | + + + + + + | Bilirubin | 5.2 (H)Comment: Testing | 0.1 - 1.5 mg/dL | EXTERNAL | | | Total | performed at [facility];[address] | | LAB | | | | [address];[place] | | | | | | [address] | | | | + + + + + + | Bilirubin | 4.4 (H)Comment: Testing | 0.0 - 0.3 mg/dL | EXTERNAL | | | Direct | performed at [facility];[address] | | LAB | | | | [address];[place] | | | | | | [address] | | | | + + + + + + | ALP, | 131 (H)Comment: Testing | 35 - 115 U/L | EXTERNAL | | | External | performed at [facility];[address] | | LAB | | | | [address];[place] | | | | | | [address] | | | | + + + + + + | AST | 289 (H)Comment: Testing | 10 - 45 U/L | EXTERNAL | | | | performed at [facility];[address] | | LAB | | | | [address];[place] | | | | | | [address] | | | | + + + + + + | ALT | 442 (H)Comment: Testing | 10 - 65 U/L | EXTERNAL | | | | performed at [facility];[address] | | LAB | | | | [address];[place] | | | | | | [address] | | | | + + + [...] | | | Fingerstick | performed at [facility];[address] | | LAB | | | | [address];[place], [place] | | | | | | [address] | | | | + + + [...] EXTERNAL | | | | performed at [facility];888 | mmol/L | LAB | | | | [address];[place], [place] | | | | | | [address] | | | | + + + [...] | | | Fingerstick | performed at [facility];888 | | LAB | | | | [address];[place] | | | | | | [address] | | | | + + + [...] | | | Fingerstick | performed at [facility] | | LAB | | | | [address];[place], [place] | | | | | | [address] | | | | + + + [...] EXTERNAL | | | | performed at [facility];888 | K/uL | LAB | | | | [address];[place], [place] | | | | | | [address] | | | | + + + + + + | RED CELL | 2.87 (L)Comment: Testing | 4.20 - 5.70 | EXTERNAL | | | COUNT | performed at [facility];888 | M/uL | LAB | | | | [address];[place] | | | | | | [address] | | | | + + + + + + | Hgb | 9.4 (L)Comment: Testing | 13.2 - 17.0 | EXTERNAL | | | | performed at [facility];888 | g/dL | LAB | | | | [address];[place] | | | | | | [address] | | | | + + + + + + | Hematocrit, | 27.9 (L)Comment: Testing | 39.0 - 50.0 % | EXTERNAL | | | POC | performed at [facility];[address] | | LAB | | | | [address];[place] | | | | | | [address] | | | | + + + + + + | MCV | 97.5Comment: Testing | 80.0 - 100.0 fl | EXTERNAL | | | | performed at [facility];[address] | | LAB | | | | [address];[place] | | | | | | [address] | | | | + + + + + + | MCH | 32.7Comment: Testing | 27.0 - 34.0 pg | EXTERNAL | | | | performed at [facility];[address] | | LAB | | | | [address];[place] | | | | | | [address] | | | | + + + + + + | MCHC | 33.5Comment: Testing | 32.0 - 35.5 | EXTERNAL | | | | performed at [facility];888 | g/dL | LAB | | | | [address];[place] | | | | | | [address] | | | | + + + + + + | RDW-CV | 43.8Comment: Testing | 37 - 53 fl | EXTERNAL | | | | performed at [facility];[address] | | LAB | | | | [address];[place] | | | | | | [address] | | | | + + + + + + | Platelet | 114 (L)Comment: Testing | 150 - 400 K/uL | EXTERNAL | | | Count | performed at [facility];888 | | LAB | | | Plasma | [address];[place] | | | | | | [address] | | | | + + + + + + | MPV | 9.4Comment: Testing | fl | EXTERNAL | | | | performed at [facility];[address] | | LAB | | | | [address];[place] | | | | | | [address] | | | | + + + + + + | Differentia | MANUALComment: Testing | | EXTERNAL | | | l Type | performed at [facility];[address] | | LAB | | | | [address];[place] | | | | | | [address] | | | | + + + + + + | Segmented | 69Comment: Testing | % | EXTERNAL | | | Neutrophils | performed at [facility];888 | | LAB | | | Manual | [address];[place] | | | | | | [address] | | | | + + + + + + | % Bands | 21Comment: Testing | % | EXTERNAL | | | | performed at [facility];[address] | | LAB | | | | [address];[place] | | | | | | [address] | | | | + + + + + + | Lymphocytes | 3Comment: Testing | % | EXTERNAL | | | Manual | performed at [facility];[address] | | LAB | | | | [address];[place] | | | | | | [address] | | | | + + + + + + | Monocytes | 5Comment: Testing | % | EXTERNAL | | | Manual | performed at [facility];[address] | | LAB | | | | [address];[place] | | | | | | [address] | | | | + + + + + + | Eosinophils | 2Comment: Testing | % | EXTERNAL | | | Manual | performed at [facility];[address] | | LAB | | | | [address];[place] | | | | | | [address] | | | | + + + + + + | Absolute | 6.49Comment: Testing | 1.90 - 7.40 | EXTERNAL | | | Neutrophils | performed at [facility];888 | K/uL | LAB | | | | [address];[place] | | | | | | [address] | | | | + + + + + + | Bands | 1.97 (H)Comment: Testing | 0.00 - 0.20 | EXTERNAL | | | Manual | performed at [facility];888 | K/uL | LAB | | | | [address];[place] | | | | | | [address] | | | | + + + + + + | Absolute | 0.28 (L)Comment: Testing | 1.00 - 3.90 | EXTERNAL | | | Lymphocytes | performed at [facility];888 | K/uL | LAB | | | | [address];[place] | | | | | | [address] | | | | + + + + + + | Absolute | 0.47Comment: Testing | 0.00 - 0.80 | EXTERNAL | | | Monocytes | performed at [facility];888 | K/uL | LAB | | | | [address];[place] | | | | | | [address] | | | | + + + + + + | Absolute | 0.19Comment: Testing | 0.00 - 0.50 | EXTERNAL | | | Eosinophils | performed at [facility];888 | K/uL | LAB | | | | [address];[place] | | | | | | [address] | | | | + + + + + + | Platelet | DECREASEDComment: | | EXTERNAL | | | Estimate | Testing performed at | | LAB | | | | [facility];[address];[place] [address] | | | | + + + + + + | RBC | 1+Comment: GIANT | | EXTERNAL | | | Morphology | PLATELETSNORMAL RBC | | LAB | | | | MORPH1+TOXIC | | | | | | GRANULATIONTesting | | | | | | performed at [facility];[address] | | | | | | [facility];[place], [place] | | | | | | [address] | | | | | | | [...] EXTERNAL | | | | performed at [facility];888 | mmol/L | LAB | | | | [address];[place] | | | | | | [address] | | | | + + + + + + | K | 4.0Comment: Testing | 3.5 - 4.9 | EXTERNAL | | | | performed at [facility];888 | mmol/L | LAB | | | | [address];[place] | | | | | | [address] | | | | + + + + + + | Cl | 105Comment: Testing | 99 - 109 mmol/L | EXTERNAL | | | | performed at [facility];[address] | | LAB | | | | [address];[place] | | | | | | [address] | | | | + + + + + + | CO2 | 32Comment: Testing | 23 - 32 mmol/L | EXTERNAL | | | | performed at [facility];[address] | | LAB | | | | [address];[place] | | | | | | [address] | | | | + + + + + + | Anion Gap | 9Comment: Testing | 5 - 20 mmol/L | EXTERNAL | | | | performed at [facility];[address] | | LAB | | | | [address];[place] | | | | | | [address] | | | | + + + + + + | Glucose, | 120 (H)Comment: Testing | 65 - 99 mg/dL | EXTERNAL | | | Fasting | performed at [facility];[address] | | LAB | | | | [address];[place] | | | | | | [address] | | | | + + + + + + | BUN | 24Comment: Testing | 8 - 25 mg/dL | EXTERNAL | | | | performed at [facility];[address] | | LAB | | | | [address];[place] | | | | | | [address] | | | | + + + + + + | Creatinine | 0.71Comment: Testing | 0.70 - 1.30 | EXTERNAL | | | | performed at [facility];888 | mg/dL | LAB | | | | [address];[place] | | | | | | [address] | | | | + + + + + + | BUN/Creatin | 34Comment: Testing | | EXTERNAL | | | ine Ratio | performed at [facility];[address] | | LAB | | | | [address];[place] | | | | | | [address] | | | | + + + + + + | Calcium | 7.5 (L)Comment: Testing | 8.5 - 10.5 | EXTERNAL | | | | performed at [facility];888 | mg/dL | LAB | | | | [address];[place] | | | | | | [address] | | | | + + + [...] | | | | | | at [facility];[address];[place] [phone] | | | | + + + [...] EXTERNAL | | | | performed at [facility];888 | mmol/L | LAB | | | | [address];[place] | | | | | | [address] | | | | + + + [...] | | | Fingerstick | performed at [facility];888 | | LAB | | | | [address];[place], [place] | | | | | | [address] | | | | + + + [...] Arturo Mariano DO on | | | 01/16/2015 7:07 [...] | | | (Calc) | performed at [facility];888 | mmol/L | LAB | | | | [address];[place] | | | | | | [address] | | | | + + + + + + | pH, Bld | 7.442Comment: Testing | 7.300 - 7.450 | EXTERNAL | | | | performed at [facility];[address] | | LAB | | | | [address];[place], [place] | | | | | | [address] | | | | + + + [...] | | | Fingerstick | performed at [facility];888 | | LAB | | | | [address];[place], [place] | | | | | | [address] | | | | + + + [...] EXTERNAL | | | | performed at [facility];888 | K/uL | LAB | | | | [address];[place] | | | | | | [address] | | | | + + + + + + | RED CELL | 2.81 (L)Comment: Testing | 4.20 - 5.70 | EXTERNAL | | | COUNT | performed at [facility];888 | M/uL | LAB | | | | [address];[place] | | | | | | [address] | | | | + + + + + + | Hgb | 9.3 (L)Comment: Testing | 13.2 - 17.0 | EXTERNAL | | | | performed at [facility];888 | g/dL | LAB | | | | [address];[place] | | | | | | [address] | | | | + + + + + + | Hematocrit, | 27.5 (L)Comment: Testing | 39.0 - 50.0 % | EXTERNAL | | | POC | performed at [facility];888 | | LAB | | | | [address];[place] | | | | | | [address] | | | | + + + + + + | MCV | 97.9Comment: Testing | 80.0 - 100.0 fl | EXTERNAL | | | | performed at [facility];888 | | LAB | | | | [address];[place] | | | | | | [address] | | | | + + + + + + | MCH | 33.1Comment: Testing | 27.0 - 34.0 pg | EXTERNAL | | | | performed at [facility];888 | | LAB | | | | [address];[place] | | | | | | [address] | | | | + + + + + + | MCHC | 33.8Comment: Testing | 32.0 - 35.5 | EXTERNAL | | | | performed at [facility];888 | g/dL | LAB | | | | [address];[place] | | | | | | [address] | | | | + + + + + + | RDW-CV | 43.3Comment: Testing | 37 - 53 fl | EXTERNAL | | | | performed at [facility];888 | | LAB | | | | [address];[place] | | | | | | [address] | | | | + + + + + + | Platelet | 117 (L)Comment: Testing | 150 - 400 K/uL | EXTERNAL | | | Count | performed at [facility];888 | | LAB | | | Plasma | [address];[place] | | | | | | [address] | | | | + + + + + + | MPV | 9.9Comment: Testing | fl | EXTERNAL | | | | performed at [facility];[address] | | LAB | | | | [address];[place] | | | | | | [address] | | | | + + + + + + | Differentia | MANUALComment: Testing | | EXTERNAL | | | l Type | performed at [facility];[address] | | LAB | | | | [address];[place] | | | | | | [address] | | | | + + + + + + | Nucleated | 1 (H)Comment: Testing | /100WBC | EXTERNAL | | | Red Blood | performed at [facility];888 | | LAB | | | Cells | [address];[place] | | | | | | [address] | | | | + + + + + + | Segmented | 82Comment: Testing | % | EXTERNAL | | | Neutrophils | performed at [facility];888 | | LAB | | | Manual | [address];[place] | | | | | | [address] | | | | + + + + + + | % Bands | 3Comment: Testing | % | EXTERNAL | | | | performed at [facility];[address] | | LAB | | | | [address];[place] | | | | | | [address] | | | | + + + + + + | % | 2Comment: Testing | % | EXTERNAL | | | Metamyelocy | performed at [facility];[address] | | LAB | | | romaine | [address];[place] | | | | | | [address] | | | | + + + + + + | Lymphocytes | 5Comment: Testing | % | EXTERNAL | | | Manual | performed at [facility];[address] | | LAB | | | | [address];[place] | | | | | | [phone] | | | | + + + + + + | Reactive | 1Comment: Testing | % | EXTERNAL | | | Lymphocytes | performed at [facility];[address] | | LAB | | | | [address];[place] | | | | | | [phone] | | | | + + + + + + | Monocytes | 1Comment: Testing | % | EXTERNAL | | | Manual | performed at [facility];[address] | | LAB | | | | [address];[place] | | | | | | [phone] | | | | + + + + + + | Eosinophils | 6Comment: Testing | % | EXTERNAL | | | Manual | performed at [facility];[address] | | LAB | | | | [address];[place] | | | | | | [phone] | | | | + + + + + + | Absolute | 6.87Comment: Testing | 1.90 - 7.40 | EXTERNAL | | | Neutrophils | performed at [facility];[address] | K/uL | LAB | | | | [address];[place] | | | | | | [address] | | | | + + + + + + | Bands | 0.25 (H)Comment: Testing | 0.00 - 0.20 | EXTERNAL | | | Manual | performed at [facility];888 | K/uL | LAB | | | | [address];[place] | | | | | | [address] | | | | + + + + + + | Absolute | 0.17 (H)Comment: Testing | K/uL | EXTERNAL | | | Metamyelocy | performed at [facility];888 | | LAB | | | romaine | [address];[place] | | | | | | [phone] | | | | + + + + + + | Absolute | 0.42 (L)Comment: Testing | 1.00 - 3.90 | EXTERNAL | | | Lymphocytes | performed at [facility];888 | K/uL | LAB | | | | [address];[place] | | | | | | [address] | | | | + + + + + + | Reactive | 0.08Comment: Testing | K/uL | EXTERNAL | | | Lymphocytes | performed at [facility];[address] | | LAB | | | | [address];[place] | | | | | | [phone] | | | | + + + + + + | Absolute | 0.08Comment: Testing | 0.00 - 0.80 | EXTERNAL | | | Monocytes | performed at [facility];[address] | K/uL | LAB | | | | [address];[place] | | | | | | [phone] | | | | + + + + + + | Absolute | 0.50Comment: Testing | 0.00 - 0.50 | EXTERNAL | | | Eosinophils | performed at [facility];888 | K/uL | LAB | | | | [address];[place] | | | | | | [phone] | | | | + + + + + + | Platelet | DECREASEDComment: | | EXTERNAL | | | Estimate | Testing performed at | | LAB | | | | [facility];[address] | | [address];[place] [phone] | | | | + + + + + + | RBC | RBC AND PLT MORPHOLOGY | | EXTERNAL | | | Morphology | APPEAR NORMALComment: | | LAB | | | | Testing performed at | | | | | | [facility];[address];[place] [phone] | | | | + + + [...] | | | es | performed at [facility], [address] | | LAB | | | | [place], | | | | | | [place] [address] | | | | + + + [...] EXTERNAL | | | | performed at [facility], [address] | mg/dL | LAB | | | | [address] [place], | | | | | | [place] [address] | | | | + + + [...] EXTERNAL | | | | performed at [facility], [address] | | LAB | | | | [address], | | | | | | [place] [address] | | | | + + + [...] | | | | [place] [address] | | | | + + + [...] | | | | [place] [address] | | | | + + + + + + | Albumin | 2.2 (L)Comment: Testing | 3.3 - 4.8 g/dL | EXTERNAL | | | | performed at [facility], [address] | | LAB | | | | [address], | | | | | | [place] [address] | | | | + + + + + + | Bilirubin | 5.3 (H)Comment: Testing | 0.1 - 1.5 mg/dL | EXTERNAL | | | Total | performed at [facility], [address] | | LAB | | | | [address], | | | | | | [place] [address] | | | | + + + + + + | Bilirubin | 4.0 (H)Comment: Testing | 0.0 - 0.3 mg/dL | EXTERNAL | | | Direct | performed at [facility], [address] | | LAB | | | | [address], | | | | | | [place] [address] | | | | + + + + + + | ALP, | 103Comment: Testing | 35 - 115 U/L | EXTERNAL | | | External | performed at [facility], [address] | | LAB | | | | [address], | | | | | | [place] [address] | | | | + + + + + + | AST | 307 (H)Comment: Testing | 10 - 45 U/L | EXTERNAL | | | | performed at [facility], [address] | | LAB | | | | [address], | | | | | | [place] [address] | | | | + + + + + + | ALT | 399 (H)Comment: Testing | 10 - 65 U/L | EXTERNAL | | | | performed at [facility], [address] | | LAB | | | | [address], | | | | | | [place] [phone] | | | | + + + [...] | | | | [place] [address] | | | | + + + + + + | K | 3.7Comment: Testing | 3.5 - 4.9 | EXTERNAL | | | | performed at [facility], [address] | mmol/L | LAB | | | | [address], | | | | | | [place] [address] | | | | + + + + + + | Cl | 103Comment: Testing | 99 - 109 mmol/L | EXTERNAL | | | | performed at [facility], [address] | | LAB | | | | [address], | | | | | | [place] [address] | | | | + + + + + + | CO2 | 31Comment: Testing | 23 - 32 mmol/L | EXTERNAL | | | | performed at [facility], [address] | | LAB | | | | [address], | | | | | | [place] [address] | | | | + + + + + + | Anion Gap | 12Comment: Testing | 5 - 20 mmol/L | EXTERNAL | | | | performed at [facility], [address] | | LAB | | | | [address], | | | | | | [place] [address] | | | | + + + + + + | Glucose, | 99Comment: Testing | 65 - 99 mg/dL | EXTERNAL | | | Fasting | performed at [facility], [address] | | LAB | | | | [address], | | | | | | [place] [address] | | | | + + + + + + | BUN | 25Comment: Testing | 8 - 25 mg/dL | EXTERNAL | | | | performed at [facility], [address] | | LAB | | | | [address], | | | | | | [place] [address] | | | | + + + + + + | Creatinine | 0.78Comment: Testing | 0.70 - 1.30 | EXTERNAL | | | | performed at [facility], [address] | mg/dL | LAB | | | | [address], | | | | | | [place] [address] | | | | + + + + + + | BUN/Creatin | 32Comment: Testing | | EXTERNAL | | | ine Ratio | performed at [facility], [address] | | LAB | | | | [address], | | | | | | [place] [address] | | | | + + + + + + | Calcium | 8.0 (L)Comment: Testing | 8.5 - 10.5 | EXTERNAL | | | | performed at [facility], [address] | mg/dL | LAB | | | | [facility], | | | | | | [place] [address] | | | | + + + [...] | | | | | | [facility], | | | | | | [place] [address] | | | | + + + [...] | | | Fingerstick | performed at [facility];[address] | | LAB | | | | [address];[place] | | | | | | [phone] | | | | + + + [...] | | | Fingerstick | performed at [facility];[address] | | LAB | | | | [address];[place] | | | | | | [address] | | | | + + + [...] | | | Fingerstick | performed at [facility];[address] | | LAB | | | | [address];[place] | | | | | | [address] | | | | + + + [...] EXTERNAL | | | | performed at [facility];[address] | mmol/L | LAB | | | | [address];[place], [place] | | | | | | [address] | | | | + + + [...] | | | Fingerstick | performed at [facility];[address] | | LAB | | | | [address];[place] | | | | | | [address] | | | | + + + [...] | | | Fingerstick | performed at [facility];[address] | | LAB | | | | [address];[place], [place] | | | | | | [address] | | | | + + + [...] | | | Fingerstick | performed at [facility];[address] | | LAB | | | | [address];[place], [place] | | | | | | [address] | | | | + + + [...] EXTERNAL | | | | performed at [facility];[address] | mmol/L | LAB | | | | [address] [facility];[place], [place] | | | | | | [address] | | | | + + + [...] | | | Fingerstick | performed at [facility];[address] | | LAB | | | | [address];[place] | | | | | | [address] | | | | + + + [...] | | | Fingerstick | performed at [facility] | | LAB | | | | [address];[place] | | | | | | [address] | | | | + + + [...] | | | Fingerstick | performed at [facility];[address] | | LAB | | | | [address];[place], [place] | | | | | | [address] | | | | + + + [...] | | | Fingerstick | performed at [facility] | | LAB | | | | [address];[place], [place] | | | | | | [address] | | | | + + + [...] EXTERNAL | | | | performed at [facility];[address] | mmol/L | LAB | | | | [address];[place], [place] | | | | | | [address] | | | | + + + [...] EXTERNAL | | | | performed at [facility];[address] | | LAB | | | | [address];[place], [place] | | | | | | [address] | | | | + + + [...] EXTERNAL | | | | performed at [facility];[address] | | LAB | | | | [address];[place], [place] | | | | | | [address] | | | | + + + [...] | | | Fingerstick | performed at [facility];[address] | | LAB | | | | [address];[place] | | | | | | [address] | | | | + + + [...] | | | Fingerstick | performed at [facility];[address] | | LAB | | | | [address];[place], [place] | | | | | | [address] | | | | + + + [...] | | | Fingerstick | performed at [facility];[address] | | LAB | | | | [address];[place] | | | | | | [address] | | | | + + + [...] | | | Fingerstick | performed at [facility];[address] | | LAB | | | | [address];[place], [place] | | | | | | [address] | | | | + + + [...] | | | | | | at [facility];[address] | [address];[place] [address] | | | | + + + [...] EXTERNAL | | | | performed at [facility];[address] | K/uL | LAB | | | | [address];[place] | | | | | | [address] | | | | + + + + + + | RED CELL | 2.77 (L)Comment: Testing | 4.20 - 5.70 | EXTERNAL | | | COUNT | performed at [facility];[address] | M/uL | LAB | | | | [address];[place] | | | | | | [address] | | | | + + + + + + | Hgb | 9.5 (L)Comment: Testing | 13.2 - 17.0 | EXTERNAL | | | | performed at [facility];888 | g/dL | LAB | | | | [address];[place] | | | | | | [address] | | | | + + + + + + | Hematocrit, | 27.2 (L)Comment: Testing | 39.0 - 50.0 % | EXTERNAL | | | POC | performed at [facility];[address] | | LAB | | | | [address];[place] | | | | | | [address] | | | | + + + + + + | MCV | 98.2Comment: Testing | 80.0 - 100.0 fl | EXTERNAL | | | | performed at [facility];[address] | | LAB | | | | [address];[place] | | | | | | [address] | | | | + + + + + + | MCH | 34.5 (H)Comment: Testing | 27.0 - 34.0 pg | EXTERNAL | | | | performed at [facility];[address] | | LAB | | | | [address];[place] | | | | | | [address] | | | | + + + + + + | MCHC | 35.1Comment: Testing | 32.0 - 35.5 | EXTERNAL | | | | performed at [facility];888 | g/dL | LAB | | | | [address];[place] | | | | | | [address] | | | | + + + + + + | RDW-CV | 44.2Comment: Testing | 37 - 53 fl | EXTERNAL | | | | performed at [facility];[address] | | LAB | | | | [address];[place] | | | | | | [address] | | | | + + + + + + | Platelet | 105 (L)Comment: Testing | 150 - 400 K/uL | EXTERNAL | | | Count | performed at [facility];[address] | | LAB | | | Plasma | [address];[place] | | | | | | [address] | | | | + + + + + + | MPV | 9.2Comment: Testing | fl | EXTERNAL | | | | performed at [facility];[address] | | LAB | | | | [address];[place] | | | | | | [address] | | | | + + + + + + | Differentia | MANUALComment: Testing | | EXTERNAL | | | l Type | performed at [facility];[address] | | LAB | | | | [address];[place] | | | | | | [address] | | | | + + + + + + | Segmented | 83Comment: Testing | % | EXTERNAL | | | Neutrophils | performed at [facility];[address] | | LAB | | | Manual | [address];[place] | | | | | | [address] | | | | + + + + + + | % Bands | 7Comment: Testing | % | EXTERNAL | | | | performed at [facility];[address] | | LAB | | | | [address];[place] | | | | | | [address] | | | | + + + + + + | Lymphocytes | 8Comment: Testing | % | EXTERNAL | | | Manual | performed at [facility];[address] | | LAB | | | | [address];[place] | | | | | | [address] | | | | + + + + + + | Monocytes | 2Comment: Testing | % | EXTERNAL | | | Manual | performed at [facility];[address] | | LAB | | | | [address];[place] | | | | | | [address] | | | | + + + + + + | Absolute | 5.54Comment: Testing | 1.90 - 7.40 | EXTERNAL | | | Neutrophils | performed at [facility];[address] | K/uL | LAB | | | | [address];[place] | | | | | | [address] | | | | + + + + + + | Bands | 0.47 (H)Comment: Testing | 0.00 - 0.20 | EXTERNAL | | | Manual | performed at [facility];[address] | K/uL | LAB | | | | [address];[place] | | | | | | [phone] | | | | + + + + + + | Absolute | 0.53 (L)Comment: Testing | 1.00 - 3.90 | EXTERNAL | | | Lymphocytes | performed at [facility];[address] | K/uL | LAB | | | | [address];[place] | | | | | | [address] | | | | + + + + + + | Absolute | 0.13Comment: Testing | 0.00 - 0.80 | EXTERNAL | | | Monocytes | performed at [facility];[address] | K/uL | LAB | | | | [address];[place] | | | | | | [address] | | | | + + + + + + | RBC | RBC AND PLT MORPHOLOGY | | EXTERNAL | | | Morphology | APPEAR NORMALComment: | | LAB | | | | Testing performed at | | | | | | [facility];[address];[place] [phone] | | | | + + + [...] EXTERNAL | | | | performed at [facility];[address] | | LAB | | | | [address];[place], [place] | | | | | | [address] | | | | + + + [...] EXTERNAL | | | | performed at [facility];[address] | | LAB | | | | [address];[place] | | | | | | [address] | | | | + + + [...] | | Last Dose | performed at [facility];[address] | | LAB | | | | [address];[place] | | | | | | [address] | | | | + + + + + + | Time of | UNKNOWNComment: Testing | | EXTERNAL | | | Last Dose | performed at [facility];[address] | | LAB | | | | [address];[place] | | | | | | [address] | | | | + + + + + + | Digoxin | 0.9Comment: Testing | 0.90 - 2.00 | EXTERNAL | | | level | performed at [facility];888 | ng/mL | LAB | | | | [address];[place] | | | | | | [phone] | | | | + + + [...] EXTERNAL | | | | performed at [facility];[address] | mmol/L | LAB | | | | [address];[place] | | | | | | [address] | | | | + + + + + + | K | 3.1 (L)Comment: Testing | 3.5 - 4.9 | EXTERNAL | | | | performed at [facility];888 | mmol/L | LAB | | | | [address];[place] | | | | | | [address] | | | | + + + + + + | Cl | 110 (H)Comment: Testing | 99 - 109 mmol/L | EXTERNAL | | | | performed at [facility];[address] | | LAB | | | | [address];[place] | | | | | | [address] | | | | + + + + + + | CO2 | 31Comment: Testing | 23 - 32 mmol/L | EXTERNAL | | | | performed at [facility];[address] | | LAB | | | | [address];[place] | | | | | | [address] | | | | + + + + + + | Anion Gap | 5Comment: Testing | 5 - 20 mmol/L | EXTERNAL | | | | performed at [facility];[address] | | LAB | | | | [address];[place] | | | | | | [address] | | | | + + + + + + | Glucose, | 95Comment: Testing | 65 - 99 mg/dL | EXTERNAL | | | Fasting | performed at [facility];[address] | | LAB | | | | [address];[place] | | | | | | [address] | | | | + + + + + + | BUN | 26 (H)Comment: Testing | 8 - 25 mg/dL | EXTERNAL | | | | performed at [facility];[address] | | LAB | | | | [address];[place] | | | | | | [address] | | | | + + + + + + | Creatinine | 0.61 (L)Comment: Testing | 0.70 - 1.30 | EXTERNAL | | | | performed at [facility];888 | mg/dL | LAB | | | | [address];[place] | | | | | | [address] | | | | + + + + + + | BUN/Creatin | 43Comment: Testing | | EXTERNAL | | | ine Ratio | performed at [facility];[address] | | LAB | | | | [address];[place] | | | | | | [address] | | | | + + + + + + | Calcium | 7.4 (L)Comment: Testing | 8.5 - 10.5 | EXTERNAL | | | | performed at [facility];888 | mg/dL | LAB | | | | [address];[place] | | | | | | [address] | | | | + + + [...] | | | | | | at [facility];[address] | | | | [address];[place] [phone] | | | | + + + [...] | | | Fingerstick | performed at [facility];[address] | | LAB | | | | [address];[place] | | | | | | [address] | | | | + + + [...] | | | Fingerstick | performed at [facility];[address] | | LAB | | | | [address];[place] | | | | | | [address] | | | | + + + [...] | | | Fingerstick | performed at [facility];[address] | | LAB | | | | [address];[place], [place] | | | | | | [address] | | | | + + + [...] | | | Fingerstick | performed at [facility];[address] | | LAB | | | | [address];[place], [place] | | | | | | [address] | | | | + + + [...] | | | Fingerstick | performed at [facility];[address] | | LAB | | | | [address];[place] | | | | | | [address] | | | | + + + [...] | | | Fingerstick | performed at [facility];[address] | | LAB | | | | [address];[place], [place] | | | | | | [address] | | | | + + + [...] | | | Fingerstick | performed at [facility] | | LAB | | | | [address];[place], [place] | | | | | | [address] | | | | + + + [...] | | | | [place] [address] | | | | + + + [...] EXTERNAL | | | | performed at [facility], [address] | | LAB | | | | [address], | | | | | | [place] [address] | | | | + + + [...] EXTERNAL | | | | performed at [facility], [address] | | LAB | | | | [address], | | | | | | [place] [address] | | | | + + + [...] | | | Fingerstick | performed at [facility];[address] | | LAB | | | | [address];[place] | | | | | | [phone] | | | | + + + [...] | | | Fingerstick | performed at [facility];[address] | | LAB | | | | [address];[place] | | | | | | [phone] | | | | + + + [...] | | | Fingerstick | performed at [facility];[address] | | LAB | | | | [address];[place], [place] | | | | | | [address] | | | | + + + [...] | | | Fingerstick | performed at [facility];[address] | | LAB | | | | [address];[place], [place] | | | | | | [address] | | | | + + + [...] | | | Fingerstick | performed at [facility];[address] | | LAB | | | | [address];[place], [place] | | | | | | [address] | | | | + + [...] | | | Fingerstick | performed at [facility];[address] | | LAB | | | | [address];[place] | | | | | | [address] | | | | + + + [...] | | | Fingerstick | performed at [facility];[address] | | LAB | | | | [address];[place], [place] | | | | | | [address] | | | | + + + [...] EXTERNAL | | | | performed at [facility];888 | K/uL | LAB | | | | [address];[place] | | | | | | [address] | | | | + + + + + + | RED CELL | 2.58 (L)Comment: Testing | 4.20 - 5.70 | EXTERNAL | | | COUNT | performed at [facility];888 | M/uL | LAB | | | | [address];[place] | | | | | | [address] | | | | + + + + + + | Hgb | 8.3 (L)Comment: Testing | 13.2 - 17.0 | EXTERNAL | | | | performed at [facility];888 | g/dL | LAB | | | | [address];[place] | | | | | | [address] | | | | + + + + + + | Hematocrit, | 25.3 (L)Comment: Testing | 39.0 - 50.0 % | EXTERNAL | | | POC | performed at [facility];[address] | | LAB | | | | [address];[place] | | | | | | [address] | | | | + + + + + + | MCV | 97.9Comment: Testing | 80.0 - 100.0 fl | EXTERNAL | | | | performed at [facility];[address] | | LAB | | | | [address];[place] | | | | | | [address] | | | | + + + + + + | MCH | 32.0Comment: Testing | 27.0 - 34.0 pg | EXTERNAL | | | | performed at [facility];[address] | | LAB | | | | [address];[place] | | | | | | [phone] | | | | + + + + + + | MCHC | 32.7Comment: Testing | 32.0 - 35.5 | EXTERNAL | | | | performed at [facility];888 | g/dL | LAB | | | | [address];[place] | | | | | | [address] | | | | + + + + + + | RDW-CV | 42.4Comment: Testing | 37 - 53 fl | EXTERNAL | | | | performed at [facility];[address] | | LAB | | | | [address];[place] | | | | | | [address] | | | | + + + + + + | Platelet | 121 (L)Comment: Testing | 150 - 400 K/uL | EXTERNAL | | | Count | performed at [facility];888 | | LAB | | | Plasma | [address];[place] | | | | | | [address] | | | | + + + + + + | MPV | 8.9Comment: Testing | fl | EXTERNAL | | | | performed at [facility];[address] | | LAB | | | | [address];[place] | | | | | | [phone] | | | | + + + + + + | Differentia | MANUALComment: Testing | | EXTERNAL | | | l Type | performed at [facility];[address] | | LAB | | | | [address];[place] | | | | | | [address] | | | | + + + + + + | Segmented | 82Comment: Testing | % | EXTERNAL | | | Neutrophils | performed at [facility];[address] | | LAB | | | Manual | [address];[place] | | | | | | [address] | | | | + + + + + + | % Bands | 8Comment: Testing | % | EXTERNAL | | | | performed at [facility];[address] | | LAB | | | | [address];[place] | | | | | | [address] | | | | + + + + + + | Lymphocytes | 7Comment: Testing | % | EXTERNAL | | | Manual | performed at [facility];[address] | | LAB | | | | [address];[place] | | | | | | [address] | | | | + + + + + + | Monocytes | 3Comment: Testing | % | EXTERNAL | | | Manual | performed at [facility];[address] | | LAB | | | | [address];[place] | | | | | | [address] | | | | + + + + + + | Absolute | 9.02 (H)Comment: Testing | 1.90 - 7.40 | EXTERNAL | | | Neutrophils | performed at [facility];888 | K/uL | LAB | | | | [address];[place] | | | | | | [address] | | | | + + + + + + | Bands | 0.88 (H)Comment: Testing | 0.00 - 0.20 | EXTERNAL | | | Manual | performed at [facility];888 | K/uL | LAB | | | | [address];[place] | | | | | | [address] | | | | + + + + + + | Absolute | 0.77 (L)Comment: Testing | 1.00 - 3.90 | EXTERNAL | | | Lymphocytes | performed at [facility];888 | K/uL | LAB | | | | [address];[place] | | | | | | [address] | | | | + + + + + + | Absolute | 0.33Comment: Testing | 0.00 - 0.80 | EXTERNAL | | | Monocytes | performed at [facility];888 | K/uL | LAB | | | | [address];[place] | | | | | | [address] | | | | + + + + + + | Platelet | DECREASEDComment: | | EXTERNAL | | | Estimate | Testing performed at | | LAB | | | | [facility];[address];[place] [phone] | | | | + + + + + + | RBC | RBC AND PLT MORPHOLOGY | | EXTERNAL | | | Morphology | APPEAR NORMALComment: | | LAB | | | | Testing performed at | | | | | | [facility];[address];[place] [phone] | | | | + + + [...] EXTERNAL | | | | performed at [facility];[address] | | LAB | | | | [address];[place], [place] | | | | | | [phone] | | | | + + + [...] EXTERNAL | | | | performed at [facility];[address] | | LAB | | | | [address] [facility];[place], [place] | | | | | | [phone] | | | | + + + [...] EXTERNAL | | | | performed at [facility];888 | mmol/L | LAB | | | | [address];[place] | | | | | | [phone] | | | | + + + + + + | K | 3.2 (L)Comment: Testing | 3.5 - 4.9 | EXTERNAL | | | | performed at [facility];888 | mmol/L | LAB | | | | [address];[place] | | | | | | [phone] | | | | + + + + + + | Cl | 107Comment: Testing | 99 - 109 mmol/L | EXTERNAL | | | | performed at [facility];[address] | | LAB | | | | [address];[place] | | | | | | [phone] | | | | + + + + + + | CO2 | 25Comment: Testing | 23 - 32 mmol/L | EXTERNAL | | | | performed at [facility];[address] | | LAB | | | | [address];[place] | | | | | | [phone] | | | | + + + + + + | Anion Gap | 9Comment: Testing | 5 - 20 mmol/L | EXTERNAL | | | | performed at [facility];[address] | | LAB | | | | [address];[place] | | | | | | [phone] | | | | + + + + + + | Glucose, | 111 (H)Comment: Testing | 65 - 99 mg/dL | EXTERNAL | | | Fasting | performed at [facility];[address] | | LAB | | | | [address];[place] | | | | | | [phone] | | | | + + + + + + | BUN | 26 (H)Comment: Testing | 8 - 25 mg/dL | EXTERNAL | | | | performed at [facility];[address] | | LAB | | | | [address];[place] | | | | | | [phone] | | | | + + + + + + | Creatinine | 0.76Comment: Testing | 0.70 - 1.30 | EXTERNAL | | | | performed at [facility];888 | mg/dL | LAB | | | | [address];[place] | | | | | | [phone] | | | | + + + + + + | BUN/Creatin | 34Comment: Testing | | EXTERNAL | | | ine Ratio | performed at [facility];888 | | LAB | | | | [address];[place] | | | | | | [phone] | | | | + + + + + + | Calcium | 7.5 (L)Comment: Testing | 8.5 - 10.5 | EXTERNAL | | | | performed at [facility];888 | mg/dL | LAB | | | | [address];[place] | | | | | | [address] | | | | + + + [...] | | | | | | at [facility];[address] | | | | | | [address];[place] [address] | | | | + + + [...] | | | Fingerstick | performed at [facility];888 | | LAB | | | | [address];[place] | | | | | | [address] | | | | + + + [...] | | | Fingerstick | performed at [facility];888 | | LAB | | | | [address];[place] | | | | | | [phone] | | | | + + + [...] | | | Fingerstick | performed at [facility];888 | | LAB | | | | [address];[place], [place] | | | | | | [address] | | | | + + + [...] | | | Fingerstick | performed at [facility];8 | | LAB | | | | [address];[place], [place] | | | | | | [address] | | | | + + + [...] | | | Fingerstick | performed at [facility];888 | | LAB | | | | [address];[place], [place] | | | | | | [address] | | | | + + + [...] | | | Fingerstick | performed at [facility];888 | | LAB | | | | [address];[place] | | | | | | [phone] | | | | + + + [...] | | | Fingerstick | performed at [facility];888 | | LAB | | | | [address];[place] | | | | | | [address] | | | | + + + [...] | | | Fingerstick | performed at [facility];888 | | LAB | | | | [address];[place] | | | | | | [phone] | | | | + + + [...] | | | Fingerstick | performed at [facility];888 | | LAB | | | | [address];[place], [place] | | | | | | [address] | | | | + + + [...] | | | Fingerstick | performed at [facility];[address] | | LAB | | | | [address];[place] | | | | | | [address] | | | | + + + [...] GROWTH | | | Testing performed at [facility], | | | [address] [place] [address] | | + + + + +---------+ [...] | | | Fingerstick | performed at [facility];888 | | LAB | | | | [address];[place] | | | | | | [phone] | | | | + + + [...] GROWTH | | | Testing performed at [facility], | | | [address] [place] [address] | | + + + + +---------+ [...] | | | Fingerstick | performed at [facility];888 | | LAB | | | | [address];[place] | | | | | | [address] | | | | + + + [...] | | | Fingerstick | performed at [facility];888 | | LAB | | | | [address];[place] | | | | | | [address] | | | | + + + [...] | | | Fingerstick | performed at [facility];888 | | LAB | | | | [address];[place] | | | | | | [address] | | | | + + + [...] | | | Fingerstick | performed at [facility];888 | | LAB | | | | [address];[place], [place] | | | | | | [address] | | | | + + + [...] | | | Fingerstick | performed at [facility];888 | | LAB | | | | [address];[place], [place] | | | | | | [address] | | | | + + + [...] | | | Fingerstick | performed at [facility] | | LAB | | | | [address];[place] | | | | | | [address] | | | | + + + [...] | | | Fingerstick | performed at [facility];888 | | LAB | | | | [address];[place] | | | | | | [phone] | | | | + + + [...] | | | Fingerstick | performed at [facility];888 | | LAB | | | | [address];[place] | | | | | | [phone] | | | | + + + [...] | | | Fingerstick | performed at [facility];888 | | LAB | | | | [address];[place], [place] | | | | | | [address] | | | | + + + [...] | | | Fingerstick | performed at [facility];888 | | LAB | | | | [address];[place], [place] | | | | | | [address] | | | | + + + [...] EXTERNAL | | | | performed at [facility], [address] | K/uL | LAB | | | | [address], | | | | | | [place] [address] | | | | + + + + + + | RED CELL | 2.49 (L)Comment: Testing | 4.20 - 5.70 | EXTERNAL | | | COUNT | performed at [facility], [address] | M/uL | LAB | | | | [address], | | | | | | [place] [address] | | | | + + + + + + | Hgb | 8.4 (L)Comment: Testing | 13.2 - 17.0 | EXTERNAL | | | | performed at [facility], [address] | g/dL | LAB | | | | [address], | | | | | | [place] [address] | | | | + + + + + + | Hematocrit, | 24.4 (L)Comment: Testing | 39.0 - 50.0 % | EXTERNAL | | | POC | performed at [facility], [address] | | LAB | | | | [address], | | | | | | [place] [address] | | | | + + + + + + | MCV | 97.8Comment: Testing | 80.0 - 100.0 fl | EXTERNAL | | | | performed at [facility], [address] | | LAB | | | | [address], | | | | | | [place] [address] | | | | + + + + + + | MCH | 33.8Comment: Testing | 27.0 - 34.0 pg | EXTERNAL | | | | performed at [facility], [address] | | LAB | | | | [address], | | | | | | [place] [address] | | | | + + + + + + | MCHC | 34.5Comment: Testing | 32.0 - 35.5 | EXTERNAL | | | | performed at [facility], [address] | g/dL | LAB | | | | [address], | | | | | | [place] [address] | | | | + + + + + + | RDW-CV | 41.6Comment: Testing | 37 - 53 fl | EXTERNAL | | | | performed at [facility], [address] | | LAB | | | | [address], | | | | | | [place] [address] | | | | + + + + + + | Platelet | 154Comment: Testing | 150 - 400 K/uL | EXTERNAL | | | Count | performed at [facility], [address] | | LAB | | | Plasma | [address], | | | | | | [place] [address] | | | | + + + + + + | MPV | 8.5Comment: Testing | fl | EXTERNAL | | | | performed at [facility], [address] | | LAB | | | | [address], | | | | | | [place] [address] | | | | + + + + + + | Differentia | MANUALComment: Testing | | EXTERNAL | | | l Type | performed at [facility], [address] | | LAB | | | | [address], | | | | | | [place] [address] | | | | + + + + + + | Segmented | 65Comment: Testing | % | EXTERNAL | | | Neutrophils | performed at [facility], [address] | | LAB | | | Manual | [address], | | | | | | [place] [address] | | | | + + + + + + | % Bands | 32Comment: Testing | % | EXTERNAL | | | | performed at [facility], [address] | | LAB | | | | [address], | | | | | | [place] [address] | | | | + + + + + + | % | 2Comment: Testing | % | EXTERNAL | | | Metamyelocy | performed at [facility], [address] | | LAB | | | [address], | | | | | | [place] [address] | | | | + + + + + + | Lymphocytes | 1Comment: Testing | % | EXTERNAL | | | Manual | performed at [facility], [address] | | LAB | | | | [address], | | | | | | [place] [address] | | | | + + + + + + | Absolute | 6.87Comment: Testing | 1.90 - 7.40 | EXTERNAL | | | Neutrophils | performed at [facility], [address] | K/uL | LAB | | | | [address], | | | | | | [place] [address] | | | | + + + + + + | Bands | 3.38 (H)Comment: Testing | 0.00 - 0.20 | EXTERNAL | | | Manual | performed at [facility], [address] | K/uL | LAB | | | | [address], | | | | | | [place] [address] | | | | + + + + + + | Absolute | 0.21 (H)Comment: Testing | K/uL | EXTERNAL | | | Metamyelocy | performed at [facility], [address] | | LAB | | | [address] | [address], | | | | | | [place] [address] | | | | + + + + + + | Absolute | 0.11 (L)Comment: Testing | 1.00 - 3.90 | EXTERNAL | | | Lymphocytes | performed at [facility], [address] | K/uL | LAB | | | | [address], | | | | | | [place] [address] | | | | + + + + + + | RBC | RBC AND PLT MORPHOLOGY | | EXTERNAL | | | Morphology | APPEAR NORMALComment: | | LAB | | | | Testing performed at | | | | | | [facility], [address] [facility] | | | | | | [place] | | | | | | [address] | | | | + + + [...] EXTERNAL | | | | performed at [facility], [address] | | LAB | | | | [address], | | | | | | [place] [address] | | | | + + + [...] | | | | [place] [address] | | | | + + + [...] + + | Hemoglobin | 5.0Comment: The [place] | 4.0 - 6.0 % | EXTERNAL [...] | | | | | performed at [facility], [address] | | | | | | [address] [facility] [address], | | | | | | [place] [address] | | | | + + + [...] | | | | | performed at [facility], [address] | | | | | | [facility], | | | | | | [place] [address] | | | | + + + [...] | | | | [place] [address] | | | | + + + + + + | K | 3.5Comment: Testing | 3.5 - 4.9 | EXTERNAL | | | | performed at [facility], [address] | mmol/L | LAB | | | | [address], | | | | | | [place] [address] | | | | + + + + + + | Cl | 105Comment: Testing | 99 - 109 mmol/L | EXTERNAL | | | | performed at [facility], [address] | | LAB | | | | [address], | | | | | | [place] [address] | | | | + + + + + + | CO2 | 23Comment: Testing | 23 - 32 mmol/L | EXTERNAL | | | | performed at [facility], [address] | | LAB | | | | [address], | | | | | | [place] [address] | | | | + + + + + + | Anion Gap | 11Comment: Testing | 5 - 20 mmol/L | EXTERNAL | | | | performed at [facility], [address] | | LAB | | | | [address], | | | | | | [place] [address] | | | | + + + + + + | Glucose, | 130 (H)Comment: Testing | 65 - 99 mg/dL | EXTERNAL | | | Fasting | performed at [facility], [address] | | LAB | | | | [address], | | | | | | [place] [address] | | | | + + + + + + | BUN | 15Comment: Testing | 8 - 25 mg/dL | EXTERNAL | | | | performed at [facility], [address] | | LAB | | | | [address], | | | | | | [place] [address] | | | | + + + + + + | Creatinine | 0.72Comment: Testing | 0.70 - 1.30 | EXTERNAL | | | | performed at [facility], [address] | mg/dL | LAB | | | | [address], | | | | | | [place] [address] | | | | + + + + + + | BUN/Creatin | 21Comment: Testing | | EXTERNAL | | | ine Ratio | performed at [facility], [address] | | LAB | | | | [address], | | | | | | [place] [address] | | | | + + + + + + | Calcium | 7.8 (L)Comment: Testing | 8.5 - 10.5 | EXTERNAL | | | | performed at [facility], [address] | mg/dL | LAB | | | | [address], | | | | | | [place] [address] | | | | + + + [...] | | | | | | at [facility], [address] | | | | | | [address], | | | | | | [place] [address] | | | | + + + [...] | | | Fingerstick | performed at [facility];[address] | | LAB | | | | [address];[place] | | | | | | [address] | | | | + + + [...] | | | Fingerstick | performed at [facility];8 | | LAB | | | | [address];[place], [place] | | | | | | [address] | | | | + + + [...] | | | Fingerstick | performed at [facility];888 | | LAB | | | | [address];[place], [place] | | | | | | [address] | | | | + + + [...] EXTERNAL | | | | performed at [facility] | | LAB | | | | [facility];[place], [place] | | | | | | [address] | | | | + + + [...] | | | Random | performed at [facility] | | LAB | | | | [address];[place] | | | | | | [address] | | | | + + + [...] EXTERNAL | | | | performed at [facility];888 | mmol/L | LAB | | | | [address];[place] | | | | | | [phone] | | | | + + + + + + | K | 3.1 (L)Comment: Testing | 3.5 - 4.9 | EXTERNAL | | | | performed at [facility];888 | mmol/L | LAB | | | | [address];[place] | | | | | | [address] | | | | + + + + + + | Cl | 105Comment: Testing | 99 - 109 mmol/L | EXTERNAL | | | | performed at [facility];[address] | | LAB | | | | [address];[place] | | | | | | [address] | | | | + + + + + + | CO2 | 22 (L)Comment: Testing | 23 - 32 mmol/L | EXTERNAL | | | | performed at [facility];888 | | LAB | | | | [address];[place] | | | | | | [address] | | | | + + + + + + | Anion Gap | 12Comment: Testing | 5 - 20 mmol/L | EXTERNAL | | | | performed at [facility];[address] | | LAB | | | | [address];[place] | | | | | | [address] | | | | + + + + + + | Glucose, | 245 (H)Comment: Testing | 65 - 99 mg/dL | EXTERNAL | | | Fasting | performed at [facility];888 | | LAB | | | | [address];[place] | | | | | | [address] | | | | + + + + + + | BUN | 15Comment: Testing | 8 - 25 mg/dL | EXTERNAL | | | | performed at [facility];[address] | | LAB | | | | [address];[place] | | | | | | [address] | | | | + + + + + + | Creatinine | 0.84Comment: Testing | 0.70 - 1.30 | EXTERNAL | | | | performed at [facility];888 | mg/dL | LAB | | | | [address];[place] | | | | | | [address] | | | | + + + + + + | BUN/Creatin | 18Comment: Testing | | EXTERNAL | | | ine Ratio | performed at [facility];888 | | LAB | | | | [address];[place] | | | | | | [address] | | | | + + + + + + | Calcium | 7.3 (L)Comment: Testing | 8.5 - 10.5 | EXTERNAL | | | | performed at [facility];888 | mg/dL | LAB | | | | [address];[place] | | | | | | [address] | | | | + + + [...] | | | | | | at [facility];[address] [place] [address] | | | | | | vd;[place] [address] | | | | + + + [...] | | | Fingerstick | performed at [facility];888 | | LAB | | | | [address];[place] | | | | | | [address] | | | | + + + [...] | | | Fingerstick | performed at [facility];[address] | | LAB | | | | [address];[place], [place] | | | | | | [address] | | | | + + + [...] GROWTH | | | Testing performed at [facility], [address] | | | [place] [address] | | + + + + +---------+ [...] | | | Fingerstick | performed at [facility];[address] | | LAB | | | | [address];[place], [place] | | | | | | [address] | | | | + + + [...] EXTERNAL | | | | performed at [facility];8 | | LAB | | | | [address];[place], [place] | | | | | | [address] | | | | + + + [...] | | | regurgitation is present. 6. Sras-nu-ufbuikmf tricuspid regurgitation | | | present. 7. [...] | Moderate mitral regurgitation is present. 6. Orzx-yt-vlvvmcal | | | tricuspid regurgitation present. 7. [...] structurally normal. Tricuspid Valve: | | | Utll-nu-wubfkgqq tricuspid regurgitation present. Tricuspid Valve: | | [...] 0.31 m/s TV Dec | | | [place]: 2.85 m/s2 TV Dec Time: 143.08 ms TV E [place]: 0.40 m/s | | | TV E/A Ratio: 1.30 Lead Section Supervisor: JAYCEE Authenticated by: Attila | | | [...] | impaired.5. Moderate mitral regurgitation is present.6. Mpgv-cj-ebmdhcbe tricuspid | | regurgitation present.7. There is [...] | tricuspid valve appears structurally normal.Tricuspid Valve: Iaoe-oy-emfuxkun tricuspid | | regurgitation present.Tricuspid Valve: There [...] (A-L): 35.80 ml/m2LAAs | | A2C: 18.62 co9RCXFC A-L A2C: 55.53 mlLAESV MOD A2C: 52.66 mlLALs A2C: 5.30 | | cmLAAs A4C: 21.73 gr4OXJTC A-L A4C: 69.59 mlLAESV MOD A4C: 63.41 mlLALs A4C: | | 5.76 cmHR: 100.23 BPMAV maxP.95 mmHgAV meanP.97 mmHgAV Vmax: 1.11 m/Svetlana | | Vmean: 0.83 m/Svetlana VTI: 18.56 cmAVA Vmax: 2.21 cm2AVA (VTI): 2.49 im9BGTP Dopp: | | 2.57 l/qwpd1QTTM Dopp: 4.66 l/minHR: 100.81 BPMLVOT maxP.16 mmHgLVOT [...] 2.62 m/sTV A [place]: 0.31 m/sTV Dec [place]: 2.85 | | m/s2TV Dec Time: 143.08 msTV E [place]: 0.40 m/sTV E/A Ratio: 1.30 Lead Section Supervisor: | | GDAuthenticated by: Attila Yepez MDReport [...] Moderate mitral regurgitation is | | present.6. Vlsb-pz-beljrwtp tricuspid regurgitation present.7. There is mild pulmonary [...] A [place]: 0.31 m/s | |TV Dec [place]: 2.85 m/s2 | |TV Dec Time: 143.08 ms | |TV E [place]: 0.40 m/s | |TV E/A Ratio: 1.30 | | | |Lead Section Supervisor: GD | |Authenticated by: Attila Yepez MD [...] Moderate mitral regurgitation is present. | |6. Rpwd-qh-bahhvfjn tricuspid regurgitation present. | |7. There is mild pulmonary hypertension. | + + MRSA NAAT (01/12/2015 7:59 AM PDT) + + | Specimen | + + | | + + + + + | Narrative | Performed At | + + + | [facility](NOSE) | EXTERNAL LAB | | Testing performed at [facility];[address] [place] [address];[place] [address] MRSA PCR | | | NEGATIVE Testing performed at | | | [address];[place] [address] | | + + + + +---------+ [...] NIGHAT | | | Testing performed at [facility], [address] [facility], | | | [place] [address] Suscepibility for - ESCHERICHIA COLI | | [...] | | | | | | ACUTE DC Testing | | | | | | performed at [facility];[address] | | | | | | [address];[place], [place] | | | | | | [address] | | | | + + + [...] EXTERNAL | | | | performed at [facility];888 | mmol/L | LAB | | | | [address];[place], [place] | | | | | | [address] | | | | + + + + + + | K | 3.8Comment: SLT | 3.5 - 4.9 | EXTERNAL | | | | HEMOLYSISTesting | mmol/L | LAB | | | | performed at [facility];[address] | | | | | | [address];[place] | | | | | | [address] | | | | + + + + + + | Cl | 114 (H)Comment: Testing | 99 - 109 mmol/L | EXTERNAL | | | | performed at [facility];[address] | | LAB | | | | [address];[place] | | | | | | [address] | | | | + + + + + + | CO2 | 17 (L)Comment: Testing | 23 - 32 mmol/L | EXTERNAL | | | | performed at [facility];[address] | | LAB | | | | [address];[place] | | | | | | [address] | | | | + + + + + + | Anion Gap | 13Comment: Testing | 5 - 20 mmol/L | EXTERNAL | | | | performed at [facility];[address] | | LAB | | | | [address];[place] | | | | | | [address] | | | | + + + + + + | Glucose, | 96Comment: Testing | 65 - 99 mg/dL | EXTERNAL | | | Fasting | performed at [facility];[address] | | LAB | | | | [address];[place] | | | | | | [address] | | | | + + + + + + | BUN | 17Comment: Testing | 8 - 25 mg/dL | EXTERNAL | | | | performed at [facility];[address] | | LAB | | | | [address];[place] | | | | | | [address] | | | | + + + + + + | Creatinine | 1.00Comment: Testing | 0.70 - 1.30 | EXTERNAL | | | | performed at [facility];888 | mg/dL | LAB | | | | [address];[place] | | | | | | [address] | | | | + + + + + + | BUN/Creatin | 17Comment: Testing | | EXTERNAL | | | ine Ratio | performed at [facility];[address] | | LAB | | | | [address];[place] | | | | | | [address] | | | | + + + + + + | Calcium | 6.7 (L)Comment: Testing | 8.5 - 10.5 | EXTERNAL | | | | performed at [facility];888 | mg/dL | LAB | | | | [address];[place] | | | | | | [address] | | | | + + + [...] | | | | | | at [facility];[address] | | | | | | [address];[place] [address] | | | | + + + [...] 6:44AM | | | Referring Provider Line: [phone] ID: [id number] | | + + + [...] Jan 12 2015 6:44AM Referring Provider Line: [phone] ID: [id number] | | | |IMPRESSION: | [...] 12 2015 6:44AM Referring Provider Sharla e: [phone] ID: [id number] | + + Lactic Acid (01/12/2015 5:43 AM PDT) + + + + + + | Component | Value | Ref Range | Performed | Pathologist | | | | | At | Signature | + + + + + + | Lactate | 2.0Comment: Testing | 0.4 - 2.0 | EXTERNAL | | | | performed at [facility];[address] | mmol/L | LAB | | | | [address];[place], [place] | | | | | | [address] | | | | + + + [...] | | | Fingerstick | performed at [facility];[address] | | LAB | | | | [address];[place] | | | | | | [address] | | | | + + + [...] 5:22AM Referring | | | Provider Line: [phone] ID: [id number] | | + + + [...] 2015 5:22AM | | Referring Provider Line: [phone] ID: [id number] | | | |FINDINGS: | [...] 12 2015 5:22AM Referring Provider Sharla e: [phone] ID: [id number] | + + Calcium, Ionized (01/12/2015 3:23 AM PDT) + + + + + + | Component | Value | Ref Range | Performed | Pathologist | | | | | At | Signature | + + + + + + | Calcium | 1.00 (L)Comment: Testing | 1.08 - 1.25 | EXTERNAL | | | (Calc) | performed at [facility];[address] | mmol/L | LAB | | | | [address];[place] | | | | | | [address] | | | | + + + + + + | pH, Bld | 7.336Comment: Testing | 7.300 - 7.450 | EXTERNAL | | | | performed at [facility];[address] | | LAB | | | | [address];[place] | | | | | | [address] | | | | + + + [...] EXTERNAL | | | | performed at [facility], [facility] | K/uL | LAB | | | | [address], | | | | | | [place] [address] | | | | + + + + + + | RED CELL | 2.62 (L)Comment: Testing | 4.20 - 5.70 | EXTERNAL | | | COUNT | performed at [facility], [address] | M/uL | LAB | | | | [address], | | | | | | [place] [address] | | | | + + + + + + | Hgb | 8.9 (L)Comment: Testing | 13.2 - 17.0 | EXTERNAL | | | | performed at [facility], [address] | g/dL | LAB | | | | [address], | | | | | | [place] [address] | | | | + + + + + + | Hematocrit, | 26.1 (L)Comment: Testing | 39.0 - 50.0 % | EXTERNAL | | | POC | performed at [facility], [address] | | LAB | | | | [address], | | | | | | [place] [address] | | | | + + + + + + | MCV | 99.8Comment: Testing | 80.0 - 100.0 fl | EXTERNAL | | | | performed at [facility], [address] | | LAB | | | | [address], | | | | | | [place] [address] | | | | + + + + + + | MCH | 34.1 (H)Comment: Testing | 27.0 - 34.0 pg | EXTERNAL | | | | performed at [facility], [address] | | LAB | | | | [address], | | | | | | [place] [address] | | | | + + + + + + | MCHC | 34.2Comment: Testing | 32.0 - 35.5 | EXTERNAL | | | | performed at [facility], [address] | g/dL | LAB | | | | [address], | | | | | | [place] [address] | | | | + + + + + + | RDW-CV | 41.6Comment: Testing | 37 - 53 fl | EXTERNAL | | | | performed at [facility], [address] | | LAB | | | | [address], | | | | | | [place] [address] | | | | + + + + + + | Platelet | 173Comment: Testing | 150 - 400 K/uL | EXTERNAL | | | Count | performed at [facility], [address] | | LAB | | | Plasma | [address], | | | | | | [place] [address] | | | | + + + + + + | MPV | 8.6Comment: Testing | fl | EXTERNAL | | | | performed at [facility], [address] | | LAB | | | | [address], | | | | | | [place] [address] | | | | + + + + + + | Differentia | MANUALComment: Testing | | EXTERNAL | | | l Type | performed at [facility], [address] | | LAB | | | | [address], | | | | | | [place] [address] | | | | + + + + + + | Segmented | 53Comment: Testing | % | EXTERNAL | | | Neutrophils | performed at [facility], [address] | | LAB | | | Manual | [address], | | | | | | [place], [place] [address] | | | | + + + + + + | % Bands | 31Comment: Testing | % | EXTERNAL | | | | performed at [facility], [address] | | LAB | | | | [address], | | | | | | [place], [place] [address] | | | | + + + + + + | % | 7Comment: Testing | % | EXTERNAL | | | Metamyelocy | performed at [facility], [address] | | LAB | | | [address] | [address], | | | | | | [place] [address] | | | | + + + + + + | Lymphocytes | 5Comment: Testing | % | EXTERNAL | | | Manual | performed at [facility], [address] | | LAB | | | | [address], | | | | | | [place] [address] | | | | + + + + + + | Monocytes | 4Comment: Testing | % | EXTERNAL | | | Manual | performed at [facility], [address] | | LAB | | | | [place], | | | | | | [place] [address] | | | | + + + + + + | Absolute | 1.78 (L)Comment: Testing | 1.90 - 7.40 | EXTERNAL | | | Neutrophils | performed at [facility], [address] | K/uL | LAB | | | | [address], | | | | | | [place] [address] | | | | + + + + + + | Bands | 1.05 (H)Comment: Testing | 0.00 - 0.20 | EXTERNAL | | | Manual | performed at [facility], [address] | K/uL | LAB | | | | [address], | | | | | | [place] [address] | | | | + + + + + + | Absolute | 0.24 (H)Comment: Testing | K/uL | EXTERNAL | | | Metamyelocy | performed at [facility], [address] | | LAB | | | romaine | [address], | | | | | | [place] [address] | | | | + + + + + + | Absolute | 0.17 (L)Comment: Testing | 1.00 - 3.90 | EXTERNAL | | | Lymphocytes | performed at [facility], [address] | K/uL | LAB | | | | [address], | | | | | | [place] [address] | | | | + + + + + + | Absolute | 0.14Comment: Testing | 0.00 - 0.80 | EXTERNAL | | | Monocytes | performed at [facility], [address] | K/uL | LAB | | | | [address], | | | | | | [place] [address] | | | | + + + + + + | RBC | 1+Comment: MACRONORMAL | | EXTERNAL | | | Morphology | PLT MORPHTesting | | LAB | | | | performed at [facility], [address] | | | | | | [address], | | | | | | [place] [address] | | | | | | | [...] | | | es | performed at [facility], [address] | | LAB | | | | [address], | | | | | | [place] [address] | | | | + + + [...] | | | | [place] [address] | | | | + + + [...] EXTERNAL | | | | performed at [facility] | | LAB | | | | [address];[place] | | | | | | [address] | | | | + + + [...] EXTERNAL | | | | performed at [facility];[address] | | LAB | | | | [address];[place], [place] | | | | | | [address] | | | | + + + [...] EXTERNAL | | | | performed at [facility];[address] | mmol/L | LAB | | | | [address];[place] | | | | | | [address] | | | | + + + [...] EXTERNAL | | | | performed at [facility];[address] | mmol/L | LAB | | | | [address];[place], [place] | | | | | | [address] | | | | + + + + + + | K | 3.8Comment: Testing | 3.5 - 4.9 | EXTERNAL | | | | performed at [facility];[address] | mmol/L | LAB | | | | [address];[place] | | | | | | [address] | | | | + + + + + + | Cl | 113 (H)Comment: Testing | 99 - 109 mmol/L | EXTERNAL | | | | performed at [facility];[address] | | LAB | | | | [address];[place] | | | | | | [address] | | | | + + + + + + | CO2 | 19 (L)Comment: Testing | 23 - 32 mmol/L | EXTERNAL | | | | performed at [facility];[address] | | LAB | | | | [address];[place] | | | | | | [address] | | | | + + + + + + | Anion Gap | 12Comment: Testing | 5 - 20 mmol/L | EXTERNAL | | | | performed at [facility];[address] | | LAB | | | | [address];[place] | | | | | | [address] | | | | + + + + + + | Glucose, | 92Comment: Testing | 65 - 99 mg/dL | EXTERNAL | | | Fasting | performed at [facility];[address] | | LAB | | | | [address];[place] | | | | | | [address] | | | | + + + + + + | BUN | 17Comment: Testing | 8 - 25 mg/dL | EXTERNAL | | | | performed at [facility];[address] | | LAB | | | | [address];[place] | | | | | | [address] | | | | + + + + + + | Creatinine | 1.0Comment: Testing | 0.70 - 1.30 | EXTERNAL | | | | performed at [facility];[address] | mg/dL | LAB | | | | [address];[place] | | | | | | [address] | | | | + + + + + + | BUN/Creatin | 17Comment: Testing | | EXTERNAL | | | ine Ratio | performed at [facility];[address] | | LAB | | | | [address];[place] | | | | | | [address] | | | | + + + + + + | Calcium | 6.5 (L)Comment: Testing | 8.5 - 10.5 | EXTERNAL | | | | performed at [facility];[address] | mg/dL | LAB | | | | [address];[place] | | | | | | [address] | | | | + + + + + + | Protein, | 4.6 (L)Comment: Testing | 6.3 - 8.2 g/dL | EXTERNAL | | | Total | performed at [facility];[address] | | LAB | | | | [address];[place] | | | | | | [address] | | | | + + + + + + | Albumin | 1.8 (L)Comment: Testing | 3.3 - 4.8 g/dL | EXTERNAL | | | | performed at [facility];[address] | | LAB | | | | [address];[place] | | | | | | [address] | | | | + + + + + + | Globulin | 2.7Comment: Testing | 1.3 - 4.9 g/dL | EXTERNAL | | | | performed at [facility];[address] | | LAB | | | | [address];[place] | | | | | | [address] | | | | + + + + + + | A/G Ratio | 0.7 (L)Comment: Testing | 1.0 - 2.4 | EXTERNAL | | | | performed at [facility];[address] | | LAB | | | | [address];[place] | | | | | | [address] | | | | + + + + + + | Bilirubin | 1.4Comment: Testing | 0.1 - 1.5 mg/dL | EXTERNAL | | | Total | performed at [facility];[address] | | LAB | | | | [address];[place] | | | | | | [address] | | | | + + + + + + | ALP, | 72Comment: Testing | 35 - 115 U/L | EXTERNAL | | | External | performed at [facility];[address] | | LAB | | | | [address];[place] | | | | | | [address] | | | | + + + + + + | AST | 19Comment: Testing | 10 - 45 U/L | EXTERNAL | | | | performed at [facility];[address] | | LAB | | | | [address];[place] | | | | | | [address] | | | | + + + + + + | ALT | 16Comment: Testing | 10 - 65 U/L | EXTERNAL | | | | performed at [facility];[address] | | LAB | | | | [address];[place] | | | | | | [address] | | | | + + + [...] | | | | | | at [facility];[address] [place] [address] | | | | | | [facility];[place] [address] | | | | + + + [...] | | | Fingerstick | performed at [facility];[address] | | LAB | | | | [address];[place] | | | | | | [address] | | | | + + + [...] 12:19AM | | | Referring Provider Line: [phone] ID: [id number] | | + + + [...] | placement. [facility] Electronically signed by Toribio Glalo MD on Jan 12 2015 12:19AM | | Referring Provider Line: [phone] ID: [id number] | | | |FINDINGS: | [...] 12 2015 12:19AM Referring Provider Li ne: [phone] ID: [id number] | + + XR Abdomen [...] 5:04PM Referring Provider Line: | | | [phone] ID: [id number] | | + + + [...] 2015 5:04PM Referring Provider | | Line: [phone] ID: [id number] | | | |TECHNIQUE: 1 [...] 12 2015 5:04PM Referring Provider Li ne: [phone] ID: [id number] | + + XR Chest 1 Vw (01/11/2015 10:46 PM PDT) + + | Specimen | + + | | + + + + + | Impressions | Performed At | + + + | Right lower lobe airspace consolidation. [facility] | | | Electronically signed by Toribio Gallo MD on Jan 12 2015 12:01AM | | | Referring Provider Line: [phone] ID: [id number] | | + + + [...] 2015 12:01AM Referring Provider | | Line: [phone] ID: [id number] | | | |TECHNIQUE: 1 [...] 12 2015 12:01AM Referring Provider Paula ne: [phone] ID: [id number] | + + POC Glucose (01/11/2015 10:23 PM PDT) + + + + + + | Component | Value | Ref Range | Performed | Pathologist | | | | | At | Signature | + + + + + + | Glucose, | 95Comment: Testing | 65 - 99 mg/dL | EXTERNAL | | | Fingerstick | performed at [facility];[address] | | LAB | | | | [address];[place], [place] | | | | | | [address] | | | | + + + [...] EXTERNAL | | | | performed at [facility];[address] | mmol/L | LAB | | | | [address];[place], [place] | | | | | | [address] | | | | + + + [...] | | | | | performed at [facility], [address] | | | | | | [address], | | | | | | [place] [address] | | | | + + + [...] | | | | [place] [address] | | | | + + + + + + | RBC, UA | 6-10Comment: Testing | 0 - 2 /hpf | EXTERNAL | | | | performed at [facility], [address] | | LAB | | | | [address], | | | | | | [place] [address] | | | | + + + + + + | Epithelial | 6-10Comment: Testing | /lpf | EXTERNAL | | | Cells | performed at [facility], [address] | | LAB | | | | [address], | | | | | | [place] [address] | | | | + + + + + + | Bacteria, | 2+ (A)Comment: Testing | | EXTERNAL | | | UA | performed at [facility], [address] | | LAB | | | [address], | | | | | | [place] [address] | | | | + + + + + + | HYALINE | 6-10Comment: Testing | | EXTERNAL | | | CASTS UA | performed at [facility], [address] | | LAB | | | | [address], | | | | | | [place] [address] | | | | + + + [...] HAND | | | Testing performed at [facility];[address] | | | [address];[place] [address] GRAM STAIN | | | GRAM NEGATIVE RODS | | | SEEN IN ANAEROBIC BOTTLE | | | SMEAR RESULTS CALLED TO AND READ BACK BY: | | | YOCASTA Garcia RN [facility] ICU 0945 | | | 01/12/15 [facility] CULTURE | | | ESCHERICHIA COLIAbnormal | | | FINDING OF ORGANISM GROWTHAbnormal | | | TIME TO DETECTION: | | | 10 HOURS 48 MINUTES | | | Testing performed at [facility], [address] | | | [address], [place] [address] Suscepibility for - | | | ESCHERICHIA [...] GROWTH | | | Testing performed at [facility], | | | [address] [facility] [place] [address] | | + + + + +---------+ [...] | | | | | | at [facility];[address] [place] [address] | | | | | | [facility];[place] [address] | | | | + + + [...] | | | | | | ACUTE DC Testing | | | | | | performed at [facility];[address] | | | | | | [address];[place], [place] | | | | | | [address] | | | | + + + [...] EXTERNAL | | | | performed at [facility];[address] | K/uL | LAB | | | | [address];[place] | | | | | | [address] | | | | + + + + + + | RED CELL | 3.51 (L)Comment: Testing | 4.20 - 5.70 | EXTERNAL | | | COUNT | performed at [facility];[address] | M/uL | LAB | | | | [address];[place] | | | | | | [address] | | | | + + + + + + | Hgb | 12.1 (L)Comment: Testing | 13.2 - 17.0 | EXTERNAL | | | | performed at [facility];888 | g/dL | LAB | | | | [address];[place] | | | | | | [address] | | | | + + + + + + | Hematocrit, | 34.3 (L)Comment: Testing | 39.0 - 50.0 % | EXTERNAL | | | POC | performed at [facility];[address] | | LAB | | | | [address];[place] | | | | | | [address] | | | | + + + + + + | MCV | 97.9Comment: Testing | 80.0 - 100.0 fl | EXTERNAL | | | | performed at [facility];[address] | | LAB | | | | [address];[place] | | | | | | [address] | | | | + + + + + + | MCH | 34.4 (H)Comment: Testing | 27.0 - 34.0 pg | EXTERNAL | | | | performed at [facility];[address] | | LAB | | | | [address];[place] | | | | | | [address] | | | | + + + + + + | MCHC | 35.1Comment: Testing | 32.0 - 35.5 | EXTERNAL | | | | performed at [facility];[address] | g/dL | LAB | | | | [address];[place] | | | | | | [address] | | | | + + + + + + | RDW-CV | 41.6Comment: Testing | 37 - 53 fl | EXTERNAL | | | | performed at [facility];[address] | | LAB | | | | [address];[place] | | | | | | [address] | | | | + + + + + + | Platelet | 252Comment: Testing | 150 - 400 K/uL | EXTERNAL | | | Count | performed at [facility];[address] | | LAB | | | Plasma | [address];[place] | | | | | | [address] | | | | + + + + + + | MPV | 7.8Comment: Testing | fl | EXTERNAL | | | | performed at [facility];[address] | | LAB | | | | [address];[place] | | | | | | [address] | | | | + + + + + + | Differentia | MANUALComment: Testing | | EXTERNAL | | | l Type | performed at [facility];[address] | | LAB | | | | [address];[place] | | | | | | [address] | | | | + + + + + + | Segmented | 38Comment: Testing | % | EXTERNAL | | | Neutrophils | performed at [facility];[address] | | LAB | | | Manual | [address];[place] | | | | | | [address] | | | | + + + + + + | % Bands | 36Comment: Testing | % | EXTERNAL | | | | performed at [facility];[address] | | LAB | | | | [address];[place] | | | | | | [address] | | | | + + + + + + | Lymphocytes | 6Comment: Testing | % | EXTERNAL | | | Manual | performed at [facility];[address] | | LAB | | | | [address];[place] | | | | | | [address] | | | | + + + + + + | Monocytes | 20Comment: Testing | % | EXTERNAL | | | Manual | performed at [facility];[address] | | LAB | | | | [address];[place] | | | | | | [address] | | | | + + + + + + | RBC | RBC AND PLT MORPHOLOGY | | EXTERNAL | | | Morphology | APPEAR NORMALComment: | | LAB | | | | Testing performed at | | | | | | [facility];[address];[place] [address] | | | | + + + [...] EXTERNAL | | | | performed at [facility];[address] | | LAB | | | | [address];[place] | | | | | | [address] | | | | + + + [...] EXTERNAL | | | | performed at [facility];[address] | mmol/L | LAB | | | | [address];[place] | | | | | | [address] | | | | + + + + + + | K | 4.0Comment: Testing | 3.5 - 4.9 | EXTERNAL | | | | performed at [facility];[address] | mmol/L | LAB | | | | [address];[place] | | | | | | [address] | | | | + + + + + + | Cl | 105Comment: Testing | 99 - 109 mmol/L | EXTERNAL | | | | performed at [facility];[address] | | LAB | | | | [address];[place] | | | | | | [address] | | | | + + + + + + | CO2 | 23Comment: Testing | 23 - 32 mmol/L | EXTERNAL | | | | performed at [facility];[address] | | LAB | | | | [address];[place] | | | | | | [address] | | | | + + + + + + | Anion Gap | 11Comment: Testing | 5 - 20 mmol/L | EXTERNAL | | | | performed at [facility];[address] | | LAB | | | | [address];[place] | | | | | | [address] | | | | + + + + + + | Glucose, | 134 (H)Comment: Testing | 65 - 99 mg/dL | EXTERNAL | | | Fasting | performed at [facility];[address] | | LAB | | | | [address];[place] | | | | | | [address] | | | | + + + + + + | BUN | 19Comment: Testing | 8 - 25 mg/dL | EXTERNAL | | | | performed at [facility];[address] | | LAB | | | | [address];[place] | | | | | | [address] | | | | + + + + + + | Creatinine | 1.8 (H)Comment: Testing | 0.70 - 1.30 | EXTERNAL | | | | performed at [facility];[address] | mg/dL | LAB | | | | [address];[place] | | | | | | [address] | | | | + + + + + + | BUN/Creatin | 10Comment: Testing | | EXTERNAL | | | ine Ratio | performed at [facility];[address] | | LAB | | | | [address];[place] | | | | | | [address] | | | | + + + + + + | Calcium | 8.1 (L)Comment: Testing | 8.5 - 10.5 | EXTERNAL | | | | performed at [facility];[address] | mg/dL | LAB | | | | [address];[place] | | | | | | [address] | | | | + + + [...] | | | | | | at [facility];[address] [place] [address] | | | | | | [facility];[place] [address] | | | | + + + [...] HAND | | | Testing performed at [facility];[address] | | | [facility];[place] [address] CULTURE | | | NO GROWTH | | | Testing performed at [facility], [address] [facility], [place], [place] | | | [address] | | + + + + +---------+ [...] HAND | | | Testing performed at [facility];[address] | | | [facility];[place] [address] CULTURE | | | NO GROWTH | | | Testing performed at [facility], [address] [facility], [place], [place] | | | [address] | | + + + + +---------+ [...] PDT JOSE EATONXR ABDOMEN ACUTE | | WHHOBQ3501/11/2015 7:31 AM History: 64 years. Male. Acute [...] EXTERNAL | | | | performed at [facility], [address] | K/uL | LAB | | | | [address], | | | | | | [place] [address] | | | | + + + + + + | RED CELL | 3.64 (L)Comment: Testing | 4.20 - 5.70 | EXTERNAL | | | COUNT | performed at [facility], [address] | M/uL | LAB | | | | [address], | | | | | | [place] [address] | | | | + + + + + + | Hgb | 12.4 (L)Comment: Testing | 13.2 - 17.0 | EXTERNAL | | | | performed at [facility], [address] | g/dL | LAB | | | | [address], | | | | | | [place] [address] | | | | + + + + + + | Hematocrit, | 35.9 (L)Comment: Testing | 39.0 - 50.0 % | EXTERNAL | | | POC | performed at [facility], [address] | | LAB | | | | [address], | | | | | | [place] [address] | | | | + + + + + + | MCV | 98.7Comment: Testing | 80.0 - 100.0 fl | EXTERNAL | | | | performed at [facility], [address] | | LAB | | | | [address], | | | | | | [place] [address] | | | | + + + + + + | MCH | 34.0Comment: Testing | 27.0 - 34.0 pg | EXTERNAL | | | | performed at [facility], [address] | | LAB | | | | [address], | | | | | | [place] [address] | | | | + + + + + + | MCHC | 34.5Comment: Testing | 32.0 - 35.5 | EXTERNAL | | | | performed at [facility], [address] | g/dL | LAB | | | | [address], | | | | | | [place] [address] | | | | + + + + + + | RDW-CV | 41.1Comment: Testing | 37 - 53 fl | EXTERNAL | | | | performed at [facility], [address] | | LAB | | | | [address], | | | | | | [place] [address] | | | | + + + + + + | Platelet | 266Comment: Testing | 150 - 400 K/uL | EXTERNAL | | | Count | performed at [facility], [address] | | LAB | | | Plasma | [address], | | | | | | [place] [address] | | | | + + + + + + | MPV | 8.6Comment: Testing | fl | EXTERNAL | | | | performed at [facility], [address] | | LAB | | | | [address], | | | | | | [place] [address] | | | | + + + + + + | Differentia | AUTOMATEDComment: | | EXTERNAL | | | l Type | Testing performed at | | LAB | | | | [facility], [address] | | | | | | [place] | | | | | | [address] | | | | + + + + + + | % Segmented | 73.35Comment: Testing | % | EXTERNAL | | | | performed at [facility], [address] | | LAB | | | Neutrophils | [address], | | | | | | [place] [address] | | | | + + + + + + | % | 8.54Comment: Testing | % | EXTERNAL | | | Lymphocytes | performed at [facility], [address] | | LAB | | | | [address], | | | | | | [place], [place] [address] | | | | + + + + + + | % Monocytes | 13.66Comment: Testing | % | EXTERNAL | | | | performed at [facility], [address] | | LAB | | | | [address], | | | | | | [place] [address] | | | | + + + + + + | % | 4.07Comment: Testing | % | EXTERNAL | | | Eosinophils | performed at [facility], [address] | | LAB | | | | [address], | | | | | | [place] [address] | | | | + + + + + + | % Basophils | 0.38Comment: Testing | % | EXTERNAL | | | | performed at [facility], [address] | | LAB | | | | [address], | | | | | | [place] [address] | | | | + + + + + + | Absolute | 3.36Comment: Testing | 1.90 - 7.40 | EXTERNAL | | | Segmented | performed at [facility], [address] | K/uL | LAB | | | Neutrophils | [address], | | | | | | [place] [address] | | | | + + + + + + | Absolute | 0.39 (L)Comment: Testing | 1.00 - 3.90 | EXTERNAL | | | Lymphocytes | performed at [facility], [address] | K/uL | LAB | | | | [address], | | | | | | [place] [address] | | | | + + + + + + | Absolute | 0.63Comment: Testing | 0.00 - 0.80 | EXTERNAL | | | Monocytes | performed at [facility], [address] | K/uL | LAB | | | | [address], | | | | | | [place] [address] | | | | + + + + + + | Absolute | 0.19Comment: Testing | 0.00 - 0.50 | EXTERNAL | | | Eosinophils | performed at [facility], [address] | K/uL | LAB | | | | [address], | | | | | | [place] [address] | | | | + + + + + + | Absolute | 0.02Comment: Testing | 0.00 - 0.10 | EXTERNAL | | | Basophils | performed at [facility], [address] | K/uL | LAB | | | | [address], | | | | | | [place] [address] | | | | + + + [...] EXTERNAL | | | | performed at [facility], [address] | | LAB | | | | [address], | | | | | | [place] [address] | | | | + + + [...] EXTERNAL | | | | performed at [facility], [address] | | LAB | | | | [address], | | | | | | [place] [address] | | | | + + + [...] | | | | [place] [address] | | | | + + + + + + | K | 4.1Comment: Testing | 3.5 - 4.9 | EXTERNAL | | | | performed at [facility], [address] | mmol/L | LAB | | | | [address], | | | | | | [place] [address] | | | | + + + [...] | | | | [place] [address] | | | | + + + + + + | Anion Gap | 10Comment: Testing | 5 - 20 mmol/L | EXTERNAL | | | | performed at [facility], [address] | | LAB | | | | [address], | | | | | | [place] [address] | | | | + + + + + + | Glucose, | 135 (H)Comment: Testing | 65 - 99 mg/dL | EXTERNAL | | | Fasting | performed at [facility], [address] | | LAB | | | | [address], | | | | | | [place] [address] | | | | + + + + + + | BUN | 12Comment: Testing | 8 - 25 mg/dL | EXTERNAL | | | | performed at [facility], [address] | | LAB | | | | [address], | | | | | | [place] [address] | | | | + + + + + + | Creatinine | 0.67 (L)Comment: Testing | 0.70 - 1.30 | EXTERNAL | | | | performed at [facility], [address] | mg/dL | LAB | | | | [address], | | | | | | [place] [address] | | | | + + + + + + | BUN/Creatin | 18Comment: Testing | | EXTERNAL | | | ine Ratio | performed at [facility], [address] | | LAB | | | | [address], | | | | | | [place] [address] | | | | + + + + + + | Calcium | 8.8Comment: Testing | 8.5 - 10.5 | EXTERNAL | | | | performed at [facility], [address] | mg/dL | LAB | | | | [facility], | | | | | | [place] [address] | | | | + + + [...] W | | | | | | [facility], | | | | | | [place] [address] | | | | + + + [...] EXTERNAL | | | | performed at [facility], [address] | K/uL | LAB | | | | [address], | | | | | | [place] [address] | | | | + + + + + + | RED CELL | 3.87 (L)Comment: Testing | 4.20 - 5.70 | EXTERNAL | | | COUNT | performed at [facility], [address] | M/uL | LAB | | | | [address], | | | | | | [place] [address] | | | | + + + + + + | Hgb | 13.3Comment: Testing | 13.2 - 17.0 | EXTERNAL | | | | performed at [facility], [address] | g/dL | LAB | | | | [address], | | | | | | [place] [address] | | | | + + + + + + | Hematocrit, | 38.1 (L)Comment: Testing | 39.0 - 50.0 % | EXTERNAL | | | POC | performed at [facility], [address] | | LAB | | | | [address], | | | | | | [place] [address] | | | | + + + + + + | MCV | 98.6Comment: Testing | 80.0 - 100.0 fl | EXTERNAL | | | | performed at [facility], [address] | | LAB | | | | [address], | | | | | | [place] [address] | | | | + + + + + + | MCH | 34.4 (H)Comment: Testing | 27.0 - 34.0 pg | EXTERNAL | | | | performed at [facility], [address] | | LAB | | | | [address], | | | | | | [place] [address] | | | | + + + + + + | MCHC | 34.9Comment: Testing | 32.0 - 35.5 | EXTERNAL | | | | performed at [facility], [address] | g/dL | LAB | | | | [address], | | | | | | [place] [address] | | | | + + + + + + | RDW-CV | 40.3Comment: Testing | 37 - 53 fl | EXTERNAL | | | | performed at [facility], [address] | | LAB | | | | [address], | | | | | | [place] [address] | | | | + + + + + + | Platelet | 256Comment: Testing | 150 - 400 K/uL | EXTERNAL | | | Count | performed at [facility], [address] | | LAB | | | Plasma | [address], | | | | | | [place] [address] | | | | + + + + + + | MPV | 8.4Comment: Testing | fl | EXTERNAL | | | | performed at [facility], [address] | | LAB | | | | [address], | | | | | | [place] [address] | | | | + + + + + + | Differentia | AUTOMATEDComment: | | EXTERNAL | | | l Type | Testing performed at | | LAB | | | | [facility], [address] | | | | | [address], [place], [place] | | | | | | [address] | | | | + + + + + + | % Segmented | 74.27Comment: Testing | % | EXTERNAL | | | | performed at [facility], [address] | | LAB | | | Neutrophils | [address], | | | | | | [place] [address] | | | | + + + + + + | % | 6.19Comment: Testing | % | EXTERNAL | | | Lymphocytes | performed at [facility], [address] | | LAB | | | | [address], | | | | | | [place] [address] | | | | + + + + + + | % Monocytes | 14.96Comment: Testing | % | EXTERNAL | | | | performed at [facility], [address] | | LAB | | | | [address], | | | | | | [place] [address] | | | | + + + + + + | % | 4.17Comment: Testing | % | EXTERNAL | | | Eosinophils | performed at [facility], [address] | | LAB | | | | [address], | | | | | | [place] [address] | | | | + + + + + + | % Basophils | 0.41Comment: Testing | % | EXTERNAL | | | | performed at [facility], [address] | | LAB | | | | [address], | | | | | | [place] [address] | | | | + + + + + + | Absolute | 3.48Comment: Testing | 1.90 - 7.40 | EXTERNAL | | | Segmented | performed at [facility], [address] | K/uL | LAB | | | Neutrophils | [address], | | | | | | [place] [address] | | | | + + + + + + | Absolute | 0.29 (L)Comment: Testing | 1.00 - 3.90 | EXTERNAL | | | Lymphocytes | performed at [facility], [address] | [address]/u[address] | LAB | | | | [address], | | | | | | [place] [address] | | | | + + + + + + | Absolute | 0.70Comment: Testing | 0.00 - 0.80 | EXTERNAL | | | Monocytes | performed at [facility], [address] | K/uL | LAB | | | | [address], | | | | | | [place] [address] | | | | + + + + + + | Absolute | 0.20Comment: Testing | 0.00 - 0.50 | EXTERNAL | | | Eosinophils | performed at [facility], [address] | K/uL | LAB | | | | [address], | | | | | | [place] [address] | | | | + + + + + + | Absolute | 0.02Comment: Testing | 0.00 - 0.10 | EXTERNAL | | | Basophils | performed at [facility], [address] | K/uL | LAB | | | | [address], | | | | | | [place] [address] | | | | + + + [...] EXTERNAL | | | | performed at [facility], [address] | | LAB | | | | [address], | | | | | | [place] [address] | | | | + + + [...] EXTERNAL | | | | performed at [facility], [address] | | LAB | | | | [address], | | | | | | [place] [address] | | | | + + + [...] | | | | [place] [address] | | | | + + + + + + | K | 4.6Comment: Testing | 3.5 - 4.9 | EXTERNAL | | | | performed at [facility], [address] | mmol/L | LAB | | | | [address], | | | | | | [place] [address] | | | | + + + + + + | Cl | 101Comment: Testing | 99 - 109 mmol/L | EXTERNAL | | | | performed at [facility], [address] | | LAB | | | | [address], | | | | | | [place] [address] | | | | + + + + + + | CO2 | 24Comment: Testing | 23 - 32 mmol/L | EXTERNAL | | | | performed at [facility], [address] | | LAB | | | | [address], | | | | | | [place] [address] | | | | + + + + + + | Anion Gap | 11Comment: Testing | 5 - 20 mmol/L | EXTERNAL | | | | performed at [facility], [address] | | LAB | | | | [address], | | | | | | [place] [address] | | | | + + + + + + | Glucose, | 131 (H)Comment: Testing | 65 - 99 mg/dL | EXTERNAL | | | Fasting | performed at [facility], [address] | | LAB | | | | [address], | | | | | | [place] [address] | | | | + + + + + + | BUN | 14Comment: Testing | 8 - 25 mg/dL | EXTERNAL | | | | performed at [facility], [address] | | LAB | | | | [address], | | | | | | [place] [address] | | | | + + + + + + | Creatinine | 0.93Comment: Testing | 0.70 - 1.30 | EXTERNAL | | | | performed at [facility], [address] | mg/dL | LAB | | | | [address], | | | | | | [place] [address] | | | | + + + + + + | BUN/Creatin | 15Comment: Testing | | EXTERNAL | | | ine Ratio | performed at [facility], [address] | | LAB | | | | [address], | | | | | | [place] [address] | | | | + + + + + + | Calcium | 9.1Comment: Testing | 8.5 - 10.5 | EXTERNAL | | | | performed at [facility], [address] | mg/dL | LAB | | | | [address], | | | | | | [place] [address] | | | | + + + [...] [address], | | | | | | [place] [address] | | | | + + + [...] EXTERNAL | | | | performed at [facility], [address] | K/uL | LAB | | | | [address], | | | | | | [place] [address] | | | | + + + + + + | RED CELL | 3.85 (L)Comment: Testing | 4.20 - 5.70 | EXTERNAL | | | COUNT | performed at [facility], [address] | M/uL | LAB | | | | [address], | | | | | | [place] [address] | | | | + + + + + + | Hgb | 13.2Comment: Testing | 13.2 - 17.0 | EXTERNAL | | | | performed at [facility], [address] | g/dL | LAB | | | | [address], | | | | | | [place] [address] | | | | + + + + + + | Hematocrit, | 37.6 (L)Comment: Testing | 39.0 - 50.0 % | EXTERNAL | | | POC | performed at [facility], [address] | | LAB | | | | [address], | | | | | | [place] [address] | | | | + + + + + + | MCV | 97.8Comment: Testing | 80.0 - 100.0 fl | EXTERNAL | | | | performed at [facility], [address] | | LAB | | | | [address], | | | | | | [place] [address] | | | | + + + + + + | MCH | 34.4 (H)Comment: Testing | 27.0 - 34.0 pg | EXTERNAL | | | | performed at [facility], [address] | | LAB | | | | [address], | | | | | | [place] [address] | | | | + + + + + + | MCHC | 35.2Comment: Testing | 32.0 - 35.5 | EXTERNAL | | | | performed at [facility], [address] | g/dL | LAB | | | | [address], | | | | | | [place] [address] | | | | + + + + + + | RDW-CV | 39.4Comment: Testing | 37 - 53 fl | EXTERNAL | | | | performed at [facility], [address] | | LAB | | | | [address], | | | | | | [place] [address] | | | | + + + + + + | Platelet | 223Comment: Testing | 150 - 400 K/uL | EXTERNAL | | | Count | performed at [facility], [address] | | LAB | | | Plasma | [address], | | | | | | [place] [address] | | | | + + + + + + | MPV | 8.7Comment: Testing | fl | EXTERNAL | | | | performed at [facility], [address] | | LAB | | | | [address], | | | | | | [place] [address] | | | | + + + + + + | Differentia | AUTOMATEDComment: | | EXTERNAL | | | l Type | Testing performed at | | LAB | | | | [facility], [address] | | | | | | [place] | | | | | | [address] | | | | + + + + + + | % Segmented | 84.48Comment: Testing | % | EXTERNAL | | | | performed at [facility], [address] | | LAB | | | Neutrophils | [address], | | | | | | [place] [address] | | | | + + + + + + | % | 5.21Comment: Testing | % | EXTERNAL | | | Lymphocytes | performed at [facility], [address] | | LAB | | | | [address], | | | | | | [place] [address] | | | | + + + + + + | % Monocytes | 7.48Comment: Testing | % | EXTERNAL | | | | performed at [facility], [address] | | LAB | | | | [address], | | | | | | [place] [address] | | | | + + + + + + | % | 2.30Comment: Testing | % | EXTERNAL | | | Eosinophils | performed at [facility], [address] | | LAB | | | | [address], | | | | | | [place] [address] | | | | + + + + + + | % Basophils | 0.53Comment: Testing | % | EXTERNAL | | | | performed at [facility], [address] | | LAB | | | | [address], | | | | | | [place] [address] | | | | + + + + + + | Absolute | 6.70Comment: Testing | 1.90 - 7.40 | EXTERNAL | | | Segmented | performed at [facility], [address] | K/uL | LAB | | | Neutrophils | [address], | | | | | | [place] [address] | | | | + + + + + + | Absolute | 0.41 (L)Comment: Testing | 1.00 - 3.90 | EXTERNAL | | | Lymphocytes | performed at [facility], [address] | [address] | LAB | | | | [address], | | | | | | [place] [address] | | | | + + + + + + | Absolute | 0.59Comment: Testing | 0.00 - 0.80 | EXTERNAL | | | Monocytes | performed at [facility], [address] | K/uL | LAB | | | | [address], | | | | | | [place] [address] | | | | + + + + + + | Absolute | 0.18Comment: Testing | 0.00 - 0.50 | EXTERNAL | | | Eosinophils | performed at [facility], [address] | K[address]L | LAB | | | | [address], | | | | | | [place] [address] | | | | + + + + + + | Absolute | 0.04Comment: Testing | 0.00 - 0.10 | EXTERNAL | | | Basophils | performed at [facility], [address] | K/uL | LAB | | | | [address], | | | | | | [place] [address] | | | | + + + [...] | | | | [place] [address] | | | | + + + [...] EXTERNAL | | | | performed at [facility], [address] | | LAB | | | | [address], | | | | | | [place] [address] | | | | + + + [...] | | | | [place] [address] | | | | + + + + + + | K | 4.1Comment: Testing | 3.5 - 4.9 | EXTERNAL | | | | performed at [facility], [address] | mmol/L | LAB | | | | [address], | | | | | | [place] [address] | | | | + + + + + + | Cl | 100Comment: Testing | 99 - 109 mmol/L | EXTERNAL | | | | performed at [facility], [address] | | LAB | | | | [address], | | | | | | [place] [address] | | | | + + + + + + | CO2 | 23Comment: Testing | 23 - 32 mmol/L | EXTERNAL | | | | performed at [facility], [address] | | LAB | | | | [address], | | | | | | [place] [address] | | | | + + + + + + | Anion Gap | 10Comment: Testing | 5 - 20 mmol/L | EXTERNAL | | | | performed at [facility], [address] | | LAB | | | | [address], | | | | | | [place] [address] | | | | + + + + + + | Glucose, | 144 (H)Comment: Testing | 65 - 99 mg/dL | EXTERNAL | | | Fasting | performed at [facility], [address] | | LAB | | | | [address], | | | | | | [place] [address] | | | | + + + + + + | BUN | 7 (L)Comment: Testing | 8 - 25 mg/dL | EXTERNAL | | | | performed at [facility], [address] | | LAB | | | | [address], | | | | | | [place] [address] | | | | + + + + + + | Creatinine | 0.54 (L)Comment: Testing | 0.70 - 1.30 | EXTERNAL | | | | performed at [facility], [address] | mg/dL | LAB | | | | [address], | | | | | | [place] [address] | | | | + + + + + + | BUN/Creatin | 13Comment: Testing | | EXTERNAL | | | ine Ratio | performed at [facility], [address] | | LAB | | | | [address], | | | | | | [place] [address] | | | | + + + + + + | Calcium | 9.1Comment: Testing | 8.5 - 10.5 | EXTERNAL | | | | performed at [facility], [address] | mg/dL | LAB | | | | [address], | | | | | | [place] [address] | | | | + + + [...] | | | | [place] [address] | | | | + + + [...] EXTERNAL | | | | performed at [facility] | | LAB | | | | [address];[place] | | | | | | [address] | | | | + + + [...] K/uL | LAB | | | | [address], | | | | | | [place] [address] | | | | + + + + + + | RED CELL | 3.27 (L)Comment: Testing | 4.20 - 5.70 | EXTERNAL | | | COUNT | performed at [facility], [address] | [address]uL | LAB | | | | [address], | | | | | | [place] [address] | | | | + + + + + + | Hgb | 11.2 (L)Comment: Testing | 13.2 - 17.0 | EXTERNAL | | | | performed at [facility], [address] | g/dL | LAB | | | | [address], | | | | | | [place] [address] | | | | + + + + + + | Hematocrit, | 32.3 (L)Comment: Testing | 39.0 - 50.0 % | EXTERNAL | | | POC | performed at [facility], [address] | | LAB | | | | [address], | | | | | | [place] [address] | | | | + + + + + + | MCV | 98.9Comment: Testing | 80.0 - 100.0 fl | EXTERNAL | | | | performed at [facility], [address] | | LAB | | | | [address], | | | | | | [place] [address] | | | | + + + + + + | MCH | 34.4 (H)Comment: Testing | 27.0 - 34.0 pg | EXTERNAL | | | | performed at [facility], [address] | | LAB | | | | [address], | | | | | | [place] [address] | | | | + + + + + + | MCHC | 34.8Comment: Testing | 32.0 - 35.5 | EXTERNAL | | | | performed at [facility], [address] | g/dL | LAB | | | | [address], | | | | | | [place] [address] | | | | + + + + + + | RDW-CV | 41.6Comment: Testing | 37 - 53 fl | EXTERNAL | | | | performed at [facility], [address] | | LAB | | | | [address], | | | | | | [place] [address] | | | | + + + + + + | Platelet | 204Comment: Testing | 150 - 400 K/uL | EXTERNAL | | | Count | performed at [facility], [address] | | LAB | | | Plasma | [address], | | | | | | [place] [address] | | | | + + + + + + | MPV | 8.5Comment: Testing | fl | EXTERNAL | | | | performed at [facility], [address] | | LAB | | | | [address], | | | | | | [place] [address] | | | | + + + + + + | Differentia | AUTOMATEDComment: | | EXTERNAL | | | l Type | Testing performed at | | LAB | | | | [facility], [address] | | | | | | [place] | | | | | | [address] | | | | + + + + + + | % Segmented | 73.92Comment: Testing | % | EXTERNAL | | | | performed at [facility], [address] | | LAB | | | Neutrophils | [address], | | | | | | [place] [address] | | | | + + + + + + | % | 8.09Comment: Testing | % | EXTERNAL | | | Lymphocytes | performed at [facility], [address] | | LAB | | | | [address], | | | | | | [place] [address] | | | | + + + + + + | % Monocytes | 8.93Comment: Testing | % | EXTERNAL | | | | performed at [facility], [address] | | LAB | | | | [address], | | | | | | [place] [address] | | | | + + + + + + | % | 8.19Comment: Testing | % | EXTERNAL | | | Eosinophils | performed at [facility], [address] | | LAB | | | | [address], | | | | | | [place] [address] | | | | + + + + + + | % Basophils | 0.87Comment: Testing | % | EXTERNAL | | | | performed at [facility], [address] | | LAB | | | | [address], | | | | | | [place] [address] | | | | + + + + + + | Absolute | 3.67Comment: Testing | 1.90 - 7.40 | EXTERNAL | | | Segmented | performed at [facility], [address] | K/uL | LAB | | | Neutrophils | [address], | | | | | | [place], [place] [address] | | | | + + + + + + | Absolute | 0.40 (L)Comment: Testing | 1.00 - 3.90 | EXTERNAL | | | Lymphocytes | performed at [facility], [address] | K/uL | LAB | | | | [address], | | | | | | [place], [place] [address] | | | | + + + + + + | Absolute | 0.44Comment: Testing | 0.00 - 0.80 | EXTERNAL | | | Monocytes | performed at [facility], [address] | K/uL | LAB | | | | [address], | | | | | | [place], [place] [address] | | | | + + + + + + | Absolute | 0.41Comment: Testing | 0.00 - 0.50 | EXTERNAL | | | Eosinophils | performed at [facility], [address] | K/uL | LAB | | | | [address], | | | | | | [place] [address] | | | | + + + + + + | Absolute | 0.04Comment: Testing | 0.00 - 0.10 | EXTERNAL | | | Basophils | performed at [facility], [address] | K/uL | LAB | | | | [address], | | | | | | [place] [address] | | | | + + + [...] EXTERNAL | | | | performed at [facility], [address] | | LAB | | | | [address], | | | | | | [place] [address] | | | | + + + [...] | | | | [place] [address] | | | | + + + [...] | | | | [place] [address] | | | | + + + + + + | K | 3.9Comment: Testing | 3.5 - 4.9 | EXTERNAL | | | | performed at [facility], [address] | mmol/L | LAB | | | | [address], | | | | | | [place] [address] | | | | + + + + + + | Cl | 104Comment: Testing | 99 - 109 mmol/L | EXTERNAL | | | | performed at [facility], [address] | | LAB | | | | [address], | | | | | | [place] [address] | | | | + + + + + + | CO2 | 23Comment: Testing | 23 - 32 mmol/L | EXTERNAL | | | | performed at [facility], [address] | | LAB | | | | [address], | | | | | | [place] [address] | | | | + + + + + + | Anion Gap | 8Comment: Testing | 5 - 20 mmol/L | EXTERNAL | | | | performed at [facility], [address] | | LAB | | | [address], | | | | | | [place] [address] | | | | + + + + + + | Glucose, | 114 (H)Comment: Testing | 65 - 99 mg/dL | EXTERNAL | | | Fasting | performed at [facility], [address] | | LAB | | | | [address], | | | | | | [place] [address] | | | | + + + + + + | BUN | 7 (L)Comment: Testing | 8 - 25 mg/dL | EXTERNAL | | | | performed at [facility], [address] | | LAB | | | | [address], | | | | | | [place] [address] | | | | + + + + + + | Creatinine | 0.68 (L)Comment: Testing | 0.70 - 1.30 | EXTERNAL | | | | performed at [facility], [address] | mg/dL | LAB | | | | [address], | | | | | | [place] [address] | | | | + + + + + + | BUN/Creatin | 10Comment: Testing | | EXTERNAL | | | ine Ratio | performed at [facility], [address] | | LAB | | | | [address], | | | | | | [place] [address] | | | | + + + + + + | Calcium | 8.5Comment: Testing | 8.5 - 10.5 | EXTERNAL | | | | performed at [facility], [address] | mg/dL | LAB | | | | [address], | | | | | | [place] [address] | | | | + + + [...] | | | | | | at [facility], [address] | | | | | | [facility], | | | | | | [place] [address] | | | | + + + [...] EXTERNAL | | | | performed at [facility], [address] | K/uL | LAB | | | | [address], | | | | | | [place] [address] | | | | + + + + + + | RED CELL | 3.52 (L)Comment: Testing | 4.20 - 5.70 | EXTERNAL | | | COUNT | performed at [facility], [address] | M/uL | LAB | | | | [address], | | | | | | [place] [address] | | | | + + + + + + | Hgb | 11.9 (L)Comment: Testing | 13.2 - 17.0 | EXTERNAL | | | | performed at [facility], [address] | g/dL | LAB | | | | [address], | | | | | | [place] [address] | | | | + + + + + + | Hematocrit, | 35.0 (L)Comment: Testing | 39.0 - 50.0 % | EXTERNAL | | | POC | performed at [facility], [address] | | LAB | | | | [address], | | | | | | [place] [address] | | | | + + + + + + | MCV | 99.2Comment: Testing | 80.0 - 100.0 fl | EXTERNAL | | | | performed at [facility], [address] | | LAB | | | | [address], | | | | | | [place] [address] | | | | + + + + + + | MCH | 33.8Comment: Testing | 27.0 - 34.0 pg | EXTERNAL | | | | performed at [facility], [address] | | LAB | | | | [address], | | | | | | [place] [address] | | | | + + + + + + | MCHC | 34.0Comment: Testing | 32.0 - 35.5 | EXTERNAL | | | | performed at [facility], [address] | g/dL | LAB | | | | [address], | | | | | | [place] [address] | | | | + + + + + + | RDW-CV | 40.7Comment: Testing | 37 - 53 fl | EXTERNAL | | | | performed at [facility], [address] | | LAB | | | | [address], | | | | | | [place] [address] | | | | + + + + + + | Platelet | 214Comment: Testing | 150 - 400 K/uL | EXTERNAL | | | Count | performed at [facility], [address] | | LAB | | | Plasma | [address], | | | | | | [place] [address] | | | | + + + + + + | MPV | 8.5Comment: Testing | fl | EXTERNAL | | | | performed at [facility], [address] | | LAB | | | | [address], | | | | | | [place] [address] | | | | + + + + + + | Differentia | AUTOMATEDComment: | | EXTERNAL | | | l Type | Testing performed at | | LAB | | | | [facility], [address] | | | | | | [place] | | | | | | [address] | | | | + + + + + + | % Segmented | 81.53Comment: Testing | % | EXTERNAL | | | | performed at [facility], [address] | | LAB | | | Neutrophils | [address] [place], | | | | | | [place] [address] | | | | + + + + + + | % | 6.67Comment: Testing | % | EXTERNAL | | | Lymphocytes | performed at [facility], [address] | | LAB | | | | [address], | | | | | | [place] [address] | | | | + + + + + + | % Monocytes | 6.91Comment: Testing | % | EXTERNAL | | | | performed at [facility], [address] | | LAB | | | | [address], | | | | | | [place] [address] | | | | + + + + + + | % | 4.53Comment: Testing | % | EXTERNAL | | | Eosinophils | performed at [facility], [address] | | LAB | | | | [address], | | | | | | [place] [address] | | | | + + + + + + | % Basophils | 0.36Comment: Testing | % | EXTERNAL | | | | performed at [facility], [address] | | LAB | | | | [address], | | | | | | [place] [address] | | | | + + + [...] | | | | [place] [address] | | | | + + + + + + | Absolute | 0.38Comment: Testing | 0.00 - 0.80 | EXTERNAL | | | Monocytes | performed at [facility], [address] | K/uL | LAB | | | | [address], | | | | | | [place] [address] | | | | + + + + + + | Absolute | 0.25Comment: Testing | 0.00 - 0.50 | EXTERNAL | | | Eosinophils | performed at [facility], [address] | K/uL | LAB | | | | [address], | | | | | | [place] [address] | | | | + + + + + + | Absolute | 0.02Comment: Testing | 0.00 - 0.10 | EXTERNAL | | | Basophils | performed at [facility], [address] | K/uL | LAB | | | | [address], | | | | | | [place] [address] | | | | + + + [...] EXTERNAL | | | | performed at [facility], [address] | | LAB | | | | [address], | | | | | | [place] [address] | | | | + + + [...] EXTERNAL | | | | performed at [facility], [address] | | LAB | | | | [facility], | | | | | | [place] [address] | | | | + + + [...] | | | | [place] [address] | | | | + + + + + + | K | 4.1Comment: Testing | 3.5 - 4.9 | EXTERNAL | | | | performed at [facility], [address] | mmol/L | LAB | | | | [address], | | | | | | [place] [address] | | | | + + + + + + | Cl | 104Comment: Testing | 99 - 109 mmol/L | EXTERNAL | | | | performed at [facility], [address] | | LAB | | | | [address], | | | | | | [place] [address] | | | | + + + + + + | CO2 | 23Comment: Testing | 23 - 32 mmol/L | EXTERNAL | | | | performed at [facility], [address] | | LAB | | | | [address], | | | | | | [place] [address] | | | | + + + + + + | Anion Gap | 8Comment: Testing | 5 - 20 mmol/L | EXTERNAL | | | | performed at [facility], [address] | | LAB | | | | [address], | | | | | | [place] [address] | | | | + + + + + + | Glucose, | 115 (H)Comment: Testing | 65 - 99 mg/dL | EXTERNAL | | | Fasting | performed at [facility], [address] | | LAB | | | | [address], | | | | | | [place] [address] | | | | + + + + + + | BUN | 7 (L)Comment: Testing | 8 - 25 mg/dL | EXTERNAL | | | | performed at [facility], [address] | | LAB | | | | [address], | | | | | | [place] [address] | | | | + + + + + + | Creatinine | 0.58 (L)Comment: Testing | 0.70 - 1.30 | EXTERNAL | | | | performed at [facility], [address] | mg/dL | LAB | | | | [address], | | | | | | [place] [address] | | | | + + + + + + | BUN/Creatin | 12Comment: Testing | | EXTERNAL | | | ine Ratio | performed at [facility], [address] | | LAB | | | | [address], | | | | | | [place] [address] | | | | + + + + + + | Calcium | 8.6Comment: Testing | 8.5 - 10.5 | EXTERNAL | | | | performed at [facility], [address] | mg/dL | LAB | | | | [address], | | | | | | [place] [address] | | | | + + + [...] | | | | [place] [address] | | | | + + + [...] | | | | [place] [address] | | | | + + + + + + | RED CELL | 3.39 (L)Comment: Testing | 4.20 - 5.70 | EXTERNAL | | | COUNT | performed at [facility], [address] | M/uL | LAB | | | | [address], | | | | | | [place] [address] | | | | + + + + + + | Hgb | 11.7 (L)Comment: Testing | 13.2 - 17.0 | EXTERNAL | | | | performed at [facility], [address] | g/dL | LAB | | | | [address], | | | | | | [place] [address] | | | | + + + + + + | Hematocrit, | 34.1 (L)Comment: Testing | 39.0 - 50.0 % | EXTERNAL | | | POC | performed at [facility], [address] | | LAB | | | | [address], | | | | | | [place] [address] | | | | + + + + + + | MCV | 100.6 (H)Comment: | 80.0 - 100.0 fl | EXTERNAL | | | | Testing performed at | | LAB | | | | [facility], [address] | | | | | | [place] | | | | | | [address] | | | | + + + + + + | MCH | 34.5 (H)Comment: Testing | 27.0 - 34.0 pg | EXTERNAL | | | | performed at [facility], [address] | | LAB | | | | [address], | | | | | | [place] [address] | | | | + + + + + + | MCHC | 34.3Comment: Testing | 32.0 - 35.5 | EXTERNAL | | | | performed at [facility], [address] | g/dL | LAB | | | | [address], | | | | | | [place] [address] | | | | + + + + + + | RDW-CV | 41.1Comment: Testing | 37 - 53 fl | EXTERNAL | | | | performed at [facility], [address] | | LAB | | | | [address], | | | | | | [place] [address] | | | | + + + + + + | Platelet | 169Comment: Testing | 150 - 400 K/uL | EXTERNAL | | | Count | performed at [facility], [address] | | LAB | | | Plasma | [address], | | | | | | [place] [address] | | | | + + + + + + | MPV | 9.0Comment: Testing | fl | EXTERNAL | | | | performed at [facility], [address] | | LAB | | | | [address], | | | | | | [place] [address] | | | | + + + + + + | Differentia | AUTOMATEDComment: | | EXTERNAL | | | l Type | Testing performed at | | LAB | | | | [facility], [address] | | | | | | [place] | | | | | | [address] | | | | + + + + + + | % Segmented | 78.12Comment: Testing | % | EXTERNAL | | | | performed at [facility], [address] | | LAB | | | Neutrophils | [address], | | | | | | [place] [address] | | | | + + + + + + | % | 7.52Comment: Testing | % | EXTERNAL | | | Lymphocytes | performed at [facility], [address] | | LAB | | | | [address], | | | | | | [place] [address] | | | | + + + + + + | % Monocytes | 7.66Comment: Testing | % | EXTERNAL | | | | performed at [facility], [address] | | LAB | | | | [address], | | | | | | [place], [place] [address] | | | | + + + + + + | % | 6.09Comment: Testing | % | EXTERNAL | | | Eosinophils | performed at [facility], [address] | | LAB | | | | [address], | | | | | | [place], [place] [address] | | | | + + + + + + | % Basophils | 0.61Comment: Testing | % | EXTERNAL | | | | performed at [facility], [address] | | LAB | | | | [address], | | | | | | [place] [address] | | | | + + + + + + | Absolute | 3.37Comment: Testing | 1.90 - 7.40 | EXTERNAL | | | Segmented | performed at [facility], [address] | K/uL | LAB | | | Neutrophils | [address], | | | | | | [place] [address] | | | | + + + + + + | Absolute | 0.32 (L)Comment: Testing | 1.00 - 3.90 | EXTERNAL | | | Lymphocytes | performed at [facility], [address] | [address] | LAB | | | | [address], | | | | | | [place] [address] | | | | + + + + + + | Absolute | 0.33Comment: Testing | 0.00 - 0.80 | EXTERNAL | | | Monocytes | performed at [facility], [address] | K/uL | LAB | | | | [address] [place], | | | | | | [place] [address] | | | | + + + + + + | Absolute | 0.26Comment: Testing | 0.00 - 0.50 | EXTERNAL | | | Eosinophils | performed at [facility], [address] | K/uL | LAB | | | | [address], | | | | | | [place] [address] | | | | + + + + + + | Absolute | 0.03Comment: Testing | 0.00 - 0.10 | EXTERNAL | | | Basophils | performed at [facility], [address] | K[address]uL | LAB | | | | [address], | | | | | | [place] [address] | | | | + + + [...] EXTERNAL | | | | performed at [facility], [address] | | LAB | | | | [place], | | | | | | [place] [address] | | | | + + + [...] EXTERNAL | | | | performed at [facility], [address] | | LAB | | | | [address], | | | | | | [place] [address] | | | | + + + [...] | | | | [place] [address] | | | | + + + + + + | K | 4.2Comment: Testing | 3.5 - 4.9 | EXTERNAL | | | | performed at [facility], [address] | mmol/L | LAB | | | | [place], | | | | | | [place] [address] | | | | + + + + + + | Cl | 104Comment: Testing | 99 - 109 mmol/L | EXTERNAL | | | | performed at [facility], [address] | | LAB | | | | [place], | | | | | | [place] [address] | | | | + + + + + + | CO2 | 25Comment: Testing | 23 - 32 mmol/L | EXTERNAL | | | | performed at [facility], [address] | | LAB | | | | [address], | | | | | | [place] [address] | | | | + + + + + + | Anion Gap | 6Comment: Testing | 5 - 20 mmol/L | EXTERNAL | | | | performed at [facility], [address] | | LAB | | | | [address], | | | | | | [place] [address] | | | | + + + + + + | Glucose, | 101 (H)Comment: Testing | 65 - 99 mg/dL | EXTERNAL | | | Fasting | performed at [facility], [address] | | LAB | | | | [address], | | | | | | [place] [address] | | | | + + + + + + | BUN | 5 (L)Comment: Testing | 8 - 25 mg/dL | EXTERNAL | | | | performed at [facility], [address] | | LAB | | | | [address] [place], | | | | | | [place] [address] | | | | + + + + + + | Creatinine | 0.59 (L)Comment: Testing | 0.70 - 1.30 | EXTERNAL | | | | performed at [facility], [address] | mg/dL | LAB | | | | [address], | | | | | | [place] [address] | | | | + + + + + + | BUN/Creatin | 8Comment: Testing | | EXTERNAL | | | ine Ratio | performed at [facility], [address] | | LAB | | | [address], | | | | | | [place] [address] | | | | + + + + + + | Calcium | 8.2 (L)Comment: Testing | 8.5 - 10.5 | EXTERNAL | | | | performed at [facility], [address] | mg/dL | LAB | | | | [address], | | | | | | [place] [address] | | | | + + + [...] | | | | | | [facility], | | | | | | [place] [address] | | | | + + + [...] | [id number] As part of the Cycle Director Program, this case was | | | reviewed by another member of [facility]. (CIELOK) GROSS | | | DESCRIPTION: [...] cm in greatest | | | dimension. Heart Specialist sections are submitted in 11 cassettes. | [...] interpretation and technical preparation was performed by [facility] | | | [address], | | | [place] [address] (Manager Of Tax: Rahul Adamson M.D.; CLIA#: | | | [id number]). Diagnostician: Paxton Velazquez MD Pathologist | | [...] EXTERNAL | | | | performed at [facility];[address] | | LAB | | | | [address];[place], [place] | | | | | | [address] | | | | + + + [...] | | | | | | ACUTE DC Testing | | | | | | performed at [facility];[address] | | | | | | [address];[place], [place] | | | | | | [address] | | | | + + + [...] LAB | | | | performed at [facility];[address] | | | | | | [address];[place], [place] | | | | | | [address] | | | | + + + [...] | | | Excursion: 2.11 cm E-F [place]: 0.10 m/s EPSS: 0.32 cm AR | | | Dec [place]: 1.57 m/s2 AR Dec Time: 2098.37 ms [...] | | mmHg TR Vmax: 2.28 m/s Lead Section Supervisor: PRERNA Authenticated by: Fifi | | | [...] (A-L): 27.46 ml/m2LAAs A2C: | | 15.68 [id number] A-L A2C: 42.11 mlLALs A2C: 4.95 cmLAAs A4C: 18.20 [id number] A-L | | A4C: 45.19 mlLALs A4C: 6.22 cmAo Diam: 2.69 cmAV Cusp: 1.32 cmLA Diam: 4.21 | | cmLA/Ao: 1.56%FS: 46.57 %EDV(Teich): 103.90 mlEF(Teich): 77.93 %ESV(Teich): | | 22.92 mlIVSd: 1.00 cmIVSs: 1.65 cmLVIDd: 4.73 cmLVIDs: 2.52 cmLVPWd: 1.03 | | cmLVPWs: 1.74 cmSV(Teich): 80.97 mlD-E Excursion: 2.11 cmE-F [place]: 0.10 | | m/sEPSS: 0.32 cmAR Dec [place]: 1.57 m/s2AR Dec Time: 2097. msAR maxP.59 | | mmHgAR PHT: 608.52 msAR Vmax: 3.18 m/sHR: 111.10 BPMAV maxP.52 mmHgAV | | meanP.76 mmHgAV Vmax: 1.06 m/Svetlana Vmean: 0.79 m/Svetlana VTI: 17.97 cmAVA Vmax: | | 2.02 cm2AVA (VTI): 1.81 [id number] (Vmax): 0.00 cm2/m2AVAI (VTI): 0.00 cm2/m2LVCI | | Dopp: 2.34 l/[id number] Dopp: 4.16 l/minHR: 127.41 BPMLVOT maxP.53 mmHgLVOT | | meanP.15 mmHgLVSI Dopp: 18.38 ml/m2LVSV Dopp: 32.72 mlLVOT Vmax: 0.79 | | m/sLVOT Vmean: 0.50 m/sLVOT VTI: 12.09 cmMV E [place]: 0.90 m/sMV PHT: 44.29 msMVA | | By PHT: 4.96 cm2MV maxP.74 mmHgMV meanP.40 mmHgMV Vmax: 0.82 m/sMV | | Vmean: 0.55 m/sMV VTI: 12.57 cmMVA (VTI): 2.60 wy1Luihup e': 0.09 m/sSeptal | | E/e': 9.16Lateral e': 0.12 m/sLateral E/e': 7.15P Vein D: 0.34 m/sP Vein S/D | | Ratio: 0.57P Vein S: 0.19 m/sHR: 123.85 BPMPV maxP.14 mmHgPV meanP.14 | | mmHgPV Vmax: 0.73 m/sPV Vmean: 0.50 m/sPV VTI: 11.59 cmRAP: 10 mmHgRVSP: 30.95 | | mmHgTR maxP.95 mmHgTR Vmax: 2.28 m/s Lead Section Supervisor: Ronaldted by: Fifi | | [facility] Date/Time: 01-05-2015 16:14:35 IMPRESSION: 1. Overall left [...] | |D-E [place]: 2.11 cm | |E-F [place]: 0.10 m/s | |EPSS: 0.32 cm | |AR Dec [place]: 1.57 m/s2 | |AR Dec Time: 2098.37 [...] |TR Vmax: 2.28 m/s | | | |Lead Section Supervisor: PRERNA | |Authenticated by: Fifi Castañeda MD [...] EXTERNAL | | | | performed at [facility], [address] | | LAB | | | | [address], | | | | | | [place] [address] | | | | + + + + + + | T4 Total, | 6.8Comment: Testing | 4.7 - 11.3 | EXTERNAL | | | External | performed at [facility], [address] | ug/dL | LAB | | | | [address], | | | | | | [place] [address] | | | | + + + + + + | Free | 2.5Comment: Testing | 1.1 - 4.6 | EXTERNAL | | | Thyroxine | performed at [facility], [address] | | LAB | | | Index, | [address], | | | | | External | [place] [address] | | | | + + + + + + | TSI | 2.53Comment: Testing | 0.45 - 5.10 | EXTERNAL | | | | performed at [facility], [address] | uIU/mL | LAB | | | | [address], | | | | | | [place] [address] | | | | + + + [...] EXTERNAL | | | | performed at [facility];[address] | | LAB | | | | [address] [facility];[place], [place] | | | | | | [address] | | | | + + + [...] | | | | | | ACUTE DC Testing | | | | | | performed at [facility];[address] | | | | | | [address];[place] | | | | | | [address] | | | | + + + [...] EXTERNAL | | | | performed at [facility];[address] | | LAB | | | | [address];[place] | | | | | | [address] | | | | + + + [...] + + | Hemoglobin | 5.0Comment: The [place] | 4.0 - 6.0 % | EXTERNAL [...] | | | | | performed at [facility], [address] | | | | | [address], | | | | | | [place] [address] | | | | + + + [...] | | | | | performed at [facility], [address] | | | | | | [facility], | | | | | | [place] [address] | | | | + + + [...] EXTERNAL | | | | performed at [facility];[address] | | LAB | | | | [facility], [place] | | | | | | [address] | | | | + + + [...] EXTERNAL | | | | performed at [facility], [address] | K/uL | LAB | | | | [address], | | | | | | [place] [address] | | | | + + + + + + | RED CELL | 3.33 (L)Comment: Testing | 4.20 - 5.70 | EXTERNAL | | | COUNT | performed at [facility], [address] | M/uL | LAB | | | | [address], | | | | | | [place] [address] | | | | + + + + + + | Hgb | 11.5 (L)Comment: Testing | 13.2 - 17.0 | EXTERNAL | | | | performed at [facility], [address] | g/dL | LAB | | | | [address], | | | | | | [place] [address] | | | | + + + + + + | Hematocrit, | 33.7 (L)Comment: Testing | 39.0 - 50.0 % | EXTERNAL | | | POC | performed at [facility], [address] | | LAB | | | | [address], | | | | | | [place] [address] | | | | + + + + + + | MCV | 101.0 (H)Comment: | 80.0 - 100.0 fl | EXTERNAL | | | | Testing performed at | | LAB | | | | [facility], [address] [facility] | | | | | | [place] | | | | | | [address] | | | | + + + + + + | MCH | 34.6 (H)Comment: Testing | 27.0 - 34.0 pg | EXTERNAL | | | | performed at [facility], [address] | | LAB | | | | [address], | | | | | | [place] [address] | | | | + + + + + + | MCHC | 34.3Comment: Testing | 32.0 - 35.5 | EXTERNAL | | | | performed at [facility], [address] | g/dL | LAB | | | | [address], | | | | | | [place] [address] | | | | + + + + + + | RDW-CV | 42.4Comment: Testing | 37 - 53 fl | EXTERNAL | | | | performed at [facility], [address] | | LAB | | | | [address], | | | | | | [place] [address] | | | | + + + + + + | Platelet | 155Comment: Testing | 150 - 400 K/uL | EXTERNAL | | | Count | performed at [facility], [address] | | LAB | | | Plasma | [address], | | | | | | [place] [address] | | | | + + + + + + | MPV | 9.1Comment: Testing | fl | EXTERNAL | | | | performed at [facility], [address] | | LAB | | | | [address], | | | | | | [place] [address] | | | | + + + + + + | Differentia | AUTOMATEDComment: | | EXTERNAL | | | l Type | Testing performed at | | LAB | | | | [facility], [address] | | | | | | [place] | | | | | | [address] | | | | + + + + + + | % Segmented | 83.91Comment: Testing | % | EXTERNAL | | | | performed at [facility], [address] | | LAB | | | Neutrophils | [address], | | | | | | [place] [address] | | | | + + + + + + | % | 6.12Comment: Testing | % | EXTERNAL | | | Lymphocytes | performed at [facility], [address] | | LAB | | | | [address], | | | | | | [place] [address] | | | | + + + + + + | % Monocytes | 6.81Comment: Testing | % | EXTERNAL | | | | performed at [facility], [address] | | LAB | | | | [address], | | | | | | [place] [address] | | | | + + + + + + | % | 2.36Comment: Testing | % | EXTERNAL | | | Eosinophils | performed at [facility], [address] | | LAB | | | | [address], | | | | | | [place] [address] | | | | + + + + + + | % Basophils | 0.80Comment: Testing | % | EXTERNAL | | | | performed at [facility], [address] | | LAB | | | | [address], | | | | | | [place] [address] | | | | + + + + + + | Absolute | 4.32Comment: Testing | 1.90 - 7.40 | EXTERNAL | | | Segmented | performed at [facility], [address] | K/uL | LAB | | | Neutrophils | [address], | | | | | | [place] [address] | | | | + + + + + + | Absolute | 0.32 (L)Comment: Testing | 1.00 - 3.90 | EXTERNAL | | | Lymphocytes | performed at [facility], [address] | K[address]uL | LAB | | | | [address], | | | | | | [place] [address] | | | | + + + + + + | Absolute | 0.35Comment: Testing | 0.00 - 0.80 | EXTERNAL | | | Monocytes | performed at [facility], [address] | K/uL | LAB | | | | [address], | | | | | | [place] [address] | | | | + + + + + + | Absolute | 0.12Comment: Testing | 0.00 - 0.50 | EXTERNAL | | | Eosinophils | performed at [facility], [address] | K/uL | LAB | | | | [address], | | | | | | [place] [address] | | | | + + + + + + | Absolute | 0.04Comment: Testing | 0.00 - 0.10 | EXTERNAL | | | Basophils | performed at [facility], [address] | K/uL | LAB | | | | [address], | | | | | | [place] [address] | | | | + + + [...] EXTERNAL | | | | performed at [facility], [address] | | LAB | | | | [address], | | | | | | [place] [address] | | | | + + + [...] EXTERNAL | | | | performed at [facility], [address] | | LAB | | | | [address], | | | | | | [place] [address] | | | | + + + [...] | | | | [place] [address] | | | | + + + + + + | K | 3.7Comment: Testing | 3.5 - 4.9 | EXTERNAL | | | | performed at [facility], [address] | mmol/L | LAB | | | | [address], | | | | | | [place] [address] | | | | + + + + + + | Cl | 104Comment: Testing | 99 - 109 mmol/L | EXTERNAL | | | | performed at [facility], [address] | | LAB | | | | [address], | | | | | | [place] [address] | | | | + + + + + + | CO2 | 23Comment: Testing | 23 - 32 mmol/L | EXTERNAL | | | | performed at [facility], [address] | | LAB | | | | [address], | | | | | | [place] [address] | | | | + + + + + + | Anion Gap | 9Comment: Testing | 5 - 20 mmol/L | EXTERNAL | | | | performed at [facility], [address] | | LAB | | | | [address], | | | | | | [place] [address] | | | | + + + + + + | Glucose, | 124 (H)Comment: Testing | 65 - 99 mg/dL | EXTERNAL | | | Fasting | performed at [facility], [address] | | LAB | | | | [address], | | | | | | [place] [address] | | | | + + + + + + | BUN | 6 (L)Comment: Testing | 8 - 25 mg/dL | EXTERNAL | | | | performed at [facility], [address] | | LAB | | | | [address], | | | | | | [place] [address] | | | | + + + + + + | Creatinine | 0.51 (L)Comment: Testing | 0.70 - 1.30 | EXTERNAL | | | | performed at [facility], [address] | mg/dL | LAB | | | | [address], | | | | | | [place] [address] | | | | + + + + + + | BUN/Creatin | 12Comment: Testing | | EXTERNAL | | | ine Ratio | performed at [facility], [address] | | LAB | | | | [address], | | | | | | [place] [address] | | | | + + + + + + | Calcium | 8.3 (L)Comment: Testing | 8.5 - 10.5 | EXTERNAL | | | | performed at [facility], [address] | mg/dL | LAB | | | | [address], | | | | | | [place] [address] | | | | + + + [...] [address], | | | | | | [place] [address] | | | | + + + [...] EXTERNAL | | | | performed at [facility], [address] | K/uL | LAB | | | | [address], | | | | | | [place] [address] | | | | + + + + + + | RED CELL | 2.99 (L)Comment: Testing | 4.20 - 5.70 | EXTERNAL | | | COUNT | performed at [facility], [address] | M/uL | LAB | | | | [address], | | | | | | [place] [address] | | | | + + + + + + | Hgb | 10.4 (L)Comment: Testing | 13.2 - 17.0 | EXTERNAL | | | | performed at [facility], [address] | g/dL | LAB | | | | [address], | | | | | | [place] [address] | | | | + + + + + + | Hematocrit, | 30.0 (L)Comment: Testing | 39.0 - 50.0 % | EXTERNAL | | | POC | performed at [facility], [address] | | LAB | | | | [address], | | | | | | [place] [address] | | | | + + + + + + | MCV | 100.1 (H)Comment: | 80.0 - 100.0 fl | EXTERNAL | | | | Testing performed at | | LAB | | | | [facility], [address] | | | | | | [place] | | | | | | [address] | | | | + + + + + + | MCH | 34.7 (H)Comment: Testing | 27.0 - 34.0 pg | EXTERNAL | | | | performed at [facility], [address] | | LAB | | | | [address], | | | | | | [place] [address] | | | | + + + + + + | MCHC | 34.6Comment: Testing | 32.0 - 35.5 | EXTERNAL | | | | performed at [facility], [address] | g/dL | LAB | | | | [address], | | | | | | [place] [address] | | | | + + + + + + | RDW-CV | 42.0Comment: Testing | 37 - 53 fl | EXTERNAL | | | | performed at [facility], [address] | | LAB | | | | [address], | | | | | | [place] [address] | | | | + + + + + + | Platelet | 161Comment: Testing | 150 - 400 K/uL | EXTERNAL | | | Count | performed at [facility], [address] | | LAB | | | Plasma | [address], | | | | | | [place] [address] | | | | + + + + + + | MPV | 8.3Comment: Testing | fl | EXTERNAL | | | | performed at [facility], [address] | | LAB | | | | [address], | | | | | | [place] [address] | | | | + + + + + + | Differentia | MANUALComment: Testing | | EXTERNAL | | | l Type | performed at [facility], [address] | | LAB | | | | [address], | | | | | | [place] [address] | | | | + + + + + + | Segmented | 88Comment: Testing | % | EXTERNAL | | | Neutrophils | performed at [facility], [address] | | LAB | | | Manual | [address], | | | | | | [place] [address] | | | | + + + + + + | Lymphocytes | 6Comment: Testing | % | EXTERNAL | | | Manual | performed at [facility], [address] | | LAB | | | | [address], | | | | | | [place] [address] | | | | + + + + + + | Monocytes | 6Comment: Testing | % | EXTERNAL | | | Manual | performed at [facility], [address] | | LAB | | | | [address], | | | | | | [place] [address] | | | | + + + + + + | Absolute | 5.72Comment: Testing | 1.90 - 7.40 | EXTERNAL | | | Neutrophils | performed at [facility], [address] | K/uL | LAB | | | | [address], | | | | | | [place] [address] | | | | + + + + + + | Absolute | 0.39 (L)Comment: Testing | 1.00 - 3.90 | EXTERNAL | | | Lymphocytes | performed at [facility], [address] | [address] | LAB | | | | [address], | | | | | | [place] [address] | | | | + + + + + + | Absolute | 0.39Comment: Testing | 0.00 - 0.80 | EXTERNAL | | | Monocytes | performed at [facility], [address] | K[address]L | LAB | | | | [address], | | | | | | [place] [address] | | | | + + + + + + | RBC | NORMAL RBC MORPHComment: | | EXTERNAL | | | Morphology | NORMAL PLT MORPHTesting | | LAB | | | | performed at [facility], [address] | | | | | | [address], | | | | | | [place] [address] | | | | + + + [...] | | | | [place] [address] | | | | + + + [...] EXTERNAL | | | | performed at [facility], [address] | | LAB | | | | [address], | | | | | | [place] [address] | | | | + + + [...] | | | | [place] [address] | | | | + + + + + + | K | 3.8Comment: Testing | 3.5 - 4.9 | EXTERNAL | | | | performed at [facility], [address] | mmol/L | LAB | | | | [address], | | | | | | [place] [address] | | | | + + + + + + | Cl | 103Comment: Testing | 99 - 109 mmol/L | EXTERNAL | | | | performed at [facility], [address] | | LAB | | | | [address] [place], | | | | | | [place] [address] | | | | + + + + + + | CO2 | 26Comment: Testing | 23 - 32 mmol/L | EXTERNAL | | | | performed at [facility], [address] | | LAB | | | | [address], | | | | | | [place] [address] | | | | + + + + + + | Anion Gap | 6Comment: Testing | 5 - 20 mmol/L | EXTERNAL | | | | performed at [facility], [address] | | LAB | | | | [address], | | | | | | [place] [address] | | | | + + + + + + | Glucose, | 127 (H)Comment: Testing | 65 - 99 mg/dL | EXTERNAL | | | Fasting | performed at [facility], [address] | | LAB | | | | [address], | | | | | | [place] [address] | | | | + + + + + + | BUN | 14Comment: Testing | 8 - 25 mg/dL | EXTERNAL | | | | performed at [facility], [address] | | LAB | | | | [address], | | | | | | [place] [address] | | | | + + + + + + | Creatinine | 0.67 (L)Comment: Testing | 0.70 - 1.30 | EXTERNAL | | | | performed at [facility], [address] | mg/dL | LAB | | | | [address], | | | | | | [place] [address] | | | | + + + + + + | BUN/Creatin | 21Comment: Testing | | EXTERNAL | | | ine Ratio | performed at [facility], [address] | | LAB | | | | [address], | | | | | | [place] [address] | | | | + + + + + + | Calcium | 8.1 (L)Comment: Testing | 8.5 - 10.5 | EXTERNAL | | | | performed at [facility], [address] | mg/dL | LAB | | | | [address], | | | | | | [place] [address] | | | | + + + [...] | | | | [place] [address] | | | | + + + [...]
--- OUTSIDE RECORDS SUMMARY | ~2019-02-11 | XMS | Encounter Summary ---
Demographics + + + | Address | [address] | | | [place] [address] | + + + | Home Phone | | + + + | Preferred Language | Unknown | + + + | Marital Status | Single | + + + | Scientology Affiliation | Unknown | + + + | Race | Unknown | + + + | Ethnic Group | Unknown | + + + Author + + + | Author | [facility] | | | and [place] | + + + | Organization | [facility] | | | and [place] | + + + | Address | Unknown | + + + | Phone | Unavailable | + + + Support + + +---------+ + | Name | Relationship | Address | Phone | + + +---------+ + | Message Detailed | ECON | Unknown | | + + +---------+ + | Liborio Olivera ECON | Unknown | | + + +---------+ + Care Team Providers + +------+ + | Care Public Relations Specialist Name | Role | Phone | + +------+ + | Kris Hernandez | PCP | | + +------+ + Encounter Details +--------+ + + + + | Date | Type | Department | Care Team | Description | +--------+ + + + + | 06/22/ | Orders Only | [facility] | [facility] | | | 2019 | | CONVERSION DEP [address] | Kyler Garcia MD [address] | | | [address] | [address] | | | | | [place], [place] | [place] [address] | | | | | [address] | [phone] | | | | | [phone] | | | +--------+ + + + [...] | | | | | | [place] [address] | | | | | | [phone] | | | | | | | | +--------+ + + + + | 02/21/ | Surgery | | Saleem Shore, | COLONOSCOPY | | 2019 | | | MD Rebecca BRUNO | | | | | | [address] | | | | | | [place] [address] | | | | | | [phone] | | | | | | | | +--------+ + + + + documented as of this encounter Visit Diagnoses Not on filedocumented in this encounter"
--- OUTSIDE RECORDS SUMMARY | ~2019-02-11 | XMS | Encounter Summary ---
Demographics + + + | Address | [address] | | | [place] [address] | + + + | Home Phone | | + + + | Preferred Language | Unknown | + + + | Marital Status | Single | + + + | Moravian Affiliation | Unknown | + + + | Race | Unknown | + + + | Ethnic Group | Unknown | + + + Author + + + | Author | [facility] | | | and [place] | + + + | Organization | [facility] | | | [...] Team Providers + +------+ + | Care Bucket Wash Operator Name | Role | Phone | [...] | | | MARY ALICE ADAMSON | [phone] | | | | | [phone] | | | | | | [phone] | | | +--------+ + + + [...] [address] | | | | | | [place] [address] | | | | | | [phone] | | | | | | | | +--------+ + + + + | 02/21/ | Surgery | | Saleem Shore, | COLONOSCOPY | | 2019 | | | MD Fernandez [facility] | | | | | | [address] | | | | | | [place] [address] | | | | | | [phone] | | | | | | | | +--------+ + + + + documented as of this encounter Procedures + +--------+ + + + | Procedure Name | Priori | Date/Time | Associated Diagnosis | Comments | | | ty | | | | + +--------+ + + + | CT CHEST WO CONTRAST | Routin | 08/02/2014 | | Results for this | | | e | 2:43 AM | | procedure are in the | | | | PDT | | results section. | + +--------+ + + + documented in this encounter Results CT Chest wo Contrast (08/02/2014 2:43 AM PDT) + + [...]
--- OUTSIDE RECORDS SUMMARY | ~2019-02-11 | XMS | Encounter Summary ---
Demographics + + + | Address | [address] | | | [place] [address] | + + + | Home Phone | | + + + | Preferred Language | Unknown | + + + | Marital Status | Single | + + + | Oriental Orthodox Affiliation | Unknown | + + + | Race | Unknown | + + + | Ethnic Group | Unknown | + + + Author + + + | Author | [facility] | | | and [place] | + + + | Organization | [facility] | | | and [...] Team Providers + +------+ + | Care Electric Razor Assembler Name | Role | Phone | + +------+ + | Kris Hernandez | PCP | | + +------+ + Encounter Details +--------+ + + + + | Date | Type | Department | Care Team | Description | +--------+ + + + + | 01/19/ | Orders Only | [facility] | Collin Grimm | | | 2018 | | GENERAL SURGERY [address] | B, RN | | | | | [address] | | | | | | [place], [place] | | | | | | [address] | | | | | | [phone] | | | +--------+ + + + [...] documented as of this encounter Progress Notes Collin Grimm RN - 01/19/2019 10:57 AM PDTRx needs to faxed to [facility] documented in thi s encounter Plan of Treatment +--------+ + + [...] | | | | [place] [address] | | | | | | [phone] | | | | | | | | +--------+ + + + + | 02/21/ | Surgery | | Saleem Shore, | COLONOSCOPY | | 2018 | | | MD Rebecca BRUNO | | | | | | [address] | | | | | | [place] [address] | | | | | | [phone] | | | | | | | | +--------+ + + + + documented as of this encounter Visit Diagnoses Not on filedocumented in this encounter"
--- OUTSIDE RECORDS SUMMARY | ~2019-02-11 | XMS | Encounter Summary ---
Demographics + + + | Address | [address] | | | [place] [address] | + + + | Home Phone | | + + + | Preferred Language | Unknown | + + + | Marital Status | Single | + + + | Amish Affiliation | Unknown | + + + | Race | Unknown | + + + | Ethnic Group | Unknown | + + + Author + + + | Author | [facility] | | | and [place] | + + + | Organization | [facility] | | [...] Team Providers + +------+ + | Care Supervisor Webbing Name | Role | Phone | + +------+ + PCP | Unavailable | + +------+ + Encounter Details +--------+ + + + + | Date | Type | Department | Care Team | Description | +--------+ + + + + | 08/14/ | Hospital | [facility] | Conversion | | | 2014 | Encounter | [facility] | Transaction, | | | | | CLIN[address] | Provider Unknown | | | | | [place], [place] | [phone] | | | | | [address] | | | | | | [phone] | | | +--------+ + + + [...] | | | | [place] [address] | | | | | | [phone] | | | | | | | | +--------+ + + + + | 02/21/ | Surgery | | Saleem Shore, | COLONOSCOPY | | 2019 | | | MD Rebecca BRUNO | | | | | | [address] | | | | | | [place] [address] | | | | | | [phone] | | | | | | | | +--------+ + + + + documented as of this encounter Visit Diagnoses Not on filedocumented in this encounter"
--- OUTSIDE RECORDS SUMMARY | ~2019-02-11 | XMS | Encounter Summary ---
Demographics + + + | Address | [address] | | | [place] [address] | + + + | Home Phone | | + + + | Preferred Language | Unknown | + + + | Marital Status | Single | + + + | Jehovah'S Witness Affiliation | Unknown | + + + | Race | Unknown | + + + | Ethnic Group | Unknown | + + + Author + + + | Author | [facility] | | | and [place] | + + + | Organization | [facility] | | [...] Providers + +------+ + | Care Director Product Development Name | Role | Phone | + +------+ + PCP | Unavailable | + +------+ + Encounter Details +--------+ + + + + | Date | Type | Department | Care Team | Description | +--------+ + + + + | 12/19/ | Hospital | [facility] | Conversion | | | 2015 | Encounter | [facility] | Transaction, | | | | | CLINIC [address] | Provider Unknown | | | | | [place] | [phone] | | | | | [address] | | | | | | [phone] | | | +--------+ + + + [...] 2019 | Encounter | | MD Rebecca JUSTICE | | | | | | [address] | | | | | | [place] [address] | | | | | | [phone] | | | | | | | | +--------+ + + + + | 02/21/ | Surgery | | Saleem Shore, | COLONOSCOPY | | 2019 | | | MD Rebecca JUSTICE | | | | | | [address] | | | | | | [place] [address] | | | | | | [phone] | | | | | | | | +--------+ + + + + documented as of this encounter Procedures + +--------+ + + + | Procedure Name | Priori | Date/Time | Associated Diagnosis | Comments | | | ty | | | | + +--------+ + + + | EXTERNAL LAB: [facility] | Routin | 12/19/2014 | | Results for this | | | e | 9:01 AM | | procedure are in the | | | | PDT | | results section. | + +--------+ + + + | COMPREHENSIVE | Routin | 12/19/2014 | | Results for this | | METABOLIC PANEL | e | 9:01 AM | | procedure are in the | | | | PDT | | results section. | + +--------+ + + + documented in this encounter Results External Lab: CBC (12/19/2014 9:01 AM PDT) + + + + + + | Component | Value | Ref Range | Performed | Pathologist | | | | | At | Signature | + + + + + + | WBC | 3.72 (L)Comment: Testing | 3.80 - 11.00 | EXTERNAL | | | | performed at [facility], [address] | K/uL | LAB | | | | [address], | | | | | | [place] [address] | | | | + + + + + + | RED CELL | 3.89 (L)Comment: Testing | 4.20 - 5.70 | EXTERNAL | | | COUNT | performed at [facility], [address] | M/uL | LAB | | | | [address], | | | | | | [place] [address] | | | | + + + + + + | Hgb | 13.5Comment: Testing | 13.2 - 17.0 | EXTERNAL | | | | performed at [facility], [address] | g/dL | LAB | | | | [address], | | | | | | [place] [address] | | | | + + + + + + | Hematocrit, | 38.8 (L)Comment: Testing | 39.0 - 50.0 % | EXTERNAL | | | POC | performed at [facility], [address] | | LAB | | | | [address], | | | | | | [place] [address] | | | | + + + + + + | MCV | 99.9Comment: Testing | 80.0 - 100.0 fl | EXTERNAL | | | | performed at [facility], [address] | | LAB | | | | [address], | | | | | | [place] [address] | | | | + + + + + + | MCH | 34.7 (H)Comment: Testing | 27.0 - 34.0 pg | EXTERNAL | | | | performed at [facility], [address] | | LAB | | | | [address], | | | | | | [place] [address] | | | | + + + + + + | MCHC | 34.7Comment: Testing | 32.0 - 35.5 | EXTERNAL | | | | performed at [facility], [address] | g/dL | LAB | | | | [address], | | | | | | [place] [address] | | | | + + + + + + | RDW-CV | 44.6Comment: Testing | 37 - 53 fl | EXTERNAL | | | | performed at [facility], [address] | | LAB | | | | [address], | | | | | | [place] [address] | | | | + + + + + + | Platelet | 210Comment: Testing | 150 - 400 K/uL | EXTERNAL | | | Count | performed at [facility], [address] | | LAB | | | Plasma | [address], | | | | | | [place] [address] | | | | + + + + + + | MPV | 8.1Comment: Testing | fl | EXTERNAL | | | | performed at [facility], [address] | | LAB | | | | [address], | | | | | | [place] [address] | | | | + + + + + + | Differentia | AUTOMATEDComment: | | EXTERNAL | | | l Type | Testing performed at | | LAB | | | | [facility], [address] | | | | | | [place] | | | | | | [address] | | | | + + + + + + | % Segmented | 68.31Comment: Testing | % | EXTERNAL | | | | performed at [facility], [address] | | LAB | | | Neutrophils | [address], | | | | | | [place] [address] | | | | + + + + + + | % | 18.84Comment: Testing | % | EXTERNAL | | | Lymphocytes | performed at [facility], [address] | | LAB | | | | [address], | | | | | | [place] [address] | | | | + + + + + + | % Monocytes | 9.10Comment: Testing | % | EXTERNAL | | | | performed at [facility], [address] | | LAB | | | | [address], | | | | | | [place] [address] | | | | + + + + + + | % | 2.36Comment: Testing | % | EXTERNAL | | | Eosinophils | performed at [facility], [address] | | LAB | | | | [address], | | | | | | [place] [address] | | | | + + + + + + | % Basophils | 1.39Comment: Testing | % | EXTERNAL | | | | performed at [facility], [address] | | LAB | | | | [address], | | | | | | [place] [address] | | | | + + + + + + | Absolute | 2.54Comment: Testing | 1.90 - 7.40 | EXTERNAL | | | Segmented | performed at [facility], [address] | K/uL | LAB | | | Neutrophils | [address], | | | | | | [place] [address] | | | | + + + + + + | Absolute | 0.70 (L)Comment: Testing | 1.00 - 3.90 | EXTERNAL | | | Lymphocytes | performed at [facility], [address] | K/uL | LAB | | | | [address], | | | | | | [place] [address] | | | | + + + + + + | Absolute | 0.34Comment: Testing | 0.00 - 0.80 | EXTERNAL | | | Monocytes | performed at [facility], [address] | K/uL | LAB | | | | [address], | | | | | | [place] [address] | | | | + + + + + + | Absolute | 0.09Comment: Testing | 0.00 - 0.50 | EXTERNAL | | | Eosinophils | performed at [facility], [address] | K/uL | LAB | | | | [address], | | | | | | [place] [address] | | | | + + + + + + | Absolute | 0.05Comment: Testing | 0.00 - 0.10 | EXTERNAL | | | Basophils | performed at [facility], [address] | K/uL | LAB | | | | [address], | | | | | | [place] [address] | | | | + + + [...] + +---------+ + + Comprehensive Metabolic Panel (12/19/2014 9:01 AM PDT) + + + + + [...] | | | | [place] [address] | | | | + + + + + + | K | 3.9Comment: Testing | 3.5 - 4.9 | EXTERNAL | | | | performed at [facility], [address] | mmol/L | LAB | | | | [address], | | | | | | [place] [address] | | | | + + + + + + | Cl | 102Comment: Testing | 99 - 109 mmol/L | EXTERNAL | | | | performed at [facility], [address] | | LAB | | | | [address], | | | | | | [place] [address] | | | | + + + + + + | CO2 | 29Comment: Testing | 23 - 32 mmol/L | EXTERNAL | | | | performed at [facility], [address] | | LAB | | | | [address], | | | | | | [place] [address] | | | | + + + + + + | Anion Gap | 7Comment: Testing | 5 - 20 mmol/L | EXTERNAL | | | | performed at [facility], [address] | | LAB | | | | [address], | | | | | | [place] [address] | | | | + + + + + + | Glucose, | 90Comment: Testing | 65 - 99 mg/dL | EXTERNAL | | | Fasting | performed at [facility], [address] | | LAB | | | | [address], | | | | | | [place] [address] | | | | + + + + + + | BUN | 8Comment: Testing | 8 - 25 mg/dL | EXTERNAL | | | | performed at [facility], [address] | | LAB | | | | [address], | | | | | | [place] [address] | | | | + + + + + + | Creatinine | 0.63 (L)Comment: Testing | 0.70 - 1.30 | EXTERNAL | | | | performed at [facility], [address] | mg/dL | LAB | | | | [address], | | | | | | [place] [address] | | | | + + + + + + | BUN/Creatin | 13Comment: Testing | | EXTERNAL | | | ine Ratio | performed at [facility], [address] | | LAB | | | | [address], | | | | | | [place] [address] | | | | + + + + + + | Calcium | 8.9Comment: Testing | 8.5 - 10.5 | EXTERNAL | | | | performed at [facility], [address] | mg/dL | LAB | | | | [address], | | | | | | [place] [address] | | | | + + + + + + | Protein, | 6.7Comment: Testing | 6.3 - 8.2 g/dL | EXTERNAL | | | Total | performed at [facility], [address] | | LAB | | | | [address], | | | | | | [place] [address] | | | | + + + + + + | Albumin | 4.0Comment: Testing | 3.3 - 4.8 g/dL | EXTERNAL | | | | performed at [facility], [address] | | LAB | | | | [address], | | | | | | [place] [address] | | | | + + + + + + | Globulin | 2.7Comment: Testing | 1.3 - 4.9 g/dL | EXTERNAL | | | | performed at [facility], [address] | | LAB | | | | [address], | | | | | | [place] [address] | | | | + + + + + + | A/G Ratio | 1.5Comment: Testing | 1.0 - 2.4 | EXTERNAL | | | | performed at [facility], [address] | | LAB | | | | [address], | | | | | | [place] [address] | | | | + + + + + + | Bilirubin | 0.6Comment: Testing | 0.1 - 1.5 mg/dL | EXTERNAL | | | Total | performed at [facility], [address] | | LAB | | | | [address], | | | | | | [place] [address] | | | | + + + + + + | ALP, | 104Comment: Testing | 35 - 115 U/L | EXTERNAL | | | External | performed at [facility], [address] | | LAB | | | | [address], | | | | | | [place] [address] | | | | + + + + + + | AST | 15Comment: Testing | 10 - 45 U/L | EXTERNAL | | | | performed at [facility], [address] | | LAB | | | | [address], | | | | | | [place] [address] | | | | + + + + + + | ALT | 14Comment: Testing | 10 - 65 U/L | EXTERNAL | | | | performed at [facility], [address] | | LAB | | | [address], | | | | | | [place] [address] | | | | + + + [...] [address] | | | | | | [address], | | | | | | [place] [address] | | | | + + + [...]
--- OUTSIDE RECORDS SUMMARY | ~2019-02-11 | XMS | Encounter Summary ---
Demographics + + + | Address | [address] | | | [place] [address] | + + + | Home Phone | | + + + | Preferred Language | Unknown | + + + | Marital Status | Single | + + + | Hoahaoism Affiliation | Unknown | + + + | Race | Unknown | + + + | Ethnic Group | Unknown | + + + Author + + + | Author | [facility] | | | and [place] | + + + | Organization | [facility] | | | [...] Team Providers + +------+ + | Care Roof Designer Name | Role | Phone | + +------+ + PCP | Unavailable | + +------+ + Encounter Details +--------+ + + + + | Date | Type | Department | Care Team | Description | +--------+ + + + + | 06/09/ | [facility] | [facility] | Edy La | Enderor; Postictal | | 2019 - | Encounter | [facility] | MD Tom [address] | state (HCC); Acute | | | | CARE FLOOR [address] [place], [place] | respiratory failure | | 06/22/ | | [address] | [address] | with hypoxia (HCC); | | 2019 | | [place], [place] | | Altered mental | | | | [address] | | status, unspecified | | | | [phone] | | altered mental | | | | | | status type; ETOH | | | | | | abuse; Mass of | | | | | | brain; Chronic | | | | | | systolic congestive | | | | | | heart failure (HCC); | | | | | | Abnormal findings | | | | | | on diagnostic | | | | | | imaging of skull and | | | | | | head, not elsewhere | | | | | | classified | +--------+ + + + + Social [...] | Blood Pressure | 88/50 | 06/22/2018 10:06 AM | | | | | PDT | | + + + + + | Pulse | 64 | 06/22/2018 10:06 AM | | | | | PDT | | + + + + + | Temperature | 36.7 C (98 F) | 06/22/2018 10:06 AM | | | | | PDT | | + + + + + | Respiratory Rate | 16 | 06/22/2018 10:06 AM | | | | | PDT | | + + + + + | Oxygen Saturation | - | - | | + + + + + | Inhaled Oxygen | - | - | | | Concentration | | | | + + + + + | Weight | 61.1 kg (134 lb 11.2 | 06/22/2018 10:06 AM | | | | oz) | PDT | | + + + + + | Height | 162.6 cm (5' 4") | 06/22/2018 10:06 AM | | | | | PDT | | + + + + + | Body Mass Index | 23.12 | 06/22/2018 10:06 AM | | | | | PDT | | + + + + + documented in this encounter Discharge Summaries Nba Cr MD - 06/22/2018 10:25 AM PDTFormatting of this note might be diff erent from the original. Discharge Summaries by Nba Cr MD at 06/22/18 1025 Author: Nba Cr MD Service: Hospitalist Author Type: Physician Filed: 06/22/18 1805 Date of Service: 06/22/18 1025 Status: Signed Sales Consulting Director: Nba Cr MD (Physician) Patient: Jose Eaton : 1950 Date of Admission: 06/09/2018 Date of Discharge: 06/22/2018 Treatment Team: Consulting Physician: Jazmyne Hairston MD Consulting Physician: Wing Tom Gamble MD Admitting Provider: Edy La MD Discharging Provider: Nba Cr MD Discharge Diagnoses: Principal Problem: Seizures (HCC) Active Problems: Hyperlipidemia Paroxysmal atrial fibrillation (HCC) Protein-calorie malnutrition, severe Physical deconditioning Chronic diarrhea Malignant neoplasm of colon (HCC) ETOH abuse Chronic systolic congestive heart failure (HCC) Resolved Problems: Delirium Mass of brain Encephalitis Procedures Performed: Chief Complaint: No chief complaint on file. Hospital Course: Jose Eaton is a 68 y.o. male the past medical history of bowel cancer status post rese ction and ileostomy reversal in 2016, atrial fib, pancreatitis, hyperlipidemia, EtOH abuse, who was admitted to ICU on transfer from [facility] 06/09/2018 with altered mental status with the patient's having last drink on 06/07/2018, as well as seizures at [facility], patient was intubated on admission and was extubated on 06/14/2018 , because of the altered mental status who underwent a lumbar puncture infectious disease wa s consulted he was treated with acyclovir but CSF was negative for herpes PCR and the acyclo vir was discontinued and an initial MRI showed cortical mass with neurosurgery was consulted they recommended repeat MRI which showed no other cortical lesion and the patient had 2 EEG s 1 of which showed left temporal epileptiform discharges and the other one did not capture any, neurology was consulted the patient was started on Keppra, with the patient having a hi story of paroxysmal atrial fibrillation the patient however is a high risk candidate for ant icoagulation after talking with the patient's family the patient was started just on aspirin , subsequently neurosurgery saw the patient because of the brain mass and it was decided aparna t the patient would not have any neurosurgery but will have another MRI in 3 months and the patient can follow-up at the neurosurgery office in 3 months. The patient was able to be or iented to self and did perseverate, we are not sure exactly what the patient's baseline ment al status was but they did not show any more signs of delirium, did not meet any sitter and was cooperative, patient family agreed to patient being discharged to SNF for further streng thening patient was then discharged to SNF. Discharge Exam and Data: Vital Signs: BP (!) 88/50 (BP Location: Right upper arm) | Pulse 64 | Temp 98 F (36.7 C) (Oral) | Resp 16 | Ht 1.626 m (5' 4") | Wt 61.1 kg (134 lb 11.2 oz) | SpO2 99% | BMI 23.12 kg/m General Appearance: Alert, cooperative, no distress, appears older than stated age Head: Normocephalic, without obvious abnormality, atraumatic Eyes: PERRL, conjunctiva/corneas clear, EOM's intact, fundi benign, both eyes Ears: Normal external ear canals, both ears Nose: Nares normal, septum midline, mucosa normal, no drainage or sinus tenderness Throat: Lips, mucosa, and tongue normal; teeth and gums normal Neck: Supple, symmetrical, trachea midline, no adenopathy; thyroid: No enlargement/tenderness/nodules; no carotid bruit or JVD Back: Symmetric, no curvature, ROM normal, no CVA tenderness Lungs: Clear to auscultation bilaterally, respirations unlabored Chest wall: No tenderness or deformity Heart: Regular rate and rhythm, S1 and S2 normal, no murmur, rub or gallop Abdomen: Soft, non-tender, bowel sounds active all four quadrants, no masses, no organomegaly Extremities: Extremities normal, atraumatic, no cyanosis or edema Pulses: 2+ and symmetric all extremities Skin: Skin color, texture, turgor normal, no rashes or lesions Lymph nodes: Cervical, supraclavicular, and axillary nodes normal Neurologic: Pleasantly confused but able to follow directions, not at all impulsive, CNII- XII intact. Normal strength, sensation and reflexes throughout Recent Labs Recent Labs Lab 06/22/18 0458 WBC 5.54 HGB 11.8* HCT 33.5* PLT 272 Recent Labs Lab 06/22/18 0458 NA 138 K 4.2 CL 104 CO2 29 BUN 15 CREATININE 0.7 No results for input(s): INR in the last [address] hours. Recent Radiology Results Ct Head Without Contrast Result Date: 06/17/2018 1. No acute intracranial findings. 2. Stable, noncalcified cortical lesion measuring 1.6 x 1.4 cm in the posterior aspect of the left superior frontal gyrus stable since 06/09/2018. Se e above discussion for differential diagnosis. If not already done, neurosurgical consultati on is recommended as this could certainly represent a seizure focus. Correlation with EEG fi ndings is suggested. 3. Stable appearance of the area of chronic diffuse gliosis in the ante rior left frontal lobe white matter. 4. Moderate diffuse cerebral atrophy likely due to long standing ethanol abuse. 5. Stable 4 mm focus of calcification located at the medial left par ieto-occipital junction suggests an old cortical calcification due to an old ischemic injury versus solitary focus of neurocysticercosis. Signed by: James Dalton Sign Date/Time: 1:05 PM Mri Brain With And Without Contrast Result Date: 06/16/2018 1. Stable, nonenhancing cortical lesion measuring 1.7 x 1.4 cm in the posterior aspect of t he left superior frontal gyrus stable since 06/09/2018. See above discussion for differentia l diagnosis. If not already done, neurosurgical consultation is recommended as this could c ertainly represent a seizure focus. Correlation with EEG findings is suggested. 2. Stable a ppearance of the area of chronic diffuse gliosis in the anterior left frontal lobe white mat ter. 3. Moderate diffuse cerebral atrophy likely due to longstanding ethanol abuse. 4. Previ ously seen areas of restricted diffusion noted in the left temporal lobe and left thalamus o n 06/09/2018 and 06/10/2018 have resolved without underlying parenchymal abnormality suggestin g these were likely postictal in nature. 5. Previously seen punctate focus of restricted dif fusion in the right occipital lobe has resolved with no underlying signal abnormality seen i n that area on the other sequences. 6. Stable 4.6 mm focus of low signal on the T2*GRE seque nce located at the medial left parieto-occipital junction suggests an old cortical calcifica tion or focus of chronic hemosiderin deposition due to an old ischemic injury. Signed by: James Deleon Sign Date/Time: 06/16/2018 6:19 PM Us Carotid Doppler, Bilateral Result Date: 06/16/2018 No evidence of high-grade stenosis ultrasound Internal Carotid Artery Diagnostic Criteria C ategory / Diameter reduction / ICA/CCA Peak Systolic Velocity / End Diastolic Velocity / Rat io Normal to Mild / 1-49% / <130cm/sec / NA / <1.6 Moderate / 50-69% /130 to 229cm/sec / 70 to 99cm/sec / 1.6 to 3.1 Moderate to Severe / 70-79% / >230cm/sec / 100-139cm/sec / 3.2 to 4 .0 Severe / 80-99% / >230cm/sec / >140cm/sec / >4.1 Occluded / 100% / no flow / no flow / NA Strandness classification, NASCET criteria and [facility] criteria applied for internal carotid stenosis determination. Signed by: Bo Bowman Sign Date/Time: 06/16/2018 2:07 PM Echo Cardiac Adult Complete Result Date: 06/16/2018 1. Sinus rhythm. 2. A 2-dimensional transthoracic echocardiogram with m-mode, spectral and color flow Doppler was perfomed. 3. This was a technically difficult study secondary to manuel ent cooperation. Exam terminated at patient request. 4. Overall left ventricular systolic f unction is mildly impaired with, an EF between 45 - 50 %. 5. The left ventricle cavity size is normal. 6. There is mild concentric left ventricular hypertrophy. 7. The right ventricle is normal in size. 8. The left atrium is moderately dilated. 9. The right atrial size is nor mal. 10. The aortic valve was not well visualized. 11. There is mild aortic regurgitation. 1 2. There is no evidence of aortic stenosis. 13. The mitral valve was not well visualized. 14 . Mild mitral regurgitation is present. 15. , predominately a posteriorly directed jet. 16. Mild mitral annular calcification present. 17. The tricuspid valve was not well visualized. 18. Trace tricuspid regurgitation present. 19. Pulmonary artery systolic pressure could not be assessed due to the absence of adequate TR jet. 20. The pulmonic valve was not well visua lized. 21. There is no pericardial effusion. 22. The IVC could not be visualized at patient request. 23. The aortic root, ascending aorta and aortic arch are normal. 24. No mass visual ized 25. No ASD observed. 26. No VSD observed. Outstanding Issues: For the patient's prolong delirium which could be multifactorial the patient is discharged to SNF, continue with thiamine 100 mg orally daily. Continue with OT PT, speech therapy. P atient's diet will be cardiac mechanical soft with thin liquids. For the patient's he should continue with Keppra 500 mg twice daily. For the patient's hypercholesterolemia continue with Pravachol 40 g orally daily. Patient will continue with aspirin 81 mg oral daily for his paroxysmal atrial fibrillation. For sleep melatonin 3 mg tablets nightly. Zofran 4 mg ODT as needed for nausea and vomiting. FiberCon as needed for constipation. Loperamide as needed for diarrhea. Patient is to stop meloxicam. Discharge Information: Follow up: Discharge Instructions MRI brain with and without contrast Standing Status: Future Standing Exp. Date: 12/23/18 Order Comments: Send report to Dr. Pederson at [facility] neurosurgery Order Specific Question Answer Comments Reason for Exam: follow up brain mass Is MRI exam to be done with sedation/ anesthesia? No What is the preferred imaging location? [facility] Referral to Speech Therapy Referral Priority: Routine Referral Type: Speech Therapy Referral Reason: Specialty Services Required Requested Specialty: Speech Pathology Number of Visits Requested: 1 Referral to Physical Therapy Referral Priority: Routine Referral Type: Physical Medicine Referral Reason: Specialty Services Required Requested Specialty: Physical Therapy Number of Visits Requested: 1 Referral to Occupational Therapy Referral Priority: Routine Referral Type: Occupational Therapy Referral Reason: Specialty Services Required Requested Specialty: Occupational Therapy Number of Visits Requested: 1 Diet Cardiac Order Comments: mech soft, thin liquids Activity as Advised by Physical Therapy Order Comments: Fall precautions Call MD for: Temperature > 100.4F (38C) Call MD for: Order Comments: Seizures/numbness weakness/slurred speech Kris Hernandez PA-C [address] [place] [address] Schedule an appointment as soon as possible for a visit in 3 day(s) Wilner Pederson DO [address] [place] [address] Follow up in 3 month(s) Jazmyne Hairston MD [address] [place] [address] Call in 1 month Medication List START taking these medications acetaminophen 325 MG tablet QTY: 30 tablet Refills: 0 Commonly known as: TYLENOL Take 2 tablets by mouth every 6 (six) hours as needed for up to 10 days. aspirin 81 MG EC tablet QTY: 30 tablet Refills: 1 Take 1 tablet by mouth daily with breakfast. Start taking on: 06/23/2018 levETIRAcetam 500 MG tablet QTY: 60 tablet Refills: 1 Commonly known as: KEPPRA Take 1 tablet by mouth 2 (two) times daily. melatonin 3 MG Tabs QTY: 30 tablet Refills: 1 Take 1 tablet by mouth nightly for 30 days. ondansetron 4 MG disintegrating tablet QTY: 20 tablet Refills: 0 Commonly known as: ZOFRAN-ODT Take 1 tablet by mouth every 6 (six) hours as needed for up to 7 days. thiamine 100 MG tablet QTY: 30 tablet Refills: 1 For diagnoses: ETOH abuse Commonly known as: VITAMIN B-1 Take 1 tablet by mouth daily. CHANGE how you take these medications polycarbophil calcium 625 MG tablet QTY: 60 tablet Refills: 1 Commonly known as: FIBERCON Take 1 tablet by mouth 2 (two) times daily as needed (Constipation no stools for 2 days). What changed: when to take this reasons to take this CONTINUE taking these medications loperamide 2 MG tablet Refills: 0 Commonly known as: IMODIUM A-D pravastatin 40 MG tablet QTY: 30 tablet Refills: 1 Commonly known as: PRAVACHOL Take 1 tablet by mouth nightly. You might also be taking other medications not listed above. If you have questions about an y of your other medications, talk to the person who prescribed them or your Primary Care Pro vider. STOP taking these medications meloxicam 7.5 MG tablet Commonly known as: ANGELITA Where to Get Your Medications You can get these medications from any pharmacy Bring a paper prescription for each of these medications acetaminophen 325 MG tablet aspirin 81 MG EC tablet levETIRAcetam 500 MG tablet melatonin 3 MG Tabs ondansetron 4 MG disintegrating tablet polycarbophil calcium 625 MG tablet pravastatin 40 MG tablet thiamine 100 MG tablet Disposition: long term Condition: Stable Code Status: Prior Discharge medications reconciliation was completed by myself. . Case management who was Malagasy-speaking explained discharge plan and medications to the kiara auguste's son over the telephone, the son did not have any questions with me for me. After Vi sit Summary was printed and given to the patient. Patient verbalized understanding, agreement, and compliance with discharge plan. Discharge took more than 35 minutes, to include final examination, discussion of admission , and preparation of prescriptions, instructions for on-going care, follow-up and documentat ion of discharge summary. Nba Cr 5:51 PM documented in this encounter Medications at Time of Discharge + + + +---------+ + + | Medication | Sig | Dispensed | Refills | Start | End Date | | | | | | Date | | + + + +---------+ + + | calcium | Take 1 tablet by | 60 | 1 | 06/23/19 | | | polycarbophil | mouth 2 (two) times | tablet | | 19 | 0 | | (FIBERCON) 625 mg | daily as needed | | | | | | tablet | (Constipation no | | | | | | | stools for 2 days). | | | | | + + + +---------+ + + | levETIRAcetam | Take 500 mg by mouth | | 0 | 06/10/19 | | | (KEPPRA) 250 MG | 2 times daily. | | | 19 | | | tablet | | | | | | + + + +---------+ + + | loperamide | Take 2 mg by mouth 4 | | 0 | 08/26/19 | | | (IMODIUM A-D) 2 MG | (four) times daily | | | 16 | | | tablet | as needed for | | | | | | | Diarrhea. | | | | | + + + +---------+ + + | LORazepam (ATIVAN) | Inject 1 mg into the | | 0 | 06/10/19 | | | 2 mg/mL injection | vein. | | | 19 | | + + + +---------+ + + | pravastatin | Take 1 tablet by | 30 | 1 | 06/23/19 | | | (PRAVACHOL) 40 MG | mouth nightly. | tablet | | 19 | | | tablet | | | | | | + + + +---------+ + + | thiamine (VITAMIN | Take 1 tablet by | 30 | 1 | 06/23/19 | | | B-1) 100 mg tablet | mouth daily. | tablet | | 19 | 0 | + + + +---------+ + + documented as of this encounter Progress Notes Conversion Transaction, Provider Unknown - 06/22/2018 10:25 AM PDTFormatting of this note m ight be different from the original. Case Management by Anne Marie Greenfield RN at 06/22/18 102 Author: Anne Marie Greenfield RN Service: (none) Author Type: Registered Nurse Filed: 06/22/18 5528 Date of Service: 06/22/181024 Status: Signed Sales Consulting Director: Anne Marie Greenfield RN (Registered Nurse) Disposition: [facility] Transportation: [place] [facility]. All orders, signed AVS, and prescriptions have been faxed, confirmed received by familia Greer gaming commissioner of [facility]. All DC paperwork completed Patient and family in agreement with discharge plan Medicare important message (N/A): ANNE MARIE GREENFIELD, TIMOTEO,. onver alex Transaction, Provider Unknown - 06/22/2018 10:24 AM PDT Nurse Progress Note by Opal Gagnon RN at 06/22/18 1024 Author: Opal Gagnon RN Service: (none) Author Type: Registered Nurse Filed: 06/22/18 1025 Date of Service: 06/22/18 1024 Status: Signed Sales Consulting Director: Opal Gagnon RN (Registered Nurse) Pt discharged via [facility] transportation at this time. onver alex Transaction, Provider Unknown - 06/22/2018 10:00 AM PDT Nurse Progress Note by Opal Gagnon RN at 06/22/18 1000 Author: Opal Gagnon RN Service: (none) Author Type: Registered Nurse Filed: 06/22/18 1007 Date of Service: 06/22/18 1000 Status: Signed Sales Consulting Director: Opal Gagnon RN (Registered Nurse) Report called to Chelle MAHMOOD at [facility] in [place] for transfer of care to facility. No questions or concerns at this time. onver alex Transaction, Provider Unknown - 06/22/2018 9:58 AM PDT Case Management by Paula Lubin RN at 06/22/18 0958 Author: Paula Lubin RN Service: (none) Author Type: Registered Nurse Filed: 06/22/1858 Date of Service: 06/22/1858 Status: Signed Sales Consulting Director: Paula Lubin RN (Registered Nurse) Notified pt's brother Gustabo that pt is discharging at 1000. No questions or concerns. [place] onver alex Transaction, Provider Unknown - 06/22/2018 8:41 AM PDT Case Management by Anne Marie Greenfield RN at 06/22/18 0841 Author: Anne Marie Greenfield RN Service: (none) Author Type: Registered Nurse Filed: 06/22/18 1001 Date of Service: 06/22/18840 Status: Signed Sales Consulting Director: Anne Marie Greenfield RN (Registered Nurse) Discharge planning: CM placed call to [facility] [phone] to schedule pt transport to [facility], very long hold, left message with telephone. 0930: CM has not heard from transportation services, on hold. Confirmed pt will be picked up between 10 & 10:30 AM this morning. onver alex Transaction, Provider Unknown - 06/22/2018 6:19 AM PDT Nurse Progress Note by Ebony Olivares RN at 06/22/18618 Author: Ebony Olivares RN Service: (none) Author Type: Registered Nurse Filed: 06/22/18619 Date of Service: 06/22/18618 Status: Signed Sales Consulting Director: Ebony Olivares RN (Registered Nurse) Pt slept off and on throughout shift. No acute changes. Continued to refuse IV placement an d tele leads. [employer]. When asked if he could tell this nurse where he is at he would state in ghanaian "you insult me the questions you ask me." End of shift review complete. onver alex Transaction, Provider Unknown - 06/21/2018 6:34 PM PDT Nurse Progress Note by David Harmon RN at 06/21/181833 Author: David Harmon RN Service: (none) Author Type: Registered Nurse Filed: 06/21/181837 Date of Service: 06/21/181833 Status: Signed Sales Consulting Director: David Harmon RN (Registered Nurse) Pt will likely discharge tomorrow to [facility]. Pt had 2 bouts of incontinence in his antonio ef today with BM in both. He remains confused, saying he is at his friends house but want to go to his own house. No other significant findings. Chart check complete. David Harmon RN onver alex Transaction, Provider Unknown - 06/21/2018 4:43 PM PDT Case Management by Areli Zuluaga RN at 06/21/181642 Author: Areli Zuluaga RN Service: (none) Author Type: Registered Nurse Filed: 06/21/181643 Date of Service: 06/21/181642 Status: Signed Sales Consulting Director: Areli Zuluaga RN (Registered Nurse) Discharge Plan: [facility] to accept tomorrow. Meghan would like a discharge around 9-10am. SNF paperwor k started on chart. [place] transport contacted. Will call back in AM with time. onver alex Transaction, Provider Unknown - 06/21/2018 4:14 PM PDT Progress Notes by Saritha Brown RD at 06/21/18 161 Author: Saritha Brown RD Service: (none) Author Type: Registered Dietitian Filed: 06/21/181613 Date of Service: 06/21/181613 Status: Signed Sales Consulting Director: Saritha Brown RD (Registered Dietitian) 06/21/18 1600 Subjective Timepoint Follow up (moderate risk) Pt c/o Pt eating well, has a good appetite. Fluid / Beverage Intake Oral Fluids Amount ad tato Liquid Meal Replacement or Supplement Ensure Enlive BID at breakfast and dinner. Magic Cup at lunch daily Food Intake Amount of Food pt ate 100% of penne pasta, milk, and Magic Cup for lunch. most meals charte d 75-100% Type of Food / Meals dysphagia mechanical soft diet Meal / Snack Pattern house trays Micronutrient Intake Vitamin Intake Thiamin Anthropometrics Weight change Curent wt: 61.1 kg, down 3.1 kg from admit. Continue to monitor wt trend. Biochemical data, medical tests, and procedures reviewed Biochemical data, medical tests, and procedures reviewed Reviewed Recommendations Recommended energy needs Continue diet wiht house trays and supplements as ordered. Encorua ge PO intake. Nutritional Risk Nutritional risk Low / moderate Follow up date 06/27/[address], CD ovarr Lucía david MA, CCC-CANVAS BASTER - 06/21/2018 2:35 PM PDTFormatting of this note might be differ ent from the original. Therapy Progress Note by Lucía Randle MA CCC-[facility]AS [facility]ER at 06/21/18 3017 Author: Lucía Randle MA CCC-[facility]VAS [facility]ASTER Service: (none) Author Type: Speech and Language Pathologist Filed: 06/21/18 1508 Date of Service: 06/21/18 1435 Status: Signed Sales Consulting Director: Lucía Randle MA CCC-CANVAS BASTER (Speech and Language Pathologist) BEDSIDE SWALLOW CANVAS BASTER Last Visit [facility]VAS BASTER Received On: 06/21/18 Requires CANVAS BASTER Follow Up: No Recommendations Liquids Consistency Recommendations: Thin Diet Consistency Recommendation: Mechanical Soft Recommendations: 1:1 supervision, Set up with meals Risk for Aspiration: Mild Compensatory Swallowing Strategies: Upright as possible for all oral intake, Remain upright for 30 minutes after meals, Swallow 2 times per bite/sip, Slow rate presentation, Small bit es/sips, Eat/feed slowly Recommended Form of Meds: With puree, Meds with recommended liquid Summary: Pt seen for f/u dysphagia therapy, Pt with no overt s/sx of aspiration with trials today. RN reports pt is tolerating diet. Pt reports he likes his current diet and does not want anything "harder to chew" d/t poor dentition. Pt on least restrictive diet at this time . Therefore ST to d/c. Please re-order ST if any concerns arise. Staff Notified: RN Plan of Care Treatment Plan: No futher therapy recommended, Discharge from at this time AVS Documentation: Yes Diet: Mechanical soft: soft solid foods cut into pieces inch or smaller, all meats groun d, extra sauce/gravy as applicable. Ok for rice and and soft breads. Liquids: Thin liquids: regular consistency [employer] B[employer]ER Ready for Discharge: Yes Swallowing Treatment: Yes Patient Assessment Respiratory Status: Room air Behavior/Cognition: Cooperative, Alert Patient Positioning: Upright in bed Baseline Vocal Quality: Hoarse Consistencies Consistencies Assessed: Yes Thin Presentation: (refused trials ) Mechanical Soft Mechanical Soft - Presentation: Spoon, Self fed Mechanical Soft - Oral: Prolonged mastication Mechanical Soft - Pharyngeal: Delayed swallow, No overt signs or symptoms of aspiration Goals are progressing unless otherwise indicated. Dysphagia Goals Pt will have safe/efficient oral intake : Thin liquids, Mechanical soft diet, With max cues , Goal met Pt will follow swallow precautions : with 1:1 supervision, New/revised goal Education Completed Education Topics: Dysphagia: Explain results of session, speech-language pathology role, plan of care, most s afe diet and swallow precautions Completed with: [x] Patient [] Spouse [] Significant other [] Family [] Caregiver [] Other Completed by: [x] Verbal education [x] Demonstration [] Handout [] Other: Response to Education: [x] Stated Understanding [x] Reinforcement necessary [] Retur vish demonstration [] Demonstrated understanding [] No evidence of learning [] Refused onver alex Transaction, Provider Unknown - 06/21/2018 2:28 PM PDT Case Management by Paula Lubin RN at 06/21/18 2228 Author: Paula Lubin RN Service: (none) Author Type: Registered Nurse Filed: 06/21/18 7285 Date of Service: 06/21/181427 Status: Addendum Sales Consulting Director: Paula Lubin RN (Registered Nurse) Related Notes: Original Note by Paula Lubin RN (Registered Nurse) filed at 06/21/18 143 1 Tc to pt's son, Byron, [phone] re d/c planning. Byron agrees to sending pt to [facility] not interested in obtaining address/phone number for facility, stated he would "ask frie nds where it's located". Tc to pt's brotherGustabo, to update on d/c to [facility], no questions or con cerns. Transport arranged for at 0000 via [employer] Nba Mantilla Kyler M, MD - 06/21/2018 8:34 AM PDTFormatting of this note might be different f rom the original. Progress Notes by Nba Cr MD at 06/21/18833 Author: Nba Cr MD Service: Hospitalist Author Type: Physician Filed: 06/21/18 1708 Date of Service: 06/21/18833 Status: Signed Sales Consulting Director: Nba Cr MD (Physician) [facility] Service: Hospitalist Progress Note Hospital Day: LOS: 12 days SUBJECTIVE Patient Summary: 68-year-old Malagasy-speaking gentleman with a history of rectal canc er , hyperlipidemia, alcohol abuse admitted with seizure and possibly encephalitis. Patient was initially admitted to the ICU requiring intubation. He was extubated on June 14. He und erwent LP. ID was consulted he was treated with the acyclovir but CSF was negative for herpe s PCR and acyclovir was discontinued. Initial MRI showed cortical mass and neurosurgery was consulted and recommended repeat MRI in a week. Repeat MRI shows a cortical lesion and neurosurgery has been consulted. Patient had EEG 2-which showed left temporal epileptiform discharges. Neurology has been consulted and patient is on Keppra. Patient has paroxysmal atrial fibrillation and is high risk candidate for anticoagulation. He was started on aspirin which is being held for possible neurosurgery. Neurology and ID consulted. Neurosurgery consulted for brain mass. He also has chronic systolic congestive heart failure. Events Overnight: Patient seen and examined at bedside on follow-up with [facility] certifjae d historical interpreter, today the patient is oriented to person, he perseverates when I asked him what kind of place he was in, he did not say that it was a hospital like yesterday, he has not needed a sitter, overall he states he feels good, vital signs have been stable overn ight, has not needed supplemental O2, denies shortness of breath. Scheduled Medications aspirin 81 mg Oral Daily with breakfast levETIRAcetam 500 mg Oral BID melatonin 3 mg Oral Nightly pravastatin 80 mg Oral Nightly thiamine 100 mg Oral Daily Continuous Infusions PRN Medications acetaminophen OR acetaminophen, loperamide, ondansetron OR ondansetron, sodium chlo ride 0.9 % OBJECTIVE Vital Signs: BP 121/66 (BP Location: Left upper arm) | Pulse 67 | Temp 97.4 F (36.3 C) (Oral) | R favio 16 | Ht 1.626 m (5' 4") | Wt 61.1 kg (134 lb 11.2 oz) | SpO2 98% | BMI 23.12 kg/m Patient Vitals for the past 24 hrs: BP Temp Temp src Pulse Resp SpO2 06/21/18 0320 121/66 97.4 F (36.3 C) Oral 67 16 98 % 06/20/18 2330 105/62 97.5 F (36.4 C) Oral 72 16 100 % 06/20/18 1943 108/61 97.5 F (36.4 C) Oral 73 18 100 % 06/20/18 1614 113/57 98.3 F (36.8 C) Oral 69 18 100 % 06/20/18 1241 116/56 97.1 F (36.2 C) Oral 95 18 99 % Intake/Output Summary (Last 24 hours) at 06/21/18 0834 Last data filed at 06/20/18 0911 Gross per 24 hour Intake 350 ml Output 0 ml Net 350 ml Physical Exam: Constitutional: Alert and oriented to self. Sitting up in bed. HEENT: Neck supple, no JVD, non icteric sclera. Cardiovascular: Normal rate, regular rhythm, normal heart sounds with S1 and S2, Exam re veals no gallop and no friction rub. No murmur heard. No S3, No S4 Pulmonary/Chest: Effort normal and breath sounds are normal. Abdominal: Soft. Bowel sounds are normal. exhibits no distension and no mass. There is no t enderness. There is no rebound and no guarding. Extremeties/Musculoskeletal: exhibits no edema. Neurological: Alert and oriented 1. Nonfocal. Skin: Skin is warm and dry. Psychiatric: Pleasantly confused. DATA Recent Labs Lab 06/21/18 0515 06/20/18 0444 06/19/18 0516 WBC 6.10 5.13 4.66 RBC 3.27* 3.44* 3.39* HGB 11.5* 12.2* 12.2* HCT 33.0* 35.1* 34.6* MCV 100.9* 101.8* 101.9* MCH 35.1* 35.3* 35.9* MCHC 34.8 34.7 35.2 RDW 48.1 48.1 47.7 PLT 289 307 272 MPV 8.8 8.8 8.1 DIFFTYPE AUTOMATED AUTOMATED AUTOMATED Recent Labs Lab 06/21/18 0515 06/20/18 0444 06/19/18 0516 NA 139 140 138 K 3.9 4.0 3.9 CL 104 104 107 CO2 28 28 26 BUN 20 23 18 CREATININE 0.7 0.7 0.6* GLUF 91 98 101* No results for input(s): CKTOTAL, TROPONINI, TROPONINT, CKMBINDEX in the last 168 hours. Recent Labs Lab 06/16/18 0506 06/15/18 0417 PHOS 4.1 4.4 Recent Labs Lab 06/16/18 0506 06/15/18 0830 06/15/18 0417 MG 1.8 2.6* 2.0 Invalid input(s): ABG No results for input(s): CALCIUM in the last 168 hours. No results for input(s): APTT, INR, PTT in the last 168 hours. PROBLEM LIST Principal Problem: Seizures (HCC) Active Problems: Hyperlipidemia Paroxysmal atrial fibrillation (HCC) Protein-calorie malnutrition, severe Physical deconditioning Chronic diarrhea Delirium Malignant neoplasm of colon (HCC) ETOH abuse Mass of brain Chronic systolic congestive heart failure (HCC) ASSESSMENT & PLAN Seizure disorder. Possibly alcohol withdrawal. Patient had abnormal EEG. Will continue Kepp ra. Neurology consulted. Keppra level still being processed. Paraneoplastic panel pending. Plan for discharge to SNF and son is agreeable to it H/O CVA. Patient has paroxysmal atrial fibrillation. RICH Vasc score is 3. Restarted aspir in 81 mg orally daily. Will continue high dose pravastatin . Echocardiogram shows EF between 45-50 percent. No ASD/VSD observed. Carotid Doppler showed no high-grade stenosis. Chronic systolic congestive heart failure. Unable to tolerate Toprol due to hypotension wh ich was discontinued. Echocardiogram shows EF between 45-50 percent. Echocardiogram in December 2014 showed EF between 35-40 percent with grade 2 diastolic dysfu nction. Hyperglycemia. Resolved. A1c is 5.1. Diarrhea. Stool for C. difficile negative. Will continue Imodium prn. Paroxysmal atrial fibrillation. No surgery will restart aspirin. TSH is within normal limit s. Patient is high risk for anticoagulation. Rich score is 3. Patient is high risk for anticoa gulation. Patient has a history of prior stroke and possible intracranial bleed. Patient has very high risk of bleeding with the anti-coagulation. This was discussed with the patient's son Byron and the rest of the family with a previous hospitalist. Family verbalized understa nding. Patient's son Byron and family understand that patient is at high risk for stroke with out anticoagulation. Delirium. Multifactorial. CSF HSV, VDRL,Varicella and West Nile negative. Acyclovir disc ontinued. No evidence of encephalitis. Will start melatonin. History of alcohol abuse. We will continue thiamine. History of colon cancer with brain mass. Repeat MRI shows cortical lesion. Neurosurgery con sulted. CT head shows stable noncalcified cortical lesion. Will hold aspirin. Severe protein calorie malnutrition. Dietitian consulted and will follow recommendations. Deep vein thrombosis prophylaxis. Lovenox discontinued in anticipation for surgery. Through [facility] certified historical interpreter I explained radiology and lab findings and plan of care to patienthey verbalized understanding and agreement and had no more questions for augusto caballero after my interaction with him. More than 25 minutes spent directly face to face with patie nt and more than 65% spent for physical examination and talking with patient at bedside, on chart review, coordinating care with other providers, formulating a plan of care and manage ment as well as Computerized Physician Restaurant Assistant. Dictation software, [employer], used which may contain error for similar sounding words even af ter review. Portions of this chart may have been copied from previous notes for continuity of care. Disposition: Inpatient Code Status: Full Code Nba Cr MD 06/21/2018 8:34 AM onversion Transaction, Provider Unknown - 06/21/2018 5:32 AM PDTFormatting of this note might be diff erent from the original. Nurse Progress Note by Joe Deleon RN at 06/21/18531 Author: Joe Deleon RN Service: (none) Author Type: Registered Nurse Filed: 06/21/1834 Date of Service: 06/21/18531 Status: Signed Sales Consulting Director: Joe Bolstad, RN (Registered Nurse) Pt's q4h neuro checks remain unchanged. Pt alert to self only, but not impulsive and is abl e to follow commands. Pt continues to refuse tele and IV change, but taking medications. Pt incontinent but voiding sufficiently, no loose BMs noted overnight. End of shift chart check complete. onver alex Transaction, Provider Unknown - 06/20/2018 6:30 PM PDT Nurse Progress Note by David Harmon RN at 06/20/181829 Author: David Harmon RN Service: (none) Author Type: Registered Nurse Filed: 06/20/181831 Date of Service: 06/20/181829 Status: Signed Sales Consulting Director: David Harmon RN (Registered Nurse) Pt had an uneventful day today. Neuro came and consulted with patient and deemed surgery un necessary. Refer to their note for more information. Pt did want to sit in the [facility] for a per iod while his friends were visiting. Pt was closely monitored during this time. Pt remains o riented to only his self, saying that he is at his friend's house. Chart check complete. David Harmon RN onver alex Transaction, Provider Unknown - 06/20/2018 10:33 AM PDT Therapy Progress Note by Nba Strong PT at 06/20/18 1033 Author: Nba Strong PT Service: (none) Author Type: Physical Therapist Filed: 06/20/181813 Date of Service: 06/20/18 1033 Status: Signed Sales Consulting Director: Nba Strong PT (Physical Therapist) 06/20/18 1033 PT Last Visit PT Received On 06/20/18 Requires PT Follow Up Unavailable Other Comments Comments Having OT evaluation at this time onver alex Transaction, Provider Unknown - 06/20/2018 10:11 AM PDT Case Management by Anne Marie Greenfield RN at 06/20/18 1011 Author: Anne Marie Greenfield RN Service: (none) Author Type: Registered Nurse Filed: 06/20/18 1543 Date of Service: 06/20/18 1011 Status: Addendum Sales Consulting Director: Anne Marie Greenfield RN (Registered Nurse) Related Notes: Original Note by Anne Marie Greenfield RN (Registered Nurse) filed at 06/20/18 1537 Discharge planning: Message left for Nolberto, coordinator of [facility] [phone], to on referral se nt. Message also left to oZey, admission coordinator of [facility] [phone]. 1430: Message received from Nolberto, admission coordinator of [facility], jozef is not accepted at [facility]. 1500: Pt can be transferred to [facility] when he is medically ready for transf er. onver alex Transaction, Provider Unknown - 06/20/2018 9:45 AM PDT Therapy Progress Note by GABRIELLA Nguyen/Ada at 06/20/18 0945 Author: IRAM Nguyen Service: (none) Author Type: Occupational Therapist Filed: 06/20/18 1017 Date of Service: 06/20/18 0945 Status: Signed Sales Consulting Director: IRAM Nguyen (Occupational Therapist) OCCUPATIONAL THERAPY REASSESSMENT OT Received On: 06/20/18 Reason for Treatment: Other (comment) (Seizures, AMS, chronic strokes, brain mass) Requires OT Follow Up: Yes OT Eval/Reassessment Date: 06/20/18 (OT evaluation completed) Assistance Required: 1 person Environmental Monitoring Specialist Needed: Yes, Environmental Monitoring Specialist present Family/Caregiver Present: No Recommendation: SNF Equipment Recommended: (TBD) Requires OT Follow Up: Yes OT Ready for Discharge: Yes Recommendation Comments Functionally pt was able to complete requested tasks with SBA-min A and encouragement. Unce rtain level of support family is able to provide at this time. Pt is only oriented to himsel f, limiting himself from answering cognitive questions-often reporting people thought he was crazy. Pt may benefit from further therapies at SNF setting prior to returning home. Plan Treatment Interventions: ADL retraining, Functional transfer training, Functional dynamic a ctivities, UE strengthening, Therapeutic exercises, Endurance training, Cognitive reorientat ion, Patient/Family training, Equipment eval/education, Compensatory technique education OT Frequency: 2-4 x/wk Care Duration (Days): 10 Days Requires OT Follow Up: Yes Summary RN reports good time to see pt. Pt reports no significant pain throughout session. Pt requi red VCS for encouragement during session, however agreeable to requested ADL tasks. Pt stood with wide RY, however did not have any LOB when standing to don pants over waist. Pt alexander alfredo back into bed at end of session. Pt may benefit from further skilled OT services to furt her address cognitive reintegration, home safety, family education.BP @ 120/64 Focus for next session: ADLs, home safety, transfers, increase activity tolerance, cognitiv e reintegration Follow up by: [] OT [] LITHOGRAPHIC PHOTOGRAPHER [x] Either Precautions Other Precautions: Fall precautions, cognition, monitor BP ADL LE Dressing Assistance: Minimal assist, Verbal instruction (VCs for encouragement; min A in standing) Lower body dressing impacted by: Endurance, Problem-solving, Safety concerns Functional Assistance: Minimal assist Toileting transfer impacted by: Endurance, Safety concerns, Problem-solving Additional Comments: Pt reluctant to participate in ADL tasks. Additional time to complete tasks. Pt was able to t/f OOB with elevated HOB and use of bed side rail. Min A while in sta nding for LE dressing. Pt then returned back into bed. Vision-Basic Assessment Current Vision: Wears glasses Vision - Complex Assessment Additional Comments: Denies any blurry of double vision Cognition Overall Cognitive Status: Impaired Orientation Level: Oriented, Disoriented Oriented: To person Disoriented: To place, To time, To situation Comments: Pt able to engage during OT session. Pt appeared confused throughout, and requiri ng VCs for encouragement to participate. Pt unable to answer month/year, place, or reason fo r being in hospital. Uncertain of family support. Sensation Additional Comments: Denies any numbness/tingling. Reports no significant pain throughout O T tx. Perception Inattention/Neglect: Appears intact Initiation: Instruction to initiate tasks (VCs for encouragement to participate) Motor Planning: Appears intact Perseveration: Not present RUE Assessment: (limited ROM; painful during elevation) LUE Assessment: Within Functional Limits Hand Function Gross Grasp: Functional Functional Gross Grasp: Able to grasp objects without difficulty Impaired Gross Grasp: Unable to grasp objects without difficulty Assessment Assessment: Decreased Safe judgement during ADL, Decreased cognition, Decreased endurance, Decreased self-care trans, Decreased high-level ADLs, Decreased ADL status Prognosis: Good, Fair Goal Formulation: Patient Activity Tolerance: Other (Comment) (limited by cognition) Safety Devices in Place: Yes Type of Devices: Bed alarm, Call lite in place (seated in bed) ADL Goals Pt Will Perform Grooming: Standing at sink, With supervision, With min assist Pt Will Perform LE Dressing: At edge of bed, In chair, Supervision Functional Transfer Goals Pt Will Perform All Functional Transfers: With supervision, With assistive device (TBD) Barriers to d/c at this time include: [x] Home environment [x] Family support [x] Equipment needs [x] Cognitive deficits impacting functional independence [x] Physical deficits impacting functional independence [x] Self-care deficits impacting functional independence [] Other Pain The patient did not demonstrate any signs of symptoms of pain throughout OT session Education Completed: [] Role of OT [] Walker safety with ADLs and functional transfers [] Fall prevention [] Home modifications [] Adaptive equipment training and recommendations [x] Functional transfer training [x] Current level of assist and compensatory techniques for increased independence [x] Discharge recommendations for ADL/IADL participation [] Sternal Precautions during ADL [] Back Precautions during ADL [] Hip Precautions ADLs [] Upper extremity exercise program [] Other Completed with: [x] Patient [] Spouse [] Significant other [] Family [] C aregiver [] Other Completed by: [x] Verbal education [x] Demonstration [] Handout [] Other: Response to Education: [x] Stated Understanding [x] Reinforcement necessary [x] Returned demonstration [] Demonstrated understanding [x] No evidence of learning [] Refused Nba Mantilla MD - 06/20/2018 8:55 AM PDTFormatting of this note might be different f rom the original. Progress Notes by Nba Cr MD at 06/20/18 9207 Author: Nba Cr MD Service: Hospitalist Author Type: Physician Filed: 06/20/18 1832 Date of Service: 06/20/18 0855 Status: Signed Sales Consulting Director: Nba Cr MD (Physician) [facility] Service: Hospitalist Progress Note Hospital Day: LOS: 11 days SUBJECTIVE Patient Summary: 68-year-old Malagasy-speaking gentleman with a history of rectal canc er , hyperlipidemia, alcohol abuse admitted with seizure and possibly encephalitis. Patient was initially admitted to the ICU requiring intubation. He was extubated on June 14. He und erwent LP. ID was consulted he was treated with the acyclovir but CSF was negative for herpe s PCR and acyclovir was discontinued. Initial MRI showed cortical mass and neurosurgery was consulted and recommended repeat MRI in a week. Repeat MRI shows a cortical lesion and neurosurgery has been consulted. Patient had EEG 2-which showed left temporal epileptiform discharges. Neurology has been consulted and patient is on Keppra. Patient has paroxysmal atrial fibrillation and is high risk candidate for anticoagulation. He was started on aspirin which is being held for possible neurosurgery. Neurology and ID consulted. Neurosurgery consulted for brain mass. He also has chronic systolic congestive heart failure. Events Overnight: Patient seen and examined at bedside on follow-up with [facility] certifie d historical interpreter, the patient is oriented to place, he states is in the hospital but he states he does not know what city this is, is oriented to person, vital signs have been sta ble overnight, has not needed supplemental O2, denies shortness of breath, he was eating whe n I saw him and continues to have a good appetite finishing up to 100 percent of his meals, occupational therapy saw the patient today and recommended SNF. Physical therapy has not see n the patient today. Dr. Pederson of neurosurgery saw the patient today and did not think the patient needed surgery, he recommended follow up in this office in 3 months. Scheduled Medications levETIRAcetam 500 mg Oral BID melatonin 3 mg Oral Nightly pravastatin 80 mg Oral Nightly thiamine 100 mg Oral Daily Continuous Infusions PRN Medications acetaminophen OR acetaminophen, loperamide, ondansetron OR ondansetron, sodium chlo ride 0.9 % OBJECTIVE Vital Signs: BP 93/54 (BP Location: Right upper arm) | Pulse 72 | Temp 97.1 F (36.2 C) (Axillary) | Resp 16 | Ht 1.626 m (5' 4") | Wt 61.1 kg (134 lb 11.2 oz) | SpO2 100% | BMI 23.12 kg /m Patient Vitals for the past 24 hrs: BP Temp Temp src Pulse Resp SpO2 Weight 06/20/18 0806 93/54 97.1 F (36.2 C) Axillary 72 16 100 % - 06/20/18 0357 109/59 97.8 F (36.6 C) Oral 71 16 100 % 61.1 kg (134 lb 11.2 oz) 06/19/18 2352 96/58 98.1 F (36.7 C) Oral 72 16 98 % - 06/19/182004 115/64 98.1 F (36.7 C) Oral 98 18 98 % - 06/19/18 1638 97/58 97.3 F (36.3 C) Oral 91 18 99 % - 06/19/18 1116 122/62 98.5 F (36.9 C) Oral 71 17 98 % - Intake/Output Summary (Last 24 hours) at 06/20/18 0855 Last data filed at 06/20/18 0617 Gross per 24 hour Intake 140 ml Output 200 ml Net -60 ml Physical Exam: Constitutional: Alert and oriented to self. Sitting up in bed. HEENT: Neck supple, no JVD, non icteric sclera. Cardiovascular: Normal rate, regular rhythm, normal heart sounds with S1 and S2, Exam re veals no gallop and no friction rub. No murmur heard. No S3, No S4 Pulmonary/Chest: Effort normal and breath sounds are normal. Abdominal: Soft. Bowel sounds are normal. exhibits no distension and no mass. There is no t enderness. There is no rebound and no guarding. Extremeties/Musculoskeletal: exhibits no edema. Neurological: Alert and oriented 1. Nonfocal. Skin: Skin is warm and dry. Psychiatric: Pleasantly confused. DATA Recent Labs Lab 06/20/18 0444 06/19/18 0516 06/18/18 0546 WBC 5.13 4.66 6.76 RBC 3.44* 3.39* 3.64* HGB 12.2* 12.2* 12.7* HCT 35.1* 34.6* 36.0* MCV 101.8* 101.9* 98.8 MCH 35.3* 35.9* 34.8* MCHC 34.7 35.2 35.2 RDW 48.1 47.7 47.7 PLT 307 272 285 MPV 8.8 8.1 8.3 DIFFTYPE AUTOMATED AUTOMATED AUTOMATED Recent Labs Lab 06/20/18 0444 06/19/18 0516 06/18/18 0546 NA 140 138 137 K 4.0 3.9 3.9 CL 104 107 104 CO2 28 26 24 BUN 23 18 16 CREATININE 0.7 0.6* 0.6* GLUF 98 101* 99 No results for input(s): CKTOTAL, TROPONINI, TROPONINT, CKMBINDEX in the last 168 hours. Recent Labs Lab 06/16/18 0506 06/15/18 0417 06/14/18 0506 PHOS 4.1 4.4 3.1 Recent Labs Lab 06/16/18 0506 06/15/18 0830 06/15/18 0417 MG 1.8 2.6* 2.0 Invalid input(s): ABG No results for input(s): CALCIUM in the last 168 hours. No results for input(s): APTT, INR, PTT in the last 168 hours. PROBLEM LIST Principal Problem: Seizures (HCC) Active Problems: Hyperlipidemia Paroxysmal atrial fibrillation (HCC) Protein-calorie malnutrition, severe Physical deconditioning Chronic diarrhea Delirium Malignant neoplasm of colon (HCC) ETOH abuse Mass of brain Chronic systolic congestive heart failure (HCC) ASSESSMENT & PLAN Seizure disorder. Possibly alcohol withdrawal. Patient had abnormal EEG. Will continue Kepp ra. Neurology consulted. Will check Keppra level tomorrow. Paraneoplastic panel pending. H/O CVA. Patient has paroxysmal atrial fibrillation. RICH Vasc score is 3. Restarted aspir in 81 mg orally daily. Will continue high dose pravastatin . Echocardiogram shows EF between 45-50 percent. No ASD/VSD observed. Carotid Doppler showed no high-grade stenosis. Chronic systolic congestive heart failure. Unable to tolerate Toprol due to hypotension wh ich was discontinued. Echocardiogram shows EF between 45-50 percent. Echocardiogram in December 2014 showed EF between 35-40 percent with grade 2 diastolic dysfu nction. Hyperglycemia. Resolved. A1c is 5.1. Diarrhea. Stool for C. difficile negative. Will continue Imodium prn. Paroxysmal atrial fibrillation. No surgery will restart aspirin. TSH is within normal limit s. Patient is high risk for anticoagulation. Rich score is 3. Patient is high risk for anticoa gulation. Patient has a history of prior stroke and possible intracranial bleed. Patient has very high risk of bleeding with the anti-coagulation. This was discussed with the patient's son Byron and the rest of the family with a previous hospitalist. Family verbalized understa nding. Patient's son Byron and family understand that patient is at high risk for stroke with out anticoagulation. Delirium. Multifactorial. CSF HSV, VDRL,Varicella and West Nile negative. Acyclovir disc ontinued. No evidence of encephalitis. Will start melatonin. History of alcohol abuse. We will continue thiamine. History of colon cancer with brain mass. Repeat MRI shows cortical lesion. Neurosurgery con sulted. CT head shows stable noncalcified cortical lesion. Will hold aspirin. Severe protein calorie malnutrition. Dietitian consulted and will follow recommendations. Deep vein thrombosis prophylaxis. Lovenox discontinued in anticipation for surgery. Through [facility] certified historical interpreter I explained radiology and lab findings and plan of care to patient and relatives and they verbalized understanding and agreement and had no more questions for me after my interaction with them. More than 35 minutes spent directly fa ce to face with patient and more than 65% spent for physical examination and talking with p atient and relatives at bedside, on chart review, coordinating care with other providers, fo rmulating a plan of care and management as well as Computerized Physician Restaurant Assistant. Dictation software, [employer], used which may contain error for similar sounding words even af ter review. Portions of this chart may have been copied from previous notes for continuity of care. Disposition: Inpatient Code Status: Full Code Nba Cr MD 06/20/2018 8:55 AM onversion Transaction, Provider Unknown - 06/20/2018 4:09 AM PDTFormatting of this note might be diff erent from the original. Nurse Progress Note by Wilner Gambino RN at 06/20/18 0403 Author: Wilner Gambino RN Service: (none) Author Type: Registered Nurse Filed: 06/20/18 0618 Date of Service: 06/20/18 0409 Status: Signed Sales Consulting Director: Wilner Gambino RN (Registered Nurse) End of shift note Pt has rested comfortably throughout the night. Pt had one loose stool and received prn Imo dium. VSS. No other acute changes from previous assessment. 24 hour chart check complete onver alex Transaction, Provider Unknown - 06/19/2018 5:49 PM PDT Nurse Progress Note by Mulu Vazquez RN at 06/19/181748 Author: Mulu Vazquez RN Service: (none) Author Type: Registered Nurse Filed: 06/19/181749 Date of Service: 06/19/181748 Status: Signed Sales Consulting Director: Mulu Vazquez RN (Registered Nurse) Pt has been confused and increasingly agitated throughout shift. Repeatedly set off bed al arm. Does not reorient at all. He has been able to eat independently. Plan for placement. No restraints, blood, parameter meds, or signed and held orders. CIWA assessments performed without intervention. End of shift review complete. onver alex Transaction, Provider Unknown - 06/19/2018 12:52 PM PDT Case Management by Anne Marie Greenfield RN at 06/19/18 1252 Author: Anne Marie Greenfield RN Service: (none) Author Type: Registered Nurse Filed: 06/20/18 1011 Date of Service: 06/19/18 1252 Status: Addendum Sales Consulting Director: Anne Marie Greenfield RN (Registered Nurse) Related Notes: Original Note by Anne Marie Greenfield RN (Registered Nurse) filed at 06/19/18 1255 Discharge planning: Message left for pt's son Byron Eaton [phone], awaiting his call back to disc uss PT's recommendation. PATIENT SITTER FREE FROM 06/18. 1400: Referrals sent to Emil Farah and Nahum Hutchison. Rosie León MD - 06/19/2018 11:43 AM PDTFormatting of this note might be different from t he original. Progress Notes by Rosie Lindsay MD at 06/19/18 1142 Author: Rosie Lindsay MD Service: Hospitalist Author Type: Physician Filed: 06/19/18 1408 Date of Service: 06/19/18 7931 Status: Addendum Sales Consulting Director: Rosie Lindsay MD (Physician) Related Notes: Original Note by Rosie Lindsay MD (Physician) filed at 06/19/18 1409 [facility] Service: Hospitalist Progress Note Hospital Day: LOS: 10 days SUBJECTIVE Patient Summary: 68-year-old Malagasy-speaking gentleman with a history of rectal canc er , hyperlipidemia, alcohol abuse admitted with seizure and possibly encephalitis. Patient was initially admitted to the ICU requiring intubation. He was extubated on June 14. He und erwent LP. ID was consulted he was treated with the acyclovir but CSF was negative for herpe s PCR and acyclovir was discontinued. Initial MRI showed cortical mass and neurosurgery was consulted and recommended repeat MRI in a week. Repeat MRI shows a cortical lesion and neurosurgery has been consulted. Patient had EEG 2-which showed left temporal epileptiform discharges. Neurology has been consulted and patient is on Keppra. Patient has paroxysmal atrial fibrillation and is high risk candidate for anticoagulation. He was started on aspirin which is being held for possible neurosurgery. Neurology and ID consulted. Neurosurgery consulted for brain mass. He also has chronic systolic congestive heart failure. Events Overnight: Patient is oriented to self. He denies any complaints. He thinks th at he is in [place]. Scheduled Medications levETIRAcetam 500 mg Oral BID melatonin 3 mg Oral Nightly pravastatin 80 mg Oral Nightly thiamine 100 mg Oral Daily Continuous Infusions PRN Medications acetaminophen OR acetaminophen, loperamide, ondansetron OR ondansetron, sodium chlo ride 0.9 % OBJECTIVE Vital Signs: BP 122/62 (BP Location: Right upper arm) | Pulse 71 | Temp 98.5 F (36.9 C) (Oral) | Resp 17 | Ht 1.626 m (5' 4") | Wt 63 kg (138 lb 14.2 oz) | SpO2 98% | BMI 23.84 kg/m Patient Vitals for the past 24 hrs: BP Temp Temp src Pulse Resp SpO2 Weight 06/19/18 1116 122/62 98.5 F (36.9 C) Oral 71 17 98 % - 06/19/18 0830 106/63 97.6 F (36.4 C) Oral 63 18 100 % - 06/19/18 0345 111/59 98.4 F (36.9 C) Temporal 63 18 99 % 63 kg (138 lb 14.2 oz) 06/18/18 2349 96/51 97.2 F (36.2 C) Temporal 63 16 99 % - 06/18/18 1923 104/62 97.1 F (36.2 C) Oral 79 18 98 % - 06/18/18 1520 102/54 - - 71 - 97 % - 06/18/18 1519 (!) 80/56 98.2 F (36.8 C) Oral 69 18 98 % - 06/18/18 1300 97/55 - - 72 - - - 06/18/18 1218 100/59 98.3 F (36.8 C) Oral 94 19 100 % - Intake/Output Summary (Last 24 hours) at 06/19/18 1202 Last data filed at 06/19/18 0907 Gross per 24 hour Intake 340 ml Output 0 ml Net 340 ml Physical Exam: Constitutional: Alert and oriented to self. Sitting up in bed. HEENT: Neck supple, no JVD, non icteric sclera. Cardiovascular: Normal rate, regular rhythm, normal heart sounds with S1 and S2, Exam re veals no gallop and no friction rub. No murmur heard. No S3, No S4 Pulmonary/Chest: Effort normal and breath sounds are normal. Abdominal: Soft. Bowel sounds are normal. exhibits no distension and no mass. There is no t enderness. There is no rebound and no guarding. Extremeties/Musculoskeletal: exhibits no edema. Neurological: Alert and oriented 1. Nonfocal. Skin: Skin is warm and dry. Psychiatric: Pleasantly confused. DATA Recent Labs Lab 06/19/18 0516 06/18/18 0546 06/17/18 0457 WBC 4.66 6.76 4.71 RBC 3.39* 3.64* 3.49* HGB 12.2* 12.7* 12.5* HCT 34.6* 36.0* 35.0* MCV 101.9* 98.8 100.1* MCH 35.9* 34.8* 35.7* MCHC 35.2 35.2 35.6* RDW 47.7 47.7 47.3 PLT 272 285 284 MPV 8.1 8.3 9.0 DIFFTYPE AUTOMATED AUTOMATED AUTOMATED Recent Labs Lab 06/19/18 0516 06/18/18 0546 06/17/18 0457 NA 138 137 136 K 3.9 3.9 3.9 CL 107 104 101 CO2 26 24 26 BUN 18 16 16 CREATININE 0.6* 0.6* 0.6* GLUF 101* 99 84 No results for input(s): CKTOTAL, TROPONINI, TROPONINT, CKMBINDEX in the last 168 hours. Recent Labs Lab 06/16/18 0506 06/15/18 0417 06/14/18 0506 PHOS 4.1 4.4 3.1 Recent Labs Lab 06/16/18 0506 06/15/18 0830 06/15/18 0417 MG 1.8 2.6* 2.0 Invalid input(s): ABG No results for input(s): CALCIUM in the last 168 hours. Recent Labs Lab 06/12/18 1319 INR 1.0 PROBLEM LIST Principal Problem: Seizures (HCC) Active Problems: Hyperlipidemia Paroxysmal atrial fibrillation (HCC) Protein-calorie malnutrition, severe Physical deconditioning Chronic diarrhea Delirium Malignant neoplasm of colon (HCC) ETOH abuse Mass of brain Chronic systolic congestive heart failure (HCC) ASSESSMENT & PLAN Seizure disorder. Possibly alcohol withdrawal. Patient had abnormal EEG. Will continue Kepp ra. Neurology consulted. Will check Keppra level in 3 days. Paraneoplastic panel pending. H/O CVA. Patient has paroxysmal atrial fibrillation. RICH Vasc score is 3. Aspirin held for possible surgery. Will continue high dose pravastatin . Echocardiogram shows EF between 45-50 percent. No ASD/VSD observed. Carotid Doppler showed no high-grade stenosis. Chronic systolic congestive heart failure. Unable to tolerate Toprol due to hypotension wh ich was discontinued. Echocardiogram shows EF between 45-50 percent. Echocardiogram in December 2014 showed EF between 35-40 percent with grade 2 diastolic dysfu nction. Hyperglycemia. Resolved. A1c is 5.1. Diarrhea. Stool for C. difficile negative. Will continue Imodium prn. Paroxysmal atrial fibrillation. Aspirin held for possible surgery. TSH is within normal [place] its. Patient is high risk for anticoagulation. Rich score is 3. Patient is high risk for anticoa gulation. Patient has a history of prior stroke and possible intracranial bleed. Patient has very high risk of bleeding with the anti-coagulation. This was discussed with the patient's son Byron and the rest of the family. Family verbalized understanding. Patient's son Byron hogue family understand that patient is at high risk for stroke without anticoagulation. Delirium. Multifactorial. CSF HSV, VDRL,Varicella and West Nile negative. Acyclovir disc ontinued. No evidence of encephalitis. Will start melatonin. History of alcohol abuse. We will continue thiamine. History of colon cancer with brain mass. Repeat MRI shows cortical lesion. Neurosurgery con sulted. CT head shows stable noncalcified cortical lesion. Will hold aspirin. Severe protein calorie malnutrition. Dietitian consulted and will follow recommendations. Deep vein thrombosis prophylaxis. Lovenox discontinued in anticipation for surgery. Disposition: Inpatient Code Status: Full Code Rosie Lindsay MD 06/19/2018 12:02 PM This entry has been created using [employer] Speech Recognition software and [employer]. The entry has been reviewed and there may still exist sound alike word errors. onversion Trans action, Provider Unknown - 06/19/2018 5:51 AM PDT Nurse Progress Note by Tae Wahl RN at 06/19/18 0551 Author: Tae Wahl RN Service: (none) Author Type: Registered Nurse Filed: 06/19/1851 Date of Service: 06/19/18550 Status: Signed Sales Consulting Director: Tae Wahl RN (Registered Nurse) Chart check complete onver alex Transaction, Provider Unknown - 06/18/2018 4:13 PM PDT Nurse Progress Note by Ignacio Ludwig RN at 06/18/18 6499 Author: Ignacio Ludwig RN Service: (none) Author Type: Registered Nurse Filed: 06/18/18 161 Date of Service: 06/18/181612 Status: Signed Sales Consulting Director: Ignacio Ludwig RN (Registered Nurse) Chart check complete. illon nieves, Rosie Rodrgiuez MD - 06/18/2018 10:41 AM PDTFormatting of this note might be different from t he original. Progress Notes by Rosie Lindsay MD at 06/18/18 1041 Author: Rosie Lindsay MD Service: Hospitalist Author Type: Physician Filed: 06/18/18 1354 Date of Service: 06/18/18 104 Status: Signed Sales Consulting Director: Rosie Lindsay MD (Physician) [facility] Service: Hospitalist Progress Note Hospital Day: LOS: 9 days SUBJECTIVE Patient Summary: 68-year-old Malagasy-speaking gentleman with a history of rectal canc er , hyperlipidemia, alcohol abuse admitted with seizure and possibly encephalitis. Neurolog y and ID consulted. Neurosurgery consulted for brain mass. Events Overnight: Patient is oriented to self. He denies any complaints. Scheduled Medications insulin lispro (human) 0-3 Units Subcutaneous Nightly insulin lispro (human) 0-6 Units Subcutaneous TID AC levETIRAcetam 500 mg Oral BID metoprolol 12.5 mg Oral Daily pravastatin 80 mg Oral Nightly thiamine 100 mg Oral Daily Continuous Infusions PRN Medications acetaminophen OR acetaminophen, ondansetron OR ondansetron, sodium chloride 0.9 % OBJECTIVE Vital Signs: BP (!) 87/51 | Pulse 100 | Temp 97.8 F (36.6 C) (Axillary) | Resp 19 | Ht 1.626 m ( 5' 4") | Wt 62 kg (136 lb 11 oz) | SpO2 100% | BMI 23.46 kg/m Patient Vitals for the past 24 hrs: BP Temp Temp src Pulse Resp SpO2 Weight 06/18/18 1010 (!) 87/51 - - 100 - - - 06/18/18 0819 110/56 97.8 F (36.6 C) Axillary 89 19 100 % - 06/18/18 0505 104/55 97.5 F (36.4 C) Oral 70 18 100 % 62 kg (136 lb 11 oz) 06/17/18 2324 124/75 98.9 F (37.2 C) Oral 81 18 99 % - 06/17/18 2019 111/64 97.5 F (36.4 C) Axillary 81 18 99 % - 06/17/18 1505 149/72 99.2 F (37.3 C) Temporal 77 19 100 % - 06/17/18 1256 92/56 - - - - - - 06/17/18 1209 (!) 83/50 98.7 F (37.1 C) Temporal 101 19 91 % - Intake/Output Summary (Last 24 hours) at 06/18/18 1041 Last data filed at 06/18/18 0819 Gross per 24 hour Intake 710 ml Output 0 ml Net 710 ml Physical Exam: Constitutional: Alert and oriented to self. Lying in a chair. HEENT: Neck supple, no JVD, non icteric sclera. Cardiovascular: Normal rate, regular rhythm, normal heart sounds with S1 and S2, Exam re veals no gallop and no friction rub. No murmur heard. No S3, No S4 Pulmonary/Chest: Effort normal and breath sounds are normal. Abdominal: Soft. Bowel sounds are normal. exhibits no distension and no mass. There is no t enderness. There is no rebound and no guarding. Extremeties/Musculoskeletal: exhibits no edema. Neurological: Alert and oriented 1. Nonfocal. Skin: Skin is warm and dry. Psychiatric: Pleasantly confused. DATA Recent Labs Lab 06/18/18 0546 06/17/1845606/16/18 0506 WBC 6.76 4.71 6.99 RBC 3.64* 3.49* 3.90* HGB 12.7* 12.5* 13.9 HCT 36.0* 35.0* 39.0 MCV 98.8 100.1* 100.0 MCH 34.8* 35.7* 35.7* MCHC 35.2 35.6* 35.7* RDW 47.7 47.3 46.4 PLT 285 284 290 MPV 8.3 9.0 9.1 DIFFTYPE AUTOMATED AUTOMATED AUTOMATED Recent Labs Lab 06/18/18 0546 06/17/187 06/16/18 0506 NA 137 136 135 K 3.9 3.9 4.0 CL 104 101 98* CO2 24 26 27 BUN 16 16 20 CREATININE 0.6* 0.6* 0.7 GLUF 99 84 94 No results for input(s): CKTOTAL, TROPONINI, TROPONINT, CKMBINDEX in the last 168 hours. Recent Labs Lab 06/16/18 0506 06/15/18 0417 06/14/18 0506 PHOS 4.1 4.4 3.1 Recent Labs Lab 06/16/18 0506 06/15/18 0830 06/15/18 0417 MG 1.8 2.6* 2.0 Invalid input(s): ABG No results for input(s): CALCIUM in the last 168 hours. Recent Labs Lab 06/12/18 1319 INR 1.0 PROBLEM LIST Principal Problem: Seizures (HCC) Active Problems: Hyperlipidemia Paroxysmal atrial fibrillation (HCC) Protein-calorie malnutrition, severe Physical deconditioning Chronic diarrhea Encephalopathy Malignant neoplasm of colon (HCC) ETOH abuse Mass of brain Chronic systolic congestive heart failure (HCC) ASSESSMENT & PLAN Seizure disorder. Possibly alcohol withdrawal. Patient had abnormal EEG. Will continue Kepp ra. Neurology consulted. Will check Keppra level in one week. Paraneoplastic panel pending. H/O CVA. Patient has paroxysmal atrial fibrillation. RICH Vasc score is 3. Lipid profile results noted. Aspirin held for possible surgery. Will continue pravastatin . Echocardiogram shows EF between 45-50 percent. No ASD/VSD observed. Carotid Doppler showed no high-grade stenosis. Chronic systolic congestive heart failure. Patient has borderline low blood pressure. Unabl e to tolerate Toprol which was discontinued. Echocardiogram shows EF between 45-50 percent. Echocardiogram in December 2014 showed EF between 35-40 percent with grade 2 diastolic dysfu nction. Hyperglycemia. Resolved. We will stop sliding scale insulin. A1c is 5.1. Diarrhea. Stool for C. difficile negative. Will start Imodium prn. Paroxysmal atrial fibrillation. Aspirin held for possible surgery. TSH is within normal [place] its. Patient is high risk for anticoagulation. Rich score is 3. Patient is high risk for anticoa gulation. Patient has a history of prior stroke and possible intracranial bleed. Patient has very high risk of bleeding with the anti-coagulation. This was discussed with the patient's son Byron and the rest of the family. Family verbalized understanding. Patient's son Byron an d family understand that patient is at high risk for stroke without anticoagulation. Encephalopathy . Multifactorial. CSF HSV, VDRL,Varicella and West Nile negative. Acyclovi r discontinued. History of alcohol abuse. We will continue thiamine. History of colon cancer with brain mass. Repeat MRI shows cortical lesion. Neurosurgery con sulted. CT head shows stable noncalcified cortical lesion. Will hold aspirin. This was also discussed with patient's family. Severe protein calorie malnutrition. Dietitian consulted and will follow recommendations. Deep vein thrombosis prophylaxis. Lovenox discontinued in anticipation for surgery. Plan discussed in detail with patient's son and family with a head shipper all questi ons answered. Disposition: Inpatient Code Status: Full Code Rosie Lindsay MD 06/18/2018 10:41 AM This entry has been created using [employer] Speech [employer]ognition software and [employer]. The entry has been reviewed and there may still exist sound alike word errors. ntonella Randle ra, MA, CCC-CANVAS BASTER - 06/17/2018 3:37 PM PDTFormatting of this note might be different from t he original. Therapy Progress Note by Lucía Randle MA CCC-CANVAS BASTER at 06/17/18 4167 Author: Lucía Randle MA CCC-CANVAS BASTER Service: (none) Author Type: Speech and Language Pathologist Filed: 06/17/18 7499 Date of Service: 06/17/181536 Status: Signed Sales Consulting Director: Lucía Randle MA CCC-CANVAS BASTER (Speech and Language Pathologist) BEDSIDE SWALLOW CANVAS BASTER Last Visit [facility]VAS BASTER Received On: 06/17/18 Requires CANVAS BASTER Follow Up: Yes Recommendations Liquids Consistency Recommendations: Thin Diet Consistency Recommendation: Mechanical Soft Recommendations: 1:1 supervision, Dysphagia treatment, Set up with meals Risk for Aspiration: Moderate Compensatory Swallowing Strategies: Upright as possible for all oral intake, Remain upright for 30 minutes after meals, Slow rate presentation, No straws, Small bites/sips, Eat/feed s lowly Recommended Form of Meds: With puree Summary: Pt seen for f/u dysphagia therapy with sitter present. Pt w/no overt s/sx of aspir ation with trials of thin liquid and soft solid textures. Impaired mastication with regular textures, pt commenting "I can't bite. I have no teeth." 1x delayed throat clear after trial of regular solid. Recommend a Mechanical Soft diet with thin liquids. Pt to continue to fol low swallow precautions. ST to f/u and ensure new diet tolerance. Suspect new upgraded diet to be least restrictive diet d/t pt's poor dentition. Staff Notified: RN Plan of Care Treatment Plan: ST to follow, Dysphagia treatment Treatment Frequency: 2-4 x/week Follow up treatments: Assessment for upgrade, Patient/Family education, Diet tolerance barbara toring Swallowing Treatment: Yes Patient Assessment Respiratory Status: Room air Behavior/Cognition: Cooperative, Alert Patient Positioning: Upright in bed Baseline Vocal Quality: Hoarse Consistencies Consistencies Assessed: Yes Thin Presentation: Self Fed, Cup Oral Phase Thin: Increased hold time Pharyngeal Phase: Delayed swallow initiated, No overt signs or symptoms of aspiration Dysphagia Mechanically Altered Presentation: Self Fed, Spoon Oral Phase: Prolonged mastication Pharyngeal Phase: Delayed Swallow, No overt signs or symptoms of aspiration Regular Presentation: Self Fed Oral Phase: Prolonged mastication, Impaired Mastication Pharyngeal Phase: Delayed Swallow, Throat Clearing - Delayed Goals are progressing unless otherwise indicated. Dysphagia Goals Pt will have safe/efficient oral intake : Thin liquids, Mechanical soft diet, With mod cues , New/revised goal Pt will follow swallow precautions : With feeding assist, with 1:1 supervision, Goal progre ssing Education Completed Education Topics: Dysphagia: Explain results of session, speech-language pathology role, plan of care, most s afe diet and swallow precautions Completed with: [x] Patient [] Spouse [] Significant other [] Family [] Caregiver [] Other Completed by: [x] Verbal education [x] Demonstration [] Handout [] Other: Response to Education: [x] Stated Understanding [x] Reinforcement necessary [] Retur vish demonstration [] Demonstrated understanding [] No evidence of learning [] Refused Mandeep nieves, Rosie Rodriguez MD - 06/17/2018 10:02 AM PDTFormatting of this note might be different from t danish original. Progress Notes by Rosie Lindsay MD at 06/17/18 1002 Author: Rosie Lindsay MD Service: Hospitalist Author Type: Physician Filed: 06/17/18 1318 Date of Service: 06/17/18 1002 Status: Addendum Sales Consulting Director: Rosie Lindsay MD (Physician) Related Notes: Original Note by Rosie Lindsay MD (Physician) filed at 06/17/18 1318 [facility] Service: Hospitalist Progress Note Hospital Day: LOS: 8 days SUBJECTIVE Patient Summary: 68-year-old Malagasy-speaking gentleman with a history of rectal canc er , hyperlipidemia, alcohol abuse admitted with seizure and possibly encephalitis. Neurolog y and ID consulted. Neurosurgery consulted for brain mass. Events Overnight: Patient is oriented to self. He remains confused. He thinks he is i n [place]. Scheduled Medications insulin lispro (human) 0-3 Units Subcutaneous Nightly insulin lispro (human) 0-6 Units Subcutaneous TID AC levETIRAcetam 500 mg Oral BID pravastatin 40 mg Oral Nightly thiamine 100 mg Oral Daily Continuous Infusions PRN Medications acetaminophen OR acetaminophen, ondansetron OR ondansetron, sodium chloride 0.9 % OBJECTIVE Vital Signs: BP 134/72 (BP Location: Left upper arm) | Pulse 105 | Temp 98.4 F (36.9 C) (Oral) | Resp 19 | Ht 1.626 m (5' 4") | Wt 64 kg (141 lb 1.5 oz) | SpO2 99% | BMI 24.22 kg/m Patient Vitals for the past 24 hrs: BP Temp Temp src Pulse Resp SpO2 Weight 06/17/18 0748 134/72 98.4 F (36.9 C) Oral 105 19 99 % - 06/17/18 0544 139/78 97.9 F (36.6 C) Oral 81 18 98 % 64 kg (141 lb 1.5 oz) 06/16/18 2337 128/76 98.6 F (37 C) Oral 73 16 100 % - 06/16/18 1939 144/75 97 F (36.1 C) Axillary 68 16 99 % - 06/16/18 1652 - - - - - - 64 kg (141 lb) 06/16/18 1624 161/78 97.6 F (36.4 C) Axillary 63 16 100 % - 06/16/18 1216 151/81 97.7 F (36.5 C) Axillary 97 20 99 % - No intake or output data in the 24 hours ending 06/17/18 1031 Physical Exam: Constitutional: Alert and oriented to self. Sitting up in a chair. HEENT: Neck supple, no JVD, non icteric sclera. Cardiovascular: Normal rate, regular rhythm, normal heart sounds with S1 and S2, Exam re veals no gallop and no friction rub. No murmur heard. No S3, No S4 Pulmonary/Chest: Effort normal and breath sounds are normal. Abdominal: Soft. Bowel sounds are normal. exhibits no distension and no mass. There is no t enderness. There is no rebound and no guarding. Extremeties/Musculoskeletal: exhibits no edema. Neurological: Alert and oriented 1. Nonfocal. Skin: Skin is warm and dry. Psychiatric: Unable to evaluate. DATA Recent Labs Lab 06/17/18 04506/16/18 0506 06/15/18 0417 WBC 4.71 6.99 6.04 RBC 3.49* 3.90* 3.66* HGB 12.5* 13.9 12.9* HCT 35.0* 39.0 37.1* MCV 100.1* 100.0 101.4* MCH 35.7* 35.7* 35.2* MCHC 35.6* 35.7* 34.7 RDW 47.3 46.4 47.3 PLT 284 290 247 MPV 9.0 9.1 9.4 DIFFTYPE AUTOMATED AUTOMATED MANUAL Recent Labs Lab 06/17/18 0457 06/16/18 0506 06/15/18 0417 NA 136 135 134* K 3.9 4.0 4.6 CL 101 98* 99 CO2 26 27 27 BUN 16 20 15 CREATININE 0.6* 0.7 0.7 GLUF 84 94 138* No results for input(s): CKTOTAL, TROPONINI, TROPONINT, CKMBINDEX in the last 168 hours. Recent Labs Lab 06/16/18 0506 06/15/18 0417 06/14/18 0506 PHOS 4.1 4.4 3.1 Recent Labs Lab 06/16/18 0506 06/15/18 0830 06/15/18 0417 MG 1.8 2.6* 2.0 Invalid input(s): ABG No results for input(s): CALCIUM in the last 168 hours. Recent Labs Lab 06/12/18 1319 INR 1.0 PROBLEM LIST Principal Problem: Seizures (HCC) Active Problems: Hyperlipidemia Paroxysmal atrial fibrillation (HCC) Protein-calorie malnutrition, severe Physical deconditioning Chronic diarrhea Encephalopathy Malignant neoplasm of colon (HCC) ETOH abuse Mass of brain ASSESSMENT & PLAN Seizure disorder. Possibly alcohol withdrawal. Patient had abnormal EEG. Will continue Kepp ra. Neurology consulted. Will check Keppra level in one week. Paraneoplastic panel pending. H/O CVA. Patient has paroxysmal atrial fibrillation. RICH Vasc score is 3. Lipid profile results noted. Aspirin held for possible surgery. Will continue pravastatin and increase dos e. Echocardiogram shows EF between 45-50 percent. Carotid Doppler showed no high-grade stenos is. Chronic systolic congestive heart failure. Will start patient on low-dose Toprol. Echocardi ogram shows EF between 45-50 percent. Echocardiogram in December 2014 showed EF between 35-40 percent with grade 2 diastolic dysfu nction. Hyperglycemia. Blood sugars are controlled on sliding scale insulin. A1c is 5.1. Paroxysmal atrial fibrillation. Aspirin held for possible surgery. TSH is within normal [place] its. Patient is high risk for anticoagulation. Rich score is 3. Patient is high risk for anticoa gulation. Patient has a history of prior stroke and possible intracranial bleed. Patient has very high risk of bleeding with the anti-coagulation. This was discussed with the patient's son Byron and the rest of the family. Family verbalized understanding. Patient's son Byron an d family understand that patient is at high risk for stroke without anticoagulation. Encephalopathy . Multifactorial. CSF HSV, VDRL,Varicella and West Nile negative. Acyclovi r discontinued. History of alcohol abuse. We will continue thiamine. History of colon cancer with brain mass. Repeat MRI shows cortical lesion. Discussed with Bro Segundo. She recommended CT head without contrast for possible surgery next week. Will hol d aspirin. This was also discussed with patient's family. Severe protein calorie malnutrition. Dietitian consulted and will follow recommendations. Deep vein thrombosis prophylaxis. We will stop Lovenox in anticipation for surgery. Plan discussed in detail with patient's son and family with a head shipper all questi ons answered. Disposition: Inpatient Code Status: Full Code Rosie Lindsay MD 06/17/2018 10:31 AM This entry has been created using [employer] Speech Recognition software and [employer] Watch. The entry has been reviewed and there may still exist sound alike word errors. aJazmyne jules MD - 06/17/2018 9:20 AM PDT Progress Notes by Jazmyne Hairston MD at 06/17/18919 Author: Jazmyne Hairston MD Service: Neurology Author Type: Physician Filed: 06/18/18 1105 Date of Service: 06/17/18919 Status: Addendum Sales Consulting Director: Jazmyne Hairston MD (Physician) Related Notes: Original Note by Jazmyne Hairston MD (Physician) filed at 06/18/18 1040 Subjective: Patient seen and examined. Jose Eaton is a 68 y.o. male admitted to the hospital for MSC and seizures. Patient Summary: please refer to H&P and My consult. Current complaints: Resting in his chair, Still confused but following commands. Objective: Vitals: Temp: [97 F (36.1 C)-98.6 F (37 C)] 98.4 F (36.9 C) Heart Rate: [63-105] 105 Resp: [16-20] 19 BP: (128-161)/(72-81) 134/72 Speech: Is normal; fluent and spontaneous. Cognition: The patient is oriented to person and month only. Cranial Nerves: At this time, extraocular movements are intact. The face is symmetric. Voic e is hoarse. Strength: Moving all extremities. CURRENT MEDICATIONS: Scheduled Meds: aspirin 81 mg Oral Daily with breakfast enoxaparin 40 mg Subcutaneous Q24H insulin lispro (human) 0-3 Units Subcutaneous Nightly insulin lispro (human) 0-6 Units Subcutaneous TID AC levETIRAcetam 500 mg Oral BID pravastatin 40 mg Oral Nightly thiamine 100 mg Oral Daily Labs Lab Results Component Value Date WBC 4.71 06/17/2018 HGB 12.5 (L) 06/17/2018 HCT 35.0 (L) 06/17/2018 MCV 100.1 (H) 06/17/2018 PLT 284 06/17/2018 Lab Results Component Value Date CREATININE 0.6 (L) 06/17/2018 BUN 16 06/17/2018 NA 136 06/17/2018 K 3.9 06/17/2018 CL 101 06/17/2018 CO2 26 06/17/2018 Ammonia: <10 LP: 170/107/30 / T HGBA1c: 5.1 CSF: WBC: 1 RBC: 800 >> Total protein: 35 Glucose: 91 CSF Cx: NG X 4 days. RC: - VDRL: NR HSV: -ve VZV: P WNV: -ve Mri Brain With And Without Contrast: Result Date: 06/10/2018 1. Motion degraded exam. 2. Mild diffusion restriction in the left hippocampus and anterome dial left temporal lobe as well as vague diffusion abnormality in the pulvinar of the left t halamus. This is a common distribution of diffusion restriction related to postictal change s. Acute ischemia and early changes of HSV/limbic encephalitis could be considered in the p rajinder clinical setting although felt to be less likely. 3. Punctate focus of diffusion restr iction in the right occipital lobe consistent with acute to subacute infarction. 4. Rounded lesion at the vertex on the left measuring 1.3 x 1.7 cm which appears predominantly extra-ax ial but could focally involve the cortex of the superior left frontal lobe with heterogeneou s internal signal but no convincing evidence of enhancement or significant surrounding vasog enic edema. This is nonspecific and could represent a benign hematoma, cavernous malformati on, neoplasm (including metastatic lesion without enhancement due to internal hemorrhage, pr imary brain cortical neoplasm, and less likely nonenhancing calcified meningioma). No true c entral diffusion restriction or significant surrounding vasogenic edema to suggest abscess. Recommend short interval follow-up MRI without and with contrast. CT could also be helpful to assess for hemorrhage or calcification. 5. No definite enhancing intracranial lesions al though postcontrast images are degraded by artifact. Tiny intraparenchymal mat abscesses ma y not be detected on this exam. 6. Small area of encephalomalacia and gliosis in the left fr ontal lobe which may be related to previous infarction or trauma. Signed by: MD Dieter, Joe Sign Date/Time: 06/10/2018 4:33 PM Brain MRI: 1. Stable, nonenhancing cortical lesion measuring 1.7 x 1.4 cm in the posterior aspect of t he left superior frontal gyrus stable since 06/09/2018. Differential diagnosis includes (foca l cortical dysplasia, neoplasm (including metastatic lesion without enhancement due to inter nal hemorrhage, primary brain cortical neoplasm, and less likely nonenhancing calcified meni ngioma). If notalready done, neurosurgical consultation is recommended as this could certain ly represent a seizure focus. Correlation with EEG findings is suggested. 2. Stable appearance of the area of chronic diffuse gliosis in the anterior left frontal lo be white matter. 3. Moderate diffuse cerebral atrophy likely due to longstanding ethanol abuse. 4. Previously seen areas of restricted diffusion noted in the left temporal lobe and left t halamus on 06/09/2018 and 06/10/2018 have resolved without underlying parenchymal abnormality suggesting these were likely postictal in nature. 5. Previously seen punctate focus of restricted diffusion in the right occipital lobe has r esolved with no underlying signal abnormality seen in that area on the other sequences. 6. Stable 4.6 mm focus of low signal on the T2*GRE sequence located at the medial left ciro eto-occipital junction suggests an old cortical calcification or focus of chronic hemosideri n deposition due to an old ischemic injury. Carotid US: No evidence of high-grade stenosis ultrasound. Echo: 1. Sinus rhythm. 2. A 2-dimensional transthoracic echocardiogram with m-mode, spectral and color flow Dopple r was perfomed. 3. This was a technically difficult study secondary to patient cooperation. Exam terminate d at patient request. 4. Overall left ventricular systolic function is mildly impaired with, an EF between 45 - 5 0 %. 5. The left ventricle cavity size is normal. 6. There is mild concentric left ventricular hypertrophy. 7. The right ventricle is normal in size. 8. The left atrium is moderately dilated. 9. The right atrial size is normal. 10. The aortic valve was not well visualized. 11. There is mild aortic regurgitation. 12. There is no evidence of aortic stenosis. 13. The mitral valve was not well visualized. 14. Mild mitral regurgitation is present. 15. , predominately a posteriorly directed jet. 16. Mild mitral annular calcification present. 17. The tricuspid valve was not well visualized. 18. Trace tricuspid regurgitation present. 19. Pulmonary artery systolic pressure could not be assessed due to the absence of adequate TR jet. 20. The pulmonic valve was not well visualized. 21. There is no pericardial effusion. 22. The IVC could not be visualized at patient request. 23. The aortic root, ascending aorta and aortic arch are normal. 24. No mass visualized 25. No ASD observed. 26. No VSD observed. EKG: A-fib Assessment: 1- Seizures, felt to be related to alcohol withdrawal. However, with abnormal EEG (left tem poral epileptiform discharges). 2- Abnormal brain MRI, chronic and acute multifocal strokes in the setting of paroxysmal A- fib. 3- Brain mass (mets, primary malignancy, meningioma, or cortical dysplasia?), left frontal, in patient with h/o colon cancer. MRI showed probable old small hemorrhage in the left parieto-occipital region in addition t o old left frontal encephalomalacia? With these findings, and with confusion and alcohol abuse / risk of falls and trauma, risks of AC may be more than benefits at this time favio w/o good understanding of benefits and ris ks per patient. However, will try to discuss with his family (Son). A-fib documented since Feb, 2017. Plan: 1. Telemetry bed with appropriate hydration, and seizure, fall and DTs precautuion. Correct electrolytes as needed. 2. Vital signs and neurocheck every 4 hours. 3. For #1, continue Keppra 500 mg bid. No driving X 6 months from any seizure. 4. For #2, statin to keep LDL-C less than 70 and ASA 81 mg daily for now for secondary prop hylaxis. 5. For #3, need to follow with neurosurgery. 6. Gradual control of BP by 10-15% per 24 hours toward < 140/90. However, avoid hypotension . 7. General care including GI and DVT prophylaxis and risk factors modification per primary team. Thank you for allowing us to participate in your patient care. Case an plan were discussed with Dr. Lindsay. Interpretor was utilized due to language / social barrier. Addendum: Appreciate neurosurgery input. Plan is for possible surgery to left FP lesion. Case and plan were disused with Son (per Dr. Lindsay) and with his brother by me. They un derstands benefits and risks of ASA (lower risk of bleeding complication / higher risk of st roke) vs AC (higher risk of complication / lower risk of stroke) in his case. However, at th is time, ASA is on hold due to plan for surgery on left FP lesion. Addendum 06/18/18: Discussed (Dr. Lindsay and myself) the case and plan with patient, son and alli medley professional interpretor. We decided to continue ASA 81 mg daily when possible (on hold fo r now) for secondary prophylaxis as we thought that risks of AC are more than benefits in hi s case a this time. All agree. Will follow neurosurgery recommendations. onversion Transacti on, Provider Unknown - 06/16/2018 6:50 PM PDTFormatting of this note might be different fro m the original. Nurse Progress Note by Nasrin Foley RN at 06/16/181849 Author: Nasrin Foley RN Service: (none) Author Type: Registered Nurse Filed: 06/16/181855 Date of Service: 06/16/181849 Status: Signed Sales Consulting Director: Nasrin Foley RN (Registered Nurse) Pt was very agitated at beginning of shift, repeated attempts at bed exit. Pt was stating t hat he was going to get dressed and go home. Sitter at bedside. Carotid u/s negative, awaiti ng results of MRI. VSS End of shift chart check complete onver alex Transaction, Provider Unknown - 06/16/2018 2:08 PM PDT Case Management by Paula Lubin RN at 06/16/18 1408 Author: Paula Lubin RN Service: (none) Author Type: Registered Nurse Filed: 06/16/18 1438 Date of Service: 06/16/18 1408 Status: Addendum Sales Consulting Director: Paula Lubin RN (Registered Nurse) Related Notes: Original Note by Paula Lubin RN (Registered Nurse) filed at 06/16/18 141 0 D/c plan: Please call ynes Sandoval [phone] or pt's brother, Gustabo, --PT to eval for recommendations, may need snf --sitter in place Charlotte onver alex Transaction, Provider Unknown - 06/16/2018 1:48 PM PDT Case Management by Paula Lubin RN at 06/16/18 0000 Author: Paula Lubin RN Service: (none) Author Type: Registered Nurse Filed: 06/16/18 8195 Date of Service: 06/16/18 0747 Status: Signed Sales Consulting Director: Paula Lubin RN (Registered Nurse) 06/16/18 1300 Discharge Planning Evaluation Admitting Diagnosis seizures; AMS Readmission No Living Arrangements Alone Support Systems Children;Family members Type of Residence Private residence Independent with ADL's Yes Independent with Mobility Yes Home Care Services No Mental Status Oriented Prior functional status indep Resources Financial concerns No Anticipated Disposition Facility Type Home Pt is currently confused. Met with pt's brother, Gustabo Eaton(speaks ghanaian only) re d/c planning. Gustabo states pt resides in [place] alone, but he has a son, Byron Eaton() who also resides in [place], pt's sposue and other children reside in [place]. Gustabo also lives in [place]. Per Gustabo, pt has been indep with all his ADL's, no use of dme, no anticoagulants, no HH services, no HD. Gustabo has been involved in pt's care after all hi s surgeries and thinks going to a snf would be the best. Per previous CM notes, back in 2014 , pt had been accepted to [facility], but ended up going to an LTAC instead. Tc to [place], left [facility] to call back re d/c planning. Patient's PCP is:Kris Hernandez Patient's insurance:medicare/medicaid Coverage concerns: Medication coverage/concerns: Rx Bedside Delivery: Community resources utilized / needed: Assistance in transportation: tbd Identification of any specific education / training: Barriers to Discharge / Alternative housing needed: Anticipated DCP: tbd Charlotte Lubin RN CM Jazmyne Saravia MD - 06/16/2018 12:24 PM PDTFormatting of this note might be different from the o riginal. Progress Notes by Jazmyne Hairston MD at 06/16/181223 Author: Jazmyne Hairston MD Service: Neurology Author Type: Physician Filed: 06/17/18904 Date of Service: 06/16/181223 Status: Addendum Sales Consulting Director: Jazmyne Hairston MD (Physician) Related Notes: Original Note by Jazmyne Hairston MD (Physician) filed at 06/17/18904 Subjective: Patient seen and examined. Jose Eaton is a 68 y.o. male admitted to the hospital for MSC and seizures. Patient Summary: please refer to H&P and My consult. Current complaints: Resting in his chair, family and friend at bed side. Still confused. Objective: Vitals: Temp: [96 F (35.6 C)-98.6 F (37 C)] 97.7 F (36.5 C) Heart Rate: [66-98] 97 Resp: [20-22] 20 BP: (121-159)/(68-82) 151/81 Speech: Is normal; fluent and spontaneous. Cognition: The patient is oriented to person and month only. Cranial Nerves: At this time, extraocular movements are intact. The face is symmetric. Voic e is hoarse. Strength: Moving all extremities. CURRENT MEDICATIONS: Scheduled Meds: aspirin 81 mg Oral Daily with breakfast enoxaparin 40 mg Subcutaneous Q24H insulin lispro (human) 0-3 Units Subcutaneous Nightly insulin lispro (human) 0-6 Units Subcutaneous TID AC levETIRAcetam 500 mg Oral BID pravastatin 40 mg Oral Nightly thiamine 100 mg Oral Daily Labs Lab Results Component Value Date WBC 6.99 06/16/2018 HGB 13.9 06/16/2018 HCT 39.0 06/16/2018 MCV 100.0 06/16/2018 PLT 290 06/16/2018 Lab Results Component Value Date CREATININE 0.7 06/16/2018 BUN 20 06/16/2018 NA 135 06/16/2018 K 4.0 06/16/2018 CL 98 (L) 06/16/2018 CO2 27 06/16/2018 Ammonia: <10 LP: P HGBA1c: P CSF: WBC: 1 RBC: 800 >> Total protein: 35 Glucose: 91 CSF Cx: NG X 4 days. RC: - VDRL: NR HSV: -ve VZV: P WNV: -ve Mri Brain With And Without Contrast: Result Date: 06/10/2018 1. Motion degraded exam. 2. Mild diffusion restriction in the left hippocampus and anterome dial left temporal lobe as well as vague diffusion abnormality in the pulvinar of the left t halamus. This is a common distribution of diffusion restriction related to postictal change s. Acute ischemia and early changes of HSV/limbic encephalitis could be considered in the p rajinder clinical setting although felt to be less likely. 3. Punctate focus of diffusion restr iction in the right occipital lobe consistent with acute to subacute infarction. 4. Rounded lesion at the vertex on the left measuring 1.3 x 1.7 cm which appears predominantly extra-ax ial but could focally involve the cortex of the superior left frontal lobe with heterogeneou s internal signal but no convincing evidence of enhancement or significant surrounding vasog enic edema. This is nonspecific and could represent a benign hematoma, cavernous malformati on, neoplasm (including metastatic lesion without enhancement due to internal hemorrhage, pr imary brain cortical neoplasm, and less likely nonenhancing calcified meningioma). No true c entral diffusion restriction or significant surrounding vasogenic edema to suggest abscess. Recommend short interval follow-up MRI without and with contrast. CT could also be helpful to assess for hemorrhage or calcification. 5. No definite enhancing intracranial lesions al though postcontrast images are degraded by artifact. Tiny intraparenchymal mat abscesses ma y not be detected on this exam. 6. Small area of encephalomalacia and gliosis in the left fr ontal lobe which may be related to previous infarction or trauma. Signed by: MD Dieter, Joe Sign Date/Time: 06/10/2018 4:33 PM Brain MRI: P EKG: A-fib Assessment: 1- Seizures, felt to be related to alcohol withdrawal. However, with abnormal EEG (left tem poral epileptiform discharges). 2- Abnormal brain MRI, chronic and acute multifocal strokes in the setting of paroxysmal A- fib. 3- Brain mass (hematoma, abscess, mets, primary malignancy?), left frontal, in patient with h/o colon cancer. 4- Anemia, and hyponatremia. Plan: 1. Continue telemetry bed with appropriate hydration, seizure, fall and DTs precautuion. Co rrect electrolytes as needed. 2. Vital signs and neurocheck every 4 hours. 3. Temperature every 4 hours and treat any temperature greater than 100 (37.8). 4. For #1, seizure with abnormal brain MRI and EEG, continue Keppra 500 mg bid. No driving X 6 months from any seizure. 5. For #2, check lipid panel, HGBA1c, echo, and carotid US. Consider statin to keep LDL-C l ess than 70 and he may benefit from AC more than ASA ([id number] VASC: 3 and CHADS2: 2). Isabella r, unable to discuss with him the benefits and risks of AC (confused) in the setting of alco holism and risk of falls. Discussed with primary team and we decided to start ASA 81 mg mohsen y for now for secondary prophylaxis but will try to find out his POA. Brother agreed to do w hatever we think it is good fr him but no POA. 6. For #3, agree with repeating brain MRI as per neurosurgery recommendation. 7. Gradual control of BP by 10-15% per 24 hours toward < 140/90. However, avoid hypotension . 8. General care including GI and DVT prophylaxis and risk factors modification per primary team. Thank you for allowing us to participate in your patient care. Addendum: Brain MRI: 1. Stable, nonenhancing cortical lesion measuring 1.7 x 1.4 cm in the posterior aspect of t he left superior frontal gyrus stable since 06/09/2018. Differential diagnosis includes (foca l cortical dysplasia, neoplasm (including metastatic lesion without enhancement due to inter nal hemorrhage, primary brain cortical neoplasm, and less likely nonenhancing calcified meni ngioma). If notalready done, neurosurgical consultation is recommended as this could certain ly represent a seizure focus. Correlation with EEG findings is suggested. 2. Stable appearance of the area of chronic diffuse gliosis in the anterior left frontal lo be white matter. 3. Moderate diffuse cerebral atrophy likely due to longstanding ethanol abuse. 4. Previously seen areas of restricted diffusion noted in the left temporal lobe and left t halamus on 06/09/2018 and 06/10/2018 have resolved without underlying parenchymal abnormality suggesting these were likely postictal in nature. 5. Previously seen punctate focus of restricted diffusion in the right occipital lobe has r esolved with no underlying signal abnormality seen in that area on the other sequences. 6. Stable 4.6 mm focus of low signal on the T2*GRE sequence located at the medial left ciro eto-occipital junction suggests an old cortical calcification or focus of chronic hemosideri n deposition due to an old ischemic injury. Interpretor was utilized due to language / social barrier. Rosie Weeks MD - 06/16/2018 10:21 AM PDT Progress Notes by Rosie Lindsay MD at 06/16/18 1021 Author: Rosie Lindsay MD Service: Hospitalist Author Type: Physician Filed: 06/16/18 144 Date of Service: 06/16/18 1021 Status: Signed Sales Consulting Director: Rosie Lindsay MD (Physician) [facility] Service: Hospitalist Progress Note Hospital Day: LOS: 7 days SUBJECTIVE Patient Summary: 68-year-old Malagasy-speaking gentleman with a history of rectal canc er , hyperlipidemia, alcohol abuse admitted with seizure and possibly encephalitis. Neurolog y and ID consulted. Events Overnight: Patient is oriented to self. He complains of pain in his back and k nee pain. He denies any other complaints. Scheduled Medications acyclovir 10 mg/kg ([place]) Intravenous Q8H aspirin 81 mg Oral Daily with breakfast enoxaparin 40 mg Subcutaneous Q24H insulin lispro (human) 0-3 Units Subcutaneous Nightly insulin lispro (human) 0-6 Units Subcutaneous TID AC levETIRAcetam 500 mg Intravenous Q12H pravastatin 40 mg Oral Nightly thiamine 100 mg Oral Daily Continuous Infusions PRN Medications acetaminophen OR acetaminophen, magnesium sulfate OR magnesium sulfate OR magne sium sulfate OR magnesium sulfate, ondansetron OR ondansetron, phosphorus OR sod ium phosphate IVPB 15 mmol OR sodium phosphate IVPB 30 mmol, potassium chloride OR p otassium chloride OR potassium chloride OBJECTIVE Vital Signs: BP 146/82 (BP Location: Left upper arm) | Pulse 66 | Temp 97.6 F (36.4 C) (Axillary) | Resp 22 | Ht 1.626 m (5' 4") | Wt 70.6 kg (155 lb 10.3 oz) | SpO2 99% | BMI 26.72 kg/ m Patient Vitals for the past 24 hrs: BP Temp Temp src Pulse Resp SpO2 06/16/18 0740 146/82 97.6 F (36.4 C) Axillary 66 22 99 % 06/16/18 0254 159/75 98.1 F (36.7 C) Oral 89 22 99 % 06/15/18 2256 143/74 98.5 F (36.9 C) Oral 98 20 100 % 06/15/18 1937 121/68 98.6 F (37 C) Oral 95 20 99 % 06/15/18 1602 123/77 96 F (35.6 C) Axillary 88 20 99 % 06/15/18 1151 103/62 96.8 F (36 C) Oral 84 16 98 % Intake/Output Summary (Last 24 hours) at 06/16/18 1059 Last data filed at 06/16/18 0800 Gross per 24 hour Intake 181 ml Output 50 ml Net 131 ml Physical Exam: Constitutional: Alert and oriented to self. HEENT: Neck supple, no JVD, non icteric sclera. Cardiovascular: Normal rate, regular rhythm, normal heart sounds with S1 and S2, Exam re veals no gallop and no friction rub. No murmur heard. No S3, No S4 Pulmonary/Chest: Effort normal and breath sounds are decreased bilaterally. Abdominal: Soft. Bowel sounds are normal. exhibits no distension and no mass. There is no t enderness. There is no rebound and no guarding. Extremeties/Musculoskeletal: exhibits no edema. Neurological: Alert and oriented 1. Skin: Skin is warm and dry. Psychiatric: Unable to evaluate. DATA Recent Labs Lab 06/16/18 0506 06/15/18 0417 06/14/18 0506 WBC 6.99 6.04 4.45 RBC 3.90* 3.66* 3.43* HGB 13.9 12.9* 12.3* HCT 39.0 37.1* 34.7* MCV 100.0 101.4* 101.4* MCH 35.7* 35.2* 36.0* MCHC 35.7* 34.7 35.5 RDW 46.4 47.3 48.6 PLT 290 247 194 MPV 9.1 9.4 9.2 DIFFTYPE AUTOMATED MANUAL AUTOMATED Recent Labs Lab 06/16/18 0506 06/15/18 0417 06/14/18 1603 06/14/18 0506 NA 135 134* -- 137 K 4.0 4.6 4.0 3.7 CL 98* 99 -- 103 CO2 27 27 -- 25 BUN 20 15 -- 18 CREATININE 0.7 0.7 -- 0.5* GLUF 94 138* -- 111* No results for input(s): CKTOTAL, TROPONINI, TROPONINT, CKMBINDEX in the last 168 hours. Recent Labs Lab 06/16/18 0506 06/15/18 0417 06/14/18 0506 PHOS 4.1 4.4 3.1 Recent Labs Lab 06/16/18 0506 06/15/18 0830 06/15/18 0417 MG 1.8 2.6* 2.0 Invalid input(s): ABG No results for input(s): CALCIUM in the last 168 hours. Recent Labs Lab 06/12/18 1319 INR 1.0 Mri Brain With And Without Contrast Result Date: 06/10/2018 1. Motion degraded exam. 2. Mild diffusion restriction in the left hippocampus and anterome dial left temporal lobe as well as vague diffusion abnormality in the pulvinar of the left t halamus. This is a common distribution of diffusion restriction related to postictal change s. Acute ischemia and early changes of HSV/limbic encephalitis could be considered in the [facility] clinical setting although felt to be less likely. 3. Punctate focus of diffusion restr iction in the right occipital lobe consistent with acute to subacute infarction. 4. Rounded lesion at the vertex on the left measuring 1.3 x 1.7 cm which appears predominantly extra-ax ial but could focally involve the cortex of the superior left frontal lobe with heterogeneou s internal signal but no convincing evidence of enhancement or significant surrounding vasog enic edema. This is nonspecific and could represent a benign hematoma, cavernous malformati on, neoplasm (including metastatic lesion without enhancement due to internal hemorrhage, pr imary brain cortical neoplasm, and less likely nonenhancing calcified meningioma). No true c entral diffusion restriction or significant surrounding vasogenic edema to suggest abscess. Recommend short interval follow-up MRI without and with contrast. CT could also be helpful to assess for hemorrhage or calcification. 5. No definite enhancing intracranial lesions al though postcontrast images are degraded by artifact. Tiny intraparenchymal mat abscesses ma y not be detected on this exam. 6. Small area of encephalomalacia and gliosis in the left fr ontal lobe which may be related to previous infarction or trauma. Signed by: MD Dieter, Joe Sign Date/Time: 06/10/2018 4:33 PM X-ray Chest 1 View Result Date: 06/11/2018 1. ET tube terminates 3 cm from the kavitha. 2. NG tube tip overlies the stomach. 3. Trace right pleural effusion. Signed by: Marisela Fields Sign Date/Time: 06/11/2018 3:24 PM Xr Chest 1 View Result Date: 06/09/2018 ETT 4.1 cm above kavitha. No pneumothorax or focal consolidation. Trace right pleural effus ion. Signed by: Kris Roy Sign Date/Time: 06/09/2018 10:59 PM PROBLEM LIST Principal Problem: Seizures (HCC) Active Problems: Hyperlipidemia Paroxysmal atrial fibrillation (HCC) Protein-calorie malnutrition, severe Physical deconditioning Chronic diarrhea Encephalopathy Malignant neoplasm of colon (HCC) ETOH abuse Mass of brain Encephalitis ASSESSMENT & PLAN Seizure disorder. Possibly alcohol withdrawal. Patient had abnormal EEG. Will continue Kepp ra. Neurology consulted. Will check Keppra level in one week. Multifocal CVA. Patient has paroxysmal atrial fibrillation. RICH Vasc score is 3. Patient i s high risk for anticoagulation. Will start patient on aspirin and pravastatin. Will check e cho and carotid Doppler. Diabetes. Blood sugars are controlled on sliding scale insulin. Will check A1c. Paroxysmal atrial fibrillation. Patient is high risk for anticoagulation. Rich score is 3. We will start patient on aspirin. Will check TSH. Will check echocardiogram. Will check lipi d profile. Will discuss with son tomorrow. Encephalopathy . Multifactorial. Etiology unclear. Will monitor. Ammonia level is low. Will stop acyclovir. West Nile and HSV are negative. CSF HSV, VDRL and West Nile negative. Discu ssed with Dr. Garzon and acyclovir discontinued. History of alcohol abuse. We will continue thiamine. History of colon cancer with brain mass. We will repeat MRI with and without contrast. Neur osurgery consulted. Severe protein calorie malnutrition. Dietitian consulted and will follow recommendations. Deep vein thrombosis prophylaxis. We will continue Lovenox. Disposition: Inpatient Code Status: Full Code Rosie Lindsay MD 06/16/2018 10:59 AM This entry has been created using [employer] Speech Recognition software and [employer]. The entry has been reviewed and there may still exist sound alike word errors. onversion Trans action, Provider Unknown - 06/15/2018 8:08 PM PDT Nurse Progress Note by Miracle Montes RN at 06/15/182007 Author: Miracle Montes RN Service: (none) Author Type: Registered Nurse Filed: 06/15/182008 Date of Service: 06/15/182007 Status: Signed Sales Consulting Director: Miracle Montes RN (Registered Nurse) Pt vitals stable. No acute changes in neuro status. Pt demonstrates confusion and is A/O to self. Needs and concerns addressed with family members. End of shift audit complete. Miracle Montes RN alvor son, Bjorn Joiner MD - 06/15/2018 1:55 PM PDT Progress Notes by Bjorn Cardenas MD-R3 at 06/15/18 1357 Author: Bjorn Cardenas MD-R3 Service: Community Planning Technician Author Type: Resident-Y3 Filed: 06/15/18 1356 Date of Service: 06/15/18 135 Status: Attested Sales Consulting Director: Bjorn Cardenas MD-R3 (Resident-Y3) Cosigner: Edy La MD at 06/15 9754 Attestation signed by Edy La MD at 06/15/18 1644 Pt seen and examined. Discussed the care plan with the resident in detail. Pt awake alert oriented X 2 following commands in bed. Neuro intact. Lungs clear. Heart reg ular. Abdomen soft with trace edema peripherally. Pt continues to improve since extubation yesterday. Will continue to follow ID recommendati ons. Pt will need a repeat MRI study at some point as per NSx recommendations. Currently agree with transfer to acute care. Edy La 4:44 PM 06/15/18 Please bill 35 min of high complexity care. . [facility] Service: Community Planning Technician Progress Note Jose Eaton 68 y.o. Hospital Day: LOS: 6 days Post-Op Day: * No surgery found * Consulting Physicians Treatment Team: Consulting Physician: Jean-Pierre Du II, MD Consulting Physician: Kita Garzon MD Consulting Physician: Jazmyne Hairston MD Admitting Provider: Eyd La MD SUBJECTIVE Patient Summary:From Dr. Arreaga's progress note: "68 y.o.ghanaian speaking M with PMHof rectalcancers/p LAR andileostomy reversal in 2015, hyperlipidemia, ETOH a buse (2 pints of whiskey daily), atrial fib, and pancreatitis,whopresents in transfer fr [facility] with seizures and found to have a left brain mass" ICU Timeline: 06/11: EEG with no seizure. MS improved. Patient extubated, developed stridor and reintub ated. 06/12: No cuff leak. LP performed 06/13: No cuff leak. Remains intubated, off propofol and fentanyl, following commands 06/14: Extubated Events Overnight:patient was extubated overnight, and is doing well. Has not de monstrated any s/s of respiratory distress. SCHEDULED MEDICATIONS acyclovir 10 mg/kg ([place]) Intravenous Q8H enoxaparin 40 mg Subcutaneous Q24H insulin lispro (human) 0-3 Units Subcutaneous Nightly insulin lispro (human) 0-6 Units Subcutaneous TID AC levETIRAcetam 500 mg Intravenous Q12H pravastatin 40 mg Oral Nightly CONTINUOUS INFUSIONS OBJECTIVE VITAL SIGNS Temp: [96.8 F (36 C)-99.4 F (37.4 C)] 96.8 F (36 C) Heart Rate: [50-89] 84 Resp: [15-32] 16 BP: (94-155)/(55-81) 103/62 FiO2 : [21 %] 21 % Intake/Output Summary (Last 24 hours) at 06/15/18 1358 Last data filed at 06/15/18 0654 Gross per 24 hour Intake 1669.9 ml Output 0 ml Net 1669.9 ml EXAM GEN:well developed, appears stated age, NAD, extubated, awake and alert NEURO:PERRLA, no facial asymmetry, follows commands given in ghanaian, waving to us while we are rounding HEENT:sclerae clear, nonicteric, oral mmm, pink, no exudates NECK: supple, trachea midline CV:RRR, S1/S2, no murmur, rub or gallop, peripheral pulses palpable, cap refill brisk LUNGS: clear b/l, no wheezing, rales or rhonchi, symmetric chest expansion, ABD:soft, nondistended, nontender to palpation, no masses EXTR:no edema, clubbing or cyanosis, hyperpigmentation to BLE (chronic) SKIN:warm, dry, no rash or mottling; no e/o skin breakdown over the occiput, scapulae, el bows, sacrum or heels LINES/TUBES:PIV, port right chest DATA Recent Labs Lab 06/15/18 0417 06/14/18 0506 06/13/18 0535 06/12/18 0404 06/11/18 0526 06/10/18 0405 WBC 6.04 4.45 7.63 6.23 5.15 7.22 RBC 3.66* 3.43* 3.42* 3.52* 3.35* 3.96* HGB 12.9* 12.3* 12.3* 12.5* 12.0* 14.1 HCT 37.1* 34.7* 34.7* 35.5* 34.2* 39.8 MCV 101.4* 101.4* 101.4* 100.7* 102.0* 100.6* MCH 35.2* 36.0* 35.9* 35.4* 35.9* 35.6* MCHC 34.7 35.5 35.4 35.2 35.2 35.4 RDW 47.3 48.6 48.6 48.6 48.6 48.6 PLT 247 194 214 196 180 224 MPV 9.4 9.2 9.0 8.7 8.5 8.7 BANDSABS 0.18 -- -- 0.19 -- -- NEUTROABS -- 3.34 -- -- 4.16 5.50 LYMPHSABS -- 0.38* -- -- 0.43* 1.04 MONOSABS -- 0.73 -- -- 0.53 0.63 BASOSABS -- 0.01 -- -- 0.02 0.03 EOSABS -- 0.00 -- -- 0.01 0.02 MORPH RBC AND PLT MORPHOLOGY APPEAR NORMAL -- RBC AND PLT MORPHOLOGY APPEAR NORMAL RBC AN D PLT MORPHOLOGY APPEAR NORMAL -- -- Recent Labs Lab 06/15/18 0830 06/15/18 0417 06/14/18 1603 06/14/18 0506 06/13/18 0535 NA -- 134* -- 137 136 K -- 4.6 4.0 3.7 4.2 CL -- 99 -- 103 101 CO2 -- 27 -- 25 25 ANIONGAP -- 13 -- 13 14 GLUF -- 138* -- 111* 169* BUN -- 15 -- 18 18 CREATININE -- 0.7 -- 0.5* 0.6* BCR -- 21 -- 36 30 CA -- 8.7 -- 8.0* 8.3* EGFR -- >60 -- >60 >60 PHOS -- 4.4 -- 3.1 3.5 MG 2.6* 2.0 1.9 1.6* 2.2 Recent Labs Lab 06/12/18 1319 INR 1.0 IMAGING Mri Brain With And Without Contrast Result Date: 06/10/2018 1. Motion degraded exam. 2. Mild diffusion restriction in the left hippocampus and anterome dial left temporal lobe as well as vague diffusion abnormality in the pulvinar of the left t halamus. This is a common distribution of diffusion restriction related to postictal change s. Acute ischemia and early changes of HSV/limbic encephalitis could be considered in the [facility] clinical setting although felt to be less likely. 3. Punctate focus of diffusion restr iction in the right occipital lobe consistent with acute to subacute infarction. 4. Rounded lesion at the vertex on the left measuring 1.3 x 1.7 cm which appears predominantly extra-ax ial but could focally involve the cortex of the superior left frontal lobe with heterogeneou s internal signal but no convincing evidence of enhancement or significant surrounding vasog enic edema. This is nonspecific and could represent a benign hematoma, cavernous malformati on, neoplasm (including metastatic lesion without enhancement due to internal hemorrhage, pr imary brain cortical neoplasm, and less likely nonenhancing calcified meningioma). No true c entral diffusion restriction or significant surrounding vasogenic edema to suggest abscess. Recommend short interval follow-up MRI without and with contrast. CT could also be helpful to assess for hemorrhage or calcification. 5. No definite enhancing intracranial lesions al though postcontrast images are degraded by artifact. Tiny intraparenchymal mat abscesses ma y not be detected on this exam. 6. Small area of encephalomalacia and gliosis in the left fr ontal lobe which may be related to previous infarction or trauma. Signed by: MD Dieter, Joe Sign Date/Time: 06/10/2018 4:33 PM X-ray Chest 1 View Result Date: 06/11/2018 1. ET tube terminates 3 cm from the kavitha. 2. NG tube tip overlies the stomach. 3. Trace right pleural effusion. Signed by: Marisela Fields Sign Date/Time: 06/11/2018 3:24 PM Xr Chest 1 View Result Date: 06/09/2018 ETT 4.1 cm above kavitha. No pneumothorax or focal consolidation. Trace right pleural effus ion. Signed by: Kris Roy Sign Date/Time: 06/09/2018 10:59 PM PROBLEM LIST Principal Problem: Seizures (HCC) Active Problems: Hyperlipidemia Atrial fibrillation with RVR Protein-calorie malnutrition, severe Physical deconditioning Chronic diarrhea Altered mental status Malignant neoplasm of colon (HCC) ETOH abuse Mass of brain Encephalitis Resolved Problems: * No resolved hospital problems. * ASSESSMENT & PLAN NEURO: Seizures: likely due to ETOH withdrawal. No further seizure activity. Cont CIWA monitori ng Keppra Ativan PRN seizures Thiamine/folate Encephalopathy vs. ICU delirium: MRI demonstrating possible HSV, mental status improved, patient is awake and following commands. 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 Superior left frontal lobe brain Mass?: Have consulted neurology, who will plan to see t he patient today. Neurosurgery consulted; Recommend repeat MRI in one week, possible biopsy as outpatient. CV: Episode of afib with RVR: Now in sinus, CHADS-VASc score 1 PULM: Acute hypoxemic respiratory failure secondary to stridor: Now extubated and doing well. GI/NUTRITION: Patient diagnosed with: Protein-Calorie Malnutrition Type: (!) Severe, and I agree with the following nutritional recommendations: Recommendations Recommended energy needs: Continue TF Isosource 1.5 at goal rate of 55 ml/hr (x 20 hours) w ith Beneprotein 1 pkt BID in wtare flushes. Continue to monitor. Recommended vitamin needs: Continue MV with minerals FA/Fe r/t hx of ETOH abuse. RENAL/LYTES: Renally dose medications, avoid nephrotoxins. Monitor electrolytes and replace per protocol Follow I/O ID: No acute issues HEME: Macrocytic anemia: Likely due to EtOH abuse. Replace thiamine and folate. ENDO: No acute issues MUSC/SKIN: No acute issues PROPHYLAXIS: Stress ulcer prophylaxis: Famotidine DVT prophylaxis: Lovenox, scd VAP bundle: chlorhexidine oral care, HOB >30 degrees. Disposition:Transfer to floor Code Status:Full Code Bjorn Cardenas MD-R3 06/15/2018 onversion Tr ansaction, Provider Unknown - 06/15/2018 10:30 AM PDTFormatting of this note might be differ ent from the original. Nurse Progress Note by Edel Thornton RN at 06/15/18 1030 Author: Edel Thornton RN Service: (none) Author Type: Registered Nurse Filed: 06/15/18 1057 Date of Service: 06/15/18 1030 Status: Signed Sales Consulting Director: Edel Thornton RN (Registered Nurse) Patient report given to TIMOTEO Figueroa (4RP). Pt was informed of the move via conference interpreter. Chart, meds, and belongings with the patient to 4RP via wheelchair. Kita Posey MD - 06/15/2018 9:58 AM PDTFormatting of this note might be differen t from the original. Progress Notes by Kita Garzon MD at 06/15/18 0958 Author: Kita Garzon MD Service: Infectious Disease Author Type: Physici an Filed: 06/15/18 1001 Date of Service: 06/15/18 0958 Status: Signed Sales Consulting Director: Kita Garzon MD (Physician) [facility] Service: Infectious Diseases Progress Note Hospital Day: LOS: 6 days Post-Op Day: * No surgery found * CC: follow up on infection and antibiotic therapy SUBJECTIVE/OVERNIGHT EVENTS The patient remains on treatment with antibiotics. Extubated yesterday. Remains confused, p er nurse No acute events over last 24 hours are reported. REVIEW OF SYSTEMS: Patient denies any pain MEDICATIONS: Reviewed PHYSICAL EXAM Vital Signs: BP 126/70 (BP Location: Right forearm) | Pulse 55 | Temp 98.2 F (36.8 C) (Oral) | Re sp 22 | Ht 1.626 m (5' 4") | Wt 70.6 kg (155 lb 10.3 oz) | SpO2 99% | BMI 26.72 kg/m Focused exam shows: General exam: No distress, cooperative with exam. HEENT: sclera non-icteric, no visible oral thrush; poor dentition Cardiovascular: regular rate and rhythm Lungs: no tachypnea, clear breath sounds. Mildly decreased at bases Abdomen: no distension, bowel sounds present Extremities/MSK: No edema, no joint effusions Skin: No lesions, normal turgor Neurologic: confused; thinks he is in "[place]" LABS: MICRO: CSF cultures NGTD; HSV PCR pending All labs were reviewed. CBC: Lab Results Component Value Date WBC 6.04 06/15/2018 RBC 3.66 (L) 06/15/2018 HGB 12.9 (L) 06/15/2018 HCT 37.1 (L) 06/15/2018 MCV 101.4 (H) 06/15/2018 MCH 35.2 (H) 06/15/2018 MCHC 34.7 06/15/2018 RDW 47.3 06/15/2018 PLT 247 06/15/2018 MPV 9.4 06/15/2018 DIFFTYPE MANUAL 06/15/2018 CMP: Lab Results Component Value Date NA 134 (L) 06/15/2018 K 4.6 06/15/2018 CL 99 06/15/2018 CO2 27 06/15/2018 ANIONGAP 13 06/15/2018 GLUF 138 (H) 06/15/2018 BUN 15 06/15/2018 CREATININE 0.7 06/15/2018 BCR 21 06/15/2018 CA 8.7 06/15/2018 PROT 7.3 06/26/2015 ALB 2.8 (L) 07/12/2015 GLOB 3.6 06/26/2015 BILITOT 0.6 06/26/2015 ALP 116 (H) 06/26/2015 AST 15 06/26/2015 ALT 14 06/26/2015 EGFR >60 06/15/2018 Principal Problem: Seizures (HCC) Active Problems: Hyperlipidemia Atrial fibrillation with RVR Protein-calorie malnutrition, severe Physical deconditioning Chronic diarrhea Altered mental status Malignant neoplasm of colon (HCC) ETOH abuse Mass of brain Encephalitis Resolved Problems: * No resolved hospital problems. 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 Abscess es cannot be entirely ruled out, although patient otherwise afebrile. ---Acute respiratory failure, resolved; now extubated ---Alcohol dependence, may also be contributing to seizures Recommendations: Cont acyclovir until HSV PCR back Neg HIV and Hep C Dictation software, [employer], used which may contain error for similar sounding words even af ter review. Personal communication requested for any clarification. Portions of this chart may have been copied from previous notes for continuity of care purp ose Kita Garzon MD Infectious Diseases 06/15/2018 onversi on Transaction, Provider Unknown - 06/14/2018 6:47 PM PDTFormatting of this note might be d ifferent from the original. Nurse Progress Note by Carole Baker RN at 06/14/181846 Author: Carole Baker RN Service: (none) Author Type: Registered Nurse Filed: 06/14/181847 Date of Service: 06/14/181846 Status: Signed Sales Consulting Director: Carole Baker RN (Registered Nurse) End of shift chart audit complete. Carole Baker RN onver alex Transaction, Provider Unknown - 06/14/2018 4:29 PM PDT Progress Notes by Jesus Spaulding, TYSON at 06/14/181628 Author: Jesus Spaulding RRT Service: (none) Author Type: Registered Respiratory Therapis t Filed: 06/14/18 1634 Date of Service: 06/14/181628 Status: Signed Sales Consulting Director: Jesus Spaulding RRT (Registered Respiratory Therapist) Patient breathing Spontaneously on MMV throughout day. RR 20-22, VT 380-420. Patient seen b y Dr. La. Patient extubated to room air at 1500. At 1515 I was called to the room by RN for Racemic Epi. Patient audible stridor from door way. Small improvement seen with firs t dose of Recemic Epi given at 1515. Second dose of Racemic Epi given at 1540. Patients acce stuart muscle use improving, stridor improving. Whitney Esquivel ARNP - 06/14/2018 8:05 AM PDTFormatting of this note might be different from cameron peng original. Progress Notes by JONATHON Rosado at 06/14/18 0805 Author: JONATHON Rosado Service: Community Planning Technician Author Type: Advanced Registered Nu rse Practitioner Filed: 06/14/1811 Date of Service: 06/14/18804 Status: Signed Sales Consulting Director: JONATHON Rosado (Advanced Registered Nurse Practitioner) [facility] Service: Community Planning Technician Progress Note Jose Eaton 68 y.o. Hospital Day: LOS: 5 days Post-Op Day: * No surgery found * Consulting Physicians Treatment Team: Consulting Physician: Jean-Pierre Du II, MD Admitting Provider: Edy La MD SUBJECTIVE Patient Summary:From Dr. Arreaga's progress note: "68 y.o.ghanaian speaking M with PMHof rectalcancers/p LAR andileostomy reversal in 2015, hyperlipidemia, ETOH a buse (2 pints of whiskey daily), atrial fib, and pancreatitis,whopresents in transfer fr [facility] with seizures and found to have a left brain mass" ICU Timeline: 06/11: EEG with no seizure. MS improved. Patient extubated, developed stridor and reintub ated. 06/12: No cuff leak. LP performed 06/13: No cuff leak. Remains intubated, off propofol and fentanyl, following commands Events Overnight: increased secretions from ETT. SCHEDULED MEDICATIONS chlorhexidine gluconate 15 mL Mouth/Throat Q12H enoxaparin 40 mg Subcutaneous Q24H famotidine 20 mg Intravenous BID insulin lispro (human) 0-10 Units Subcutaneous 4 times per day levETIRAcetam 500 mg Intravenous Q12H nystatin 5 mL Oral 4x Daily sodium bicarbonate buffer 5 mL Infiltration Once CONTINUOUS INFUSIONS dexmedetomidine in NS 0.8 mcg/kg/hr (06/14/18 0310) dextrose OBJECTIVE VITAL SIGNS Temp: [98.5 F (36.9 C)-99.4 F (37.4 C)] 99.4 F (37.4 C) Heart Rate: [55-75] 68 Resp: [17-29] 28 BP: (115-157)/(64-89) 115/65 FiO2 : [21 %] 21 % Intake/Output Summary (Last 24 hours) at 06/14/18 0805 Last data filed at 06/14/18 0635 Gross per 24 hour Intake 2539.75 ml Output 0 ml Net 2539.75 ml EXAM GEN:well developed, appears stated age, NAD NEURO:PERRLA, no facial asymmetry, follows commands given in ghanaian, wiggling toes HEENT:sclerae clear, nonicteric, oral mmm, pink, no exudates NECK: supple, trachea midline CV:RRR, S1/S2, no murmur, rub or gallop, peripheral pulses palpable, cap refill brisk LUNGS: clear b/l, no wheezing, rales or rhonchi, symmetric chest expansion, even/unlabored respirations on MV ABD:soft, nondistended, nontender to palpation, no masses EXTR:no edema, clubbing or cyanosis, hyperpigmentation to BLE (chronic) SKIN:warm, dry, no rash or mottling; no e/o skin breakdown over the occiput, scapulae, el bows, sacrum or heels LINES/TUBES:ETT, OGT, PIV, port right chest DATA Recent Labs Lab 06/14/18 0506 06/13/18 0535 06/12/18 0404 06/11/18 0526 06/10/18 0405 WBC 4.45 7.63 6.23 5.15 7.22 RBC 3.43* 3.42* 3.52* 3.35* 3.96* HGB 12.3* 12.3* 12.5* 12.0* 14.1 HCT 34.7* 34.7* 35.5* 34.2* 39.8 MCV 101.4* 101.4* 100.7* 102.0* 100.6* MCH 36.0* 35.9* 35.4* 35.9* 35.6* MCHC 35.5 35.4 35.2 35.2 35.4 RDW 48.6 48.6 48.6 48.6 48.6 PLT 194 214 196 180 224 MPV 9.2 9.0 8.7 8.5 8.7 BANDSABS -- -- 0.19 -- -- NEUTROABS 3.34 -- -- 4.16 5.50 LYMPHSABS 0.38* -- -- 0.43* 1.04 MONOSABS 0.73 -- -- 0.53 0.63 BASOSABS 0.01 -- -- 0.02 0.03 EOSABS 0.00 -- -- 0.01 0.02 MORPH -- RBC AND PLT MORPHOLOGY APPEAR NORMAL RBC AND PLT MORPHOLOGY APPEAR NORMAL -- -- Recent Labs Lab 06/14/18 0506 06/13/18 0535 06/12/18 0404 NA 137 136 134* K 3.7 4.2 4.1 CL 103 101 101 CO2 25 25 25 ANIONGAP 13 14 12 GLUF 111* 169* 208* BUN 18 18 11 CREATININE 0.5* 0.6* 0.6* BCR 36 30 18 CA 8.0* 8.3* 8.3* EGFR >60 >60 >60 PHOS 3.1 3.5 3.0 MG 1.6* 2.2 1.8 Recent Labs Lab 06/12/18 1319 INR 1.0 IMAGING Mri Brain With And Without Contrast Result Date: 06/10/2018 1. Motion degraded exam. 2. Mild diffusion restriction in the left hippocampus and anterome dial left temporal lobe as well as vague diffusion abnormality in the pulvinar of the left t halamus. This is a common distribution of diffusion restriction related to postictal change s. Acute ischemia and early changes of HSV/limbic encephalitis could be considered in the [facility] [place] clinical setting although felt to be less likely. 3. Punctate focus of diffusion restr iction in the right occipital lobe consistent with acute to subacute infarction. 4. Rounded lesion at the vertex on the left measuring 1.3 x 1.7 cm which appears predominantly extra-ax ial but could focally involve the cortex of the superior left frontal lobe with heterogeneou s internal signal but no convincing evidence of enhancement or significant surrounding vasog enic edema. This is nonspecific and could represent a benign hematoma, cavernous malformati on, neoplasm (including metastatic lesion without enhancement due to internal hemorrhage, pr imary brain cortical neoplasm, and less likely nonenhancing calcified meningioma). No true c entral diffusion restriction or significant surrounding vasogenic edema to suggest abscess. Recommend short interval follow-up MRI without and with contrast. CT could also be helpful to assess for hemorrhage or calcification. 5. No definite enhancing intracranial lesions al though postcontrast images are degraded by artifact. Tiny intraparenchymal mat abscesses ma y not be detected on this exam. 6. Small area of encephalomalacia and gliosis in the left fr ontal lobe which may be related to previous infarction or trauma. Signed by: MD Dieter, Joe Sign Date/Time: 06/10/2018 4:33 PM X-ray Chest 1 View Result Date: 06/11/2018 1. ET tube terminates 3 cm from the kavitha. 2. NG tube tip overlies the stomach. 3. Trace right pleural effusion. Signed by: Marisela Fields Sign Date/Time: 06/11/2018 3:24 PM Xr Chest 1 View Result Date: 06/09/2018 ETT 4.1 cm above kavitha. No pneumothorax or focal consolidation. Trace right pleural effus ion. Signed by: Kris Roy Sign Date/Time: 06/09/2018 10:59 PM PROBLEM LIST Principal Problem: Seizures (HCC) Active Problems: Hyperlipidemia Atrial fibrillation with RVR Protein-calorie malnutrition, severe Physical deconditioning Chronic diarrhea Altered mental status Malignant neoplasm of colon (HCC) ETOH abuse Mass of brain Resolved Problems: * No resolved hospital problems. * ASSESSMENT & PLAN NEURO: Seizures: likely due to ETOH withdrawal. No further seizure activity. Cont CIWA monitori ng Keppra Ativan PRN seizures Thiamine/folate Encephalopathy vs. 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 LP with high RBC in 3rd tube, HSV pending. Cont supportive measures. 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 Will need neurology consult after extubation. CV: Episode of afib with RVR: Now in sinus, CHADS-VASc score 1 PULM: Acute hypoxemic respiratory failure secondary to stridor: Patient was extubated and had to be reintubated shortly after due to stridor. No cuff leak noted. Maintain lung protective strategy 6-8 cc/kg IBW, pPlat<30 Received 6 doses of decadron, SBT today after cuff leak. GI/NUTRITION: Patient diagnosed with: Protein-Calorie Malnutrition Type: (!) Severe, and I agree with the following nutritional recommendations: Recommendations Recommended energy needs: Continue TF Isosource 1.5 at goal rate of 55 ml/hr (x 20 hours) w ith Beneprotein 1 pkt BID in wtare flushes. Continue to monitor. Recommended vitamin needs: Continue MV with minerals FA/Fe r/t hx of ETOH abuse. RENAL/LYTES: Renally dose medications, avoid nephrotoxins. Monitor electrolytes and replace per protocol Follow I/O ID: No acute issues HEME: Follow CBC ENDO: No acute issues MUSC/SKIN: No acute issues PROPHYLAXIS: Stress ulcer prophylaxis: Famotidine DVT prophylaxis: Lovenox, scd VAP bundle: chlorhexidine oral care, HOB >30 degrees. Disposition:ICU as above, SBT after cuff leak test, will consult neurology after extuba alfredo. Code Status:Full Code *Please bill 45 minutes of critical care time spent evaluating the patient, reviewing the d jose guadalupe and formulating a plan exclusive of all other procedures. JONATHON Rosado 06/14/2018 onversion Trans action, Provider Unknown - 06/13/2018 12:22 PM PDT Case Management by BRIA Sparks at 06/13/18 1222 Author: BRIA Sparks Service: (none) Author Type: System Auditor Filed: 06/13/18 2098 Date of Service: 06/13/18 122 Status: Signed Sales Consulting Director: BRIA Sparks (System Auditor) provided patient's son with the requested letter for his court involvement. BRIANNA Hughes onver alex Transaction, Provider Unknown - 06/13/2018 12:00 PM PDT Nurse Progress Note by Kalpana Burns RN at 06/13/18 1200 Author: Kalpana Burns RN Service: (none) Author Type: Registered Nurse Filed: 06/13/18 1735 Date of Service: 06/13/18 1200 Status: Signed Sales Consulting Director: Kalpana Burns RN (Registered Nurse) Discussed restraint renewal with JONATHON Alexander during rounds at 0900. Multiple code blue act ivations an emergencies on floor caused restraint order to be delayed. Kalpana Burns RN onver alex Transaction, Provider Unknown - 06/13/2018 11:23 AM PDT Progress Notes by Mariely Cohen RD at 06/13/18 1123 Author: Mariely Cohen RD Service: (none) Author Type: Registered Dietitian Filed: 06/13/18 1300 Date of Service: 06/13/18 1123 Status: Signed Sales Consulting Director: Mariely Cohen RD (Registered Dietitian) 06/13/18 1123 Subjective Timepoint Follow up Pt c/o In to f/u with pt who was admitted for seizures, with hx of ETOH abuse, is intubated . Per Rn plan is to trial extubation this afternoon. Spoke with son, brother, and other fami ly at bedside. RD conducted visit in Malagasy. Reported by Family Diet Experience Self-selected diet(s) followed Son reports pt was eating minimal amounts over the last 3 ye ars s/p colon resection. Pt will complaint of hunger although unable to tolerate as it would not stay down, always having to run to the bathroom. Pt attempts to eat just about anything , chicken or beef stews, tacos, etc. Son reports it was much easier for him to drink his hubert ories and would drink alcohol (approx 1/5th of Fireball 3 times daily). No food allergies. Home Nutrition Support Son and brother deny the use of supplementation at home such as Elisha t or Ensure Fluid / Beverage Intake Oral Fluids Amount NPO Food Intake Amount of Food NPO Enteral Nutrition Intake Access OG Rate/Solution Isosource 1.5 at 55 ml/hr Feeding tube flush 30 ml q 4 hours. Modular Type Beneprotein Beneprotein packets per day 2 per day Calories per day 1700 Grams of Protein per day 87 Total Volume per day 1100 mL Micronutrient Intake Vitamin Intake Multivitamin;Folate Mineral / Element Intake Multi-mineral;Iron Social Network Social Support Family at bedside Nutrition-Focused Physical Findings Overall Appearance Pt appears malnourished. Body Language Currently on fentanyl and precedex. Extremities, Muscles and Bones NFPE performed to find pt with severe fat loss of the orbita ls and triceps. Severe muscle loss of the temples and shoulders. Moderate muscle loss of the clavicles and thighs. Anthropometrics Weight change Wt up 6.3 kg since admit. Per I/O's pt is fluid positive 10 L. Continue to mo nitor. Son reports wt and muscle loss is likely. UBW is unknown. Biochemical data, medical tests, and procedures reviewed Biochemical data, medical tests, and procedures reviewed BG 152-170 over the last 24 hours, has insulin ordered. Pt noted to be on decadron. Cr (L) 0.6- may be indicative of muscle w asting. Recommendations Recommended energy needs Continue TF Isosource 1.5 at goal rate of 55 ml/hr (x 20 hours) wi th Beneprotein 1 pkt BID in wtare flushes. Continue to monitor. Recommended vitamin needs Continue MV with minerals FA/Fe r/t hx of ETOH abuse. Nutritional Risk Nutritional risk High Follow up date 06/16/18 Malnutrition Evaluation Estimated energy intake time frame 3 Months (3 years) Estimated % energy intake last 3 months 75 % RD Assessed Weight 64.2 kg (141 lb 8.6 oz) Malnutrition in the Context Of Social and/or Environmental Factors Clinical Characteristics indicative of moderate malnutrition less than 75% of EER within 3 months Clinical Characteristics indicative of severe malnutrition Severe body fat depletion;Severe muscle mass depletion Protein-Calorie Malnutrition Type (!) Severe Mariely Cohen, MS, RDN, CD onver alex Transaction, Provider Unknown - 06/13/2018 7:41 AM PDT Nurse Progress Note by Marisela Salcido RN at 06/13/1841 Author: Marisela Salcido RN Service: (none) Author Type: Registered Nurse Filed: 06/13/18 0804 Date of Service: 06/13/18740 Status: Signed Sales Consulting Director: Marisela Salcido RN (Registered Nurse) 24hr chart check/audit completed. MARISELA SALCIDO RN Amanda Junior MD - 06/13/2018 4:22 AM PDTFormatting of this note might be different from the origi nal. Progress Notes by Amanda Arreaga MD at 06/13/18421 Author: Amanda Arreaga MD Service: Community Planning Technician Author Type: Physician Filed: 06/13/189 Date of Service: 06/13/18421 Status: Signed Sales Consulting Director: Amanda Arreaga MD (Physician) [facility] Service: Community Planning Technician Progress Note Jose Eaton 68 y.o. Hospital Day: LOS: 4 days Post-Op Day: * No surgery found * Consulting Physicians Treatment Team: Consulting Physician: Jean-Pierre Du II, MD Admitting Provider: Edy La MD SUBJECTIVE SUBJECTIVE Patient Summary:68 y.o.ghanaian speaking M with PMHof rectalcancers/p LAR andileostomy reversal in 2016, hyperlipidemia, ETOH abuse (2 pints of whiskey daily), atrial fib, and pancreatitis,whopresents in transfer from [facility] with seizures an d found to have a left brain mass?. ICU Timeline: 06/11: EEG with no seizure. MS improved. Patient extubated, developed stridor and reintub ated. 06/12: No cuff leak. LP performed Events Overnight:DCed propofol and fentanyl, following commands. Started prec edex and olanzapine. SCHEDULED MEDICATIONS chlorhexidine gluconate 15 mL Mouth/Throat Q12H enoxaparin 40 mg Subcutaneous Q24H famotidine 20 mg Intravenous BID insulin lispro (human) 0-10 Units Subcutaneous 4 times per day levETIRAcetam 500 mg Intravenous Q12H nystatin 5 mL Oral 4x Daily sodium bicarbonate buffer 5 mL Infiltration Once CONTINUOUS INFUSIONS dexmedetomidine in NS 0.4 mcg/kg/hr (06/13/18338) dextrose fentaNYL in NS 5 mcg/mL Stopped (06/13/18244) propofol Stopped (06/13/18244) OBJECTIVE VITAL SIGNS Temp: [98 F (36.7 C)-98.8 F (37.1 C)] 98.7 F (37.1 C) Heart Rate: [59-89] 83 Resp: [12-57] 19 BP: (84-147)/(50-80) 147/80 FiO2 : [21 %] 21 % Intake/Output Summary (Last 24 hours) at 06/13/18 0422 Last data filed at 06/13/18 023 Gross per 24 hour Intake 2199.19 ml Output 0 ml Net 2199.19 ml EXAM GEN:Arousable to pain, does not follow commands, NAD NEURO:PERRLA, no facial asymmetry HEENT:sclerae clear, nonicteric, oral mmm, pink, no exudates NECK: supple, trachea midline CV:RRR, S1/S2, no murmur, rub or gallop, peripheral pulses palpable, cap refill brisk LUNGS: clear b/l, no wheezing, rales or rhonchi, symmetric chest expansion, even/unlabored respirations ABD:soft, nondistended, nontender to palpation, no masses, no hepatosplenomegaly EXTR:no edema, clubbing or cyanosis SKIN:warm, dry, no rash or mottling; no e/o skin breakdown over the occiput, scapulae, el bows, sacrum or heels LINES/TUBES:ETT, OGT, PIV, port right chest DATA Recent Labs Lab 06/12/18 0404 06/11/18 0526 06/10/18 0405 WBC 6.23 5.15 7.22 RBC 3.52* 3.35* 3.96* HGB 12.5* 12.0* 14.1 HCT 35.5* 34.2* 39.8 MCV 100.7* 102.0* 100.6* MCH 35.4* 35.9* 35.6* MCHC 35.2 35.2 35.4 RDW 48.6 48.6 48.6 PLT 196 180 224 MPV 8.7 8.5 8.7 BANDSABS 0.19 -- -- NEUTROABS -- 4.16 5.50 LYMPHSABS -- 0.43* 1.04 MONOSABS -- 0.53 0.63 BASOSABS -- 0.02 0.03 EOSABS -- 0.01 0.02 MORPH RBC AND PLT MORPHOLOGY APPEAR NORMAL -- -- Recent Labs Lab 06/12/18 0404 06/11/18 1729 06/11/18 0526 06/10/18 0405 NA 134* -- 137 -- 132* K 4.1 4.1 3.3* < > 3.9 CL 101 -- 104 -- 97* CO2 25 -- 24 -- 25 ANIONGAP 12 -- 12 -- 14 GLUF 208* -- 110* -- 97 BUN 11 -- 11 -- 9 CREATININE 0.6* -- 0.5* -- 0.6* BCR 18 -- 22 -- 15 CA 8.3* -- 8.0* -- 8.4* EGFR >60 -- >60 -- >60 PHOS 3.0 3.8 2.0* -- 2.5 MG 1.8 2.0 1.7 < > 2.1 < > = values in this interval not displayed. Recent Labs Lab 06/12/18 1319 INR 1.0 IMAGING Mri Brain With And Without Contrast Result Date: 06/10/2018 1. Motion degraded exam. 2. Mild diffusion restriction in the left hippocampus and anterome dial left temporal lobe as well as vague diffusion abnormality in the pulvinar of the left t halamus. This is a common distribution of diffusion restriction related to postictal change s. Acute ischemia and early changes of HSV/limbic encephalitis could be considered in the [facility] clinical setting although felt to be less likely. 3. Punctate focus of diffusion restr iction in the right occipital lobe consistent with acute to subacute infarction. 4. Rounded lesion at the vertex on the left measuring 1.3 x 1.7 cm which appears predominantly extra-ax ial but could focally involve the cortex of the superior left frontal lobe with heterogeneou s internal signal but no convincing evidence of enhancement or significant surrounding vasog enic edema. This is nonspecific and could represent a benign hematoma, cavernous malformati on, neoplasm (including metastatic lesion without enhancement due to internal hemorrhage, pr imary brain cortical neoplasm, and less likely nonenhancing calcified meningioma). No true c entral diffusion restriction or significant surrounding vasogenic edema to suggest abscess. Recommend short interval follow-up MRI without and with contrast. CT could also be helpful to assess for hemorrhage or calcification. 5. No definite enhancing intracranial lesions al though postcontrast images are degraded by artifact. Tiny intraparenchymal mat abscesses ma y not be detected on this exam. 6. Small area of encephalomalacia and gliosis in the left fr ontal lobe which may be related to previous infarction or trauma. Signed by: MD Dieter, Joe Sign Date/Time: 06/10/2018 4:33 PM X-ray Chest 1 View Result Date: 06/11/2018 1. ET tube terminates 3 cm from the kavitha. 2. NG tube tip overlies the stomach. 3. Trace right pleural effusion. Signed by: Marisela Fields Sign Date/Time: 06/11/2018 3:24 PM Xr Chest 1 View Result Date: 06/09/2018 ETT 4.1 cm above kavitha. No pneumothorax or focal consolidation. Trace right pleural effus ion. Signed by: Kris Roy Sign Date/Time: 06/09/2018 10:59 PM PROBLEM LIST Principal Problem: Seizures (HCC) Active Problems: Hyperlipidemia Atrial fibrillation with RVR Protein-calorie malnutrition, severe Physical deconditioning Chronic diarrhea Altered mental status Malignant neoplasm of colon (HCC) ETOH abuse Mass of brain Resolved Problems: * No resolved hospital problems. * ASSESSMENT & PLAN ASSESSMENT & PLAN 1. NEURO: *Seizures: ETOH withdrawal, no new seizures -Keppra -Ativan PRN seizures *Encephalopathy vs. 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 L P WNL. Most likely delirium. 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 Recommend repeat MRI in one week, possible biopsy as outpatient. 2. CV: *Afib with RVR: Converted back to sinus 3. PULM: *Acute hypoxemic respiratory failure 2/2 stridor: Patient was extubated and had to be reint ubated 2/2 stridor. Small cuff leak. -6-8 cc/kg IBW -Decadron 4. GI/NUTRITION: No acute issues, Tube feeds. 5. RENAL/LYTES:No acute issues 6. ID:No acute issues 7. HEME: No acute issues 8. ENDO:No acute issues 9. MUSC/SKIN:No acute issues PROPHYLAXIS: Stress ulcer prophylaxis: Famotidine DVT prophylaxis: Lovenox, scd VAP bundle: chlorhexidine oral care, HOB >30 degrees. Disposition:ICU Code Status:Full Code *Please bill 30 minutes of critical care time spent evaluating the patient, reviewing the d jose guadalupe and formulating a plan exclusive of all other procedures. Amanda Arreaga MD 06/13/2018 onversion Transaction, Provider Unknown - 06/12/2018 3:14 PM PDTFormatting of this note might be different from th e original. Progress Notes by Khurram Palmer RRT at 06/12/18 1514 Author: Khurram Palmer RRT Service: (none) Author Type: Registered Respiratory Therap ist Filed: 06/12/181513 Date of Service: 06/12/181513 Status: Signed Sales Consulting Director: Khurram Palmer RRT (Registered Respiratory Therapist) 06/12/18 1511 ETT 8 mm Placement Date/Time: 06/11/18 1415 Size : 8 mm Cuffed: Cuffed Insertion attempts: 1 Pl aced By: NPS Secured at (cm): 25 cm Measured From: Gums Secured by: Commercial tube hold er Confirmation: EtCO2 Technique: [employer] Scope Secured at (cm) 25 cm Measured From Teeth Secured Location Right Secured by Commercial tube hdz Site Condition Dry Vent Type/Mode Vent Type Drager Vent Mode Drager VC-AC RT Settings Set Rate 16 bmp Resp Rate Total 16 br/min Vt Set 360 mL PEEP 8.6 cmH20 FiO2 21 % Trigger flow (L/min) 2 L/m Insp Time 0.9 Sec(s) Insp Rise Time (sec) / [place] 0.2 sec Tube Compensation/ATC 100 % Auto Flow ON Patient Returns ET CO2 34 mmHg Ve 5.96 mL Peak Airway Pressure 12 cmH2O Mean Airway Pressure 10 cmH20 Plateau Pressure 14 cmH20 Inhaled Vt (mL) 397 mL Exhaled Vt (mL) 375 mL Dynamic Compliance (L/cm H2O) 110 L/cm H2O I:E Ratio Measured 1.0:3.2 Backup Ventilation Backup Ventilation Yes/No? NO Alarms Alarms set per Policy Yes Resp Rate High 35 br/min Press High 45 cmH2O Vt High 900 mL Ve High 17 L/min Ve Low 4 L/min MV Delay 15 sec ETCO2/TCM High (mmHg) 50 mmHg ETCO2/TCM Low (mmHg) 20 mmHg Alarm Volume 80 % Oxygen Therapy/Pulse Ox SpO2 95 % O2 Therapy Oxygen humidified O2 Device ETT Humidification Heated wire Humidifier Temp Setting 37 degC Humidifier Temp Actual 37.2 degC Vitals/Respiratory Assessment Assessment Type Assess only Heart Rate 84 Heart Rate Source Monitor Resp 16 Patient Effort Fair Level of Consciousness Somnolent;Sedated Respiratory Pattern Regular Patient Tolerance Tolerated well Breath Sounds Breath Sounds Bilateral Clear;Diminished Airway Suctioning/Secretions Suction Type Inline;Catheter Secretion Amount None onver alex Transaction, Provider Unknown - 06/12/2018 10:44 AM PDT Progress Notes by Khurram Palmer RRT at 06/12/18 1044 Author: Khurram Palmer RRT Service: (none) Author Type: Registered Respiratory Therap ist Filed: 06/12/181043 Date of Service: 06/12/181043 Status: Signed Sales Consulting Director: Khurram Palmer RRT (Registered Respiratory Therapist) 06/12/18 1040 Vent Type/Mode Vent Type Drager Vent Mode Drager VC-AC RT Settings Set Rate 16 bmp Resp Rate Total 16 br/min Vt Set 360 mL PEEP 8.1 cmH20 FiO2 21 % Trigger flow (L/min) 2 L/m Insp Time 0.9 Sec(s) Insp Rise Time (sec) / [place] 0.2 sec Tube Compensation/ATC 100 % Auto Flow ON Patient Returns ET CO2 34 mmHg Ve 5.86 mL Peak Airway Pressure 18 cmH2O Mean Airway Pressure 10 cmH20 Inhaled Vt (mL) 313 mL Exhaled Vt (mL) 313 mL Dynamic Compliance (L/cm H2O) 135 L/cm H2O I:E Ratio Measured 1.0:3.2 Alarms Alarms set per Policy Yes Oxygen Therapy/Pulse Ox SpO2 95 % O2 Therapy Oxygen humidified O2 Device ETT Humidification Heated wire Humidifier Temp Setting 37 degC Humidifier Temp Actual 37 degC Vitals/Respiratory Assessment Assessment Type Assess only Heart Rate 65 Heart Rate Source Monitor Resp 16 Patient Effort Fair Respiratory Pattern Regular Patient Tolerance Tolerated well Breath Sounds Breath Sounds Bilateral Coarse;Diminished Airway Suctioning/Secretions Suction Type Inline;Catheter Secretion Amount Scant Secretion Color Clear Secretion Consistency Thick onver alex Transaction, Provider Unknown - 06/12/2018 7:54 AM PDT Progress Notes by Khurram Palmer RRT at 06/12/18753 Author: Khurram Palmer RRT Service: (none) Author Type: Registered Respiratory Therap ist Filed: 06/12/18753 Date of Service: 06/12/18753 Status: Signed Sales Consulting Director: Khurram Palmer RRT (Registered Respiratory Therapist) This note also relates to the following rows which could not be included: Set Rate - Cannot attach notes to unvalidated device data Resp Rate Total - Cannot attach notes to unvalidated device data Vt Set - Cannot attach notes to unvalidated device data PEEP - Cannot attach notes to unvalidated device data FiO2 - Cannot attach notes to unvalidated device data Trigger flow (L/min) - Cannot attach notes to unvalidated device data Insp Time - Cannot attach notes to unvalidated device data Insp Rise Time (sec) / [place] - Cannot attach notes to unvalidated device data Tube Compensation/ATC - Cannot attach notes to unvalidated device data ET CO2 - Cannot attach notes to unvalidated device data Ve - Cannot attach notes to unvalidated device data Mean Airway Pressure - Cannot attach notes to unvalidated device data Inhaled Vt (mL) - Cannot attach notes to unvalidated device data Exhaled Vt (mL) - Cannot attach notes to unvalidated device data I:E Ratio Measured - Cannot attach notes to unvalidated device data SpO2 - Cannot attach notes to unvalidated device data Heart Rate - Cannot attach notes to unvalidated device data 06/12/18 0710 ETT 8 mm Placement Date/Time: 06/11/18 1415 Size : 8 mm Cuffed: Cuffed Insertion attempts: 1 Pl aced By: NPS Secured at (cm): 25 cm Measured From: Gums Secured by: Commercial tube hold er Confirmation: EtCO2 Technique: [employer] Scope Secured at (cm) 25 cm Measured From Teeth Secured Location Right Secured by Commercial tube hdz Site Condition Dry Cuff Pressure (cwp) 28 cwp Vent Type/Mode Vent Type Drager Vent Mode Drager VC-AC RT Settings Auto Flow ON Patient Returns Peak Airway Pressure 17 cmH2O Plateau Pressure 15 cmH20 Dynamic Compliance (L/cm H2O) 96 L/cm H2O Backup Ventilation Backup Ventilation Yes/No? NO Alarms Alarms set per Policy Yes Resp Rate High 35 br/min Press High 45 cmH2O Vt High 900 mL Ve High 17 L/min Ve Low 4 L/min MV Delay 15 sec ETCO2/TCM High (mmHg) 50 mmHg ETCO2/TCM Low (mmHg) 20 mmHg Alarm Volume 80 % Oxygen Therapy/Pulse Ox O2 Therapy Oxygen humidified O2 Device ETT Humidification Heated wire Humidifier Temp Setting 37 degC Humidifier Temp Actual 37 degC Vitals/Respiratory Assessment Assessment Type Assess only Heart Rate Source Monitor Resp 16 Patient Effort Fair Level of Consciousness Sedated Respiratory Pattern Regular Patient Tolerance Tolerated well Breath Sounds Breath Sounds Bilateral Diminished;Coarse Airway Suctioning/Secretions Suction Type Inline;Catheter Secretion Amount Small Secretion Color Clear Secretion Consistency Thick Amanda Junior MD - 06/12/2018 3:23 AM PDTFormatting of this note might be different from the origi nal. Progress Notes by Amanda Arreaga MD at 06/12/18322 Author: Amanda Arreaga MD Service: Community Planning Technician Author Type: Physician Filed: 06/12/18330 Date of Service: 06/12/18322 Status: Signed Sales Consulting Director: Amanda Arreaga MD (Physician) [facility] Service: Community Planning Technician Progress Note Jose Eaton 68 y.o. Hospital Day: LOS: 3 days Post-Op Day: * No surgery found * Consulting Physicians Treatment Team: Consulting Physician: Jean-Pierre Du II, MD Admitting Provider: Edy La MD SUBJECTIVE Patient Summary: 68 y.o.ghanaian speaking M with PMH of rectal cancers/p LAR and i leostomy reversal in 2016, hyperlipidemia, ETOH abuse (2 pints of whiskey daily), atrial fib , and pancreatitis,whopresents in transfer from [facility] with seizures and found to have a left brain mass?. ICU Timeline: 06/11: EEG with no seizure. MS improved. Patient extubated, developed stridor and reintub ated. Events Overnight: No cuff leak SCHEDULED MEDICATIONS chlorhexidine gluconate 15 mL Mouth/Throat Q12H dexamethasone 6 mg Intravenous Q6H docusate sodium 100 mg Oral BID Or docusate 100 mg Per OG Tube BID enoxaparin 40 mg Subcutaneous Q24H famotidine 20 mg Intravenous BID multivitamin & minerals w iron/FA 1 tablet Oral Daily with breakfast Or folic acid (FOLVITE) IVPB 1 mg Intravenous Daily with breakfast levETIRAcetam 500 mg Intravenous Q12H nystatin 5 mL Oral 4x Daily CONTINUOUS INFUSIONS fentaNYL in NS 5 mcg/mL 12.5 mcg/hr (06/11/182002) propofol 20 mcg/kg/min (06/12/18 0150) OBJECTIVE VITAL SIGNS Temp: [97.8 F (36.6 C)-99.6 F (37.6 C)] 97.8 F (36.6 C) Heart Rate: [65-124] 77 Resp: [13-58] 16 BP: (87-192)/(51-136) 103/58 FiO2 : [21 %-30 %] 21 % Intake/Output Summary (Last 24 hours) at 06/12/18 0324 Last data filed at 06/11/182002 Gross per 24 hour Intake 4605.02 ml Output 403 ml Net 4202.02 ml EXAM GEN: Arousable to pain, does not follow commands, NAD NEURO: PERRLA, no facial asymmetry HEENT: sclerae clear, nonicteric, oral mmm, pink, no exudates NECK: supple, trachea midline CV: RRR, S1/S2, no murmur, rub or gallop, peripheral pulses palpable, cap refill brisk LUNGS: clear b/l, no wheezing, rales or rhonchi, symmetric chest expansion, even/unlabored respirations ABD: soft, nondistended, nontender to palpation, no masses, no hepatosplenomegaly EXTR: no edema, clubbing or cyanosis SKIN: warm, dry, no rash or mottling; no e/o skin breakdown over the occiput, scapulae, elb ows, sacrum or heels LINES/TUBES: ETT, OGT, PIV, port right chest DATA Recent Labs Lab 06/11/18 0526 06/10/18 0405 WBC 5.15 7.22 RBC 3.35* 3.96* HGB 12.0* 14.1 HCT 34.2* 39.8 MCV 102.0* 100.6* MCH 35.9* 35.6* MCHC 35.2 35.4 RDW 48.6 48.6 PLT 180 224 MPV 8.5 8.7 NEUTROABS 4.16 5.50 LYMPHSABS 0.43* 1.04 MONOSABS 0.53 0.63 BASOSABS 0.02 0.03 EOSABS 0.01 0.02 Recent Labs Lab 06/11/18 1729 06/11/18 0526 06/10/18 1604 06/10/18 1014 06/10/18 0405 06/09/18 2137 NA -- 137 -- -- 132* 131* K 4.1 3.3* 4.3 4.0 3.9 3.7 CL -- 104 -- -- 97* 97* CO2 -- 24 -- -- 25 27 ANIONGAP -- 12 -- -- 14 11 GLUF -- 110* -- -- 97 112* BUN -- 11 -- -- 9 7* CREATININE -- 0.5* -- -- 0.6* 0.50* BCR -- 22 -- -- 15 14 CA -- 8.0* -- -- 8.4* 8.2* EGFR -- >60 -- -- >60 >60 PHOS 3.8 2.0* -- -- 2.5 2.5 MG 2.0 1.7 -- 2.2 2.1 1.7 No results for input(s): INR in the last 168 hours. IMAGING Mri Brain With And Without Contrast Result Date: 06/10/2018 1. Motion degraded exam. 2. Mild diffusion restriction in the left hippocampus and anterome dial left temporal lobe as well as vague diffusion abnormality in the pulvinar of the left t halamus. This is a common distribution of diffusion restriction related to postictal change s. Acute ischemia and early changes of HSV/limbic encephalitis could be considered in the [facility] clinical setting although felt to be less likely. 3. Punctate focus of diffusion restr iction in the right occipital lobe consistent with acute to subacute infarction. 4. Rounded lesion at the vertex on the left measuring 1.3 x 1.7 cm which appears predominantly extra-ax ial but could focally involve the cortex of the superior left frontal lobe with heterogeneou s internal signal but no convincing evidence of enhancement or significant surrounding vasog enic edema. This is nonspecific and could represent a benign hematoma, cavernous malformati on, neoplasm (including metastatic lesion without enhancement due to internal hemorrhage, pr imary brain cortical neoplasm, and less likely nonenhancing calcified meningioma). No true c entral diffusion restriction or significant surrounding vasogenic edema to suggest abscess. Recommend short interval follow-up MRI without and with contrast. CT could also be helpful to assess for hemorrhage or calcification. 5. No definite enhancing intracranial lesions al though postcontrast images are degraded by artifact. Tiny intraparenchymal mat abscesses ma y not be detected on this exam. 6. Small area of encephalomalacia and gliosis in the left fr ontal lobe which may be related to previous infarction or trauma. Signed by: MD Dieter, Joe Sign Date/Time: 06/10/2018 4:33 PM X-ray Chest 1 View Result Date: 06/11/2018 1. ET tube terminates 3 cm from the kavitha. 2. NG tube tip overlies the stomach. 3. Trace right pleural effusion. Signed by: Marisela Fields Sign Date/Time: 06/11/2018 3:24 PM Xr Chest 1 View Result Date: 06/09/2018 ETT 4.1 cm above kavitha. No pneumothorax or focal consolidation. Trace right pleural effus ion. Signed by: Kris Roy Sign Date/Time: 06/09/2018 10:59 PM PROBLEM LIST Principal Problem: Seizures (HCC) Active Problems: Hyperlipidemia Atrial fibrillation with RVR Protein-calorie malnutrition, severe Physical deconditioning Chronic diarrhea Altered mental status Malignant neoplasm of colon (HCC) ETOH abuse Mass of brain Resolved Problems: * No resolved hospital problems. * ASSESSMENT & PLAN 1. NEURO: *Seizures: ETOH withdrawal, no new seizures -Keppra -Propofol -Ativan PRN seizures *ETOH abuse: -Thiamine -Folate *Superior left frontal lobe brain Mass?: Extra axial most likely -Neurosurgery consult. Recommend repeat MRI in one week, possible biopsy as outpatient. 2. CV: *Afib with RVR: Converted back to sinus 3. PULM: *Acute hypoxemic respiratory failure 2/2 stridor: Patient was extubated and had to be reint ubated 2/2 stridor. No cuff leak. -6-8 cc/kg IBW -Decadron 4. GI/NUTRITION: No acute issues 5. RENAL/LYTES: No acute issues 6. ID: No acute issues 7. HEME: No acute issues 8. ENDO: No acute issues 9. MUSC/SKIN: No acute issues PROPHYLAXIS: Stress ulcer prophylaxis: Famotidine DVT prophylaxis: Lovenox, scd VAP bundle: chlorhexidine oral care, HOB >30 degrees. Disposition: ICU Code Status: Full Code *Please bill 30 minutes of critical care time spent evaluating the patient, reviewing the d jose guadalupe and formulating a plan exclusive of all other procedures. Amanda Arreaga MD 06/12/2018 onversion Transaction, Provider Unknown - 06/11/2018 3:47 PM PDTFormatting of this note might be different from th e original. Nurse Progress Note by Mirtha Espinoza RN at 06/11/18 0138 Author: Mirtha Espinoza RN Service: (none) Author Type: Registered Nurse Filed: 06/11/18 2618 Date of Service: 06/11/181546 Status: Signed Sales Consulting Director: Mirtha Espinoza RN (Registered Nurse) Pt extubated to RA at approximately 1400, per MD order. Pt was intermittently following com mands, but was doing well on his SBT. Pt extubated, but was unable to clear secretions. NT s uctioning attempted by RT Tracie, but was unsuccessful. Due to increased work of breathing, course lung sounds, and developing stridor, the decision was made to re-intubate at 1415. onver alex Transaction, Provider Unknown - 06/11/2018 3:28 PM PDT Progress Notes by Tracie Savage CRT at 06/11/18 1528 Author: Tracie Savage CRT Service: (none) Author Type: Certified Respiratory Thera pist Filed: 06/11/18 1542 Date of Service: 06/11/18 1528 Status: Signed Sales Consulting Director: Tracie Savage CRT (Certified Respiratory Therapist) Pt placed on spontaneous mode at 1054 and passed SBT, no periods of apnea, normal RR, spO2 100%. Received confirmation from [facility] that pt was following commands and able to be extubate d. Had conference interpreter explain to pt process of extubation, dropped cuff heard a leak, and pulle d tube. After extubated pt was unable to cough, sounded very coarse. Attempted NT suction wa s not able to get much secretions. Doctors notified and decision was made to re intubate. onver alex Transaction, Provider Unknown - 06/11/2018 9:57 AM PDT Case Management by Jordan Lugo RN at 06/11/18 0999 Author: Jordan Lugo RN Service: (none) Author Type: Registered Nurse Filed: 06/11/18 1349 Date of Service: 06/11/18956 Status: Addendum Sales Consulting Director: Jordan Lugo RN (Registered Nurse) Related Notes: Original Note by Jordan Lugo RN (Registered Nurse) filed at 06/11/18 12 8:33 AM Jose is still intubated. No family in the room. Left another message for Byron [phone]. 11:50 AM Checked on Jose. Lots of family just arrived. I will let them get settled and revisit w ith a horticulture/floriculture teacher. 1:48 PM Went to see Jose's family. They are no longer here. Message left for Byron. Amanda Junior MD - 06/11/2018 5:40 AM PDTFormatting of this note might be different from the origi nal. Progress Notes by Amanda Arreaga MD at 06/11/18 0843 Author: Amanda Arreaga MD Service: Community Planning Technician Author Type: Physician Filed: 06/11/1858 Date of Service: 06/11/18539 Status: Signed Sales Consulting Director: Amanda Arreaga MD (Physician) [facility] Service: Community Planning Technician Progress Note Jose Eaton 68 y.o. Hospital Day: LOS: 2 days Post-Op Day: * No surgery found * Consulting Physicians Treatment Team: Consulting Physician: Jean-Pierre Du II, MD Admitting Provider: Edy La MD SUBJECTIVE Patient Summary: 68 y.o.ghanaian speaking M with PMH of rectal cancers/p LAR and i leostomy reversal in 2016, hyperlipidemia, ETOH abuse (2 pints of whiskey daily), atrial fib , and pancreatitis,whopresents in transfer from [facility] with seizures and found to have a left brain mass?. ICU Timeline: EEG with no seizure Events Overnight: Cobb removed due to leak. EEG performed due to unchanged MS to rul e out subclinical seizures. SCHEDULED MEDICATIONS chlorhexidine gluconate 15 mL Mouth/Throat Q12H docusate sodium 100 mg Oral BID Or docusate 100 mg Per OG Tube BID enoxaparin 40 mg Subcutaneous Q24H famotidine 20 mg Intravenous BID multivitamin & minerals w iron/FA 1 tablet Oral Daily with breakfast Or folic acid (FOLVITE) IVPB 1 mg Intravenous Daily with breakfast influenza vaccine quadrivalent 0.5 mL Intramuscular Once Immunization levETIRAcetam 500 mg Intravenous Q12H nystatin 5 mL Oral 4x Daily pneumococcal 23-valent vaccine 0.5 mL Intramuscular Once Immunization thiamine 100 mg Oral Daily Or thiamine (VITAMIN B1) IVPB 100 mg Intravenous Daily CONTINUOUS INFUSIONS fentaNYL in NS 5 mcg/mL 25 mcg/hr (06/10/181919) propofol 30 mcg/kg/min (06/11/18418) sodium chloride (IV) 110 mL/hr at 06/11/18 0114 OBJECTIVE VITAL SIGNS Temp: [97.7 F (36.5 C)-98.1 F (36.7 C)] 98.1 F (36.7 C) Heart Rate: [58-106] 105 Resp: [16-54] 28 BP: (87-176)/(51-98) 133/72 FiO2 : [21 %-25 %] 21 % Intake/Output Summary (Last 24 hours) at 06/11/18 0560 Last data filed at 06/11/18 0419 Gross per 24 hour Intake 4533.12 ml Output 975 ml Net 3558.12 ml EXAM GEN: Arousable to pain, does not follow commands, NAD NEURO: PERRLA, no facial asymmetry HEENT: sclerae clear, nonicteric, oral mmm, pink, no exudates NECK: supple, trachea midline CV: RRR, S1/S2, no murmur, rub or gallop, peripheral pulses palpable, cap refill brisk LUNGS: clear b/l, no wheezing, rales or rhonchi, symmetric chest expansion, even/unlabored respirations ABD: soft, nondistended, nontender to palpation, no masses, no hepatosplenomegaly EXTR: no edema, clubbing or cyanosis SKIN: warm, dry, no rash or mottling; no e/o skin breakdown over the occiput, scapulae, elb ows, sacrum or heels LINES/TUBES: ETT, OGT, PIV, port right chest DATA Recent Labs Lab 06/10/18 0405 WBC 7.22 RBC 3.96* HGB 14.1 HCT 39.8 MCV 100.6* MCH 35.6* MCHC 35.4 RDW 48.6 PLT 224 MPV 8.7 NEUTROABS 5.50 LYMPHSABS 1.04 MONOSABS 0.63 BASOSABS 0.03 EOSABS 0.02 Recent Labs Lab 06/10/18 1604 06/10/18 1014 06/10/18 0405 06/09/18 2137 NA -- -- 132* 131* K 4.3 4.0 3.9 3.7 CL -- -- 97* 97* CO2 -- -- 25 27 ANIONGAP -- -- 14 11 GLUF -- -- 97 112* BUN -- -- 9 7* CREATININE -- -- 0.6* 0.50* BCR -- -- 15 14 CA -- -- 8.4* 8.2* EGFR -- -- >60 >60 PHOS -- -- 2.5 2.5 MG -- 2.2 2.1 1.7 No results for input(s): INR in the last 168 hours. IMAGING Mri Brain With And Without Contrast Result Date: 06/10/2018 1. Motion degraded exam. 2. Mild diffusion restriction in the left hippocampus and anterome dial left temporal lobe as well as vague diffusion abnormality in the pulvinar of the left t halamus. This is a common distribution of diffusion restriction related to postictal change s. Acute ischemia and early changes of HSV/limbic encephalitis could be considered in the [facility] clinical setting although felt to be less likely. 3. Punctate focus of diffusion restr iction in the right occipital lobe consistent with acute to subacute infarction. 4. Rounded lesion at the vertex on the left measuring 1.3 x 1.7 cm which appears predominantly extra-ax ial but could focally involve the cortex of the superior left frontal lobe with heterogeneou s internal signal but no convincing evidence of enhancement or significant surrounding vasog enic edema. This is nonspecific and could represent a benign hematoma, cavernous malformati on, neoplasm (including metastatic lesion without enhancement due to internal hemorrhage, pr imary brain cortical neoplasm, and less likely nonenhancing calcified meningioma). No true c entral diffusion restriction or significant surrounding vasogenic edema to suggest abscess. Recommend short interval follow-up MRI without and with contrast. CT could also be helpful to assess for hemorrhage or calcification. 5. No definite enhancing intracranial lesions al though postcontrast images are degraded by artifact. Tiny intraparenchymal mat abscesses ma y not be detected on this exam. 6. Small area of encephalomalacia and gliosis in the left fr ontal lobe which may be related to previous infarction or trauma. Signed by: MD Dieter, Joe Sign Date/Time: 06/10/2018 4:33 PM Xr Chest 1 View Result Date: 06/09/2018 ETT 4.1 cm above kavitha. No pneumothorax or focal consolidation. Trace right pleural effus ion. Signed by: Kris Roy Sign Date/Time: 06/09/2018 10:59 PM PROBLEM LIST Principal Problem: Seizures (HCC) Active Problems: Hyperlipidemia Atrial fibrillation with RVR Protein-calorie malnutrition, severe Physical deconditioning Chronic diarrhea Altered mental status Malignant neoplasm of colon (HCC) ETOH abuse Mass of brain Resolved Problems: * No resolved hospital problems. * ASSESSMENT & PLAN 1. NEURO: *Seizures: ETOH related? Vs mass? -Keppra -Propofol -Ativan PRN seizures -Follow up EEG results *ETOH abuse: -Thiamine -Folate *Superior left frontal lobe brain Mass?: Unclear etiology, history of rectal cancer -Neurosurgery consult -Repeat MRI -CT chest abd and pelvis if concern for mets 2. CV: *Afib with RVR: Converted back to sinus 3. PULM: *Acute respiratory failure: -6-8 cc/kg IBW -SBT 4. GI/NUTRITION: No acute issues 5. RENAL/LYTES: Cobb dced due to urine leak 6. ID: No acute issues 7. HEME: No acute issues 8. ENDO: No acute issues 9. MUSC/SKIN: No acute issues PROPHYLAXIS: Stress ulcer prophylaxis: Famotidine DVT prophylaxis: Lovenox, scd VAP bundle: chlorhexidine oral care, HOB >30 degrees. Disposition: ICU Code Status: Full Code *Please bill 30 minutes of critical care time spent evaluating the patient, reviewing the d jose guadalupe and formulating a plan exclusive of all other procedures. Amanda Arreaga MD 06/11/2018 onversion Transaction, Provider Unknown - 06/10/2018 9:40 PM PDTFormatting of this note might be different from th e original. Nurse Progress Note by Rachel Stephens RN at 06/10/182139 Author: Rachel Stephens RN Service: Community Planning Technician Author Type: Registered Nurse Filed: 06/11/18 010 Date of Service: 06/10/182139 Status: Signed Sales Consulting Director: Rachel Stephens RN (Registered Nurse) Propofol turned off at 2049 for sedation vacation. After 30 minutes of sedation being off, patient began to cough against vent. Patient would not open eyes or follow commands (Spani sh being spoken to him) Patient grimacing and attempting to reach for ETT. Patient did res pond to pain stimulus in all 4 extremities. Sedation turned back on at 2135 due to patient coughing fits. onver alex Transaction, Provider Unknown - 06/10/2018 6:43 PM PDT Progress Notes by Belén Greenwood RN at 06/10/18 1594 Author: Belén Greenwood RN Service: (none) Author Type: Registered Nurse Filed: 06/10/181842 Date of Service: 06/10/181842 Status: Signed Sales Consulting Director: Belén Greenwood RN (Registered Nurse) End of shift chart audit complete onver alex Transaction, Provider Unknown - 06/10/2018 2:22 PM PDT Progress Notes by Shakira Geiger RD at 06/10/18 142 Author: Shakira Geiger RD Service: (none) Author Type: Registered Dietitian Filed: 06/10/18 1424 Date of Service: 06/10/181421 Status: Signed Sales Consulting Director: Shakira Geiger RD (Registered Dietitian) 06/10/18 1400 Subjective Timepoint Admit Pt c/o Consult received for TF. Pt admitted for seizures. Pt intubated and sedated. Per haile rting pt transferred from [facility] (was admitted there on 06/07). No family present at t samy of visit. 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 Fluid / Beverage Intake Oral Fluids Amount NPO Food Intake Amount of Food NPO Enteral Nutrition Intake Access OG Parenteral Nutrition Intake Rate/Solution Propofol running at 7.7 ml/hr to provide 203 kcal/day. NS running at 110 ml/h r. Micronutrient Intake Vitamin Intake Multivitamin;Thiamin;Folate Mineral / Element Intake Multi-mineral;Iron Nutrition-Focused Physical Findings BP 128/72 Heart Rate 62 SpO2 100 % Anthropometrics Weight change Pt's BMI is 24.3 and pt is 109% of IBW. Biochemical data, medical tests, and procedures reviewed Biochemical data, medical tests, and procedures reviewed Na 132 (L) and Cr 0.6 (L). Estimated Energy Needs Total Energy Estimated Needs 8779-4459 kcal/day Method for Estimating Needs 25-30 kcal/kg based on admit wt of 64.2 kg Estimated Protein Needs Total Protein Estimated Needs 77-96 g/day Method for Estimating Needs 1.2-1.5 g/kg based on admit wt of 64.2 kg Recommendations Recommended energy needs Recommend TF of Isosource 1.5 with goal rate of 55 ml/hr (x 20 елена rs) to provide 1650 kcal, 75 g pro, 1100 ml TV and 840 ml free water. Plus 1 packet Beneprot ein BID to provide an additional 50 kcal and 12 g pro. TF plus Beneprotein and Propofol will provide 1903 kcal and 87 g pro (30 kcal/kg and 1.36 g pro/kg based on admit wt of 64.2 kg). Monitor and follow as indicated. Nutritional Risk Nutritional risk High Follow up date 06/13/[address] onver alex Transaction, Provider Unknown - 06/10/2018 9:23 AM PDT Case Management by Jordna Lugo RN at 06/10/18922 Author: Jordan Lugo RN Service: (none) Author Type: Registered Nurse Filed: 06/11/18732 Date of Service: 06/10/18922 Status: Addendum Sales Consulting Director: Jordan Lugo RN (Registered Nurse) Related Notes: Original Note by Jordan Lugo RN (Registered Nurse) filed at 06/10/1809 06 9:23 AM Attempted to do assessment, patient intubated, and no family in room. Message left for [facility] [phone]. Will re-visit later. 12:06 PM Still no family in room. Called and left message with Jose Matthews's son, number was on ite board. [phone] 3:03 PM Checked in on Jose. Still no family or return call from friend or sons. onver alex Transaction, Provider Unknown - 06/10/2018 7:31 AM PDT Nurse Progress Note by Mirela Damon RN at 06/10/18730 Author: Mirela Damon RN Service: (none) Author Type: Registered Nurse Filed: 06/10/18 0737 Date of Service: 06/10/18730 Status: Signed Sales Consulting Director: Mirela Damon RN (Registered Nurse) End of shift self audit completed. Restraints: NA Blood: None given this shift Protocols: Electrolyte- assessed, administered and re-assessed as indicated. See flow sheets Endotool- NA CIWA- Assessed, administered and reassessed per protocol see flowsheet/eMAR Vanco Trough- NA IV/Central line Dressing Changes- None due this shift Signed and Held Orders: evaluated, none in place Care Plan: Documented Parameter Medications: Given per parameter/provider recommendations. Flu Vaccine (Dec-May only): Assessed, ordered for administration on day shift MIRELA DAMON RN llis, Fozia Yarbrough NP - 06/10/2018 4:30 AM PDT Progress Notes by JONATHON Jones at 06/10/18429 Author: JONATHON Jones Service: Community Planning Technician Author Type: Advanced Registered Nurse Practitioner Filed: 06/10/18 0653 Date of Service: 06/10/18429 Status: Signed Sales Consulting Director: JONATHON Jones (Advanced Registered Nurse Practitioner) [facility] Community Planning Technician Service Progress Note Jose Eaton 68 y.o. Hospital Day: LOS: 1 day Consulting Physicians Treatment Team: Admitting Provider: Edy La MD SUBJECTIVE Patient Summary: From [facility] on 06/[facility]/18: The patient is a 68 y.o. male, Malagasy-speaking only, with significant past medical history of colon cancer (s/p bowel resection and ileostomy reversal in 2015), hyperlipidemia, ETOH abuse, atrial fib, and pancreatitis, who presents in transfer from [facility] [place]. He originally presented to via EMS on 06/07/18 with altered mental status. P er his , the patient had not eaten or drank anything for the last 2 days, except for alc ohol. (The son states the patient's last drink was on Tuesday, 06/07 around 5 pm. He drin ks an estimated 2 pints of whiskey per day.) The patient suffers from chronic diarrhea sinc e having colon surgery 3 years ago. The diarrhea has worsened lately, and he spent much of the day in the bathroom prior to presentation. The states he has been non-verbal, droo ling, and had a syncopal episode. Another family member, Trish, stated he had been "normal t his morning, able to communicate and ambulate without issue" (from ED documentation). ICU Timeline: 06/09: transferred from [facility] to [facility] ICU; EEG done, intubated for airway prote ction Events Overnight: Developed atrial fib with RVR, HR up as high as 170s. Was given 5 mg Lopressor x 2, with decrease in HR down to 120s. Later converted back to sinus rhythm. SCHEDULED MEDICATIONS chlorhexidine gluconate 15 mL Mouth/Throat Q12H docusate sodium 100 mg Oral BID Or docusate 100 mg Per OG Tube BID enoxaparin 40 mg Subcutaneous Q24H multivitamin & minerals w iron/FA 1 tablet Oral Daily with breakfast Or folic acid (FOLVITE) IVPB 1 mg Intravenous Daily with breakfast levETIRAcetam 500 mg Intravenous Q12H nystatin 5 mL Oral 4x Daily thiamine 100 mg Oral Daily Or thiamine (VITAMIN B1) IVPB 100 mg Intravenous Daily CONTINUOUS INFUSIONS propofol 30 mcg/kg/min (06/09/182250) sodium chloride (IV) 110 mL/hr at 06/09/183 OBJECTIVE VITAL SIGNS Temp: [98 F (36.7 C)] 98 F (36.7 C) Heart Rate: [97-110] 110 Resp: [16-25] 16 BP: (181)/(79) 181/79 FiO2 : [25 %] 25 % Intake/Output Summary (Last 24 hours) at 06/10/18 0013 Last data filed at 06/09/18 2300 Gross per 24 hour Intake 0 ml Output 160 ml Net -160 ml EXAM GEN: obtunded, EEG electrodes in place NEURO: weak gag reflex, PERRL, no facial asymmetry, moves extremities to pain but unable t o follow commands GCS: 6T (E 1, V 1T, M 4) HEENT: sclerae injected, nonicteric, oral mmm, pink NECK: supple, trachea midline CV: irregular, tachycardic, S1/S2, no murmur, rub or gallop, peripheral pulses palpable, c ap refill brisk LUNGS: coarse with some rhonchi b/l, no wheezing or rales, symmetric chest expansion, even/ unlabored respirations on MV ABD: soft, nondistended, nontender to palpation, no masses, bowel tones hyperactive EXTR: no edema, clubbing or cyanosis; scar to right knee; varicose veins present in BLE, R > L SKIN: warm, dry, no rash or mottling; no e/o skin breakdown over the occiput, scapulae, elb ows, sacrum or heels; chest appears lane/ flushed; palpable port in right chest LINES/TUBES: PIVs, ETT/OGT (06/09), urethral catheter (inserted at ) DATA Recent Labs Lab 06/10/18 0405 WBC 7.22 RBC 3.96* HGB 14.1 HCT 39.8 MCV 100.6* MCH 35.6* MCHC 35.4 RDW 48.6 PLT 224 MPV 8.7 NEUTROABS 5.50 LYMPHSABS 1.04 MONOSABS 0.63 BASOSABS 0.03 EOSABS 0.02 Recent Labs Lab 06/10/18 0405 06/09/18 2137 NA 132* 131* K 3.9 3.7 CL 97* 97* CO2 25 27 ANIONGAP 14 11 GLUF 97 112* BUN 9 7* CREATININE 0.6* 0.50* BCR 15 14 CA 8.4* 8.2* EGFR >60 >60 PHOS 2.5 2.5 MG 2.1 1.7 No results for input(s): INR in the last 168 hours. IMAGING Xr Chest 1 View Result Date: 06/09/2018 ETT 4.1 cm above kavitha. No pneumothorax or focal consolidation. Trace right pleural effus ion. Signed by: Kris Roy Sign Date/Time: 06/09/2018 10:59 PM PROBLEM LIST Principal Problem: Seizures (HCC) Active Problems: Hyperlipidemia Atrial fibrillation with RVR Protein-calorie malnutrition, severe Physical deconditioning Chronic diarrhea Altered mental status Malignant neoplasm of colon (HCC) ETOH abuse Mass of brain Resolved Problems: * No resolved hospital problems. * ASSESSMENT & PLAN NEURO: Seizures. Keppra 500 mg q 12 hrs. Seizures thought to be due to alcohol withdrawal at , but this seems less likely as sei zures were reported in the ED, and patient had just been drinking that day. EEG was done after admission; no seizure activity, but some sharp waves present, indicati ng irritability. These areas at F7 and T3 correspond somewhat to the location of his brain masses. Brain masses. MRI without contrast done at [facility] showing small mass in the left high parietal region, and another mass potentially in the left temporal. These could possi sohail be metastases from colon malignancy. Obtundation. Arrived with a GCS of 6; intubated shortly after, see PULM. History of alcoholism; CIWA protocol ordered. Use ativan prn alcohol withdrawal symptoms. Replete thiamine and folic acid. CAM-ICU screening every shift. CV: Atrial fib with RVR. HR up as high as 170s. Was given 5 mg Lopressor x 2, with decreas e in HR down to 120s. Later converted back to sinus rhythm. Some hypotension overnight. 1 L crystalloid given. PULM: Arrived with a GCS of 6, intubated for airway protection. Subsegmental atelectasis seen on chest CT on 06/09. GI/NUTRITION: Poor PO intake for 2 days prior to admission on 06/07. Continue maintenance fluids, NS a t 110 ml/hr. Severe protein-calorie malnutrition. Consult to magazine hand. RENAL/LYTES: Renal function appears normal. Renally dose medications, avoid nephrotoxins. Monitor electrolytes and replace per protocol. Monitor Is/Os. BMP daily. ID: No acute infectious process suspected. HEME/ONC: History of colon cancer, s/p bowel resection, ileostomy, and ileostomy reversal in 2016. CBC daily. ENDO: No acute issues. Implement Endotool if indicated per ICU protocol. MUSC/SKIN: Physical deconditioning. PT/OT/mobilize patient when able. Skin care and pressure ulcer prevention per nursing standards. PROPHYLAXIS: Stress ulcer prophylaxis: famotidine DVT prophylaxis: SCDs, enoxaparin VAP bundle: chlorhexidine oral care, HOB >30 degrees Disposition: ICU plan of care as above. Code Status: Full Code *Please bill 40 minutes of critical care time spent evaluating the patient, reviewing the d jose guadalupe and formulating a plan exclusive of all other procedures. JONATHON Dunne 06/10/2018 onversion Hernandez saction, Provider Unknown - 06/10/2018 12:42 AM PDTFormatting of this note might be differen t from the original. Pharmacy Note by Suad Alvarez RPH at 06/10/1841 Author: Suad Alvarez RPH Service: Pharmacy Author Type: Pharmacist Filed: 06/10/1841 Date of Service: 06/10/1841 Status: Signed Sales Consulting Director: Suad Alvarez RPH (Pharmacist) Clinical Pharmacy Note: Renal Monitoring Height: 162.6 cm Weight: 64.2 kg Serum creatinine: 0.5 mg/dL (L) 06/09/182136 Estimated creatinine clearance: 115.1 mL/min (A) Pharmacy dosing for renal function per Dr. Vega. Currently there are no medications needing to be adjusted. Pharmacy will continue to monito r for changes in medication orders and in renal function and adjust accordingly. 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 Brief Findings: The approximately first hour of EEG was reviewed. Diffuse slowing was noted , although more pronounced in the left compared with right regions. Occasional spike or tomas p discharges phase reversing at F7 or T3 were noted. No electrographic seizures were noted t hus far. The presence of sharp waves/ spikes in the interictal EEG could indicate an underlying kiley ical irritability that may increase the risk of seizures in certain clinical context. Clinic al correlation is recommended. We will continue to monitor this patient's continuous EEG and leave progress notes with any changes. A formal continuous EEG report will follow. Please do not hesitate to contact us with any questions or concerns. Toribio Lopez MD [facility] [place] Clinical Neurophysiologist documented in t his encounter Plan of Treatment +--------+ + + + + | Date | Type | Specialty | Care Team | Description | +--------+ + + + + | 02/21/ | Hospital | | Saleem Shore, | Rectal prolapse | | 2018 | Encounter | | MD [address] | | | | | | [address] | | | | | | [place] [address] | | | | | | [phone] | | | | | | | | +--------+ + + + + | 02/21/ | Surgery | | Saleem Shore, | COLONOSCOPY | | 2019 | | | MD [address] | | | | | | [address] | | | | | | [place] [address] | | | | | | [phone] | | | | | | | | +--------+ + + + + documented as of this encounter Procedures + +--------+ + + + | Procedure Name | Priori | Date/Time | Associated Diagnosis | Comments | | | ty | | | | + +--------+ + + + | EXTERNAL LAB: CBC | Routin | 06/22/2018 | | Results for this | | | e | 4:58 AM | | procedure are in the | | | | PDT | | results section. | + +--------+ + + + | BASIC METABOLIC | Routin | 06/22/2018 | | Results for this | | PANEL | e | 4:58 AM | | procedure are in the | | | | PDT | | results section. | + +--------+ + + + | LEVETIRACETAM LEVEL | Routin | 06/21/2018 | | Results for this | | | e | 8:28 AM | | procedure are in the | | | | PDT | | results section. | + +--------+ + + + | EXTERNAL LAB: KARI | Routin | 06/21/2018 | | Results for this | | | e | 5:15 AM | | procedure are in the | | | | PDT | | results section. | + +--------+ + + + | BASIC METABOLIC | Routin | 06/21/2018 | | Results for this | | PANEL | e | 5:15 AM | | procedure are in the | | | | PDT | | results section. | + +--------+ + + + | EXTERNAL LAB: KARI | Routin | 06/20/2018 | | Results for this | | | e | 4:44 AM | | procedure are in the | | | | PDT | | results section. | + +--------+ + + + | BASIC METABOLIC | Routin | 06/20/2018 | | Results for this | | PANEL | e | 4:44 AM | | procedure are in the | | | | PDT | | results section. | + +--------+ + + + | EXTERNAL LAB: CBC | Routin | 06/19/2018 | | Results for this | | | e | 5:16 AM | | procedure are in the | | | | PDT | | results section. | + +--------+ + + + | BASIC METABOLIC | Routin | 06/19/2018 | | Results for this | | PANEL | e | 5:16 AM | | procedure are in the | | | | PDT | | results section. | + +--------+ + + + | EXTERNAL LAB: CBC | Routin | 06/18/2018 | | Results for this | | | e | 5:46 AM | | procedure are in the | | | | PDT | | results section. | + +--------+ + + + | BASIC METABOLIC | Routin | 06/18/2018 | | Results for this | | PANEL | e | 5:46 AM | | procedure are in the | | | | PDT | | results section. | + +--------+ + + + | POC GLUCOSE | Routin | 06/18/2018 | | Results for this | | | e | 5:17 AM | | procedure are in the | | | | PDT | | results section. | + +--------+ + + + | POC GLUCOSE | Routin | 06/17/2018 | | Results for this | | | e | 9:19 PM | | procedure are in the | | | | PDT | | results section. | + +--------+ + + + | HISTORICAL | Timed | 06/17/2018 | | Results for this | | MICROBIOLOGY RESULT | | 5:56 PM | | procedure are in the | | | | PDT | | results section. | + +--------+ + + + | POC GLUCOSE | Routin | 06/17/2018 | | Results for this | | | e | 4:16 PM | | procedure are in the | | | | PDT | | results section. | + +--------+ + + + | CT HEAD WO CONTRAST | Routin | 06/17/2018 | | Results for this | | | e | 12:35 PM | | procedure are in the | | | | PDT | | results section. | + +--------+ + + + | POC GLUCOSE | Routin | 06/17/2018 | | Results for this | | | e | 5:43 AM | | procedure are in the | | | | PDT | | results section. | + +--------+ + + + | EXTERNAL LAB: CBC | Routin | 06/17/2018 | | Results for this | | | e | 4:57 AM | | procedure are in the | | | | PDT | | results section. | + +--------+ + + + | LIPID PANEL | Routin | 06/17/2018 | | Results for this | | | e | 4:57 AM | | procedure are in the | | | | PDT | | results section. | + +--------+ + + + | TSH | Routin | 06/17/2018 | | Results for this | | | e | 4:57 AM | | procedure are in the | | | | PDT | | results section. | + +--------+ + + + | HEMOGLOBIN A1C | Routin | 06/17/2018 | | Results for this | | | e | 4:57 AM | | procedure are in the | | | | PDT | | results section. | + +--------+ + + + | BASIC METABOLIC | Routin | 06/17/2018 | | Results for this | | PANEL | e | 4:57 AM | | procedure are in the | | | | PDT | | results section. | + +--------+ + + + | POC GLUCOSE | Routin | 06/16/2018 | | Results for this | | | e | 9:34 PM | | procedure are in the | | | | PDT | | results section. | + +--------+ + + + | MRI BRAIN W WO | Routin | 06/16/2018 | | Results for this | | CONTRAST | e | 5:22 PM | | procedure are in the | | | | PDT | | results section. | + +--------+ + + + | POC GLUCOSE | Routin | 06/16/2018 | | Results for this | | | e | 4:20 PM | | procedure are in the | | | | PDT | | results section. | + +--------+ + + + | ECHO COMPLETE | Routin | 06/16/2018 | | Results for this | | | e | 4:18 PM | | procedure are in the | | | | PDT | | results section. | + +--------+ + + + | VAS CAROTID DUPLEX | Routin | 06/16/2018 | | Results for this | | BILATERAL | e | 1:59 PM | | procedure are in the | | | | PDT | | results section. | + +--------+ + + + | POC GLUCOSE | Routin | 06/16/2018 | | Results for this | | | e | 11:55 AM | | procedure are in the | | | | PDT | | results section. | + +--------+ + + + | AMMONIA | Routin | 06/16/2018 | | Results for this | | | e | 7:41 AM | | procedure are in the | | | | PDT | | results section. | + +--------+ + + + | POC GLUCOSE | Routin | 06/16/2018 | | Results for this | | | e | 5:30 AM | | procedure are in the | | | | PDT | | results section. | + +--------+ + + + | EXTERNAL LAB: CBC | Routin | 06/16/2018 | | Results for this | | | e | 5:06 AM | | procedure are in the | | | | PDT | | results section. | + +--------+ + + + | PHOSPHORUS | Routin | 06/16/2018 | | Results for this | | | e | 5:06 AM | | procedure are in the | | | | PDT | | results section. | + +--------+ + + + | MAGNESIUM | Routin | 06/16/2018 | | Results for this | | | e | 5:06 AM | | procedure are in the | | | | PDT | | results section. | + +--------+ + + + | BASIC METABOLIC | Routin | 06/16/2018 | | Results for this | | PANEL | e | 5:06 AM | | procedure are in the | | | | PDT | | results section. | + +--------+ + + + | POC GLUCOSE | Routin | 06/15/2018 | | Results for this | | | e | 9:08 PM | | procedure are in the | | | | PDT | | results section. | + +--------+ + + + | POC GLUCOSE | Routin | 06/15/2018 | | Results for this | | | e | 4:05 PM | | procedure are in the | | | | PDT | | results section. | + +--------+ + + + | POC GLUCOSE | Routin | 06/15/2018 | | Results for this | | | e | 11:55 AM | | procedure are in the | | | | PDT | | results section. | + +--------+ + + + | MAGNESIUM | Routin | 06/15/2018 | | Results for this | | | e | 8:30 AM | | procedure are in the | | | | PDT | | results section. | + +--------+ + + + | POC GLUCOSE | Routin | 06/15/2018 | | Results for this | | | e | 6:42 AM | | procedure are in the | | | | PDT | | results section. | + +--------+ + + + | EXTERNAL LAB: CBC | Routin | 06/15/2018 | | Results for this | | | e | 4:17 AM | | procedure are in the | | | | PDT | | results section. | + +--------+ + + + | PHOSPHORUS | Routin | 06/15/2018 | | Results for this | | | e | 4:17 AM | | procedure are in the | | | | PDT | | results section. | + +--------+ + + + | MAGNESIUM | Routin | 06/15/2018 | | Results for this | | | e | 4:17 AM | | procedure are in the | | | | PDT | | results section. | + +--------+ + + + | BASIC METABOLIC | Routin | 06/15/2018 | | Results for this | | PANEL | e | 4:17 AM | | procedure are in the | | | | PDT | | results section. | + +--------+ + + + | POC GLUCOSE | Routin | 06/15/2018 | | Results for this | | | e | 12:35 AM | | procedure are in the | | | | PDT | | results section. | + +--------+ + + + | POC GLUCOSE | Routin | 06/14/2018 | | Results for this | | | e | 6:26 PM | | procedure are in the | | | | PDT | | results section. | + +--------+ + + + | POTASSIUM | Routin | 06/14/2018 | | Results for this | | | e | 4:03 PM | | procedure are in the | | | | PDT | | results section. | + +--------+ + + + | MAGNESIUM | Routin | 06/14/2018 | | Results for this | | | e | 4:03 PM | | procedure are in the | | | | PDT | | results section. | + +--------+ + + + | POC GLUCOSE | Routin | 06/14/2018 | | Results for this | | | e | 12:29 PM | | procedure are in the | | | | PDT | | results section. | + +--------+ + + + | HIV 1 AND 2 ANTIBODY | Routin | 06/14/2018 | | Results for this | | DIFFERENTIATION | e | 10:31 AM | | procedure are in the | | | | PDT | | results section. | + +--------+ + + + | HEPATITIS PANEL, | Routin | 06/14/2018 | | Results for this | | ACUTE | e | 10:31 AM | | procedure are in the | | | | PDT | | results section. | + +--------+ + + + | POC GLUCOSE | Routin | 06/14/2018 | | Results for this | | | e | 6:31 AM | | procedure are in the | | | | PDT | | results section. | + +--------+ + + + | EXTERNAL LAB: CBC | Routin | 06/14/2018 | | Results for this | | | e | 5:06 AM | | procedure are in the | | | | PDT | | results section. | + +--------+ + + + | PHOSPHORUS | Routin | 06/14/2018 | | Results for this | | | e | 5:06 AM | | procedure are in the | | | | PDT | | results section. | + +--------+ + + + | MAGNESIUM | Routin | 06/14/2018 | | Results for this | | | e | 5:06 AM | | procedure are in the | | | | PDT | | results section. | + +--------+ + + + | BASIC METABOLIC | Routin | 06/14/2018 | | Results for this | | PANEL | e | 5:06 AM | | procedure are in the | | | | PDT | | results section. | + +--------+ + + + | POC GLUCOSE | Routin | 06/14/2018 | | Results for this | | | e | 12:18 AM | | procedure are in the | | | | PDT | | results section. | + +--------+ + + + | POC GLUCOSE | Routin | 06/13/2018 | | Results for this | | | e | 6:37 PM | | procedure are in the | | | | PDT | | results section. | + +--------+ + + + | POC GLUCOSE | Routin | 06/13/2018 | | Results for this | | | e | 12:55 PM | | procedure are in the | | | | PDT | | results section. | + +--------+ + + + | POC GLUCOSE | Routin | 06/13/2018 | | Results for this | | | e | 6:21 AM | | procedure are in the | | | | PDT | | results section. | + +--------+ + + + | EXTERNAL LAB: CBC | Routin | 06/13/2018 | | Results for this | | | e | 5:35 AM | | procedure are in the | | | | PDT | | results section. | + +--------+ + + + | PHOSPHORUS | Routin | 06/13/2018 | | Results for this | | | e | 5:35 AM | | procedure are in the | | | | PDT | | results section. | + +--------+ + + + | MAGNESIUM | Routin | 06/13/2018 | | Results for this | | | e | 5:35 AM | | procedure are in the | | | | PDT | | results section. | + +--------+ + + + | BASIC METABOLIC | Routin | 06/13/2018 | | Results for this | | PANEL | e | 5:35 AM | | procedure are in the | | | | PDT | | results section. | + +--------+ + + + | POC GLUCOSE | Routin | 06/13/2018 | | Results for this | | | e | 12:11 AM | | procedure are in the | | | | PDT | | results section. | + +--------+ + + + | HISTORICAL | Timed | 06/12/2018 | | Results for this | | MICROBIOLOGY RESULT | | 6:14 PM | | procedure are in the | | | | PDT | | results section. | + +--------+ + + + | WEST NILE VIRUS AB, | Routin | 06/12/2018 | | Results for this | | IGG, IGM, CSF | e | 6:14 PM | | procedure are in the | | | | PDT | | results section. | + +--------+ + + + | CULTURE, CSF, SMEAR | Timed | 06/12/2018 | | Results for this | | | | 6:14 PM | | procedure are in the | | | | PDT | | results section. | + +--------+ + + + | RC PREP | Timed | 06/12/2018 | | Results for this | | | | 6:14 PM | | procedure are in the | | | | PDT | | results section. | + +--------+ + + + | CELL COUNT WITH | Timed | 06/12/2018 | | Results for this | | DIFFERENTIAL, CSF | | 6:14 PM | | procedure are in the | | | | PDT | | results section. | + +--------+ + + + | VDRL, CSF | Timed | 06/12/2018 | | Results for this | | | | 6:14 PM | | procedure are in the | | | | PDT | | results section. | + +--------+ + + + | PROTEIN, CSF | Timed | 06/12/2018 | | Results for this | | | | 6:14 PM | | procedure are in the | | | | PDT | | results section. | + +--------+ + + + | GLUCOSE, CSF | Timed | 06/12/2018 | | Results for this | | | | 6:14 PM | | procedure are in the | | | | PDT | | results section. | + +--------+ + + + | VARICELLA ZOSTER AB, | STAT | 06/12/2018 | | Results for this | | IGM | | 6:14 PM | | procedure are in the | | | | PDT | | results section. | + +--------+ + + + | POC GLUCOSE | Routin | 06/12/2018 | | Results for this | | | e | 5:57 PM | | procedure are in the | | | | PDT | | results section. | + +--------+ + + + | PROTIME INR | Routin | 06/12/2018 | | Results for this | | | e | 1:19 PM | | procedure are in the | | | | PDT | | results section. | + +--------+ + + + | POC GLUCOSE | Routin | 06/12/2018 | | Results for this | | | e | 12:48 PM | | procedure are in the | | | | PDT | | results section. | + +--------+ + + + | EXTERNAL LAB: CBC | Routin | 06/12/2018 | | Results for this | | | e | 4:04 AM | | procedure are in the | | | | PDT | | results section. | + +--------+ + + + | PHOSPHORUS | Routin | 06/12/2018 | | Results for this | | | e | 4:04 AM | | procedure are in the | | | | PDT | | results section. | + +--------+ + + + | MAGNESIUM | Routin | 06/12/2018 | | Results for this | | | e | 4:04 AM | | procedure are in the | | | | PDT | | results section. | + +--------+ + + + | BASIC METABOLIC | Routin | 06/12/2018 | | Results for this | | PANEL | e | 4:04 AM | | procedure are in the | | | | PDT | | results section. | + +--------+ + + + | POTASSIUM | Routin | 06/11/2018 | | Results for this | | | e | 5:29 PM | | procedure are in the | | | | PDT | | results section. | + +--------+ + + + | PHOSPHORUS | Routin | 06/11/2018 | | Results for this | | | e | 5:29 PM | | procedure are in the | | | | PDT | | results section. | + +--------+ + + + | MAGNESIUM | Routin | 06/11/2018 | | Results for this | | | e | 5:29 PM | | procedure are in the | | | | PDT | | results section. | + +--------+ + + + | XR CHEST 1 VIEW | Routin | 06/11/2018 | | Results for this | | | e | 2:40 PM | | procedure are in the | | | | PDT | | results section. | + +--------+ + + + | URINALYSIS WITH | Routin | 06/11/2018 | | Results for this | | MICROSCOPIC IF | e | 10:43 AM | | procedure are in the | | INDICATED | | PDT | | results section. | + +--------+ + + + | EXTERNAL LAB: CBC | Routin | 06/11/2018 | | Results for this | | | e | 5:26 AM | | procedure are in the | | | | PDT | | results section. | + +--------+ + + + | PHOSPHORUS | Routin | 06/11/2018 | | Results for this | | | e | 5:26 AM | | procedure are in the | | | | PDT | | results section. | + +--------+ + + + | MAGNESIUM | Routin | 06/11/2018 | | Results for this | | | e | 5:26 AM | | procedure are in the | | | | PDT | | results section. | + +--------+ + + + | BASIC METABOLIC | Routin | 06/11/2018 | | Results for this | | PANEL | e | 5:26 AM | | procedure are in the | | | | PDT | | results section. | + +--------+ + + + | AMMONIA | Routin | 06/11/2018 | | Results for this | | | e | 12:39 AM | | procedure are in the | | | | PDT | | results section. | + +--------+ + + + | POTASSIUM | Routin | 06/10/2018 | | Results for this | | | e | 4:04 PM | | procedure are in the | | | | PDT | | results section. | + +--------+ + + + | MRI BRAIN W WO | Routin | 06/10/2018 | | Results for this | | CONTRAST | e | 3:21 PM | | procedure are in the | | | | PDT | | results section. | + +--------+ + + + | POTASSIUM | Routin | 06/10/2018 | | Results for this | | | e | 10:14 AM | | procedure are in the | | | | PDT | | results section. | + +--------+ + + + | MAGNESIUM | Routin | 06/10/2018 | | Results for this | | | e | 10:14 AM | | procedure are in the | | | | PDT | | results section. | + +--------+ + + + | EXTERNAL LAB: CBC | Routin | 06/10/2018 | | Results for this | | | e | 4:05 AM | | procedure are in the | | | | PDT | | results section. | + +--------+ + + + | PHOSPHORUS | Routin | 06/10/2018 | | Results for this | | | e | 4:05 AM | | procedure are in the | | | | PDT | | results section. | + +--------+ + + + | MAGNESIUM | Routin | 06/10/2018 | | Results for this | | | e | 4:05 AM | | procedure are in the | | | | PDT | | results section. | + +--------+ + + + | BASIC METABOLIC | Routin | 06/10/2018 | | Results for this | | PANEL | e | 4:05 AM | | procedure are in the | | | | PDT | | results section. | + +--------+ + + + | XR CHEST 1 VIEW | Routin | 06/09/2018 | | Results for this | | | e | 10:40 PM | | procedure are in the | | | | PDT | | results section. | + +--------+ + + + | GRAM STAIN, REFLEX | Timed | 06/09/2018 | | Results for this | | SPUTUM CULTURE | | 10:37 PM | | procedure are in the | | | | PDT | | results section. | + +--------+ + + + | MRSA NAAT | Routin | 06/09/2018 | | Results for this | | | e | 10:00 PM | | procedure are in the | | | | PDT | | results section. | + +--------+ + + + | PHOSPHORUS | Routin | 06/09/2018 | | Results for this | | | e | 9:37 PM | | procedure are in the | | | | PDT | | results section. | + +--------+ + + + | MAGNESIUM | Routin | 06/09/2018 | | Results for this | | | e | 9:37 PM | | procedure are in the | | | | PDT | | results section. | + +--------+ + + + | BASIC METABOLIC | Routin | 06/09/2018 | | Results for this | | PANEL | e | 9:37 PM | | procedure are in the | | | | PDT | | results section. | + +--------+ + + + | POC GLUCOSE | Routin | 06/09/2018 | | Results for this | | | e | 9:05 PM | | procedure are in the | | | | PDT | | results section. | + +--------+ + + + documented in this encounter Results External Lab: CBC (06/22/2018 4:58 AM PDT) + + + + + + | Component | Value | Ref Range | Performed | Pathologist | | | | | At | Signature | + + + + + + | WBC | 5.54 | 3.80 - 11.00 | EXTERNAL | | | | | K/uL | LAB | | + + + + + + | RED CELL | 3.32 (L) | 4.20 - 5.70 | EXTERNAL | | | COUNT | | M/uL | LAB | | + + + + + + | Hgb | 11.8 (L) | 13.2 - 17.0 | EXTERNAL | | | | | g/dL | LAB | | + + + + + + | Hematocrit, | 33.5 (L) | 39.0 - 50.0 % | EXTERNAL | | | POC | | | LAB | | + + + + + + | MCV | 100.9 (H) | 80.0 - 100.0 fl | EXTERNAL | | | | | | LAB | | + + + + + + | MCH | 35.4 (H) | 27.0 - 34.0 pg | EXTERNAL | | | | | | LAB | | + + + + + + | MCHC | 35.1 | 32.0 - 35.5 | EXTERNAL | | | | | g/dL | LAB | | + + + + + + | RDW-CV | 47.3 | 37 - 53 fl | EXTERNAL | | | | | | LAB | | + + + + + + | Platelet | 272 | 150 - 400 K/uL | EXTERNAL | | | Count | | | LAB | | | Plasma | | | | | + + + + + + | MPV | 8.9 | fl | EXTERNAL | | | | | | LAB | | + + + + + + | Differentia | AUTOMATED | | EXTERNAL | | | l Type | | | LAB | | + + + + + + | % Segmented | 73.38 | % | EXTERNAL | | | | | | LAB | | | Neutrophils | | | | | + + + + + + | % | 14.24 | % | EXTERNAL | | | Lymphocytes | | | LAB | | + + + + + + | % Monocytes | 10.55 | % | EXTERNAL | | | | | | LAB | | + + + + + + | % | 1.05 | % | EXTERNAL | | | Eosinophils | | | LAB | | + + + + + + | % Basophils | 0.78 | % | EXTERNAL | | | | | | LAB | | + + + + + + | Absolute | 4.07 | 1.90 - 7.40 | EXTERNAL | | | Segmented | | K/uL | LAB | | | Neutrophils | | | | | + + + + + + | Absolute | 0.79 (L) | 1.00 - 3.90 | EXTERNAL | | | Lymphocytes | | K/uL | LAB | | + + + + + + | Absolute | 0.59 | 0.00 - 0.80 | EXTERNAL | | | Monocytes | | K/uL | LAB | | + + + + + + | Absolute | 0.06 | 0.00 - 0.50 | EXTERNAL | | | Eosinophils | | K/uL | LAB | | + + + + + + | Absolute | 0.04Comment: Testing | 0.00 - 0.10 | EXTERNAL | | | Basophils | performed at [facility], [address] | K/uL | LAB | | | | [address], | | | | | | [place] [address] | | | | + + + [...] + +---------+ + + Basic Metabolic Panel (06/22/2018 4:58 AM PDT) + + + + + + | Component | Value | Ref Range | Performed | Pathologist | | | | | At | Signature | + + + + + + | Na | 138 | 135 - 145 | EXTERNAL | | | | | mmol/L | LAB | | + + + + + + | K | 4.2 | 3.5 - 4.9 | EXTERNAL | | | | | mmol/L | LAB | | + + + + + + | Cl | 104 | 99 - 109 mmol/L | EXTERNAL | | | | | | LAB | | + + + + + + | CO2 | 29 | 23 - 32 mmol/L | EXTERNAL | | | | | | LAB | | + + + + + + | Anion Gap | 9 | 5 - 20 mmol/L | EXTERNAL | | | | | | LAB | | + + + + + + | Glucose, | 91 | 65 - 99 mg/dL | EXTERNAL | | | Fasting | | | LAB | | + + + + + + | BUN | 15 | 8 - 25 mg/dL | EXTERNAL | | | | | | LAB | | + + + + + + | Creatinine | 0.7 | 0.70 - 1.30 | EXTERNAL | | | | | mg/dL | LAB | | + + + + + + | BUN/Creatin | 21 | | EXTERNAL | | | ine Ratio | | | LAB | | + + + + + + | Calcium | 9.0 | 8.5 - 10.5 | EXTERNAL | | | | | mg/dL | LAB | | + + + + + [...] BY | | | | | | 1.210.This eGFR is | | | | | | calculated using the | | | | | | MDRD IDMS traceable | | | | | | equation.Testing | | | | | | performed at [facility], [address] | | | | | | [facility], | | | | | | [place] [address] | | | | + + + + + + + + | Specimen | + + | Blood specimen | | (specimen) | + + + +---------+ + + | Performing | Address | City/State/Zipcode | Phone Number | | Organization | | | | + +---------+ + + | EXTERNAL LAB | | | | + +---------+ + + Levetiracetam Level (06/21/2018 8:28 AM PDT) + + + + + + | Component | Value | Ref Range | Performed | Pathologist | | | | | At | Signature | + + + + + + | LEVETIRACET | 12.1Comment: Reference | ug/mL | EXTERNAL | | | AM | range: 10.0 to | | LAB | | | | 40.0Testing performed at | | | | | | [facility], [address] | | | | | | [place] | | | | | | [address] | | | | + + + [...] + +---------+ + + External Lab: CBC (06/21/2018 5:15 AM PDT) + + + + + + | Component | Value | Ref Range | Performed | Pathologist | | | | | At | Signature | + + + + + + | WBC | 6.10 | 3.80 - 11.00 | EXTERNAL | | | | | K/uL | LAB | | + + + + + + | RED CELL | 3.27 (L) | 4.20 - 5.70 | EXTERNAL | | | COUNT | | M/uL | LAB | | + + + + + + | Hgb | 11.5 (L) | 13.2 - 17.0 | EXTERNAL | | | | | g/dL | LAB | | + + + + + + | Hematocrit, | 33.0 (L) | 39.0 - 50.0 % | EXTERNAL | | | POC | | | LAB | | + + + + + + | MCV | 100.9 (H) | 80.0 - 100.0 fl | EXTERNAL | | | | | | LAB | | + + + + + + | MCH | 35.1 (H) | 27.0 - 34.0 pg | EXTERNAL | | | | | | LAB | | + + + + + + | MCHC | 34.8 | 32.0 - 35.5 | EXTERNAL | | | | | g/dL | LAB | | + + + + + + | RDW-CV | 48.1 | 37 - 53 fl | EXTERNAL | | | | | | LAB | | + + + + + + | Platelet | 289 | 150 - 400 K/uL | EXTERNAL | | | Count | | | LAB | | | Plasma | | | | | + + + + + + | MPV | 8.8 | fl | EXTERNAL | | | | | | LAB | | + + + + + + | Differentia | AUTOMATED | | EXTERNAL | | | l Type | | | LAB | | + + + + + + | % Segmented | 74.69 | % | EXTERNAL | | | | | | LAB | | | Neutrophils | | | | | + + + + + + | % | 12.83 | % | EXTERNAL | | | Lymphocytes | | | LAB | | + + + + + + | % Monocytes | 10.82 | % | EXTERNAL | | | | | | LAB | | + + + + + + | % | 1.02 | % | EXTERNAL | | | Eosinophils | | | LAB | | + + + + + + | % Basophils | 0.64 | % | EXTERNAL | | | | | | LAB | | + + + + + + | Absolute | 4.55 | 1.90 - 7.40 | EXTERNAL | | | Segmented | | K/uL | LAB | | | Neutrophils | | | | | + + + + + + | Absolute | 0.78 (L) | 1.00 - 3.90 | EXTERNAL | | | Lymphocytes | | K/uL | LAB | | + + + + + + | Absolute | 0.66 | 0.00 - 0.80 | EXTERNAL | | | Monocytes | | K/uL | LAB | | + + + + + + | Absolute | 0.06 | 0.00 - 0.50 | EXTERNAL | | | Eosinophils | | K/uL | LAB | | + + + + + + | Absolute | 0.04Comment: Testing | 0.00 - 0.10 | EXTERNAL | | | Basophils | performed at [facility], [address] | K/uL | LAB | | | | [address], | | | | | | [place] [address] | | | | + + + [...] + +---------+ + + Basic Metabolic Panel (06/21/2018 5:15 AM PDT) + + + + + + | Component | Value | Ref Range | Performed | Pathologist | | | | | At | Signature | + + + + + + | Na | 139 | 135 - 145 | EXTERNAL | | | | | mmol/L | LAB | | + + + + + + | K | 3.9 | 3.5 - 4.9 | EXTERNAL | | | | | mmol/L | LAB | | + + + + + + | Cl | 104 | 99 - 109 mmol/L | EXTERNAL | | | | | | LAB | | + + + + + + | CO2 | 28 | 23 - 32 mmol/L | EXTERNAL | | | | | | LAB | | + + + + + + | Anion Gap | 11 | 5 - 20 mmol/L | EXTERNAL | | | | | | LAB | | + + + + + + | Glucose, | 91 | 65 - 99 mg/dL | EXTERNAL | | | Fasting | | | LAB | | + + + + + + | BUN | 20 | 8 - 25 mg/dL | EXTERNAL | | | | | | LAB | | + + + + + + | Creatinine | 0.7 | 0.70 - 1.30 | EXTERNAL | | | | | mg/dL | LAB | | + + + + + + | BUN/Creatin | 29 | | EXTERNAL | | | ine Ratio | | | LAB | | + + + + + + | Calcium | 8.9 | 8.5 - 10.5 | EXTERNAL | | | | | mg/dL | LAB | | + + + + + [...] BY | | | | | | 1.210.This eGFR is | | | | | | calculated using the | | | | | | MDRD IDMS traceable | | | | | | equation.Testing | | | | | | performed at [facility], [address] | | | | | | [facility], | | | | | | [place] [address] | | | | + + + [...] + +---------+ + + External Lab: CBC (06/20/2018 4:44 AM PDT) + + + + + + | Component | Value | Ref Range | Performed | Pathologist | | | | | At | Signature | + + + + + + | WBC | 5.13 | 3.80 - 11.00 | EXTERNAL | | | | | K/uL | LAB | | + + + + + + | RED CELL | 3.44 (L) | 4.20 - 5.70 | EXTERNAL | | | COUNT | | M/uL | LAB | | + + + + + + | Hgb | 12.2 (L) | 13.2 - 17.0 | EXTERNAL | | | | | g/dL | LAB | | + + + + + + | Hematocrit, | 35.1 (L) | 39.0 - 50.0 % | EXTERNAL | | | POC | | | LAB | | + + + + + + | MCV | 101.8 (H) | 80.0 - 100.0 fl | EXTERNAL | | | | | | LAB | | + + + + + + | MCH | 35.3 (H) | 27.0 - 34.0 pg | EXTERNAL | | | | | | LAB | | + + + + + + | MCHC | 34.7 | 32.0 - 35.5 | EXTERNAL | | | | | g/dL | LAB | | + + + + + + | RDW-CV | 48.1 | 37 - 53 fl | EXTERNAL | | | | | | LAB | | + + + + + + | Platelet | 307 | 150 - 400 K/uL | EXTERNAL | | | Count | | | LAB | | | Plasma | | | | | + + + + + + | MPV | 8.8 | fl | EXTERNAL | | | | | | LAB | | + + + + + + | Differentia | AUTOMATED | | EXTERNAL | | | l Type | | | LAB | | + + + + + + | % Segmented | 69.28 | % | EXTERNAL | | | | | | LAB | | | Neutrophils | | | | | + + + + + + | % | 16.97 | % | EXTERNAL | | | Lymphocytes | | | LAB | | + + + + + + | % Monocytes | 11.62 | % | EXTERNAL | | | | | | LAB | | + + + + + + | % | 1.29 | % | EXTERNAL | | | Eosinophils | | | LAB | | + + + + + + | % Basophils | 0.84 | % | EXTERNAL | | | | | | LAB | | + + + + + + | Absolute | 3.56 | 1.90 - 7.40 | EXTERNAL | | | Segmented | | K/uL | LAB | | | Neutrophils | | | | | + + + + + + | Absolute | 0.87 (L) | 1.00 - 3.90 | EXTERNAL | | | Lymphocytes | | K/uL | LAB | | + + + + + + | Absolute | 0.60 | 0.00 - 0.80 | EXTERNAL | | | Monocytes | | K/uL | LAB | | + + + + + + | Absolute | 0.07 | 0.00 - 0.50 | EXTERNAL | | | Eosinophils | | K/uL | LAB | | + + + + + + | Absolute | 0.04Comment: Testing | 0.00 - 0.10 | EXTERNAL | | | Basophils | performed at [facility], [address] | K/uL | LAB | | | | [address], | | | | | | [place] [address] | | | | + + + [...] + +---------+ + + Basic Metabolic Panel (06/20/2018 4:44 AM PDT) + + + + + + | Component | Value | Ref Range | Performed | Pathologist | | | | | At | Signature | + + + + + + | Na | 140 | 135 - 145 | EXTERNAL | | | | | mmol/L | LAB | | + + + + + + | K | 4.0 | 3.5 - 4.9 | EXTERNAL | | | | | mmol/L | LAB | | + + + + + + | Cl | 104 | 99 - 109 mmol/L | EXTERNAL | | | | | | LAB | | + + + + + + | CO2 | 28 | 23 - 32 mmol/L | EXTERNAL | | | | | | LAB | | + + + + + + | Anion Gap | 12 | 5 - 20 mmol/L | EXTERNAL | | | | | | LAB | | + + + + + + | Glucose, | 98 | 65 - 99 mg/dL | EXTERNAL | | | Fasting | | | LAB | | + + + + + + | BUN | 23 | 8 - 25 mg/dL | EXTERNAL | | | | | | LAB | | + + + + + + | Creatinine | 0.7 | 0.70 - 1.30 | EXTERNAL | | | | | mg/dL | LAB | | + + + + + + | BUN/Creatin | 33 | | EXTERNAL | | | ine Ratio | | | LAB | | + + + + + + | Calcium | 9.0 | 8.5 - 10.5 | EXTERNAL | | | | | mg/dL | LAB | | + + + + + [...] BY | | | | | | 1.210.This eGFR is | | | | | | calculated using the | | | | | | MDRD IDMS traceable | | | | | | equation.Testing | | | | | | performed at [facility], [address] | | | | | | [facility], | | | | | | [place] [address] | | | | + + + [...] + +---------+ + + External Lab: CBC (06/19/2018 5:16 AM PDT) + + + + + + | Component | Value | Ref Range | Performed | Pathologist | | | | | At | Signature | + + + + + + | WBC | 4.66 | 3.80 - 11.00 | EXTERNAL | | | | | K/uL | LAB | | + + + + + + | RED CELL | 3.39 (L) | 4.20 - 5.70 | EXTERNAL | | | COUNT | | M/uL | LAB | | + + + + + + | Hgb | 12.2 (L) | 13.2 - 17.0 | EXTERNAL | | | | | g/dL | LAB | | + + + + + + | Hematocrit, | 34.6 (L) | 39.0 - 50.0 % | EXTERNAL | | | POC | | | LAB | | + + + + + + | MCV | 101.9 (H) | 80.0 - 100.0 fl | EXTERNAL | | | | | | LAB | | + + + + + + | MCH | 35.9 (H) | 27.0 - 34.0 pg | EXTERNAL | | | | | | LAB | | + + + + + + | MCHC | 35.2 | 32.0 - 35.5 | EXTERNAL | | | | | g/dL | LAB | | + + + + + + | RDW-CV | 47.7 | 37 - 53 fl | EXTERNAL | | | | | | LAB | | + + + + + + | Platelet | 272 | 150 - 400 K/uL | EXTERNAL | | | Count | | | LAB | | | Plasma | | | | | + + + + + + | MPV | 8.1 | fl | EXTERNAL | | | | | | LAB | | + + + + + + | Differentia | AUTOMATED | | EXTERNAL | | | l Type | | | LAB | | + + + + + + | % Segmented | 71.68 | % | EXTERNAL | | | | | | LAB | | | Neutrophils | | | | | + + + + + + | % | 14.41 | % | EXTERNAL | | | Lymphocytes | | | LAB | | + + + + + + | % Monocytes | 12.04 | % | EXTERNAL | | | | | | LAB | | + + + + + + | % | 1.30 | % | EXTERNAL | | | Eosinophils | | | LAB | | + + + + + + | % Basophils | 0.57 | % | EXTERNAL | | | | | | LAB | | + + + + + + | Absolute | 3.34 | 1.90 - 7.40 | EXTERNAL | | | Segmented | | K/uL | LAB | | | Neutrophils | | | | | + + + + + + | Absolute | 0.67 (L) | 1.00 - 3.90 | EXTERNAL | | | Lymphocytes | | K/uL | LAB | | + + + + + + | Absolute | 0.56 | 0.00 - 0.80 | EXTERNAL | | | Monocytes | | K/uL | LAB | | + + + + + + | Absolute | 0.06 | 0.00 - 0.50 | EXTERNAL | | | Eosinophils | | K/uL | LAB | | + + + + + + | Absolute | 0.03Comment: Testing | 0.00 - 0.10 | EXTERNAL | | | Basophils | performed at [facility] | [address]/u[address] | LAB | | | | [address];[place], [place] | | | | | | [address] | | | | + + + [...] + +---------+ + + Basic Metabolic Panel (06/19/2018 5:16 AM PDT) + + + + + + | Component | Value | Ref Range | Performed | Pathologist | | | | | At | Signature | + + + + + + | Na | 138 | 135 - 145 | EXTERNAL | | | | | mmol/L | LAB | | + + + + + + | K | 3.9 | 3.5 - 4.9 | EXTERNAL | | | | | mmol/L | LAB | | + + + + + + | Cl | 107 | 99 - 109 mmol/L | EXTERNAL | | | | | | LAB | | + + + + + + | CO2 | 26 | 23 - 32 mmol/L | EXTERNAL | | | | | | LAB | | + + + + + + | Anion Gap | 9 | 5 - 20 mmol/L | EXTERNAL | | | | | | LAB | | + + + + + + | Glucose, | 101 (H) | 65 - 99 mg/dL | EXTERNAL | | | Fasting | | | LAB | | + + + + + + | BUN | 18 | 8 - 25 mg/dL | EXTERNAL | | | | | | LAB | | + + + + + + | Creatinine | 0.6 (L) | 0.70 - 1.30 | EXTERNAL | | | | | mg/dL | LAB | | + + + + + + | BUN/Creatin | 30 | | EXTERNAL | | | ine Ratio | | | LAB | | + + + + + + | Calcium | 8.8 | 8.5 - 10.5 | EXTERNAL | | | | | mg/dL | LAB | | + + + + + [...] BY | | | | | | 1.210.This eGFR is | | | | | | calculated using the | | | | | | MDRD IDMS traceable | | | | | | equation.Testing | | | | | | performed at [facility], [address] | | | | | | [facility], | | | | | | [place] [address] | | | | + + + [...] + +---------+ + + External Lab: CBC (06/18/2018 5:46 AM PDT) + + + + + + | Component | Value | Ref Range | Performed | Pathologist | | | | | At | Signature | + + + + + + | WBC | 6.76 | 3.80 - 11.00 | EXTERNAL | | | | | K/uL | LAB | | + + + + + + | RED CELL | 3.64 (L) | 4.20 - 5.70 | EXTERNAL | | | COUNT | | M/uL | LAB | | + + + + + + | Hgb | 12.7 (L) | 13.2 - 17.0 | EXTERNAL | | | | | g/dL | LAB | | + + + + + + | Hematocrit, | 36.0 (L) | 39.0 - 50.0 % | EXTERNAL | | | POC | | | LAB | | + + + + + + | MCV | 98.8 | 80.0 - 100.0 fl | EXTERNAL | | | | | | LAB | | + + + + + + | MCH | 34.8 (H) | 27.0 - 34.0 pg | EXTERNAL | | | | | | LAB | | + + + + + + | MCHC | 35.2 | 32.0 - 35.5 | EXTERNAL | | | | | g/dL | LAB | | + + + + + + | RDW-CV | 47.7 | 37 - 53 fl | EXTERNAL | | | | | | LAB | | + + + + + + | Platelet | 285 | 150 - 400 K/uL | EXTERNAL | | | Count | | | LAB | | | Plasma | | | | | + + + + + + | MPV | 8.3 | fl | EXTERNAL | | | | | | LAB | | + + + + + + | Differentia | AUTOMATED | | EXTERNAL | | | l Type | | | LAB | | + + + + + + | % Segmented | 75.83 | % | EXTERNAL | | | | | | LAB | | | Neutrophils | | | | | + + + + + + | % | 10.77 | % | EXTERNAL | | | Lymphocytes | | | LAB | | + + + + + + | % Monocytes | 12.01 | % | EXTERNAL | | | | | | LAB | | + + + + + + | % | 0.85 | % | EXTERNAL | | | Eosinophils | | | LAB | | + + + + + + | % Basophils | 0.54 | % | EXTERNAL | | | | | | LAB | | + + + + + + | Absolute | 5.13 | 1.90 - 7.40 | EXTERNAL | | | Segmented | | K/uL | LAB | | | Neutrophils | | | | | + + + + + + | Absolute | 0.73 (L) | 1.00 - 3.90 | EXTERNAL | | | Lymphocytes | | K/uL | LAB | | + + + + + + | Absolute | 0.81 (H) | 0.00 - 0.80 | EXTERNAL | | | Monocytes | | K/uL | LAB | | + + + + + + | Absolute | 0.06 | 0.00 - 0.50 | EXTERNAL | | | Eosinophils | | K/uL | LAB | | + + + + + + | Absolute | 0.04Comment: Testing | 0.00 - 0.10 | EXTERNAL | | | Basophils | performed at [facility];[address] | [address] | LAB | | | | [address];[place], [place] | | | | | | [address] | | | | + + + [...] + +---------+ + + Basic Metabolic Panel (06/18/2018 5:46 AM PDT) + + + + + + | Component | Value | Ref Range | Performed | Pathologist | | | | | At | Signature | + + + + + + | Na | 137 | 135 - 145 | EXTERNAL | | | | | mmol/L | LAB | | + + + + + + | K | 3.9 | 3.5 - 4.9 | EXTERNAL | | | | | mmol/L | LAB | | + + + + + + | Cl | 104 | 99 - 109 mmol/L | EXTERNAL | | | | | | LAB | | + + + + + + | CO2 | 24 | 23 - 32 mmol/L | EXTERNAL | | | | | | LAB | | + + + + + + | Anion Gap | 13 | 5 - 20 mmol/L | EXTERNAL | | | | | | LAB | | + + + + + + | Glucose, | 99 | 65 - 99 mg/dL | EXTERNAL | | | Fasting | | | LAB | | + + + + + + | BUN | 16 | 8 - 25 mg/dL | EXTERNAL | | | | | | LAB | | + + + + + + | Creatinine | 0.6 (L) | 0.70 - 1.30 | EXTERNAL | | | | | mg/dL | LAB | | + + + + + + | BUN/Creatin | 27 | | EXTERNAL | | | ine Ratio | | | LAB | | + + + + + + | Calcium | 8.6 | 8.5 - 10.5 | EXTERNAL | | | | | mg/dL | LAB | | + + + + + [...] BY | | | | | | 1.210.This eGFR is | | | | | | calculated using the | | | | | | MDRD IDMS traceable | | | | | | equation.Testing | | | | | | performed at [facility], [address] | | | | | | [facility] [address], | | | | | | [place] [address] | | | | + + + + + + + + | Specimen | + + | Blood specimen | | (specimen) | + + + +---------+ + + | Performing | Address | City/State/Zipcode | Phone Number | | Organization | | | | + +---------+ + + | EXTERNAL LAB | | | | + +---------+ + + POC Glucose (06/18/2018 5:17 AM PDT) + + + + + + | Component | Value | Ref Range | Performed | Pathologist | | | | | At | Signature | + + + + + + | Glucose, | 105 (H)Comment: Testing | 65 - 99 mg/dL | EXTERNAL | | | Fingerstick | performed at [facility] | | LAB | | | | [address];[place], [place] | | | | | | [address] | | | | + + + + + + + + | Specimen | + + | | + + + +---------+ + + | Performing | Address | City/State/Zipcode | Phone Number | | Organization | | | | + +---------+ + + | EXTERNAL LAB | | | | + +---------+ + + POC Glucose (06/17/2018 9:19 PM PDT) + + + + + + | Component | Value | Ref Range | Performed | Pathologist | | | | | At | Signature | + + + + + + | Glucose, | 105 (H)Comment: Testing | 65 - 99 mg/dL | EXTERNAL | | | Fingerstick | performed at [facility];[address] | | LAB | | | | [address];[place] | | | | | | [address] | | | | + + + + + + + + | Specimen | + + | | + + + +---------+ + + | Performing | Address | City/State/Zipcode | Phone Number | | Organization | | | | + +---------+ + + | EXTERNAL LAB | | | | + +---------+ + + HISTORICAL MICROBIOLOGY RESULT (06/17/2018 5:56 PM PDT) + + | Specimen | + + | | + + + + + | Narrative | Performed At | + + + | [facility] ANTIGEN NEGATIVE TOXIN A | EXTERNAL LAB | | NEGATIVE C DIFF | | | INTERPRETATION Negative for toxigenic C.difficile. | | | Testing performed at [facility] [place] [address];[place] [address] | | + + + + +---------+ + + | Performing | Address | City/State/Zipcode | Phone Number | | Organization | | | | + +---------+ + + | EXTERNAL LAB | | | | + +---------+ + + POC Glucose (06/17/2018 4:16 PM PDT) + + + + + + | Component | Value | Ref Range | Performed | Pathologist | | | | | At | Signature | + + + + + + | Glucose, | 127 (H)Comment: Testing | 65 - 99 mg/dL | EXTERNAL | | | Fingerstick | performed at [facility];[address] | | LAB | | | | [address];[place] | | | | | | [address] | | | | + + + + + + + + | Specimen | + + | | + + + +---------+ + + | Performing | Address | City/State/Zipcode | Phone Number | | Organization | | | | + +---------+ + + | EXTERNAL LAB | | | | + +---------+ + + CT Head wo Contrast (06/17/2018 12:35 PM PDT) + + | Specimen | + + | | + + + + + | Impressions | Performed At | + + + | 1. No acute intracranial findings. 2. Stable, noncalcified cortical | | | lesion measuring 1.6 x 1.4 cm in the posterior aspect of the left | | | superior frontal gyrus stable since 06/09/2018. See above discussion | | | for differential diagnosis. If not already done, neurosurgical | | | consultation is recommended as this could certainly represent a | | | seizure focus. Correlation with EEG findings is suggested. 3. Stable | | | appearance of the area of chronic diffuse gliosis in the anterior | | | left frontal lobe white matter. 4. Moderate diffuse cerebral atrophy | | | likely due to longstanding ethanol abuse. 5. Stable 4 mm focus of | | | calcification located at the medial left parieto-occipital junction | | | suggests an old cortical calcification due to an old ischemic injury | | | versus solitary focus of neurocysticercosis. Signed by: Krystle | | | James Sign Date/Time: 06/17/2018 1:05 PM | | + + + + + + | Narrative | Performed At | + + + | CT HEAD WITHOUT CONTRAST CLINICAL INFORMATION: Head injury. | | | COMPARISON: MRI BRAIN W WO CONTRAST (06/16/2018); MRI BRAIN W WO | | | CONTRAST (06/10/2018); MRHEAD (06/09/2018); PROCEDURE: Axial images | | | were obtained through the head without IV contrast. Multiplanar | | | reformations were obtained from the acquisition data. At least one of | | | the following CT dose optimization techniques were used: Automated | | | exposure control; Adjustment of mA and/or kV according to patient | | | size; Use of iterative reconstruction technique. FINDINGS: Brain: A | | | focal area of low attenuation is again seen in the posterior aspect | | | of the left superior frontal gyrus measuring 1.6 x 1.4 cm in the AP | | | and transverse dimensions, image 29 series 2. The lesion shows no | | | evidence of calcification. Lesion appears to be within the brain | | | parenchyma itself and does not appear to be extra-axial. This finding | | | is nonspecific with a differential diagnosis including focal cortical | | | dysplasia, neoplasm (including metastatic lesion without enhancement | | | due to internal hemorrhage), primary brain cortical neoplasm. The | | | lack of any surrounding vasogenic edema argues against a cerebral | | | abscess. A 4 mm calcification is seen in the medial left | | | parieto-occipital junction, image 19 series 2. This could represent | | | a solitary focus of neurocysticercosis versus dystrophic | | | calcification from prior ischemic injury in this area. Diffuse | | | gliosis is seen in the anterior left frontal lobe white matter, | | | unchanged from the previous exam. CSF spaces: The ventricles, | | | cisterns and sulci are markedly enlarged indicating moderate diffuse | | | cortical atrophy. This is similar to previous exams and is likely due | | | to the patient's longstanding history of ethanol abuse. No | | | extra-axial fluid collections are noted. Paranasal sinuses and | | | mastoid air cells: Normal. Calvarium and extracranial soft tissues: | | | Normal. Orbits: Imaged portions of the orbits are normal. | | + + + + + | Procedure Note | + + | Frederic, Rad Conversion - 11/07/2018 10:[address] HEAD WITHOUT CONTRAST | | CLINICAL INFORMATION: | | Head injury. | | COMPARISON: | | MRI BRAIN W WO CONTRAST (06/16/2018); MRI BRAIN W WO CONTRAST | | (06/10/2018); MRHEAD (06/09/2018); | | PROCEDURE: | | Axial images were obtained through the head without IV contrast. | | Multiplanar reformations were obtained from the acquisition data. | | At least one of the following CT dose optimization techniques were | | used: Automated exposure control; Adjustment of mA and/or kV according | | to patient size; Use of iterative reconstruction technique. | | FINDINGS: | | Brain: A focal area of low attenuation is again seen in the posterior | | aspect of the left superior frontal gyrus measuring 1.6 x 1.4 cm in the | | AP and transverse dimensions, image 29 series 2. The lesion shows no | | evidence of calcification. Lesion appears to be within the brain | | parenchyma itself and does not appear to be extra-axial. This finding | | is nonspecific with a differential diagnosis including focal cortical | | dysplasia, neoplasm (including metastatic lesion without enhancement | | due to internal hemorrhage), primary brain cortical neoplasm. The lack | | of any surrounding vasogenic edema argues against a cerebral abscess. | | A 4 mm calcification is seen in the medial left parieto-occipital | | junction, image 19 series 2. This could represent a solitary focus of | | neurocysticercosis versus dystrophic calcification from prior ischemic | | injury in this area. Diffuse gliosis is seen in the anterior left | | frontal lobe white matter, unchanged from the previous exam. | | CSF spaces: The ventricles, cisterns and sulci are markedly enlarged | | indicating moderate diffuse cortical atrophy. This is similar to | | previous exams and is likely due to the patient's longstanding history | | of ethanol abuse. No extra-axial fluid collections are noted. | | Paranasal sinuses and mastoid air cells: Normal. | | Calvarium and extracranial soft tissues: Normal. | | Orbits: Imaged portions of the orbits are normal. | | IMPRESSION: | | 1. No acute intracranial findings. | | 2. Stable, noncalcified cortical lesion measuring 1.6 x 1.4 cm in the | | posterior aspect of the left superior frontal gyrus stable since | | 06/09/2018. See above discussion for differential diagnosis. If not | | already done, neurosurgical consultation is recommended as this could | | certainly represent a seizure focus. Correlation with EEG findings is | | suggested. | | 3. Stable appearance of the area of chronic diffuse gliosis in the | | anterior left frontal lobe white matter. | | 4. Moderate diffuse cerebral atrophy likely due to longstanding ethanol | | abuse. | | 5. Stable 4 mm focus of calcification located at the medial left | | parieto-occipital junction suggests an old cortical calcification due | | to an old ischemic injury versus solitary focus of neurocysticercosis. | | Signed by: James Dalton | | Sign Date/Time: 06/17/2018 1:05 PM | + + POC Glucose (06/17/2018 5:43 AM PDT) + + + + + + | Component | Value | Ref Range | Performed | Pathologist | | | | | At | Signature | + + + + + + | Glucose, | 85Comment: Testing | 65 - 99 mg/dL | EXTERNAL | | | Fingerstick | performed at [facility] [place] | [facility] | | | | [address];[place], [place] | | | | | | [id number] | | | | + + + + + + + + | Specimen | + + | | + + + +---------+ + + | Performing | Address | City/State/Zipcode | Phone Number | | Organization | | | | + +---------+ + + | EXTERNAL LAB | | | | + +---------+ + + External Lab: CBC (06/17/2018 4:57 AM PDT) + + + + + + | Component | Value | Ref Range | Performed | Pathologist | | | | | At | Signature | + + + + + + | WBC | 4.71 | 3.80 - 11.00 | EXTERNAL | | | | | K/uL | LAB | | + + + + + + | RED CELL | 3.49 (L) | 4.20 - 5.70 | EXTERNAL | | | COUNT | | M/uL | LAB | | + + + + + + | Hgb | 12.5 (L) | 13.2 - 17.0 | EXTERNAL | | | | | g/dL | LAB | | + + + + + + | Hematocrit, | 35.0 (L) | 39.0 - 50.0 % | EXTERNAL | | | POC | | | LAB | | + + + + + + | MCV | 100.1 (H) | 80.0 - 100.0 fl | EXTERNAL | | | | | | LAB | | + + + + + + | MCH | 35.7 (H) | 27.0 - 34.0 pg | EXTERNAL | | | | | | LAB | | + + + + + + | MCHC | 35.6 (H) | 32.0 - 35.5 | EXTERNAL | | | | | g/dL | LAB | | + + + + + + | RDW-CV | 47.3 | 37 - 53 fl | EXTERNAL | | | | | | LAB | | + + + + + + | Platelet | 284 | 150 - 400 K/uL | EXTERNAL | | | Count | | | LAB | | | Plasma | | | | | + + + + + + | MPV | 9.0 | fl | EXTERNAL | | | | | | LAB | | + + + + + + | Differentia | AUTOMATED | | EXTERNAL | | | l Type | | | LAB | | + + + + + + | % Segmented | 68.51 | % | EXTERNAL | | | | | | LAB | | | Neutrophils | | | | | + + + + + + | % | 16.20 | % | EXTERNAL | | | Lymphocytes | | | LAB | | + + + + + + | % Monocytes | 14.11 | % | EXTERNAL | | | | | | LAB | | + + + + + + | % | 0.81 | % | EXTERNAL | | | Eosinophils | | | LAB | | + + + + + + | % Basophils | 0.37 | % | EXTERNAL | | | | | | LAB | | + + + + + + | Absolute | 3.23 | 1.90 - 7.40 | EXTERNAL | | | Segmented | | K/uL | LAB | | | Neutrophils | | | | | + + + + + + | Absolute | 0.76 (L) | 1.00 - 3.90 | EXTERNAL | | | Lymphocytes | | K/uL | LAB | | + + + + + + | Absolute | 0.67 | 0.00 - 0.80 | EXTERNAL | | | Monocytes | | K/uL | LAB | | + + + + + + | Absolute | 0.04 | 0.00 - 0.50 | EXTERNAL | | | Eosinophils | | K/uL | LAB | | + + + + + + | Absolute | 0.02Comment: Testing | 0.00 - 0.10 | EXTERNAL | | | Basophils | performed at [facility], [address] | K/uL | LAB | | | | [address], | | | | | | [place] [address] | | | | + + + + + + + + | Specimen | + + | Blood specimen | | (specimen) | + + + +---------+ + + | Performing | Address | City/State/Zipcode | Phone Number | | Organization | | | | + +---------+ + + | EXTERNAL LAB | | | | + +---------+ + + TSH (06/17/2018 4:57 AM PDT) + + + + + + | Component | Value | Ref Range | Performed | Pathologist | | | | | At | Signature | + + + + + + | TSI | 1.360Comment: Testing | 0.450 - 5.100 | EXTERNAL | | | | performed at [facility], [address] | uIU/mL | LAB | | | | [address], | | | | | | [place] [address] | | | | + + + + + + + + | Specimen | + + | Blood specimen | | (specimen) | + + + +---------+ + + | Performing | Address | City/State/Zipcode | Phone Number | | Organization | | | | + +---------+ + + | EXTERNAL LAB | | | | + +---------+ + + Hemoglobin A1C (06/17/2018 4:57 AM PDT) + + + + + + | Component | Value | Ref Range | Performed | Pathologist | | | | | At | Signature | + + + + + + | Hemoglobin | 5.1Comment: HbA1c method | 4.0 - 6.0 % | EXTERNAL | | | A1c | is certified by NGSP | | LAB | | | | and traceable to the | | | | | | DCCT reference | | | | | | method.ADA guidelines | | | | | | indicate: | | | | | | Prediabetes: 5.7 - 6.4 | | | | | | Diabetes: >6.4 | | | | | | Glycemic control for | | | | | | adults with diabetes: | | | | | | <7.0Effective 04/12/2018: | | | | | | Note New Method | | | | + + + + + + | Glycohemogl | 100Comment: Estimated | mg/dL | EXTERNAL | | | obin | Average Glucose | | LAB | | | (GHb),Total | calculated from | | | | | | hemoglobin A1c by use of | | | | | | the ADA recommended | | | | | | formula.Testing | | | | | | performed at [facility], [address] | | | | | | [facility], | | | | | | [place] [address] | | | | + + + + + + + + | Specimen | + + | Blood specimen | | (specimen) | + + + +---------+ + + | Performing | Address | City/State/Zipcode | Phone Number | | Organization | | | | + +---------+ + + | EXTERNAL LAB | | | | + +---------+ + + Lipid Panel (06/17/2018 4:57 AM PDT) + + + + + + | Component | Value | Ref Range | Performed | Pathologist | | | | | At | Signature | + + + + + + | Cholesterol | 170 | mg/dL | EXTERNAL | | | | | | LAB | | + + + + + + | Triglycerid | 165 (H) | mg/dL | EXTERNAL | | | es | | | LAB | | + + + + + + | HDL | 30 (L) | mg/dL | EXTERNAL | | | | | | LAB | | + + + + + + | LDL | 107 (H)Comment: Testing | mg/dL | EXTERNAL | | | Cholesterol | performed at [facility], [address] | | LAB | | | , | [address], | | | | | Calculated, | [place] [address] | | | | | External | | | | | + + [...] + +---------+ + + Basic Metabolic Panel (06/17/2018 4:57 AM PDT) + + + + + + | Component | Value | Ref Range | Performed | Pathologist | | | | | At | Signature | + + + + + + | Na | 136 | 135 - 145 | EXTERNAL | | | | | mmol/L | LAB | | + + + + + + | K | 3.9 | 3.5 - 4.9 | EXTERNAL | | | | | mmol/L | LAB | | + + + + + + | Cl | 101 | 99 - 109 mmol/L | EXTERNAL | | | | | | LAB | | + + + + + + | CO2 | 26 | 23 - 32 mmol/L | EXTERNAL | | | | | | LAB | | + + + + + + | Anion Gap | 13 | 5 - 20 mmol/L | EXTERNAL | | | | | | LAB | | + + + + + + | Glucose, | 84 | 65 - 99 mg/dL | EXTERNAL | | | Fasting | | | LAB | | + + + + + + | BUN | 16 | 8 - 25 mg/dL | EXTERNAL | | | | | | LAB | | + + + + + + | Creatinine | 0.6 (L) | 0.70 - 1.30 | EXTERNAL | | | | | mg/dL | LAB | | + + + + + + | BUN/Creatin | 27 | | EXTERNAL | | | ine Ratio | | | LAB | | + + + + + + | Calcium | 8.3 (L) | 8.5 - 10.5 | EXTERNAL | | | | | mg/dL | LAB | | + + + + + [...] BY | | | | | | 1.210.This eGFR is | | | | | | calculated using the | | | | | | MDRD IDMS traceable | | | | | | equation.Testing | | | | | | performed at [facility], [address] | | | | | | [address], | | | | | | [place] [address] | | | | + + + + + + + + | Specimen | + + | Blood specimen | | (specimen) | + + + +---------+ + + | Performing | Address | City/State/Zipcode | Phone Number | | Organization | | | | + +---------+ + + | EXTERNAL LAB | | | | + +---------+ + + POC Glucose (06/16/2018 9:34 PM PDT) + + + + + + | Component | Value | Ref Range | Performed | Pathologist | | | | | At | Signature | + + + + + + | Glucose, | 82Comment: Testing | 65 - 99 mg/dL | EXTERNAL | | | Fingerstick | performed at [facility] | | LAB | | | | [address];[place], [place] | | | | | | [address] | | | | + + + + + + + + | Specimen | + + | | + + + +---------+ + + | Performing | Address | City/State/Zipcode | Phone Number | | Organization | | | | + +---------+ + + | EXTERNAL LAB | | | | + +---------+ + + MRI Brain w wo Contrast (06/16/2018 5:22 PM PDT) + + | Specimen | + + | | + + + + + | Impressions | Performed At | + + + | 1. Stable, nonenhancing cortical lesion measuring 1.7 x 1.4 cm in | | | the posterior aspect of the left superior frontal gyrus stable since | | | 06/09/2018. See above discussion for differential diagnosis. If | | | not already done, neurosurgical consultation is recommended as this | | | could certainly represent a seizure focus. Correlation with EEG | | | findings is suggested. 2. Stable appearance of the area of chronic | | | diffuse gliosis in the anterior left frontal lobe white matter. 3. | | | Moderate diffuse cerebral atrophy likely due to longstanding ethanol | | | abuse. 4. Previously seen areas of restricted diffusion noted in the | | | left temporal lobe and left thalamus on 06/09/2018 and 06/10/2018 have | | | resolved without underlying parenchymal abnormality suggesting these | | | were likely postictal in nature. 5. Previously seen punctate focus | | | of restricted diffusion in the right occipital lobe has resolved with | | | no underlying signal abnormality seen in that area on the other | | | sequences. 6. Stable 4.6 mm focus of low signal on the T2*GRE | | | sequence located at the medial left parieto-occipital junction | | | suggests an old cortical calcification or focus of chronic | | | hemosiderin deposition due to an old ischemic injury. Signed by: | | | ManasakushalsobeidaJames Sign Date/Time: 06/16/2018 6:19 PM | | + + + + + + | Narrative | Performed At | + + + | MRI BRAIN WITHOUT AND WITH CONTRAST CLINICAL INFORMATION: | | | Headaches and dizziness. History of rectal cancer. COMPARISON: MRI | | | BRAIN W WO CONTRAST (06/10/2018); MRHEAD (06/09/2018); CTCHEST | | | (06/09/2018); CT CHEST ABDOMEN PELVIS W CONTRAST (01/12/2015); MRI | | | ABDOMEN W WO CONTRAST (01/23/2015); PROCEDURE: Sagittal T1, axial | | | FLAIR, axial T2, axial T1, axial gradient susceptibility, axial T1 | | | enhanced, coronal T1 enhanced and axial DWI. Contrast: 6 ML Gadavist | | | IV. FINDINGS: Brain: The DWI sequence again shows a focal area of | | | increased signal intensity in the posterior aspect of the left | | | superior frontal gyrus measuring 1.7 x 1.4 cm in the AP and | | | transverse dimensions, image 2 series 7. The increased DWI signal | | | intensity appears to be due to T2 shine through rather than acutely | | | restricted diffusion as the ADC map does not appear particularly | | | dark. The mass is isointense on T1, shows central hyperintensity on | | | the T2 and FLAIR sequences but does not show significant | | | calcification or hemosiderin deposition on the T2*GRE sequence. The | | | lesion does not demonstrate enhancement. Lesion appears to be | | | within the brain parenchyma itself and does not appear to be | | | extra-axial. There is no enhancing dural tail seen near the lesion. | | | This finding is nonspecific with a differential diagnosis including | | | focal cortical dysplasia, neoplasm (including metastatic lesion | | | without enhancement due to internal hemorrhage, primary brain | | | cortical neoplasm, and less likely nonenhancing calcified | | | meningioma). The lack of any surrounding vasogenic edema or rim | | | enhancement argues against a cerebral abscess. The T2*GRE sequence | | | does show a focal area of low signal intensity within the medial | | | parieto-occipital junction measuring 4.6 mm, image 12 series 5. | | | This is unchanged from the prior exam and may represent a small | | | cortical calcification or area of old hemosiderin deposition due to | | | an old ischemic injury as there does appear to be focal gliosis | | | surrounding this area on the FLAIR sequences. Diffuse gliosis is seen | | | in the anterior left frontal lobe white matter, unchanged from the | | | previous exam. The previously seen areas of restricted diffusion | | | described in the previous report on 06/10/2018 are no longer | | | visualized and were likely postictal in nature and have subsequently | | | resolved. Following contrast administration, no abnormal | | | enhancement is seen within the brain parenchyma, leptomeninges or | | | dura. CSF spaces: The ventricles, cisterns and sulci are markedly | | | enlarged indicating moderate diffuse cortical atrophy. This is | | | similar to previous exams and is likely due to the patient's | | | longstanding history of ethanol abuse. No extra-axial fluid | | | collections are noted. Orbits: Normal. CP Angles and IACs: No masses | | | are seen in the region of the cerebellopontine angles or internal | | | auditory canals. The visualized structures of the temporal bones | | | are normal. Vessels: The intracranial arteries and dural venous | | | sinuses demonstrate normal flow voids on the T2 sequences. No large | | | aneurysm or dural venous sinus thrombosis is noted. Calvarium and | | | extracranial soft tissues: Normal. Paranasal sinuses and mastoid air | | | cells: Normal. | | + + + + + | Procedure Note | + + | Frederic, Rad Conversion - 11/07/2018 10:18 PM PDT MRI BRAIN WITHOUT AND WITH CONTRAST | | CLINICAL INFORMATION: | | Headaches and dizziness. History of rectal cancer. | | COMPARISON: | | MRI BRAIN W WO CONTRAST (06/10/2018); MRHEAD (06/09/2018); CTCHEST | | (06/09/2018); CT CHEST ABDOMEN PELVIS W CONTRAST (01/12/2015); MRI | | ABDOMEN W WO CONTRAST (01/23/2015); | | PROCEDURE: | | Sagittal T1, axial FLAIR, axial T2, axial T1, axial gradient | | susceptibility, axial T1 enhanced, coronal T1 enhanced and axial DWI. | | Contrast: 6 ML Gadavist IV. | | FINDINGS: | | Brain: The DWI sequence again shows a focal area of increased signal | | intensity in the posterior aspect of the left superior frontal gyrus | | measuring 1.7 x 1.4 cm in the AP and transverse dimensions, image 2 | | series 7. The increased DWI signal intensity appears to be due to T2 | | shine through rather than acutely restricted diffusion as the ADC map | | does not appear particularly dark. The mass is isointense on T1, shows | | central hyperintensity on the T2 and FLAIR sequences but does not show | | significant calcification or hemosiderin deposition on the T2*GRE | | sequence. The lesion does not demonstrate enhancement. Lesion appears | | to be within the brain parenchyma itself and does not appear to be | | extra-axial. There is no enhancing dural tail seen near the lesion. | | This finding is nonspecific with a differential diagnosis including | | focal cortical dysplasia, neoplasm (including metastatic lesion without | | enhancement due to internal hemorrhage, primary brain cortical | | neoplasm, and less likely nonenhancing calcified meningioma). The lack | | of any surrounding vasogenic edema or rim enhancement argues against a | | cerebral abscess. The T2*GRE sequence does show a focal area of low | | signal intensity within the medial parieto-occipital junction measuring | | 4.6 mm, image 12 series 5. This is unchanged from the prior exam and | | may represent a small cortical calcification or area of old hemosiderin | | deposition due to an old ischemic injury as there does appear to be | | focal gliosis surrounding this area on the FLAIR sequences. | | Diffuse gliosis is seen in the anterior left frontal lobe white matter, | | unchanged from the previous exam. The previously seen areas of | | restricted diffusion described in the previous report on 06/10/2018 are | | no longer visualized and were likely postictal in nature and have | | subsequently resolved. Following contrast administration, no abnormal | | enhancement is seen within the brain parenchyma, leptomeninges or dura. | | CSF spaces: The ventricles, cisterns and sulci are markedly enlarged | | indicating moderate diffuse cortical atrophy. This is similar to | | previous exams and is likely due to the patient's longstanding history | | of ethanol abuse. No extra-axial fluid collections are noted. | | Orbits: Normal. | | CP Angles and IACs: No masses are seen in the region of the | | cerebellopontine angles or internal auditory canals. The visualized | | structures of the temporal bones are normal. | | Vessels: The intracranial arteries and dural venous sinuses demonstrate | | normal flow voids on the T2 sequences. No large aneurysm or dural | | venous sinus thrombosis is noted. | | Calvarium and extracranial soft tissues: Normal. | | Paranasal sinuses and mastoid air cells: Normal. | | IMPRESSION: | | 1. Stable, nonenhancing cortical lesion measuring 1.7 x 1.4 cm in the | | posterior aspect of the left superior frontal gyrus stable since | | 06/09/2018. See above discussion for differential diagnosis. If not | | already done, neurosurgical consultation is recommended as this could | | certainly represent a seizure focus. Correlation with EEG findings is | | suggested. | | 2. Stable appearance of the area of chronic diffuse gliosis in the | | anterior left frontal lobe white matter. | | 3. Moderate diffuse cerebral atrophy likely due to longstanding ethanol | | abuse. | | 4. Previously seen areas of restricted diffusion noted in the left | | temporal lobe and left thalamus on 06/09/2018 and 06/10/2018 have | | resolved without underlying parenchymal abnormality suggesting these | | were likely postictal in nature. | | 5. Previously seen punctate focus of restricted diffusion in the right | | occipital lobe has resolved with no underlying signal abnormality seen | | in that area on the other sequences. | | 6. Stable 4.6 mm focus of low signal on the T2*GRE sequence located at | | the medial left parieto-occipital junction suggests an old cortical | | calcification or focus of chronic hemosiderin deposition due to an old | | ischemic injury. | | Signed by: James Dalton | | Sign Date/Time: 06/16/2018 6:19 PM | + + POC Glucose (06/16/2018 4:20 PM PDT) + + + + + + | Component | Value | Ref Range | Performed | Pathologist | | | | | At | Signature | + + + + + + | Glucose, | 83Comment: Testing | 65 - 99 mg/dL | EXTERNAL | | | Fingerstick | performed at [facility] | | LAB | | | | [address];[place] | | | | | | [address] | | | | + + + + + + + + | Specimen | + + | | + + + +---------+ + + | Performing | Address | City/State/Zipcode | Phone Number | | Organization | | | | + +---------+ + + | EXTERNAL LAB | | | | + +---------+ + + ECHO Complete (06/16/2018 4:18 PM PDT) + + | Specimen | + + | | + + + + + | Impressions | Performed At | + + + | 1. Sinus rhythm. 2. A 2-dimensional transthoracic echocardiogram | | | with m-mode, spectral and color flow Doppler was perfomed. 3. This | | | was a technically difficult study secondary to patient cooperation. | | | Exam terminated at patient request. 4. Overall left ventricular | | | systolic function is mildly impaired with, an EF between 45 - 50 %. | | | 5. The left ventricle cavity size is normal. 6. There is mild | | | concentric left ventricular hypertrophy. 7. The right ventricle is | | | normal in size. 8. The left atrium is moderately dilated. 9. The | | | right atrial size is normal. 10. The aortic valve was not well | | | visualized. 11. There is mild aortic regurgitation. 12. There is no | | | evidence of aortic stenosis. 13. The mitral valve was not well | | | visualized. 14. Mild mitral regurgitation is present. 15. , | | | predominately a posteriorly directed jet. 16. Mild mitral annular | | | calcification present. 17. The tricuspid valve was not well | | | visualized. 18. Trace tricuspid regurgitation present. 19. Pulmonary | | | artery systolic pressure could not be assessed due to the absence of | | | adequate TR jet. 20. The pulmonic valve was not well visualized. 21. | | | There is no pericardial effusion. 22. The IVC could not be | | | visualized at patient request. 23. The aortic root, ascending aorta | | | and aortic arch are normal. 24. No mass visualized 25. No ASD | | | observed. 26. No VSD observed. | | + + + + + + | Narrative | Performed At | + + + | Patient Name: JOSE EATON Date of : 1950 | | | Performing Physician: Torsten Mckeon | | | | | | INDICATIONS CVA; STUPOR; ETOH ABUSE; ACUTE RESPIRATORY | | | FAILURE WITH HYPOXIA; POSTICTAL STATE; ALTERED MENTAL STATUS; SEIZURES | | | CONCLUSIONS 1. Sinus rhythm. 2. A 2-dimensional | | | transthoracic echocardiogram with m-mode, spectral and color flow | | | Doppler was perfomed. 3. This was a technically difficult study | | | secondary to patient cooperation. Exam terminated at patient | | | request. 4. Overall left ventricular systolic function is mildly | | | impaired with, an EF between 45 - 50 %. 5. The left ventricle cavity | | | size is normal. 6. There is mild concentric left ventricular | | | hypertrophy. 7. The right ventricle is normal in size. 8. The left | | | atrium is moderately dilated. 9. The right atrial size is normal. | | | 10. The aortic valve was not well visualized. 11. There is mild | | | aortic regurgitation. 12. There is no evidence of aortic stenosis. | | | 13. The mitral valve was not well visualized. 14. Mild mitral | | | regurgitation is present. 15. , predominately a posteriorly directed | | | jet. 16. Mild mitral annular calcification present. 17. The | | | tricuspid valve was not well visualized. 18. Trace tricuspid | | | regurgitation present. 19. Pulmonary artery systolic pressure could | | | not be assessed due to the absence of adequate TR jet. 20. The | | | pulmonic valve was not well visualized. 21. There is no pericardial | | | effusion. 22. The IVC could not be visualized at patient request. | | | 23. The aortic root, ascending aorta and aortic arch are normal. 24. | | | No mass visualized 25. No ASD observed. 26. No VSD observed. | | | FINDINGS -------- ECG rhythm: Sinus rhythm. Study: A 2-dimensional | | | transthoracic echocardiogram with m-mode, spectral and color flow | | | Doppler was perfomed. Study: This was a technically difficult study | | | secondary to patient cooperation. Exam terminated at patient | | | request. Left Ventricle: Overall left ventricular systolic function | | | is mildly impaired with, an EF between 45 - 50 %. Left Ventricle: The | | | left ventricle cavity size is normal. Left Ventricle: There is mild | | | concentric left ventricular hypertrophy. Left Ventricle: The | | | diastolic filling pattern indicates impaired relaxation consistent | | | with mild dysfunction (Grade I), which is normal for the patient's | | | age. Left Ventricle: False Tendon Visualized in the LV Right | | | Ventricle: The right ventricle is normal in size. Left Atrium: The | | | left atrium is moderately dilated. Right Atrium: The right atrial | | | size is normal. Aortic Valve: The aortic valve was not well | | | visualized. Aortic Valve: There is mild aortic regurgitation. Aortic | | | Valve: There is no evidence of aortic stenosis. Mitral Valve: The | | | mitral valve was not well visualized. Mitral Valve: Mild mitral | | | regurgitation is present Mitral Valve: , predominately a posteriorly | | | directed jet. Mitral Valve: Mild mitral annular calcification | | | present. Tricuspid Valve: The tricuspid valve was not well | | | visualized. Tricuspid Valve: Trace tricuspid regurgitation present. | | | Tricuspid Valve: Pulmonary artery systolic pressure could not be | | | assessed due to the absence of adequate TR jet and unable to visualize | | | IVC. Pulmonic Valve: The pulmonic valve was not well visualized. | | | Pericardium: There is no pericardial effusion. IVC/Hepatic Veins: The | | | IVC could not be visualized at patient request. Aorta: The aortic | | | root, ascending aorta and aortic arch are normal. Mass: No mass | | | visualized Septum: No ASD observed. Septum: No VSD observed. | | | MEASUREMENTS RA Area: 12.82 cm2 Ao sinus: 3.41 | | | cm LA Major: 5.89 cm EDV(Teich): 39.07 ml IVSd: 1.36 cm | | | LVIDd: 3.13 cm LVPWd: 1.06 cm LVOT Diam: 2.26 cm %FS: | | | 28.94 % EF(Teich): 57.07 % ESV(Teich): 16.77 ml IVSs: 1.40 | | | cm LVIDs: 2.23 cm LVPWs: 1.61 cm SV(Teich): 22.30 ml RA | | | Major: 4.85 cm RVIDd: 2.45 cm LVEF MOD A2C: 46.53 % SV MOD | | | A2C: 22.61 ml LVEF MOD A4C: 42.90 % SV MOD A4C: 16.81 ml | | | EF Biplane: 44.67 % LVEDV MOD BP: 43.89 ml LVESV MOD BP: | | | 24.28 ml LVEDV MOD A2C: 48.59 ml LVLd A2C: 6.85 cm LVEDV MOD | | | A4C: 39.18 ml LVLd A4C: 6.65 cm LVESV MOD A2C: 25.98 ml | | | LVLs A2C: 6.41 cm LVESV MOD A4C: 22.37 ml LVLs A4C: 6.25 cm | | | LAESV(A-L): 75.44 ml LAESV Index (A-L): 42.86 ml/m2 LAAs | | | A2C: 22.17 cm2 LAESV A-L A2C: 70.09 ml LALs A2C: 5.95 cm | | | LAAs A4C: 23.86 cm2 LAESV A-L A4C: 80.98 ml LALs A4C: 5.97 | | | cm D-E Excursion: 1.43 cm E-F [place]: 0.07 m/s Ao Diam: | | | 3.45 cm Ao/LA: 0.75 AV Cusp: 1.40 cm LA Diam: 4.58 cm | | | LA/Ao: 1.32 TAPSE: 1.36 cm AR Dec [place]: 2.46 m/s2 AR Dec | | | Time: 1407.26 ms AR maxP.25 mmHg AR PHT: 408.10 ms AR | | | Vmax: 3.47 m/s ARend P.03 mmHg ARend Vmax: 2.39 m/s | | | HR: 63.69 BPM AV maxP.61 mmHg AV meanP.14 mmHg AV | | | Vmax: 1.28 m/s AV Vmean: 0.82 m/s AV VTI: 25.08 cm MV A | | | Shade: 0.82 m/s MV DecT: 192.79 ms MV E Shade: 0.62 m/s MV E/A | | | Ratio: 0.76 E/E' Av.98 E' Av.04 m/s E/E' Lat: | | | 12.17 E/E' Sept: 13.91 E' Lat: 0.05 m/s E' Sept: 0.04 m/s | | | RV S': 0.14 m/s [employer] Worker: [email or web address] Authenticated by: Torsten Hays | | | Mike CHU Report Date/Time: 06-16-2018 16:45:49 | | + + + + + | Procedure Note | + + | Billy De La Garza Conversion - 11/07/2018 10:18 PM PDT Patient Name: Viji EATON of | | : 1950 Performing Physician: Torsten Mckeon | | INDICATIONS C | | [place]; STUPOR; ETOH ABUSE; ACUTE RESPIRATORY FAILURE WITH HYPOXIA; POSTICTAL STATE; ALTERED | | MENTAL STATUS; SEIZURES CONCLUSIONS 1. Sinus rhythm.2. A 2-dimensional | | transthoracic echocardiogram with m-mode, spectral and color flow Doppler was | | perfomed.3. This was a technically difficult study secondary to patient cooperation. | | Exam terminated at patient request.4. Overall left ventricular systolic function is | | mildly impaired with, an EF between 45 - 50 %.5. The left ventricle cavity size is | | normal.6. There is mild concentric left ventricular hypertrophy.7. The right ventricle | | is normal in size.8. The left atrium is moderately dilated.9. The right atrial size is | | normal.10. The aortic valve was not well visualized.11. There is mild aortic | | regurgitation.12. There is no evidence of aortic stenosis.13. The mitral valve was not | | well visualized.14. Mild mitral regurgitation is present.15. , predominately a | | posteriorly directed jet.16. Mild mitral annular calcification present.17. The tricuspid | | valve was not well visualized.18. Trace tricuspid regurgitation present.19. Pulmonary | | artery systolic pressure could not be assessed due to the absence of adequate TR jet.20. | | The pulmonic valve was not well visualized.21. There is no pericardial effusion.22. The | | IVC could not be visualized at patient request.23. The aortic root, ascending aorta and | | aortic arch are normal.24. No mass [id number]. No ASD observed.26. No VSD observed. | | FINDINGS--------ECG rhythm: Sinus rhythm.Study: A 2-dimensional transthoracic | | echocardiogram with m-mode, spectral and color flow Doppler was perfomed.Study: This was | | a technically difficult study secondary to patient cooperation. Exam terminated at | | patient request.Left Ventricle: Overall left ventricular systolic function is mildly | | impaired with, an EF between 45 - 50 %.Left Ventricle: The left ventricle cavity size is | | normal.Left Ventricle: There is mild concentric left ventricular hypertrophy.Left | | Ventricle: The diastolic filling pattern indicates impaired relaxation consistent with | | mild dysfunction (Grade I), which is normal for the patient's age.Left Ventricle: False | | Tendon Visualized in the LVRight Ventricle: The right ventricle is normal in size.Left | | Atrium: The left atrium is moderately dilated.Right Atrium: The right atrial size is | | normal.Aortic Valve: The aortic valve was not well visualized.Aortic Valve: There is | | mild aortic regurgitation.Aortic Valve: There is no evidence of aortic stenosis.Mitral | | Valve: The mitral valve was not well visualized.Mitral Valve: Mild mitral regurgitation | | is presentMitral Valve: , predominately a posteriorly directed jet.Mitral Valve: Mild | | mitral annular calcification present.Tricuspid Valve: The tricuspid valve was not well | | visualized.Tricuspid Valve: Trace tricuspid regurgitation present.Tricuspid Valve: | | Pulmonary artery systolic pressure could not be assessed due to the absence of adequate | | TR jet and unable to visualize IVC.Pulmonic Valve: The pulmonic valve was not well | | visualized.Pericardium: There is no pericardial effusion.IVC/Hepatic Veins: The IVC | | could not be visualized at patient request.Aorta: The aortic root, ascending aorta and | | aortic arch are normal.Mass: No mass visualizedSeptum: No ASD observed.Septum: No VSD | | observed. MEASUREMENTS RA Area: 12.82 cm2Ao sinus: 3.41 cmLA Major: | | 5.89 cmEDV(Teich): 39.07 mlIVSd: 1.36 cmLVIDd: 3.13 cmLVPWd: 1.06 cmLVOT Diam: | | 2.26 cm%FS: 28.94 %EF(Teich): 57.07 %ESV(Teich): 16.77 mlIVSs: 1.40 cmLVIDs: | | 2.23 cmLVPWs: 1.61 cmSV(Teich): 22.30 mlRA Major: 4.85 cmRVIDd: 2.45 cmLVEF MOD | | A2C: 46.53 %SV MOD A2C: 22.61 mlLVEF MOD A4C: 42.90 %SV MOD A4C: 16.81 mlEF | | Biplane: 44.67 %LVEDV MOD BP: 43.89 mlLVESV MOD BP: 24.28 mlLVEDV MOD A2C: 48.59 | | mlLVLd A2C: 6.85 cmLVEDV MOD A4C: 39.18 mlLVLd A4C: 6.65 cmLVESV MOD A2C: 25.98 | | mlLVLs A2C: 6.41 cmLVESV MOD A4C: 22.37 mlLVLs A4C: 6.25 cmLAESV(A-L): 75.44 | | mlLAESV Index (A-L): 42.86 ml/m2LAAs A2C: 22.17 [id number] A-L A2C: 70.09 mlLALs | | A2C: 5.95 cmLAAs A4C: 23.86 [id number] A-L A4C: 80.98 mlLALs A4C: 5.97 cmD-E | | Excursion: 1.43 cmE-F [place]: 0.07 m/Dafne Diam: 3.45 cmAo/LA: 0.75AV Cusp: 1.40 | | cmLA Diam: 4.58 cmLA/Ao: 1.32TAPSE: 1.36 cmAR Dec [place]: 2.46 m/s2AR Dec Time: | | 1407.26 msAR maxP.25 mmHgAR PHT: 408.10 msAR Vmax: 3.47 m/sARend P.03 | | mmHgARend Vmax: 2.39 m/sHR: 63.69 BPMAV maxP.61 mmHgAV meanP.14 mmHgAV | | Vmax: 1.28 m/Svetlana Vmean: 0.82 m/Svetlana VTI: 25.08 cmMV A Shade: 0.82 m/sMV DecT: | | 192.79 msMV E Shade: 0.62 m/sMV E/A Ratio: 0.76E/E' Av.98E' Av.04 m/sE/E' | | Lat: 12.17E/E' Sept: 13.91E' Lat: 0.05 m/sE' Sept: 0.04 m/sRV S': 0.14 m/s | | [employer] Worker: Brittanyticated by: Torsten Mckeon [facility] Date/Time: 06-16-2018 | | 16:45:49 IMPRESSION: 1. Sinus rhythm.2. A 2-dimensional transthoracic echocardiogram | | with m-mode, spectral and color flow Doppler was perfomed.3. This was a technically | | difficult study secondary to patient cooperation. Exam terminated at patient request.4. | | Overall left ventricular systolic function is mildly impaired with, an EF between 45 - | | 50 %.5. The left ventricle cavity size is normal.6. There is mild concentric left | | ventricular hypertrophy.7. The right ventricle is normal in size.8. The left atrium is | | moderately dilated.9. The right atrial size is normal.10. The aortic valve was not well | | visualized.11. There is mild aortic regurgitation.12. There is no evidence of aortic | | stenosis.13. The mitral valve was not well visualized.14. Mild mitral regurgitation is | | present.15. , predominately a posteriorly directed jet.16. Mild mitral annular | | calcification present.17. The tricuspid valve was not well visualized.18. Trace | | tricuspid regurgitation present.19. Pulmonary artery systolic pressure could not be | | assessed due to the absence of adequate TR jet.20. The pulmonic valve was not well | | visualized.21. There is no pericardial effusion.22. The IVC could not be visualized at | | patient request.23. The aortic root, ascending aorta and aortic arch are normal.24. No | | mass [id number]. No ASD observed.26. No VSD observed. | |Ao sinus: 3.41 cm | |LA Major: 5.89 cm | |EDV(Teich): 39.07 ml | |IVSd: 1.36 cm | |LVIDd: 3.13 cm | |LVPWd: 1.06 cm | |LVOT Diam: 2.26 cm | |%FS: 28.94 % | |EF(Teich): 57.07 % | |ESV(Teich): 16.77 ml | |IVSs: 1.40 cm | |LVIDs: 2.23 cm | |LVPWs: 1.61 cm | |SV(Teich): 22.30 ml | |RA Major: 4.85 cm | |RVIDd: 2.45 cm | |LVEF MOD A2C: 46.53 % | |SV MOD A2C: 22.61 ml | |LVEF MOD A4C: 42.90 % | |SV MOD A4C: 16.81 ml | |EF Biplane: 44.67 % | |LVEDV MOD BP: 43.89 ml | |LVESV MOD BP: 24.28 ml | |LVEDV MOD A2C: 48.59 ml | |LVLd A2C: 6.85 cm | |LVEDV MOD A4C: 39.18 ml | |LVLd A4C: 6.65 cm | |LVESV MOD A2C: 25.98 ml | |LVLs A2C: 6.41 cm | |LVESV MOD A4C: 22.37 ml | |LVLs A4C: 6.25 cm | |LAESV(A-L): 75.44 ml | |LAESV Index (A-L): 42.86 ml/m2 | |LAAs A2C: 22.17 cm2 | |LAESV A-L A2C: 70.09 ml | |LALs A2C: 5.95 cm | |LAAs A4C: 23.86 cm2 | |LAESV A-L A4C: 80.98 ml | |LALs A4C: 5.97 cm | |D-E Excursion: 1.43 cm | |E-F [place]: 0.07 m/s | |Ao Diam: 3.45 cm | |Ao/LA: 0.75 | |AV Cusp: 1.40 cm | |LA Diam: 4.58 cm | |LA/Ao: 1.32 | |TAPSE: 1.36 cm | |AR Dec [place]: 2.46 m/s2 | |AR Dec Time: 1407.26 ms | |AR maxP.25 mmHg | |AR PHT: 408.10 ms | |AR Vmax: 3.47 m/s | |ARend P.03 mmHg | |ARend Vmax: 2.39 m/s | |HR: 63.69 BPM | |AV maxP.61 mmHg | |AV meanP.14 mmHg | |AV Vmax: 1.28 m/s | |AV Vmean: 0.82 m/s | |AV VTI: 25.08 cm | |MV A Shade: 0.82 m/s | |MV DecT: 192.79 ms | |MV E Shade: 0.62 m/s | |MV E/A Ratio: 0.76 | |E/E' Av.98 | |E' Av.04 m/s | |E/E' Lat: 12.17 | |E/E' Sept: 13.91 | |E' Lat: 0.05 m/s | |E' Sept: 0.04 m/s | |RV S': 0.14 m/s | | | |Baking [employer] Worker: KASEY | |Authenticated by: Torsten Mckeon MD | |Report Date/Time: 06-16-2018 16:45:49 | | | |IMPRESSION: | |1. Sinus rhythm. | |2. A 2-dimensional transthoracic echocardiogram with m-mode, spectral and color flow Dopple r was perfomed. | |3. This was a technically difficult study secondary to patient cooperation. Exam terminate d at patient request. | |4. Overall left ventricular systolic function is mildly impaired with, an EF between 45 - 5 0 %. | |5. The left ventricle cavity size is normal. | |6. There is mild concentric left ventricular hypertrophy. | |7. The right ventricle is normal in size. | |8. The left atrium is moderately dilated. | |9. The right atrial size is normal. | |10. The aortic valve was not well visualized. | |11. There is mild aortic regurgitation. | |12. There is no evidence of aortic stenosis. | |13. The mitral valve was not well visualized. | |14. Mild mitral regurgitation is present. | |15. , predominately a posteriorly directed jet. | |16. Mild mitral annular calcification present. | |17. The tricuspid valve was not well visualized. | |18. Trace tricuspid regurgitation present. | |19. Pulmonary artery systolic pressure could not be assessed due to the absence of adequate TR jet. | |20. The pulmonic valve was not well visualized. | |21. There is no pericardial effusion. | |22. The IVC could not be visualized at patient request. | |23. The aortic root, ascending aorta and aortic arch are normal. | |24. No mass visualized | |25. No ASD observed. | |26. No VSD observed. | + + VAS Carotid Duplex Bilateral (06/16/2018 1:59 PM PDT) + + | Specimen | + + | | + + + + + | Impressions | Performed At | + + + | No evidence of high-grade stenosis ultrasound Internal Carotid | | | Artery Diagnostic Criteria Category / Diameter reduction / ICA/CCA | | | Peak Systolic Velocity / End Diastolic Velocity / Ratio Normal to | | | Mild / 1-49% / <130cm/sec / NA / <1.6 Moderate / 50-69% /130 to | | | 229cm/sec / 70 to 99cm/sec / 1.6 to 3.1 Moderate to Severe / 70-79% / | | | >230cm/sec / 100-139cm/sec / 3.2 to 4.0 Severe / 80-99% / >230cm/sec | | | / >140cm/sec / >4.1 Occluded / 100% / no flow / no flow / NA | | | Strandness classification, NASCET criteria and [facility] criteria | | | applied for internal carotid stenosis determination. Signed by: | | | Bo Bowman Date/Time: 06/16/2018 2:07 PM | | + + + + + + | Narrative | Performed At | + + + | CAROTID DUPLEX ULTRASOUND CLINICAL INFORMATION: Dizziness. | | | COMPARISON: None PROCEDURE: Evaluation of the extracranial carotid | | | and vertebral arteries with production of real-time images | | | integrating B-mode two-dimensional vascular structure, Doppler | | | spectral analysis and color-flow Doppler imaging. FINDINGS: Peak | | | systolic and diastolic velocities measured in the common and internal | | | carotid arteries. All velocities recorded in cm/sec: Anterior | | | Circulation: Right CCA: 54/11 ICA: 74/12 ECA: 63/0 ICA/CCA: 1.4 | | | Left CCA: 59/9 ICA: 68 /18 ECA: 146/17 ICA/CCA: 1.1 Posterior | | | Circulation: Right: Vertebral: 32/8 Antegrade Left: Vertebral: | | | 39/10 Antegrade Lemons scale images: Interval thickening but no | | | high-grade or pre stenotic lesion. Waveforms are normal in rate and | | | rhythm | | + + + + + | Procedure Note | + + | Billy De La Garza Conversion - 11/07/2018 10:18 PM PDT CAROTID DUPLEX ULTRASOUND | | CLINICAL INFORMATION: | | Dizziness. | | COMPARISON: | | None | | PROCEDURE: | | Evaluation of the extracranial carotid and vertebral arteries with | | production of real-time images integrating B-mode two-dimensional | | vascular structure, Doppler spectral analysis and color-flow Doppler | | imaging. | | FINDINGS: | | Peak systolic and diastolic velocities measured in the common and | | internal carotid arteries. All velocities recorded in cm/sec: | | Anterior Circulation: | | Right | | CCA: 54/11 | | ICA: 74/12 | | ECA: 63/0 | | ICA/CCA: 1.4 | | Left | | CCA: 59/9 | | ICA: 68 /18 | | ECA: 146/17 | | ICA/CCA: 1.1 | | Posterior Circulation: | | Right: | | Vertebral: 32/8 Antegrade | | Left: | | Vertebral: 39/10 Antegrade | | Lemons scale images: Interval thickening but no high-grade or pre | | stenotic lesion. Waveforms are normal in rate and rhythm | | IMPRESSION: | | No evidence of high-grade stenosis ultrasound | | Internal Carotid Artery Diagnostic Criteria | | Category / Diameter reduction / ICA/CCA Peak Systolic Velocity / End | | Diastolic Velocity / Ratio | | Normal to Mild / 1-49% / <130cm/sec / NA / <1.6 | | Moderate / 50-69% /130 to 229cm/sec / 70 to 99cm/sec / 1.6 to 3.1 | | Moderate to Severe / 70-79% / >230cm/sec / 100-139cm/sec / 3.2 to 4.0 | | Severe / 80-99% / >230cm/sec / >140cm/sec / >4.1 | | Occluded / 100% / no flow / no flow / NA | | Strandness classification, NASCET criteria and [facility] criteria | | applied for internal carotid stenosis determination. | | Signed by: Bo Bowman | | Sign Date/Time: 06/16/2018 2:07 PM | + + POC Glucose (06/16/2018 11:55 AM PDT) + + + + + + | Component | Value | Ref Range | Performed | Pathologist | | | | | At | Signature | + + + + + + | Glucose, | 90Comment: Testing | 65 - 99 mg/dL | EXTERNAL | | | Fingerstick | performed at [facility] | | LAB | | | | [address];[place] | | | | | | [address] | | | | + + + + + + + + | Specimen | + + | | + + + +---------+ + + | Performing | Address | City/State/Zipcode | Phone Number | | Organization | | | | + +---------+ + + | EXTERNAL LAB | | | | + +---------+ + + Ammonia (06/16/2018 7:41 AM PDT) + + + + + + | Component | Value | Ref Range | Performed | Pathologist | | | | | At | Signature | + + + + + + | Ammonia | <10Comment: Testing | umol/L | EXTERNAL | | | | performed at [facility] | | LAB | | | | [address];[place], [place] | | | | | | [address] | | | | + + + + + + + + | Specimen | + + | Blood specimen | | (specimen) | + + + +---------+ + + | Performing | Address | City/State/Zipcode | Phone Number | | Organization | | | | + +---------+ + + | EXTERNAL LAB | | | | + +---------+ + + POC Glucose (06/16/2018 5:30 AM PDT) + + + + + + | Component | Value | Ref Range | Performed | Pathologist | | | | | At | Signature | + + + + + + | Glucose, | 95Comment: Testing | 65 - 99 mg/dL | EXTERNAL | | | Fingerstick | performed at [facility];[address] | | LAB | | | | [address];[place], [place] | | | | | | [address] | | | | + + + + + + + + | Specimen | + + | | + + + +---------+ + + | Performing | Address | City/State/Zipcode | Phone Number | | Organization | | | | + +---------+ + + | EXTERNAL LAB | | | | + +---------+ + + External Lab: CBC (06/16/2018 5:06 AM PDT) + + + + + + | Component | Value | Ref Range | Performed | Pathologist | | | | | At | Signature | + + + + + + | WBC | 6.99 | 3.80 - 11.00 | EXTERNAL | | | | | K/uL | LAB | | + + + + + + | RED CELL | 3.90 (L) | 4.20 - 5.70 | EXTERNAL | | | COUNT | | M/uL | LAB | | + + + + + + | Hgb | 13.9 | 13.2 - 17.0 | EXTERNAL | | | | | g/dL | LAB | | + + + + + + | Hematocrit, | 39.0 | 39.0 - 50.0 % | EXTERNAL | | | POC | | | LAB | | + + + + + + | MCV | 100.0 | 80.0 - 100.0 fl | EXTERNAL | | | | | | LAB | | + + + + + + | MCH | 35.7 (H) | 27.0 - 34.0 pg | EXTERNAL | | | | | | LAB | | + + + + + + | MCHC | 35.7 (H) | 32.0 - 35.5 | EXTERNAL | | | | | g/dL | LAB | | + + + + + + | RDW-CV | 46.4 | 37 - 53 fl | EXTERNAL | | | | | | LAB | | + + + + + + | Platelet | 290 | 150 - 400 K/uL | EXTERNAL | | | Count | | | LAB | | | Plasma | | | | | + + + + + + | MPV | 9.1 | fl | EXTERNAL | | | | | | LAB | | + + + + + + | Differentia | AUTOMATED | | EXTERNAL | | | l Type | | | LAB | | + + + + + + | % Segmented | 77.46 | % | EXTERNAL | | | | | | LAB | | | Neutrophils | | | | | + + + + + + | % | 11.47 | % | EXTERNAL | | | Lymphocytes | | | LAB | | + + + + + + | % Monocytes | 10.79 | % | EXTERNAL | | | | | | LAB | | + + + + + + | % | 0.18 | % | EXTERNAL | | | Eosinophils | | | LAB | | + + + + + + | % Basophils | 0.10 | % | EXTERNAL | | | | | | LAB | | + + + + + + | Absolute | 5.41 | 1.90 - 7.40 | EXTERNAL | | | Segmented | | K/uL | LAB | | | Neutrophils | | | | | + + + + + + | Absolute | 0.80 (L) | 1.00 - 3.90 | EXTERNAL | | | Lymphocytes | | K/uL | LAB | | + + + + + + | Absolute | 0.75 | 0.00 - 0.80 | EXTERNAL | | | Monocytes | | K/uL | LAB | | + + + + + + | Absolute | 0.01 | 0.00 - 0.50 | EXTERNAL | | | Eosinophils | | K/uL | LAB | | + + + + + + | Absolute | 0.01Comment: Testing | 0.00 - 0.10 | EXTERNAL | | | Basophils | performed at [facility], [address] | K/uL | LAB | | | | [address], | | | | | | [place] [address] | | | | + + + + + + + + | Specimen | + + | Blood specimen | | (specimen) | + + + +---------+ + + | Performing | Address | City/State/Zipcode | Phone Number | | Organization | | | | + +---------+ + + | EXTERNAL LAB | | | | + +---------+ + + Phosphorus (06/16/2018 5:06 AM PDT) + + + + + + | Component | Value | Ref Range | Performed | Pathologist | | | | | At | Signature | + + + + + + | PHOSPHORUS | 4.1Comment: Testing | 2.3 - 4.8 mg/dL | EXTERNAL | | | | performed at [facility];[address] | | LAB | | | | [address];[place] | | | | | | [address] | | | | + + + + + + + + | Specimen | + + | Blood specimen | | (specimen) | + + + +---------+ + + | Performing | Address | City/State/Zipcode | Phone Number | | Organization | | | | + +---------+ + + | EXTERNAL LAB | | | | + +---------+ + + Magnesium (06/16/2018 5:06 AM PDT) + + + + + + | Component | Value | Ref Range | Performed | Pathologist | | | | | At | Signature | + + + + + + | Magnesium | 1.8Comment: Testing | 1.7 - 2.4 mg/dL | EXTERNAL | | | | performed at [facility];[address] | | LAB | | | | [address];[place] | | | | | | [address] | | | | + + + [...] + +---------+ + + Basic Metabolic Panel (06/16/2018 5:06 AM PDT) + + + + + + | Component | Value | Ref Range | Performed | Pathologist | | | | | At | Signature | + + + + + + | Na | 135 | 135 - 145 | EXTERNAL | | | | | mmol/L | LAB | | + + + + + + | K | 4.0 | 3.5 - 4.9 | EXTERNAL | | | | | mmol/L | LAB | | + + + + + + | Cl | 98 (L) | 99 - 109 mmol/L | EXTERNAL | | | | | | LAB | | + + + + + + | CO2 | 27 | 23 - 32 mmol/L | EXTERNAL | | | | | | LAB | | + + + + + + | Anion Gap | 14 | 5 - 20 mmol/L | EXTERNAL | | | | | | LAB | | + + + + + + | Glucose, | 94 | 65 - 99 mg/dL | EXTERNAL | | | Fasting | | | LAB | | + + + + + + | BUN | 20 | 8 - 25 mg/dL | EXTERNAL | | | | | | LAB | | + + + + + + | Creatinine | 0.7 | 0.70 - 1.30 | EXTERNAL | | | | | mg/dL | LAB | | + + + + + + | BUN/Creatin | 29 | | EXTERNAL | | | ine Ratio | | | LAB | | + + + + + + | Calcium | 8.8 | 8.5 - 10.5 | EXTERNAL | | | | | mg/dL | LAB | | + + + + + [...] BY | | | | | | 1.210.This eGFR is | | | | | | calculated using the | | | | | | MDRD IDMS traceable | | | | | | equation.Testing | | | | | | performed at [facility], [address] | | | | | | [address], | | | | | | [place] [address] | | | | + + + + + + + + | Specimen | + + | Blood specimen | | (specimen) | + + + +---------+ + + | Performing | Address | City/State/Zipcode | Phone Number | | Organization | | | | + +---------+ + + | EXTERNAL LAB | | | | + +---------+ + + POC Glucose (06/15/2018 9:08 PM PDT) + + + + + + | Component | Value | Ref Range | Performed | Pathologist | | | | | At | Signature | + + + + + + | Glucose, | 109 (H)Comment: Testing | 65 - 99 mg/dL | EXTERNAL | | | Fingerstick | performed at [facility] | | LAB | | | | [address];[place] | | | | | | [address] | | | | + + + + + + + + | Specimen | + + | | + + + +---------+ + + | Performing | Address | City/State/Zipcode | Phone Number | | Organization | | | | + +---------+ + + | EXTERNAL LAB | | | | + +---------+ + + POC Glucose (06/15/2018 4:05 PM PDT) + + + + + + | Component | Value | Ref Range | Performed | Pathologist | | | | | At | Signature | + + + + + + | Glucose, | 107 (H)Comment: Testing | 65 - 99 mg/dL | EXTERNAL | | | Fingerstick | performed at [facility];[address] | | LAB | | | | [address];[place] | | | | | | [address] | | | | + + + + + + + + | Specimen | + + | | + + + +---------+ + + | Performing | Address | City/State/Zipcode | Phone Number | | Organization | | | | + +---------+ + + | EXTERNAL LAB | | | | + +---------+ + + POC Glucose (06/15/2018 11:55 AM PDT) + + + + + + | Component | Value | Ref Range | Performed | Pathologist | | | | | At | Signature | + + + + + + | Glucose, | 136 (H)Comment: Testing | 65 - 99 mg/dL | EXTERNAL | | | Fingerstick | performed at [facility];[address] | | LAB | | | | [address];[place] | | | | | | [address] | | | | + + + + + + + + | Specimen | + + | | + + + +---------+ + + | Performing | Address | City/State/Zipcode | Phone Number | | Organization | | | | + +---------+ + + | EXTERNAL LAB | | | | + +---------+ + + Magnesium (06/15/2018 8:30 AM PDT) + + + + + + | Component | Value | Ref Range | Performed | Pathologist | | | | | At | Signature | + + + + + + | Magnesium | 2.6 (H)Comment: Testing | 1.7 - 2.4 mg/dL | EXTERNAL | | | | performed at [facility];[address] | | LAB | | | | [address];[place] | | | | | | [address] | | | | + + + + + + + + | Specimen | + + | Blood specimen | | (specimen) | + + + +---------+ + + | Performing | Address | City/State/Zipcode | Phone Number | | Organization | | | | + +---------+ + + | EXTERNAL LAB | | | | + +---------+ + + POC Glucose (06/15/2018 6:42 AM PDT) + + + + + + | Component | Value | Ref Range | Performed | Pathologist | | | | | At | Signature | + + + + + + | Glucose, | 138 (H)Comment: Testing | 65 - 99 mg/dL | EXTERNAL | | | Fingerstick | performed at [facility];[address] | | LAB | | | | [address];[place] | | | | | | [address] | | | | + + + + + + + + | Specimen | + + | | + + + +---------+ + + | Performing | Address | City/State/Zipcode | Phone Number | | Organization | | | | + +---------+ + + | EXTERNAL LAB | | | | + +---------+ + + External Lab: CBC (06/15/2018 4:17 AM PDT) + + + + + + | Component | Value | Ref Range | Performed | Pathologist | | | | | At | Signature | + + + + + + | WBC | 6.04 | 3.80 - 11.00 | EXTERNAL | | | | | K/uL | LAB | | + + + + + + | RED CELL | 3.66 (L) | 4.20 - 5.70 | EXTERNAL | | | COUNT | | M/uL | LAB | | + + + + + + | Hgb | 12.9 (L) | 13.2 - 17.0 | EXTERNAL | | | | | g/dL | LAB | | + + + + + + | Hematocrit, | 37.1 (L) | 39.0 - 50.0 % | EXTERNAL | | | POC | | | LAB | | + + + + + + | MCV | 101.4 (H) | 80.0 - 100.0 fl | EXTERNAL | | | | | | LAB | | + + + + + + | MCH | 35.2 (H) | 27.0 - 34.0 pg | EXTERNAL | | | | | | LAB | | + + + + + + | MCHC | 34.7 | 32.0 - 35.5 | EXTERNAL | | | | | g/dL | LAB | | + + + + + + | RDW-CV | 47.3 | 37 - 53 fl | EXTERNAL | | | | | | LAB | | + + + + + + | Platelet | 247 | 150 - 400 K/uL | EXTERNAL | | | Count | | | LAB | | | Plasma | | | | | + + + + + + | MPV | 9.4 | fl | EXTERNAL | | | | | | LAB | | + + + + + + | Differentia | MANUAL | | EXTERNAL | | | l Type | | | LAB | | + + + + + + | Segmented | 83 | % | EXTERNAL | | | Neutrophils | | | LAB | | | Manual | | | | | + + + + + + | % Bands | 3 | % | EXTERNAL | | | | | | LAB | | + + + + + + | Lymphocytes | 10 | % | EXTERNAL | | | Manual | | | LAB | | + + + + + + | % Atypical | 1 | % | EXTERNAL | | | Lymphocytes | | | LAB | | + + + + + + | Monocytes | 3 | % | EXTERNAL | | | Manual | | | LAB | | + + + + + + | Absolute | 5.02 | 1.90 - 7.40 | EXTERNAL | | | Neutrophils | | K/uL | LAB | | + + + + + + | Bands | 0.18 | 0.00 - 0.20 | EXTERNAL | | | Manual | | K/uL | LAB | | + + + + + + | Absolute | 0.60 (L) | 1.00 - 3.90 | EXTERNAL | | | Lymphocytes | | K/uL | LAB | | + + + + + + | Absolute | 0.06 (H) | K/uL | EXTERNAL | | | Atypical | | | LAB | | | Lymphocytes | | | | | + + + + + + | Absolute | 0.18 | 0.00 - 0.80 | EXTERNAL | | | Monocytes | | K/uL | LAB | | + + + + + + | RBC | RBC AND PLT MORPHOLOGY | | EXTERNAL | | | Morphology | APPEAR NORMALComment: | | LAB | | | | Testing performed at | | | | | | [facility], [address] [place] [address] | | | | | | [place], [place] | | | | | | [id number] | | | | + + + + + + + + | Specimen | + + | Blood specimen | | (specimen) | + + + +---------+ + + | Performing | Address | City/State/Zipcode | Phone Number | | Organization | | | | + +---------+ + + | EXTERNAL LAB | | | | + +---------+ + + Phosphorus (06/15/2018 4:17 AM PDT) + + + + + + | Component | Value | Ref Range | Performed | Pathologist | | | | | At | Signature | + + + + + + | PHOSPHORUS | 4.4Comment: Testing | 2.3 - 4.8 mg/dL | EXTERNAL | | | | performed at [facility] [place] | | [address] | | | | [address];[place], [place] | | | | | | [id number] | | | | + + + + + + + + | Specimen | + + | Blood specimen | | (specimen) | + + + +---------+ + + | Performing | Address | City/State/Zipcode | Phone Number | | Organization | | | | + +---------+ + + | EXTERNAL LAB | | | | + +---------+ + + Magnesium (06/15/2018 4:17 AM PDT) + + + + + + | Component | Value | Ref Range | Performed | Pathologist | | | | | At | Signature | + + + + + + | Magnesium | 2.0Comment: Testing | 1.7 - 2.4 mg/dL | EXTERNAL | | | | performed at [facility] [place] | | [place] | | | | [address];[place] | | | | | | [address] | | | | + + + [...] + +---------+ + + Basic Metabolic Panel (06/15/2018 4:17 AM PDT) + + + + + + | Component | Value | Ref Range | Performed | Pathologist | | | | | At | Signature | + + + + + + | Na | 134 (L) | 135 - 145 | EXTERNAL | | | | | mmol/L | LAB | | + + + + + + | K | 4.6 | 3.5 - 4.9 | EXTERNAL | | | | | mmol/L | LAB | | + + + + + + | Cl | 99 | 99 - 109 mmol/L | EXTERNAL | | | | | | LAB | | + + + + + + | CO2 | 27 | 23 - 32 mmol/L | EXTERNAL | | | | | | LAB | | + + + + + + | Anion Gap | 13 | 5 - 20 mmol/L | EXTERNAL | | | | | | LAB | | + + + + + + | Glucose, | 138 (H) | 65 - 99 mg/dL | EXTERNAL | | | Fasting | | | LAB | | + + + + + + | BUN | 15 | 8 - 25 mg/dL | EXTERNAL | | | | | | LAB | | + + + + + + | Creatinine | 0.7 | 0.70 - 1.30 | EXTERNAL | | | | | mg/dL | LAB | | + + + + + + | BUN/Creatin | 21 | | EXTERNAL | | | ine Ratio | | | LAB | | + + + + + + | Calcium | 8.7 | 8.5 - 10.5 | EXTERNAL | | | | | mg/dL | LAB | | + + + + + [...] BY | | | | | | 1.210.This eGFR is | | | | | | calculated using the | | | | | | MDRD IDMS traceable | | | | | | equation.Testing | | | | | | performed at [facility], [address] | | | | | | [facility], | | | | | | [place] [address] | | | | + + + + + + + + | Specimen | + + | Blood specimen | | (specimen) | + + + +---------+ + + | Performing | Address | City/State/Zipcode | Phone Number | | Organization | | | | + +---------+ + + | EXTERNAL LAB | | | | + +---------+ + + POC Glucose (06/15/2018 12:35 AM PDT) + + + + + + | Component | Value | Ref Range | Performed | Pathologist | | | | | At | Signature | + + + + + + | Glucose, | 124 (H)Comment: Testing | 65 - 99 mg/dL | EXTERNAL | | | Fingerstick | performed at [facility];[address] | | LAB | | | | [address];[place] | | | | | | [address] | | | | + + + + + + + + | Specimen | + + | | + + + +---------+ + + | Performing | Address | City/State/Zipcode | Phone Number | | Organization | | | | + +---------+ + + | EXTERNAL LAB | | | | + +---------+ + + POC Glucose (06/14/2018 6:26 PM PDT) + + + + + + | Component | Value | Ref Range | Performed | Pathologist | | | | | At | Signature | + + + + + + | Glucose, | 108 (H)Comment: Testing | 65 - 99 mg/dL | EXTERNAL | | | Fingerstick | performed at [facility];[address] | | LAB | | | | [address];[place], [place] | | | | | | [address] | | | | + + + + + + + + | Specimen | + + | | + + + +---------+ + + | Performing | Address | City/State/Zipcode | Phone Number | | Organization | | | | + +---------+ + + | EXTERNAL LAB | | | | + +---------+ + + Potassium (06/14/2018 4:03 PM PDT) + + + + + + | Component | Value | Ref Range | Performed | Pathologist | | | | | At | Signature | + + + + + + | K | 4.0Comment: Testing | 3.5 - 4.9 | EXTERNAL | | | | performed at [facility];[address] | mmol/L | LAB | | | | [address];[place], [place] | | | | | | [address] | | | | + + + + + + + + | Specimen | + + | Blood specimen | | (specimen) | + + + +---------+ + + | Performing | Address | City/State/Zipcode | Phone Number | | Organization | | | | + +---------+ + + | EXTERNAL LAB | | | | + +---------+ + + Magnesium (06/14/2018 4:03 PM PDT) + + + + + + | Component | Value | Ref Range | Performed | Pathologist | | | | | At | Signature | + + + + + + | Magnesium | 1.9Comment: Testing | 1.7 - 2.4 mg/dL | EXTERNAL | | | | performed at [facility] | | LAB | | | | [facility];[place] | | | | | | [address] | | | | + + + + + + + + | Specimen | + + | Blood specimen | | (specimen) | + + + +---------+ + + | Performing | Address | City/State/Zipcode | Phone Number | | Organization | | | | + +---------+ + + | EXTERNAL LAB | | | | + +---------+ + + POC Glucose (06/14/2018 12:29 PM PDT) + + + + + + | Component | Value | Ref Range | Performed | Pathologist | | | | | At | Signature | + + + + + + | Glucose, | 121 (H)Comment: Testing | 65 - 99 mg/dL | EXTERNAL | | | Fingerstick | performed at [facility];[address] | | LAB | | | | [address];[place] | | | | | | [address] | | | | + + + + + + + + | Specimen | + + | | + + + +---------+ + + | Performing | Address | City/State/Zipcode | Phone Number | | Organization | | | | + +---------+ + + | EXTERNAL LAB | | | | + +---------+ + + Hepatitis Panel, Acute (06/14/2018 10:31 AM PDT) + + + + + + | Component | Value | Ref Range | Performed | Pathologist | | | | | At | Signature | + + + + + + | HEP A IGM | NON REACTIVE | | EXTERNAL | | | | | | LAB | | + + + + + + | HEP B | NON REACTIVE | | EXTERNAL | | | SURFACE | | | LAB | | | ANTIBODY | | | | | + + + + + + | HEP B CORE | NON REACTIVE | | EXTERNAL | | | IgM | | | LAB | | + + + + + + | HCV Ab | NON REACTIVE | | EXTERNAL | | | | | | LAB | | + + + + + + | Hepatitis | No serologic evidence of | | EXTERNAL | | | Interp.: | HAV, HBV, or HCV | | LAB | | | | infection.Comment: | | | | | | Testing performed at | | | | | | [facility], [address] | | | | | | [place] | | | | | | [address] | | | | + + + + + + + + | Specimen | + + | Blood specimen | | (specimen) | + + + +---------+ + + | Performing | Address | City/State/Zipcode | Phone Number | | Organization | | | | + +---------+ + + | EXTERNAL LAB | | | | + +---------+ + + HIV 1 and 2 Antibody Differentiation (06/14/2018 10:31 AM PDT) + + + + + + | Component | Value | Ref Range | Performed | Pathologist | | | | | At | Signature | + + + + + + | HIV 1 and 2 | NON REACTIVEComment: THE | | EXTERNAL | | | Ab | NON REACTIVE HIV 1/2 | | LAB | | | | RESULT INDICATES THAT | | | | | | NEITHER ANTIBODIES NOR | | | | | | P24 ANTIGEN TO HIV 1/2 | | | | | | HAVE BEEN DETECTED IN | | | | | | THIS SPECIMEN. THIS | | | | | | RESULT DOES NOT PRECLUDE | | | | | | PREVIOUS EXPOSURE OR | | | | | | INFECTION.Testing | | | | | | performed at [facility], [address] | | | | | | [facility], | | | | | | [place] [address] | | | | + + + + + + + + | Specimen | + + | Blood specimen | | (specimen) | + + + +---------+ + + | Performing | Address | City/State/Zipcode | Phone Number | | Organization | | | | + +---------+ + + | EXTERNAL LAB | | | | + +---------+ + + POC Glucose (06/14/2018 6:31 AM PDT) + + + + + + | Component | Value | Ref Range | Performed | Pathologist | | | | | At | Signature | + + + + + + | Glucose, | 152 (H)Comment: Testing | 65 - 99 mg/dL | EXTERNAL | | | Fingerstick | performed at [facility];[address] | | LAB | | | | [address];[place] | | | | | | [address] | | | | + + + + + + + + | Specimen | + + | | + + + +---------+ + + | Performing | Address | City/State/Zipcode | Phone Number | | Organization | | | | + +---------+ + + | EXTERNAL LAB | | | | + +---------+ + + External Lab: CBC (06/14/2018 5:06 AM PDT) + + + + + + | Component | Value | Ref Range | Performed | Pathologist | | | | | At | Signature | + + + + + + | WBC | 4.45 | 3.80 - 11.00 | EXTERNAL | | | | | K/uL | LAB | | + + + + + + | RED CELL | 3.43 (L) | 4.20 - 5.70 | EXTERNAL | | | COUNT | | M/uL | LAB | | + + + + + + | Hgb | 12.3 (L) | 13.2 - 17.0 | EXTERNAL | | | | | g/dL | LAB | | + + + + + + | Hematocrit, | 34.7 (L) | 39.0 - 50.0 % | EXTERNAL | | | POC | | | LAB | | + + + + + + | MCV | 101.4 (H) | 80.0 - 100.0 fl | EXTERNAL | | | | | | LAB | | + + + + + + | MCH | 36.0 (H) | 27.0 - 34.0 pg | EXTERNAL | | | | | | LAB | | + + + + + + | MCHC | 35.5 | 32.0 - 35.5 | EXTERNAL | | | | | g/dL | LAB | | + + + + + + | RDW-CV | 48.6 | 37 - 53 fl | EXTERNAL | | | | | | LAB | | + + + + + + | Platelet | 194 | 150 - 400 K/uL | EXTERNAL | | | Count | | | LAB | | | Plasma | | | | | + + + + + + | MPV | 9.2 | fl | EXTERNAL | | | | | | LAB | | + + + + + + | Differentia | AUTOMATED | | EXTERNAL | | | l Type | | | LAB | | + + + + + + | % Segmented | 75.01 | % | EXTERNAL | | | | | | LAB | | | Neutrophils | | | | | + + + + + + | % | 8.50 | % | EXTERNAL | | | Lymphocytes | | | LAB | | + + + + + + | % Monocytes | 16.29 | % | EXTERNAL | | | | | | LAB | | + + + + + + | % | 0.05 | % | EXTERNAL | | | Eosinophils | | | LAB | | + + + + + + | % Basophils | 0.15 | % | EXTERNAL | | | | | | LAB | | + + + + + + | Absolute | 3.34 | 1.90 - 7.40 | EXTERNAL | | | Segmented | | K/uL | LAB | | | Neutrophils | | | | | + + + + + + | Absolute | 0.38 (L) | 1.00 - 3.90 | EXTERNAL | | | Lymphocytes | | K/uL | LAB | | + + + + + + | Absolute | 0.73 | 0.00 - 0.80 | EXTERNAL | | | Monocytes | | K/uL | LAB | | + + + + + + | Absolute | 0.00 | 0.00 - 0.50 | EXTERNAL | | | Eosinophils | | K/uL | LAB | | + + + + + + | Absolute | 0.01Comment: Testing | 0.00 - 0.10 | EXTERNAL | | | Basophils | performed at [facility], [address] | K/uL | LAB | | | | [address] [place], | | | | | | [place] [address] | | | | + + + + + + + + | Specimen | + + | Blood specimen | | (specimen) | + + + +---------+ + + | Performing | Address | City/State/Zipcode | Phone Number | | Organization | | | | + +---------+ + + | EXTERNAL LAB | | | | + +---------+ + + Phosphorus (06/14/2018 5:06 AM PDT) + + + + + + | Component | Value | Ref Range | Performed | Pathologist | | | | | At | Signature | + + + + + + | PHOSPHORUS | 3.1Comment: Testing | 2.3 - 4.8 mg/dL | EXTERNAL | | | | performed at [facility] | | LAB | | | | [address];[place] | | | | | | [address] | | | | + + + + + + + + | Specimen | + + | Blood specimen | | (specimen) | + + + +---------+ + + | Performing | Address | City/State/Zipcode | Phone Number | | Organization | | | | + +---------+ + + | EXTERNAL LAB | | | | + +---------+ + + Magnesium (06/14/2018 5:06 AM PDT) + + + + + + | Component | Value | Ref Range | Performed | Pathologist | | | | | At | Signature | + + + + + + | Magnesium | 1.6 (L)Comment: Testing | 1.7 - 2.4 mg/dL | EXTERNAL | | | | performed at [facility];[address] | | LAB | | | | [address];[place], [place] | | | | | | [address] | | | | + + + [...] + +---------+ + + Basic Metabolic Panel (06/14/2018 5:06 AM PDT) + + + + + + | Component | Value | Ref Range | Performed | Pathologist | | | | | At | Signature | + + + + + + | Na | 137 | 135 - 145 | EXTERNAL | | | | | mmol/L | LAB | | + + + + + + | K | 3.7 | 3.5 - 4.9 | EXTERNAL | | | | | mmol/L | LAB | | + + + + + + | Cl | 103 | 99 - 109 mmol/L | EXTERNAL | | | | | | LAB | | + + + + + + | CO2 | 25 | 23 - 32 mmol/L | EXTERNAL | | | | | | LAB | | + + + + + + | Anion Gap | 13 | 5 - 20 mmol/L | EXTERNAL | | | | | | LAB | | + + + + + + | Glucose, | 111 (H) | 65 - 99 mg/dL | EXTERNAL | | | Fasting | | | LAB | | + + + + + + | BUN | 18 | 8 - 25 mg/dL | EXTERNAL | | | | | | LAB | | + + + + + + | Creatinine | 0.5 (L) | 0.70 - 1.30 | EXTERNAL | | | | | mg/dL | LAB | | + + + + + + | BUN/Creatin | 36 | | EXTERNAL | | | ine Ratio | | | LAB | | + + + + + + | Calcium | 8.0 (L) | 8.5 - 10.5 | EXTERNAL | | | | | mg/dL | LAB | | + + + + + [...] BY | | | | | | 1.210.This eGFR is | | | | | | calculated using the | | | | | | MDRD IDMS traceable | | | | | | equation.Testing | | | | | | performed at [facility], [address] | | | | | | [address], | | | | | | [place] [address] | | | | + + + + + + + + | Specimen | + + | Blood specimen | | (specimen) | + + + +---------+ + + | Performing | Address | City/State/Zipcode | Phone Number | | Organization | | | | + +---------+ + + | EXTERNAL LAB | | | | + +---------+ + + POC Glucose (06/14/2018 12:18 AM PDT) + + + + + + | Component | Value | Ref Range | Performed | Pathologist | | | | | At | Signature | + + + + + + | Glucose, | 138 (H)Comment: Testing | 65 - 99 mg/dL | EXTERNAL | | | Fingerstick | performed at [facility];[address] | | LAB | | | | [address];[place] | | | | | | [address] | | | | + + + + + + + + | Specimen | + + | | + + + +---------+ + + | Performing | Address | City/State/Zipcode | Phone Number | | Organization | | | | + +---------+ + + | EXTERNAL LAB | | | | + +---------+ + + POC Glucose (06/13/2018 6:37 PM PDT) + + + + + + | Component | Value | Ref Range | Performed | Pathologist | | | | | At | Signature | + + + + + + | Glucose, | 127 (H)Comment: Testing | 65 - 99 mg/dL | EXTERNAL | | | Fingerstick | performed at [facility];[address] | | LAB | | | | [address];[place] | | | | | | [address] | | | | + + + + + + + + | Specimen | + + | | + + + +---------+ + + | Performing | Address | City/State/Zipcode | Phone Number | | Organization | | | | + +---------+ + + | EXTERNAL LAB | | | | + +---------+ + + POC Glucose (06/13/2018 12:55 PM PDT) + + + + + + | Component | Value | Ref Range | Performed | Pathologist | | | | | At | Signature | + + + + + + | Glucose, | 188 (H)Comment: Testing | 65 - 99 mg/dL | EXTERNAL | | | Fingerstick | performed at [facility];[address] | | LAB | | | | [address];[place] | | | | | | [address] | | | | + + + + + + + + | Specimen | + + | | + + + +---------+ + + | Performing | Address | City/State/Zipcode | Phone Number | | Organization | | | | + +---------+ + + | EXTERNAL LAB | | | | + +---------+ + + POC Glucose (06/13/2018 6:21 AM PDT) + + + + + + | Component | Value | Ref Range | Performed | Pathologist | | | | | At | Signature | + + + + + + | Glucose, | 170 (H)Comment: Testing | 65 - 99 mg/dL | EXTERNAL | | | Fingerstick | performed at [facility];[address] | | LAB | | | | [address];[place], [place] | | | | | | [address] | | | | + + + + + + + + | Specimen | + + | | + + + +---------+ + + | Performing | Address | City/State/Zipcode | Phone Number | | Organization | | | | + +---------+ + + | EXTERNAL LAB | | | | + +---------+ + + External Lab: CBC (06/13/2018 5:35 AM PDT) + + + + + + | Component | Value | Ref Range | Performed | Pathologist | | | | | At | Signature | + + + + + + | WBC | 7.63 | 3.80 - 11.00 | EXTERNAL | | | | | K/uL | LAB | | + + + + + + | RED CELL | 3.42 (L) | 4.20 - 5.70 | EXTERNAL | | | COUNT | | M/uL | LAB | | + + + + + + | Hgb | 12.3 (L) | 13.2 - 17.0 | EXTERNAL | | | | | g/dL | LAB | | + + + + + + | Hematocrit, | 34.7 (L) | 39.0 - 50.0 % | EXTERNAL | | | POC | | | LAB | | + + + + + + | MCV | 101.4 (H) | 80.0 - 100.0 fl | EXTERNAL | | | | | | LAB | | + + + + + + | MCH | 35.9 (H) | 27.0 - 34.0 pg | EXTERNAL | | | | | | LAB | | + + + + + + | MCHC | 35.4 | 32.0 - 35.5 | EXTERNAL | | | | | g/dL | LAB | | + + + + + + | RDW-CV | 48.6 | 37 - 53 fl | EXTERNAL | | | | | | LAB | | + + + + + + | Platelet | 214 | 150 - 400 K/uL | EXTERNAL | | | Count | | | LAB | | | Plasma | | | | | + + + + + + | MPV | 9.0 | fl | EXTERNAL | | | | | | LAB | | + + + + + + | Differentia | MANUAL | | EXTERNAL | | | l Type | | | LAB | | + + + + + + | Segmented | 90 | % | EXTERNAL | | | Neutrophils | | | LAB | | | Manual | | | | | + + + + + + | Lymphocytes | 4 | % | EXTERNAL | | | Manual | | | LAB | | + + + + + + | Monocytes | 6 | % | EXTERNAL | | | Manual | | | LAB | | + + + + + + | Absolute | 6.86 | 1.90 - 7.40 | EXTERNAL | | | Neutrophils | | K/uL | LAB | | + + + + + + | Absolute | 0.31 (L) | 1.00 - 3.90 | EXTERNAL | | | Lymphocytes | | K/uL | LAB | | + + + + + + | Absolute | 0.46 | 0.00 - 0.80 | EXTERNAL | | | Monocytes | | K/uL | LAB | | + + + + + + | RBC | RBC AND PLT MORPHOLOGY | | EXTERNAL | | | Morphology | APPEAR NORMALComment: | | LAB | | | | Testing performed at | | | | | | [facility], [address] | | | | | | [place] | | | | | | [address] | | | | + + + + + + + + | Specimen | + + | Blood specimen | | (specimen) | + + + +---------+ + + | Performing | Address | City/State/Zipcode | Phone Number | | Organization | | | | + +---------+ + + | EXTERNAL LAB | | | | + +---------+ + + Phosphorus (06/13/2018 5:35 AM PDT) + + + + + + | Component | Value | Ref Range | Performed | Pathologist | | | | | At | Signature | + + + + + + | PHOSPHORUS | 3.5Comment: Testing | 2.3 - 4.8 mg/dL | EXTERNAL | | | | performed at [facility] | | LAB | | | | [address] [facility];[place], [place] | | | | | | [address] | | | | + + + + + + + + | Specimen | + + | Blood specimen | | (specimen) | + + + +---------+ + + | Performing | Address | City/State/Zipcode | Phone Number | | Organization | | | | + +---------+ + + | EXTERNAL LAB | | | | + +---------+ + + Magnesium (06/13/2018 5:35 AM PDT) + + + + + + | Component | Value | Ref Range | Performed | Pathologist | | | | | At | Signature | + + + + + + | Magnesium | 2.2Comment: Testing | 1.7 - 2.4 mg/dL | EXTERNAL | | | | performed at [facility];[address] | | LAB | | | | [address];[place], [place] | | | | | | [address] | | | | + + + [...] + +---------+ + + Basic Metabolic Panel (06/13/2018 5:35 AM PDT) + + + + + + | Component | Value | Ref Range | Performed | Pathologist | | | | | At | Signature | + + + + + + | Na | 136 | 135 - 145 | EXTERNAL | | | | | mmol/L | LAB | | + + + + + + | K | 4.2 | 3.5 - 4.9 | EXTERNAL | | | | | mmol/L | LAB | | + + + + + + | Cl | 101 | 99 - 109 mmol/L | EXTERNAL | | | | | | LAB | | + + + + + + | CO2 | 25 | 23 - 32 mmol/L | EXTERNAL | | | | | | LAB | | + + + + + + | Anion Gap | 14 | 5 - 20 mmol/L | EXTERNAL | | | | | | LAB | | + + + + + + | Glucose, | 169 (H) | 65 - 99 mg/dL | EXTERNAL | | | Fasting | | | LAB | | + + + + + + | BUN | 18 | 8 - 25 mg/dL | EXTERNAL | | | | | | LAB | | + + + + + + | Creatinine | 0.6 (L) | 0.70 - 1.30 | EXTERNAL | | | | | mg/dL | LAB | | + + + + + + | BUN/Creatin | 30 | | EXTERNAL | | | ine Ratio | | | LAB | | + + + + + + | Calcium | 8.3 (L) | 8.5 - 10.5 | EXTERNAL | | | | | mg/dL | LAB | | + + + + + [...] BY | | | | | | 1.210.This eGFR is | | | | | | calculated using the | | | | | | MDRD IDGA traceable | | | | | | equation.Testing | | | | | | performed at [facility], [address] | | | | | | [facility], | | | | | | [place] [address] | | | | + + + + + + + + | Specimen | + + | Blood specimen | | (specimen) | + + + +---------+ + + | Performing | Address | City/State/Zipcode | Phone Number | | Organization | | | | + +---------+ + + | EXTERNAL LAB | | | | + +---------+ + + POC Glucose (06/13/2018 12:11 AM PDT) + + + + + + | Component | Value | Ref Range | Performed | Pathologist | | | | | At | Signature | + + + + + + | Glucose, | 161 (H)Comment: Testing | 65 - 99 mg/dL | EXTERNAL | | | Fingerstick | performed at [facility];[address] | | LAB | | | | [address];[place] | | | | | | [address] | | | | + + + + + + + + | Specimen | + + | | + + + +---------+ + + | Performing | Address | City/State/Zipcode | Phone Number | | Organization | | | | + +---------+ + + | EXTERNAL LAB | | | | + +---------+ + + Varicella zoster Ab, IgM (06/12/2018 6:14 PM PDT) + + | Specimen | + + | | + + + + + | Narrative | Performed At | + + + | VZV AB IGM CSF 0.00 | EXTERNAL LAB | | Reference range: <=0.90 INTERPRETIVE INFORMATION: VZV Ab, IgM, CSF | | | 0.90 ISR or less ........ Negative - No significant | | | level of IgM antibody to | | | varicella- zoster detected. 0.91 - 1.09 ISR | | | ......... Equivocal - Repeat testing in | | | 10-14 days may be helpful. 1.10 ISR or greater ..... | | | Positive - Significant level | | | of IgM antibody to varicella- | | | zoster virus detected, which | | | may indicate current or recent | | | infection. However, low levels | | | of antibodies may occasionally | | | persist for more than 12 months | | | post-infection. While the presence of IgM antibodies | | | suggest current or recent infection, low levels of IgM antibodies may | | | occasionally persist for more than 12 months post-infection. The | | | detection of antibodies t o varicella-zoster in CSF may indicate | | | central nervous system infection. However, consideration must be | | | given to possible contamination by blood or transfer of serum | | | antibodies across the blood-brain barrier. Test developed and | | | characteristics determined by [facility]. See Compliance | | | Statement B: bookjam[employer]/CS Testing performed at [facility], | | | [address] [facility] [place] [address] | | + + + + +---------+ + + | Performing | Address | City/State/Zipcode | Phone Number | | Organization | | | | + +---------+ + + | EXTERNAL LAB | | | | + +---------+ + + HISTORICAL MICROBIOLOGY RESULT (06/12/2018 6:14 PM PDT) + + | Specimen | + + | Cerebrospinal fluid | | sample (specimen) | + + + + + | Narrative | Performed At | + + + | SOURCE CEREBROSPINAL FLUID | EXTERNAL LAB | | Testing performed at [facility];[address] [place] [address];[place] [address] HSV DNA | | | Type 1 Negative Reference range: | | | Negative HSV DNA Type 2 Negative | | | Reference range: Negative This test was developed and its performance | | | characteristics determined by [facility]. It has not been | | | cleared or approved by the U.S. Food and Drug Administration. The FDA | | | has determined that such clearance or approval is not necessary. | | | This test is used for clinical purposes. It should not be regarded as | | | investigational or research. Testing performed by [facility], [address] | | [place] [address] | | + + + + +---------+ + + | Performing | Address | City/State/Zipcode | Phone Number | | Organization | | | | + +---------+ + + | EXTERNAL LAB | | | | + +---------+ + + Culture, CSF, Smear (06/12/2018 6:14 PM PDT) + + | Specimen | + + | Cerebrospinal fluid | | sample (specimen) | + + + + + | Narrative | Performed At | + + + | Specimen Description CEREBROSPINAL FLUID GRAM | EXTERNAL LAB | | STAIN WBC'S SEEN | | | NO ORGANISMS SEEN | | | STAIN PERFORMED ON CYTOSPIN | | | CULTURE NO GROWTH 4 DAYS | | + + + + +---------+ + + | Performing | Address | City/State/Zipcode | Phone Number | | Organization | | | | + +---------+ + + | EXTERNAL LAB | | | | + +---------+ + + RC Prep (06/12/2018 6:14 PM PDT) + + | Specimen | + + | Cerebrospinal fluid | | sample (specimen) | + + + + + | Narrative | Performed At | + + + | Specimen Description CEREBROSPINAL FLUID | EXTERNAL LAB | | CULTURE NO YEAST OR FUNGAL | | | ELEMENTS SEEN | | + + + + +---------+ + + | Performing | Address | City/State/Zipcode | Phone Number | | Organization | | | | + +---------+ + + | EXTERNAL LAB | | | | + +---------+ + + Cell Count with Differential, CSF (06/12/2018 6:14 PM PDT) + + | Specimen | + + | Cerebrospinal fluid | | sample (specimen) | + + + + + | Narrative | Performed At | + + + | COLOR COLORLESS | EXTERNAL LAB | | APPEARANCE CLEAR Tube | | | Number, CSF 3 CSF RBC | | | 800 High CSF WBC | | | 1 Testing performed at | | | [facility];[place] [address] | | + + + + +---------+ + + | Performing | Address | City/State/Zipcode | Phone Number | | Organization | | | | + +---------+ + + | EXTERNAL LAB | | | | + +---------+ + + VDRL, CSF (06/12/2018 6:14 PM PDT) + + | Specimen | + + | Cerebrospinal fluid | | sample (specimen) | + + + + + | Narrative | Performed At | + + + | VDRL Quant, CSF Non Reactive Reference | EXTERNAL LAB | | range: Non Genia:<1:1 Testing performed by [facility], [address] [facility], | | | [place] [address] | | + + + + +---------+ + + | Performing | Address | City/State/Zipcode | Phone Number | | Organization | | | | + +---------+ + + | EXTERNAL LAB | | | | + +---------+ + + Protein, CSF (06/12/2018 6:14 PM PDT) + + | Specimen | + + | Cerebrospinal fluid | | sample (specimen) | + + + + + | Narrative | Performed At | + + + | CSF TOTAL PROTEIN 35 Testing | EXTERNAL LAB | | performed at [facility];[address] [place] [address];[place] [id number] | | + + + + +---------+ + + | Performing | Address | City/State/Zipcode | Phone Number | | Organization | | | | + +---------+ + + | EXTERNAL LAB | | | | + +---------+ + + Glucose, CSF (06/12/2018 6:14 PM PDT) + + | Specimen | + + | Cerebrospinal fluid | | sample (specimen) | + + + + + | Narrative | Performed At | + + + | CSF GLUCOSE 91 High | EXTERNAL LAB | | Testing performed at [facility] [place] [address];[place] [id number] | | + + + + +---------+ + + | Performing | Address | City/State/Zipcode | Phone Number | | Organization | | | | + +---------+ + + | EXTERNAL LAB | | | | + +---------+ + + West Nile Virus Ab, IgG, IgM, CSF (06/12/2018 6:14 PM PDT) + + + + + + | Component | Value | Ref Range | Performed | Pathologist | | | | | At | Signature | + + + + + + | West Nile | NegativeComment: | | EXTERNAL | | | IgG, CSF | Reference range: | | LAB | | | | Negative No detectable | | | | | | West Nile Virus IgG | | | | | | Antibody. If a recent | | | | | | infection issuspected, | | | | | | another specimen should | | | | | | be submitted for testing | | | | | | within7-14 days. | | | | + + + + + + | West Nile | NegativeComment: | | EXTERNAL | | | IgM, CSF | Reference range: | | LAB | | | | Negative No detectable | | | | | | West Nile Virus IgM | | | | | | Antibody. If a recent | | | | | | infection issuspected, | | | | | | another specimen should | | | | | | be submitted for testing | | | | | | within7-14 days.Testing | | | | | | performed by [facility], | | | | | | [address], | | | | | | [facility] [address] | | | | + + + + + + + + | Specimen | + + | Cerebrospinal fluid | | sample (specimen) | + + + +---------+ + + | Performing | Address | City/State/Zipcode | Phone Number | | Organization | | | | + +---------+ + + | EXTERNAL LAB | | | | + +---------+ + + POC Glucose (06/12/2018 5:57 PM PDT) + + + + + + | Component | Value | Ref Range | Performed | Pathologist | | | | | At | Signature | + + + + + + | Glucose, | 152 (H)Comment: Testing | 65 - 99 mg/dL | EXTERNAL | | | Fingerstick | performed at [facility] | | LAB | | | | [address];[place] | | | | | | [address] | | | | + + + + + + + + | Specimen | + + | | + + + +---------+ + + | Performing | Address | City/State/Zipcode | Phone Number | | Organization | | | | + +---------+ + + | EXTERNAL LAB | | | | + +---------+ + + Protime INR (06/12/2018 1:19 PM PDT) + + + + + [...] | | | | | performed at [facility];[address] | | | | | | [address];[place], [place] | | | | | | [address] | | | | + + + + + + + + | Specimen | + + | Blood specimen | | (specimen) | + + + +---------+ + + | Performing | Address | City/State/Zipcode | Phone Number | | Organization | | | | + +---------+ + + | EXTERNAL LAB | | | | + +---------+ + + POC Glucose (06/12/2018 12:48 PM PDT) + + + + + + | Component | Value | Ref Range | Performed | Pathologist | | | | | At | Signature | + + + + + + | Glucose, | 163 (H)Comment: Testing | 65 - 99 mg/dL | EXTERNAL | | | Fingerstick | performed at [facility] | | LAB | | | | [address];[place] | | | | | | [address] | | | | + + + + + + + + | Specimen | + + | | + + + +---------+ + + | Performing | Address | City/State/Zipcode | Phone Number | | Organization | | | | + +---------+ + + | EXTERNAL LAB | | | | + +---------+ + + External Lab: CBC (06/12/2018 4:04 AM PDT) + + + + + + | Component | Value | Ref Range | Performed | Pathologist | | | | | At | Signature | + + + + + + | WBC | 6.23 | 3.80 - 11.00 | EXTERNAL | | | | | K/uL | LAB | | + + + + + + | RED CELL | 3.52 (L) | 4.20 - 5.70 | EXTERNAL | | | COUNT | | M/uL | LAB | | + + + + + + | Hgb | 12.5 (L) | 13.2 - 17.0 | EXTERNAL | | | | | g/dL | LAB | | + + + + + + | Hematocrit, | 35.5 (L) | 39.0 - 50.0 % | EXTERNAL | | | POC | | | LAB | | + + + + + + | MCV | 100.7 (H) | 80.0 - 100.0 fl | EXTERNAL | | | | | | LAB | | + + + + + + | MCH | 35.4 (H) | 27.0 - 34.0 pg | EXTERNAL | | | | | | LAB | | + + + + + + | MCHC | 35.2 | 32.0 - 35.5 | EXTERNAL | | | | | g/dL | LAB | | + + + + + + | RDW-CV | 48.6 | 37 - 53 fl | EXTERNAL | | | | | | LAB | | + + + + + + | Platelet | 196 | 150 - 400 K/uL | EXTERNAL | | | Count | | | LAB | | | Plasma | | | | | + + + + + + | MPV | 8.7 | fl | EXTERNAL | | | | | | LAB | | + + + + + + | Differentia | MANUAL | | EXTERNAL | | | l Type | | | LAB | | + + + + + + | Segmented | 93 | % | EXTERNAL | | | Neutrophils | | | LAB | | | Manual | | | | | + + + + + + | % Bands | 3 | % | EXTERNAL | | | | | | LAB | | + + + + + + | Lymphocytes | 2 | % | EXTERNAL | | | Manual | | | LAB | | + + + + + + | Monocytes | 2 | % | EXTERNAL | | | Manual | | | LAB | | + + + + + + | Absolute | 5.80 | 1.90 - 7.40 | EXTERNAL | | | Neutrophils | | K/uL | LAB | | + + + + + + | Bands | 0.19 | 0.00 - 0.20 | EXTERNAL | | | Manual | | K/uL | LAB | | + + + + + + | Absolute | 0.12 (L) | 1.00 - 3.90 | EXTERNAL | | | Lymphocytes | | K/uL | LAB | | + + + + + + | Absolute | 0.12 | 0.00 - 0.80 | EXTERNAL | | | Monocytes | | K/uL | LAB | | + + + + + + | RBC | RBC AND PLT MORPHOLOGY | | EXTERNAL | | | Morphology | APPEAR NORMALComment: | | LAB | | | | Testing performed at | | | | | | [facility], [address] | | | | | | [place] | | | | | | [address] | | | | + + + + + + + + | Specimen | + + | Blood specimen | | (specimen) | + + + +---------+ + + | Performing | Address | City/State/Zipcode | Phone Number | | Organization | | | | + +---------+ + + | EXTERNAL LAB | | | | + +---------+ + + Phosphorus (06/12/2018 4:04 AM PDT) + + + + + + | Component | Value | Ref Range | Performed | Pathologist | | | | | At | Signature | + + + + + + | PHOSPHORUS | 3.0Comment: Testing | 2.3 - 4.8 mg/dL | EXTERNAL | | | | performed at [facility];[address] | | LAB | | | | [address] [place] | | | | | | [address] | | | | + + + + + + + + | Specimen | + + | Blood specimen | | (specimen) | + + + +---------+ + + | Performing | Address | City/State/Zipcode | Phone Number | | Organization | | | | + +---------+ + + | EXTERNAL LAB | | | | + +---------+ + + Magnesium (06/12/2018 4:04 AM PDT) + + + + + + | Component | Value | Ref Range | Performed | Pathologist | | | | | At | Signature | + + + + + + | Magnesium | 1.8Comment: Testing | 1.7 - 2.4 mg/dL | EXTERNAL | | | | performed at [facility];[address] | | LAB | | | | [address];[place], [place] | | | | | | [address] | | | | + + + [...] + +---------+ + + Basic Metabolic Panel (06/12/2018 4:04 AM PDT) + + + + + + | Component | Value | Ref Range | Performed | Pathologist | | | | | At | Signature | + + + + + + | Na | 134 (L) | 135 - 145 | EXTERNAL | | | | | mmol/L | LAB | | + + + + + + | K | 4.1 | 3.5 - 4.9 | EXTERNAL | | | | | mmol/L | LAB | | + + + + + + | Cl | 101 | 99 - 109 mmol/L | EXTERNAL | | | | | | LAB | | + + + + + + | CO2 | 25 | 23 - 32 mmol/L | EXTERNAL | | | | | | LAB | | + + + + + + | Anion Gap | 12 | 5 - 20 mmol/L | EXTERNAL | | | | | | LAB | | + + + + + + | Glucose, | 208 (H) | 65 - 99 mg/dL | EXTERNAL | | | Fasting | | | LAB | | + + + + + + | BUN | 11 | 8 - 25 mg/dL | EXTERNAL | | | | | | LAB | | + + + + + + | Creatinine | 0.6 (L) | 0.70 - 1.30 | EXTERNAL | | | | | mg/dL | LAB | | + + + + + + | BUN/Creatin | 18 | | EXTERNAL | | | ine Ratio | | | LAB | | + + + + + + | Calcium | 8.3 (L) | 8.5 - 10.5 | EXTERNAL | | | | | mg/dL | LAB | | + + + + + [...] BY | | | | | | 1.210.This eGFR is | | | | | | calculated using the | | | | | | MDRD IDMS traceable | | | | | | equation.Testing | | | | | | performed at [facility], [address] | | | | | | [facility], | | | | | | [place] [address] | | | | + + + + + + + + | Specimen | + + | Blood specimen | | (specimen) | + + + +---------+ + + | Performing | Address | City/State/Zipcode | Phone Number | | Organization | | | | + +---------+ + + | EXTERNAL LAB | | | | + +---------+ + + Potassium (06/11/2018 5:29 PM PDT) + + + + + + | Component | Value | Ref Range | Performed | Pathologist | | | | | At | Signature | + + + + + + | K | 4.1Comment: Testing | 3.5 - 4.9 | EXTERNAL | | | | performed at [facility];[address] | mmol/L | LAB | | | | [address];[place], [place] | | | | | | [address] | | | | + + + + + + + + | Specimen | + + | Blood specimen | | (specimen) | + + + +---------+ + + | Performing | Address | City/State/Zipcode | Phone Number | | Organization | | | | + +---------+ + + | EXTERNAL LAB | | | | + +---------+ + + Phosphorus (06/11/2018 5:29 PM PDT) + + + + + + | Component | Value | Ref Range | Performed | Pathologist | | | | | At | Signature | + + + + + + | PHOSPHORUS | 3.8Comment: Testing | 2.3 - 4.8 mg/dL | EXTERNAL | | | | performed at [facility];[address] | | LAB | | | | [address] [place] | | | | | | [address] | | | | + + + + + + + + | Specimen | + + | Blood specimen | | (specimen) | + + + +---------+ + + | Performing | Address | City/State/Zipcode | Phone Number | | Organization | | | | + +---------+ + + | EXTERNAL LAB | | | | + +---------+ + + Magnesium (06/11/2018 5:29 PM PDT) + + + + + + | Component | Value | Ref Range | Performed | Pathologist | | | | | At | Signature | + + + + + + | Magnesium | 2.0Comment: Testing | 1.7 - 2.4 mg/dL | EXTERNAL | | | | performed at [facility];[address] | | LAB | | | | [address];[place], [place] | | | | | | [address] | | | | + + + [...] +---------+ + + XR Chest 1 Vw (06/11/2018 2:40 PM PDT) + + | Specimen | + + | | + + + + + | Impressions | Performed At | + + + | 1. ET tube terminates 3 cm from the kavitha. 2. NG tube tip | | | overlies the stomach. 3. Trace right pleural effusion. Signed by: | | | Marisela Fields Sign Date/Time: 06/11/2018 3:24 PM | | + + + + + + | Narrative | Performed At | + + + | CHEST ONE VIEW CLINICAL INFORMATION: Tube placement. COMPARISON: | | | XR CHEST 1 VIEW (06/09/2018); CTCHEST (06/09/2018); FINDINGS: ET tube | | | terminates 3 cm from the kavitha. NG tube tip overlies the stomach. | | | Right chest port tip overlies the superior vena cava near the | | | atrial-caval junction. Trace right pleural effusion. Trace | | | bibasilar atelectasis. No pneumothorax. Normal cardiomediastinal | | | silhouette. | | + + + + + | Procedure Note | + + | Billy De La Garza Conversion - 11/07/2018 10:18 PM PDT CHEST ONE VIEW | | CLINICAL INFORMATION: | | Tube placement. | | COMPARISON: | | XR CHEST 1 VIEW (06/09/2018); CTCHEST (06/09/2018); | | FINDINGS: | | ET tube terminates 3 cm from the kavitha. NG tube tip overlies the | | stomach. Right chest port tip overlies the superior vena cava near the | | atrial-caval junction. Trace right pleural effusion. Trace bibasilar | | atelectasis. No pneumothorax. Normal cardiomediastinal silhouette. | | IMPRESSION: | | 1. ET tube terminates 3 cm from the kavitha. | | 2. NG tube tip overlies the stomach. | | 3. Trace right pleural effusion. | | Signed by: Marisela Fields | | Sign Date/Time: 06/11/2018 3:24 PM | + + Urinalysis with Microscopic if Indicated (06/11/2018 10:43 AM PDT) + + + + + + | Component | Value | Ref Range | Performed | Pathologist | | | | | At | Signature | + + + + + + | Color | DOROTHY | | EXTERNAL | | | | | | LAB | | + + + + + + | Clarity | CLOUDY | | EXTERNAL | | | | | | LAB | | + + + + + + | Specific | 1.025 | 1.002 - 1.030 | EXTERNAL | | | [place] | | | LAB | | + + + + + + | Leukocyte | LARGE (A) | | EXTERNAL | | | Esterase, | | | LAB | | | Urine | | | | | + + + + + + | Nitrite, | NEGATIVE | | EXTERNAL | | | Urine | | | LAB | | + + + + + + | Urobilinoge | 4.0 (H) | mg/dL | EXTERNAL | | | n, Urine | | | LAB | | + + + + + + | Protein, | 100 (A) | mg/dL | EXTERNAL | | | Urine | | | LAB | | + + + + + + | pH, Urine | 5.0 | 5.0 - 8.0 | EXTERNAL | | | | | | LAB | | + + + + + + | Blood, | LARGE (A) | | EXTERNAL | | | Urine | | | LAB | | + + + + + + | Ketones | NEGATIVE | mg/dL | EXTERNAL | | | | | | LAB | | + + + + + + | Bilirubin, | NEGATIVE | | EXTERNAL | | | Urine | | | LAB | | + + + + + + | Glucose, | 50 (A) | mg/dL | EXTERNAL | | | Urine | | | LAB | | + + + + + + | WBC, UA | >100 | 0 - 5 /hpf | EXTERNAL | | | | | | LAB | | + + + + + + | RBC, UA | >100 | 0 - 2 /hpf | EXTERNAL | | | | | | LAB | | + + + + + + | Bacteria, | NONE SEEN | | EXTERNAL | | | UA | | | LAB | | + + + + + + | Epithelial | 26-49 | /lpf | EXTERNAL | | | Cells | | | LAB | | + + + + + + | MUCUS UA | 1+Comment: Testing | | EXTERNAL | | | | performed at [facility];[address] | | LAB | | | | [address];[place] | | | | | | [address] | | | | + + + + + + + + | Specimen | + + | Urine specimen | | (specimen) | + + + +---------+ + + | Performing | Address | City/State/Zipcode | Phone Number | | Organization | | | | + +---------+ + + | EXTERNAL LAB | | | | + +---------+ + + External Lab: CBC (06/11/2018 5:26 AM PDT) + + + + + + | Component | Value | Ref Range | Performed | Pathologist | | | | | At | Signature | + + + + + + | WBC | 5.15 | 3.80 - 11.00 | EXTERNAL | | | | | K/uL | LAB | | + + + + + + | RED CELL | 3.35 (L) | 4.20 - 5.70 | EXTERNAL | | | COUNT | | M/uL | LAB | | + + + + + + | Hgb | 12.0 (L) | 13.2 - 17.0 | EXTERNAL | | | | | g/dL | LAB | | + + + + + + | Hematocrit, | 34.2 (L) | 39.0 - 50.0 % | EXTERNAL | | | POC | | | LAB | | + + + + + + | MCV | 102.0 (H) | 80.0 - 100.0 fl | EXTERNAL | | | | | | LAB | | + + + + + + | MCH | 35.9 (H) | 27.0 - 34.0 pg | EXTERNAL | | | | | | LAB | | + + + + + + | MCHC | 35.2 | 32.0 - 35.5 | EXTERNAL | | | | | g/dL | LAB | | + + + + + + | RDW-CV | 48.6 | 37 - 53 fl | EXTERNAL | | | | | | LAB | | + + + + + + | Platelet | 180 | 150 - 400 K/uL | EXTERNAL | | | Count | | | LAB | | | Plasma | | | | | + + + + + + | MPV | 8.5 | fl | EXTERNAL | | | | | | LAB | | + + + + + + | Differentia | AUTOMATED | | EXTERNAL | | | l Type | | | LAB | | + + + + + + | % Segmented | 80.83 | % | EXTERNAL | | | | | | LAB | | | Neutrophils | | | | | + + + + + + | % | 8.42 | % | EXTERNAL | | | Lymphocytes | | | LAB | | + + + + + + | % Monocytes | 10.30 | % | EXTERNAL | | | | | | LAB | | + + + + + + | % | 0.13 | % | EXTERNAL | | | Eosinophils | | | LAB | | + + + + + + | % Basophils | 0.32 | % | EXTERNAL | | | | | | LAB | | + + + + + + | Absolute | 4.16 | 1.90 - 7.40 | EXTERNAL | | | Segmented | | K/uL | LAB | | | Neutrophils | | | | | + + + + + + | Absolute | 0.43 (L) | 1.00 - 3.90 | EXTERNAL | | | Lymphocytes | | K/uL | LAB | | + + + + + + | Absolute | 0.53 | 0.00 - 0.80 | EXTERNAL | | | Monocytes | | K/uL | LAB | | + + + + + + | Absolute | 0.01 | 0.00 - 0.50 | EXTERNAL | | | Eosinophils | | K/uL | LAB | | + + + + + + | Absolute | 0.02Comment: Testing | 0.00 - 0.10 | EXTERNAL | | | Basophils | performed at [facility], [address] | K/uL | LAB | | | | [address], | | | | | | [place] [address] | | | | + + + + + + + + | Specimen | + + | Blood specimen | | (specimen) | + + + +---------+ + + | Performing | Address | City/State/Zipcode | Phone Number | | Organization | | | | + +---------+ + + | EXTERNAL LAB | | | | + +---------+ + + Phosphorus (06/11/2018 5:26 AM PDT) + + + + + + | Component | Value | Ref Range | Performed | Pathologist | | | | | At | Signature | + + + + + + | PHOSPHORUS | 2.0 (L)Comment: Testing | 2.3 - 4.8 mg/dL | EXTERNAL | | | | performed at [facility];[address] | | LAB | | | | [address];[place], [place] | | | | | | [address] | | | | + + + + + + + + | Specimen | + + | Blood specimen | | (specimen) | + + + +---------+ + + | Performing | Address | City/State/Zipcode | Phone Number | | Organization | | | | + +---------+ + + | EXTERNAL LAB | | | | + +---------+ + + Magnesium (06/11/2018 5:26 AM PDT) + + + + + + | Component | Value | Ref Range | Performed | Pathologist | | | | | At | Signature | + + + + + + | Magnesium | 1.7Comment: Testing | 1.7 - 2.4 mg/dL | EXTERNAL | | | | performed at [facility];[address] | | LAB | | | | [address];[place] | | | | | | [address] | | | | + + + [...] + +---------+ + + Basic Metabolic Panel (06/11/2018 5:26 AM PDT) + + + + + + | Component | Value | Ref Range | Performed | Pathologist | | | | | At | Signature | + + + + + + | Na | 137 | 135 - 145 | EXTERNAL | | | | | mmol/L | LAB | | + + + + + + | K | 3.3 (L) | 3.5 - 4.9 | EXTERNAL | | | | | mmol/L | LAB | | + + + + + + | Cl | 104 | 99 - 109 mmol/L | EXTERNAL | | | | | | LAB | | + + + + + + | CO2 | 24 | 23 - 32 mmol/L | EXTERNAL | | | | | | LAB | | + + + + + + | Anion Gap | 12 | 5 - 20 mmol/L | EXTERNAL | | | | | | LAB | | + + + + + + | Glucose, | 110 (H) | 65 - 99 mg/dL | EXTERNAL | | | Fasting | | | LAB | | + + + + + + | BUN | 11 | 8 - 25 mg/dL | EXTERNAL | | | | | | LAB | | + + + + + + | Creatinine | 0.5 (L) | 0.70 - 1.30 | EXTERNAL | | | | | mg/dL | LAB | | + + + + + + | BUN/Creatin | 22 | | EXTERNAL | | | ine Ratio | | | LAB | | + + + + + + | Calcium | 8.0 (L) | 8.5 - 10.5 | EXTERNAL | | | | | mg/dL | LAB | | + + + + + [...] BY | | | | | | 1.210.This eGFR is | | | | | | calculated using the | | | | | | MDRD IDMS traceable | | | | | | equation.Testing | | | | | | performed at [facility], [address] | | | | | | [facility], | | | | | | [place] [address] | | | | + + + + + + + + | Specimen | + + | Blood specimen | | (specimen) | + + + +---------+ + + | Performing | Address | City/State/Zipcode | Phone Number | | Organization | | | | + +---------+ + + | EXTERNAL LAB | | | | + +---------+ + + Ammonia (06/11/2018 12:39 AM PDT) + + + + + + | Component | Value | Ref Range | Performed | Pathologist | | | | | At | Signature | + + + + + + | Ammonia | 40 (H)Comment: Testing | umol/L | EXTERNAL | | | | performed at [facility];[address] | | LAB | | | | [address];[place] | | | | | | [address] | | | | + + + + + + + + | Specimen | + + | Blood specimen | | (specimen) | + + + +---------+ + + | Performing | Address | City/State/Zipcode | Phone Number | | Organization | | | | + +---------+ + + | EXTERNAL LAB | | | | + +---------+ + + Potassium (06/10/2018 4:04 PM PDT) + + + + + + | Component | Value | Ref Range | Performed | Pathologist | | | | | At | Signature | + + + + + + | K | 4.3Comment: Testing | 3.5 - 4.9 | EXTERNAL | | | | performed at [facility];[address] | mmol/L | LAB | | | | [address];[place], [place] | | | | | | [address] | | | | + + + + + + + + | Specimen | + + | Blood specimen | | (specimen) | + + + +---------+ + + | Performing | Address | City/State/Zipcode | Phone Number | | Organization | | | | + +---------+ + + | EXTERNAL LAB | | | | + +---------+ + + MRI Brain w wo Contrast (06/10/2018 3:21 PM PDT) + + | Specimen | + + | | + + + + + | Impressions | Performed At | + + + | 1. Motion degraded exam. 2. Mild diffusion restriction in the left | | | hippocampus and anteromedial left temporal lobe as well as vague | | | diffusion abnormality in the pulvinar of the left thalamus. This is | | | a common distribution of diffusion restriction related to postictal | | | changes. Acute ischemia and early changes of HSV/limbic | | | encephalitis could be considered in the proper clinical setting | | | although felt to be less likely. 3. Punctate focus of diffusion | | | restriction in the right occipital lobe consistent with acute to | | | subacute infarction. 4. Rounded lesion at the vertex on the left | | | measuring 1.3 x 1.7 cm which appears predominantly extra-axial but | | | could focally involve the cortex of the superior left frontal lobe | | | with heterogeneous internal signal but no convincing evidence of | | | enhancement or significant surrounding vasogenic edema. This is | | | nonspecific and could represent a benign hematoma, cavernous | | | malformation, neoplasm (including metastatic lesion without | | | enhancement due to internal hemorrhage, primary brain cortical | | | neoplasm, and less likely nonenhancing calcified meningioma). No true | | | central diffusion restriction or significant surrounding vasogenic | | | edema to suggest abscess. Recommend short interval follow-up MRI | | | without and with contrast. CT could also be helpful to assess for | | | hemorrhage or calcification. 5. No definite enhancing intracranial | | | lesions although postcontrast images are degraded by artifact. Tiny | | | intraparenchymal mat abscesses may not be detected on this exam. 6. | | | Small area of encephalomalacia and gliosis in the left frontal lobe | | | which may be related to previous infarction or trauma. Signed by: | | | MD Dieter, Joe Sign Date/Time: 06/10/2018 4:33 PM | | + + + + + + | Narrative | Performed At | + + + | MRI BRAIN WITHOUT AND WITH CONTRAST CLINICAL INFORMATION: | | | Cancer/Mets, seizure. COMPARISON: [facility] (06/09/2018); PROCEDURE: | | | Sagittal T1, axial FLAIR, axial T2, axial T1, axial gradient | | | susceptibility, axial T1 enhanced, coronal T1 enhanced and axial DWI. | | | Contrast: 6 ml Gadavist IV. FINDINGS: Multiple sequences are | | | degraded by patient motion predominantly involving postcontrast | | | sequences. Brain: Small area of restricted diffusion conforming to | | | the left hippocampus and to a lesser degree the anteromedial left | | | temporal lobe. Vague area of diffusion hyperintensity in the | | | pulmonary are of the left thalamus. Punctate focus of restricted | | | diffusion in the right occipital lobe subcortical white matter. | | | Small area of encephalomalacia and gliosis in the anterior left | | | frontal lobe which may represent a chronic infarction or possibly | | | posttraumatic encephalomalacia. Few punctate nonspecific T2/FLAIR | | | hyperintensities in the cerebral white matter. Small rounded lesion | | | at the vertex on the left measuring 1.3 x 1.7 cm which appears to | | | have a predominantly extra-axial component but with possible | | | underlying cortical involvement. Signal characteristics include | | | predominant T2 and FLAIR hyperintensity with tiny areas of mild | | | increased T1 signal and minimal peripheral susceptibility. Mild | | | diffusion hyperintensity without profound diffusion restriction based | | | on ADC map. No clear evidence of enhancement. There appears to be | | | minimal T2 FLAIR signal abnormality in the subjacent brain | | | parenchyma on sagittal FLAIR sequence. No midline shift or definite | | | pathologic enhancement. Ventricles and extra-axial fluid spaces: | | | Normal. Sella, suprasellar cistern, and orbits: Normal. Major | | | vascular flow voids: Normal. Calvarium and extracranial soft tissues: | | | Normal. Paranasal sinuses and mastoid air cells: Normal. | | + + + + + | Procedure Note | + + | Frederic, Rad Conversion - 11/07/2018 10:18 PM PDT MRI BRAIN WITHOUT AND WITH CONTRAST | | CLINICAL INFORMATION: | | Cancer/Mets, seizure. | | COMPARISON: | | [facility] (06/09/2018); | | PROCEDURE: | | Sagittal T1, axial FLAIR, axial T2, axial T1, axial gradient | | susceptibility, axial T1 enhanced, coronal T1 enhanced and axial DWI. | | Contrast: 6 ml Gadavist IV. | | FINDINGS: | | Multiple sequences are degraded by patient motion predominantly | | involving postcontrast sequences. | | Brain: Small area of restricted diffusion conforming to the left | | hippocampus and to a lesser degree the anteromedial left temporal lobe. | | Vague area of diffusion hyperintensity in the pulmonary are of the left | | thalamus. Punctate focus of restricted diffusion in the right | | occipital lobe subcortical white matter. | | Small area of encephalomalacia and gliosis in the anterior left frontal | | lobe which may represent a chronic infarction or possibly posttraumatic | | encephalomalacia. Few punctate nonspecific T2/FLAIR hyperintensities | | in the cerebral white matter. | | Small rounded lesion at the vertex on the left measuring 1.3 x 1.7 cm | | which appears to have a predominantly extra-axial component but with | | possible underlying cortical involvement. Signal characteristics | | include predominant T2 and FLAIR hyperintensity with tiny areas of mild | | increased T1 signal and minimal peripheral susceptibility. Mild | | diffusion hyperintensity without profound diffusion restriction based | | on ADC map. No clear evidence of enhancement. There appears to be | | minimal T2 FLAIR signal abnormality in the subjacent brain parenchyma | | on sagittal FLAIR sequence. | | No midline shift or definite pathologic enhancement. | | Ventricles and extra-axial fluid spaces: Normal. | | Sella, suprasellar cistern, and orbits: Normal. | | Major vascular flow voids: Normal. | | Calvarium and extracranial soft tissues: Normal. | | Paranasal sinuses and mastoid air cells: Normal. | | IMPRESSION: | | 1. Motion degraded exam. | | 2. Mild diffusion restriction in the left hippocampus and anteromedial | | left temporal lobe as well as vague diffusion abnormality in the | | pulvinar of the left thalamus. This is a common distribution of | | diffusion restriction related to postictal changes. Acute ischemia and | | early changes of HSV/limbic encephalitis could be considered in the | | proper clinical setting although felt to be less likely. | | 3. Punctate focus of diffusion restriction in the right occipital lobe | | consistent with acute to subacute infarction. | | 4. Rounded lesion at the vertex on the left measuring 1.3 x 1.7 cm | | which appears predominantly extra-axial but could focally involve the | | cortex of the superior left frontal lobe with heterogeneous internal | | signal but no convincing evidence of enhancement or significant | | surrounding vasogenic edema. This is nonspecific and could represent a | | benign hematoma, cavernous malformation, neoplasm (including metastatic | | lesion without enhancement due to internal hemorrhage, primary brain | | cortical neoplasm, and less likely nonenhancing calcified meningioma). | | No true central diffusion restriction or significant surrounding | | vasogenic edema to suggest abscess. Recommend short interval follow-up | | MRI without and with contrast. CT could also be helpful to assess for | | hemorrhage or calcification. | | 5. No definite enhancing intracranial lesions although postcontrast | | images are degraded by artifact. Tiny intraparenchymal mat abscesses | | may not be detected on this exam. | | 6. Small area of encephalomalacia and gliosis in the left frontal lobe | | which may be related to previous infarction or trauma. | | Signed by: MD Garcias Ryan | | Sign Date/Time: 06/10/2018 4:33 PM | + + Potassium (06/10/2018 10:14 AM PDT) + + + + + + | Component | Value | Ref Range | Performed | Pathologist | | | | | At | Signature | + + + + + + | K | 4.0Comment: Testing | 3.5 - 4.9 | EXTERNAL | | | | performed at [facility] | mmol/L | LAB | | | | [address];[place] | | | | | | [address] | | | | + + + + + + + + | Specimen | + + | Blood specimen | | (specimen) | + + + +---------+ + + | Performing | Address | City/State/Zipcode | Phone Number | | Organization | | | | + +---------+ + + | EXTERNAL LAB | | | | + +---------+ + + Magnesium (06/10/2018 10:14 AM PDT) + + + + + + | Component | Value | Ref Range | Performed | Pathologist | | | | | At | Signature | + + + + + + | Magnesium | 2.2Comment: Testing | 1.7 - 2.4 mg/dL | EXTERNAL | | | | performed at [facility] | | LAB | | | | [address] [facility];[place], [place] | | | | | | [address] | | | | + + + [...] + +---------+ + + External Lab: CBC (06/10/2018 4:05 AM PDT) + + + + + + | Component | Value | Ref Range | Performed | Pathologist | | | | | At | Signature | + + + + + + | WBC | 7.22 | 3.80 - 11.00 | EXTERNAL | | | | | K/uL | LAB | | + + + + + + | RED CELL | 3.96 (L) | 4.20 - 5.70 | EXTERNAL | | | COUNT | | M/uL | LAB | | + + + + + + | Hgb | 14.1 | 13.2 - 17.0 | EXTERNAL | | | | | g/dL | LAB | | + + + + + + | Hematocrit, | 39.8 | 39.0 - 50.0 % | EXTERNAL | | | POC | | | LAB | | + + + + + + | MCV | 100.6 (H) | 80.0 - 100.0 fl | EXTERNAL | | | | | | LAB | | + + + + + + | MCH | 35.6 (H) | 27.0 - 34.0 pg | EXTERNAL | | | | | | LAB | | + + + + + + | MCHC | 35.4 | 32.0 - 35.5 | EXTERNAL | | | | | g/dL | LAB | | + + + + + + | RDW-CV | 48.6 | 37 - 53 fl | EXTERNAL | | | | | | LAB | | + + + + + + | Platelet | 224 | 150 - 400 K/uL | EXTERNAL | | | Count | | | LAB | | | Plasma | | | | | + + + + + + | MPV | 8.7 | fl | EXTERNAL | | | | | | LAB | | + + + + + + | Differentia | AUTOMATED | | EXTERNAL | | | l Type | | | LAB | | + + + + + + | % Segmented | 76.14 | % | EXTERNAL | | | | | | LAB | | | Neutrophils | | | | | + + + + + + | % | 14.42 | % | EXTERNAL | | | Lymphocytes | | | LAB | | + + + + + + | % Monocytes | 8.76 | % | EXTERNAL | | | | | | LAB | | + + + + + + | % | 0.31 | % | EXTERNAL | | | Eosinophils | | | LAB | | + + + + + + | % Basophils | 0.37 | % | EXTERNAL | | | | | | LAB | | + + + + + + | Absolute | 5.50 | 1.90 - 7.40 | EXTERNAL | | | Segmented | | K/uL | LAB | | | Neutrophils | | | | | + + + + + + | Absolute | 1.04 | 1.00 - 3.90 | EXTERNAL | | | Lymphocytes | | K/uL | LAB | | + + + + + + | Absolute | 0.63 | 0.00 - 0.80 | EXTERNAL | | | Monocytes | | K/uL | LAB | | + + + + + + | Absolute | 0.02 | 0.00 - 0.50 | EXTERNAL | | | Eosinophils | | K/uL | LAB | | + + + + + + | Absolute | 0.03Comment: Testing | 0.00 - 0.10 | EXTERNAL | | | Basophils | performed at [facility], [address] | K/uL | LAB | | | | [address], | | | | | | [place] [address] | | | | + + + + + + + + | Specimen | + + | Blood specimen | | (specimen) | + + + +---------+ + + | Performing | Address | City/State/Zipcode | Phone Number | | Organization | | | | + +---------+ + + | EXTERNAL LAB | | | | + +---------+ + + Phosphorus (06/10/2018 4:05 AM PDT) + + + + + + | Component | Value | Ref Range | Performed | Pathologist | | | | | At | Signature | + + + + + + | PHOSPHORUS | 2.5Comment: Testing | 2.3 - 4.8 mg/dL | EXTERNAL | | | | performed at [facility], [address] | | LAB | | | | [address], | | | | | | [place] [address] | | | | + + + + + + + + | Specimen | + + | Blood specimen | | (specimen) | + + + +---------+ + + | Performing | Address | City/State/Zipcode | Phone Number | | Organization | | | | + +---------+ + + | EXTERNAL LAB | | | | + +---------+ + + Magnesium (06/10/2018 4:05 AM PDT) + + + + + + | Component | Value | Ref Range | Performed | Pathologist | | | | | At | Signature | + + + + + + | Magnesium | 2.1Comment: Testing | 1.7 - 2.4 mg/dL | EXTERNAL | | | | performed at [facility], [address] | | LAB | | | | [address], | | | | | | [place] [address] | | | | + + [...] + +---------+ + + Basic Metabolic Panel (06/10/2018 4:05 AM PDT) + + + + + + | Component | Value | Ref Range | Performed | Pathologist | | | | | At | Signature | + + + + + + | Na | 132 (L) | 135 - 145 | EXTERNAL | | | | | mmol/L | LAB | | + + + + + + | K | 3.9 | 3.5 - 4.9 | EXTERNAL | | | | | mmol/L | LAB | | + + + + + + | Cl | 97 (L) | 99 - 109 mmol/L | EXTERNAL | | | | | | LAB | | + + + + + + | CO2 | 25 | 23 - 32 mmol/L | EXTERNAL | | | | | | LAB | | + + + + + + | Anion Gap | 14 | 5 - 20 mmol/L | EXTERNAL | | | | | | LAB | | + + + + + + | Glucose, | 97 | 65 - 99 mg/dL | EXTERNAL | | | Fasting | | | LAB | | + + + + + + | BUN | 9 | 8 - 25 mg/dL | EXTERNAL | | | | | | LAB | | + + + + + + | Creatinine | 0.6 (L) | 0.70 - 1.30 | EXTERNAL | | | | | mg/dL | LAB | | + + + + + + | BUN/Creatin | 15 | | EXTERNAL | | | ine Ratio | | | LAB | | + + + + + + | Calcium | 8.4 (L) | 8.5 - 10.5 | EXTERNAL | | | | | mg/dL | LAB | | + + + + + [...] BY | | | | | | 1.210.This eGFR is | | | | | | calculated using the | | | | | | MDRD IDMS traceable | | | | | | equation.Testing | | | | | | performed at [facility], [address] | | | | | | [facility], | | | | | | [place] [address] | | | | + + + [...] +---------+ + + XR Chest 1 Vw (06/09/2018 10:40 PM PDT) + + | Specimen | + + | | + + + + + | Impressions | Performed At | + + + | ETT 4.1 cm above kavitha. No pneumothorax or focal consolidation. | | | Trace right pleural effusion. Signed by: Kris Roy Sign | | | Date/Time: 06/09/2018 10:59 PM | | + + + + + + | Narrative | Performed At | + + + | CHEST ONE VIEW CLINICAL INFORMATION: Tubes location. COMPARISON: | | | END SIGMOID IMAGING (04/30/2015); XR CHEST 1 VIEW (01/25/2015); XR | | | CHEST 1 VIEW (01/24/2015); XR CHEST 1 VIEW (01/23/2015); FINDINGS: | | | Right chest port tip overlies the superior vena cava near the | | | atrial-caval junction. ETT 4.1 cm above kavitha. Enteric tube tip | | | off film inferiorly. No pneumothorax or focal consolidation. | | | Trace right pleural effusion. Mild patchy right lung scarring. | | | No acute bone abnormalities. | | + + + + + | Procedure Note | + + | Frederic, Rad Conversion - 11/07/2018 10:18 PM PDT CHEST ONE VIEW | | CLINICAL INFORMATION: | | Tubes location. | | COMPARISON: | | END SIGMOID IMAGING (04/30/2015); XR CHEST 1 VIEW (01/25/2015); XR CHEST | | 1 VIEW (01/24/2015); XR CHEST 1 VIEW (01/23/2015); | | FINDINGS: | | Right chest port tip overlies the superior vena cava near the | | atrial-caval junction. ETT 4.1 cm above kavitha. Enteric tube tip off | | film inferiorly. No pneumothorax or focal consolidation. Trace right | | pleural effusion. Mild patchy right lung scarring. No acute bone | | abnormalities. | | IMPRESSION: | | ETT 4.1 cm above kavitha. No pneumothorax or focal consolidation. | | Trace right pleural effusion. | | Signed by: Kris Roy | | Sign Date/Time: 06/09/2018 10:59 PM | + + Gram Stain, reflex Sputum Culture (06/09/2018 10:37 PM PDT) + + | Specimen | + + | Body fluid sample | | (specimen) | + + + + + | Narrative | Performed At | + + + | Specimen Description SPUTUM GRAM STAIN | EXTERNAL LAB | | GREATER THAN 10 WBCS/LPF | | | LESS THAN 10 SEC/LPF | | | 2+ | | | GRAM POSITIVE COCCI | | | 2+ | | | GRAM NEGATIVE RODS | | | CULTURE 3+ | | | NORMAL UPPER | | | RESPIRATORY NIGHAT | | + + + + +---------+ + + | Performing | Address | City/State/Zipcode | Phone Number | | Organization | | | | + +---------+ + + | EXTERNAL LAB | | | | + +---------+ + + MRSA NAAT (06/09/2018 10:00 PM PDT) + + | Specimen | + + | | + + + + + | Narrative | Performed At | + + + | SOURCE NARES(NOSE) MRSA | EXTERNAL LAB | | PCR NEGATIVE Testing | | | performed at [facility];[place] [address] | | + + + + +---------+ + + | Performing | Address | City/State/Zipcode | Phone Number | | Organization | | | | + +---------+ + + | EXTERNAL LAB | | | | + +---------+ + + Phosphorus (06/09/2018 9:37 PM PDT) + + + + + + | Component | Value | Ref Range | Performed | Pathologist | | | | | At | Signature | + + + + + + | PHOSPHORUS | 2.5Comment: Testing | 2.3 - 4.8 mg/dL | EXTERNAL | | | | performed at [facility];[address] | | LAB | | | | [address];[place], [place] | | | | | | [address] | | | | + + + + + + + + | Specimen | + + | Blood specimen | | (specimen) | + + + +---------+ + + | Performing | Address | City/State/Zipcode | Phone Number | | Organization | | | | + +---------+ + + | EXTERNAL LAB | | | | + +---------+ + + Magnesium (06/09/2018 9:37 PM PDT) + + + + + + | Component | Value | Ref Range | Performed | Pathologist | | | | | At | Signature | + + + + + + | Magnesium | 1.7Comment: Testing | 1.7 - 2.4 mg/dL | EXTERNAL | | | | performed at [facility] | | LAB | | | | [address];[place], [place] | | | | | | [address] | | | | + + [...] + +---------+ + + Basic Metabolic Panel (06/09/2018 9:37 PM PDT) + + + + + + | Component | Value | Ref Range | Performed | Pathologist | | | | | At | Signature | + + + + + + | Na | 131 (L) | 135 - 145 | EXTERNAL | | | | | mmol/L | LAB | | + + + + + + | K | 3.7 | 3.5 - 4.9 | EXTERNAL | | | | | mmol/L | LAB | | + + + + + + | Cl | 97 (L) | 99 - 109 mmol/L | EXTERNAL | | | | | | LAB | | + + + + + + | CO2 | 27 | 23 - 32 mmol/L | EXTERNAL | | | | | | LAB | | + + + + + + | Anion Gap | 11 | 5 - 20 mmol/L | EXTERNAL | | | | | | LAB | | + + + + + + | Glucose, | 112 (H) | 65 - 99 mg/dL | EXTERNAL | | | Fasting | | | LAB | | + + + + + + | BUN | 7 (L) | 8 - 25 mg/dL | EXTERNAL | | | | | | LAB | | + + + + + + | Creatinine | 0.50 (L) | 0.70 - 1.30 | EXTERNAL | | | | | mg/dL | LAB | | + + + + + + | BUN/Creatin | 14 | | EXTERNAL | | | ine Ratio | | | LAB | | + + + + + + | Calcium | 8.2 (L) | 8.5 - 10.5 | EXTERNAL | | | | | mg/dL | LAB | | + + + + + [...] BY | | | | | | 1.210.This eGFR is | | | | | | calculated using the | | | | | | MDRD IDMS traceable | | | | | | equation.Testing | | | | | | performed at [facility] | | | | | | [facility];[place], [place] | | | | | | [address] | | | | + + + + + + + + | Specimen | + + | Blood specimen | | (specimen) | + + + +---------+ + + | Performing | Address | City/State/Zipcode | Phone Number | | Organization | | | | + +---------+ + + | EXTERNAL LAB | | | | + +---------+ + + POC Glucose (06/09/2018 9:05 PM PDT) + + + + + + | Component | Value | Ref Range | Performed | Pathologist | | | | | At | Signature | + + + + + + | Glucose, | 110 (H)Comment: Testing | 65 - 99 mg/dL | EXTERNAL | | | Fingerstick | performed at [facility];[address] | | LAB | | | | [address];[place], [place] | | | | | | [address] | | | | + + + [...] + | Diagnosis | + + | Stupor Other alteration of consciousness | + + | Postictal state (HCC) | + + | Acute respiratory failure with hypoxia (HCC) Acute respiratory failure | + + | Altered mental status, unspecified altered mental status type | + + | ETOH abuse Alcohol abuse, unspecified | + + | Mass of brain Unspecified condition of brain | + + | Chronic systolic congestive heart failure (HCC) Chronic systolic heart failure | + + | Abnormal findings on diagnostic imaging of skull and head, not elsewhere classified | + + documented in this encounter
--- OUTSIDE RECORDS SUMMARY | ~2019-02-11 | XMS | Encounter Summary ---
Demographics + + + | Address | [address] | | | [place] [address] | + + + | Home Phone [...] + + | Author | [facility] | | | and [place] | + + + | Organization | [facility] | | | [...] Team Providers + +------+ + | Care Data Collector Name | Role | Phone | + +------+ + | Kris Hernandez | PCP | | + +------+ + Reason for Visit + + + | Reason | Comments | + + + | Referral | | + + + Encounter Details +--------+ + + + + | Date | Type | Department | Care Team | Description | +--------+ + + + + | 12/14/ | Telephone | [facility] | Saleem Shore Bro, | Referral | | 2019 | | GENERAL SURGERY [address] | MD [address] | | | | | [address] | [facility] [address] | | | | | [place], [place] | [place] [address] | | | | | [address] | [phone] | | | | | [phone] | | | +--------+ + + + [...] [address] | | | | | | [place] [address] | | | | | | [phone] | | | | | | | | +--------+ + + + + | 02/21/ | Surgery | | Saleem Shore, | COLONOSCOPY | | 2018 | | | MD Rebecca BRUNO | | | | | | [address] | | | | | | [place] [address] | | | | | | [phone] | | | | | | | | +--------+ + + + + documented as of this encounter Visit Diagnoses Not on filedocumented in this encounter"
--- OUTSIDE RECORDS SUMMARY | ~2019-02-11 | XMS | Encounter Summary ---
Demographics + + + | Address | [address] | | | [place] [address] | + + + | Home Phone | | + + + | Preferred Language | Unknown | + + + | Marital Status | Single | + + + | Gnosticist Affiliation | Unknown | + + + | Race | Unknown | + + + | Ethnic Group | Unknown | + + + Author + + + | Author | [facility] | | | and [place] | + + + | Organization | [facility] | | | [...] Team Providers + +------+ + | Care Cyber Crime Investigator Name | Role | Phone | + [...] Provider Unknown | | | | | [facility] [place] | [phone] | | | | | [address] | | | | | | [phone] | | | +--------+ + + + [...] | | | | | | [place] [address] | | | | | | [phone] | | | | | | | | +--------+ + + + + | 02/21/ | Surgery | | Saleem Shore, | COLONOSCOPY | | 2018 | | | MD Rebecca BRUNO | | | | | | [address] | | | | | | [place] [address] | | | | | | [phone] | | | | | | | | +--------+ + + + + documented as of this encounter Visit Diagnoses Not on filedocumented in this encounter"
--- OUTSIDE RECORDS SUMMARY | ~2019-02-11 | XMS | Encounter Summary ---
Demographics + + + | Address | [address] | | | [place] [address] | + + + | Home Phone | | + + + | Preferred Language | Unknown | + + + | Marital Status | Single | + + + | Christianity Affiliation | Unknown | + + + | Race | Unknown | + + + | Ethnic Group | Unknown | + + + Author + + + | Author | [facility] | | | and [place] | + + + | Organization | [facility] | | [...] Team Providers + +------+ + | Care Liquid Floor And Wall Applier Name | Role | Phone | + [...] + + | 12/14/ | Telephone | [facility] | Saleem Shore Bro, | Referral | | 2019 | | GENERAL SURGERY [address] | MD [address] | | | | | [address] | [facility] [address] | | | | | [place], [place] | [place] [address] | | | | | [address] | [phone] | | | | | [phone] | | | +--------+ + + + [...] [address] | | | | | | [place] [address] | | | | | | [phone] | | | | | | | | +--------+ + + + + | 02/21/ | Surgery | | Saleem Shore, | COLONOSCOPY | | 2018 | | | MD Rebecca BRUNO | | | | | | [address] | | | | | | [place] [address] | | | | | | [phone] | | | | | | | | +--------+ + + + + documented as of this encounter Visit Diagnoses Not on filedocumented in this encounter"
--- OUTSIDE RECORDS SUMMARY | ~2019-02-11 | XMS | Clinical Summary ---
Demographics + + + | Address | [address] | | | [place] [address] | + + + | Home Phone | | + + + | Preferred Language | Unknown | + + + | Marital Status | Single | + + + | Confucianist Affiliation | Unknown | + + + | Race | Unknown | + + + | Ethnic Group | Unknown | + + + Author + + + | Author | [facility] (Historical as of | | | 11-11-18) | + + + | Organization | [facility] (Historical as of | | | 11-11-18) [...] Team Providers + +------+ + | Care Bottle Tester Name | Role | Phone | + [...] +------+-------+ + | MEDICARE | MEDICA | [id number] | | | [address] | | | RE | | | | [place] [address] | | | IP-OP | | | | | + +--------+ +------+-------+ + | MEDICAID | EASTER | [id number] | | | [address] | | | N | | | | [place], [place] | | | [place] | | | | [address] | | | NET LEAD ARCHITECT | | | | | + +--------+ [...] | 1951 | [phone] | [place] [address] | | | lee | | | [phone] | | + +--------+ +--------+ + +
--- OUTSIDE RECORDS SUMMARY | ~2019-02-11 | XMS | Encounter Summary ---
Demographics + + + | Address | [address] | | | [place] [address] | + + + | Home Phone [...] + + + | Author | [facility] | | | and [place] | + + + | Organization | [facility] | | | [...] Team Providers + +------+ + | Care Home Lighting Adviser Name | Role | Phone | + +------+ + PCP | Unavailable | + +------+ + Encounter Details +--------+ + + + + | Date | Type | Department | Care Team | Description | +--------+ + + + + | 12/19/ | Hospital | [facility] | Conversion | | | 2015 | Encounter | [facility] | Transaction, | | | | | CLINIC [address] | Provider Unknown | | | | | [place] | [phone] | | | | | [address] | | | | | | [phone] | | | +--------+ + + + [...] | | | | [place] [address] | | | | | | [phone] | | | | | | | | +--------+ + + + + | 02/21/ | Surgery | | Saleem Shore, | COLONOSCOPY | | 2019 | | | MD Rebecca BRUNO | | | | | | [address] | | | | | | [place] [address] | | | | | | [phone] | | | | | | | | +--------+ + + + + documented as of this encounter Visit Diagnoses Not on filedocumented in this encounter"
--- OUTSIDE RECORDS SUMMARY | ~2019-02-11 | XMS | Encounter Summary ---
Demographics + + + | Address | [address] | | | [place] [address] | + + + | Home Phone [...] Team Providers + +------+ + | Care [employer] Operator Chief Name | Role | Phone | + +------+ + PCP | Unavailable | + +------+ + Encounter Details +--------+ + + + + | Date | Type | Department | Care Team | Description | +--------+ + + + + | 06/25/ | Hospital | [facility] | Conversion | | | 2016 | Encounter | [facility] | Transaction, | | | | | CLINIC [address] | Provider Unknown | | | | | [place] | [phone] | | | | | [phone] | | | | | | [phone] | | | +--------+ + + + [...] [address] | | | | | | [place] [address] | | | | | | [phone] | | | | | | | | +--------+ + + + + | 02/21/ | Surgery | | Saleem Shore, | COLONOSCOPY | | 2019 | | | MD [address] | | | | | | [address] | | | | | | [place] [address] | | | | | | [phone] | | | | | | | [...] | | | | | | [place] [address] | | | | + + + + + + | RED CELL | 4.22Comment: Testing | 4.20 - 5.70 | EXTERNAL | | | COUNT | performed at [facility], [address] | M/uL | LAB | | | | [address], | | | | | | [place] [address] | | | | + + + + + + | Hgb | 13.6Comment: Testing | 13.2 - 17.0 | EXTERNAL | | | | performed at [facility], [address] | g/dL | LAB | | | | [address], | | | | | | [place] [address] | | | | + + + + + + | Hematocrit, | 39.2Comment: Testing | 39.0 - 50.0 % | EXTERNAL | | | POC | performed at [facility], [address] | | LAB | | | | [address], | | | | | | [place] [address] | | | | + + + + + + | MCV | 93.0Comment: Testing | 80.0 - 100.0 fl | EXTERNAL | | | | performed at [facility], [address] | | LAB | | | | [address], | | | | | | [place] [address] | | | | + + + + + + | MCH | 32.4Comment: Testing | 27.0 - 34.0 pg | EXTERNAL | | | | performed at [facility], [address] | | LAB | | | | [address], | | | | | | [place] [address] | | | | + + + + + + | MCHC | 34.8Comment: Testing | 32.0 - 35.5 | EXTERNAL | | | | performed at [facility], [address] | g/dL | LAB | | | | [address], | | | | | | [place] [address] | | | | + + + + + + | RDW-CV | 44.2Comment: Testing | 37 - 53 fl | EXTERNAL | | | | performed at [facility], [address] | | LAB | | | | [address], | | | | | | [place] [address] | | | | + + + + + + | Platelet | 191Comment: Testing | 150 - 400 K/uL | EXTERNAL | | | Count | performed at [facility], [address] | | LAB | | | Plasma | [address], | | | | | | [place] [address] | | | | + + + + + + | MPV | 8.5Comment: Testing | fl | EXTERNAL | | | | performed at [facility], [address] | | LAB | | | | [address], | | | | | | [place] [address] | | | | + + + + + + | Differentia | AUTOMATEDComment: | | EXTERNAL | | | l Type | Testing performed at | | LAB | | | | [facility], [address] | | | | | | [place] | | | | | | [address] | | | | + + + + + + | % Segmented | 58.82Comment: Testing | % | EXTERNAL | | | | performed at [facility], [address] | | LAB | | | Neutrophils | [address] [place], | | | | | | [place] [address] | | | | + + + [...] | | | | [place] [address] | | | | + + + + + + | % | 2.36Comment: Testing | % | EXTERNAL | | | Eosinophils | performed at [facility], [address] | | LAB | | | | [address], | | | | | | [place] [address] | | | | + + + + + + | % Basophils | 1.35Comment: Testing | % | EXTERNAL | | | | performed at [facility], [address] | | LAB | | | | [address], | | | | | | [place] [address] | | | | + + + + + + | Absolute | 2.71Comment: Testing | 1.90 - 7.40 | EXTERNAL | | | Segmented | performed at [facility], [address] | K/uL | LAB | | | Neutrophils | [address], | | | | | | [place] [address] | | | | + + + + + + | Absolute | 1.34Comment: Testing | 1.00 - 3.90 | EXTERNAL | | | Lymphocytes | performed at [facility], [address] | K/uL | LAB | | | | [address], | | | | | | [place] [address] | | | | + + + + + + | Absolute | 0.39Comment: Testing | 0.00 - 0.80 | EXTERNAL | | | Monocytes | performed at [facility], [address] | K/uL | LAB | | | | [address], | | | | | | [place] [address] | | | | + + + + + + | Absolute | 0.11Comment: Testing | 0.00 - 0.50 | EXTERNAL | | | Eosinophils | performed at [facility], [address] | K/uL | LAB | | | | [address], | | | | | | [place] [address] | | | | + + + + + + | Absolute | 0.06Comment: Testing | 0.00 - 0.10 | EXTERNAL | | | Basophils | performed at [facility], [address] | K/uL | LAB | | | | [place], | | | | | | [place] [address] | | | | + + + [...] | | | | [place] [address] | | | | + + + + + + | K | 4.1Comment: Testing | 3.5 - 4.9 | EXTERNAL | | | | performed at [facility], [address] | mmol/L | LAB | | | | [place], | | | | | | [place] [address] | | | | + + + + + + | Cl | 104Comment: Testing | 99 - 109 mmol/L | EXTERNAL | | | | performed at [facility], [address] | | LAB | | | | [address], | | | | | | [place] [address] | | | | + + + + + + | CO2 | 26Comment: Testing | 23 - 32 mmol/L | EXTERNAL | | | | performed at [facility], [address] | | LAB | | | | [address], | | | | | | [place] [address] | | | | + + + + + + | Anion Gap | 9Comment: Testing | 5 - 20 mmol/L | EXTERNAL | | | | performed at [facility], [address] | | LAB | | | | [address], | | | | | | [place] [address] | | | | + + + + + + | Glucose, | 86Comment: Testing | 65 - 99 mg/dL | EXTERNAL | | | Fasting | performed at [facility], [address] | | LAB | | | | [address], | | | | | | [place] [address] | | | | + + + + + + | BUN | 9Comment: Testing | 8 - 25 mg/dL | EXTERNAL | | | | performed at [facility], [address] | | LAB | | | | [address], | | | | | | [place] [address] | | | | + + + + + + | Creatinine | 0.74Comment: Testing | 0.70 - 1.30 | EXTERNAL | | | | performed at [facility], [address] | mg/dL | LAB | | | | [address], | | | | | | [place] [address] | | | | + + + + + + | BUN/Creatin | 12Comment: Testing | | EXTERNAL | | | ine Ratio | performed at [facility], [address] | | LAB | | | | [address], | | | | | | [place] [address] | | | | + + + + + + | Calcium | 9.1Comment: Testing | 8.5 - 10.5 | EXTERNAL | | | | performed at [facility], [address] | mg/dL | LAB | | | | [place], | | | | | | [place] [address] | | | | + + + + + + | Protein, | 7.3Comment: Testing | 6.3 - 8.2 g/dL | EXTERNAL | | | Total | performed at [facility], [address] | | LAB | | | | [place], | | | | | | [place] [address] | | | | + + + + + + | Albumin | 3.7Comment: Testing | 3.3 - 4.8 g/dL | EXTERNAL | | | | performed at [facility], [address] | | LAB | | | | [address], | | | | | | [place] [address] | | | | + + + + + + | Globulin | 3.6Comment: Testing | 1.3 - 4.9 g/dL | EXTERNAL | | | | performed at [facility], [address] | | LAB | | | | [address], | | | | | | [place] [address] | | | | + + + + + + | A/G Ratio | 1.0Comment: Testing | 1.0 - 2.4 | EXTERNAL | | | | performed at [facility], [address] | | LAB | | | | [address], | | | | | | [place] [address] | | | | + + + + + + | Bilirubin | 0.6Comment: Testing | 0.1 - 1.5 mg/dL | EXTERNAL | | | Total | performed at [facility], [address] | | LAB | | | | [address], | | | | | | [place] [address] | | | | + + + + + + | ALP, | 116 (H)Comment: Testing | 35 - 115 U/L | EXTERNAL | | | External | performed at [facility], [address] | | LAB | | | | [place], | | | | | | [place] [address] | | | | + + + + + + | AST | 15Comment: Testing | 10 - 45 U/L | EXTERNAL | | | | performed at [facility], [address] | | LAB | | | | [address], | | | | | | [place] [address] | | | | + + + + + + | ALT | 14Comment: Testing | 10 - 65 U/L | EXTERNAL | | | | performed at [facility], [address] | | LAB | | | | [address], | | | | | | [place] [address] | | | | + + + [...] [place], | | | | | | [place] [address] | | | | + + + [...]
--- OUTSIDE RECORDS SUMMARY | ~2019-02-11 | XMS | Encounter Summary ---
Demographics + + + | Address | [address] | | | [place] [address] | + + + | Home Phone | | + + + | Preferred Language | Unknown | + + + | Marital Status | Single | + + + | Moravian Affiliation | Unknown | + + + | Race | Unknown | + + + | Ethnic Group | Unknown | + + + Author + + + | Author | [facility] | | | [facility] [place] | + + + | Organization | [facility] | | | [facility] [place] | + [...] Team Providers + +------+ + | Care Head Of Music Name | Role | Phone | + +------+ + PCP | Unavailable | + +------+ + Encounter Details +--------+ + + + + | Date | Type | Department | Care Team | Description | +--------+ + + + + | 06/09/ | [facility] | Edy La | [place]; Postictal | | 2019 - | Encounter | [facility] | MD Tom [address] | state (HCC); Acute | | | | CARE FLOOR [address] [place], [place] | respiratory failure | | 06/22/ | | [address] | [address] | with hypoxia (HCC); | | 2019 | | [place], [place] | | Altered mental | | | | [address] | | status, unspecified | | | | [phone] | | altered mental | | | [...] Service: Hospitalist Author Type: Physician Filed: 06/22/18 180 Date of Service: 06/22/18 1025 Status: Signed Waste Reclaimer: Nba Cr MD (Physician) Patient: Jose Eaton [...] was admitted to ICU on transfer from [facility] 06/09/2018 with altered mental status with the patient's having last drink on 06/07/2018, as well as seizures at [facility], patient was intubated on admission and was [...] solitary focus of neurocysticercosis. Signed by: James Daltno Sign Date/Time: 1:05 PM Mri Brain With [...] Comments: Send report to Dr. Pederson at [facility] neurosurgery Order Specific Question Answer Comments Reason for Exam: follow up brain mass Is MRI exam to be done with sedation/ anesthesia? No What is the preferred imaging location? [facility] Referral to Speech Therapy Referral Priority: Routine [...] speech Kris Hernandez PA-C [address] [facility] [place] [address] Schedule an appointment as soon as possible for a visit in 3 day(s) Wilner Pederson DO [address] [place] [address] Follow up in 3 month(s) Jazmyne Hairston MD [address] [place] [address] Call in 1 month Medication List [...] MG tablet thiamine 100 MG tablet Disposition: halfway Condition: Stable Code Status: Prior Discharge medications reconciliation was completed by myself. . Case management who was [place] Citizen-speaking explained discharge plan and medications to the [...] (none) Author Type: Registered Nurse Filed: 06/22/18 8290 Date of Service: 06/22/181024 Status: Signed Waste Reclaimer: Anne Marie Greenfield RN (Registered Nurse) Disposition: [facility] Transportation: [place] [facility]. All orders, signed AVS, and prescriptions have been faxed, confirmed received by familia Greer liquor commissioner of [facility]. All DC paperwork completed Patient and family in agreement with discharge plan Medicare important message (N/A): ANNE MARIE GREENFIELD, TIMOTEO,. onver alex Transaction, Provider Unknown - 06/22/2018 10:24 AM PDT Nurse Progress Note by Opal Gagnon RN at 06/22/18 1024 Author: Opal Gagnon RN Service: (none) Author Type: Registered Nurse Filed: 06/22/18 1025 Date of Service: 06/22/18 1024 Status: Signed Waste Reclaimer: Opal Gagnon RN (Registered Nurse) Pt discharged via [facility] transportation at this time. onver alex Transaction, Provider Unknown - 06/22/2018 10:00 AM PDT Nurse Progress Note by Opal Gagnon RN at 06/22/18 1000 Author: Opal Gagnon RN Service: (none) Author Type: Registered Nurse Filed: 06/22/18 1007 Date of Service: 06/22/18 1000 Status: Signed Waste Reclaimer: Opal Gagnon RN (Registered Nurse) Report called to Chelle MAHMOOD at [facility] in [place] for transfer of care to facility. No questions or concerns at this time. onver alex Transaction, Provider Unknown - 06/22/2018 9:58 AM PDT Case Management by Paula Lubin RN at 06/22/18 0958 Author: Paula Lubin RN Service: (none) Author Type: Registered Nurse Filed: 06/22/1858 Date of Service: 06/22/1858 Status: Signed Waste Reclaimer: Paula Lubin RN (Registered Nurse) Notified pt's brother Gustabo that pt is discharging at 1000. No questions or concerns. [place] onver alex Transaction, Provider Unknown - 06/22/2018 8:41 AM PDT Case Management by Anne Marie Greenfield RN at 06/22/18 0841 Author: Anne Marie Greenfield RN Service: (none) Author Type: Registered Nurse Filed: 06/22/18 1001 Date of Service: 06/22/18840 Status: Signed Waste Reclaimer: Anne Marie Greenfield RN (Registered Nurse) Discharge planning: CM placed call to [facility] [phone] to schedule pt transport to [facility], very long hold, left message with telephone. [...] 06/22/18619 Date of Service: 06/22/18618 Status: Signed Waste Reclaimer: Ebony Olivares RN (Registered Nurse) Pt slept off and on throughout shift. No acute changes. Continued to refuse IV placement an d tele leads. INC[employer]. When asked if he could tell this nurse where he is at he would state in dominican "you insult me the questions you ask me." End of shift review complete. onver alex Transaction, Provider Unknown - 06/21/2018 6:34 PM PDT Nurse Progress Note by David Harmon RN at 06/21/181833 Author: David Harmon RN Service: (none) Author Type: Registered Nurse Filed: 06/21/181837 Date of Service: 06/21/181833 Status: Signed Waste Reclaimer: David Harmon RN (Registered Nurse) Pt will likely discharge tomorrow to [facility]. Pt had 2 bouts of incontinence in [...] 06/21/181643 Date of Service: 06/21/181642 Status: Signed Waste Reclaimer: Areli Zuluaga RN (Registered Nurse) Discharge Plan: [facility] to accept tomorrow. Meghan would like a [...] 06/21/181613 Date of Service: 06/21/181613 Status: Signed Waste Reclaimer: Saritha Brown RD (Registered Dietitian) 06/21/18 1600 [...] Brown RD, CD ovarr Lucía david MA, CCC-IMPLANT COORDINATOR - 06/21/2018 2:35 PM PDTFormatting of this note might be differ ent from the original. Therapy Progress Note by Lucía Randle MA CCC-IMPLANT COORDINATOR at 06/21/18 6254 Author: Lucía Randle MA CCC-IMPLANT COORDINATOR Service: (none) Author Type: Speech and Language Pathologist Filed: 06/21/18 1507 Date of Service: 06/21/18 1435 Status: Signed Waste Reclaimer: Lucía Randle MA CCC-IMPLANT COORDINATOR (Speech and Language Pathologist) BEDSIDE SWALLOW IMPLANT COORDINATOR Last Visit IMPLANT COORDINATOR Received On: 06/21/18 Requires IMPLANT COORDINATOR Follow Up: No Recommendations Liquids Consistency Recommendations: [...] soft breads. Liquids: Thin liquids: regular consistency IMPLANT COORDINATOR Ready for Discharge: Yes Swallowing Treatment: Yes [...] Management by Paula Lubin RN at 06/21/18 0691 Author: Paula Lubin RN Service: (none) Author Type: Registered Nurse Filed: 06/21/18 9350 Date of Service: 06/21/181427 Status: Addendum Waste Reclaimer: Paula Lubin RN (Registered Nurse) Related Notes: Original Note by Paula Lubin RN (Registered Nurse) filed at 06/21/18 143 6 Tc to pt's son, Byron, [phone] re d/c planning. Byron agrees to sending pt to [facility] not interested in obtaining address/phone number for facility, stated he would "ask frie nds where it's located". Tc to pt's brotherGustabo, to update on d/c to [facility], no questions or con cerns. Transport arranged for at 0000 via [employer], [employer] Nba Mantilla Kyler M, MD - 06/21/2018 8:34 AM PDTFormatting of this note might be different f rom the original. Progress Notes by Nba Cr MD at 06/21/18833 Author: Nba Cr MD Service: Hospitalist Author Type: Physician Filed: 06/21/18 1708 Date of Service: 06/21/18833 Status: Signed Waste Reclaimer: Nba Cr MD (Physician) [facility] Service: Hospitalist Progress Note Hospital Day: LOS: 12 days SUBJECTIVE Patient Summary: 68-year-old [place] Citizen-speaking gentleman with a history of rectal canc [...] and examined at bedside on follow-up with [facility] certifjae d parts lister, today the patient is oriented to person, [...] Lovenox discontinued in anticipation for surgery. Through [facility] certified parts lister I explained radiology and lab findings and [...] manage ment as well as Computerized Physician Asset Card Clerk. Dictation software, [employer] Mir, used which may contain error for similar [...] 06/21/1834 Date of Service: 06/21/18531 Status: Signed Waste Reclaimer: Joe Bolstad, RN (Registered Nurse) Pt's q4h [...] 06/20/181831 Date of Service: 06/20/181829 Status: Signed Waste Reclaimer: David Harmon RN (Registered Nurse) Pt had [...] Date of Service: 06/20/18 1033 Status: Signed Waste Reclaimer: Nba Strong PT (Physical Therapist) 06/20/18 1033 [...] Date of Service: 06/20/18 1011 Status: Addendum Waste Reclaimer: Anne Marie Greenfield RN (Registered Nurse) Related Notes: Original Note by Anne Marie Greenfield RN (Registered Nurse) filed at 06/20/18 1537 Discharge planning: Message left for Nolberto, coordinator of [facility] [phone], to on referral se nt. Message also left to Zoey, admission coordinator of [facility] [phone]. 1430: Message received from Nolberto, admission coordinator of [facility], jozef is not accepted at [facility]. 1500: Pt can be transferred to [facility] when he is medically ready for transf er. onver alex Transaction, Provider Unknown - 06/20/2018 9:45 AM PDT Therapy Progress Note by GABRIELLA Nguyen/Ada at 06/20/18 0945 Author: IRAM Nguyen Service: (none) Author Type: Occupational Therapist Filed: 06/20/18 1017 Date of Service: 06/20/18 0945 Status: Signed Waste Reclaimer: IRAM Nguyen (Occupational Therapist) OCCUPATIONAL THERAPY REASSESSMENT OT Received On: 06/20/18 Reason for Treatment: Other (comment) (Seizures, AMS, chronic strokes, brain mass) Requires OT Follow Up: Yes OT Eval/Reassessment Date: 06/20/18 (OT evaluation completed) Assistance Required: 1 person Search Director Needed: Yes, Search Director present Family/Caregiver Present: No Recommendation: SNF Equipment [...] reintegration Follow up by: [] OT [] DIRECTOR OF PLAYER PERSONNEL [x] Either Precautions Other Precautions: Fall precautions, [...] Notes by Nba Cr MD at 06/20/18 7985 Author: Nba Cr MD Service: Hospitalist Author Type: Physician Filed: 06/20/18 1832 Date of Service: 06/20/18 0855 Status: Signed Waste Reclaimer: Nba Cr MD (Physician) [facility] Service: Hospitalist Progress Note Hospital Day: LOS: 11 days SUBJECTIVE Patient Summary: 68-year-old [place] Citizen-speaking gentleman with a history of rectal canc [...] and examined at bedside on follow-up with [facility] certifie d parts lister, the patient is oriented to place, he [...] Lovenox discontinued in anticipation for surgery. Through [facility] certified parts lister I explained radiology and lab findings and [...] and management as well as Computerized Physician Asset Card Clerk. Dictation software, [employer], used which may contain error for similar [...] Note by Wilner Gambino RN at 06/20/18 040 Author: Wilner Gambino RN Service: (none) Author Type: Registered Nurse Filed: 06/20/18 0618 Date of Service: 06/20/18 0409 Status: Signed Waste Reclaimer: Wilner Gambino RN (Registered Nurse) End of [...] 06/19/181749 Date of Service: 06/19/181748 Status: Signed Waste Reclaimer: Mulu Vazquez RN (Registered Nurse) Pt has [...] Date of Service: 06/19/18 1252 Status: Addendum Waste Reclaimer: Anne Marie Greenfield RN (Registered Nurse) Related Notes: Original Note by Anne Marie Greenfield RN (Registered Nurse) filed at 06/19/18 1255 Discharge planning: Message left for pt's son Byron Eaton [phone], awaiting his call back to disc uss PT's recommendation. PATIENT SITTER FREE FROM 06/18. 1400: Referrals sent to Emil Farah and Nahum Hutchison. Rosie León MD - 06/19/2018 11:43 AM PDTFormatting of this note might be different from t he original. Progress Notes by Rosie Lindsay MD at 06/19/18 1140 Author: Rosie Lindsay MD Service: Hospitalist Author Type: Physician Filed: 06/19/18 140 Date of Service: 06/19/18 4022 Status: Addendum Waste Reclaimer: Rosie Lindsay MD (Physician) Related Notes: Original Note by Rosie Lindsay MD (Physician) filed at 06/19/18 1407 [facility] Service: Hospitalist Progress Note Hospital Day: LOS: 10 days SUBJECTIVE Patient Summary: 68-year-old [place] Citizen-speaking gentleman with a history of rectal canc [...] He thinks th at he is in [place]. Scheduled Medications levETIRAcetam 500 mg Oral BID [...] PM This entry has been created using [employer] Speech Recognition software and [employer]. The entry has been reviewed and there may still exist sound alike word errors. onversion Trans action, Provider Unknown - 06/19/2018 5:51 AM PDT Nurse Progress Note by Tae Wahl RN at 06/19/18 0551 Author: Tae Wahl RN Service: (none) Author Type: Registered Nurse Filed: 06/19/1851 Date of Service: 06/19/18550 Status: Signed Waste Reclaimer: Tae Wahl RN (Registered Nurse) Chart check complete onver alex Transaction, Provider Unknown - 06/18/2018 4:13 PM PDT Nurse Progress Note by Ignacio Ludwig RN at 06/18/18 7383 Author: Ignacio Ludwig RN Service: (none) Author Type: Registered Nurse Filed: 06/18/18 161 Date of Service: 06/18/181612 Status: Signed Waste Reclaimer: Ignacio Ludwig RN (Registered Nurse) Chart check complete. illon nieves, Rosie Rodriguez MD - 06/18/2018 10:41 AM PDTFormatting of this note might be different from t he original. Progress Notes by Rosie Lindsay MD at 06/18/18 1041 Author: Rosie Lindsay MD Service: Hospitalist Author Type: Physician Filed: 06/18/18 1354 Date of Service: 06/18/18 104 Status: Signed Waste Reclaimer: Rosie Lindsay MD (Physician) [facility] Service: Hospitalist Progress Note Hospital Day: LOS: 9 days SUBJECTIVE Patient Summary: 68-year-old [place] Citizen-speaking gentleman with a history of rectal canc [...] with patient's son and family with a industrial rehabilitation consultant all questi ons answered. Disposition: Inpatient Code Status: Full Code Rosie Lindsay MD 06/18/2018 10:41 AM This entry has been created using [employer] Speech Recognition software and [employer]. The entry has been reviewed and there may still exist sound alike word errors. ntonella Randle ra, MA, CCC-IMPLANT COORDINATOR - 06/17/2018 3:37 PM PDTFormatting of this note might be different from t he original. Therapy Progress Note by Lucía Randle MA CCC-IMPLANT COORDINATOR at 06/17/18 5696 Author: Lucía Randle MA CCC-IMPLANT COORDINATOR Service: (none) Author Type: Speech and Language Pathologist Filed: 06/17/18 8730 Date of Service: 06/17/181536 Status: Signed Waste Reclaimer: Lucía Randle MA CCC-IMPLANT COORDINATOR (Speech and Language Pathologist) BEDSIDE SWALLOW IMPLANT COORDINATOR Last Visit IMPLANT COORDINATOR Received On: 06/17/18 Requires IMPLANT COORDINATOR Follow Up: Yes Recommendations Liquids Consistency Recommendations: [...] Date of Service: 06/17/18 1002 Status: Addendum Waste Reclaimer: Rosie Lindsay MD (Physician) Related Notes: Original Note by Rosie Lindsay MD (Physician) filed at 06/17/18 1318 [facility] Service: Hospitalist Progress Note Hospital Day: LOS: 8 days SUBJECTIVE Patient Summary: 68-year-old [place] Citizen-speaking gentleman with a history of rectal canc [...] with patient's son and family with a industrial rehabilitation consultant all questi ons answered. Disposition: Inpatient Code Status: Full Code Rosie Lindsay MD 06/17/2018 10:31 AM This entry has been created using [employer] Speech Recognition software and [employer]. The entry has been reviewed and there may still exist sound alike word errors. aJazmyne jules MD - 06/17/2018 9:20 AM PDT Progress Notes by Jazmyne Hairston MD at 06/17/18919 Author: Jazmyne Hairston MD Service: Neurology Author Type: Physician Filed: 06/18/18 1107 Date of Service: 06/17/18919 Status: Addendum Waste Reclaimer: Jazmyne Hairston MD (Physician) Related Notes: Original [...] by Nasrin Foley RN at 06/16/181849 Author: Narsin Foley RN Service: (none) Author Type: Registered Nurse Filed: 06/16/181855 Date of Service: 06/16/181849 Status: Signed Waste Reclaimer: Nasrin Foley RN (Registered Nurse) Pt was [...] Date of Service: 06/16/18 1408 Status: Addendum Waste Reclaimer: Paula Lubin RN (Registered Nurse) Related Notes: Original Note by Paula Lubin RN (Registered Nurse) filed at 06/16/18 141 0 D/c plan: Please call ynes Sandoval [phone] or pt's brother, Gustabo, --PT to eval for recommendations, may need snf --sitter in place [place] onver alex Transaction, Provider Unknown - 06/16/2018 1:48 PM PDT Case Management by Paula Lubin RN at 06/16/18 6801 Author: Paula Lubin RN Service: (none) Author Type: Registered Nurse Filed: 06/16/18 8040 Date of Service: 06/16/18 3721 Status: Signed Waste Reclaimer: Paula Lubin RN (Registered Nurse) 06/16/18 1300 [...] confused. Met with pt's brother, Gustabo Eaton(speaks dominican only) re d/c planning. Gustabo states pt resides in [place] alone, but he has a son, Byron Eaton() who also resides in [place], pt's sposue and other children reside in [place]. Gustabo also lives in [place]. Per Gustabo, pt has been indep with all his ADL's, no use of dme, no anticoagulants, no HH services, no HD. Gustabo has been involved in pt's care after all hi s surgeries and thinks going to a snf would be the best. Per previous CM notes, back in 2014 , pt had been accepted to [facility], but ended up going to an LTAC instead. Tc to Byron, [facility] to call back re d/c planning. Patient's [...] 06/17/18904 Date of Service: 06/16/181223 Status: Addendum Waste Reclaimer: Jazmyne Hairston MD (Physician) Related Notes: Original [...] may benefit from AC more than ASA ([id number] VASC: 3 and CHADS2: 2). Isabella r, [...] Service: Hospitalist Author Type: Physician Filed: 06/16/18 1442 Date of Service: 06/16/18 1021 Status: Signed Waste Reclaimer: Rosie Lindsay MD (Physician) [facility] Service: Hospitalist Progress Note Hospital Day: LOS: 7 days SUBJECTIVE Patient Summary: 68-year-old [place] Citizen-speaking gentleman with a history of rectal canc er , hyperlipidemia, alcohol abuse admitted with seizure and possibly encephalitis. Neurolog y and ID consulted. Events Overnight: Patient is oriented to self. He complains of pain in his back and k nee pain. He denies any other complaints. Scheduled Medications acyclovir 10 mg/kg ([place]) Intravenous Q8H aspirin 81 mg Oral Daily [...] HSV/limbic encephalitis could be considered in the [facility] clinical setting although felt to be less [...] fibrillation. Patient is high risk for anticoagulation. Rihc score is 3. We will start patient [...] AM This entry has been created using [employer] Speech Recognition software and [employer]Rx. The entry has been reviewed and there may still exist sound alike word errors. onversion Trans action, Provider Unknown - 06/15/2018 8:08 PM PDT Nurse Progress Note by Miracle Montes RN at 06/15/182007 Author: Miracle Montes RN Service: (none) Author Type: Registered Nurse Filed: 06/15/182008 Date of Service: 06/15/182007 Status: Signed Waste Reclaimer: Miracle Montes RN (Registered Nurse) Pt vitals stable. No acute changes in neuro status. Pt demonstrates confusion and is A/O to self. Needs and concerns addressed with family members. End of shift audit complete. Miracle Montes RN alvor son, Bjorn Joiner MD - 06/15/2018 1:55 PM PDT Progress Notes by Bjorn Cardenas MD-R3 at 06/15/18 1352 Author: Bjorn Cardenas MD-R3 Service: [place] Author Type: Resident-Y3 Filed: 06/15/18 1352 Date of Service: 06/15/18 1359 Status: Attested Waste Reclaimer: Bjorn Cardenas MD-R3 (Resident-Y3) Cosigner: Edy La MD at 06/15 8782 Attestation signed by Edy La MD at [...] 35 min of high complexity care. . [facility] Service: [place] Progress Note Jose Eaton 68 y.o. Hospital Day: LOS: 6 days Post-Op Day: * No surgery found * Consulting Physicians Treatment Team: Consulting Physician: Jean-Pierre Du II, MD Consulting Physician: Kita Garzon MD Consulting Physician: Jazmyne Hairston MD Admitting Provider: Edy La MD SUBJECTIVE Patient Summary:From Dr. Arreaga's progress note: "68 y.o.dominican speaking M with PMHof rectalcancers/p LAR andileostomy [...] respiratory distress. SCHEDULED MEDICATIONS acyclovir 10 mg/kg ([place]) Intravenous Q8H enoxaparin 40 mg Subcutaneous Q24H [...] no facial asymmetry, follows commands given in dominican, waving to us while we are rounding [...] HSV/limbic encephalitis could be considered in the [facility] clinical setting although felt to be less [...] Date of Service: 06/15/18 1030 Status: Signed Waste Reclaimer: Edel Thornton RN (Registered Nurse) Patient report given to TIMOTEO Figueroa ([facility]). Pt was informed of the move via recreational vehicle resort manager. Chart, meds, and belongings with the patient to [facility] via wheelchair. Kita Posey MD - 06/15/2018 9:58 AM PDTFormatting of this note might be differen t from the original. Progress Notes by Kita Garzon MD at 06/15/18 0958 Author: Kita Garzon MD Service: Infectious Disease Author Type: Physici an Filed: 06/15/18 1001 Date of Service: 06/15/18 0958 Status: Signed Waste Reclaimer: Kita Garzon MD (Physician) [facility] Service: Infectious Diseases Progress Note Hospital Day: [...] turgor Neurologic: confused; thinks he is in "[place]" LABS: MICRO: CSF cultures NGTD; HSV PCR [...] Neg HIV and Hep C Dictation software, [employer] Mir, used which may contain error for similar [...] 06/14/181847 Date of Service: 06/14/181846 Status: Signed Waste Reclaimer: Carole Baker RN (Registered Nurse) End of shift chart audit complete. Carole Baker RN onver alex Transaction, Provider Unknown - 06/14/2018 4:29 PM PDT Progress Notes by Jesus Spaulding, TYSON at 06/14/181628 Author: Jesus Spaulding RRT Service: (none) Author Type: Registered Respiratory Therapis t Filed: 06/14/18 1634 Date of Service: 06/14/181628 Status: Signed Waste Reclaimer: Jesus Spaulding RRT (Registered Respiratory Therapist) Patient [...] at 06/14/18 0805 Author: JONATHON Rosado Service: [place] Author Type: Advanced Registered Nu rse Practitioner Filed: 06/14/1811 Date of Service: 06/14/18804 Status: Signed Waste Reclaimer: JONATHON Rosado (Advanced Registered Nurse Practitioner) [facility] Service: [place] Progress Note Jose Eaton 68 y.o. Hospital Day: LOS: 5 days Post-Op Day: * No surgery found * Consulting Physicians Treatment Team: Consulting Physician: Jean-Pierre Du II, MD Admitting Provider: Edy La MD SUBJECTIVE Patient Summary:From Dr. Arreaga's progress note: "68 y.o.dominican speaking M with PMHof rectalcancers/p LAR andileostomy [...] no facial asymmetry, follows commands given in dominican, wiggling toes HEENT:sclerae clear, nonicteric, oral mmm, [...] encephalitis could be considered in the [facility] clinical setting although felt to be less [...] Author: BRIA Sparks Service: (none) Author Type: Data Technician Filed: 06/13/18 8667 Date of Service: 06/13/18 122 Status: Signed Waste Reclaimer: BRIA Sparks (Data Technician) provided patient's son with the requested letter for his court involvement. BRIANNA Hughes onver alex Transaction, Provider Unknown - 06/13/2018 12:00 PM PDT Nurse Progress Note by Kalpana Burns RN at 06/13/18 1200 Author: Kalpana Burns RN Service: (none) Author Type: Registered Nurse Filed: 06/13/18 1735 Date of Service: 06/13/18 1200 Status: Signed Waste Reclaimer: Kalpana Burns RN (Registered Nurse) Discussed restraint [...] Date of Service: 06/13/18 1123 Status: Signed Waste Reclaimer: Mariely Cohen RD (Registered Dietitian) 06/13/18 1123 Subjective [facility] Follow up Pt c/o In to f/u with pt who was admitted for seizures, with hx of ETOH abuse, is intubated . Per Rn plan is to trial extubation this afternoon. Spoke with son, brother, and other fami ly at bedside. RD conducted visit in [place]. Reported by Family Diet Experience Self-selected diet(s) [...] 0804 Date of Service: 06/13/18740 Status: Signed Waste Reclaimer: Marisela Salcido RN (Registered Nurse) 24hr chart check/audit completed. MARISELA SALCIDO RN Amanda Junior MD - 06/13/2018 4:22 AM PDTFormatting of this note might be different from the origi nal. Progress Notes by Amanda Arreaga MD at 06/13/18421 Author: Amanda Arreaga MD Service: Monotyper Author Type: Physician Filed: 06/13/189 Date of Service: 06/13/18421 Status: Signed Waste Reclaimer: Amanda Arreaga MD (Physician) [facility] Service: Monotyper Progress Note Jose Eaton 68 y.o. Hospital Day: LOS: 4 days Post-Op Day: * No surgery found * Consulting Physicians Treatment Team: Consulting Physician: Jean-Pierre Du II, MD Admitting Provider: Edy La MD SUBJECTIVE SUBJECTIVE Patient Summary:68 y.o.dominican speaking M with PMHof rectalcancers/p LAR andileostomy reversal in 2016, hyperlipidemia, ETOH abuse (2 pints of whiskey daily), atrial fib, and pancreatitis,whopresents in transfer from [facility] with seizures an d found to have [...] HSV/limbic encephalitis could be considered in the [facility] clinical setting although felt to be less [...] 06/12/181513 Date of Service: 06/12/181513 Status: Signed Waste Reclaimer: Khurram Palmer RRT (Registered Respiratory Therapist) 06/12/18 1511 ETT 8 mm Placement Date/Time: 06/11/18 1415 Size : 8 mm Cuffed: Cuffed Insertion attempts: 1 Pl aced By: FIBER DESIGNER Secured at (cm): 25 cm Measured From: Gums Secured by: Commercial tube hold er Confirmation: EtCO2 Technique: [place] Scope Secured at (cm) 25 cm Measured [...] 0.9 Sec(s) Insp Rise Time (sec) / Grayson 0.2 sec Tube Compensation/ATC 100 % Auto [...] 06/12/181043 Date of Service: 06/12/181043 Status: Signed Waste Reclaimer: Khurram Palmer RRT (Registered Respiratory Therapist) 06/12/18 1040 Vent Type/Mode Vent Type Drager Vent Mode Drager VC-AC RT Settings Set Rate 16 bmp Resp Rate Total 16 br/min Vt Set 360 mL PEEP 8.1 cmH20 FiO2 21 % Trigger flow (L/min) 2 L/m Insp Time 0.9 Sec(s) Insp Rise Time (sec) / Grayson 0.2 sec Tube Compensation/ATC 100 % Auto [...] 06/12/18753 Date of Service: 06/12/18753 Status: Signed Waste Reclaimer: Khurram Palmer RRT (Registered Respiratory Therapist) This [...] device data Insp Rise Time (sec) / Grayson - Cannot attach notes to unvalidated device [...] Cuffed Insertion attempts: 1 Pl aced By: FIBER DESIGNER Secured at (cm): 25 cm Measured From: Gums Secured by: Commercial tube hold er Confirmation: EtCO2 Technique: [place] Scope Secured at (cm) 25 cm Measured [...] at 06/12/18322 Author: Amanda Arreaga MD Service: Monotyper Author Type: Physician Filed: 06/12/18330 Date of Service: 06/12/18322 Status: Signed Waste Reclaimer: Amanda Arreaga MD (Physician) [facility] Service: Monotyper Progress Note Jose Eaton 68 y.o. Hospital Day: LOS: 3 days Post-Op Day: * No surgery found * Consulting Physicians Treatment Team: Consulting Physician: Jean-Pierre Du II, MD Admitting Provider: Edy La MD SUBJECTIVE Patient Summary: 68 y.o.dominican speaking M with PMH of rectal cancers/p LAR and i leostomy reversal in 2016, hyperlipidemia, ETOH abuse (2 pints of whiskey daily), atrial fib , and pancreatitis,whopresents in transfer from [facility] with seizures and found to have a [...] Note by Mirtha Espinoza RN at 06/11/18 1248 Author: Mirtha Espinoza RN Service: (none) Author Type: Registered Nurse Filed: 06/11/18 8010 Date of Service: 06/11/181546 Status: Signed Waste Reclaimer: Mirtha Espinoza RN (Registered Nurse) Pt extubated [...] Date of Service: 06/11/18 1528 Status: Signed Waste Reclaimer: Tracie Savage CRT (Certified Respiratory Therapist) Pt placed on spontaneous mode at 1054 and passed SBT, no periods of apnea, normal RR, spO2 100%. Received confirmation from [facility] that pt was following commands and able to be extubate d. Had recreational vehicle resort manager explain to pt process of extubation, dropped cuff heard a leak, and pulle d tube. After extubated pt was unable to cough, sounded very coarse. Attempted NT suction wa s not able to get much secretions. Doctors notified and decision was made to re intubate. onver alex Transaction, Provider Unknown - 06/11/2018 9:57 AM PDT Case Management by Jordan Lugo RN at 06/11/18 0954 Author: Jordan Lugo RN Service: (none) Author Type: Registered Nurse Filed: 06/11/18 1349 Date of Service: 06/11/18956 Status: Addendum Waste Reclaimer: Jordan Lugo RN (Registered Nurse) Related Notes: Original Note by Jordan Lugo RN (Registered Nurse) filed at 06/11/18 12 8:33 AM Jose is still intubated. No family in the room. Left another message for Byron [phone]. 11:50 AM Checked on Jose. Lots of family just arrived. I will let them get settled and revisit w ith a gas jockey. 1:48 PM Went to see Jose's family. They are no longer here. Message left for Byron. Amanda Junior MD - 06/11/2018 5:40 AM PDTFormatting of this note might be different from the origi nal. Progress Notes by Amanda Arreaga MD at 06/11/18 7856 Author: Amanda Arreaga MD Service: Monotyper Author Type: Physician Filed: 06/11/1858 Date of Service: 06/11/18539 Status: Signed Waste Reclaimer: Amanda Arreaga MD (Physician) [facility] Service: Monotyper Progress Note Jose Eaton 68 y.o. Hospital Day: LOS: 2 days Post-Op Day: * No surgery found * Consulting Physicians Treatment Team: Consulting Physician: Jean-Pierre Du II, MD Admitting Provider: Edy La MD SUBJECTIVE Patient Summary: 68 y.o.dominican speaking M with PMH of rectal cancers/p LAR and i leostomy reversal in 2016, hyperlipidemia, ETOH abuse (2 pints of whiskey daily), atrial fib , and pancreatitis,whopresents in transfer from [facility] with seizures and found to have a [...] Intake/Output Summary (Last 24 hours) at 06/11/18 0504 Last data filed at 06/11/18 0419 Gross [...] HSV/limbic encephalitis could be considered in the [facility] clinical setting although felt to be less [...] at 06/10/182139 Author: Rachel Stephens RN Service: Monotyper Author Type: Registered Nurse Filed: 06/11/18 010 Date of Service: 06/10/182139 Status: Signed Waste Reclaimer: Rachel Stephens RN (Registered Nurse) Propofol turned [...] Notes by Belén Greenwood RN at 06/10/18 3333 Author: Belén Greenwood RN Service: (none) Author Type: Registered Nurse Filed: 06/10/181842 Date of Service: 06/10/181842 Status: Signed Waste Reclaimer: Belén Greenwood RN (Registered Nurse) End of shift chart audit complete onver alex Transaction, Provider Unknown - 06/10/2018 2:22 PM PDT Progress Notes by Shakira Geiger RD at 06/10/18 142 Author: Shakira Geiger RD Service: (none) Author Type: Registered Dietitian Filed: 06/10/18 1424 Date of Service: 06/10/181421 Status: Signed Waste Reclaimer: Shakira Geiger RD (Registered Dietitian) 06/10/18 1400 Subjective Timepoint Admit Pt c/o Consult received for TF. Pt admitted for seizures. Pt intubated and sedated. Per haile rting pt transferred from [facility] (was admitted there on 06/07). No family present at t samy of visit. 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 [facility] [address], was not eating food and only [...] Estimated Energy Needs Total Energy Estimated Needs 3618-9604 kcal/day Method for Estimating Needs 25-30 kcal/kg [...] 06/10/2018 9:23 AM PDT Case Management by Jordan Lugo RN at 06/10/18922 Author: Jordan Lugo RN Service: (none) Author Type: Registered Nurse Filed: 06/11/18732 Date of Service: 06/10/18922 Status: Addendum Waste Reclaimer: Jordan Lugo RN (Registered Nurse) Related Notes: Original Note by Jordan Lugo RN (Registered Nurse) filed at 06/10/1809 06 9:23 AM Attempted to do assessment, patient intubated, and no family in room. Message left for [facility] [phone]. Will re-visit later. 12:06 PM Still no family in room. Called and left message with Jose Matthews's son, number was on ite board. [phone] 3:03 PM Checked in on Jose. Still no family or return call from friend or sons. onver alex Transaction, Provider Unknown - 06/10/2018 7:31 AM PDT Nurse Progress Note by iMrela Damon RN at 06/10/18730 Author: Mirela Damon RN Service: (none) Author Type: Registered Nurse Filed: 06/10/18 0737 Date of Service: 06/10/18730 Status: Signed Waste Reclaimer: Mirela Damon RN (Registered Nurse) End of [...] Jones at 06/10/18429 Author: JONATHON Jones Service: Monotyper Author Type: Advanced Registered Nurse Practitioner Filed: 06/10/18 0653 Date of Service: 06/10/18429 Status: Signed Waste Reclaimer: JONATHON Jones (Advanced Registered Nurse Practitioner) [facility] Monotyper Service Progress Note Jose Eaton 68 y.o. Hospital Day: LOS: 1 day Consulting Physicians Treatment Team: Admitting Provider: Edy La MD SUBJECTIVE Patient Summary: [facility] on 06/[facility]/18: The patient is a 68 y.o. male, [place] Citizen-speaking only, with significant past medical history of colon cancer (s/p bowel resection and ileostomy reversal in 2015), hyperlipidemia, ETOH abuse, atrial fib, and pancreatitis, who presents in transfer from [facility] in [facility], [place]. He originally presented to via EMS on [...] ED documentation). ICU Timeline: 06/09: transferred from [facility] to [facility] ICU; EEG done, intubated for airway prote [...] Brain masses. MRI without contrast done at [facility] showing small mass in the left high [...] 110 ml/hr. Severe protein-calorie malnutrition. Consult to blower insulator. RENAL/LYTES: Renal function appears normal. Renally dose [...] 06/10/1841 Date of Service: 06/10/1841 Status: Signed Waste Reclaimer: Suad Alvarez RPH (Pharmacist) Clinical Pharmacy Note: [...] 06/09/182246 Date of Service: 06/09/182236 Status: Addendum Waste Reclaimer: Toribio Lopez MD (Physician) Related Notes: Original Note by Toribio Lopez MD (Physician) filed at 06/09/18 224 5 [facility] Service: Continuous EEG Monitoring Progress Note Reason [...] any questions or concerns. Toribio Lopez MD [facility] Clinical Neurophysiologist documented in t his encounter [...] [address] | | | | | | [place] [address] | | | | | | [phone] | | | | | | | | +--------+ + + + + | 02/21/ | Surgery | | Saleem Shore, | COLONOSCOPY | | 2019 | | | MD [address] | | | | | | [address] | | | | | | [place] [address] | | | | | | [phone] | | | | | | | [...] | | | Basophils | performed at [facility], [address] | K/uL | LAB | | | | [address], | | | | | | [place] [address] | | | | + + + [...] | | | | | performed at [facility], [address] | | | | | | [facility], | | | | | | [place] [address] | | | | + + + [...] | | | | | [place] | | | | | | [address] | | | | + + + [...] | | | Basophils | performed at [facility], [address] | K/uL | LAB | | | | [address], | | | | | | [place] [address] | | | | + + + [...] | | | | | performed at [facility], [address] | | | | | | [facility] [address], | | | | | | [place] [address] | | | | + + + [...] | | | Basophils | performed at [facility], [address] | K/uL | LAB | | | | [place], | | | | | | [place] [address] | | | | + + + [...] | | | | | performed at [facility], [address] | | | | | | [facility], | | | | | | [place] [address] | | | | + + + [...] | | | Basophils | performed at [facility];[address] | [address] | LAB | | | | [address];[place], [place] | | | | | | [address] | | | | + + + [...] | | | | | performed at [facility], [address] | | | | | | [facility], | | | | | | [place] [address] | | | | + + + [...] | | | Basophils | performed at [facility];[address] | K/u[address] | LAB | | | | [address];[place], [place] | | | | | | [address] | | | | + + + [...] | | | | | performed at [facility], [address] | | | | | | [address], | | | | | | [place] [address] | | | | + + + [...] | | | Fingerstick | performed at [facility];[address] | | LAB | | | | [address];[place], [place] | | | | | | [address] | | | | + + + [...] | | | Fingerstick | performed at [facility];[address] | | LAB | | | | [address];[place] | | | | | | [address] | | | | + + + [...] C.difficile. | | | Testing performed at [facility];[address] [place] [address];[place] [address] | | + + + + +---------+ [...] | | | Fingerstick | performed at [facility];[address] | | LAB | | | | [...] | | | Fingerstick | performed at [facility];[address] | | LAB | | | | [address];[place], [place] | | | | | | [address] | | | | + + + [...] | | | Basophils | performed at [facility], [address] | K/uL | LAB | | | | [address], | | | | | | [place] [address] | | | | + + + [...] EXTERNAL | | | | performed at [facility], [address] | uIU/mL | LAB | | | | [place], | | | | | | [place] [address] | | | | + + + [...] | | | | | performed at [facility], [address] | | | | | | [facility], | | | | | | [place] [address] | | | | + + + [...] | | | Cholesterol | performed at [facility], [address] | | LAB | | | , | [address] [place], | | | | | Calculated, | [place] [address] | | | | | External | [...] | | | | | performed at [facility], [address] | | | | | | [address], | | | | | | [place] [address] | | | | + + + [...] | | | Fingerstick | performed at [facility];[address] | | LAB | | | | [address];[place], [place] | | | | | | [address] | | | | + + + [...] | | | Fingerstick | performed at [facility];[address] | | LAB | | | | [address];[place] | | | | | | [address] | | | | + + + [...] | cm D-E Excursion: 1.43 cm E-F Grayson: 0.07 m/s Ao Diam: | | | 3.45 cm Ao/LA: 0.75 AV Cusp: 1.40 cm LA Diam: 4.58 cm | | | LA/Ao: 1.32 TAPSE: 1.36 cm AR Dec Grayson: 2.46 m/s2 AR Dec | | | [...] | | | RV S': 0.14 m/s Surveillance Inspector: KASEY Authenticated by: Torsten Hays | | [...] | aortic arch are normal.24. No mass [id number]. No ASD observed.26. No VSD observed. | [...] mlLAESV Index (A-L): 42.86 ml/m2LAAs A2C: 22.17 an5VGSCO A-L A2C: 70.09 mlLALs | | A2C: 5.95 cmLAAs A4C: 23.86 mw4ROBSS A-L A4C: 80.98 mlLALs A4C: 5.97 cmD-E | | Excursion: 1.43 cmE-F Grayson: 0.07 m/Dafne Diam: 3.45 cmAo/LA: 0.75AV Cusp: 1.40 | | cmLA Diam: 4.58 cmLA/Ao: 1.32TAPSE: 1.36 cmAR Dec Grayson: 2.46 m/s2AR Dec Time: | | 1407.26 [...] 0.04 m/sRV S': 0.14 m/s | | Surveillance Inspector: Brittanyticated by: Torsten Mckeon [facility] Date/Time: 06-16-2018 | | 16:45:49 IMPRESSION: 1. [...] arch are normal.24. No | | mass [id number]. No ASD observed.26. No VSD observed. | [...] | |D-E Excursion: 1.43 cm | |E-F Grayson: 0.07 m/s | |Ao Diam: 3.45 cm | |Ao/LA: 0.75 | |AV Cusp: 1.40 cm | |LA Diam: 4.58 cm | |LA/Ao: 1.32 | |TAPSE: 1.36 cm | |AR Dec Grayson: 2.46 m/s2 | |AR Dec Time: 1407.26 [...] |RV S': 0.14 m/s | | | |Surveillance Inspector: KASEY | |Authenticated by: Torsten Mckeon MD [...] | | | Fingerstick | performed at [facility];[address] | | LAB | | | | [address];[place] | | | | | | [address] | | | | + + + [...] EXTERNAL | | | | performed at [facility] | | LAB | | | | [address];[place], [place] | | | | | | [address] | | | | + + + [...] | | | Fingerstick | performed at [facility];[address] | | LAB | | | | [address];[place], [place] | | | | | | [address] | | | | + + + [...] | | | Basophils | performed at [facility], [address] | K/uL | LAB | | | | [address] [place], | | | | | | [place] [address] | | | | + + + [...] EXTERNAL | | | | performed at [facility];[address] | | LAB | | | | [address];[place] | | | | | | [address] | | | | + + + [...] EXTERNAL | | | | performed at [facility];[address] | | LAB | | | | [address];[place] | | | | | | [address] | | | | + + + [...] | | | | | performed at [facility], [address] | | | | | | [address] [place], | | | | | | [place] [address] | | | | + + + [...] | | | Fingerstick | performed at [facility] | | LAB | | | | [address];[place] | | | | | | [address] | | | | + + + [...] | | | Fingerstick | performed at [facility];[address] | | LAB | | | | [address];[place] | | | | | | [address] | | | | + + + [...] | | | Fingerstick | performed at [facility];[address] | | LAB | | | | [address];[place] | | | | | | [address] | | | | + + + [...] EXTERNAL | | | | performed at [facility];[address] | | LAB | | | | [address];[place] | | | | | | [address] | | | | + + + [...] | | | Fingerstick | performed at [facility];[address] | | LAB | | | | [address];[place] | | | | | | [address] | | | | + + + [...] at | | | | | | [facility], [address] [place] [address] | | | | | | [place], [place] | | | | | | [address] | | | | + + + [...] EXTERNAL | | | | performed at [facility];[address] | | LAB | | | | [address];[place], [place] | | | | | | [address] | | | | + + + [...] EXTERNAL | | | | performed at [facility];[address] | | LAB | | | | [address] [place] | | | | | | [address] | | | | + + + [...] | | | | | performed at [facility], [address] | | | | | | [facility], | | | | | | [place] [address] | | | | + + + [...] | | | Fingerstick | performed at [facility];[address] | | LAB | | | | [address];[place] | | | | | | [address] | | | | + + + [...] | | | Fingerstick | performed at [facility];[address] | | LAB | | | [address];[place], [place] | | | | | | [address] | | | | + + + [...] EXTERNAL | | | | performed at [facility];[address] | mmol/L | LAB | | | | [address];[place], [place] | | | | | | [address] | | | | + + + [...] EXTERNAL | | | | performed at [facility] | | LAB | | | | [facility];[place] | | | | | | [address] | | | | + + + [...] | | | Fingerstick | performed at [facility];[address] | | LAB | | | | [address];[place] | | | | | | [address] | | | | + + + [...] at | | | | | | [facility], [address] | | | | | | [place] | | | | | | [address] | | | | + + + [...] | | | | | performed at [facility], [address] | | | | | | [facility], | | | | | | [place] [address] | | | | + + + [...] | | | Fingerstick | performed at [facility];[address] | | LAB | | | | [address] [place] | | | | | | [address] | | | | + + + [...] | | | Basophils | performed at [facility], [address] | K/uL | LAB | | | | [place], | | | | | | [place] [address] | | | | + + + [...] EXTERNAL | | | | performed at [facility] | | LAB | | | | [address];[place] | | | | | | [address] | | | | + + + [...] EXTERNAL | | | | performed at [facility];[address] | | LAB | | | | [address];[place], [place] | | | | | | [address] | | | | + + + [...] | | | | | performed at [facility], [address] | | | | | | [place], | | | | | | [place] [address] | | | | + + + [...] | | | Fingerstick | performed at [facility];[address] | | LAB | | | | [address];[place] | | | | | | [address] | | | | + + + [...] | | | Fingerstick | performed at [facility];[address] | | LAB | | | | [address];[place] | | | | | | [address] | | | | + + + [...] | | | Fingerstick | performed at [facility];[address] | | LAB | | | | [address];[place] | | | | | | [address] | | | | + + + [...] | | | Fingerstick | performed at [facility];[address] | | LAB | | | | [address];[place], [place] | | | | | | [address] | | | | + + + [...] at | | | | | | [facility], [address] | | | | | | [place] | | | | | | [address] | | | | + + + [...] EXTERNAL | | | | performed at [facility] | | LAB | | | | [address] [facility];[place], [place] | | | | | | [address] | | | | + + + [...] EXTERNAL | | | | performed at [facility];[address] | | LAB | | | | [address];[place], [place] | | | | | | [address] | | | | + + + [...] | | | | | | MDRD IDOR traceable | | | | | | equation.Testing | | | | | | performed at [facility], [address] | | | | | | [facility], | | | | | | [place] [address] | | | | + + + [...] | | | Fingerstick | performed at [facility];[address] | | LAB | | | | [address];[place] | | | | | | [address] | | | | + + + [...] and | | | characteristics determined by [facility]. See Compliance | | | Statement B: [employer] Testing performed at [facility], | | | [address] [facility] [place] [address] | | + + + + +---------+ [...] EXTERNAL LAB | | Testing performed at [facility];[address] [place] [address];[place] [address] HSV DNA | | | Type 1 Negative Reference range: | | | Negative HSV DNA Type 2 Negative | | | Reference range: Negative This test was developed and its performance | | | characteristics determined by [facility]. It has not been | | | cleared or approved by the U.S. Food and Drug Administration. The FDA | | | has determined that such clearance or approval is not necessary. | | | This test is used for clinical purposes. It should not be regarded as | | | investigational or research. Testing performed by [facility], [address] | | | [place] [address] | | + + + + +---------+ [...] 1 Testing performed at | | | [facility];[address] [facility];[place] [address] | | + + + + +---------+ [...] | range: Non Genia:<1:1 Testing performed by [facility], [address] [facility], | | | [place] [address] | | + + + + +---------+ [...] | EXTERNAL LAB | | performed at [facility];[address] [place] [address];[place] [address] | | + + + + +---------+ [...] EXTERNAL LAB | | Testing performed at [facility];[address] [place] [address];[place] [address] | | + + + + +---------+ [...] | | | | | performed by [facility], | | | | | | [address], | | | | | | [facility] [address] | | | | + + + [...] | | | Fingerstick | performed at [facility];[address] | | LAB | | | | [address];[place] | | | | | | [address] | | | | + + + [...] | | | | | performed at [facility];[address] | | | | | | [address];[place], [place] | | | | | | [address] | | | | + + + [...] | | | Fingerstick | performed at [facility];[address] | | LAB | | | | [address];[place] | | | | | | [address] | | | | + + + [...] at | | | | | | [facility], [address] [facility] | | | | | | [place] | | | | | | [address] | | | | + + + [...] EXTERNAL | | | | performed at [facility];[address] | | LAB | | | | [address] [place] | | | | | | [address] | | | | + + + [...] EXTERNAL | | | | performed at [facility];[address] | | LAB | | | | [address];[place], [place] | | | | | | [address] | | | | + + + [...] | | | | | performed at [facility], [address] | | | | | | [facility] [facility], | | | | | | [place] [address] | | | | + + + [...] EXTERNAL | | | | performed at [facility];888 | mmol/L | LAB | | | | [address];[place], [place] | | | | | | [address] | | | | + + + [...] EXTERNAL | | | | performed at [facility];888 | | LAB | | | | [address];[place] | | | | | | [address] | | | | + + + [...] EXTERNAL | | | | performed at [facility];88 | | LAB | | | | [address];[place], [place] | | | | | | [address] | | | | + + + [...] - 1.030 | EXTERNAL | | | [place] | | | LAB | | + [...] EXTERNAL | | | | performed at [facility];888 | | LAB | | | | [address];[place] | | | | | | [address] | | | | + + + [...] | | | Basophils | performed at [facility], [address] | K/uL | LAB | | | | [address], | | | | | | [place] [address] | | | | + + + [...] EXTERNAL | | | | performed at [facility];[address] | | LAB | | | | [address];[place], [place] | | | | | | [address] | | | | + + + [...] EXTERNAL | | | | performed at [facility];888 | | LAB | | | | [address];[place] | | | | | | [address] | | | | + + + [...] | | | | | performed at [facility], [address] | | | | | | [facility], | | | | | | [place] [address] | | | | + + + [...] EXTERNAL | | | | performed at [facility];888 | | LAB | | | | [address];[place] | | | | | | [address] | | | | + + + [...] EXTERNAL | | | | performed at [facility];888 | mmol/L | LAB | | | | [address];[place], [place] | | | | | | [address] | | | | + + + [...] INFORMATION: | | | Cancer/Mets, seizure. COMPARISON: [facility] (06/09/2018); PROCEDURE: | | | [...] EXTERNAL | | | | performed at [facility];888 | mmol/L | LAB | | | | [address];[place] | | | | | | [address] | | | | + + + [...] EXTERNAL | | | | performed at [facility];8 | | LAB | | | | [address] [facility];[place], [place] | | | | | | [address] | | | | + + + [...] | | | Basophils | performed at [facility], [address] | K/uL | LAB | | | | [address], | | | | | | [place] [address] | | | | + + + [...] EXTERNAL | | | | performed at [facility], [address] | | LAB | | | | [address], | | | | | | [place] [address] | | | | + + + [...] EXTERNAL | | | | performed at [facility], [address] | | LAB | | | | [address], | | | | | | [place] [address] | | | | + + + [...] | | | | | performed at [facility], [address] | | | | | | [facility], | | | | | | [place] [address] | | | | + + + [...] NEGATIVE Testing | | | performed at [facility];[address];[place] [address] | | + + + + +---------+ [...] EXTERNAL | | | | performed at [facility];[address] | | LAB | | | | [address];[place], [place] | | | | | | [address] | | | | + + + [...] EXTERNAL | | | | performed at [facility] | | LAB | | | | [address];[place], [place] | | | | | | [address] | | | | + + + [...] | | | | | performed at [facility] | | | | | | [facility];[place], [place] | | | | | | [address] | | | | + + + [...] | | | Fingerstick | performed at [facility];[address] | | LAB | | | | [address];[place], [place] | | | | | | [address] | | | | + + + [...]
--- OUTSIDE RECORDS SUMMARY | ~2019-02-11 | XMS | Encounter Summary ---
Demographics + + + | Address | [address] | | | [place] [address] | + + + | Home Phone | | + + + | Preferred Language | Unknown | + + + | Marital Status | Single | + + + | Jainism Affiliation | Unknown | + + + | Race | Unknown | + + + | Ethnic Group | Unknown | + + + Author + + + | Author | [facility] | | | and [place] | + + + | Organization | [facility] | | [...] Team Providers + +------+ + | Care Snow Fence Erector Name | Role | Phone | + +------+ + PCP | Unavailable | + +------+ + Encounter Details +--------+ + + + + | Date | Type | Department | Care Team | Description | +--------+ + + + + | 04/23/ | Hospital | [facility] | Conversion | Rectal cancer (HCC) | | 2016 | Encounter | [facility] XRAY | Transaction, | | | | | [address] | Provider Unknown | | | | | [place], [place] | | | | | | [address] | (Fax) | | | | | [phone] | | | +--------+ + + + [...] [address] | | | | | | [place] [address] | | | | | | [phone] | | | | | | | | +--------+ + + + + | 02/21/ | Surgery | | Saleem Shore, | COLONOSCOPY | | 2019 | | | MD [address] | | | | | | [address] | | | | | | [place] [address] | | | | | | [phone] | | | | | | | [...]
--- OUTSIDE RECORDS SUMMARY | ~2019-02-11 | XMS | Encounter Summary ---
Demographics + + + | Address | [address] | | | [place] [address] | + + + | Home Phone | | + + + | Preferred Language | Unknown | + + + | Marital Status | Single | + + + | Protestant Affiliation | Unknown | + + + | Race | Unknown | + + + | Ethnic Group | Unknown | + + + Author + + + | Author | [facility] | | | and [place] | + + + | Organization | [facility] | | | [...] Team Providers + +------+ + | Care Wash Box Operator Name | Role | Phone | + +------+ + PCP | Unavailable | + +------+ + Encounter Details +--------+ + + + + | Date | Type | Department | Care Team | Description | +--------+ + + + + | 12/19/ | Hospital | [facility] | Conversion | | | 2015 | Encounter | [facility] | Transaction, | | | | | CLINIC [address] | Provider Unknown | | | | | [place] | [phone] | | | | | [address] | | | | | | [phone] | | | +--------+ + + + [...] | | | | [place] [address] | | | | | | [phone] | | | | | | | | +--------+ + + + + | 02/21/ | Surgery | | Saleem Shore, | COLONOSCOPY | | 2019 | | | MD [address] | | | | | | [address] | | | | | | [place] [address] | | | | | | [phone] | | | | | | | | +--------+ + + + + documented as of this encounter Visit Diagnoses Not on filedocumented in this encounter"
--- OUTSIDE RECORDS SUMMARY | ~2019-02-11 | XMS | Clinical Summary ---
Demographics + + + | Address | [address] | | | [place] [address] | + + + | Home Phone | | + + + | Preferred Language | Unknown | + + + | Marital Status | Single | + + + | Restoration Affiliation | Unknown | + + + | Race | Unknown | + + + | Ethnic Group | Unknown | + + + Author + + + | Author | [facility] | | | and [place] | + + + | Organization | [facility] | | | [...] Team Providers + +------+ + | Care Subject Scientific Research Name | Role | Phone | + +------+ + | Kris Hernandez | PCP | | + +------+ + Allergies Not on File Medications + + + +---------+------+------+-------+ | Medication | Sig | Dispensed | Refills | Star | End | Statu | | | | | | t | Date | s | | | | | | Date | | | + + + +---------+------+------+-------+ | loperamide | Take 2 mg by mouth 4 | | 0 | 05/3 | | Activ | | (IMODIUM A-D) 2 MG | (four) times daily | | | 20 | | e | | tablet | as needed for | | | 16 | | | | | Diarrhea. | | | | | | + + + +---------+------+------+-------+ | pravastatin | Take 1 tablet by | 30 | 1 | 03/2 | | Activ | | (PRAVACHOL) 40 MG | mouth nightly. | tablet | | 820 | | e | | tablet | | | | 19 | | | + + + +---------+------+------+-------+ | thiamine (VITAMIN | Take 1 tablet by | 30 | 1 | 03/2 | 03/2 | Activ | | B-1) 100 mg tablet | mouth daily. | tablet | | 8/20 | 7/20 | e | | | | | | 19 | 20 | | + + + +---------+------+------+-------+ | calcium | Take 1 tablet by | 60 | 1 | 03/2 | 03/2 | Activ | | polycarbophil | mouth 2 (two) times | tablet | | 8/20 | 7/20 | e | | (FIBERCON) 625 mg | daily as needed | | | 19 | 20 | | | tablet | (Constipation no | | | | | | | | stools for 2 days). | | | | | | + + + +---------+------+------+-------+ | levETIRAcetam | Take 500 mg by mouth | | 0 | 03/1 | | Activ | | (KEPPRA) 250 MG | 2 times daily. | | | 5/20 | | e | | tablet | | | | 19 | | | + + + +---------+------+------+-------+ | LORazepam (ATIVAN) | Inject 1 mg into the | | 0 | 03/1 | | Activ | | 2 mg/mL injection | vein. | | | 5/20 | | e | | | | | | 19 | | | + + + +---------+------+------+-------+ | meloxicam (MOBIC) | Take 7.5 mg by | | 0 | | | Activ | | 7.5 mg tablet | mouth. | | | | | e | + + + +---------+------+------+-------+ | sodium | Take 177 mLs by | 1 kit | 0 | 10/ | | Activ | | sulfate-potassium | mouth every 12 | | | 12/15 | | e | | sulfate-magnesium | hours. | | | 19 | | | | sulfate (SUPREP | | | | | | | | BOWEL PREP KIT) oral | | | | | | | | solution | | | | | | | + + + +---------+------+------+-------+ Active Problems + + + | Problem | Noted Date | + + + | Rectal prolapse | 01/18/2019 | + + + + + | Overview: Added automatically from request for surgery | | [id number] | + + + + + | Chronic systolic congestive heart failure | 06/17/2018 | + + + | Malignant neoplasm of colon | 06/10/2018 | + + + + + | Overview: S/p surgical resection and ileostomy followed by | | ileostomy reversal Overview: lower rectal area per report, | | needs additional imaging being followed by general surgeon at | | this time 07/2014 Dx name changed by system update 12/17/2016 | |general surgeon at this time 07/2014 | | | |Dx name changed by system update 12/17/2016 | + + + + + | Seizures | 06/10/2018 | + + + | ETOH abuse | 06/10/2018 | + + + | Chronic diarrhea | 06/09/2018 | + + + | Altered mental status | 06/08/2018 | + + + | Seizure due to alcohol withdrawal | 06/08/2018 | + + + | Ileostomy in place | 01/25/2015 | + + + | E coli bacteremia | 01/25/2015 | + + + | Protein-calorie malnutrition, severe | 01/24/2015 | + + + | Physical deconditioning | 01/24/2015 | + + + | Chronic atrial fibrillation | 01/24/2015 | + + + | Acute pancreatitis | 01/16/2015 | + + + | Lactic acidosis | 01/12/2015 | + + + | Acute respiratory failure with hypoxia | 01/12/2015 | + + + | Aspiration pneumonia | 01/12/2015 | + + + | Acute kidney injury | 01/12/2015 | + + + | Severe sepsis | 01/11/2015 | + + + | Paroxysmal atrial fibrillation | 01/06/2015 | + + + | Persistent atrial fibrillation | 01/05/2015 | + + + | Hyperlipidemia | 01/05/2015 | + + + | Abdominal pain | 01/05/2015 | + + + | Anemia | 01/05/2015 | + + + | Hyposmolality and/or hyponatremia | 01/05/2015 | + + + | Rectal cancer | 08/16/2014 | + + + + + | Cancer Staging: Pathologic stage from 09/04/2014: Stage IIIB | | (T3, N1, cM0) - Unsigned | + + + + + | Encounter for antineoplastic chemotherapy | 08/16/2014 | + + + | 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 Xrays 01/01 in [place]. L knee Kenalog | | injection 08/29/08 not helpful. L knee x[facility] ([facility]) - | | chondrocalcinosis. Percocet seems to help best. s/p L total hip | | 05/07.IMO Problem List Replacement - 2016_Regulatory_1 | |IMO Problem List Replacement - 2017_Regulatory_1 | + + + + + | Rheumatoid arthritis | 07/05/2008 | + + + + + | Overview: Hand Xrays 01/01 | | | | IMO Problem List Replacement - 2016_Regulatory_1 | + + Encounters +--------+ + + + + | Date | Type | Specialty | Care Team | Description | +--------+ + + + + | 02/08/ | Telephone | General Surgery | Saleem Shore, | Other (schedule | | 2018 | | | MD | surgery) | +--------+ + + + + | 01/19/ | Orders Only | General Surgery | Collin Grimm | | | 2018 | | | [place] | | +--------+ + + + + | 01/18/ | Office | General Surgery | Saleem Shore, | Rectal prolapse | | 2018 | Visit | | MD | (Primary Dx) | +--------+ + + + + | 12/14/ | Telephone | General Surgery | Saleem Shore, | Referral | | 2018 | | | MD | | +--------+ + + + + from Last 3 Months Immunizations + + + + | Name | Administration Dates | Next Due | + + + + | INFLUENZA PF | 06/11/2018 | | | QUAD(PED/ADOL/ADULT) | | | | ,PSKT or VIAL | | | + + + + | PNEUMOCOCCAL | 06/11/2018 | | | POLYSACCHARIDE | | | | 23-VALENT (PPSV23) | | | + + + + [...] | + +------+--------+ + Social History + +-------+ +--------+------+ | [...] recent travel history available. | + + Last Filed Vital Signs + + + + + | Vital Sign | Reading | Time Taken | Comments | + + + + + | Blood Pressure | 126/64 | 01/18/2019 2:59 PM | | | | | PDT | | + + + + + | Pulse | 88 | 01/18/2019 2:59 PM | | | | | PDT | | + + + + + | Temperature | 36.7 C (98 F) | 06/22/2018 10:06 AM | | | | | PDT | | + + + + + | Respiratory Rate | 20 [...] | | + + + + + Plan of Treatment +--------+ + + + + | Date | Type | Specialty | Care Team | Description | +--------+ + + + + | 11/27/ | Hospital | | Saleem Shore, | Rectal prolapse | | 2019 | Encounter | | MD [address] | | | | | | [address] | | | | | | [place] [address] | | | | | | [phone] | | | | | | | | +--------+ + + + + | 02/21/ | Surgery | | Saleem Shore, | COLONOSCOPY | | 2019 | | | MD [address] | | | | | | [address] | | | | | | [place] [address] | | | | | | [phone] | | | | | | | | +--------+ + + + + + + + + + | Health Maintenance | Due Date | Last Done | Comments | + + + + + | Vaccine: | | | | | Dtap/Tdap/Td (1 - | 8 | | | | Tdap) | | | | + + + + + | Colorectal Cancer | | | | | Screening [...] | + + + + + | Adult Annual | | | | | Wellness Visit | 9 | | | + + + + + | Vaccine: | | 06/11/2018 | | | Pneumococcal 65+ (2 | 0 | | | | of 2 - PCV13) | | | | + + + + + | AAA Screening | Completed | 08/02/2014 | | + + + + + | Hepatitis C | Completed | 06/14/2018 | | | Screening | | | | + + + + + Results Not on filefrom Last 3 Months Insurance + +--------+ +--------+ +---------+--------+ | Payer | Benefi | Subscriber | Effect | Phone | Address | Type | | | t Plan | ID | bernice | | | | | | / | | Dates | | | | | | Group | | | | | | + +--------+ +--------+ +---------+--------+ | MEDICARE | MEDICA | [id number] | 05/27/19 | [phone] | | Medica | | | RE | | 14-Pre | 5 | | re | | | PART A | | sent | | | | | | AND B | | | | | | + +--------+ +--------+ +---------+--------+ | [employer] | MODA | [id number] | 02/08/ | [phone] | | Medica | | MEDICAID HMO | HEALTH | | 2019-P | 1 | | id | | | MDCD | | resent | | | | | | HMO [place] | | | | | | + +--------+ +--------+ +---------+--------+ + +--------+ +--------+ + + | Guarantor Name | Accoun | Relation to | Date | Phone | Billing Address | | | t Type | Patient | of | | | | | | | | | | + +--------+ +--------+ + + | Jose Eaton | Person | Self | [birth year] | [address] | | | al/Fam | | 1951 | [phone] | [place] [address] | | | lee | | | 4 (Home) | | + +--------+ +--------+ + + Advance Directives + + + + + | Type | Date Recorded | Patient | Explanation | | | | Coil Cutter | | + + + + + | Power of | | | | | Sales Training Coordinator | | | | + + + + + | Advance | | | | | Directive | | | | + + + + +
--- OUTSIDE RECORDS SUMMARY | ~2019-02-11 | XMS | Encounter Summary ---
Demographics + + + | Address | [address] | | | [place] [address] | + + + | Home Phone | | + + + | Preferred Language | Unknown | + + + | Marital Status | Single | + + + | Jainism Affiliation | Unknown | + + + | Race | Unknown | + + + | Ethnic Group | Unknown | + + + Author + + + | Author | [facility] | | | and [place] | + + + | Organization | [facility] | | | [...] Team Providers + +------+ + | Care Crayon Molding Machine Operator Name | Role | Phone | + +------+ + PCP | Unavailable | + +------+ + Encounter Details +--------+ + + + + | Date | Type | Department | Care Team | Description | +--------+ + + + + | 06/25/ | Hospital | [facility] | Conversion | | | 2016 | Encounter | CENTER [facility] | Transaction, | | | | | CLINIC [address] | Provider Unknown | | | | | [place] | [phone] | | | | | [address] | | | | | | [phone] | | | +--------+ + + + [...] [address] | | | | | | [place] [address] | | | | | | [phone] | | | | | | | | +--------+ + + + + | 02/21/ | Surgery | | Saleem Shore, | COLONOSCOPY | | 2019 | | | MD [address] | | | | | | [address] | | | | | | [place] [address] | | | | | | [phone] | | | | | | | [...] | | | | | | [place] [address] | | | | + + + + + + | RED CELL | 4.22Comment: Testing | 4.20 - 5.70 | EXTERNAL | | | COUNT | performed at [facility], [address] | M/uL | LAB | | | | [address], | | | | | | [place] [address] | | | | + + + + + + | Hgb | 13.6Comment: Testing | 13.2 - 17.0 | EXTERNAL | | | | performed at [facility], [address] | g/dL | LAB | | | | [address], | | | | | | [place] [address] | | | | + + + + + + | Hematocrit, | 39.2Comment: Testing | 39.0 - 50.0 % | EXTERNAL | | | POC | performed at [facility], [address] | | LAB | | | | [address], | | | | | | [place] [address] | | | | + + + + + + | MCV | 93.0Comment: Testing | 80.0 - 100.0 fl | EXTERNAL | | | | performed at [facility], [address] | | LAB | | | | [address], | | | | | | [place] [address] | | | | + + + + + + | MCH | 32.4Comment: Testing | 27.0 - 34.0 pg | EXTERNAL | | | | performed at [facility], [address] | | LAB | | | | [address], | | | | | | [place] [address] | | | | + + + + + + | MCHC | 34.8Comment: Testing | 32.0 - 35.5 | EXTERNAL | | | | performed at [facility], [address] | g/dL | LAB | | | | [address], | | | | | | [place] [address] | | | | + + + + + + | RDW-CV | 44.2Comment: Testing | 37 - 53 fl | EXTERNAL | | | | performed at [facility], [address] | | LAB | | | | [address], | | | | | | [place] [address] | | | | + + + + + + | Platelet | 191Comment: Testing | 150 - 400 K/uL | EXTERNAL | | | Count | performed at [facility], [address] | | LAB | | | Plasma | [address], | | | | | | [place] [address] | | | | + + + + + + | MPV | 8.5Comment: Testing | fl | EXTERNAL | | | | performed at [facility], [address] | | LAB | | | | [address], | | | | | | [place] [address] | | | | + + + + + + | Differentia | AUTOMATEDComment: | | EXTERNAL | | | l Type | Testing performed at | | LAB | | | | [facility], [address] | | | | | | [place] | | | | | | [address] | | | | + + + + + + | % Segmented | 58.82Comment: Testing | % | EXTERNAL | | | | performed at [facility], [address] | | LAB | | | Neutrophils | [address] [place], | | | | | | [place] [address] | | | | + + + + + + | % | 29.12Comment: Testing | % | EXTERNAL | | | Lymphocytes | performed at [facility], [address] | | LAB | | | | [address], | | | | | | [place] [address] | | | | + + + + + + | % Monocytes | 8.35Comment: Testing | % | EXTERNAL | | | | performed at [facility], [address] | | LAB | | | | [address], | | | | | | [place] [address] | | | | + + + + + + | % | 2.36Comment: Testing | % | EXTERNAL | | | Eosinophils | performed at [facility], [address] | | LAB | | | | [address], | | | | | | [place] [address] | | | | + + + + + + | % Basophils | 1.35Comment: Testing | % | EXTERNAL | | | | performed at [facility], [address] | | LAB | | | | [address], | | | | | | [place] [address] | | | | + + + + + + | Absolute | 2.71Comment: Testing | 1.90 - 7.40 | EXTERNAL | | | Segmented | performed at [facility], [address] | K/uL | LAB | | | Neutrophils | [address], | | | | | | [place] [address] | | | | + + + + + + | Absolute | 1.34Comment: Testing | 1.00 - 3.90 | EXTERNAL | | | Lymphocytes | performed at [facility], [address] | K/uL | LAB | | | | [address], | | | | | | [place] [address] | | | | + + + + + + | Absolute | 0.39Comment: Testing | 0.00 - 0.80 | EXTERNAL | | | Monocytes | performed at [facility], [address] | K/uL | LAB | | | | [address], | | | | | | [place] [address] | | | | + + + + + + | Absolute | 0.11Comment: Testing | 0.00 - 0.50 | EXTERNAL | | | Eosinophils | performed at [facility], [address] | K/uL | LAB | | | | [address], | | | | | | [place] [address] | | | | + + + + + + | Absolute | 0.06Comment: Testing | 0.00 - 0.10 | EXTERNAL | | | Basophils | performed at [facility], [address] | K/uL | LAB | | | | [place], | | | | | | [place] [address] | | | | + + + [...] | | | | [place] [address] | | | | + + + + + + | K | 4.1Comment: Testing | 3.5 - 4.9 | EXTERNAL | | | | performed at [facility], [address] | mmol/L | LAB | | | | [place], | | | | | | [place] [address] | | | | + + + + + + | Cl | 104Comment: Testing | 99 - 109 mmol/L | EXTERNAL | | | | performed at [facility], [address] | | LAB | | | | [address], | | | | | | [place] [address] | | | | + + + + + + | CO2 | 26Comment: Testing | 23 - 32 mmol/L | EXTERNAL | | | | performed at [facility], [address] | | LAB | | | | [address], | | | | | | [place] [address] | | | | + + + + + + | Anion Gap | 9Comment: Testing | 5 - 20 mmol/L | EXTERNAL | | | | performed at [facility], [address] | | LAB | | | | [address], | | | | | | [place] [address] | | | | + + + + + + | Glucose, | 86Comment: Testing | 65 - 99 mg/dL | EXTERNAL | | | Fasting | performed at [facility], [address] | | LAB | | | | [address], | | | | | | [place] [address] | | | | + + + + + + | BUN | 9Comment: Testing | 8 - 25 mg/dL | EXTERNAL | | | | performed at [facility], [address] | | LAB | | | | [address], | | | | | | [place] [address] | | | | + + + + + + | Creatinine | 0.74Comment: Testing | 0.70 - 1.30 | EXTERNAL | | | | performed at [facility], [address] | mg/dL | LAB | | | | [address], | | | | | | [place] [address] | | | | + + + + + + | BUN/Creatin | 12Comment: Testing | | EXTERNAL | | | ine Ratio | performed at [facility], [address] | | LAB | | | | [address], | | | | | | [place] [address] | | | | + + + + + + | Calcium | 9.1Comment: Testing | 8.5 - 10.5 | EXTERNAL | | | | performed at [facility], [address] | mg/dL | LAB | | | | [place], | | | | | | [place] [address] | | | | + + + + + + | Protein, | 7.3Comment: Testing | 6.3 - 8.2 g/dL | EXTERNAL | | | Total | performed at [facility], [address] | | LAB | | | | [place], | | | | | | [place] [address] | | | | + + + + + + | Albumin | 3.7Comment: Testing | 3.3 - 4.8 g/dL | EXTERNAL | | | | performed at [facility], [address] | | LAB | | | [address], | | | | | | [place] [address] | | | | + + + + + + | Globulin | 3.6Comment: Testing | 1.3 - 4.9 g/dL | EXTERNAL | | | | performed at [facility], [address] | | LAB | | | | [address], | | | | | | [place] [address] | | | | + + + + + + | A/G Ratio | 1.0Comment: Testing | 1.0 - 2.4 | EXTERNAL | | | | performed at [facility], [address] | | LAB | | | | [address], | | | | | | [place] [address] | | | | + + + + + + | Bilirubin | 0.6Comment: Testing | 0.1 - 1.5 mg/dL | EXTERNAL | | | Total | performed at [facility], [address] | | LAB | | | | [address], | | | | | | [place] [id number] | | | | + + + + + + | ALP, | 116 (H)Comment: Testing | 35 - 115 U/L | EXTERNAL | | | External | performed at [facility], [address] | | LAB | | | | [address], | | | | | | [place] [address] | | | | + + + + + + | AST | 15Comment: Testing | 10 - 45 U/L | EXTERNAL | | | | performed at [facility], [address] | | LAB | | | | [address], | | | | | | [place] [address] | | | | + + + + + + | ALT | 14Comment: Testing | 10 - 65 U/L | EXTERNAL | | | | performed at [facility], [address] | | LAB | | | | [address], | | | | | | [place] [address] | | | | + + + [...] [place], | | | | | | [place] [address] | | | | + + + [...]
--- OUTSIDE RECORDS SUMMARY | ~2019-02-11 | XMS | Encounter Summary ---
Demographics + + + | Address | [address] | | | [place] [address] | + + + | Home Phone [...] + + | Organization | [facility] | | | [...] Team Providers + +------+ + | Care Construction Job Cost Estimator Name | Role | Phone | + [...] + + | 02/08/ | Telephone | [facility] | Saleem Shore, | Other (schedule | | 2019 | | GENERAL SURGERY [address] | [address] | surgery) | | | | [address] | [address] | | | | | [place], [place] | [place] [address] | | | | | [address] | [phone] | | | | | [phone] | | | +--------+ + + + [...] [address] | | | | | | [place] [address] | | | | | | [phone] | | | | | | | | +--------+ + + + + | 02/21/ | Surgery | | Saleem Shore, | COLONOSCOPY | | 2018 | | | MD [address] | | | | | | [address] | | | | | | [place] [address] | | | | | | [phone] | | | | | | | | +--------+ + + + + documented as of this encounter Visit Diagnoses Not on filedocumented in this encounter"
--- OUTSIDE RECORDS SUMMARY | ~2019-02-11 | XMS | Encounter Summary ---
Demographics + + + | Address | [address] | | | [place] [address] | + + + | Home Phone | | + + + | Preferred Language | Unknown | + + + | Marital Status | Single | + + + | Cheondoism Affiliation | Unknown | + + + [...] Team Providers + +------+ + | Care Telephone Advice Nurse Name | Role | Phone | + +------+ + PCP | Unavailable | + +------+ + Encounter Details +--------+ + + + + | Date | Type | Department | Care Team | Description | +--------+ + + + + | 12/19/ | Hospital | [facility] | Conversion | | | 2015 | Encounter | CENTER [facility] | Transaction, | | | | | CLINIC [address] | Provider Unknown | | | | | [place] | [phone] | | | | | [address] | | | | | | [phone] | | | +--------+ + + + [...] | | | | [place] [address] | | | | | | [phone] | | | | | | | | +--------+ + + + + | 02/21/ | Surgery | | Saleem Shore, | COLONOSCOPY | | 2019 | | | MD Rebecca [address] | | | | | | [address] | | | | | | [place] [address] | | | | | | [phone] | | | | | | | | +--------+ + + + + documented as of this encounter Visit Diagnoses Not on filedocumented in this encounter"
--- OUTSIDE RECORDS SUMMARY | ~2019-02-11 | XMS | Encounter Summary ---
Demographics + + + | Address | [address] | | | [place] [address] | + + + | Home Phone [...] Team Providers + +------+ + | Care Auditor Medical Claims Name | Role | Phone | + [...] | | | [place] | [phone] | | | | | [address] | | | | | | [phone] | | | +--------+ + + + [...] [address] | | | | | | [place] [address] | | | | | | [phone] | | | | | | | | +--------+ + + + + | 02/21/ | Surgery | | Saleem Shore, | COLONOSCOPY | | 2019 | | | [address] [facility] | | | | | | [address] | | | | | | [place] [address] | | | | | | [phone] | | | | | | | [...]
--- OUTSIDE RECORDS SUMMARY | ~2019-02-11 | XMS | Encounter Summary ---
Demographics + + + | Address | [address] | | | [place] [address] | + + + | Home Phone [...] Team Providers + +------+ + | Care Cream Dumper Name | Role | Phone | + +------+ + PCP | Unavailable | + +------+ + Encounter Details +--------+ + + + + | Date | Type | Department | Care Team | Description | +--------+ + + + + | 01/01/ | Hospital | [facility] | Conversion | Ostomy nurse | | 2015 | Encounter | CENTER OUTPATIENT | Transaction, | consultation | | | | WOUND CARE [address] | Provider Unknown | | | | | [place], [place] | [phone] | | | | | [address] | | | | | | [phone] | | | +--------+ + + + [...] Notes by Susan Bennett RN at 01/01/15 9764 Author: Susan Bennett RN Service: (none) Author Type: Registered Nurse Filed: 01/01/15 9693 Encounter Date: 01/01/2015 Status: Addendum Kicking Machine Operator: Susan Bennett RN (Registered Nurse) Related Notes: Original Note by Susan Bennett RN (Registered Nurse) filed at 01/01/15 7561 Pre. Op teaching done. Ileostomy packet reviewed [...] skin sealant. Teg aderm placed over site. transformation consultant here with patient for consultation and patient questions answered with help of cutting inspector. I spent 60 minutes with this patient in consultation and examination. SUSAN NGUYEN, RN, CWOCN Electronically signed by [facility] ([place], [place]) Catarina, Provider at 11/19/2018 4:21 PM PDTdocume lintoned in this encounter Plan of Treatment +--------+ + + + + | Date | Type | Specialty | Care Team | Description | +--------+ + + + + | 02/21/ | Hospital | | Saleem Shore, | Rectal prolapse | | 2018 | Encounter | | MD Rebecca BRUNO | | | | | | [facility] [address] | | | | | | [place] [address] | | | | | | [phone] | | | | | | | | +--------+ + + + + | 02/21/ | Surgery | | Saleem Shore, | COLONOSCOPY | | 2018 | | | MD Rebecca BRUNO | | | | | | [facility] [address] | | | | | | [place] [address] | | | | | | [phone] | | | | | | | | +--------+ + + + + documented as of this encounter Visit Diagnoses + + | Diagnosis | + + | Ostomy nurse consultation | + + documented in this encounter
--- OUTSIDE RECORDS SUMMARY | ~2019-02-11 | XMS | Encounter Summary ---
Demographics + + + | Address | [address] | | | [place] [address] | + + + | Home Phone | | + + + | Preferred Language | Unknown | + + + | Marital Status | Single | + + + | Worship Affiliation | Unknown | + + + | Race | Unknown | + + + | Ethnic Group | Unknown | + + + Author + + + | Author | [facility] | | | and [place] | + + + | Organization | [facility] | | | [...] Team Providers + +------+ + | Care Autocad Detailer Name | Role | Phone | + [...] | | | [place] | [phone] | | | | | [address] | | | | | | [phone] | | | +--------+ + + + [...] [address] | | | | | | [place] [address] | | | | | | [phone] | | | | | | | | +--------+ + + + + | 02/21/ | Surgery | | Saleem Shore, | COLONOSCOPY | | 2019 | | | [address] [facility] | | | | | | [address] | | | | | | [place] [address] | | | | | | [phone] | | | | | | | [...]
--- OUTSIDE RECORDS SUMMARY | ~2019-02-11 | XMS | Encounter Summary ---
Demographics + + + | Address | [address] | | | [place] [address] | + + + | Home Phone | | + + + | Preferred Language | Unknown | + + + | Marital Status | Single | + + + | Catholic Affiliation | Unknown | + + + | Race | Unknown | + + + | Ethnic Group | Unknown | + + + Author + + + | Author | [facility] | | | and [place] | + + + | Organization | [facility] | | | [...] Team Providers + +------+ + | Care Monogram Technician Name | Role | Phone | + +------+ + PCP | Unavailable | + +------+ + Encounter Details +--------+ + + + + | Date | Type | Department | Care Team | Description | +--------+ + + + + | 08/14/ | Hospital | [facility] | Conversion | | | 2014 | Encounter | CENTER [facility] | Transaction, | | | | | CLINIC [address] | Provider Unknown | | | | | [place], [place] | [phone] | | | | | [address] | | | | | | [phone] | | | +--------+ + + + [...] | | | | [place] [address] | | | | | | [phone] | | | | | | | | +--------+ + + + + | 02/21/ | Surgery | | Saleem Shore, | COLONOSCOPY | | 2019 | | | MD Rebecca [address]UNO | | | | | | [address] | | | | | | [place] [address] | | | | | | [phone] | | | | | | | | +--------+ + + + + documented as of this encounter Visit Diagnoses Not on filedocumented in this encounter"
--- OUTSIDE RECORDS SUMMARY | ~2019-02-11 | XMS | Encounter Summary ---
Demographics + + + | Address | [address] | | | [place] [address] | + + + | Home Phone | | + + + | Preferred Language | Unknown | + + + | Marital Status | Single | + + + | Nondenominational Affiliation | Unknown | + + + | Race | Unknown | + + + | Ethnic Group | Unknown | + + + Author + + + | Author | [facility] | | | and [place] | + + + | Organization | [facility] | | [...] Team Providers + +------+ + | Care Administrative Sales Assistant Name | Role | Phone | + +------+ + PCP | Unavailable | + +------+ + Encounter Details +--------+ + + + + | Date | Type | Department | Care Team | Description | +--------+ + + + + | 09/06/ | Hospital | [facility] | Conversion | Rectal cancer (HCC) | | 2014 | Encounter | CENTER [facility] OP | Transaction, | | | | | [address] | Provider Unknown | | | | | [place], [place] | [phone] | | | | | [address] | | | | | | [phone] | Wood Kaufman MD | | | | | | [address] | | | | | | [place], [place] | | | | | | [address] | | | | | | | [...] Note by Porsche Lane RN at 09/06/14 656 Author: Porsche Lane RN Service: (none) Author Type: Registered Nurse Filed: 09/06/14 1054 Date of Service: 09/06/141048 Status: Signed Supervisor Picking Crew: Porsche A Lane, RN (Registered Nurse) Pt tolerated procedure well. Mediport in place to right chest CDI. Pt able to tolerate juic e and crackers without difficulty. Discharge educated provided to patient via net developer architect se stout and pt verbalized understanding. Handout also provided. Pt to discharge to private [facility] e with friend to provide needed support. [...] [address] | | | | | | [place] [address] | | | | | | [phone] | | | | | | | | +--------+ + + + + | 02/21/ | Surgery | | Saleem Shore, | COLONOSCOPY | | 2018 | | | MD Rebecca [address]UN[address] | | | | | | [address] | | | | | | [place] [address] | | | | | | [phone] | | | | | | | [...] injectable chest port. PRIMARY | | | HVAC ENGINEERING TECHNICIAN: Wood Kaufman MD, PhD, RPVI PROCEDURE: Informed [...] attached to the catheter tubing and the 6-Danish Bard PowerPort | | | chest port [...] power injectable chest port. | | PRIMARY HVAC ENGINEERING TECHNICIAN: Wood Kaufman MD, PhD, RPVI PROCEDURE: Informed [...] attached to the catheter tubing and the 6-Danish Bard PowerPort chest | | port was [...] | | | | | performed at [facility];[address] | | | | | | [address];[place], [place] | | | | | | [address] | | | | + + + [...] EXTERNAL LAB | | Testing performed at [facility];[address] [place] [address];[place] [address] MRSA PCR | | | NEGATIVE Testing performed at | | | [facility];[address] [place] [address];[place] [address] | | + + + + +---------+ [...]
--- OUTSIDE RECORDS SUMMARY | ~2019-02-11 | XMS | Encounter Summary ---
Demographics + + + | Address | [address] | | | [place] [address] | + + + | Home Phone | | + + + | Preferred Language | Unknown | + + + | Marital Status | Single | + + + | Adventism Affiliation | Unknown | + + + | Race | Unknown | + + + | Ethnic Group | Unknown | + + + Author + + + | Author | [facility] | | | and [place] | + + + | Organization | [facility] | | | and [...] Team Providers + +------+ + | Care Cigarette Maker Name | Role | Phone | + +------+ + PCP | Unavailable | + +------+ + Encounter Details +--------+ + + + + | Date | Type | Department | Care Team | Description | +--------+ + + + + | 04/30/ | Hospital | [facility] | Saleem Shore, | Rectal cancer (HCC) | | 2015 | Encounter | [facility] | [address] | | | | | INTRA OP [address] | [address] | | | | | [address] [place], [place] | [place] [address] | | | | | [address] | [phone] | | | | | [phone] | | | +--------+ + + + [...] [address] | | | | | | [place] [address] | | | | | | [phone] | | | | | | | | +--------+ + + + + | 02/21/ | Surgery | | Saleem Shore, | COLONOSCOPY | | 2019 | | | MD [address] | | | | | | [address] | | | | | | [place] [address] | | | | | | [phone] | | | | | | | | +--------+ + + + + documented as of this encounter Visit Diagnoses + + | Diagnosis | + + | Rectal cancer (HCC) Malignant neoplasm of rectum | + + documented in this encounter"
--- OUTSIDE RECORDS SUMMARY | ~2019-02-11 | XMS | Encounter Summary ---
Demographics + + + | Address | [address] | | | [place] [address] | + + + | Home Phone | | + + + | Preferred Language | Unknown | + + + | Marital Status | Single | + + + | Congregation Affiliation | Unknown | + + + | Race | Unknown | + + + | Ethnic Group | Unknown | + + + Author + + + | Author | [facility] | | | and [place] | + + + | Organization | [facility] | | | [...] Team Providers + +------+ + | Care Terrazzo Mechanic Name | Role | Phone | + +------+ + PCP | Unavailable | + +------+ + Encounter Details +--------+ + + + + | Date | Type | Department | Care Team | Description | +--------+ + + + + | 07/10/ | Hospital | [facility] | Saleem Shore, | Rectal cancer (HCC) | | 2016 - | Encounter | [facility] [address] | MD [address] | | | | | [address] | [address] | | | 07/13/ | | [place], [place] | [place] [address] | | | 2016 | | [address] | [phone] | | | | | [phone] | | | +--------+ + + + [...] 07/14/1527 Date of Service: 07/14/15923 Status: Signed Industrial Relations Representative: JONATHON Zambrano (Nurse Practitioner) [facility] Service: Colon & Rectal Surgery Discharge Summary [...] Surgeon: Saleem Shore MD; Location: [facility]; Service: General; Laterality: N/A; Total hip arthroplasty Bilateral Knee surgery Right Flexible sigmoidoscopy N/A 12/25/2014 Procedure: SIGMOIDOSCOPY - FLEXIBLE; Surgeon: Saleem Shore MD; Location: [facility]; Service: General; Laterality: N/A; Robotic assisted laparoscopic colon resection - coloanal N/A 01/03/2015 Procedure: ROBOTIC ASSISTED LAPAROSCOPIC COLON RESECTION - COLOANAL; Surgeon: Saleem chauhan MD; Location: [facility]; Service: General; Laterality: N/A; coloanal pull thr ough Flexible sigmoidoscopy N/A 01/03/2015 Procedure: SIGMOIDOSCOPY - FLEXIBLE; Surgeon: Saleem Shore MD; Location: [facility]; Service: General; Laterality: N/A; Sigmoidoscopy - rigid N/A 01/03/2015 Procedure: SIGMOIDOSCOPY - RIGID; Surgeon: Saleem Shore MD; Location: [facility] ; Service: General; Laterality: N/A; Flexible bronchoscopy N/A 01/17/2015 Procedure: BRONCHOSCOPY - FLEXIBLE; Surgeon: Lui Lindsey MD; Location: [facility] PROCEDURE; Service: Printing Plate Setter; Laterality: N/A; Flexible sigmoidoscopy N/A 04/30/2015 Procedure: SIGMOIDOSCOPY - FLEXIBLE; Surgeon: Saleem Shore MD; Location: [facility]; Service: General; Laterality: N/A; Ileostomy revision N/A 07/11/2015 Procedure: ILEOSTOMY - TAKE DOWN OR REVISION; Surgeon: Saleem Shore MD; Location: [facility]; Service: General; Laterality: N/A; Allergies [...] 07/14/151825 Date of Service: 07/14/151821 Status: Signed Industrial Relations Representative: Belén Horn RN (Registered Nurse) Pt has been discharged home. Rx and paperwork has been discussed and he knows to follow up as directed. He is ambulating, tolerating food, voiding and pain is controlled. He has no fu rther questions at this time. All instructions have been discussed with pt's friend and with am emr specialist. onver alex Transaction, Provider Unknown - 07/14/2015 8:32 AM PDT Case Management by BRIA Ward at 07/14/15831 Author: BRIA Ward Service: (none) Author Type: Employment Specialist Filed: 07/14/15 0833 Date of Service: 07/14/15831 Status: Signed Industrial Relations Representative: BRIA Ward (Employment Specialist) CM met with pt for continued [...] 07/14/15454 Date of Service: 07/14/15451 Status: Signed Industrial Relations Representative: Kris Smith RN (Registered Nurse) Patient continues [...] 1109 Date of Service: 07/13/158 Status: Signed Industrial Relations Representative: Saleem Shore MD (Physician) [facility] Service: Colon & Rectal Surgery Progress Note [...] 07/13/1542 Date of Service: 07/13/15540 Status: Signed Industrial Relations Representative: Kris Smith RN (Registered Nurse) Overnight patient passed a substantial amount of gas, mucous, and old blood that appeared c onsistent with surgical remnants. Patient denies any changes in pain, stomach remains rounde d, soft, and supple; abdominal tenderness remains as it was at shift change, and there is no asael blood. [facility]. Kris Smith RN 07/13/2015 5:42 AM aleem Christie MD - 07/12/2015 9:55 AM PDT Progress Notes by Saleem Shore MD at 07/12/1555 Author: Saleem Shore MD Service: General Surgery Author Type: Physician Filed: 07/12/1557 Date of Service: 07/12/15954 Status: Signed Industrial Relations Representative: Saleem Shore MD (Physician) [facility] Service: Colon & Rectal Surgery Progress Note [...] 07/12/1548 Date of Service: 07/12/15546 Status: Signed Industrial Relations Representative: Kris Smith RN (Registered Nurse) Patient educated [...] Author: BRIA Ward Service: (none) Author Type: Employment Specialist Filed: 07/11/151512 Date of Service: 07/11/151511 Status: Signed Industrial Relations Representative: BRIA Ward (Employment Specialist) CM met with pt for discharge [...] 07/11/151411 Date of Service: 07/11/151411 Status: Signed Industrial Relations Representative: Harry Santos RPH (Pharmacist) Pharmacy will renal [...] [address] | | | | | | [facility] [address] | | | | | | [place] [address] | | | | | | [phone] | | | | | | | | +--------+ + + + + | 02/21/ | Surgery | | Saleem Shore, | COLONOSCOPY | | 2019 | | | [address] | | | | | | [address] | | | | | | [place] [address] | | | | | | [phone] | | | | | | | [...] | | average thickness of 0.8 cm. Spindle Tester sections of skin and bowel | | [...] | | | preparation was performed by [facility] | | | [address] [address] (Camera Control Operator: | | | Rahul Adamson M.D.; [facility]#: [id number]). Diagnostician: Asya Garcia | | | Mary [...] EXTERNAL | | | | performed at [facility], [address] | K/uL | LAB | | | | [address] [place], | | | | | | [place] [address] | | | | + + + + + + | RED CELL | 3.87 (L)Comment: Testing | 4.20 - 5.70 | EXTERNAL | | | COUNT | performed at [facility], [address] | M/uL | LAB | | | | [address], | | | | | | [place] [address] | | | | + + + + + + | Hgb | 12.5 (L)Comment: Testing | 13.2 - 17.0 | EXTERNAL | | | | performed at [facility], [address] | g/dL | LAB | | | | [address], | | | | | | [place] [address] | | | | + + + + + + | Hematocrit, | 36.2 (L)Comment: Testing | 39.0 - 50.0 % | EXTERNAL | | | POC | performed at [facility], [address] | | LAB | | | | [address], | | | | | | [place] [address] | | | | + + + + + + | MCV | 93.7Comment: Testing | 80.0 - 100.0 fl | EXTERNAL | | | | performed at [facility], [address] | | LAB | | | | [address], | | | | | | [place] [address] | | | | + + + + + + | MCH | 32.3Comment: Testing | 27.0 - 34.0 pg | EXTERNAL | | | | performed at [facility], [address] | | LAB | | | | [address], | | | | | | [place] [address] | | | | + + + + + + | MCHC | 34.5Comment: Testing | 32.0 - 35.5 | EXTERNAL | | | | performed at [facility], [address] | g/dL | LAB | | | | [address], | | | | | | [place] [address] | | | | + + + + + + | RDW-CV | 43.3Comment: Testing | 37 - 53 fl | EXTERNAL | | | | performed at [facility], [address] | | LAB | | | | [address], | | | | | | [place] [address] | | | | + + + + + + | Platelet | 187Comment: Testing | 150 - 400 K/uL | EXTERNAL | | | Count | performed at [facility], [address] | | LAB | | | Plasma | [address], | | | | | | [place] [address] | | | | + + + + + + | MPV | 8.2Comment: Testing | fl | EXTERNAL | | | | performed at [facility], [address] | | LAB | | | | [address], | | | | | | [place] [address] | | | | + + + + + + | Differentia | AUTOMATEDComment: | | EXTERNAL | | | l Type | Testing performed at | | LAB | | | | [facility], [address] | | | | | | [place] | | | | | | [address] | | | | + + + + + + | % Segmented | 73.77Comment: Testing | % | EXTERNAL | | | | performed at [facility], [address] | | LAB | | | Neutrophils | [address], | | | | | | [place] [address] | | | | + + + + + + | % | 17.27Comment: Testing | % | EXTERNAL | | | Lymphocytes | performed at [facility], [address] | | LAB | | | | [address], | | | | | | [place] [address] | | | | + + + + + + | % Monocytes | 6.10Comment: Testing | % | EXTERNAL | | | | performed at [facility], [address] | | LAB | | | | [address], | | | | | | [place] [address] | | | | + + + + + + | % | 2.14Comment: Testing | % | EXTERNAL | | | Eosinophils | performed at [facility], [address] | | LAB | | | | [address], | | | | | | [place] [address] | | | | + + + + + + | % Basophils | 0.72Comment: Testing | % | EXTERNAL | | | | performed at [facility], [address] | | LAB | | | | [address], | | | | | | [place] [address] | | | | + + + + + + | Absolute | 4.48Comment: Testing | 1.90 - 7.40 | EXTERNAL | | | Segmented | performed at [facility], [address] | K/uL | LAB | | | Neutrophils | [address], | | | | | | [place] [address] | | | | + + + + + + | Absolute | 1.05Comment: Testing | 1.00 - 3.90 | EXTERNAL | | | Lymphocytes | performed at [facility], [address] | K/uL | LAB | | | | [address], | | | | | | [place] [address] | | | | + + + + + + | Absolute | 0.37Comment: Testing | 0.00 - 0.80 | EXTERNAL | | | Monocytes | performed at [facility], [address] | K/uL | LAB | | | | [address], | | | | | | [place] [address] | | | | + + + + + + | Absolute | 0.13Comment: Testing | 0.00 - 0.50 | EXTERNAL | | | Eosinophils | performed at [facility], [address] | K/uL | LAB | | | [address], | | | | | | [place] [address] | | | | + + + + + + | Absolute | 0.04Comment: Testing | 0.00 - 0.10 | EXTERNAL | | | Basophils | performed at [facility], [address] | K/uL | LAB | | | | [address], | | | | | | [place] [address] | | | | + + + [...] | | | | [place] [address] | | | | + + [...] EXTERNAL | | | | performed at [facility], [address] | | LAB | | | | [address], | | | | | | [place] [address] | | | | + + + [...] | | | | [place] [address] | | | | + + + + + + | K | 3.7Comment: Testing | 3.5 - 4.9 | EXTERNAL | | | | performed at [facility], [address] | mmol/L | LAB | | | | [address], | | | | | | [place] [address] | | | | + + + + + + | Cl | 102Comment: Testing | 99 - 109 mmol/L | EXTERNAL | | | | performed at [facility], [address] | | LAB | | | | [address], | | | | | | [place] [address] | | | | + + + + + + | CO2 | 26Comment: Testing | 23 - 32 mmol/L | EXTERNAL | | | | performed at [facility], [address] | | LAB | | | | [address], | | | | | | [place] [address] | | | | + + + + + + | Anion Gap | 10Comment: Testing | 5 - 20 mmol/L | EXTERNAL | | | | performed at [facility], [address] | | LAB | | | | [address], | | | | | | [place] [address] | | | | + + + + + + | Glucose, | 80Comment: Testing | 65 - 99 mg/dL | EXTERNAL | | | Fasting | performed at [facility], [address] | | LAB | | | | [address], | | | | | | [place] [address] | | | | + + + + + + | BUN | 9Comment: Testing | 8 - 25 mg/dL | EXTERNAL | | | | performed at [facility], [address] | | LAB | | | | [address], | | | | | | [place] [address] | | | | + + + + + + | Creatinine | 0.71Comment: Testing | 0.70 - 1.30 | EXTERNAL | | | | performed at [facility], [address] | mg/dL | LAB | | | | [address], | | | | | | [place] [address] | | | | + + + + + + | BUN/Creatin | 13Comment: Testing | | EXTERNAL | | | ine Ratio | performed at [facility], [address] | | LAB | | | | [address], | | | | | | [place] [address] | | | | + + + + + + | Calcium | 8.4 (L)Comment: Testing | 8.5 - 10.5 | EXTERNAL | | | | performed at [facility], [address] | mg/dL | LAB | | | | [address], | | | | | | [place] [address] | | | | + + + [...] | | | | | | at [facility], [address] | | | | | | [place] [address], | | | | | | [place] [address] | | | | + + + [...] EXTERNAL | | | | performed at [facility];[address] | K/uL | LAB | | | | [address];[place] | | | | | | [address] | | | | + + + + + + | RED CELL | 3.82 (L)Comment: Testing | 4.20 - 5.70 | EXTERNAL | | | COUNT | performed at [facility];[address] | M/uL | LAB | | | | [address];[place] | | | | | | [address] | | | | + + + + + + | Hgb | 12.5 (L)Comment: Testing | 13.2 - 17.0 | EXTERNAL | | | | performed at [facility];[address] | g/dL | LAB | | | | [address];[place] | | | | | | [address] | | | | + + + + + + | Hematocrit, | 34.9 (L)Comment: Testing | 39.0 - 50.0 % | EXTERNAL | | | POC | performed at [facility];[address] | | LAB | | | | [address];[place] | | | | | | [address] | | | | + + + + + + | MCV | 91.5Comment: Testing | 80.0 - 100.0 fl | EXTERNAL | | | | performed at [facility];[address] | | LAB | | | | [address];[place] | | | | | | [address] | | | | + + + + + + | MCH | 32.8Comment: Testing | 27.0 - 34.0 pg | EXTERNAL | | | | performed at [facility];[address] | | LAB | | | | [address];[place] | | | | | | [address] | | | | + + + + + + | MCHC | 35.8 (H)Comment: Testing | 32.0 - 35.5 | EXTERNAL | | | | performed at [facility];[address] | g/dL | LAB | | | | [address];[place] | | | | | | [address] | | | | + + + + + + | RDW-CV | 43.3Comment: Testing | 37 - 53 fl | EXTERNAL | | | | performed at [facility];[address] | | LAB | | | | [address];[place] | | | | | | [address] | | | | + + + + + + | Platelet | 197Comment: Testing | 150 - 400 K/uL | EXTERNAL | | | Count | performed at [facility];[address] | | LAB | | | Plasma | [address];[place] | | | | | | [address] | | | | + + + + + + | MPV | 7.5Comment: Testing | fl | EXTERNAL | | | | performed at [facility];[address] | | LAB | | | | [address];[place] | | | | | | [address] | | | | + + + + + + | Differentia | AUTOMATEDComment: | | EXTERNAL | | | l Type | Testing performed at | | LAB | | | | [place] | | | [address];[place] [address] | | | | + + + + + + | % Segmented | 80.27Comment: Testing | % | EXTERNAL | | | | performed at [facility];[address] | | LAB | | | Neutrophils | [address];[place] | | | | | | [address] | | | | + + + + + + | % | 11.95Comment: Testing | % | EXTERNAL | | | Lymphocytes | performed at [facility];[address] | | LAB | | | | [address];[place] | | | | | | [address] | | | | + + + + + + | % Monocytes | 7.21Comment: Testing | % | EXTERNAL | | | | performed at [facility];[address] | | LAB | | | | [address];[place] | | | | | | [address] | | | | + + + + + + | % | 0.09Comment: Testing | % | EXTERNAL | | | Eosinophils | performed at [facility];[address] | | LAB | | | | [address];[place] | | | | | | [address] | | | | + + + + + + | % Basophils | 0.48Comment: Testing | % | EXTERNAL | | | | performed at [facility];[address] | | LAB | | | | [address];[place] | | | | | | [address] | | | | + + + + + + | Absolute | 5.45Comment: Testing | 1.90 - 7.40 | EXTERNAL | | | Segmented | performed at [facility];[address] | K/uL | LAB | | | Neutrophils | [address] [place] | | | | | | [address] | | | | + + + + + + | Absolute | 0.81 (L)Comment: Testing | 1.00 - 3.90 | EXTERNAL | | | Lymphocytes | performed at [facility];[address] | K/uL | LAB | | | | [address];[place] | | | | | | [address] | | | | + + + + + + | Absolute | 0.49Comment: Testing | 0.00 - 0.80 | EXTERNAL | | | Monocytes | performed at [facility];[address] | K/uL | LAB | | | | [address];[place] | | | | | | [address] | | | | + + + + + + | Absolute | 0.01Comment: Testing | 0.00 - 0.50 | EXTERNAL | | | Eosinophils | performed at [facility];[address] | K/uL | LAB | | | | [address];[place] | | | | | | [address] | | | | + + + + + + | Absolute | 0.03Comment: Testing | 0.00 - 0.10 | EXTERNAL | | | Basophils | performed at [facility];[address] | K/uL | LAB | | | | [address];[place] | | | | | | [address] | | | | + + + [...] EXTERNAL | | | | performed at [facility];[address] | | LAB | | | | [address];[place], [place] | | | | | | [address] | | | | + + + [...] EXTERNAL | | | | performed at [facility];888 | mmol/L | LAB | | | | [address];[place] | | | | | | [address] | | | | + + + + + + | K | 4.3Comment: Testing | 3.5 - 4.9 | EXTERNAL | | | | performed at [facility];888 | mmol/L | LAB | | | | [address];[place] | | | | | | [address] | | | | + + + + + + | Cl | 100Comment: Testing | 99 - 109 mmol/L | EXTERNAL | | | | performed at [facility];[address] | | LAB | | | | [address];[place] | | | | | | [address] | | | | + + + + + + | CO2 | 28Comment: Testing | 23 - 32 mmol/L | EXTERNAL | | | | performed at [facility];[address] | | LAB | | | | [address];[place] | | | | | | [address] | | | | + + + + + + | Anion Gap | 12Comment: Testing | 5 - 20 mmol/L | EXTERNAL | | | | performed at [facility];[address] | | LAB | | | | [address];[place] | | | | | | [address] | | | | + + + + + + | Glucose, | 100 (H)Comment: Testing | 65 - 99 mg/dL | EXTERNAL | | | Fasting | performed at [facility];[address] | | LAB | | | | [address];[place] | | | | | | [address] | | | | + + + + + + | BUN | 8Comment: Testing | 8 - 25 mg/dL | EXTERNAL | | | | performed at [facility];[address] | | LAB | | | | [address];[place] | | | | | | [address] | | | | + + + + + + | Creatinine | 0.68 (L)Comment: Testing | 0.70 - 1.30 | EXTERNAL | | | | performed at [facility];888 | mg/dL | LAB | | | | [address];[place] | | | | | | [address] | | | | + + + + + + | Calcium | 8.0 (L)Comment: Testing | 8.5 - 10.5 | EXTERNAL | | | | performed at [facility];888 | mg/dL | LAB | | | | [address];[place] | | | | | | [address] | | | | + + + + + + | Albumin | 2.8 (L)Comment: Testing | 3.3 - 4.8 g/dL | EXTERNAL | | | | performed at [facility];[address] | | LAB | | | | [address];[place] | | | | | | [address] | | | | + + + + + + | PHOSPHORUS | 2.9Comment: Testing | 2.3 - 4.8 mg/dL | EXTERNAL | | | | performed at [facility];[address] | | LAB | | | | [address];[place] | | | | | | [address] | | | | + + + [...] | | | | | | at [facility];[address] | [address];[place] [address] | | | | + + + [...]
--- OUTSIDE RECORDS SUMMARY | ~2019-02-11 | XMS | Encounter Summary ---
Demographics + + + | Address | [address] | | | [place] [address] | + + + | Home Phone [...] Team Providers + +------+ + | Care Sander Portable Machine Name | Role | Phone | + [...] + + | 01/18/ | Office | [facility] | Saleem Shore, | Rectal prolapse | | 2019 | Visit | GENERAL SURGERY [address] | [address] | (Primary Dx) | | | | [address] | [facility] [address] | | | | | [place], [place] | [place] [address] | | | | | [address] | [phone] | | | | | [phone] | | | +--------+---------+ + + + [...] OR REVISION; Surgeon: Saleem myrick MD; Location: [facility] MAIN OR; Service: General; Laterality: N/A; OTHER SURGICAL HISTORY 04/30/2015 FLEXIBLE SIGMOIDOSCOPY - Procedure: SIGMOIDOSCOPY - FLEXIBLE; Surgeon: Saleem Shore MD; Location: [facility] ENDOSCOPY; Service: General; Laterality: N/A; OTHER SURGICAL HISTORY 01/17/2015 FLEXIBLE BRONCHOSCOPY - Procedure: BRONCHOSCOPY - FLEXIBLE; Surgeon: Lui Lindsey MD; Location: [facility] BEDSIDE PROCEDURE; Service: Office Machine Servicer Apprentice; Laterality: N/A; OTHER SURGICAL HISTORY 01/03/2015 ROBOTIC ASSISTED LAPAROSCOPIC COLON RESECTION - COLOANAL - Procedure: ROBOTIC ASSISTED LAP AROSCOPIC COLON RESECTION - COLOANAL; Surgeon: Saleem Shore MD; Location: [facility] MAIN O R; Service: General; Laterality: N/A; coloanal pull through OTHER SURGICAL HISTORY 01/03/2015 FLEXIBLE SIGMOIDOSCOPY - Procedure: SIGMOIDOSCOPY - FLEXIBLE; Surgeon: Saleem Shore MD; Location: [facility]IN OR; Service: General; Laterality: N/A; OTHER SURGICAL HISTORY 01/03/2015 SIGMOIDOSCOPY - RIGID - Procedure: SIGMOIDOSCOPY - RIGID; Surgeon: Saleem Shore MD; Location: [facility] OR; Service: General; Laterality: N/A; OTHER SURGICAL HISTORY 12/25/2014 FLEXIBLE SIGMOIDOSCOPY - Procedure: SIGMOIDOSCOPY - FLEXIBLE; Surgeon: Saleem Shore MD; Location: [facility] ENDOSCOPY; Service: General; Laterality: N/A; OTHER SURGICAL HISTORY 08/21/2014 FLEXIBLE SIGMOIDOSCOPY - Procedure: SIGMOIDOSCOPY - FLEXIBLE; Surgeon: Saleem Shore MD; Location: [facility] ENDOSCOPY; Service: General; Laterality: N/A; TOTAL HIP [...] with a full-thickness rectal pr olapse at [facility]. Discussed with him the findings and based [...] [address] | | | | | | [facility] [address] | | | | | | [place] [address] | | | | | | [phone] | | | | | | | | +--------+ + + + + | 02/21/ | Surgery | | Saleem Shore, | COLONOSCOPY | | 2018 | | | [address] | | | | | | [address] | | | | | | [place] [address] | | | | | | [phone] | | | | | | | | +--------+ + + + + documented as of this encounter Visit Diagnoses + + | Diagnosis | + + | Rectal prolapse - Primary | + + documented in this encounter"
--- OUTSIDE RECORDS SUMMARY | ~2019-02-11 | XMS | Encounter Summary ---
Demographics + + + | Address | [address] | | | [place] [address] | + + + | Home Phone | | + + + | Preferred Language | Unknown | + + + | Marital Status | Single | + + + | Taoist Affiliation | Unknown | + + + | Race | Unknown | + + + | Ethnic Group | Unknown | + + + Author + + + | Author | [facility] | | | and [place] | + + + | Organization | [facility] | | | [...] Team Providers + +------+ + | Care Ethnographic Materials Conservator Name | Role | Phone | + +------+ + PCP | Unavailable | + +------+ + Encounter Details +--------+ + + + + | Date | Type | Department | Care Team | Description | +--------+ + + + + | 03/18/ | Hospital | [facility] | Conversion | Attention to | | 2014 | Encounter | CENTER OUTPATIENT | Transaction, | ileostomy (HCC) | | | | WOUND CARE [address] | Provider Unknown | | | | | [facility] | [phone] | | | | | [address] | | | | | | [phone] | | | +--------+ + + + [...] Notes by Susan Horvath RN at 03/18/15 7356 Author: Susan Horvath RN Service: (none) Author Type: Registered Nurse Filed: 03/18/15 6136 Encounter Date: 03/18/2015 Status: Addendum Test Center Administrator: Susan Horvath RN (Registered Nurse) Related Notes: Original Note by Susan Horvath RN (Registered Nurse) filed at 03/18/15 4088 [facility] Service: Ostomy Care Consult Note SUBJECTIVE Patient Summary: Mexican speaking Patient arrives with next door neighbor [...] home with patient Supplies order faxed to [place] per patient request. I did spent 90 [...] [address] | | | | | | [place] [address] | | | | | | [phone] | | | | | | | | +--------+ + + + + | 02/21/ | Surgery | | Saleem Shore, | COLONOSCOPY | | 2019 | | | MD Rebecca BRUNO | | | | | | [address] | | | | | | [place] [address] | | | | | | [phone] | | | | | | | | +--------+ + + + + documented as of this encounter Visit Diagnoses + + | Diagnosis | + + | Attention to ileostomy (HCC) Attention to ileostomy | + + documented in this encounter
--- OUTSIDE RECORDS SUMMARY | ~2019-02-11 | XMS | Clinical Summary ---
Demographics + + + | Address | [address] | | | [place] [address] | + + + | Home Phone [...] + + + | Author | [facility] | | | and [place] | + + + | Organization | [facility] | | [...] Team Providers + +------+ + | Care Butcher Helper Name | Role | Phone | + [...] automatically from request for surgery | | [id number] | + + + + + | [...] injection 08/29/08 not helpful. L knee xray ([facility]) - | | chondrocalcinosis. Percocet seems to [...] [address] | | | | | | [place] [address] | | | | | | [phone] | | | | | | | | +--------+ + + + + | 02/21/ | Surgery | | Saleem Shore, | COLONOSCOPY | | 2019 | | | MD [address] | | | | | | [address] | | | | | | [place] [address] | | | | | | [phone] | | | | | | | [...] +--------+ +---------+--------+ | MEDICARE | MEDICA | [id number] | 05/27/19 | [phone] | | Medica | | | RE | | 14-Pre | 5 | | re | | | PART A | | sent | | | | | | AND B | | | | | | + +--------+ +--------+ +---------+--------+ | [employer]AN | MODA | [id number] | 02/08/ | [phone] | | Medica | | MEDICAID HMO [...] | | al/Fam | | 1951 | [phone] | [place] [address] | | | lee | | | 4 (Home) | | + +--------+ +--------+ + + Advance Directives + + + + + | Type | Date Recorded | Patient | Explanation | | | | Api Architect | | + + + + + | Power of | | | | | College Athletic Director | | | | + + + + + | Advance | | | | | Directive | | | | + + + + +
--- OUTSIDE RECORDS SUMMARY | ~2019-02-11 | XMS | Encounter Summary ---
Demographics + + + | Address | [address] | | | [place] [address] | + + + | Home Phone | | + + + | Preferred Language | Unknown | + + + | Marital Status | Single | + + + | Shinto Affiliation | Unknown | + + + [...] Team Providers + +------+ + | Care Ornamental Metal Erector Apprentice Name | Role | Phone | + +------+ + PCP | Unavailable | + +------+ + Encounter Details +--------+ + + + + | Date | Type | Department | Care Team | Description | +--------+ + + + + | 09/06/ | Hospital | [facility] | Conversion | Rectal cancer (HCC) | | 2014 | Encounter | CENTER CV INTRA OP | Transaction, | | | | | [address] | Provider Unknown | | | | | [place], [place] | [phone] | | | | | [address] | | | | | | [phone] | Wood Kaufman MD | | | | | | [address] | | | | | | [place], [place] | | | | | | [address] | | | | | | | [...] Note by Porsche Lane RN at 09/06/14 232 Author: Porsche Lane RN Service: (none) Author Type: Registered Nurse Filed: 09/06/14 1059 Date of Service: 09/06/141048 Status: Signed Tube Fitter: Porsche A Lane, RN (Registered Nurse) Pt tolerated procedure well. Mediport in place to right chest CDI. Pt able to tolerate juic e and crackers without difficulty. Discharge educated provided to patient via history card clerk se stout and pt verbalized understanding. Handout also provided. Pt to discharge to [facility] with friend to provide needed support. [...] [address] | | | | | | [place] [address] | | | | | | [phone] | | | | | | | | +--------+ + + + + | 02/21/ | Surgery | | Saleem Shore, | COLONOSCOPY | | 2018 | | | MD Rebecca BRUNO | | | | | | [address] | | | | | | [place] [address] | | | | | | [phone] | | | | | | | [...] injectable chest port. PRIMARY | | | PULP BEATER: Wood Kaufman MD, PhD, RPVI PROCEDURE: Informed [...] attached to the catheter tubing and the 6-Syriac Bard PowerPort | | | chest port [...] power injectable chest port. | | PRIMARY PULP BEATER: Wood Kaufman MD, PhD, RPVI PROCEDURE: Informed [...] attached to the catheter tubing and the 6-Syriac Bard PowerPort chest | | port was [...] | | | | | performed at [facility] [place] | | | | | | [address];[place], [place] | | | | | | [address] | | | | + + + [...] EXTERNAL LAB | | Testing performed at [facility] [place] [place] [address];[place] [address] MRSA PCR | | | NEGATIVE Testing performed at | | | [facility] [place] [place] [address];[place] [address] | | + + + + +---------+ [...]
--- OUTSIDE RECORDS SUMMARY | ~2019-02-11 | XMS | Encounter Summary ---
Demographics + + + | Address | [address] | | | [place] [address] | + + + | Home Phone | | + + + | Preferred Language | Unknown | + + + | Marital Status | Single | + + + | Yazidism Affiliation | Unknown | + + + | Race | Unknown | + + + | Ethnic Group | Unknown | + + + Author + + + | Author | [facility] | | | and [place] | + + + | Organization | [facility] | | [...] Team Providers + +------+ + | Care Uniform Room Attendant Name | Role | Phone | + +------+ + PCP | Unavailable | + +------+ + Encounter Details +--------+ + + + + | Date | Type | Department | Care Team | Description | +--------+ + + + + | 08/14/ | Hospital | [facility] | Conversion | | | 2014 | Encounter | CENTER P[facility]MIT | Transaction, | | | | | CLINIC [address] | Provider Unknown | | | | | [place], [place] | [phone] | | | | | [address] | | | | | | [phone] | | | +--------+ + + + [...] | | | | [place] [address] | | | | | | [phone] | | | | | | | | +--------+ + + + + | 02/21/ | Surgery | | Saleem Shore, | COLONOSCOPY | | 2019 | | | MD Rebecca BRUNO | | | | | | [address] | | | | | | [place] [address] | | | | | | [phone] | | | | | | | | +--------+ + + + + documented as of this encounter Visit Diagnoses Not on filedocumented in this encounter"
--- OUTSIDE RECORDS SUMMARY | ~2019-02-11 | XMS | Clinical Summary ---
Demographics + + + | Address | [address] | | | [place] [address] | + + + | Home Phone | | + + + | Preferred Language | Unknown | + + + | Marital Status | Single | + + + | Evangelical Affiliation | Unknown | + + + | Race | Unknown | + + + | Ethnic Group | Unknown | + + + Author + + + | Author | [facility] (Historical as of | | | 11-11-18) | + + + | Organization | [facility] (Historical as of | | | 11-11-18) [...] Team Providers + +------+ + | Care Ventilating Engineer Name | Role | Phone | + [...] +------+-------+ + | MEDICARE | MEDICA | [id number] | | | [address] | | | RE | | | | [place] [address] | | | IP-OP | | | | | + +--------+ +------+-------+ + | MEDICAID | EASTER | [id number] | | | [address] | | | N | | | | [place], [place] | | | [place] | | | | [address] | | | HEATER INSTALLER | | | | | + +--------+ [...] | | 1951 | [phone] | [place] [address] | | | lee | | | [phone] | | + +--------+ +--------+ + +
--- OUTSIDE RECORDS SUMMARY | ~2019-02-11 | XMS | Encounter Summary ---
Demographics + + + | Address | [address] | | | [place] [address] | + + + | Home Phone [...] Team Providers + +------+ + | Care Linux System Admin Name | Role | Phone | + +------+ + PCP | Unavailable | + +------+ + Encounter Details +--------+ + + + + | Date | Type | Department | Care Team | Description | +--------+ + + + + | 04/30/ | Hospital | [facility] | Saleem Shore, | Rectal cancer (HCC) | | 2015 | Encounter | MEDICAL [facility]ENTER MP | [address] | | | | | INTRA OP [address] | [address] | | | | | [address] [place], [place] | [place] [address] | | | | | [address] | [phone] | | | | | [phone] | | | +--------+ + + + [...] [address] | | | | | | [place] [address] | | | | | | [phone] | | | | | | | | +--------+ + + + + | 02/21/ | Surgery | | Saleem Shore, | COLONOSCOPY | | 2019 | | | MD [address] | | | | | | [address] | | | | | | [place] [address] | | | | | | [phone] | | | | | | | | +--------+ + + + + documented as of this encounter Visit Diagnoses + + | Diagnosis | + + | Rectal cancer (HCC) Malignant neoplasm of rectum | + + documented in this encounter"
--- OUTSIDE RECORDS SUMMARY | ~2019-02-11 | XMS | Encounter Summary ---
Demographics + + + | Address | [address] | | | [place] [address] | + + + | Home Phone | | + + + | Preferred Language | Unknown | + + + | Marital Status | Single | + + + | Uatsdin Affiliation | Unknown | + + + [...] Team Providers + +------+ + | Care Care Attendant Name | Role | Phone | [address] | | | | | [place], [place] | [place] [address] | | | | | [address] | [phone] | | | | | [phone] | | | +--------+ + + + [...] | | | | | [place] [address] | | | | | | [phone] | | | | | | | | +--------+ + + + + | 02/21/ | Surgery | | Saleem Shore, | COLONOSCOPY | | 2019 | | | MD Rebecca BRUNO | | | | | | [address] | | | | | | [place] [address] | | | | | | [phone] | | | | | | | | +--------+ + + + + documented as of this encounter Visit Diagnoses Not on filedocumented in this encounter"
--- OUTSIDE RECORDS SUMMARY | ~2019-02-11 | XMS | Encounter Summary ---
Demographics + + + | Address | [address] | | | [place] [address] | + + + | Home Phone | | + + + | Preferred Language | Unknown | + + + | Marital Status | Single | + + + | Judaism Affiliation | Unknown | + + + | Race | Unknown | + + + | Ethnic Group | Unknown | + + + Author + + + | Author | [facility] | | | and [place] | + + + | Organization | [facility] | | [...] Team Providers + +------+ + | Care Fabric Inspector Name | Role | Phone | + +------+ + PCP | Unavailable | + +------+ + Encounter Details +--------+ + + + + | Date | Type | Department | Care Team | Description | +--------+ + + + + | 03/18/ | Hospital | [facility] | Conversion | Attention to | | 2014 | Encounter | CENTER OUTPATIENT | Transaction, | ileostomy (HCC) | | | | WOUND CARE [address] | Provider Unknown | | | | | [facility] [place] | [phone] | | | | | [address] | | | | | | [phone] | | | +--------+ + + + [...] Notes by Susan Horvath RN at 03/18/15 9686 Author: Susan Horvath RN Service: (none) Author Type: Registered Nurse Filed: 03/18/15 2102 Encounter Date: 03/18/2015 Status: Addendum Hair Assistant: Susan Horvath RN (Registered Nurse) Related Notes: Original Note by Susan Horvath RN (Registered Nurse) filed at 03/18/15 6628 [facility] Service: Ostomy Care Consult Note SUBJECTIVE Patient Summary: Ukrainian speaking Patient arrives with next door neighbor [...] home with patient Supplies order faxed to [place] per patient request. I did spent 90 [...] if there are any additional questions. SUSAN HORVAHT RN, BSN, CWOCN Rishabh stanley in this [...] [address] | | | | | | [place] [address] | | | | | | [phone] | | | | | | | | +--------+ + + + + | 02/21/ | Surgery | | Saleem Shore, | COLONOSCOPY | | 2019 | | | MD Rebecca BRUNO | | | | | | [address] | | | | | | [place] [address] | | | | | | [phone] | | | | | | | | +--------+ + + + + documented as of this encounter Visit Diagnoses + + | Diagnosis | + + | Attention to ileostomy (HCC) Attention to ileostomy | + + documented in this encounter
--- OUTSIDE RECORDS SUMMARY | ~2019-02-11 | XMS | Encounter Summary ---
Demographics + + + | Address | [address] | | | [place] [address] | + + + | Home Phone | | + + + | Preferred Language | Unknown | + + + | Marital Status | Single | + + + | Pentecostal Affiliation | Unknown | + + + | Race | Unknown | + + + | Ethnic Group | Unknown | + + + Author + + + | Author | [facility] | | | and [place] | + + + | Organization | [facility] | [...] Team Providers + +------+ + | Care Plastic Cnc Machine Operator Name | Role | Phone [...] Provider Unknown | | | | | [facility] [place] | [phone] | | | | | [address] | | | | | | [phone] | | | +--------+ + + + [...] | | | | | | [place] [address] | | | | | | [phone] | | | | | | | | +--------+ + + + + | 02/21/ | Surgery | | Saleem Shore, | COLONOSCOPY | | 2018 | | | MD Rebecca BRUNO | | | | | | [address] | | | | | | [place] [address] | | | | | | [phone] | | | | | | | | +--------+ + + + + documented as of this encounter Visit Diagnoses Not on filedocumented in this encounter"
--- OUTSIDE RECORDS SUMMARY | ~2019-02-11 | XMS | Encounter Summary ---
Demographics + + + | Address | [address] | | | [place] [address] | + + + | Home Phone | | + + + | Preferred Language | Unknown | + + + | Marital Status | Single | + + + | Methodist Affiliation | Unknown | + + + | Race | Unknown | + + + | Ethnic Group | Unknown | + + + Author + + + | Author | [facility] | | | and [place] | + + + | Organization | [facility] | | | [...] Team Providers + +------+ + | Care Paint Mixer Machine Name | Role | Phone | [...] | | | [place] | [phone] | | | | | [address] | | | | | | [phone] | | | +--------+ + + + [...] [address] | | | | | | [place] [address] | | | | | | [phone] | | | | | | | | +--------+ + + + + | 02/21/ | Surgery | | Saleem Shore, | COLONOSCOPY | | 2019 | | | MD Fernandez [facility] | | | | | | [address] | | | | | | [place] [address] | | | | | | [phone] | | | | | | | [...]
--- OUTSIDE RECORDS SUMMARY | ~2019-02-11 | XMS | Encounter Summary ---
Demographics + + + | Address | [address] | | | [place] [address] | + + + | Home Phone | | + + + | Preferred Language | Unknown | + + + | Marital Status | Single | + + + | Tenriism Affiliation | Unknown | + + + | Race | Unknown | + + + | Ethnic Group | Unknown | + + + Author + + + | Author | [facility] | | | and [place] | + + + | Organization | [facility] | | | and [place] | + + + | Address | Unknown | + + + | Phone | Unavailable | + + + Support + + +---------+ + | Name | Relationship | Address | Phone | + + +---------+ + | Message Detailed | ECON | Unknown | | + + +---------+ + | Liborio Olviera ECON | Unknown | | + + +---------+ + Care Team Providers + +------+ + | Care Cytogenetics Laboratory Manager Name | Role | Phone | [address] | | | | | [place], [place] | [place] [address] | | | | | [address] | [phone] | | | | | [phone] | | | +--------+ + + + [...] | | | | | [place] [address] | | | | | | [phone] | | | | | | | | +--------+ + + + + | 02/21/ | Surgery | | Saleem Shore, | COLONOSCOPY | | 2019 | | | MD Rebecca BRUNO | | | | | | [address] | | | | | | [place] [address] | | | | | | [phone] | | | | | | | | +--------+ + + + + documented as of this encounter Visit Diagnoses Not on filedocumented in this encounter"
--- OUTSIDE RECORDS SUMMARY | ~2019-02-11 | XMS | Clinical Summary ---
Demographics + + + | Address | [address] | | | [place] [address] | + + + | Home Phone [...] + + + | Author | [facility] | | | and [place] | + + + | Organization | [facility] | | | [...] Team Providers + +------+ + | Care Waxer Operator Name | Role | Phone | [...] automatically from request for surgery | | [id number] | + + + + + | [...] injection 08/29/08 not helpful. L knee xray ([facility]) - | | chondrocalcinosis. Percocet seems to [...] [address] | | | | | | [place] [address] | | | | | | [phone] | | | | | | | | +--------+ + + + + | 02/21/ | Surgery | | Saleem Shore, | COLONOSCOPY | | 2019 | | | MD [address] | | | | | | [address] | | | | | | [place] [address] | | | | | | [phone] | | | | | | | [...] +--------+ +---------+--------+ | MEDICARE | MEDICA | [id number] | 05/27/19 | [phone] | | Medica | | | RE | | 14-Pre | 5 | | re | | | PART A | | sent | | | | | | AND B | | | | | | + +--------+ +--------+ +---------+--------+ | [employer]AN | MODA | [id number] | 02/08/ | [phone] | | Medica | | MEDICAID HMO [...] | | al/Fam | | 1951 | [phone] | [place] [address] | | | lee | | | 4 (Home) | | + +--------+ +--------+ + + Advance Directives + + + + + | Type | Date Recorded | Patient | Explanation | | | | Sheet Metal Assembler And Riveter | | + + + + + | Power of | | | | | Buffing Wheel Presser | | | | + + + + + | Advance | | | | | Directive | | | | + + + + +
--- OUTSIDE RECORDS SUMMARY | ~2019-02-11 | XMS | Encounter Summary ---
Demographics + + + | Address | [address] | | | [place] [address] | + + + | Home Phone | | + + + | Preferred Language | Unknown | + + + | Marital Status | Single | + + + | Latter Day Affiliation | Unknown | + + + [...] Team Providers + +------+ + | Care Electronics Specialist Name | Role | Phone | + +------+ + PCP | Unavailable | + +------+ + Encounter Details +--------+ + + + + | Date | Type | Department | Care Team | Description | +--------+ + + + + | 08/21/ | Hospital | [facility] | Saleem Shore, | Rectal cancer (HCC) | | 2014 | Encounter | MEDICAL [facility]ENTER [facility] | [address] | | | | | INTRA OP [address] | [address] | | | | | [address]VD [place], [place] | [place] [address] | | | | | [address] | [phone] | | | | | [phone] | | | +--------+ + + + [...] [address] | | | | | | [place] [address] | | | | | | [phone] | | | | | | | | +--------+ + + + + | 02/21/ | Surgery | | Saleem Shore, | COLONOSCOPY | | 2019 | | | MD [address] | | | | | | [address] | | | | | | [place] [address] | | | | | | [phone] | | | | | | | [...] case was reviewed by another member of [employer] | | | Pathology (BES) AMB:lac: [id number] [...] preparation was | | | [facility] | | | [place] [address] (Food Service Supervisor: Rahul | | | Anne Adamson; [facility]#: [id number]). Diagnostician: Asya Hernandez MD | | | [...]
--- OUTSIDE RECORDS SUMMARY | ~2019-02-11 | XMS | Encounter Summary ---
Demographics + + + | Address | [address] | | | [place] [address] | + + + | Home Phone [...] + + | Author | [facility] | | | and [place] | + + + | Organization | [facility] | | [...] Team Providers + +------+ + | Care Lockstitcher Name | Role | Phone | + +------+ + PCP | Unavailable | + +------+ + Encounter Details +--------+ + + + + | Date | Type | Department | Care Team | Description | +--------+ + + + + | 06/25/ | Hospital | [facility] | Conversion | | | 2016 | Encounter | [facility] | Transaction, | | | | | CLINIC [address] | Provider Unknown | | | | | [place] | [phone] | | | | | [address] | | | | | | [phone] | | | +--------+ + + + [...] [address] | | | | | | [place] [address] | | | | | | [phone] | | | | | | | | +--------+ + + + + | 02/21/ | Surgery | | Saleem Shore, | COLONOSCOPY | | 2019 | | | MD [address] | | | | | | [address] | | | | | | [place] [address] | | | | | | [phone] | | | | | | | [...] | | | | | | [place] [address] | | | | + + + + + + | RED CELL | 4.22Comment: Testing | 4.20 - 5.70 | EXTERNAL | | | COUNT | performed at [facility], [address] | M/uL | LAB | | | | [address], | | | | | | [place] [address] | | | | + + + + + + | Hgb | 13.6Comment: Testing | 13.2 - 17.0 | EXTERNAL | | | | performed at [facility], [address] | g/dL | LAB | | | | [address], | | | | | | [place] [address] | | | | + + + + + + | Hematocrit, | 39.2Comment: Testing | 39.0 - 50.0 % | EXTERNAL | | | POC | performed at [facility], [address] | | LAB | | | | [address], | | | | | | [place] [address] | | | | + + + + + + | MCV | 93.0Comment: Testing | 80.0 - 100.0 fl | EXTERNAL | | | | performed at [facility], [address] | | LAB | | | | [address], | | | | | | [place] [address] | | | | + + + + + + | MCH | 32.4Comment: Testing | 27.0 - 34.0 pg | EXTERNAL | | | | performed at [facility], [address] | | LAB | | | | [address], | | | | | | [place] [address] | | | | + + + + + + | MCHC | 34.8Comment: Testing | 32.0 - 35.5 | EXTERNAL | | | | performed at [facility], [address] | g/dL | LAB | | | | [address], | | | | | | [place] [address] | | | | + + + + + + | RDW-CV | 44.2Comment: Testing | 37 - 53 fl | EXTERNAL | | | | performed at [facility], [address] | | LAB | | | | [address], | | | | | | [place] [address] | | | | + + + + + + | Platelet | 191Comment: Testing | 150 - 400 K/uL | EXTERNAL | | | Count | performed at [facility], [address] | | LAB | | | Plasma | [address], | | | | | | [place] [address] | | | | + + + + + + | MPV | 8.5Comment: Testing | fl | EXTERNAL | | | | performed at [facility], [address] | | LAB | | | | [address], | | | | | | [place] [address] | | | | + + + + + + | Differentia | AUTOMATEDComment: | | EXTERNAL | | | l Type | Testing performed at | | LAB | | | | [facility], [address] | | | | | | [place] | | | | | | [address] | | | | + + + + + + | % Segmented | 58.82Comment: Testing | % | EXTERNAL | | | | performed at [facility], [address] | | LAB | | | Neutrophils | [address] [place], | | | | | | [place] [address] | | | | + + + + + + | % | 29.12Comment: Testing | % | EXTERNAL | | | Lymphocytes | performed at [facility], [address] | | LAB | | | | [address], | | | | | | [place] [address] | | | | + + + + + + | % Monocytes | 8.35Comment: Testing | % | EXTERNAL | | | | performed at [facility], [address] | | LAB | | | | [address], | | | | | | [place] [address] | | | | + + + + + + | % | 2.36Comment: Testing | % | EXTERNAL | | | Eosinophils | performed at [facility], [address] | | LAB | | | | [address], | | | | | | [place] [address] | | | | + + + + + + | % Basophils | 1.35Comment: Testing | % | EXTERNAL | | | | performed at [facility], [address] | | LAB | | | | [address], | | | | | | [place] [address] | | | | + + + + + + | Absolute | 2.71Comment: Testing | 1.90 - 7.40 | EXTERNAL | | | Segmented | performed at [facility], [address] | K/uL | LAB | | | Neutrophils | [address], | | | | | | [place] [address] | | | | + + + + + + | Absolute | 1.34Comment: Testing | 1.00 - 3.90 | EXTERNAL | | | Lymphocytes | performed at [facility], [address] | K/uL | LAB | | | | [address], | | | | | | [place] [address] | | | | + + + + + + | Absolute | 0.39Comment: Testing | 0.00 - 0.80 | EXTERNAL | | | Monocytes | performed at [facility], [address] | K/uL | LAB | | | | [address], | | | | | | [place] [address] | | | | + + + + + + | Absolute | 0.11Comment: Testing | 0.00 - 0.50 | EXTERNAL | | | Eosinophils | performed at [facility], [address] | K/uL | LAB | | | | [address], | | | | | | [place] [address] | | | | + + + + + + | Absolute | 0.06Comment: Testing | 0.00 - 0.10 | EXTERNAL | | | Basophils | performed at [facility], [address] | K/uL | LAB | | | | [place], | | | | | | [place] [address] | | | | + + + [...] | | | | [place] [address] | | | | + + + + + + | K | 4.1Comment: Testing | 3.5 - 4.9 | EXTERNAL | | | | performed at [facility], [address] | mmol/L | LAB | | | | [place], | | | | | | [place] [address] | | | | + + + + + + | Cl | 104Comment: Testing | 99 - 109 mmol/L | EXTERNAL | | | | performed at [facility], [address] | | LAB | | | | [address], | | | | | | [place] [address] | | | | + + + + + + | CO2 | 26Comment: Testing | 23 - 32 mmol/L | EXTERNAL | | | | performed at [facility], [address] | | LAB | | | | [address], | | | | | | [place] [address] | | | | + + + + + + | Anion Gap | 9Comment: Testing | 5 - 20 mmol/L | EXTERNAL | | | | performed at [facility], [address] | | LAB | | | | [address], | | | | | | [place] [address] | | | | + + + + + + | Glucose, | 86Comment: Testing | 65 - 99 mg/dL | EXTERNAL | | | Fasting | performed at [facility], [address] | | LAB | | | | [address], | | | | | | [place] [address] | | | | + + + + + + | BUN | 9Comment: Testing | 8 - 25 mg/dL | EXTERNAL | | | | performed at [facility], [address] | | LAB | | | | [address], | | | | | | [place] [address] | | | | + + + + + + | Creatinine | 0.74Comment: Testing | 0.70 - 1.30 | EXTERNAL | | | | performed at [facility], [address] | mg/dL | LAB | | | | [address], | | | | | | [place] [address] | | | | + + + + + + | BUN/Creatin | 12Comment: Testing | | EXTERNAL | | | ine Ratio | performed at [facility], [address] | | LAB | | | | [address], | | | | | | [place] [address] | | | | + + + + + + | Calcium | 9.1Comment: Testing | 8.5 - 10.5 | EXTERNAL | | | | performed at [facility], [address] | mg/dL | LAB | | | | [place], | | | | | | [place] [address] | | | | + + + + + + | Protein, | 7.3Comment: Testing | 6.3 - 8.2 g/dL | EXTERNAL | | | Total | performed at [facility], [address] | | LAB | | | | [place], | | | | | | [place] [address] | | | | + + + + + + | Albumin | 3.7Comment: Testing | 3.3 - 4.8 g/dL | EXTERNAL | | | | performed at [facility], [address] | | LAB | | | | [address], | | | | | | [place] [address] | | | | + + + + + + | Globulin | 3.6Comment: Testing | 1.3 - 4.9 g/dL | EXTERNAL | | | | performed at [facility], [address] | | LAB | | | | [address], | | | | | | [place] [address] | | | | + + + + + + | A/G Ratio | 1.0Comment: Testing | 1.0 - 2.4 | EXTERNAL | | | | performed at [facility], [address] | | LAB | | | | [address], | | | | | | [place] [address] | | | | + + + + + + | Bilirubin | 0.6Comment: Testing | 0.1 - 1.5 mg/dL | EXTERNAL | | | Total | performed at [facility], [address] | | LAB | | | | [address], | | | | | | [place] [address] | | | | + + + + + + | ALP, | 116 (H)Comment: Testing | 35 - 115 U/L | EXTERNAL | | | External | performed at [facility], [address] | | LAB | | | | [place], | | | | | | [place] [address] | | | | + + + + + + | AST | 15Comment: Testing | 10 - 45 U/L | EXTERNAL | | | | performed at [facility], [address] | | LAB | | | | [address], | | | | | | [place] [address] | | | | + + + + + + | ALT | 14Comment: Testing | 10 - 65 U/L | EXTERNAL | | | | performed at [facility], [address] | | LAB | | | | [address], | | | | | | [place] [address] | | | | + + + [...] [place], | | | | | | [place] [address] | | | | + + + [...]
--- OUTSIDE RECORDS SUMMARY | ~2019-02-11 | XMS | Encounter Summary ---
Demographics + + + | Address | [address] | | | [place] [address] | + + + | Home Phone | | + + + | Preferred Language | Unknown | + + + | Marital Status | Single | + + + | Mormon Affiliation | Unknown | + + + | Race | Unknown | + + + | Ethnic Group | Unknown | + + + Author + + + | Author | [facility] | | | and [place] | + + + | Organization | [facility] | | | and [place] | + + + | Address | Unknown | + + + | Phone | Unavailable | + + + Support + + +---------+ + | Name | Relationship | Address | Phone | + + +---------+ + | Message Detailed | ECON | Unknown | | + + +---------+ + | Liborio Escoabr | ECON | Unknown | | + + +---------+ + Care Team Providers + +------+ + | Care Gambling Floor Supervisor Name | Role | Phone | [...] | | | [place] | [phone] | | | | | [address] | | | | | | [phone] | | | +--------+ + + + [...] [address] | | | | | | [place] [address] | | | | | | [phone] | | | | | | | | +--------+ + + + + | 02/21/ | Surgery | | Saleem Shore, | COLONOSCOPY | | 2019 | | | [address] [facility] | | | | | | [address] | | | | | | [place] [address] | | | | | | [phone] | | | | | | | [...]
--- OUTSIDE RECORDS SUMMARY | ~2019-02-11 | XMS | Encounter Summary ---
Demographics + + + | Address | [address] | | | [place] [address] | + + + | Home Phone | | + + + | Preferred Language | Unknown | + + + | Marital Status | Single | + + + | Moravian Affiliation | Unknown | + + + | Race | Unknown | + + + | Ethnic Group | Unknown | + + + Author + + + | Author | [facility] | | | and [place] | + + + | Organization | [facility] | | | [...] Team Providers + +------+ + | Care Arch Support Technician Name | Role | Phone | + +------+ + PCP | Unavailable | + +------+ + Encounter Details +--------+ + + + + | Date | Type | Department | Care Team | Description | +--------+ + + + + | 04/30/ | Hospital | [facility] | Saleem Shore, | Rectal cancer (HCC) | | 2015 | Encounter | [facility] | [address] | | | | | INTRA [address] | [address] | | | | | [address]VD [place], [place] | [place] [address] | | | | | [address] | [phone] | | | | | [phone] | | | +--------+ + + + [...] [address] | | | | | | [place] [address] | | | | | | [phone] | | | | | | | | +--------+ + + + + | 02/21/ | Surgery | | Saleem Shore, | COLONOSCOPY | | 2019 | | | MD [address] | | | | | | [address] | | | | | | [place] [address] | | | | | | [phone] | | | | | | | | +--------+ + + + + documented as of this encounter Visit Diagnoses + + | Diagnosis | + + | Rectal cancer (HCC) Malignant neoplasm of rectum | + + documented in this encounter"
--- OUTSIDE RECORDS SUMMARY | ~2019-02-11 | XMS | Encounter Summary ---
Demographics + + + | Address | [address] | | | [place] [address] | + + + | Home Phone | | + + + | Preferred Language | Unknown | + + + | Marital Status | Single | + + + | Methodist Affiliation | Unknown | + + + | Race | Unknown | + + + | Ethnic Group | Unknown | + + + Author + + + | Author | [facility] | | | and [place] | + + + | Organization | [facility] | | [...] Team Providers + +------+ + | Care Obstetric Assistant Name | Role | Phone | [...] + + | 12/14/ | Telephone | [facility] | Saleem Shore Bro, | Referral | | 2019 | | GENERAL SURGERY [address] | MD [address] | | | | | [address] | [facility] [address] | | | | | [place], [place] | [place] [address] | | | | | [address] | [phone] | | | | | [phone] | | | +--------+ + + + [...] [address] | | | | | | [place] [address] | | | | | | [phone] | | | | | | | | +--------+ + + + + | 02/21/ | Surgery | | Saleem Shore, | COLONOSCOPY | | 2018 | | | MD [address] | | | | | | [address] | | | | | | [place] [address] | | | | | | [phone] | | | | | | | | +--------+ + + + + documented as of this encounter Visit Diagnoses Not on filedocumented in this encounter"
--- OUTSIDE RECORDS SUMMARY | ~2019-02-11 | XMS | Encounter Summary ---
Demographics + + + | Address | [address] | | | [place] [address] | + + + | Home Phone | | + + + | Preferred Language | Unknown | + + + | Marital Status | Single | + + + | Lutheran Affiliation | Unknown | + + + | Race | Unknown | + + + | Ethnic Group | Unknown | + + + Author + + + | Author | [facility] | | | and [place] | + + + | Organization | [facility] | | | [...] Team Providers + +------+ + | Care Cotton Dispatcher Name | Role | Phone | + [...] | | | [place] | [phone] | | | | | [address] | | | | | | [phone] | | | +--------+ + + + [...] [address] | | | | | | [place] [address] | | | | | | [phone] | | | | | | | | +--------+ + + + + | 02/21/ | Surgery | | Saleem Shore, | COLONOSCOPY | | 2019 | | | MD [facility] [facility] | | | | | | [address] | | | | | | [place] [address] | | | | | | [phone] | | | | | | | [...]
--- OUTSIDE RECORDS SUMMARY | ~2019-02-11 | XMS | Encounter Summary ---
Demographics + + + | Address | [address] | | | [place] [address] | + + + | Home Phone [...] + + + | Author | [facility] | | | and [place] | + + + | Organization | [facility] | | | [...] Team Providers + +------+ + | Care Lead Front End Developer Name | Role | Phone | [...] + + | 12/14/ | Telephone | [facility] | Saleem Shore Bro, | Referral | | 2019 | | GENERAL SURGERY [address] | MD [address] | | | | | [address] | [facility] [address] | | | | | [place], [place] | [place] [address] | | | | | [address] | [phone] | | | | | [phone] | | | +--------+ + + + [...] | | | | | | [place] [address] | | | | | | [phone] | | | | | | | | +--------+ + + + + | 02/21/ | Surgery | | Saleem Shore, | COLONOSCOPY | | 2018 | | | MD Rebecca [address]UN[address] | | | | | | [address] | | | | | | [place] [address] | | | | | | [phone] | | | | | | | | +--------+ + + + + documented as of this encounter Visit Diagnoses Not on filedocumented in this encounter"
--- OUTSIDE RECORDS SUMMARY | ~2019-02-11 | XMS | Encounter Summary ---
Demographics + + + | Address | [address] | | | [place] [address] | + + + | Home Phone | | + + + | Preferred Language | Unknown | + + + | Marital Status | Single | + + + | Rastafarian Affiliation | Unknown | + + + | Race | Unknown | + + + | Ethnic Group | Unknown | + + + Author + + + | Author | [facility] | | | and [place] | + + + | Organization | [facility] | | | [...] Team Providers + +------+ + | Care Freight And Passenger Agent Name | Role | Phone | + +------+ + | Kris Hernandez | PCP | | + +------+ + Encounter Details +--------+ + + + + | Date | Type | Department | Care Team | Description | +--------+ + + + + | 01/19/ | Orders Only | [facility] | Collin Grimm | | | 2018 | | GENERAL SURGERY [address] | B, RN | | | | | [address] | | | | | | [place], [place] | | | | | | [address] | | | | | | [phone] | | | +--------+ + + + [...] 10:57 AM PDTRx needs to faxed to [place] documented in thi s encounter Plan of [...] | | | | [place] [address] | | | | | | [phone] | | | | | | | | +--------+ + + + + | 02/21/ | Surgery | | Saleem Shore, | COLONOSCOPY | | 2018 | | | MD Rebecca BRUNO | | | | | | [address] | | | | | | [place] [address] | | | | | | [phone] | | | | | | | | +--------+ + + + + documented as of this encounter Visit Diagnoses Not on filedocumented in this encounter"
--- OUTSIDE RECORDS SUMMARY | ~2019-02-11 | XMS | Encounter Summary ---
Demographics + + + | Address | [address] | | | [place] [address] | + + + | Home Phone | | + + + | Preferred Language | Unknown | + + + | Marital Status | Single | + + + | Presybeterian Affiliation | Unknown | + + + | Race | Unknown | + + + | Ethnic Group | Unknown | + + + Author + + + | Author | [facility] | | | and [place] | + + + | Organization | [facility] | | [...] Team Providers + +------+ + | Care Horticulture Professor Name | Role | Phone | + +------+ + PCP | Unavailable | + +------+ + Encounter Details +--------+ + + + + | Date | Type | Department | Care Team | Description | +--------+ + + + + | 04/30/ | Hospital | [facility] | Saleem Shore, | Rectal cancer (HCC) | | 2015 | Encounter | [facility] | [address] | | | | | [address] | [address] | | | | | BLVD [place], [place] | [place] [address] | | | | | [address] | [phone] | | | | | [phone] | | | +--------+ + + + [...] [address] | | | | | | [place] [address] | | | | | | [phone] | | | | | | | | +--------+ + + + + | 02/21/ | Surgery | | Saleem Shore, | COLONOSCOPY | | 2019 | | | MD [address] | | | | | | [address] | | | | | | [place] [address] | | | | | | [phone] | | | | | | | | +--------+ + + + + documented as of this encounter Visit Diagnoses + + | Diagnosis | + + | Rectal cancer (HCC) Malignant neoplasm of rectum | + + documented in this encounter"
--- OUTSIDE RECORDS SUMMARY | ~2019-02-11 | XMS | Encounter Summary ---
Demographics + + + | Address | [address] | | | [place] [address] | + + + | Home Phone [...] Team Providers + +------+ + | Care Choreography Director Name | Role | Phone | + +------+ + | Kris Hernandez | PCP | | + +------+ + Encounter Details +--------+ + + + + | Date | Type | Department | Care Team | Description | +--------+ + + + + | 01/19/ | Orders Only | [facility] | Collin Grimm | | | 2018 | | GENERAL SURGERY [address] | B, RN | | | | | [address] | | | | | | [place], [place] | | | | | | [address] | | | | | | [phone] | | | +--------+ + + + [...] 10:57 AM PDTRx needs to faxed to [place] documented in thi s encounter Plan of [...] | | | | [place] [address] | | | | | | [phone] | | | | | | | | +--------+ + + + + | 02/21/ | Surgery | | Saleem Shore, | COLONOSCOPY | | 2018 | | | MD Rebecca BRUNO | | | | | | [address] | | | | | | [place] [address] | | | | | | [phone] | | | | | | | | +--------+ + + + + documented as of this encounter Visit Diagnoses Not on filedocumented in this encounter"
--- OUTSIDE RECORDS SUMMARY | ~2019-02-11 | XMS | Encounter Summary ---
Demographics + + + | Address | [address] | | | [place] [address] | + + + | Home Phone [...] Team Providers + +------+ + | Care Manager Banquet Name | Role | Phone | + +------+ + PCP | Unavailable | + +------+ + Encounter Details +--------+ + + + + | Date | Type | Department | Care Team | Description | +--------+ + + + + | 06/09/ | [facility] | [facility] | Edy La | Enderor; Postictal | | 2019 - | Encounter | [facility] | MD Tom [address] | state (HCC); Acute | | | | CARE FLOOR [address] [place], [place] | respiratory failure | | 06/22/ | | [address] | [address] | with hypoxia (HCC); | | 2019 | | [place], [place] | | Altered mental | | | | [address] | | status, unspecified | | | | [phone] | | altered mental | | | [...] Service: Hospitalist Author Type: Physician Filed: 06/22/18 1804 Date of Service: 06/22/18 1025 Status: Signed Maintenance Helper Utility Engineer: Nba Cr MD (Physician) Patient: Jose Eaton [...] was admitted to ICU on transfer from [facility] 06/09/2018 with altered mental status with the patient's having last drink on 06/07/2018, as well as seizures at [facility], patient was intubated on admission and was [...] Comments: Send report to Dr. Pederson at [facility] neurosurgery Order Specific Question Answer Comments Reason for Exam: follow up brain mass Is MRI exam to be done with sedation/ anesthesia? No What is the preferred imaging location? [facility] Referral to Speech Therapy Referral Priority: Routine [...] speech Kris Hernandez PA-C [address] [place] [address] Schedule an appointment as soon as possible for a visit in 3 day(s) Wilner Pederson DO [address] [place] [address] Follow up in 3 month(s) Jazmyne Hairston MD [address] [place] [address] Call in 1 month Medication List [...] MG tablet thiamine 100 MG tablet Disposition: [facility] Condition: Stable Code Status: Prior Discharge medications reconciliation was completed by myself. . Case management who was Solomon Islander-speaking explained discharge plan and medications to the [...] (none) Author Type: Registered Nurse Filed: 06/22/18 0183 Date of Service: 06/22/181024 Status: Signed Maintenance Helper Utility Engineer: Anne Marie Greenfield RN (Registered Nurse) Disposition: [facility] Transportation: [place] [employer]. All orders, signed AVS, and prescriptions have been faxed, confirmed received by familia Greer emissions repair technician of [facility]. All DC paperwork completed Patient and family in agreement with discharge plan Medicare important message (N/A): ANNE MARIE GREENFIELD, TIMOTEO,. onver alex Transaction, Provider Unknown - 06/22/2018 10:24 AM PDT Nurse Progress Note by Opal Gagnon RN at 06/22/18 1024 Author: Opal Gagnon RN Service: (none) Author Type: Registered Nurse Filed: 06/22/18 1025 Date of Service: 06/22/18 1024 Status: Signed Maintenance Helper Utility Engineer: Opal Gagnon RN (Registered Nurse) Pt discharged via [facility] transportation at this time. onver alex Transaction, Provider Unknown - 06/22/2018 10:00 AM PDT Nurse Progress Note by Opal Gagnon RN at 06/22/18 1000 Author: Opal Gagnon RN Service: (none) Author Type: Registered Nurse Filed: 06/22/18 1007 Date of Service: 06/22/18 1000 Status: Signed Maintenance Helper Utility Engineer: Opal Gagnon RN (Registered Nurse) Report called to Chelle MAHMOOD at [facility] in [place] for transfer of care to facility. No questions or concerns at this time. onver alex Transaction, Provider Unknown - 06/22/2018 9:58 AM PDT Case Management by Paula Lubin RN at 06/22/18 0958 Author: Paula Lubin RN Service: (none) Author Type: Registered Nurse Filed: 06/22/1858 Date of Service: 06/22/1858 Status: Signed Maintenance Helper Utility Engineer: Paula Lubin RN (Registered Nurse) Notified pt's brother Gustabo that pt is discharging at 1000. No questions or concerns. [place] onver alex Transaction, Provider Unknown - 06/22/2018 8:41 AM PDT Case Management by Anne Marie Greenfield RN at 06/22/18 0841 Author: Anne Marie Greenfield RN Service: (none) Author Type: Registered Nurse Filed: 06/22/18 1001 Date of Service: 06/22/18840 Status: Signed Maintenance Helper Utility Engineer: Anne Marie Greenfield RN (Registered Nurse) Discharge planning: CM placed call to [facility] Transportation [phone] to schedule pt transport to [facility] [...] 06/22/18619 Date of Service: 06/22/18618 Status: Signed Maintenance Helper Utility Engineer: Ebony Olivares RN (Registered Nurse) Pt slept off and on throughout shift. No acute changes. Continued to refuse IV placement an d tele leads. INCx2. When asked if he could tell this nurse where he is at he would state [place] "you insult me the questions you ask me." End of shift review complete. onver alex Transaction, Provider Unknown - 06/21/2018 6:34 PM PDT Nurse Progress Note by David Harmon RN at 06/21/181833 Author: David Harmon RN Service: (none) Author Type: Registered Nurse Filed: 06/21/181837 Date of Service: 06/21/181833 Status: Signed Maintenance Helper Utility Engineer: David Harmon RN (Registered Nurse) Pt will likely discharge tomorrow to [facility]. Pt had 2 bouts of incontinence in [...] 06/21/181643 Date of Service: 06/21/181642 Status: Signed Maintenance Helper Utility Engineer: Areli Zuluaga RN (Registered Nurse) Discharge Plan: [facility] to accept tomorrow. Meghan would like a [...] 06/21/181613 Date of Service: 06/21/181613 Status: Signed Maintenance Helper Utility Engineer: Saritha Brown RD (Registered Dietitian) 06/21/18 1600 [...] Brown RD, CD ovarr Lucía david MA, CCC-SENIOR ASP NET DEVELOPER - 06/21/2018 2:35 PM PDTFormatting of this note might be differ ent from the original. Therapy Progress Note by Lucía Randle MA CCC-SENIOR ASP NET DEVELOPER at 06/21/18 7633 Author: Lucía Randle MA CCC-SENIOR ASP NET DEVELOPER Service: (none) Author Type: Speech and Language Pathologist Filed: 06/21/18 1504 Date of Service: 06/21/18 1435 Status: Signed Maintenance Helper Utility Engineer: Lucía Randle MA CCC-SENIOR ASP NET DEVELOPER (Speech and Language Pathologist) BEDSIDE SWALLOW SENIOR ASP NET DEVELOPER Last Visit SENIOR ASP NET DEVELOPER Received On: 06/21/18 Requires SENIOR ASP NET DEVELOPER Follow Up: No Recommendations Liquids Consistency Recommendations: [...] soft breads. Liquids: Thin liquids: regular consistency SENIOR ASP NET DEVELOPER Ready for Discharge: Yes Swallowing Treatment: Yes [...] Management by Paula Lubin RN at 06/21/18 6016 Author: Paula Lubin RN Service: (none) Author Type: Registered Nurse Filed: 06/21/18 0146 Date of Service: 06/21/181427 Status: Addendum Maintenance Helper Utility Engineer: Paula Lubin RN (Registered Nurse) Related Notes: Original Note by Paula Lubin RN (Registered Nurse) filed at 06/21/18 143 Tc to pt's son, Byron, [phone] re d/c planning. Byron agrees to sending pt to [facility] not interested in obtaining address/phone number for facility, stated he would "ask frie nds where it's located". Tc to pt's brotherGustabo, to update on d/c to [facility], no questions or con cerns. Transport arranged for at 0000 via [employer] Nba Mantilla Kyler M, MD - 06/21/2018 8:34 AM PDTFormatting of this note might be different f rom the original. Progress Notes by Nba Cr MD at 06/21/18833 Author: Nba Cr MD Service: Hospitalist Author Type: Physician Filed: 06/21/18 1708 Date of Service: 06/21/18833 Status: Signed Maintenance Helper Utility Engineer: Nba Cr MD (Physician) [facility] Service: Hospitalist Progress Note Hospital Day: LOS: 12 days SUBJECTIVE Patient Summary: 68-year-old Solomon Islander-speaking gentleman with a history of rectal canc [...] and examined at bedside on follow-up with [facility] certifjae d operating systems programmer, today the patient is oriented to person, [...] Lovenox discontinued in anticipation for surgery. Through [facility] certified operating systems programmer I explained radiology and lab findings and [...] manage ment as well as Computerized Physician Licensed Psychiatric Technician. Dictation software, [employer], used which may contain error for similar [...] 06/21/1834 Date of Service: 06/21/18531 Status: Signed Maintenance Helper Utility Engineer: Joe Bolstad, RN (Registered Nurse) Pt's q4h [...] 06/20/181831 Date of Service: 06/20/181829 Status: Signed Maintenance Helper Utility Engineer: David Harmon RN (Registered Nurse) Pt had [...] Nba Strong PT at 06/20/18 1033 Author: Nab Strong PT Service: (none) Author Type: Physical Therapist Filed: 06/20/181813 Date of Service: 06/20/18 1033 Status: Signed Maintenance Helper Utility Engineer: Nba Strong PT (Physical Therapist) 06/20/18 1033 [...] Date of Service: 06/20/18 1011 Status: Addendum Maintenance Helper Utility Engineer: Anne Marie Greenfield RN (Registered Nurse) Related Notes: Original Note by Anne Marie Greenfield RN (Registered Nurse) filed at 06/20/18 1537 Discharge planning: Message left for Nolberto, coordinator of [facility] [phone], to on referral se nt. Message also left to Zoey, admission coordinator of [facility] [phone]. 1430: Message received from Nolberto, admission coordinator of [facility], jozef is not accepted at [facility] [place]. 1500: Pt can be transferred to [facility] when he is medically ready for transf er. onver alex Transaction, Provider Unknown - 06/20/2018 9:45 AM PDT Therapy Progress Note by GABRIELLA Nguyen/Ada at 06/20/18 0945 Author: IRAM Nguyen Service: (none) Author Type: Occupational Therapist Filed: 06/20/18 1017 Date of Service: 06/20/18 0945 Status: Signed Maintenance Helper Utility Engineer: IRAM Nguyen (Occupational Therapist) OCCUPATIONAL THERAPY REASSESSMENT OT Received On: 06/20/18 Reason for Treatment: Other (comment) (Seizures, AMS, chronic strokes, brain mass) Requires OT Follow Up: Yes OT Eval/Reassessment Date: 06/20/18 (OT evaluation completed) Assistance Required: 1 person Chronic Specialist Needed: Yes, Chronic Specialist present Family/Caregiver Present: No Recommendation: SNF [...] reintegration Follow up by: [] OT [] MANUFACTURING ASSEMBLER [x] Either Precautions Other Precautions: Fall precautions, [...] Notes by Nba Cr MD at 06/20/18 1782 Author: Nba Cr MD Service: Hospitalist Author Type: Physician Filed: 06/20/18 1832 Date of Service: 06/20/18 0855 Status: Signed Maintenance Helper Utility Engineer: Nba Cr MD (Physician) [facility] Service: Hospitalist Progress Note Hospital Day: LOS: 11 days SUBJECTIVE Patient Summary: 68-year-old Solomon Islander-speaking gentleman with a history of rectal canc [...] and examined at bedside on follow-up with [facility] certifie d operating systems programmer, the patient is oriented to place, he [...] Lovenox discontinued in anticipation for surgery. Through [facility] certified operating systems programmer I explained radiology and lab findings and [...] and management as well as Computerized Physician Licensed Psychiatric Technician. Dictation software, [employer], used which may contain error for similar [...] Note by Wilner Gambino RN at 06/20/18 0402 Author: Wilner Gambino RN Service: (none) Author Type: Registered Nurse Filed: 06/20/18 0618 Date of Service: 06/20/18 0409 Status: Signed Maintenance Helper Utility Engineer: Wilner Gambino RN (Registered Nurse) End of [...] 06/19/181749 Date of Service: 06/19/181748 Status: Signed Maintenance Helper Utility Engineer: Mulu Vazquez RN (Registered Nurse) Pt has [...] Date of Service: 06/19/18 1252 Status: Addendum Maintenance Helper Utility Engineer: Anne Marie Greenfield RN (Registered Nurse) Related Notes: Original Note by Anne Marie Greenfield RN (Registered Nurse) filed at 06/19/18 1255 Discharge planning: Message left for pt's son Byron Eaton [phone], awaiting his call back to disc uss PT's recommendation. PATIENT SITTER FREE FROM 06/18. 1400: Referrals sent to Emil Farah and Nah[facility] Hutchison. Rosie León MD - 06/19/2018 11:43 AM PDTFormatting of this note might be different from t he original. Progress Notes by Rosie Lindsay MD at 06/19/18 1142 Author: Rosie Lindsay MD Service: Hospitalist Author Type: Physician Filed: 06/19/18 1403 Date of Service: 06/19/18 7281 Status: Addendum Maintenance Helper Utility Engineer: Rosie Lindsay MD (Physician) Related Notes: Original Note by Rosie Lindsay MD (Physician) filed at 06/19/18 1407 [facility] Service: Hospitalist Progress Note Hospital Day: LOS: 10 days SUBJECTIVE Patient Summary: 68-year-old [place] Islander-speaking gentleman with a history of rectal canc [...] He thinks th at [facility] [place] [employer]. Scheduled Medications levETIRAcetam 500 mg Oral BID [...] PM This entry has been created using [employer] Speech Recognition software and [employer]. The entry has been reviewed and there may still exist sound alike word errors. onversion Trans action, Provider Unknown - 06/19/2018 5:51 AM PDT Nurse Progress Note by Tae Wahl RN at 06/19/18 0551 Author: Tae Wahl RN Service: (none) Author Type: Registered Nurse Filed: 06/19/1851 Date of Service: 06/19/18550 Status: Signed Maintenance Helper Utility Engineer: Tae Wahl RN (Registered Nurse) Chart check complete onver alex Transaction, Provider Unknown - 06/18/2018 4:13 PM PDT Nurse Progress Note by Ignacio Ludwig RN at 06/18/18 9337 Author: Ignacio Ludwig RN Service: (none) Author Type: Registered Nurse Filed: 06/18/18 161 Date of Service: 06/18/181612 Status: Signed Maintenance Helper Utility Engineer: Ignacio Ludwig RN (Registered Nurse) Chart check complete. illon nieves, Rosie Rodriguez MD - 06/18/2018 10:41 AM PDTFormatting of this note might be different from t he original. Progress Notes by Rosie Lindsay MD at 06/18/18 1041 Author: Rosie Lindsay MD Service: Hospitalist Author Type: Physician Filed: 06/18/18 1354 Date of Service: 06/18/18 104 Status: Signed Maintenance Helper Utility Engineer: Rosie Lindsay MD (Physician) [facility] Service: Hospitalist Progress Note Hospital Day: LOS: 9 days SUBJECTIVE Patient Summary: 68-year-old [place] Islander-speaking gentleman with a history of rectal canc [...] with patient's son and family with a whipper beater all questi ons answered. Disposition: Inpatient Code Status: Full Code Rosei Lindsay MD 06/18/2018 10:41 AM This entry has been created using [employer] Speech Recognition software and [employer]. The entry has been reviewed and there may still exist sound alike word errors. ntonella Randle ra, MA, CCC-SENIOR ASP NET DEVELOPER - 06/17/2018 3:37 PM PDTFormatting of this note might be different from t he original. Therapy Progress Note by Lucía Randle MA CCC-SENIOR ASP NET DEVELOPER at 06/17/18 5846 Author: Lucía Randle MA CCC-SENIOR ASP NET DEVELOPER Service: (none) Author Type: Speech and Language Pathologist Filed: 06/17/18 8000 Date of Service: 06/17/181536 Status: Signed Maintenance Helper Utility Engineer: Lucía Randle MA CCC-SENIOR ASP NET DEVELOPER (Speech and Language Pathologist) BEDSIDE SWALLOW SENIOR ASP NET DEVELOPER Last Visit SENIOR ASP NET DEVELOPER Received On: 06/17/18 Requires SENIOR ASP NET DEVELOPER Follow Up: Yes Recommendations Liquids Consistency Recommendations: [...] Date of Service: 06/17/18 1002 Status: Addendum Maintenance Helper Utility Engineer: Rosie Lindsay MD (Physician) Related Notes: Original Note by Rosie Lindsay MD (Physician) filed at 06/17/18 1318 [facility] Service: Hospitalist Progress Note Hospital Day: LOS: 8 days SUBJECTIVE Patient Summary: 68-year-old [place] Islander-speaking gentleman with a history of rectal canc [...] with patient's son and family with a whipper beater all questi ons answered. Disposition: Inpatient Code Status: Full Code Rosie Lindsay MD 06/17/2018 10:31 AM This entry has been created using [employer] Speech Recognition software and [employer]. The entry has been reviewed and there may still exist sound alike word errors. aJazmyne jules MD - 06/17/2018 9:20 AM PDT Progress Notes by Jazmyne Hairston MD at 06/17/18919 Author: Jazmyne Hairston MD Service: Neurology Author Type: Physician Filed: 06/18/18 1109 Date of Service: 06/17/18919 Status: Addendum Maintenance Helper Utility Engineer: Jazmyne Hairston MD (Physician) Related Notes: Original [...] 06/16/181855 Date of Service: 06/16/181849 Status: Signed Maintenance Helper Utility Engineer: Nasrin Foley RN (Registered Nurse) Pt was [...] Date of Service: 06/16/18 1408 Status: Addendum Maintenance Helper Utility Engineer: Paula Lubin RN (Registered Nurse) Related Notes: Original Note by Paula Lubin RN (Registered Nurse) filed at 06/16/18 141 0 D/c plan: Please call ynes Sandoval [phone] or pt's brother, Gustabo, --PT to eval for recommendations, may need snf --sitter in place [place] onver alex Transaction, Provider Unknown - 06/16/2018 1:48 PM PDT Case Management by Paula Lubin RN at 06/16/18 5593 Author: Paula Lubin RN Service: (none) Author Type: Registered Nurse Filed: 06/16/18 1895 Date of Service: 06/16/18 2255 Status: Signed Maintenance Helper Utility Engineer: Paula Lubin RN (Registered Nurse) 06/16/18 1300 [...] confused. Met with pt's brother, Gustabo Eaton(speaks [place] only) re d/c planning. Gustabo states pt resides in [place] alone, but he has a son, Byron Eaton() who also resides in [place], pt's sposue and other children reside in [place]. Gustabo also lives in [place]. Per Gustabo, pt has been indep with all his ADL's, no use of dme, no anticoagulants, no HH services, no HD. Gustabo has been involved in pt's care after all hi s surgeries and thinks going to a snf would be the best. Per previous CM notes, back in 2014 , pt had been accepted to [facility], but ended up going to an LTAC instead. Tc to Byron, left [facility] to call back re d/c planning. Patient's [...] 06/17/18904 Date of Service: 06/16/181223 Status: Addendum Maintenance Helper Utility Engineer: Jazmyne Hairston MD (Physician) Related Notes: Original [...] may benefit from AC more than ASA ([id number] VASC: 3 and CHADS2: 2). Isabella r, [...] Service: Hospitalist Author Type: Physician Filed: 06/16/18 1446 Date of Service: 06/16/18 1021 Status: Signed Maintenance Helper Utility Engineer: Rosie Lindsay MD (Physician) [facility] Service: Hospitalist Progress Note Hospital Day: LOS: 7 days SUBJECTIVE Patient Summary: 68-year-old [place] Islander-speaking gentleman with a history of rectal canc er , hyperlipidemia, alcohol abuse admitted with seizure and possibly encephalitis. Neurolog y and ID consulted. Events Overnight: Patient is oriented to self. He complains of pain in his back and k nee pain. He denies any other complaints. Scheduled Medications acyclovir 10 mg/kg ([place]) Intravenous Q8H aspirin 81 mg Oral Daily [...] HSV/limbic encephalitis could be considered in the [facility] clinical setting although felt to [...] AM This entry has been created using [employer] Speech Recognition software and [employer]. The entry has been reviewed and there may still exist sound alike word errors. onversion Trans action, Provider Unknown - 06/15/2018 8:08 PM PDT Nurse Progress Note by Miracle Montes RN at 06/15/182007 Author: Miracle Montes RN Service: (none) Author Type: Registered Nurse Filed: 06/15/182008 Date of Service: 06/15/182007 Status: Signed Maintenance Helper Utility Engineer: Miracle Montes RN (Registered Nurse) Pt vitals stable. No acute changes in neuro status. Pt demonstrates confusion and is A/O to self. Needs and concerns addressed with family members. End of shift audit complete. Miracle Montes RN alvor son, Bjorn Joiner MD - 06/15/2018 1:55 PM PDT Progress Notes by Bjorn Cardenas MD-R3 at 06/15/18 1357 Author: Bjorn Cardenas MD-R3 Service: Sterile Process Coordinator Author Type: Resident-Y3 Filed: 06/15/18 1352 Date of Service: 06/15/18 1354 Status: Attested Maintenance Helper Utility Engineer: Bjorn Cardenas MD-R3 (Resident-Y3) Cosigner: Edy La MD at 06/15 8399 Attestation signed by Edy La MD at [...] 35 min of high complexity care. . [facility] Service: Sterile Process Coordinator Progress Note Jose Eaton 68 y.o. Hospital Day: LOS: 6 days Post-Op Day: * No surgery found * Consulting Physicians Treatment Team: Consulting Physician: Jean-Pierre Du II, MD Consulting Physician: Kita Garzon MD Consulting Physician: Jazmyne Hairston MD Admitting Provider: Edy La MD SUBJECTIVE Patient Summary:From Dr. Arreaga's progress note: "68 y.o.st helenian speaking M with PMHof rectalcancers/p LAR andileostomy [...] respiratory distress. SCHEDULED MEDICATIONS acyclovir 10 mg/kg ([place]) Intravenous Q8H enoxaparin 40 mg Subcutaneous Q24H [...] no facial asymmetry, follows commands given in [place], waving to us while we are rounding [...] HSV/limbic encephalitis could be considered in the [facility] clinical setting although felt to [...] Date of Service: 06/15/18 1030 Status: Signed Maintenance Helper Utility Engineer: Edel Thornton RN (Registered Nurse) Patient report given to TIMOTEO Figueroa (4RP). Pt was informed of the move via laundry routeman. Chart, meds, and belongings with the patient to 4RP via wheelchair. Kita Posey MD - 06/15/2018 9:58 AM PDTFormatting of this note might be differen t from the original. Progress Notes by Kita Garzon MD at 06/15/18 0958 Author: Kita Garzon MD Service: Infectious Disease Author Type: Physici an Filed: 06/15/18 1001 Date of Service: 06/15/18 0958 Status: Signed Maintenance Helper Utility Engineer: Kita Garzon MD (Physician) [facility] Service: Infectious Diseases Progress Note Hospital Day: [...] turgor Neurologic: confused; thinks he is in "[place]" LABS: MICRO: CSF cultures NGTD; HSV PCR [...] Neg HIV and Hep C Dictation software, [employer], used which may contain error for similar [...] 06/14/181847 Date of Service: 06/14/181846 Status: Signed Maintenance Helper Utility Engineer: Carole Baker RN (Registered Nurse) End of shift chart audit complete. Carole Baker RN onver alex Transaction, Provider Unknown - 06/14/2018 4:29 PM PDT Progress Notes by Jesus Spaulding, TYSON at 06/14/181628 Author: Jesus Spaulding RRT Service: (none) Author Type: Registered Respiratory Therapis t Filed: 06/14/18 1634 Date of Service: 06/14/181628 Status: Signed Maintenance Helper Utility Engineer: Jesus Spaulding RRT (Registered Respiratory Therapist) Patient [...] at 06/14/18 0805 Author: JONATHON Rosado Service: Sterile Process Coordinator Author Type: Advanced Registered Nu rse Practitioner Filed: 06/14/1811 Date of Service: 06/14/18804 Status: Signed Maintenance Helper Utility Engineer: JONATHON Rosado (Advanced Registered Nurse Practitioner) [facility] Service: Sterile Process Coordinator Progress Note Jose Eaton 68 y.o. Hospital Day: LOS: 5 days Post-Op Day: * No surgery found * Consulting Physicians Treatment Team: Consulting Physician: Jean-Pierre Du II, MD Admitting Provider: Edy La MD SUBJECTIVE Patient Summary:From Dr. Arreaga's progress note: "68 y.o.st helenian speaking M with PMHof rectalcancers/p LAR andileostomy [...] no facial asymmetry, follows commands given in [place], wiggling toes HEENT:sclerae clear, nonicteric, oral mmm, [...] encephalitis could be considered in the [facility] [place] clinical setting although felt to be less [...] Author: BRIA Sparks Service: (none) Author Type: Coach Operator Filed: 06/13/18 3468 Date of Service: 06/13/18 122 Status: Signed Maintenance Helper Utility Engineer: BRIA Sparks (Coach Operator) provided patient's son with the requested letter for his court involvement. BRIANNA Hughes onver alex Transaction, Provider Unknown - 06/13/2018 12:00 PM PDT Nurse Progress Note by Kalpana Burns RN at 06/13/18 1200 Author: Kalpana Burns RN Service: (none) Author Type: Registered Nurse Filed: 06/13/18 1735 Date of Service: 06/13/18 1200 Status: Signed Maintenance Helper Utility Engineer: Kalpana Burns RN (Registered Nurse) Discussed restraint renewal with JONATHON Alexander during rounds at 0900. Multiple code blue act ivations an emergencies on floor caused restraint order to be delayed. Kalpana Burns RN onver alex Transaction, Provider Unknown - 06/13/2018 11:23 AM PDT Progress Notes by Mariely Cohen RD at 06/13/18 1123 Author: Mariely oChen RD Service: (none) Author Type: Registered Dietitian Filed: 06/13/18 1300 Date of Service: 06/13/18 1123 Status: Signed Maintenance Helper Utility Engineer: Mariely Cohen RD (Registered Dietitian) 06/13/18 1123 Subjective Timepoint Follow up Pt c/o In to f/u with pt who was admitted for seizures, with hx of ETOH abuse, is intubated . Per Rn plan is to trial extubation this afternoon. Spoke with son, brother, and other fami ly at bedside. RD conducted visit in [place]. Reported by Family Diet Experience Self-selected diet(s) [...] 0804 Date of Service: 06/13/18740 Status: Signed Maintenance Helper Utility Engineer: Marisela Salcido RN (Registered Nurse) 24hr chart check/audit completed. MARISELA SALCIDO RN Amanda Junior MD - 06/13/2018 4:22 AM PDTFormatting of this note might be different from the origi nal. Progress Notes by Amanda Arreaga MD at 06/13/18421 Author: Amanda Arreaga MD Service: Sterile Process Coordinator Author Type: Physician Filed: 06/13/189 Date of Service: 06/13/18421 Status: Signed Maintenance Helper Utility Engineer: Amanda Arreaga MD (Physician) [facility] Service: Sterile Process Coordinator Progress Note Jose Eaton 68 y.o. Hospital Day: LOS: 4 days Post-Op Day: * No surgery found * Consulting Physicians Treatment Team: Consulting Physician: Jean-Pierre Du II, MD Admitting Provider: Edy La MD SUBJECTIVE SUBJECTIVE Patient Summary:68 y.o.st helenian speaking M with PMHof rectalcancers/p LAR andileostomy reversal in 2016, hyperlipidemia, ETOH abuse (2 pints of whiskey daily), atrial fib, and pancreatitis,whopresents in transfer from [facility] with seizures an d found to have [...] HSV/limbic encephalitis could be considered in the [facility] clinical setting although felt to [...] a plan exclusive of all other procedures. mAanda Arreaga MD 06/13/2018 onversion Transaction, Provider Unknown - 06/12/2018 3:14 PM PDTFormatting of this note might be different from th e original. Progress Notes by Khurram Palmer RRT at 06/12/18 1514 Author: Khurram Palmer RRT Service: (none) Author Type: Registered Respiratory Therap ist Filed: 06/12/181513 Date of Service: 06/12/181513 Status: Signed Maintenance Helper Utility Engineer: Khurram Palmer RRT (Registered Respiratory Therapist) 06/12/18 1511 ETT 8 mm Placement Date/Time: 06/11/18 1415 Size : 8 mm Cuffed: Cuffed Insertion attempts: 1 Pl aced By: CUSTOMER SERVICE AND SALES CONSULTANT Secured at (cm): 25 cm Measured From: Gums Secured by: Commercial tube hold er Confirmation: EtCO2 Technique: [place] Scope Secured at (cm) 25 cm Measured [...] 0.9 Sec(s) Insp Rise Time (sec) / Traill 0.2 sec Tube Compensation/ATC 100 % Auto [...] 06/12/181043 Date of Service: 06/12/181043 Status: Signed Maintenance Helper Utility Engineer: Khurram Palmer RRT (Registered Respiratory Therapist) 06/12/18 1040 Vent Type/Mode Vent Type Drager Vent Mode Drager VC-AC RT Settings Set Rate 16 bmp Resp Rate Total 16 br/min Vt Set 360 mL PEEP 8.1 cmH20 FiO2 21 % Trigger flow (L/min) 2 L/m Insp Time 0.9 Sec(s) Insp Rise Time (sec) / Traill 0.2 sec Tube Compensation/ATC 100 % Auto [...] 06/12/18753 Date of Service: 06/12/18753 Status: Signed Maintenance Helper Utility Engineer: Khurram Palmer RRT (Registered Respiratory Therapist) This [...] device data Insp Rise Time (sec) / Traill - Cannot attach notes to unvalidated device [...] Cuffed Insertion attempts: 1 Pl aced By: CUSTOMER SERVICE AND SALES CONSULTANT Secured at (cm): 25 cm Measured From: Gums Secured by: Commercial tube hold er Confirmation: EtCO2 Technique: [place] Scope Secured at (cm) 25 cm Measured [...] at 06/12/18322 Author: Amanda Arreaga MD Service: Sterile Process Coordinator Author Type: Physician Filed: 06/12/18330 Date of Service: 06/12/18322 Status: Signed Maintenance Helper Utility Engineer: Amanda Arreaga MD (Physician) [facility] Service: Sterile Process Coordinator Progress Note Jose Eaton 68 y.o. Hospital Day: LOS: 3 days Post-Op Day: * No surgery found * Consulting Physicians Treatment Team: Consulting Physician: Jean-Pierre Du II, MD Admitting Provider: Edy La MD SUBJECTIVE Patient Summary: 68 y.o.st helenian speaking M with PMH of rectal cancers/p LAR and i leostomy reversal in 2016, hyperlipidemia, ETOH abuse (2 pints of whiskey daily), atrial fib , and pancreatitis,whopresents in transfer from [facility] with seizures and found to have a [...] Note by Mirtha Espinoza RN at 06/11/18 5173 Author: Mirtha Espinoza RN Service: (none) Author Type: Registered Nurse Filed: 06/11/18 5821 Date of Service: 06/11/181546 Status: Signed Maintenance Helper Utility Engineer: Mirtha Espinoza RN (Registered Nurse) Pt extubated [...] Date of Service: 06/11/18 1528 Status: Signed Maintenance Helper Utility Engineer: Tracie Savage CRT (Certified Respiratory Therapist) Pt placed on spontaneous mode at 1054 and passed SBT, no periods of apnea, normal RR, spO2 100%. Received confirmation from [facility] that pt was following commands and able to be extubate d. Had laundry routeman explain to pt process of extubation, dropped cuff heard a leak, and pulle d tube. After extubated pt was unable to cough, sounded very coarse. Attempted NT suction wa s not able to get much secretions. Doctors notified and decision was made to re intubate. onver alex Transaction, Provider Unknown - 06/11/2018 9:57 AM PDT Case Management by Jordan Lugo RN at 06/11/18 0927 Author: Jordan Lugo RN Service: (none) Author Type: Registered Nurse Filed: 06/11/18 1349 Date of Service: 06/11/18956 Status: Addendum Maintenance Helper Utility Engineer: Jordan Lugo RN (Registered Nurse) Related Notes: Original Note by Jordan Lugo RN (Registered Nurse) filed at 06/11/18 12 8:33 AM Jose is still intubated. No family in the room. Left another message for Byron [phone]. 11:50 AM Checked on Jose. Lots of family just arrived. I will let them get settled and revisit w ith a regional director of admissions. 1:48 PM Went to see Jose's family. They are no longer here. Message left for Byron. Amanda Junior MD - 06/11/2018 5:40 AM PDTFormatting of this note might be different from the origi nal. Progress Notes by Amanda Arreaga MD at 06/11/18 5373 Author: Amanda Arreaga MD Service: Sterile Process Coordinator Author Type: Physician Filed: 06/11/1858 Date of Service: 06/11/18539 Status: Signed Maintenance Helper Utility Engineer: Amanda Arreaga MD (Physician) [facility] Service: Sterile Process Coordinator Progress Note Jose Eaton 68 y.o. Hospital Day: LOS: 2 days Post-Op Day: * No surgery found * Consulting Physicians Treatment Team: Consulting Physician: Jean-Pierre Du II, MD Admitting Provider: Edy La MD SUBJECTIVE Patient Summary: 68 y.o.st helenian speaking M with PMH of rectal cancers/p LAR and i leostomy reversal in 2016, hyperlipidemia, ETOH abuse (2 pints of whiskey daily), atrial fib , and pancreatitis,whopresents in transfer from [facility] with seizures and found to have a [...] Intake/Output Summary (Last 24 hours) at 06/11/18 0533 Last data filed at 06/11/18 0419 Gross [...] HSV/limbic encephalitis could be considered in the [facility] clinical setting although felt to [...] at 06/10/182139 Author: Rachel Stephens RN Service: Sterile Process Coordinator Author Type: Registered Nurse Filed: 06/11/18 010 Date of Service: 06/10/182139 Status: Signed Maintenance Helper Utility Engineer: Rachel Stephens RN (Registered Nurse) Propofol turned [...] Notes by Belén Greenwood RN at 06/10/18 8392 Author: Belén Greenwood RN Service: (none) Author Type: Registered Nurse Filed: 06/10/181842 Date of Service: 06/10/181842 Status: Signed Maintenance Helper Utility Engineer: Belén Greenwood RN (Registered Nurse) End of shift chart audit complete onver alex Transaction, Provider Unknown - 06/10/2018 2:22 PM PDT Progress Notes by Shakira Geiger RD at 06/10/18 142 Author: Shakira Geiger RD Service: (none) Author Type: Registered Dietitian Filed: 06/10/18 1424 Date of Service: 06/10/181421 Status: Signed Maintenance Helper Utility Engineer: Shakira Geiger RD (Registered Dietitian) 06/10/18 1400 Subjective Timepoint Admit Pt c/o Consult received for TF. Pt admitted for seizures. Pt intubated and sedated. Per haile rting pt transferred from [facility] (was admitted there on 06/07). No family present at t samy of visit. Diet Experience Self-selected diet(s) followed Per charting pt had poor po intake 2 days [facility] [place] to [facility] [address], was not eating food and only [...] Estimated Energy Needs Total Energy Estimated Needs [id number] kcal/day Method for Estimating Needs 25-30 kcal/kg [...] 06/11/18732 Date of Service: 06/10/18922 Status: Addendum Maintenance Helper Utility Engineer: Jordan Lugo RN (Registered Nurse) Related Notes: Original Note by Jordan Lugo RN (Registered Nurse) filed at 06/10/1809 06 9:23 AM Attempted to do assessment, patient intubated, and no family in room. Message left for [facility] Liborio [phone]. Will re-visit later. 12:06 PM Still no family in room. Called and left message with Jose Matthews's son, number was on ite board. [phone] 3:03 PM Checked in on Jose. Still no family or return call from friend or sons. onver alex Transaction, Provider Unknown - 06/10/2018 7:31 AM PDT Nurse Progress Note by Mirela Damon RN at 06/10/18730 Author: Mirela Damon RN Service: (none) Author Type: Registered Nurse Filed: 06/10/18 0737 Date of Service: 06/10/18730 Status: Signed Maintenance Helper Utility Engineer: Mirela Damon RN (Registered Nurse) End of [...] Jones at 06/10/18429 Author: JONATHON Jones Service: Sterile Process Coordinator Author Type: Advanced Registered Nurse Practitioner Filed: 06/10/18 0653 Date of Service: 06/10/18429 Status: Signed Maintenance Helper Utility Engineer: JONATHON Jones (Advanced Registered Nurse Practitioner) [facility] Sterile Process Coordinator Service Progress Note Jose Eaton 68 y.o. Hospital Day: LOS: 1 day Consulting Physicians Treatment Team: Admitting Provider: Edy La MD SUBJECTIVE Patient Summary: From [facility] on 06/09/18: The patient is a 68 y.o. male, [place]er-speaking only, with significant past medical history of colon cancer (s/p bowel resection and ileostomy reversal in 2015), hyperlipidemia, ETOH abuse, atrial fib, and pancreatitis, who presents in transfer from [facility] in [facility], [place]. He originally presented to via EMS on [...] ED documentation). ICU Timeline: 06/09: transferred from [facility] to [facility] ICU; EEG done, intubated for airway prote [...] Result Date: 06/09/2018 ETT 4.1 cm above kaivtha. No pneumothorax or focal consolidation. Trace right [...] Brain masses. MRI without contrast done at [facility] showing small mass in the left high [...] 110 ml/hr. Severe protein-calorie malnutrition. Consult to customer account manager. RENAL/LYTES: Renal function appears normal. Renally dose [...] 06/10/1841 Date of Service: 06/10/1841 Status: Signed Maintenance Helper Utility Engineer: Suad Alvarez RPH (Pharmacist) Clinical Pharmacy Note: [...] 06/09/182246 Date of Service: 06/09/182236 Status: Addendum Maintenance Helper Utility Engineer: Toribio Lopez MD (Physician) Related Notes: Original Note by Toribio Lopez MD (Physician) filed at 06/09/18 224 5 [facility] Service: Continuous EEG Monitoring Progress Note Reason [...] any questions or concerns. Toribio Lopez MD [facility] Clinical Neurophysiologist documented in t his encounter [...] [address] | | | | | | [place] [address] | | | | | | [phone] | | | | | | | | +--------+ + + + + | 02/21/ | Surgery | | Saleem Shore, | COLONOSCOPY | | 2019 | | | MD [address] | | | | | | [address] | | | | | | [place] [address] | | | | | | [phone] | | | | | | | [...] | | | Basophils | performed at [facility], [address] | K/uL | LAB | | | | [address], | | | | | | [place] [address] | | | | + + + [...] | | | | | performed at [facility], [address] | | | | | | [facility], | | | | | | [place] [address] | | | | + + + [...] | | | | | [place] | | | | | | [address] | | | | + + + [...] | | | Basophils | performed at [facility], [address] | K/uL | LAB | | | | [address], | | | | | | [place] [address] | | | | + + + [...] | | | | | performed at [facility], [address] | | | | | | [facility] [address], | | | | | | [place] [address] | | | | + + + [...] | | | Basophils | performed at [facility], [address] | K/uL | LAB | | | | [place], | | | | | | [place] [address] | | | | + + + [...] | | | | | performed at [facility], [address] | | | | | | [facility], | | | | | | [place] [address] | | | | + + + [...] | | | Basophils | performed at [facility];[address] | [address] | LAB | | | | [address];[place], [place] | | | | | | [address] | | | | + + + [...] | | | | | performed at [facility], [address] | | | | | | [facility], | | | | | | [place] [address] | | | | + + + [...] | | | Basophils | performed at [facility];[address] | [address] | LAB | | | | [address];[place], [place] | | | | | | [address] | | | | + + + [...] | | | | | performed at [facility], [address] | | | | | | [facility], | | | | | | [place] [address] | | | | + + + [...] | | | Fingerstick | performed at [facility];[address] | | LAB | | | | [address];[place], [place] | | | | | | [address] | | | | + + + [...] | | | Fingerstick | performed at [facility];[address] | | LAB | | | | [address];[place] | | | | | | [address] | | | | + + + [...] C.difficile. | | | Testing performed at [facility];[address] [place] [address];[place] [address] | | + + + + +---------+ [...] | | | Fingerstick | performed at [facility];[address] | | LAB | | | | [address];[place] | | | | | | [address] | | | | + + + [...] | | | Fingerstick | performed at [facility];[address] | | LAB | | | | [address];[place], [place] | | | | | | [address] | | | | + + + [...] | | | Basophils | performed at [facility], [address] | K/u[address] | LAB | | | | [place], | | | | | | [place] [address] | | | | + + + [...] EXTERNAL | | | | performed at [facility], [address] | uIU/mL | LAB | | | | [place], | | | | | | [place] [address] | | | | + + + [...] | | | | | performed at [facility], [address] | | | | | | [facility], | | | | | | [place] [address] | | | | + + + [...] | | | Cholesterol | performed at [facility], [address] | | LAB | | | , | [place], | | | | | Calculated, | [place] [address] | | | | | External | [...] | | | | | performed at [facility], [address] | | | | | | [address], | | | | | | [place] [address] | | | | + + + [...] | | | Fingerstick | performed at [facility];[address] | | LAB | | | | [address];[place], [place] | | | | | | [address] | | | | + + + [...] | | | Fingerstick | performed at [facility];[address] | | LAB | | | | [place] | | | | | | [address] | | | | + + + [...] | cm D-E Excursion: 1.43 cm E-F Traill: 0.07 m/s Ao Diam: | | | 3.45 cm Ao/LA: 0.75 AV Cusp: 1.40 cm LA Diam: 4.58 cm | | | LA/Ao: 1.32 TAPSE: 1.36 cm AR Dec Traill: 2.46 m/s2 AR Dec | | | [...] | | | RV S': 0.14 m/s It Consulting Director: KASEY Authenticated by: Torsten Hays | | [...] | aortic arch are normal.24. No mass dnnokgbrkg10. No ASD observed.26. No VSD observed. | [...] mlLAESV Index (A-L): 42.86 ml/m2LAAs A2C: 22.17 de3KCHVM A-L A2C: 70.09 mlLALs | | A2C: 5.95 cmLAAs A4C: 23.86 [id number] A-L A4C: 80.98 mlLALs A4C: 5.97 cmD-E | | Excursion: 1.43 cmE-F Traill: 0.07 m/Dafne Diam: 3.45 cmAo/LA: 0.75AV Cusp: 1.40 | | cmLA Diam: 4.58 cmLA/Ao: 1.32TAPSE: 1.36 cmAR Dec Traill: 2.46 m/s2AR Dec Time: | | 1407.26 [...] 0.04 m/sRV S': 0.14 m/s | | It Consulting Director: Brittanyticated by: Torsten Mckeon [facility] Date/Time: 06-16-2018 | | 16:45:49 IMPRESSION: 1. [...] arch are normal.24. No | | mass gcovuypklr98. No ASD observed.26. No VSD observed. | [...] | |D-E Excursion: 1.43 cm | |E-F Traill: 0.07 m/s | |Ao Diam: 3.45 cm | |Ao/LA: 0.75 | |AV Cusp: 1.40 cm | |LA Diam: 4.58 cm | |LA/Ao: 1.32 | |TAPSE: 1.36 cm | |AR Dec Traill: 2.46 m/s2 | |AR Dec Time: 1407.26 [...] |RV S': 0.14 m/s | | | |It Consulting Director: KASEY | |Authenticated by: Torsten Mckeon MD [...] | | | Fingerstick | performed at [facility];[address] | | LAB | | | | [address];[place] | | | | | | [address] | | | | + + + [...] EXTERNAL | | | | performed at [facility] | | LAB | | | | [address];[place], [place] | | | | | | [address] | | | | + + + [...] | | | Fingerstick | performed at [facility];[address] | | LAB | | | | [address];[place], [place] | | | | | | [address] | | | | + + + [...] | | | Basophils | performed at [facility], [address] | K/uL | LAB | | | | [place], | | | | | | [place] [address] | | | | + + + [...] EXTERNAL | | | | performed at [facility];[address] | | LAB | | | | [address];[place] | | | | | | [address] | | | | + + + [...] EXTERNAL | | | | performed at [facility];[address] | | LAB | | | | [place] | | | | | | [address] | | | | + + + [...] | | | | | performed at [facility], [address] | | | | | | [place], | | | | | | [place] [address] | | | | + + + [...] | | | Fingerstick | performed at [facility] | | LAB | | | | [address] [place] | | | | | | [address] | | | | + + + [...] | | | Fingerstick | performed at [facility];[address] | | LAB | | | | [address];[place] | | | | | | [address] | | | | + + + [...] | | | Fingerstick | performed at [facility];[address] | | LAB | | | | [address] [place] | | | | | | [address] | | | | + + + [...] EXTERNAL | | | | performed at [facility];[address] | | LAB | | | | [address];[place] | | | | | | [address] | | | | + + + [...] | | | Fingerstick | performed at [facility];[address] | | LAB | | | | [address];[place] | | | | | | [address] | | | | + + + [...] at | | | | | | [facility], [address] [place] [address] | | | | | | [place], [place] | | | | | | [address] | | | | + + + [...] EXTERNAL | | | | performed at [facility];[address] | | LAB | | | | [address];[place], [place] | | | | | | [address] | | | | + + + [...] EXTERNAL | | | | performed at [facility];[address] | | LAB | | | | [place] | | | | | | [address] | | | | + + + [...] | | | | | performed at [facility], [address] | | | | | | [facility], | | | | | | [place] [address] | | | | + + + [...] | | | Fingerstick | performed at [facility];[address] | | LAB | | | | [address];[place] | | | | | | [address] | | | | + + + [...] | | | Fingerstick | performed at [facility];[address] | | LAB | | | | [address];[place], [place] | | | | | | [address] | | | | + + + [...] EXTERNAL | | | | performed at [facility];[address] | mmol/L | LAB | | | | [address];[place], [place] | | | | | | [address] | | | | + + + [...] EXTERNAL | | | | performed at [facility] | | LAB | | | | [facility];[place] | | | | | | [address] | | | | + + + [...] | | | Fingerstick | performed at [facility];[address] | | LAB | | | | [address];[place] | | | | | | [address] | | | | + + + [...] at | | | | | | [facility], [address] | | | | | | [place] | | | | | | [address] | | | | + + + [...] | | | | | performed at [facility], [address] | | | | | | [facility], | | | | | | [place] [address] | | | | + + + [...] | | | Fingerstick | performed at [facility];[address] | | LAB | | | | [address] [place] | | | | | | [address] | | | | + + + [...] | | | Basophils | performed at [facility], [address] | K/uL | LAB | | | | [place], | | | | | | [place] [address] | | | | + + + [...] EXTERNAL | | | | performed at [facility] | | LAB | | | | [address];[place] | | | | | | [address] | | | | + + + [...] EXTERNAL | | | | performed at [facility];[address] | | LAB | | | | [address];[place], [place] | | | | | | [address] | | | | + + + [...] | | | | | performed at [facility], [address] | | | | | | [place], | | | | | | [place] [address] | | | | + + + [...] | | | Fingerstick | performed at [facility];[address] | | LAB | | | | [address];[place] | | | | | | [address] | | | | + + + [...] | | | Fingerstick | performed at [facility];[address] | | LAB | | | | [address] [place] | | | | | | [address] | | | | + + [...] | | | Fingerstick | performed at [facility];[address] | | LAB | | | | [address];[place] | | | | | | [address] | | | | + + + [...] | | | Fingerstick | performed at [facility];[address] | | LAB | | | | [address];[place], [place] | | | | | | [address] | | | | + + + [...] at | | | | | | [facility], [address] | | | | | | [place] | | | | | | [address] [...] EXTERNAL | | | | performed at [facility] | | LAB | | | | [facility];[place], [place] | | | | | | [address] | | | | + + + [...] EXTERNAL | | | | performed at [facility];[address] | | LAB | | | | [address];[place], [place] | | | | | | [address] | | | | + + + [...] | | | | | | MDRD IDNE traceable | | | | | | equation.Testing | | | | | | performed at [facility], [address] | | | | | | [facility], | | | | | | [place] [address] | | | | + + + [...] | | | Fingerstick | performed at [facility];[address] | | LAB | | | | [address] [place] | | | | | | [address] | | | | + + + [...] and | | | characteristics determined by [facility]. See Compliance | | | Statement B: Ya[employer]/CS Testing performed at [facility], | | | [address] [place] [address] | | + + + + +---------+ [...] EXTERNAL LAB | | Testing performed at [facility];[address] [place] [address];[place] [address] HSV DNA | | | Type 1 Negative Reference range: | | | Negative HSV DNA Type 2 Negative | | | Reference range: Negative This test was developed and its performance | | | characteristics determined by [facility]. It has not been | | | cleared or approved by the U.S. Food and Drug Administration. The FDA | | | has determined that such clearance or approval is not necessary. | | | This test is used for clinical purposes. It should not be regarded as | | | investigational or research. Testing performed by [facility], [address] | | [place] [address] | | + + + + +---------+ [...] 1 Testing performed at | | | [facility];[address] [facility];[place] [address] | | + + + + +---------+ [...] | range: Non Genia:<1:1 Testing performed by [facility], [address] [facility], | | | [place] [address] | | + + + + +---------+ [...] | EXTERNAL LAB | | performed at [facility];[address] [place] [address];[place] [address] | | + + + + +---------+ [...] EXTERNAL LAB | | Testing performed at [facility];[address] [place] [address];[place] [address] | | + + + + +---------+ [...] | | | | | performed by [facility], | | | | | | [address], | | | | | | [facility] [address] | | | | + + [...] | | | Fingerstick | performed at [facility];[address] | | LAB | | | | [place] | | | | | | [address] | | | | + + + [...] | | | | | performed at [facility];[address] | | | | | | [address];[place], [place] | | | | | | [address] | | | | + + + [...] | | | Fingerstick | performed at [facility];888 | | LAB | | | | [place] | | | | | | [address] | | | | + + + [...] at | | | | | | [facility], [address] [facility] | | | | | | [place] | | | | | | [address] | | | | + + + [...] EXTERNAL | | | | performed at [facility];[address] | | LAB | | | | [place] | | | | | | [address] | | | | + + + [...] EXTERNAL | | | | performed at [facility];[address] | | LAB | | | | [address];[place], [place] | | | | | | [address] | | | | + + + [...] | | | | | performed at [facility], [address] | | | | | | [facility], | | | | | | [place] [address] | | | | + + + [...] EXTERNAL | | | | performed at [facility];888 | mmol/L | LAB | | | | [address];[place], [place] | | | | | | [address] | | | | + + + [...] EXTERNAL | | | | performed at [facility];888 | | LAB | | | | [place] | | | | | | [address] | | | | + + + [...] EXTERNAL | | | | performed at [facility];88 | | LAB | | | | [address];[place], [place] | | | | | | [address] | | | | + + + [...] - 1.030 | EXTERNAL | | | [place] | | | LAB | | + [...] EXTERNAL | | | | performed at [facility];888 | | LAB | | | | [...] | | | Basophils | performed at [facility], [address] | K/uL | LAB | | | | [place], | | | | | | [place] [address] | | | | + + + [...] EXTERNAL | | | | performed at [facility];[address] | | LAB | | | | [address];[place], [place] | | | | | | [address] | | | | + + + [...] EXTERNAL | | | | performed at [facility];888 | | LAB | | | | [place] | | | | | | [address] | | | | + + + [...] | | | | | performed at [facility], [address] | | | | | | [facility], | | | | | | [place] [address] | | | | + + + [...] EXTERNAL | | | | performed at [facility];888 | | LAB | | | | [place] | | | | | | [address] | | | | + + + [...] EXTERNAL | | | | performed at [facility];888 | mmol/L | LAB | | | | [address];[place], [place] | | | | | | [address] | | | | + + + [...] INFORMATION: | | | Cancer/Mets, seizure. COMPARISON: [facility] (06/09/2018); PROCEDURE: | | | Sagittal T1, [...] EXTERNAL | | | | performed at [facility];888 | mmol/L | LAB | | | | [place] | | | | | | [phone] | | | | + + + [...] EXTERNAL | | | | performed at [facility];8 | | LAB | | | | [facility];[place], [place] | | | | | | [address] | | | | + + + [...] | | | Basophils | performed at [facility], [address] | K/uL | LAB | | | | [place], | | | | | | [place] [address] | | | | + + + [...] EXTERNAL | | | | performed at [facility], [address] | | LAB | | | | [place], | | | | | | [place] [address] | | | | + + + [...] EXTERNAL | | | | performed at [facility], [address] | | LAB | | | | [place], | | | | | | [place] [address] | | | | + + + [...] | | | | | performed at [facility], [address] | | | | | | [facility], | | | | | | [place] [address] | | | | + + + [...] NEGATIVE Testing | | | performed at [facility];[address];[place] [address] | | + + + + +---------+ [...] EXTERNAL | | | | performed at [facility];[address] | | LAB | | | | [address];[place], [place] | | | | | | [address] | | | | + + + [...] EXTERNAL | | | | performed at [facility] | | LAB | | | | [address];[place], [place] | | | | | | [address] | | | | + + + [...] | | | | | performed at [facility] | | | | | | [facility];[place], [place] | | | | | | [address] | | | | + + + [...] | | | Fingerstick | performed at [facility];[address] | | LAB | | | | [address];[place], [place] | | | | | | [address] | | | | + + + [...]
--- OUTSIDE RECORDS SUMMARY | ~2019-02-11 | XMS | Encounter Summary ---
Demographics + + + | Address | [address] | | | [place] [address] | + + + | Home Phone | | + + + | Preferred Language | Unknown | + + + | Marital Status | Single | + + + | Mandaeism Affiliation | Unknown | + + + [...] Team Providers + +------+ + | Care Training Program Assistant Name | Role | Phone | [address] | | | | | [place], [place] | [place] [address] | | | | | [address] | [phone] | | | | | [phone] | | | +--------+ + + + [...] | | | | | | [place] [address] | | | | | | [phone] | | | | | | | | +--------+ + + + + | 02/21/ | Surgery | | Saleem Shore, | COLONOSCOPY | | 2019 | | | MD Rebecca BRUNO | | | | | | [address] | | | | | | [place] [address] | | | | | | [phone] | | | | | | | | +--------+ + + + + documented as of this encounter Visit Diagnoses Not on filedocumented in this encounter"
--- OUTSIDE RECORDS SUMMARY | ~2019-02-11 | XMS | Encounter Summary ---
Demographics + + + | Address | [address] | | | [place] [address] | + + + | Home Phone [...] Team Providers + +------+ + | Care Specialist Physicians Name | Role | Phone | + +------+ + PCP | Unavailable | + +------+ + Encounter Details +--------+ + + + + | Date | Type | Department | Care Team | Description | +--------+ + + + + | 04/23/ | Hospital | [facility] | Conversion | Rectal cancer (HCC) | | 2016 | Encounter | MEDICAL CENTER XRAY | Transaction, | | | | | [address] | Provider Unknown | | | | | [place], [place] | | | | | | [address] | (Fax) | | | | | [phone] | | | +--------+ + + + [...] [address] | | | | | | [place] [address] | | | | | | [phone] | | | | | | | | +--------+ + + + + | 02/21/ | Surgery | | Saleem Shore, | COLONOSCOPY | | 2019 | | | MD [address] | | | | | | [address] | | | | | | [place] [address] | | | | | | [phone] | | | | | | | [...]
--- OUTSIDE RECORDS SUMMARY | ~2019-02-11 | XMS | Encounter Summary ---
Demographics + + + | Address | [address] | | | [place] [address] | + + + | Home Phone | | + + + | Preferred Language | Unknown | + + + | Marital Status | Single | + + + | Bahai Affiliation | Unknown | + + + | Race | Unknown | + + + | Ethnic Group | Unknown | + + + Author + + + | Author | [facility] | | | and [place] | + + + | Organization | [facility] | | | and [...] + +------+ + | Care Refinery Operator Crude Unit Name | Role | Phone | + +------+ + PCP | Unavailable | + +------+ + Encounter Details +--------+ + + + + | Date | Type | Department | Care Team | Description | +--------+ + + + + | 09/06/ | Hospital | [facility] | Conversion | Rectal cancer (HCC) | | 2014 | Encounter | CENTER CV INTRA OP | Transaction, | | | | | [address] | Provider Unknown | | | | | [place], [place] | [phone] | | | | | [address] | | | | | | [phone] | Wodo Kaufman MD | | | | | | [address] | | | | | | [place], [place] | | | | | | [address] | | | | | | | [...] Note by Porsche Lane RN at 09/06/14 763 Author: Porsche Lane RN Service: (none) Author Type: Registered Nurse Filed: 09/06/14 1054 Date of Service: 09/06/141048 Status: Signed Analog Ic Design Engineer: Porsche A Lane, RN (Registered Nurse) Pt tolerated procedure well. Mediport in place to right chest CDI. Pt able to tolerate juic e and crackers without difficulty. Discharge educated provided to patient via health and physical education professor se stout and pt verbalized understanding. Handout also provided. Pt to discharge to [facility] with friend to provide needed [...] [address] | | | | | | [place] [address] | | | | | | [phone] | | | | | | | | +--------+ + + + + | 02/21/ | Surgery | | Saleem Shore, | COLONOSCOPY | | 2018 | | | MD Rebecca BRUNO | | | | | | [address] | | | | | | [place] [address] | | | | | | [phone] | | | | | | | [...] injectable chest port. PRIMARY | | | MECHANICAL TECHNOLOGIST: Wood Kaufman MD, PhD, RPVI PROCEDURE: Informed [...] attached to the catheter tubing and the 6-Swedish Bard PowerPort | | | chest port [...] power injectable chest port. | | PRIMARY MECHANICAL TECHNOLOGIST: Wood Kaufman MD, PhD, RPVI PROCEDURE: Informed [...] attached to the catheter tubing and the 6-Swedish Bard PowerPort chest | | port was [...] | | | | | performed at [facility];[address] | | | | | | [address];[place], [place] | | | | | | [address] | | | | + + + [...] EXTERNAL LAB | | Testing performed at [facility];[address] [place] [address];[place] [address] MRSA PCR | | | NEGATIVE Testing performed at | | | [facility];[address] [place] [address];[place] [address] | | + + + + +---------+ [...]
--- OUTSIDE RECORDS SUMMARY | ~2019-02-11 | XMS | Clinical Summary ---
Demographics + + + | Address | [address] | | | [place] [address] | + + + | Home Phone [...] + + | Author | [facility] (Historical as of | | | 11-11-18) | + + + | Organization | [facility] (Historical as of | | | 11-11-18) [...] Team Providers + +------+ + | Care Santa'S Helper Name | Role | Phone | [...] +------+-------+ + | MEDICARE | MEDICA | [id number] | | | [address] | | | RE | | | | [place] [address] | | | IP-OP | | | | | + +--------+ +------+-------+ + | MEDICAID | EASTER | [id number] | | | [address] | | | N | | | | [place], [place] | | | [place] | | | | [address] | | | NIBBLER OPERATOR | | | | | + +--------+ [...] | 1951 | [phone] | [place] [address] | | | lee | | | [address] | | + +--------+ +--------+ + +
--- OUTSIDE RECORDS SUMMARY | ~2019-02-11 | XMS | Encounter Summary ---
Demographics + + + | Address | [address] | | | [place] [address] | + + + | Home Phone | | + + + | Preferred Language | Unknown | + + + | Marital Status | Single | + + + | Congregation Affiliation | Unknown | + + + | Race | Unknown | + + + | Ethnic Group | Unknown | + + + Author + + + | Author | [facility] | | | and [place] | + + + | Organization | [facility] | | | [...] Team Providers + +------+ + | Care Copier And Printer Field Technician Name | Role | Phone | + +------+ + PCP | Unavailable | + +------+ + Encounter Details +--------+ + + + + | Date | Type | Department | Care Team | Description | +--------+ + + + + | 07/10/ | Hospital | [facility] | Saleem Shore, | Rectal cancer (HCC) | | 2016 - | Encounter | [facility] [address] | MD [address] | | | | | [address] | [address] | | | 07/13/ | | [place], [place] | [place] [address] | | | 2016 | | [id number] | [phone] | | | | | [phone] | | | +--------+ + + + [...] 07/14/1527 Date of Service: 07/14/15923 Status: Signed Implementation Project Coordinator: JONATHON Zambrano (Nurse Practitioner) [facility] Service: Colon & Rectal Surgery Discharge Summary [...] - FLEXIBLE; Surgeon: Saleem Shore MD; Location: [facility]; Service: General; Laterality: N/A; Total hip arthroplasty Bilateral Knee surgery Right Flexible sigmoidoscopy N/A 12/25/2014 Procedure: SIGMOIDOSCOPY - FLEXIBLE; Surgeon: Saleem Shore MD; Location: [facility]; Service: General; Laterality: N/A; Robotic assisted laparoscopic colon resection - coloanal N/A 01/03/2015 Procedure: ROBOTIC ASSISTED LAPAROSCOPIC COLON RESECTION - COLOANAL; Surgeon: Saleem chauhan MD; Location: [facility]; Service: General; Laterality: N/A; coloanal pull thr ough Flexible sigmoidoscopy N/A 01/03/2015 Procedure: SIGMOIDOSCOPY - FLEXIBLE; Surgeon: Saleem Shore MD; Location: [facility]; Service: General; Laterality: N/A; Sigmoidoscopy - rigid N/A 01/03/2015 Procedure: SIGMOIDOSCOPY - RIGID; Surgeon: Saleem Shore MD; Location: [facility] ; Service: General; Laterality: N/A; Flexible bronchoscopy N/A 01/17/2015 Procedure: BRONCHOSCOPY - FLEXIBLE; Surgeon: Lui Lindsey MD; Location: [facility] PROCEDURE; Service: Rolling Down Machine Operator; Laterality: N/A; Flexible sigmoidoscopy N/A 04/30/2015 Procedure: SIGMOIDOSCOPY - FLEXIBLE; Surgeon: Saleem Shore MD; Location: [facility]; Service: General; Laterality: N/A; Ileostomy revision N/A 07/11/2015 Procedure: ILEOSTOMY - TAKE DOWN OR REVISION; Surgeon: Saleem Shore MD; Location: [facility]; Service: General; Laterality: N/A; Allergies [...] 07/14/151825 Date of Service: 07/14/151821 Status: Signed Implementation Project Coordinator: Belén Horn RN (Registered Nurse) Pt has been discharged home. Rx and paperwork has been discussed and he knows to follow up as directed. He is ambulating, tolerating food, voiding and pain is controlled. He has no fu rther questions at this time. All instructions have been discussed with pt's friend and with am ms sql dba. onver alex Transaction, Provider Unknown - 07/14/2015 8:32 AM PDT Case Management by BRIA Ward at 07/14/15831 Author: BRIA Ward Service: (none) Author Type: Instrument Engineer Filed: 07/14/15 0833 Date of Service: 07/14/15831 Status: Signed Implementation Project Coordinator: BRIA Ward (Instrument Engineer) CM met with pt for continued discharge [...] 07/14/15454 Date of Service: 07/14/15451 Status: Signed Implementation Project Coordinator: Kris Smith RN (Registered Nurse) Patient continues [...] 1109 Date of Service: 07/13/158 Status: Signed Implementation Project Coordinator: Saleem Shore MD (Physician) [facility] Service: Colon & Rectal Surgery [...] 07/13/1542 Date of Service: 07/13/15540 Status: Signed Implementation Project Coordinator: Kris Smith RN (Registered Nurse) Overnight patient passed a substantial amount of gas, mucous, and old blood that appeared c onsistent with surgical remnants. Patient denies any changes in pain, stomach remains rounde d, soft, and supple; abdominal tenderness remains as it was at shift change, and there is no asael blood. [facility]. Kris Smith RN 07/13/2015 5:42 AM aleem Christie MD - 07/12/2015 9:55 AM PDT Progress Notes by Saleem Shore MD at 07/12/1555 Author: Saleem Shore MD Service: General Surgery Author Type: Physician Filed: 07/12/1557 Date of Service: 07/12/15954 Status: Signed Implementation Project Coordinator: Saleem Shore MD (Physician) [facility] Service: Colon & Rectal Surgery [...] 07/12/1548 Date of Service: 07/12/15546 Status: Signed Implementation Project Coordinator: Kris Smith RN (Registered Nurse) Patient educated [...] Author: BRIA Ward Service: (none) Author Type: Instrument Engineer Filed: 07/11/151512 Date of Service: 07/11/151511 Status: Signed Implementation Project Coordinator: BRIA Ward (Instrument Engineer) CM met with pt for discharge planning. [...] 07/11/151411 Date of Service: 07/11/151411 Status: Signed Implementation Project Coordinator: Harry Santos RPH (Pharmacist) Pharmacy will renal [...] | | | | | | [facility] [address] | | | | | | [place] [address] | | | | | | [phone] | | | | | | | | +--------+ + + + + | 02/21/ | Surgery | | Saleem Shore, | COLONOSCOPY | | 2019 | | | [address] | | | | | | [address] | | | | | | [place] [address] | | | | | | [phone] | | | | | | | [...] | | average thickness of 0.8 cm. Director Of Academic sections of skin and bowel | | [...] | | | preparation was performed by [facility] | | | [address] [address] (Marine Photographer: | | | Rahul Adamson M.D.; [facility]#: [id number]). Diagnostician: Asya Garcia | | | Mary [...] EXTERNAL | | | | performed at [facility], [address] | K/uL | LAB | | | | [place], | | | | | | [place] [address] | | | | + + + + + + | RED CELL | 3.87 (L)Comment: Testing | 4.20 - 5.70 | EXTERNAL | | | COUNT | performed at [facility], [address] | M/uL | LAB | | | | [address], | | | | | | [place] [address] | | | | + + + + + + | Hgb | 12.5 (L)Comment: Testing | 13.2 - 17.0 | EXTERNAL | | | | performed at [facility], [address] | g/dL | LAB | | | | [address], | | | | | | [place] [address] | | | | + + + + + + | Hematocrit, | 36.2 (L)Comment: Testing | 39.0 - 50.0 % | EXTERNAL | | | POC | performed at [facility], [address] | | LAB | | | | [address], | | | | | | [place] [address] | | | | + + + + + + | MCV | 93.7Comment: Testing | 80.0 - 100.0 fl | EXTERNAL | | | | performed at [facility], [address] | | LAB | | | | [address], | | | | | | [place] [address] | | | | + + + + + + | MCH | 32.3Comment: Testing | 27.0 - 34.0 pg | EXTERNAL | | | | performed at [facility], [address] | | LAB | | | | [address], | | | | | | [place] [address] | | | | + + + + + + | MCHC | 34.5Comment: Testing | 32.0 - 35.5 | EXTERNAL | | | | performed at [facility], [address] | g/dL | LAB | | | | [address], | | | | | | [place] [address] | | | | + + + + + + | RDW-CV | 43.3Comment: Testing | 37 - 53 fl | EXTERNAL | | | | performed at [facility], [address] | | LAB | | | | [address], | | | | | | [place] [address] | | | | + + + + + + | Platelet | 187Comment: Testing | 150 - 400 K/uL | EXTERNAL | | | Count | performed at [facility], [address] | | LAB | | | Plasma | [address], | | | | | | [place] [address] | | | | + + + + + + | MPV | 8.2Comment: Testing | fl | EXTERNAL | | | | performed at [facility], [address] | | LAB | | | | [address], | | | | | | [place] [address] | | | | + + + + + + | Differentia | AUTOMATEDComment: | | EXTERNAL | | | l Type | Testing performed at | | LAB | | | | [facility], [address] | | | | | | [place] | | | | | | [address] | | | | + + + + + + | % Segmented | 73.77Comment: Testing | % | EXTERNAL | | | | performed at [facility], [address] | | LAB | | | Neutrophils | [address], | | | | | | [place] [address] | | | | + + + + + + | % | 17.27Comment: Testing | % | EXTERNAL | | | Lymphocytes | performed at [facility], [address] | | LAB | | | | [address], | | | | | | [place] [address] | | | | + + + + + + | % Monocytes | 6.10Comment: Testing | % | EXTERNAL | | | | performed at [facility], [address] | | LAB | | | | [address], | | | | | | [place] [address] | | | | + + + + + + | % | 2.14Comment: Testing | % | EXTERNAL | | | Eosinophils | performed at [facility], [address] | | LAB | | | | [address], | | | | | | [place] [address] | | | | + + + + + + | % Basophils | 0.72Comment: Testing | % | EXTERNAL | | | | performed at [facility], [address] | | LAB | | | | [address], | | | | | | [place] [address] | | | | + + + + + + | Absolute | 4.48Comment: Testing | 1.90 - 7.40 | EXTERNAL | | | Segmented | performed at [facility], [address] | K/uL | LAB | | | Neutrophils | [address], | | | | | | [place] [address] | | | | + + + + + + | Absolute | 1.05Comment: Testing | 1.00 - 3.90 | EXTERNAL | | | Lymphocytes | performed at [facility], [address] | K/uL | LAB | | | | [address], | | | | | | [place] [address] | | | | + + + + + + | Absolute | 0.37Comment: Testing | 0.00 - 0.80 | EXTERNAL | | | Monocytes | performed at [facility], [address] | K/uL | LAB | | | | [address], | | | | | | [place] [address] | | | | + + + + + + | Absolute | 0.13Comment: Testing | 0.00 - 0.50 | EXTERNAL | | | Eosinophils | performed at [facility], [address] | K/uL | LAB | | | [address], | | | | | | [place] [address] | | | | + + + + + + | Absolute | 0.04Comment: Testing | 0.00 - 0.10 | EXTERNAL | | | Basophils | performed at [facility], [address] | K/uL | LAB | | | | [address], | | | | | | [place] [address] | | | | + + + [...] | | | | [place] [address] | | | | + + + [...] EXTERNAL | | | | performed at [facility], [address] | | LAB | | | | [address], | | | | | | [place] [address] | | | | + + + [...] | | | | [place] [address] | | | | + + + + + + | K | 3.7Comment: Testing | 3.5 - 4.9 | EXTERNAL | | | | performed at [facility], [address] | mmol/L | LAB | | | | [address], | | | | | | [place] [address] | | | | + + + + + + | Cl | 102Comment: Testing | 99 - 109 mmol/L | EXTERNAL | | | | performed at [facility], [address] | | LAB | | | | [address], | | | | | | [place] [address] | | | | + + + + + + | CO2 | 26Comment: Testing | 23 - 32 mmol/L | EXTERNAL | | | | performed at [facility], [address] | | LAB | | | | [address], | | | | | | [place] [address] | | | | + + + + + + | Anion Gap | 10Comment: Testing | 5 - 20 mmol/L | EXTERNAL | | | | performed at [facility], [address] | | LAB | | | | [address], | | | | | | [place] [address] | | | | + + + + + + | Glucose, | 80Comment: Testing | 65 - 99 mg/dL | EXTERNAL | | | Fasting | performed at [facility], [address] | | LAB | | | | [address], | | | | | | [place] [address] | | | | + + + + + + | BUN | 9Comment: Testing | 8 - 25 mg/dL | EXTERNAL | | | | performed at [facility], [address] | | LAB | | | | [address], | | | | | | [place] [address] | | | | + + + + + + | Creatinine | 0.71Comment: Testing | 0.70 - 1.30 | EXTERNAL | | | | performed at [facility], [address] | mg/dL | LAB | | | | [address], | | | | | | [place] [address] | | | | + + + + + + | BUN/Creatin | 13Comment: Testing | | EXTERNAL | | | ine Ratio | performed at [facility], [address] | | LAB | | | | [address], | | | | | | [place] [address] | | | | + + + + + + | Calcium | 8.4 (L)Comment: Testing | 8.5 - 10.5 | EXTERNAL | | | | performed at [facility], [address] | mg/dL | LAB | | | | [place] [address], | | | | | | [place] [address] | | | | + + + [...] | | | | | | at [facility], [address] | | | | | | [place], | | | | | | [place] [address] | | | | + + + [...] EXTERNAL | | | | performed at [facility];[address] | K/uL | LAB | | | | [address];[place] | | | | | | [address] | | | | + + + + + + | RED CELL | 3.82 (L)Comment: Testing | 4.20 - 5.70 | EXTERNAL | | | COUNT | performed at [facility];[address] | M/uL | LAB | | | | [address];[place] | | | | | | [address] | | | | + + + + + + | Hgb | 12.5 (L)Comment: Testing | 13.2 - 17.0 | EXTERNAL | | | | performed at [facility];[address] | g/dL | LAB | | | | [address];[place] | | | | | | [address] | | | | + + + + + + | Hematocrit, | 34.9 (L)Comment: Testing | 39.0 - 50.0 % | EXTERNAL | | | POC | performed at [facility];[address] | | LAB | | | | [address];[place] | | | | | | [address] | | | | + + + + + + | MCV | 91.5Comment: Testing | 80.0 - 100.0 fl | EXTERNAL | | | | performed at [facility];[address] | | LAB | | | | [address];[place] | | | | | | [address] | | | | + + + + + + | MCH | 32.8Comment: Testing | 27.0 - 34.0 pg | EXTERNAL | | | | performed at [facility];[address] | | LAB | | | | [address];[place] | | | | | | [address] | | | | + + + + + + | MCHC | 35.8 (H)Comment: Testing | 32.0 - 35.5 | EXTERNAL | | | | performed at [facility];[address] | g/dL | LAB | | | | [address];[place] | | | | | | [address] | | | | + + + + + + | RDW-CV | 43.3Comment: Testing | 37 - 53 fl | EXTERNAL | | | | performed at [facility];[address] | | LAB | | | | [address];[place] | | | | | | [address] | | | | + + + + + + | Platelet | 197Comment: Testing | 150 - 400 K/uL | EXTERNAL | | | Count | performed at [facility];[address] | | LAB | | | Plasma | [address];[place] | | | | | | [address] | | | | + + + + + + | MPV | 7.5Comment: Testing | fl | EXTERNAL | | | | performed at [facility];[address] | | LAB | | | | [address];[place] | | | | | | [address] | | | | + + + + + + | Differentia | AUTOMATEDComment: | | EXTERNAL | | | l Type | Testing performed at | | LAB | | | | [facility];[address] | | [address];[place] [address] | | | | + + + + + + | % Segmented | 80.27Comment: Testing | % | EXTERNAL | | | | performed at [facility];[address] | | LAB | | | Neutrophils | [address];[place] | | | | | | [address] | | | | + + + + + + | % | 11.95Comment: Testing | % | EXTERNAL | | | Lymphocytes | performed at [facility];[address] | | LAB | | | | [address];[place] | | | | | | [address] | | | | + + + + + + | % Monocytes | 7.21Comment: Testing | % | EXTERNAL | | | | performed at [facility];[address] | | LAB | | | | [address];[place] | | | | | | [address] | | | | + + + + + + | % | 0.09Comment: Testing | % | EXTERNAL | | | Eosinophils | performed at [facility];[address] | | LAB | | | | [address];[place] | | | | | | [address] | | | | + + + + + + | % Basophils | 0.48Comment: Testing | % | EXTERNAL | | | | performed at [facility];[address] | | LAB | | | | [address];[place] | | | | | | [address] | | | | + + + + + + | Absolute | 5.45Comment: Testing | 1.90 - 7.40 | EXTERNAL | | | Segmented | performed at [facility];[address] | K/uL | LAB | | | Neutrophils | [address];[place] | | | | | | [address] | | | | + + + + + + | Absolute | 0.81 (L)Comment: Testing | 1.00 - 3.90 | EXTERNAL | | | Lymphocytes | performed at [facility];[address] | K/uL | LAB | | | | [address];[place] | | | | | | [address] | | | | + + + + + + | Absolute | 0.49Comment: Testing | 0.00 - 0.80 | EXTERNAL | | | Monocytes | performed at [facility];[address] | K/uL | LAB | | | | [address];[place] | | | | | | [address] | | | | + + + + + + | Absolute | 0.01Comment: Testing | 0.00 - 0.50 | EXTERNAL | | | Eosinophils | performed at [facility];[address] | K/uL | LAB | | | | [address];[place] | | | | | | [address] | | | | + + + + + + | Absolute | 0.03Comment: Testing | 0.00 - 0.10 | EXTERNAL | | | Basophils | performed at [facility];[address] | K/uL | LAB | | | | [address];[place] | | | | | | [address] | | | | + + + [...] EXTERNAL | | | | performed at [facility];[address] | | LAB | | | | [address];[place], [place] | | | | | | [address] | | | | + + + [...] EXTERNAL | | | | performed at [facility];[address] | mmol/L | LAB | | | | [address];[place] | | | | | | [address] | | | | + + + + + + | K | 4.3Comment: Testing | 3.5 - 4.9 | EXTERNAL | | | | performed at [facility];[address] | mmol/L | LAB | | | | [address];[place] | | | | | | [address] | | | | + + + + + + | Cl | 100Comment: Testing | 99 - 109 mmol/L | EXTERNAL | | | | performed at [facility];[address] | | LAB | | | | [address];[place] | | | | | | [address] | | | | + + + + + + | CO2 | 28Comment: Testing | 23 - 32 mmol/L | EXTERNAL | | | | performed at [facility];[address] | | LAB | | | | [address];[place] | | | | | | [address] | | | | + + + + + + | Anion Gap | 12Comment: Testing | 5 - 20 mmol/L | EXTERNAL | | | | performed at [facility];[address] | | LAB | | | | [address];[place] | | | | | | [address] | | | | + + + + + + | Glucose, | 100 (H)Comment: Testing | 65 - 99 mg/dL | EXTERNAL | | | Fasting | performed at [facility];[address] | | LAB | | | | [address];[place] | | | | | | [address] | | | | + + + + + + | BUN | 8Comment: Testing | 8 - 25 mg/dL | EXTERNAL | | | | performed at [facility];[address] | | LAB | | | | [address];[place] | | | | | | [address] | | | | + + + + + + | Creatinine | 0.68 (L)Comment: Testing | 0.70 - 1.30 | EXTERNAL | | | | performed at [facility];[address] | mg/dL | LAB | | | | [address];[place] | | | | | | [address] | | | | + + + + + + | Calcium | 8.0 (L)Comment: Testing | 8.5 - 10.5 | EXTERNAL | | | | performed at [facility];[address] | mg/dL | LAB | | | | [address];[place] | | | | | | [address] | | | | + + + + + + | Albumin | 2.8 (L)Comment: Testing | 3.3 - 4.8 g/dL | EXTERNAL | | | | performed at [facility];[address] | | LAB | | | | [address];[place] | | | | | | [address] | | | | + + + + + + | PHOSPHORUS | 2.9Comment: Testing | 2.3 - 4.8 mg/dL | EXTERNAL | | | | performed at [facility];[address] | | LAB | | | | [address];[place] | | | | | | [address] | | | | + + + [...] | | | | | | at [facility];[address];[place] [address] | | | | + + + [...]
--- OUTSIDE RECORDS SUMMARY | ~2019-02-11 | XMS | Encounter Summary ---
Demographics + + + | Address | [address] | | | [place] [address] | + + + | Home Phone | | + + + | Preferred Language | Unknown | + + + | Marital Status | Single | + + + | Moravian Affiliation | Unknown | + + + | Race | Unknown | + + + | Ethnic Group | Unknown | + + + Author + + + | Author | [facility] | | | and [place] | + + + | Organization | [facility] | | [...] Team Providers + +------+ + | Care Ordnance Truck Installation Supervisor Name | Role | Phone | + +------+ + PCP | Unavailable | + +------+ + Encounter Details +--------+ + + + + | Date | Type | Department | Care Team | Description | +--------+ + + + + | 06/09/ | [facility] | [facility] | Edy La | Enderor; Postictal | | 2019 - | Encounter | [facility] | MD Tom [address] | state (HCC); Acute | | | | CARE FLOOR [address] [place], [place] | respiratory failure | | 06/22/ | | [address] | [address] | with hypoxia (HCC); | | 2019 | | [place], [place] | | Altered mental | | | | [address] | | status, unspecified | | | | [phone] | | altered mental | | | [...] Date of Service: 06/22/18 1025 Status: Signed Seafood Preparer: Nba Cr MD (Physician) Patient: Jose Eaton [...] was admitted to ICU on transfer from [facility] 06/09/2018 with altered mental status with the patient's having last drink on 06/07/2018, as well as seizures at [facility], patient was intubated on admission and [...] Comments: Send report to Dr. Pederson at [facility] neurosurgery Order Specific Question Answer Comments Reason for Exam: follow up brain mass Is MRI exam to be done with sedation/ anesthesia? No What is the preferred imaging location? [facility] Referral to Speech Therapy Referral Priority: [...] speech Kris Hernandez PA-C [address] [place] [address] Schedule an appointment as soon as possible for a visit in 3 day(s) Wilner Pederson DO [address] [place] [address] Follow up in 3 month(s) Jazmyne Hairston MD [address] [place] [address] Call in 1 month Medication List [...] MG tablet thiamine 100 MG tablet Disposition: snf Condition: Stable Code Status: Prior Discharge medications reconciliation was completed by myself. . Case management who was Gambian-speaking explained discharge plan and medications to the [...] (none) Author Type: Registered Nurse Filed: 06/22/18 1391 Date of Service: 06/22/181024 Status: Signed Seafood Preparer: Anne Marie Greenfield RN (Registered Nurse) Disposition: [facility] Transportation: [place] [employer]. All orders, signed AVS, and prescriptions have been faxed, confirmed received by familia Greer regional director of admissions of [facility]. All DC paperwork completed Patient and family in agreement with discharge plan Medicare important message (N/A): ANNE MARIE GREENFIELD, TIMOTEO,. onver alex Transaction, Provider Unknown - 06/22/2018 10:24 AM PDT Nurse Progress Note by Opal Gagnon RN at 06/22/18 1024 Author: Opal Gagnon RN Service: (none) Author Type: Registered Nurse Filed: 06/22/18 1025 Date of Service: 06/22/18 1024 Status: Signed Seafood Preparer: Opal Gagnon RN (Registered Nurse) Pt discharged via [facility] transportation at this time. onver alex Transaction, Provider Unknown - 06/22/2018 10:00 AM PDT Nurse Progress Note by Opal Gagnon RN at 06/22/18 1000 Author: Opal Gagnon RN Service: (none) Author Type: Registered Nurse Filed: 06/22/18 1007 Date of Service: 06/22/18 1000 Status: Signed Seafood Preparer: Opal Gagnon RN (Registered Nurse) Report called to Chelle MAHMOOD at [facility] in [place] for transfer of care to facility. No questions or concerns at this time. onver alex Transaction, Provider Unknown - 06/22/2018 9:58 AM PDT Case Management by Paula Lubin RN at 06/22/18 0958 Author: Paula Lubin RN Service: (none) Author Type: Registered Nurse Filed: 06/22/1858 Date of Service: 06/22/1858 Status: Signed Seafood Preparer: Paula Lubin RN (Registered Nurse) Notified pt's brother Gustabo that pt is discharging at 1000. No questions or concerns. [place] onver alex Transaction, Provider Unknown - 06/22/2018 8:41 AM PDT Case Management by Anne Marie Greenfield RN at 06/22/18 0841 Author: Anne Marie Greenfield RN Service: (none) Author Type: Registered Nurse Filed: 06/22/18 1001 Date of Service: 06/22/18840 Status: Signed Seafood Preparer: Anne Marie Greenfield RN (Registered Nurse) Discharge planning: CM placed call to [facility] [phone] to schedule pt transport to [facility], very long hold, left message [...] 06/22/18619 Date of Service: 06/22/18618 Status: Signed Seafood Preparer: Ebony Olivares RN (Registered Nurse) Pt slept off and on throughout shift. No acute changes. Continued to refuse IV placement an d tele leads. INC[employer]. When asked if he could tell this nurse where he is at he would state in sammarinese "you insult me the questions you ask me." End of shift review complete. onver alex Transaction, Provider Unknown - 06/21/2018 6:34 PM PDT Nurse Progress Note by David Harmon RN at 06/21/181833 Author: David Harmon RN Service: (none) Author Type: Registered Nurse Filed: 06/21/181837 Date of Service: 06/21/181833 Status: Signed Seafood Preparer: David Harmon RN (Registered Nurse) Pt will likely discharge tomorrow to [facility]. Pt had 2 bouts of incontinence in [...] 06/21/181643 Date of Service: 06/21/181642 Status: Signed Seafood Preparer: Areli Zuluaga RN (Registered Nurse) Discharge Plan: [facility] to accept tomorrow. Meghan would like a [...] 06/21/181613 Date of Service: 06/21/181613 Status: Signed Seafood Preparer: Saritha Brown RD (Registered Dietitian) 06/21/18 1600 [...] Brown RD, CD ovarr Lucía david MA, CCC-FARM MACHINERY SET UP MECHANIC - 06/21/2018 2:35 PM PDTFormatting of this note might be differ ent from the original. Therapy Progress Note by Lucía Randle MA CCC-FARM MACHINERY SET UP MECHANIC at 06/21/18 4251 Author: Lucía Randle MA CCC-FARM MACHINERY SET UP MECHANIC Service: (none) Author Type: Speech and Language Pathologist Filed: 06/21/18 150 Date of Service: 06/21/18 1435 Status: Signed Seafood Preparer: Lucía Randle MA CCC-FARM MACHINERY SET UP MECHANIC (Speech and Language Pathologist) BEDSIDE SWALLOW FARM MACHINERY SET UP MECHANIC Last Visit FARM MACHINERY SET UP MECHANIC Received On: 06/21/18 Requires FARM MACHINERY SET UP MECHANIC Follow Up: No Recommendations Liquids Consistency Recommendations: [...] soft breads. Liquids: Thin liquids: regular consistency FARM MACHINERY SET UP MECHANIC Ready for Discharge: Yes Swallowing Treatment: Yes [...] Management by Paula Lubin RN at 06/21/18 8859 Author: Paula Lubin RN Service: (none) Author Type: Registered Nurse Filed: 06/21/18 9367 Date of Service: 06/21/181427 Status: Addendum Seafood Preparer: Paula Lubin RN (Registered Nurse) Related Notes: Original Note by Paula Lubin RN (Registered Nurse) filed at 06/21/18 143 1 Tc to pt's son, Byron, [phone] re d/c planning. Byron agrees to sending pt to [facility] not interested in obtaining address/phone number for facility, stated he would "ask frie nds where it's located". Tc to pt's brotherGustabo, to update on d/c to [facility], no questions or con cerns. Transport arranged for at 0000 via [employer] Nba Mantilla Kyler M, MD - 06/21/2018 8:34 AM PDTFormatting of this note might be different f rom the original. Progress Notes by Nba Cr MD at 06/21/18833 Author: Nba Cr MD Service: Hospitalist Author Type: Physician Filed: 06/21/18 1708 Date of Service: 06/21/18833 Status: Signed Seafood Preparer: Nba Cr MD (Physician) [facility] Service: Hospitalist Progress Note Hospital Day: LOS: 12 days SUBJECTIVE Patient Summary: 68-year-old Gambian-speaking gentleman with a history of rectal canc [...] and examined at bedside on follow-up with [facility] certifjae d collections agent, today the patient is oriented to person, [...] Lovenox discontinued in anticipation for surgery. Through [facility] certified collections agent I explained radiology and lab findings and [...] manage ment as well as Computerized Physician Magnetic Tape Composer Operator. Dictation software, WeArePopup.com, used which may contain error for similar [...] 06/21/1834 Date of Service: 06/21/18531 Status: Signed Seafood Preparer: Joe Bolstad, RN (Registered Nurse) Pt's q4h [...] 06/20/181831 Date of Service: 06/20/181829 Status: Signed Seafood Preparer: David Harmon RN (Registered Nurse) Pt had [...] Date of Service: 06/20/18 1033 Status: Signed Seafood Preparer: Nba Strong PT (Physical Therapist) 06/20/18 1033 [...] Date of Service: 06/20/18 1011 Status: Addendum Seafood Preparer: Anne Marie Greenfield RN (Registered Nurse) Related Notes: Original Note by Anne Marie Greenfield RN (Registered Nurse) filed at 06/20/18 1537 Discharge planning: Message left for Nolberto, coordinator of [facility] [phone], to on referral se nt. Message also left to Zoey, admission coordinator of [facility] [phone]. 1430: Message received from Nolberto, admission coordinator of [facility], jozef is not accepted at [facility]. 1500: Pt can be transferred to [facility] when he is medically ready for transf er. onver alex Transaction, Provider Unknown - 06/20/2018 9:45 AM PDT Therapy Progress Note by GABRIELLA Nguyen/Ada at 06/20/18 0945 Author: IRAM Nguyen Service: (none) Author Type: Occupational Therapist Filed: 06/20/18 1017 Date of Service: 06/20/18 0945 Status: Signed Seafood Preparer: IRAM Nguyen (Occupational Therapist) OCCUPATIONAL THERAPY REASSESSMENT OT Received On: 06/20/18 Reason for Treatment: Other (comment) (Seizures, AMS, chronic strokes, brain mass) Requires OT Follow Up: Yes OT Eval/Reassessment Date: 06/20/18 (OT evaluation completed) Assistance Required: 1 person Probate Paralegal Needed: Yes, Probate Paralegal present Family/Caregiver Present: No Recommendation: SNF Equipment [...] reintegration Follow up by: [] OT [] COMMUNICATIONS ENGINEER [x] Either Precautions Other Precautions: Fall precautions, [...] Notes by Nba Cr MD at 06/20/18 4122 Author: Nba Cr MD Service: Hospitalist Author Type: Physician Filed: 06/20/18 1832 Date of Service: 06/20/18 0855 Status: Signed Seafood Preparer: Nba Cr MD (Physician) [facility] Service: Hospitalist Progress Note Hospital Day: LOS: 11 days SUBJECTIVE Patient Summary: 68-year-old Gambian-speaking gentleman with a history of rectal canc [...] and examined at bedside on follow-up with [facility] certifie d collections agent, the patient is oriented to place, he [...] Lovenox discontinued in anticipation for surgery. Through [facility] certified collections agent I explained radiology and lab findings and [...] and management as well as Computerized Physician Magnetic Tape Composer Operator. Dictation software, WeArePopup.com, used which may contain error for similar [...] Date of Service: 06/20/18 0409 Status: Signed Seafood Preparer: Wilner Gambino RN (Registered Nurse) End of [...] 06/19/181749 Date of Service: 06/19/181748 Status: Signed Seafood Preparer: Mulu Vazquez RN (Registered Nurse) Pt has [...] Date of Service: 06/19/18 1252 Status: Addendum Seafood Preparer: Anne Marie Greenfield RN (Registered Nurse) Related Notes: Original Note by Anne Marie Greenfield RN (Registered Nurse) filed at 06/19/18 1255 Discharge planning: Message left for pt's son Byron Eaton [phone], awaiting his call back to disc uss [...] Filed: 06/19/18 1408 Date of Service: 06/19/18 2262 Status: Addendum Seafood Preparer: Rosie Lindsay MD (Physician) Related Notes: Original Note by Rosie Lindsay MD (Physician) filed at 06/19/18 1403 [facility] Service: Hospitalist Progress Note Hospital Day: LOS: 10 days SUBJECTIVE Patient Summary: 68-year-old Gambian-speaking gentleman with a history of rectal canc [...] He thinks th at he is in [place]. Scheduled Medications levETIRAcetam 500 mg Oral BID [...] PM This entry has been created using link bird Speech Recognition software and K[employer]. The entry has been reviewed and there may still exist sound alike word errors. onversion Trans action, Provider Unknown - 06/19/2018 5:51 AM PDT Nurse Progress Note by Tae Wahl RN at 06/19/18 0551 Author: Tae Wahl RN Service: (none) Author Type: Registered Nurse Filed: 06/19/1851 Date of Service: 06/19/18550 Status: Signed Seafood Preparer: Tae Wahl RN (Registered Nurse) Chart check complete onver alex Transaction, Provider Unknown - 06/18/2018 4:13 PM PDT Nurse Progress Note by Ignacio Ludwig RN at 06/18/18 7309 Author: Ignacio Ludwig RN Service: (none) Author Type: Registered Nurse Filed: 06/18/18 161 Date of Service: 06/18/181612 Status: Signed Seafood Preparer: Ignacio Ludwig RN (Registered Nurse) Chart check complete. illon nieves, Rosie Rodriguez MD - 06/18/2018 10:41 AM PDTFormatting of this note might be different from t he original. Progress Notes by Rosie Lindsay MD at 06/18/18 1041 Author: Rosie Lindsay MD Service: Hospitalist Author Type: Physician Filed: 06/18/18 1354 Date of Service: 06/18/18 104 Status: Signed Seafood Preparer: Rosie Lindsay MD (Physician) [facility] Service: Hospitalist Progress Note Hospital Day: LOS: 9 days SUBJECTIVE Patient Summary: 68-year-old Gambian-speaking gentleman with a history of rectal canc [...] with patient's son and family with a procurement clerk all questi ons answered. Disposition: Inpatient Code Status: Full Code Rosie Lindsay MD 06/18/2018 10:41 AM This entry has been created using link bird Speech Recognition software and K[employer]. The entry has been reviewed and there may still exist sound alike word errors. ntonella Randle ra, MA, CCC-FARM MACHINERY SET UP MECHANIC - 06/17/2018 3:37 PM PDTFormatting of this note might be different from t he original. Therapy Progress Note by Lucía Randle MA CCC-FARM MACHINERY SET UP MECHANIC at 06/17/18 3027 Author: Lucía Randle MA CCC-FARM MACHINERY SET UP MECHANIC Service: (none) Author Type: Speech and Language Pathologist Filed: 06/17/18 1574 Date of Service: 06/17/181536 Status: Signed Seafood Preparer: Lucía Randle MA CCC-FARM MACHINERY SET UP MECHANIC (Speech and Language Pathologist) BEDSIDE SWALLOW FARM MACHINERY SET UP MECHANIC Last Visit FARM MACHINERY SET UP MECHANIC Received On: 06/17/18 Requires FARM MACHINERY SET UP MECHANIC Follow Up: Yes Recommendations Liquids Consistency Recommendations: [...] Date of Service: 06/17/18 1002 Status: Addendum Seafood Preparer: Rosie Lindsay MD (Physician) Related Notes: Original Note by Rosie Lindsay MD (Physician) filed at 06/17/18 1318 [facility] Service: Hospitalist Progress Note Hospital Day: LOS: 8 days SUBJECTIVE Patient Summary: 68-year-old Gambian-speaking gentleman with a history of rectal canc [...] with patient's son and family with a procurement clerk all questi ons answered. Disposition: Inpatient Code Status: Full Code Rosie Lindsay MD 06/17/2018 10:31 AM This entry has been created using link bird Speech Recognition software and K[employer]. The entry has been reviewed and there may still exist sound alike word errors. aJazmyne jules MD - 06/17/2018 9:20 AM PDT Progress Notes by Jazmyne Hairston MD at 06/17/18919 Author: Jazmyne Hairston MD Service: Neurology Author Type: Physician Filed: 06/18/18 1100 Date of Service: 06/17/18919 Status: Addendum Seafood Preparer: Jazmyne Hairston MD (Physician) Related Notes: Original [...] 06/16/181855 Date of Service: 06/16/181849 Status: Signed Seafood Preparer: Nasrin Foley RN (Registered Nurse) Pt was [...] Date of Service: 06/16/18 1408 Status: Addendum Seafood Preparer: Paula Lubin RN (Registered Nurse) Related Notes: Original Note by Paula Lubin RN (Registered Nurse) filed at 06/16/18 141 0 D/c plan: Please call ynes [place]oval [phone] or pt's brother, Gustabo, --PT to eval for recommendations, may need snf --sitter in place [place] onver alex Transaction, Provider Unknown - 06/16/2018 1:48 PM PDT Case Management by Paula Lubin RN at 06/16/18 5964 Author: Paula Lubin RN Service: (none) Author Type: Registered Nurse Filed: 06/16/18 1052 Date of Service: 06/16/18 7114 Status: Signed Seafood Preparer: Paula Lubin RN (Registered Nurse) 06/16/18 1300 [...] confused. Met with pt's brother, Gustabo Eaton(speaks sammarinese only) re d/c planning. Gustabo states pt resides in [place] alone, but he has a son, Byron Eaton() who also resides in [place], pt's sposue and other children reside in [place]. Gustabo also lives in [place]. Per Gustabo, pt has been indep with all his ADL's, no use of dme, no anticoagulants, no HH services, no HD. Gustabo has been involved in pt's care after all hi s surgeries and thinks going to a snf would be the best. Per previous CM notes, back in 2014 , pt had been accepted to [facility], but ended up going to an LTAC instead. Tc to Byron, [facility] re d/c planning. Patient's [...] 06/17/18904 Date of Service: 06/16/181223 Status: Addendum Seafood Preparer: Jazmyne Hairston MD (Physician) Related Notes: Original [...] may benefit from AC more than ASA ([id number] VASC: 3 and CHADS2: 2). Isabella r, [...] Date of Service: 06/16/18 1021 Status: Signed Seafood Preparer: Rosie Lindsay MD (Physician) [facility] Service: Hospitalist Progress Note Hospital Day: LOS: 7 days SUBJECTIVE Patient Summary: 68-year-old Gambian-speaking gentleman with a history of rectal canc er , hyperlipidemia, alcohol abuse admitted with seizure and possibly encephalitis. Neurolog y and ID consulted. Events Overnight: Patient is oriented to self. He complains of pain in his back and k nee pain. He denies any other complaints. Scheduled Medications acyclovir 10 mg/kg ([place]) Intravenous Q8H aspirin 81 mg Oral Daily [...] HSV/limbic encephalitis could be considered in the [facility] clinical setting although felt to be [...] AM This entry has been created using link bird Speech Recognition software and Kula C[employer]. The entry has been reviewed and there may still exist sound alike word errors. onversion Trans action, Provider Unknown - 06/15/2018 8:08 PM PDT Nurse Progress Note by Miracle Montes RN at 06/15/182007 Author: Miracle Montes RN Service: (none) Author Type: Registered Nurse Filed: 06/15/182008 Date of Service: 06/15/182007 Status: Signed Seafood Preparer: Miracle Montes RN (Registered Nurse) Pt vitals stable. No acute changes in neuro status. Pt demonstrates confusion and is A/O to self. Needs and concerns addressed with family members. End of shift audit complete. Miracle Montes RN alvor son, Bjorn Joiner MD - 06/15/2018 1:55 PM PDT Progress Notes by Bjorn Cardenas MD-R3 at 06/15/18 1358 Author: Bjorn Cardenas MD-R3 Service: [facility] [place] Author Type: Resident-Y3 Filed: 06/15/18 1356 Date of Service: 06/15/18 1352 Status: Attested Seafood Preparer: Bjorn Cardenas MD-R3 (Resident-Y3) Cosigner: Edy La MD at 06/15 1762 Attestation signed by Edy La MD at [...] 35 min of high complexity care. . [facility] Service: [place] [place] Progress Note Jose Eaton 68 y.o. Hospital Day: LOS: 6 days Post-Op Day: * No surgery found * Consulting Physicians Treatment Team: Consulting Physician: Jean-Pierre Du II, MD Consulting Physician: Kita Garzon MD Consulting Physician: Jazmyne Hairston MD Admitting Provider: Edy La MD SUBJECTIVE Patient Summary:From Dr. Arreaga's progress note: "68 y.o.sammarinese speaking M with PMHof rectalcancers/p LAR andileostomy [...] respiratory distress. SCHEDULED MEDICATIONS acyclovir 10 mg/kg ([place]) Intravenous Q8H enoxaparin 40 mg Subcutaneous Q24H [...] no facial asymmetry, follows commands given in sammarinese, waving to us while we are rounding [...] HSV/limbic encephalitis could be considered in the [facility] clinical setting although felt to be [...] Date of Service: 06/15/18 1030 Status: Signed Seafood Preparer: Edel Thornton RN (Registered Nurse) Patient report given to TIMOTEO Figueroa (4RP). Pt was informed of the move via laborer petroleum refinery. Chart, meds, and belongings with the patient to 4RP via wheelchair. Kita Posey MD - 06/15/2018 9:58 AM PDTFormatting of this note might be differen t from the original. Progress Notes by Kita Garzon MD at 06/15/18 0958 Author: Kita Garzon MD Service: Infectious Disease Author Type: Physici an Filed: 06/15/18 1001 Date of Service: 06/15/18 0958 Status: Signed Seafood Preparer: Kita Garzon MD (Physician) [facility] Service: Infectious Diseases Progress Note Hospital [...] turgor Neurologic: confused; thinks he is in [place]" LABS: MICRO: CSF cultures NGTD; HSV PCR [...] Neg HIV and Hep C Dictation software, WeArePopup.com, used which may contain error for similar [...] 06/14/181847 Date of Service: 06/14/181846 Status: Signed Seafood Preparer: Carole Baker RN (Registered Nurse) End of shift chart audit complete. Carole Baker RN onver alex Transaction, Provider Unknown - 06/14/2018 4:29 PM PDT Progress Notes by Jesus Spaulding, TYSON at 06/14/181628 Author: Jesus Spaulding RRT Service: (none) Author Type: Registered Respiratory Therapis t Filed: 06/14/18 1634 Date of Service: 06/14/181628 Status: Signed Seafood Preparer: Jesus Spaulding RRT (Registered Respiratory Therapist) Patient [...] at 06/14/18 0805 Author: JONATHON Rosado Service: [facility] [place] Author Type: Advanced Registered Nu rse Practitioner Filed: 06/14/1811 Date of Service: 06/14/18804 Status: Signed Seafood Preparer: JONATHON Rosado (Advanced Registered Nurse Practitioner) [facility] Service: [facility] [place] Progress Note Jose Eaton 68 y.o. Hospital Day: LOS: 5 days Post-Op Day: * No surgery found * Consulting Physicians Treatment Team: Consulting Physician: Jean-Pierre Du II, MD Admitting Provider: Edy La MD SUBJECTIVE Patient Summary:From Dr. Arreaga's progress note: "68 y.o.sammarinese speaking M with PMHof rectalcancers/p LAR andileostomy [...] no facial asymmetry, follows commands given in sammarinese, wiggling toes HEENT:sclerae clear, nonicteric, oral mmm, [...] encephalitis could be considered in the [place] clinical setting although felt to be less [...] Author: BRIA Sparks Service: (none) Author Type: Hot Oiler Filed: 06/13/18 2108 Date of Service: 06/13/18 122 Status: Signed Seafood Preparer: BRIA Sparks (Hot Oiler) provided patient's son with the requested letter for his court involvement. BRIANNA Hughes onver alex Transaction, Provider Unknown - 06/13/2018 12:00 PM PDT Nurse Progress Note by Kalpana Burns RN at 06/13/18 1200 Author: Kalpana Burns RN Service: (none) Author Type: Registered Nurse Filed: 06/13/18 1735 Date of Service: 06/13/18 1200 Status: Signed Seafood Preparer: Kalpana Burns RN (Registered Nurse) Discussed restraint [...] Date of Service: 06/13/18 1123 Status: Signed Seafood Preparer: Mariely Cohen RD (Registered Dietitian) 06/13/18 1123 Subjective Timepoint Follow up Pt c/o In to f/u with pt who was admitted for seizures, with hx of ETOH abuse, is intubated . Per Rn plan is to trial extubation this afternoon. Spoke with son, brother, and other fami ly at bedside. RD conducted visit in Gambian. Reported by Family Diet Experience Self-selected diet(s) [...] 0804 Date of Service: 06/13/18740 Status: Signed Seafood Preparer: Marisela Salcido RN (Registered Nurse) 24hr chart check/audit completed. MARISELA SALCIDO RN Amanda Junior MD - 06/13/2018 4:22 AM PDTFormatting of this note might be different from the origi nal. Progress Notes by Amanda Arreaga MD at 06/13/18421 Author: Amanda Arreaga MD Service: [facility] [place] Author Type: Physician Filed: 06/13/189 Date of Service: 06/13/18421 Status: Signed Seafood Preparer: Amanda Arreaga MD (Physician) [facility] Service: [facility] [place] Progress Note Jose Eaton 68 y.o. Hospital Day: LOS: 4 days Post-Op Day: * No surgery found * Consulting Physicians Treatment Team: Consulting Physician: Jean-Pierre Du II, MD Admitting Provider: Edy La MD SUBJECTIVE SUBJECTIVE Patient Summary:68 y.o.sammarinese speaking M with PMHof rectalcancers/p LAR andileostomy [...] HSV/limbic encephalitis could be considered in the [facility] clinical setting although felt to be [...] 06/12/181513 Date of Service: 06/12/181513 Status: Signed Seafood Preparer: Khurram Palmer RRT (Registered Respiratory Therapist) 06/12/18 1511 ETT 8 mm Placement Date/Time: 06/11/18 1415 Size : 8 mm Cuffed: Cuffed Insertion attempts: 1 Pl aced By: CHARTER COACH DRIVER Secured at (cm): 25 cm Measured From: Gums Secured by: Commercial tube hold er Confirmation: EtCO2 Technique: [place] Scope Secured at (cm) 25 cm Measured [...] 0.9 Sec(s) Insp Rise Time (sec) / [place] 0.2 sec Tube Compensation/ATC 100 % Auto [...] 06/12/181043 Date of Service: 06/12/181043 Status: Signed Seafood Preparer: Khurram Palmer RRT (Registered Respiratory Therapist) 06/12/18 1040 Vent Type/Mode Vent Type Drager Vent Mode Drager VC-AC RT Settings Set Rate 16 bmp Resp Rate Total 16 br/min Vt Set 360 mL PEEP 8.1 cmH20 FiO2 21 % Trigger flow (L/min) 2 L/m Insp Time 0.9 Sec(s) Insp Rise Time (sec) / [place] 0.2 sec Tube Compensation/ATC 100 % Auto [...] 06/12/18753 Date of Service: 06/12/18753 Status: Signed Seafood Preparer: Khurram Palmer RRT (Registered Respiratory Therapist) This [...] device data Insp Rise Time (sec) / [place] - Cannot attach notes to unvalidated device [...] Cuffed Insertion attempts: 1 Pl aced By: CHARTER COACH DRIVER Secured at (cm): 25 cm Measured From: Gums Secured by: Commercial tube hold er Confirmation: EtCO2 Technique: [place] Scope Secured at (cm) 25 cm Measured [...] at 06/12/18322 Author: Amanda Arreaga MD Service: Cob[employer] Author Type: Physician Filed: 06/12/18330 Date of Service: 06/12/18322 Status: Signed Seafood Preparer: Amanda Arreaga MD (Physician) [facility] Service: Cobbler Sole Progress Note Jose Eaton 68 y.o. Hospital Day: LOS: 3 days Post-Op Day: * No surgery found * Consulting Physicians Treatment Team: Consulting Physician: Jean-Pierre Du II, MD Admitting Provider: Edy La MD SUBJECTIVE Patient Summary: 68 y.o.sammarinese speaking M with PMH of rectal cancers/p [...] Note by Mirtha Espinoza RN at 06/11/18 3170 Author: Mirtha Espinoza RN Service: (none) Author Type: Registered Nurse Filed: 06/11/18 0082 Date of Service: 06/11/181546 Status: Signed Seafood Preparer: Mirtha Espinoza RN (Registered Nurse) Pt extubated [...] Date of Service: 06/11/18 1528 Status: Signed Seafood Preparer: Tracie Savage CRT (Certified Respiratory Therapist) Pt placed on spontaneous mode at 1054 and passed SBT, no periods of apnea, normal RR, spO2 100%. Received confirmation from [facility] that pt was following commands and able to be extubate d. Had laborer petroleum refinery explain to pt process of extubation, dropped cuff heard a leak, and pulle d tube. After extubated pt was unable to cough, sounded very coarse. Attempted NT suction wa s not able to get much secretions. Doctors notified and decision was made to re intubate. onver alex Transaction, Provider Unknown - 06/11/2018 9:57 AM PDT Case Management by Jordan Lugo RN at 06/11/18 0953 Author: Jordan Lugo RN Service: (none) Author Type: Registered Nurse Filed: 06/11/18 1349 Date of Service: 06/11/18956 Status: Addendum Seafood Preparer: Jordan Lugo RN (Registered Nurse) Related Notes: Original Note by Jordan Lugo RN (Registered Nurse) filed at 06/11/18 12 8:33 AM Jose is still intubated. No family in the room. Left another message for Byron [phone]. 11:50 AM Checked on Jose. Lots of family just arrived. I will let them get settled and revisit w ith a drive thru order taker. 1:48 PM Went to see Jose's family. They are no longer here. Message left for Byron. Amanda Junior MD - 06/11/2018 5:40 AM PDTFormatting of this note might be different from the origi nal. Progress Notes by Amanda Arreaga MD at 06/11/18 3596 Author: Amanda Arreaga MD Service: [place] Author Type: Physician Filed: 06/11/1858 Date of Service: 06/11/18539 Status: Signed Seafood Preparer: Amanda Arreaga MD (Physician) [facility] Service: [place] Progress Note Jose Eaton 68 y.o. Hospital Day: LOS: 2 days Post-Op Day: * No surgery found * Consulting Physicians Treatment Team: Consulting Physician: Jean-Pierre Du II, MD Admitting Provider: Edy La MD SUBJECTIVE Patient Summary: 68 y.o.sammarinese speaking M with PMH of rectal cancers/p [...] Intake/Output Summary (Last 24 hours) at 06/11/18 0535 Last data filed at 06/11/18 0419 Gross [...] HSV/limbic encephalitis could be considered in the [facility] clinical setting although felt to be [...] at 06/10/182139 Author: Rachel Stephens RN Service: [place] Author Type: Registered Nurse Filed: 06/11/18 010 Date of Service: 06/10/182139 Status: Signed Seafood Preparer: Rachel Stephens RN (Registered Nurse) Propofol turned [...] Notes by Belén Greenwood RN at 06/10/18 0855 Author: Belén Greenwood RN Service: (none) Author Type: Registered Nurse Filed: 06/10/181842 Date of Service: 06/10/181842 Status: Signed Seafood Preparer: Belén Greenwood RN (Registered Nurse) End of shift chart audit complete onver alex Transaction, Provider Unknown - 06/10/2018 2:22 PM PDT Progress Notes by Shakira Geiger RD at 06/10/18 142 Author: Shakira Geiger RD Service: (none) Author Type: Registered Dietitian Filed: 06/10/18 1424 Date of Service: 06/10/181421 Status: Signed Seafood Preparer: Shakira Geiger RD (Registered Dietitian) 06/10/18 1400 Subjective Timepoint Admit Pt c/o Consult received for TF. Pt admitted for seizures. Pt intubated and sedated. Per haile rting pt transferred from [facility] (was admitted there on 06/07). No family present at t samy of visit. Diet Experience Self-selected diet(s) followed Per charting pt had poor po intake 2 days [facility] to [facility] [address], was [...] Estimated Energy Needs Total Energy Estimated Needs [id number] kcal/day Method for Estimating Needs 25-30 kcal/kg [...] 06/11/18732 Date of Service: 06/10/18922 Status: Addendum Seafood Preparer: Jordan Lugo RN (Registered Nurse) Related Notes: Original Note by Jordan Lugo RN (Registered Nurse) filed at 06/10/1809 06 9:23 AM Attempted to do assessment, patient intubated, and no family in room. Message left for [facility] [phone]. Will re-visit later. 12:06 PM Still no family in room. Called and left message with Jose Matthews's son, number was on ite board. [phone] 3:03 PM Checked in on Jose. Still no family or return call from friend or sons. onver alex Transaction, Provider Unknown - 06/10/2018 7:31 AM PDT Nurse Progress Note by Mirela Damon RN at 06/10/18730 Author: Mirela Damon RN Service: (none) Author Type: Registered Nurse Filed: 06/10/18 0737 Date of Service: 06/10/18730 Status: Signed Seafood Preparer: Mirela Damon RN (Registered Nurse) End of [...] Jones at 06/10/18429 Author: JONATHON Jones Service: [place] [place] Author Type: Advanced Registered Nurse Practitioner Filed: 06/10/18 0653 Date of Service: 06/10/18429 Status: Signed Seafood Preparer: JONATHON Jones (Advanced Registered Nurse Practitioner) [facility] Service Progress Note Jose Eaton 68 y.o. Hospital Day: LOS: 1 day Consulting Physicians Treatment Team: Admitting Provider: Edy La MD SUBJECTIVE Patient Summary: From [facility] on [facility]: The patient is a 68 y.o. male, Gambian-speaking only, with significant past medical history of colon cancer (s/p bowel resection and ileostomy reversal in 2015), hyperlipidemia, ETOH abuse, atrial fib, and pancreatitis, who presents in transfer from [facility] in [facility], [place]. He originally presented to via EMS on [...] from [facility] to [facility] ICU; EEG done, intubated for airway prote [...] 110 ml/hr. Severe protein-calorie malnutrition. Consult to box toe maker. RENAL/LYTES: Renal function appears normal. Renally dose [...] 06/10/1841 Date of Service: 06/10/1841 Status: Signed Seafood Preparer: Suad Alvarez RPH (Pharmacist) Clinical Pharmacy Note: [...] 06/09/182246 Date of Service: 06/09/182236 Status: Addendum Seafood Preparer: Toribio Lopez MD (Physician) Related Notes: Original Note by Toribio Lopez MD (Physician) filed at 06/09/18 224 5 [facility] Service: Continuous EEG Monitoring Progress Note [...] any questions or concerns. Toribio Lopez MD [facility] Clinical Neurophysiologist documented in t his encounter [...] [address] | | | | | | [place] [address] | | | | | | [phone] | | | | | | | | +--------+ + + + + | 02/21/ | Surgery | | Saleem Shoer, | COLONOSCOPY | | 2019 | | | MD [address] | | | | | | [address] | | | | | | [place] [address] | | | | | | [phone] | | | | | | | [...] | | | Basophils | performed at [facility], [address] | K/uL | LAB | | | | [address] [place], | | | | | | [place] [address] | | | | + + + [...] | | | | | performed at [facility], [address] | | | | | | [facility], | | | | | | [place] [address] | | | | + + + [...] | | | | | [place] | | | | | | [address] | | | | + + + [...] | | | Basophils | performed at [facility], [address] | K/uL | LAB | | | | [place], | | | | | | [place] [address] | | | | + + + [...] | | | | | performed at [facility], [address] | | | | | | [facility] [address], | | | | | | [place] [address] | | | | + + + [...] | | | Basophils | performed at [facility], [address] | K/uL | LAB | | | | [place], | | | | | | [place] [address] | | | | + + + [...] | | | | | performed at [facility], [address] | | | | | | [facility], | | | | | | [place] [address] | | | | + + + [...] | | | Basophils | performed at [facility];[address] | [address] | LAB | | | | [address];[place], [place] | | | | | | [address] | | | | + + + [...] | | | | | performed at [facility], [address] | | | | | | [facility], | | | | | | [place] [address] | | | | + + + [...] | | | Basophils | performed at [facility];[address] | K/uL | LAB | | | | [address];[place], [place] | | | | | | [address] | | | | + + + [...] | | | | | performed at [facility], [address] | | | | | | [facility], | | | | | | [place] [address] | | | | + + + [...] | | | Fingerstick | performed at [facility];[address] | | LAB | | | | [address];[place], [place] | | | | | | [address] | | | | + + + [...] | | | Fingerstick | performed at [facility];[address] | | LAB | | | | [address] [place] | | | | | | [address] | | | | + + + [...] C.difficile. | | | Testing performed at [facility];[address] [place] [address];[place] [address] | | + + + + +---------+ [...] | | | Fingerstick | performed at [facility];[address] | | LAB | | | | [address] [place] | | | | | | [address] | | | | + + + [...] | | | Fingerstick | performed at [facility];[address] | | LAB | | | | [address];[place], [place] | | | | | | [address] | | | | + + + [...] | | | Basophils | performed at [facility], [address] | K/uL | LAB | | | | [address], | | | | | | [place] [address] | | | | + + + [...] EXTERNAL | | | | performed at [facility], [address] | uIU/mL | LAB | | | | [place], | | | | | | [place] [address] | | | | + + + [...] | | | | | performed at [facility], [address] | | | | | | [facility], | | | | | | [place] [address] | | | | + + + [...] | | | Cholesterol | performed at [facility], [address] | | LAB | | | , | [place], | | | | | Calculated, | [place] [address] | | | | | External | [...] | | | | | performed at [facility], [address] | | | | | | [address], | | | | | | [place] [address] | | | | + + + [...] | | | Fingerstick | performed at [facility];[address] | | LAB | | | | [address];[place], [place] | | | | | | [address] | | | | + + + [...] | | | Fingerstick | performed at [facility];[address] | | LAB | | | | [address];[place] | | | | | | [address] | | | | + + + [...] | cm D-E Excursion: 1.43 cm E-F [place]ite[place]: 0.07 m/s Ao Diam: | | | 3.45 cm Ao/LA: 0.75 AV Cusp: 1.40 cm LA Diam: 4.58 cm | | | LA/Ao: 1.32 TAPSE: 1.36 cm AR Dec [place]ite[place]: 2.46 m/s2 AR Dec | | | [...] | | | RV S': 0.14 m/s Hydramatic Specialist: KASEY Authenticated by: Torsten Hays | | [...] | aortic arch are normal.24. No mass [id number]. No ASD observed.26. No VSD observed. | [...] mlLAESV Index (A-L): 42.86 ml/m2LAAs A2C: 22.17 [id number] A-L A2C: 70.09 mlLALs | | A2C: 5.95 cmLAAs A4C: 23.86 [id number] A-L A4C: 80.98 mlLALs A4C: 5.97 cmD-E | | Excursion: 1.43 cmE-F [place]ite[place]: 0.07 m/Dafne Diam: 3.45 cmAo/LA: 0.75AV Cusp: 1.40 | | cmLA Diam: 4.58 cmLA/Ao: 1.32TAPSE: 1.36 cmAR Dec Moniteau: 2.46 m/s2AR Dec Time: | | 1407.26 [...] 0.04 m/sRV S': 0.14 m/s | | Hydramatic Specialist: Brittanyticated by: Torsten [facility] Date/Time: 06-16-2018 | | 16:45:49 IMPRESSION: [...] arch are normal.24. No | | mass yrqxerecku87. No ASD observed.26. No VSD observed. | [...] | |D-E Excursion: 1.43 cm | |E-F [place]: 0.07 m/s | |Ao Diam: 3.45 cm | |Ao/LA: 0.75 | |AV Cusp: 1.40 cm | |LA Diam: 4.58 cm | |LA/Ao: 1.32 | |TAPSE: 1.36 cm | |AR Dec Moniteau: 2.46 m/s2 | |AR Dec Time: 1407.26 [...] |RV S': 0.14 m/s | | | |Hydramatic Specialist: KASEY | |Authenticated by: Torsten Mckeon MD [...] | | | Fingerstick | performed at [facility];[address] | | LAB | | | | [address] [place] | | | | | | [address] | | | | + + + [...] EXTERNAL | | | | performed at [facility] | | LAB | | | | [address];[place], [place] | | | | | | [address] | | | | + + + [...] | | | Fingerstick | performed at [facility];[address] | | LAB | | | | [address];[place], [place] | | | | | | [address] | | | | + + + [...] | | | Basophils | performed at [facility], [address] | K/uL | LAB | | | | [place], | | | | | | [place] [address] | | | | + + + [...] EXTERNAL | | | | performed at [facility];[address] | | LAB | | | | [address];[place] | | | | | | [address] | | | | + + + [...] EXTERNAL | | | | performed at [facility];[address] | | LAB | | | | [address];[place] | | | | | | [address] | | | | + + + [...] | | | | | performed at [facility], [address] | | | | | | [place], | | | | | | [place] [address] | | | | + + + [...] | | | Fingerstick | performed at [facility] | | LAB | | | | [address];[place] | | | | | | [address] | | | | + + + [...] | | | Fingerstick | performed at [facility];[address] | | LAB | | | | [address] [place] | | | | | | [address] | | | | + + + [...] | | | Fingerstick | performed at [facility];[address] | | LAB | | | | [address] [place] | | | | | | [address] | | | | + + + [...] EXTERNAL | | | | performed at [facility];[address] | | LAB | | | | [address];[place] | | | | | | [address] | | | | + + + [...] | | | Fingerstick | performed at [facility];[address] | | LAB | | | | [address] [place] | | | | | | [address] | | | | + + + [...] at | | | | | | [facility], [address] [place] [address] | | | | | | [place], [place] | | | | | | [address] | | | | + + + [...] EXTERNAL | | | | performed at [facility];[address] | | LAB | | | | [address];[place], [place] | | | | | | [address] | | | | + + + [...] EXTERNAL | | | | performed at [facility];[address] | | LAB | | | | [address] [place] | | | | | | [address] | | | | + + + [...] | | | | | performed at [facility], [address] | | | | | | [facility], | | | | | | [place] [address] | | | | + + + [...] | | | Fingerstick | performed at [facility];[address] | | LAB | | | | [address];[place] | | | | | | [address] | | | | + + + [...] | | | Fingerstick | performed at [facility];[address] | | LAB | | | | [address];[place], [place] | | | | | | [address] | | | | + + + [...] EXTERNAL | | | | performed at [facility];[address] | mmol/L | LAB | | | | [address];[place], [place] | | | | | | [address] | | | | + + + [...] EXTERNAL | | | | performed at [facility] | | LAB | | | | [address] [facility];[place] | | | | | | [address] | | | | + + + [...] | | | Fingerstick | performed at [facility];[address] | | LAB | | | | [address];[place] | | | | | | [address] | | | | + + + [...] at | | | | | | [facility], [address] | | | | | | [place] | | | | | | [address] | | | | + + + [...] | | | | | performed at [facility], [address] | | | | | | [facility], | | | | | | [place] [address] | | | | + + + [...] | | | Fingerstick | performed at [facility];[address] | | LAB | | | | [address] [place] | | | | | | [address] | | | | + + + [...] | | | Basophils | performed at [facility], [address] | K/uL | LAB | | | | [place], | | | | | | [place] [address] | | | | + + + [...] EXTERNAL | | | | performed at [facility] | | LAB | | | | [address];[place] | | | | | | [address] | | | | + + + [...] EXTERNAL | | | | performed at [facility];[address] | | LAB | | | | [address];[place], [place] | | | | | | [address] | | | | + + + [...] | | | | | performed at [facility], [address] | | | | | | [place], | | | | | | [place] [address] | | | | + + + [...] | | | Fingerstick | performed at [facility];[address] | | LAB | | | | [address];[place] | | | | | | [address] | | | | + + + [...] | | | Fingerstick | performed at [facility];[address] | | LAB | | | | [address];[place] | | | | | | [address] | | | | + + + [...] | | | Fingerstick | performed at [facility];[address] | | LAB | | | | [address];[place] | | | | | | [address] | | | | + + + [...] | | | Fingerstick | performed at [facility];[address] | | LAB | | | | [address];[place], [place] | | | | | | [address] | | | | + + + [...] at | | | | | | [facility], [address] | | | | | | [place] | | | | | | [address] | | | | + + + [...] EXTERNAL | | | | performed at [facility] | | LAB | | | | [address] [facility];[place], [place] | | | | | | [address] | | | | + + + [...] EXTERNAL | | | | performed at [facility];[address] | | LAB | | | | [address];[place], [place] | | | | | | [address] | | | | + + + [...] | | | | | performed at [facility], [address] | | | | | | [facility], | | | | | | [place] [address] | | | | + + + [...] | | | Fingerstick | performed at [facility];[address] | | LAB | | | | [address] [place] | | | | | | [address] | | | | + + + [...] and | | | characteristics determined by [employer]. See Compliance | | | Statement B: [employer]CS Testing performed at [facility], | | | [address] [place] [address] | | + + + + +---------+ [...] EXTERNAL LAB | | Testing performed at [facility];[address] [place] [address];[place] [address] HSV DNA | | | Type 1 Negative Reference range: | | | Negative HSV DNA Type 2 Negative | | | Reference range: Negative This test was developed and its performance | | | characteristics determined by [employer]. It has not been | | | cleared or approved by the U.S. Food and Drug Administration. The FDA | | | has determined that such clearance or approval is not necessary. | | | This test is used for clinical purposes. It should not be regarded as | | | investigational or research. Testing performed by [employer], [address] | | [place] [address] | | + + + + +---------+ [...] 1 Testing performed at | | | [facility];[address] [facility];[place] [address] | | + + + + +---------+ [...] | range: Non Genia:<1:1 Testing performed by [employer], [address] [facility], | | | [place] [address] | | + + + + +---------+ [...] | EXTERNAL LAB | | performed at [facility];[address] [place] [address];[place] [address] | | + + + + +---------+ [...] EXTERNAL LAB | | Testing performed at [facility];[address] [place] [address];[place] [address] | | + + + + +---------+ [...] | | | | | performed by [employer], | | | | | | [address], | | | | | | [facility] [address] | | | | + + + [...] | | | Fingerstick | performed at [facility];[address] | | LAB | | | | [address] [place] | | | | | | [address] | | | | + + + [...] | | | | | performed at [facility];[address] | | | | | | [address];[place], [place] | | | | | | [address] | | | | + + + [...] | | | Fingerstick | performed at [facility];[address] | | LAB | | | | [address] [place] | | | | | | [address] | | | | + + + [...] at | | | | | | [facility], [address] [facility] | | | | | | [place] | | | | | | [address] | | | | + + + [...] EXTERNAL | | | | performed at [facility];[address] | | LAB | | | | [address] [place] | | | | | | [address] | | | | + + + [...] EXTERNAL | | | | performed at [facility];[address] | | LAB | | | | [address];[place], [place] | | | | | | [address] | | | | + + + [...] | | | | | performed at [facility], [address] | | | | | | [facility], | | | | | | [place] [address] | | | | + + + [...] EXTERNAL | | | | performed at [facility];[address] | mmol/L | LAB | | | | [address];[place], [place] | | | | | | [address] | | | | + + + [...] EXTERNAL | | | | performed at [facility];[address] | | LAB | | | | [address] [place] | | | | | | [address] | | | | + + + [...] EXTERNAL | | | | performed at [facility];[address] | | LAB | | | | [address];[place], [place] | | | | | | [address] | | | | + + + [...] - 1.030 | EXTERNAL | | | Ulysses | | | LAB | | + [...] EXTERNAL | | | | performed at [facility];[address] | | LAB | | | | [place] | | | | | | [address] | | | | + + + [...] | | | Basophils | performed at [facility], [address] | K/uL | LAB | | | | [place], | | | | | | [place] [address] | | | | + + + [...] EXTERNAL | | | | performed at [facility];[address] | | LAB | | | | [address];[place], [place] | | | | | | [address] | | | | + + + [...] EXTERNAL | | | | performed at [facility];[address] | | LAB | | | | [place] | | | | | | [address] | | | | + + + [...] | | | | | performed at [facility], [address] | | | | | | [facility], | | | | | | [place] [address] | | | | + + + [...] EXTERNAL | | | | performed at [facility];[address] | | LAB | | | | [address] [place] | | | | | | [address] | | | | + + + [...] EXTERNAL | | | | performed at [facility];[address] | mmol/L | LAB | | | | [address];[place], [place] | | | | | | [address] | | | | + + + [...] INFORMATION: | | | Cancer/Mets, seizure. COMPARISON: [facility] (06/09/2018); PROCEDURE: | | | Sagittal [...] EXTERNAL | | | | performed at [facility];[address] | mmol/L | LAB | | | | [place] | | | | | | [address] | | | | + + + [...] EXTERNAL | | | | performed at [facility];[address] | | LAB | | | | [address] [facility];[place], [place] | | | | | | [address] | | | | + + + [...] | | | Basophils | performed at [facility], [address] | K/uL | LAB | | | | [place], | | | | | | [place] [address] | | | | + + + [...] EXTERNAL | | | | performed at [facility], [address] | | LAB | | | | [place], | | | | | | [place] [address] | | | | + + + [...] EXTERNAL | | | | performed at [facility], [address] | | LAB | | | | [place], | | | | | | [place] [address] | | | | + + + [...] | | | | | performed at [facility], [address] | | | | | | [facility], | | | | | | [place] [address] | | | | + + + [...] NEGATIVE Testing | | | performed at [facility];[address];[place] [address] | | + + + + +---------+ [...] EXTERNAL | | | | performed at [facility];[address] | | LAB | | | | [address];[place], [place] | | | | | | [address] | | | | + + + [...] EXTERNAL | | | | performed at [facility] | | LAB | | | | [address];[place], [place] | | | | | | [address] | | | | + + + [...] | | | | | performed at [facility] | | | | | | [facility];[place], [place] | | | | | | [address] | | | | + + + [...] | | | Fingerstick | performed at [facility];[address] | | LAB | | | | [address];[place], [place] | | | | | | [address] | | | | + + + [...]
--- OUTSIDE RECORDS SUMMARY | ~2019-02-11 | XMS | Encounter Summary ---
Demographics + + + | Address | [address] | | | [place] [address] | + + + | Home Phone | | + + + | Preferred Language | Unknown | + + + | Marital Status | Single | + + + | Orthodoxy Affiliation | Unknown | + + + | Race | Unknown | + + + | Ethnic Group | Unknown | + + + Author + + + | Author | [facility] | | | and [place] | + + + | Organization | [facility] | | | [...] Team Providers + +------+ + | Care Event Av Operator Name | Role | Phone | [...] | | | [place] | [phone] | | | | | [address] | | | | | | [phone] | | | +--------+ + + + [...] [address] | | | | | | [place] [address] | | | | | | [phone] | | | | | | | | +--------+ + + + + | 02/21/ | Surgery | | Saleem Shore, | COLONOSCOPY | | 2019 | | | MD Fernandez [facility] | | | | | | [address] | | | | | | [place] [address] | | | | | | [phone] | | | | | | | [...]
--- OUTSIDE RECORDS SUMMARY | ~2019-02-11 | XMS | Encounter Summary ---
Demographics + + + | Address | [address] | | | [place] [address] | + + + | Home Phone [...] Team Providers + +------+ + | Care Registered Occupational Therapist Name | Role | Phone | + +------+ + PCP | Unavailable | + +------+ + Encounter Details +--------+ + + + + | Date | Type | Department | Care Team | Description | +--------+ + + + + | 12/19/ | Hospital | [facility] | Conversion | | | 2015 | Encounter | [facility] | Transaction, | | | | | CLINIC [address] | Provider Unknown | | | | | [place] | [phone] | | | | | [address] | | | | | | [phone] | | | +--------+ + + + [...] [address] | | | | | | [place] [address] | | | | | | [phone] | | | | | | | | +--------+ + + + + | 02/21/ | Surgery | | Saleem Shore, | COLONOSCOPY | | 2019 | | | MD [address] | | | | | | [address] | | | | | | [place] [address] | | | | | | [phone] | | | | | | | [...] EXTERNAL | | | | performed at [facility], [address] | [address] | LAB | | | | [address], | | | | | | [place] [address] | | | | + + + + + + | RED CELL | 3.89 (L)Comment: Testing | 4.20 - 5.70 | EXTERNAL | | | COUNT | performed at [facility], [address] | M/uL | LAB | | | | [address], | | | | | | [place] [address] | | | | + + + + + + | Hgb | 13.5Comment: Testing | 13.2 - 17.0 | EXTERNAL | | | | performed at [facility], [address] | g/dL | LAB | | | | [address], | | | | | | [place] [address] | | | | + + + + + + | Hematocrit, | 38.8 (L)Comment: Testing | 39.0 - 50.0 % | EXTERNAL | | | POC | performed at [facility], [address] | | LAB | | | | [address], | | | | | | [place] [address] | | | | + + + + + + | MCV | 99.9Comment: Testing | 80.0 - 100.0 fl | EXTERNAL | | | | performed at [facility], [address] | | LAB | | | | [address], | | | | | | [place] [address] | | | | + + + + + + | MCH | 34.7 (H)Comment: Testing | 27.0 - 34.0 pg | EXTERNAL | | | | performed at [facility], [address] | | LAB | | | | [address], | | | | | | [place] [address] | | | | + + + + + + | MCHC | 34.7Comment: Testing | 32.0 - 35.5 | EXTERNAL | | | | performed at [facility], [address] | g/dL | LAB | | | | [address], | | | | | | [place] [address] | | | | + + + + + + | RDW-CV | 44.6Comment: Testing | 37 - 53 fl | EXTERNAL | | | | performed at [facility], [address] | | LAB | | | | [address], | | | | | | [place] [address] | | | | + + + + + + | Platelet | 210Comment: Testing | 150 - 400 K/uL | EXTERNAL | | | Count | performed at [facility], [address] | | LAB | | | Plasma | [address], | | | | | | [place] [address] | | | | + + + + + + | MPV | 8.1Comment: Testing | fl | EXTERNAL | | | | performed at [facility], [address] | | LAB | | | | [address], | | | | | | [place] [address] | | | | + + + + + + | Differentia | AUTOMATEDComment: | | EXTERNAL | | | l Type | Testing performed at | | LAB | | | | [facility], [address] | | | | | | [place] | | | | | | [address] | | | | + + + + + + | % Segmented | 68.31Comment: Testing | % | EXTERNAL | | | | performed at [facility], [address] | | LAB | | | Neutrophils | [address], | | | | | | [place] [address] | | | | + + + + + + | % | 18.84Comment: Testing | % | EXTERNAL | | | Lymphocytes | performed at [facility], [address] | | LAB | | | | [address], | | | | | | [place] [address] | | | | + + + + + + | % Monocytes | 9.10Comment: Testing | % | EXTERNAL | | | | performed at [facility], [address] | | LAB | | | | [address], | | | | | | [place] [address] | | | | + + + + + + | % | 2.36Comment: Testing | % | EXTERNAL | | | Eosinophils | performed at [facility], [address] | | LAB | | | | [address], | | | | | | [place] [address] | | | | + + + + + + | % Basophils | 1.39Comment: Testing | % | EXTERNAL | | | | performed at [facility], [address] | | LAB | | | | [address], | | | | | | [place] [address] | | | | + + + + + + | Absolute | 2.54Comment: Testing | 1.90 - 7.40 | EXTERNAL | | | Segmented | performed at [facility], [address] | K/uL | LAB | | | Neutrophils | [address], | | | | | | [place] [address] | | | | + + + + + + | Absolute | 0.70 (L)Comment: Testing | 1.00 - 3.90 | EXTERNAL | | | Lymphocytes | performed at [facility], [address] | K/uL | LAB | | | | [address], | | | | | | [place] [address] | | | | + + + + + + | Absolute | 0.34Comment: Testing | 0.00 - 0.80 | EXTERNAL | | | Monocytes | performed at [facility], [address] | K/uL | LAB | | | | [address], | | | | | | [place] [address] | | | | + + + + + + | Absolute | 0.09Comment: Testing | 0.00 - 0.50 | EXTERNAL | | | Eosinophils | performed at [facility], [address] | K/uL | LAB | | | | [address], | | | | | | [place] [address] | | | | + + + + + + | Absolute | 0.05Comment: Testing | 0.00 - 0.10 | EXTERNAL | | | Basophils | performed at [facility], [address] | K/uL | LAB | | | | [address], | | | | | | [place] [address] | | | | + + + [...] | | | | [place] [address] | | | | + + + + + + | K | 3.9Comment: Testing | 3.5 - 4.9 | EXTERNAL | | | | performed at [facility], [address] | mmol/L | LAB | | | | [address], | | | | | | [place] [address] | | | | + + + + + + | Cl | 102Comment: Testing | 99 - 109 mmol/L | EXTERNAL | | | | performed at [facility], [address] | | LAB | | | | [address], | | | | | | [place] [address] | | | | + + + + + + | CO2 | 29Comment: Testing | 23 - 32 mmol/L | EXTERNAL | | | | performed at [facility], [address] | | LAB | | | | [address], | | | | | | [place] [address] | | | | + + + + + + | Anion Gap | 7Comment: Testing | 5 - 20 mmol/L | EXTERNAL | | | | performed at [facility], [address] | | LAB | | | | [address], | | | | | | [place] [address] | | | | + + + + + + | Glucose, | 90Comment: Testing | 65 - 99 mg/dL | EXTERNAL | | | Fasting | performed at [facility], [address] | | LAB | | | | [address], | | | | | | [place] [address] | | | | + + + + + + | BUN | 8Comment: Testing | 8 - 25 mg/dL | EXTERNAL | | | | performed at [facility], [address] | | LAB | | | | [address], | | | | | | [place] [address] | | | | + + + + + + | Creatinine | 0.63 (L)Comment: Testing | 0.70 - 1.30 | EXTERNAL | | | | performed at [facility], [address] | mg/dL | LAB | | | | [address], | | | | | | [place] [address] | | | | + + + + + + | BUN/Creatin | 13Comment: Testing | | EXTERNAL | | | ine Ratio | performed at [facility], [address] | | LAB | | | | [address], | | | | | | [place] [address] | | | | + + + + + + | Calcium | 8.9Comment: Testing | 8.5 - 10.5 | EXTERNAL | | | | performed at [facility], [address] | mg/dL | LAB | | | | [address], | | | | | | [place] [address] | | | | + + + + + + | Protein, | 6.7Comment: Testing | 6.3 - 8.2 g/dL | EXTERNAL | | | Total | performed at [facility], [address] | | LAB | | | | [address], | | | | | | [place] [address] | | | | + + + + + + | Albumin | 4.0Comment: Testing | 3.3 - 4.8 g/dL | EXTERNAL | | | | performed at [facility], [address] | | LAB | | | | [address], | | | | | | [place] [address] | | | | + + + + + + | Globulin | 2.7Comment: Testing | 1.3 - 4.9 g/dL | EXTERNAL | | | | performed at [facility], [address] | | LAB | | | | [address], | | | | | | [place] [address] | | | | + + + + + + | A/G Ratio | 1.5Comment: Testing | 1.0 - 2.4 | EXTERNAL | | | | performed at [facility], [address] | | LAB | | | | [address], | | | | | | [place] [address] | | | | + + + + + + | Bilirubin | 0.6Comment: Testing | 0.1 - 1.5 mg/dL | EXTERNAL | | | Total | performed at [facility], [address] | | LAB | | | | [address], | | | | | | [place] [address] | | | | + + + + + + | ALP, | 104Comment: Testing | 35 - 115 U/L | EXTERNAL | | | External | performed at [facility], [address] | | LAB | | | | [address], | | | | | | [place] [address] | | | | + + + + + + | AST | 15Comment: Testing | 10 - 45 U/L | EXTERNAL | | | | performed at [facility], [address] | | LAB | | | | [address], | | | | | | [place] [address] | | | | + + + + + + | ALT | 14Comment: Testing | 10 - 65 U/L | EXTERNAL | | | | performed at [facility], [address] | | LAB | | | | [address], | | | | | | [place] [address] | | | | + + + [...] | | | | | | [place] [address] | | | | + + + [...]
--- OUTSIDE RECORDS SUMMARY | ~2019-02-11 | XMS | Encounter Summary ---
Demographics + + + | Address | [address] | | | [place] [address] | + + + | Home Phone [...] Author + + + | Author | [facility] | | | and [place] | + + + | Organization | [facility] | | | [...] Team Providers + +------+ + | Care Lmsw Name | Role | Phone | + [...] + + | 02/08/ | Telephone | [facility] | Saleem Shore, | Other (schedule | | 2019 | | GENERAL SURGERY [address] | [address] | surgery) | | | | [address] | [address] | | | | | [place], [place] | [place] [address] | | | | | [address] | [phone] | | | | | [phone] | | | +--------+ + + + [...] [address] | | | | | | [place] [address] | | | | | | [phone] | | | | | | | | +--------+ + + + + | 02/21/ | Surgery | | Saleem Shore, | COLONOSCOPY | | 2018 | | | MD [address] | | | | | | [address] | | | | | | [place] [address] | | | | | | [phone] | | | | | | | | +--------+ + + + + documented as of this encounter Visit Diagnoses Not on filedocumented in this encounter"
--- OUTSIDE RECORDS SUMMARY | ~2019-02-11 | XMS | Encounter Summary ---
Demographics + + + | Address | [address] | | | [place] [address] | + + + | Home Phone [...] Team Providers + +------+ + | Care Special Needs Librarian Name | Role | Phone | + [...] + + | 01/18/ | Office | [facility] | Saleem Shore, | Rectal prolapse | | 2019 | Visit | GENERAL SURGERY [address] | [address] | (Primary Dx) | | | | [address] | [facility] [address] | | | | | [place], [place] | [place] [address] | | | | | [address] | [phone] | | | | | [phone] | | | +--------+---------+ + + + [...] OR REVISION; Surgeon: Saleem myrick MD; Location: [facility] MAIN OR; Service: General; Laterality: N/A; OTHER SURGICAL HISTORY 04/30/2015 FLEXIBLE SIGMOIDOSCOPY - Procedure: SIGMOIDOSCOPY - FLEXIBLE; Surgeon: Saleem Shore MD; Location: [facility] ENDOSCOPY; Service: General; Laterality: N/A; OTHER SURGICAL HISTORY 01/17/2015 FLEXIBLE BRONCHOSCOPY - Procedure: BRONCHOSCOPY - FLEXIBLE; Surgeon: Lui Lindsey MD; Location: [facility] BEDSIDE PROCEDURE; Service: Audio Production Engineer; Laterality: N/A; OTHER SURGICAL HISTORY 01/03/2015 ROBOTIC ASSISTED LAPAROSCOPIC COLON RESECTION - COLOANAL - Procedure: ROBOTIC ASSISTED LAP AROSCOPIC COLON RESECTION - COLOANAL; Surgeon: Saleem Shore MD; Location: [facility] MAIN O R; Service: General; Laterality: N/A; coloanal pull through OTHER SURGICAL HISTORY 01/03/2015 FLEXIBLE SIGMOIDOSCOPY - Procedure: SIGMOIDOSCOPY - FLEXIBLE; Surgeon: Saleem Shore MD; Location: [facility] MAIN OR; Service: General; Laterality: N/A; OTHER SURGICAL HISTORY 01/03/2015 SIGMOIDOSCOPY - RIGID - Procedure: SIGMOIDOSCOPY - RIGID; Surgeon: Saleem Shore MD; Location: [facility] MAIN OR; Service: General; Laterality: N/A; OTHER SURGICAL HISTORY 12/25/2014 FLEXIBLE SIGMOIDOSCOPY - Procedure: SIGMOIDOSCOPY - FLEXIBLE; Surgeon: Saleem Shore MD; Location: [facility] ENDOSCOPY; Service: General; Laterality: N/A; OTHER SURGICAL HISTORY 08/21/2014 FLEXIBLE SIGMOIDOSCOPY - Procedure: SIGMOIDOSCOPY - FLEXIBLE; Surgeon: Saleem Shore MD; Location: [facility] ENDOSCOPY; Service: General; Laterality: N/A; TOTAL [...] a full-thickness rectal pr olapse at [facility], 1928[facility]1983. Discussed with him the findings and based [...] | | | | | | [facility] [address] | | | | | | [place] [address] | | | | | | [phone] | | | | | | | | +--------+ + + + + | 02/21/ | Surgery | | Saleem Shore, | COLONOSCOPY | | 2018 | | | [address] | | | | | | [address] | | | | | | [place] [address] | | | | | | [phone] | | | | | | | | +--------+ + + + + documented as of this encounter Visit Diagnoses + + | Diagnosis | + + | Rectal prolapse - Primary | + + documented in this encounter"
--- OUTSIDE RECORDS SUMMARY | ~2019-02-11 | XMS | Encounter Summary ---
Demographics + + + | Address | [address] | | | [place] [address] | + + + | Home Phone | | + + + | Preferred Language | Unknown | + + + | Marital Status | Single | + + + | Hinduism Affiliation | Unknown | + + + | Race | Unknown | + + + | Ethnic Group | Unknown | + + + Author + + + | Author | [facility] | | | and [place] | + + + | Organization | [facility] | | | [...] Team Providers + +------+ + | Care Cosmetics Supervisor Name | Role | Phone | [...] + + | 02/08/ | Telephone | [facility] | Saleem Shore, | Other (schedule | | 2019 | | GENERAL SURGERY [address] | [address] | surgery) | | | | [address] | [address] | | | | | [place], [place] | [place] [address] | | | | | [address] | [phone] | | | | | [phone] | | | +--------+ + + + [...] [address] | | | | | | [place] [address] | | | | | | [phone] | | | | | | | | +--------+ + + + + | 02/21/ | Surgery | | Saleem Shore, | COLONOSCOPY | | 2018 | | | MD [address] | | | | | | [address] | | | | | | [place] [address] | | | | | | [phone] | | | | | | | | +--------+ + + + + documented as of this encounter Visit Diagnoses Not on filedocumented in this encounter"
--- OUTSIDE RECORDS SUMMARY | ~2019-02-11 | XMS | Encounter Summary ---
Demographics + + + | Address | [address] | | | [place] [address] | + + + | Home Phone | | + + + | Preferred Language | Unknown | + + + | Marital Status | Single | + + + | Alevism Affiliation | Unknown | + + + | Race | Unknown | + + + | Ethnic Group | Unknown | + + + Author + + + | Author | [facility] | | | and [place] | + + + | Organization | [facility] | [...] Team Providers + +------+ + | Care Computational Biologist Name | Role | Phone | + +------+ + PCP | Unavailable | + +------+ + Encounter Details +--------+ + + + + | Date | Type | Department | Care Team | Description | +--------+ + + + + | 04/23/ | Hospital | [facility] | Conversion | Rectal cancer (HCC) | | 2016 | Encounter | [facility]ICAL [facility]ENTER XRAY | Transaction, | | | | | [address] | Provider Unknown | | | | | [place], [place] | | | | | | [address] | (Fax) | | | | | [phone] | | | +--------+ + + + [...] [address] | | | | | | [place] [address] | | | | | | [phone] | | | | | | | | +--------+ + + + + | 02/21/ | Surgery | | Saleem Shore, | COLONOSCOPY | | 2019 | | | MD [address] | | | | | | [address] | | | | | | [place] [address] | | | | | | [phone] | | | | | | | [...]
--- OUTSIDE RECORDS SUMMARY | ~2019-02-11 | XMS | Encounter Summary ---
Demographics + + + | Address | [address] | | | [place] [address] | + + + | Home Phone [...] Team Providers + +------+ + | Care Ward Service Supervisor Name | Role | Phone | + +------+ + PCP | Unavailable | + +------+ + Encounter Details +--------+ + + + + | Date | Type | Department | Care Team | Description | +--------+ + + + + | 08/21/ | Hospital | [facility] | Saleem Shore, | Rectal cancer (HCC) | | 2014 | Encounter | [facility] | [address] | | | | | INTRA OP [address] | [address] | | | | | [address]VD [place], [place] | [place] [address] | | | | | [address] | [phone] | | | | | [phone] | | | +--------+ + + + [...] [address] | | | | | | [place] [address] | | | | | | [phone] | | | | | | | | +--------+ + + + + | 02/21/ | Surgery | | Saleem Shore, | COLONOSCOPY | | 2019 | | | MD [address] | | | | | | [address] | | | | | | [place] [address] | | | | | | [phone] | | | | | | | [...] case was reviewed by another member of [employer] | | | Pathology (BES) AMB:lac: [id number] [...] preparation was | | | [facility] | | | [place] [address] (Housing Grant Analyst: Rahul | | | Anne Adamson; [facility]#: [id number]). Diagnostician: Asya Hernandez MD | | | [...]
--- OUTSIDE RECORDS SUMMARY | ~2019-02-11 | XMS | Encounter Summary ---
Demographics + + + | Address | [address] | | | [place] [address] | + + + | Home Phone | | + + + | Preferred Language | Unknown | + + + | Marital Status | Single | + + + | Uatsdin Affiliation | Unknown | + + + | Race | Unknown | + + + | Ethnic Group | Unknown | + + + Author + + + | Author | [facility] | | | and [place] | + + + | Organization | [facility] | | [...] Team Providers + +------+ + | Care Thin Film Technician Name | Role | Phone | [...] Provider Unknown | | | | | [facility] [place] | [phone] | | | | | [address] | | | | | | [phone] | | | +--------+ + + + [...] | | | | | [place] [address] | | | | | | [phone] | | | | | | | | +--------+ + + + + | 02/21/ | Surgery | | Saleem Shore, | COLONOSCOPY | | 2018 | | | MD [address] | | | | | | [address] | | | | | | [place] [address] | | | | | | [phone] | | | | | | | | +--------+ + + + + documented as of this encounter Visit Diagnoses Not on filedocumented in this encounter"
--- OUTSIDE RECORDS SUMMARY | ~2019-02-11 | XMS | Encounter Summary ---
Demographics + + + | Address | [address] | | | [place] [address] | + + + | Home Phone [...] Team Providers + +------+ + | Care Operations Clerk Name | Role | Phone | + +------+ + PCP | Unavailable | + +------+ + Encounter Details +--------+ + + + + | Date | Type | Department | Care Team | Description | +--------+ + + + + | 12/25/ | Hospital | [facility] | Saleem Shore, | Rectal cancer (HCC) | | 2014 | Encounter | [facility] | [address] | | | | | INTRA [address] | [address] | | | | | [address]VD [place], [place] | [place] [address] | | | | | [address] | [phone] | | | | | [phone] | | | +--------+ + + + [...] [address] | | | | | | [place] [address] | | | | | | [phone] | | | | | | | | +--------+ + + + + | 02/21/ | Surgery | | Saleem Shore, | COLONOSCOPY | | 2019 | | | MD [address] | | | | | | [address] | | | | | | [place] [address] | | | | | | [phone] | | | | | | | | +--------+ + + + + documented as of this encounter Visit Diagnoses + + | Diagnosis | + + | Rectal cancer (HCC) Malignant neoplasm of rectum | + + documented in this encounter"
--- OUTSIDE RECORDS SUMMARY | ~2019-02-11 | XMS | Clinical Summary ---
Demographics + + + | Address | [address] | | | [place] [address] | + + + | Home Phone [...] Team Providers + +------+ + | Care Edge Burnisher Uppers Name | Role | Phone | + [...] automatically from request for surgery | | [id number] | + + + + + | [...] injection 08/29/08 not helpful. L knee xray ([facility]) - | | chondrocalcinosis. Percocet [...] [address] | | | | | | [place] [address] | | | | | | [phone] | | | | | | | | +--------+ + + + + | 02/21/ | Surgery | | Saleem Shore, | COLONOSCOPY | | 2019 | | | MD [address] | | | | | | [address] | | | | | | [place] [address] | | | | | | [phone] | | | | | | | [...] +--------+ +---------+--------+ | MEDICARE | MEDICA | [id number] | 05/27/19 | [phone] | | Medica | | | RE | | 14-Pre | 5 | | re | | | PART A | | sent | | | | | | AND B | | | | | | + +--------+ +--------+ +---------+--------+ | [employer] | [employer] | [id number] | 02/08/ | [phone] | | [employer] | | MEDICAID HMO [...] | | al/Fam | | 1951 | [phone] | [place] [address] | | | lee | | | 4 (Home) | | + +--------+ +--------+ + + Advance Directives + + + + + | Type | Date Recorded | Patient | Explanation | | | | Photogrammetric Compilation Specialist | | + + + + + | Power of | | | | | Sap Hana Developer | | | | + + + + + | Advance | | | | | Directive | | | | + + + + +
--- OUTSIDE RECORDS SUMMARY | ~2019-02-11 | XMS | Encounter Summary ---
Demographics + + + | Address | [address] | | | [place] [address] | + + + | Home Phone | | + + + | Preferred Language | Unknown | + + + | Marital Status | Single | + + + | Lutheran Affiliation | Unknown | + + + | Race | Unknown | + + + | Ethnic Group | Unknown | + + + Author + + + | Author | [facility] | | | and [place] | + + + | Organization | [facility] | | | [...] Team Providers + +------+ + | Care Singe Winder Name | Role | Phone | + +------+ + PCP | Unavailable | + +------+ + Encounter Details +--------+ + + + + | Date | Type | Department | Care Team | Description | +--------+ + + + + | 12/19/ | Hospital | [facility] | Conversion | | | 2015 | Encounter | [facility] | Transaction, | | | | | CLINIC [address] | Provider Unknown | | | | | [place] | [phone] | | | | | [address] | | | | | | [phone] | | | +--------+ + + + [...] [address] | | | | | | [place] [address] | | | | | | [phone] | | | | | | | | +--------+ + + + + | 02/21/ | Surgery | | Saleem Shore, | COLONOSCOPY | | 2019 | | | MD Rebecca JUSTICE | | | | | | [address] | | | | | | [place] [address] | | | | | | [phone] | | | | | | | [...] EXTERNAL | | | | performed at [facility], [address] | K/uL | LAB | | | | [address], | | | | | | [place] [address] | | | | + + + + + + | RED CELL | 3.89 (L)Comment: Testing | 4.20 - 5.70 | EXTERNAL | | | COUNT | performed at [facility], [address] | M/uL | LAB | | | | [address], | | | | | | [place] [address] | | | | + + + + + + | Hgb | 13.5Comment: Testing | 13.2 - 17.0 | EXTERNAL | | | | performed at [facility], [address] | g/dL | LAB | | | | [address], | | | | | | [place] [address] | | | | + + + + + + | Hematocrit, | 38.8 (L)Comment: Testing | 39.0 - 50.0 % | EXTERNAL | | | POC | performed at [facility], [address] | | LAB | | | | [address], | | | | | | [place] [address] | | | | + + + + + + | MCV | 99.9Comment: Testing | 80.0 - 100.0 fl | EXTERNAL | | | | performed at [facility], [address] | | LAB | | | | [address], | | | | | | [place] [address] | | | | + + + + + + | MCH | 34.7 (H)Comment: Testing | 27.0 - 34.0 pg | EXTERNAL | | | | performed at [facility], [address] | | LAB | | | | [address], | | | | | | [place] [address] | | | | + + + + + + | MCHC | 34.7Comment: Testing | 32.0 - 35.5 | EXTERNAL | | | | performed at [facility], [address] | g/dL | LAB | | | | [address], | | | | | | [place] [address] | | | | + + + + + + | RDW-CV | 44.6Comment: Testing | 37 - 53 fl | EXTERNAL | | | | performed at [facility], [address] | | LAB | | | | [address], | | | | | | [place] [address] | | | | + + + + + + | Platelet | 210Comment: Testing | 150 - 400 K/uL | EXTERNAL | | | Count | performed at [facility], [address] | | LAB | | | Plasma | [address], | | | | | | [place] [address] | | | | + + + + + + | MPV | 8.1Comment: Testing | fl | EXTERNAL | | | | performed at [facility], [address] | | LAB | | | | [address], | | | | | | [place] [address] | | | | + + + + + + | Differentia | AUTOMATEDComment: | | EXTERNAL | | | l Type | Testing performed at | | LAB | | | | [facility], [address] | | | | | | [place] | | | | | | [address] | | | | + + + + + + | % Segmented | 68.31Comment: Testing | % | EXTERNAL | | | | performed at [facility], [address] | | LAB | | | Neutrophils | [address], | | | | | | [place] [address] | | | | + + + + + + | % | 18.84Comment: Testing | % | EXTERNAL | | | Lymphocytes | performed at [facility], [address] | | LAB | | | | [address], | | | | | | [place] [address] | | | | + + + + + + | % Monocytes | 9.10Comment: Testing | % | EXTERNAL | | | | performed at [facility], [address] | | LAB | | | | [address], | | | | | | [place] [id number] | | | | + + + [...] | | | | | | [place] [id number] | | | | + + + + + + | Absolute | 2.54Comment: Testing | 1.90 - 7.40 | EXTERNAL | | | Segmented | performed at [facility], [address] | K/uL | LAB | | | Neutrophils | [address], | | | | | | [place] [address] | | | | + + + + + + | Absolute | 0.70 (L)Comment: Testing | 1.00 - 3.90 | EXTERNAL | | | Lymphocytes | performed at [facility], [address] | K/uL | LAB | | | | [address], | | | | | | [place] [address] | | | | + + + + + + | Absolute | 0.34Comment: Testing | 0.00 - 0.80 | EXTERNAL | | | Monocytes | performed at [facility], [address] | K/uL | LAB | | | | [address], | | | | | | [place] [address] | | | | + + + + + + | Absolute | 0.09Comment: Testing | 0.00 - 0.50 | EXTERNAL | | | Eosinophils | performed at [facility], [address] | K/uL | LAB | | | | [address], | | | | | | [place] [address] | | | | + + + + + + | Absolute | 0.05Comment: Testing | 0.00 - 0.10 | EXTERNAL | | | Basophils | performed at [facility], [address] | K/uL | LAB | | | | [address], | | | | | | [place] [address] | | | | + + + [...] | | | | [place] [address] | | | | + + + + + + | K | 3.9Comment: Testing | 3.5 - 4.9 | EXTERNAL | | | | performed at [facility], [address] | mmol/L | LAB | | | | [address], | | | | | | [place] [address] | | | | + + + + + + | Cl | 102Comment: Testing | 99 - 109 mmol/L | EXTERNAL | | | | performed at [facility], [address] | | LAB | | | | [address], | | | | | | [place] [address] | | | | + + + + + + | CO2 | 29Comment: Testing | 23 - 32 mmol/L | EXTERNAL | | | | performed at [facility], [address] | | LAB | | | | [address], | | | | | | [place] [address] | | | | + + + + + + | Anion Gap | 7Comment: Testing | 5 - 20 mmol/L | EXTERNAL | | | | performed at [facility], [address] | | LAB | | | | [address], | | | | | | [place] [address] | | | | + + + + + + | Glucose, | 90Comment: Testing | 65 - 99 mg/dL | EXTERNAL | | | Fasting | performed at [facility], [address] | | LAB | | | | [address], | | | | | | [place] [address] | | | | + + + + + + | BUN | 8Comment: Testing | 8 - 25 mg/dL | EXTERNAL | | | | performed at [facility], [address] | | LAB | | | | [address], | | | | | | [place] [address] | | | | + + + + + + | Creatinine | 0.63 (L)Comment: Testing | 0.70 - 1.30 | EXTERNAL | | | | performed at [facility], [address] | mg/dL | LAB | | | | [address], | | | | | | [place] [address] | | | | + + + + + + | BUN/Creatin | 13Comment: Testing | | EXTERNAL | | | ine Ratio | performed at [facility], [address] | | LAB | | | | [address], | | | | | | [place] [address] | | | | + + + + + + | Calcium | 8.9Comment: Testing | 8.5 - 10.5 | EXTERNAL | | | | performed at [facility], [address] | mg/dL | LAB | | | | [address], | | | | | | [place] [address] | | | | + + + + + + | Protein, | 6.7Comment: Testing | 6.3 - 8.2 g/dL | EXTERNAL | | | Total | performed at [facility], [address] | | LAB | | | | [address], | | | | | | [place] [address] | | | | + + + + + + | Albumin | 4.0Comment: Testing | 3.3 - 4.8 g/dL | EXTERNAL | | | | performed at [facility], [address] | | LAB | | | | [address], | | | | | | [place] [address] | | | | + + + + + + | Globulin | 2.7Comment: Testing | 1.3 - 4.9 g/dL | EXTERNAL | | | | performed at [facility], [address] | | LAB | | | | [address], | | | | | | [place] [id number] | | | | + + + + + + | A/G Ratio | 1.5Comment: Testing | 1.0 - 2.4 | EXTERNAL | | | | performed at [facility], [address] | | LAB | | | | [address], | | | | | | [place] [id number] | | | | + + + + + + | Bilirubin | 0.6Comment: Testing | 0.1 - 1.5 mg/dL | EXTERNAL | | | Total | performed at [facility], [address] | | LAB | | | | [address], | | | | | | [place] [id number] | | | | + + + + + + | ALP, | 104Comment: Testing | 35 - 115 U/L | EXTERNAL | | | External | performed at [facility], [address] | | LAB | | | | [address], | | | | | | [place] [id number] | | | | + + + + + + | AST | 15Comment: Testing | 10 - 45 U/L | EXTERNAL | | | | performed at [facility], [address] | | LAB | | | | [address], | | | | | | [place] [id number] | | | | + + + + + + | ALT | 14Comment: Testing | 10 - 65 U/L | EXTERNAL | | | | performed at [facility], [address] | | LAB | | | [address], | | | | | | [place] [id number] | | | | + + + [...] | | | | | | [place] [id number] | | | | + + + [...]
--- OUTSIDE RECORDS SUMMARY | ~2019-02-11 | XMS | Encounter Summary ---
Demographics + + + | Address | [address] | | | [place] [address] | + + + | Home Phone [...] Team Providers + +------+ + | Care Crop Pest Control Specialist Name | Role | Phone | + +------+ + PCP | Unavailable | + +------+ + Encounter Details +--------+ + + + + | Date | Type | Department | Care Team | Description | +--------+ + + + + | 12/19/ | Hospital | [facility] | Conversion | | | 2015 | Encounter | [facility] | Transaction, | | | | | CLINIC [address] | Provider Unknown | | | | | [place] | [phone] | | | | | [address] | | | | | | [phone] | | | +--------+ + + + [...] [address] | | | | | | [place] [address] | | | | | | [phone] | | | | | | | | +--------+ + + + + | 02/21/ | Surgery | | Saleem Shore, | COLONOSCOPY | | 2019 | | | MD Rebecca JUSTICE | | | | | | [address] | | | | | | [place] [address] | | | | | | [phone] | | | | | | | [...] EXTERNAL | | | | performed at [facility], [address] | K/uL | LAB | | | | [address], | | | | | | [place] [address] | | | | + + + + + + | RED CELL | 3.89 (L)Comment: Testing | 4.20 - 5.70 | EXTERNAL | | | COUNT | performed at [facility], [address] | M/uL | LAB | | | | [address], | | | | | | [place] [address] | | | | + + + + + + | Hgb | 13.5Comment: Testing | 13.2 - 17.0 | EXTERNAL | | | | performed at [facility], [address] | g/dL | LAB | | | | [address], | | | | | | [place] [address] | | | | + + + + + + | Hematocrit, | 38.8 (L)Comment: Testing | 39.0 - 50.0 % | EXTERNAL | | | POC | performed at [facility], [address] | | LAB | | | | [address], | | | | | | [place] [address] | | | | + + + + + + | MCV | 99.9Comment: Testing | 80.0 - 100.0 fl | EXTERNAL | | | | performed at [facility], [address] | | LAB | | | | [address], | | | | | | [place] [address] | | | | + + + + + + | MCH | 34.7 (H)Comment: Testing | 27.0 - 34.0 pg | EXTERNAL | | | | performed at [facility], [address] | | LAB | | | | [address], | | | | | | [place] [address] | | | | + + + + + + | MCHC | 34.7Comment: Testing | 32.0 - 35.5 | EXTERNAL | | | | performed at [facility], [address] | g/dL | LAB | | | | [address], | | | | | | [place] [address] | | | | + + + + + + | RDW-CV | 44.6Comment: Testing | 37 - 53 fl | EXTERNAL | | | | performed at [facility], [address] | | LAB | | | | [address], | | | | | | [place] [address] | | | | + + + + + + | Platelet | 210Comment: Testing | 150 - 400 K/uL | EXTERNAL | | | Count | performed at [facility], [address] | | LAB | | | Plasma | [address], | | | | | | [place] [address] | | | | + + + + + + | MPV | 8.1Comment: Testing | fl | EXTERNAL | | | | performed at [facility], [address] | | LAB | | | | [address], | | | | | | [place] [address] | | | | + + + + + + | Differentia | AUTOMATEDComment: | | EXTERNAL | | | l Type | Testing performed at | | LAB | | | | [facility], [address] | | | | | | [place] | | | | | | [address] | | | | + + + + + + | % Segmented | 68.31Comment: Testing | % | EXTERNAL | | | | performed at [facility], [address] | | LAB | | | Neutrophils | [address], | | | | | | [place] [address] | | | | + + + + + + | % | 18.84Comment: Testing | % | EXTERNAL | | | Lymphocytes | performed at [facility], [address] | | LAB | | | | [address], | | | | | | [place] [address] | | | | + + + + + + | % Monocytes | 9.10Comment: Testing | % | EXTERNAL | | | | performed at [facility], [address] | | LAB | | | | [address], | | | | | | [place] [address] | | | | + + + + + + | % | 2.36Comment: Testing | % | EXTERNAL | | | Eosinophils | performed at [facility], [address] | | LAB | | | | [address], | | | | | | [place] [address] | | | | + + + + + + | % Basophils | 1.39Comment: Testing | % | EXTERNAL | | | | performed at [facility], [address] | | LAB | | | | [address], | | | | | | [place] [address] | | | | + + + + + + | Absolute | 2.54Comment: Testing | 1.90 - 7.40 | EXTERNAL | | | Segmented | performed at [facility], [address] | K/uL | LAB | | | Neutrophils | [address], | | | | | | [place] [address] | | | | + + + + + + | Absolute | 0.70 (L)Comment: Testing | 1.00 - 3.90 | EXTERNAL | | | Lymphocytes | performed at [facility], [address] | K/uL | LAB | | | | [address], | | | | | | [place] [address] | | | | + + + + + + | Absolute | 0.34Comment: Testing | 0.00 - 0.80 | EXTERNAL | | | Monocytes | performed at [facility], [address] | K/uL | LAB | | | | [address], | | | | | | [place] [address] | | | | + + + + + + | Absolute | 0.09Comment: Testing | 0.00 - 0.50 | EXTERNAL | | | Eosinophils | performed at [facility], [address] | K/uL | LAB | | | | [address], | | | | | | [place] [address] | | | | + + + + + + | Absolute | 0.05Comment: Testing | 0.00 - 0.10 | EXTERNAL | | | Basophils | performed at [facility], [address] | K/uL | LAB | | | | [address], | | | | | | [place] [address] | | | | + + + [...] | | | | [place] [address] | | | | + + + + + + | K | 3.9Comment: Testing | 3.5 - 4.9 | EXTERNAL | | | | performed at [facility], [address] | mmol/L | LAB | | | | [address], | | | | | | [place] [address] | | | | + + + + + + | Cl | 102Comment: Testing | 99 - 109 mmol/L | EXTERNAL | | | | performed at [facility], [address] | | LAB | | | | [address], | | | | | | [place] [address] | | | | + + + + + + | CO2 | 29Comment: Testing | 23 - 32 mmol/L | EXTERNAL | | | | performed at [facility], [address] | | LAB | | | | [address], | | | | | | [place] [address] | | | | + + + + + + | Anion Gap | 7Comment: Testing | 5 - 20 mmol/L | EXTERNAL | | | | performed at [facility], [address] | | LAB | | | | [address], | | | | | | [place] [address] | | | | + + + + + + | Glucose, | 90Comment: Testing | 65 - 99 mg/dL | EXTERNAL | | | Fasting | performed at [facility], [address] | | LAB | | | | [address], | | | | | | [place] [address] | | | | + + + + + + | BUN | 8Comment: Testing | 8 - 25 mg/dL | EXTERNAL | | | | performed at [facility], [address] | | LAB | | | | [address], | | | | | | [place] [address] | | | | + + + + + + | Creatinine | 0.63 (L)Comment: Testing | 0.70 - 1.30 | EXTERNAL | | | | performed at [facility], [address] | mg/dL | LAB | | | | [address], | | | | | | [place] [address] | | | | + + + + + + | BUN/Creatin | 13Comment: Testing | | EXTERNAL | | | ine Ratio | performed at [facility], [address] | | LAB | | | | [address], | | | | | | [place] [address] | | | | + + + + + + | Calcium | 8.9Comment: Testing | 8.5 - 10.5 | EXTERNAL | | | | performed at [facility], [address] | mg/dL | LAB | | | | [address], | | | | | | [place] [address] | | | | + + + + + + | Protein, | 6.7Comment: Testing | 6.3 - 8.2 g/dL | EXTERNAL | | | Total | performed at [facility], [address] | | LAB | | | | [address], | | | | | | [place] [address] | | | | + + + + + + | Albumin | 4.0Comment: Testing | 3.3 - 4.8 g/dL | EXTERNAL | | | | performed at [facility], [address] | | LAB | | | | [address], | | | | | | [place] [address] | | | | + + + + + + | Globulin | 2.7Comment: Testing | 1.3 - 4.9 g/dL | EXTERNAL | | | | performed at [facility], [address] | | LAB | | | | [address], | | | | | | [place] [address] | | | | + + + + + + | A/G Ratio | 1.5Comment: Testing | 1.0 - 2.4 | EXTERNAL | | | | performed at [facility], [address] | | LAB | | | | [address], | | | | | | [place] [address] | | | | + + + + + + | Bilirubin | 0.6Comment: Testing | 0.1 - 1.5 mg/dL | EXTERNAL | | | Total | performed at [facility], [address] | | LAB | | | | [address], | | | | | | [place] [address] | | | | + + + + + + | ALP, | 104Comment: Testing | 35 - 115 U/L | EXTERNAL | | | External | performed at [facility], [address] | | LAB | | | | [address], | | | | | | [place] [address] | | | | + + + + + + | AST | 15Comment: Testing | 10 - 45 U/L | EXTERNAL | | | | performed at [facility], [address] | | LAB | | | | [address], | | | | | | [place] [address] | | | | + + + + + + | ALT | 14Comment: Testing | 10 - 65 U/L | EXTERNAL | | | | performed at [facility], [address] | | LAB | | | | [address], | | | | | | [place] [address] | | | | + + + [...] | | | | | | [place] [address] | | | | + + + [...]
--- OUTSIDE RECORDS SUMMARY | ~2019-02-11 | XMS | Encounter Summary ---
Demographics + + + | Address | [address] | | | [place] [address] | + + + | Home Phone | | + + + | Preferred Language | Unknown | + + + | Marital Status | Single | + + + | Amish Affiliation | Unknown | + + + | Race | Unknown | + + + | Ethnic Group | Unknown | + + + Author + + + | Author | [facility] | | | and [place] | + + + | Organization | [facility] | | [...] Team Providers + +------+ + | Care Coating Manager Name | Role | Phone | + +------+ + PCP | Unavailable | + +------+ + Encounter Details +--------+ + + + + | Date | Type | Department | Care Team | Description | +--------+ + + + + | 01/03/ | Hospital | [facility] | Saleem Shore, | Rectal cancer (HCC); | | 2014 - | Encounter | [facility] | [address] | Persistent atrial | | | | INTENSIVE CARE UNIT | [address] | fibrillation ([facility]); | | 01/25/ | | [address] | [place] [address] | Hyperlipidemia; | | 2015 | | [place], [place] | [phone] | Hyposmolality and/or | | | | [address] | | hyponatremia; Acute | | | | [phone] | | respiratory failure | | | | | | with hypoxia ([facility]) | +--------+ + + + + Social [...] at 01/25/15655 Author: Niesha Duarte MD Service: Surgical Instrument Mechanic Author Type: Physician Filed: 01/25/1517 Date of Service: 01/25/15655 Status: Signed Pensionholder Information Clerk: Niesha Duarte MD (Physician) [facility] Service: Surgical Instrument Mechanic Discharge Summary Jose Eaton 64 y.o. Date [...] Patient Summary: Pt is a 64 y/o [place] Citizen speaking M with past medical history significant [...] Jan 12 2015 12:18AM Referring Provider Line: [phone] ID: [id number] Xr Abdomen For Feeding Tube [...] diaphragm. Montanai dee dee signed by Michael Nixno MD on 01/24/2015 6:38 AM X-ray Chest [...] Jan 20 2015 4:36AM Referring Provider Line: [phone] ID: [id number] X-ray Chest 1 View 01/19/2015 [...] 12 2015 5:22AM Referring Pro vider Line: [phone] ID: [id number] X-ray Chest 1 View 01/12/2015 1. Right lower lobe airspace consolidation. 2. Satisfactory endotracheal and nasogastric tube placement. RADIA Electronically signed by Toribio Gallo MD on Jan 12 2015 12:19AM Referring Provider Line: [phone] ID: [id number] X-ray Chest 1 View 01/12/2015 Right lower lobe airspace consolidation. RADIA Electronically signed by Per Gallo MD on Jan 12 2015 12:01AM Referring Provider Line: [phone] ID: [id number] Ultrasound Abdomen Limited 01/16/2015 1. [...] Jan 12 2015 6:44AM Referring Provider Line: [phone] ID: [id number] Echo Cardiac Adult Complete 01/12/2015 1. Overall left ventricular systolic function is moderately impaired with, an EF between 35 - 40 %. 2. Pseudonormal LV diastolic filling pattern, consistent with elevated LA pressure and moderate dysfunction (Grade II). 3. The right ventricle is normal in size. 4. The right ventricular systolic function is impaired. 5. Moderate mitral regurgitation is present. 6. Lguh-zn-pqgsjdqc tricuspid regurgitation present. 7. There is mild [...] - FLEXIBLE; Surgeon: Saleem Shore MD; Location: [facility]; Service: General; Laterality: N/A; Total hip arthroplasty Bilateral Knee surgery Right Flexible sigmoidoscopy N/A 12/25/2014 Procedure: SIGMOIDOSCOPY - FLEXIBLE; Surgeon: Saleem Shore MD; Location: [facility] ENDO SCOP; Service: General; Laterality: N/A; Robotic assisted laparoscopic colon resection - coloanal N/A 01/03/2015 Procedure: ROBOTIC ASSISTED LAPAROSCOPIC COLON RESECTION - COLOANAL; Surgeon: Saleem chauhan MD; Location: [facility] MA[facility] OR; Service: General; Laterality: N/A; coloanal pull thr ough Flexible sigmoidoscopy N/A 01/03/2015 Procedure: SIGMOIDOSCOPY - FLEXIBLE; Surgeon: Saleem Shore MD; Location: [facility] OR; Service: General; Laterality: N/A; Sigmoidoscopy - rigid N/A 01/03/2015 Procedure: SIGMOIDOSCOPY - RIGID; Surgeon: Saleem Shore MD; Location: [facility] ; Service: General; Laterality: N/A; Flexible bronchoscopy N/A 01/17/2015 Procedure: BRONCHOSCOPY - FLEXIBLE; Surgeon: Lui Lindsey MD; Location: [facility]ED[facility] E PROCEDURE; Service: Surgical Instrument Mechanic; Laterality: N/A; DISCHARGE MEDS Medication List STOP [...] out of bed to chair. Transfer to [facility]. Condition on Discharge: stable Code [...] 01/25/15925 Date of Service: 01/25/15914 Status: Signed Pensionholder Information Clerk: Dolores Coleman RN (Registered Nurse) Report given to TIMOTEO Bowman at in [place]. Family and patient aware of transfer. Dicus [...] at 01/25/15804 Author: Niesha Duarte MD Service: Surgical Instrument Mechanic Author Type: Physician Filed: 01/25/15817 Date of Service: 01/25/15804 Status: Addendum Pensionholder Information Clerk: Niesha Duarte MD (Physician) Related Notes: Original Note by Niesha Duarte MD (Physician) filed at 01/25/15 08 [facility] Service: Surgical Instrument Mechanic Progress Note Jose Eaton 64 y.o. Hospital Day: LOS: 22 days Post-Op Day: 14 Days Post-Op Consulting Physicians Treatment Team: Consulting Physician: Amy Simons MD Consulting Physician: Mario Crawford MD Admitting Provider: Saleem Shore MD SUBJECTIVE Patient Summary: Pt is a 64 y/o [place] Citizen speaking M with past medical history significant [...] Notes by Amy Simons MD at 01/25/15 5428 Author: Amy Simons MD Service: Infectious Disease Author Type: Physician Filed: 01/26/15 1541 Date of Service: 01/25/15 253 Status: Signed Pensionholder Information Clerk: Amy Simons MD (Physician) [facility] Service: Infectious Disease Progress Note Hospital Day: [...] tin, nystatin, [DISCONTINUED] ondansetron OR ondansetron, pancrelipase (Hyg-Dqbt-Pnrr) 1 0,000 units, petrolatum, polyethylene glycol, potassium [...] 01/25/1532 Date of Service: 01/25/15509 Status: Signed Pensionholder Information Clerk: Shanon Pak RN (Registered Nurse) During 4 AM train operations supervisor noticed that pt's small bore NG tube [...] 01/24/151805 Date of Service: 01/24/151804 Status: Signed Pensionholder Information Clerk: Saleem Shore MD (Physician) [facility] Service: Colon & Rectal Surgery Progress Note [...] tin, nystatin, [DISCONTINUED] ondansetron OR ondansetron, pancrelipase (Bcl-Wrzv-Eewh) 1 0,000 units, petrolatum, polyethylene glycol, potassium [...] 01/24/151621 Date of Service: 01/24/151621 Status: Signed Pensionholder Information Clerk: Anna Suresh RD, CD (Registered Dietitian) 01/24/15 7152 Subjective Timepoint Follow up (high risk) Pt c/o Pt remains on room air. Has been c/o abdominal pain but improving. Small bore NG tub e in place. Plan is for pt to go to fluoroscopy this afternoon to advance the tip of the tub e into the jejunum. Fluid / Beverage Intake Oral Fluids Amount NPO Food Intake Amount of Food NPO per LEGGER PRESS OPERATOR. Enteral Nutrition Intake Access NJ tube placement [...] of the pancreas. Pt remains NPO per LEGGER PRESS OPERATOR recommendations. Anthropometrics Weight change Wt is now [...] up date 01/27/[address], CD, [facility] 01/24/2015 onver alex [place], Provider Unknown - 01/24/2015 1:38 PM PDT Therapy Progress Note by Fran Hackett PT at 01/24/15 1223 Author: Fran Hackett PT Service: (none) Author Type: Physical Therapist Filed: 01/24/15 9396 Date of Service: 01/24/151337 Status: Signed Pensionholder Information Clerk: Fran Hackett PT (Physical Therapist) 01/24/15 1338 PT Last Visit PT Received On 01/24/15 Reason for Treatment Deconditioning Requires PT Follow Up Yes Follow up PT Only? Yes Assistance Required 2 person Chief Security Officer Needed Yes Precautions Other Precautions Fall Risk [...] initiate some gait training today with the [facility]). Notes discomfort at times around the [...] Date of Service: 01/24/15 1310 Status: Signed Pensionholder Information Clerk: Choco Hernandez RPH (Pharmacist) >> CHOCO HERNANDEZ 01/24/2015 13:10 TPN day 13, lytes WNL. K is up to 4.8-will decrease K in tpn by 20meq/L. Blood sugars goo d. No other changes. onver alex Transaction, Provider Unknown - 01/24/2015 11:27 AM PDT Therapy Progress Note by Grazyna Buckner MS CCC-LEGGER PRESS OPERATOR at 01/24/151126 Author: Grazyna Buckner MS CCC-LEGGER PRESS OPERATOR Service: (none) Author Type: Speech and Language Patho logist Filed: 01/24/15 1128 Date of Service: 01/24/151126 Status: Signed Pensionholder Information Clerk: Grazyna Buckner MS CCC-LEGGER PRESS OPERATOR (Speech and Language Pathologist) 01/24/15 1100 Swallowing [...] ST informed pt to be transfered to [facility] tomorrow. Staff Notified RN Plan of Care Treatment Plan Continue with current plan Follow up treatments Assessment for upgrade AVS Documentation No LEGGER PRESS OPERATOR Ready for Discharge Not Applicable onver alex Transaction, Provider Unknown - 01/24/2015 9:44 AM PDT Case Management by BRIA Lima at 01/24/15943 Author: BRIA Lima Service: (none) Author Type: Metal Hardener Filed: 01/24/15 1252 Date of Service: 01/24/15943 Status: Addendum Pensionholder Information Clerk: BRIA Lima (Metal Hardener) Related Notes: Original Note by BRIA Lima (Metal Hardener) filed at 01/24/15946 Plan is for pt to transfer to [facility] tomorrow. Await t/c from [facility] time of transfer as she is arranging transportation. Suad Sánchez, RN,CM will be covering the ICU tomorrow. [phone]. Addendum: Faxed updated progress notes, MAR, TPN orders to per their request. Matilde Segundo is planning for a 10:00 coal picker tomorrow. She will call later to confirm the time. iesha Mcgee MD - 01/24/2015 8:13 AM PDTFormatting of this note might be different from t danish original. Progress Notes by Niesha Duarte MD at 01/24/15812 Author: Niesha Duarte MD Service: Surgical Instrument Mechanic Author Type: Physician Filed: 01/24/15916 Date of Service: 01/24/15812 Status: Addendum Pensionholder Information Clerk: Niesha Duarte MD (Physician) Related Notes: Original Note by Niesha Duarte MD (Physician) filed at 01/24/15913 [facility] Service: Surgical Instrument Mechanic Progress Note Jose Eaton 64 y.o. Hospital Day: LOS: 21 days Post-Op Day: 14 Days Post-Op Consulting Physicians Treatment Team: Consulting Physician: Amy Simons MD Consulting Physician: Mario Crawford MD Admitting Provider: Saleem Shore MD SUBJECTIVE Patient Summary: Pt is a 64 y/o [place] Citizen speaking M with past medical history significant [...] NA Disposition: continue ICU care. Transfer to [facility]. Code Status: Full Code Niesha Duarte MD [...] 1830 Date of Service: 01/24/15707 Status: Signed Pensionholder Information Clerk: Amy Simons MD (Physician) [facility] Service: Infectious Disease Progress Note Hospital Day: [...] 01/23/151843 Date of Service: 01/23/151842 Status: Signed Pensionholder Information Clerk: Saleem Shore MD (Physician) [facility] Service: Colon & Rectal Surgery Progress Note [...] Author: BRIA Lima Service: (none) Author Type: Metal Hardener Filed: 01/23/15 1605 Date of Service: 01/23/15 160 Status: Signed Pensionholder Information Clerk: BRIA Lima (Metal Hardener) angela Guadalupe for met with pt's brother and friend. Plan will be to transfer p t to [facility] on Tuesday. Matilde will arrange the transportation to tomorrow. I will place paperwork on pt's chart. onver alex Transaction, Provider Unknown - 01/23/2015 1:03 PM PDT Therapy Progress Note by Kitty Peng MA CCC-LEGGER PRESS OPERATOR at 01/23/15 1303 Author: Kitty Peng MA CCC-LEGGER PRESS OPERATOR Service: (none) Author Type: Speech and Language Patholo gist Filed: 01/23/15 1303 Date of Service: 01/23/15 1303 Status: Signed Pensionholder Information Clerk: Kitty Peng MA CCC-LEGGER PRESS OPERATOR (Speech and Language Pathologist) 01/23/15 1238 Swallowing [...] elevation upon palpation;Thr oat clearing - immediate Inchelium Presentation Spoon Oral Increased Anterior to Posterior [...] Assessment for upgrade;Patient/Family education;Swallow strategies Dysphagia Goals Blocker And Polisher Gold Wheel Goals Advanced diet Pt will advanced diet [...] Date of Service: 01/23/15 1234 Status: Signed Pensionholder Information Clerk: Anna Suresh RD, CD (Registered Dietitian) 01/23/15 [...] Food Intake Amount of Food NPO per LEGGER PRESS OPERATOR. Parenteral Nutrition Intake Access PICC Rate/Solution TPN [...] Estimated Energy Needs Total Energy Estimated Needs 5157-5503 kcal/day Method for Estimating Needs 30-35 kcal/kg [...] 01/23/151118 Date of Service: 01/23/151118 Status: Signed Pensionholder Information Clerk: Choco Hernandez RPH (Pharmacist) TPN day 12, lytes WNL, will adjust chloride/acetate ratio as chloride has been decreasing a nd bicarb increasing, both are still WNL. Blood sugars in the 120's to 130's, will increase insulin in TPN to 65 units/24hr bag. onver aelx Transaction, Provider Unknown - 01/23/2015 9:18 AM PDT Case Management by BRIA Liam at 01/23/15917 Author: BRIA Lima Service: (none) Author Type: Metal Hardener Filed: 01/23/15918 Date of Service: 01/23/15917 Status: Signed Pensionholder Information Clerk: BRIA Lima (Metal Hardener) Attended morning rounds. Pt needs MRI before decision can be made [facility]. Pt is on TPN. Dobhoff to be placed. Pt has mediport and 2 peripheral IV's. Plan is to transfer to [facility] when stable. onver alex Transaction, Provider Unknown - 01/23/2015 8:40 AM PDT Therapy Progress Note by Josafat Streeter PT at 01/23/15 08 Author: Josafat Streeter PT Service: (none) Author Type: Physical Therapist Filed: 01/23/15920 Date of Service: 01/23/15839 Status: Signed Pensionholder Information Clerk: Josafat Streeter PT (Physical Therapist) 01/23/15839 PT [...] 0756 Date of Service: 01/23/15733 Status: Signed Pensionholder Information Clerk: Rahul Valles DO (Physician) [facility] Service: Infectious Disease Progress Note Hospital Day: [...] ed any pain or discomfort through the roofer metal. When asked specifically what is bothering him [...] Beverly at 01/23/15710 Author: JONATHON Beverly Service: Surgical Instrument Mechanic Author Type: Nurse Practitioner Filed: 01/23/15 1312 Date of Service: 01/23/15710 Status: Signed Pensionholder Information Clerk: JONATHON Beverly (Nurse Practitioner) [facility] Service: Surgical Instrument Mechanic Progress Note Jose Eaton 64 y.o. Hospital Day: LOS: 20 days Post-Op Day: 14 Days Post-Op Consulting Physicians Treatment Team: Consulting Physician: Amy Simons MD Consulting Physician: Mario Crawford MD Admitting Provider: Saleem Shore MD SUBJECTIVE Patient Summary: Pt is a 64 y/o [place] Citizen speaking M with past medical history significant [...] of all other procedures. Ebony Lackey MS CCC-LEGGER PRESS OPERATOR - 01/22/2015 11:31 AM PDTFormatting of this note might be different from the orig inal. Therapy Progress Note by Ebony Davenport MS CCC-LEGGER PRESS OPERATOR at 01/22/15 1131 Author: Ebony Davenport MS CCC-LEGGER PRESS OPERATOR Service: (none) Author Type: Speech and Language Pathol ogist Filed: 01/22/15 1132 Date of Service: 01/22/15 113 Status: Signed Pensionholder Information Clerk: Ebony Davenport MS CCC-LEGGER PRESS OPERATOR (Speech and Language Pathologist) 01/22/15 1030 Swallowing [...] laryngeal elevation upon palpation;Cou gh - delayed Inchelium Presentation Cup Oral Increased Anterior to Posterior [...] and didn't want to eat at all. LEGGER PRESS OPERATOR ed re:importance of safe swallowing as pt has p alemmonia from drinking water against MD's order. Pt then stated agreement, however would not take more then 1-3 bites/sips and aspiration risk is high at this time. LEGGER PRESS OPERATOR to con't to re- assess as pt is appropriate. Staff Notified RN Plan of Care Treatment Plan ST to follow;Dysphagia treatment;Daily 4 to 6 times a week Follow up treatments Assessment for upgrade Dysphagia Goals Blocker And Polisher Gold Wheel Goals Advanced diet Pt will advanced diet in 3 days;New/revised goal Short Term Goals Tolerate diet upgrade trials Pt will tolerate diet upgrade trials With 1:1 supervision;New/revised goal EBONY DAVENPORT MS CCC-LEGGER PRESS OPERATOR 01/22/2015 onversion Hernandez saction, Provider Unknown - 01/22/2015 11:14 AM PDTFormatting of this note might be differen t from the original. Progress Notes by Choco Hernandez RPH at 01/22/151113 Author: Choco Hernandez RPH Service: Pharmacy Author Type: Pharmacist Filed: 01/22/151113 Date of Service: 01/22/151113 Status: Signed Pensionholder Information Clerk: Choco Hernandez RPH (Pharmacist) TPN day 11, lytes WNL, blood sugars in the 120's to 150's- will increase insulin in TPN to 60 units/24hr bag, no other changes onver alex Transaction, Provider Unknown - 01/22/2015 9:35 AM PDT Case Management by BRIA Lima at 01/22/15 0982 Author: BRIA Lima Service: (none) Author Type: Metal Hardener Filed: 01/22/15 1548 Date of Service: 01/22/1527 Status: Addendum Pensionholder Information Clerk: BRIA Lima (Metal Hardener) Related Notes: Original Note by BRIA Lima (Metal Hardener) filed at 01/22/15 0933 Attended morning rounds. Pt was extubated yesterday. On room air. On TPN and lipids. Pt t o have swallow eval today and start to mobilize. Received t.c from Thania at [place] yesterday. Pt has been accepted for admit when med ically stable if he does not go to an LTAC first. Dr. Merrill plans to speak with surgeon. If no further concerns, plan will be to transfer pt to [facility] on Tuesday. Faxed updated clinical to angela Nguyen who is coverin g for Matilde Segundo. ([phone], fax: [phone]). Addendum:Mirela Segundo from will be here tomorrow. Per Asya, another liason with [facility], pt will likely be able to transfer on Tuesday. Will need to get official auth for transfer tomorrow. Stalin St MD - 01/22/2015 7:45 AM PDTFormatting of this note might be differ ent from the original. Progress Notes by Stalin Finney MD at 01/22/15 4858 Author: Stalin Finney MD Service: Surgical Instrument Mechanic Author Type: Physician Filed: 01/22/15 1425 Date of Service: 01/22/1541 Status: Signed Pensionholder Information Clerk: Stalin Finney MD (Physician) [facility] Service: Surgical Instrument Mechanic Progress Note Jose Eaton 64 y.o. Hospital Day: LOS: 19 days Post-Op Day: 14 Days Post-Op Consulting Physicians Treatment Team: Consulting Physician: Amy Simons MD Consulting Physician: Mario Crawford MD Admitting Provider: Saleem Shore MD SUBJECTIVE Patient Summary: Pt is a 64 y/o [place] Citizen speaking M with past medical history significant [...] Intake/Output Summary (Last 24 hours) at 01/22/15 0704 Last data filed at 01/22/15 0631 Gross [...] Jan 12 2015 6:44AM Referring Provider Line: [phone] ID: [id number] Echo Cardiac Adult Complete 01/12/2015 1. Overall left ventricular systolic function is moderately impaired with, an EF between 35 - 40 %. 2. Pseudonormal LV diastolic filling pattern, consistent with elevated LA pressure and moderate dysfunction (Grade II). 3. The right ventricle is normal in size. 4. The right ventricular systolic function is impaired. 5. Moderate mitral regurgitation is present. 6. Bzim-ve-woocuamm tricuspid regurgitation present. 7. There is mild [...] 01/22/15727 Date of Service: 01/22/15707 Status: Signed Pensionholder Information Clerk: Rahul Valles DO (Physician) [facility] Service: Infectious Disease Progress Note Hospital Day: [...] 01/21/151838 Date of Service: 01/21/151835 Status: Signed Pensionholder Information Clerk: Saleem Shore MD (Physician) [facility] Service: Colon & Rectal Surgery Progress Note [...] 1053 Date of Service: 01/21/151051 Status: Signed Pensionholder Information Clerk: Choco Hernandez RPH (Pharmacist) TPN day 10, lytes WNL. Blood sugars 140's to 160's- will increase insulin in TPN to 55 uni ts/24hr bag. No other changes. onver alex Transaction, Provider Unknown - 01/21/2015 7:52 AM PDT Progress Notes by JESSICA Colin at 01/21/15751 Author: JESSICA Colin Service: Surgical Instrument Mechanic Author Type: Medical Student Filed: 01/21/151701 Date of Service: 01/21/15751 Status: Attested Pensionholder Information Clerk: JESSICA Colin (Medical Student) Cosigner: Stalin Finney [...] MD Pulmonary and Critical Care Medicine [facility] 01/21/15 6:48PM *Please bill 40 minutes of critical care time spent evaluating the patient, reviewing the d jose guadalupe and formulating a plan exclusive of all other procedures. [facility] Service: Surgical Instrument Mechanic Progress Note Jose Uma 64 y.o. Hospital Day: LOS: 18 days Post-Op Day: 4 Days Post-Op Consulting Physicians Treatment Team: Consulting Physician: Amy Simons MD Consulting Physician: Mario Crawford MD Admitting Provider: Saleem Shore MD SUBJECTIVE Patient Summary: Pt is a 64 y/o [place] Citizen speaking M with past medical history significant [...] 01/21/15713 Date of Service: 01/21/15702 Status: Signed Pensionholder Information Clerk: Rahul Valles DO (Physician) [facility] Service: Infectious Disease Progress Note Hospital Day: [...] Note by Abilio Alba RN at 01/20/15 5747 Author: Abilio Alba RN Service: (none) Author Type: Registered Nurse Filed: 01/20/15 347 Date of Service: 01/20/151758 Status: Signed Pensionholder Information Clerk: Abilio Alba RN (Registered Nurse) Sedation holiday [...] 01/20/151644 Date of Service: 01/20/151641 Status: Signed Pensionholder Information Clerk: Abilio Alba RN (Registered Nurse) Mediport would [...] Author: BRIA Lima Service: (none) Author Type: Metal Hardener Filed: 01/20/15 154 Date of Service: 01/20/151538 Status: Signed Pensionholder Information Clerk: BRIA Lima (Metal Hardener) Met with pt's brother and some friends via roofer metal. Discussed possibility of pt needin g and LTAC and the benefits of going to one. Also discussed SNF if LTAC is not needed. Bro ther and friend indicate that they want what is best for pt. LTAC options were discussed and they indicated that they are agreeable to [facility] in [place]. Brother asked if jayeluigi dixon make a referral to [facility] as opposed to [facility] as pt [...] (none) Author Type: Physical Therapist Filed: 01/20/15 7784 Date of Service: 01/20/151421 Status: Signed Pensionholder Information Clerk: Kelli Belle PT (Physical Therapist) 01/20/151421 PT Last Visit PT Received On 01/20/15 Reason for Treatment Deconditioning Requires PT Follow Up Awaiting tx order Follow up PT Only? Yes PT Eval/Reassessment Date 01/20/15 Assistance Required 2 person Home Environment Type of Home Home one story Additional Comments Family provided home information. Prior Function Level of [place] Independent with functional mobility;Independent with ADLs (pt [...] with skilled therapy intervention;Limited by multiple medical iGrow - Dein Lernprogramm im Leben plMydeo Safety Devices Safety Devices in Place (RN [...] Date of Service: 01/20/15 134 Status: Signed Pensionholder Information Clerk: Anna Suresh RD, CD (Registered Dietitian) 01/20/15 [...] output overnight. Skin Skin remains intact - embossing toolsetter to re-eval. Anthropometrics Weight change No new [...] 1056 Date of Service: 01/20/151055 Status: Signed Pensionholder Information Clerk: Choco Hernandez RPH (Pharmacist) TPN day 9, Bicard 22- will increase acetate in TPN. Other Lytes WNL. Blood sugars in 110's to 140's. Per nurse recruiter recs will increase Dextrose from 18% to 22%. Will increase insulin from 30 units to 45 units/24hr bag. No other changes. Shara Benavidez MS CCC-LEGGER PRESS OPERATOR - 01/20/2015 10:05 AM PDTFormatting of this note might be different f rom the original. Therapy Progress Note by Shara Davila MS CCC-LEGGER PRESS OPERATOR at 01/20/15 1005 Author: Shara Davila MS CCC-LEGGER PRESS OPERATOR Service: (none) Author Type: Speech and Language Pa thologist Filed: 01/20/15 1013 Date of Service: 01/20/15 1005 Status: Signed Pensionholder Information Clerk: Shara Davila MS CCC-LEGGER PRESS OPERATOR (Speech and Language Pathologist) 01/20/15 1005 LEGGER PRESS OPERATOR Last Visit LEGGER PRESS OPERATOR Received On 01/20/15 Requires LEGGER PRESS OPERATOR Follow Up Unavailable (Intubated- plan for extubation in the afternoon.) onversio n Transaction, Provider Unknown - 01/20/2015 9:19 AM PDTFormatting of this note might be di fferent from the original. Case Management by BRIA Lima at 01/20/15918 Author: BRIA Lima Service: (none) Author Type: Metal Hardener Filed: 01/20/15929 Date of Service: 01/20/15918 Status: Addendum Pensionholder Information Clerk: BRIA Lima (Metal Hardener) Related Notes: Original Note by BRIA Lima (Metal Hardener) filed at 01/20/15923 Attended morning rounds. Pt [...] Service: Cardiology Author Type: Physician Filed: 01/20/15 6246 Date of Service: 01/20/15838 Status: Signed Pensionholder Information Clerk: Mario Crawford MD (Physician) [facility] Service: Cardiology Progress Note Hospital Day: LOS: 17 days Post-Op Day: 3 Days Post-Op SUBJECTIVE Patient Summary: 64 y.o. male with no previous cardiac history. He was admitted to [facility] for elective surgery on 01/03/15 for invasive [...] - FLEXIBLE; Surgeon: Saleem Shore MD; Location: [facility]; Service: General; Laterality: N/A; Total hip arthroplasty Bilateral Knee surgery Right Flexible sigmoidoscopy N/A 12/25/2014 Procedure: SIGMOIDOSCOPY - FLEXIBLE; Surgeon: Saleem Shore MD; Location: [facility]; Service: General; Laterality: N/A; Robotic assisted laparoscopic colon resection - coloanal N/A 01/03/2015 Procedure: ROBOTIC ASSISTED LAPAROSCOPIC COLON RESECTION - COLOANAL; Surgeon: Saleem chauhan MD; Location: [facility]; Service: General; Laterality: N/A; coloanal pull thr ough Flexible sigmoidoscopy N/A 01/03/2015 Procedure: SIGMOIDOSCOPY - FLEXIBLE; Surgeon: Saleem Shore MD; Location: [facility]; Service: General; Laterality: N/A; Sigmoidoscopy - rigid N/A 01/03/2015 Procedure: SIGMOIDOSCOPY - RIGID; Surgeon: Saleem Shore MD; Location: [facility] ; Service: General; Laterality: N/A; Flexible bronchoscopy N/A 01/17/2015 Procedure: BRONCHOSCOPY - FLEXIBLE; Surgeon: Lui Lindsey MD; Location: [facility]; Service: Surgical Instrument Mechanic; Laterality: N/A; Allergies Allergen Reactions Seasonal Allergies [Other-Environmental] Itching Scheduled Medications ampicillin-sulbactam 3 g Intravenous Q6H digoxin 0.25 mg Intravenous Daily fat emulsion 250 mL Intravenous Daily furosemide 40 mg Intravenous BID heparin (porcine) 5000 unit/0.5mL 5,000 Units Subcutaneous Q8H insulin aspart 0-16 Units Subcutaneous 4 times per day levofloxacin 500 mg Intravenous Q24H lidocaine buffered 1% 0.5 mL Intradermal Once uvtibbkz-gbheyxnllr-mhtxjxcqe Ophthalmic 4 times per day nystatin 5 mL Oral 4x Daily pantoprazole 40 mg Intravenous QAM AC Continuous Infusions dexmedetomidine in NS 1 mcg/kg/hr (01/20/15 0796) fentaNYL in NS 5 mcg/mL 150 mcg/hr (01/20/15 3875) norepinephrine in D5W 64 mcg/mL 4 mcg/min (01/17/15 8958) TPN ADULT 75 mL/hr at 01/19/15 6693 PRN Medications acetaminophen, albuterol, dextrose, dextrose, HYDROmorphone [...] ect that he has had an acute VA. The inferior infarct cited on his EKG [...] Progress Notes by JESSICA Colin at 01/20/15 3334 Author: JESSICA Colin Service: Surgical Instrument Mechanic Author Type: Medical Student Filed: 01/20/15 8204 Date of Service: 01/20/15 9000 Status: Attested Pensionholder Information Clerk: JESSICA Colin (Medical Student) Cosigner: Stalin Finney MD at 01/20/15 7890 Attestation signed by Stalin Finney MD at 01/20/15 7332 I have seen and examined the patient and discussed the findings and overall plan with JESSICA Salvador. I agree with the above note. *Please bill 35 minutes of critical care time spent evaluating the patient, reviewing the d jose guadalupe and formulating a plan exclusive of all other procedures. Stalin Finney MD Pulmonary and Critical Care Medicine [facility] 01/20/15 4:05PM [facility] Service: Surgical Instrument Mechanic Progress Note Jose Eaton 64 y.o. Hospital Day: LOS: 17 days Post-Op Day: 3 Days Post-Op Consulting Physicians Treatment Team: Consulting Physician: Amy Simons MD Consulting Physician: Mario Crawford MD Admitting Provider: Saleem Shore MD SUBJECTIVE Patient Summary: Pt is a 64 y/o [place] Citizen speaking M with past medical history significant [...] lidocaine buffered 1% 0.5 mL Intradermal Once cendxnwf-zrqwijblmv-widkprjws Ophthalmic 4 times per day nystatin 5 mL Oral 4x Daily pantoprazole 40 mg Intravenous QAM AC CONTINUOUS INFUSIONS dexmedetomidine in NS 1 mcg/kg/hr (01/20/15 0718) fentaNYL in NS 5 mcg/mL 150 mcg/hr (01/20/15 1715) norepinephrine in D5W 64 mcg/mL 4 mcg/min (01/17/15 5596) TPN ADULT 75 mL/hr at 01/19/15 5313 OBJECTIVE VITAL SIGNS Temp: [98.4 F (36.9 [...] Jan 20 2015 4:36AM Referring Provider Line: [phone] ID: [id number] Ct Chest Without Contrast 01/19/2015 [...] 01/20/15716 Date of Service: 01/20/15699 Status: Signed Pensionholder Information Clerk: Rahul Valles DO (Physician) [facility] Service: Infectious Disease Progress Note Hospital Day: [...] lidocaine buffered 1% 0.5 mL Intradermal Once zrgdvaye-kybmfsfszu-ctngybldk Ophthalmic 4 times per day nystatin 5 mL Oral 4x Daily pantoprazole 40 mg Intravenous QAM AC Continuous Infusions dexmedetomidine in NS 1 mcg/kg/hr (01/20/15 0130) fentaNYL in NS 5 mcg/mL 150 mcg/hr (01/20/15 0415) norepinephrine in D5W 64 mcg/mL 4 mcg/min (01/17/15 3688) TPN ADULT 75 mL/hr at 01/19/15 2353 [...] Date of Service: 01/19/15 114 Status: Signed Pensionholder Information Clerk: Saleem Shore MD (Physician) [facility] Service: Colon & Rectal Surgery Progress Note [...] per day levofloxacin 500 mg Intravenous Q24H qjinoznc-qjmdeylkwi-zaxenawbd Ophthalmic 4 times per day nystatin 5 [...] Saleem Shore MD 01/19/2015 innea Barraza, MS CCC-LEGGER PRESS OPERATOR - 01/19/2015 10:21 AM PDTFormatting of this note might be different from the o riginal. Therapy Progress Note by Linnea Barraza MA CCC-LEGGER PRESS OPERATOR at 01/19/15 1021 Author: Linnea Barraza MA CCC-LEGGER PRESS OPERATOR Service: (none) Author Type: Speech and Language Pathologist Filed: 01/19/15 1021 Date of Service: 01/19/15 1021 Status: Signed Pensionholder Information Clerk: Linnea Barraza MA CCC-LEGGER PRESS OPERATOR (Speech and Language Pathologist) 01/19/15 1020 LEGGER PRESS OPERATOR Last Visit LEGGER PRESS OPERATOR Received On 01/19/15 Requires LEGGER PRESS OPERATOR Follow Up On hold (pt reintubated) unanan, Stalin Allen MD - 01/19/2015 10:10 AM PDTFormatting of this note might be differen t from the original. Progress Notes by Stalin Finney MD at 01/19/15 1010 Author: Stalin Finney MD Service: Surgical Instrument Mechanic Author Type: Physician Filed: 01/19/15 1214 Date of Service: 01/19/15 1010 Status: Signed Pensionholder Information Clerk: Stalin Finney MD (Physician) [facility] Service: Surgical Instrument Mechanic Progress Note Jose Eatno 64 y.o. Hospital Day: LOS: 16 days Post-Op Day: 14 Days Post-Op Consulting Physicians Treatment Team: Consulting Physician: Amy Simons MD Consulting Physician: Mario Crawford MD Admitting Provider: Saleem Shore MD SUBJECTIVE Patient Summary: Pt is a 64 y/o [place] Citizen speaking M with past medical history significant [...] per day levofloxacin 500 mg Intravenous Q24H halgyzra-awsyktsooi-hhwaxofpe Ophthalmic 4 times per day nystatin 5 [...] Jan 12 2015 6:44AM Referring Provider Line: [phone] ID: [id number] Echo Cardiac Adult Complete 01/12/2015 1. Overall left ventricular systolic function is moderately impaired with, an EF between 35 - 40 %. 2. Pseudonormal LV diastolic filling pattern, consistent with elevated LA pressure and moderate dysfunction (Grade II). 3. The right ventricle is normal in size. 4. The right ventricular systolic function is impaired. 5. Moderate mitral regurgitation is present. 6. Lsqx-ql-lrqwyskd tricuspid regurgitation present. 7. There is mild [...] 01/19/1528 Date of Service: 01/19/15699 Status: Signed Pensionholder Information Clerk: Rahul Valles DO (Physician) [facility] Service: Infectious Disease Progress Note Hospital Day: [...] per day levofloxacin 500 mg Intravenous Q24H uwfxdcfo-nwevadrvzu-bnzmdtrnp Ophthalmic 4 times per day nystatin 5 [...] similar results noted on previous sputum culture [facility] only grew Escherichia coli. Medical imaging: This [...] 01/19/15647 Date of Service: 01/19/15647 Status: Signed Pensionholder Information Clerk: Basilia Ortiz RPH (Pharmacist) TPN notes day [...] Notes by Stalin Finney MD at 01/18/15 7289 Author: Stalin Finney MD Service: Surgical Instrument Mechanic Author Type: Physician Filed: 01/18/15 7396 Date of Service: 01/18/15 2499 Status: Signed Pensionholder Information Clerk: Stalin Finney MD (Physician) [facility] Service: Surgical Instrument Mechanic Progress Note Jose Eaton 64 y.o. Hospital Day: LOS: 15 days Post-Op Day: 14 Days Post-Op Consulting Physicians Treatment Team: Consulting Physician: Amy Simons MD Consulting Physician: Mario Crawford MD Admitting Provider: Saleem Shore MD SUBJECTIVE Patient Summary: Pt is a 64 y/o [place] Citizen speaking M with past medical history significant [...] per day levofloxacin 500 mg Intravenous Q24H zqvevpvk-ybjokpetdf-xrblfhoce Ophthalmic 4 times per day nystatin 5 [...] Jan 12 2015 6:44AM Referring Provider Line: [phone] ID: [id number] Echo Cardiac Adult Complete 01/12/2015 1. Overall left ventricular systolic function is moderately impaired with, an EF between 35 - 40 %. 2. Pseudonormal LV diastolic filling pattern, consistent with elevated LA pressure and moderate dysfunction (Grade II). 3. The right ventricle is normal in size. 4. The right ventricular systolic function is impaired. 5. Moderate mitral regurgitation is present. 6. Zzpo-vz-luwdxfyy tricuspid regurgitation present. 7. There is mild [...] 01/18/151214 Date of Service: 01/18/151212 Status: Signed Pensionholder Information Clerk: Saleem Shore MD (Physician) [facility] Service: Colon & Rectal Surgery Progress Note [...] per day levofloxacin 500 mg Intravenous Q24H ycwepjgo-qmkskxkssv-khmdggbzk Ophthalmic 4 times per day nystatin 5 [...] Rehab Author Type: Physical Therapist Filed: 01/18/15 3037 Date of Service: 01/18/15821 Status: Signed Pensionholder Information Clerk: Nba Strong PT (Physical Therapist) 01/18/15821 PT [...] 01/18/15705 Date of Service: 01/18/15705 Status: Signed Pensionholder Information Clerk: Basilia Ortiz RPH (Pharmacist) TPN day 8: [...] 01/18/15716 Date of Service: 01/18/15705 Status: Signed Pensionholder Information Clerk: Rahul Valles DO (Physician) [facility] Service: Infectious Disease Progress Note Hospital Day: [...] 1% 5 mL Intradermal STAT - Now mhmldqxm-uiuqnbxgwt-phbdvgcrn Ophthalmic 4 times per day nystatin 5 [...] 01/17/151946 Date of Service: 01/17/151940 Status: Signed Pensionholder Information Clerk: Saleem Shore MD (Physician) [facility] Service: Colon & Rectal Surgery Progress Note [...] Code Saleem Shore MD 01/17/2015 llsharmaine, ANGEL Torer P - 01/17/2015 6:00 PM PDT Progress Notes by Jcarlos Lawson RN at 01/17/15 1800 Author: Jcarlos Lawson RN Service: (none) Author Type: Registered Nurse Filed: 01/17/15 0909 Date of Service: 01/17/15 1800 Status: Signed Pensionholder Information Clerk: Jcarlos Lawson RN (Registered Nurse) Roro david staffing recruiter assisted patient with reposition onversion Transacti on, Provider Unknown - 01/17/2015 5:54 PM PDTFormatting of this note might be different fro m the original. Progress Notes by Dwight Godoy at 01/17/151753 Author: Dwight Godoy Service: (none) Author Type: Filed: 01/17/151753 Date of Service: 01/17/151753 Status: Signed Pensionholder Information Clerk: Dwight Godoy () Attempted visit. Pt intubated and sleeping. Chaplain Sancho onver alex Transaction, Provider Unknown - 01/17/2015 3:54 PM PDT Progress Notes by Asya Chauhan RD at 01/17/151553 Author: Asya Chauhan RD Service: (none) Author Type: Registered Dietitian Filed: 01/17/151554 Date of Service: 01/17/151553 Status: Signed Pensionholder Information Clerk: Asya Chauhan RD (Registered Dietitian) 01/17/15 2906 Subjective Timepoint Follow up Pt c/o Pt [...] Follow up date 01/20/15 Elisa Allen MS CCC-LEGGER PRESS OPERATOR - 01/17/2015 12:15 PM PDTFormatting of this note might be different fr om the original. Therapy Progress Note by Elisa Lawson MS CCC-LEGGER PRESS OPERATOR at 01/17/15 1215 Author: Elisa Lawson MS CCC-LEGGER PRESS OPERATOR Service: (none) Author Type: Speech Therapist Filed: 01/17/15 4796 Date of Service: 01/17/151214 Status: Signed Pensionholder Information Clerk: Elisa Lawson MS CCC-LEGGER PRESS OPERATOR (Speech Therapist) 01/17/15 1215 Swallowing Assessment Eval [...] monitoring;Patient/Family education; Assessment for upgrade Dysphagia Goals Blocker And Polisher Gold Wheel Goals Safe/efficient oral intake Pt will have safe/efficient oral intake Thin liquids;New/revised goal Short Term Goals Tolerate liquid consistency Pt will tolerate tolerate liquid consistency Thin liquids;With max supervision;New/revised goal in-house roofer metal unavailable and computer roofer metal unavailable, family used Tj, John Garcia MD - 01/17/2015 11:50 AM PDTFormatting of this note might be different from the chantella l. Progress Notes by Mario Crawford MD at 01/17/15 1150 Author: Mario Crawford MD Service: Cardiology Author Type: Physician Filed: 01/17/15 1203 Date of Service: 01/17/15 1150 Status: Signed Pensionholder Information Clerk: Mario Crawford MD (Physician) [facility] Service: Cardiology Progress Note Hospital Day: LOS: 14 days Post-Op Day: 14 Days Post-Op SUBJECTIVE Patient Summary: 64 y.o. male with no previous cardiac history. He was admitted to [facility] for elective surgery on 01/03/15 for invasive [...] - FLEXIBLE; Surgeon: Saleem Shore MD; Location: [facility]; Service: General; Laterality: N/A; Total hip arthroplasty Bilateral Knee surgery Right Flexible sigmoidoscopy N/A 12/25/2014 Procedure: SIGMOIDOSCOPY - FLEXIBLE; Surgeon: Slaeem Shore MD; Location: [facility]; Service: General; Laterality: N/A; Robotic assisted laparoscopic colon resection - coloanal N/A 01/03/2015 Procedure: ROBOTIC ASSISTED LAPAROSCOPIC COLON RESECTION - COLOANAL; Surgeon: Saleem chauhan MD; Location: [facility]; Service: General; Laterality: N/A; coloanal pull thr ough Flexible sigmoidoscopy N/A 01/03/2015 Procedure: SIGMOIDOSCOPY - FLEXIBLE; Surgeon: Saleem Shore MD; Location: [facility]; Service: General; Laterality: N/A; Sigmoidoscopy - rigid N/A 01/03/2015 Procedure: SIGMOIDOSCOPY - RIGID; Surgeon: Saleem Shore MD; Location: [facility] ; Service: General; Laterality: [...] ect that he has had an acute VA. The inferior infarct cited on his EKG [...] Status: Full Code Bo Lopez D.O., of [facility] will be available over the [...] Date of Service: 01/17/15 105 Status: Signed Pensionholder Information Clerk: Choco Hernandez RPH (Pharmacist) TPN day 7, [...] Date of Service: 01/17/15 1000 Status: Signed Pensionholder Information Clerk: Jcarlos Lawson RN (Registered Nurse) With patient in Nuc. Med department for HIDA scan. VSS onversion Transacti on, Provider Unknown - 01/17/2015 7:43 AM PDTFormatting of this note might be different fro m the original. Progress Notes by Rubia Regan, MS-4 at 01/17/15 0743 Author: Rubia Regan, MS-4 Service: Surgical Instrument Mechanic Author Type: Medical Student Filed: 01/17/15 1141 Date of Service: 01/17/15742 Status: Attested Pensionholder Information Clerk: Rubia Regan, MS-4 (Medical Student) Cosigner: Niesha [...] and formulating a plan exclusive of procedures. [facility] Service: Surgical Instrument Mechanic Progress Note Jose Eaton 64 y.o. Hospital Day: LOS: 14 days Post-Op Day: 14 Days Post-Op Consulting Physicians Treatment Team: Consulting Physician: Amy Simons MD Consulting Physician: Mario Crawford MD Admitting Provider: Saleem Shore MD SUBJECTIVE Patient Summary: Pt is a 64 y/o [place] Citizen speaking M with past medical history significant [...] Intake/Output Summary (Last 24 hours) at 01/17/15 0721 Last data filed at 01/17/15 0535 Gross [...] Jan 12 2015 6:44AM Referring Provider Line: [phone] ID: [id number] Echo Cardiac Adult Complete 01/12/2015 1. Overall left ventricular systolic function is moderately impaired with, an EF between 35 - 40 %. 2. Pseudonormal LV diastolic filling pattern, consistent with elevated LA pressure and moderate dysfunction (Grade II). 3. The right ventricle is normal in size. 4. The right ventricular systolic function is impaired. 5. Moderate mitral regurgitation is present. 6. Vvms-wm-krjujizf tricuspid regurgitation present. 7. There is mild [...] full dose Lovenox pending HIDA scan results. Jigger Machine Operator Dr. Crawford consulted, following. Recommends avoiding dobutamine [...] Rubia Jass, MS-4 01/17/2015 Electronically signed by [facility] Transaction, Provider at 11/19/2018 5:46 PM Rahul Larios DO - 01/17/2015 6:41 AM PDTFormatting of this note might be different from the randolph ginal. Progress Notes by Rahul Valles DO at 01/17/15640 Author: Rahul Valles DO Service: (none) Author Type: Physician Filed: 01/17/15 0702 Date of Service: 01/17/15640 Status: Signed Pensionholder Information Clerk: Rahul Valles DO (Physician) [facility] Service: Infectious Disease Progress Note Hospital Day: [...] Therapy Progress Note by Kitty Peng MA CCC-LEGGER PRESS OPERATOR at 01/16/151531 Author: Kitty Peng MA CCC-LEGGER PRESS OPERATOR Service: (none) Author Type: Speech and Language Patholo gist Filed: 01/16/151531 Date of Service: 01/16/151531 Status: Signed Pensionholder Information Clerk: Kitty Peng MA CCC-LEGGER PRESS OPERATOR (Speech and Language Pathologist) 01/16/15 1532 LEGGER PRESS OPERATOR Last Visit LEGGER PRESS OPERATOR Received On 01/16/15 Requires LEGGER PRESS OPERATOR Follow Up On hold Per RN pt not appropriate for swallow at this time. ST to check back tomorrow. Aubrie Fitzgerald MD - 01/16/2015 2:43 PM PDT Progress Notes by Aubrie Linton MD at 01/16/15 1443 Author: Aubrie Linton MD Service: Infectious Disease Author Type: Physician Filed: 01/16/15 191 Date of Service: 01/16/15 1443 Status: Signed Pensionholder Information Clerk: Aubrie Linton MD (Physician) [facility] Service: Infectious Disease Progress Note Hospital Day: [...] POSITIVE COCCIP GRAM STAIN Testing performed at [facility], [address], [place] [address]S CULTURE PENDINGP Resulting Agency [facility] Specimen Collected: 01/12/15 7:55 AM Impression 1. Stable right perihilar and basilar airspace disease. 2. Mild stable left basilar opacity to likely represent subsegmental atelectasis. X-ray chest 1 view [[id number]] PROBLEM LIST Principal Problem: Atrial fibrillation with [...] 1446 Date of Service: 01/16/157 Status: Signed Pensionholder Information Clerk: Kelli Belle PT (Physical Therapist) 01/16/15 1417 [...] Date of Service: 01/16/15 1258 Status: Signed Pensionholder Information Clerk: Saleem Shore MD (Physician) [facility] Service: Colon & Rectal Surgery Progress Note [...] Notes by Choco Hernandez RPH at 01/16/15 3628 Author: Choco Hernandez RPH Service: Pharmacy Author Type: Pharmacist Filed: 01/16/15 5681 Date of Service: 01/16/15 8643 Status: Signed Pensionholder Information Clerk: Choco Hernandez RPH (Pharmacist) TPN day 6, Lytes WNL, Patient is still on endotool insulin drip. No changes in TPN formula. Patient is at goal of AA 6% + D18% at 75ml/hr. onver alex Transaction, Provider Unknown - 01/16/2015 10:27 AM PDT Case Management by BRIA Lima at 01/16/15 1027 Author: BRIA Lima Service: (none) Author Type: Metal Hardener Filed: 01/16/15 1034 Date of Service: 01/16/15 1027 Status: Signed Pensionholder Information Clerk: BRIA Lima (Metal Hardener) Attended morning rounds. Pt was extubated. Brother and friend are in pt's room. Cardiolog y to consult. onver alex Transaction, Provider Unknown - 01/16/2015 8:35 AM PDT Progress Notes by JESSICA Colin at 01/16/1539 Author: JESSICA Colin Service: Surgical Instrument Mechanic Author Type: Medical Student Filed: 01/16/15 9571 Date of Service: 01/16/15834 Status: Attested Pensionholder Information Clerk: JESSICA Colin (Medical Student) Cosigner: Niesha Duarte MD at 01/16/151756 Attestation signed by Niesha Duarte MD at 01/16/151756 Plan of care discussed with Rubia. I agree with the physical examination and management as documented. Please bill 40 minutes of critical care time spent evaluating the patient, reviewing the da ta and formulating a plan exclusive of procedures. [facility] Service: Surgical Instrument Mechanic Progress Note [facility] Eaton 64 [facility] [...] Jan 12 2015 6:44AM Referring Provider Line: [phone] ID: [id number] Echo Cardiac Adult Complete 01/12/2015 1. Overall left ventricular systolic function is moderately impaired with, an EF between 35 - 40 %. 2. Pseudonormal LV diastolic filling pattern, consistent with elevated LA pressure and moderate dysfunction (Grade II). 3. The right ventricle is normal in size. 4. The right ventricular systolic function is impaired. 5. Moderate mitral regurgitation is present. 6. Bztx-bz-squoufgo tricuspid regurgitation present. 7. There is mild [...] 0711 Date of Service: 01/15/151999 Status: Signed Pensionholder Information Clerk: Francisca Caraballo RN (Registered Nurse) Report from day RN, POC discussed, armband verified with MAR, allergies and code status not ed. Pt sedated, vented, will open eyes to voice and follow commands weakly on all four extre mities. [place] Citizen primary language. Pt eyes are red and [...] MD about hemodynamics, no new orders received. [id number] Pt continues to moan and want more [...] 01/15/151705 Date of Service: 01/15/151703 Status: Signed Pensionholder Information Clerk: Saleem Shore MD (Physician) [facility] Service: Colon & Rectal Surgery Progress Note [...] atin, nystatin, [DISCONTINUED] ondansetron OR ondansetron, pancrelipase (Wql-Jdsj-Dspl) 10,000 units, petrolatum, polyethylene glycol, potassium chloride [...] Date of Service: 01/15/15 1250 Status: Signed Pensionholder Information Clerk: Kelli Belle PT (Physical Therapist) 01/15/15 1250 PT Last Visit PT Received On 01/15/15 Requires PT Follow Up On hold (Pt remains intubated/sedated) Aubrie Fitzgerald MD - 01/15/2015 12:40 PM PDT Progress Notes by Aubrie Linton MD at 01/15/15 1240 Author: Aubrie Linton MD Service: Infectious Disease Author Type: Physician Filed: 01/15/15 8690 Date of Service: 01/15/151239 Status: Signed Pensionholder Information Clerk: Aubrie Linton MD (Physician) [facility] Service: Infectious Disease Progress Note Hospital Day: [...] POSITIVE COCCIP GRAM STAIN Testing performed at [facility], [address], [place] [address] CULTURE PENDINGP Resulting Agency [facility] Specimen Collected: 01/12/15 7:55 AM Impression 1. Stable right perihilar and basilar airspace disease. 2. Mild stable left basilar opacity to likely represent subsegmental atelectasis. X-ray chest 1 view [[id number]] PROBLEM LIST Principal Problem: Atrial fibrillation with [...] (none) Author Type: Registered Dietitian Filed: 01/15/15 9152 Date of Service: 01/15/15 1239 Status: Signed Pensionholder Information Clerk: Anna Suresh RD, CD (Registered Dietitian) 01/15/15 1220 Subjective Timepoint Follow up (adjust TPN, start [...] up date 01/18/[address], CD, [facility] 01/15/2015 onver alex Transaction, Provider Unknown - 01/15/2015 12:22 PM PDT Progress Notes by Choco Hernandez RPH at 01/15/151221 Author: Choco Hernandez RPH Service: Pharmacy Author Type: Pharmacist Filed: 01/15/151221 Date of Service: 01/15/151221 Status: Signed Pensionholder Information Clerk: Choco Hernandez RPH (Pharmacist) TPN day 5, [...] Author: BRIA Lima Service: (none) Author Type: Metal Hardener Filed: 01/15/15919 Date of Service: 01/15/15913 Status: Signed Pensionholder Information Clerk: BRIA Lima (Metal Hardener) Attended morning rounds. Pt remains vented. Had illeostomy, RAT due to dehydration, POD 11, failed most recent SBT. On TPN. Likely pt will need SNF. Has Medicare and Medicaid. Lives in [place] so likely will want [facility] if proximity to family is important. I will make initial referral though it is u nderstood that pt is a long ways from transferring out of the hospital. [place]: [phone] Choice of SNF needs to be discussed with family/pt. onver alex Transaction, Provider Unknown - 01/14/2015 12:53 PM PDT Nurse Progress Note by Carmen Butler RN at 01/14/15 9133 Author: Carmen Butler RN Service: Wound/Ostomy Care Author Type: Registered Nurse Filed: 01/14/15 7650 Date of Service: 01/14/15 200 Status: Signed Pensionholder Information Clerk: Carmen Butler RN (Registered Nurse) Wound care [...] General Surgery Author Type: Physician Filed: 01/14/15 1136 Date of Service: 01/14/151128 Status: Signed Pensionholder Information Clerk: Saleem Shore MD (Physician) [facility] Service: Colon & Rectal Surgery Progress Note [...] 01/14/151115 Date of Service: 01/14/151115 Status: Signed Pensionholder Information Clerk: Choco Hernandez RPH (Pharmacist) TPN day 4, [...] 1017 Date of Service: 01/14/15929 Status: Signed Pensionholder Information Clerk: Aubrie Linton MD (Physician) [facility] Service: Infectious Disease Progress Note Hospital Day: [...] at 08:15 AM in Hematology and Oncology ([facility] NURSE) 01/12/15 7:55 AM Specimen Description SPUTUMP GRAM STAIN GREATER THAN 10 WBCS/LPFP GRAM STAIN LESS THAN 10 SEC/LPFP GRAM STAIN 1+P GRAM STAIN GRAM POSITIVE COCCIP GRAM STAIN Testing performed at [facility], [address], [place] [address] CULTURE PENDINGP Resulting Agency [facility] Specimen Collected: 01/12/15 7:55 AM Impression 1. Stable right perihilar and basilar airspace disease. 2. Mild stable left basilar opacity to likely represent subsegmental atelectasis. X-ray chest 1 view [[id number]] PROBLEM LIST Principal Problem: Atrial fibrillation with [...] 01/14/151906 Date of Service: 01/14/15899 Status: Signed Pensionholder Information Clerk: Nba Strong PT (Physical Therapist) 01/14/15899 PT Last Visit PT Received On 01/14/15 (remains intubated/sedated) Requires PT Follow Up On hold onver alex Transaction, Provider Unknown - 01/14/2015 7:38 AM PDT Therapy Progress Note by Celine Farnsworth OTR/Ada at 01/14/15 0738 Author: GABRIELLA Iverson/Ada Service: (none) Author Type: Occupational Therapist Filed: 01/14/15 0740 Date of Service: 01/14/15737 Status: Signed Pensionholder Information Clerk: GABRIELLA Iverson/Ada (Occupational Therapist) 01/14/15737 OT Last [...] at 01/14/15225 Author: Dino Russo MD Service: Surgical Instrument Mechanic Author Type: Physician Filed: 01/15/15 0730 Date of Service: 01/14/15225 Status: Addendum Pensionholder Information Clerk: Dino Russo MD (Physician) Related Notes: Original Note by Dino Russo MD (Physician) filed at 01/15/15 0554 [facility] Service: Surgical Instrument Mechanic Progress Note [facility] 64 [facility] [...] 1129 Date of Service: 01/13/151945 Status: Signed Pensionholder Information Clerk: Saleem Shore MD (Physician) [facility] Service: Colon & Rectal Surgery Progress Note [...] Progress Note by IRAM Iverson at 01/13/15 3749 Author: IRAM Iverson Service: (none) Author Type: Occupational Therapist Filed: 01/13/15 6970 Date of Service: 01/13/151554 Status: Signed Pensionholder Information Clerk: IRAM Iverson (Occupational Therapist) 01/13/15 6718 OT Last Visit OT Received On 01/13/15 [...] 01/13/151419 Date of Service: 01/13/151419 Status: Signed Pensionholder Information Clerk: Anna Suresh RD, KENISHA (Registered Dietitian) 01/13/15 [...] up date 01/16/[address], CD, [facility] 01/13/2015 onver alex Transaction, Provider Unknown - 01/13/2015 1:41 PM PDT Case Management by BRIA Lima at 01/13/15 7600 Author: BRIA Lima Service: (none) Author Type: Metal Hardener Filed: 01/13/15 0772 Date of Service: 01/13/151340 Status: Signed Pensionholder Information Clerk: BRIA Lima (Metal Hardener) Attended care conference with Dr. Vega, roofer metal, pt's brother and pt's friend. Dr. Vega [...] a few days . Brother: Gustabo Eaton [phone] (c) [phone] (w) Friend: Hector Stone [phone] line Liu RPH - 01/13/2015 12:38 PM PDTFormatting of this note might be different from t he original. Progress Notes by lAine Cabrales RPH at 01/13/15 5526 Author: Aline Cabrales RPH Service: (none) Author Type: Pharmacist Filed: 01/13/15 1238 Date of Service: 01/13/15 1238 Status: Signed Pensionholder Information Clerk: Aline Cabrales RPH (Pharmacist) Clinical Pharmacy Note - TPN Blood glucose running high overnight; patient changed to insulin Endotool drip. Will remove insulin from TPN at this time. Blocking Machine Operator Second suggested formula change to decrease daily dextrose. [...] Author: BRIA Lima Service: (none) Author Type: Metal Hardener Filed: 01/13/15 1049 Date of Service: 01/13/15 1031 Status: Addendum Pensionholder Information Clerk: BRIA Lima (Metal Hardener) Related Notes: Original Note by BRIA Lima (Metal Hardener) filed at 01/13/15 1034 Attended morning rounds. Pt was transferred to the ICU after a RAT was called on the acute care floor. Pt is now vented. Per family medicine resident is zambian speaking only. Originally pt was planned to go home with [facility]. SBT to occur today. CM to follow. Arranged for care conference at 1300 today. Spring Fitter Helper notified and roofer metal called. onver alex Transaction, Provider Unknown - 01/13/2015 8:11 AM PDT Therapy Progress Note by Nba Strong PT at 01/13/15 0811 Author: Nba Strong PT Service: Physical Medicine and Rehab Author Type: Physical Therapist Filed: 01/13/15 1206 Date of Service: 01/13/15 0811 Status: Signed Pensionholder Information Clerk: Nba Strong PT (Physical Therapist) 01/13/15 0811 PT Last Visit PT Received On 01/13/15 Requires PT Follow Up On hold (remains a hold) ubrie Linton MD - 01/13/2015 8:06 AM PDT Progress Notes by Aubrie Linton MD at 01/13/15805 Author: Aubrie Linton MD Service: Infectious Disease Author Type: Physician Filed: 01/13/15 1037 Date of Service: 01/13/15805 Status: Signed Pensionholder Information Clerk: Aubrie Linton MD (Physician) [facility] Service: Infectious Disease Progress Note Hospital Day: [...] at 08:15 AM in Hematology and Oncology ([facility] NURSE) 01/12/15 7:55 AM Specimen Description SPUTUMP GRAM STAIN GREATER THAN 10 WBCS/LPFP GRAM STAIN LESS THAN 10 SEC/LPFP GRAM STAIN 1+P GRAM STAIN GRAM POSITIVE COCCIP GRAM STAIN Testing performed at [facility], [address], [place] [address] CULTURE PENDINGP Resulting Agency [facility] Specimen Collected: 01/12/15 7:55 AM Impression 1. Stable right perihilar and basilar airspace disease. 2. Mild stable left basilar opacity to likely represent subsegmental atelectasis. X-ray chest 1 view [[id number]] PROBLEM LIST Principal Problem: Atrial fibrillation with [...] 01/13/15404 Date of Service: 01/13/15404 Status: Signed Pensionholder Information Clerk: Suad Alvarez RPH (Pharmacist) Clinical Pharmacy Note: [...] at 01/13/15249 Author: Dino Russo MD Service: Surgical Instrument Mechanic Author Type: Physician Filed: 01/13/152131 Date of Service: 01/13/15249 Status: Signed Pensionholder Information Clerk: Dino Russo MD (Physician) [facility] Service: Surgical Instrument Mechanic Progress Note [facility] 64 [facility] [...] 01/12/151737 Date of Service: 01/12/151737 Status: Signed Pensionholder Information Clerk: Anna Suresh RD, CD (Registered Dietitian) 01/12/15 9563 Subjective Timepoint Follow up (routine ICU admit [...] today. Skin Stoma is reportedly red/denuded per embossing toolsetter but skin is otherwise intact with no [...] Type (!) Moderate Anna Suresh RD, CD, [facility] 01/12/2015 onver alex Transaction, Provider Unknown - 01/12/2015 11:08 AM PDT Progress Notes by Yasmin Bethea RPH at 01/12/15 110 Author: Yasmin Bethea RPH Service: (none) Author Type: Pharmacist Filed: 01/12/151107 Date of Service: 01/12/151107 Status: Signed Pensionholder Information Clerk: Yasmin Bethea RPH (Pharmacist) Day 1 Vanco Tx Todays Scr= 1.0, WBC= 4.17 with estim CrCl= 67.7 ml/min. Vanco level tonight-with improving CrCl patient may Require q 12h dosing (or an extra q12h dose). Pharmacist; YASMIN BETHAE 01/12/2015 11:07 AM ilSaleem schaefer MD - 01/12/2015 10:40 AM PDT Progress Notes by Saleem Shore MD at 01/12/15 1040 Author: Saleem Shore MD Service: General Surgery Author Type: Physician Filed: 01/12/15 1044 Date of Service: 01/12/15 104 Status: Signed Pensionholder Information Clerk: Saleem Shore MD (Physician) [facility] Service: Colon & Rectal Surgery Progress Note [...] 01/12/15832 Date of Service: 01/12/15832 Status: Signed Pensionholder Information Clerk: GABRIELLA Rico/Ada (Occupational Therapist) 01/12/15 0832 OT [...] Date of Service: 01/12/15 0800 Status: Signed Pensionholder Information Clerk: Roro Sterling, PT (Physical Therapist) 01/12/15 0800 [...] 01/12/15751 Date of Service: 01/12/15751 Status: Signed Pensionholder Information Clerk: Ludivina Eckert RPH (Pharmacist) Clinical Pharmacy Note: [...] at 01/12/15338 Author: Dino Russo MD Service: Surgical Instrument Mechanic Author Type: Physician Filed: 01/12/15 0515 Date of Service: 01/12/15338 Status: Signed Pensionholder Information Clerk: Dino Russo MD (Physician) Sepsis protocol 6 hour note The lactic acid is trending down, He is on levophed 18mcg/min. ivc is full with no respiratory variation. onversion Transaction , Provider Unknown - 01/12/2015 1:40 AM PDT Progress Notes by Suad Alvarez RPH at 01/12/15139 Author: Suad Alvarez RPH Service: (none) Author Type: Pharmacist Filed: 01/12/15139 Date of Service: 01/12/15139 Status: Signed Pensionholder Information Clerk: Suad Alvarez RPH (Pharmacist) Clinical Pharmacy Note: [...] 01/12/15126 Date of Service: 01/12/15126 Status: Signed Pensionholder Information Clerk: Suad Alvarez RPH (Pharmacist) Clinical Pharmacy Note: Extended Interval Zosyn Dosing CREATININE: 1.8 mg/dL ABNORMAL (01/11/152007) Estimated creatinine clearance - 36.8 mL/min NEUTROPHILS ABS Date Value Ref Range Status 01/11/2015 3.36 1.90 - 7.40 K/uL Final Comment: Testing performed at [facility], [address] [place] [address] Will begin with loading dose of 4.5 [...] at 01/12/1535 Author: Dino Russo MD Service: Surgical Instrument Mechanic Author Type: Physician Filed: 01/12/15 0053 Date of Service: 01/12/1535 Status: Signed Pensionholder Information Clerk: Dino Russo MD (Physician) [facility] Service: Surgical Instrument Mechanic Progress Note [facility] 64 [facility] [...] 01/12/1531 Date of Service: 01/12/1530 Status: Signed Pensionholder Information Clerk: Suad Alvarez RPH (Pharmacist) Patient on TPN: Electrolyte replacement changed to TPN replacement. Thank you. Suad Alvarez PharmD 01/12/2015 12:31 AM onver alex Transaction, Provider Unknown - 01/12/2015 12:01 AM PDT Progress Notes by Evelyn Davidson RRT at 01/12/15 0001 Author: Evelyn Davidson RRT Service: (none) Author Type: Registered Respiratory Therapi st Filed: 01/12/15 0003 Date of Service: 01/12/15 0001 Status: Signed Pensionholder Information Clerk: Evelyn Davidson RRT (Registered Respiratory Therapist) 01/11/152299 ETT 8 mm Placement Date/Time: 01/11/152254 Size : 8 mm Cuffed: Cuffed Insertion attempts: 1 Pl aced By: Surgical Instrument Mechanic Secured at (cm): 22 cm Measured From: [...] Breath Sounds Right Diminished Pt intubated by Surgical Instrument Mechanic Karan without incident/event with ETT 8.0, 22cm at [facility] placement. No desaturations durring intubation. Placement confirmed by visual, BS, and EtCO2 detection. onver alex Transaction, Provider Unknown - 01/11/2015 11:03 PM PDT Nurse Progress Note by Chandrika Mayers RN at 01/11/152302 Author: Chandrika Mayers RN Service: (none) Author Type: Registered Nurse Filed: 01/11/152316 Date of Service: 01/11/152302 Status: Signed Pensionholder Information Clerk: Chandrika Mayers RN (Registered Nurse) Received phone call while in another patients room that Patient had a low blood pressure. Upon entering room, lead RN and another surgical assistant certified were in room. Patient alert, zambian sp eaking only. Patient tachypnic and warm to the touch. RAT was called at approximately 2000. ICU lead RN, in room to assist along with lab, respiratory and Dr. Palmer. Patients daysh ift RN also asked in to room to assist with questions. Lead RN entered orders given by Dr. Palmer. CHEF CONCIERGE initiated fluid boluses and IV antibiotics. Per [...] 01/11/152213 Date of Service: 01/11/152211 Status: Signed Pensionholder Information Clerk: Grace Jasso RN (Registered Nurse) Lactate result 5.0 even after multiple NS bolus. Patient being transferred to ICU with ICU lead RN, primary surgical assistant certified. onver alex Transaction, Provider Unknown - 01/11/2015 8:20 PM PDT Nurse Progress Note by Grace Jasso RN at 01/11/152019 Author: Grace Jasso RN Service: (none) Author Type: Registered Nurse Filed: 01/11/152020 Date of Service: 01/11/152019 Status: Signed Pensionholder Information Clerk: Grace Jasso RN (Registered Nurse) Pressure bags applied to NS bolus. IV antibiotics started. onver alex Transaction, Provider Unknown - 01/11/2015 8:11 PM PDT Nurse Progress Note by Grace Jasso RN at 01/11/152010 Author: Grace Jasso RN Service: (none) Author Type: Registered Nurse Filed: 01/11/152011 Date of Service: 01/11/152010 Status: Signed Pensionholder Information Clerk: Grace Jasso RN (Registered Nurse) Mediport has good blood return. EKG done. evaluating results. onver alex Transaction, Provider Unknown - 01/11/2015 8:05 PM PDT Nurse Progress Note by Grace Jasso RN at 01/11/152004 Author: Grace Jasso RN Service: (none) Author Type: Registered Nurse Filed: 01/11/152005 Date of Service: 01/11/152004 Status: Signed Pensionholder Information Clerk: Grace Jasso RN (Registered Nurse) Lactate and blood cultures being drawn. EKG ordered, placed called. onver alex Transaction, Provider Unknown - 01/11/2015 7:46 PM PDT Nurse Progress Note by Kayli Fletcher RN at 01/11/151945 Author: Kayli Fletcher RN Service: (none) Author Type: Registered Nurse Filed: 01/11/151949 Date of Service: 01/11/151945 Status: Signed Pensionholder Information Clerk: Kayli Fletcher RN (Registered Nurse) Called Dr. [...] 01/11/151917 Date of Service: 01/11/151917 Status: Signed Pensionholder Information Clerk: Odessa Moreno RPH (Pharmacist) Clinical Pharmacy Note: INITIATION OF Parenteral Nutrition: Jose Eaton 64 y.o. male Height: Ht Readings from Last 1 Encounters: 01/10/15 1.626 m (5' 4") Weight: Wt Readings from Last 1 Encounters: 01/11/15 69.4 kg (153 lb) Body Mass Index: Body mass index is 26.25 kg/(m^2). [place] Body Weight: 59.2 kg Adjusted Body Weight: 63.3 kg Creatinine: CREATININE Date Value Ref Range Status 01/11/2015 0.67* 0.70 - 1.30 mg/dL Final Comment: Testing performed at [facility], [address] [place] [address] Estimated CrCl : CREATININE: 0.67 mg/dL ABNORMAL (01/11/15 2566) Estimated creatinine clearance - 90.8 mL/min Estimated Needs: Basal Energy Expenditure (BEE): 1300 hubert BEE x 1.2-1.4 = 3257-8241 Kcal needed per day Protein Requirements: Maintenance, [...] 01/11/151840 Date of Service: 01/11/151699 Status: Signed Pensionholder Information Clerk: Kayli Fletcher RN (Registered Nurse) Pt. Found [...] 1506 Date of Service: 01/11/151447 Status: Signed Pensionholder Information Clerk: Karsten Santiago MD (Physician) [facility] Service: Hospitalist Progress Note Pt: Jose Eaton AGE/SEX: 64 y.o. 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 No results for input(s): PHART, PO2ART, NIS6EWR, H3ETFPBL, BEART in the last 168 hours. No [...] 1438 Date of Service: 01/11/151424 Status: Addendum Pensionholder Information Clerk: Kayli Fletcher RN (Registered Nurse) Related Notes: [...] Date of Service: 01/11/15 1307 Status: Signed Pensionholder Information Clerk: Anoop Horan RN (Registered Nurse) Met with patient and roofer metal. Patient had reported to nurse earlier in [...] 01/11/15854 Date of Service: 01/11/15851 Status: Signed Pensionholder Information Clerk: Saleem Shore MD (Physician) [facility] Service: Colon & Rectal Surgery Progress Note [...] KCl 20 mEq 110 mL/hr at 01/11/15 0456 PRN Medications HYDROcodone-acetaminophen OR HYDROcodone-acetaminophen, magnesium sulfate [...] 0435 Date of Service: 01/11/15431 Status: Signed Pensionholder Information Clerk: Rosalva Mosqueda RN (Registered Nurse) Pt c/o [...] Date of Service: 10/16/15 1521 Status: Signed Pensionholder Information Clerk: Asya Chauhan RD (Registered Dietitian) 01/10/15 1508 [...] Date of Service: 01/10/15 1232 Status: Signed Pensionholder Information Clerk: Saleem Shore MD (Physician) [facility] Service: Colon & Rectal Surgery Progress Note [...] Author: BRIA Colindres Service: (none) Author Type: Metal Hardener Filed: 01/10/15 1216 Date of Service: 01/10/154 Status: Signed Pensionholder Information Clerk: BRIA Colindres (Metal Hardener) 01/10/15 1200 Anticipated Disposition Facility Type Home health care Medicare Important Message (GAUTAM) (given 01/09) Home Health Care Facility Other (comment) ([facility] ) Rcvd call from [facility] - they req call back - called them back at [phone] - they stated tht they could not take pt if he did not have a pcp - Called [facility] in [place] - pt is established with them - [...] DC so that they are aware [facility]) [place] onver alex Transaction, Provider Unknown - 01/10/2015 10:47 AM PDT Nurse Progress Note by Kayli Fletcher RN at 01/10/151046 Author: Kayli Fletcher RN Service: (none) Author Type: Registered Nurse Filed: 01/10/15 1050 Date of Service: 01/10/157 Status: Signed Pensionholder Information Clerk: Kayli Fletcher RN (Registered Nurse) Friend Liborio Escobar called to give update per his request, no answer, left my name and n umber on voicemail. Kayli Fletcher Hardeep Williamson MD - 01/10/2015 10:43 AM PDT Progress Notes by Hardeep Suarez MD at 01/10/15 104 Author: Hardeep Suarez MD Service: Hospitalist Author Type: Physician Filed: 01/10/154 Date of Service: 01/10/151042 Status: Signed Pensionholder Information Clerk: Hardeep Suarez MD (Physician) [facility] Service: Hospitalist Progress Note Pt: Jose Eaton AGE/SEX: 64 y.o. male ROOM: [address] [place] [address] : 1950 PCP: PER PT NONE ADMIT [...] MD, FACP 01/10/2015 10:43 AM Dictation software, Jumpzter, used which may contain error for similar sounding words even af ter review. Personal communication requested for any clarification. bag. Saleem Rodriguez MD - 01/09/2015 4:02 PM PDT Progress Notes by Saleem Shore MD at 01/09/15 160 Author: Saleem Shore MD Service: General Surgery Author Type: Physician Filed: 01/09/151602 Date of Service: 01/09/151601 Status: Signed Pensionholder Information Clerk: Saleem Shore MD (Physician) [facility] Service: Colon & Rectal Surgery Progress Note [...] Note by Daren Kolb RN at 01/09/15 8424 Author: Daren Kolb RN Service: (none) Author Type: Registered Nurse Filed: 01/09/15 174 Date of Service: 01/09/15 1235 Status: Signed Pensionholder Information Clerk: Daren Kolb RN (Registered Nurse) High output [...] 1242 Date of Service: 01/09/155 Status: Signed Pensionholder Information Clerk: Hardeep Suarez MD (Physician) [facility] Service: Hospitalist Progress Note Pt: Jose Eaton AGE/SEX: 64 y.o. male ROOM: [facility] : 1950 PCP: PER PT NONE ADMIT [...] MD, FACP 01/09/2015 12:15 PM Dictation software, Jumpzter, used which may contain error for similar [...] Date of Service: 01/09/15 114 Status: Signed Pensionholder Information Clerk: Lennie Redding RN (Registered Nurse) Floor RN [...] Note by Daren Kolb RN at 01/09/15 1051 Author: Daren Kolb RN Service: (none) Author Type: Registered Nurse Filed: 01/09/15 1058 Date of Service: 01/09/151052 Status: Signed Pensionholder Information Clerk: Daren Kolb RN (Registered Nurse) Patient is [...] 01/09/151048 Date of Service: 01/09/151048 Status: Signed Pensionholder Information Clerk: June Mo RPH (Pharmacist) Patient has been [...] Author: BRIA Ward Service: (none) Author Type: Metal Hardener Filed: 01/09/15831 Date of Service: 01/09/15831 Status: Signed Pensionholder Information Clerk: BRIA Ward (Metal Hardener) is working on arranging for [facility] to provide Ostomy-care and eli REED aleem Christie MD - 01/08/2015 8:47 PM PDT Progress Notes by Saleem Shore MD at 01/08/152046 Author: Saleem Shore MD Service: General Surgery Author Type: Physician Filed: 01/08/152047 Date of Service: 01/08/152046 Status: Signed Pensionholder Information Clerk: Saleem Shore MD (Physician) [facility] Service: Colon & Rectal Surgery Progress Note [...] Notes by Linda Gant RN at 01/08/15 4778 Author: Linda Gant RN Service: Wound/Ostomy Care Author Type: Registered Nurse Filed: 01/08/15 1885 Date of Service: 01/08/151327 Status: Signed Pensionholder Information Clerk: Linda Gant RN (Registered Nurse) [facility] Service: Ostomy Care Hospital Day: LOS: 5 days Post-Op Day: 5 Days Post-Op SUBJECTIVE Patient Summary: Ostomy nurse in for continued ostomy teaching. [place] Citizen interpretor present. 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 Crusted oliva-stomal [...] Home Health as well. Patient lives in [place]. [facility] abhishek s it wasn't done yesterday, order number: #[id number]. Patient provided with zambian Ostomy p acket. Did encourage patient to [...] Gant RN, CWON 01/08/2015 Electronically signed by [facility] Transaction, Provider at 11/19/2018 7:43 PM Hardeep Williamson MD - 01/08/2015 11:13 AM PDT Progress Notes by Hardeep Suarez MD at 01/08/15 1113 Author: Hardeep Suarez MD Service: Hospitalist Author Type: Physician Filed: 01/08/15 1138 Date of Service: 01/08/151112 Status: Signed Pensionholder Information Clerk: Hardeep Suarez MD (Physician) [facility] Service: Hospitalist Progress Note Pt: Jose Eaton [...] MD, FACP 01/08/2015 11:13 AM Dictation software, Jumpzter, used which may contain error for similar sounding words even af ter review. Personal communication requested for any clarification. onversion Transac tion, Provider Unknown - 01/08/2015 8:08 AM PDTFormatting of this note might be different f rom the original. Case Management by BRIA Ward at 01/08/15807 Author: BRIA Ward Service: (none) Author Type: Metal Hardener Filed: 01/08/15807 Date of Service: 01/08/15807 Status: Signed Pensionholder Information Clerk: BRIA Ward (Metal Hardener) CM met with pt for continued discharge [...] 01/07/151731 Date of Service: 01/07/151723 Status: Signed Pensionholder Information Clerk: Bety Nguyen RN (Registered Nurse) Subjective: This [...] requested that we print in structions in [place] Citizen and return tomorrow for ostomy teaching with the patient. Treatment/Dressing Plan: Ostomy teaching was printed off and to be delivered to the patient tomorrow. A one piece ostomy pouch seems to be working best for the patient at this time. At the patients request free samples were ordered to be delivered to the address he specifi ed from [facility]. BETY NGUYEN RN CWOCN 5:24 PM 01/07/2015 aleem Christie MD - 01/07/2015 5:12 PM PDT Progress Notes by Saleem Shore MD at 01/07/151711 Author: Saleem Shore MD Service: General Surgery Author Type: Physician Filed: 01/07/152027 Date of Service: 01/07/151711 Status: Addendum Pensionholder Information Clerk: Saleem Shore MD (Physician) Related Notes: Original Note by Saleem Shore MD (Physician) filed at 01/07/152025 [facility] Service: Colon & Rectal Surgery Progress Note [...] 1007 Date of Service: 01/07/1547 Status: Signed Pensionholder Information Clerk: Hardeep Suarez MD (Physician) [facility] Service: Hospitalist Progress Note Pt: Jose Eaton AGE/SEX: 64 y.o. male ROOM: [address] [place] [address] : 1950 PCP: EGRALD PT NONE ADMIT DATE: 01/03/2015 TODAY'S DATE: [...] MD, FACP 01/07/2015 9:47 AM Dictation software, Jumpzter, used which may contain error for similar sounding words even af ter review. Personal communication requested for any clarification. Saleem Rodriguez MD - 01/06/2015 8:58 PM PDT Progress Notes by Saleem Shore MD at 01/06/152057 Author: Saleem Shore MD Service: General Surgery Author Type: Physician Filed: 01/07/152036 Date of Service: 01/06/152057 Status: Addendum Pensionholder Information Clerk: Saleem Shore MD (Physician) Related Notes: Original Note by Saleem Shore MD (Physician) filed at 01/06/152102 [facility] Service: Colon & Rectal Surgery Progress Note [...] 01/06/151714 Date of Service: 01/06/151707 Status: Signed Pensionholder Information Clerk: Bety Nguyen RN (Registered Nurse) [facility] Service: Ostomy Care Consult Note Hospital Day: [...] will plan to return tomorrow with an roofer metal to do more ostomy teaching for this dear z[place]ian speaking patient. Thank you for allowing me to participate in the care of this patient. I will continue to follow with you. BETY NGUYEN RN [facility] 01/06/2015 Hardeep Williamson MD - 01/06/2015 9:39 AM PDT Progress Notes by Hardeep Suarez MD at 01/06/15938 Author: Hardeep Suarez MD Service: Hospitalist Author Type: Physician Filed: 01/06/15958 Date of Service: 01/06/15938 Status: Addendum Pensionholder Information Clerk: Hardeep Suarez MD (Physician) Related Notes: Original Note by Hardeep Suarez MD (Physician) filed at 01/06/15958 [facility] Service: Hospitalist Progress Note Pt: Jose Eaton AGE/SEX: 64 y.o. male ROOM: [address] [place], [place] [address] : 1950 PCP: GERALD PT NONE ADMIT [...] MD, FACP 01/06/2015 9:39 AM Dictation software, Jumpzter, used which may contain error for similar [...] 01/05/151616 Date of Service: 01/05/151615 Status: Signed Pensionholder Information Clerk: Heather Kan RN (Registered Nurse) 01/05/151613 Discharge Planning Evaluation Admitting Diagnosis rectal cancer Readmission No Living Arrangements Alone Support Systems Friends/neighbors (Shawn Capone [phone]) Type of Residence Private residence House type [...] involvement from his family. His friend Liborio sEcobar helps his whenever he can. Patient's PCP [...] 01/05/15857 Date of Service: 01/05/15853 Status: Signed Pensionholder Information Clerk: Saleem Shore MD (Physician) [facility] Service: Colon & Rectal Surgery Progress Note [...] 1111 Date of Service: 01/04/151105 Status: Signed Pensionholder Information Clerk: Saleem Shore MD (Physician) [facility] Service: Colon & Rectal Surgery Progress Note [...] Saleem Shore MD 01/04/2015 ohnson, Aline Deluca [facility] - 01/03/2015 3:54 PM PDT Progress Notes by Aline Cabrales RPH at 01/03/15 2701 Author: Aline Cabrales RPH Service: (none) Author Type: Pharmacist Filed: 01/03/15 597 Date of Service: 01/03/151553 Status: Signed Pensionholder Information Clerk: Aline Cabrales RPH (Pharmacist) Clinical Pharmacy Note - Renal Dose Adjustment Jose Eaton 64 y.o. male Ht Readings from Last 1 Encounters: 01/03/15 1.626 m (5' 4") Wt Readings from Last 1 Encounters: 01/03/15 72.8 kg (160 lb 7.9 oz) CREATININE Date Value Ref Range Status 12/19/2014 0.63* 0.70 - 1.30 mg/dL Final Comment: Testing performed at [facility], [address] [place] [address] Creatinine clearance cannot be calculated (Patient's most [...] Note by Candace Almanza RN at 01/03/15 302 Author: Candace Almanza RN Service: (none) Author Type: Registered Nurse Filed: 01/03/15 9339 Date of Service: 01/03/151419 Status: Signed Pensionholder Information Clerk: Candace Almanza RN (Registered Nurse) Dr Shore [...] [address] | | | | | | [place] [address] | | | | | | [phone] | | | | | | | | +--------+ + + + + | 02/21/ | Surgery | | Saleem Shore, | COLONOSCOPY | | 2018 | | | [address] | | | | | | [address] | | | | | | [place] [address] | | | | | | [phone] | | | | | | | [...] | | | Fingerstick | performed at [facility];[address] | | LAB | | | | [address];[place] | | | | | | [address] | | | | + + + [...] EXTERNAL | | | | performed at [facility];[address] | K/uL | LAB | | | | [address];[place] | | | | | | [address] | | | | + + + + + + | RED CELL | 2.61 (L)Comment: Testing | 4.20 - 5.70 | EXTERNAL | | | COUNT | performed at [facility];[address] | M/uL | LAB | | | | [address];[place] | | | | | | [address] | | | | + + + + + + | Hgb | 8.5 (L)Comment: Testing | 13.2 - 17.0 | EXTERNAL | | | | performed at [facility];888 | g/dL | LAB | | | | [address];[place] | | | | | | [address] | | | | + + + + + + | Hematocrit, | 24.8 (L)Comment: Testing | 39.0 - 50.0 % | EXTERNAL | | | POC | performed at [facility];[address] | | LAB | | | | [address];[place] | | | | | | [address] | | | | + + + + + + | MCV | 95.2Comment: Testing | 80.0 - 100.0 fl | EXTERNAL | | | | performed at [facility];[address] | | LAB | | | | [address];[place] | | | | | | [address] | | | | + + + + + + | MCH | 32.6Comment: Testing | 27.0 - 34.0 pg | EXTERNAL | | | | performed at [facility];[address] | | LAB | | | | [address];[place] | | | | | | [address] | | | | + + + + + + | MCHC | 34.2Comment: Testing | 32.0 - 35.5 | EXTERNAL | | | | performed at [facility];888 | g/dL | LAB | | | | [address];[place] | | | | | | [address] | | | | + + + + + + | RDW-CV | 45.1Comment: Testing | 37 - 53 fl | EXTERNAL | | | | performed at [facility];[address] | | LAB | | | | [address];[place] | | | | | | [address] | | | | + + + + + + | Platelet | 584 (H)Comment: Testing | 150 - 400 K/uL | EXTERNAL | | | Count | performed at [facility];[address] | | LAB | | | Plasma | [address];[place] | | | | | | [address] | | | | + + + + + + | MPV | 7.8Comment: Testing | fl | EXTERNAL | | | | performed at [facility];[address] | | LAB | | | | [address];[place] | | | | | | [address] | | | | + + + + + + | Differentia | AUTOMATEDComment: | | EXTERNAL | | | l Type | Testing performed at | | LAB | | | | [facility];[address];[place] [address] | | | | + + + + + + | % Segmented | 76.19Comment: Testing | % | EXTERNAL | | | | performed at [facility];[address] | | LAB | | | Neutrophils | [address];[place] | | | | | | [address] | | | | + + + + + + | % | 9.37Comment: Testing | % | EXTERNAL | | | Lymphocytes | performed at [facility];[address] | | LAB | | | | [address];[place] | | | | | | [address] | | | | + + + + + + | % Monocytes | 9.80Comment: Testing | % | EXTERNAL | | | | performed at [facility];[address] | | LAB | | | | [address];[place] | | | | | | [address] | | | | + + + + + + | % | 3.37Comment: Testing | % | EXTERNAL | | | Eosinophils | performed at [facility];[address] | | LAB | | | | [address];[place] | | | | | | [address] | | | | + + + + + + | % Basophils | 1.27Comment: Testing | % | EXTERNAL | | | | performed at [facility];[address] | | LAB | | | | [address];[place] | | | | | | [address] | | | | + + + + + + | Absolute | 7.44 (H)Comment: Testing | 1.90 - 7.40 | EXTERNAL | | | Segmented | performed at [facility];888 | K/uL | LAB | | | Neutrophils | [address];[place] | | | | | | [address] | | | | + + + + + + | Absolute | 0.92 (L)Comment: Testing | 1.00 - 3.90 | EXTERNAL | | | Lymphocytes | performed at [facility];888 | K/uL | LAB | | | | [address];[place] | | | | | | [address] | | | | + + + + + + | Absolute | 0.96 (H)Comment: Testing | 0.00 - 0.80 | EXTERNAL | | | Monocytes | performed at [facility];888 | K/uL | LAB | | | | [address];[place] | | | | | | [address] | | | | + + + + + + | Absolute | 0.33Comment: Testing | 0.00 - 0.50 | EXTERNAL | | | Eosinophils | performed at [facility];[address] | K/uL | LAB | | | | [address];[place] | | | | | | [address] | | | | + + + + + + | Absolute | 0.12 (H)Comment: Testing | 0.00 - 0.10 | EXTERNAL | | | Basophils | performed at [facility];888 | K/uL | LAB | | | | [address];[place] | | | | | | [address] | | | | + + + + + + | RBC | RBC AND PLT MORPHOLOGY | | EXTERNAL | | | Morphology | APPEAR NORMALComment: | | LAB | | | | Testing performed at | | | | | | [facility];[address];[place] [address] | | | | + + + + + + | Differentia | SLIDE SCANNED, AGREES | | EXTERNAL | | | l Comments | WITH AUTOMATED | | LAB | | | | RESULTS.Comment: Testing | | | | | | performed at [facility];[address] | | | | | | [address];[place] | | | | | | [address] | | | | + + + [...] EXTERNAL | | | | performed at [facility];[address] | | LAB | | | | [address];[place] | | | | | | [address] | | | | + + + [...] EXTERNAL | | | | performed at [facility];[address] | | LAB | | | | [address];[place], [place] | | | | | | [address] | | | | + + + [...] EXTERNAL | | | | performed at [facility];888 | mmol/L | LAB | | | | [address];[place] | | | | | | [address] | | | | + + + + + + | K | 4.5Comment: Testing | 3.5 - 4.9 | EXTERNAL | | | | performed at [facility];888 | mmol/L | LAB | | | | [address];[place] | | | | | | [address] | | | | + + + + + + | Cl | 102Comment: Testing | 99 - 109 mmol/L | EXTERNAL | | | | performed at [facility];[address] | | LAB | | | | [address];[place] | | | | | | [address] | | | | + + + + + + | CO2 | 23Comment: Testing | 23 - 32 mmol/L | EXTERNAL | | | | performed at [facility];[address] | | LAB | | | | [address];[place] | | | | | | [address] | | | | + + + + + + | Anion Gap | 13Comment: Testing | 5 - 20 mmol/L | EXTERNAL | | | | performed at [facility];[address] | | LAB | | | | [address];[place] | | | | | | [address] | | | | + + + + + + | Glucose, | 115 (H)Comment: Testing | 65 - 99 mg/dL | EXTERNAL | | | Fasting | performed at [facility];[address] | | LAB | | | | [address];[place] | | | | | | [address] | | | | + + + + + + | BUN | 30 (H)Comment: Testing | 8 - 25 mg/dL | EXTERNAL | | | | performed at [facility];[address] | | LAB | | | | [address];[place] | | | | | | [address] | | | | + + + + + + | Creatinine | 0.64 (L)Comment: Testing | 0.70 - 1.30 | EXTERNAL | | | | performed at [facility];888 | mg/dL | LAB | | | | [address];[place] | | | | | | [address] | | | | + + + + + + | BUN/Creatin | 47Comment: Testing | | EXTERNAL | | | ine Ratio | performed at [facility];[address] | | LAB | | | | [address];[place] | | | | | | [address] | | | | + + + + + + | Calcium | 8.3 (L)Comment: Testing | 8.5 - 10.5 | EXTERNAL | | | | performed at [facility];888 | mg/dL | LAB | | | | [address];[place] | | | | | | [address] | | | | + + + [...] | | | | | | at [facility];[address] [place] [address] | | | | | | [facility];[place] [address] | | | | + + + [...] | | | Fingerstick | performed at [facility];[address] | | LAB | | | | [address];[place], [place] | | | | | | [address] | | | | + + + [...] | | | Fingerstick | performed at [facility];[address] | | LAB | | | | [address];[place], [place] | | | | | | [address] | | | | + + + [...] | | | Fingerstick | performed at [facility];[address] | | LAB | | | | [address];[place], [place] | | | | | | [address] | | | | + + + [...] Conversion - 11/10/2018 8:48 AM PDT JOSE EATON3/4/[id number] yearsXR CHEST | | 1 VIEW01/24/2015 5:44 [...] | | | Fingerstick | performed at [facility];[address] | | LAB | | | | [address];[place], [place] | | | | | | [phone] [...] EXTERNAL | | | | performed at [facility], [address] | K/uL | LAB | | | | [address], | | | | | | [place] [address] | | | | + + + + + + | RED CELL | 2.52 (L)Comment: Testing | 4.20 - 5.70 | EXTERNAL | | | COUNT | performed at [facility], [address] | M/uL | LAB | | | | [address], | | | | | | [place] [address] | | | | + + + + + + | Hgb | 8.5 (L)Comment: Testing | 13.2 - 17.0 | EXTERNAL | | | | performed at [facility], [address] | g/dL | LAB | | | | [address], | | | | | | [place] [address] | | | | + + + + + + | Hematocrit, | 24.6 (L)Comment: Testing | 39.0 - 50.0 % | EXTERNAL | | | POC | performed at [facility], [address] | | LAB | | | | [address], | | | | | | [place] [address] | | | | + + + + + + | MCV | 97.8Comment: Testing | 80.0 - 100.0 fl | EXTERNAL | | | | performed at [facility], [address] | | LAB | | | | [address], | | | | | | [place] [address] | | | | + + + + + + | MCH | 33.5Comment: Testing | 27.0 - 34.0 pg | EXTERNAL | | | | performed at [facility], [address] | | LAB | | | | [address], | | | | | | [place] [address] | | | | + + + + + + | MCHC | 34.3Comment: Testing | 32.0 - 35.5 | EXTERNAL | | | | performed at [facility], [address] | g/dL | LAB | | | | [address], | | | | | | [place] [address] | | | | + + + + + + | RDW-CV | 45.9Comment: Testing | 37 - 53 fl | EXTERNAL | | | | performed at [facility], [address] | | LAB | | | | [address], | | | | | | [place] [address] | | | | + + + + + + | Platelet | 498 (H)Comment: Testing | 150 - 400 K/uL | EXTERNAL | | | Count | performed at [facility], [address] | | LAB | | | Plasma | [address], | | | | | | [place] [address] | | | | + + + + + + | MPV | 8.3Comment: Testing | fl | EXTERNAL | | | | performed at [facility], [address] | | LAB | | | | [address], | | | | | | [place] [address] | | | | + + + + + + | Differentia | MANUALComment: Testing | | EXTERNAL | | | l Type | performed at [facility], [address] | | LAB | | | | [address], | | | | | | [place] [address] | | | | + + + + + + | Segmented | 75Comment: Testing | % | EXTERNAL | | | Neutrophils | performed at [facility], [address] | | LAB | | | Manual | [address], | | | | | | [place] [address] | | | | + + + [...] | | | | [place] [address] | | | | + + [...] | | | | [place] [address] | | | | + + + + + + | Absolute | 1.02Comment: Testing | 1.00 - 3.90 | EXTERNAL | | | Lymphocytes | performed at [facility], [address] | K/uL | LAB | | | | [address], | | | | | | [place] [address] | | | | + + + + + + | Absolute | 0.83 (H)Comment: Testing | 0.00 - 0.80 | EXTERNAL | | | Monocytes | performed at [facility], [address] | K/uL | LAB | | | | [address], | | | | | | [place] [address] | | | | + + + + + + | Absolute | 0.46Comment: Testing | 0.00 - 0.50 | EXTERNAL | | | Eosinophils | performed at [facility], [address] | K/uL | LAB | | | | [address], | | | | | | [place] [address] | | | | + + + + + + | Platelet | INCREASEDComment: | | EXTERNAL | | | Estimate | Testing performed at | | LAB | | | | [facility], [address] | | | | | | [place] | | | | | | [address] | | | | + + + + + + | RBC | NORMAL RBC MORPHComment: | | EXTERNAL | | | Morphology | NORMAL PLT MORPHTesting | | LAB | | | | performed at [facility], [address] | | | | | | [address], | | | | | | [place] [address] | | | | + + + [...] EXTERNAL | | | | performed at [facility];[address] | | LAB | | | | [address];[place] | | | | | | [address] | | | | + + + [...] EXTERNAL | | | | performed at [facility];[address] | | LAB | | | | [address];[place] | | | | | | [address] | | | | + + + [...] EXTERNAL | | | | performed at [facility];[address] | | LAB | | | | [address];[place], [place] | | | | | | [address] | | | | + + + [...] EXTERNAL | | | | performed at [facility];[address] | mmol/L | LAB | | | | [address];[place] | | | | | | [address] | | | | + + + + + + | K | 4.8Comment: Testing | 3.5 - 4.9 | EXTERNAL | | | | performed at [facility];[address] | mmol/L | LAB | | | | [address];[place] | | | | | | [address] | | | | + + + + + + | Cl | 104Comment: Testing | 99 - 109 mmol/L | EXTERNAL | | | | performed at [facility];[address] | | LAB | | | | [address];[place] | | | | | | [address] | | | | + + + + + + | CO2 | 25Comment: Testing | 23 - 32 mmol/L | EXTERNAL | | | | performed at [facility];[address] | | LAB | | | | [address];[place] | | | | | | [address] | | | | + + + + + + | Anion Gap | 11Comment: Testing | 5 - 20 mmol/L | EXTERNAL | | | | performed at [facility];[address] | | LAB | | | | [address];[place] | | | | | | [address] | | | | + + + + + + | Glucose, | 115 (H)Comment: Testing | 65 - 99 mg/dL | EXTERNAL | | | Fasting | performed at [facility];[address] | | LAB | | | | [address];[place] | | | | | | [address] | | | | + + + + + + | BUN | 29 (H)Comment: Testing | 8 - 25 mg/dL | EXTERNAL | | | | performed at [facility];[address] | | LAB | | | | [address];[place] | | | | | | [address] | | | | + + + + + + | Creatinine | 0.60 (L)Comment: Testing | 0.70 - 1.30 | EXTERNAL | | | | performed at [facility];[address] | mg/dL | LAB | | | | [address];[place] | | | | | | [address] | | | | + + + + + + | BUN/Creatin | 49Comment: Testing | | EXTERNAL | | | ine Ratio | performed at [facility];[address] | | LAB | | | | [address];[place] | | | | | | [address] | | | | + + + + + + | Calcium | 8.2 (L)Comment: Testing | 8.5 - 10.5 | EXTERNAL | | | | performed at [facility];888 | mg/dL | LAB | | | | [address];[place] | | | | | | [address] | | | | + + + [...] | | | | | | at [facility];[address] [place] [address] | | | | | | [facility];[place] [address] | | | | + + + [...] | | | Fingerstick | performed at [facility];[address] | | LAB | | | | [address];[place], [place] | | | | | | [address] | | | | + + + [...] | | | Fingerstick | performed at [facility];[address] | | LAB | | | | [address];[place] | | | | | | [address] | | | | + + + [...] reconstructed images | | | performed by lead neurodiagnostic technologist. Contrast: MultiHance. Dose: 14 mL. | [...] JOSE EATON1948MRI ABDOMEN W WO | | GRCANNEQ68/29/2015 3:06 PM HISTORY: Rectal carcinoma, mucous plug [...] | intensity projected reconstructed images performed by lead neurodiagnostic technologist.Contrast: | | MultiHance. Dose: 14 mL. [...] | | | Fingerstick | performed at [facility];[address] | | LAB | | | | [address];[place] | | | | | | [address] | | | | + + + [...] Conversion - 11/10/2018 8:48 AM PDT JOSE [id number] yearsXR CHEST | | 1 VIEW01/23/2015 5:52 [...] | | | Fingerstick | performed at [facility];[address] | | LAB | | | | [address];[place] | | | | | | [address] | | | | + + + [...] EXTERNAL | | | | performed at [facility], [address] | K/uL | LAB | | | | [address], | | | | | | [place] [address] | | | | + + + + + + | RED CELL | 2.47 (L)Comment: Testing | 4.20 - 5.70 | EXTERNAL | | | COUNT | performed at [facility], [address] | M/uL | LAB | | | | [address], | | | | | | [place] [address] | | | | + + + + + + | Hgb | 8.2 (L)Comment: Testing | 13.2 - 17.0 | EXTERNAL | | | | performed at [facility], [address] | g/dL | LAB | | | | [address], | | | | | | [place] [address] | | | | + + + + + + | Hematocrit, | 24.1 (L)Comment: Testing | 39.0 - 50.0 % | EXTERNAL | | | POC | performed at [facility], [address] | | LAB | | | | [address], | | | | | | [place] [address] | | | | + + + + + + | MCV | 97.5Comment: Testing | 80.0 - 100.0 fl | EXTERNAL | | | | performed at [facility], [address] | | LAB | | | | [address], | | | | | | [place] [address] | | | | + + + + + + | MCH | 33.3Comment: Testing | 27.0 - 34.0 pg | EXTERNAL | | | | performed at [facility], [address] | | LAB | | | | [address], | | | | | | [place] [address] | | | | + + + + + + | MCHC | 34.2Comment: Testing | 32.0 - 35.5 | EXTERNAL | | | | performed at [facility], [address] | g/dL | LAB | | | | [address], | | | | | | [place] [address] | | | | + + + + + + | RDW-CV | 44.2Comment: Testing | 37 - 53 fl | EXTERNAL | | | | performed at [facility], [address] | | LAB | | | | [address], | | | | | | [place] [address] | | | | + + + + + + | Platelet | 408 (H)Comment: Testing | 150 - 400 K/uL | EXTERNAL | | | Count | performed at [facility], [address] | | LAB | | | Plasma | [address], | | | | | | [place] [address] | | | | + + + + + + | MPV | 8.7Comment: Testing | fl | EXTERNAL | | | | performed at [facility], [address] | | LAB | | | | [address], | | | | | | [place] [address] | | | | + + + + + + | Differentia | MANUALComment: Testing | | EXTERNAL | | | l Type | performed at [facility], [address] | | LAB | | | | [address], | | | | | | [place], [place] [address] | | | | + + + + + + | Segmented | 84Comment: Testing | % | EXTERNAL | | | Neutrophils | performed at [facility], [address] | | LAB | | | Manual | [address], | | | | | | [place], [place] [address] | | | | + + + + + + | % Bands | 3Comment: Testing | % | EXTERNAL | | | | performed at [facility], [address] | | LAB | | | | [address], | | | | | | [place], [place] [address] | | | | + + + + + + | % | 1Comment: Testing | % | EXTERNAL | | | Metamyelocy | performed at [facility], [address] | | LAB | | | [address] | [address], | | | | | | [place], [place] [address] | | | | + + + + + + | Lymphocytes | 6Comment: Testing | % | EXTERNAL | | | Manual | performed at [facility], [address] | | LAB | | | | [place], | | | | | | [place] [address] | | | | + + + + + + | Monocytes | 3Comment: Testing | % | EXTERNAL | | | Manual | performed at [facility], [address] | | LAB | | | [address], | | | | | | [place] [address] | | | | + + + + + + | Eosinophils | 3Comment: Testing | % | EXTERNAL | | | Manual | performed at [facility], [address] | | LAB | | | | [address], | | | | | | [place] [address] | | | | + + + + + + | Absolute | 9.02 (H)Comment: Testing | 1.90 - 7.40 | EXTERNAL | | | Neutrophils | performed at [facility], [address] | [address]/uL | LAB | | | | [address], | | | | | | [place] [address] | | | | + + + + + + | Bands | 0.32 (H)Comment: Testing | 0.00 - 0.20 | EXTERNAL | | | Manual | performed at [facility], [address] | [address]/uL | LAB | | | | [address], | | | | | | [place] [address] | | | | + + + + + + | Absolute | 0.11 (H)Comment: Testing | K/uL | EXTERNAL | | | Metamyelocy | performed at [facility], [address] | | LAB | | | [address] | [address], | | | | | | [place] [address] | | | | + + + + + + | Absolute | 0.64 (L)Comment: Testing | 1.00 - 3.90 | EXTERNAL | | | Lymphocytes | performed at [facility], [address] | [address] | LAB | | | | [address], | | | | | | [place] [address] | | | | + + + + + + | Absolute | 0.32Comment: Testing | 0.00 - 0.80 | EXTERNAL | | | Monocytes | performed at [facility], [address] | K/uL | LAB | | | | [address] [place], | | | | | | [place] [address] | | | | + + + + + + | Absolute | 0.32Comment: Testing | 0.00 - 0.50 | EXTERNAL | | | Eosinophils | performed at [facility], [address] | K/uL | LAB | | | | [address], | | | | | | [place] [address] | | | | + + + + + + | Platelet | INCREASEDComment: | | EXTERNAL | | | Estimate | Testing performed at | | LAB | | | | [facility], [address] [facility] | | | | | | [place] | | | | | | [address] | | | | + + + + + + | RBC | 1+Comment: ANISONORMAL | | EXTERNAL | | | Morphology | PLT MORPHTesting | | LAB | | | | performed at [facility], [address] | | | | | | [facility] | | | | | | [place] [address] | | | | | | | [...] EXTERNAL | | | | performed at [facility];[address] | | LAB | | | | [address];[place], [place] | | | | | | [address] | | | | + + + [...] EXTERNAL | | | | performed at [facility];8 | | LAB | | | | [address];[place] | | | | | | [phone] | | | | + + + [...] EXTERNAL | | | | performed at [facility];[address] | | LAB | | | | [address];[place], [place] | | | | | | [address] | | | | + + + [...] | | Last Dose | performed at [facility];[address] | | LAB | | | | [address];[place] | | | | | | [phone] | | | | + + + + + + | Time of | UNKNOWNComment: Testing | | EXTERNAL | | | Last Dose | performed at [facility];[address] | | LAB | | | | [address];[place] | | | | | | [phone] | | | | + + + + + + | Digoxin | 1.3Comment: Testing | 0.90 - 2.00 | EXTERNAL | | | level | performed at [facility], [address] | ng/mL | LAB | | | | [address], | | | | | | [place] [address] | | | | + + + [...] EXTERNAL | | | | performed at [facility];[address] | mmol/L | LAB | | | | [address];[place] | | | | | | [address] | | | | + + + + + + | K | 4.3Comment: Testing | 3.5 - 4.9 | EXTERNAL | | | | performed at [facility];[address] | mmol/L | LAB | | | | [address];[place] | | | | | | [address] | | | | + + + + + + | Cl | 103Comment: Testing | 99 - 109 mmol/L | EXTERNAL | | | | performed at [facility];[address] | | LAB | | | | [address];[place] | | | | | | [address] | | | | + + + + + + | CO2 | 28Comment: Testing | 23 - 32 mmol/L | EXTERNAL | | | | performed at [facility];[address] | | LAB | | | | [address];[place] | | | | | | [address] | | | | + + + + + + | Anion Gap | 8Comment: Testing | 5 - 20 mmol/L | EXTERNAL | | | | performed at [facility];[address] | | LAB | | | | [address];[place] | | | | | | [address] | | | | + + + + + + | Glucose, | 113 (H)Comment: Testing | 65 - 99 mg/dL | EXTERNAL | | | Fasting | performed at [facility];[address] | | LAB | | | | [address];[place] | | | | | | [phone] | | | | + + + + + + | BUN | 27 (H)Comment: Testing | 8 - 25 mg/dL | EXTERNAL | | | | performed at [facility];[address] | | LAB | | | | [address];[place] | | | | | | [phone] | | | | + + + + + + | Creatinine | 0.65 (L)Comment: Testing | 0.70 - 1.30 | EXTERNAL | | | | performed at [facility];888 | mg/dL | LAB | | | | [address];[place] | | | | | | [address] | | | | + + + + + + | BUN/Creatin | 42Comment: Testing | | EXTERNAL | | | ine Ratio | performed at [facility];[address] | | LAB | | | | [address];[place] | | | | | | [address] | | | | + + + + + + | Calcium | 8.0 (L)Comment: Testing | 8.5 - 10.5 | EXTERNAL | | | | performed at [facility];888 | mg/dL | LAB | | | | [address];[place] | | | | | | [phone] | | | | + + + [...] | | | | | | at [facility];[address] [place] [address] | | | | | | [facility];[place] [address] | | | | + + [...] | | | Fingerstick | performed at [facility];[address] | | LAB | | | | [address];[place], [place] | | | | | | [address] | | | | + + + [...] EXTERNAL | | | | performed at [facility];888 | mmol/L | LAB | | | | [address];[place] | | | | | | [address] | | | | + + + [...] EXTERNAL | | | | performed at [facility];[address] | | LAB | | | | [address];[place], [place] | | | | | | [address] | | | | + + + [...] EXTERNAL | | | | performed at [facility];[address] | | LAB | | | | [address];[place], [place] | | | | | | [address] | | | | + + + [...] | | | Fingerstick | performed at [facility];[address] | | LAB | | | | [address];[place], [place] | | | | | | [address] | | | | + + + [...] | | | Fingerstick | performed at [facility];[address] | | LAB | | | | [address];[place], [place] | | | | | | [address] | | | | + + + [...] K/uL | LAB | | | | [facility];[address];[place] [phone] | | | | + + + + + + | RED CELL | 2.60 (L)Comment: Testing | 4.20 - 5.70 | EXTERNAL | | | COUNT | performed at [facility];[address] | M/uL | LAB | | | | [address];[place] | | | | | | [phone] | | | | + + + + + + | Hgb | 8.3 (L)Comment: Testing | 13.2 - 17.0 | EXTERNAL | | | | performed at [facility];888 | g/dL | LAB | | | | [address];[place] | | | | | | [phone] | | | | + + + + + + | Hematocrit, | 25.4 (L)Comment: Testing | 39.0 - 50.0 % | EXTERNAL | | | POC | performed at [facility];[address] | | LAB | | | | [address];[place] | | | | | | [address] | | | | + + + + + + | MCV | 97.8Comment: Testing | 80.0 - 100.0 fl | EXTERNAL | | | | performed at [facility];[address] | | LAB | | | | [address];[place] | | | | | | [address] | | | | + + + + + + | MCH | 31.9Comment: Testing | 27.0 - 34.0 pg | EXTERNAL | | | | performed at [facility];[address] | | LAB | | | | [address];[place] | | | | | | [address] | | | | + + + + + + | MCHC | 32.6Comment: Testing | 32.0 - 35.5 | EXTERNAL | | | | performed at [facility];888 | g/dL | LAB | | | | [address];[place] | | | | | | [address] | | | | + + + + + + | RDW-CV | 46.4Comment: Testing | 37 - 53 fl | EXTERNAL | | | | performed at [facility];[address] | | LAB | | | | [address];[place] | | | | | | [address] | | | | + + + + + + | Platelet | 320Comment: Testing | 150 - 400 K/uL | EXTERNAL | | | Count | performed at [facility];[address] | | LAB | | | Plasma | [address];[place] | | | | | | [address] | | | | + + + + + + | MPV | 8.6Comment: Testing | fl | EXTERNAL | | | | performed at [facility];[address] | | LAB | | | | [address];[place] | | | | | | [address] | | | | + + + + + + | Differentia | MANUALComment: Testing | | EXTERNAL | | | l Type | performed at [facility];[address] | | LAB | | | | [address];[place] | | | | | | [address] | | | | + + + + + + | Segmented | 77Comment: Testing | % | EXTERNAL | | | Neutrophils | performed at [facility];[address] | | LAB | | | Manual | [address];[place] | | | | | | [address] | | | | + + + + + + | % Bands | 7Comment: Testing | % | EXTERNAL | | | | performed at [facility];[address] | | LAB | | | | [address];[place] | | | | | | [address] | | | | + + + + + + | Lymphocytes | 6Comment: Testing | % | EXTERNAL | | | Manual | performed at [facility];[address] | | LAB | | | | [address];[place] | | | | | | [address] | | | | + + + + + + | Monocytes | 9Comment: Testing | % | EXTERNAL | | | Manual | performed at [facility];[address] | | LAB | | | | [address];[place] | | | | | | [address] | | | | + + + + + + | Eosinophils | 1Comment: Testing | % | EXTERNAL | | | Manual | performed at [facility];[address] | | LAB | | | | [address];[place] | | | | | | [address] | | | | + + + + + + | Absolute | 9.42 (H)Comment: Testing | 1.90 - 7.40 | EXTERNAL | | | Neutrophils | performed at [facility];[address] | K/uL | LAB | | | | [address];[place] | | | | | | [address] | | | | + + + + + + | Bands | 0.86 (H)Comment: Testing | 0.00 - 0.20 | EXTERNAL | | | Manual | performed at [facility];[address] | K/uL | LAB | | | | [address];[place] | | | | | | [address] | | | | + + + + + + | Absolute | 0.73 (L)Comment: Testing | 1.00 - 3.90 | EXTERNAL | | | Lymphocytes | performed at [facility];[address] | K/uL | LAB | | | | [address];[place] | | | | | | [address] | | | | + + + + + + | Absolute | 1.10 (H)Comment: Testing | 0.00 - 0.80 | EXTERNAL | | | Monocytes | performed at [facility];[address] | K/uL | LAB | | | | [address];[place] | | | | | | [address] | | | | + + + + + + | Absolute | 0.12Comment: Testing | 0.00 - 0.50 | EXTERNAL | | | Eosinophils | performed at [facility];[address] | K/uL | LAB | | | | [address];[place] | | | | | | [address] | | | | + + + + + + | RBC | RBC AND PLT MORPHOLOGY | | EXTERNAL | | | Morphology | APPEAR NORMALComment: | | LAB | | | | Testing performed at | | | | | | [facility];[address];[place] [phone] | | | | + + + [...] EXTERNAL | | | | performed at [facility];[address] | | LAB | | | | [address];[place], [place] | | | | | | [address] | | | | + + + [...] EXTERNAL | | | | performed at [facility] | | LAB | | | | [address];[place], [place] | | | | | | [address] | | | | + + + [...] EXTERNAL | | | | performed at [facility];888 | mmol/L | LAB | | | | [address];[place] | | | | | | [address] | | | | + + + + + + | K | 4.2Comment: Testing | 3.5 - 4.9 | EXTERNAL | | | | performed at [facility];888 | mmol/L | LAB | | | | [address];[place] | | | | | | [address] | | | | + + + + + + | Cl | 104Comment: Testing | 99 - 109 mmol/L | EXTERNAL | | | | performed at [facility];[address] | | LAB | | | | [address];[place] | | | | | | [address] | | | | + + + + + + | CO2 | 26Comment: Testing | 23 - 32 mmol/L | EXTERNAL | | | | performed at [facility];[address] | | LAB | | | | [address];[place] | | | | | | [address] | | | | + + + + + + | Anion Gap | 11Comment: Testing | 5 - 20 mmol/L | EXTERNAL | | | | performed at [facility];[address] | | LAB | | | | [address];[place] | | | | | | [address] | | | | + + + + + + | Glucose, | 123 (H)Comment: Testing | 65 - 99 mg/dL | EXTERNAL | | | Fasting | performed at [facility];[address] | | LAB | | | | [address];[place] | | | | | | [address] | | | | + + + + + + | BUN | 27 (H)Comment: Testing | 8 - 25 mg/dL | EXTERNAL | | | | performed at [facility];[address] | | LAB | | | | [address];[place] | | | | | | [address] | | | | + + + + + + | Creatinine | 0.57 (L)Comment: Testing | 0.70 - 1.30 | EXTERNAL | | | | performed at [facility];888 | mg/dL | LAB | | | | [address];[place] | | | | | | [address] | | | | + + + + + + | BUN/Creatin | 47Comment: Testing | | EXTERNAL | | | ine Ratio | performed at [facility];[address] | | LAB | | | | [address];[place] | | | | | | [address] | | | | + + + + + + | Calcium | 7.8 (L)Comment: Testing | 8.5 - 10.5 | EXTERNAL | | | | performed at [facility];888 | mg/dL | LAB | | | | [address];[place] | | | | | | [address] | | | | + + + [...] | | | | | | at [facility];[address] [place] [address] | | | | | | [facility];[place] [address] | | | | + + + [...] | | | Fingerstick | performed at [facility];8 | | LAB | | | | [address];[place], [place] | | | | | | [address] | | | | + + + [...] Conversion - 11/10/2018 8:48 AM PDT JOSE [id number] yearsXR CHEST | | 1 VIEW01/22/2015 5:58 [...] EXTERNAL | | | | performed at [facility], [address] | K/uL | LAB | | | | [facility], | | | | | | [place] [address] | | | | + + + + + + | RED CELL | 2.32 (L)Comment: Testing | 4.20 - 5.70 | EXTERNAL | | | COUNT | performed at [facility], [address] | M/uL | LAB | | | | [address], | | | | | | [place] [address] | | | | + + + + + + | Hgb | 7.6 (L)Comment: Testing | 13.2 - 17.0 | EXTERNAL | | | | performed at [facility], [address] | g/dL | LAB | | | | [address], | | | | | | [place] [address] | | | | + + + + + + | Hematocrit, | 25.2 (L)Comment: Testing | 39.0 - 50.0 % | EXTERNAL | | | POC | performed at [facility], [address] | | LAB | | | | [address], | | | | | | [place] [address] | | | | + + + + + + | MCV | 108.4 (H)Comment: | 80.0 - 100.0 fl | EXTERNAL | | | | Testing performed at | | LAB | | | | [facility], [address] [facility] | | | | | | [place] | | | | | | [address] | | | | + + + + + + | MCH | 32.7Comment: Testing | 27.0 - 34.0 pg | EXTERNAL | | | | performed at [facility], [address] | | LAB | | | | [address] [place], | | | | | | [place] [address] | | | | + + + + + + | MCHC | 30.2 (L)Comment: Testing | 32.0 - 35.5 | EXTERNAL | | | | performed at [facility], [address] | g/dL | LAB | | | | [address], | | | | | | [place] [address] | | | | + + + + + + | RDW-CV | 57.3 (H)Comment: Testing | 37 - 53 fl | EXTERNAL | | | | performed at [facility], [address] | | LAB | | | | [address], | | | | | | [place] [address] | | | | + + + + + + | Platelet | 291Comment: Testing | 150 - 400 K/uL | EXTERNAL | | | Count | performed at [facility], [address] | | LAB | | | Plasma | [address], | | | | | | [place] [address] | | | | + + + + + + | MPV | 9.1Comment: Testing | fl | EXTERNAL | | | | performed at [facility], [address] | | LAB | | | | [address], | | | | | | [place] [address] | | | | + + + + + + | Differentia | MANUALComment: Testing | | EXTERNAL | | | l Type | performed at [facility], [address] | | LAB | | | | [address], | | | | | | [place] [address] | | | | + + + + + + | Segmented | 78Comment: Testing | % | EXTERNAL | | | Neutrophils | performed at [facility], [address] | | LAB | | | Manual | [address], | | | | | | [place] [address] | | | | + + + + + + | % Bands | 6Comment: Testing | % | EXTERNAL | | | | performed at [facility], [address] | | LAB | | | | [address], | | | | | | [place] [address] | | | | + + + + + + | Lymphocytes | 6Comment: Testing | % | EXTERNAL | | | Manual | performed at [facility], [address] | | LAB | | | | [address], | | | | | | [place] [address] | | | | + + + + + + | Monocytes | 8Comment: Testing | % | EXTERNAL | | | Manual | performed at [facility], [address] | | LAB | | | | [address], | | | | | | [place] [address] | | | | + + + + + + | Eosinophils | 2Comment: Testing | % | EXTERNAL | | | Manual | performed at [facility], [address] | | LAB | | | | [address], | | | | | | [place] [address] | | | | + + + + + + | Absolute | 8.26 (H)Comment: Testing | 1.90 - 7.40 | EXTERNAL | | | Neutrophils | performed at [facility], [address] | K/uL | LAB | | | | [address], | | | | | | [place] [address] | | | | + + + + + + | Bands | 0.64 (H)Comment: Testing | 0.00 - 0.20 | EXTERNAL | | | Manual | performed at [facility], [address] | K/uL | LAB | | | | [address], | | | | | | [place] [address] | | | | + + + + + + | Absolute | 0.64 (L)Comment: Testing | 1.00 - 3.90 | EXTERNAL | | | Lymphocytes | performed at [facility], [address] | K/uL | LAB | | | | [address], | | | | | | [place] [address] | | | | + + + + + + | Absolute | 0.85 (H)Comment: Testing | 0.00 - 0.80 | EXTERNAL | | | Monocytes | performed at [facility], [address] | K/uL | LAB | | | | [address], | | | | | | [place] [address] | | | | + + + + + + | Absolute | 0.21Comment: Testing | 0.00 - 0.50 | EXTERNAL | | | Eosinophils | performed at [facility], [address] | K/uL | LAB | | | [address], | | | | | | [place] [address] | | | | + + + + + + | RBC | 2+Comment: MACRONORMAL | | EXTERNAL | | | Morphology | PLT MORPHTesting | | LAB | | | | performed at [facility], [address] | | | | | | [address], | | | | | | [place] [address] | | | | | | | [...] | | | Fingerstick | performed at [facility];[address] | | LAB | | | | [address];[place] | | | | | | [address] | | | | + + + [...] | | | Fingerstick | performed at [facility];[address] | | LAB | | | | [address];[place], [place] | | | | | | [address] | | | | + + + [...] | | | Fingerstick | performed at [facility];[address] | | LAB | | | | [address];[place], [place] | | | | | | [address] [...] | | | Fingerstick | performed at [facility];[address] | | LAB | | | | [address];[place], [place] | | | | | | [address] | | | | + + + [...] Conversion - 11/10/2018 8:48 AM PDT JOSE [id number] yearsXR CHEST | | 1 VIEW01/21/2015 5:52 [...] | | | (Calc) | performed at [facility];[address] | mmol/L | LAB | | | | [address];[place] | | | | | | [address] | | | | + + + + + + | pH, Bld | 7.429Comment: Testing | 7.300 - 7.450 | EXTERNAL | | | | performed at [facility] [place];888 | | LAB | | | | [address];[place] | | | | | | [phone] | | | | + + + [...] K/uL | LAB | | | | [facility] [place];[facility] [address] | | | | | | [address];[place] [phone] | | | | + + + + + + | RED CELL | 2.54 (L)Comment: Testing | 4.20 - 5.70 | EXTERNAL | | | COUNT | performed at [facility] [place];888 | M/uL | LAB | | | | [address];[place] | | | | | | [phone] | | | | + + + + + + | Hgb | 8.3 (L)Comment: Testing | 13.2 - 17.0 | EXTERNAL | | | | performed at [facility] [place];888 | g/dL | LAB | | | | [address];[place] | | | | | | [phone] | | | | + + + + + + | Hematocrit, | 24.5 (L)Comment: Testing | 39.0 - 50.0 % | EXTERNAL | | | POC | performed at [facility] [place];888 | | LAB | | | | [address];[place] | | | | | | [phone] | | | | + + + + + + | MCV | 96.5Comment: Testing | 80.0 - 100.0 fl | EXTERNAL | | | | performed at [facility] [place];888 | | LAB | | | | [address];[place] | | | | | | [phone] | | | | + + + + + + | MCH | 32.6Comment: Testing | 27.0 - 34.0 pg | EXTERNAL | | | | performed at [facility] [place];888 | | LAB | | | | [address];[place] | | | | | | [phone] | | | | + + + + + + | MCHC | 33.8Comment: Testing | 32.0 - 35.5 | EXTERNAL | | | | performed at [facility] [place];888 | g/dL | LAB | | | | [address];[place] | | | | | | [phone] | | | | + + + + + + | RDW-CV | 44.2Comment: Testing | 37 - 53 fl | EXTERNAL | | | | performed at [facility] [place];888 | | LAB | | | | [address];[place] | | | | | | [phone] | | | | + + + + + + | Platelet | 254Comment: Testing | 150 - 400 K/uL | EXTERNAL | | | Count | performed at [facility] [place];888 | | LAB | | | Plasma | [address];[place] | | | | | | [phone] | | | | + + + + + + | MPV | 9.4Comment: Testing | fl | EXTERNAL | | | | performed at [facility] [place];888 | | LAB | | | | [address];[place] | | | | | | [phone] | | | | + + + + + + | Differentia | AUTOMATEDComment: | | EXTERNAL | | | l Type | Testing performed at | | LAB | | | | [facility] [place];[address];[place] [phone] | | | | + + + + + + | % Segmented | 89.54Comment: Testing | % | EXTERNAL | | | | performed at [facility] [place];888 | | LAB | | | Neutrophils | [address];[place] | | | | | | [phone] | | | | + + + + + + | % | 2.26Comment: Testing | % | EXTERNAL | | | Lymphocytes | performed at [facility] [place];888 | | LAB | | | | [address];[place] | | | | | | [phone] | | | | + + + + + + | % Monocytes | 6.77Comment: Testing | % | EXTERNAL | | | | performed at [facility];[address] | | LAB | | | | [address];[place] | | | | | | [phone] | | | | + + + + + + | % | 1.18Comment: Testing | % | EXTERNAL | | | Eosinophils | performed at [facility];[address] | | LAB | | | | [address];[place] | | | | | | [phone] | | | | + + + + + + | % Basophils | 0.25Comment: Testing | % | EXTERNAL | | | | performed at [facility];[address] | | LAB | | | | [address];[place] | | | | | | [phone] | | | | + + + + + + | Absolute | 13.70 (H)Comment: | 1.90 - 7.40 | EXTERNAL | | | Segmented | Testing performed at | K/uL | LAB | | | Neutrophils | [facility];[address];[place] [phone] | | | | + + + + + + | Absolute | 0.35 (L)Comment: Testing | 1.00 - 3.90 | EXTERNAL | | | Lymphocytes | performed at [facility];888 | K/uL | LAB | | | | [address];[place] | | | | | | [phone] | | | | + + + + + + | Absolute | 1.04 (H)Comment: Testing | 0.00 - 0.80 | EXTERNAL | | | Monocytes | performed at [facility];[address] | K/uL | LAB | | | | [address];[place] | | | | | | [phone] | | | | + + + + + + | Absolute | 0.18Comment: Testing | 0.00 - 0.50 | EXTERNAL | | | Eosinophils | performed at [facility];[address] | K/uL | LAB | | | | [address];[place] | | | | | | [phone] | | | | + + + + + + | Absolute | 0.04Comment: Testing | 0.00 - 0.10 | EXTERNAL | | | Basophils | performed at [facility];[address] | K/uL | LAB | | | | [address];[place] | | | | | | [phone] | | | | + + + + + + | RBC | RBC AND PLT MORPHOLOGY | | EXTERNAL | | | Morphology | APPEAR NORMALComment: | | LAB | | | | Testing performed at | | | | | | [facility];[address];[place] [phone] | | | | + + + + + + | Platelet | ADEQUATEComment: Testing | | EXTERNAL | | | Estimate | performed at [facility];[address] | | LAB | | | | [address];[place] | | | | | | [phone] | | | | + + + + + + | Differentia | SLIDE SCANNED, AGREES | | EXTERNAL | | | l Comments | WITH AUTOMATED | | LAB | | | | RESULTS.Comment: Testing | | | | | | performed at [facility];[address] | | | | | | [address];[place] | | | | | | [phone] | | | | + + + [...] | | | es | performed at [facility] | | LAB | | | | [address];[place], [place] | | | | | | [address] | | | | + + + [...] EXTERNAL | | | | performed at [facility];[address] | | LAB | | | | [address];[place], [place] | | | | | | [address] | | | | + + + [...] EXTERNAL | | | | performed at [facility];[address] | | LAB | | | | [address];[place], [place] | | | | | | [address] | | | | + + + [...] | | Last Dose | performed at [facility];[address] | | LAB | | | | [address];[place] | | | | | | [address] | | | | + + + + + + | Time of | UNKNOWNComment: Testing | | EXTERNAL | | | Last Dose | performed at [facility];[address] | | LAB | | | | [address];[place] | | | | | | [phone] | | | | + + + + + + | Digoxin | 1.9Comment: Testing | 0.90 - 2.00 | EXTERNAL | | | level | performed at [facility];888 | ng/mL | LAB | | | | [address];[place] | | | | | | [phone] | | | | + + + [...] EXTERNAL | | | | performed at [facility];888 | mmol/L | LAB | | | | [address];[place] | | | | | | [phone] | | | | + + + + + + | K | 4.3Comment: Testing | 3.5 - 4.9 | EXTERNAL | | | | performed at [facility];888 | mmol/L | LAB | | | | [address];[place] | | | | | | [phone] | | | | + + + + + + | Cl | 106Comment: Testing | 99 - 109 mmol/L | EXTERNAL | | | | performed at [facility];[address] | | LAB | | | | [address];[place] | | | | | | [phone] | | | | + + + + + + | CO2 | 23Comment: Testing | 23 - 32 mmol/L | EXTERNAL | | | | performed at [facility];[address] | | LAB | | | | [address];[place] | | | | | | [phone] | | | | + + + + + + | Anion Gap | 11Comment: Testing | 5 - 20 mmol/L | EXTERNAL | | | | performed at [facility];[address] | | LAB | | | | [address];[place] | | | | | | [phone] | | | | + + + + + + | Glucose, | 140 (H)Comment: Testing | 65 - 99 mg/dL | EXTERNAL | | | Fasting | performed at [facility];[address] | | LAB | | | | [address];[place] | | | | | | [phone] | | | | + + + + + + | BUN | 27 (H)Comment: Testing | 8 - 25 mg/dL | EXTERNAL | | | | performed at [facility];[address] | | LAB | | | | [address];[place] | | | | | | [phone] | | | | + + + + + + | Creatinine | 0.65 (L)Comment: Testing | 0.70 - 1.30 | EXTERNAL | | | | performed at [facility];888 | mg/dL | LAB | | | | [address];[place] | | | | | | [phone] | | | | + + + + + + | BUN/Creatin | 42Comment: Testing | | EXTERNAL | | | ine Ratio | performed at [facility];[address] | | LAB | | | | [address];[place] | | | | | | [phone] | | | | + + + + + + | Calcium | 7.4 (L)Comment: Testing | 8.5 - 10.5 | EXTERNAL | | | | performed at [facility];888 | mg/dL | LAB | | | | [address];[place] | | | | | | [phone] | | | | + + + [...] | | | | | | at [facility];[address] | | [address];[place] [phone] | | | | + + + [...] | | | Fingerstick | performed at [facility];[address] | | LAB | | | | [address];[place], [place] | | | | | | [address] | | | | + + + [...] | | | Fingerstick | performed at [facility];[address] | | LAB | | | | [address];[place] | | | | | | [address] | | | | + + + [...] EXTERNAL | | | | performed at [facility];888 | mmol/L | LAB | | | | [address];[place], [place] | | | | | | [address] | | | | + + + [...] EXTERNAL | | | | performed at [facility];[address] | | LAB | | | | [address];[place], [place] | | | | | | [address] | | | | + + + [...] EXTERNAL | | | | performed at [facility];[address] | | LAB | | | | [address];[place], [place] | | | | | | [address] | | | | + + + [...] | | Last Dose | performed at [facility];[address] | | LAB | | | | [address];[place] | | | | | | [phone] | | | | + + + + + + | Time of | UNKNOWNComment: Testing | | EXTERNAL | | | Last Dose | performed at [facility];[address] | | LAB | | | | [address];[place] | | | | | | [phone] | | | | + + + + + + | Digoxin | 1.4Comment: Testing | 0.90 - 2.00 | EXTERNAL | | | level | performed at [facility], [address] | ng/mL | LAB | | | | [address], | | | | | | [place] [address] | | | | + + + [...] | | | Fingerstick | performed at [facility];[address] | | LAB | | | | [address];[place], [place] | | | | | | [address] | | | | + + + [...] | | | Fingerstick | performed at [facility];[address] | | LAB | | | | [address];[place] | | | | | | [phone] | | | | + + + [...] SEEN | | | Testing performed at [facility];[address] | [address];[place] [address] CULTURE | | | NO GROWTH | | | Testing performed at [facility], [address] [place] | | | [address] | | + + + + +---------+ [...] | EXTERNAL LAB | | performed at [facility], [address], [place] [address] FLUID | | | TP SOURCE PLEURAL FLUID Testing | | | performed at [facility];[address] [facility];[place] [address] | | + + + + +---------+ [...] EXTERNAL LAB | | Testing performed at [facility], [address], [place], [place] | | | [address] Glucose, Fluid Type PLEURAL FLUID | | | Testing performed at [facility];[address] [facility];[place] [address] | | + + + + +---------+ [...] EXTERNAL LAB | | Testing performed at [facility];[address] [place] [address];[place] [address] | | + + + + +---------+ [...] | | | | [address];[place] [phone] | | | | + + + + + + | RED CELL | 2.50 (L)Comment: Testing | 4.20 - 5.70 | EXTERNAL | | | COUNT | performed at [facility];888 | M/uL | LAB | | | | [address];[place] | | | | | | [phone] | | | | + + + + + + | Hgb | 8.3 (L)Comment: Testing | 13.2 - 17.0 | EXTERNAL | | | | performed at [facility];888 | g/dL | LAB | | | | [address];[place] | | | | | | [phone] | | | | + + + + + + | Hematocrit, | 24.1 (L)Comment: Testing | 39.0 - 50.0 % | EXTERNAL | | | POC | performed at [facility];[address] | | LAB | | | | [address];[place] | | | | | | [phone] | | | | + + + + + + | MCV | 96.5Comment: Testing | 80.0 - 100.0 fl | EXTERNAL | | | | performed at [facility];[address] | | LAB | | | | [address];[place] | | | | | | [phone] | | | | + + + + + + | MCH | 33.3Comment: Testing | 27.0 - 34.0 pg | EXTERNAL | | | | performed at [facility];[address] | | LAB | | | | [address];[place] | | | | | | [phone] | | | | + + + + + + | MCHC | 34.5Comment: Testing | 32.0 - 35.5 | EXTERNAL | | | | performed at [facility];888 | g/dL | LAB | | | | [address];[place] | | | | | | [phone] | | | | + + + + + + | RDW-CV | 42.9Comment: Testing | 37 - 53 fl | EXTERNAL | | | | performed at [facility];[address] | | LAB | | | | [address];[place] | | | | | | [phone] | | | | + + + + + + | Platelet | 185Comment: Testing | 150 - 400 K/uL | EXTERNAL | | | Count | performed at [facility];[address] | | LAB | | | Plasma | [address];[place] | | | | | | [phone] | | | | + + + + + + | MPV | 9.7Comment: Testing | fl | EXTERNAL | | | | performed at [facility];[address] | | LAB | | | | [address];[place] | | | | | | [phone] | | | | + + + + + + | Differentia | AUTOMATEDComment: | | EXTERNAL | | | l Type | Testing performed at | | LAB | | | | [facility];[address];[place] [phone] | | | | + + + + + + | % Segmented | 90.04Comment: Testing | % | EXTERNAL | | | | performed at [facility];[address] | | LAB | | | Neutrophils | [address];[place] | | | | | | [phone] | | | | + + + + + + | % | 2.67Comment: Testing | % | EXTERNAL | | | Lymphocytes | performed at [facility];[address] | | LAB | | | | [address];[place] | | | | | | [phone] | | | | + + + + + + | % Monocytes | 4.91Comment: Testing | % | EXTERNAL | | | | performed at [facility];[address] | | LAB | | | | [address];[place] | | | | | | [phone] | | | | + + + + + + | % | 2.15Comment: Testing | % | EXTERNAL | | | Eosinophils | performed at [facility];[address] | | LAB | | | | [address];[place] | | | | | | [phone] | | | | + + + + + + | % Basophils | 0.23Comment: Testing | % | EXTERNAL | | | | performed at [facility];[address] | | LAB | | | | [address];[place] | | | | | | [phone] | | | | + + + + + + | Absolute | 10.54 (H)Comment: | 1.90 - 7.40 | EXTERNAL | | | Segmented | Testing performed at | K/uL | LAB | | | Neutrophils | [facility];[address];[place] [phone] | | | | + + + + + + | Absolute | 0.31 (L)Comment: Testing | 1.00 - 3.90 | EXTERNAL | | | Lymphocytes | performed at [facility];888 | K/uL | LAB | | | | [address];[place] | | | | | | [phone] | | | | + + + + + + | Absolute | 0.57Comment: Testing | 0.00 - 0.80 | EXTERNAL | | | Monocytes | performed at [facility];888 | K/uL | LAB | | | | [address];[place] | | | | | | [phone] | | | | + + + + + + | Absolute | 0.25Comment: Testing | 0.00 - 0.50 | EXTERNAL | | | Eosinophils | performed at [facility];888 | K/uL | LAB | | | | [address];[place] | | | | | | [phone] | | | | + + + + + + | Absolute | 0.03Comment: Testing | 0.00 - 0.10 | EXTERNAL | | | Basophils | performed at [facility];888 | K/uL | LAB | | | | [address];[place] | | | | | | [phone] | | | | + + + + + + | RBC | RBC AND PLT MORPHOLOGY | | EXTERNAL | | | Morphology | APPEAR NORMALComment: | | LAB | | | | Testing performed at | | | | | | [facility];[address];[place] [phone] | | | | + + + + + + | Platelet | ADEQUATEComment: Testing | | EXTERNAL | | | Estimate | performed at [facility];[address] | | LAB | | | | [address];[place] | | | | | | [phone] | | | | + + + + + + | Differentia | SLIDE SCANNED, AGREES | | EXTERNAL | | | l Comments | WITH AUTOMATED | | LAB | | | | RESULTS.Comment: Testing | | | | | | performed at [facility];[address] | | | | | | [address];[place] | | | | | | [phone] | | | | + + + [...] EXTERNAL | | | | performed at [facility];[address] | | LAB | | | | [address];[place], [place] | | | | | | [address] | | | | + + + [...] EXTERNAL | | | | performed at [facility];[address] | | LAB | | | | [address];[place] | | | | | | [phone] | | | | + + + [...] EXTERNAL | | | | performed at [facility];[address] | | LAB | | | | [address];[place], [place] | | | | | | [address] | | | | + + + [...] | | | Total | performed at [facility];[address] | | LAB | | | | [address];[place] | | | | | | [phone] | | | | + + + + + + | Albumin | 1.2 (L)Comment: Testing | 3.3 - 4.8 g/dL | EXTERNAL | | | | performed at [facility];[address] | | LAB | | | | [address];[place] | | | | | | [phone] | | | | + + + + + + | Bilirubin | 3.0 (H)Comment: Testing | 0.1 - 1.5 mg/dL | EXTERNAL | | | Total | performed at [facility];[address] | | LAB | | | | [address];[place] | | | | | | [phone] | | | | + + + + + + | Bilirubin | 2.5 (H)Comment: Testing | 0.0 - 0.3 mg/dL | EXTERNAL | | | Direct | performed at [facility];[address] | | LAB | | | | [address];[place] | | | | | | [phone] | | | | + + + + + + | ALP, | 88Comment: Testing | 35 - 115 U/L | EXTERNAL | | | External | performed at [facility];[address] | | LAB | | | | [address];[place] | | | | | | [phone] | | | | + + + + + + | AST | 28Comment: Testing | 10 - 45 U/L | EXTERNAL | | | | performed at [facility];[address] | | LAB | | | | [address];[place] | | | | | | [phone] | | | | + + + + + + | ALT | 82 (H)Comment: Testing | 10 - 65 U/L | EXTERNAL | | | | performed at [facility];[address] | | LAB | | | | [address];[place] | | | | | | [phone] | | | | + + + [...] EXTERNAL | | | | performed at [facility];888 | mmol/L | LAB | | | | [address];[place] | | | | | | [phone] | | | | + + + + + + | K | 4.1Comment: Testing | 3.5 - 4.9 | EXTERNAL | | | | performed at [facility];888 | mmol/L | LAB | | | | [address];[place] | | | | | | [phone] | | | | + + + + + + | Cl | 106Comment: Testing | 99 - 109 mmol/L | EXTERNAL | | | | performed at [facility];[address] | | LAB | | | | [address];[place] | | | | | | [phone] | | | | + + + + + + | CO2 | 22 (L)Comment: Testing | 23 - 32 mmol/L | EXTERNAL | | | | performed at [facility];[address] | | LAB | | | | [address];[place] | | | | | | [phone] | | | | + + + + + + | Anion Gap | 12Comment: Testing | 5 - 20 mmol/L | EXTERNAL | | | | performed at [facility];[address] | | LAB | | | | [address];[place] | | | | | | [phone] | | | | + + + + + + | Glucose, | 119 (H)Comment: Testing | 65 - 99 mg/dL | EXTERNAL | | | Fasting | performed at [facility];[address] | | LAB | | | | [address];[place] | | | | | | [phone] | | | | + + + + + + | BUN | 27 (H)Comment: Testing | 8 - 25 mg/dL | EXTERNAL | | | | performed at [facility];[address] | | LAB | | | | [address];[place] | | | | | | [phone] | | | | + + + + + + | Creatinine | 0.70Comment: Testing | 0.70 - 1.30 | EXTERNAL | | | | performed at [facility];888 | mg/dL | LAB | | | | [address];[place] | | | | | | [phone] | | | | + + + + + + | BUN/Creatin | 38Comment: Testing | | EXTERNAL | | | ine Ratio | performed at [facility];[address] | | LAB | | | | [address];[place] | | | | | | [phone] | | | | + + + + + + | Calcium | 7.1 (L)Comment: Testing | 8.5 - 10.5 | EXTERNAL | | | | performed at [facility];888 | mg/dL | LAB | | | | [address];[place] | | | | | | [phone] | | | | + + + [...] | | | | | | at [facility];[address];[place] [phone] | | | | + + + [...] EXTERNAL | | | | performed at [facility];888 | mmol/L | LAB | | | | [address];[place], [place] | | | | | | [address] | | | | + + + [...] appear stable. RADIA Electronically signed by Joselin Wnog MD on Jan 20 2015 4:36AM Referring Provider Line: [phone] | | | ID: [id number] | | [...] 2015 4:36AM Referring | | Provider Line: [phone] ID: [id number] | |Lungs/Pleura: Opacity in the [...] 20 2015 4:36AM Referring Provider Line: [phone] ID: [id number] | + + POC Glucose (01/20/2015 12:38 AM PDT) + + + + + + | Component | Value | Ref Range | Performed | Pathologist | | | | | At | Signature | + + + + + + | Glucose, | 130 (H)Comment: Testing | 65 - 99 mg/dL | EXTERNAL | | | Fingerstick | performed at [facility];8 | | LAB | | | | [address];[place], [place] | | | | | | [address] | | | | + + + [...] | | | Fingerstick | performed at [facility];[address] | | LAB | | | | [address];[place] | | | | | | [address] | | | | + + + [...] | | | Fingerstick | performed at [facility];[address] | | LAB | | | | [address];[place] | | | | | | [phone] | | | | + + + [...] | | | Fingerstick | performed at [facility];88 | | LAB | | | | [address];[place] | | | | | | [phone] | | | | + + + [...] K/uL | LAB | | | | [facility];[address];[place] [phone] | | | | + + + + + + | RED CELL | 2.48 (L)Comment: Testing | 4.20 - 5.70 | EXTERNAL | | | COUNT | performed at [facility];888 | M/uL | LAB | | | | [address];[place] | | | | | | [phone] | | | | + + + + + + | Hgb | 8.4 (L)Comment: Testing | 13.2 - 17.0 | EXTERNAL | | | | performed at [facility];888 | g/dL | LAB | | | | [address];[place] | | | | | | [phone] | | | | + + + + + + | Hematocrit, | 24.0 (L)Comment: Testing | 39.0 - 50.0 % | EXTERNAL | | | POC | performed at [facility];[address] | | LAB | | | | [address];[place] | | | | | | [phone] | | | | + + + + + + | MCV | 96.8Comment: Testing | 80.0 - 100.0 fl | EXTERNAL | | | | performed at [facility];[address] | | LAB | | | | [address];[place] | | | | | | [phone] | | | | + + + + + + | MCH | 33.6Comment: Testing | 27.0 - 34.0 pg | EXTERNAL | | | | performed at [facility];[address] | | LAB | | | | [address];[place] | | | | | | [phone] | | | | + + + + + + | MCHC | 34.8Comment: Testing | 32.0 - 35.5 | EXTERNAL | | | | performed at [facility] [place];888 | g/dL | LAB | | | | [address];[place] | | | | | | [phone] | | | | + + + + + + | RDW-CV | 44.6Comment: Testing | 37 - 53 fl | EXTERNAL | | | | performed at [facility] [place];[address] | | LAB | | | | [address];[place] | | | | | | [phone] | | | | + + + + + + | Platelet | 144 (L)Comment: Testing | 150 - 400 K/uL | EXTERNAL | | | Count | performed at [facility] [place];[address] | | LAB | | | Plasma | [address];[place] | | | | | | [phone] | | | | + + + + + + | MPV | 9.9Comment: Testing | fl | EXTERNAL | | | | performed at [facility] [place];[address] | | LAB | | | | [address];[place] | | | | | | [phone] | | | | + + + + + + | Differentia | MANUALComment: Testing | | EXTERNAL | | | l Type | performed at [facility] [place];[address] | | LAB | | | | [address];[place] | | | | | | [phone] | | | | + + + + + + | Segmented | 85Comment: Testing | % | EXTERNAL | | | Neutrophils | performed at [facility] [place];[address] | | LAB | | | Manual | [address];[place] | | | | | | [phone] | | | | + + + + + + | % Bands | 2Comment: Testing | % | EXTERNAL | | | | performed at [facility] [place];[address] | | LAB | | | | [address];[place] | | | | | | [phone] | | | | + + + + + + | Lymphocytes | 6Comment: Testing | % | EXTERNAL | | | Manual | performed at [facility] [place];[address] | | LAB | | | | [address];[place] | | | | | | [phone] | | | | + + + + + + | Monocytes | 6Comment: Testing | % | EXTERNAL | | | Manual | performed at [facility] [place];[address] | | LAB | | | | [address];[place] | | | | | | [phone] | | | | + + + + + + | Eosinophils | 1Comment: Testing | % | EXTERNAL | | | Manual | performed at [facility] [place];[address] | | LAB | | | | [address];[place] | | | | | | [phone] | | | | + + + + + + | Absolute | 9.80 (H)Comment: Testing | 1.90 - 7.40 | EXTERNAL | | | Neutrophils | performed at [facility] [place];888 | K/uL | LAB | | | | [address];[place] | | | | | | [phone] | | | | + + + + + + | Bands | 0.23 (H)Comment: Testing | 0.00 - 0.20 | EXTERNAL | | | Manual | performed at [facility] [place];888 | K/uL | LAB | | | | [address];[place] | | | | | | [phone] | | | | + + + + + + | Absolute | 0.69 (L)Comment: Testing | 1.00 - 3.90 | EXTERNAL | | | Lymphocytes | performed at [facility] [place];888 | K/uL | LAB | | | | [address];[place] | | | | | | [phone] | | | | + + + + + + | Absolute | 0.69Comment: Testing | 0.00 - 0.80 | EXTERNAL | | | Monocytes | performed at [facility];[address] | K/uL | LAB | | | | [address];[place] | | | | | | [address] | | | | + + + + + + | Absolute | 0.12Comment: Testing | 0.00 - 0.50 | EXTERNAL | | | Eosinophils | performed at [facility];[address] | K/uL | LAB | | | | [address];[place] | | | | | | [address] | | | | + + + + + + | Platelet | DECREASEDComment: | | EXTERNAL | | | Estimate | Testing performed at | | LAB | | | | [facility];[address] | | [address];[place] [phone] | | | | + + + + + + | RBC | RBC AND PLT MORPHOLOGY | | EXTERNAL | | | Morphology | APPEAR NORMALComment: | | LAB | | | | Testing performed at | | | | | | [facility];[address] [facility] | | | | | | [facility];[place] [address] | | | | + + + [...] | | | es | performed at [facility] | | LAB | | | | [address] [facility];[place], [place] | | | | | | [address] | | | | + + + [...] EXTERNAL | | | | performed at [facility];[address] | | LAB | | | | [address];[place], [place] | | | | | | [address] | | | | + + + [...] EXTERNAL | | | | performed at [facility];888 | | LAB | | | | [address];[place], [place] | | | | | | [address] | | | | + + + [...] EXTERNAL | | | | performed at [facility];[address] | | LAB | | | | [address];[place], [place] | | | | | | [address] | | | | + + + [...] | | | Total | performed at [facility];888 | | LAB | | | | [address];[place] | | | | | | [phone] | | | | + + + + + + | Albumin | 1.1 (L)Comment: Testing | 3.3 - 4.8 g/dL | EXTERNAL | | | | performed at [facility];888 | | LAB | | | | [address];[place] | | | | | | [address] | | | | + + + + + + | Bilirubin | 3.0 (H)Comment: Testing | 0.1 - 1.5 mg/dL | EXTERNAL | | | Total | performed at [facility];[address] | | LAB | | | | [address];[place] | | | | | | [address] | | | | + + + + + + | Bilirubin | 2.3 (H)Comment: Testing | 0.0 - 0.3 mg/dL | EXTERNAL | | | Direct | performed at [facility];[address] | | LAB | | | | [address];[place] | | | | | | [address] | | | | + + + + + + | ALP, | 90Comment: Testing | 35 - 115 U/L | EXTERNAL | | | External | performed at [facility];[address] | | LAB | | | | [address];[place] | | | | | | [phone] | | | | + + + + + + | AST | 26Comment: Testing | 10 - 45 U/L | EXTERNAL | | | | performed at [facility];[address] | | LAB | | | | [address];[place] | | | | | | [address] | | | | + + + + + + | ALT | 113 (H)Comment: Testing | 10 - 65 U/L | EXTERNAL | | | | performed at [facility];[address] | | LAB | | | | [address];[place] | | | | | | [address] | | | | + + + [...] EXTERNAL | | | | performed at [facility];888 | mmol/L | LAB | | | | [address];[place] | | | | | | [address] | | | | + + + + + + | K | 4.2Comment: Testing | 3.5 - 4.9 | EXTERNAL | | | | performed at [facility];888 | mmol/L | LAB | | | | [address];[place] | | | | | | [address] | | | | + + + + + + | Cl | 106Comment: Testing | 99 - 109 mmol/L | EXTERNAL | | | | performed at [facility];[address] | | LAB | | | | [address];[place] | | | | | | [phone] | | | | + + + + + + | CO2 | 26Comment: Testing | 23 - 32 mmol/L | EXTERNAL | | | | performed at [facility];[address] | | LAB | | | | [address];[place] | | | | | | [address] | | | | + + + + + + | Anion Gap | 10Comment: Testing | 5 - 20 mmol/L | EXTERNAL | | | | performed at [facility];[address] | | LAB | | | | [address];[place] | | | | | | [address] | | | | + + + + + + | Glucose, | 128 (H)Comment: Testing | 65 - 99 mg/dL | EXTERNAL | | | Fasting | performed at [facility];[address] | | LAB | | | | [address];[place] | | | | | | [phone] | | | | + + + + + + | BUN | 23Comment: Testing | 8 - 25 mg/dL | EXTERNAL | | | | performed at [facility];[address] | | LAB | | | | [address];[place] | | | | | | [address] | | | | + + + + + + | Creatinine | 0.67 (L)Comment: Testing | 0.70 - 1.30 | EXTERNAL | | | | performed at [facility];888 | mg/dL | LAB | | | | [address];[place] | | | | | | [address] | | | | + + + + + + | BUN/Creatin | 35Comment: Testing | | EXTERNAL | | | ine Ratio | performed at [facility];[address] | | LAB | | | | [address];[place] | | | | | | [phone] | | | | + + + + + + | Calcium | 7.2 (L)Comment: Testing | 8.5 - 10.5 | EXTERNAL | | | | performed at [facility];888 | mg/dL | LAB | | | | [address];[place] | | | | | | [address] | | | | + + + [...] | | | | | | at [facility];[address] | | | | | | [address];[place] [address] | | | | + + + [...] | | | Fingerstick | performed at [facility] | | LAB | | | | [address];[place], [place] | | | | | | [address] | | | | + + + [...] | | | Fingerstick | performed at [facility];[address] | | LAB | | | | [address];[place], [place] | | | | | | [address] | | | | + + + [...] | | | Fingerstick | performed at [facility];[address] | | LAB | | | | [address];[place], [place] | | | | | | [address] | | | | + + + [...] | | | Fingerstick | performed at [facility];888 | | LAB | | | | [address];[place] | | | | | | [address] | | | | + + + [...] K/uL | LAB | | | | [facility];[address] | | | | | | [address];[place] [address] | | | | + + + + + + | RED CELL | 2.79 (L)Comment: Testing | 4.20 - 5.70 | EXTERNAL | | | COUNT | performed at [facility];[address] | M/uL | LAB | | | | [address];[place] | | | | | | [address] | | | | + + + + + + | Hgb | 9.0 (L)Comment: Testing | 13.2 - 17.0 | EXTERNAL | | | | performed at [facility];888 | g/dL | LAB | | | | [address];[place] | | | | | | [address] | | | | + + + + + + | Hematocrit, | 27.5 (L)Comment: Testing | 39.0 - 50.0 % | EXTERNAL | | | POC | performed at [facility];[address] | | LAB | | | | [address];[place] | | | | | | [phone] | | | | + + + + + + | MCV | 98.3Comment: Testing | 80.0 - 100.0 fl | EXTERNAL | | | | performed at [facility];[address] | | LAB | | | | [address];[place] | | | | | | [address] | | | | + + + + + + | MCH | 32.2Comment: Testing | 27.0 - 34.0 pg | EXTERNAL | | | | performed at [facility];[address] | | LAB | | | | [address];[place] | | | | | | [address] | | | | + + + + + + | MCHC | 32.7Comment: Testing | 32.0 - 35.5 | EXTERNAL | | | | performed at [facility];888 | g/dL | LAB | | | | [address];[place] | | | | | | [phone] | | | | + + + + + + | RDW-CV | 45.5Comment: Testing | 37 - 53 fl | EXTERNAL | | | | performed at [facility];[address] | | LAB | | | | [address];[place] | | | | | | [address] | | | | + + + + + + | Platelet | 132 (L)Comment: Testing | 150 - 400 K/uL | EXTERNAL | | | Count | performed at [facility];888 | | LAB | | | Plasma | [address];[place] | | | | | | [phone] | | | | + + + + + + | MPV | 9.9Comment: Testing | fl | EXTERNAL | | | | performed at [facility];[address] | | LAB | | | | [address];[place] | | | | | | [address] | | | | + + + + + + | Differentia | MANUALComment: Testing | | EXTERNAL | | | l Type | performed at [facility];[address] | | LAB | | | | [address];[place] | | | | | | [address] | | | | + + + + + + | Nucleated | 1 (H)Comment: Testing | /100WBC | EXTERNAL | | | Red Blood | performed at [facility];888 | | LAB | | | Cells | [address];[place] | | | | | | [address] | | | | + + + + + + | Segmented | 87Comment: Testing | % | EXTERNAL | | | Neutrophils | performed at [facility];[address] | | LAB | | | Manual | [address];[place] | | | | | | [phone] | | | | + + + + + + | % | 3Comment: Testing | % | EXTERNAL | | | Metamyelocy | performed at [facility];[address] | | LAB | | | romaine | [address];[place] | | | | | | [address] | | | | + + + + + + | % | 2Comment: Testing | % | EXTERNAL | | | Myelocytes | performed at [facility];[address] | | LAB | | | | [address];[place] | | | | | | [address] | | | | + + + + + + | Lymphocytes | 4Comment: Testing | % | EXTERNAL | | | Manual | performed at [facility];[address] | | LAB | | | | [address];[place] | | | | | | [address] | | | | + + + + + + | Monocytes | 3Comment: Testing | % | EXTERNAL | | | Manual | performed at [facility];[address] | | LAB | | | | [address];[place] | | | | | | [address] | | | | + + + + + + | Eosinophils | 1Comment: Testing | % | EXTERNAL | | | Manual | performed at [facility];[address] | | LAB | | | | [address];[place] | | | | | | [address] | | | | + + + + + + | Absolute | 11.85 (H)Comment: | 1.90 - 7.40 | EXTERNAL | | | Neutrophils | Testing performed at | K/uL | LAB | | | | [facility];[address];[place] [phone] | | | | + + + + + + | Absolute | 0.41 (H)Comment: Testing | K/uL | EXTERNAL | | | Metamyelocy | performed at [facility];888 | | LAB | | | romaine | [address];[place] | | | | | | [address] | | | | + + + + + + | Absolute | 0.27 (H)Comment: Testing | K/uL | EXTERNAL | | | Myelocytes | performed at [facility];[address] | | LAB | | | | [address];[place] | | | | | | [address] | | | | + + + + + + | Absolute | 0.55 (L)Comment: Testing | 1.00 - 3.90 | EXTERNAL | | | Lymphocytes | performed at [facility];[address] | K/uL | LAB | | | | [address];[place] | | | | | | [address] | | | | + + + + + + | Absolute | 0.41Comment: Testing | 0.00 - 0.80 | EXTERNAL | | | Monocytes | performed at [facility];[address] | K/uL | LAB | | | | [address];[place] | | | | | | [address] | | | | + + + + + + | Absolute | 0.14Comment: Testing | 0.00 - 0.50 | EXTERNAL | | | Eosinophils | performed at [facility];[address] | K/uL | LAB | | | | [address];[place] | | | | | | [address] | | | | + + + + + + | RBC | RBC AND PLT MORPHOLOGY | | EXTERNAL | | | Morphology | APPEAR NORMALComment: | | LAB | | | | Testing performed at | | | | | | [facility];[address] | | | | | | [facility];[place] [address] | | | | + + + [...] | | | es | performed at [facility], [address] | | LAB | | | | [address], | | | | | | [place] [address] | | | | + + + [...] EXTERNAL | | | | performed at [facility];[address] | | LAB | | | | [facility];[place], [place] | | | | | | [address] | | | | + + + [...] EXTERNAL | | | | performed at [facility] | | LAB | | | | [address];[place] | | | | | | [address] | | | | + + + [...] EXTERNAL | | | | performed at [facility];[address] | | LAB | | | | [address];[place], [place] | | | | | | [address] | | | | + + + [...] | | Last Dose | performed at [facility];[address] | | LAB | | | | [address];[place] | | | | | | [address] | | | | + + + + + + | Time of | UNKNOWNComment: Testing | | EXTERNAL | | | Last Dose | performed at [facility];[address] | | LAB | | | | [address];[place] | | | | | | [address] | | | | + + + + + + | Digoxin | 0.8 (L)Comment: Testing | 0.90 - 2.00 | EXTERNAL | | | level | performed at [facility];888 | ng/mL | LAB | | | | [address];[place] | | | | | | [address] | | | | + + + [...] | | | Total | performed at [facility];[address] | | LAB | | | | [address];[place] | | | | | | [address] | | | | + + + + + + | Albumin | 1.2 (L)Comment: Testing | 3.3 - 4.8 g/dL | EXTERNAL | | | | performed at [facility];[address] | | LAB | | | | [address];[place] | | | | | | [address] | | | | + + + + + + | Bilirubin | 3.0 (H)Comment: Testing | 0.1 - 1.5 mg/dL | EXTERNAL | | | Total | performed at [facility];[address] | | LAB | | | | [address];[place] | | | | | | [address] | | | | + + + + + + | Bilirubin | 2.5 (H)Comment: Testing | 0.0 - 0.3 mg/dL | EXTERNAL | | | Direct | performed at [facility];[address] | | LAB | | | | [address];[place] | | | | | | [address] | | | | + + + + + + | ALP, | 111Comment: Testing | 35 - 115 U/L | EXTERNAL | | | External | performed at [facility];[address] | | LAB | | | | [address];[place] | | | | | | [address] | | | | + + + + + + | AST | 55 (H)Comment: Testing | 10 - 45 U/L | EXTERNAL | | | | performed at [facility];[address] | | LAB | | | | [address];[place] | | | | | | [address] | | | | + + + + + + | ALT | 197 (H)Comment: Testing | 10 - 65 U/L | EXTERNAL | | | | performed at [facility];[address] | | LAB | | | | [address];[place], [place] | | | | | | [address] | | | | + + + [...] EXTERNAL | | | | performed at [facility];888 | mmol/L | LAB | | | | [address];[place] | | | | | | [address] | | | | + + + + + + | K | 4.4Comment: Testing | 3.5 - 4.9 | EXTERNAL | | | | performed at [facility];888 | mmol/L | LAB | | | | [address];[place] | | | | | | [address] | | | | + + + + + + | Cl | 108Comment: Testing | 99 - 109 mmol/L | EXTERNAL | | | | performed at [facility];[address] | | LAB | | | | [address];[place] | | | | | | [address] | | | | + + + + + + | CO2 | 27Comment: Testing | 23 - 32 mmol/L | EXTERNAL | | | | performed at [facility];[address] | | LAB | | | | [address];[place] | | | | | | [address] | | | | + + + + + + | Anion Gap | 10Comment: Testing | 5 - 20 mmol/L | EXTERNAL | | | | performed at [facility];[address] | | LAB | | | | [address];[place] | | | | | | [address] | | | | + + + + + + | Glucose, | 129 (H)Comment: Testing | 65 - 99 mg/dL | EXTERNAL | | | Fasting | performed at [facility];[address] | | LAB | | | | [address];[place] | | | | | | [phone] | | | | + + + + + + | BUN | 25Comment: Testing | 8 - 25 mg/dL | EXTERNAL | | | | performed at [facility];[address] | | LAB | | | | [address];[place] | | | | | | [address] | | | | + + + + + + | Creatinine | 0.61 (L)Comment: Testing | 0.70 - 1.30 | EXTERNAL | | | | performed at [facility];888 | mg/dL | LAB | | | | [address];[place] | | | | | | [address] | | | | + + + + + + | BUN/Creatin | 41Comment: Testing | | EXTERNAL | | | ine Ratio | performed at [facility];[address] | | LAB | | | | [address];[place] | | | | | | [address] | | | | + + + + + + | Calcium | 7.4 (L)Comment: Testing | 8.5 - 10.5 | EXTERNAL | | | | performed at [facility];888 | mg/dL | LAB | | | | [address];[place] | | | | | | [address] | | | | + + + [...] | | | | | | at [facility];[address] [place] [address] | | | | | | [facility];[place] [address] | | | | + + + [...] | | | Fingerstick | performed at [facility];[address] | | LAB | | | | [address];[place] | | | | | | [address] | | | | + + + [...] RODS | | | Testing performed at [facility], [address] | | | [place] [address] | | + + + + +---------+ [...] | | | Fingerstick | performed at [facility];888 | | LAB | | | | [address];[place] | | | | | | [address] | | | | + + + [...] | + + + | JOSE E[place] HEPATOBILIARY SCAN WITH CCK 01/17/2015 2:31 PM [...] | | | Fingerstick | performed at [facility] | | LAB | | | | [address];[place], [place] | | | | | | [address] | | | | + + + [...] | | | Fingerstick | performed at [facility];[address] | | LAB | | | | [address];[place] | | | | | | [address] | | | | + + + [...] | | | Fingerstick | performed at [facility];[address] | | LAB | | | | [address];[place] | | | | | | [address] | | | | + + + [...] | | | | [place] [address] | | | | + + + + + + | RED CELL | 2.78 (L)Comment: Testing | 4.20 - 5.70 | EXTERNAL | | | COUNT | performed at [facility], [address] | [address]/uL | LAB | | | | [address], | | | | | | [place] [address] | | | | + + + + + + | Hgb | 9.2 (L)Comment: Testing | 13.2 - 17.0 | EXTERNAL | | | | performed at [facility], [address] | g/dL | LAB | | | | [address], | | | | | | [place] [address] | | | | + + + + + + | Hematocrit, | 27.1 (L)Comment: Testing | 39.0 - 50.0 % | EXTERNAL | | | POC | performed at [facility], [address] | | LAB | | | | [address], | | | | | | [place] [address] | | | | + + + + + + | MCV | 97.5Comment: Testing | 80.0 - 100.0 fl | EXTERNAL | | | | performed at [facility], [address] | | LAB | | | | [address], | | | | | | [place] [address] | | | | + + + + + + | MCH | 33.1Comment: Testing | 27.0 - 34.0 pg | EXTERNAL | | | | performed at [facility], [address] | | LAB | | | [address], | | | | | | [place] [address] | | | | + + + + + + | MCHC | 33.9Comment: Testing | 32.0 - 35.5 | EXTERNAL | | | | performed at [facility], [address] | g/dL | LAB | | | | [address], | | | | | | [place] [address] | | | | + + + + + + | RDW-CV | 42.9Comment: Testing | 37 - 53 fl | EXTERNAL | | | | performed at [facility], [address] | | LAB | | | | [address], | | | | | | [place] [address] | | | | + + + + + + | Platelet | 110 (L)Comment: Testing | 150 - 400 K/uL | EXTERNAL | | | Count | performed at [facility], [address] | | LAB | | | Plasma | [address], | | | | | | [place] [address] | | | | + + + + + + | MPV | 10.6Comment: Testing | fl | EXTERNAL | | | | performed at [facility], [address] | | LAB | | | | [address], | | | | | | [place] [address] | | | | + + + + + + | Differentia | MANUALComment: Testing | | EXTERNAL | | | l Type | performed at [facility], [address] | | LAB | | | | [address], | | | | | | [place] [address] | | | | + + + + + + | Segmented | 87Comment: Testing | % | EXTERNAL | | | Neutrophils | performed at [facility], [address] | | LAB | | | Manual | [address], | | | | | | [place] [address] | | | | + + + [...] | | | | [place] [address] | | | | + + + + + + | % | 1Comment: Testing | % | EXTERNAL | | | Myelocytes | performed at [facility], [address] | | LAB | | | | [address], | | | | | | [place] [address] | | | | + + + + + + | Lymphocytes | 4Comment: Testing | % | EXTERNAL | | | Manual | performed at [facility], [address] | | LAB | | | | [address], | | | | | | [place] [address] | | | | + + + + + + | Eosinophils | 4Comment: Testing | % | EXTERNAL | | | Manual | performed at [facility], [address] | | LAB | | | | [address], | | | | | | [place] [address] | | | | + + + + + + | Absolute | 9.46 (H)Comment: Testing | 1.90 - 7.40 | EXTERNAL | | | Neutrophils | performed at [facility], [address] | K/uL | LAB | | | | [address], | | | | | | [place] [address] | | | | + + + + + + | Bands | 0.33 (H)Comment: Testing | 0.00 - 0.20 | EXTERNAL | | | Manual | performed at [facility], [address] | [address] | LAB | | | | [address], | | | | | | [place] [address] | | | | + + + + + + | Absolute | 0.11 (H)Comment: Testing | K/uL | EXTERNAL | | | Metamyelocy | performed at [facility], [address] | | LAB | | | [address] | [address], | | | | | | [place] [address] | | | | + + + + + + | Absolute | 0.11 (H)Comment: Testing | K/uL | EXTERNAL | | | Myelocytes | performed at [facility], [address] | | LAB | | | | [address], | | | | | | [place] [address] | | | | + + + + + + | Absolute | 0.43 (L)Comment: Testing | 1.00 - 3.90 | EXTERNAL | | | Lymphocytes | performed at [facility], [address] | K/uL | LAB | | | | [address], | | | | | | [place] [address] | | | | + + + + + + | Absolute | 0.43Comment: Testing | 0.00 - 0.50 | EXTERNAL | | | Eosinophils | performed at [facility], [address] | K/uL | LAB | | | | [address], | | | | | | [place] [address] | | | | + + + + + + | RBC | NORMAL RBC MORPHComment: | | EXTERNAL | | | Morphology | NORMAL PLT MORPHTesting | | LAB | | | | performed at [facility], [address] | | | | | | [address], | | | | | | [place] [address] | | | | + + + [...] EXTERNAL | | | | performed at [facility], [address] | | LAB | | | | [facility], | | | | | | [place] [address] | | | | + + + [...] EXTERNAL | | | | performed at [facility], [address] | | LAB | | | | [address], | | | | | | [place] [address] | | | | + + + [...] | | LAB | | | | [facility];[address] | | | | | | [facility];[place] [address] | | | | + + + [...] EXTERNAL | | | | performed at [facility];[address] | | LAB | | | | [address];[place] | | | | | | [id number] | | | | + + + [...] | | | Total | performed at [facility];[address] | | LAB | | | | [address];[place] | | | | | | [phone] | | | | + + + + + + | Albumin | 1.3 (L)Comment: Testing | 3.3 - 4.8 g/dL | EXTERNAL | | | | performed at [facility];[address] | | LAB | | | | [address];[place] | | | | | | [phone] | | | | + + + + + + | Bilirubin | 3.5 (H)Comment: Testing | 0.1 - 1.5 mg/dL | EXTERNAL | | | Total | performed at [facility];[address] | | LAB | | | | [address];[place] | | | | | | [phone] | | | | + + + + + + | Bilirubin | 2.7 (H)Comment: Testing | 0.0 - 0.3 mg/dL | EXTERNAL | | | Direct | performed at [facility];[address] | | LAB | | | | [address];[place] | | | | | | [phone] | | | | + + + + + + | ALP, | 125 (H)Comment: Testing | 35 - 115 U/L | EXTERNAL | | | External | performed at [facility];[address] | | LAB | | | | [address];[place] | | | | | | [address] | | | | + + + + + + | AST | 173 (H)Comment: Testing | 10 - 45 U/L | EXTERNAL | | | | performed at [facility];[address] | | LAB | | | | [address];[place] | | | | | | [address] | | | | + + + + + + | ALT | 340 (H)Comment: Testing | 10 - 65 U/L | EXTERNAL | | | | performed at [facility];[address] | | LAB | | | | [address];[place] | | | | | | [phone] | | | | + + + [...] | | | | [place] [address] | | | | + + + + + + | K | 4.0Comment: Testing | 3.5 - 4.9 | EXTERNAL | | | | performed at [facility], [address] | mmol/L | LAB | | | | [address], | | | | | | [place] [address] | | | | + + + + + + | Cl | 105Comment: Testing | 99 - 109 mmol/L | EXTERNAL | | | | performed at [facility], [address] | | LAB | | | | [address], | | | | | | [place] [address] | | | | + + + + + + | CO2 | 30Comment: Testing | 23 - 32 mmol/L | EXTERNAL | | | | performed at [facility], [address] | | LAB | | | | [address], | | | | | | [place] [address] | | | | + + + + + + | Anion Gap | 8Comment: Testing | 5 - 20 mmol/L | EXTERNAL | | | | performed at [facility], [address] | | LAB | | | | [address], | | | | | | [place] [address] | | | | + + + + + + | Glucose, | 104 (H)Comment: Testing | 65 - 99 mg/dL | EXTERNAL | | | Fasting | performed at [facility], [address] | | LAB | | | | [address], | | | | | | [place] [address] | | | | + + + + + + | BUN | 31 (H)Comment: Testing | 8 - 25 mg/dL | EXTERNAL | | | | performed at [facility], [address] | | LAB | | | | [address], | | | | | | [place] [address] | | | | + + + + + + | Creatinine | 0.64 (L)Comment: Testing | 0.70 - 1.30 | EXTERNAL | | | | performed at [facility], [address] | mg/dL | LAB | | | | [address], | | | | | | [place] [address] | | | | + + + + + + | BUN/Creatin | 48Comment: Testing | | EXTERNAL | | | ine Ratio | performed at [facility], [address] | | LAB | | | | [address], | | | | | | [place] [address] | | | | + + + + + + | Calcium | 7.8 (L)Comment: Testing | 8.5 - 10.5 | EXTERNAL | | | | performed at [facility], [address] | mg/dL | LAB | | | | [address], | | | | | | [place] [address] | | | | + + + [...] | | | | [place] [address] | | | | + + + [...] | | | Fingerstick | performed at [facility];[address] | | LAB | | | | [address];[place], [place] | | | | | | [address] | | | | + + + [...] | | | Fingerstick | performed at [facility] | | LAB | | | | [address];[place] | | | | | | [address] | | | | + + + [...] | | | Fingerstick | performed at [facility];[address] | | LAB | | | | [address];[place] | | | | | | [address] | | | | + + + [...] | | | Fingerstick | performed at [facility];[address] | | LAB | | | | [address];[place] | | | | | | [address] | | | | + + + [...] | | | Fingerstick | performed at [facility];[address] | | LAB | | | | [address];[place], [place] | | | | | | [address] | | | | + + + [...] | | | Fingerstick | performed at [facility];[address] | | LAB | | | | [address];[place], [place] | | | | | | [address] | | | | + + + [...] | | | Fingerstick | performed at [facility];[address] | | LAB | | | | [address];[place], [place] | | | | | | [address] | | | | + + + [...] EXTERNAL | | | | performed at [facility];[address] | K/uL | LAB | | | | [address];[place] | | | | | | [address] | | | | + + + + + + | RED CELL | 2.90 (L)Comment: Testing | 4.20 - 5.70 | EXTERNAL | | | COUNT | performed at [facility];888 | M/uL | LAB | | | | [address];[place] | | | | | | [address] | | | | + + + + + + | Hgb | 9.8 (L)Comment: Testing | 13.2 - 17.0 | EXTERNAL | | | | performed at [facility];888 | g/dL | LAB | | | | [address];[place] | | | | | | [address] | | | | + + + + + + | Hematocrit, | 28.3 (L)Comment: Testing | 39.0 - 50.0 % | EXTERNAL | | | POC | performed at [facility];[address] | | LAB | | | | [address];[place] | | | | | | [address] | | | | + + + + + + | MCV | 97.7Comment: Testing | 80.0 - 100.0 fl | EXTERNAL | | | | performed at [facility];[address] | | LAB | | | | [address];[place] | | | | | | [address] | | | | + + + + + + | MCH | 33.6Comment: Testing | 27.0 - 34.0 pg | EXTERNAL | | | | performed at [facility];[address] | | LAB | | | | [address];[place] | | | | | | [address] | | | | + + + + + + | MCHC | 34.4Comment: Testing | 32.0 - 35.5 | EXTERNAL | | | | performed at [facility];888 | g/dL | LAB | | | | [address];[place] | | | | | | [address] | | | | + + + + + + | RDW-CV | 44.2Comment: Testing | 37 - 53 fl | EXTERNAL | | | | performed at [facility];[address] | | LAB | | | | [address];[place] | | | | | | [address] | | | | + + + + + + | Platelet | 127 (L)Comment: Testing | 150 - 400 K/uL | EXTERNAL | | | Count | performed at [facility];[address] | | LAB | | | Plasma | [address];[place] | | | | | | [address] | | | | + + + + + + | MPV | 9.7Comment: Testing | fl | EXTERNAL | | | | performed at [facility];[address] | | LAB | | | | [address];[place] | | | | | | [address] | | | | + + + + + + | Differentia | MANUALComment: Testing | | EXTERNAL | | | l Type | performed at [facility];[address] | | LAB | | | | [address];[place] | | | | | | [phone] | | | | + + + + + + | Segmented | 83Comment: Testing | % | EXTERNAL | | | Neutrophils | performed at [facility];[address] | | LAB | | | Manual | [address];[place] | | | | | | [phone] | | | | + + + + + + | % Bands | 2Comment: Testing | % | EXTERNAL | | | | performed at [facility];[address] | | LAB | | | | [address];[place] | | | | | | [address] | | | | + + + + + + | Lymphocytes | 2Comment: Testing | % | EXTERNAL | | | Manual | performed at [facility];[address] | | LAB | | | | [address];[place] | | | | | | [address] | | | | + + + + + + | Monocytes | 11Comment: Testing | % | EXTERNAL | | | Manual | performed at [facility];[address] | | LAB | | | | [address];[place] | | | | | | [address] | | | | + + + + + + | Eosinophils | 2Comment: Testing | % | EXTERNAL | | | Manual | performed at [facility];[address] | | LAB | | | | [address];[place] | | | | | | [address] | | | | + + + + + + | Absolute | 8.96 (H)Comment: Testing | 1.90 - 7.40 | EXTERNAL | | | Neutrophils | performed at [facility];888 | K/uL | LAB | | | | [address];[place] | | | | | | [address] | | | | + + + + + + | Bands | 0.22 (H)Comment: Testing | 0.00 - 0.20 | EXTERNAL | | | Manual | performed at [facility];888 | K/uL | LAB | | | | [address];[place] | | | | | | [address] | | | | + + + + + + | Absolute | 0.22 (L)Comment: Testing | 1.00 - 3.90 | EXTERNAL | | | Lymphocytes | performed at [facility];888 | K/uL | LAB | | | | [address];[place] | | | | | | [address] | | | | + + + + + + | Absolute | 1.19 (H)Comment: Testing | 0.00 - 0.80 | EXTERNAL | | | Monocytes | performed at [facility];888 | K/uL | LAB | | | | [address];[place] | | | | | | [address] | | | | + + + + + + | Absolute | 0.22Comment: Testing | 0.00 - 0.50 | EXTERNAL | | | Eosinophils | performed at [facility];888 | K/uL | LAB | | | | [address];[place] | | | | | | [address] | | | | + + + + + + | RBC | RBC AND PLT MORPHOLOGY | | EXTERNAL | | | Morphology | APPEAR NORMALComment: | | LAB | | | | Testing performed at | | | | | | [facility];[address] [place] [address] | | | | | | [facility];[place] [address] | | | | + + + [...] [address];[place] [address] | | | | + + + [...] EXTERNAL | | | | performed at [facility];888 | mmol/L | LAB | | | | [address];[place], [place] | | | | | | [address] | | | | + + + [...] EXTERNAL | | | | performed at [facility];8 | | LAB | | | | [address];[place] | | | | | | [address] | | | | + + + [...] | | | Total | performed at [facility];[address] | | LAB | | | | [address];[place] | | | | | | [address] | | | | + + + + + + | Albumin | 1.4 (L)Comment: Testing | 3.3 - 4.8 g/dL | EXTERNAL | | | | performed at [facility];[address] | | LAB | | | | [address];[place] | | | | | | [address] | | | | + + + + + + | Bilirubin | 5.2 (H)Comment: Testing | 0.1 - 1.5 mg/dL | EXTERNAL | | | Total | performed at [facility];[address] | | LAB | | | | [address];[place] | | | | | | [address] | | | | + + + + + + | Bilirubin | 4.4 (H)Comment: Testing | 0.0 - 0.3 mg/dL | EXTERNAL | | | Direct | performed at [facility];[address] | | LAB | | | | [address];[place] | | | | | | [address] | | | | + + + + + + | ALP, | 131 (H)Comment: Testing | 35 - 115 U/L | EXTERNAL | | | External | performed at [facility];[address] | | LAB | | | | [address];[place] | | | | | | [address] | | | | + + + + + + | AST | 289 (H)Comment: Testing | 10 - 45 U/L | EXTERNAL | | | | performed at [facility];[address] | | LAB | | | | [address];[place] | | | | | | [address] | | | | + + + + + + | ALT | 442 (H)Comment: Testing | 10 - 65 U/L | EXTERNAL | | | | performed at [facility];[address] | | LAB | | | | [address];[place] | | | | | | [address] | | | | + + + [...] | | | Fingerstick | performed at [facility];[address] | | LAB | | | | [address];[place], [place] | | | | | | [address] | | | | + + + [...] EXTERNAL | | | | performed at [facility];888 | mmol/L | LAB | | | | [address];[place], [place] | | | | | | [address] | | | | + + + [...] | | | Fingerstick | performed at [facility];888 | | LAB | | | | [address];[place] | | | | | | [address] | | | | + + + [...] | | | Fingerstick | performed at [facility] | | LAB | | | | [address];[place], [place] | | | | | | [address] | | | | + + + [...] EXTERNAL | | | | performed at [facility];888 | K/uL | LAB | | | | [address];[place], [place] | | | | | | [address] | | | | + + + + + + | RED CELL | 2.87 (L)Comment: Testing | 4.20 - 5.70 | EXTERNAL | | | COUNT | performed at [facility];888 | M/uL | LAB | | | | [address];[place] | | | | | | [address] | | | | + + + + + + | Hgb | 9.4 (L)Comment: Testing | 13.2 - 17.0 | EXTERNAL | | | | performed at [facility];888 | g/dL | LAB | | | | [address];[place] | | | | | | [address] | | | | + + + + + + | Hematocrit, | 27.9 (L)Comment: Testing | 39.0 - 50.0 % | EXTERNAL | | | POC | performed at [facility];[address] | | LAB | | | | [address];[place] | | | | | | [address] | | | | + + + + + + | MCV | 97.5Comment: Testing | 80.0 - 100.0 fl | EXTERNAL | | | | performed at [facility];[address] | | LAB | | | | [address];[place] | | | | | | [address] | | | | + + + + + + | MCH | 32.7Comment: Testing | 27.0 - 34.0 pg | EXTERNAL | | | | performed at [facility];[address] | | LAB | | | | [address];[place] | | | | | | [address] | | | | + + + + + + | MCHC | 33.5Comment: Testing | 32.0 - 35.5 | EXTERNAL | | | | performed at [facility];888 | g/dL | LAB | | | | [address];[place] | | | | | | [address] | | | | + + + + + + | RDW-CV | 43.8Comment: Testing | 37 - 53 fl | EXTERNAL | | | | performed at [facility];[address] | | LAB | | | | [address];[place] | | | | | | [address] | | | | + + + + + + | Platelet | 114 (L)Comment: Testing | 150 - 400 K/uL | EXTERNAL | | | Count | performed at [facility];888 | | LAB | | | Plasma | [address];[place] | | | | | | [address] | | | | + + + + + + | MPV | 9.4Comment: Testing | fl | EXTERNAL | | | | performed at [facility];[address] | | LAB | | | | [address];[place] | | | | | | [address] | | | | + + + + + + | Differentia | MANUALComment: Testing | | EXTERNAL | | | l Type | performed at [facility];[address] | | LAB | | | | [address];[place] | | | | | | [address] | | | | + + + + + + | Segmented | 69Comment: Testing | % | EXTERNAL | | | Neutrophils | performed at [facility];888 | | LAB | | | Manual | [address];[place] | | | | | | [address] | | | | + + + + + + | % Bands | 21Comment: Testing | % | EXTERNAL | | | | performed at [facility];[address] | | LAB | | | | [address];[place] | | | | | | [address] | | | | + + + + + + | Lymphocytes | 3Comment: Testing | % | EXTERNAL | | | Manual | performed at [facility];[address] | | LAB | | | | [address];[place] | | | | | | [address] | | | | + + + + + + | Monocytes | 5Comment: Testing | % | EXTERNAL | | | Manual | performed at [facility];[address] | | LAB | | | | [address];[place] | | | | | | [address] | | | | + + + + + + | Eosinophils | 2Comment: Testing | % | EXTERNAL | | | Manual | performed at [facility];[address] | | LAB | | | | [address];[place] | | | | | | [address] | | | | + + + + + + | Absolute | 6.49Comment: Testing | 1.90 - 7.40 | EXTERNAL | | | Neutrophils | performed at [facility];888 | K/uL | LAB | | | | [address];[place] | | | | | | [address] | | | | + + + + + + | Bands | 1.97 (H)Comment: Testing | 0.00 - 0.20 | EXTERNAL | | | Manual | performed at [facility];888 | K/uL | LAB | | | | [address];[place] | | | | | | [address] | | | | + + + + + + | Absolute | 0.28 (L)Comment: Testing | 1.00 - 3.90 | EXTERNAL | | | Lymphocytes | performed at [facility];888 | K/uL | LAB | | | | [address];[place] | | | | | | [address] | | | | + + + + + + | Absolute | 0.47Comment: Testing | 0.00 - 0.80 | EXTERNAL | | | Monocytes | performed at [facility];888 | K/uL | LAB | | | | [address];[place] | | | | | | [address] | | | | + + + + + + | Absolute | 0.19Comment: Testing | 0.00 - 0.50 | EXTERNAL | | | Eosinophils | performed at [facility];888 | K/uL | LAB | | | | [address];[place] | | | | | | [address] | | | | + + + + + + | Platelet | DECREASEDComment: | | EXTERNAL | | | Estimate | Testing performed at | | LAB | | | | [facility];[address];[place] [phone] | | | | + + + + + + | RBC | 1+Comment: GIANT | | EXTERNAL | | | Morphology | PLATELETSNORMAL RBC | | LAB | | | | MORPH1+TOXIC | | | | | | GRANULATIONTesting | | | | | | performed at [facility];[address] | | | | | | [facility];[place], [place] | | | | | | [address] | | | | | | | [...] EXTERNAL | | | | performed at [facility];888 | mmol/L | LAB | | | | [address];[place] | | | | | | [address] | | | | + + + + + + | K | 4.0Comment: Testing | 3.5 - 4.9 | EXTERNAL | | | | performed at [facility];888 | mmol/L | LAB | | | | [address];[place] | | | | | | [address] | | | | + + + + + + | Cl | 105Comment: Testing | 99 - 109 mmol/L | EXTERNAL | | | | performed at [facility];[address] | | LAB | | | | [address];[place] | | | | | | [address] | | | | + + + + + + | CO2 | 32Comment: Testing | 23 - 32 mmol/L | EXTERNAL | | | | performed at [facility];[address] | | LAB | | | | [address];[place] | | | | | | [address] | | | | + + + + + + | Anion Gap | 9Comment: Testing | 5 - 20 mmol/L | EXTERNAL | | | | performed at [facility];[address] | | LAB | | | | [address];[place] | | | | | | [address] | | | | + + + + + + | Glucose, | 120 (H)Comment: Testing | 65 - 99 mg/dL | EXTERNAL | | | Fasting | performed at [facility];[address] | | LAB | | | | [address];[place] | | | | | | [address] | | | | + + + + + + | BUN | 24Comment: Testing | 8 - 25 mg/dL | EXTERNAL | | | | performed at [facility];[address] | | LAB | | | | [address];[place] | | | | | | [address] | | | | + + + + + + | Creatinine | 0.71Comment: Testing | 0.70 - 1.30 | EXTERNAL | | | | performed at [facility];888 | mg/dL | LAB | | | | [address];[place] | | | | | | [address] | | | | + + + + + + | BUN/Creatin | 34Comment: Testing | | EXTERNAL | | | ine Ratio | performed at [facility];[address] | | LAB | | | | [address];[place] | | | | | | [address] | | | | + + + + + + | Calcium | 7.5 (L)Comment: Testing | 8.5 - 10.5 | EXTERNAL | | | | performed at [facility];888 | mg/dL | LAB | | | | [address];[place] | | | | | | [address] | | | | + + + [...] | | | | | | at [facility];[address];[place] [phone] | | | | + + + [...] EXTERNAL | | | | performed at [facility];888 | mmol/L | LAB | | | | [address];[place] | | | | | | [address] | | | | + + + [...] | | | Fingerstick | performed at [facility];888 | | LAB | | | | [address];[place], [place] | | | | | | [address] | | | | + + + [...] | | | (Calc) | performed at [facility];888 | mmol/L | LAB | | | | [address];[place] | | | | | | [address] | | | | + + + + + + | pH, Bld | 7.442Comment: Testing | 7.300 - 7.450 | EXTERNAL | | | | performed at [facility];[address] | | LAB | | | | [address];[place], [place] | | | | | | [address] | | | | + + + [...] | | | Fingerstick | performed at [facility];888 | | LAB | | | | [address];[place], [place] | | | | | | [address] | | | | + + + [...] EXTERNAL | | | | performed at [facility];888 | K/uL | LAB | | | | [address];[place] | | | | | | [address] | | | | + + + + + + | RED CELL | 2.81 (L)Comment: Testing | 4.20 - 5.70 | EXTERNAL | | | COUNT | performed at [facility];888 | M/uL | LAB | | | | [address];[place] | | | | | | [address] | | | | + + + + + + | Hgb | 9.3 (L)Comment: Testing | 13.2 - 17.0 | EXTERNAL | | | | performed at [facility];888 | g/dL | LAB | | | | [address];[place] | | | | | | [address] | | | | + + + + + + | Hematocrit, | 27.5 (L)Comment: Testing | 39.0 - 50.0 % | EXTERNAL | | | POC | performed at [facility];[address] | | LAB | | | | [address];[place] | | | | | | [address] | | | | + + + + + + | MCV | 97.9Comment: Testing | 80.0 - 100.0 fl | EXTERNAL | | | | performed at [facility];[address] | | LAB | | | | [address];[place] | | | | | | [address] | | | | + + + + + + | MCH | 33.1Comment: Testing | 27.0 - 34.0 pg | EXTERNAL | | | | performed at [facility];[address] | | LAB | | | | [address];[place] | | | | | | [address] | | | | + + + + + + | MCHC | 33.8Comment: Testing | 32.0 - 35.5 | EXTERNAL | | | | performed at [facility];888 | g/dL | LAB | | | | [address];[place] | | | | | | [address] | | | | + + + + + + | RDW-CV | 43.3Comment: Testing | 37 - 53 fl | EXTERNAL | | | | performed at [facility] [place];888 | | LAB | | | | [address];[place] | | | | | | [phone] | | | | + + + + + + | Platelet | 117 (L)Comment: Testing | 150 - 400 K/uL | EXTERNAL | | | Count | performed at [facility] [place];888 | | LAB | | | Plasma | [address];[place] | | | | | | [address] | | | | + + + + + + | MPV | 9.9Comment: Testing | fl | EXTERNAL | | | | performed at [facility] [place];888 | | LAB | | | | [address];[place] | | | | | | [phone] | | | | + + + + + + | Differentia | MANUALComment: Testing | | EXTERNAL | | | l Type | performed at [facility] [place];888 | | LAB | | | | [address];[place] | | | | | | [phone] | | | | + + + + + + | Nucleated | 1 (H)Comment: Testing | /100WBC | EXTERNAL | | | Red Blood | performed at [facility] [place];888 | | LAB | | | Cells | [address];[place] | | | | | | [address] | | | | + + + + + + | Segmented | 82Comment: Testing | % | EXTERNAL | | | Neutrophils | performed at [facility] [place];888 | | LAB | | | Manual | [address];[place] | | | | | | [address] | | | | + + + + + + | % Bands | 3Comment: Testing | % | EXTERNAL | | | | performed at [facility] [place];888 | | LAB | | | | [address];[place] | | | | | | [phone] | | | | + + + + + + | % | 2Comment: Testing | % | EXTERNAL | | | Metamyelocy | performed at [facility] [place];888 | | LAB | | | romaine | [address];[place] | | | | | | [address] | | | | + + + + + + | Lymphocytes | 5Comment: Testing | % | EXTERNAL | | | Manual | performed at [facility] [place];888 | | LAB | | | | [address];[place] | | | | | | [address] | | | | + + + + + + | Reactive | 1Comment: Testing | % | EXTERNAL | | | Lymphocytes | performed at [facility] [place];888 | | LAB | | | | [address];[place] | | | | | | [address] | | | | + + + + + + | Monocytes | 1Comment: Testing | % | EXTERNAL | | | Manual | performed at [facility] [place];888 | | LAB | | | | [address];[place] | | | | | | [phone] | | | | + + + + + + | Eosinophils | 6Comment: Testing | % | EXTERNAL | | | Manual | performed at [facility] [place];888 | | LAB | | | | [address];[place] | | | | | | [address] | | | | + + + + + + | Absolute | 6.87Comment: Testing | 1.90 - 7.40 | EXTERNAL | | | Neutrophils | performed at [facility] [place];888 | K/uL | LAB | | | | [address];[place] | | | | | | [address] | | | | + + + + + + | Bands | 0.25 (H)Comment: Testing | 0.00 - 0.20 | EXTERNAL | | | Manual | performed at [facility] [place];888 | K/uL | LAB | | | | [address];[place] | | | | | | [address] | | | | + + + + + + | Absolute | 0.17 (H)Comment: Testing | K/uL | EXTERNAL | | | Metamyelocy | performed at [facility] [place];888 | | LAB | | | romaine | [address];[place] | | | | | | [phone] | | | | + + + + + + | Absolute | 0.42 (L)Comment: Testing | 1.00 - 3.90 | EXTERNAL | | | Lymphocytes | performed at [facility];[address] | K/uL | LAB | | | | [address];[place] | | | | | | [address] | | | | + + + + + + | Reactive | 0.08Comment: Testing | K/uL | EXTERNAL | | | Lymphocytes | performed at [facility];[address] | | LAB | | | | [address];[place] | | | | | | [phone] | | | | + + + + + + | Absolute | 0.08Comment: Testing | 0.00 - 0.80 | EXTERNAL | | | Monocytes | performed at [facility];888 | K/uL | LAB | | | | [address];[place] | | | | | | [address] | | | | + + + + + + | Absolute | 0.50Comment: Testing | 0.00 - 0.50 | EXTERNAL | | | Eosinophils | performed at [facility];[address] | K/uL | LAB | | | | [address];[place] | | | | | | [phone] | | | | + + + + + + | Platelet | DECREASEDComment: | | EXTERNAL | | | Estimate | Testing performed at | | LAB | | | | [facility];[address];[place] [phone] | | | | + + + + + + | RBC | RBC AND PLT MORPHOLOGY | | EXTERNAL | | | Morphology | APPEAR NORMALComment: | | LAB | | | | Testing performed at | | | | | | [facility];[address] | | [address];[place] [phone] | | | | + + + [...] | | | es | performed at [facility], [address] | | LAB | | | | [address], | | | | | | [place] [address] | | | | + + + [...] EXTERNAL | | | | performed at [facility], [address] | mg/dL | LAB | | | | [address], | | | | | | [place] [address] | | | | + + + [...] EXTERNAL | | | | performed at [facility], [address] | | LAB | | | | [address], | | | | | | [place] [address] | | | | + + + [...] | | | | [place] [address] | | | | + + + [...] | | | | [place] [address] | | | | + + + + + + | Albumin | 2.2 (L)Comment: Testing | 3.3 - 4.8 g/dL | EXTERNAL | | | | performed at [facility], [address] | | LAB | | | | [address], | | | | | | [place] [address] | | | | + + + + + + | Bilirubin | 5.3 (H)Comment: Testing | 0.1 - 1.5 mg/dL | EXTERNAL | | | Total | performed at [facility], [address] | | LAB | | | | [address], | | | | | | [place] [address] | | | | + + + + + + | Bilirubin | 4.0 (H)Comment: Testing | 0.0 - 0.3 mg/dL | EXTERNAL | | | Direct | performed at [facility], [address] | | LAB | | | | [address], | | | | | | [place] [address] | | | | + + + + + + | ALP, | 103Comment: Testing | 35 - 115 U/L | EXTERNAL | | | External | performed at [facility], [address] | | LAB | | | | [address], | | | | | | [place] [address] | | | | + + + + + + | AST | 307 (H)Comment: Testing | 10 - 45 U/L | EXTERNAL | | | | performed at [facility], [address] | | LAB | | | | [address], | | | | | | [place] [address] | | | | + + + + + + | ALT | 399 (H)Comment: Testing | 10 - 65 U/L | EXTERNAL | | | | performed at [facility], [address] | | LAB | | | | [address], | | | | | | [place] [address] | | | | + + [...] | | | | [place] [address] | | | | + + + + + + | K | 3.7Comment: Testing | 3.5 - 4.9 | EXTERNAL | | | | performed at [facility], [address] | mmol/L | LAB | | | | [address], | | | | | | [place] [address] | | | | + + + + + + | Cl | 103Comment: Testing | 99 - 109 mmol/L | EXTERNAL | | | | performed at [facility], [address] | | LAB | | | | [address], | | | | | | [place] [address] | | | | + + + + + + | CO2 | 31Comment: Testing | 23 - 32 mmol/L | EXTERNAL | | | | performed at [facility], [address] | | LAB | | | | [address], | | | | | | [place] [address] | | | | + + + + + + | Anion Gap | 12Comment: Testing | 5 - 20 mmol/L | EXTERNAL | | | | performed at [facility], [address] | | LAB | | | | [address], | | | | | | [place] [address] | | | | + + + + + + | Glucose, | 99Comment: Testing | 65 - 99 mg/dL | EXTERNAL | | | Fasting | performed at [facility], [address] | | LAB | | | | [address], | | | | | | [place] [address] | | | | + + + + + + | BUN | 25Comment: Testing | 8 - 25 mg/dL | EXTERNAL | | | | performed at [facility], [address] | | LAB | | | | [address], | | | | | | [place] [address] | | | | + + + + + + | Creatinine | 0.78Comment: Testing | 0.70 - 1.30 | EXTERNAL | | | | performed at [facility], [address] | mg/dL | LAB | | | | [address], | | | | | | [place] [address] | | | | + + + + + + | BUN/Creatin | 32Comment: Testing | | EXTERNAL | | | ine Ratio | performed at [facility], [address] | | LAB | | | | [address], | | | | | | [place] [address] | | | | + + + + + + | Calcium | 8.0 (L)Comment: Testing | 8.5 - 10.5 | EXTERNAL | | | | performed at [facility], [address] | mg/dL | LAB | | | | [facility], | | | | | | [place] [address] | | | | + + + [...] | | | | | | [facility], | | | | | | [place] [address] | | | | + + + [...] | | | Fingerstick | performed at [facility];888 | | LAB | | | | [address];[place] | | | | | | [phone] | | | | + + + [...] | | | Fingerstick | performed at [facility];888 | | LAB | | | | [address];[place] | | | | | | [address] | | | | + + + [...] | | | Fingerstick | performed at [facility];[address] | | LAB | | | | [address];[place] | | | | | | [address] | | | | + + + [...] EXTERNAL | | | | performed at [facility];888 | mmol/L | LAB | | | | [address];[place], [place] | | | | | | [address] | | | | + + + [...] | | | Fingerstick | performed at [facility];888 | | LAB | | | | [address];[place] | | | | | | [address] | | | | + + + [...] | | | Fingerstick | performed at [facility];[address] | | LAB | | | | [address];[place], [place] | | | | | | [address] | | | | + + + [...] | | | Fingerstick | performed at [facility];[address] | | LAB | | | | [address];[place], [place] | | | | | | [address] | | | | + + + [...] EXTERNAL | | | | performed at [facility];888 | mmol/L | LAB | | | | [address] [facility];[place], [place] | | | | | | [address] | | | | + + + [...] | | | Fingerstick | performed at [facility];[address] | | LAB | | | | [address];[place] | | | | | | [address] | | | | + + + [...] | | | Fingerstick | performed at [facility] | | LAB | | | | [address];[place] | | | | | | [address] | | | | + + + [...] | | | Fingerstick | performed at [facility];[address] | | LAB | | | | [address];[place], [place] | | | | | | [address] | | | | + + + [...] | | | Fingerstick | performed at [facility] | | LAB | | | | [address];[place], [place] | | | | | | [address] | | | | + + + [...] EXTERNAL | | | | performed at [facility];888 | mmol/L | LAB | | | | [address];[place], [place] | | | | | | [address] | | | | + + + [...] EXTERNAL | | | | performed at [facility];888 | | LAB | | | | [address];[place], [place] | | | | | | [address] | | | | + + + [...] EXTERNAL | | | | performed at [facility];888 | | LAB | | | | [address];[place], [place] | | | | | | [address] | | | | + + + [...] | | | Fingerstick | performed at [facility];[address] | | LAB | | | | [address];[place] | | | | | | [address] | | | | + + + [...] | | | Fingerstick | performed at [facility];[address] | | LAB | | | | [address];[place], [place] | | | | | | [address] | | | | + + + [...] | | | Fingerstick | performed at [facility];[address] | | LAB | | | | [address];[place] | | | | | | [address] | | | | + + + [...] | | | Fingerstick | performed at [facility];888 | | LAB | | | | [address];[place], [place] | | | | | | [address] | | | | + + + [...] | | | | | | at [facility];[address] | [address];[place] [address] | | | | + + + [...] EXTERNAL | | | | performed at [facility];888 | K/uL | LAB | | | | [address];[place] | | | | | | [address] | | | | + + + + + + | RED CELL | 2.77 (L)Comment: Testing | 4.20 - 5.70 | EXTERNAL | | | COUNT | performed at [facility];888 | M/uL | LAB | | | | [address];[place] | | | | | | [phone] | | | | + + + + + + | Hgb | 9.5 (L)Comment: Testing | 13.2 - 17.0 | EXTERNAL | | | | performed at [facility];888 | g/dL | LAB | | | | [address];[place] | | | | | | [address] | | | | + + + + + + | Hematocrit, | 27.2 (L)Comment: Testing | 39.0 - 50.0 % | EXTERNAL | | | POC | performed at [facility];888 | | LAB | | | | [address];[place] | | | | | | [phone] | | | | + + + + + + | MCV | 98.2Comment: Testing | 80.0 - 100.0 fl | EXTERNAL | | | | performed at [facility];888 | | LAB | | | | [address];[place] | | | | | | [address] | | | | + + + + + + | MCH | 34.5 (H)Comment: Testing | 27.0 - 34.0 pg | EXTERNAL | | | | performed at [facility];888 | | LAB | | | | [address];[place] | | | | | | [address] | | | | + + + + + + | MCHC | 35.1Comment: Testing | 32.0 - 35.5 | EXTERNAL | | | | performed at [facility];888 | g/dL | LAB | | | | [address];[place] | | | | | | [phone] | | | | + + + + + + | RDW-CV | 44.2Comment: Testing | 37 - 53 fl | EXTERNAL | | | | performed at [facility];[address] | | LAB | | | | [address];[place] | | | | | | [address] | | | | + + + + + + | Platelet | 105 (L)Comment: Testing | 150 - 400 K/uL | EXTERNAL | | | Count | performed at [facility];888 | | LAB | | | Plasma | [address];[place] | | | | | | [address] | | | | + + + + + + | MPV | 9.2Comment: Testing | fl | EXTERNAL | | | | performed at [facility];[address] | | LAB | | | | [address];[place] | | | | | | [address] | | | | + + + + + + | Differentia | MANUALComment: Testing | | EXTERNAL | | | l Type | performed at [facility];[address] | | LAB | | | | [address];[place] | | | | | | [address] | | | | + + + + + + | Segmented | 83Comment: Testing | % | EXTERNAL | | | Neutrophils | performed at [facility];888 | | LAB | | | Manual | [address];[place] | | | | | | [address] | | | | + + + + + + | % Bands | 7Comment: Testing | % | EXTERNAL | | | | performed at [facility];[address] | | LAB | | | | [address];[place] | | | | | | [address] | | | | + + + + + + | Lymphocytes | 8Comment: Testing | % | EXTERNAL | | | Manual | performed at [facility];[address] | | LAB | | | | [address];[place] | | | | | | [address] | | | | + + + + + + | Monocytes | 2Comment: Testing | % | EXTERNAL | | | Manual | performed at [facility];[address] | | LAB | | | | [address];[place] | | | | | | [phone] | | | | + + + + + + | Absolute | 5.54Comment: Testing | 1.90 - 7.40 | EXTERNAL | | | Neutrophils | performed at [facility];888 | K/uL | LAB | | | | [address];[place] | | | | | | [phone] | | | | + + + + + + | Bands | 0.47 (H)Comment: Testing | 0.00 - 0.20 | EXTERNAL | | | Manual | performed at [facility];888 | K/uL | LAB | | | | [address];[place] | | | | | | [address] | | | | + + + + + + | Absolute | 0.53 (L)Comment: Testing | 1.00 - 3.90 | EXTERNAL | | | Lymphocytes | performed at [facility];888 | K/uL | LAB | | | | [address];[place] | | | | | | [address] | | | | + + + + + + | Absolute | 0.13Comment: Testing | 0.00 - 0.80 | EXTERNAL | | | Monocytes | performed at [facility];888 | K/uL | LAB | | | | [address];[place] | | | | | | [address] | | | | + + + + + + | RBC | RBC AND PLT MORPHOLOGY | | EXTERNAL | | | Morphology | APPEAR NORMALComment: | | LAB | | | | Testing performed at | | | | | | [facility];[address];[place] [phone] | | | | + + + [...] EXTERNAL | | | | performed at [facility];[address] | | LAB | | | | [address];[place], [place] | | | | | | [address] | | | | + + + [...] EXTERNAL | | | | performed at [facility];[address] | | LAB | | | | [address];[place] | | | | | | [address] | | | | + + + [...] | | Last Dose | performed at [facility];888 | | LAB | | | | [address];[place] | | | | | | [phone] | | | | + + + + + + | Time of | UNKNOWNComment: Testing | | EXTERNAL | | | Last Dose | performed at [facility];[address] | | LAB | | | | [address];[place] | | | | | | [address] | | | | + + + + + + | Digoxin | 0.9Comment: Testing | 0.90 - 2.00 | EXTERNAL | | | level | performed at [facility];888 | ng/mL | LAB | | | | [address];[place] | | | | | | [address] | | | | + + + [...] EXTERNAL | | | | performed at [facility];888 | mmol/L | LAB | | | | [address];[place] | | | | | | [phone] | | | | + + + + + + | K | 3.1 (L)Comment: Testing | 3.5 - 4.9 | EXTERNAL | | | | performed at [facility];888 | mmol/L | LAB | | | | [address];[place] | | | | | | [phone] | | | | + + + + + + | Cl | 110 (H)Comment: Testing | 99 - 109 mmol/L | EXTERNAL | | | | performed at [facility];[address] | | LAB | | | | [address];[place] | | | | | | [address] | | | | + + + + + + | CO2 | 31Comment: Testing | 23 - 32 mmol/L | EXTERNAL | | | | performed at [facility];[address] | | LAB | | | | [address];[place] | | | | | | [address] | | | | + + + + + + | Anion Gap | 5Comment: Testing | 5 - 20 mmol/L | EXTERNAL | | | | performed at [facility];888 | | LAB | | | | [address];[place] | | | | | | [address] | | | | + + + + + + | Glucose, | 95Comment: Testing | 65 - 99 mg/dL | EXTERNAL | | | Fasting | performed at [facility];[address] | | LAB | | | | [address];[place] | | | | | | [phone] | | | | + + + + + + | BUN | 26 (H)Comment: Testing | 8 - 25 mg/dL | EXTERNAL | | | | performed at [facility];[address] | | LAB | | | | [address];[place] | | | | | | [address] | | | | + + + + + + | Creatinine | 0.61 (L)Comment: Testing | 0.70 - 1.30 | EXTERNAL | | | | performed at [facility];888 | mg/dL | LAB | | | | [address];[place] | | | | | | [address] | | | | + + + + + + | BUN/Creatin | 43Comment: Testing | | EXTERNAL | | | ine Ratio | performed at [facility];888 | | LAB | | | | [address];[place] | | | | | | [address] | | | | + + + + + + | Calcium | 7.4 (L)Comment: Testing | 8.5 - 10.5 | EXTERNAL | | | | performed at [facility];888 | mg/dL | LAB | | | | [address];[place] | | | | | | [address] | | | | + + + [...] | | | | | | at [facility];[address] | [address];[place] [phone] | | | | + + + [...] | | | Fingerstick | performed at [facility];888 | | LAB | | | | [address];[place] | | | | | | [address] | | | | + + + [...] | | | Fingerstick | performed at [facility];[address] | | LAB | | | | [address];[place] | | | | | | [address] | | | | + + + [...] | | | Fingerstick | performed at [facility];[address] | | LAB | | | | [address];[place], [place] | | | | | | [address] | | | | + + + [...] | | | Fingerstick | performed at [facility];[address] | | LAB | | | | [address];[place], [place] | | | | | | [address] | | | | + + + [...] | | | Fingerstick | performed at [facility];888 | | LAB | | | | [address];[place] | | | | | | [address] | | | | + + + [...] | | | Fingerstick | performed at [facility];[address] | | LAB | | | | [address];[place], [place] | | | | | | [address] | | | | + + + [...] | | | Fingerstick | performed at [facility] | | LAB | | | | [address];[place], [place] | | | | | | [address] | | | | + + + [...] | | | | [place] [address] | | | | + + + [...] EXTERNAL | | | | performed at [facility], [address] | | LAB | | | | [address], | | | | | | [place] [address] | | | | + + + [...] EXTERNAL | | | | performed at [facility], [address] | | LAB | | | | [address], | | | | | | [place] [address] | | | | + + + [...] | | | Fingerstick | performed at [facility];[address] | | LAB | | | | [address];[place] | | | | | | [address] | | | | + + + [...] | | | Fingerstick | performed at [facility];888 | | LAB | | | | [address];[place] | | | | | | [address] | | | | + + + [...] | | | Fingerstick | performed at [facility];[address] | | LAB | | | | [address];[place], [place] | | | | | | [address] | | | | + + + [...] | | | Fingerstick | performed at [facility];[address] | | LAB | | | | [address];[place], [place] | | | | | | [address] | | | | + + + [...] | | | Fingerstick | performed at [facility];[address] | | LAB | | | | [address];[place], [place] | | | | | | [address] | | | | + + + [...] | | | Fingerstick | performed at [facility];888 | | LAB | | | | [address];[place] | | | | | | [address] | | | | + + + [...] | | | Fingerstick | performed at [facility];[address] | | LAB | | | | [address];[place], [place] | | | | | | [address] | | | | + + + [...] EXTERNAL | | | | performed at [facility];888 | K/uL | LAB | | | | [address];[place] | | | | | | [address] | | | | + + + + + + | RED CELL | 2.58 (L)Comment: Testing | 4.20 - 5.70 | EXTERNAL | | | COUNT | performed at [facility];888 | M/uL | LAB | | | | [address];[place] | | | | | | [address] | | | | + + + + + + | Hgb | 8.3 (L)Comment: Testing | 13.2 - 17.0 | EXTERNAL | | | | performed at [facility];888 | g/dL | LAB | | | | [address];[place] | | | | | | [address] | | | | + + + + + + | Hematocrit, | 25.3 (L)Comment: Testing | 39.0 - 50.0 % | EXTERNAL | | | POC | performed at [facility];[address] | | LAB | | | | [address];[place] | | | | | | [address] | | | | + + + + + + | MCV | 97.9Comment: Testing | 80.0 - 100.0 fl | EXTERNAL | | | | performed at [facility];888 | | LAB | | | | [address];[place] | | | | | | [address] | | | | + + + + + + | MCH | 32.0Comment: Testing | 27.0 - 34.0 pg | EXTERNAL | | | | performed at [facility];[address] | | LAB | | | | [address];[place] | | | | | | [address] | | | | + + + + + + | MCHC | 32.7Comment: Testing | 32.0 - 35.5 | EXTERNAL | | | | performed at [facility];888 | g/dL | LAB | | | | [address];[place] | | | | | | [address] | | | | + + + + + + | RDW-CV | 42.4Comment: Testing | 37 - 53 fl | EXTERNAL | | | | performed at [facility];888 | | LAB | | | | [address];[place] | | | | | | [address] | | | | + + + + + + | Platelet | 121 (L)Comment: Testing | 150 - 400 K/uL | EXTERNAL | | | Count | performed at [facility];888 | | LAB | | | Plasma | [address];[place] | | | | | | [address] | | | | + + + + + + | MPV | 8.9Comment: Testing | fl | EXTERNAL | | | | performed at [facility];[address] | | LAB | | | | [address];[place] | | | | | | [address] | | | | + + + + + + | Differentia | MANUALComment: Testing | | EXTERNAL | | | l Type | performed at [facility] [place];[address] | | LAB | | | | [address];[place] | | | | | | [phone] | | | | + + + + + + | Segmented | 82Comment: Testing | % | EXTERNAL | | | Neutrophils | performed at [facility] [place];[address] | | LAB | | | Manual | [address];[place] | | | | | | [phone] | | | | + + + + + + | % Bands | 8Comment: Testing | % | EXTERNAL | | | | performed at [facility] [place];[address] | | LAB | | | | [address];[place] | | | | | | [phone] | | | | + + + + + + | Lymphocytes | 7Comment: Testing | % | EXTERNAL | | | Manual | performed at [facility] [place];[address] | | LAB | | | | [address];[place] | | | | | | [phone] | | | | + + + + + + | Monocytes | 3Comment: Testing | % | EXTERNAL | | | Manual | performed at [facility] [place];[address] | | LAB | | | | [address];[place] | | | | | | [phone] | | | | + + + + + + | Absolute | 9.02 (H)Comment: Testing | 1.90 - 7.40 | EXTERNAL | | | Neutrophils | performed at [facility] [place];888 | K/uL | LAB | | | | [address];[place] | | | | | | [phone] | | | | + + + + + + | Bands | 0.88 (H)Comment: Testing | 0.00 - 0.20 | EXTERNAL | | | Manual | performed at [facility] [place];888 | K/uL | LAB | | | | [address];[place] | | | | | | [phone] | | | | + + + + + + | Absolute | 0.77 (L)Comment: Testing | 1.00 - 3.90 | EXTERNAL | | | Lymphocytes | performed at [facility] [place];888 | K/uL | LAB | | | | [address];[place] | | | | | | [phone] | | | | + + + + + + | Absolute | 0.33Comment: Testing | 0.00 - 0.80 | EXTERNAL | | | Monocytes | performed at [facility] [place];888 | K/uL | LAB | | | | [address];[place] | | | | | | [phone] | | | | + + + + + + | Platelet | DECREASEDComment: | | EXTERNAL | | | Estimate | Testing performed at | | LAB | | | | [facility] [place];[address];[place] [phone] | | | | + + + + + + | RBC | RBC AND PLT MORPHOLOGY | | EXTERNAL | | | Morphology | APPEAR NORMALComment: | | LAB | | | | Testing performed at | | | | | | [facility] [place];[address];[place] [phone] | | | | + + + [...] EXTERNAL | | | | performed at [facility] [place];[address] | | LAB | | | | [address];[place], [place] | | | | | | [phone] | | | | + + + [...] EXTERNAL | | | | performed at [facility] [place];[address] | | LAB | | | | [address] [facility];[place], [place] | | | | | | [phone] | | | | + + + [...] EXTERNAL | | | | performed at [facility] [place];888 | mmol/L | LAB | | | | [address];[place] | | | | | | [phone] | | | | + + + + + + | K | 3.2 (L)Comment: Testing | 3.5 - 4.9 | EXTERNAL | | | | performed at [facility] [facility];888 | mmol/L | LAB | | | | [address];[place] | | | | | | [phone] | | | | + + + + + + | Cl | 107Comment: Testing | 99 - 109 mmol/L | EXTERNAL | | | | performed at [facility];888 | | LAB | | | | [address];[place] | | | | | | [phone] | | | | + + + + + + | CO2 | 25Comment: Testing | 23 - 32 mmol/L | EXTERNAL | | | | performed at [facility];888 | | LAB | | | | [address];[place] | | | | | | [phone] | | | | + + + + + + | Anion Gap | 9Comment: Testing | 5 - 20 mmol/L | EXTERNAL | | | | performed at [facility];888 | | LAB | | | | [address];[place] | | | | | | [phone] | | | | + + + + + + | Glucose, | 111 (H)Comment: Testing | 65 - 99 mg/dL | EXTERNAL | | | Fasting | performed at [facility];888 | | LAB | | | | [address];[place] | | | | | | [phone] | | | | + + + + + + | BUN | 26 (H)Comment: Testing | 8 - 25 mg/dL | EXTERNAL | | | | performed at [facility];888 | | LAB | | | | [address];[place] | | | | | | [phone] | | | | + + + + + + | Creatinine | 0.76Comment: Testing | 0.70 - 1.30 | EXTERNAL | | | | performed at [facility];888 | mg/dL | LAB | | | | [address];[place] | | | | | | [phone] | | | | + + + + + + | BUN/Creatin | 34Comment: Testing | | EXTERNAL | | | ine Ratio | performed at [facility];888 | | LAB | | | | [address];[place] | | | | | | [phone] | | | | + + + + + + | Calcium | 7.5 (L)Comment: Testing | 8.5 - 10.5 | EXTERNAL | | | | performed at [facility];888 | mg/dL | LAB | | | | [address];[place] | | | | | | [phone] | | | | + + + [...] | | | | | | at [facility];[address] | | | | [address];[place] [phone] | | | | + + + [...] | | | Fingerstick | performed at [facility];888 | | LAB | | | | [address];[place] | | | | | | [address] | | | | + + + [...] | | | Fingerstick | performed at [facility];888 | | LAB | | | | [address];[place] | | | | | | [phone] | | | | + + + [...] | | | Fingerstick | performed at [facility];888 | | LAB | | | | [address];[place], [place] | | | | | | [address] | | | | + + + [...] | | | Fingerstick | performed at [facility];8 | | LAB | | | | [address];[place], [place] | | | | | | [address] | | | | + + + [...] | | | Fingerstick | performed at [facility];888 | | LAB | | | | [address];[place], [place] | | | | | | [address] | | | | + + + [...] | | | Fingerstick | performed at [facility];888 | | LAB | | | | [address];[place] | | | | | | [phone] | | | | + + + [...] | | | Fingerstick | performed at [facility];888 | | LAB | | | | [address];[place] | | | | | | [phone] [...] | | | Fingerstick | performed at [facility];888 | | LAB | | | | [address];[place] | | | | | | [phone] | | | | + + + [...] | | | Fingerstick | performed at [facility];888 | | LAB | | | | [address];[place], [place] | | | | | | [address] | | | | + + + [...] | | | Fingerstick | performed at [facility];888 | | LAB | | | | [address];[place] | | | | | | [address] | | | | + + + [...] GROWTH | | | Testing performed at [facility], | | | [address] [place] [address] | | + + + + +---------+ [...] | | | Fingerstick | performed at [facility];888 | | LAB | | | | [address];[place] | | | | | | [phone] | | | | + + + [...] GROWTH | | | Testing performed at [facility], | | | [address] [place] [address] | | + + + + +---------+ [...] | | | Fingerstick | performed at [facility];888 | | LAB | | | | [address];[place] | | | | | | [address] | | | | + + + [...] | | | Fingerstick | performed at [facility];888 | | LAB | | | | [address];[place] | | | | | | [address] | | | | + + + [...] | | | Fingerstick | performed at [facility];888 | | LAB | | | | [address];[place] | | | | | | [address] | | | | + + + [...] | | | Fingerstick | performed at [facility];888 | | LAB | | | | [address];[place], [place] | | | | | | [address] | | | | + + + [...] | | | Fingerstick | performed at [facility];888 | | LAB | | | | [address];[place], [place] | | | | | | [address] | | | | + + [...] | | | Fingerstick | performed at [facility] | | LAB | | | | [address];[place] | | | | | | [address] | | | | + + + [...] | | | Fingerstick | performed at [facility];888 | | LAB | | | | [address];[place] | | | | | | [phone] | | | | + + + [...] | | | Fingerstick | performed at [facility];888 | | LAB | | | | [address];[place] | | | | | | [phone] | | | | + + + [...] | | | Fingerstick | performed at [facility];888 | | LAB | | | | [address];[place], [place] | | | | | | [address] | | | | + + + [...] | | | Fingerstick | performed at [facility];888 | | LAB | | | | [address];[place], [place] | | | | | | [address] | | | | + + + [...] EXTERNAL | | | | performed at [facility], [address] | K/uL | LAB | | | | [place], | | | | | | [place] [address] | | | | + + + + + + | RED CELL | 2.49 (L)Comment: Testing | 4.20 - 5.70 | EXTERNAL | | | COUNT | performed at [facility], [address] | M/uL | LAB | | | | [address] [place], | | | | | | [place] [address] | | | | + + + + + + | Hgb | 8.4 (L)Comment: Testing | 13.2 - 17.0 | EXTERNAL | | | | performed at [facility], [address] | g/dL | LAB | | | | [address], | | | | | | [place] [address] | | | | + + + + + + | Hematocrit, | 24.4 (L)Comment: Testing | 39.0 - 50.0 % | EXTERNAL | | | POC | performed at [facility], [address] | | LAB | | | | [address] [place], | | | | | | [place] [address] | | | | + + + + + + | MCV | 97.8Comment: Testing | 80.0 - 100.0 fl | EXTERNAL | | | | performed at [facility], [address] | | LAB | | | | [address], | | | | | | [place] [address] | | | | + + + + + + | MCH | 33.8Comment: Testing | 27.0 - 34.0 pg | EXTERNAL | | | | performed at [facility], [address] | | LAB | | | | [address], | | | | | | [place] [address] | | | | + + + + + + | MCHC | 34.5Comment: Testing | 32.0 - 35.5 | EXTERNAL | | | | performed at [facility], [address] | g/dL | LAB | | | | [address], | | | | | | [place] [address] | | | | + + + + + + | RDW-CV | 41.6Comment: Testing | 37 - 53 fl | EXTERNAL | | | | performed at [facility], [address] | | LAB | | | | [address], | | | | | | [place] [address] | | | | + + + + + + | Platelet | 154Comment: Testing | 150 - 400 K/uL | EXTERNAL | | | Count | performed at [facility], [address] | | LAB | | | Plasma | [address], | | | | | | [place] [address] | | | | + + + + + + | MPV | 8.5Comment: Testing | fl | EXTERNAL | | | | performed at [facility], [address] | | LAB | | | | [address], | | | | | | [place] [address] | | | | + + + + + + | Differentia | MANUALComment: Testing | | EXTERNAL | | | l Type | performed at [facility], [address] | | LAB | | | | [address], | | | | | | [place] [address] | | | | + + + + + + | Segmented | 65Comment: Testing | % | EXTERNAL | | | Neutrophils | performed at [facility], [address] | | LAB | | | Manual | [address], | | | | | | [place] [address] | | | | + + + + + + | % Bands | 32Comment: Testing | % | EXTERNAL | | | | performed at [facility], [address] | | LAB | | | | [address] [place], | | | | | | [place] [address] | | | | + + + + + + | % | 2Comment: Testing | % | EXTERNAL | | | Metamyelocy | performed at [facility], [address] | | LAB | | | [address], | | | | | | [place] [address] | | | | + + + + + + | Lymphocytes | 1Comment: Testing | % | EXTERNAL | | | Manual | performed at [facility], [address] | | LAB | | | | [address], | | | | | | [place] [address] | | | | + + + + + + | Absolute | 6.87Comment: Testing | 1.90 - 7.40 | EXTERNAL | | | Neutrophils | performed at [facility], [address] | K/uL | LAB | | | | [address], | | | | | | [place] [address] | | | | + + + + + + | Bands | 3.38 (H)Comment: Testing | 0.00 - 0.20 | EXTERNAL | | | Manual | performed at [facility], [address] | K/uL | LAB | | | | [address], | | | | | | [place] [address] | | | | + + + + + + | Absolute | 0.21 (H)Comment: Testing | K/uL | EXTERNAL | | | Metamyelocy | performed at [facility], [address] | | LAB | | | [address] | [address], | | | | | | [place] [address] | | | | + + + + + + | Absolute | 0.11 (L)Comment: Testing | 1.00 - 3.90 | EXTERNAL | | | Lymphocytes | performed at [facility], [address] | K/uL | LAB | | | | [address], | | | | | | [place] [address] | | | | + + + + + + | RBC | RBC AND PLT MORPHOLOGY | | EXTERNAL | | | Morphology | APPEAR NORMALComment: | | LAB | | | | Testing performed at | | | | | | [facility], [address] [facility] | | | | | | [place] | | | | | | [address] | | | | + + + [...] EXTERNAL | | | | performed at [facility], [address] | | LAB | | | | [address], | | | | | | [place] [address] | | | | + + + [...] | | | | [place] [address] | | | | + + + [...] + + | Hemoglobin | 5.0Comment: The [place]ian | 4.0 - 6.0 % | EXTERNAL [...] | | | | | performed at [facility], [address] | | | | | | [address], | | | | | | [place] [address] | | | | + + + [...] | | | | | performed at [facility], [address] | | | | | | [facility], | | | | | | [place] [address] | | | | + + + [...] | | | | [place] [address] | | | | + + + + + + | K | 3.5Comment: Testing | 3.5 - 4.9 | EXTERNAL | | | | performed at [facility], [address] | mmol/L | LAB | | | | [address], | | | | | | [place] [address] | | | | + + + + + + | Cl | 105Comment: Testing | 99 - 109 mmol/L | EXTERNAL | | | | performed at [facility], [address] | | LAB | | | | [address], | | | | | | [place] [address] | | | | + + + + + + | CO2 | 23Comment: Testing | 23 - 32 mmol/L | EXTERNAL | | | | performed at [facility], [address] | | LAB | | | | [address] [place], | | | | | | [place] [address] | | | | + + + + + + | Anion Gap | 11Comment: Testing | 5 - 20 mmol/L | EXTERNAL | | | | performed at [facility], [address] | | LAB | | | | [address], | | | | | | [place] [address] | | | | + + + + + + | Glucose, | 130 (H)Comment: Testing | 65 - 99 mg/dL | EXTERNAL | | | Fasting | performed at [facility], [address] | | LAB | | | | [address], | | | | | | [place] [address] | | | | + + + + + + | BUN | 15Comment: Testing | 8 - 25 mg/dL | EXTERNAL | | | | performed at [facility], [address] | | LAB | | | | [address], | | | | | | [place] [address] | | | | + + + + + + | Creatinine | 0.72Comment: Testing | 0.70 - 1.30 | EXTERNAL | | | | performed at [facility], [address] | mg/dL | LAB | | | | [address], | | | | | | [place] [address] | | | | + + + + + + | BUN/Creatin | 21Comment: Testing | | EXTERNAL | | | ine Ratio | performed at [facility], [address] | | LAB | | | | [address], | | | | | | [place] [address] | | | | + + + + + + | Calcium | 7.8 (L)Comment: Testing | 8.5 - 10.5 | EXTERNAL | | | | performed at [facility], [address] | mg/dL | LAB | | | | [address], | | | | | | [place] [address] | | | | + + + [...] | | | | | | at [facility], [address] | | | | | | [address], | | | | | | [place] [address] | | | | + + + [...] | | | Fingerstick | performed at [facility];[address] | | LAB | | | | [address];[place] | | | | | | [address] | | | | + + + [...] | | | Fingerstick | performed at [facility];8 | | LAB | | | | [address];[place], [place] | | | | | | [address] | | | | + + + [...] | | | Fingerstick | performed at [facility];888 | | LAB | | | | [address];[place], [place] | | | | | | [address] | | | | + + + [...] EXTERNAL | | | | performed at [facility] | | LAB | | | | [address] [facility];[place], [place] | | | | | | [address] | | | | + + + [...] | | | Random | performed at [facility] | | LAB | | | | [address];[place] | | | | | | [address] | | | | + + + [...] EXTERNAL | | | | performed at [facility];888 | mmol/L | LAB | | | | [address];[place] | | | | | | [address] | | | | + + + + + + | K | 3.1 (L)Comment: Testing | 3.5 - 4.9 | EXTERNAL | | | | performed at [facility];888 | mmol/L | LAB | | | | [address];[place] | | | | | | [address] | | | | + + + + + + | Cl | 105Comment: Testing | 99 - 109 mmol/L | EXTERNAL | | | | performed at [facility];[address] | | LAB | | | | [address];[place] | | | | | | [address] | | | | + + + + + + | CO2 | 22 (L)Comment: Testing | 23 - 32 mmol/L | EXTERNAL | | | | performed at [facility];888 | | LAB | | | | [address];[place] | | | | | | [address] | | | | + + + + + + | Anion Gap | 12Comment: Testing | 5 - 20 mmol/L | EXTERNAL | | | | performed at [facility];888 | | LAB | | | | [address];[place] | | | | | | [phone] | | | | + + + + + + | Glucose, | 245 (H)Comment: Testing | 65 - 99 mg/dL | EXTERNAL | | | Fasting | performed at [facility];888 | | LAB | | | | [address];[place] | | | | | | [address] | | | | + + + + + + | BUN | 15Comment: Testing | 8 - 25 mg/dL | EXTERNAL | | | | performed at [facility];888 | | LAB | | | | [address];[place] | | | | | | [address] | | | | + + + + + + | Creatinine | 0.84Comment: Testing | 0.70 - 1.30 | EXTERNAL | | | | performed at [facility];888 | mg/dL | LAB | | | | [address];[place] | | | | | | [address] | | | | + + + + + + | BUN/Creatin | 18Comment: Testing | | EXTERNAL | | | ine Ratio | performed at [facility];888 | | LAB | | | | [address];[place] | | | | | | [phone] | | | | + + + + + + | Calcium | 7.3 (L)Comment: Testing | 8.5 - 10.5 | EXTERNAL | | | | performed at [facility];888 | mg/dL | LAB | | | | [address];[place] | | | | | | [phone] | | | | + + + [...] | | | | | | at [facility];[address] [place] [address] | | | | | | vd;[place] [address] | | | | + + + [...] | | | Fingerstick | performed at [facility];888 | | LAB | | | | [address];[place] | | | | | | [phone] | | | | + + + [...] | | | Fingerstick | performed at [facility];[address] | | LAB | | | | [address];[place], [place] | | | | | | [address] | | | | + + + [...] GROWTH | | | Testing performed at [facility], [address] | | | [place] [address] | | + + + + +---------+ [...] | | | Fingerstick | performed at [facility];[address] | | LAB | | | | [address];[place], [place] | | | | | | [address] | | | | + + + [...] EXTERNAL | | | | performed at [facility];8 | | LAB | | | | [address];[place], [place] | | | | | | [address] | | | | + + + [...] | | | regurgitation is present. 6. Tcgl-ll-rpfyubrr tricuspid regurgitation | | | present. 7. [...] | Moderate mitral regurgitation is present. 6. Ttkt-vq-grdgkqlx | | | tricuspid regurgitation present. 7. [...] structurally normal. Tricuspid Valve: | | | Volq-yk-lmwacwnv tricuspid regurgitation present. Tricuspid Valve: | | [...] 0.31 m/s TV Dec | | | Osborne: 2.85 m/s2 TV Dec Time: 143.08 ms TV E Shade: 0.40 m/s | | | TV E/A Ratio: 1.30 Licensed Embalmer Supervisor: JAYCEE Authenticated by: Attila | | [...] | impaired.5. Moderate mitral regurgitation is present.6. Kyte-hf-qrlnuiyq tricuspid | | regurgitation present.7. There is [...] | tricuspid valve appears structurally normal.Tricuspid Valve: Tuyx-bo-hvjvxitf tricuspid | | regurgitation present.Tricuspid Valve: There [...] (A-L): 35.80 ml/m2LAAs | | A2C: 18.62 ip4DSASF A-L A2C: 55.53 mlLAESV MOD A2C: 52.66 mlLALs A2C: 5.30 | | cmLAAs A4C: 21.73 pa1XZKIA A-L A4C: 69.59 mlLAESV MOD A4C: 63.41 mlLALs A4C: | | 5.76 cmHR: 100.23 BPMAV maxP.95 mmHgAV meanP.97 mmHgAV Vmax: 1.11 m/Svetlana | | Vmean: 0.83 m/Svetlana VTI: 18.56 cmAVA Vmax: 2.21 cm2AVA (VTI): 2.49 fm2RLBM Dopp: | | 2.57 l/ssrr6GDFE Dopp: 4.66 l/minHR: 100.81 BPMLVOT maxP.16 mmHgLVOT [...] 2.62 m/sTV A Shade: 0.31 m/sTV Dec Osborne: 2.85 | | m/s2TV Dec Time: 143.08 msTV E Shade: 0.40 m/sTV E/A Ratio: 1.30 Licensed Embalmer Supervisor: | | GDAuthenticated by: Attila Yepez [...] Moderate mitral regurgitation is | | present.6. Zktn-su-nvdxwgxb tricuspid regurgitation present.7. There is mild pulmonary [...] A Shade: 0.31 m/s | |TV Dec Osborne: 2.85 m/s2 | |TV Dec Time: 143.08 ms | |TV E Shade: 0.40 m/s | |TV E/A Ratio: 1.30 | | | |Licensed Embalmer Supervisor: GD | |Authenticated by: Attila Yepez [...] Moderate mitral regurgitation is present. | |6. Ixwt-sv-fofeuqvk tricuspid regurgitation present. | |7. There is mild pulmonary hypertension. | + + MRSA NAAT (01/12/2015 7:59 AM PDT) + + | Specimen | + + | | + + + + + | Narrative | Performed At | + + + | SOURCE NARES(NOSE) | EXTERNAL LAB | | Testing performed at [facility];[address] [place] [address];[place] [address] MRSA PCR | | | NEGATIVE Testing performed at | | | [address];[place] [address] | | + + + + +---------+ [...] NIGHAT | | | Testing performed at [facility], [address] [facility], | | | [place] [address] Suscepibility for - ESCHERICHIA COLI | | [...] | | | | | | ACUTE VA Testing | | | | | | performed at [facility];[address] | | | | | | [address];[place], [place] | | | | | | [address] | | | | + + + [...] EXTERNAL | | | | performed at [facility];888 | mmol/L | LAB | | | | [address];[place], [place] | | | | | | [address] | | | | + + + + + + | K | 3.8Comment: SLT | 3.5 - 4.9 | EXTERNAL | | | | HEMOLYSISTesting | mmol/L | LAB | | | | performed at [facility];[address] | | | | | | [address];[place] | | | | | | [address] | | | | + + + + + + | Cl | 114 (H)Comment: Testing | 99 - 109 mmol/L | EXTERNAL | | | | performed at [facility];[address] | | LAB | | | | [address];[place] | | | | | | [address] | | | | + + + + + + | CO2 | 17 (L)Comment: Testing | 23 - 32 mmol/L | EXTERNAL | | | | performed at [facility];[address] | | LAB | | | | [address];[place] | | | | | | [address] | | | | + + + + + + | Anion Gap | 13Comment: Testing | 5 - 20 mmol/L | EXTERNAL | | | | performed at [facility];[address] | | LAB | | | | [address];[place] | | | | | | [address] | | | | + + + + + + | Glucose, | 96Comment: Testing | 65 - 99 mg/dL | EXTERNAL | | | Fasting | performed at [facility];[address] | | LAB | | | | [address];[place] | | | | | | [address] | | | | + + + + + + | BUN | 17Comment: Testing | 8 - 25 mg/dL | EXTERNAL | | | | performed at [facility];[address] | | LAB | | | | [address];[place] | | | | | | [address] | | | | + + + + + + | Creatinine | 1.00Comment: Testing | 0.70 - 1.30 | EXTERNAL | | | | performed at [facility];888 | mg/dL | LAB | | | | [address];[place] | | | | | | [address] | | | | + + + + + + | BUN/Creatin | 17Comment: Testing | | EXTERNAL | | | ine Ratio | performed at [facility];[address] | | LAB | | | | [address];[place] | | | | | | [address] | | | | + + + + + + | Calcium | 6.7 (L)Comment: Testing | 8.5 - 10.5 | EXTERNAL | | | | performed at [facility] [place];888 | mg/dL | LAB | | | | [address];[place] | | | | | | [phone] | | | | + + + [...] | | | | | | at [facility] [place];[address] | | | | | | [address];[place] [phone] | | | | + + + [...] 6:44AM | | | Referring Provider Line: [phone] ID: [id number] | | + + + [...] Jan 12 2015 6:44AM Referring Provider Line: [phone] ID: [id number] | | | |IMPRESSION: | [...] 12 2015 6:44AM Referring Provider Sharla e: [phone] ID: [id number] | + + Lactic Acid (01/12/2015 5:43 AM PDT) + + + + + + | Component | Value | Ref Range | Performed | Pathologist | | | | | At | Signature | + + + + + + | Lactate | 2.0Comment: Testing | 0.4 - 2.0 | EXTERNAL | | | | performed at [facility] [place];888 | mmol/L | LAB | | | | [address];[place], [place] | | | | | | [phone] | | | | + + + [...] | | | Fingerstick | performed at [facility] [place];[address] | | LAB | | | | [address];[place] | | | | | | [phone] | | | | + + + [...] 5:22AM Referring | | | Provider Line: [phone] ID: [id number] | | + + + [...] 2015 5:22AM | | Referring Provider Line: [phone] ID: [id number] | | | |FINDINGS: | [...] 12 2015 5:22AM Referring Provider Sharla e: [phone] ID: [id number] | + + Calcium, Ionized (01/12/2015 3:23 AM PDT) + + + + + + | Component | Value | Ref Range | Performed | Pathologist | | | | | At | Signature | + + + + + + | Calcium | 1.00 (L)Comment: Testing | 1.08 - 1.25 | EXTERNAL | | | (Calc) | performed at [facility] [place];888 | mmol/L | LAB | | | | [address];[place] | | | | | | [address] | | | | + + + + + + | pH, Bld | 7.336Comment: Testing | 7.300 - 7.450 | EXTERNAL | | | | performed at [facility] [place];[address] | | LAB | | | | [address];[place] | | | | | | [phone] | | | | + + + [...] EXTERNAL | | | | performed at [facility], [facility] | K/uL | LAB | | | | [address], | | | | | | [place] [address] | | | | + + + + + + | RED CELL | 2.62 (L)Comment: Testing | 4.20 - 5.70 | EXTERNAL | | | COUNT | performed at [facility], [address] | [address] | LAB | | | | [address], | | | | | | [place] [address] | | | | + + + + + + | Hgb | 8.9 (L)Comment: Testing | 13.2 - 17.0 | EXTERNAL | | | | performed at [facility], [address] | g/dL | LAB | | | | [address], | | | | | | [place] [address] | | | | + + + + + + | Hematocrit, | 26.1 (L)Comment: Testing | 39.0 - 50.0 % | EXTERNAL | | | POC | performed at [facility], [address] | | LAB | | | | [address], | | | | | | [place] [address] | | | | + + + + + + | MCV | 99.8Comment: Testing | 80.0 - 100.0 fl | EXTERNAL | | | | performed at [facility], [address] | | LAB | | | | [address], | | | | | | [place] [address] | | | | + + + + + + | MCH | 34.1 (H)Comment: Testing | 27.0 - 34.0 pg | EXTERNAL | | | | performed at [facility], [address] | | LAB | | | | [address], | | | | | | [place] [address] | | | | + + + + + + | MCHC | 34.2Comment: Testing | 32.0 - 35.5 | EXTERNAL | | | | performed at [facility], [address] | g/dL | LAB | | | | [address], | | | | | | [place] [address] | | | | + + + + + + | RDW-CV | 41.6Comment: Testing | 37 - 53 fl | EXTERNAL | | | | performed at [facility], [address] | | LAB | | | | [address], | | | | | | [place] [address] | | | | + + + + + + | Platelet | 173Comment: Testing | 150 - 400 K/uL | EXTERNAL | | | Count | performed at [facility], [address] | | LAB | | | Plasma | [address], | | | | | | [place] [address] | | | | + + + + + + | MPV | 8.6Comment: Testing | fl | EXTERNAL | | | | performed at [facility], [address] | | LAB | | | | [address], | | | | | | [place] [address] | | | | + + + + + + | Differentia | MANUALComment: Testing | | EXTERNAL | | | l Type | performed at [facility], [address] | | LAB | | | | [address], | | | | | | [place] [address] | | | | + + + + + + | Segmented | 53Comment: Testing | % | EXTERNAL | | | Neutrophils | performed at [facility], [address] | | LAB | | | Manual | [address], | | | | | | [place], [place] [address] | | | | + + + + + + | % Bands | 31Comment: Testing | % | EXTERNAL | | | | performed at [facility], [address] | | LAB | | | | [address], | | | | | | [place], [place] [address] | | | | + + + + + + | % | 7Comment: Testing | % | EXTERNAL | | | Metamyelocy | performed at [facility], [address] | | LAB | | | [address] | [address], | | | | | | [place] [address] | | | | + + + + + + | Lymphocytes | 5Comment: Testing | % | EXTERNAL | | | Manual | performed at [facility], [address] | | LAB | | | | [address], | | | | | | [place] [address] | | | | + + + + + + | Monocytes | 4Comment: Testing | % | EXTERNAL | | | Manual | performed at [facility], [address] | | LAB | | | | [address], | | | | | | [place] [address] | | | | + + + + + + | Absolute | 1.78 (L)Comment: Testing | 1.90 - 7.40 | EXTERNAL | | | Neutrophils | performed at [facility], [address] | K/uL | LAB | | | | [address], | | | | | | [place] [address] | | | | + + + + + + | Bands | 1.05 (H)Comment: Testing | 0.00 - 0.20 | EXTERNAL | | | Manual | performed at [facility], [address] | K/uL | LAB | | | | [address], | | | | | | [place] [address] | | | | + + + + + + | Absolute | 0.24 (H)Comment: Testing | K/uL | EXTERNAL | | | Metamyelocy | performed at [facility], [address] | | LAB | | | [address] | [address], | | | | | | [place] [address] | | | | + + + + + + | Absolute | 0.17 (L)Comment: Testing | 1.00 - 3.90 | EXTERNAL | | | Lymphocytes | performed at [facility], [address] | K/uL | LAB | | | | [address], | | | | | | [place] [address] | | | | + + + + + + | Absolute | 0.14Comment: Testing | 0.00 - 0.80 | EXTERNAL | | | Monocytes | performed at [facility], [address] | K/uL | LAB | | | | [address], | | | | | | [place] [address] | | | | + + + + + + | RBC | 1+Comment: MACRONORMAL | | EXTERNAL | | | Morphology | PLT MORPHTesting | | LAB | | | | performed at [facility], [address] | | | | | | [address], | | | | | | [place] [address] | | | | | | | [...] | | | es | performed at [facility], [address] | | LAB | | | | [address], | | | | | | [place] [address] | | | | + + + [...] | | | | [place] [address] | | | | + + + [...] EXTERNAL | | | | performed at [facility] | | LAB | | | | [address];[place] | | | | | | [address] | | | | + + + [...] EXTERNAL | | | | performed at [facility];[address] | | LAB | | | | [address];[place], [place] | | | | | | [address] | | | | + + + [...] EXTERNAL | | | | performed at [facility];[address] | mmol/L | LAB | | | | [address];[place] | | | | | | [address] | | | | + + + [...] EXTERNAL | | | | performed at [facility];[address] | mmol/L | LAB | | | | [address];[place], [place] | | | | | | [address] | | | | + + + + + + | K | 3.8Comment: Testing | 3.5 - 4.9 | EXTERNAL | | | | performed at [facility];[address] | mmol/L | LAB | | | | [address];[place] | | | | | | [address] | | | | + + + + + + | Cl | 113 (H)Comment: Testing | 99 - 109 mmol/L | EXTERNAL | | | | performed at [facility];[address] | | LAB | | | | [address];[place] | | | | | | [address] | | | | + + + + + + | CO2 | 19 (L)Comment: Testing | 23 - 32 mmol/L | EXTERNAL | | | | performed at [facility];[address] | | LAB | | | | [address];[place] | | | | | | [address] | | | | + + + + + + | Anion Gap | 12Comment: Testing | 5 - 20 mmol/L | EXTERNAL | | | | performed at [facility];[address] | | LAB | | | | [address];[place] | | | | | | [address] | | | | + + + + + + | Glucose, | 92Comment: Testing | 65 - 99 mg/dL | EXTERNAL | | | Fasting | performed at [facility];[address] | | LAB | | | | [address];[place] | | | | | | [address] | | | | + + + + + + | BUN | 17Comment: Testing | 8 - 25 mg/dL | EXTERNAL | | | | performed at [facility];[address] | | LAB | | | | [address];[place] | | | | | | [address] | | | | + + + + + + | Creatinine | 1.0Comment: Testing | 0.70 - 1.30 | EXTERNAL | | | | performed at [facility];[address] | mg/dL | LAB | | | | [address];[place] | | | | | | [address] | | | | + + + + + + | BUN/Creatin | 17Comment: Testing | | EXTERNAL | | | ine Ratio | performed at [facility];[address] | | LAB | | | | [address];[place] | | | | | | [address] | | | | + + + + + + | Calcium | 6.5 (L)Comment: Testing | 8.5 - 10.5 | EXTERNAL | | | | performed at [facility];[address] | mg/dL | LAB | | | | [address];[place] | | | | | | [address] | | | | + + + + + + | Protein, | 4.6 (L)Comment: Testing | 6.3 - 8.2 g/dL | EXTERNAL | | | Total | performed at [facility];[address] | | LAB | | | | [address];[place] | | | | | | [address] | | | | + + + + + + | Albumin | 1.8 (L)Comment: Testing | 3.3 - 4.8 g/dL | EXTERNAL | | | | performed at [facility];[address] | | LAB | | | | [address];[place] | | | | | | [address] | | | | + + + + + + | Globulin | 2.7Comment: Testing | 1.3 - 4.9 g/dL | EXTERNAL | | | | performed at [facility];[address] | | LAB | | | | [address];[place] | | | | | | [address] | | | | + + + + + + | A/G Ratio | 0.7 (L)Comment: Testing | 1.0 - 2.4 | EXTERNAL | | | | performed at [facility];[address] | | LAB | | | | [address];[place] | | | | | | [address] | | | | + + + + + + | Bilirubin | 1.4Comment: Testing | 0.1 - 1.5 mg/dL | EXTERNAL | | | Total | performed at [facility];[address] | | LAB | | | | [address];[place] | | | | | | [address] | | | | + + + + + + | ALP, | 72Comment: Testing | 35 - 115 U/L | EXTERNAL | | | External | performed at [facility];[address] | | LAB | | | | [address];[place] | | | | | | [address] | | | | + + + + + + | AST | 19Comment: Testing | 10 - 45 U/L | EXTERNAL | | | | performed at [facility];[address] | | LAB | | | | [address];[place] | | | | | | [address] | | | | + + + + + + | ALT | 16Comment: Testing | 10 - 65 U/L | EXTERNAL | | | | performed at [facility];[address] | | LAB | | | | [address];[place] | | | | | | [address] | | | | + + + [...] | | | | | | at [facility];[address] [place] [address] | | | | | | [facility];[place] [address] | | | | + + + [...] | | | Fingerstick | performed at [facility];[address] | | LAB | | | | [address];[place] | | | | | | [address] | | | | + + + [...] 12:19AM | | | Referring Provider Line: [phone] ID: [id number] | | + + + [...] 2015 12:19AM | | Referring Provider Line: [phone] ID: [id number] | | | |FINDINGS: | [...] 12 2015 12:19AM Referring Provider Li ne: [phone] ID: [id number] | + + XR Abdomen [...] 5:04PM Referring Provider Line: | | | [phone] ID: [id number] | | + + + [...] 2015 5:04PM Referring Provider | | Line: [phone] ID: [id number] | | | |TECHNIQUE: 1 [...] 12 2015 5:04PM Referring Provider Li ne: [phone] ID: [id number] | + + XR Chest 1 Vw (01/11/2015 10:46 PM PDT) + + | Specimen | + + | | + + + + + | Impressions | Performed At | + + + | Right lower lobe airspace consolidation. [facility] | | | Electronically signed by Toribio Gallo MD on Jan 12 2015 12:01AM | | | Referring Provider Line: [phone] ID: [id number] | | + + + [...] 2015 12:01AM Referring Provider | | Line: [phone] ID: [id number] | | | |TECHNIQUE: 1 [...] 12 2015 12:01AM Referring Provider Paula ne: [phone] ID: [id number] | + + POC Glucose (01/11/2015 10:23 PM PDT) + + + + + + | Component | Value | Ref Range | Performed | Pathologist | | | | | At | Signature | + + + + + + | Glucose, | 95Comment: Testing | 65 - 99 mg/dL | EXTERNAL | | | Fingerstick | performed at [facility];[address] | | LAB | | | | [address];[place], [place] | | | | | | [address] | | | | + + + [...] EXTERNAL | | | | performed at [facility];[address] | mmol/L | LAB | | | | [address];[place], [place] | | | | | | [address] | | | | + + + [...] | | | | | performed at [facility], [address] | | | | | | [address], | | | | | | [place] [address] | | | | + + + [...] | | | | [place] [address] | | | | + + + + + + | RBC, UA | 6-10Comment: Testing | 0 - 2 /hpf | EXTERNAL | | | | performed at [facility], [address] | | LAB | | | | [address], | | | | | | [place] [address] | | | | + + + + + + | Epithelial | 6-10Comment: Testing | /lpf | EXTERNAL | | | Cells | performed at [facility], [address] | | LAB | | | | [address], | | | | | | [place] [address] | | | | + + + + + + | Bacteria, | 2+ (A)Comment: Testing | | EXTERNAL | | | UA | performed at [facility], [address] | | LAB | | | [address], | | | | | | [place] [address] | | | | + + + + + + | HYALINE | 6-10Comment: Testing | | EXTERNAL | | | CASTS UA | performed at [facility], [address] | | LAB | | | [address], | | | | | | [place] [address] | | | | + + + [...] HAND | | | Testing performed at [facility];[address] | | | [address];[place] [address] GRAM STAIN | | | GRAM NEGATIVE RODS | | | SEEN IN ANAEROBIC BOTTLE | | | SMEAR RESULTS CALLED TO AND READ BACK BY: | | | YOCASTA Garcia RN [facility] ICU 0945 | | | 01/12/15 [facility] CULTURE | | | ESCHERICHIA COLIAbnormal | | | FINDING OF ORGANISM GROWTHAbnormal | | | TIME TO DETECTION: | | | 10 HOURS 48 MINUTES | | | Testing performed at [facility], [address] | | | [address], [place] [address] Suscepibility for - | | | ESCHERICHIA [...] GROWTH | | | Testing performed at [facility], | | | [address] [place] [address] | | + + + + +---------+ [...] | | | | | | at [facility];[address] [place] [address] | | | | | | [facility];[place] [address] | | | | + + + [...] | | | | | | ACUTE VA Testing | | | | | | performed at [facility];[address] | | | | | | [address];[place], [place] | | | | | | [address] | | | | + + + [...] EXTERNAL | | | | performed at [facility];[address] | K/uL | LAB | | | | [address];[place] | | | | | | [address] | | | | + + + + + + | RED CELL | 3.51 (L)Comment: Testing | 4.20 - 5.70 | EXTERNAL | | | COUNT | performed at [facility];[address] | M/uL | LAB | | | | [address];[place] | | | | | | [address] | | | | + + + + + + | Hgb | 12.1 (L)Comment: Testing | 13.2 - 17.0 | EXTERNAL | | | | performed at [facility];888 | g/dL | LAB | | | | [address];[place] | | | | | | [address] | | | | + + + + + + | Hematocrit, | 34.3 (L)Comment: Testing | 39.0 - 50.0 % | EXTERNAL | | | POC | performed at [facility];[address] | | LAB | | | | [address];[place] | | | | | | [address] | | | | + + + + + + | MCV | 97.9Comment: Testing | 80.0 - 100.0 fl | EXTERNAL | | | | performed at [facility];[address] | | LAB | | | | [address];[place] | | | | | | [address] | | | | + + + + + + | MCH | 34.4 (H)Comment: Testing | 27.0 - 34.0 pg | EXTERNAL | | | | performed at [facility];[address] | | LAB | | | | [address];[place] | | | | | | [address] | | | | + + + + + + | MCHC | 35.1Comment: Testing | 32.0 - 35.5 | EXTERNAL | | | | performed at [facility];888 | g/dL | LAB | | | | [address];[place] | | | | | | [address] | | | | + + + + + + | RDW-CV | 41.6Comment: Testing | 37 - 53 fl | EXTERNAL | | | | performed at [facility];[address] | | LAB | | | | [address];[place] | | | | | | [address] | | | | + + + + + + | Platelet | 252Comment: Testing | 150 - 400 K/uL | EXTERNAL | | | Count | performed at [facility];[address] | | LAB | | | Plasma | [address];[place] | | | | | | [address] | | | | + + + + + + | MPV | 7.8Comment: Testing | fl | EXTERNAL | | | | performed at [facility];[address] | | LAB | | | | [address];[place] | | | | | | [address] | | | | + + + + + + | Differentia | MANUALComment: Testing | | EXTERNAL | | | l Type | performed at [facility];[address] | | LAB | | | | [address];[place] | | | | | | [address] | | | | + + + + + + | Segmented | 38Comment: Testing | % | EXTERNAL | | | Neutrophils | performed at [facility];[address] | | LAB | | | Manual | [address];[place] | | | | | | [address] | | | | + + + + + + | % Bands | 36Comment: Testing | % | EXTERNAL | | | | performed at [facility];[address] | | LAB | | | | [address];[place] | | | | | | [address] | | | | + + + + + + | Lymphocytes | 6Comment: Testing | % | EXTERNAL | | | Manual | performed at [facility];[address] | | LAB | | | | [address];[place] | | | | | | [address] | | | | + + + + + + | Monocytes | 20Comment: Testing | % | EXTERNAL | | | Manual | performed at [facility];[address] | | LAB | | | | [address];[place] | | | | | | [address] | | | | + + + + + + | RBC | RBC AND PLT MORPHOLOGY | | EXTERNAL | | | Morphology | APPEAR NORMALComment: | | LAB | | | | Testing performed at | | | | | | [facility];[address];[place] [address] | | | | + + + [...] EXTERNAL | | | | performed at [facility];[address] | | LAB | | | | [address];[place] | | | | | | [address] | | | | + + + [...] EXTERNAL | | | | performed at [facility];888 | mmol/L | LAB | | | | [address];[place] | | | | | | [address] | | | | + + + + + + | K | 4.0Comment: Testing | 3.5 - 4.9 | EXTERNAL | | | | performed at [facility];888 | mmol/L | LAB | | | | [address];[place] | | | | | | [address] | | | | + + + + + + | Cl | 105Comment: Testing | 99 - 109 mmol/L | EXTERNAL | | | | performed at [facility];[address] | | LAB | | | | [address];[place] | | | | | | [address] | | | | + + + + + + | CO2 | 23Comment: Testing | 23 - 32 mmol/L | EXTERNAL | | | | performed at [facility];[address] | | LAB | | | | [address];[place] | | | | | | [address] | | | | + + + + + + | Anion Gap | 11Comment: Testing | 5 - 20 mmol/L | EXTERNAL | | | | performed at [facility];[address] | | LAB | | | | [address];[place] | | | | | | [address] | | | | + + + + + + | Glucose, | 134 (H)Comment: Testing | 65 - 99 mg/dL | EXTERNAL | | | Fasting | performed at [facility];[address] | | LAB | | | | [address];[place] | | | | | | [address] | | | | + + + + + + | BUN | 19Comment: Testing | 8 - 25 mg/dL | EXTERNAL | | | | performed at [facility];[address] | | LAB | | | | [address];[place] | | | | | | [address] | | | | + + + + + + | Creatinine | 1.8 (H)Comment: Testing | 0.70 - 1.30 | EXTERNAL | | | | performed at [facility];888 | mg/dL | LAB | | | | [address];[place] | | | | | | [address] | | | | + + + + + + | BUN/Creatin | 10Comment: Testing | | EXTERNAL | | | ine Ratio | performed at [facility];[address] | | LAB | | | | [address];[place] | | | | | | [address] | | | | + + + + + + | Calcium | 8.1 (L)Comment: Testing | 8.5 - 10.5 | EXTERNAL | | | | performed at [facility];888 | mg/dL | LAB | | | | [address];[place] | | | | | | [address] | | | | + + + [...] | | | | | | at [facility];[address] [place] [address] | | | | | | [facility];[place] [address] | | | | + + + [...] HAND | | | Testing performed at [facility];[address] | | | [facility];[place] [address] CULTURE | | | NO GROWTH | | | Testing performed at [facility], [address] [facility], [place], [place] | | | [address] | | + + + + +---------+ [...] HAND | | | Testing performed at [facility];[address] | | | [facility];[place] [address] CULTURE | | | NO GROWTH | | | Testing performed at [facility], [address] [facility], [place], [place] | | | [address] | | + + + + +---------+ [...] PDT JOSE EATONXR ABDOMEN ACUTE | | [id number]/11/2015 7:31 AM History: 64 years. Male. Acute [...] EXTERNAL | | | | performed at [facility], [address] | K/uL | LAB | | | | [address], | | | | | | [place] [address] | | | | + + + + + + | RED CELL | 3.64 (L)Comment: Testing | 4.20 - 5.70 | EXTERNAL | | | COUNT | performed at [facility], [address] | M/uL | LAB | | | | [address], | | | | | | [place] [address] | | | | + + + + + + | Hgb | 12.4 (L)Comment: Testing | 13.2 - 17.0 | EXTERNAL | | | | performed at [facility], [address] | g/dL | LAB | | | | [address], | | | | | | [place] [address] | | | | + + + + + + | Hematocrit, | 35.9 (L)Comment: Testing | 39.0 - 50.0 % | EXTERNAL | | | POC | performed at [facility], [address] | | LAB | | | | [address], | | | | | | [place] [address] | | | | + + + + + + | MCV | 98.7Comment: Testing | 80.0 - 100.0 fl | EXTERNAL | | | | performed at [facility], [address] | | LAB | | | [address], | | | | | | [place] [address] | | | | + + + + + + | MCH | 34.0Comment: Testing | 27.0 - 34.0 pg | EXTERNAL | | | | performed at [facility], [address] | | LAB | | | | [address], | | | | | | [place] [address] | | | | + + + + + + | MCHC | 34.5Comment: Testing | 32.0 - 35.5 | EXTERNAL | | | | performed at [facility], [address] | g/dL | LAB | | | | [address], | | | | | | [place] [address] | | | | + + + + + + | RDW-CV | 41.1Comment: Testing | 37 - 53 fl | EXTERNAL | | | | performed at [facility], [address] | | LAB | | | | [address], | | | | | | [place] [address] | | | | + + + + + + | Platelet | 266Comment: Testing | 150 - 400 K/uL | EXTERNAL | | | Count | performed at [facility], [address] | | LAB | | | Plasma | [address], | | | | | | [place] [address] | | | | + + + + + + | MPV | 8.6Comment: Testing | fl | EXTERNAL | | | | performed at [facility], [address] | | LAB | | | | [address], | | | | | | [place] [address] | | | | + + + + + + | Differentia | AUTOMATEDComment: | | EXTERNAL | | | l Type | Testing performed at | | LAB | | | | [facility], [address] | | | | | | [place] | | | | | | [address] | | | | + + + + + + | % Segmented | 73.35Comment: Testing | % | EXTERNAL | | | | performed at [facility], [address] | | LAB | | | Neutrophils | [address], | | | | | | [place] [address] | | | | + + + + + + | % | 8.54Comment: Testing | % | EXTERNAL | | | Lymphocytes | performed at [facility], [address] | | LAB | | | | [address], | | | | | | [place], [place] [address] | | | | + + + + + + | % Monocytes | 13.66Comment: Testing | % | EXTERNAL | | | | performed at [facility], [address] | | LAB | | | | [address], | | | | | | [place] [address] | | | | + + + + + + | % | 4.07Comment: Testing | % | EXTERNAL | | | Eosinophils | performed at [facility], [address] | | LAB | | | | [address], | | | | | | [place] [address] | | | | + + + + + + | % Basophils | 0.38Comment: Testing | % | EXTERNAL | | | | performed at [facility], [address] | | LAB | | | | [address], | | | | | | [place] [address] | | | | + + + + + + | Absolute | 3.36Comment: Testing | 1.90 - 7.40 | EXTERNAL | | | Segmented | performed at [facility], [address] | K/uL | LAB | | | Neutrophils | [address], | | | | | | [place] [address] | | | | + + + + + + | Absolute | 0.39 (L)Comment: Testing | 1.00 - 3.90 | EXTERNAL | | | Lymphocytes | performed at [facility], [address] | [address] | LAB | | | | [address], | | | | | | [place] [address] | | | | + + + + + + | Absolute | 0.63Comment: Testing | 0.00 - 0.80 | EXTERNAL | | | Monocytes | performed at [facility], [address] | K/[address] | LAB | | | | [address], | | | | | | [place] [address] | | | | + + + + + + | Absolute | 0.19Comment: Testing | 0.00 - 0.50 | EXTERNAL | | | Eosinophils | performed at [facility], [address] | [address] | LAB | | | | [address], | | | | | | [place] [address] | | | | + + + + + + | Absolute | 0.02Comment: Testing | 0.00 - 0.10 | EXTERNAL | | | Basophils | performed at [facility], [address] | K[address] | LAB | | | | [address], | | | | | | [place] [address] | | | | + + + [...] EXTERNAL | | | | performed at [facility], [address] | | LAB | | | | [place], | | | | | | [place] [address] | | | | + + + [...] EXTERNAL | | | | performed at [facility], [address] | | LAB | | | | [place], | | | | | | [place] [address] | | | | + + + [...] | | | | [place] [address] | | | | + + + + + + | K | 4.1Comment: Testing | 3.5 - 4.9 | EXTERNAL | | | | performed at [facility], [address] | mmol/L | LAB | | | | [address], | | | | | | [place] [address] | | | | + + + + + + | Cl | 100Comment: Testing | 99 - 109 mmol/L | EXTERNAL | | | | performed at [facility], [address] | | LAB | | | | [address], | | | | | | [place] [address] | | | | + + + + + + | CO2 | 23Comment: Testing | 23 - 32 mmol/L | EXTERNAL | | | | performed at [facility], [address] | | LAB | | | | [address], | | | | | | [place] [address] | | | | + + + + + + | Anion Gap | 10Comment: Testing | 5 - 20 mmol/L | EXTERNAL | | | | performed at [facility], [address] | | LAB | | | | [address], | | | | | | [place] [address] | | | | + + + + + + | Glucose, | 135 (H)Comment: Testing | 65 - 99 mg/dL | EXTERNAL | | | Fasting | performed at [facility], [address] | | LAB | | | | [address], | | | | | | [place] [address] | | | | + + + + + + | BUN | 12Comment: Testing | 8 - 25 mg/dL | EXTERNAL | | | | performed at [facility], [address] | | LAB | | | | [address], | | | | | | [place] [address] | | | | + + + + + + | Creatinine | 0.67 (L)Comment: Testing | 0.70 - 1.30 | EXTERNAL | | | | performed at [facility], [address] | mg/dL | LAB | | | | [address], | | | | | | [place] [address] | | | | + + + + + + | BUN/Creatin | 18Comment: Testing | | EXTERNAL | | | ine Ratio | performed at [facility], [address] | | LAB | | | | [address], | | | | | | [place] [address] | | | | + + + + + + | Calcium | 8.8Comment: Testing | 8.5 - 10.5 | EXTERNAL | | | | performed at [facility], [address] | mg/dL | LAB | | | | [facility], | | | | | | [place] [address] | | | | + + + [...] W | | | | | | [facility], | | | | | | [place] [address] | | | | + + + [...] EXTERNAL | | | | performed at [facility], [address] | K/uL | LAB | | | | [address], | | | | | | [place] [address] | | | | + + + + + + | RED CELL | 3.87 (L)Comment: Testing | 4.20 - 5.70 | EXTERNAL | | | COUNT | performed at [facility], [address] | M/uL | LAB | | | | [address], | | | | | | [place] [address] | | | | + + + + + + | Hgb | 13.3Comment: Testing | 13.2 - 17.0 | EXTERNAL | | | | performed at [facility], [address] | g/dL | LAB | | | | [address], | | | | | | [place] [address] | | | | + + + + + + | Hematocrit, | 38.1 (L)Comment: Testing | 39.0 - 50.0 % | EXTERNAL | | | POC | performed at [facility], [address] | | LAB | | | | [address], | | | | | | [place] [address] | | | | + + + + + + | MCV | 98.6Comment: Testing | 80.0 - 100.0 fl | EXTERNAL | | | | performed at [facility], [address] | | LAB | | | | [address], | | | | | | [place] [address] | | | | + + + + + + | MCH | 34.4 (H)Comment: Testing | 27.0 - 34.0 pg | EXTERNAL | | | | performed at [facility], [address] | | LAB | | | | [address], | | | | | | [place] [address] | | | | + + + + + + | MCHC | 34.9Comment: Testing | 32.0 - 35.5 | EXTERNAL | | | | performed at [facility], [address] | g/dL | LAB | | | | [address], | | | | | | [place] [address] | | | | + + + + + + | RDW-CV | 40.3Comment: Testing | 37 - 53 fl | EXTERNAL | | | | performed at [facility], [address] | | LAB | | | | [address], | | | | | | [place] [address] | | | | + + + + + + | Platelet | 256Comment: Testing | 150 - 400 K/uL | EXTERNAL | | | Count | performed at [facility], [address] | | LAB | | | Plasma | [address], | | | | | | [place] [address] | | | | + + + + + + | MPV | 8.4Comment: Testing | fl | EXTERNAL | | | | performed at [facility], [address] | | LAB | | | | [address], | | | | | | [place] [address] | | | | + + + + + + | Differentia | AUTOMATEDComment: | | EXTERNAL | | | l Type | Testing performed at | | LAB | | | | [facility], [address], [place], [place] | | | | | | [address] | | | | + + + + + + | % Segmented | 74.27Comment: Testing | % | EXTERNAL | | | | performed at [facility], [address] | | LAB | | | Neutrophils | [address], | | | | | | [place] [address] | | | | + + + + + + | % | 6.19Comment: Testing | % | EXTERNAL | | | Lymphocytes | performed at [facility], [address] | | LAB | | | [address], | | | | | | [place] [address] | | | | + + + + + + | % Monocytes | 14.96Comment: Testing | % | EXTERNAL | | | | performed at [facility], [address] | | LAB | | | | [address], | | | | | | [place] [address] | | | | + + + + + + | % | 4.17Comment: Testing | % | EXTERNAL | | | Eosinophils | performed at [facility], [address] | | LAB | | | | [address], | | | | | | [place] [address] | | | | + + + + + + | % Basophils | 0.41Comment: Testing | % | EXTERNAL | | | | performed at [facility], [address] | | LAB | | | | [address], | | | | | | [place] [address] | | | | + + + + + + | Absolute | 3.48Comment: Testing | 1.90 - 7.40 | EXTERNAL | | | Segmented | performed at [facility], [address] | K/uL | LAB | | | Neutrophils | [address], | | | | | | [place] [address] | | | | + + + + + + | Absolute | 0.29 (L)Comment: Testing | 1.00 - 3.90 | EXTERNAL | | | Lymphocytes | performed at [facility], [address] | K/uL | LAB | | | | [address], | | | | | | [place] [address] | | | | + + + + + + | Absolute | 0.70Comment: Testing | 0.00 - 0.80 | EXTERNAL | | | Monocytes | performed at [facility], [address] | K/uL | LAB | | | | [address], | | | | | | [place] [address] | | | | + + + + + + | Absolute | 0.20Comment: Testing | 0.00 - 0.50 | EXTERNAL | | | Eosinophils | performed at [facility], [address] | K/uL | LAB | | | | [address], | | | | | | [place] [address] | | | | + + + + + + | Absolute | 0.02Comment: Testing | 0.00 - 0.10 | EXTERNAL | | | Basophils | performed at [facility], [address] | K/uL | LAB | | | | [address], | | | | | | [place] [address] | | | | + + + [...] EXTERNAL | | | | performed at [facility], [address] | | LAB | | | | [address], | | | | | | [place] [address] | | | | + + [...] EXTERNAL | | | | performed at [facility], [address] | | LAB | | | | [address], | | | | | | [place] [address] | | | | + + + [...] | | | | [place] [address] | | | | + + + + + + | K | 4.6Comment: Testing | 3.5 - 4.9 | EXTERNAL | | | | performed at [facility], [address] | mmol/L | LAB | | | | [address], | | | | | | [place] [address] | | | | + + + + + + | Cl | 101Comment: Testing | 99 - 109 mmol/L | EXTERNAL | | | | performed at [facility], [address] | | LAB | | | | [address], | | | | | | [place] [address] | | | | + + + + + + | CO2 | 24Comment: Testing | 23 - 32 mmol/L | EXTERNAL | | | | performed at [facility], [address] | | LAB | | | | [address], | | | | | | [place] [address] | | | | + + + + + + | Anion Gap | 11Comment: Testing | 5 - 20 mmol/L | EXTERNAL | | | | performed at [facility], [address] | | LAB | | | | [address], | | | | | | [place] [address] | | | | + + + + + + | Glucose, | 131 (H)Comment: Testing | 65 - 99 mg/dL | EXTERNAL | | | Fasting | performed at [facility], [address] | | LAB | | | | [address], | | | | | | [place] [address] | | | | + + + + + + | BUN | 14Comment: Testing | 8 - 25 mg/dL | EXTERNAL | | | | performed at [facility], [address] | | LAB | | | | [address], | | | | | | [place] [address] | | | | + + + + + + | Creatinine | 0.93Comment: Testing | 0.70 - 1.30 | EXTERNAL | | | | performed at [facility], [address] | mg/dL | LAB | | | | [address], | | | | | | [place] [address] | | | | + + + + + + | BUN/Creatin | 15Comment: Testing | | EXTERNAL | | | ine Ratio | performed at [facility], [address] | | LAB | | | | [address], | | | | | | [place] [address] | | | | + + + + + + | Calcium | 9.1Comment: Testing | 8.5 - 10.5 | EXTERNAL | | | | performed at [facility], [address] | mg/dL | LAB | | | | [address], | | | | | | [place] [address] | | | | + + + [...] [address], | | | | | | [place] [address] | | | | + + + [...] EXTERNAL | | | | performed at [facility], [address] | K/uL | LAB | | | | [address], | | | | | | [place] [address] | | | | + + + + + + | RED CELL | 3.85 (L)Comment: Testing | 4.20 - 5.70 | EXTERNAL | | | COUNT | performed at [facility], [address] | M/uL | LAB | | | | [address], | | | | | | [place] [address] | | | | + + + + + + | Hgb | 13.2Comment: Testing | 13.2 - 17.0 | EXTERNAL | | | | performed at [facility], [address] | g/dL | LAB | | | | [address], | | | | | | [place] [address] | | | | + + + + + + | Hematocrit, | 37.6 (L)Comment: Testing | 39.0 - 50.0 % | EXTERNAL | | | POC | performed at [facility], [address] | | LAB | | | | [address], | | | | | | [place] [address] | | | | + + + + + + | MCV | 97.8Comment: Testing | 80.0 - 100.0 fl | EXTERNAL | | | | performed at [facility], [address] | | LAB | | | | [address], | | | | | | [place] [address] | | | | + + + + + + | MCH | 34.4 (H)Comment: Testing | 27.0 - 34.0 pg | EXTERNAL | | | | performed at [facility], [address] | | LAB | | | | [address], | | | | | | [place] [address] | | | | + + + + + + | MCHC | 35.2Comment: Testing | 32.0 - 35.5 | EXTERNAL | | | | performed at [facility], [address] | g/dL | LAB | | | | [address], | | | | | | [place] [address] | | | | + + + + + + | RDW-CV | 39.4Comment: Testing | 37 - 53 fl | EXTERNAL | | | | performed at [facility], [address] | | LAB | | | | [address], | | | | | | [place] [address] | | | | + + + + + + | Platelet | 223Comment: Testing | 150 - 400 K/uL | EXTERNAL | | | Count | performed at [facility], [address] | | LAB | | | Plasma | [address], | | | | | | [place] [address] | | | | + + + + + + | MPV | 8.7Comment: Testing | fl | EXTERNAL | | | | performed at [facility], [address] | | LAB | | | | [address], | | | | | | [place] [address] | | | | + + + + + + | Differentia | AUTOMATEDComment: | | EXTERNAL | | | l Type | Testing performed at | | LAB | | | | [facility], [address] | | | | | | [place] | | | | | | [address] | | | | + + + + + + | % Segmented | 84.48Comment: Testing | % | EXTERNAL | | | | performed at [facility], [address] | | LAB | | | Neutrophils | [address], | | | | | | [place] [address] | | | | + + + + + + | % | 5.21Comment: Testing | % | EXTERNAL | | | Lymphocytes | performed at [facility], [address] | | LAB | | | | [address], | | | | | | [place] [address] | | | | + + + [...] | | | | | | [place] [address] | | | | + + + + + + | % Basophils | 0.53Comment: Testing | % | EXTERNAL | | | | performed at [facility], [address] | | LAB | | | | [address], | | | | | | [place] [address] | | | | + + + + + + | Absolute | 6.70Comment: Testing | 1.90 - 7.40 | EXTERNAL | | | Segmented | performed at [facility], [address] | K/uL | LAB | | | Neutrophils | [address], | | | | | | [place] [address] | | | | + + + + + + | Absolute | 0.41 (L)Comment: Testing | 1.00 - 3.90 | EXTERNAL | | | Lymphocytes | performed at [facility], [address] | [address]L | LAB | | | | [address], | | | | | | [place] [address] | | | | + + + + + + | Absolute | 0.59Comment: Testing | 0.00 - 0.80 | EXTERNAL | | | Monocytes | performed at [facility], [address] | K/uL | LAB | | | | [address], | | | | | | [place] [address] | | | | + + + + + + | Absolute | 0.18Comment: Testing | 0.00 - 0.50 | EXTERNAL | | | Eosinophils | performed at [facility], [address] | K[address]uL | LAB | | | | [address], | | | | | | [place] [address] | | | | + + + + + + | Absolute | 0.04Comment: Testing | 0.00 - 0.10 | EXTERNAL | | | Basophils | performed at [facility], [address] | K/uL | LAB | | | | [address], | | | | | | [place] [address] | | | | + + + [...] | | | | [place] [address] | | | | + + + [...] EXTERNAL | | | | performed at [facility], [address] | | LAB | | | | [address], | | | | | | [place] [address] | | | | + + + [...] | | | | [place] [address] | | | | + + + + + + | K | 4.1Comment: Testing | 3.5 - 4.9 | EXTERNAL | | | | performed at [facility], [address] | mmol/L | LAB | | | | [address], | | | | | | [place] [address] | | | | + + + + + + | Cl | 100Comment: Testing | 99 - 109 mmol/L | EXTERNAL | | | | performed at [facility], [address] | | LAB | | | | [address], | | | | | | [place] [address] | | | | + + + + + + | CO2 | 23Comment: Testing | 23 - 32 mmol/L | EXTERNAL | | | | performed at [facility], [address] | | LAB | | | | [address], | | | | | | [place] [address] | | | | + + + + + + | Anion Gap | 10Comment: Testing | 5 - 20 mmol/L | EXTERNAL | | | | performed at [facility], [address] | | LAB | | | | [address], | | | | | | [place] [address] | | | | + + + + + + | Glucose, | 144 (H)Comment: Testing | 65 - 99 mg/dL | EXTERNAL | | | Fasting | performed at [facility], [address] | | LAB | | | | [address], | | | | | | [place] [address] | | | | + + + + + + | BUN | 7 (L)Comment: Testing | 8 - 25 mg/dL | EXTERNAL | | | | performed at [facility], [address] | | LAB | | | | [address], | | | | | | [place] [address] | | | | + + + + + + | Creatinine | 0.54 (L)Comment: Testing | 0.70 - 1.30 | EXTERNAL | | | | performed at [facility], [address] | mg/dL | LAB | | | | [address], | | | | | | [place] [address] | | | | + + + + + + | BUN/Creatin | 13Comment: Testing | | EXTERNAL | | | ine Ratio | performed at [facility], [address] | | LAB | | | | [address], | | | | | | [place] [address] | | | | + + + + + + | Calcium | 9.1Comment: Testing | 8.5 - 10.5 | EXTERNAL | | | | performed at [facility], [address] | mg/dL | LAB | | | | [address], | | | | | | [place] [address] | | | | + + + [...] | | | | [place] [address] | | | | + + + [...] EXTERNAL | | | | performed at [facility] | | LAB | | | | [address];[place] | | | | | | [address] | | | | + + + [...] K/uL | LAB | | | | [address], | | | | | | [place] [address] | | | | + + + + + + | RED CELL | 3.27 (L)Comment: Testing | 4.20 - 5.70 | EXTERNAL | | | COUNT | performed at [facility], [address] | M/uL | LAB | | | | [address], | | | | | | [place] [address] | | | | + + + + + + | Hgb | 11.2 (L)Comment: Testing | 13.2 - 17.0 | EXTERNAL | | | | performed at [facility], [address] | g/dL | LAB | | | | [address], | | | | | | [place] [address] | | | | + + + + + + | Hematocrit, | 32.3 (L)Comment: Testing | 39.0 - 50.0 % | EXTERNAL | | | POC | performed at [facility], [address] | | LAB | | | | [address], | | | | | | [place] [address] | | | | + + + + + + | MCV | 98.9Comment: Testing | 80.0 - 100.0 fl | EXTERNAL | | | | performed at [facility], [address] | | LAB | | | | [address], | | | | | | [place] [address] | | | | + + + + + + | MCH | 34.4 (H)Comment: Testing | 27.0 - 34.0 pg | EXTERNAL | | | | performed at [facility], [address] | | LAB | | | | [address], | | | | | | [place] [address] | | | | + + + + + + | MCHC | 34.8Comment: Testing | 32.0 - 35.5 | EXTERNAL | | | | performed at [facility], [address] | g/dL | LAB | | | | [address], | | | | | | [place] [address] | | | | + + + + + + | RDW-CV | 41.6Comment: Testing | 37 - 53 fl | EXTERNAL | | | | performed at [facility], [address] | | LAB | | | | [address], | | | | | | [place] [address] | | | | + + + + + + | Platelet | 204Comment: Testing | 150 - 400 K/uL | EXTERNAL | | | Count | performed at [facility], [address] | | LAB | | | Plasma | [address], | | | | | | [place] [address] | | | | + + + + + + | MPV | 8.5Comment: Testing | fl | EXTERNAL | | | | performed at [facility], [address] | | LAB | | | | [address], | | | | | | [place] [address] | | | | + + + + + + | Differentia | AUTOMATEDComment: | | EXTERNAL | | | l Type | Testing performed at | | LAB | | | | [facility], [address] | | | | | | [place] | | | | | | [address] | | | | + + + + + + | % Segmented | 73.92Comment: Testing | % | EXTERNAL | | | | performed at [facility], [address] | | LAB | | | Neutrophils | [address], | | | | | | [place] [address] | | | | + + + + + + | % | 8.09Comment: Testing | % | EXTERNAL | | | Lymphocytes | performed at [facility], [address] | | LAB | | | | [address], | | | | | | [place] [address] | | | | + + + + + + | % Monocytes | 8.93Comment: Testing | % | EXTERNAL | | | | performed at [facility], [address] | | LAB | | | | [address], | | | | | | [place] [address] | | | | + + + + + + | % | 8.19Comment: Testing | % | EXTERNAL | | | Eosinophils | performed at [facility], [address] | | LAB | | | | [address], | | | | | | [place] [address] | | | | + + + + + + | % Basophils | 0.87Comment: Testing | % | EXTERNAL | | | | performed at [facility], [address] | | LAB | | | | [address], | | | | | | [place] [address] | | | | + + + + + + | Absolute | 3.67Comment: Testing | 1.90 - 7.40 | EXTERNAL | | | Segmented | performed at [facility], [address] | K/uL | LAB | | | Neutrophils | [address], | | | | | | [place], [place] [address] | | | | + + + + + + | Absolute | 0.40 (L)Comment: Testing | 1.00 - 3.90 | EXTERNAL | | | Lymphocytes | performed at [facility], [address] | K/uL | LAB | | | | [address], | | | | | | [place], [place] [address] | | | | + + + + + + | Absolute | 0.44Comment: Testing | 0.00 - 0.80 | EXTERNAL | | | Monocytes | performed at [facility], [address] | K/uL | LAB | | | | [address], | | | | | | [place], [place] [address] | | | | + + + + + + | Absolute | 0.41Comment: Testing | 0.00 - 0.50 | EXTERNAL | | | Eosinophils | performed at [facility], [address] | K/uL | LAB | | | | [address], | | | | | | [place] [address] | | | | + + + + + + | Absolute | 0.04Comment: Testing | 0.00 - 0.10 | EXTERNAL | | | Basophils | performed at [facility], [address] | K/uL | LAB | | | | [address], | | | | | | [place] [address] | | | | + + + [...] EXTERNAL | | | | performed at [facility], [address] | | LAB | | | | [address], | | | | | | [place] [address] | | | | + + + [...] | | | | [place] [address] | | | | + + + [...] | | | | [place] [address] | | | | + + + + + + | K | 3.9Comment: Testing | 3.5 - 4.9 | EXTERNAL | | | | performed at [facility], [address] | mmol/L | LAB | | | | [address], | | | | | | [place] [address] | | | | + + + + + + | Cl | 104Comment: Testing | 99 - 109 mmol/L | EXTERNAL | | | | performed at [facility], [address] | | LAB | | | | [address], | | | | | | [place] [address] | | | | + + + + + + | CO2 | 23Comment: Testing | 23 - 32 mmol/L | EXTERNAL | | | | performed at [facility], [address] | | LAB | | | | [address], | | | | | | [place] [address] | | | | + + + + + + | Anion Gap | 8Comment: Testing | 5 - 20 mmol/L | EXTERNAL | | | | performed at [facility], [address] | | LAB | | | | [address], | | | | | | [place] [address] | | | | + + + + + + | Glucose, | 114 (H)Comment: Testing | 65 - 99 mg/dL | EXTERNAL | | | Fasting | performed at [facility], [address] | | LAB | | | | [address], | | | | | | [place] [address] | | | | + + + + + + | BUN | 7 (L)Comment: Testing | 8 - 25 mg/dL | EXTERNAL | | | | performed at [facility], [address] | | LAB | | | | [address], | | | | | | [place] [address] | | | | + + + + + + | Creatinine | 0.68 (L)Comment: Testing | 0.70 - 1.30 | EXTERNAL | | | | performed at [facility], [address] | mg/dL | LAB | | | | [address], | | | | | | [place] [address] | | | | + + + + + + | BUN/Creatin | 10Comment: Testing | | EXTERNAL | | | ine Ratio | performed at [facility], [address] | | LAB | | | | [address], | | | | | | [place] [address] | | | | + + + + + + | Calcium | 8.5Comment: Testing | 8.5 - 10.5 | EXTERNAL | | | | performed at [facility], [address] | mg/dL | LAB | | | | [address], | | | | | | [place] [address] | | | | + + + [...] | | | | | | at [facility], [address] | | | | | | [facility], | | | | | | [place] [address] | | | | + + + [...] EXTERNAL | | | | performed at [facility], [address] | K/uL | LAB | | | | [address], | | | | | | [place] [address] | | | | + + + + + + | RED CELL | 3.52 (L)Comment: Testing | 4.20 - 5.70 | EXTERNAL | | | COUNT | performed at [facility], [address] | M/uL | LAB | | | | [address], | | | | | | [place] [address] | | | | + + + + + + | Hgb | 11.9 (L)Comment: Testing | 13.2 - 17.0 | EXTERNAL | | | | performed at [facility], [address] | g/dL | LAB | | | | [address], | | | | | | [place] [address] | | | | + + + + + + | Hematocrit, | 35.0 (L)Comment: Testing | 39.0 - 50.0 % | EXTERNAL | | | POC | performed at [facility], [address] | | LAB | | | | [address], | | | | | | [place] [address] | | | | + + + + + + | MCV | 99.2Comment: Testing | 80.0 - 100.0 fl | EXTERNAL | | | | performed at [facility], [address] | | LAB | | | | [address], | | | | | | [place] [address] | | | | + + + + + + | MCH | 33.8Comment: Testing | 27.0 - 34.0 pg | EXTERNAL | | | | performed at [facility], [address] | | LAB | | | | [address], | | | | | | [place] [address] | | | | + + + + + + | MCHC | 34.0Comment: Testing | 32.0 - 35.5 | EXTERNAL | | | | performed at [facility], [address] | g/dL | LAB | | | | [address], | | | | | | [place] [address] | | | | + + + + + + | RDW-CV | 40.7Comment: Testing | 37 - 53 fl | EXTERNAL | | | | performed at [facility], [address] | | LAB | | | | [address], | | | | | | [place] [address] | | | | + + + + + + | Platelet | 214Comment: Testing | 150 - 400 K/uL | EXTERNAL | | | Count | performed at [facility], [address] | | LAB | | | Plasma | [address], | | | | | | [place] [address] | | | | + + + + + + | MPV | 8.5Comment: Testing | fl | EXTERNAL | | | | performed at [facility], [address] | | LAB | | | | [address], | | | | | | [place] [address] | | | | + + + + + + | Differentia | AUTOMATEDComment: | | EXTERNAL | | | l Type | Testing performed at | | LAB | | | | [facility], [address] | | | | | | [place] | | | | | | [address] | | | | + + + [...] | | | | [place] [address] | | | | + + + + + + | % Monocytes | 6.91Comment: Testing | % | EXTERNAL | | | | performed at [facility], [address] | | LAB | | | | [address], | | | | | | [place] [address] | | | | + + + + + + | % | 4.53Comment: Testing | % | EXTERNAL | | | Eosinophils | performed at [facility], [address] | | LAB | | | | [address], | | | | | | [place] [address] | | | | + + + + + + | % Basophils | 0.36Comment: Testing | % | EXTERNAL | | | | performed at [facility], [address] | | LAB | | | | [address], | | | | | | [place] [address] | | | | + + + + + + | Absolute | 4.50Comment: Testing | 1.90 - 7.40 | EXTERNAL | | | Segmented | performed at [facility], [address] | K/uL | LAB | | | Neutrophils | [address], | | | | | | [place] [address] | | | | + + + + + + | Absolute | 0.37 (L)Comment: Testing | 1.00 - 3.90 | EXTERNAL | | | Lymphocytes | performed at [facility], [address] | K/uL | LAB | | | | [address], | | | | | | [place] [address] | | | | + + + + + + | Absolute | 0.38Comment: Testing | 0.00 - 0.80 | EXTERNAL | | | Monocytes | performed at [facility], [address] | K/uL | LAB | | | | [address], | | | | | | [place] [address] | | | | + + + + + + | Absolute | 0.25Comment: Testing | 0.00 - 0.50 | EXTERNAL | | | Eosinophils | performed at [facility], [address] | K/uL | LAB | | | | [address], | | | | | | [place] [address] | | | | + + + + + + | Absolute | 0.02Comment: Testing | 0.00 - 0.10 | EXTERNAL | | | Basophils | performed at [facility], [address] | K/uL | LAB | | | | [address], | | | | | | [place] [address] | | | | + + + [...] EXTERNAL | | | | performed at [facility], [address] | | LAB | | | | [place], | | | | | | [place] [address] | | | | + + + [...] EXTERNAL | | | | performed at [facility], [address] | | LAB | | | | [facility], | | | | | | [place] [address] | | | | + + + [...] | | | | [place] [address] | | | | + + + + + + | K | 4.1Comment: Testing | 3.5 - 4.9 | EXTERNAL | | | | performed at [facility], [address] | mmol/L | LAB | | | | [address], | | | | | | [place] [address] | | | | + + + + + + | Cl | 104Comment: Testing | 99 - 109 mmol/L | EXTERNAL | | | | performed at [facility], [address] | | LAB | | | | [address], | | | | | | [place] [address] | | | | + + + + + + | CO2 | 23Comment: Testing | 23 - 32 mmol/L | EXTERNAL | | | | performed at [facility], [address] | | LAB | | | | [address], | | | | | | [place] [address] | | | | + + + + + + | Anion Gap | 8Comment: Testing | 5 - 20 mmol/L | EXTERNAL | | | | performed at [facility], [address] | | LAB | | | | [address], | | | | | | [place] [address] | | | | + + + + + + | Glucose, | 115 (H)Comment: Testing | 65 - 99 mg/dL | EXTERNAL | | | Fasting | performed at [facility], [address] | | LAB | | | | [address], | | | | | | [place] [address] | | | | + + + + + + | BUN | 7 (L)Comment: Testing | 8 - 25 mg/dL | EXTERNAL | | | | performed at [facility], [address] | | LAB | | | | [address], | | | | | | [place] [address] | | | | + + + + + + | Creatinine | 0.58 (L)Comment: Testing | 0.70 - 1.30 | EXTERNAL | | | | performed at [facility], [address] | mg/dL | LAB | | | | [address], | | | | | | [place] [address] | | | | + + + + + + | BUN/Creatin | 12Comment: Testing | | EXTERNAL | | | ine Ratio | performed at [facility], [address] | | LAB | | | | [address], | | | | | | [place] [address] | | | | + + + + + + | Calcium | 8.6Comment: Testing | 8.5 - 10.5 | EXTERNAL | | | | performed at [facility], [address] | mg/dL | LAB | | | | [address], | | | | | | [place] [address] | | | | + + + [...] | | | | [place] [address] | | | | + + + [...] | | | | [place] [address] | | | | + + + + + + | RED CELL | 3.39 (L)Comment: Testing | 4.20 - 5.70 | EXTERNAL | | | COUNT | performed at [facility], [address] | M/uL | LAB | | | | [address], | | | | | | [place] [address] | | | | + + + + + + | Hgb | 11.7 (L)Comment: Testing | 13.2 - 17.0 | EXTERNAL | | | | performed at [facility], [address] | g/dL | LAB | | | | [address], | | | | | | [place] [address] | | | | + + + + + + | Hematocrit, | 34.1 (L)Comment: Testing | 39.0 - 50.0 % | EXTERNAL | | | POC | performed at [facility], [address] | | LAB | | | | [address], | | | | | | [place] [address] | | | | + + + + + + | MCV | 100.6 (H)Comment: | 80.0 - 100.0 fl | EXTERNAL | | | | Testing performed at | | LAB | | | | [facility], [address] | | | | | | [place] | | | | | | [address] | | | | + + + + + + | MCH | 34.5 (H)Comment: Testing | 27.0 - 34.0 pg | EXTERNAL | | | | performed at [facility], [address] | | LAB | | | | [address], | | | | | | [place] [address] | | | | + + + + + + | MCHC | 34.3Comment: Testing | 32.0 - 35.5 | EXTERNAL | | | | performed at [facility], [address] | g/dL | LAB | | | | [address], | | | | | | [place] [address] | | | | + + + + + + | RDW-CV | 41.1Comment: Testing | 37 - 53 fl | EXTERNAL | | | | performed at [facility], [address] | | LAB | | | | [address], | | | | | | [place] [address] | | | | + + + + + + | Platelet | 169Comment: Testing | 150 - 400 K/uL | EXTERNAL | | | Count | performed at [facility], [address] | | LAB | | | Plasma | [address], | | | | | | [place] [address] | | | | + + + + + + | MPV | 9.0Comment: Testing | fl | EXTERNAL | | | | performed at [facility], [address] | | LAB | | | | [address], | | | | | | [place] [address] | | | | + + + + + + | Differentia | AUTOMATEDComment: | | EXTERNAL | | | l Type | Testing performed at | | LAB | | | | [facility], [address] | | | | | | [place] | | | | | | [address] | | | | + + + + + + | % Segmented | 78.12Comment: Testing | % | EXTERNAL | | | | performed at [facility], [address] | | LAB | | | Neutrophils | [address], | | | | | | [place] [address] | | | | + + + + + + | % | 7.52Comment: Testing | % | EXTERNAL | | | Lymphocytes | performed at [facility], [address] | | LAB | | | | [address], | | | | | | [place] [address] | | | | + + + + + + | % Monocytes | 7.66Comment: Testing | % | EXTERNAL | | | | performed at [facility], [address] | | LAB | | | | [address], | | | | | | [place], [place] [address] | | | | + + + + + + | % | 6.09Comment: Testing | % | EXTERNAL | | | Eosinophils | performed at [facility], [address] | | LAB | | | | [address], | | | | | | [place], [place] [address] | | | | + + + + + + | % Basophils | 0.61Comment: Testing | % | EXTERNAL | | | | performed at [facility], [address] | | LAB | | | | [address], | | | | | | [place] [address] | | | | + + + + + + | Absolute | 3.37Comment: Testing | 1.90 - 7.40 | EXTERNAL | | | Segmented | performed at [facility], [address] | K/uL | LAB | | | Neutrophils | [address], | | | | | | [place] [address] | | | | + + + + + + | Absolute | 0.32 (L)Comment: Testing | 1.00 - 3.90 | EXTERNAL | | | Lymphocytes | performed at [facility], [address] | K/uL | LAB | | | | [address], | | | | | | [place] [address] | | | | + + + + + + | Absolute | 0.33Comment: Testing | 0.00 - 0.80 | EXTERNAL | | | Monocytes | performed at [facility], [address] | K/uL | LAB | | | | [address], | | | | | | [place] [address] | | | | + + + + + + | Absolute | 0.26Comment: Testing | 0.00 - 0.50 | EXTERNAL | | | Eosinophils | performed at [facility], [address] | K/uL | LAB | | | | [address], | | | | | | [place] [address] | | | | + + + + + + | Absolute | 0.03Comment: Testing | 0.00 - 0.10 | EXTERNAL | | | Basophils | performed at [facility], [address] | K/uL | LAB | | | | [address], | | | | | | [place] [address] | | | | + + + [...] EXTERNAL | | | | performed at [facility], [address] | | LAB | | | | [address], | | | | | | [place] [address] | | | | + + + [...] EXTERNAL | | | | performed at [facility], [address] | | LAB | | | | [address], | | | | | | [place] [address] | | | | + + + [...] | | | | [place] [address] | | | | + + + + + + | K | 4.2Comment: Testing | 3.5 - 4.9 | EXTERNAL | | | | performed at [facility], [address] | mmol/L | LAB | | | | [address], | | | | | | [place] [address] | | | | + + + + + + | Cl | 104Comment: Testing | 99 - 109 mmol/L | EXTERNAL | | | | performed at [facility], [address] | | LAB | | | | [address], | | | | | | [place] [address] | | | | + + + + + + | CO2 | 25Comment: Testing | 23 - 32 mmol/L | EXTERNAL | | | | performed at [facility], [address] | | LAB | | | | [address], | | | | | | [place] [address] | | | | + + + + + + | Anion Gap | 6Comment: Testing | 5 - 20 mmol/L | EXTERNAL | | | | performed at [facility], [address] | | LAB | | | | [address], | | | | | | [place] [address] | | | | + + + + + + | Glucose, | 101 (H)Comment: Testing | 65 - 99 mg/dL | EXTERNAL | | | Fasting | performed at [facility], [address] | | LAB | | | | [address], | | | | | | [place] [address] | | | | + + + + + + | BUN | 5 (L)Comment: Testing | 8 - 25 mg/dL | EXTERNAL | | | | performed at [facility], [address] | | LAB | | | | [address], | | | | | | [place] [address] | | | | + + + + + + | Creatinine | 0.59 (L)Comment: Testing | 0.70 - 1.30 | EXTERNAL | | | | performed at [facility], [address] | mg/dL | LAB | | | | [address], | | | | | | [place] [address] | | | | + + + + + + | BUN/Creatin | 8Comment: Testing | | EXTERNAL | | | ine Ratio | performed at [facility], [address] | | LAB | | | | [address], | | | | | | [place] [address] | | | | + + + + + + | Calcium | 8.2 (L)Comment: Testing | 8.5 - 10.5 | EXTERNAL | | | | performed at [facility], [address] | mg/dL | LAB | | | | [address], | | | | | | [place] [address] | | | | + + + [...] | | | | | | [facility], | | | | | | [place] [address] | | | | + + + [...] | [id number] As part of the [employer] Developer Program, this case was | | | reviewed by another member of [facility]. (CIELOK) GROSS | | | DESCRIPTION: [...] cm in greatest | | | dimension. Humidifier Maintenance Worker sections are submitted in 11 cassettes. | [...] interpretation and technical preparation was performed by [facility] [employer] | | | [address], | | | [place] [address] (Landing Man: Rahul Adamson M.D.; CLIA#: | | | [id number]). Diagnostician: Paxton Velazquez MD Pathologist | | [...] EXTERNAL | | | | performed at [facility];[address] | | LAB | | | | [address];[place], [place] | | | | | | [address] | | | | + + + [...] | | | | | | ACUTE [facility] Testing | | | | | | performed at [facility];[address] | | | | | | [address];[place], [place] | | | | | | [address] | | | | + + + [...] LAB | | | | performed at [facility];[address] | | | | | | [address];[place], [place] | | | | | | [address] | | | | + + + [...] | | | Excursion: 2.11 cm E-F Osborne: 0.10 m/s EPSS: 0.32 cm AR | | | Dec Osborne: 1.57 m/s2 AR Dec Time: 2098.37 ms [...] | | mmHg TR Vmax: 2.28 m/s Licensed Embalmer Supervisor: PRERNA Authenticated by: Fifi | | [...] (A-L): 27.46 ml/m2LAAs A2C: | | 15.68 [id number] A-L A2C: 42.11 mlLALs A2C: 4.95 cmLAAs A4C: 18.20 [id number] A-L | | A4C: 45.19 mlLALs A4C: 6.22 cmAo Diam: 2.69 cmAV Cusp: 1.32 cmLA Diam: 4.21 | | cmLA/Ao: 1.56%FS: 46.57 %EDV(Teich): 103.90 mlEF(Teich): 77.93 %ESV(Teich): | | 22.92 mlIVSd: 1.00 cmIVSs: 1.65 cmLVIDd: 4.73 cmLVIDs: 2.52 cmLVPWd: 1.03 | | cmLVPWs: 1.74 cmSV(Teich): 80.97 mlD-E Excursion: 2.11 cmE-F Osborne: 0.10 | | m/sEPSS: 0.32 cmAR Dec Osborne: 1.57 m/s2AR Dec Time: 2097. msAR maxP.59 | | mmHgAR PHT: 608.52 msAR Vmax: 3.18 m/sHR: 111.10 BPMAV maxP.52 mmHgAV | | meanP.76 mmHgAV Vmax: 1.06 m/Svetlana Vmean: 0.79 m/Svetlana VTI: 17.97 cmAVA Vmax: | | 2.02 cm2AVA (VTI): 1.81 on2TLLK (Vmax): 0.00 cm2/m2AVAI (VTI): 0.00 cm2/m2LVCI | | Dopp: 2.34 l/ehex7RDEG Dopp: 4.16 l/minHR: 127.41 BPMLVOT maxP.53 mmHgLVOT | | meanP.15 mmHgLVSI Dopp: 18.38 ml/m2LVSV Dopp: 32.72 mlLVOT Vmax: 0.79 | | m/sLVOT Vmean: 0.50 m/sLVOT VTI: 12.09 cmMV E Shade: 0.90 m/sMV PHT: 44.29 msMVA | | By PHT: 4.96 cm2MV maxP.74 mmHgMV meanP.40 mmHgMV Vmax: 0.82 m/sMV | | Vmean: 0.55 m/sMV VTI: 12.57 cmMVA (VTI): 2.60 ak5Flyyaa e': 0.09 m/sSeptal | | E/e': 9.16Lateral e': 0.12 m/sLateral E/e': 7.15P Vein D: 0.34 m/sP Vein S/D | | Ratio: 0.57P Vein S: 0.19 m/sHR: 123.85 BPMPV maxP.14 mmHgPV meanP.14 | | mmHgPV Vmax: 0.73 m/sPV Vmean: 0.50 m/sPV VTI: 11.59 cmRAP: 10 mmHgRVSP: 30.95 | | mmHgTR maxP.95 mmHgTR Vmax: 2.28 m/s Licensed Embalmer Supervisor: Ronaldted by: Fifi | | Maddy SANTOSepcox south Date/Time: 01-05-2015 16:14:35 IMPRESSION: 1. Overall left [...] | |D-E Excursion: 2.11 cm | |E-F Osborne: 0.10 m/s | |EPSS: 0.32 cm | |AR Dec Osborne: 1.57 m/s2 | |AR Dec Time: 2098.37 [...] |TR Vmax: 2.28 m/s | | | |Licensed Embalmer Supervisor: PRERNA | |Authenticated by: Fifi Castañeda [...] EXTERNAL | | | | performed at [facility], [address] | | LAB | | | | [address], | | | | | | [place] [address] | | | | + + + + + + | T4 Total, | 6.8Comment: Testing | 4.7 - 11.3 | EXTERNAL | | | External | performed at [facility], [address] | ug/dL | LAB | | | | [address], | | | | | | [place] [address] | | | | + + + + + + | Free | 2.5Comment: Testing | 1.1 - 4.6 | EXTERNAL | | | Thyroxine | performed at [facility], [address] | | LAB | | | Index, | [address], | | | | | External | [place] [address] | | | | + + + + + + | TSI | 2.53Comment: Testing | 0.45 - 5.10 | EXTERNAL | | | | performed at [facility], [address] | uIU/mL | LAB | | | | [address], | | | | | | [place] [address] | | | | + + + [...] EXTERNAL | | | | performed at [facility];[address] | | LAB | | | | [address];[place], [place] | | | | | | [address] | | | | + + + [...] | | | | | | ACUTE [facility] Testing | | | | | | performed at [facility];[address] | | | | | | [address];[place] | | | | | | [address] | | | | + + + [...] EXTERNAL | | | | performed at [facility];[address] | | LAB | | | | [address];[place] | | | | | | [address] | | | | + + + [...] + + | Hemoglobin | 5.0Comment: The [place]ian | 4.0 - 6.0 % | EXTERNAL [...] | | | | | performed at [facility], [address] | | | | | | [address], | | | | | | [place] [address] | | | | + + + [...] | | | | | performed at [facility], [address] | | | | | | [facility], | | | | | | [place] [address] | | | | + + + [...] EXTERNAL | | | | performed at [facility];[address] | | LAB | | | | [address];[place], [place] | | | | | | [address] | | | | + + + [...] EXTERNAL | | | | performed at [facility], [address] | K/uL | LAB | | | | [address], | | | | | | [place] [address] | | | | + + + + + + | RED CELL | 3.33 (L)Comment: Testing | 4.20 - 5.70 | EXTERNAL | | | COUNT | performed at [facility], [address] | M/uL | LAB | | | | [address], | | | | | | [place] [address] | | | | + + + + + + | Hgb | 11.5 (L)Comment: Testing | 13.2 - 17.0 | EXTERNAL | | | | performed at [facility], [address] | g/dL | LAB | | | | [address], | | | | | | [place] [address] | | | | + + + + + + | Hematocrit, | 33.7 (L)Comment: Testing | 39.0 - 50.0 % | EXTERNAL | | | POC | performed at [facility], [address] | | LAB | | | | [address], | | | | | | [place] [address] | | | | + + + + + + | MCV | 101.0 (H)Comment: | 80.0 - 100.0 fl | EXTERNAL | | | | Testing performed at | | LAB | | | | [facility], [address] [facility] | | | | | | [place] | | | | | | [address] | | | | + + + + + + | MCH | 34.6 (H)Comment: Testing | 27.0 - 34.0 pg | EXTERNAL | | | | performed at [facility], [address] | | LAB | | | | [address], | | | | | | [place] [address] | | | | + + + + + + | MCHC | 34.3Comment: Testing | 32.0 - 35.5 | EXTERNAL | | | | performed at [facility], [address] | g/dL | LAB | | | | [address], | | | | | | [place] [address] | | | | + + + + + + | RDW-CV | 42.4Comment: Testing | 37 - 53 fl | EXTERNAL | | | | performed at [facility], [address] | | LAB | | | | [address], | | | | | | [place] [address] | | | | + + + + + + | Platelet | 155Comment: Testing | 150 - 400 K/uL | EXTERNAL | | | Count | performed at [facility], [address] | | LAB | | | Plasma | [address], | | | | | | [place] [address] | | | | + + + + + + | MPV | 9.1Comment: Testing | fl | EXTERNAL | | | | performed at [facility], [address] | | LAB | | | | [address], | | | | | | [place] [address] | | | | + + + + + + | Differentia | AUTOMATEDComment: | | EXTERNAL | | | l Type | Testing performed at | | LAB | | | | [facility], [address] | | | | | | [place] | | | | | | [address] | | | | + + + + + + | % Segmented | 83.91Comment: Testing | % | EXTERNAL | | | | performed at [facility], [address] | | LAB | | | Neutrophils | [address], | | | | | | [place] [address] | | | | + + + [...] | | | | [place] [address] | | | | + + + + + + | % | 2.36Comment: Testing | % | EXTERNAL | | | Eosinophils | performed at [facility], [address] | | LAB | | | | [address], | | | | | | [place] [address] | | | | + + + + + + | % Basophils | 0.80Comment: Testing | % | EXTERNAL | | | | performed at [facility], [address] | | LAB | | | | [address], | | | | | | [place] [address] | | | | + + + + + + | Absolute | 4.32Comment: Testing | 1.90 - 7.40 | EXTERNAL | | | Segmented | performed at [facility], [address] | K/uL | LAB | | | Neutrophils | [address], | | | | | | [place] [address] | | | | + + + + + + | Absolute | 0.32 (L)Comment: Testing | 1.00 - 3.90 | EXTERNAL | | | Lymphocytes | performed at [facility], [address] | K/uL | LAB | | | | [address], | | | | | | [place] [address] | | | | + + + + + + | Absolute | 0.35Comment: Testing | 0.00 - 0.80 | EXTERNAL | | | Monocytes | performed at [facility], [address] | K/uL | LAB | | | | [address], | | | | | | [place] [address] | | | | + + + + + + | Absolute | 0.12Comment: Testing | 0.00 - 0.50 | EXTERNAL | | | Eosinophils | performed at [facility], [address] | K/uL | LAB | | | | [address], | | | | | | [place] [address] | | | | + + + + + + | Absolute | 0.04Comment: Testing | 0.00 - 0.10 | EXTERNAL | | | Basophils | performed at [facility], [address] | K/uL | LAB | | | | [address], | | | | | | [place] [address] | | | | + + + [...] EXTERNAL | | | | performed at [facility], [address] | | LAB | | | | [address], | | | | | | [place] [address] | | | | + + + [...] EXTERNAL | | | | performed at [facility], [address] | | LAB | | | | [address], | | | | | | [place] [address] | | | | + + + [...] | | | | [place] [address] | | | | + + + + + + | K | 3.7Comment: Testing | 3.5 - 4.9 | EXTERNAL | | | | performed at [facility], [address] | mmol/L | LAB | | | | [address], | | | | | | [place] [address] | | | | + + + + + + | Cl | 104Comment: Testing | 99 - 109 mmol/L | EXTERNAL | | | | performed at [facility], [address] | | LAB | | | | [address], | | | | | | [place] [address] | | | | + + + + + + | CO2 | 23Comment: Testing | 23 - 32 mmol/L | EXTERNAL | | | | performed at [facility], [address] | | LAB | | | | [address], | | | | | | [place] [address] | | | | + + + + + + | Anion Gap | 9Comment: Testing | 5 - 20 mmol/L | EXTERNAL | | | | performed at [facility], [address] | | LAB | | | | [address], | | | | | | [place] [address] | | | | + + + [...] | | | | [place] [address] | | | | + + + + + + | Creatinine | 0.51 (L)Comment: Testing | 0.70 - 1.30 | EXTERNAL | | | | performed at [facility], [address] | mg/dL | LAB | | | | [address], | | | | | | [place] [address] | | | | + + + + + + | BUN/Creatin | 12Comment: Testing | | EXTERNAL | | | ine Ratio | performed at [facility], [address] | | LAB | | | | [address], | | | | | | [place] [address] | | | | + + + + + + | Calcium | 8.3 (L)Comment: Testing | 8.5 - 10.5 | EXTERNAL | | | | performed at [facility], [address] | mg/dL | LAB | | | | [address], | | | | | | [place] [address] | | | | + + + [...] [address], | | | | | | [place] [address] | | | | + + + [...] EXTERNAL | | | | performed at [facility], [address] | K/uL | LAB | | | | [address], | | | | | | [place] [address] | | | | + + + + + + | RED CELL | 2.99 (L)Comment: Testing | 4.20 - 5.70 | EXTERNAL | | | COUNT | performed at [facility], [address] | M/uL | LAB | | | | [address], | | | | | | [place] [address] | | | | + + + + + + | Hgb | 10.4 (L)Comment: Testing | 13.2 - 17.0 | EXTERNAL | | | | performed at [facility], [address] | g/dL | LAB | | | | [address], | | | | | | [place] [address] | | | | + + + + + + | Hematocrit, | 30.0 (L)Comment: Testing | 39.0 - 50.0 % | EXTERNAL | | | POC | performed at [facility], [address] | | LAB | | | | [address], | | | | | | [place] [address] | | | | + + + + + + | MCV | 100.1 (H)Comment: | 80.0 - 100.0 fl | EXTERNAL | | | | Testing performed at | | LAB | | | | [facility], [address] | | | | | | [place] | | | | | | [address] | | | | + + + + + + | MCH | 34.7 (H)Comment: Testing | 27.0 - 34.0 pg | EXTERNAL | | | | performed at [facility], [address] | | LAB | | | | [address], | | | | | | [place] [address] | | | | + + + + + + | MCHC | 34.6Comment: Testing | 32.0 - 35.5 | EXTERNAL | | | | performed at [facility], [address] | g/dL | LAB | | | | [address], | | | | | | [place] [address] | | | | + + + + + + | RDW-CV | 42.0Comment: Testing | 37 - 53 fl | EXTERNAL | | | | performed at [facility], [address] | | LAB | | | | [address], | | | | | | [place] [address] | | | | + + + + + + | Platelet | 161Comment: Testing | 150 - 400 K/uL | EXTERNAL | | | Count | performed at [facility], [address] | | LAB | | | Plasma | [address], | | | | | | [place] [address] | | | | + + + + + + | MPV | 8.3Comment: Testing | fl | EXTERNAL | | | | performed at [facility], [address] | | LAB | | | | [address], | | | | | | [place] [address] | | | | + + + + + + | Differentia | MANUALComment: Testing | | EXTERNAL | | | l Type | performed at [facility], [address] | | LAB | | | | [address], | | | | | | [place] [address] | | | | + + + + + + | Segmented | 88Comment: Testing | % | EXTERNAL | | | Neutrophils | performed at [facility], [address] | | LAB | | | Manual | [address], | | | | | | [place] [address] | | | | + + + + + + | Lymphocytes | 6Comment: Testing | % | EXTERNAL | | | Manual | performed at [facility], [address] | | LAB | | | | [address], | | | | | | [place] [address] | | | | + + + + + + | Monocytes | 6Comment: Testing | % | EXTERNAL | | | Manual | performed at [facility], [address] | | LAB | | | [address], | | | | | | [place] [address] | | | | + + + + + + | Absolute | 5.72Comment: Testing | 1.90 - 7.40 | EXTERNAL | | | Neutrophils | performed at [facility], [address] | K/[address]L | LAB | | | | [address], | | | | | | [place] [address] | | | | + + + + + + | Absolute | 0.39 (L)Comment: Testing | 1.00 - 3.90 | EXTERNAL | | | Lymphocytes | performed at [facility], [address] | [address] | LAB | | | | [address], | | | | | | [place] [address] | | | | + + + + + + | Absolute | 0.39Comment: Testing | 0.00 - 0.80 | EXTERNAL | | | Monocytes | performed at [facility], [address] | [address] | LAB | | | | [address], | | | | | | [place] [address] | | | | + + + + + + | RBC | NORMAL RBC MORPHComment: | | EXTERNAL | | | Morphology | NORMAL PLT MORPHTesting | | LAB | | | | performed at [facility], [address] | | | | | [address], | | | | | | [place] [address] | | | | + + + [...] | | | | [place] [address] | | | | + + + [...] EXTERNAL | | | | performed at [facility], [address] | | LAB | | | | [place], | | | | | | [place] [address] | | | | + + + [...] | | | | [place] [address] | | | | + + + + + + | K | 3.8Comment: Testing | 3.5 - 4.9 | EXTERNAL | | | | performed at [facility], [address] | mmol/L | LAB | | | | [address], | | | | | | [place] [address] | | | | + + + + + + | Cl | 103Comment: Testing | 99 - 109 mmol/L | EXTERNAL | | | | performed at [facility], [address] | | LAB | | | | [address], | | | | | | [place] [address] | | | | + + + + + + | CO2 | 26Comment: Testing | 23 - 32 mmol/L | EXTERNAL | | | | performed at [facility], [address] | | LAB | | | | [address], | | | | | | [place] [address] | | | | + + + + + + | Anion Gap | 6Comment: Testing | 5 - 20 mmol/L | EXTERNAL | | | | performed at [facility], [address] | | LAB | | | | [address], | | | | | | [place] [address] | | | | + + + + + + | Glucose, | 127 (H)Comment: Testing | 65 - 99 mg/dL | EXTERNAL | | | Fasting | performed at [facility], [address] | | LAB | | | | [address], | | | | | | [place] [address] | | | | + + + + + + | BUN | 14Comment: Testing | 8 - 25 mg/dL | EXTERNAL | | | | performed at [facility], [address] | | LAB | | | | [address], | | | | | | [place] [address] | | | | + + + + + + | Creatinine | 0.67 (L)Comment: Testing | 0.70 - 1.30 | EXTERNAL | | | | performed at [facility], [address] | mg/dL | LAB | | | | [address], | | | | | | [place] [address] | | | | + + + + + + | BUN/Creatin | 21Comment: Testing | | EXTERNAL | | | ine Ratio | performed at [facility], [address] | | LAB | | | | [address], | | | | | | [place] [address] | | | | + + + + + + | Calcium | 8.1 (L)Comment: Testing | 8.5 - 10.5 | EXTERNAL | | | | performed at [facility], [address] | mg/dL | LAB | | | | [address], | | | | | | [place] [address] | | | | + + + [...] | | | | [place] [address] | | | | + + + [...]
--- OUTSIDE RECORDS SUMMARY | ~2019-02-11 | XMS | Encounter Summary ---
Demographics + + + | Address | [address] | | | [place] [address] | + + + | Home Phone | | + + + | Preferred Language | Unknown | + + + | Marital Status | Single | + + + | Rastafari Affiliation | Unknown | + + + [...] Team Providers + +------+ + | Care Referral Management Liaison Name | Role | Phone | + +------+ + | Kris Hernandez | PCP | | + +------+ + Encounter Details +--------+ + + + + | Date | Type | Department | Care Team | Description | +--------+ + + + + | 01/19/ | Orders Only | [facility] | Collin Grimm | | | 2018 | | GENERAL SURGERY [address] | B, RN | | | | | [address] | | | | | | [place], [place] | | | | | | [address] | | | | | | [phone] | | | +--------+ + + + [...] 10:57 AM PDTRx needs to faxed to [place] documented in thi s encounter Plan of [...] | | | | [place] [address] | | | | | | [phone] | | | | | | | | +--------+ + + + + | 02/21/ | Surgery | | Saleem Shore, | COLONOSCOPY | | 2018 | | | MD [address] | | | | | | [address] | | | | | | [place] [address] | | | | | | [phone] | | | | | | | | +--------+ + + + + documented as of this encounter Visit Diagnoses Not on filedocumented in this encounter"
--- OUTSIDE RECORDS SUMMARY | ~2019-02-11 | XMS | Encounter Summary ---
Demographics + + + | Address | [address] | | | [place] [address] | + + + | Home Phone [...] Team Providers + +------+ + | Care An/Sqq 89(V)15 Sonar System Journeyman Name | Role | Phone | + [...] + + | 01/18/ | Office | [facility] | Saleem Shore, | Rectal prolapse | | 2019 | Visit | GENERAL SURGERY [address] | [address] | (Primary Dx) | | | | [address] | [facility] [address] | | | | | [place], [place] | [place] [address] | | | | | [address] | [phone] | | | | | [phone] | | | +--------+---------+ + + + [...] OR REVISION; Surgeon: Saleem myrick MD; Location: [facility] MAIN OR; Service: General; Laterality: N/A; OTHER SURGICAL HISTORY 04/30/2015 FLEXIBLE SIGMOIDOSCOPY - Procedure: SIGMOIDOSCOPY - FLEXIBLE; Surgeon: Saleem Shore MD; Location: [facility] ENDOSCOPY; Service: General; Laterality: N/A; OTHER SURGICAL HISTORY 01/17/2015 FLEXIBLE BRONCHOSCOPY - Procedure: BRONCHOSCOPY - FLEXIBLE; Surgeon: Lui Lindsey MD; Location: [facility] BEDSIDE PROCEDURE; 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; Laterality: N/A; OTHER SURGICAL HISTORY 01/03/2015 ROBOTIC ASSISTED LAPAROSCOPIC COLON RESECTION - COLOANAL - Procedure: ROBOTIC ASSISTED LAP AROSCOPIC COLON RESECTION - COLOANAL; Surgeon: Saleem Shore MD; Location: [facility] MAIN O R; Service: General; Laterality: N/A; coloanal pull through OTHER SURGICAL HISTORY 01/03/2015 FLEXIBLE SIGMOIDOSCOPY - Procedure: SIGMOIDOSCOPY - FLEXIBLE; Surgeon: Saleem Shore MD; Location: [facility] MAIN OR; Service: General; Laterality: N/A; OTHER SURGICAL HISTORY 01/03/2015 SIGMOIDOSCOPY - RIGID - Procedure: SIGMOIDOSCOPY - RIGID; Surgeon: Saleem Shore MD; Location: [facility] MAIN OR; Service: General; Laterality: N/A; OTHER SURGICAL HISTORY 12/25/2014 FLEXIBLE SIGMOIDOSCOPY - Procedure: SIGMOIDOSCOPY - FLEXIBLE; Surgeon: Saleem Shore MD; Location: [facility] ENDOSCOPY; Service: General; Laterality: N/A; OTHER SURGICAL HISTORY 08/21/2014 FLEXIBLE SIGMOIDOSCOPY - Procedure: SIGMOIDOSCOPY - FLEXIBLE; Surgeon: Saleem Shore MD; Location: [facility] ENDOSCOPY; Service: General; Laterality: N/A; TOTAL HIP [...] with a full-thickness rectal pr olapse at [facility]. Discussed with him the findings and based [...] | | | | | | [facility] [address] | | | | | | [place] [address] | | | | | | [phone] | | | | | | | | +--------+ + + + + | 02/21/ | Surgery | | Saleem Shore, | COLONOSCOPY | | 2018 | | | [address] | | | | | | [address] | | | | | | [place] [address] | | | | | | [phone] | | | | | | | | +--------+ + + + + documented as of this encounter Visit Diagnoses + + | Diagnosis | + + | Rectal prolapse - Primary | + + documented in this encounter"
--- OUTSIDE RECORDS SUMMARY | ~2019-02-11 | XMS | Encounter Summary ---
Demographics + + + | Address | [address] | | | [place] [address] | + + + | Home Phone [...] Team Providers + +------+ + | Care Production Engine Repairer Name | Role | Phone | + +------+ + PCP | Unavailable | + +------+ + Encounter Details +--------+ + + + + | Date | Type | Department | Care Team | Description | +--------+ + + + + | 01/03/ | Hospital | [facility] | Saleem Shore, | Rectal cancer (HCC); | | 2014 - | Encounter | [facility] | [address] | Persistent atrial | | | | INTENSIVE CARE UNIT | [address] | fibrillation ([facility]); | | 01/25/ | | [address] | [place] [address] | Hyperlipidemia; | | 2015 | | [place], [place] | [phone] | Hyposmolality and/or | | | | [address] | | hyponatremia; Acute | | | | [phone] | | respiratory failure | | | | | | with hypoxia ([facility]) | +--------+ + + + + Social [...] at 01/25/15655 Author: Niesha Duarte MD Service: Optics Engineer Author Type: Physician Filed: 01/25/1517 Date of Service: 01/25/15655 Status: Signed Order Expediter: Niesha Duarte MD (Physician) [facility] Service: Optics Engineer Discharge Summary Jose Eaton 64 y.o. [...] Patient Summary: Pt is a 64 y/o Bahraini speaking M with past medical history significant [...] Jan 12 2015 12:18AM Referring Provider Line: [phone] ID: [id number] Xr Abdomen For Feeding Tube [...] are in expected position. 2. Unchanged consolidation/airsp isaca disease of the right lung base consistent [...] Jan 20 2015 4:36AM Referring Provider Line: [phone] ID: [id number] X-ray Chest 1 View 01/19/2015 [...] 12 2015 5:22AM Referring Pro vider Line: [phone] ID: [id number] X-ray Chest 1 View 01/12/2015 1. Right lower lobe airspace consolidation. 2. Satisfactory endotracheal and nasogastric tube placement. RADIA Electronically signed by Toribio Gallo MD on Jan 12 2015 12:19AM Referring Provider Line: [phone] ID: [id number] X-ray Chest 1 View 01/12/2015 Right lower lobe airspace consolidation. RADIA Electronically signed by Per Gallo MD on Jan 12 2015 12:01AM Referring Provider Line: [phone] ID: [id number] Ultrasound Abdomen Limited 01/16/2015 1. [...] Jan 12 2015 6:44AM Referring Provider Line: [phone] ID: [id number] Echo Cardiac Adult Complete 01/12/2015 1. Overall left ventricular systolic function is moderately impaired with, an EF between 35 - 40 %. 2. Pseudonormal LV diastolic filling pattern, consistent with elevated LA pressure and moderate dysfunction (Grade II). 3. The right ventricle is normal in size. 4. The right ventricular systolic function is impaired. 5. Moderate mitral regurgitation is present. 6. Fsnd-dz-bqmwltfi tricuspid regurgitation present. 7. There is mild [...] - FLEXIBLE; Surgeon: Saleem Shore MD; Location: [facility]; Service: General; Laterality: N/A; Total hip arthroplasty Bilateral Knee surgery Right Flexible sigmoidoscopy N/A 12/25/2014 Procedure: SIGMOIDOSCOPY - FLEXIBLE; Surgeon: Saleem Shore MD; Location: [facility]; Service: General; Laterality: N/A; Robotic assisted laparoscopic colon resection - coloanal N/A 01/03/2015 Procedure: ROBOTIC ASSISTED LAPAROSCOPIC COLON RESECTION - COLOANAL; Surgeon: Saleem chauhan MD; Location: [facility]; Service: General; Laterality: N/A; coloanal pull thr ough Flexible sigmoidoscopy N/A 01/03/2015 Procedure: SIGMOIDOSCOPY - FLEXIBLE; Surgeon: Saleem Shore MD; Location: [facility]; Service: General; Laterality: N/A; Sigmoidoscopy - rigid N/A 01/03/2015 Procedure: SIGMOIDOSCOPY - RIGID; Surgeon: Saleem Shore MD; Location: [facility] ; Service: General; Laterality: N/A; Flexible bronchoscopy N/A 01/17/2015 Procedure: BRONCHOSCOPY - FLEXIBLE; Surgeon: Lui Lindsey MD; Location: [facility]; Service: Optics Engineer; Laterality: N/A; DISCHARGE MEDS Medication List [...] out of bed to chair. Transfer to [facility]. Condition on Discharge: stable Code Status: [...] 01/25/15925 Date of Service: 01/25/15914 Status: Signed Order Expediter: Dolores Coleman RN (Registered Nurse) Report given to TIMOTEO Bowman at [facility] in [place]. Family and patient aware of transfer. Dicus [...] at 01/25/15804 Author: Niesha Duarte MD Service: Optics Engineer Author Type: Physician Filed: 01/25/15817 Date of Service: 01/25/15804 Status: Addendum Order Expediter: Niesha Duarte MD (Physician) Related Notes: Original Note by Niesha Duarte MD (Physician) filed at 01/25/15 08 [facility] Service: Optics Engineer Progress Note Jose Eaton 64 y.o. Hospital Day: LOS: 22 days Post-Op Day: 14 Days Post-Op Consulting Physicians Treatment Team: Consulting Physician: Amy Simons MD Consulting Physician: Mario Crawford MD Admitting Provider: Saleem Shore MD SUBJECTIVE Patient Summary: Pt is a 64 y/o Bahraini speaking M with past medical history significant [...] Notes by Amy Simons MD at 01/25/15 0447 Author: Amy Simons MD Service: Infectious Disease Author Type: Physician Filed: 01/26/15 1541 Date of Service: 01/25/15 838 Status: Signed Order Expediter: Amy Simons MD (Physician) [facility] Service: Infectious Disease Progress Note Hospital Day: [...] tin, nystatin, [DISCONTINUED] ondansetron OR ondansetron, pancrelipase (Jsr-Sndz-Dbwu) 1 0,000 units, petrolatum, polyethylene glycol, potassium [...] 01/25/1532 Date of Service: 01/25/15509 Status: Signed Order Expediter: Shanon Pak RN (Registered Nurse) During 4 AM business law professor noticed that pt's small bore NG tube [...] 01/24/151805 Date of Service: 01/24/151804 Status: Signed Order Expediter: Saleem Shore MD (Physician) [facility] [...] tin, nystatin, [DISCONTINUED] ondansetron OR ondansetron, pancrelipase (Jea-Jaec-Hibf) 1 0,000 units, petrolatum, polyethylene glycol, potassium [...] 01/24/151621 Date of Service: 01/24/151621 Status: Signed Order Expediter: Anna Suresh RD, CD (Registered Dietitian) 01/24/15 9155 Subjective Timepoint Follow up (high risk) Pt c/o Pt remains on room air. Has been c/o abdominal pain but improving. Small bore NG tub e in place. Plan is for pt to go to fluoroscopy this afternoon to advance the tip of the tub e into the jejunum. Fluid / Beverage Intake Oral Fluids Amount NPO Food Intake Amount of Food NPO per FLEXIBLE BABYSITTER. Enteral Nutrition Intake Access NJ tube placement [...] of the pancreas. Pt remains NPO per FLEXIBLE BABYSITTER recommendations. Anthropometrics Weight change Wt is now [...] up date 01/27/[address], CD, [facility] 01/24/2015 onver alex [place], Provider Unknown - 01/24/2015 1:38 PM PDT Therapy Progress Note by Fran Hackett PT at 01/24/15 8933 Author: Fran Hackett PT Service: (none) Author Type: Physical Therapist Filed: 01/24/15 2807 Date of Service: 01/24/151337 Status: Signed Order Expediter: Fran Hackett PT (Physical Therapist) 01/24/15 1338 PT Last Visit PT Received On 01/24/15 Reason for Treatment Deconditioning Requires PT Follow Up Yes Follow up PT Only? Yes Assistance Required 2 person Fusing Machine Tender Needed Yes Precautions Other Precautions Fall Risk [...] initiate some gait training today with the [facility]). Notes discomfort at times around the [...] Date of Service: 01/24/15 1310 Status: Signed Order Expediter: Choco Hernandez RPH (Pharmacist) >> CHOCO HERNANDEZ 01/24/2015 13:10 TPN day 13, lytes WNL. K is up to 4.8-will decrease K in tpn by 20meq/L. Blood sugars goo d. No other changes. onver alex Transaction, Provider Unknown - 01/24/2015 11:27 AM PDT Therapy Progress Note by Grazyna Buckner MS CCC-FLEXIBLE BABYSITTER at 01/24/151126 Author: Grazyna Buckner MS CCC-FLEXIBLE BABYSITTER Service: (none) Author Type: Speech and Language Patho logist Filed: 01/24/15 1128 Date of Service: 01/24/151126 Status: Signed Order Expediter: Grazyna Buckner MS CCC-FLEXIBLE BABYSITTER (Speech and Language Pathologist) 01/24/15 1100 Swallowing [...] ST informed pt to be transfered to [facility] tomorrow. Staff Notified RN Plan of Care Treatment Plan Continue with current plan Follow up treatments Assessment for upgrade AVS Documentation No FLEXIBLE BABYSITTER Ready for Discharge Not Applicable onver alex Transaction, Provider Unknown - 01/24/2015 9:44 AM PDT Case Management by BRIA Lima at 01/24/15943 Author: BRIA Lima Service: (none) Author Type: Powerbuilder Filed: 01/24/15 1252 Date of Service: 01/24/15943 Status: Addendum Order Expediter: BRIA Lima (Powerbuilder) Related Notes: Original Note by BRIA Lima (Powerbuilder) filed at 01/24/15946 Plan is for pt to transfer to [facility] tomorrow. [facility] as she is arranging transportation. Suad Sánchez, RN,CM will be covering the ICU tomorrow. [phone]. Addendum: Faxed updated progress notes, MAR, TPN orders to [facility] per their request. Matilde Segundo is planning for a 10:00 forklift picker tomorrow. She will call later to confirm the time. iesha Mcgee MD - 01/24/2015 8:13 AM PDTFormatting of this note might be different from t danish original. Progress Notes by Niesha Duarte MD at 01/24/15812 Author: Niesha Duarte MD Service: Optics Engineer Author Type: Physician Filed: 01/24/15916 Date of Service: 01/24/15812 Status: Addendum Order Expediter: Niesha Duarte MD (Physician) Related Notes: Original Note by Niesha Duarte MD (Physician) filed at 01/24/15913 [facility] Service: Optics Engineer Progress Note Jose Eaton 64 y.o. Hospital Day: LOS: 21 days Post-Op Day: 14 Days Post-Op Consulting Physicians Treatment Team: Consulting Physician: Amy Simons MD Consulting Physician: Mario Crawford MD Admitting Provider: Saleem Shore MD SUBJECTIVE Patient Summary: Pt is a 64 y/o Bahraini speaking M with past medical history significant [...] NA Disposition: continue ICU care. Transfer to [facility]. Code Status: Full Code Niesha Duarte MD [...] 1830 Date of Service: 01/24/15707 Status: Signed Order Expediter: Amy Simons MD (Physician) [facility] Service: Infectious Disease Progress Note Hospital Day: [...] 01/23/151843 Date of Service: 01/23/151842 Status: Signed Order Expediter: Saleem Shore MD (Physician) [facility] [...] Author: BRIA Lima Service: (none) Author Type: Powerbuilder Filed: 01/23/15 1605 Date of Service: 01/23/15 160 Status: Signed Order Expediter: BRIA Lima (Powerbuilder) angela Guadalupe for [facility] met with pt's brother and friend. Plan will be to transfer p t to [facility] on Tuesday. Matilde will arrange the transportation to [facility] tomorrow. I will place paperwork on pt's chart. onver alex Transaction, Provider Unknown - 01/23/2015 1:03 PM PDT Therapy Progress Note by Kitty Peng MA CCC-FLEXIBLE BABYSITTER at 01/23/15 1303 Author: Kitty Peng MA CCC-FLEXIBLE BABYSITTER Service: (none) Author Type: Speech and Language Patholo gist Filed: 01/23/15 1303 Date of Service: 01/23/15 1303 Status: Signed Order Expediter: Kitty Peng MA CCC-FLEXIBLE BABYSITTER (Speech and Language Pathologist) 01/23/15 1238 Swallowing [...] elevation upon palpation;Thr oat clearing - immediate Kalaheo Presentation Spoon Oral Increased Anterior to Posterior [...] Assessment for upgrade;Patient/Family education;Swallow strategies Dysphagia Goals School Lunch Monitor Goals Advanced diet Pt will advanced diet [...] Date of Service: 01/23/15 1234 Status: Signed Order Expediter: Anna Suresh RD, CD (Registered Dietitian) 01/23/15 [...] Food Intake Amount of Food NPO per FLEXIBLE BABYSITTER. Parenteral Nutrition Intake Access PICC Rate/Solution TPN [...] Estimated Energy Needs Total Energy Estimated Needs 6541-5525 kcal/day Method for Estimating Needs 30-35 kcal/kg [...] 01/23/2015 11:19 AM PDT Progress Notes by Chcoo Hernandez RPH at 01/23/151118 Author: Choco Hernandez RPH Service: Pharmacy Author Type: Pharmacist Filed: 01/23/151118 Date of Service: 01/23/151118 Status: Signed Order Expediter: Choco Hernandez RPH (Pharmacist) TPN day 12, [...] Author: BRIA Lima Service: (none) Author Type: Powerbuilder Filed: 01/23/15918 Date of Service: 01/23/15917 Status: Signed Order Expediter: BRIA Lima (Powerbuilder) Attended morning rounds. Pt needs MRI before decision can [facility] made [facility] Pt is on TPN. Dobhoff [...] 01/23/15920 Date of Service: 01/23/15839 Status: Signed Order Expediter: Josafat Streeter PT (Physical Therapist) 01/23/15839 PT [...] 0756 Date of Service: 01/23/15733 Status: Signed Order Expediter: Rahul Valles DO (Physician) [facility] Service: Infectious Disease Progress Note Hospital Day: [...] ed any pain or discomfort through the watch adjuster. When asked specifically what is bothering him [...] Beverly at 01/23/15710 Author: JONATHON Beverly Service: Optics Engineer Author Type: Nurse Practitioner Filed: 01/23/15 1312 Date of Service: 01/23/15710 Status: Signed Order Expediter: JONATHON Beverly (Nurse Practitioner) [facility] Service: Optics Engineer Progress Note Jose Eaton 64 y.o. Hospital Day: LOS: 20 days Post-Op Day: 14 Days Post-Op Consulting Physicians Treatment Team: Consulting Physician: Amy Simons MD Consulting Physician: Mario Crawford MD Admitting Provider: Saleem Shore MD SUBJECTIVE Patient Summary: Pt is a 64 y/o Bahraini speaking M with past medical history significant [...] of all other procedures. Ebony Lackey MS CCC-FLEXIBLE BABYSITTER - 01/22/2015 11:31 AM PDTFormatting of this note might be different from the orig inal. Therapy Progress Note by Ebony Davenport MS CCC-FLEXIBLE BABYSITTER at 01/22/15 1131 Author: Ebony Davenport MS CCC-FLEXIBLE BABYSITTER Service: (none) Author Type: Speech and Language Pathol ogist Filed: 01/22/15 1132 Date of Service: 01/22/15 113 Status: Signed Order Expediter: Ebony Davenport MS CCC-FLEXIBLE BABYSITTER (Speech and Language Pathologist) 01/22/15 1030 Swallowing [...] laryngeal elevation upon palpation;Cou gh - delayed Kalaheo Presentation Cup Oral Increased Anterior to Posterior [...] and didn't want to eat at all. FLEXIBLE BABYSITTER ed re:importance of safe swallowing as pt has p alemmonia from drinking water against MD's order. Pt then stated agreement, however would not take more then 1-3 bites/sips and aspiration risk is high at this time. FLEXIBLE BABYSITTER to con't to re- assess as pt is appropriate. Staff Notified RN Plan of Care Treatment Plan ST to follow;Dysphagia treatment;Daily 4 to 6 times a week Follow up treatments Assessment for upgrade Dysphagia Goals School Lunch Monitor Goals Advanced diet Pt will advanced diet in 3 days;New/revised goal Short Term Goals Tolerate diet upgrade trials Pt will tolerate diet upgrade trials With 1:1 supervision;New/revised goal EBONY DAVENPORT MS CCC-FLEXIBLE BABYSITTER 01/22/2015 onversion Hernandez saction, Provider Unknown - 01/22/2015 11:14 AM PDTFormatting of this note might be differen t from the original. Progress Notes by Choco Hernandez RPH at 01/22/151113 Author: Choco Hernandez RPH Service: Pharmacy Author Type: Pharmacist Filed: 01/22/151113 Date of Service: 01/22/151113 Status: Signed Order Expediter: Choco Hernandez RPH (Pharmacist) TPN day 11, lytes WNL, blood sugars in the 120's to 150's- will increase insulin in TPN to 60 units/24hr bag, no other changes onver alex Transaction, Provider Unknown - 01/22/2015 9:35 AM PDT Case Management by BRIA Lima at 01/22/15 0975 Author: BRIA Lima Service: (none) Author Type: Powerbuilder Filed: 01/22/15 1548 Date of Service: 01/22/1518 Status: Addendum Order Expediter: BRIA Lima (Powerbuilder) Related Notes: Original Note by BRIA Lima (Powerbuilder) filed at 01/22/15 0904 Attended morning rounds. Pt was extubated yesterday. On room air. On TPN and lipids. Pt t o have swallow eval today and start to mobilize. Received t.c from Thania at [facility] yesterday. Pt has been accepted for admit when med ically stable if he does not go to an LTAC first. Dr. Merrill plans to speak with surgeon. If no further concerns, plan will be to transfer pt to [facility] on Tuesday. Faxed updated clinical to angela Nguyen who is coverin g for Matilde Segundo. ([phone], fax: [phone]). Addendum:Mirela Segundo from [facility] will be here tomorrow. Per Asya, another liason with [facility], pt will likely be able to transfer on Tuesday. Will need to get official auth for transfer tomorrow. Stalin St MD - 01/22/2015 7:45 AM PDTFormatting of this note might be differ ent from the original. Progress Notes by Stalin Finney MD at 01/22/15 1522 Author: Stalin Finney MD Service: Optics Engineer Author Type: Physician Filed: 01/22/15 1425 Date of Service: 01/22/1536 Status: Signed Order Expediter: Stalin Finney MD (Physician) [facility] Service: Optics Engineer Progress Note Jose Eaton 64 y.o. Hospital Day: LOS: 19 days Post-Op Day: 14 Days Post-Op Consulting Physicians Treatment Team: Consulting Physician: Amy Simons MD Consulting Physician: Mario Crawford MD Admitting Provider: Saleem Shore MD SUBJECTIVE Patient Summary: Pt is a 64 y/o Bahraini speaking M with past medical history significant [...] Intake/Output Summary (Last 24 hours) at 01/22/15 0724 Last data filed at 01/22/15 0631 Gross [...] Jan 12 2015 6:44AM Referring Provider Line: [phone] ID: [id number] Echo Cardiac Adult Complete 01/12/2015 1. Overall left ventricular systolic function is moderately impaired with, an EF between 35 - 40 %. 2. Pseudonormal LV diastolic filling pattern, consistent with elevated LA pressure and moderate dysfunction (Grade II). 3. The right ventricle is normal in size. 4. The right ventricular systolic function is impaired. 5. Moderate mitral regurgitation is present. 6. Ltvt-gy-rdcoqicm tricuspid regurgitation present. 7. There is mild [...] 01/22/15727 Date of Service: 01/22/15707 Status: Signed Order Expediter: Rahul Valles DO (Physician) [facility] Service: Infectious Disease Progress Note Hospital Day: [...] 01/21/151838 Date of Service: 01/21/151835 Status: Signed Order Expediter: Saleem Shore MD (Physician) [facility] [...] 1053 Date of Service: 01/21/151051 Status: Signed Order Expediter: Choco Hernandez RPH (Pharmacist) TPN day 10, lytes WNL. Blood sugars 140's to 160's- will increase insulin in TPN to 55 uni ts/24hr bag. No other changes. onver alex Transaction, Provider Unknown - 01/21/2015 7:52 AM PDT Progress Notes by JESSICA Colin at 01/21/15751 Author: JESSICA Colin Service: Optics Engineer Author Type: Medical Student Filed: 01/21/151701 Date of Service: 01/21/15751 Status: Attested Order Expediter: JESSICA Colin (Medical Student) Cosigner: Stalin Finney [...] Finney MD Pulmonary and Critical Care Medicine [facility] 01/21/15 6:48PM *Please bill 40 minutes of critical care time spent evaluating the patient, reviewing the d jose guadalupe and formulating a plan exclusive of all other procedures. [facility] Service: Optics Engineer Progress Note Jose Uma 64 y.o. Hospital Day: LOS: 18 days Post-Op Day: 4 Days Post-Op Consulting Physicians Treatment Team: Consulting Physician: Amy Simons MD Consulting Physician: Mario Crawford MD Admitting Provider: Saleem Shore MD SUBJECTIVE Patient Summary: Pt is a 64 y/o Bahraini speaking M with past medical history significant [...] 01/21/15713 Date of Service: 01/21/15702 Status: Signed Order Expediter: Rahul Valles DO (Physician) [facility] Service: Infectious Disease Progress Note Hospital Day: [...] Note by Abilio Alba RN at 01/20/15 5804 Author: Abilio Alba RN Service: (none) Author Type: Registered Nurse Filed: 01/20/15 721 Date of Service: 01/20/151758 Status: Signed Order Expediter: Abilio Alba RN (Registered Nurse) Sedation holiday [...] 01/20/151644 Date of Service: 01/20/151641 Status: Signed Order Expediter: Abilio Alba RN (Registered Nurse) Mediport would [...] Author: BRIA Lima Service: (none) Author Type: Powerbuilder Filed: 01/20/15 154 Date of Service: 01/20/151538 Status: Signed Order Expediter: BRIA Lima (Powerbuilder) Met with pt's brother and some friends via watch adjuster. Discussed possibility of pt needin g and LTAC and the benefits of going to one. Also discussed SNF if LTAC is not needed. Bro ther and friend indicate that they want what is best for pt. LTAC options were discussed and they indicated that they are agreeable to [facility] in [place]. Brother asked if jayeluigi dixon make a referral to [facility] as opposed to [facility] as [...] (none) Author Type: Physical Therapist Filed: 01/20/15 8793 Date of Service: 01/20/151421 Status: Signed Order Expediter: Kelli Belle PT (Physical Therapist) 01/20/151421 PT Last Visit PT Received On 01/20/15 Reason for Treatment Deconditioning Requires PT Follow Up Awaiting tx order Follow up PT Only? Yes PT Eval/Reassessment Date 01/20/15 Assistance Required 2 person Home Environment Type of Home Home one story Additional Comments Family provided home information. Prior Function Level of [place] Independent with functional mobility;Independent with ADLs (pt [...] with skilled therapy intervention;Limited by multiple medical [place] Safety Devices Safety Devices in Place (RN [...] Date of Service: 01/20/15 134 Status: Signed Order Expediter: Anna Suresh RD, CD (Registered Dietitian) 01/20/15 [...] output overnight. Skin Skin remains intact - clay molder to re-eval. Anthropometrics Weight change No new [...] 1056 Date of Service: 01/20/151055 Status: Signed Order Expediter: Choco Hernandez RPH (Pharmacist) TPN day 9, Bicard 22- will increase acetate in TPN. Other Lytes WNL. Blood sugars in 110's to 140's. Per military science teacher recs will increase Dextrose from 18% to 22%. Will increase insulin from 30 units to 45 units/24hr bag. No other changes. Shara Benavidez MS CCC-FLEXIBLE BABYSITTER - 01/20/2015 10:05 AM PDTFormatting of this note might be different f rom the original. Therapy Progress Note by Shara Davila MS CCC-FLEXIBLE BABYSITTER at 01/20/15 1005 Author: Shara Davila MS CCC-FLEXIBLE BABYSITTER Service: (none) Author Type: Speech and Language Pa thologist Filed: 01/20/15 1013 Date of Service: 01/20/15 1005 Status: Signed Order Expediter: Shara Davila MS CCC-FLEXIBLE BABYSITTER (Speech and Language Pathologist) 01/20/15 1005 FLEXIBLE BABYSITTER Last Visit FLEXIBLE BABYSITTER Received On 01/20/15 Requires FLEXIBLE BABYSITTER Follow Up Unavailable (Intubated- plan for extubation in the afternoon.) onversio n Transaction, Provider Unknown - 01/20/2015 9:19 AM PDTFormatting of this note might be di fferent from the original. Case Management by BRIA Lima at 01/20/15918 Author: BRIA Lima Service: (none) Author Type: Powerbuilder Filed: 01/20/15929 Date of Service: 01/20/15918 Status: Addendum Order Expediter: BRIA Lima (Powerbuilder) Related Notes: Original Note by BRIA Lima (Powerbuilder) filed at 01/20/15923 Attended morning rounds. Pt [...] by Mario Crawford MD at 01/20/15838 Author: aMrio Crawford MD Service: Cardiology Author Type: Physician Filed: 01/20/15 7484 Date of Service: 01/20/15838 Status: Signed Order Expediter: Mario Crawford MD (Physician) [facility] Service: Cardiology Progress Note Hospital Day: LOS: 17 days Post-Op Day: 3 Days Post-Op SUBJECTIVE Patient Summary: 64 y.o. male with no previous cardiac history. He was admitted to [facility] for [facility] on 01/03/15 [...] - FLEXIBLE; Surgeon: Saleem Shore MD; Location: [facility]; Service: General; Laterality: N/A; Total hip arthroplasty Bilateral Knee surgery Right Flexible sigmoidoscopy N/A 12/25/2014 Procedure: SIGMOIDOSCOPY - FLEXIBLE; Surgeon: Saleem Shore MD; Location: [facility]; Service: General; Laterality: N/A; Robotic assisted laparoscopic colon resection - coloanal N/A 01/03/2015 Procedure: ROBOTIC ASSISTED LAPAROSCOPIC COLON RESECTION - COLOANAL; Surgeon: Saleem chauhan MD; Location: [facility]; Service: General; Laterality: N/A; coloanal pull thr ough Flexible sigmoidoscopy N/A 01/03/2015 Procedure: SIGMOIDOSCOPY - FLEXIBLE; Surgeon: Saleem Shore MD; Location: [facility]; Service: General; Laterality: N/A; Sigmoidoscopy - rigid N/A 01/03/2015 Procedure: SIGMOIDOSCOPY - RIGID; Surgeon: Saleem Shore MD; Location: [facility] ; Service: General; Laterality: N/A; Flexible bronchoscopy N/A 01/17/2015 Procedure: BRONCHOSCOPY - FLEXIBLE; Surgeon: Lui Lindsey MD; Location: [facility]; Service: Optics Engineer; Laterality: N/A; Allergies Allergen Reactions Seasonal Allergies [Other-Environmental] Itching Scheduled Medications ampicillin-sulbactam 3 g Intravenous Q6H digoxin 0.25 mg Intravenous Daily fat emulsion 250 mL Intravenous Daily furosemide 40 mg Intravenous BID heparin (porcine) 5000 unit/0.5mL 5,000 Units Subcutaneous Q8H insulin aspart 0-16 Units Subcutaneous 4 times per day levofloxacin 500 mg Intravenous Q24H lidocaine buffered 1% 0.5 mL Intradermal Once ppaxuuxp-qezodrxvkk-bnxtqcbth Ophthalmic 4 times per day nystatin 5 mL Oral 4x Daily pantoprazole 40 mg Intravenous QAM AC Continuous Infusions dexmedetomidine in NS 1 mcg/kg/hr (01/20/15 0775) fentaNYL in NS 5 mcg/mL 150 mcg/hr (01/20/15 8575) norepinephrine in D5W 64 mcg/mL 4 mcg/min (01/17/15 2788) TPN ADULT 75 mL/hr at 01/19/15 1403 PRN Medications acetaminophen, albuterol, dextrose, dextrose, HYDROmorphone [...] ect that he has had an acute FL. The inferior infarct cited on his EKG [...] Progress Notes by JESSICA Colin at 01/20/15 9938 Author: JESSICA Colin Service: Optics Engineer Author Type: Medical Student Filed: 01/20/15 5669 Date of Service: 01/20/15 1432 Status: Attested Order Expediter: JESSICA Colin (Medical Student) Cosigner: Stalin Finney MD at 01/20/15 6430 Attestation signed by Stalin Finney MD at 01/20/15 2814 I have seen and examined the patient and discussed the findings and overall plan with JESSICA Salvador. I agree with the above note. *Please bill 35 minutes of critical care time spent evaluating the patient, reviewing the d jose guadalupe and formulating a plan exclusive of all other procedures. Stalin Finney MD Pulmonary and Critical Care Medicine [facility] 01/20/15 4:05PM [facility] Service: Optics Engineer Progress Note Jose Eaton 64 y.o. Hospital Day: LOS: 17 days Post-Op Day: 3 Days Post-Op Consulting Physicians Treatment Team: Consulting Physician: Amy Simons MD Consulting Physician: Mario Crawford MD Admitting Provider: Saleem Shore MD SUBJECTIVE Patient Summary: Pt is a 64 y/o Bahraini speaking M with past medical history significant [...] lidocaine buffered 1% 0.5 mL Intradermal Once okslrfij-smwnugvpnf-tdvwkmcqy Ophthalmic 4 times per day nystatin 5 mL Oral 4x Daily pantoprazole 40 mg Intravenous QAM AC CONTINUOUS INFUSIONS dexmedetomidine in NS 1 mcg/kg/hr (01/20/15 07) fentaNYL in NS 5 mcg/mL 150 mcg/hr (01/20/15 0135) norepinephrine in D5W 64 mcg/mL 4 mcg/min (01/17/15 1142) TPN ADULT 75 mL/hr at 01/19/15 8887 OBJECTIVE VITAL SIGNS Temp: [98.4 F (36.9 [...] Jan 20 2015 4:36AM Referring Provider Line: [phone] ID: [id number] Ct Chest Without Contrast 01/19/2015 [...] 01/20/15716 Date of Service: 01/20/15699 Status: Signed Order Expediter: Rahul Valles DO (Physician) [facility] Service: Infectious Disease Progress Note Hospital Day: [...] lidocaine buffered 1% 0.5 mL Intradermal Once rqmcnbdj-jxzpznuykz-ydjqskdcj Ophthalmic 4 times per day nystatin 5 mL Oral 4x Daily pantoprazole 40 mg Intravenous QAM AC Continuous Infusions dexmedetomidine in NS 1 mcg/kg/hr (01/20/15 0130) fentaNYL in NS 5 mcg/mL 150 mcg/hr (01/20/15 0415) norepinephrine in D5W 64 mcg/mL 4 mcg/min (01/17/15 3938) TPN ADULT 75 mL/hr at 01/19/15 2353 [...] Date of Service: 01/19/15 114 Status: Signed Order Expediter: Saleem Shore MD (Physician) [facility], [...] per day levofloxacin 500 mg Intravenous Q24H cuenyagq-bkpfigjoxd-atdqufuer Ophthalmic 4 times per day nystatin 5 [...] Saleem Shore MD 01/19/2015 innea Barraza, MS CCC-FLEXIBLE BABYSITTER - 01/19/2015 10:21 AM PDTFormatting of this note might be different from the o riginal. Therapy Progress Note by Linnea Barraza MA CCC-FLEXIBLE BABYSITTER at 01/19/15 1021 Author: Linnea Barraza MA CCC-FLEXIBLE BABYSITTER Service: (none) Author Type: Speech and Language Pathologist Filed: 01/19/15 1021 Date of Service: 01/19/15 1021 Status: Signed Order Expediter: Linnea Barraza MA CCC-FLEXIBLE BABYSITTER (Speech and Language Pathologist) 01/19/15 1020 FLEXIBLE BABYSITTER Last Visit FLEXIBLE BABYSITTER Received On 01/19/15 Requires FLEXIBLE BABYSITTER Follow Up On hold (pt reintubated) unanan, Stalin Allen MD - 01/19/2015 10:10 AM PDTFormatting of this note might be differen t from the original. Progress Notes by Stalin Finney MD at 01/19/15 1010 Author: Stalin Finney MD Service: Optics Engineer Author Type: Physician Filed: 01/19/15 1214 Date of Service: 01/19/15 1010 Status: Signed Order Expediter: Stalin Finney MD (Physician) [facility] Service: Optics Engineer Progress Note Jose Eaton 64 y.o. Hospital Day: LOS: 16 days Post-Op Day: 14 Days Post-Op Consulting Physicians Treatment Team: Consulting Physician: Amy Simons MD Consulting Physician: Mario Crawford MD Admitting Provider: Saleem Shore MD SUBJECTIVE Patient Summary: Pt is a 64 y/o Bahraini speaking M with past medical history significant [...] per day levofloxacin 500 mg Intravenous Q24H xfjvrktj-uequmjgmjl-paujebhnt Ophthalmic 4 times per day nystatin 5 [...] Jan 12 2015 6:44AM Referring Provider Line: [phone] ID: [id number] Echo Cardiac Adult Complete 01/12/2015 1. Overall left ventricular systolic function is moderately impaired with, an EF between 35 - 40 %. 2. Pseudonormal LV diastolic filling pattern, consistent with elevated LA pressure and moderate dysfunction (Grade II). 3. The right ventricle is normal in size. 4. The right ventricular systolic function is impaired. 5. Moderate mitral regurgitation is present. 6. Jhvn-cg-hozoqjll tricuspid regurgitation present. 7. There is mild [...] 01/19/1528 Date of Service: 01/19/15699 Status: Signed Order Expediter: Rahul Valles DO (Physician) [facility] Service: Infectious Disease Progress Note Hospital Day: [...] per day levofloxacin 500 mg Intravenous Q24H aucvrslr-vzwdqqwbxz-fxctjaqjj Ophthalmic 4 times per day nystatin 5 [...] similar results noted on previous sputum culture [facility] only grew Escherichia coli. Medical imaging: [...] 01/19/15647 Date of Service: 01/19/15647 Status: Signed Order Expediter: Basilia Ortiz RPH (Pharmacist) TPN notes day [...] Notes by Stalin Finney MD at 01/18/15 2936 Author: Stalin Finney MD Service: Optics Engineer Author Type: Physician Filed: 01/18/15 8745 Date of Service: 01/18/15 7808 Status: Signed Order Expediter: Stalin Finney MD (Physician) [facility] Service: Optics Engineer Progress Note Jose Eaton 64 y.o. Hospital Day: LOS: 15 days Post-Op Day: 14 Days Post-Op Consulting Physicians Treatment Team: Consulting Physician: Amy Simons MD Consulting Physician: Mario Crawford MD Admitting Provider: Saleem Shore MD SUBJECTIVE Patient Summary: Pt is a 64 y/o Bahraini speaking M with past medical history significant [...] per day levofloxacin 500 mg Intravenous Q24H swpajzdw-azqddiaiba-huvggfphh Ophthalmic 4 times per day nystatin 5 [...] Jan 12 2015 6:44AM Referring Provider Line: [phone] ID: [id number] Echo Cardiac Adult Complete 01/12/2015 1. Overall left ventricular systolic function is moderately impaired with, an EF between 35 - 40 %. 2. Pseudonormal LV diastolic filling pattern, consistent with elevated LA pressure and moderate dysfunction (Grade II). 3. The right ventricle is normal in size. 4. The right ventricular systolic function is impaired. 5. Moderate mitral regurgitation is present. 6. Dxub-sm-gfwcchrc tricuspid regurgitation present. 7. There is mild [...] 01/18/151214 Date of Service: 01/18/151212 Status: Signed Order Expediter: Saleem Shore MD (Physician) [facility], [...] per day levofloxacin 500 mg Intravenous Q24H glmssmgl-qstuyckxhs-amtpjoqet Ophthalmic 4 times per day nystatin 5 [...] Rehab Author Type: Physical Therapist Filed: 01/18/15 9000 Date of Service: 01/18/15821 Status: Signed Order Expediter: Nba Strong PT (Physical Therapist) 01/18/15821 PT [...] 01/18/15705 Date of Service: 01/18/15705 Status: Signed Order Expediter: Basilia Ortiz RPH (Pharmacist) TPN day 8: [...] 01/18/15716 Date of Service: 01/18/15705 Status: Signed Order Expediter: Rahul Valles DO (Physician) [facility] Service: Infectious Disease Progress Note Hospital Day: [...] 1% 5 mL Intradermal STAT - Now rhfidzjm-vxjmqmmjyo-vlnaryuxa Ophthalmic 4 times per day nystatin 5 [...] 01/17/151946 Date of Service: 01/17/151940 Status: Signed Order Expediter: Saleem Shore MD (Physician) [facility], [...] (none) Author Type: Registered Nurse Filed: 01/17/15 5164 Date of Service: 01/17/15 1800 Status: Signed Order Expediter: Jcarlos Lawson RN (Registered Nurse) Roro david special ed assistant assisted patient with reposition onversion Transacti on, Provider Unknown - 01/17/2015 5:54 PM PDTFormatting of this note might be different fro m the original. Progress Notes by Dwight Godoy at 01/17/151753 Author: Dwight Godoy Service: (none) Author Type: Filed: 01/17/151753 Date of Service: 01/17/151753 Status: Signed Order Expediter: Dwight Godoy () Attempted visit. Pt intubated and sleeping. Chaplain Sancho onver alex Transaction, Provider Unknown - 01/17/2015 3:54 PM PDT Progress Notes by Asya Chauhan RD at 01/17/151553 Author: Asya Chauhan RD Service: (none) Author Type: Registered Dietitian Filed: 01/17/151554 Date of Service: 01/17/151553 Status: Signed Order Expediter: Asya Chauhan RD (Registered Dietitian) 01/17/15 1161 Subjective Timepoint Follow up Pt c/o Pt [...] Follow up date 01/20/15 Elisa Allen MS CCC-FLEXIBLE BABYSITTER - 01/17/2015 12:15 PM PDTFormatting of this note might be different fr om the original. Therapy Progress Note by Elisa Lawson MS CCC-FLEXIBLE BABYSITTER at 01/17/15 1215 Author: Elisa Lawson MS CCC-FLEXIBLE BABYSITTER Service: (none) Author Type: Speech Therapist Filed: 01/17/15 5688 Date of Service: 01/17/151214 Status: Signed Order Expediter: Elisa Lawson MS CCC-FLEXIBLE BABYSITTER (Speech Therapist) 01/17/15 1215 Swallowing Assessment Eval [...] monitoring;Patient/Family education; Assessment for upgrade Dysphagia Goals School Lunch Monitor Goals Safe/efficient oral intake Pt will have safe/efficient oral intake Thin liquids;New/revised goal Short Term Goals Tolerate liquid consistency Pt will tolerate tolerate liquid consistency Thin liquids;With max supervision;New/revised goal in-house watch adjuster unavailable and computer watch adjuster unavailable, family used Tj, John Garcia MD - 01/17/2015 11:50 AM PDTFormatting of this note might be different from the chantella l. Progress Notes by Mario Crawford MD at 01/17/15 1150 Author: Mario Crawford MD Service: Cardiology Author Type: Physician Filed: 01/17/15 1203 Date of Service: 01/17/15 1150 Status: Signed Order Expediter: Mario Crawford MD (Physician) [facility] Service: Cardiology Progress Note Hospital Day: LOS: 14 days Post-Op Day: 14 Days Post-Op SUBJECTIVE Patient Summary: 64 y.o. male with no previous cardiac history. He was admitted [facility] surgery on 01/03/15 [...] - FLEXIBLE; Surgeon: Saleem Shore MD; Location: [facility]; Service: General; Laterality: N/A; Total hip arthroplasty Bilateral Knee surgery Right Flexible sigmoidoscopy N/A 12/25/2014 Procedure: SIGMOIDOSCOPY - FLEXIBLE; Surgeon: Saleem Shore MD; Location: [facility]; Service: General; Laterality: N/A; Robotic assisted laparoscopic colon resection - coloanal N/A 01/03/2015 Procedure: ROBOTIC ASSISTED LAPAROSCOPIC COLON RESECTION - COLOANAL; Surgeon: Saleem chauhan MD; Location: [facility]; Service: General; Laterality: N/A; coloanal pull thr ough Flexible sigmoidoscopy N/A 01/03/2015 Procedure: SIGMOIDOSCOPY - FLEXIBLE; Surgeon: Saleem Shore MD; Location: [facility]; Service: General; Laterality: N/A; Sigmoidoscopy - rigid N/A 01/03/2015 Procedure: SIGMOIDOSCOPY - RIGID; Surgeon: Saleem Shore MD; Location: [facility] ; Service: General; Laterality: N/A; [...] ect that he has had an acute FL. The inferior infarct cited on his EKG [...] Status: Full Code Bo Lopez D.O., of [facility] will be available over [...] Date of Service: 01/17/15 105 Status: Signed Order Expediter: Choco Hernandez RPH (Pharmacist) TPN day 7, [...] Date of Service: 01/17/15 1000 Status: Signed Order Expediter: Jcarlos Lawson RN (Registered Nurse) With patient in Nuc. Med department for HIDA scan. VSS onversion Transacti on, Provider Unknown - 01/17/2015 7:43 AM PDTFormatting of this note might be different fro m the original. Progress Notes by Rubia Regan, MS-4 at 01/17/15 0743 Author: Rubia Regan, MS-4 Service: Optics Engineer Author Type: Medical Student Filed: 01/17/15 1141 Date of Service: 01/17/15742 Status: Attested Order Expediter: Rubia Regan, MS-4 (Medical Student) Cosigner: Niesha [...] and formulating a plan exclusive of procedures. [facility] Service: Optics Engineer Progress Note Jose Eaton 64 y.o. Hospital Day: LOS: 14 days Post-Op Day: 14 Days Post-Op Consulting Physicians Treatment Team: Consulting Physician: Amy Simons MD Consulting Physician: Mario Crawford MD Admitting Provider: Saleem Shore MD SUBJECTIVE Patient Summary: Pt is a 64 y/o Bahraini speaking M with past medical history significant [...] Intake/Output Summary (Last 24 hours) at 01/17/15 0726 Last data filed at 01/17/15 0535 Gross [...] Jan 12 2015 6:44AM Referring Provider Line: [phone] ID: [id number] Echo Cardiac Adult Complete 01/12/2015 1. Overall left ventricular systolic function is moderately impaired with, an EF between 35 - 40 %. 2. Pseudonormal LV diastolic filling pattern, consistent with elevated LA pressure and moderate dysfunction (Grade II). 3. The right ventricle is normal in size. 4. The right ventricular systolic function is impaired. 5. Moderate mitral regurgitation is present. 6. Fszs-bm-zbrjsozj tricuspid regurgitation present. 7. There is mild [...] full dose Lovenox pending HIDA scan results. Emt/Paramedic Dr. Crawford consulted, following. Recommends avoiding dobutamine [...] 0702 Date of Service: 01/17/15640 Status: Signed Order Expediter: Rahul Valles DO (Physician) [facility] Service: Infectious Disease Progress Note Hospital Day: [...] Therapy Progress Note by Kitty Peng MA CCC-FLEXIBLE BABYSITTER at 01/16/151531 Author: Kitty Peng MA CCC-FLEXIBLE BABYSITTER Service: (none) Author Type: Speech and Language Patholo gist Filed: 01/16/151531 Date of Service: 01/16/151531 Status: Signed Order Expediter: Kitty Peng MA CCC-FLEXIBLE BABYSITTER (Speech and Language Pathologist) 01/16/15 1532 FLEXIBLE BABYSITTER Last Visit FLEXIBLE BABYSITTER Received On 01/16/15 Requires FLEXIBLE BABYSITTER Follow Up On hold Per RN pt not appropriate for swallow at this time. ST to check back tomorrow. Aubrie Fitzgerald MD - 01/16/2015 2:43 PM PDT Progress Notes by Aubrie Linton MD at 01/16/15 1443 Author: Aubrie Linton MD Service: Infectious Disease Author Type: Physician Filed: 01/16/15 191 Date of Service: 01/16/15 1443 Status: Signed Order Expediter: Aubrie Linton MD (Physician) [facility] Service: Infectious Disease Progress Note Hospital Day: [...] POSITIVE COCCIP GRAM STAIN Testing performed at [facility], [address], [place] [address] CULTURE PENDINGP Resulting Agency [facility] Specimen Collected: 01/12/15 7:55 AM Impression 1. Stable right perihilar and basilar airspace disease. 2. Mild stable left basilar opacity to likely represent subsegmental atelectasis. X-ray chest 1 view [[id number]] PROBLEM LIST Principal Problem: Atrial fibrillation with [...] 1446 Date of Service: 01/16/157 Status: Signed Order Expediter: Kelli Belle PT (Physical Therapist) 01/16/15 1417 [...] Date of Service: 01/16/15 1258 Status: Signed Order Expediter: Saleem Shore MD (Physician) [facility], [...] Notes by Choco Hernandez RPH at 01/16/15 8962 Author: Choco Hernandez RPH Service: Pharmacy Author Type: Pharmacist Filed: 01/16/15 4761 Date of Service: 01/16/15 6322 Status: Signed Order Expediter: Choco Hernandez RPH (Pharmacist) TPN day 6, Lytes WNL, Patient is still on endotool insulin drip. No changes in TPN formula. Patient is at goal of AA 6% + D18% at 75ml/hr. onver alex Transaction, Provider Unknown - 01/16/2015 10:27 AM PDT Case Management by BRIA Lima at 01/16/15 1027 Author: BRIA Lima Service: (none) Author Type: Powerbuilder Filed: 01/16/15 1034 Date of Service: 01/16/15 1027 Status: Signed Order Expediter: BRIA Lima (Powerbuilder) Attended morning rounds. Pt was extubated. Brother and friend are in pt's room. Cardiolog y to consult. onver alex Transaction, Provider Unknown - 01/16/2015 8:35 AM PDT Progress Notes by JESSICA Colin at 01/16/1521 Author: JESSICA Colin Service: Optics Engineer Author Type: Medical Student Filed: 01/16/15 4519 Date of Service: 01/16/15834 Status: Attested Order Expediter: JESSICA Colin (Medical Student) Cosigner: Niesha Duarte MD at 01/16/151756 Attestation signed by Niesha Duarte MD at 01/16/151756 Plan of care discussed with Rubia. I agree with the physical examination and management as documented. Please bill 40 minutes of critical care time spent evaluating the patient, reviewing the da ta and formulating a plan exclusive of procedures. [facility] Service: Optics Engineer Progress Note Jose Eaton 64 y.o. [...] Jan 12 2015 6:44AM Referring Provider Line: [phone] ID: [id number] Echo Cardiac Adult Complete 01/12/2015 1. Overall left ventricular systolic function is moderately impaired with, an EF between 35 - 40 %. 2. Pseudonormal LV diastolic filling pattern, consistent with elevated LA pressure and moderate dysfunction (Grade II). 3. The right ventricle is normal in size. 4. The right ventricular systolic function is impaired. 5. Moderate mitral regurgitation is present. 6. Yvcn-hv-alccwcwj tricuspid regurgitation present. 7. There is mild [...] 0711 Date of Service: 01/15/151999 Status: Signed Order Expediter: Francisca Caraballo RN (Registered Nurse) Report from day RN, POC discussed, armband verified with MAR, allergies and code status not ed. Pt sedated, vented, will open eyes to voice and follow commands weakly on all four extre mities. Bahraini primary language. Pt eyes are red and [...] MD about hemodynamics, no new orders received. [id number] Pt continues to moan and want more [...] 01/15/151705 Date of Service: 01/15/151703 Status: Signed Order Expediter: Saleem Shore MD (Physician) [facility], [...] atin, nystatin, [DISCONTINUED] ondansetron OR ondansetron, pancrelipase (Hhq-Jbau-Foxf) 10,000 units, petrolatum, polyethylene glycol, potassium chloride [...] Date of Service: 01/15/15 1250 Status: Signed Order Expediter: Kelli Belle PT (Physical Therapist) 01/15/15 1250 PT Last Visit PT Received On 01/15/15 Requires PT Follow Up On hold (Pt remains intubated/sedated) Aubrie Fitzgerald MD - 01/15/2015 12:40 PM PDT Progress Notes by Aubrie Linton MD at 01/15/15 1240 Author: Aubrie Linton MD Service: Infectious Disease Author Type: Physician Filed: 01/15/15 1901 Date of Service: 01/15/151239 Status: Signed Order Expediter: Aubrie Linton MD (Physician) [facility] Service: Infectious Disease Progress Note Hospital Day: [...] POSITIVE COCCIP GRAM STAIN Testing performed at [facility], [address], [place] [address] CULTURE PENDINGP Resulting Agency [facility] Specimen Collected: 01/12/15 7:55 AM Impression 1. Stable right perihilar and basilar airspace disease. 2. Mild stable left basilar opacity to likely represent subsegmental atelectasis. X-ray chest 1 view [[id number]] PROBLEM LIST Principal Problem: Atrial fibrillation with [...] (none) Author Type: Registered Dietitian Filed: 01/15/15 7284 Date of Service: 01/15/15 1239 Status: Signed Order Expediter: Anna Suresh RD, CD (Registered Dietitian) 01/15/15 1223 Subjective Timepoint Follow up (adjust TPN, start [...] up date 01/18/[address], CD, [facility] 01/15/2015 onver alex Transaction, Provider Unknown - 01/15/2015 12:22 PM PDT Progress Notes by Choco Hernandez RPH at 01/15/151221 Author: Choco Hernandez RPH Service: Pharmacy Author Type: Pharmacist Filed: 01/15/151221 Date of Service: 01/15/151221 Status: Signed Order Expediter: Choco Hernandez RPH (Pharmacist) TPN day 5, [...] Author: BRIA Lima Service: (none) Author Type: Powerbuilder Filed: 01/15/15919 Date of Service: 01/15/15913 Status: Signed Order Expediter: BRIA Lima (Powerbuilder) Attended morning rounds. Pt remains vented. Had illeostomy, RAT due to dehydration, POD 11, failed most recent SBT. On TPN. Likely pt will need SNF. Has Medicare and Medicaid. Lives in [place] so likely will want [facility] if proximity to family is important. I will make initial referral though it is u nderstood that pt is a long ways from transferring out of the hospital. [place]: [phone] Choice of SNF needs to be discussed with family/pt. onver alex Transaction, Provider Unknown - 01/14/2015 12:53 PM PDT Nurse Progress Note by Carmen Butler RN at 01/14/15 9168 Author: Carmen Butler RN Service: Wound/Ostomy Care Author Type: Registered Nurse Filed: 01/14/15 3620 Date of Service: 01/14/15 740 Status: Signed Order Expediter: Carmen Butler RN (Registered Nurse) Wound care [...] General Surgery Author Type: Physician Filed: 01/14/15 1132 Date of Service: 01/14/151128 Status: Signed Order Expediter: Saleem Shore MD (Physician) [facility], [...] 01/14/151115 Date of Service: 01/14/151115 Status: Signed Order Expediter: Choco Hernandez RPH (Pharmacist) TPN day 4, [...] 1017 Date of Service: 01/14/15929 Status: Signed Order Expediter: Aubrie Linton MD (Physician) [facility] Service: Infectious Disease Progress Note Hospital Day: [...] at 08:15 AM in Hematology and Oncology ([facility] NURSE) 01/12/15 7:55 AM Specimen Description SPUTUMP GRAM STAIN GREATER THAN 10 WBCS/LPFP GRAM STAIN LESS THAN 10 SEC/LPFP GRAM STAIN 1+P GRAM STAIN GRAM POSITIVE COCCIP GRAM STAIN Testing performed at [facility], [address], [place] [address] CULTURE PENDINGP Resulting Agency [facility] Specimen Collected: 01/12/15 7:55 AM Impression 1. Stable right perihilar and basilar airspace disease. 2. Mild stable left basilar opacity to likely represent subsegmental atelectasis. X-ray chest 1 view [[id number]] PROBLEM LIST Principal Problem: Atrial fibrillation with [...] 01/14/151906 Date of Service: 01/14/15899 Status: Signed Order Expediter: Nba Strong PT (Physical Therapist) 01/14/15899 PT Last Visit PT Received On 01/14/15 (remains intubated/sedated) Requires PT Follow Up On hold onver alex Transaction, Provider Unknown - 01/14/2015 7:38 AM PDT Therapy Progress Note by Celine Farnsworth OTR/Ada at 01/14/15 0738 Author: GABRIELLA Iverson/Ada Service: (none) Author Type: Occupational Therapist Filed: 01/14/15 0740 Date of Service: 01/14/15737 Status: Signed Order Expediter: GABRIELLA Iverson/Ada (Occupational Therapist) 01/14/15737 OT Last Visit OT Received On 01/14/15 Requires OT Follow Up On hold Other Comments Comments Pt intubated; spoke with RN who reports pt is following commands inconsistently. P ritkia to keep on OT list and f/u. Plan Requires OT Follow Up On hold Dino Swann MD - 01/14/2015 2:26 AM PDTFormatting of this note might be different from the randolph ginal. Progress Notes by Dino Russo MD at 01/14/15225 Author: Dino Russo MD Service: Optics Engineer Author Type: Physician Filed: 01/15/15 0730 Date of Service: 01/14/15225 Status: Addendum Order Expediter: Dino Russo MD (Physician) Related Notes: Original Note by Dino Russo MD (Physician) filed at 01/15/15 0554 [facility] Service: Optics Engineer Progress Note Jose Eaton 64 y.o. [...] 1129 Date of Service: 01/13/151945 Status: Signed Order Expediter: Saleem Shore MD (Physician) [facility], [...] Progress Note by IRAM Iverson at 01/13/15 4451 Author: IRAM Iverson Service: (none) Author Type: Occupational Therapist Filed: 01/13/15 1696 Date of Service: 01/13/151554 Status: Signed Order Expediter: IRAM Iverson (Occupational Therapist) 01/13/15 8374 OT Last Visit OT Received On 01/13/15 [...] 01/13/151419 Date of Service: 01/13/151419 Status: Signed Order Expediter: Anna Suresh RD, KENISHA (Registered Dietitian) 01/13/15 [...] up date 01/16/[address], CD, [facility] 01/13/2015 onver alex Transaction, Provider Unknown - 01/13/2015 1:41 PM PDT Case Management by BRIA Lima at 01/13/15 3800 Author: BRIA Lima Service: (none) Author Type: Powerbuilder Filed: 01/13/15 8361 Date of Service: 01/13/151340 Status: Signed Order Expediter: BRIA Lima (Powerbuilder) Attended care conference with Dr. Vega, watch adjuster, pt's brother and pt's friend. Dr. Vega [...] a few days . Brother: Gustabo Eaton [phone] (c) [phone] (w) Friend: Hector Stone [phone] line Liu RPH - 01/13/2015 12:38 PM PDTFormatting of this note might be different from t he original. Progress Notes by Aline Cabrales RPH at 01/13/15 4842 Author: Aline Cabrales RPH Service: (none) Author Type: Pharmacist Filed: 01/13/15 1238 Date of Service: 01/13/15 1238 Status: Signed Order Expediter: Aline Cabrales RPH (Pharmacist) Clinical Pharmacy Note - TPN Blood glucose running high overnight; patient changed to insulin Endotool drip. Will remove insulin from TPN at this time. [employer] Former Supervisor suggested formula change to decrease daily dextrose. [...] Author: BRIA Lima Service: (none) Author Type: Powerbuilder Filed: 01/13/15 1049 Date of Service: 01/13/15 1031 Status: Addendum Order Expediter: BRIA Lima (Powerbuilder) Related Notes: Original Note by BRIA Lima (Powerbuilder) filed at 01/13/15 1034 Attended morning rounds. Pt was transferred to the ICU after a RAT was called on the acute care floor. Pt is now vented. Per family services manager is citizen of [place] speaking only. Originally pt was planned to go home with [facility]. SBT to occur today. CM to follow. Arranged for care conference at 1300 today. Vtc Technician notified and watch adjuster called. onver alex Transaction, Provider Unknown - 01/13/2015 8:11 AM PDT Therapy Progress Note by Nba Strong PT at 01/13/15 0811 Author: Nba Strong PT Service: Physical Medicine and Rehab Author Type: Physical Therapist Filed: 01/13/15 1206 Date of Service: 01/13/15 0811 Status: Signed Order Expediter: Nba Strong PT (Physical Therapist) 01/13/15 0811 PT Last Visit PT Received On 01/13/15 Requires PT Follow Up On hold (remains a hold) ubrie Linton MD - 01/13/2015 8:06 AM PDT Progress Notes by Aubrie Linton MD at 01/13/15805 Author: Aubrie Linton MD Service: Infectious Disease Author Type: Physician Filed: 01/13/15 1037 Date of Service: 01/13/15805 Status: Signed Order Expediter: Aubrie Linton MD (Physician) [facility] Service: Infectious Disease Progress Note Hospital Day: [...] at 08:15 AM in Hematology and Oncology ([facility] NURSE) 01/12/15 7:55 AM Specimen Description SPUTUMP GRAM STAIN GREATER THAN 10 WBCS/LPFP GRAM STAIN LESS THAN 10 SEC/LPFP GRAM STAIN 1+P GRAM STAIN GRAM POSITIVE COCCIP GRAM STAIN Testing performed at [facility], [address], [place] [address]F CULTURE PENDINGP Resulting Agency [facility] Specimen Collected: 01/12/15 7:55 AM Impression 1. Stable right perihilar and basilar airspace disease. 2. Mild stable left basilar opacity to likely represent subsegmental atelectasis. X-ray chest 1 view [[id number]] PROBLEM LIST Principal Problem: Atrial fibrillation with [...] 01/13/15404 Date of Service: 01/13/15404 Status: Signed Order Expediter: Suad Alvarez RPH (Pharmacist) Clinical Pharmacy Note: [...] at 01/13/15249 Author: Dino Russo MD Service: Optics Engineer Author Type: Physician Filed: 01/13/152131 Date of Service: 01/13/15249 Status: Signed Order Expediter: Dino Russo MD (Physician) [facility] Service: Optics Engineer Progress Note Jose Eaton 64 y.o. [...] 01/12/151737 Date of Service: 01/12/151737 Status: Signed Order Expediter: Anna Suresh RD, CD (Registered Dietitian) 01/12/15 0550 Subjective Timepoint Follow up (routine ICU admit [...] today. Skin Stoma is reportedly red/denuded per clay molder but skin is otherwise intact with no [...] Type (!) Moderate Anna Suresh RD, CD, [facility] 01/12/2015 onver alex Transaction, Provider Unknown - 01/12/2015 11:08 AM PDT Progress Notes by Yasmin Bethea RPH at 01/12/15 110 Author: Yasmin Bethea RPH Service: (none) Author Type: Pharmacist Filed: 01/12/151107 Date of Service: 01/12/151107 Status: Signed Order Expediter: Yasmin Bethea RPH (Pharmacist) Day 1 Vanco [...] Date of Service: 01/12/15 104 Status: Signed Order Expediter: Saleem Shore MD (Physician) [facility], [...] 01/12/15832 Date of Service: 01/12/15832 Status: Signed Order Expediter: GABRIELLA Rico/Ada (Occupational Therapist) 01/12/15 0832 OT [...] Date of Service: 01/12/15 0800 Status: Signed Order Expediter: Roro Sterling, PT (Physical Therapist) 01/12/15 0800 [...] 01/12/15751 Date of Service: 01/12/15751 Status: Signed Order Expediter: Ludivina Eckert RPH (Pharmacist) Clinical Pharmacy Note: [...] at 01/12/15338 Author: Dino Russo MD Service: Optics Engineer Author Type: Physician Filed: 01/12/15 0515 Date of Service: 01/12/15338 Status: Signed Order Expediter: Dino Russo MD (Physician) Sepsis protocol 6 hour note The lactic acid is trending down, He is on levophed 18mcg/min. ivc is full with no respiratory variation. onversion Transaction , Provider Unknown - 01/12/2015 1:40 AM PDT Progress Notes by Suad Alvarez RPH at 01/12/15139 Author: Suad Alvarez RPH Service: (none) Author Type: Pharmacist Filed: 01/12/15139 Date of Service: 01/12/15139 Status: Signed Order Expediter: Suad Alvarez RPH (Pharmacist) Clinical Pharmacy Note: [...] 01/12/15126 Date of Service: 01/12/15126 Status: Signed Order Expediter: Suad Alvarez RPH (Pharmacist) Clinical Pharmacy Note: Extended Interval Zosyn Dosing CREATININE: 1.8 mg/dL ABNORMAL (01/11/152007) Estimated creatinine clearance - 36.8 mL/min NEUTROPHILS ABS Date Value Ref Range Status 01/11/2015 3.36 1.90 - 7.40 K/uL Final Comment: Testing performed at [facility], [address] [place] [address] Will begin with loading dose of 4.5 [...] at 01/12/1535 Author: Dino Russo MD Service: Optics Engineer Author Type: Physician Filed: 01/12/15 0053 Date of Service: 01/12/1535 Status: Signed Order Expediter: Dino Russo MD (Physician) [facility] Service: Optics Engineer Progress Note Jose Eaton 64 y.o. [...] 01/12/1531 Date of Service: 01/12/1530 Status: Signed Order Expediter: Suad Alvarez RPH (Pharmacist) Patient on TPN: Electrolyte replacement changed to TPN replacement. Thank you. Suad Alvarez PharmD 01/12/2015 12:31 AM onver alex Transaction, Provider Unknown - 01/12/2015 12:01 AM PDT Progress Notes by Evelyn Davidson RRT at 01/12/15 0001 Author: Evelyn Davidson RRT Service: (none) Author Type: Registered Respiratory Therapi st Filed: 01/12/15 0003 Date of Service: 01/12/15 0001 Status: Signed Order Expediter: Evelyn Davidson RRT (Registered Respiratory Therapist) 01/11/152299 ETT 8 mm Placement Date/Time: 01/11/152254 Size : 8 mm Cuffed: Cuffed Insertion attempts: 1 Pl aced By: Optics Engineer Secured at (cm): 22 cm Measured [...] Breath Sounds Right Diminished Pt intubated by Optics Engineer Karan without incident/event with ETT 8.0, 22cm at [facility] placement. No desaturations durring intubation. Placement confirmed by visual, BS, and EtCO2 detection. onver alex Transaction, Provider Unknown - 01/11/2015 11:03 PM PDT Nurse Progress Note by Chandrika Mayers RN at 01/11/152302 Author: Chandrika Mayers RN Service: (none) Author Type: Registered Nurse Filed: 01/11/152316 Date of Service: 01/11/152302 Status: Signed Order Expediter: Chandrika Mayers RN (Registered Nurse) Received phone call while in another patients room that Patient had a low blood pressure. Upon entering room, lead RN and another rough rounder machine were in room. Patient alert, citizen of [place] sp eaking only. Patient tachypnic and warm to the touch. RAT was called at approximately 2000. ICU lead RN, in room to assist along with lab, respiratory and Dr. Palmer. Patients daysh ift RN also asked in to room to assist with questions. Lead RN entered orders given by Dr. Palmer. MANAGEMENT PROFESSIONALS initiated fluid boluses and IV antibiotics. Per [...] 01/11/152213 Date of Service: 01/11/152211 Status: Signed Order Expediter: Grace Jasso RN (Registered Nurse) Lactate result 5.0 even after multiple NS bolus. Patient being transferred to ICU with ICU lead RN, primary rough rounder machine. onver alex Transaction, Provider Unknown - 01/11/2015 8:20 PM PDT Nurse Progress Note by Grace Jasso RN at 01/11/152019 Author: Grace Jasso RN Service: (none) Author Type: Registered Nurse Filed: 01/11/152020 Date of Service: 01/11/152019 Status: Signed Order Expediter: Grace Jasso RN (Registered Nurse) Pressure bags applied to NS bolus. IV antibiotics started. onver alex Transaction, Provider Unknown - 01/11/2015 8:11 PM PDT Nurse Progress Note by Grace Jasso RN at 01/11/152010 Author: Grace Jasso RN Service: (none) Author Type: Registered Nurse Filed: 01/11/152011 Date of Service: 01/11/152010 Status: Signed Order Expediter: Grace Jasso RN (Registered Nurse) Mediport has good blood return. EKG done. evaluating results. onver alex Transaction, Provider Unknown - 01/11/2015 8:05 PM PDT Nurse Progress Note by Grace Jasso RN at 01/11/152004 Author: Grace Jasso RN Service: (none) Author Type: Registered Nurse Filed: 01/11/152005 Date of Service: 01/11/152004 Status: Signed Order Expediter: Grace Jasso RN (Registered Nurse) Lactate and blood cultures being drawn. EKG ordered, placed called. onver alex Transaction, Provider Unknown - 01/11/2015 7:46 PM PDT Nurse Progress Note by Kayli [place] RN at 01/11/151945 Author: Kayli [place] RN Service: (none) Author Type: Registered Nurse Filed: 01/11/151949 Date of Service: 01/11/151945 Status: Signed Order Expediter: Kayli [place] RN (Registered Nurse) Called Dr. [...] 01/11/151917 Date of Service: 01/11/151917 Status: Signed Order Expediter: Odessa Moreno RPH (Pharmacist) Clinical Pharmacy Note: INITIATION OF Parenteral Nutrition: Jose Eaton 64 y.o. male Height: Ht Readings from Last 1 Encounters: 01/10/15 1.626 m (5' 4") Weight: Wt Readings from Last 1 Encounters: 01/11/15 69.4 kg (153 lb) Body Mass Index: Body mass index is 26.25 kg/(m^2). [place] Body Weight: 59.2 kg Adjusted Body Weight: 63.3 kg Creatinine: CREATININE Date Value Ref Range Status 01/11/2015 0.67* 0.70 - 1.30 mg/dL Final Comment: Testing performed at [facility], [address] [place] [address] Estimated CrCl : CREATININE: 0.67 mg/dL ABNORMAL (01/11/15 7323) Estimated creatinine clearance - 90.8 mL/min Estimated Needs: Basal Energy Expenditure (BEE): 1300 hubert BEE x 1.2-1.4 = 5742-6273 Kcal needed per day Protein Requirements: Maintenance, [...] 01/11/151840 Date of Service: 01/11/151699 Status: Signed Order Expediter: Kayli [place] RN (Registered Nurse) Pt. Found [...] 1506 Date of Service: 01/11/151447 Status: Signed Order Expediter: Karsten Santiago MD (Physician) [facility] Service: Hospitalist Progress Note Pt: Jose Eaton AGE/SEX: 64 y.o. 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 No results for input(s): PHART, PO2ART, SSS6OHR, B9NTMQWA, BEART in the last 168 hours. No [...] 1438 Date of Service: 01/11/151424 Status: Addendum Order Expediter: Kayli [place] RN (Registered Nurse) Related Notes: [...] Date of Service: 01/11/15 1307 Status: Signed Order Expediter: Anoop Horan RN (Registered Nurse) Met with patient and watch adjuster. Patient had reported to nurse earlier in [...] 01/11/15854 Date of Service: 01/11/15851 Status: Signed Order Expediter: Saleem Shore MD (Physician) [facility], [...] KCl 20 mEq 110 mL/hr at 01/11/15 8395 PRN Medications HYDROcodone-acetaminophen OR HYDROcodone-acetaminophen, magnesium sulfate [...] 0435 Date of Service: 01/11/15431 Status: Signed Order Expediter: Rosalva Mosqueda RN (Registered Nurse) Pt c/o [...] Date of Service: 10/16/15 1521 Status: Signed Order Expediter: Asya Chauhan RD (Registered Dietitian) 01/10/15 1508 [...] General Surgery Author Type: Physician Filed: 01/10/15 1231 Date of Service: 01/10/15 1232 Status: Signed Order Expediter: Saleem Shore MD (Physician) [facility], [...] Author: BRIA Colindres Service: (none) Author Type: Powerbuilder Filed: 01/10/15 1216 Date of Service: 01/10/154 Status: Signed Order Expediter: BRIA Colindres (Powerbuilder) 01/10/15 1200 Anticipated Disposition Facility Type Home health care Medicare Important Message (GAUTAM) (given 01/09) Home Health Care Facility Other (comment) ([facility] ) Rcvd call from [facility] - they req call back - called them back at [phone] - they stated tht they could not take pt if he did not have a pcp - Called [facility] in [place] - pt is established with them - [...] DC so that they are aware [facility] [place] onver alex Transaction, Provider Unknown - 01/10/2015 10:47 AM PDT Nurse Progress Note by Kayli [place] RN at 01/10/151046 Author: Kayli [place] RN Service: (none) Author Type: Registered Nurse Filed: 01/10/15 1050 Date of Service: 01/10/157 Status: Signed Order Expediter: Kayli [place] RN (Registered Nurse) Friend Liborio Escobar called to give update per his request, no answer, left my name and n umber on voicemail. Kayli [place] Hardeep Williamson MD - 01/10/2015 10:43 AM PDT Progress Notes by Hardeep Suarez MD at 01/10/15 104 Author: Hardeep Suarez MD Service: Hospitalist Author Type: Physician Filed: 01/10/154 Date of Service: 01/10/151042 Status: Signed Order Expediter: Hardeep Suarez MD (Physician) [facility] Service: Hospitalist Progress Note Pt: Jose Eaton AGE/SEX: 64 y.o. male ROOM: [address] [place] [address] : 1950 PCP: PER PT NONE ADMIT [...] MD, FACP 01/10/2015 10:43 AM Dictation software, Gen110, used which may contain error for similar sounding words even af ter review. Personal communication requested for any clarification. bag. Saleem Rodriguez MD - 01/09/2015 4:02 PM PDT Progress Notes by Saleem Shore MD at 01/09/15 160 Author: Saleem Shore MD Service: General Surgery Author Type: Physician Filed: 01/09/151602 Date of Service: 01/09/151601 Status: Signed Order Expediter: Saleem Shore MD (Physician) [facility], [...] Note by Daren Kolb RN at 01/09/15 7851 Author: Daren Kolb RN Service: (none) Author Type: Registered Nurse Filed: 01/09/15 1748 Date of Service: 01/09/15 1238 Status: Signed Order Expediter: Daren Kolb RN (Registered Nurse) High output [...] 1242 Date of Service: 01/09/155 Status: Signed Order Expediter: Hardeep Suarez MD (Physician) [facility] Service: Hospitalist Progress Note Pt: Jose Eaton AGE/SEX: 64 y.o. male ROOM: [facility] : 1950 PCP: PER PT [...] MD, FACP 01/09/2015 12:15 PM Dictation software, Gen110, used which may contain error for similar [...] Date of Service: 01/09/15 114 Status: Signed Order Expediter: Lennie Redding RN (Registered Nurse) Floor RN [...] 1058 Date of Service: 01/09/151052 Status: Signed Order Expediter: Daren Kolb RN (Registered Nurse) Patient is [...] 01/09/151048 Date of Service: 01/09/151048 Status: Signed Order Expediter: June Mo RPH (Pharmacist) Patient has been [...] Author: BRIA Ward Service: (none) Author Type: Powerbuilder Filed: 01/09/15831 Date of Service: 01/09/15831 Status: Signed Order Expediter: BRIA Ward (Powerbuilder) is working on arranging for [facility] to provide Ostomy-care and eli REED aleem Christie MD - 01/08/2015 8:47 PM PDT Progress Notes by Saleem Shore MD at 01/08/152046 Author: Saleem Shore MD Service: General Surgery Author Type: Physician Filed: 01/08/152047 Date of Service: 01/08/152046 Status: Signed Order Expediter: Saleem Shore MD (Physician) [facility], [...] Notes by Linda Gant RN at 01/08/15 8658 Author: Linda Gant RN Service: Wound/Ostomy Care Author Type: Registered Nurse Filed: 01/08/15 4183 Date of Service: 01/08/151327 Status: Signed Order Expediter: Linda Gant RN (Registered Nurse) [facility] Service: Ostomy Care Hospital Day: LOS: 5 days Post-Op Day: 5 Days Post-Op SUBJECTIVE Patient Summary: Ostomy nurse in for continued ostomy teaching. Bahraini interpretor present. 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 Crusted oliva-stomal [...] Home Health as well. Patient lives in [place]. [facility], abhishek s it wasn't done yesterday, order number: #[id number]. Patient provided with citizen of [place] Ostomy p acket. Did encourage patient to [...] 1138 Date of Service: 01/08/151112 Status: Signed Order Expediter: Hardeep Suarez MD (Physician) [facility] Service: Hospitalist Progress Note Pt: Jose Eaton [...] MD, FACP 01/08/2015 11:13 AM Dictation software, Gen110, used which may contain error for similar sounding words even af ter review. Personal communication requested for any clarification. onversion Transac tion, Provider Unknown - 01/08/2015 8:08 AM PDTFormatting of this note might be different f rom the original. Case Management by BRIA Ward at 01/08/15807 Author: BRIA Ward Service: (none) Author Type: Powerbuilder Filed: 01/08/15807 Date of Service: 01/08/15807 Status: Signed Order Expediter: BRIA Ward (Powerbuilder) CM met with pt for continued discharge [...] 01/07/151731 Date of Service: 01/07/151723 Status: Signed Order Expediter: Bety Nguyen RN (Registered Nurse) Subjective: This [...] requested that we print in structions in Bahraini and return tomorrow for ostomy teaching with the patient. Treatment/Dressing Plan: Ostomy teaching was printed off and to be delivered to the patient tomorrow. A one piece ostomy pouch seems to be working best for the patient at this time. At the patients request free samples were ordered to be delivered to the address he specifi ed from [facility]. BETY NGUYEN RN CWOCN 5:24 PM 01/07/2015 aleem Christie MD - 01/07/2015 5:12 PM PDT Progress Notes by Saleem Shore MD at 01/07/151711 Author: Saleem Shore MD Service: General Surgery Author Type: Physician Filed: 01/07/152027 Date of Service: 01/07/151711 Status: Addendum Order Expediter: Saleem Shore MD (Physician) Related Notes: Original Note by Saleem Shore MD (Physician) filed at 01/07/152025 [facility] Service: Colon [...] 1007 Date of Service: 01/07/1547 Status: Signed Order Expediter: Hardeep Suarez MD (Physician) [facility] Service: Hospitalist Progress Note Pt: Jose Eaton AGE/SEX: 64 y.o. male ROOM: [address] [place] [address] : 1950 PCP: GERALD PT NONE ADMIT [...] MD, FACP 01/07/2015 9:47 AM Dictation software, Gen110, used which may contain error for similar sounding words even af ter review. Personal communication requested for any clarification. Saleem Rodriguez MD - 01/06/2015 8:58 PM PDT Progress Notes by Saleem Shore MD at 01/06/152057 Author: Saleem Shore MD Service: General Surgery Author Type: Physician Filed: 01/07/152036 Date of Service: 01/06/152057 Status: Addendum Order Expediter: Saleem Shore MD (Physician) Related Notes: Original Note by Saleem Shore MD (Physician) filed at 01/06/152102 [facility] Service: Colon [...] 01/06/151714 Date of Service: 01/06/151707 Status: Signed Order Expediter: Bety Nguyen RN (Registered Nurse) [facility] Service: Ostomy Care Consult Note Hospital Day: [...] will plan to return tomorrow with an watch adjuster to do more ostomy teaching for this dear citizen of [place] speaking patient. Thank you for allowing me to participate in the care of this patient. I will continue to follow with you. BETY NGUYEN RN [facility] 01/06/2015 Hardeep Williamson MD - 01/06/2015 9:39 AM PDT Progress Notes by Hardeep Suarez MD at 01/06/15938 Author: Hardeep Suarez MD Service: Hospitalist Author Type: Physician Filed: 01/06/15958 Date of Service: 01/06/15938 Status: Addendum Order Expediter: Hardeep Suarez MD (Physician) Related Notes: Original Note by Hardeep Suarez MD (Physician) filed at 01/06/15958 [facility] Service: Hospitalist Progress Note Pt: Jose Eaton AGE/SEX: 64 y.o. male ROOM: [address] [place], [place] [id number] : 1950 PCP: GERALD PT NONE ADMIT [...] MD, FACP 01/06/2015 9:39 AM Dictation software, Gen110, used which may contain error for similar [...] 01/05/151616 Date of Service: 01/05/151615 Status: Signed Order Expediter: Heather Kan RN (Registered Nurse) 01/05/151613 Discharge Planning Evaluation Admitting Diagnosis rectal cancer Readmission No Living Arrangements Alone Support Systems Friends/neighbors (Shawn Capone [phone]) Type of Residence Private residence House type [...] 01/05/15857 Date of Service: 01/05/15853 Status: Signed Order Expediter: Saleem Shore MD (Physician) [facility], [...] 1111 Date of Service: 01/04/151105 Status: Signed Order Expediter: Saleem Shore MD (Physician) [facility], [...] Saleem Shore MD 01/04/2015 ohnson, Aline Deluca [facility] - 01/03/2015 3:54 PM PDT Progress Notes by Aline Cabrales RPH at 01/03/15 5767 Author: Aline Cabrales RPH Service: (none) Author Type: Pharmacist Filed: 01/03/15 413 Date of Service: 01/03/151553 Status: Signed Order Expediter: Aline Cabrales RPH (Pharmacist) Clinical Pharmacy Note - Renal Dose Adjustment Jose Eaton 64 y.o. male Ht Readings from Last 1 Encounters: 01/03/15 1.626 m (5' 4") Wt Readings from Last 1 Encounters: 01/03/15 72.8 kg (160 lb 7.9 oz) CREATININE Date Value Ref Range Status 12/19/2014 0.63* 0.70 - 1.30 mg/dL Final Comment: Testing performed at [facility], [address] [place] [address] Creatinine clearance cannot be calculated (Patient's most [...] Note by Candace Almanza RN at 01/03/15 552 Author: Candace Almanza RN Service: (none) Author Type: Registered Nurse Filed: 01/03/15 3087 Date of Service: 01/03/151419 Status: Signed Order Expediter: Candace Almanza RN (Registered Nurse) Dr Shore [...] [address] | | | | | | [place] [address] | | | | | | [phone] | | | | | | | | +--------+ + + + + | 02/21/ | Surgery | | Saleem Shore, | COLONOSCOPY | | 2018 | | | [address] | | | | | | [address] | | | | | | [place] [address] | | | | | | [phone] | | | | | | | [...] | | | Fingerstick | performed at [facility] [place] | | LAB | | | | [address];[place] | | | | | | [address] | | | | + + + [...] | | performed at [facility] [place] [place]888 | K/uL | LAB | | | | [address];[place] | | | | | | [address] | | | | + + + + + + | RED CELL | 2.61 (L)Comment: Testing | 4.20 - 5.70 | EXTERNAL | | | COUNT | performed at [facility] [place];[address] | M/uL | LAB | | | | [address];[place] | | | | | | [address] | | | | + + + + + + | Hgb | 8.5 (L)Comment: Testing | 13.2 - 17.0 | EXTERNAL | | | | performed at [facility] [place];888 | g/dL | LAB | | | | [address];[place] | | | | | | [address] | | | | + + + + + + | Hematocrit, | 24.8 (L)Comment: Testing | 39.0 - 50.0 % | EXTERNAL | | | POC | performed at [facility] [place];[address] | | LAB | | | | [address];[place] | | | | | | [address] | | | | + + + + + + | MCV | 95.2Comment: Testing | 80.0 - 100.0 fl | EXTERNAL | | | | performed at [facility] [place];[address] | | LAB | | | | [address];[place] | | | | | | [address] | | | | + + + + + + | MCH | 32.6Comment: Testing | 27.0 - 34.0 pg | EXTERNAL | | | | performed at [facility] [place];[address] | | LAB | | | | [address];[place] | | | | | | [address] | | | | + + + + + + | MCHC | 34.2Comment: Testing | 32.0 - 35.5 | EXTERNAL | | | | performed at [facility] [place]888 | g/dL | LAB | | | | [address];[place] | | | | | | [address] | | | | + + + + + + | RDW-CV | 45.1Comment: Testing | 37 - 53 fl | EXTERNAL | | | | performed at [facility] [place];[address] | | LAB | | | | [address];[place] | | | | | | [address] | | | | + + + + + + | Platelet | 584 (H)Comment: Testing | 150 - 400 K/uL | EXTERNAL | | | Count | performed at [facility] [place];[address] | | LAB | | | Plasma | [address];[place] | | | | | | [address] | | | | + + + + + + | MPV | 7.8Comment: Testing | fl | EXTERNAL | | | | performed at [facility] [place];[address] | | LAB | | | | [address];[place] | | | | | | [address] | | | | + + + + + + | Differentia | AUTOMATEDComment: | | EXTERNAL | | | l Type | Testing performed at | | LAB | | | | [facility] [place] [place];[address];[place] [address] | | | | + + + + + + | % Segmented | 76.19Comment: Testing | % | EXTERNAL | | | | performed at [facility] [place] [place];[address] | | LAB | | | Neutrophils | [address];[place] | | | | | | [address] | | | | + + + + + + | % | 9.37Comment: Testing | % | EXTERNAL | | | Lymphocytes | performed at [facility] [place] [place];[address] | | LAB | | | | [address];[place] | | | | | | [address] | | | | + + + + + + | % Monocytes | 9.80Comment: Testing | % | EXTERNAL | | | | performed at [facility] [place];[address] | | LAB | | | | [address];[place] | | | | | | [address] | | | | + + + + + + | % | 3.37Comment: Testing | % | EXTERNAL | | | Eosinophils | performed at [facility] [place] [place];[address] | | LAB | | | | [address];[place] | | | | | | [address] | | | | + + + + + + | % Basophils | 1.27Comment: Testing | % | EXTERNAL | | | | performed at [facility] [place] [place];[address] | | LAB | | | | [address];[place] | | | | | | [address] | | | | + + + + + + | Absolute | 7.44 (H)Comment: Testing | 1.90 - 7.40 | EXTERNAL | | | Segmented | performed at [facility] [place] [place];888 | K/uL | LAB | | | Neutrophils | [address];[place] | | | | | | [address] | | | | + + + + + + | Absolute | 0.92 (L)Comment: Testing | 1.00 - 3.90 | EXTERNAL | | | Lymphocytes | performed at [facility] [place] [place];888 | K/uL | LAB | | | | [address];[place] | | | | | | [address] | | | | + + + + + + | Absolute | 0.96 (H)Comment: Testing | 0.00 - 0.80 | EXTERNAL | | | Monocytes | performed at [facility] [place];888 | K/uL | LAB | | | | [address];[place] | | | | | | [address] | | | | + + + + + + | Absolute | 0.33Comment: Testing | 0.00 - 0.50 | EXTERNAL | | | Eosinophils | performed at [facility] [place] [place];888 | K/uL | LAB | | | | [address];[place] | | | | | | [address] | | | | + + + + + + | Absolute | 0.12 (H)Comment: Testing | 0.00 - 0.10 | EXTERNAL | | | Basophils | performed at [facility] [place] [place];888 | K/uL | LAB | | | | [address];[place] | | | | | | [address] | | | | + + + + + + | RBC | RBC AND PLT MORPHOLOGY | | EXTERNAL | | | Morphology | APPEAR NORMALComment: | | LAB | | | | Testing performed at | | | | | | [facility] [place];[address] | | | [address];[place] [address] | | | | + + + + + + | Differentia | SLIDE SCANNED, AGREES | | EXTERNAL | | | l Comments | WITH AUTOMATED | | LAB | | | | RESULTS.Comment: Testing | | | | | | performed at [facility] [place] [place];[address] | | | | | | [address];[place] | | | | | | [address] | | | | + + + [...] | | performed at [facility];[address] | | LAB | | | | [address];[place] | | | | | | [address] | | | | + + + [...] | | performed at [facility];[address] | | LAB | | | | [address];[place], [place] | | | | | | [address] | | | | + + + [...] | | performed at [facility] [place] [place];888 | mmol/L | LAB | | | | [address];[place] | | | | | | [address] | | | | + + + + + + | K | 4.5Comment: Testing | 3.5 - 4.9 | EXTERNAL | | | | performed at [facility] [place] [place] | mmol/L | LAB | | | | [address];[place] | | | | | | [address] | | | | + + + + + + | Cl | 102Comment: Testing | 99 - 109 mmol/L | EXTERNAL | | | | performed at [facility] [place] [place];[address] | | LAB | | | | [address];[place] | | | | | | [address] | | | | + + + + + + | CO2 | 23Comment: Testing | 23 - 32 mmol/L | EXTERNAL | | | | performed at [facility] [place];[address] | | LAB | | | | [address];[place] | | | | | | [address] | | | | + + + + + + | Anion Gap | 13Comment: Testing | 5 - 20 mmol/L | EXTERNAL | | | | performed at [facility] [place] [place];[address] | | LAB | | | | [address];[place] | | | | | | [address] | | | | + + + + + + | Glucose, | 115 (H)Comment: Testing | 65 - 99 mg/dL | EXTERNAL | | | Fasting | performed at [facility] [place] [place];[address] | | LAB | | | | [address];[place] | | | | | | [address] | | | | + + + + + + | BUN | 30 (H)Comment: Testing | 8 - 25 mg/dL | EXTERNAL | | | | performed at [facility] [place] [place];[address] | | LAB | | | | [address];[place] | | | | | | [address] | | | | + + + + + + | Creatinine | 0.64 (L)Comment: Testing | 0.70 - 1.30 | EXTERNAL | | | | performed at [facility] [place] [place] | mg/dL | LAB | | | | [address];[place] | | | | | | [address] | | | | + + + + + + | BUN/Creatin | 47Comment: Testing | | EXTERNAL | | | ine Ratio | performed at [facility] [place] [place];[address] | | LAB | | | | [address];[place] | | | | | | [address] | | | | + + + + + + | Calcium | 8.3 (L)Comment: Testing | 8.5 - 10.5 | EXTERNAL | | | | performed at [facility] [place] [place] | mg/dL | LAB | | | | [address];[place] | | | | | | [address] | | | | + + + [...] | | | | | | at [facility] [place];[address] [place] [address] | | | | | | [facility];[place] [address] | | | | + + + [...] | | | Fingerstick | performed at [facility] [place] [place];[address] | | LAB | | | | [address];[place], [place] | | | | | | [address] | | | | + + + [...] | | | Fingerstick | performed at [facility];888 | | LAB | | | | [address];[place], [place] | | | | | | [address] | | | | + + + [...] | | | Fingerstick | performed at [facility];[address] | | LAB | | | | [address];[place], [place] | | | | | | [address] | | | | + + + [...] Conversion - 11/10/2018 8:48 AM PDT JOSE EATON3/4/[id number] yearsXR CHEST | | 1 VIEW01/24/2015 5:44 [...] | | | Fingerstick | performed at [facility] [place] [place];[address] | | LAB | | | | [address];[place], [place] | | | | | | [address] | | | | + + + [...] EXTERNAL | | | | performed at [facility], [address] | K/uL | LAB | | | | [address], | | | | | | [place] [address] | | | | + + + + + + | RED CELL | 2.52 (L)Comment: Testing | 4.20 - 5.70 | EXTERNAL | | | COUNT | performed at [facility], [address] | M/uL | LAB | | | | [address], | | | | | | [place] [address] | | | | + + + + + + | Hgb | 8.5 (L)Comment: Testing | 13.2 - 17.0 | EXTERNAL | | | | performed at [facility], [address] | g/dL | LAB | | | | [address], | | | | | | [place] [address] | | | | + + + [...] | | | | [place] [address] | | | | + + + + + + | MCH | 33.5Comment: Testing | 27.0 - 34.0 pg | EXTERNAL | | | | performed at [facility], [address] | | LAB | | | | [address], | | | | | | [place] [address] | | | | + + + + + + | MCHC | 34.3Comment: Testing | 32.0 - 35.5 | EXTERNAL | | | | performed at [facility], [address] | g/dL | LAB | | | | [address], | | | | | | [place] [address] | | | | + + + + + + | RDW-CV | 45.9Comment: Testing | 37 - 53 fl | EXTERNAL | | | | performed at [facility], [address] | | LAB | | | | [address], | | | | | | [place] [address] | | | | + + + + + + | Platelet | 498 (H)Comment: Testing | 150 - 400 K/uL | EXTERNAL | | | Count | performed at [facility], [address] | | LAB | | | Plasma | [address], | | | | | | [place] [address] | | | | + + + + + + | MPV | 8.3Comment: Testing | fl | EXTERNAL | | | | performed at [facility], [address] | | LAB | | | | [address], | | | | | | [place] [address] | | | | + + + + + + | Differentia | MANUALComment: Testing | | EXTERNAL | | | l Type | performed at [facility], [address] | | LAB | | | | [address], | | | | | | [place] [address] | | | | + + + + + + | Segmented | 75Comment: Testing | % | EXTERNAL | | | Neutrophils | performed at [facility], [address] | | LAB | | | Manual | [address], | | | | | | [place] [address] | | | | + + + + + + | Lymphocytes | 11Comment: Testing | % | EXTERNAL | | | Manual | performed at [facility], [address] | | LAB | | | | [address], | | | | | | [place] [address] | | | | + + + + + + | Monocytes | 9Comment: Testing | % | EXTERNAL | | | Manual | performed at [facility], [address] | | LAB | | | | [address], | | | | | | [place] [address] | | | | + + + + + + | Eosinophils | 5Comment: Testing | % | EXTERNAL | | | Manual | performed at [facility], [address] | | LAB | | | | [address], | | | | | | [place] [address] | | | | + + + + + + | Absolute | 6.95Comment: Testing | 1.90 - 7.40 | EXTERNAL | | | Neutrophils | performed at [facility], [address] | K/uL | LAB | | | | [address], | | | | | | [place] [address] | | | | + + + + + + | Absolute | 1.02Comment: Testing | 1.00 - 3.90 | EXTERNAL | | | Lymphocytes | performed at [facility], [address] | K/uL | LAB | | | | [address], | | | | | | [place] [address] | | | | + + + + + + | Absolute | 0.83 (H)Comment: Testing | 0.00 - 0.80 | EXTERNAL | | | Monocytes | performed at [facility], [address] | K/uL | LAB | | | | [address], | | | | | | [place] [address] | | | | + + + + + + | Absolute | 0.46Comment: Testing | 0.00 - 0.50 | EXTERNAL | | | Eosinophils | performed at [facility], [address] | K/uL | LAB | | | | [address], | | | | | | [place] [address] | | | | + + + + + + | Platelet | INCREASEDComment: | | EXTERNAL | | | Estimate | Testing performed at | | LAB | | | | [facility], [address] [facility] | | | | | | [place] | | | | | | [address] | | | | + + + + + + | RBC | NORMAL RBC MORPHComment: | | EXTERNAL | | | Morphology | NORMAL PLT MORPHTesting | | LAB | | | | performed at [facility], [address] | | | | | | [address], | | | | | | [place] [address] | | | | + + + [...] | | performed at [facility] [place] [place];[address] | | LAB | | | | [address];[place] | | | | | | [address] | | | | + + + [...] | | performed at [facility] [place];[address] | | LAB | | | | [address];[place] | | | | | | [address] | | | | + + + [...] | | performed at [facility];[address] | | LAB | | | | [address];[place], [place] | | | | | | [address] | | | | + + + [...] | | performed at [facility] [place];[address] | mmol/L | LAB | | | | [address];[place] | | | | | | [address] | | | | + + + + + + | K | 4.8Comment: Testing | 3.5 - 4.9 | EXTERNAL | | | | performed at [facility] [place] [place];[address] | mmol/L | LAB | | | | [address];[place] | | | | | | [address] | | | | + + + + + + | Cl | 104Comment: Testing | 99 - 109 mmol/L | EXTERNAL | | | | performed at [facility];[address] | | LAB | | | | [address];[place] | | | | | | [address] | | | | + + + + + + | CO2 | 25Comment: Testing | 23 - 32 mmol/L | EXTERNAL | | | | performed at [facility] [place];[address] | | LAB | | | | [address];[place] | | | | | | [address] | | | | + + + + + + | Anion Gap | 11Comment: Testing | 5 - 20 mmol/L | EXTERNAL | | | | performed at [facility] [place] [place];[address] | | LAB | | | | [address];[place] | | | | | | [address] | | | | + + + + + + | Glucose, | 115 (H)Comment: Testing | 65 - 99 mg/dL | EXTERNAL | | | Fasting | performed at [facility] [place];[address] | | LAB | | | | [address];[place] | | | | | | [address] | | | | + + + + + + | BUN | 29 (H)Comment: Testing | 8 - 25 mg/dL | EXTERNAL | | | | performed at [facility] [place] [place];[address] | | LAB | | | | [address];[place] | | | | | | [address] | | | | + + + + + + | Creatinine | 0.60 (L)Comment: Testing | 0.70 - 1.30 | EXTERNAL | | | | performed at [facility] [place] [place];[address] | mg/dL | LAB | | | | [address];[place] | | | | | | [address] | | | | + + + + + + | BUN/Creatin | 49Comment: Testing | | EXTERNAL | | | ine Ratio | performed at [facility] [place] [place];[address] | | LAB | | | | [address];[place] | | | | | | [address] | | | | + + + + + + | Calcium | 8.2 (L)Comment: Testing | 8.5 - 10.5 | EXTERNAL | | | | performed at [facility] [place];[place] | mg/dL | LAB | | | | [address];[place] | | | | | | [address] | | | | + + + [...] | | | | | | at [facility];[address] [place] [address] | | | | | | [facility];[place] [address] | | | | + + + [...] | | | Fingerstick | performed at [facility];[address] | | LAB | | | | [address];[place], [place] | | | | | | [address] | | | | + + + [...] | | | Fingerstick | performed at [facility];[address] | | LAB | | | | [address];[place] | | | | | | [address] | | | | + + + [...] reconstructed images | | | performed by orthopaedic technologist. Contrast: MultiHance. Dose: 14 mL. | [...] JOSE EATON1948MRI ABDOMEN W WO | | [place]20/29/2015 3:06 PM HISTORY: Rectal carcinoma, mucous plug [...] | intensity projected reconstructed images performed by orthopaedic technologist.Contrast: | | MultiHance. Dose: 14 mL. [...] | | | Fingerstick | performed at [facility];[address] | | LAB | | | | [address];[place] | | | | | | [address] | | | | + + + [...] Conversion - 11/10/2018 8:48 AM PDT JOSE [id number]/4/[id number] yearsXR CHEST | | 1 VIEW01/23/2015 5:52 [...] | | | Fingerstick | performed at [facility] [place] [place];[address] | | LAB | | | | [address];[place] | | | | | | [address] | | | | + + + [...] EXTERNAL | | | | performed at [facility], [address] | K/uL | LAB | | | | [address], | | | | | | [place] [address] | | | | + + + + + + | RED CELL | 2.47 (L)Comment: Testing | 4.20 - 5.70 | EXTERNAL | | | COUNT | performed at [facility], [address] | M/uL | LAB | | | | [address], | | | | | | [place] [address] | | | | + + + + + + | Hgb | 8.2 (L)Comment: Testing | 13.2 - 17.0 | EXTERNAL | | | | performed at [facility], [address] | g/dL | LAB | | | | [address], | | | | | | [place] [address] | | | | + + + + + + | Hematocrit, | 24.1 (L)Comment: Testing | 39.0 - 50.0 % | EXTERNAL | | | POC | performed at [facility], [address] | | LAB | | | | [address], | | | | | | [place] [address] | | | | + + + + + + | MCV | 97.5Comment: Testing | 80.0 - 100.0 fl | EXTERNAL | | | | performed at [facility], [address] | | LAB | | | | [address], | | | | | | [place] [address] | | | | + + + + + + | MCH | 33.3Comment: Testing | 27.0 - 34.0 pg | EXTERNAL | | | | performed at [facility], [address] | | LAB | | | | [address], | | | | | | [place] [address] | | | | + + + + + + | MCHC | 34.2Comment: Testing | 32.0 - 35.5 | EXTERNAL | | | | performed at [facility], [address] | g/dL | LAB | | | | [address], | | | | | | [place] [address] | | | | + + + + + + | RDW-CV | 44.2Comment: Testing | 37 - 53 fl | EXTERNAL | | | | performed at [facility], [address] | | LAB | | | [address], | | | | | | [place] [address] | | | | + + + + + + | Platelet | 408 (H)Comment: Testing | 150 - 400 K/uL | EXTERNAL | | | Count | performed at [facility], [address] | | LAB | | | Plasma | [address], | | | | | | [place] [address] | | | | + + + + + + | MPV | 8.7Comment: Testing | fl | EXTERNAL | | | | performed at [facility], [address] | | LAB | | | | [address], | | | | | | [place] [address] | | | | + + + + + + | Differentia | MANUALComment: Testing | | EXTERNAL | | | l Type | performed at [facility], [address] | | LAB | | | | [address], | | | | | | [place], [place] [address] | | | | + + + + + + | Segmented | 84Comment: Testing | % | EXTERNAL | | | Neutrophils | performed at [facility], [address] | | LAB | | | Manual | [address], | | | | | | [place], [place] [address] | | | | + + + + + + | % Bands | 3Comment: Testing | % | EXTERNAL | | | | performed at [facility], [address] | | LAB | | | | [address], | | | | | | [place], [place] [address] | | | | + + + + + + | % | 1Comment: Testing | % | EXTERNAL | | | Metamyelocy | performed at [facility], [address] | | LAB | | | [address] | [address], | | | | | | [place], [place] [address] | | | | + + + + + + | Lymphocytes | 6Comment: Testing | % | EXTERNAL | | | Manual | performed at [facility], [address] | | LAB | | | | [address], | | | | | | [place] [address] | | | | + + + + + + | Monocytes | 3Comment: Testing | % | EXTERNAL | | | Manual | performed at [facility], [address] | | LAB | | | [address], | | | | | | [place] [address] | | | | + + + + + + | Eosinophils | 3Comment: Testing | % | EXTERNAL | | | Manual | performed at [facility], [address] | | LAB | | | | [address], | | | | | | [place] [address] | | | | + + + + + + | Absolute | 9.02 (H)Comment: Testing | 1.90 - 7.40 | EXTERNAL | | | Neutrophils | performed at [facility], [address] | K/uL | LAB | | | | [address], | | | | | | [place] [address] | | | | + + + + + + | Bands | 0.32 (H)Comment: Testing | 0.00 - 0.20 | EXTERNAL | | | Manual | performed at [facility], [address] | K/uL | LAB | | | | [address], | | | | | | [place] [address] | | | | + + + + + + | Absolute | 0.11 (H)Comment: Testing | K/uL | EXTERNAL | | | Metamyelocy | performed at [facility], [address] | | LAB | | | [address] | [address], | | | | | | [place] [address] | | | | + + + + + + | Absolute | 0.64 (L)Comment: Testing | 1.00 - 3.90 | EXTERNAL | | | Lymphocytes | performed at [facility], [address] | K/uL | LAB | | | | [address], | | | | | | [place] [address] | | | | + + + + + + | Absolute | 0.32Comment: Testing | 0.00 - 0.80 | EXTERNAL | | | Monocytes | performed at [facility], [address] | K/uL | LAB | | | | [address], | | | | | | [place] [address] | | | | + + + + + + | Absolute | 0.32Comment: Testing | 0.00 - 0.50 | EXTERNAL | | | Eosinophils | performed at [facility], [address] | K/uL | LAB | | | | [address], | | | | | | [place] [address] | | | | + + + + + + | Platelet | INCREASEDComment: | | EXTERNAL | | | Estimate | Testing performed at | | LAB | | | | [facility], [address] [facility] | | | | | | [place] | | | | | | [address] | | | | + + + + + + | RBC | 1+Comment: ANISONORMAL | | EXTERNAL | | | Morphology | PLT MORPHTesting | | LAB | | | | performed at [facility], [address] | | | | | | [facility], | | | | | | [place] [address] | | | | | | | [...] | | [place] [facility] [place] | | [place] | | | | [address] [place], [place] | | | | | | [phone] | | | | + + + [...] | | performed at [facility] [place] | | LAB | | | | [place] | | | | | | [phone] | | | | + + + [...] | | performed at [facility] [place] | | LAB | | | | [address];[place], [place] | | | | | | [address] | | | | + + + [...] | | Last Dose | performed at [facility] [place] | | LAB | | | | [address];[place] | | | | | | [phone] | | | | + + + + + + | Time of | UNKNOWNComment: Testing | | EXTERNAL | | | Last Dose | [place] [facility] [place] | | LAB | | | | [address];[place] | | | | | | [phone] | | | | + + + + + + | Digoxin | 1.3Comment: Testing | 0.90 - 2.00 | EXTERNAL | | | level | performed at [facility], [address] | ng/mL | LAB | | | | [place], | | | | | | [place] [phone] | | | | + + + [...] | | performed at [facility] [place] | mmol/L | LAB | | | | [address];[place] | | | | | | [phone] | | | | + + + + + + | K | 4.3Comment: Testing | 3.5 - 4.9 | EXTERNAL | | | | performed at [facility] [place] | mmol/L | LAB | | | | [address];[place] | | | | | | [phone] | | | | + + + + + + | Cl | 103Comment: Testing | 99 - 109 mmol/L | EXTERNAL | | | | performed at [facility] [place] | | LAB | | | | [address];[place] | | | | | | [address] | | | | + + + + + + | CO2 | 28Comment: Testing | 23 - 32 mmol/L | EXTERNAL | | | | performed at [facility] [place] | | LAB | | | | [address];[place] | | | | | | [phone] | | | | + + + + + + | Anion Gap | 8Comment: Testing | 5 - 20 mmol/L | EXTERNAL | | | | performed at [facility] [place] | | LAB | | | | [address];[place] | | | | | | [phone] | | | | + + + + + + | Glucose, | 113 (H)Comment: Testing | 65 - 99 mg/dL | EXTERNAL | | | Fasting | performed at [facility] [place];[address] | | LAB | | | | [address];[place] | | | | | | [address] | | | | + + + + + + | BUN | 27 (H)Comment: Testing | 8 - 25 mg/dL | EXTERNAL | | | | performed at [facility] [place] [place];[address] | | LAB | | | | [address];[place] | | | | | | [address] | | | | + + + + + + | Creatinine | 0.65 (L)Comment: Testing | 0.70 - 1.30 | EXTERNAL | | | | performed at [facility] [place];888 | mg/dL | LAB | | | | [address];[place] | | | | | | [phone] | | | | + + + + + + | BUN/Creatin | 42Comment: Testing | | EXTERNAL | | | ine Ratio | performed at [facility] [place] [place];[address] | | LAB | | | | [address];[place] | | | | | | [address] | | | | + + + + + + | Calcium | 8.0 (L)Comment: Testing | 8.5 - 10.5 | EXTERNAL | | | | performed at [facility] [place] [place];888 | mg/dL | LAB | | | | [address];[place] | | | | | | [address] | | | | + + + [...] | | | | | | at [facility] [place] [place];[address] [place] [address] | | | | | | [facility];[place] [address] | | | | + + + [...] | | | Fingerstick | performed at [facility] [place];[address] | | LAB | | | | [address];[place], [place] | | | | | | [address] | | | | + + + [...] | | performed at [facility] [place] [place];888 | mmol/L | LAB | | | | [address];[place] | | | | | | [address] | | | | + + + [...] | | performed at [facility] [place] [place];[address] | | LAB | | | | [address];[place], [place] | | | | | | [address] | | | | + + + [...] | | performed at [facility] [place] [place];[address] | | LAB | | | | [address];[place], [place] | | | | | | [address] | | | | + + + [...] | | | Fingerstick | performed at [facility] [place];[address] | | LAB | | | | [address];[place], [place] | | | | | | [address] | | | | + + + [...] | | | Fingerstick | performed at [facility] [place];[address] | | LAB | | | | [address];[place], [place] | | | | | | [address] | | | | + + + [...] K/uL | LAB | | | | [facility];[address];[place] [phone] | | | | + + + + + + | RED CELL | 2.60 (L)Comment: Testing | 4.20 - 5.70 | EXTERNAL | | | COUNT | performed at [facility] [place];888 | M/uL | LAB | | | | [address];[place] | | | | | | [address] | | | | + + + + + + | Hgb | 8.3 (L)Comment: Testing | 13.2 - 17.0 | EXTERNAL | | | | performed at [facility] [place] [place];888 | g/dL | LAB | | | | [address];[place] | | | | | | [address] | | | | + + + + + + | Hematocrit, | 25.4 (L)Comment: Testing | 39.0 - 50.0 % | EXTERNAL | | | POC | performed at [facility] [place];[address] | | LAB | | | | [address];[place] | | | | | | [phone] | | | | + + + + + + | MCV | 97.8Comment: Testing | 80.0 - 100.0 fl | EXTERNAL | | | | performed at [facility] [place] [place];[address] | | LAB | | | | [address];[place] | | | | | | [address] | | | | + + + + + + | MCH | 31.9Comment: Testing | 27.0 - 34.0 pg | EXTERNAL | | | | performed at [facility] [place];[address] | | LAB | | | | [address];[place] | | | | | | [address] | | | | + + + + + + | MCHC | 32.6Comment: Testing | 32.0 - 35.5 | EXTERNAL | | | | performed at [facility] [place] [place];888 | g/dL | LAB | | | | [address];[place] | | | | | | [address] | | | | + + + + + + | RDW-CV | 46.4Comment: Testing | 37 - 53 fl | EXTERNAL | | | | performed at [facility] [place] [place];[address] | | LAB | | | | [address];[place] | | | | | | [address] | | | | + + + + + + | Platelet | 320Comment: Testing | 150 - 400 K/uL | EXTERNAL | | | Count | performed at [facility] [place] [place];[address] | | LAB | | | Plasma | [address];[place] | | | | | | [phone] | | | | + + + + + + | MPV | 8.6Comment: Testing | fl | EXTERNAL | | | | performed at [facility] [place];[address] | | LAB | | | | [address];[place] | | | | | | [address] | | | | + + + + + + | Differentia | MANUALComment: Testing | | EXTERNAL | | | l Type | performed at [facility] [place] [place];[address] | | LAB | | | | [address];[place] | | | | | | [address] | | | | + + + + + + | Segmented | 77Comment: Testing | % | EXTERNAL | | | Neutrophils | performed at [facility] [place] [place];[address] | | LAB | | | Manual | [address];[place] | | | | | | [address] | | | | + + + + + + | % Bands | 7Comment: Testing | % | EXTERNAL | | | | performed at [facility] [place];[address] | | LAB | | | | [address];[place] | | | | | | [address] | | | | + + + + + + | Lymphocytes | 6Comment: Testing | % | EXTERNAL | | | Manual | performed at [facility] [place] [place];[address] | | LAB | | | | [address];[place] | | | | | | [address] | | | | + + + + + + | Monocytes | 9Comment: Testing | % | EXTERNAL | | | Manual | performed at [facility] [place] [place];[address] | | LAB | | | | [address];[place] | | | | | | [address] | | | | + + + + + + | Eosinophils | 1Comment: Testing | % | EXTERNAL | | | Manual | performed at [facility] [place];[address] | | LAB | | | | [address];[place] | | | | | | [address] | | | | + + + + + + | Absolute | 9.42 (H)Comment: Testing | 1.90 - 7.40 | EXTERNAL | | | Neutrophils | performed at [facility] [place] [place];888 | K/uL | LAB | | | | [address];[place] | | | | | | [address] | | | | + + + + + + | Bands | 0.86 (H)Comment: Testing | 0.00 - 0.20 | EXTERNAL | | | Manual | performed at [facility] [place] [place];888 | K/uL | LAB | | | | [address];[place] | | | | | | [address] | | | | + + + + + + | Absolute | 0.73 (L)Comment: Testing | 1.00 - 3.90 | EXTERNAL | | | Lymphocytes | performed at [facility] [place];888 | K/uL | LAB | | | | [address];[place] | | | | | | [address] | | | | + + + + + + | Absolute | 1.10 (H)Comment: Testing | 0.00 - 0.80 | EXTERNAL | | | Monocytes | performed at [facility] [place] [place];888 | K/uL | LAB | | | | [address];[place] | | | | | | [address] | | | | + + + + + + | Absolute | 0.12Comment: Testing | 0.00 - 0.50 | EXTERNAL | | | Eosinophils | performed at [facility] [place] [place];[address] | K/uL | LAB | | | | [address];[place] | | | | | | [address] | | | | + + + + + + | RBC | RBC AND PLT MORPHOLOGY | | EXTERNAL | | | Morphology | APPEAR NORMALComment: | | LAB | | | | Testing performed at | | | | | | [facility] [place];[address];[place] [phone] | | | | + + + [...] | | performed at [facility] [place];[address] | | LAB | | | | [address];[place], [place] | | | | | | [address] | | | | + + + [...] | | performed at [facility] [place] [place];[facility] | | LAB | | | | [address];[place], [place] | | | | | | [address] | | | | + + + [...] | | performed at [facility] [place] [place];888 | mmol/L | LAB | | | | [address];[place] | | | | | | [address] | | | | + + + + + + | K | 4.2Comment: Testing | 3.5 - 4.9 | EXTERNAL | | | | performed at [facility] [place];888 | mmol/L | LAB | | | | [address];[place] | | | | | | [phone] | | | | + + + + + + | Cl | 104Comment: Testing | 99 - 109 mmol/L | EXTERNAL | | | | performed at [facility] [place];[address] | | LAB | | | | [address];[place] | | | | | | [address] | | | | + + + + + + | CO2 | 26Comment: Testing | 23 - 32 mmol/L | EXTERNAL | | | | performed at [facility] [place];[address] | | LAB | | | | [address];[place] | | | | | | [address] | | | | + + + + + + | Anion Gap | 11Comment: Testing | 5 - 20 mmol/L | EXTERNAL | | | | performed at [facility] [place] [place];[address] | | LAB | | | | [address];[place] | | | | | | [address] | | | | + + + + + + | Glucose, | 123 (H)Comment: Testing | 65 - 99 mg/dL | EXTERNAL | | | Fasting | performed at [facility] [place] [place];[address] | | LAB | | | | [address];[place] | | | | | | [address] | | | | + + + + + + | BUN | 27 (H)Comment: Testing | 8 - 25 mg/dL | EXTERNAL | | | | performed at [facility] [place] [place];[address] | | LAB | | | | [address];[place] | | | | | | [address] | | | | + + + + + + | Creatinine | 0.57 (L)Comment: Testing | 0.70 - 1.30 | EXTERNAL | | | | performed at [facility] [place];888 | mg/dL | LAB | | | | [address];[place] | | | | | | [address] | | | | + + + + + + | BUN/Creatin | 47Comment: Testing | | EXTERNAL | | | ine Ratio | performed at [facility] [place];[address] | | LAB | | | | [address];[place] | | | | | | [address] | | | | + + + + + + | Calcium | 7.8 (L)Comment: Testing | 8.5 - 10.5 | EXTERNAL | | | | performed at [facility] [place];888 | mg/dL | LAB | | | | [address];[place] | | | | | | [address] | | | | + + + [...] | | | | | | at [facility] [place];[address] [place] [address] | | | | | | [facility];[place] [address] | | | | + + + [...] | | | Fingerstick | performed at [facility];8 | | LAB | | | | [address];[place], [place] | | | | | | [address] | | | | + + [...] Conversion - 11/10/2018 8:48 AM PDT JOSE EATON3/4/[id number] yearsXR CHEST | | 1 VIEW01/22/2015 5:58 [...] EXTERNAL | | | | performed at [facility], [address] | K/uL | LAB | | | | [address], | | | | | | [place] [address] | | | | + + + + + + | RED CELL | 2.32 (L)Comment: Testing | 4.20 - 5.70 | EXTERNAL | | | COUNT | performed at [facility], [address] | M/uL | LAB | | | | [address], | | | | | | [place] [address] | | | | + + + + + + | Hgb | 7.6 (L)Comment: Testing | 13.2 - 17.0 | EXTERNAL | | | | performed at [facility], [address] | g/dL | LAB | | | | [address] [place], | | | | | | [place] [address] | | | | + + + + + + | Hematocrit, | 25.2 (L)Comment: Testing | 39.0 - 50.0 % | EXTERNAL | | | POC | performed at [facility], [address] | | LAB | | | | [address] [place], | | | | | | [place] [address] | | | | + + + + + + | MCV | 108.4 (H)Comment: | 80.0 - 100.0 fl | EXTERNAL | | | | Testing performed at | | LAB | | | | [facility], [address] [facility] | | | | | | [place] | | | | | | [address] | | | | + + + + + + | MCH | 32.7Comment: Testing | 27.0 - 34.0 pg | EXTERNAL | | | | performed at [facility], [address] | | LAB | | | | [address] [place], | | | | | | [place] [address] | | | | + + + + + + | MCHC | 30.2 (L)Comment: Testing | 32.0 - 35.5 | EXTERNAL | | | | performed at [facility], [address] | g/dL | LAB | | | | [address], | | | | | | [place] [address] | | | | + + + + + + | RDW-CV | 57.3 (H)Comment: Testing | 37 - 53 fl | EXTERNAL | | | | performed at [facility], [address] | | LAB | | | | [address], | | | | | | [place] [address] | | | | + + + + + + | Platelet | 291Comment: Testing | 150 - 400 K/uL | EXTERNAL | | | Count | performed at [facility], [address] | | LAB | | | Plasma | [address], | | | | | | [place] [address] | | | | + + + + + + | MPV | 9.1Comment: Testing | fl | EXTERNAL | | | | performed at [facility], [address] | | LAB | | | | [address], | | | | | | [place] [address] | | | | + + + + + + | Differentia | MANUALComment: Testing | | EXTERNAL | | | l Type | performed at [facility], [address] | | LAB | | | | [address], | | | | | | [place] [address] | | | | + + + + + + | Segmented | 78Comment: Testing | % | EXTERNAL | | | Neutrophils | performed at [facility], [address] | | LAB | | | Manual | [address], | | | | | | [place] [address] | | | | + + + + + + | % Bands | 6Comment: Testing | % | EXTERNAL | | | | performed at [facility], [address] | | LAB | | | | [address], | | | | | | [place] [address] | | | | + + + + + + | Lymphocytes | 6Comment: Testing | % | EXTERNAL | | | Manual | performed at [facility], [address] | | LAB | | | | [address], | | | | | | [place] [address] | | | | + + + + + + | Monocytes | 8Comment: Testing | % | EXTERNAL | | | Manual | performed at [facility], [address] | | LAB | | | | [address], | | | | | | [place] [address] | | | | + + + + + + | Eosinophils | 2Comment: Testing | % | EXTERNAL | | | Manual | performed at [facility], [address] | | LAB | | | | [address], | | | | | | [place] [address] | | | | + + + + + + | Absolute | 8.26 (H)Comment: Testing | 1.90 - 7.40 | EXTERNAL | | | Neutrophils | performed at [facility], [address] | K/uL | LAB | | | | [address] [place], | | | | | | [place] [address] | | | | + + + + + + | Bands | 0.64 (H)Comment: Testing | 0.00 - 0.20 | EXTERNAL | | | Manual | performed at [facility], [address] | K/uL | LAB | | | | [address] [place] [address], | | | | | | [place] [address] | | | | + + + + + + | Absolute | 0.64 (L)Comment: Testing | 1.00 - 3.90 | EXTERNAL | | | Lymphocytes | performed at [facility], [address] | K/uL | LAB | | | | [address] [place], | | | | | | [place] [address] | | | | + + + + + + | Absolute | 0.85 (H)Comment: Testing | 0.00 - 0.80 | EXTERNAL | | | Monocytes | performed at [facility], [address] | K/uL | LAB | | | | [address], | | | | | | [place] [address] | | | | + + + + + + | Absolute | 0.21Comment: Testing | 0.00 - 0.50 | EXTERNAL | | | Eosinophils | performed at [facility], [address] | K/uL | LAB | | | [address], | | | | | | [place] [address] | | | | + + + + + + | RBC | 2+Comment: MACRONORMAL | | EXTERNAL | | | Morphology | PLT MORPHTesting | | LAB | | | | performed at [facility], [address] | | | | | | [place], | | | | | | [place] [address] | | | | | | | [...] | | | Fingerstick | performed at [facility];[address] | | LAB | | | | [address];[place] | | | | | | [address] | | | | + + + [...] | | | Fingerstick | performed at [facility];[address] | | LAB | | | | [address];[place], [place] | | | | | | [address] | | | | + + + [...] | | | Fingerstick | performed at [facility];[address] | | LAB | | | | [address];[place], [place] | | | | | | [address] | | | | + + + [...] | | | Fingerstick | performed at [facility];[address] | | LAB | | | | [address];[place], [place] | | | | | | [address] | | | | + + + [...] Conversion - 11/10/2018 8:48 AM PDT JOSE UMA3/4/[id number] yearsXR CHEST | | 1 VIEW01/21/2015 5:52 [...] | | | (Calc) | performed at [facility] [place] [place];888 | mmol/L | LAB | | | | [address];[place] | | | | | | [address] | | | | + + + + + + | pH, Bld | 7.429Comment: Testing | 7.300 - 7.450 | EXTERNAL | | | | performed at [facility];[address] | | LAB | | | | [address];[place] | | | | | | [address] | | | | + + + [...] K/uL | LAB | | | | [facility] [address] | | | | | | [address];[place] [phone] | | | | + + + + + + | RED CELL | 2.54 (L)Comment: Testing | 4.20 - 5.70 | EXTERNAL | | | COUNT | performed at [facility] [place] [place];[address] | M/uL | LAB | | | | [address];[place] | | | | | | [address] | | | | + + + + + + | Hgb | 8.3 (L)Comment: Testing | 13.2 - 17.0 | EXTERNAL | | | | performed at [facility];888 | g/dL | LAB | | | | [address];[place] | | | | | | [address] | | | | + + + + + + | Hematocrit, | 24.5 (L)Comment: Testing | 39.0 - 50.0 % | EXTERNAL | | | POC | performed at [facility] [place] [place];[address] | | LAB | | | | [address];[place] | | | | | | [address] | | | | + + + + + + | MCV | 96.5Comment: Testing | 80.0 - 100.0 fl | EXTERNAL | | | | performed at [facility] [place];[address] | | LAB | | | | [address];[place] | | | | | | [address] | | | | + + + + + + | MCH | 32.6Comment: Testing | 27.0 - 34.0 pg | EXTERNAL | | | | performed at [facility] [place];[address] | | LAB | | | | [address];[place] | | | | | | [address] | | | | + + + + + + | MCHC | 33.8Comment: Testing | 32.0 - 35.5 | EXTERNAL | | | | performed at [facility];888 | g/dL | LAB | | | | [address];[place] | | | | | | [address] | | | | + + + + + + | RDW-CV | 44.2Comment: Testing | 37 - 53 fl | EXTERNAL | | | | performed at [facility] [place];[address] | | LAB | | | | [address];[place] | | | | | | [address] | | | | + + + + + + | Platelet | 254Comment: Testing | 150 - 400 K/uL | EXTERNAL | | | Count | performed at [facility];[address] | | LAB | | | Plasma | [address];[place] | | | | | | [address] | | | | + + + + + + | MPV | 9.4Comment: Testing | fl | EXTERNAL | | | | performed at [facility];[address] | | LAB | | | | [address];[place] | | | | | | [address] | | | | + + + + + + | Differentia | AUTOMATEDComment: | | EXTERNAL | | | l Type | Testing performed at | | LAB | | | | [facility];[address];[place] [address] | | | | + + + + + + | % Segmented | 89.54Comment: Testing | % | EXTERNAL | | | | performed at [facility];[address] | | LAB | | | Neutrophils | [address];[place] | | | | | | [address] | | | | + + + + + + | % | 2.26Comment: Testing | % | EXTERNAL | | | Lymphocytes | performed at [facility];[address] | | LAB | | | | [address];[place] | | | | | | [address] | | | | + + + + + + | % Monocytes | 6.77Comment: Testing | % | EXTERNAL | | | | performed at [facility];[address] | | LAB | | | | [address];[place] | | | | | | [address] | | | | + + + + + + | % | 1.18Comment: Testing | % | EXTERNAL | | | Eosinophils | performed at [facility];[address] | | LAB | | | | [address];[place] | | | | | | [address] | | | | + + + + + + | % Basophils | 0.25Comment: Testing | % | EXTERNAL | | | | performed at [facility];[address] | | LAB | | | | [address];[place] | | | | | | [address] | | | | + + + + + + | Absolute | 13.70 (H)Comment: | 1.90 - 7.40 | EXTERNAL | | | Segmented | Testing performed at | K/uL | LAB | | | Neutrophils | [facility];[address];[place] [phone] | | | | + + + + + + | Absolute | 0.35 (L)Comment: Testing | 1.00 - 3.90 | EXTERNAL | | | Lymphocytes | performed at [facility];[address] | K/uL | LAB | | | | [address];[place] | | | | | | [address] | | | | + + + + + + | Absolute | 1.04 (H)Comment: Testing | 0.00 - 0.80 | EXTERNAL | | | Monocytes | performed at [facility];[address] | K/uL | LAB | | | | [address];[place] | | | | | | [address] | | | | + + + + + + | Absolute | 0.18Comment: Testing | 0.00 - 0.50 | EXTERNAL | | | Eosinophils | performed at [facility];[address] | K/uL | LAB | | | | [address];[place] | | | | | | [address] | | | | + + + + + + | Absolute | 0.04Comment: Testing | 0.00 - 0.10 | EXTERNAL | | | Basophils | performed at [facility];[address] | K/uL | LAB | | | | [address];[place] | | | | | | [address] | | | | + + + + + + | RBC | RBC AND PLT MORPHOLOGY | | EXTERNAL | | | Morphology | APPEAR NORMALComment: | | LAB | | | | Testing performed at | | | | | | [facility];[address];[place] [phone] | | | | + + + + + + | Platelet | ADEQUATEComment: Testing | | EXTERNAL | | | Estimate | performed at [facility];[address] | | LAB | | | | [address];[place] | | | | | | [address] | | | | + + + + + + | Differentia | SLIDE SCANNED, AGREES | | EXTERNAL | | | l Comments | WITH AUTOMATED | | LAB | | | | RESULTS.Comment: Testing | | | | | | performed at [facility];[address] | [...] | | | es | performed at [facility] | | LAB | | | | [address];[place], [place] | | | | | | [address] | | | | + + + [...] | | performed at [facility];[address] | | LAB | | | | [address];[place], [place] | | | | | | [address] | | | | + + [...] | | performed at [facility];[address] | | LAB | | | | [address];[place], [place] | | | | | | [address] | | | | + + + [...] | | Last Dose | performed at [facility] [place] | | LAB | | | | [address];[place] | | | | | | [phone] | | | | + + + + + + | Time of | UNKNOWNComment: Testing | | EXTERNAL | | | Last Dose | performed [place] [facility] [place] | | LAB | | | | [address];[place] | | | | | | [phone] | | | | + + + + + + | Digoxin | 1.9Comment: Testing | 0.90 - 2.00 | EXTERNAL | | | level | performed at [facility] [place] | ng/mL | LAB | | | | [address];[place] | | | | | | [phone] | | | | + + + [...] | | performed at [facility] [place] | mmol/L | LAB | | | | [address];[place] | | | | | | [phone] | | | | + + + + + + | K | 4.3Comment: Testing | 3.5 - 4.9 | EXTERNAL | | | | performed at [facility] [place] | mmol/L | LAB | | | | [address];[place] | | | | | | [phone] | | | | + + + + + + | Cl | 106Comment: Testing | 99 - 109 mmol/L | EXTERNAL | | | | performed at [facility] [place] | | LAB | | | | [address];[place] | | | | | | [phone] | | | | + + + + + + | CO2 | 23Comment: Testing | 23 - 32 mmol/L | EXTERNAL | | | | performed at [facility] [place] | | LAB | | | | [address];[place] | | | | | | [phone] | | | | + + + + + + | Anion Gap | 11Comment: Testing | 5 - 20 mmol/L | EXTERNAL | | | | performed at [facility] [place] | | LAB | | | | [address];[place] | | | | | | [phone] | | | | + + + + + + | Glucose, | 140 (H)Comment: Testing | 65 - 99 mg/dL | EXTERNAL | | | Fasting | performed [place] [facility] [place] | | LAB | | | | [address];[place] | | | | | | [phone] | | | | + + + + + + | BUN | 27 (H)Comment: Testing | 8 - 25 mg/dL | EXTERNAL | | | | [facility] [place] [facility] [place] | | LAB | | | | [address];[place] | | | | | | [phone] | | | | + + + + + + | Creatinine | 0.65 (L)Comment: Testing | 0.70 - 1.30 | EXTERNAL | | | | performed at [facility] [place] | mg/dL | LAB | | | | [address];[place] | | | | | | [phone] | | | | + + + + + + | BUN/Creatin | 42Comment: Testing | | EXTERNAL | | | ine Ratio | performed at [facility] [place] | | LAB | | | | [address];[place] | | | | | | [phone] | | | | + + + + + + | Calcium | 7.4 (L)Comment: Testing | 8.5 - 10.5 | EXTERNAL | | | | performed at [facility] [place]888 | mg/dL | LAB | | | | [address];[place] | | | | | | [phone] | | | | + + + [...] | | | | | | at [facility] [place] | | | | | [address];[place] [phone] | | | | + + + [...] | | | Fingerstick | performed at [facility] [place] | | LAB | | | | [address];[place], [place] | | | | | | [address] | | | | + + + [...] | | | Fingerstick | performed at [facility] [place] [place];[address] | | LAB | | | | [address];[place] | | | | | | [address] | | | | + + + [...] | | performed at [facility] [place] | mmol/L | LAB | | | | [address];[place], [place] | | | | | | [address] | | | | + + + [...] | | performed at [facility] [place] [place] [facility] [place];[address] | | LAB | | | | [facility];[place], [place] | | | | | | [address] | | | | + + + [...] | | performed at [facility] [place] [facility] [place] | | LAB | | | | [address];[place], [place] | | | | | | [address] | | | | + + + [...] | | Last Dose | performed at [facility] [place] [place];888 | | LAB | | | | [address];[place] | | | | | | [phone] | | | | + + + + + + | Time of | UNKNOWNComment: Testing | | EXTERNAL | | | Last Dose | performed at [facility] [place] [place] [facility] [place] | | LAB | | | | [address];[place] | | | | | | [phone] | | | | + + + + + + | Digoxin | 1.4Comment: Testing | 0.90 - 2.00 | EXTERNAL | | | level | performed at [facility], [address] | ng/mL | LAB | | | | [address], | | | | | | [place] [address] | | | | + + + [...] | | | Fingerstick | performed at [facility] [place] [place] [facility] [place];[address] | | LAB | | | | [address];[place], [place] | | | | | | [address] | | | | + + + [...] | | | Fingerstick | performed at [facility] [place];888 | | LAB | [...] SEEN | | | Testing performed at [facility] [place];[address] | | [address];[place] [address] CULTURE | | | NO GROWTH | | | Testing performed at [facility], [address] [place] | | | [address] | | + + + + +---------+ [...] | EXTERNAL LAB | | performed at [facility], [address] [facility], [place] [address] FLUID | | | TP SOURCE PLEURAL FLUID Testing | | | performed at [facility] [place] [place] [facility];[place] [address] | | + + + + +---------+ [...] EXTERNAL LAB | | Testing performed at [facility], [address] [facility], [place], [place] | | | [address] Glucose, Fluid Type PLEURAL FLUID | | | Testing performed at [facility] [place] [place] [facility] [place] [facility];[place] [address] | | + + + + +---------+ [...] EXTERNAL LAB | | Testing performed at [facility] [place];[address] [place] [address];[place] [address] | | + + + + +---------+ [...] | | | | [address];[place] [phone] | | | | + + + + + + | RED CELL | 2.50 (L)Comment: Testing | 4.20 - 5.70 | EXTERNAL | | | COUNT | performed at [facility] [place]888 | M/uL | LAB | | | | [address];[place] | | | | | | [phone] | | | | + + + + + + | Hgb | 8.3 (L)Comment: Testing | 13.2 - 17.0 | EXTERNAL | | | | performed at [facility] [place] [place];888 | g/dL | LAB | | | | [address];[place] | | | | | | [phone] | | | | + + + + + + | Hematocrit, | 24.1 (L)Comment: Testing | 39.0 - 50.0 % | EXTERNAL | | | POC | performed at [facility] [place] [place];[address] | | LAB | | | | [address];[place] | | | | | | [phone] | | | | + + + + + + | MCV | 96.5Comment: Testing | 80.0 - 100.0 fl | EXTERNAL | | | | performed at [facility] [place] [place];[address] | | LAB | | | | [address];[place] | | | | | | [address] | | | | + + + + + + | MCH | 33.3Comment: Testing | 27.0 - 34.0 pg | EXTERNAL | | | | performed at [facility] [place] [place];[address] | | LAB | | | | [address];[place] | | | | | | [address] | | | | + + + + + + | MCHC | 34.5Comment: Testing | 32.0 - 35.5 | EXTERNAL | | | | performed at [facility] [place] [place];888 | g/dL | LAB | | | | [address];[place] | | | | | | [address] | | | | + + + + + + | RDW-CV | 42.9Comment: Testing | 37 - 53 fl | EXTERNAL | | | | performed at [facility] [place] [place];[address] | | LAB | | | | [address];[place] | | | | | | [address] | | | | + + + + + + | Platelet | 185Comment: Testing | 150 - 400 K/uL | EXTERNAL | | | Count | performed at [facility] [place] [place] [facility] [place];888 | | LAB | | | Plasma | [address];[place] | | | | | | [address] | | | | + + + + + + | MPV | 9.7Comment: Testing | fl | EXTERNAL | | | | performed at [facility] [place] [place];[address] | | LAB | | | | [address];[place] | | | | | | [address] | | | | + + + + + + | Differentia | AUTOMATEDComment: | | EXTERNAL | | | l Type | Testing performed at | | LAB | | | | [facility] [place] [place] [facility] [place];[address];[place] [phone] | | | | + + + + + + | % Segmented | 90.04Comment: Testing | % | EXTERNAL | | | | performed at [facility] [place] [place];888 | | LAB | | | Neutrophils | [address];[place] | | | | | | [phone] | | | | + + + + + + | % | 2.67Comment: Testing | % | EXTERNAL | | | Lymphocytes | performed at [facility] [place] [place];[address] | | LAB | | | | [address];[place] | | | | | | [phone] | | | | + + + + + + | % Monocytes | 4.91Comment: Testing | % | EXTERNAL | | | | performed at [facility] [place] [place];[address] | | LAB | | | | [address];[place] | | | | | | [phone] | | | | + + + + + + | % | 2.15Comment: Testing | % | EXTERNAL | | | Eosinophils | performed at [facility] [place] [place];[address] | | LAB | | | | [address];[place] | | | | | | [phone] | | | | + + + + + + | % Basophils | 0.23Comment: Testing | % | EXTERNAL | | | | performed at [facility] [place] [place];[address] | | LAB | | | | [address];[place] | | | | | | [phone] | | | | + + + + + + | Absolute | 10.54 (H)Comment: | 1.90 - 7.40 | EXTERNAL | | | Segmented | Testing performed at | K/uL | LAB | | | Neutrophils | [facility] [place] [place];[address];[place] [phone] | | | | + + + + + + | Absolute | 0.31 (L)Comment: Testing | 1.00 - 3.90 | EXTERNAL | | | Lymphocytes | performed at [facility] [place] [place] [facility] [place];888 | K/uL | LAB | | | | [address];[place] | | | | | | [address] | | | | + + + + + + | Absolute | 0.57Comment: Testing | 0.00 - 0.80 | EXTERNAL | | | Monocytes | performed at [facility] [place] [place];888 | K/uL | LAB | | | | [address];[place] | | | | | | [phone] | | | | + + + + + + | Absolute | 0.25Comment: Testing | 0.00 - 0.50 | EXTERNAL | | | Eosinophils | performed at [facility] [place] [place];888 | K/uL | LAB | | | | [address];[place] | | | | | | [address] | | | | + + + + + + | Absolute | 0.03Comment: Testing | 0.00 - 0.10 | EXTERNAL | | | Basophils | performed at [facility] [place] [place] [facility] [place];888 | K/uL | LAB | | | | [address];[place] | | | | | | [address] | | | | + + + + + + | RBC | RBC AND PLT MORPHOLOGY | | EXTERNAL | | | Morphology | APPEAR NORMALComment: | | LAB | | | | Testing performed at | | | | | | [facility] [place] [place] [facility] [place];[address];[place] [phone] | | | | + + + + + + | Platelet | ADEQUATEComment: Testing | | EXTERNAL | | | Estimate | performed at [facility] [place] [place] [facility] [place];[address] | | LAB | | | | [address];[place] | | | | | | [phone] | | | | + + + + + + | Differentia | SLIDE SCANNED, AGREES | | EXTERNAL | | | l Comments | WITH AUTOMATED | | LAB | | | | RESULTS.Comment: Testing | | | | | | performed at [facility] [place] [place] [facility] [place];[address] | | | | | | [address];[place] | | | | | | [phone] | | | | + + + [...] | | performed at [facility] [place] [place] [facility] [place];888 | | LAB | | | | [address];[place], [place] | | | | | | [address] | | | | + + + [...] | | performed at [facility] [place] [place] [facility] [place];888 | | LAB | | | | [address];[place] | | | | | | [phone] | | | | + + + [...] | | performed at [facility] [place] [place] [facility] [place];888 | | LAB | | | | [address];[place], [place] | | | | | | [address] | | | | + + + [...] | | | Total | performed at [facility] [place] [facility] [place];888 | | LAB | | | | [address];[place] | | | | | | [phone] | | | | + + + + + + | Albumin | 1.2 (L)Comment: Testing | 3.3 - 4.8 g/dL | EXTERNAL | | | | performed at [facility] [place] [place] [facility] [place];[address] | | LAB | | | | [address];[place] | | | | | | [address] | | | | + + + + + + | Bilirubin | 3.0 (H)Comment: Testing | 0.1 - 1.5 mg/dL | EXTERNAL | | | Total | performed at [facility] [place] [facility] [place];[address] | | LAB | | | | [address];[place] | | | | | | [phone] | | | | + + + + + + | Bilirubin | 2.5 (H)Comment: Testing | 0.0 - 0.3 mg/dL | EXTERNAL | | | Direct | performed at [facility] [place] [place] [facility] [place];[address] | | LAB | | | | [address];[place] | | | | | | [phone] | | | | + + + + + + | ALP, | 88Comment: Testing | 35 - 115 U/L | EXTERNAL | | | External | performed at [facility] [place] [place] [facility] [place];[address] | | LAB | | | | [address];[place] | | | | | | [address] | | | | + + + + + + | AST | 28Comment: Testing | 10 - 45 U/L | EXTERNAL | | | | performed at [facility] [place] [place] [facility] [place];[address] | | LAB | | | | [address];[place] | | | | | | [phone] | | | | + + + + + + | ALT | 82 (H)Comment: Testing | 10 - 65 U/L | EXTERNAL | | | | performed at [facility] [place] [place] [facility] [place];[address] | | LAB | | | | [address];[place] | | | | | | [phone] | | | | + + + [...] | | performed at [facility] [place] [place] [facility] [place];888 | mmol/L | LAB | | | | [address];[place] | | | | | | [phone] | | | | + + + + + + | K | 4.1Comment: Testing | 3.5 - 4.9 | EXTERNAL | | | | performed at [facility] [place] [place] [facility] [place];888 | mmol/L | LAB | | | | [address];[place] | | | | | | [address] | | | | + + + + + + | Cl | 106Comment: Testing | 99 - 109 mmol/L | EXTERNAL | | | | performed at [facility] [place] [facility] [place];[address] | | LAB | | | | [address];[place] | | | | | | [phone] | | | | + + + + + + | CO2 | 22 (L)Comment: Testing | 23 - 32 mmol/L | EXTERNAL | | | | performed at [facility] [place] [place] [facility] [place];[address] | | LAB | | | | [address];[place] | | | | | | [phone] | | | | + + + + + + | Anion Gap | 12Comment: Testing | 5 - 20 mmol/L | EXTERNAL | | | | performed at [facility] [place] [place] [facility] [place];[address] | | LAB | | | | [address];[place] | | | | | | [phone] | | | | + + + + + + | Glucose, | 119 (H)Comment: Testing | 65 - 99 mg/dL | EXTERNAL | | | Fasting | performed at [facility] [place] [place] [facility] [place];[address] | | LAB | | | | [address];[place] | | | | | | [phone] | | | | + + + + + + | BUN | 27 (H)Comment: Testing | 8 - 25 mg/dL | EXTERNAL | | | | performed at [facility] [place] [place];[address] | | LAB | | | | [address];[place] | | | | | | [phone] | | | | + + + + + + | Creatinine | 0.70Comment: Testing | 0.70 - 1.30 | EXTERNAL | | | | performed at [facility] [place] [place] [facility] [place];888 | mg/dL | LAB | | | | [address];[place] | | | | | | [address] | | | | + + + + + + | BUN/Creatin | 38Comment: Testing | | EXTERNAL | | | ine Ratio | performed at [facility] [place] [place] [facility] [place];888 | | LAB | | | | [address];[place] | | | | | | [address] | | | | + + + + + + | Calcium | 7.1 (L)Comment: Testing | 8.5 - 10.5 | EXTERNAL | | | | performed at [facility] [place] [place];888 | mg/dL | LAB | | | | [address];[place] | | | | | | [phone] | | | | + + + [...] | | | | | | at [facility] [place] [place];[address];[place] [phone] | | | | + + + [...] | | performed at [facility] [place] [place];888 | mmol/L | LAB | | | | [address];[place], [place] | | | | | | [address] | | | | + + + [...] Jan 20 2015 4:36AM Referring Provider Line: [phone] | | | ID: [id number] | | [...] 2015 4:36AM Referring | | Provider Line: [phone] ID: [id number] | |Lungs/Pleura: Opacity in the [...] 20 2015 4:36AM Referring Provider Line: [phone] ID: [id number] | + + POC Glucose (01/20/2015 12:38 AM PDT) + + + + + + | Component | Value | Ref Range | Performed | Pathologist | | | | | At | Signature | + + + + + + | Glucose, | 130 (H)Comment: Testing | 65 - 99 mg/dL | EXTERNAL | | | Fingerstick | performed at [facility] [place] [place] [facility] [place];8 | | LAB | | | | [address];[place], [place] | | | | | | [address] | | | | + + + [...] | | | Fingerstick | performed at [facility] [place] [place] [facility] [place];888 | | LAB | | | | [address];[place] | | | | | | [address] | | | | + + + [...] | | | Fingerstick | performed at [facility] [place] [facility] [place];888 | | LAB | | | | [address];[place] | | | | | | [address] | | | | + + + [...] | | | Fingerstick | performed at [facility] [place] [place] [facility] [place];88 | | LAB | | | | [address];[place] | | | | | | [phone] | | | | + + + [...] K/uL | LAB | | | | [facility] [place] [place] [facility] [place];[address];[place] [phone] | | | | + + + + + + | RED CELL | 2.48 (L)Comment: Testing | 4.20 - 5.70 | EXTERNAL | | | COUNT | performed at [facility] [place] [place];888 | M/uL | LAB | | | | [address];[place] | | | | | | [phone] | | | | + + + + + + | Hgb | 8.4 (L)Comment: Testing | 13.2 - 17.0 | EXTERNAL | | | | performed at [facility] [place] [place];888 | g/dL | LAB | | | | [address];[place] | | | | | | [phone] | | | | + + + + + + | Hematocrit, | 24.0 (L)Comment: Testing | 39.0 - 50.0 % | EXTERNAL | | | POC | performed at [facility] [place] [place] [facility] [place];[address] | | LAB | | | | [address];[place] | | | | | | [phone] | | | | + + + + + + | MCV | 96.8Comment: Testing | 80.0 - 100.0 fl | EXTERNAL | | | | performed at [facility] [place] [place] [facility] [place];[address] | | LAB | | | | [address];[place] | | | | | | [phone] | | | | + + + + + + | MCH | 33.6Comment: Testing | 27.0 - 34.0 pg | EXTERNAL | | | | performed at [facility] [place] [place] [facility] [place];[address] | | LAB | | | | [address];[place] | | | | | | [address] | | | | + + + + + + | MCHC | 34.8Comment: Testing | 32.0 - 35.5 | EXTERNAL | | | | performed at [facility] [place] [place];888 | g/dL | LAB | | | | [address];[place] | | | | | | [address] | | | | + + + + + + | RDW-CV | 44.6Comment: Testing | 37 - 53 fl | EXTERNAL | | | | performed at [facility] [place] [place] [facility] [place];[address] | | LAB | | | | [address];[place] | | | | | | [phone] | | | | + + + + + + | Platelet | 144 (L)Comment: Testing | 150 - 400 K/uL | EXTERNAL | | | Count | performed at [facility] [place] [place] [facility] [place];888 | | LAB | | | Plasma | [address];[place] | | | | | | [address] | | | | + + + + + + | MPV | 9.9Comment: Testing | fl | EXTERNAL | | | | performed at [facility] [place] [place] [facility] [place];[address] | | LAB | | | | [address];[place] | | | | | | [address] | | | | + + + + + + | Differentia | MANUALComment: Testing | | EXTERNAL | | | l Type | performed at [facility] [place] [place] [facility] [place];[address] | | LAB | | | | [address];[place] | | | | | | [address] | | | | + + + + + + | Segmented | 85Comment: Testing | % | EXTERNAL | | | Neutrophils | performed at [facility] [place] [place] [facility] [place];888 | | LAB | | | Manual | [address];[place] | | | | | | [phone] | | | | + + + + + + | % Bands | 2Comment: Testing | % | EXTERNAL | | | | performed at [facility] [place] [place] [facility] [place];888 | | LAB | | | | [address];[place] | | | | | | [phone] | | | | + + + + + + | Lymphocytes | 6Comment: Testing | % | EXTERNAL | | | Manual | performed at [facility] [place] [place];[address] | | LAB | | | | [address];[place] | | | | | | [address] | | | | + + + + + + | Monocytes | 6Comment: Testing | % | EXTERNAL | | | Manual | performed at [facility] [place] [place];888 | | LAB | | | | [address];[place] | | | | | | [address] | | | | + + + + + + | Eosinophils | 1Comment: Testing | % | EXTERNAL | | | Manual | performed at [facility] [place] [place];[address] | | LAB | | | | [address];[place] | | | | | | [phone] | | | | + + + + + + | Absolute | 9.80 (H)Comment: Testing | 1.90 - 7.40 | EXTERNAL | | | Neutrophils | performed at [facility] [place];888 | K/uL | LAB | | | | [address];[place] | | | | | | [address] | | | | + + + + + + | Bands | 0.23 (H)Comment: Testing | 0.00 - 0.20 | EXTERNAL | | | Manual | performed at [facility] [place];888 | K/uL | LAB | | | | [address];[place] | | | | | | [address] | | | | + + + + + + | Absolute | 0.69 (L)Comment: Testing | 1.00 - 3.90 | EXTERNAL | | | Lymphocytes | performed at [facility] [place];888 | K/uL | LAB | | | | [address];[place] | | | | | | [address] | | | | + + + + + + | Absolute | 0.69Comment: Testing | 0.00 - 0.80 | EXTERNAL | | | Monocytes | performed at [facility] [place];888 | K/uL | LAB | | | | [address];[place] | | | | | | [address] | | | | + + + + + + | Absolute | 0.12Comment: Testing | 0.00 - 0.50 | EXTERNAL | | | Eosinophils | performed at [facility] [place];888 | K/uL | LAB | | | | [address];[place] | | | | | | [address] | | | | + + + + + + | Platelet | DECREASEDComment: | | EXTERNAL | | | Estimate | Testing performed at | | LAB | | | | [facility] [place];[address];[place] [phone] | | | | + + + + + + | RBC | RBC AND PLT MORPHOLOGY | | EXTERNAL | | | Morphology | APPEAR NORMALComment: | | LAB | | | | Testing performed at | | | | | | [facility] [place];[address] [facility] | | | | | | [facility];[place] [address] | | | | + + + [...] | | | es | performed at [facility] [place];[facility] | | LAB | | | | [facility];[place], [place] | | | | | | [address] | | | | + + + [...] | | performed at [facility] [place];888 | | LAB | | | | [address];[place], [place] | | | | | | [address] | | | | + + + [...] | | performed at [facility] [place];888 | | LAB | | | | [address];[place], [place] | | | | | | [address] | | | | + + + [...] | | performed at [facility] [place];888 | | LAB | | | | [address];[place], [place] | | | | | | [address] | | | | + + + [...] | | | Total | performed at [facility] [place];888 | | LAB | | | | [address];[place] | | | | | | [phone] | | | | + + + + + + | Albumin | 1.1 (L)Comment: Testing | 3.3 - 4.8 g/dL | EXTERNAL | | | | performed at [facility] [place];888 | | LAB | | | | [address];[place] | | | | | | [address] | | | | + + + + + + | Bilirubin | 3.0 (H)Comment: Testing | 0.1 - 1.5 mg/dL | EXTERNAL | | | Total | performed at [facility] [place];[address] | | LAB | | | | [address];[place] | | | | | | [address] | | | | + + + + + + | Bilirubin | 2.3 (H)Comment: Testing | 0.0 - 0.3 mg/dL | EXTERNAL | | | Direct | performed at [facility] [place] [place];[address] | | LAB | | | | [address];[place] | | | | | | [phone] | | | | + + + + + + | ALP, | 90Comment: Testing | 35 - 115 U/L | EXTERNAL | | | External | performed at [facility] [place] [place];[address] | | LAB | | | | [address];[place] | | | | | | [phone] | | | | + + + + + + | AST | 26Comment: Testing | 10 - 45 U/L | EXTERNAL | | | | performed at [facility] [place] [place];[address] | | LAB | | | | [address];[place] | | | | | | [phone] | | | | + + + + + + | ALT | 113 (H)Comment: Testing | 10 - 65 U/L | EXTERNAL | | | | performed at [facility] [place] | | [place] | | | | [address];[place] | | | | | | [phone] | | | | + + + [...] | | performed at [facility] [place] | mmol/L | LAB | | | | [address];[place] | | | | | | [phone] | | | | + + + + + + | K | 4.2Comment: Testing | 3.5 - 4.9 | EXTERNAL | | | | performed at [facility] [place] | mmol/L | LAB | | | | [address];[place] | | | | | | [phone] | | | | + + + + + + | Cl | 106Comment: Testing | 99 - 109 mmol/L | EXTERNAL | | | | performed at [facility] [place] | | LAB | | | | [address];[place] | | | | | | [phone] | | | | + + + + + + | CO2 | 26Comment: Testing | 23 - 32 mmol/L | EXTERNAL | | | | performed at [facility] [place] [place] | | LAB | | | | [address];[place] | | | | | | [phone] | | | | + + + + + + | Anion Gap | 10Comment: Testing | 5 - 20 mmol/L | EXTERNAL | | | | performed at [facility] [place] [place] | | LAB | | | | [address];[place] | | | | | | [phone] | | | | + + + + + + | Glucose, | 128 (H)Comment: Testing | 65 - 99 mg/dL | EXTERNAL | | | Fasting | performed [place] [facility] [place] [place] | | LAB | | | | [address];[place] | | | | | | [phone] | | | | + + + + + + | BUN | 23Comment: Testing | 8 - 25 mg/dL | EXTERNAL | | | | performed at [facility] [place] [place] | | LAB | | | | [address];[place] | | | | | | [phone] | | | | + + + + + + | Creatinine | 0.67 (L)Comment: Testing | 0.70 - 1.30 | EXTERNAL | | | | performed at [facility] [place] | mg/dL | LAB | | | | [address];[place] | | | | | | [address] | | | | + + + + + + | BUN/Creatin | 35Comment: Testing | | EXTERNAL | | | ine Ratio | performed at [facility] [place] | | LAB | | | | [address];[place] | | | | | | [address] | | | | + + + + + + | Calcium | 7.2 (L)Comment: Testing | 8.5 - 10.5 | EXTERNAL | | | | performed at [facility] [place]888 | mg/dL | LAB | | | | [facility];[place] | | | | | | [address] | | | | + + + [...] | | | | | | at [facility] [place];[address] | | | | | | [address];[place] [address] | | | | + + + [...] | | | Fingerstick | performed at [facility] [place] | | LAB | | | | [address];[place], [place] | | | | | | [address] | | | | + + + [...] | | | Fingerstick | performed at [facility] [place];[address] | | LAB | | | | [address];[place], [place] | | | | | | [address] | | | | + + + [...] | | | Fingerstick | performed at [facility] [place] [place];[address] | | LAB | | | | [address];[place], [place] | | | | | | [address] | | | | + + + [...] | | | Fingerstick | performed at [facility] [place];888 | | LAB | | | | [address];[place] | | | | | | [address] | | | | + + + [...] K/uL | LAB | | | | [facility] [place];[address] | | | | | | [address];[place] [address] | | | | + + + + + + | RED CELL | 2.79 (L)Comment: Testing | 4.20 - 5.70 | EXTERNAL | | | COUNT | performed at [facility] [place];888 | M/uL | LAB | | | | [address];[place] | | | | | | [address] | | | | + + + + + + | Hgb | 9.0 (L)Comment: Testing | 13.2 - 17.0 | EXTERNAL | | | | performed at [facility] [place]888 | g/dL | LAB | | | | [address];[place] | | | | | | [address] | | | | + + + + + + | Hematocrit, | 27.5 (L)Comment: Testing | 39.0 - 50.0 % | EXTERNAL | | | POC | performed at [facility] [place];[address] | | LAB | | | | [address];[place] | | | | | | [address] | | | | + + + + + + | MCV | 98.3Comment: Testing | 80.0 - 100.0 fl | EXTERNAL | | | | performed at [facility] [place];[address] | | LAB | | | | [address];[place] | | | | | | [address] | | | | + + + + + + | MCH | 32.2Comment: Testing | 27.0 - 34.0 pg | EXTERNAL | | | | performed at [facility] [place];[address] | | LAB | | | | [address];[place] | | | | | | [address] | | | | + + + + + + | MCHC | 32.7Comment: Testing | 32.0 - 35.5 | EXTERNAL | | | | performed at [facility] [place];888 | g/dL | LAB | | | | [address];[place] | | | | | | [address] | | | | + + + + + + | RDW-CV | 45.5Comment: Testing | 37 - 53 fl | EXTERNAL | | | | performed at [facility] [place];[address] | | LAB | | | | [address];[place] | | | | | | [address] | | | | + + + + + + | Platelet | 132 (L)Comment: Testing | 150 - 400 K/uL | EXTERNAL | | | Count | performed at [facility] [place];888 | | LAB | | | Plasma | [address];[place] | | | | | | [address] | | | | + + + + + + | MPV | 9.9Comment: Testing | fl | EXTERNAL | | | | performed at [facility] [place];[address] | | LAB | | | | [address];[place] | | | | | | [address] | | | | + + + + + + | Differentia | MANUALComment: Testing | | EXTERNAL | | | l Type | performed at [facility] [place];[address] | | LAB | | | | [address];[place] | | | | | | [address] | | | | + + + + + + | Nucleated | 1 (H)Comment: Testing | /100WBC | EXTERNAL | | | Red Blood | performed at [facility] [place];888 | | LAB | | | Cells | [address];[place] | | | | | | [address] | | | | + + + + + + | Segmented | 87Comment: Testing | % | EXTERNAL | | | Neutrophils | performed at [facility] [place];[address] | | LAB | | | Manual | [address];[place] | | | | | | [address] | | | | + + + + + + | % | 3Comment: Testing | % | EXTERNAL | | | Metamyelocy | performed at [facility] [place];[address] | | LAB | | | romaine | [address];[place] | | | | | | [address] | | | | + + + + + + | % | 2Comment: Testing | % | EXTERNAL | | | Myelocytes | performed at [facility] [place];[address] | | LAB | | | | [address];[place] | | | | | | [address] | | | | + + + + + + | Lymphocytes | 4Comment: Testing | % | EXTERNAL | | | Manual | performed at [facility] [place];[address] | | LAB | | | | [address];[place] | | | | | | [address] | | | | + + + + + + | Monocytes | 3Comment: Testing | % | EXTERNAL | | | Manual | performed at [facility] [place];[address] | | LAB | | | | [address];[place] | | | | | | [address] | | | | + + + + + + | Eosinophils | 1Comment: Testing | % | EXTERNAL | | | Manual | performed at [facility] [place];[address] | | LAB | | | | [address];[place] | | | | | | [address] | | | | + + + + + + | Absolute | 11.85 (H)Comment: | 1.90 - 7.40 | EXTERNAL | | | Neutrophils | Testing performed at | K/uL | LAB | | | | [facility] [place] [place];[address];[place] [phone] | | | | + + + + + + | Absolute | 0.41 (H)Comment: Testing | K/uL | EXTERNAL | | | Metamyelocy | performed at [facility] [place];[address] | | LAB | | | romaine | [address];[place] | | | | | | [address] | | | | + + + + + + | Absolute | 0.27 (H)Comment: Testing | K/uL | EXTERNAL | | | Myelocytes | performed at [facility] [place] [place];[address] | | LAB | | | | [address];[place] | | | | | | [address] | | | | + + + + + + | Absolute | 0.55 (L)Comment: Testing | 1.00 - 3.90 | EXTERNAL | | | Lymphocytes | performed at [facility] [place] [place];888 | K/uL | LAB | | | | [address];[place] | | | | | | [address] | | | | + + + + + + | Absolute | 0.41Comment: Testing | 0.00 - 0.80 | EXTERNAL | | | Monocytes | performed at [facility] [place] [place];888 | K/uL | LAB | | | | [address];[place] | | | | | | [address] | | | | + + + + + + | Absolute | 0.14Comment: Testing | 0.00 - 0.50 | EXTERNAL | | | Eosinophils | performed at [facility] [place];888 | K/uL | LAB | | | | [address];[place] | | | | | | [address] | | | | + + + + + + | RBC | RBC AND PLT MORPHOLOGY | | EXTERNAL | | | Morphology | APPEAR NORMALComment: | | LAB | | | | Testing performed at | | | | | | [facility] [place] [place];[address] | | | | | | [facility];[place] [address] | | | | + + + [...] | | | es | performed at [facility], [address] | | LAB | | | | [address], | | | | | | [place] [address] | | | | + + + [...] | | performed at [facility] [place] [place];[address] | | LAB | | | | [facility];[place], [place] | | | | | | [address] | | | | + + + [...] | | performed at [facility] [place];[facility] | | LAB | | | | [address];[place] | | | | | | [address] | | | | + + + [...] | | performed at [facility] [place] [place];[address] | | LAB | | | | [address];[place], [place] | | | | | | [address] | | | | + + + [...] | | Last Dose | performed at [facility] [place] [place];[address] | | LAB | | | | [address];[place] | | | | | | [address] | | | | + + + + + + | Time of | UNKNOWNComment: Testing | | EXTERNAL | | | Last Dose | performed at [facility] [place];[address] | | LAB | | | | [address];[place] | | | | | | [phone] | | | | + + + + + + | Digoxin | 0.8 (L)Comment: Testing | 0.90 - 2.00 | EXTERNAL | | | level | performed at [facility] [place];888 | ng/mL | LAB | | | | [address];[place] | | | | | | [address] | | | | + + + [...] | | | Total | performed at [facility] [place] [place];[address] | | LAB | | | | [address];[place] | | | | | | [address] | | | | + + + + + + | Albumin | 1.2 (L)Comment: Testing | 3.3 - 4.8 g/dL | EXTERNAL | | | | performed at [facility] [place];[address] | | LAB | | | | [address];[place] | | | | | | [address] | | | | + + + + + + | Bilirubin | 3.0 (H)Comment: Testing | 0.1 - 1.5 mg/dL | EXTERNAL | | | Total | performed at [facility] [place];[address] | | LAB | | | | [address];[place] | | | | | | [address] | | | | + + + + + + | Bilirubin | 2.5 (H)Comment: Testing | 0.0 - 0.3 mg/dL | EXTERNAL | | | Direct | performed at [facility] [place] [place];[address] | | LAB | | | | [address];[place] | | | | | | [address] | | | | + + + + + + | ALP, | 111Comment: Testing | 35 - 115 U/L | EXTERNAL | | | External | performed at [facility] [place] [place];[address] | | LAB | | | | [address];[place] | | | | | | [address] | | | | + + + + + + | AST | 55 (H)Comment: Testing | 10 - 45 U/L | EXTERNAL | | | | performed at [facility] [place];[address] | | LAB | | | | [address];[place] | | | | | | [address] | | | | + + + + + + | ALT | 197 (H)Comment: Testing | 10 - 65 U/L | EXTERNAL | | | | performed at [facility] [place] [place];[address] | | LAB | | | | [address];[place], [place] | | | | | | [address] | | | | + + + [...] | | performed at [facility] [place] [place];888 | mmol/L | LAB | | | | [address];[place] | | | | | | [address] | | | | + + + + + + | K | 4.4Comment: Testing | 3.5 - 4.9 | EXTERNAL | | | | performed at [facility] [place] [place];888 | mmol/L | LAB | | | | [address];[place] | | | | | | [address] | | | | + + + + + + | Cl | 108Comment: Testing | 99 - 109 mmol/L | EXTERNAL | | | | performed at [facility] [place];[address] | | LAB | | | | [address];[place] | | | | | | [address] | | | | + + + + + + | CO2 | 27Comment: Testing | 23 - 32 mmol/L | EXTERNAL | | | | performed at [facility] [place];[address] | | LAB | | | | [address];[place] | | | | | | [address] | | | | + + + + + + | Anion Gap | 10Comment: Testing | 5 - 20 mmol/L | EXTERNAL | | | | performed at [facility] [place] [place];[address] | | LAB | | | | [address];[place] | | | | | | [address] | | | | + + + + + + | Glucose, | 129 (H)Comment: Testing | 65 - 99 mg/dL | EXTERNAL | | | Fasting | performed at [facility] [place];[address] | | LAB | | | | [address];[place] | | | | | | [address] | | | | + + + + + + | BUN | 25Comment: Testing | 8 - 25 mg/dL | EXTERNAL | | | | performed at [facility] [place];[address] | | LAB | | | | [address];[place] | | | | | | [address] | | | | + + + + + + | Creatinine | 0.61 (L)Comment: Testing | 0.70 - 1.30 | EXTERNAL | | | | performed at [facility] [place] [place];888 | mg/dL | LAB | | | | [address];[place] | | | | | | [address] | | | | + + + + + + | BUN/Creatin | 41Comment: Testing | | EXTERNAL | | | ine Ratio | performed at [facility] [place];[address] | | LAB | | | | [address];[place] | | | | | | [address] | | | | + + + + + + | Calcium | 7.4 (L)Comment: Testing | 8.5 - 10.5 | EXTERNAL | | | | performed at [facility] [place];888 | mg/dL | LAB | | | | [address];[place] | | | | | | [address] | | | | + + + [...] | | | | | | at [facility] [place];[address] [place] [address] | | | | | | [facility];[place] [address] | | | | + + + [...] | | | Fingerstick | performed at [facility] [place] [place];[address] | | LAB | | | | [address];[place] | | | | | | [address] | | | | + + + [...] At | + + + | JOSE EAOTN XR CHEST 1 VIEW 01/17/2015 11:25 PM [...] RODS | | | Testing performed at [facility], [address] | | | [place] [address] | | + + + + +---------+ [...] | | | Fingerstick | performed at [facility] [place] [place];[address] | | LAB | | | | [address];[place] | | | | | | [address] | | | | + + + [...] | + + + | JOSE EATON [place] HEPATOBILIARY SCAN WITH CCK 01/17/2015 2:31 PM [...] | | | Fingerstick | performed at [facility] [place] [place] | | LAB | | | | [address];[place], [place] | | | | | | [address] | | | | + + + [...] | | | Fingerstick | performed at [facility];[address] | | LAB | | | | [address];[place] | | | | | | [address] | | | | + + + [...] | | | Fingerstick | performed at [facility];[address] | | LAB | | | | [address];[place] | | | | | | [address] | | | | + + + [...] | | | | [place] [address] | | | | + + + + + + | RED CELL | 2.78 (L)Comment: Testing | 4.20 - 5.70 | EXTERNAL | | | COUNT | performed at [facility], [address] | [address]/uL | LAB | | | | [address], | | | | | | [place] [address] | | | | + + + + + + | Hgb | 9.2 (L)Comment: Testing | 13.2 - 17.0 | EXTERNAL | | | | performed at [facility], [address] | g/dL | LAB | | | | [address], | | | | | | [place] [address] | | | | + + + + + + | Hematocrit, | 27.1 (L)Comment: Testing | 39.0 - 50.0 % | EXTERNAL | | | POC | performed at [facility], [address] | | LAB | | | | [address], | | | | | | [place] [address] | | | | + + + + + + | MCV | 97.5Comment: Testing | 80.0 - 100.0 fl | EXTERNAL | | | | performed at [facility], [address] | | LAB | | | | [address], | | | | | | [place] [address] | | | | + + + + + + | MCH | 33.1Comment: Testing | 27.0 - 34.0 pg | EXTERNAL | | | | performed at [facility], [address] | | LAB | | | | [address], | | | | | | [place] [address] | | | | + + + + + + | MCHC | 33.9Comment: Testing | 32.0 - 35.5 | EXTERNAL | | | | performed at [facility], [address] | g/dL | LAB | | | | [address], | | | | | | [place] [address] | | | | + + + + + + | RDW-CV | 42.9Comment: Testing | 37 - 53 fl | EXTERNAL | | | | performed at [facility], [address] | | LAB | | | | [address], | | | | | | [place] [address] | | | | + + + + + + | Platelet | 110 (L)Comment: Testing | 150 - 400 K/uL | EXTERNAL | | | Count | performed at [facility], [address] | | LAB | | | Plasma | [address], | | | | | | [place] [address] | | | | + + + + + + | MPV | 10.6Comment: Testing | fl | EXTERNAL | | | | performed at [facility], [address] | | LAB | | | | [address], | | | | | | [place] [address] | | | | + + + + + + | Differentia | MANUALComment: Testing | | EXTERNAL | | | l Type | performed at [facility], [address] | | LAB | | | | [address], | | | | | | [place] [address] | | | | + + + + + + | Segmented | 87Comment: Testing | % | EXTERNAL | | | Neutrophils | performed at [facility], [address] | | LAB | | | Manual | [address], | | | | | | [place] [address] | | | | + + + + + + | % Bands | 3Comment: Testing | % | EXTERNAL | | | | performed at [facility], [address] | | LAB | | | | [address], | | | | | | [place] [address] | | | | + + + + + + | % | 1Comment: Testing | % | EXTERNAL | | | Metamyelocy | performed at [facility], [address] | | LAB | | | [address] | [address], | | | | | | [place] [address] | | | | + + + + + + | % | 1Comment: Testing | % | EXTERNAL | | | Myelocytes | performed at [facility], [address] | | LAB | | | | [address], | | | | | | [place] [address] | | | | + + + + + + | Lymphocytes | 4Comment: Testing | % | EXTERNAL | | | Manual | performed at [facility], [address] | | LAB | | | | [address], | | | | | | [place] [address] | | | | + + + + + + | Eosinophils | 4Comment: Testing | % | EXTERNAL | | | Manual | performed at [facility], [address] | | LAB | | | | [address], | | | | | | [place] [address] | | | | + + + + + + | Absolute | 9.46 (H)Comment: Testing | 1.90 - 7.40 | EXTERNAL | | | Neutrophils | performed at [facility], [address] | K/uL | LAB | | | | [address], | | | | | | [place] [address] | | | | + + + + + + | Bands | 0.33 (H)Comment: Testing | 0.00 - 0.20 | EXTERNAL | | | Manual | performed at [facility], [address] | K/uL | LAB | | | | [address], | | | | | | [place] [address] | | | | + + + + + + | Absolute | 0.11 (H)Comment: Testing | K/uL | EXTERNAL | | | Metamyelocy | performed at [facility], [address] | | LAB | | | [address] | [address], | | | | | | [place] [address] | | | | + + + + + + | Absolute | 0.11 (H)Comment: Testing | K/uL | EXTERNAL | | | Myelocytes | performed at [facility], [address] | | LAB | | | | [address], | | | | | | [place] [address] | | | | + + + + + + | Absolute | 0.43 (L)Comment: Testing | 1.00 - 3.90 | EXTERNAL | | | Lymphocytes | performed at [facility], [address] | K/uL | LAB | | | | [address], | | | | | | [place] [address] | | | | + + + + + + | Absolute | 0.43Comment: Testing | 0.00 - 0.50 | EXTERNAL | | | Eosinophils | performed at [facility], [address] | K/uL | LAB | | | | [address], | | | | | | [place] [address] | | | | + + + + + + | RBC | NORMAL RBC MORPHComment: | | EXTERNAL | | | Morphology | NORMAL PLT MORPHTesting | | LAB | | | | performed at [facility], [address] | | | | | [address], | | | | | | [place] [address] | | | | + + [...] EXTERNAL | | | | performed at [facility], [address] | | LAB | | | | [facility], | | | | | | [place] [address] | | | | + + + [...] EXTERNAL | | | | performed at [facility], [address] | | LAB | | | | [address], | | | | | | [place] [address] | | | | + + + [...] | | LAB | | | | [facility];[address] | | | | | | [facility];[place] [address] | | | | + + + [...] | | performed at [facility];[address] | | LAB | | | | [address];[place] | | | | | | [address] | | | | + + + [...] | | | Total | performed at [facility];[address] | | LAB | | | | [address];[place] | | | | | | [address] | | | | + + + + + + | Albumin | 1.3 (L)Comment: Testing | 3.3 - 4.8 g/dL | EXTERNAL | | | | performed at [facility];[address] | | LAB | | | | [address];[place] | | | | | | [address] | | | | + + + + + + | Bilirubin | 3.5 (H)Comment: Testing | 0.1 - 1.5 mg/dL | EXTERNAL | | | Total | performed at [facility];[address] | | LAB | | | | [address];[place] | | | | | | [address] | | | | + + + + + + | Bilirubin | 2.7 (H)Comment: Testing | 0.0 - 0.3 mg/dL | EXTERNAL | | | Direct | performed at [facility];[address] | | LAB | | | | [address];[place] | | | | | | [address] | | | | + + + + + + | ALP, | 125 (H)Comment: Testing | 35 - 115 U/L | EXTERNAL | | | External | performed at [facility];[address] | | LAB | | | | [address];[place] | | | | | | [address] | | | | + + + + + + | AST | 173 (H)Comment: Testing | 10 - 45 U/L | EXTERNAL | | | | performed at [facility];[address] | | LAB | | | | [address];[place] | | | | | | [address] | | | | + + + + + + | ALT | 340 (H)Comment: Testing | 10 - 65 U/L | EXTERNAL | | | | performed at [facility];[address] | | LAB | | | | [address];[place] | | | | | | [address] | | | | + + + [...] | | | | [place] [address] | | | | + + + + + + | K | 4.0Comment: Testing | 3.5 - 4.9 | EXTERNAL | | | | performed at [facility], [address] | mmol/L | LAB | | | | [address], | | | | | | [place] [address] | | | | + + + + + + | Cl | 105Comment: Testing | 99 - 109 mmol/L | EXTERNAL | | | | performed at [facility], [address] | | LAB | | | | [address], | | | | | | [place] [address] | | | | + + + + + + | CO2 | 30Comment: Testing | 23 - 32 mmol/L | EXTERNAL | | | | performed at [facility], [address] | | LAB | | | | [address], | | | | | | [place] [address] | | | | + + + + + + | Anion Gap | 8Comment: Testing | 5 - 20 mmol/L | EXTERNAL | | | | performed at [facility], [address] | | LAB | | | | [address], | | | | | | [place] [address] | | | | + + + + + + | Glucose, | 104 (H)Comment: Testing | 65 - 99 mg/dL | EXTERNAL | | | Fasting | performed at [facility], [address] | | LAB | | | | [address], | | | | | | [place] [address] | | | | + + + + + + | BUN | 31 (H)Comment: Testing | 8 - 25 mg/dL | EXTERNAL | | | | performed at [facility], [address] | | LAB | | | | [address], | | | | | | [place] [address] | | | | + + + + + + | Creatinine | 0.64 (L)Comment: Testing | 0.70 - 1.30 | EXTERNAL | | | | performed at [facility], [address] | mg/dL | LAB | | | | [address], | | | | | | [place] [address] | | | | + + + + + + | BUN/Creatin | 48Comment: Testing | | EXTERNAL | | | ine Ratio | performed at [facility], [address] | | LAB | | | | [address], | | | | | | [place] [address] | | | | + + + + + + | Calcium | 7.8 (L)Comment: Testing | 8.5 - 10.5 | EXTERNAL | | | | performed at [facility], [address] | mg/dL | LAB | | | | [address], | | | | | | [place] [address] | | | | + + + [...] | | | | [place] [address] | | | | + + + [...] | | | Fingerstick | [place] [facility] [place] | | LAB | | | | [address];[place], [place] | | | | | | [phone] | | | | + + + [...] | | | Fingerstick | [place] [facility] [place] | | LAB | | | | [address];[place] | | | | | | [phone] | | | | + + + [...] | | | Fingerstick | performed at [facility] [place] | | LAB | | | | [address];[place] | | | | | | [address] | | | | + + + [...] | | | Fingerstick | performed at [facility] [place] | | LAB | | | | [address];[place] | | | | | | [phone] | | | | + + + [...] | | | Fingerstick | performed at [facility] [place] | | LAB | | | | [address];[place], [place] | | | | | | [address] | | | | + + + [...] | | | Fingerstick | performed at [facility] [place] | | LAB | | | | [address];[place], [place] | | | | | | [address] | | | | + + + [...] | | | Fingerstick | performed at [facility] [place] | | LAB | | | | [address];[place], [place] | | | | | | [address] | | | | + + + [...] | | performed at [facility] [place] | K/uL | LAB | | | | [address];[place] | | | | | | [phone] | | | | + + + + + + | RED CELL | 2.90 (L)Comment: Testing | 4.20 - 5.70 | EXTERNAL | | | COUNT | performed at [facility] [place] | M/uL | LAB | | | | [address];[place] | | | | | | [phone] | | | | + + + + + + | Hgb | 9.8 (L)Comment: Testing | 13.2 - 17.0 | EXTERNAL | | | | performed at [facility] [place] | g/dL | LAB | | | | [address];[place] | | | | | | [phone] | | | | + + + + + + | Hematocrit, | 28.3 (L)Comment: Testing | 39.0 - 50.0 % | EXTERNAL | | | POC | performed at [facility] [place] | | LAB | | | | [address];[place] | | | | | | [address] | | | | + + + + + + | MCV | 97.7Comment: Testing | 80.0 - 100.0 fl | EXTERNAL | | | | performed at [facility] [place];[address] | | LAB | | | | [address];[place] | | | | | | [address] | | | | + + + + + + | MCH | 33.6Comment: Testing | 27.0 - 34.0 pg | EXTERNAL | | | | performed at [facility] [place];[address] | | LAB | | | | [address];[place] | | | | | | [address] | | | | + + + + + + | MCHC | 34.4Comment: Testing | 32.0 - 35.5 | EXTERNAL | | | | performed at [facility] [place] | g/dL | LAB | | | | [address];[place] | | | | | | [address] | | | | + + + + + + | RDW-CV | 44.2Comment: Testing | 37 - 53 fl | EXTERNAL | | | | performed at [facility] [place];[address] | | LAB | | | | [address];[place] | | | | | | [address] | | | | + + + + + + | Platelet | 127 (L)Comment: Testing | 150 - 400 K/uL | EXTERNAL | | | Count | performed at [facility] [place];[address] | | LAB | | | Plasma | [address];[place] | | | | | | [address] | | | | + + + + + + | MPV | 9.7Comment: Testing | fl | EXTERNAL | | | | performed at [facility] [place];[address] | | LAB | | | | [address];[place] | | | | | | [address] | | | | + + + + + + | Differentia | MANUALComment: Testing | | EXTERNAL | | | l Type | performed at [facility] [place];[address] | | LAB | | | | [address];[place] | | | | | | [address] | | | | + + + + + + | Segmented | 83Comment: Testing | % | EXTERNAL | | | Neutrophils | performed at [facility] [place];[address] | | LAB | | | Manual | [address];[place] | | | | | | [address] | | | | + + + + + + | % Bands | 2Comment: Testing | % | EXTERNAL | | | | performed at [facility] [place];[address] | | LAB | | | | [address];[place] | | | | | | [address] | | | | + + + + + + | Lymphocytes | 2Comment: Testing | % | EXTERNAL | | | Manual | performed at [facility] [place];[address] | | LAB | | | | [address];[place] | | | | | | [address] | | | | + + + + + + | Monocytes | 11Comment: Testing | % | EXTERNAL | | | Manual | performed at [facility] [place];[address] | | LAB | | | | [address];[place] | | | | | | [address] | | | | + + + + + + | Eosinophils | 2Comment: Testing | % | EXTERNAL | | | Manual | performed at [facility] [place];[address] | | LAB | | | | [address];[place] | | | | | | [address] | | | | + + + + + + | Absolute | 8.96 (H)Comment: Testing | 1.90 - 7.40 | EXTERNAL | | | Neutrophils | performed at [facility] [place] | K/uL | LAB | | | | [address];[place] | | | | | | [address] | | | | + + + + + + | Bands | 0.22 (H)Comment: Testing | 0.00 - 0.20 | EXTERNAL | | | Manual | performed at [facility] [place] | K/uL | LAB | | | | [address];[place] | | | | | | [address] | | | | + + + + + + | Absolute | 0.22 (L)Comment: Testing | 1.00 - 3.90 | EXTERNAL | | | Lymphocytes | performed at [facility] [place] | K/uL | LAB | | | | [address];[place] | | | | | | [address] | | | | + + + + + + | Absolute | 1.19 (H)Comment: Testing | 0.00 - 0.80 | EXTERNAL | | | Monocytes | performed at [facility] [place] | K/uL | LAB | | | | [address];[place] | | | | | | [address] | | | | + + + + + + | Absolute | 0.22Comment: Testing | 0.00 - 0.50 | EXTERNAL | | | Eosinophils | performed at [facility] [place];[address] | K/uL | LAB | | | | [address];[place] | | | | | | [address] | | | | + + + + + + | RBC | RBC AND PLT MORPHOLOGY | | EXTERNAL | | | Morphology | APPEAR NORMALComment: | | LAB | | | | Testing performed at | | | | | | [facility] [place];[address] [place] [address] | | | | | | [facility];[place] [address] | | | | + + + [...] [address];[place] [address] | | | | + + + [...] | | performed at [facility] [place];888 | mmol/L | LAB | | | | [address];[place], [place] | | | | | | [address] | | | | + + + [...] | | performed at [facility] [place];8 | | LAB | | | | [address];[place] | | | | | | [address] | | | | + + + [...] | | | Total | performed at [facility] [place];[address] | | LAB | | | | [address];[place] | | | | | | [address] | | | | + + + + + + | Albumin | 1.4 (L)Comment: Testing | 3.3 - 4.8 g/dL | EXTERNAL | | | | performed at [facility] [place];[address] | | LAB | | | | [address];[place] | | | | | | [address] | | | | + + + + + + | Bilirubin | 5.2 (H)Comment: Testing | 0.1 - 1.5 mg/dL | EXTERNAL | | | Total | performed at [facility] [place];[address] | | LAB | | | | [address];[place] | | | | | | [address] | | | | + + + + + + | Bilirubin | 4.4 (H)Comment: Testing | 0.0 - 0.3 mg/dL | EXTERNAL | | | Direct | performed at [facility] [place];[address] | | LAB | | | | [address];[place] | | | | | | [address] | | | | + + + + + + | ALP, | 131 (H)Comment: Testing | 35 - 115 U/L | EXTERNAL | | | External | performed at [facility] [place];[address] | | LAB | | | | [address];[place] | | | | | | [address] | | | | + + + + + + | AST | 289 (H)Comment: Testing | 10 - 45 U/L | EXTERNAL | | | | performed at [facility] [place];[address] | | LAB | | | | [address];[place] | | | | | | [address] | | | | + + + + + + | ALT | 442 (H)Comment: Testing | 10 - 65 U/L | EXTERNAL | | | | performed at [facility] [place];[address] | | LAB | | | | [address];[place] | | | | | | [address] | | | | + + + [...] | | | Fingerstick | performed at [facility] [place];[address] | | LAB | | | | [address];[place], [place] | | | | | | [address] | | | | + + + [...] | | performed at [facility] [place];888 | mmol/L | LAB | | | | [address];[place], [place] | | | | | | [address] | | | | + + + [...] | | | Fingerstick | performed at [facility] [place];[address] | | LAB | | | | [address];[place] | | | | | | [address] | | | | + + + [...] | | | Fingerstick | performed at [facility] [place];[facility] | | LAB | | | | [address];[place], [place] | | | | | | [address] | | | | + + + [...] | | performed at [facility] [place];888 | K/uL | LAB | | | | [address];[place], [place] | | | | | | [address] | | | | + + + + + + | RED CELL | 2.87 (L)Comment: Testing | 4.20 - 5.70 | EXTERNAL | | | COUNT | performed at [facility] [place];[address] | M/uL | LAB | | | | [address];[place] | | | | | | [address] | | | | + + + + + + | Hgb | 9.4 (L)Comment: Testing | 13.2 - 17.0 | EXTERNAL | | | | performed at [facility] [place];888 | g/dL | LAB | | | | [address];[place] | | | | | | [address] | | | | + + + + + + | Hematocrit, | 27.9 (L)Comment: Testing | 39.0 - 50.0 % | EXTERNAL | | | POC | performed at [facility] [place];[address] | | LAB | | | | [address];[place] | | | | | | [address] | | | | + + + + + + | MCV | 97.5Comment: Testing | 80.0 - 100.0 fl | EXTERNAL | | | | performed at [facility] [place];[address] | | LAB | | | | [address];[place] | | | | | | [address] | | | | + + + + + + | MCH | 32.7Comment: Testing | 27.0 - 34.0 pg | EXTERNAL | | | | performed at [facility] [place];[address] | | LAB | | | | [address];[place] | | | | | | [address] | | | | + + + + + + | MCHC | 33.5Comment: Testing | 32.0 - 35.5 | EXTERNAL | | | | performed at [facility] [place];888 | g/dL | LAB | | | | [address];[place] | | | | | | [address] | | | | + + + + + + | RDW-CV | 43.8Comment: Testing | 37 - 53 fl | EXTERNAL | | | | performed at [facility] [place];[address] | | LAB | | | | [address];[place] | | | | | | [address] | | | | + + + + + + | Platelet | 114 (L)Comment: Testing | 150 - 400 K/uL | EXTERNAL | | | Count | performed at [facility] [place];[address] | | LAB | | | Plasma | [address];[place] | | | | | | [address] | | | | + + + + + + | MPV | 9.4Comment: Testing | fl | EXTERNAL | | | | performed at [facility] [place];[address] | | LAB | | | | [address];[place] | | | | | | [address] | | | | + + + + + + | Differentia | MANUALComment: Testing | | EXTERNAL | | | l Type | performed at [facility] [place];[address] | | LAB | | | | [address];[place] | | | | | | [address] | | | | + + + + + + | Segmented | 69Comment: Testing | % | EXTERNAL | | | Neutrophils | performed at [facility] [place];[address] | | LAB | | | Manual | [address];[place] | | | | | | [address] | | | | + + + + + + | % Bands | 21Comment: Testing | % | EXTERNAL | | | | performed at [facility] [place];[address] | | LAB | | | | [address];[place] | | | | | | [address] | | | | + + + + + + | Lymphocytes | 3Comment: Testing | % | EXTERNAL | | | Manual | performed at [facility] [place];[address] | | LAB | | | | [address];[place] | | | | | | [address] | | | | + + + + + + | Monocytes | 5Comment: Testing | % | EXTERNAL | | | Manual | performed at [facility] [place];[address] | | LAB | | | | [address];[place] | | | | | | [address] | | | | + + + + + + | Eosinophils | 2Comment: Testing | % | EXTERNAL | | | Manual | performed at [facility] [place];[address] | | LAB | | | | [address];[place] | | | | | | [address] | | | | + + + + + + | Absolute | 6.49Comment: Testing | 1.90 - 7.40 | EXTERNAL | | | Neutrophils | performed at [facility] [place];888 | K/uL | LAB | | | | [address];[place] | | | | | | [address] | | | | + + + + + + | Bands | 1.97 (H)Comment: Testing | 0.00 - 0.20 | EXTERNAL | | | Manual | performed at [facility] [place];888 | K/uL | LAB | | | | [address];[place] | | | | | | [address] | | | | + + + + + + | Absolute | 0.28 (L)Comment: Testing | 1.00 - 3.90 | EXTERNAL | | | Lymphocytes | performed at [facility] [place];888 | K/uL | LAB | | | | [address];[place] | | | | | | [address] | | | | + + + + + + | Absolute | 0.47Comment: Testing | 0.00 - 0.80 | EXTERNAL | | | Monocytes | performed at [facility] [place];888 | K/uL | LAB | | | | [address];[place] | | | | | | [address] | | | | + + + + + + | Absolute | 0.19Comment: Testing | 0.00 - 0.50 | EXTERNAL | | | Eosinophils | performed at [facility] [place];888 | K/uL | LAB | | | | [address];[place] | | | | | | [address] | | | | + + + + + + | Platelet | DECREASEDComment: | | EXTERNAL | | | Estimate | Testing performed at | | LAB | | | | [facility] [place];[address];[place] [phone] | | | | + + + + + + | RBC | 1+Comment: GIANT | | EXTERNAL | | | Morphology | PLATELETSNORMAL RBC | | LAB | | | | MORPH1+TOXIC | | | | | | GRANULATIONTesting | | | | | | performed at [facility] [place];888 | | | | | | [facility];[place], [place] | | | | | | [address] | | | | | | | [...] | | performed at [facility] [place];888 | mmol/L | LAB | | | | [address];[place] | | | | | | [address] | | | | + + + + + + | K | 4.0Comment: Testing | 3.5 - 4.9 | EXTERNAL | | | | performed at [facility] [place];888 | mmol/L | LAB | | | | [address];[place] | | | | | | [address] | | | | + + + + + + | Cl | 105Comment: Testing | 99 - 109 mmol/L | EXTERNAL | | | | performed at [facility] [place];[address] | | LAB | | | | [address];[place] | | | | | | [address] | | | | + + + + + + | CO2 | 32Comment: Testing | 23 - 32 mmol/L | EXTERNAL | | | | performed at [facility] [place];[address] | | LAB | | | | [address];[place] | | | | | | [address] | | | | + + + + + + | Anion Gap | 9Comment: Testing | 5 - 20 mmol/L | EXTERNAL | | | | performed at [facility] [place];[address] | | LAB | | | | [address];[place] | | | | | | [address] | | | | + + + + + + | Glucose, | 120 (H)Comment: Testing | 65 - 99 mg/dL | EXTERNAL | | | Fasting | performed at [facility] [place];[address] | | LAB | | | | [address];[place] | | | | | | [address] | | | | + + + + + + | BUN | 24Comment: Testing | 8 - 25 mg/dL | EXTERNAL | | | | performed at [facility] [place];[address] | | LAB | | | | [address];[place] | | | | | | [address] | | | | + + + + + + | Creatinine | 0.71Comment: Testing | 0.70 - 1.30 | EXTERNAL | | | | performed at [facility] [place];888 | mg/dL | LAB | | | | [address];[place] | | | | | | [address] | | | | + + + + + + | BUN/Creatin | 34Comment: Testing | | EXTERNAL | | | ine Ratio | performed at [facility] [place];[address] | | LAB | | | | [address];[place] | | | | | | [address] | | | | + + + + + + | Calcium | 7.5 (L)Comment: Testing | 8.5 - 10.5 | EXTERNAL | | | | performed at [facility] [place];888 | mg/dL | LAB | | | | [address];[place] | | | | | | [address] | | | | + + + [...] | | | | | | at [facility] [place];[address];[place] [address] | | | | + + + [...] | | performed at [facility] [place];888 | mmol/L | LAB | | | | [address];[place] | | | | | | [address] | | | | + + + [...] | | | Fingerstick | performed at [facility] [place];888 | | LAB | | | | [address];[place], [place] | | | | | | [address] | | | | + + + [...] | | | (Calc) | performed at [facility] [place];888 | mmol/L | LAB | | | | [address];[place] | | | | | | [address] | | | | + + + + + + | pH, Bld | 7.442Comment: Testing | 7.300 - 7.450 | EXTERNAL | | | | performed at [facility] [place];[address] | | LAB | | | | [address];[place], [place] | | | | | | [address] | | | | + + + [...] | | | Fingerstick | performed at [facility] [place];888 | | LAB | | | | [address];[place], [place] | | | | | | [address] | | | | + + + [...] | | performed at [facility] [place];888 | K/uL | LAB | | | | [address];[place] | | | | | | [address] | | | | + + + + + + | RED CELL | 2.81 (L)Comment: Testing | 4.20 - 5.70 | EXTERNAL | | | COUNT | performed at [facility] [place];888 | M/uL | LAB | | | | [address];[place] | | | | | | [address] | | | | + + + + + + | Hgb | 9.3 (L)Comment: Testing | 13.2 - 17.0 | EXTERNAL | | | | performed at [facility] [place];888 | g/dL | LAB | | | | [address];[place] | | | | | | [address] | | | | + + + + + + | Hematocrit, | 27.5 (L)Comment: Testing | 39.0 - 50.0 % | EXTERNAL | | | POC | performed at [facility] [place];[address] | | LAB | | | | [address];[place] | | | | | | [address] | | | | + + + + + + | MCV | 97.9Comment: Testing | 80.0 - 100.0 fl | EXTERNAL | | | | performed at [facility] [place];888 | | LAB | | | | [address];[place] | | | | | | [address] | | | | + + + + + + | MCH | 33.1Comment: Testing | 27.0 - 34.0 pg | EXTERNAL | | | | performed at [facility] [place];[address] | | LAB | | | | [address];[place] | | | | | | [address] | | | | + + + + + + | MCHC | 33.8Comment: Testing | 32.0 - 35.5 | EXTERNAL | | | | performed at [facility] [place];888 | g/dL | LAB | | | | [address];[place] | | | | | | [address] | | | | + + + + + + | RDW-CV | 43.3Comment: Testing | 37 - 53 fl | EXTERNAL | | | | performed at [facility] [place];[address] | | LAB | | | | [address];[place] | | | | | | [address] | | | | + + + + + + | Platelet | 117 (L)Comment: Testing | 150 - 400 K/uL | EXTERNAL | | | Count | performed at [facility] [place];888 | | LAB | | | Plasma | [address];[place] | | | | | | [address] | | | | + + + + + + | MPV | 9.9Comment: Testing | fl | EXTERNAL | | | | performed at [facility] [place];[address] | | LAB | | | | [address];[place] | | | | | | [address] | | | | + + + + + + | Differentia | MANUALComment: Testing | | EXTERNAL | | | l Type | performed at [facility] [place];[address] | | LAB | | | | [address];[place] | | | | | | [address] | | | | + + + + + + | Nucleated | 1 (H)Comment: Testing | /100WBC | EXTERNAL | | | Red Blood | performed at [facility] [place];888 | | LAB | | | Cells | [address];[place] | | | | | | [address] | | | | + + + + + + | Segmented | 82Comment: Testing | % | EXTERNAL | | | Neutrophils | performed at [facility] [place];888 | | LAB | | | Manual | [address];[place] | | | | | | [address] | | | | + + + + + + | % Bands | 3Comment: Testing | % | EXTERNAL | | | | performed at [facility] [place] [place];[address] | | LAB | | | | [address];[place] | | | | | | [address] | | | | + + + + + + | % | 2Comment: Testing | % | EXTERNAL | | | Metamyelocy | performed at [facility] [place];888 | | LAB | | | romaine | [address];[place] | | | | | | [address] | | | | + + + + + + | Lymphocytes | 5Comment: Testing | % | EXTERNAL | | | Manual | performed at [facility] [place];[address] | | LAB | | | | [address];[place] | | | | | | [address] | | | | + + + + + + | Reactive | 1Comment: Testing | % | EXTERNAL | | | Lymphocytes | performed at [facility] [place];[address] | | LAB | | | | [address];[place] | | | | | | [address] | | | | + + + + + + | Monocytes | 1Comment: Testing | % | EXTERNAL | | | Manual | performed at [facility] [place] [place];[address] | | LAB | | | | [address];[place] | | | | | | [address] | | | | + + + + + + | Eosinophils | 6Comment: Testing | % | EXTERNAL | | | Manual | performed at [facility] [place] [place];[address] | | LAB | | | | [address];[place] | | | | | | [address] | | | | + + + + + + | Absolute | 6.87Comment: Testing | 1.90 - 7.40 | EXTERNAL | | | Neutrophils | performed at [facility] [place] [place];888 | K/uL | LAB | | | | [address];[place] | | | | | | [address] | | | | + + + + + + | Bands | 0.25 (H)Comment: Testing | 0.00 - 0.20 | EXTERNAL | | | Manual | performed at [facility] [place] [place];888 | K/uL | LAB | | | | [address];[place] | | | | | | [address] | | | | + + + + + + | Absolute | 0.17 (H)Comment: Testing | K/uL | EXTERNAL | | | Metamyelocy | performed at [facility] [place] [place];888 | | LAB | | | romaine | [address];[place] | | | | | | [address] | | | | + + + + + + | Absolute | 0.42 (L)Comment: Testing | 1.00 - 3.90 | EXTERNAL | | | Lymphocytes | performed at [facility] [place] [place];888 | K/uL | LAB | | | | [address];[place] | | | | | | [address] | | | | + + + + + + | Reactive | 0.08Comment: Testing | K/uL | EXTERNAL | | | Lymphocytes | performed at [facility] [place] [place];[address] | | LAB | | | | [address];[place] | | | | | | [address] | | | | + + + + + + | Absolute | 0.08Comment: Testing | 0.00 - 0.80 | EXTERNAL | | | Monocytes | performed at [facility] [place] [place];888 | K/uL | LAB | | | | [address];[place] | | | | | | [address] | | | | + + + + + + | Absolute | 0.50Comment: Testing | 0.00 - 0.50 | EXTERNAL | | | Eosinophils | performed at [facility] [place] [place];888 | K/uL | LAB | | | | [address];[place] | | | | | | [address] | | | | + + + + + + | Platelet | DECREASEDComment: | | EXTERNAL | | | Estimate | Testing performed at | | LAB | | | | [facility] [place];[address];[place] [address] | | | | + + + + + + | RBC | RBC AND PLT MORPHOLOGY | | EXTERNAL | | | Morphology | APPEAR NORMALComment: | | LAB | | | | Testing performed at | | | | | | [facility] [place];[address];[place] [phone] | | | | + + + [...] | | | es | performed at [facility], [address] | | LAB | | | | [place], | | | | | | [place] [id number] | | | | + + + [...] EXTERNAL | | | | performed at [facility], [address] | mg/dL | LAB | | | | [place], | | | | | | [place] [id number] | | | | + + + [...] EXTERNAL | | | | performed at [facility], [address] | | LAB | | | | [place], | | | | | | [place] [address] | | | | + + + [...] | | | | [place] [address] | | | | + + + [...] | | | | [place] [address] | | | | + + + + + + | Albumin | 2.2 (L)Comment: Testing | 3.3 - 4.8 g/dL | EXTERNAL | | | | performed at [facility], [address] | | LAB | | | | [place], | | | | | | [place] [address] | | | | + + + + + + | Bilirubin | 5.3 (H)Comment: Testing | 0.1 - 1.5 mg/dL | EXTERNAL | | | Total | performed at [facility], [address] | | LAB | | | | [address], | | | | | | [place] [address] | | | | + + + + + + | Bilirubin | 4.0 (H)Comment: Testing | 0.0 - 0.3 mg/dL | EXTERNAL | | | Direct | performed at [facility], [address] | | LAB | | | | [address], | | | | | | [place] [address] | | | | + + + + + + | ALP, | 103Comment: Testing | 35 - 115 U/L | EXTERNAL | | | External | performed at [facility], [address] | | LAB | | | | [address], | | | | | | [place] [address] | | | | + + + + + + | AST | 307 (H)Comment: Testing | 10 - 45 U/L | EXTERNAL | | | | performed at [facility], [address] | | LAB | | | | [address], | | | | | | [place] [address] | | | | + + + + + + | ALT | 399 (H)Comment: Testing | 10 - 65 U/L | EXTERNAL | | | | performed at [facility], [address] | | LAB | | | | [place], | | | | | | [place] [address] | | | | + + + [...] | | | | [place] [address] | | | | + + + + + + | K | 3.7Comment: Testing | 3.5 - 4.9 | EXTERNAL | | | | performed at [facility], [address] | mmol/L | LAB | | | | [address], | | | | | | [place] [address] | | | | + + + + + + | Cl | 103Comment: Testing | 99 - 109 mmol/L | EXTERNAL | | | | performed at [facility], [address] | | LAB | | | | [address], | | | | | | [place] [address] | | | | + + + + + + | CO2 | 31Comment: Testing | 23 - 32 mmol/L | EXTERNAL | | | | performed at [facility], [address] | | LAB | | | | [address], | | | | | | [place] [address] | | | | + + + + + + | Anion Gap | 12Comment: Testing | 5 - 20 mmol/L | EXTERNAL | | | | performed at [facility], [address] | | LAB | | | | [address], | | | | | | [place] [address] | | | | + + + + + + | Glucose, | 99Comment: Testing | 65 - 99 mg/dL | EXTERNAL | | | Fasting | performed at [facility], [address] | | LAB | | | | [address], | | | | | | [place] [address] | | | | + + + + + + | BUN | 25Comment: Testing | 8 - 25 mg/dL | EXTERNAL | | | | performed at [facility], [address] | | LAB | | | | [address], | | | | | | [place] [address] | | | | + + + + + + | Creatinine | 0.78Comment: Testing | 0.70 - 1.30 | EXTERNAL | | | | performed at [facility], [address] | mg/dL | LAB | | | | [address], | | | | | | [place] [address] | | | | + + + + + + | BUN/Creatin | 32Comment: Testing | | EXTERNAL | | | ine Ratio | performed at [facility], [address] | | LAB | | | | [address], | | | | | | [place] [address] | | | | + + + + + + | Calcium | 8.0 (L)Comment: Testing | 8.5 - 10.5 | EXTERNAL | | | | performed at [facility], [address] | mg/dL | LAB | | | | [facility], | | | | | | [place] [address] | | | | + + + [...] | | | | | | [facility], | | | | | | [place] [address] | | | | + + + [...] | | | Fingerstick | performed at [facility] [place] | | LAB | | | | [address];[place] | | | | | | [address] | | | | + + + [...] | | | Fingerstick | performed at [facility];888 | | LAB | | | | [address];[place] | | | | | | [address] | | | | + + + [...] | | | Fingerstick | performed at [facility];[address] | | LAB | | | | [address];[place] | | | | | | [address] | | | | + + + [...] | | performed at [facility];888 | mmol/L | LAB | | | | [address];[place], [place] | | | | | | [address] | | | | + + + [...] | | | Fingerstick | performed at [facility];[address] | | LAB | | | | [address];[place] | | | | | | [address] | | | | + + + [...] | | | Fingerstick | performed at [facility];[address] | | LAB | | | | [address];[place], [place] | | | | | | [address] | | | | + + + [...] | | | Fingerstick | performed at [facility];[address] | | LAB | | | | [address];[place], [place] | | | | | | [address] | | | | + + + [...] | | performed at [facility];888 | mmol/L | LAB | | | | [facility];[place], [place] | | | | | | [address] | | | | + + + [...] | | | Fingerstick | performed at [facility];[address] | | LAB | | | | [address];[place] | | | | | | [address] | | | | + + + [...] | | | Fingerstick | performed at [facility] | | LAB | | | | [address];[place] | | | | | | [address] | | | | + + + [...] | | | Fingerstick | performed at [facility];[address] | | LAB | | | | [address];[place], [place] | | | | | | [address] | | | | + + + [...] | | | Fingerstick | performed at [facility] [place];[facility] | | LAB | | | | [address];[place], [place] | | | | | | [address] | | | | + + + [...] | | performed at [facility];888 | mmol/L | LAB | | | | [address];[place], [place] | | | | | | [address] | | | | + + + [...] | | performed at [facility];888 | | LAB | | | | [address];[place], [place] | | | | | | [address] | | | | + + + [...] | | performed at [facility];888 | | LAB | | | | [address];[place], [place] | | | | | | [address] | | | | + + + [...] | | | Fingerstick | performed at [facility];[address] | | LAB | | | | [address];[place] | | | | | | [address] | | | | + + + [...] | | | Fingerstick | performed at [facility];[address] | | LAB | | | | [address];[place], [place] | | | | | | [address] | | | | + + + [...] | | | Fingerstick | performed at [facility];[address] | | LAB | | | | [address];[place] | | | | | | [address] | | | | + + + [...] | | | Fingerstick | performed at [facility];888 | | LAB | | | | [address];[place], [place] | | | | | | [address] | | | | + + [...] | | | | | | at [facility];[address] | | | | | [address];[place] [address] | | | | + + + [...] | | performed at [facility];888 | K/uL | LAB | | | | [address];[place] | | | | | | [address] | | | | + + + + + + | RED CELL | 2.77 (L)Comment: Testing | 4.20 - 5.70 | EXTERNAL | | | COUNT | performed at [facility];888 | M/uL | LAB | | | | [address];[place] | | | | | | [address] | | | | + + + + + + | Hgb | 9.5 (L)Comment: Testing | 13.2 - 17.0 | EXTERNAL | | | | performed at [facility];888 | g/dL | LAB | | | | [address];[place] | | | | | | [address] | | | | + + + + + + | Hematocrit, | 27.2 (L)Comment: Testing | 39.0 - 50.0 % | EXTERNAL | | | POC | performed at [facility];888 | | LAB | | | | [address];[place] | | | | | | [address] | | | | + + + + + + | MCV | 98.2Comment: Testing | 80.0 - 100.0 fl | EXTERNAL | | | | performed at [facility];888 | | LAB | | | | [address];[place] | | | | | | [address] | | | | + + + + + + | MCH | 34.5 (H)Comment: Testing | 27.0 - 34.0 pg | EXTERNAL | | | | performed at [facility];888 | | LAB | | | | [address];[place] | | | | | | [address] | | | | + + + + + + | MCHC | 35.1Comment: Testing | 32.0 - 35.5 | EXTERNAL | | | | performed at [facility];888 | g/dL | LAB | | | | [address];[place] | | | | | | [address] | | | | + + + + + + | RDW-CV | 44.2Comment: Testing | 37 - 53 fl | EXTERNAL | | | | performed at [facility];[address] | | LAB | | | | [address];[place] | | | | | | [address] | | | | + + + + + + | Platelet | 105 (L)Comment: Testing | 150 - 400 K/uL | EXTERNAL | | | Count | performed at [facility];888 | | LAB | | | Plasma | [address];[place] | | | | | | [address] | | | | + + + + + + | MPV | 9.2Comment: Testing | fl | EXTERNAL | | | | performed at [facility];[address] | | LAB | | | | [address];[place] | | | | | | [address] | | | | + + + + + + | Differentia | MANUALComment: Testing | | EXTERNAL | | | l Type | performed at [facility];[address] | | LAB | | | | [address];[place] | | | | | | [address] | | | | + + + + + + | Segmented | 83Comment: Testing | % | EXTERNAL | | | Neutrophils | performed at [facility];[address] | | LAB | | | Manual | [address];[place] | | | | | | [address] | | | | + + + + + + | % Bands | 7Comment: Testing | % | EXTERNAL | | | | performed at [facility];[address] | | LAB | | | | [address];[place] | | | | | | [address] | | | | + + + + + + | Lymphocytes | 8Comment: Testing | % | EXTERNAL | | | Manual | performed at [facility];[address] | | LAB | | | | [address];[place] | | | | | | [address] | | | | + + + + + + | Monocytes | 2Comment: Testing | % | EXTERNAL | | | Manual | performed at [facility];[address] | | LAB | | | | [address];[place] | | | | | | [address] | | | | + + + + + + | Absolute | 5.54Comment: Testing | 1.90 - 7.40 | EXTERNAL | | | Neutrophils | performed at [facility];888 | K/uL | LAB | | | | [address];[place] | | | | | | [address] | | | | + + + + + + | Bands | 0.47 (H)Comment: Testing | 0.00 - 0.20 | EXTERNAL | | | Manual | performed at [facility];888 | K/uL | LAB | | | | [address];[place] | | | | | | [address] | | | | + + + + + + | Absolute | 0.53 (L)Comment: Testing | 1.00 - 3.90 | EXTERNAL | | | Lymphocytes | performed at [facility];888 | K/uL | LAB | | | | [address];[place] | | | | | | [address] | | | | + + + + + + | Absolute | 0.13Comment: Testing | 0.00 - 0.80 | EXTERNAL | | | Monocytes | performed at [facility];888 | K/uL | LAB | | | | [address];[place] | | | | | | [address] | | | | + + + + + + | RBC | RBC AND PLT MORPHOLOGY | | EXTERNAL | | | Morphology | APPEAR NORMALComment: | | LAB | | | | Testing performed at | | | | | | [facility];[address];[place] [address] | | | | + + + [...] | | performed at [facility];[address] | | LAB | | | | [address];[place], [place] | | | | | | [address] | | | | + + + [...] | | performed at [facility];[address] | | LAB | | | | [address];[place] | | | | | | [address] | | | | + + + [...] | | Last Dose | performed at [facility];888 | | LAB | | | | [address];[place] | | | | | | [address] | | | | + + + + + + | Time of | UNKNOWNComment: Testing | | EXTERNAL | | | Last Dose | performed at [facility];[address] | | LAB | | | | [address];[place] | | | | | | [address] | | | | + + + + + + | Digoxin | 0.9Comment: Testing | 0.90 - 2.00 | EXTERNAL | | | level | performed at [facility];888 | ng/mL | LAB | | | | [address];[place] | | | | | | [address] | | | | + + + [...] | | performed at [facility];888 | mmol/L | LAB | | | | [address];[place] | | | | | | [address] | | | | + + + + + + | K | 3.1 (L)Comment: Testing | 3.5 - 4.9 | EXTERNAL | | | | performed at [facility];888 | mmol/L | LAB | | | | [address];[place] | | | | | | [address] | | | | + + + + + + | Cl | 110 (H)Comment: Testing | 99 - 109 mmol/L | EXTERNAL | | | | performed at [facility];[address] | | LAB | | | | [address];[place] | | | | | | [address] | | | | + + + + + + | CO2 | 31Comment: Testing | 23 - 32 mmol/L | EXTERNAL | | | | performed at [facility];[address] | | LAB | | | | [address];[place] | | | | | | [address] | | | | + + + + + + | Anion Gap | 5Comment: Testing | 5 - 20 mmol/L | EXTERNAL | | | | performed at [facility];[address] | | LAB | | | | [address];[place] | | | | | | [address] | | | | + + + + + + | Glucose, | 95Comment: Testing | 65 - 99 mg/dL | EXTERNAL | | | Fasting | performed at [facility];[address] | | LAB | | | | [address];[place] | | | | | | [address] | | | | + + + + + + | BUN | 26 (H)Comment: Testing | 8 - 25 mg/dL | EXTERNAL | | | | performed at [facility];[address] | | LAB | | | | [address];[place] | | | | | | [address] | | | | + + + + + + | Creatinine | 0.61 (L)Comment: Testing | 0.70 - 1.30 | EXTERNAL | | | | performed at [facility];888 | mg/dL | LAB | | | | [address];[place] | | | | | | [address] | | | | + + + + + + | BUN/Creatin | 43Comment: Testing | | EXTERNAL | | | ine Ratio | performed at [facility];[address] | | LAB | | | | [address];[place] | | | | | | [address] | | | | + + + + + + | Calcium | 7.4 (L)Comment: Testing | 8.5 - 10.5 | EXTERNAL | | | | performed at [facility];888 | mg/dL | LAB | | | | [address];[place] | | | | | | [address] | | | | + + + [...] | | | | | | at [facility];[address] | | | | | [address];[place] [phone] | | | | + + + [...] | | | Fingerstick | performed at [facility];888 | | LAB | | | | [address];[place] | | | | | | [address] | | | | + + + [...] | | | Fingerstick | performed at [facility];[address] | | LAB | | | | [address];[place] | | | | | | [address] | | | | + + + [...] | | | Fingerstick | performed at [facility];[address] | | LAB | | | | [address];[place], [place] | | | | | | [address] | | | | + + + [...] | | | Fingerstick | performed at [facility];[address] | | LAB | | | | [address];[place], [place] | | | | | | [address] | | | | + + + [...] | | | Fingerstick | performed at [facility];[address] | | LAB | | | | [address];[place] | | | | | | [address] | | | | + + + [...] | | | Fingerstick | performed at [facility];[address] | | LAB | | | | [address];[place], [place] | | | | | | [address] | | | | + + + [...] | | | Fingerstick | performed at [facility] | | LAB | | | | [address];[place], [place] | | | | | | [address] | | | | + + + [...] | | | | [place] [address] | | | | + + [...] EXTERNAL | | | | performed at [facility], [address] | | LAB | | | | [address], | | | | | | [place] [address] | | | | + + + [...] EXTERNAL | | | | performed at [facility], [address] | | LAB | | | | [address], | | | | | | [place] [address] | | | | + + + [...] | | | Fingerstick | performed at [facility];[address] | | LAB | | | | [address];[place] | | | | | | [address] | | | | + + + [...] | | | Fingerstick | performed at [facility];[address] | | LAB | | | | [address];[place] | | | | | | [address] | | | | + + + [...] | | | Fingerstick | performed at [facility];[address] | | LAB | | | | [address];[place], [place] | | | | | | [address] | | | | + + + [...] | | | Fingerstick | performed at [facility];[address] | | LAB | | | | [address];[place], [place] | | | | | | [address] | | | | + + + [...] | | | Fingerstick | performed at [facility];[address] | | LAB | | | | [address];[place], [place] | | | | | | [address] | | | | + + + [...] | | | Fingerstick | performed at [facility];[address] | | LAB | | | | [address];[place] | | | | | | [address] | | | | + + + [...] | | | Fingerstick | performed at [facility];[address] | | LAB | | | | [address];[place], [place] | | | | | | [address] | | | | + + + [...] | | performed at [facility];888 | K/uL | LAB | | | | [address];[place] | | | | | | [address] | | | | + + + + + + | RED CELL | 2.58 (L)Comment: Testing | 4.20 - 5.70 | EXTERNAL | | | COUNT | performed at [facility];888 | M/uL | LAB | | | | [address];[place] | | | | | | [address] | | | | + + + + + + | Hgb | 8.3 (L)Comment: Testing | 13.2 - 17.0 | EXTERNAL | | | | performed at [facility];888 | g/dL | LAB | | | | [address];[place] | | | | | | [address] | | | | + + + + + + | Hematocrit, | 25.3 (L)Comment: Testing | 39.0 - 50.0 % | EXTERNAL | | | POC | performed at [facility];[address] | | LAB | | | | [address];[place] | | | | | | [address] | | | | + + + + + + | MCV | 97.9Comment: Testing | 80.0 - 100.0 fl | EXTERNAL | | | | performed at [facility];888 | | LAB | | | | [address];[place] | | | | | | [address] | | | | + + + + + + | MCH | 32.0Comment: Testing | 27.0 - 34.0 pg | EXTERNAL | | | | performed at [facility];[address] | | LAB | | | | [address];[place] | | | | | | [address] | | | | + + + + + + | MCHC | 32.7Comment: Testing | 32.0 - 35.5 | EXTERNAL | | | | performed at [facility];888 | g/dL | LAB | | | | [address];[place] | | | | | | [address] | | | | + + + + + + | RDW-CV | 42.4Comment: Testing | 37 - 53 fl | EXTERNAL | | | | performed at [facility];[address] | | LAB | | | | [address];[place] | | | | | | [address] | | | | + + + + + + | Platelet | 121 (L)Comment: Testing | 150 - 400 K/uL | EXTERNAL | | | Count | performed at [facility];888 | | LAB | | | Plasma | [address];[place] | | | | | | [address] | | | | + + + + + + | MPV | 8.9Comment: Testing | fl | EXTERNAL | | | | performed at [facility];[address] | | LAB | | | | [address];[place] | | | | | | [address] | | | | + + + + + + | Differentia | MANUALComment: Testing | | EXTERNAL | | | l Type | performed at [facility];[address] | | LAB | | | | [address];[place] | | | | | | [address] | | | | + + + + + + | Segmented | 82Comment: Testing | % | EXTERNAL | | | Neutrophils | performed at [facility];888 | | LAB | | | Manual | [address];[place] | | | | | | [address] | | | | + + + + + + | % Bands | 8Comment: Testing | % | EXTERNAL | | | | performed at [facility];[address] | | LAB | | | | [address];[place] | | | | | | [address] | | | | + + + + + + | Lymphocytes | 7Comment: Testing | % | EXTERNAL | | | Manual | performed at [facility];[address] | | LAB | | | | [address];[place] | | | | | | [address] | | | | + + + + + + | Monocytes | 3Comment: Testing | % | EXTERNAL | | | Manual | performed at [facility];[address] | | LAB | | | | [address];[place] | | | | | | [address] | | | | + + + + + + | Absolute | 9.02 (H)Comment: Testing | 1.90 - 7.40 | EXTERNAL | | | Neutrophils | performed at [facility];888 | K/uL | LAB | | | | [address];[place] | | | | | | [address] | | | | + + + + + + | Bands | 0.88 (H)Comment: Testing | 0.00 - 0.20 | EXTERNAL | | | Manual | performed at [facility];888 | K/uL | LAB | | | | [address];[place] | | | | | | [address] | | | | + + + + + + | Absolute | 0.77 (L)Comment: Testing | 1.00 - 3.90 | EXTERNAL | | | Lymphocytes | performed at [facility];888 | K/uL | LAB | | | | [address];[place] | | | | | | [address] | | | | + + + + + + | Absolute | 0.33Comment: Testing | 0.00 - 0.80 | EXTERNAL | | | Monocytes | performed at [facility];888 | K/uL | LAB | | | | [address];[place] | | | | | | [address] | | | | + + + + + + | Platelet | DECREASEDComment: | | EXTERNAL | | | Estimate | Testing performed at | | LAB | | | | [facility];[address];[place] [phone] | | | | + + + + + + | RBC | RBC AND PLT MORPHOLOGY | | EXTERNAL | | | Morphology | APPEAR NORMALComment: | | LAB | | | | Testing performed at | | | | | | [facility];[address];[place] [phone] | | | | + + + [...] | | performed at [facility];[address] | | LAB | | | | [address];[place], [place] | | | | | | [address] | | | | + + + [...] | | performed at [facility];888 | | LAB | | | | [address] [facility];[place], [place] | | | | | | [address] | | | | + + [...] | | performed at [facility];888 | mmol/L | LAB | | | | [address];[place] | | | | | | [address] | | | | + + + + + + | K | 3.2 (L)Comment: Testing | 3.5 - 4.9 | EXTERNAL | | | | performed at [facility];888 | mmol/L | LAB | | | | [address];[place] | | | | | | [address] | | | | + + + + + + | Cl | 107Comment: Testing | 99 - 109 mmol/L | EXTERNAL | | | | performed at [facility];[address] | | LAB | | | | [address];[place] | | | | | | [address] | | | | + + + + + + | CO2 | 25Comment: Testing | 23 - 32 mmol/L | EXTERNAL | | | | performed at [facility];[address] | | LAB | | | | [address];[place] | | | | | | [address] | | | | + + + + + + | Anion Gap | 9Comment: Testing | 5 - 20 mmol/L | EXTERNAL | | | | performed at [facility];[address] | | LAB | | | | [address];[place] | | | | | | [address] | | | | + + + + + + | Glucose, | 111 (H)Comment: Testing | 65 - 99 mg/dL | EXTERNAL | | | Fasting | performed at [facility];[address] | | LAB | | | | [address];[place] | | | | | | [address] | | | | + + + + + + | BUN | 26 (H)Comment: Testing | 8 - 25 mg/dL | EXTERNAL | | | | performed at [facility] | | [place] | | | | [address];[place] | | | | | | [phone] | | | | + + + + + + | Creatinine | 0.76Comment: Testing | 0.70 - 1.30 | EXTERNAL | | | | performed at [facility] [place] | mg/dL | LAB | | | | [address];[place] | | | | | | [id number] | | | | + + + + + + | BUN/Creatin | 34Comment: Testing | | EXTERNAL | | | ine Ratio | [place] [facility] [place] | | LAB | | | | [address];[place] | | | | | | [phone] | | | | + + + + + + | Calcium | 7.5 (L)Comment: Testing | 8.5 - 10.5 | EXTERNAL | | | | performed [place] [facility] [place] | mg/dL | LAB | | | | [address];[place] | | | | | | [phone] | | | | + + + [...] | | | | | | at [facility] [place] [facility] [place] | | | [address];[place] [phone] | | | | + + + [...] | | | Fingerstick | performed at [facility] [place] [place] [facility] [place] | | LAB | | | | [address];[place] | | | | | | [...] | | | Fingerstick | performed at [facility] [place] [place] [facility] [place] | | LAB | | | | [address];[place] | | | | | | [phone] [...] | | | Fingerstick | performed at [facility] [place] [place] [facility] [place] | | LAB | | | | [address];[place], [place] | | | | | | [address] | | | | + + + [...] | | | Fingerstick | performed at [facility] [place] [place] [facility] [place] | | LAB | | | | [address];[place], [place] | | | | | | [phone] | | | | + + + [...] | | | Fingerstick | performed at [facility] [place] [place] [facility] [place] | | LAB | | | | [address] Justice;[place], [place] | | | | | | [address] | | | | + + + [...] | | | Fingerstick | performed at [facility] | | LAB | | | | Tony Justice;[place] | | | | | | [address] | | | | + + + [...] | | | Fingerstick | performed at [facility];888 | | LAB | | | | Tony [place] | | | | | | [address] | | | | + + + [...] | | | Fingerstick | performed at [facility];[address] | | LAB | | | | Tony Justice;[place] | | | | | | [address] | | | | + + + [...] | | | Fingerstick | performed at [facility];[address] | | LAB | | | | [address];[place], [place] | | | | | | [address] | | | | + + + [...] | | | Fingerstick | performed at [facility];[address] | | LAB | | | | [address];[place] | | | | | | [address] | | | | + + + [...] GROWTH | | | Testing performed at [facility], | | | [address] [place] [address] | | + + + + +---------+ [...] | | | Fingerstick | performed at [facility] | | LAB | | | | Tony Justice;[place] | | | | | | [address] | | | | + + + [...] GROWTH | | | Testing performed at [facility], | | | [address] [place] [address] | | + + + + +---------+ [...] | | | Fingerstick | performed at [facility];[address] | | LAB | | | | [address];[place] | | | | | | [address] | | | | + + + [...] | | | Fingerstick | performed at [facility];[address] | | LAB | | | | [address];[place] | | | | | | [address] | | | | + + + [...] | | | Fingerstick | performed at [facility];888 | | LAB | | | | [address];[place] | | | | | | [address] | | | | + + + [...] | | | Fingerstick | performed at [facility];888 | | LAB | | | | Tony Justice;[place], [place] | | | | | | [address] | | | | + + + [...] | | | Fingerstick | performed at [facility];888 | | LAB | | | | [address];[place], [place] | | | | | | [address] | | | | + + [...] | | | Fingerstick | performed at [facility] | | LAB | | | | Tony Justice;[place] | | | | | | [address] [...] | | | Fingerstick | performed at [facility];888 | | LAB | | | | [address] Justice;[place] | | | | | | [address] | | | | + + + [...] | | | Fingerstick | performed at [facility];888 | | LAB | | | | Tony Justice;[place] | | | | | | [phone] | | | | + + + [...] | | | Fingerstick | performed at [facility];888 | | LAB | | | | Tony Justice;[place], [place] | | | | | | [address] | | | | + + + [...] | | | Fingerstick | performed at [facility];[address] | | LAB | | | | [address];[place], [place] | | | | | | [address] | | | | + + + [...] EXTERNAL | | | | performed at [facility], [address] | K/uL | LAB | | | | [address] [place], | | | | | | [place] [address] | | | | + + + + + + | RED CELL | 2.49 (L)Comment: Testing | 4.20 - 5.70 | EXTERNAL | | | COUNT | performed at [facility], [address] | M/uL | LAB | | | | [address] [place], | | | | | | [place] [address] | | | | + + + + + + | Hgb | 8.4 (L)Comment: Testing | 13.2 - 17.0 | EXTERNAL | | | | performed at [facility], [address] | g/dL | LAB | | | | [address] [place], | | | | | | [place] [address] | | | | + + + + + + | Hematocrit, | 24.4 (L)Comment: Testing | 39.0 - 50.0 % | EXTERNAL | | | POC | performed at [facility], [address] | | LAB | | | | [address], | | | | | | [place] [address] | | | | + + + + + + | MCV | 97.8Comment: Testing | 80.0 - 100.0 fl | EXTERNAL | | | | performed at [facility], [address] | | LAB | | | | [address], | | | | | | [place] [address] | | | | + + + + + + | MCH | 33.8Comment: Testing | 27.0 - 34.0 pg | EXTERNAL | | | | performed at [facility], [address] | | LAB | | | | [address], | | | | | | [place] [address] | | | | + + + + + + | MCHC | 34.5Comment: Testing | 32.0 - 35.5 | EXTERNAL | | | | performed at [facility], [address] | g/dL | LAB | | | | [address], | | | | | | [place] [address] | | | | + + + + + + | RDW-CV | 41.6Comment: Testing | 37 - 53 fl | EXTERNAL | | | | performed at [facility], [address] | | LAB | | | | [address], | | | | | | [place] [address] | | | | + + + [...] | | | | [place] [address] | | | | + + + + + + | Differentia | MANUALComment: Testing | | EXTERNAL | | | l Type | performed at [facility], [address] | | LAB | | | | [address], | | | | | | [place] [address] | | | | + + + + + + | Segmented | 65Comment: Testing | % | EXTERNAL | | | Neutrophils | performed at [facility], [address] | | LAB | | | Manual | [address], | | | | | | [place] [address] | | | | + + + + + + | % Bands | 32Comment: Testing | % | EXTERNAL | | | | performed at [facility], [address] | | LAB | | | | [address] [place], | | | | | | [place] [address] | | | | + + + + + + | % | 2Comment: Testing | % | EXTERNAL | | | Metamyelocy | performed at [facility], [address] | | LAB | | | [address], | | | | | | [place] [address] | | | | + + + + + + | Lymphocytes | 1Comment: Testing | % | EXTERNAL | | | Manual | performed at [facility], [address] | | LAB | | | | [address], | | | | | | [place] [address] | | | | + + + + + + | Absolute | 6.87Comment: Testing | 1.90 - 7.40 | EXTERNAL | | | Neutrophils | performed at [facility], [address] | K/uL | LAB | | | | [address], | | | | | | [place] [address] | | | | + + + + + + | Bands | 3.38 (H)Comment: Testing | 0.00 - 0.20 | EXTERNAL | | | Manual | performed at [facility], [address] | K/uL | LAB | | | | [address], | | | | | | [place] [address] | | | | + + + + + + | Absolute | 0.21 (H)Comment: Testing | K/uL | EXTERNAL | | | Metamyelocy | performed at [facility], [address] | | LAB | | | [address] | [address], | | | | | | [place] [address] | | | | + + + + + + | Absolute | 0.11 (L)Comment: Testing | 1.00 - 3.90 | EXTERNAL | | | Lymphocytes | performed at [facility], [address] | K/uL | LAB | | | | [address], | | | | | | [place] [address] | | | | + + + + + + | RBC | RBC AND PLT MORPHOLOGY | | EXTERNAL | | | Morphology | APPEAR NORMALComment: | | LAB | | | | Testing performed at | | | | | | [facility], [address] [facility] | | | | | | [place] | | | | | | [address] | | | | + + + [...] EXTERNAL | | | | performed at [facility], [address] | | LAB | | | | [address], | | | | | | [place] [address] | | | | + + + [...] | | | | [place] [address] | | | | + + + [...] + + | Hemoglobin | 5.0Comment: The Italian | 4.0 - 6.0 % | EXTERNAL [...] | | | | | performed at [facility], [address] | | | | | | [address] [facility] [place], | | | | | | [place] [address] | | | | + + + [...] | | | | | performed at [facility], [address] | | | | | | [facility], | | | | | | [place] [address] | | | | + + + [...] | | | | [place] [address] | | | | + + + + + + | K | 3.5Comment: Testing | 3.5 - 4.9 | EXTERNAL | | | | performed at [facility], [address] | mmol/L | LAB | | | | [address], | | | | | | [place] [address] | | | | + + + + + + | Cl | 105Comment: Testing | 99 - 109 mmol/L | EXTERNAL | | | | performed at [facility], [address] | | LAB | | | | [address], | | | | | | [place] [address] | | | | + + + + + + | CO2 | 23Comment: Testing | 23 - 32 mmol/L | EXTERNAL | | | | performed at [facility], [address] | | LAB | | | | [address] [place], | | | | | | [place] [address] | | | | + + + + + + | Anion Gap | 11Comment: Testing | 5 - 20 mmol/L | EXTERNAL | | | | performed at [facility], [address] | | LAB | | | | [address], | | | | | | [place] [address] | | | | + + + + + + | Glucose, | 130 (H)Comment: Testing | 65 - 99 mg/dL | EXTERNAL | | | Fasting | performed at [facility], [address] | | LAB | | | | [address], | | | | | | [place] [address] | | | | + + + + + + | BUN | 15Comment: Testing | 8 - 25 mg/dL | EXTERNAL | | | | performed at [facility], [address] | | LAB | | | | [address], | | | | | | [place] [address] | | | | + + + + + + | Creatinine | 0.72Comment: Testing | 0.70 - 1.30 | EXTERNAL | | | | performed at [facility], [address] | mg/dL | LAB | | | | [address], | | | | | | [place] [address] | | | | + + + + + + | BUN/Creatin | 21Comment: Testing | | EXTERNAL | | | ine Ratio | performed at [facility], [address] | | LAB | | | | [address], | | | | | | [place] [address] | | | | + + + + + + | Calcium | 7.8 (L)Comment: Testing | 8.5 - 10.5 | EXTERNAL | | | | performed at [facility], [address] | mg/dL | LAB | | | | [address], | | | | | | [place] [address] | | | | + + + [...] | | | | | | at [facility], [address] | | | | | | [address], | | | | | | [place] [address] | | | | + + + [...] | | | Fingerstick | performed at [facility];[address] | | LAB | | | | [address];[place] | | | | | | [address] | | | | + + + [...] | | | Fingerstick | performed at [facility];8 | | LAB | | | | [address];[place], [place] | | | | | | [address] | | | | + + + [...] | | | Fingerstick | performed at [facility];[address] | | LAB | | | | [address];[place], [place] | | | | | | [address] | | | | + + + [...] | | performed at [facility] [place];[facility] | | LAB | | | | [facility];[place], [place] | | | | | | [address] | | | | + + + [...] | | | Random | performed at [facility] [place];[facility] | | LAB | | | | [address];[place] | | | | | | [address] | | | | + + + [...] | | performed at [facility];888 | mmol/L | LAB | | | | [address];[place] | | | | | | [address] | | | | + + + + + + | K | 3.1 (L)Comment: Testing | 3.5 - 4.9 | EXTERNAL | | | | performed at [facility];[address] | mmol/L | LAB | | | | [address];[place] | | | | | | [address] | | | | + + + + + + | Cl | 105Comment: Testing | 99 - 109 mmol/L | EXTERNAL | | | | performed at [facility];[address] | | LAB | | | | [address];[place] | | | | | | [address] | | | | + + + + + + | CO2 | 22 (L)Comment: Testing | 23 - 32 mmol/L | EXTERNAL | | | | performed at [facility];[address] | | LAB | | | | [address];[place] | | | | | | [address] | | | | + + + + + + | Anion Gap | 12Comment: Testing | 5 - 20 mmol/L | EXTERNAL | | | | performed at [facility];[address] | | LAB | | | | [address];[place] | | | | | | [address] | | | | + + + + + + | Glucose, | 245 (H)Comment: Testing | 65 - 99 mg/dL | EXTERNAL | | | Fasting | performed at [facility] [place] [place];[address] | | LAB | | | | [address];[place] | | | | | | [address] | | | | + + + + + + | BUN | 15Comment: Testing | 8 - 25 mg/dL | EXTERNAL | | | | performed at [facility] [place] [place];[address] | | LAB | | | | [address];[place] | | | | | | [address] | | | | + + + + + + | Creatinine | 0.84Comment: Testing | 0.70 - 1.30 | EXTERNAL | | | | performed at [facility];[address] | mg/dL | LAB | | | | [address];[place] | | | | | | [address] | | | | + + + + + + | BUN/Creatin | 18Comment: Testing | | EXTERNAL | | | ine Ratio | performed at [facility] [place];[address] | | LAB | | | | [address];[place] | | | | | | [address] | | | | + + + + + + | Calcium | 7.3 (L)Comment: Testing | 8.5 - 10.5 | EXTERNAL | | | | performed at [facility];[address] | mg/dL | LAB | | | | [address];[place] | | | | | | [address] | | | | + + + [...] | | | | | | at [facility];[address] [place] [address] | | | | | | vd;[place] [address] | | | | + + + [...] | | | Fingerstick | performed at [facility];[address] | | LAB | | | | [address];[place] | | | | | | [address] | | | | + + + [...] | | | Fingerstick | performed at [facility];[address] | | LAB | | | | [address];[place], [place] | | | | | | [address] | | | | + + + [...] GROWTH | | | Testing performed at [facility], [address] | | | [place] [address] | | + + + + +---------+ [...] | | | Fingerstick | performed at [facility];[address] | | LAB | | | | [address];[place], [place] | | | | | | [...] | | performed at [facility];8 | | LAB | | | | [address];[place], [place] | | | | | | [address] | | | | + + + [...] | | | regurgitation is present. 6. Lpvv-cf-xbyyllau tricuspid regurgitation | | | present. 7. [...] | Moderate mitral regurgitation is present. 6. Voqo-bc-dnesaaks | | | tricuspid regurgitation present. 7. [...] structurally normal. Tricuspid Valve: | | | Rryo-sa-dxeclirb tricuspid regurgitation present. Tricuspid Valve: | | [...] 0.31 m/s TV Dec | | | [place]: 2.85 m/s2 TV Dec Time: 143.08 ms TV E Shade: 0.40 m/s | | | TV E/A Ratio: 1.30 Creative Services Manager: JAYCEE Authenticated by: Attila | | | [...] | impaired.5. Moderate mitral regurgitation is present.6. Ivny-gi-ppmldots tricuspid | | regurgitation present.7. There is [...] | tricuspid valve appears structurally normal.Tricuspid Valve: Drnh-hq-fnmmkohi tricuspid | | regurgitation present.Tricuspid Valve: There [...] (A-L): 35.80 ml/m2LAAs | | A2C: 18.62 bb2GYQON A-L A2C: 55.53 mlLAESV MOD A2C: 52.66 mlLALs A2C: 5.30 | | cmLAAs A4C: 21.73 [id number] A-L A4C: 69.59 mlLAESV MOD A4C: 63.41 mlLALs A4C: | | 5.76 cmHR: 100.23 BPMAV maxP.95 mmHgAV meanP.97 mmHgAV Vmax: 1.11 m/Svetlana | | Vmean: 0.83 m/Svetlana VTI: 18.56 cmAVA Vmax: 2.21 cm2AVA (VTI): 2.49 ub1CWWL Dopp: | | 2.57 l/brjv5CMJX Dopp: 4.66 l/minHR: 100.81 BPMLVOT maxP.16 mmHgLVOT [...] 2.62 m/sTV A Shade: 0.31 m/sTV Dec [place]: 2.85 | | m/s2TV Dec Time: 143.08 msTV E Shade: 0.40 m/sTV E/A Ratio: 1.30 Creative Services Manager: | | GDAuthenticated by: Attila Yepez MDReport [...] Moderate mitral regurgitation is | | present.6. Tgms-qk-agellzgb tricuspid regurgitation present.7. There is mild pulmonary [...] A Shade: 0.31 m/s | |TV Dec [place]: 2.85 m/s2 | |TV Dec Time: 143.08 ms | |TV E Shade: 0.40 m/s | |TV E/A Ratio: 1.30 | | | |Creative Services Manager: GD | |Authenticated by: Attila Yepez MD [...] Moderate mitral regurgitation is present. | |6. Ychl-ni-gvetoumv tricuspid regurgitation present. | |7. There is mild pulmonary hypertension. | + + MRSA NAAT (01/12/2015 7:59 AM PDT) + + | Specimen | + + | | + + + + + | Narrative | Performed At | + + + | SOURCE NARES(NOSE) | EXTERNAL LAB | | Testing performed at [facility];[address] [place] [address];[place] [address] MRSA PCR | | | NEGATIVE Testing performed at | | | [address];[place] [address] | | + + + + +---------+ [...] NIGHAT | | | Testing performed at [facility], [address] [facility], | | | [place] [address] Suscepibility for - ESCHERICHIA COLI | | [...] | | | | | | ACUTE FL Testing | | | | | | performed at [facility];[address] | | | | | | [address];[place], [place] | | | | | | [address] | | | | + + + [...] | | performed at [facility];888 | mmol/L | LAB | | | | [address];[place], [place] | | | | | | [address] | | | | + + + + + + | K | 3.8Comment: SLT | 3.5 - 4.9 | EXTERNAL | | | | HEMOLYSISTesting | mmol/L | LAB | | | | performed at [facility];[address] | | | | | | [address];[place] | | | | | | [address] | | | | + + + + + + | Cl | 114 (H)Comment: Testing | 99 - 109 mmol/L | EXTERNAL | | | | performed at [facility];[address] | | LAB | | | | [address];[place] | | | | | | [address] | | | | + + + + + + | CO2 | 17 (L)Comment: Testing | 23 - 32 mmol/L | EXTERNAL | | | | performed at [facility];[address] | | LAB | | | | [address];[place] | | | | | | [address] | | | | + + + + + + | Anion Gap | 13Comment: Testing | 5 - 20 mmol/L | EXTERNAL | | | | performed at [facility];[address] | | LAB | | | | [address];[place] | | | | | | [address] | | | | + + + + + + | Glucose, | 96Comment: Testing | 65 - 99 mg/dL | EXTERNAL | | | Fasting | performed at [facility];[address] | | LAB | | | | [address];[place] | | | | | | [address] | | | | + + + + + + | BUN | 17Comment: Testing | 8 - 25 mg/dL | EXTERNAL | | | | performed at [facility];[address] | | LAB | | | | [address];[place] | | | | | | [address] | | | | + + + + + + | Creatinine | 1.00Comment: Testing | 0.70 - 1.30 | EXTERNAL | | | | performed at [facility];888 | mg/dL | LAB | | | | [address];[place] | | | | | | [address] | | | | + + + + + + | BUN/Creatin | 17Comment: Testing | | EXTERNAL | | | ine Ratio | performed at [facility];[address] | | LAB | | | | [address];[place] | | | | | | [address] | | | | + + + + + + | Calcium | 6.7 (L)Comment: Testing | 8.5 - 10.5 | EXTERNAL | | | | performed at [facility];888 | mg/dL | LAB | | | | [address];[place] | | | | | | [address] | | | | + + + [...] | | | | | | at [facility];[address] | | | | | | [address];[place] [phone] | | | | + + + [...] 6:44AM | | | Referring Provider Line: [phone] ID: [id number] | | + + + [...] Jan 12 2015 6:44AM Referring Provider Line: [phone] ID: [id number] | | | |IMPRESSION: | [...] 12 2015 6:44AM Referring Provider Sharla e: [phone] ID: [id number] | + + Lactic Acid (01/12/2015 5:43 AM PDT) + + + + + + | Component | Value | Ref Range | Performed | Pathologist | | | | | At | Signature | + + + + + + | Lactate | 2.0Comment: Testing | 0.4 - 2.0 | EXTERNAL | | | | performed at [facility];[address] | mmol/L | LAB | | | | [address];[place], [place] | | | | | | [address] | | | | + + + [...] | | | Fingerstick | performed at [facility];[address] | | LAB | | | | [address];[place] | | | | | | [address] | | | | + + + [...] 5:22AM Referring | | | Provider Line: [phone] ID: [id number] | | + + + [...] 2015 5:22AM | | Referring Provider Line: [phone] ID: [id number] | | | |FINDINGS: | [...] 12 2015 5:22AM Referring Provider Sharla e: [phone] ID: [id number] | + + Calcium, Ionized (01/12/2015 3:23 AM PDT) + + + + + + | Component | Value | Ref Range | Performed | Pathologist | | | | | At | Signature | + + + + + + | Calcium | 1.00 (L)Comment: Testing | 1.08 - 1.25 | EXTERNAL | | | (Calc) | performed at [facility];[address] | mmol/L | LAB | | | | [address];[place] | | | | | | [address] | | | | + + + + + + | pH, Bld | 7.336Comment: Testing | 7.300 - 7.450 | EXTERNAL | | | | performed at [facility];[address] | | LAB | | | | [address];[place] | | | | | | [address] | | | | + + + [...] EXTERNAL | | | | performed at [facility], [facility] | K/uL | LAB | | | | [address], | | | | | | [place] [address] | | | | + + + + + + | RED CELL | 2.62 (L)Comment: Testing | 4.20 - 5.70 | EXTERNAL | | | COUNT | performed at [facility], [address] | M/uL | LAB | | | | [address], | | | | | | [place] [address] | | | | + + + + + + | Hgb | 8.9 (L)Comment: Testing | 13.2 - 17.0 | EXTERNAL | | | | performed at [facility], [address] | g/dL | LAB | | | | [address], | | | | | | [place] [address] | | | | + + + + + + | Hematocrit, | 26.1 (L)Comment: Testing | 39.0 - 50.0 % | EXTERNAL | | | POC | performed at [facility], [address] | | LAB | | | | [address], | | | | | | [place] [address] | | | | + + + + + + | MCV | 99.8Comment: Testing | 80.0 - 100.0 fl | EXTERNAL | | | | performed at [facility], [address] | | LAB | | | | [address], | | | | | | [place] [address] | | | | + + + + + + | MCH | 34.1 (H)Comment: Testing | 27.0 - 34.0 pg | EXTERNAL | | | | performed at [facility], [address] | | LAB | | | | [address], | | | | | | [place] [address] | | | | + + + + + + | MCHC | 34.2Comment: Testing | 32.0 - 35.5 | EXTERNAL | | | | performed at [facility], [address] | g/dL | LAB | | | | [address], | | | | | | [place] [address] | | | | + + + + + + | RDW-CV | 41.6Comment: Testing | 37 - 53 fl | EXTERNAL | | | | performed at [facility], [address] | | LAB | | | | [address], | | | | | | [place] [address] | | | | + + + + + + | Platelet | 173Comment: Testing | 150 - 400 K/uL | EXTERNAL | | | Count | performed at [facility], [address] | | LAB | | | Plasma | [address], | | | | | | [place] [address] | | | | + + + + + + | MPV | 8.6Comment: Testing | fl | EXTERNAL | | | | performed at [facility], [address] | | LAB | | | | [address], | | | | | | [place] [address] | | | | + + + + + + | Differentia | MANUALComment: Testing | | EXTERNAL | | | l Type | performed at [facility], [address] | | LAB | | | | [address], | | | | | | [place] [address] | | | | + + + + + + | Segmented | 53Comment: Testing | % | EXTERNAL | | | Neutrophils | performed at [facility], [address] | | LAB | | | Manual | [address], | | | | | | [place], [place] [address] | | | | + + + + + + | % Bands | 31Comment: Testing | % | EXTERNAL | | | | performed at [facility], [address] | | LAB | | | | [address], | | | | | | [place], [place] [address] | | | | + + + + + + | % | 7Comment: Testing | % | EXTERNAL | | | Metamyelocy | performed at [facility], [address] | | LAB | | | [address] | [address], | | | | | | [place] [address] | | | | + + + + + + | Lymphocytes | 5Comment: Testing | % | EXTERNAL | | | Manual | performed at [facility], [address] | | LAB | | | | [address], | | | | | | [place] [address] | | | | + + + + + + | Monocytes | 4Comment: Testing | % | EXTERNAL | | | Manual | performed at [facility], [address] | | LAB | | | | [address] [place], | | | | | | [place] [address] | | | | + + + + + + | Absolute | 1.78 (L)Comment: Testing | 1.90 - 7.40 | EXTERNAL | | | Neutrophils | performed at [facility], [address] | [address] | LAB | | | | [address], | | | | | | [place] [address] | | | | + + + + + + | Bands | 1.05 (H)Comment: Testing | 0.00 - 0.20 | EXTERNAL | | | Manual | performed at [facility], [address] | [address] | LAB | | | | [address], | | | | | | [place] [address] | | | | + + + + + + | Absolute | 0.24 (H)Comment: Testing | K/uL | EXTERNAL | | | Metamyelocy | performed at [facility], [address] | | LAB | | | [address] | [address], | | | | | | [place] [address] | | | | + + + + + + | Absolute | 0.17 (L)Comment: Testing | 1.00 - 3.90 | EXTERNAL | | | Lymphocytes | performed at [facility], [address] | [address] | LAB | | | | [address], | | | | | | [place] [address] | | | | + + + + + + | Absolute | 0.14Comment: Testing | 0.00 - 0.80 | EXTERNAL | | | Monocytes | performed at [facility], [address] | K[address] | LAB | | | | [address], | | | | | | [place] [address] | | | | + + + + + + | RBC | 1+Comment: MACRONORMAL | | EXTERNAL | | | Morphology | PLT MORPHTesting | | LAB | | | | performed at [facility], [address] | | | | | [place], | | | | | | [place] [address] | | | | | | | [...] | | | es | performed at [facility], [address] | | LAB | | | | [place], | | | | | | [place] [address] | | | | + + + [...] | | | | [place] [address] | | | | + + + [...] | | performed at [facility] [place] | | LAB | | | | [address];[place] | | | | | | [address] | | | | + + + [...] | | performed at [facility];[address] | | LAB | | | | [address];[place], [place] | | | | | | [address] | | | | + + + [...] | | performed at [facility];888 | mmol/L | LAB | | | | [address];[place] | | | | | | [address] | | | | + + + [...] | | performed at [facility];888 | mmol/L | LAB | | | | [address];[place], [place] | | | | | | [address] | | | | + + + + + + | K | 3.8Comment: Testing | 3.5 - 4.9 | EXTERNAL | | | | performed at [facility] [place];[address] | mmol/L | LAB | | | | [address];[place] | | | | | | [address] | | | | + + + + + + | Cl | 113 (H)Comment: Testing | 99 - 109 mmol/L | EXTERNAL | | | | performed at [facility];[address] | | LAB | | | | [address];[place] | | | | | | [address] | | | | + + + + + + | CO2 | 19 (L)Comment: Testing | 23 - 32 mmol/L | EXTERNAL | | | | performed at [facility] [place];[address] | | LAB | | | | [address];[place] | | | | | | [address] | | | | + + + + + + | Anion Gap | 12Comment: Testing | 5 - 20 mmol/L | EXTERNAL | | | | performed at [facility];[address] | | LAB | | | | [address];[place] | | | | | | [address] | | | | + + + + + + | Glucose, | 92Comment: Testing | 65 - 99 mg/dL | EXTERNAL | | | Fasting | performed at [facility];[address] | | LAB | | | | [address];[place] | | | | | | [address] | | | | + + + + + + | BUN | 17Comment: Testing | 8 - 25 mg/dL | EXTERNAL | | | | performed at [facility];[address] | | LAB | | | | [address];[place] | | | | | | [address] | | | | + + + + + + | Creatinine | 1.0Comment: Testing | 0.70 - 1.30 | EXTERNAL | | | | performed at [facility];888 | mg/dL | LAB | | | | [address];[place] | | | | | | [address] | | | | + + + + + + | BUN/Creatin | 17Comment: Testing | | EXTERNAL | | | ine Ratio | performed at [facility];[address] | | LAB | | | | [address];[place] | | | | | | [address] | | | | + + + + + + | Calcium | 6.5 (L)Comment: Testing | 8.5 - 10.5 | EXTERNAL | | | | performed at [facility];888 | mg/dL | LAB | | | | [address];[place] | | | | | | [address] | | | | + + + + + + | Protein, | 4.6 (L)Comment: Testing | 6.3 - 8.2 g/dL | EXTERNAL | | | Total | performed at [facility] [place];[address] | | LAB | | | | [address];[place] | | | | | | [address] | | | | + + + + + + | Albumin | 1.8 (L)Comment: Testing | 3.3 - 4.8 g/dL | EXTERNAL | | | | performed at [facility];[address] | | LAB | | | | [address];[place] | | | | | | [address] | | | | + + + + + + | Globulin | 2.7Comment: Testing | 1.3 - 4.9 g/dL | EXTERNAL | | | | performed at [facility];[address] | | LAB | | | | [address];[place] | | | | | | [address] | | | | + + + + + + | A/G Ratio | 0.7 (L)Comment: Testing | 1.0 - 2.4 | EXTERNAL | | | | performed at [facility];[address] | | LAB | | | | [address];[place] | | | | | | [address] | | | | + + + + + + | Bilirubin | 1.4Comment: Testing | 0.1 - 1.5 mg/dL | EXTERNAL | | | Total | performed at [facility];[address] | | LAB | | | | [address];[place] | | | | | | [address] | | | | + + + + + + | ALP, | 72Comment: Testing | 35 - 115 U/L | EXTERNAL | | | External | performed at [facility];[address] | | LAB | | | | [address];[place] | | | | | | [address] | | | | + + + + + + | AST | 19Comment: Testing | 10 - 45 U/L | EXTERNAL | | | | performed at [facility];[address] | | LAB | | | | [address];[place] | | | | | | [address] | | | | + + + + + + | ALT | 16Comment: Testing | 10 - 65 U/L | EXTERNAL | | | | performed at [facility];[address] | | LAB | | | | [address];[place] | | | | | | [address] | | | | + + + [...] | | | | | | at [facility];[address] [place] [address] | | | | | | [facility];[place] [address] | | | | + + + [...] | | | Fingerstick | performed at [facility];[address] | | LAB | | | | [address];[place] | | | | | | [address] | | | | + + + [...] 12:19AM | | | Referring Provider Line: [phone] ID: [id number] | | + + + [...] 2015 12:19AM | | Referring Provider Line: [phone] ID: [id number] | | | |FINDINGS: | [...] 12 2015 12:19AM Referring Provider Li ne: [phone] ID: [id number] | + + XR Abdomen [...] 5:04PM Referring Provider Line: | | | [phone] ID: [id number] | | + + + [...] 2015 5:04PM Referring Provider | | Line: [phone] ID: [id number] | | | |TECHNIQUE: 1 [...] 12 2015 5:04PM Referring Provider Li ne: [phone] ID: [id number] | + + XR Chest 1 Vw (01/11/2015 10:46 PM PDT) + + | Specimen | + + | | + + + + + | Impressions | Performed At | + + + | Right lower lobe airspace consolidation. [facility] | | | Electronically signed by Toribio Gallo MD on Jan 12 2015 12:01AM | | | Referring Provider Line: [phone] ID: [id number] | | + + + [...] 2015 12:01AM Referring Provider | | Line: [phone] ID: [id number] | | | |TECHNIQUE: 1 [...] 12 2015 12:01AM Referring Provider Paula ne: [phone] ID: [id number] | + + POC Glucose (01/11/2015 10:23 PM PDT) + + + + + + | Component | Value | Ref Range | Performed | Pathologist | | | | | At | Signature | + + + + + + | Glucose, | 95Comment: Testing | 65 - 99 mg/dL | EXTERNAL | | | Fingerstick | performed at [facility];[address] | | LAB | | | | [address];[place], [place] | | | | | | [address] | | | | + + + [...] | | performed at [facility];888 | mmol/L | LAB | | | | [address];[place], [place] | | | | | | [address] | | | | + + + [...] | | | | | performed at [facility], [address] | | | | | | [place], | | | | | | [place] [address] | | | | + + + [...] | | | | [place] [address] | | | | + + + + + + | Epithelial | 6-10Comment: Testing | /lpf | EXTERNAL | | | Cells | performed at [facility], [address] | | LAB | | | | [address], | | | | | | [place] [address] | | | | + + + [...] | | | | [place] [address] | | | | + + + [...] HAND | | | Testing performed at [facility];[address] | | [address];[place] [address] GRAM STAIN | | | GRAM NEGATIVE RODS | | | SEEN IN ANAEROBIC BOTTLE | | | SMEAR RESULTS CALLED TO AND READ BACK BY: | | | YOCASTA Garcia RN [facility] [place] 0945 | | | 01/12/15 [facility] CULTURE | | | ESCHERICHIA COLIAbnormal | | | FINDING OF ORGANISM GROWTHAbnormal | | | TIME TO DETECTION: | | | 10 HOURS 48 MINUTES | | | Testing performed at [facility], [address] | | | [address], [place] [address] Suscepibility for - | | | ESCHERICHIA [...] GROWTH | | | Testing performed at [facility], | | | [address] [facility] [place] [address] | | + + + + +---------+ [...] | | | | | | at [facility];[address] [place] [address] | | | | | | [facility];[place] [address] | | | | + + + [...] | | | | | | ACUTE FL Testing | | | | | | performed at [facility];[address] | | | | | | [address];[place], [place] | | | | | | [address] | | | | + + + [...] | | performed at [facility];[address] | K/uL | LAB | | | | [address];[place] | | | | | | [address] | | | | + + + + + + | RED CELL | 3.51 (L)Comment: Testing | 4.20 - 5.70 | EXTERNAL | | | COUNT | performed at [facility];[address] | M/uL | LAB | | | | [address];[place] | | | | | | [address] | | | | + + + + + + | Hgb | 12.1 (L)Comment: Testing | 13.2 - 17.0 | EXTERNAL | | | | performed at [facility];888 | g/dL | LAB | | | | [address];[place] | | | | | | [address] | | | | + + + + + + | Hematocrit, | 34.3 (L)Comment: Testing | 39.0 - 50.0 % | EXTERNAL | | | POC | performed at [facility];[address] | | LAB | | | | [address];[place] | | | | | | [address] | | | | + + + + + + | MCV | 97.9Comment: Testing | 80.0 - 100.0 fl | EXTERNAL | | | | performed at [facility];[address] | | LAB | | | | [address];[place] | | | | | | [address] | | | | + + + + + + | MCH | 34.4 (H)Comment: Testing | 27.0 - 34.0 pg | EXTERNAL | | | | performed at [facility];[address] | | LAB | | | | [address];[place] | | | | | | [address] | | | | + + + + + + | MCHC | 35.1Comment: Testing | 32.0 - 35.5 | EXTERNAL | | | | performed at [facility];888 | g/dL | LAB | | | | [address];[place] | | | | | | [address] | | | | + + + + + + | RDW-CV | 41.6Comment: Testing | 37 - 53 fl | EXTERNAL | | | | performed at [facility];[address] | | LAB | | | | [address];[place] | | | | | | [address] | | | | + + + + + + | Platelet | 252Comment: Testing | 150 - 400 K/uL | EXTERNAL | | | Count | performed at [facility];[address] | | LAB | | | Plasma | [address];[place] | | | | | | [address] | | | | + + + + + + | MPV | 7.8Comment: Testing | fl | EXTERNAL | | | | performed at [facility];[address] | | LAB | | | | [address];[place] | | | | | | [address] | | | | + + + + + + | Differentia | MANUALComment: Testing | | EXTERNAL | | | l Type | performed at [facility];[address] | | LAB | | | | [address];[place] | | | | | | [address] | | | | + + + + + + | Segmented | 38Comment: Testing | % | EXTERNAL | | | Neutrophils | performed at [facility];[address] | | LAB | | | Manual | [address];[place] | | | | | | [address] | | | | + + + + + + | % Bands | 36Comment: Testing | % | EXTERNAL | | | | performed at [facility];[address] | | LAB | | | | [address];[place] | | | | | | [address] | | | | + + + + + + | Lymphocytes | 6Comment: Testing | % | EXTERNAL | | | Manual | performed at [facility];[address] | | LAB | | | | [address];[place] | | | | | | [address] | | | | + + + + + + | Monocytes | 20Comment: Testing | % | EXTERNAL | | | Manual | performed at [facility];[address] | | LAB | | | | [address];[place] | | | | | | [address] | | | | + + + + + + | RBC | RBC AND PLT MORPHOLOGY | | EXTERNAL | | | Morphology | APPEAR NORMALComment: | | LAB | | | | Testing performed at | | | | | | [facility];[address];[place] [address] | | | | + + + [...] | | performed at [facility];[address] | | LAB | | | | [address];[place] | | | | | | [address] | | | | + + + [...] | | performed at [facility];888 | mmol/L | LAB | | | | [address];[place] | | | | | | [address] | | | | + + + + + + | K | 4.0Comment: Testing | 3.5 - 4.9 | EXTERNAL | | | | performed at [facility];888 | mmol/L | LAB | | | | [address];[place] | | | | | | [address] | | | | + + + + + + | Cl | 105Comment: Testing | 99 - 109 mmol/L | EXTERNAL | | | | performed at [facility];[address] | | LAB | | | | [address];[place] | | | | | | [address] | | | | + + + + + + | CO2 | 23Comment: Testing | 23 - 32 mmol/L | EXTERNAL | | | | performed at [facility];[address] | | LAB | | | | [address];[place] | | | | | | [address] | | | | + + + + + + | Anion Gap | 11Comment: Testing | 5 - 20 mmol/L | EXTERNAL | | | | performed at [facility];[address] | | LAB | | | | [address];[place] | | | | | | [address] | | | | + + + + + + | Glucose, | 134 (H)Comment: Testing | 65 - 99 mg/dL | EXTERNAL | | | Fasting | performed at [facility];[address] | | LAB | | | | [address];[place] | | | | | | [address] | | | | + + + + + + | BUN | 19Comment: Testing | 8 - 25 mg/dL | EXTERNAL | | | | performed at [facility];[address] | | LAB | | | | [address];[place] | | | | | | [address] | | | | + + + + + + | Creatinine | 1.8 (H)Comment: Testing | 0.70 - 1.30 | EXTERNAL | | | | performed at [facility];888 | mg/dL | LAB | | | | [address];[place] | | | | | | [address] | | | | + + + + + + | BUN/Creatin | 10Comment: Testing | | EXTERNAL | | | ine Ratio | performed at [facility];[address] | | LAB | | | | [address];[place] | | | | | | [address] | | | | + + + + + + | Calcium | 8.1 (L)Comment: Testing | 8.5 - 10.5 | EXTERNAL | | | | performed at [facility];888 | mg/dL | LAB | | | | [address];[place] | | | | | | [address] | | | | + + + [...] | | | | | | at [facility];[address] [place] [address] | | | | | | [facility];[place] [address] | | | | + + + [...] HAND | | | Testing performed at [facility];[address] | | | [facility];[place] [address] CULTURE | | | NO GROWTH | | | Testing performed at [facility], [address] [facility], [place], [place] | | | [address] | | + + + + +---------+ [...] HAND | | | Testing performed at [facility];[address] | | | [facility];[place] [address] CULTURE | | | NO GROWTH | | | Testing performed at [facility], [address] [facility], [place], [place] | | | [address] | | + + + + +---------+ [...] PDT JOSE EATONXR ABDOMEN ACUTE | | [id number]/11/2015 7:31 AM History: 64 years. Male. Acute [...] EXTERNAL | | | | performed at [facility], [address] | K/uL | LAB | | | | [address], | | | | | | [place] [address] | | | | + + + + + + | RED CELL | 3.64 (L)Comment: Testing | 4.20 - 5.70 | EXTERNAL | | | COUNT | performed at [facility], [address] | M/uL | LAB | | | | [address], | | | | | | [place] [address] | | | | + + + + + + | Hgb | 12.4 (L)Comment: Testing | 13.2 - 17.0 | EXTERNAL | | | | performed at [facility], [address] | g/dL | LAB | | | | [address], | | | | | | [place] [address] | | | | + + + + + + | Hematocrit, | 35.9 (L)Comment: Testing | 39.0 - 50.0 % | EXTERNAL | | | POC | performed at [facility], [address] | | LAB | | | | [address], | | | | | | [place] [address] | | | | + + + + + + | MCV | 98.7Comment: Testing | 80.0 - 100.0 fl | EXTERNAL | | | | performed at [facility], [address] | | LAB | | | [address], | | | | | | [place] [address] | | | | + + + + + + | MCH | 34.0Comment: Testing | 27.0 - 34.0 pg | EXTERNAL | | | | performed at [facility], [address] | | LAB | | | | [address], | | | | | | [place] [address] | | | | + + + + + + | MCHC | 34.5Comment: Testing | 32.0 - 35.5 | EXTERNAL | | | | performed at [facility], [address] | g/dL | LAB | | | | [address], | | | | | | [place] [address] | | | | + + + + + + | RDW-CV | 41.1Comment: Testing | 37 - 53 fl | EXTERNAL | | | | performed at [facility], [address] | | LAB | | | | [address], | | | | | | [place] [address] | | | | + + + + + + | Platelet | 266Comment: Testing | 150 - 400 K/uL | EXTERNAL | | | Count | performed at [facility], [address] | | LAB | | | Plasma | [address], | | | | | | [place] [address] | | | | + + + + + + | MPV | 8.6Comment: Testing | fl | EXTERNAL | | | | performed at [facility], [address] | | LAB | | | | [address], | | | | | | [place] [address] | | | | + + + + + + | Differentia | AUTOMATEDComment: | | EXTERNAL | | | l Type | Testing performed at | | LAB | | | | [facility], [address] | | | | | | [place] | | | | | | [address] | | | | + + + + + + | % Segmented | 73.35Comment: Testing | % | EXTERNAL | | | | performed at [facility], [address] | | LAB | | | Neutrophils | [address], | | | | | | [place] [address] | | | | + + + + + + | % | 8.54Comment: Testing | % | EXTERNAL | | | Lymphocytes | performed at [facility], [address] | | LAB | | | | [address], | | | | | | [place], [place] [address] | | | | + + + + + + | % Monocytes | 13.66Comment: Testing | % | EXTERNAL | | | | performed at [facility], [address] | | LAB | | | | [address], | | | | | | [place] [address] | | | | + + + + + + | % | 4.07Comment: Testing | % | EXTERNAL | | | Eosinophils | performed at [facility], [address] | | LAB | | | | [address], | | | | | | [place] [address] | | | | + + + + + + | % Basophils | 0.38Comment: Testing | % | EXTERNAL | | | | performed at [facility], [address] | | LAB | | | | [address], | | | | | | [place] [address] | | | | + + + + + + | Absolute | 3.36Comment: Testing | 1.90 - 7.40 | EXTERNAL | | | Segmented | performed at [facility], [address] | K/uL | LAB | | | Neutrophils | [address], | | | | | | [place] [address] | | | | + + + + + + | Absolute | 0.39 (L)Comment: Testing | 1.00 - 3.90 | EXTERNAL | | | Lymphocytes | performed at [facility], [address] | K/uL | LAB | | | | [address], | | | | | | [place] [address] | | | | + + + + + + | Absolute | 0.63Comment: Testing | 0.00 - 0.80 | EXTERNAL | | | Monocytes | performed at [facility], [address] | K/uL | LAB | | | | [address], | | | | | | [place] [address] | | | | + + + + + + | Absolute | 0.19Comment: Testing | 0.00 - 0.50 | EXTERNAL | | | Eosinophils | performed at [facility], [address] | K/uL | LAB | | | | [address], | | | | | | [place] [address] | | | | + + + + + + | Absolute | 0.02Comment: Testing | 0.00 - 0.10 | EXTERNAL | | | Basophils | performed at [facility], [address] | K/uL | LAB | | | | [address], | | | | | | [place] [address] | | | | + + + [...] EXTERNAL | | | | performed at [facility], [address] | | LAB | | | | [address], | | | | | | [place] [address] | | | | + + + [...] EXTERNAL | | | | performed at [facility], [address] | | LAB | | | | [address], | | | | | | [place] [address] | | | | + + + [...] | | | | [place] [address] | | | | + + + + + + | K | 4.1Comment: Testing | 3.5 - 4.9 | EXTERNAL | | | | performed at [facility], [address] | mmol/L | LAB | | | | [address], | | | | | | [place] [address] | | | | + + + + + + | Cl | 100Comment: Testing | 99 - 109 mmol/L | EXTERNAL | | | | performed at [facility], [address] | | LAB | | | | [address], | | | | | | [place] [address] | | | | + + + + + + | CO2 | 23Comment: Testing | 23 - 32 mmol/L | EXTERNAL | | | | performed at [facility], [address] | | LAB | | | | [address], | | | | | | [place] [address] | | | | + + + + + + | Anion Gap | 10Comment: Testing | 5 - 20 mmol/L | EXTERNAL | | | | performed at [facility], [address] | | LAB | | | | [address], | | | | | | [place] [address] | | | | + + + + + + | Glucose, | 135 (H)Comment: Testing | 65 - 99 mg/dL | EXTERNAL | | | Fasting | performed at [facility], [address] | | LAB | | | | [address], | | | | | | [place] [address] | | | | + + + + + + | BUN | 12Comment: Testing | 8 - 25 mg/dL | EXTERNAL | | | | performed at [facility], [address] | | LAB | | | | [address], | | | | | | [place] [address] | | | | + + + + + + | Creatinine | 0.67 (L)Comment: Testing | 0.70 - 1.30 | EXTERNAL | | | | performed at [facility], [address] | mg/dL | LAB | | | | [address], | | | | | | [place] [address] | | | | + + + + + + | BUN/Creatin | 18Comment: Testing | | EXTERNAL | | | ine Ratio | performed at [facility], [address] | | LAB | | | | [address], | | | | | | [place] [address] | | | | + + + + + + | Calcium | 8.8Comment: Testing | 8.5 - 10.5 | EXTERNAL | | | | performed at [facility], [address] | mg/dL | LAB | | | | [facility], | | | | | | [place] [address] | | | | + + + [...] W | | | | | | [facility], | | | | | | [place] [address] | | | | + + + [...] EXTERNAL | | | | performed at [facility], [address] | K/uL | LAB | | | | [address], | | | | | | [place] [address] | | | | + + + + + + | RED CELL | 3.87 (L)Comment: Testing | 4.20 - 5.70 | EXTERNAL | | | COUNT | performed at [facility], [address] | M/uL | LAB | | | | [address], | | | | | | [place] [address] | | | | + + + + + + | Hgb | 13.3Comment: Testing | 13.2 - 17.0 | EXTERNAL | | | | performed at [facility], [address] | g/dL | LAB | | | | [address], | | | | | | [place] [address] | | | | + + + + + + | Hematocrit, | 38.1 (L)Comment: Testing | 39.0 - 50.0 % | EXTERNAL | | | POC | performed at [facility], [address] | | LAB | | | | [address], | | | | | | [place] [address] | | | | + + + + + + | MCV | 98.6Comment: Testing | 80.0 - 100.0 fl | EXTERNAL | | | | performed at [facility], [address] | | LAB | | | | [address], | | | | | | [place] [address] | | | | + + + + + + | MCH | 34.4 (H)Comment: Testing | 27.0 - 34.0 pg | EXTERNAL | | | | performed at [facility], [address] | | LAB | | | | [address], | | | | | | [place] [address] | | | | + + + + + + | MCHC | 34.9Comment: Testing | 32.0 - 35.5 | EXTERNAL | | | | performed at [facility], [address] | g/dL | LAB | | | | [address], | | | | | | [place] [address] | | | | + + + + + + | RDW-CV | 40.3Comment: Testing | 37 - 53 fl | EXTERNAL | | | | performed at [facility], [address] | | LAB | | | | [address], | | | | | | [place] [address] | | | | + + + + + + | Platelet | 256Comment: Testing | 150 - 400 K/uL | EXTERNAL | | | Count | performed at [facility], [address] | | LAB | | | Plasma | [address], | | | | | | [place] [address] | | | | + + + + + + | MPV | 8.4Comment: Testing | fl | EXTERNAL | | | | performed at [facility], [address] | | LAB | | | | [address], | | | | | | [place] [address] | | | | + + + + + + | Differentia | AUTOMATEDComment: | | EXTERNAL | | | l Type | Testing performed at | | LAB | | | | [facility], [address], [place], [place] | | | | | | [id number] | | | | + + + + + + | % Segmented | 74.27Comment: Testing | % | EXTERNAL | | | | performed at [facility], [address] | | LAB | | | Neutrophils | [address], | | | | | | [place] [id number] | | | | + + + + + + | % | 6.19Comment: Testing | % | EXTERNAL | | | Lymphocytes | performed at [facility], [address] | | LAB | | | [address], | | | | | | [place] [address] | | | | + + + + + + | % Monocytes | 14.96Comment: Testing | % | EXTERNAL | | | | performed at [facility], [address] | | LAB | | | | [address] [address], | | | | | | [place] [address] | | | | + + + + + + | % | 4.17Comment: Testing | % | EXTERNAL | | | Eosinophils | performed at [facility], [address] | | LAB | | | | [address], | | | | | | [place] [address] | | | | + + + + + + | % Basophils | 0.41Comment: Testing | % | EXTERNAL | | | | performed at [facility], [address] | | LAB | | | | [address], | | | | | | [place] [address] | | | | + + + + + + | Absolute | 3.48Comment: Testing | 1.90 - 7.40 | EXTERNAL | | | Segmented | performed at [facility], [address] | K/uL | LAB | | | Neutrophils | [address], | | | | | | [place] [address] | | | | + + + + + + | Absolute | 0.29 (L)Comment: Testing | 1.00 - 3.90 | EXTERNAL | | | Lymphocytes | performed at [facility], [address] | [address]/u[address] | LAB | | | | [address], | | | | | | [place] [address] | | | | + + + + + + | Absolute | 0.70Comment: Testing | 0.00 - 0.80 | EXTERNAL | | | Monocytes | performed at [facility], [address] | K/uL | LAB | | | | [address], | | | | | | [place] [address] | | | | + + + + + + | Absolute | 0.20Comment: Testing | 0.00 - 0.50 | EXTERNAL | | | Eosinophils | performed at [facility], [address] | K/uL | LAB | | | | [address], | | | | | | [place] [address] | | | | + + + + + + | Absolute | 0.02Comment: Testing | 0.00 - 0.10 | EXTERNAL | | | Basophils | performed at [facility], [address] | K/uL | LAB | | | | [address], | | | | | | [place] [address] | | | | + + + [...] EXTERNAL | | | | performed at [facility], [address] | | LAB | | | | [address], | | | | | | [place] [address] | | | | + + + [...] EXTERNAL | | | | performed at [facility], [address] | | LAB | | | | [address], | | | | | | [place] [address] | | | | + + + [...] | | | | [place] [address] | | | | + + + + + + | K | 4.6Comment: Testing | 3.5 - 4.9 | EXTERNAL | | | | performed at [facility], [address] | mmol/L | LAB | | | | [address], | | | | | | [place] [address] | | | | + + + + + + | Cl | 101Comment: Testing | 99 - 109 mmol/L | EXTERNAL | | | | performed at [facility], [address] | | LAB | | | | [address], | | | | | | [place] [address] | | | | + + + + + + | CO2 | 24Comment: Testing | 23 - 32 mmol/L | EXTERNAL | | | | performed at [facility], [address] | | LAB | | | | [address], | | | | | | [place] [address] | | | | + + + + + + | Anion Gap | 11Comment: Testing | 5 - 20 mmol/L | EXTERNAL | | | | performed at [facility], [address] | | LAB | | | | [address], | | | | | | [place] [address] | | | | + + + + + + | Glucose, | 131 (H)Comment: Testing | 65 - 99 mg/dL | EXTERNAL | | | Fasting | performed at [facility], [address] | | LAB | | | | [address], | | | | | | [place] [address] | | | | + + + + + + | BUN | 14Comment: Testing | 8 - 25 mg/dL | EXTERNAL | | | | performed at [facility], [address] | | LAB | | | | [address], | | | | | | [place] [address] | | | | + + + + + + | Creatinine | 0.93Comment: Testing | 0.70 - 1.30 | EXTERNAL | | | | performed at [facility], [address] | mg/dL | LAB | | | | [address], | | | | | | [place] [address] | | | | + + + + + + | BUN/Creatin | 15Comment: Testing | | EXTERNAL | | | ine Ratio | performed at [facility], [address] | | LAB | | | | [address], | | | | | | [place] [address] | | | | + + + + + + | Calcium | 9.1Comment: Testing | 8.5 - 10.5 | EXTERNAL | | | | performed at [facility], [address] | mg/dL | LAB | | | | [address], | | | | | | [place] [address] | | | | + + + [...] [address], | | | | | | [place] [address] | | | | + + + [...] EXTERNAL | | | | performed at [facility], [address] | K/uL | LAB | | | | [address], | | | | | | [place] [address] | | | | + + + + + + | RED CELL | 3.85 (L)Comment: Testing | 4.20 - 5.70 | EXTERNAL | | | COUNT | performed at [facility], [address] | M/uL | LAB | | | | [address], | | | | | | [place] [address] | | | | + + + + + + | Hgb | 13.2Comment: Testing | 13.2 - 17.0 | EXTERNAL | | | | performed at [facility], [address] | g/dL | LAB | | | | [address], | | | | | | [place] [address] | | | | + + + + + + | Hematocrit, | 37.6 (L)Comment: Testing | 39.0 - 50.0 % | EXTERNAL | | | POC | performed at [facility], [address] | | LAB | | | | [address], | | | | | | [place] [address] | | | | + + + + + + | MCV | 97.8Comment: Testing | 80.0 - 100.0 fl | EXTERNAL | | | | performed at [facility], [address] | | LAB | | | | [address], | | | | | | [place] [address] | | | | + + + + + + | MCH | 34.4 (H)Comment: Testing | 27.0 - 34.0 pg | EXTERNAL | | | | performed at [facility], [address] | | LAB | | | | [address], | | | | | | [place] [address] | | | | + + + + + + | MCHC | 35.2Comment: Testing | 32.0 - 35.5 | EXTERNAL | | | | performed at [facility], [address] | g/dL | LAB | | | | [address], | | | | | | [place] [address] | | | | + + + + + + | RDW-CV | 39.4Comment: Testing | 37 - 53 fl | EXTERNAL | | | | performed at [facility], [address] | | LAB | | | | [address], | | | | | | [place] [address] | | | | + + + + + + | Platelet | 223Comment: Testing | 150 - 400 K/uL | EXTERNAL | | | Count | performed at [facility], [address] | | LAB | | | Plasma | [address], | | | | | | [place] [address] | | | | + + + + + + | MPV | 8.7Comment: Testing | fl | EXTERNAL | | | | performed at [facility], [address] | | LAB | | | | [address], | | | | | | [place] [address] | | | | + + + + + + | Differentia | AUTOMATEDComment: | | EXTERNAL | | | l Type | Testing performed at | | LAB | | | | [facility], [address] | | | | | | [place] | | | | | | [address] | | | | + + + + + + | % Segmented | 84.48Comment: Testing | % | EXTERNAL | | | | performed at [facility], [address] | | LAB | | | Neutrophils | [address], | | | | | | [place] [address] | | | | + + + + + + | % | 5.21Comment: Testing | % | EXTERNAL | | | Lymphocytes | performed at [facility], [address] | | LAB | | | | [address], | | | | | | [place] [address] | | | | + + + + + + | % Monocytes | 7.48Comment: Testing | % | EXTERNAL | | | | performed at [facility], [address] | | LAB | | | | [address], | | | | | | [place] [address] | | | | + + + + + + | % | 2.30Comment: Testing | % | EXTERNAL | | | Eosinophils | performed at [facility], [address] | | LAB | | | | [address], | | | | | | [place] [address] | | | | + + + + + + | % Basophils | 0.53Comment: Testing | % | EXTERNAL | | | | performed at [facility], [address] | | LAB | | | | [address], | | | | | | [place] [address] | | | | + + + + + + | Absolute | 6.70Comment: Testing | 1.90 - 7.40 | EXTERNAL | | | Segmented | performed at [facility], [address] | K/uL | LAB | | | Neutrophils | [address], | | | | | | [place] [address] | | | | + + + [...] | | | | [place] [address] | | | | + + + + + + | Absolute | 0.18Comment: Testing | 0.00 - 0.50 | EXTERNAL | | | Eosinophils | performed at [facility], [address] | K[address]L | LAB | | | | [address], | | | | | | [place] [address] | | | | + + + + + + | Absolute | 0.04Comment: Testing | 0.00 - 0.10 | EXTERNAL | | | Basophils | performed at [facility], [address] | K/uL | LAB | | | | [address], | | | | | | [place] [address] | | | | + + + [...] | | | | [place] [address] | | | | + + + [...] EXTERNAL | | | | performed at [facility], [address] | | LAB | | | | [address], | | | | | | [place] [address] | | | | + + + [...] | | | | [place] [address] | | | | + + + + + + | K | 4.1Comment: Testing | 3.5 - 4.9 | EXTERNAL | | | | performed at [facility], [address] | mmol/L | LAB | | | | [address], | | | | | | [place] [address] | | | | + + + + + + | Cl | 100Comment: Testing | 99 - 109 mmol/L | EXTERNAL | | | | performed at [facility], [address] | | LAB | | | | [address], | | | | | | [place] [address] | | | | + + + + + + | CO2 | 23Comment: Testing | 23 - 32 mmol/L | EXTERNAL | | | | performed at [facility], [address] | | LAB | | | | [address], | | | | | | [place] [address] | | | | + + + + + + | Anion Gap | 10Comment: Testing | 5 - 20 mmol/L | EXTERNAL | | | | performed at [facility], [address] | | LAB | | | | [address], | | | | | | [place] [address] | | | | + + + + + + | Glucose, | 144 (H)Comment: Testing | 65 - 99 mg/dL | EXTERNAL | | | Fasting | performed at [facility], [address] | | LAB | | | | [address], | | | | | | [place] [address] | | | | + + + + + + | BUN | 7 (L)Comment: Testing | 8 - 25 mg/dL | EXTERNAL | | | | performed at [facility], [address] | | LAB | | | | [address], | | | | | | [place] [address] | | | | + + + + + + | Creatinine | 0.54 (L)Comment: Testing | 0.70 - 1.30 | EXTERNAL | | | | performed at [facility], [address] | mg/dL | LAB | | | | [address], | | | | | | [place] [address] | | | | + + + + + + | BUN/Creatin | 13Comment: Testing | | EXTERNAL | | | ine Ratio | performed at [facility], [address] | | LAB | | | | [address], | | | | | | [place] [address] | | | | + + + + + + | Calcium | 9.1Comment: Testing | 8.5 - 10.5 | EXTERNAL | | | | performed at [facility], [address] | mg/dL | LAB | | | | [address], | | | | | | [place] [address] | | | | + + + [...] | | | | [place] [address] | | | | + + + [...] | | [place] at [facility] [place] | | LAB | | | | [address];[place] | | | | | | [address] | | | | + + + [...] K/uL | LAB | | | | [address], | | | | | | [place] [address] | | | | + + + + + + | RED CELL | 3.27 (L)Comment: Testing | 4.20 - 5.70 | EXTERNAL | | | COUNT | performed at [facility], [address] | [address] | LAB | | | | [address], | | | | | | [place] [address] | | | | + + + + + + | Hgb | 11.2 (L)Comment: Testing | 13.2 - 17.0 | EXTERNAL | | | | performed at [facility], [address] | g/dL | LAB | | | | [address], | | | | | | [place] [address] | | | | + + + + + + | Hematocrit, | 32.3 (L)Comment: Testing | 39.0 - 50.0 % | EXTERNAL | | | POC | performed at [facility], [address] | | LAB | | | | [address], | | | | | | [place] [address] | | | | + + + + + + | MCV | 98.9Comment: Testing | 80.0 - 100.0 fl | EXTERNAL | | | | performed at [facility], [address] | | LAB | | | | [address], | | | | | | [place] [address] | | | | + + + + + + | MCH | 34.4 (H)Comment: Testing | 27.0 - 34.0 pg | EXTERNAL | | | | performed at [facility], [address] | | LAB | | | | [address], | | | | | | [place] [address] | | | | + + + + + + | MCHC | 34.8Comment: Testing | 32.0 - 35.5 | EXTERNAL | | | | performed at [facility], [address] | g/dL | LAB | | | | [address], | | | | | | [place] [address] | | | | + + + + + + | RDW-CV | 41.6Comment: Testing | 37 - 53 fl | EXTERNAL | | | | performed at [facility], [address] | | LAB | | | | [address], | | | | | | [place] [address] | | | | + + + + + + | Platelet | 204Comment: Testing | 150 - 400 K/uL | EXTERNAL | | | Count | performed at [facility], [address] | | LAB | | | Plasma | [address], | | | | | | [place] [address] | | | | + + + + + + | MPV | 8.5Comment: Testing | fl | EXTERNAL | | | | performed at [facility], [address] | | LAB | | | | [address], | | | | | | [place] [address] | | | | + + + + + + | Differentia | AUTOMATEDComment: | | EXTERNAL | | | l Type | Testing performed at | | LAB | | | | [facility], [address] | | | | | | [place] | | | | | | [address] | | | | + + + + + + | % Segmented | 73.92Comment: Testing | % | EXTERNAL | | | | performed at [facility], [address] | | LAB | | | Neutrophils | [address], | | | | | | [place] [address] | | | | + + + + + + | % | 8.09Comment: Testing | % | EXTERNAL | | | Lymphocytes | performed at [facility], [address] | | LAB | | | | [address], | | | | | | [place] [address] | | | | + + + + + + | % Monocytes | 8.93Comment: Testing | % | EXTERNAL | | | | performed at [facility], [address] | | LAB | | | | [address], | | | | | | [place] [address] | | | | + + + + + + | % | 8.19Comment: Testing | % | EXTERNAL | | | Eosinophils | performed at [facility], [address] | | LAB | | | | [address], | | | | | | [place] [address] | | | | + + + + + + | % Basophils | 0.87Comment: Testing | % | EXTERNAL | | | | performed at [facility], [address] | | LAB | | | | [address], | | | | | | [place] [address] | | | | + + + + + + | Absolute | 3.67Comment: Testing | 1.90 - 7.40 | EXTERNAL | | | Segmented | performed at [facility], [address] | K/uL | LAB | | | Neutrophils | [address], | | | | | | [place], [place] [address] | | | | + + + + + + | Absolute | 0.40 (L)Comment: Testing | 1.00 - 3.90 | EXTERNAL | | | Lymphocytes | performed at [facility], [address] | K/u[address] | LAB | | | | [address], | | | | | | [place], [place] [address] | | | | + + + + + + | Absolute | 0.44Comment: Testing | 0.00 - 0.80 | EXTERNAL | | | Monocytes | performed at [facility], [address] | K/uL | LAB | | | | [address], | | | | | | [place], [place] [address] | | | | + + + + + + | Absolute | 0.41Comment: Testing | 0.00 - 0.50 | EXTERNAL | | | Eosinophils | performed at [facility], [address] | K/uL | LAB | | | | [address], | | | | | | [place] [address] | | | | + + + + + + | Absolute | 0.04Comment: Testing | 0.00 - 0.10 | EXTERNAL | | | Basophils | performed at [facility], [address] | K/uL | LAB | | | | [address], | | | | | | [place] [address] | | | | + + + [...] EXTERNAL | | | | performed at [facility], [address] | | LAB | | | | [address], | | | | | | [place] [address] | | | | + + + [...] | | | | [place] [address] | | | | + + + [...] | | | | [place] [address] | | | | + + + + + + | K | 3.9Comment: Testing | 3.5 - 4.9 | EXTERNAL | | | | performed at [facility], [address] | mmol/L | LAB | | | | [address], | | | | | | [place] [address] | | | | + + + + + + | Cl | 104Comment: Testing | 99 - 109 mmol/L | EXTERNAL | | | | performed at [facility], [address] | | LAB | | | | [address], | | | | | | [place] [address] | | | | + + + + + + | CO2 | 23Comment: Testing | 23 - 32 mmol/L | EXTERNAL | | | | performed at [facility], [address] | | LAB | | | | [address], | | | | | | [place] [address] | | | | + + + [...] | | | | [place] [address] | | | | + + + + + + | BUN | 7 (L)Comment: Testing | 8 - 25 mg/dL | EXTERNAL | | | | performed at [facility], [address] | | LAB | | | | [address], | | | | | | [place] [address] | | | | + + + + + + | Creatinine | 0.68 (L)Comment: Testing | 0.70 - 1.30 | EXTERNAL | | | | performed at [facility], [address] | mg/dL | LAB | | | | [address], | | | | | | [place] [address] | | | | + + + + + + | BUN/Creatin | 10Comment: Testing | | EXTERNAL | | | ine Ratio | performed at [facility], [address] | | LAB | | | | [address], | | | | | | [place] [address] | | | | + + + + + + | Calcium | 8.5Comment: Testing | 8.5 - 10.5 | EXTERNAL | | | | performed at [facility], [address] | mg/dL | LAB | | | | [address], | | | | | | [place] [address] | | | | + + + [...] | | | | | | at [facility], [address] | | | | | | [facility], | | | | | | [place] [address] | | | | + + + [...] EXTERNAL | | | | performed at [facility], [address] | K/uL | LAB | | | | [address], | | | | | | [place] [address] | | | | + + + + + + | RED CELL | 3.52 (L)Comment: Testing | 4.20 - 5.70 | EXTERNAL | | | COUNT | performed at [facility], [address] | M/uL | LAB | | | | [address], | | | | | | [place] [address] | | | | + + + + + + | Hgb | 11.9 (L)Comment: Testing | 13.2 - 17.0 | EXTERNAL | | | | performed at [facility], [address] | g/dL | LAB | | | | [address], | | | | | | [place] [address] | | | | + + + + + + | Hematocrit, | 35.0 (L)Comment: Testing | 39.0 - 50.0 % | EXTERNAL | | | POC | performed at [facility], [address] | | LAB | | | | [address], | | | | | | [place] [address] | | | | + + + + + + | MCV | 99.2Comment: Testing | 80.0 - 100.0 fl | EXTERNAL | | | | performed at [facility], [address] | | LAB | | | | [address], | | | | | | [place] [address] | | | | + + + + + + | MCH | 33.8Comment: Testing | 27.0 - 34.0 pg | EXTERNAL | | | | performed at [facility], [address] | | LAB | | | | [address], | | | | | | [place] [address] | | | | + + + + + + | MCHC | 34.0Comment: Testing | 32.0 - 35.5 | EXTERNAL | | | | performed at [facility], [address] | g/dL | LAB | | | | [address], | | | | | | [place] [address] | | | | + + + + + + | RDW-CV | 40.7Comment: Testing | 37 - 53 fl | EXTERNAL | | | | performed at [facility], [address] | | LAB | | | | [address], | | | | | | [place] [address] | | | | + + + + + + | Platelet | 214Comment: Testing | 150 - 400 K/uL | EXTERNAL | | | Count | performed at [facility], [address] | | LAB | | | Plasma | [address], | | | | | | [place] [address] | | | | + + + + + + | MPV | 8.5Comment: Testing | fl | EXTERNAL | | | | performed at [facility], [address] | | LAB | | | | [address], | | | | | | [place] [address] | | | | + + + + + + | Differentia | AUTOMATEDComment: | | EXTERNAL | | | l Type | Testing performed at | | LAB | | | | [facility], [address] | | | | | | [place] | | | | | | [address] | | | | + + + + + + | % Segmented | 81.53Comment: Testing | % | EXTERNAL | | | | performed at [facility], [address] | | LAB | | | Neutrophils | [address], | | | | | | [place] [address] | | | | + + + + + + | % | 6.67Comment: Testing | % | EXTERNAL | | | Lymphocytes | performed at [facility], [address] | | LAB | | | | [address], | | | | | | [place] [address] | | | | + + + + + + | % Monocytes | 6.91Comment: Testing | % | EXTERNAL | | | | performed at [facility], [address] | | LAB | | | | [address], | | | | | | [place] [address] | | | | + + + + + + | % | 4.53Comment: Testing | % | EXTERNAL | | | Eosinophils | performed at [facility], [address] | | LAB | | | | [address], | | | | | | [place] [address] | | | | + + + + + + | % Basophils | 0.36Comment: Testing | % | EXTERNAL | | | | performed at [facility], [address] | | LAB | | | | [address], | | | | | | [place] [address] | | | | + + + + + + | Absolute | 4.50Comment: Testing | 1.90 - 7.40 | EXTERNAL | | | Segmented | performed at [facility], [address] | K/uL | LAB | | | Neutrophils | [address], | | | | | | [place] [address] | | | | + + + + + + | Absolute | 0.37 (L)Comment: Testing | 1.00 - 3.90 | EXTERNAL | | | Lymphocytes | performed at [facility], [address] | K/uL | LAB | | | | [address], | | | | | | [place] [address] | | | | + + + + + + | Absolute | 0.38Comment: Testing | 0.00 - 0.80 | EXTERNAL | | | Monocytes | performed at [facility], [address] | K/uL | LAB | | | | [address], | | | | | | [place] [address] | | | | + + + + + + | Absolute | 0.25Comment: Testing | 0.00 - 0.50 | EXTERNAL | | | Eosinophils | performed at [facility], [address] | K/uL | LAB | | | | [address], | | | | | | [place] [address] | | | | + + + + + + | Absolute | 0.02Comment: Testing | 0.00 - 0.10 | EXTERNAL | | | Basophils | performed at [facility], [address] | K/uL | LAB | | | | [address], | | | | | | [place] [address] | | | | + + + [...] EXTERNAL | | | | performed at [facility], [address] | | LAB | | | | [address], | | | | | | [place] [address] | | | | + + + [...] EXTERNAL | | | | performed at [facility], [address] | | LAB | | | | [facility], | | | | | | [place] [address] | | | | + + + [...] | | | | [place] [address] | | | | + + + + + + | K | 4.1Comment: Testing | 3.5 - 4.9 | EXTERNAL | | | | performed at [facility], [address] | mmol/L | LAB | | | | [address], | | | | | | [place] [address] | | | | + + + + + + | Cl | 104Comment: Testing | 99 - 109 mmol/L | EXTERNAL | | | | performed at [facility], [address] | | LAB | | | | [address], | | | | | | [place] [address] | | | | + + + + + + | CO2 | 23Comment: Testing | 23 - 32 mmol/L | EXTERNAL | | | | performed at [facility], [address] | | LAB | | | | [address], | | | | | | [place] [address] | | | | + + + + + + | Anion Gap | 8Comment: Testing | 5 - 20 mmol/L | EXTERNAL | | | | performed at [facility], [address] | | LAB | | | | [address], | | | | | | [place] [address] | | | | + + + + + + | Glucose, | 115 (H)Comment: Testing | 65 - 99 mg/dL | EXTERNAL | | | Fasting | performed at [facility], [address] | | LAB | | | | [address], | | | | | | [place] [address] | | | | + + + + + + | BUN | 7 (L)Comment: Testing | 8 - 25 mg/dL | EXTERNAL | | | | performed at [facility], [address] | | LAB | | | | [address], | | | | | | [place] [address] | | | | + + + + + + | Creatinine | 0.58 (L)Comment: Testing | 0.70 - 1.30 | EXTERNAL | | | | performed at [facility], [address] | mg/dL | LAB | | | | [address], | | | | | | [place] [address] | | | | + + + + + + | BUN/Creatin | 12Comment: Testing | | EXTERNAL | | | ine Ratio | performed at [facility], [address] | | LAB | | | | [address], | | | | | | [place] [address] | | | | + + + + + + | Calcium | 8.6Comment: Testing | 8.5 - 10.5 | EXTERNAL | | | | performed at [facility], [address] | mg/dL | LAB | | | | [address], | | | | | | [place] [address] | | | | + + + [...] | | | | [place] [address] | | | | + + + [...] | | | | [place] [address] | | | | + + + + + + | RED CELL | 3.39 (L)Comment: Testing | 4.20 - 5.70 | EXTERNAL | | | COUNT | performed at [facility], [address] | M/uL | LAB | | | | [address], | | | | | | [place] [address] | | | | + + + + + + | Hgb | 11.7 (L)Comment: Testing | 13.2 - 17.0 | EXTERNAL | | | | performed at [facility], [address] | g/dL | LAB | | | | [address], | | | | | | [place] [address] | | | | + + + + + + | Hematocrit, | 34.1 (L)Comment: Testing | 39.0 - 50.0 % | EXTERNAL | | | POC | performed at [facility], [address] | | LAB | | | | [address], | | | | | | [place] [address] | | | | + + + + + + | MCV | 100.6 (H)Comment: | 80.0 - 100.0 fl | EXTERNAL | | | | Testing performed at | | LAB | | | | [facility], [address] | | | | | | [place] | | | | | | [address] | | | | + + + + + + | MCH | 34.5 (H)Comment: Testing | 27.0 - 34.0 pg | EXTERNAL | | | | performed at [facility], [address] | | LAB | | | | [address], | | | | | | [place] [address] | | | | + + + + + + | MCHC | 34.3Comment: Testing | 32.0 - 35.5 | EXTERNAL | | | | performed at [facility], [address] | g/dL | LAB | | | | [address], | | | | | | [place] [address] | | | | + + + + + + | RDW-CV | 41.1Comment: Testing | 37 - 53 fl | EXTERNAL | | | | performed at [facility], [address] | | LAB | | | | [address], | | | | | | [place] [address] | | | | + + + [...] | | | | [place] [address] | | | | + + + + + + | Differentia | AUTOMATEDComment: | | EXTERNAL | | | l Type | Testing performed at | | LAB | | | | [facility], [address] | | | | | | [place] | | | | | | [address] | | | | + + + + + + | % Segmented | 78.12Comment: Testing | % | EXTERNAL | | | | performed at [facility], [address] | | LAB | | | Neutrophils | [address], | | | | | | [place] [address] | | | | + + + + + + | % | 7.52Comment: Testing | % | EXTERNAL | | | Lymphocytes | performed at [facility], [address] | | LAB | | | | [address], | | | | | | [place] [address] | | | | + + + + + + | % Monocytes | 7.66Comment: Testing | % | EXTERNAL | | | | performed at [facility], [address] | | LAB | | | | [address], | | | | | | [place], [place] [address] | | | | + + + + + + | % | 6.09Comment: Testing | % | EXTERNAL | | | Eosinophils | performed at [facility], [address] | | LAB | | | | [address], | | | | | | [place], [place] [address] | | | | + + + + + + | % Basophils | 0.61Comment: Testing | % | EXTERNAL | | | | performed at [facility], [address] | | LAB | | | | [address], | | | | | | [place] [address] | | | | + + + + + + | Absolute | 3.37Comment: Testing | 1.90 - 7.40 | EXTERNAL | | | Segmented | performed at [facility], [address] | K/uL | LAB | | | Neutrophils | [address], | | | | | | [place] [address] | | | | + + + + + + | Absolute | 0.32 (L)Comment: Testing | 1.00 - 3.90 | EXTERNAL | | | Lymphocytes | performed at [facility], [address] | [address] | LAB | | | | [address], | | | | | | [place] [address] | | | | + + + + + + | Absolute | 0.33Comment: Testing | 0.00 - 0.80 | EXTERNAL | | | Monocytes | performed at [facility], [address] | K/uL | LAB | | | | [address], | | | | | | [place] [address] | | | | + + + + + + | Absolute | 0.26Comment: Testing | 0.00 - 0.50 | EXTERNAL | | | Eosinophils | performed at [facility], [address] | K/uL | LAB | | | | [address], | | | | | | [place] [address] | | | | + + + + + + | Absolute | 0.03Comment: Testing | 0.00 - 0.10 | EXTERNAL | | | Basophils | performed at [facility], [address] | K/[address] | LAB | | | | [address], | | | | | | [place] [address] | | | | + + + [...] EXTERNAL | | | | performed at [facility], [address] | | LAB | | | | [address], | | | | | | [place] [address] | | | | + + + [...] EXTERNAL | | | | performed at [facility], [address] | | LAB | | | | [address], | | | | | | [place] [address] | | | | + + + [...] | | | | [place] [address] | | | | + + + + + + | K | 4.2Comment: Testing | 3.5 - 4.9 | EXTERNAL | | | | performed at [facility], [address] | mmol/L | LAB | | | | [address] [place], | | | | | | [place] [address] | | | | + + + [...] | | | | [place] [address] | | | | + + + + + + | Anion Gap | 6Comment: Testing | 5 - 20 mmol/L | EXTERNAL | | | | performed at [facility], [address] | | LAB | | | | [address], | | | | | | [place] [address] | | | | + + + + + + | Glucose, | 101 (H)Comment: Testing | 65 - 99 mg/dL | EXTERNAL | | | Fasting | performed at [facility], [address] | | LAB | | | | [address], | | | | | | [place] [address] | | | | + + + + + + | BUN | 5 (L)Comment: Testing | 8 - 25 mg/dL | EXTERNAL | | | | performed at [facility], [address] | | LAB | | | | [address], | | | | | | [place] [address] | | | | + + + + + + | Creatinine | 0.59 (L)Comment: Testing | 0.70 - 1.30 | EXTERNAL | | | | performed at [facility], [address] | mg/dL | LAB | | | | [address], | | | | | | [place] [address] | | | | + + + + + + | BUN/Creatin | 8Comment: Testing | | EXTERNAL | | | ine Ratio | performed at [facility], [address] | | LAB | | | | [address], | | | | | | [place] [address] | | | | + + + + + + | Calcium | 8.2 (L)Comment: Testing | 8.5 - 10.5 | EXTERNAL | | | | performed at [facility], [address] | mg/dL | LAB | | | | [address], | | | | | | [place] [address] | | | | + + + [...] | | | | | | [facility], | | | | | | [place] [address] | | | | + + + [...] | [id number] As part of the [employer] Program, this case was | | | reviewed by another member of [facility]. (CIELOK) GROSS | | | DESCRIPTION: [...] cm in greatest | | | dimension. Asbestos Shingle Roofer sections are submitted in 11 cassettes. | [...] interpretation and technical preparation was performed by [facility] | | | [facility], | | | [place] [address] (Senior Hardware Design Engineer: Rahul Adamson M.D.; CLIA#: | | | [id number]). Diagnostician: Paxton Velazquez MD Pathologist | | [...] | | performed at [facility] [place] | | LAB | | | | [address];[place], [place] | | | | | | [address] | | | | + + + [...] | | | | | | ACUTE FL Testing | | | | | | performed at [facility] [place];[address] | | | | | | [address];[place], [place] | | | | | | [address] | | | | + + + [...] LAB | | | | performed at [facility] [place];[address] | | | | | | [address];[place], [place] | | | | | | [address] | | | | + + + [...] | | | Excursion: 2.11 cm E-F [place]: 0.10 m/s EPSS: 0.32 cm AR | | | Dec [place]: 1.57 m/s2 AR Dec Time: 2098.37 ms [...] | | mmHg TR Vmax: 2.28 m/s Creative Services Manager: PRERNA Authenticated by: Fifi | | | [...] (A-L): 27.46 ml/m2LAAs A2C: | | 15.68 [id number] A-L A2C: 42.11 mlLALs A2C: 4.95 cmLAAs A4C: 18.20 [id number] A-L | | A4C: 45.19 mlLALs A4C: 6.22 cmAo Diam: 2.69 cmAV Cusp: 1.32 cmLA Diam: 4.21 | | cmLA/Ao: 1.56%FS: 46.57 %EDV(Teich): 103.90 mlEF(Teich): 77.93 %ESV(Teich): | | 22.92 mlIVSd: 1.00 cmIVSs: 1.65 cmLVIDd: 4.73 cmLVIDs: 2.52 cmLVPWd: 1.03 | | cmLVPWs: 1.74 cmSV(Teich): 80.97 mlD-E Excursion: 2.11 cmE-F [place]: 0.10 | | m/sEPSS: 0.32 cmAR Dec [place]: 1.57 m/s2AR Dec Time: 2097. msAR maxP.59 | | mmHgAR PHT: 608.52 msAR Vmax: 3.18 m/sHR: 111.10 BPMAV maxP.52 mmHgAV | | meanP.76 mmHgAV Vmax: 1.06 m/Svetlana Vmean: 0.79 m/Svetlana VTI: 17.97 cmAVA Vmax: | | 2.02 cm2AVA (VTI): 1.81 cu5TAMW (Vmax): 0.00 cm2/m2AVAI (VTI): 0.00 cm2/m2LVCI | | Dopp: 2.34 l/[id number] Dopp: 4.16 l/minHR: 127.41 BPMLVOT maxP.53 mmHgLVOT | | meanP.15 mmHgLVSI Dopp: 18.38 ml/m2LVSV Dopp: 32.72 mlLVOT Vmax: 0.79 | | m/sLVOT Vmean: 0.50 m/sLVOT VTI: 12.09 cmMV E Shade: 0.90 m/sMV PHT: 44.29 msMVA | | By PHT: 4.96 cm2MV maxP.74 mmHgMV meanP.40 mmHgMV Vmax: 0.82 m/sMV | | Vmean: 0.55 m/sMV VTI: 12.57 cmMVA (VTI): 2.60 ym7Ukxyho e': 0.09 m/sSeptal | | E/e': 9.16Lateral e': 0.12 m/sLateral E/e': 7.15P Vein D: 0.34 m/sP Vein S/D | | Ratio: 0.57P Vein S: 0.19 m/sHR: 123.85 BPMPV maxP.14 mmHgPV meanP.14 | | mmHgPV Vmax: 0.73 m/sPV Vmean: 0.50 m/sPV VTI: 11.59 cmRAP: 10 mmHgRVSP: 30.95 | | mmHgTR maxP.95 mmHgTR Vmax: 2.28 m/s Creative Services Manager: Ronaldted by: Fifi | | [facility] Date/Time: 01-05-2015 16:14:35 IMPRESSION: 1. Overall left [...] | |D-E Excursion: 2.11 cm | |E-F [place]: 0.10 m/s | |EPSS: 0.32 cm | |AR Dec [place]: 1.57 m/s2 | |AR Dec Time: 2098.37 [...] |TR Vmax: 2.28 m/s | | | |Creative Services Manager: PRERNA | |Authenticated by: Fifi Castañeda MD [...] EXTERNAL | | | | performed at [facility], [address] | | LAB | | | | [address], | | | | | | [place] [address] | | | | + + + + + + | T4 Total, | 6.8Comment: Testing | 4.7 - 11.3 | EXTERNAL | | | External | performed at [facility], [address] | ug/dL | LAB | | | | [address], | | | | | | [place] [address] | | | | + + + + + + | Free | 2.5Comment: Testing | 1.1 - 4.6 | EXTERNAL | | | Thyroxine | performed at [facility], [address] | | LAB | | | Index, | [address], | | | | | External | [place] [address] | | | | + + + + + + | TSI | 2.53Comment: Testing | 0.45 - 5.10 | EXTERNAL | | | | performed at [facility], [address] | uIU/mL | LAB | | | | [address], | | | | | | [place] [address] | | | | + + + [...] | | performed at [facility] [place];[address] | | LAB | | | | [facility];[place], [place] | | | | | | [address] | | | | + + + [...] | | | | | | ACUTE FL Testing | | | | | | performed at [facility] [place];[address] | | | | | | [address];[place] | | | | | | [address] | | | | + + + [...] | | performed at [facility] [place] [place];[address] | | LAB | | | | [address];[place] | | | | | | [address] | | | | + + + [...] + + | Hemoglobin | 5.0Comment: The Italian | 4.0 - 6.0 % | EXTERNAL [...] | | | | | performed at [facility], [address] | | | | | | [address], | | | | | | [place] [address] | | | | + + + [...] | | | | | performed at [facility], [address] | | | | | | [facility], | | | | | | [place] [address] | | | | + + + [...] | | performed at [facility] [place];[address] | | LAB | | | | [facility], [place] | | | | | | [address] | | | | + + + [...] EXTERNAL | | | | performed at [facility], [address] | K/uL | LAB | | | | [address], | | | | | | [place] [address] | | | | + + + + + + | RED CELL | 3.33 (L)Comment: Testing | 4.20 - 5.70 | EXTERNAL | | | COUNT | performed at [facility], [address] | M/uL | LAB | | | | [address], | | | | | | [place] [address] | | | | + + + + + + | Hgb | 11.5 (L)Comment: Testing | 13.2 - 17.0 | EXTERNAL | | | | performed at [facility], [address] | g/dL | LAB | | | | [address], | | | | | | [place] [address] | | | | + + + + + + | Hematocrit, | 33.7 (L)Comment: Testing | 39.0 - 50.0 % | EXTERNAL | | | POC | performed at [facility], [address] | | LAB | | | | [address], | | | | | | [place] [address] | | | | + + + + + + | MCV | 101.0 (H)Comment: | 80.0 - 100.0 fl | EXTERNAL | | | | Testing performed at | | LAB | | | | [facility], [address] [facility] | | | | | | [place] | | | | | | [address] | | | | + + + + + + | MCH | 34.6 (H)Comment: Testing | 27.0 - 34.0 pg | EXTERNAL | | | | performed at [facility], [address] | | LAB | | | | [address], | | | | | | [place] [address] | | | | + + + + + + | MCHC | 34.3Comment: Testing | 32.0 - 35.5 | EXTERNAL | | | | performed at [facility], [address] | g/dL | LAB | | | | [address], | | | | | | [place] [address] | | | | + + + + + + | RDW-CV | 42.4Comment: Testing | 37 - 53 fl | EXTERNAL | | | | performed at [facility], [address] | | LAB | | | | [address], | | | | | | [place] [address] | | | | + + + + + + | Platelet | 155Comment: Testing | 150 - 400 K/uL | EXTERNAL | | | Count | performed at [facility], [address] | | LAB | | | Plasma | [address], | | | | | | [place] [address] | | | | + + + + + + | MPV | 9.1Comment: Testing | fl | EXTERNAL | | | | performed at [facility], [address] | | LAB | | | | [address], | | | | | | [place] [address] | | | | + + + + + + | Differentia | AUTOMATEDComment: | | EXTERNAL | | | l Type | Testing performed at | | LAB | | | | [facility], [address] | | | | | | [place] | | | | | | [address] | | | | + + + + + + | % Segmented | 83.91Comment: Testing | % | EXTERNAL | | | | performed at [facility], [address] | | LAB | | | Neutrophils | [address], | | | | | | [place] [address] | | | | + + + + + + | % | 6.12Comment: Testing | % | EXTERNAL | | | Lymphocytes | performed at [facility], [address] | | LAB | | | | [address], | | | | | | [place] [address] | | | | + + + + + + | % Monocytes | 6.81Comment: Testing | % | EXTERNAL | | | | performed at [facility], [address] | | LAB | | | | [address], | | | | | | [place] [address] | | | | + + + + + + | % | 2.36Comment: Testing | % | EXTERNAL | | | Eosinophils | performed at [facility], [address] | | LAB | | | | [address], | | | | | | [place] [address] | | | | + + + + + + | % Basophils | 0.80Comment: Testing | % | EXTERNAL | | | | performed at [facility], [address] | | LAB | | | | [address], | | | | | | [place] [address] | | | | + + + + + + | Absolute | 4.32Comment: Testing | 1.90 - 7.40 | EXTERNAL | | | Segmented | performed at [facility], [address] | K/uL | LAB | | | Neutrophils | [address], | | | | | | [place] [address] | | | | + + + + + + | Absolute | 0.32 (L)Comment: Testing | 1.00 - 3.90 | EXTERNAL | | | Lymphocytes | performed at [facility], [address] | [address] | LAB | | | | [address], | | | | | | [place] [address] | | | | + + + + + + | Absolute | 0.35Comment: Testing | 0.00 - 0.80 | EXTERNAL | | | Monocytes | performed at [facility], [address] | K/uL | LAB | | | | [address], | | | | | | [place] [address] | | | | + + + + + + | Absolute | 0.12Comment: Testing | 0.00 - 0.50 | EXTERNAL | | | Eosinophils | performed at [facility], [address] | K/uL | LAB | | | | [address], | | | | | | [place] [address] | | | | + + + + + + | Absolute | 0.04Comment: Testing | 0.00 - 0.10 | EXTERNAL | | | Basophils | performed at [facility], [address] | K/uL | LAB | | | | [address], | | | | | | [place] [address] | | | | + + + [...] EXTERNAL | | | | performed at [facility], [address] | | LAB | | | | [address], | | | | | | [place] [address] | | | | + + + [...] EXTERNAL | | | | performed at [facility], [address] | | LAB [...] | | | | [place] [address] | | | | + + + + + + | K | 3.7Comment: Testing | 3.5 - 4.9 | EXTERNAL | | | | performed at [facility], [address] | mmol/L | LAB | | | | [address], | | | | | | [place] [address] | | | | + + + + + + | Cl | 104Comment: Testing | 99 - 109 mmol/L | EXTERNAL | | | | performed at [facility], [address] | | LAB | | | | [address], | | | | | | [place] [address] | | | | + + + + + + | CO2 | 23Comment: Testing | 23 - 32 mmol/L | EXTERNAL | | | | performed at [facility], [address] | | LAB | | | | [address], | | | | | | [place] [address] | | | | + + + + + + | Anion Gap | 9Comment: Testing | 5 - 20 mmol/L | EXTERNAL | | | | performed at [facility], [address] | | LAB | | | | [address], | | | | | | [place] [address] | | | | + + + + + + | Glucose, | 124 (H)Comment: Testing | 65 - 99 mg/dL | EXTERNAL | | | Fasting | performed at [facility], [address] | | LAB | | | | [address], | | | | | | [place] [address] | | | | + + + + + + | BUN | 6 (L)Comment: Testing | 8 - 25 mg/dL | EXTERNAL | | | | performed at [facility], [address] | | LAB | | | | [address], | | | | | | [place] [address] | | | | + + + + + + | Creatinine | 0.51 (L)Comment: Testing | 0.70 - 1.30 | EXTERNAL | | | | performed at [facility], [address] | mg/dL | LAB | | | | [address], | | | | | | [place] [address] | | | | + + + + + + | BUN/Creatin | 12Comment: Testing | | EXTERNAL | | | ine Ratio | performed at [facility], [address] | | LAB | | | | [address], | | | | | | [place] [address] | | | | + + + + + + | Calcium | 8.3 (L)Comment: Testing | 8.5 - 10.5 | EXTERNAL | | | | performed at [facility], [address] | mg/dL | LAB | | | | [address], | | | | | | [place] [address] | | | | + + + [...] [address], | | | | | | [place] [address] | | | | + + + [...] EXTERNAL | | | | performed at [facility], [address] | K/uL | LAB | | | | [address], | | | | | | [place] [address] | | | | + + + + + + | RED CELL | 2.99 (L)Comment: Testing | 4.20 - 5.70 | EXTERNAL | | | COUNT | performed at [facility], [address] | M/uL | LAB | | | | [address], | | | | | | [place] [address] | | | | + + + + + + | Hgb | 10.4 (L)Comment: Testing | 13.2 - 17.0 | EXTERNAL | | | | performed at [facility], [address] | g/dL | LAB | | | | [address], | | | | | | [place] [address] | | | | + + + + + + | Hematocrit, | 30.0 (L)Comment: Testing | 39.0 - 50.0 % | EXTERNAL | | | POC | performed at [facility], [address] | | LAB | | | | [address], | | | | | | [place] [address] | | | | + + + + + + | MCV | 100.1 (H)Comment: | 80.0 - 100.0 fl | EXTERNAL | | | | Testing performed at | | LAB | | | | [facility], [address] | | | | | | [place] | | | | | | [address] | | | | + + + + + + | MCH | 34.7 (H)Comment: Testing | 27.0 - 34.0 pg | EXTERNAL | | | | performed at [facility], [address] | | LAB | | | | [address], | | | | | | [place] [address] | | | | + + + + + + | MCHC | 34.6Comment: Testing | 32.0 - 35.5 | EXTERNAL | | | | performed at [facility], [address] | g/dL | LAB | | | | [address], | | | | | | [place] [address] | | | | + + + + + + | RDW-CV | 42.0Comment: Testing | 37 - 53 fl | EXTERNAL | | | | performed at [facility], [address] | | LAB | | | | [address], | | | | | | [place] [address] | | | | + + + + + + | Platelet | 161Comment: Testing | 150 - 400 K/uL | EXTERNAL | | | Count | performed at [facility], [address] | | LAB | | | Plasma | [address], | | | | | | [place] [address] | | | | + + + + + + | MPV | 8.3Comment: Testing | fl | EXTERNAL | | | | performed at [facility], [address] | | LAB | | | | [address], | | | | | | [place] [address] | | | | + + + + + + | Differentia | MANUALComment: Testing | | EXTERNAL | | | l Type | performed at [facility], [address] | | LAB | | | | [address], | | | | | | [place] [address] | | | | + + + + + + | Segmented | 88Comment: Testing | % | EXTERNAL | | | Neutrophils | performed at [facility], [address] | | LAB | | | Manual | [address], | | | | | | [place] [address] | | | | + + + + + + | Lymphocytes | 6Comment: Testing | % | EXTERNAL | | | Manual | performed at [facility], [address] | | LAB | | | | [address], | | | | | | [place] [address] | | | | + + + + + + | Monocytes | 6Comment: Testing | % | EXTERNAL | | | Manual | performed at [facility], [address] | | LAB | | | [address], | | | | | | [place] [address] | | | | + + + + + + | Absolute | 5.72Comment: Testing | 1.90 - 7.40 | EXTERNAL | | | Neutrophils | performed at [facility], [address] | K/uL | LAB | | | | [address], | | | | | | [place] [address] | | | | + + + + + + | Absolute | 0.39 (L)Comment: Testing | 1.00 - 3.90 | EXTERNAL | | | Lymphocytes | performed at [facility], [address] | [address] | LAB | | | | [address], | | | | | | [place] [address] | | | | + + + + + + | Absolute | 0.39Comment: Testing | 0.00 - 0.80 | EXTERNAL | | | Monocytes | performed at [facility], [address] | K/uL | LAB | | | | [address], | | | | | | [place] [address] | | | | + + + + + + | RBC | NORMAL RBC MORPHComment: | | EXTERNAL | | | Morphology | NORMAL PLT MORPHTesting | | LAB | | | | performed at [facility], [address] | | | | | | [address], | | | | | | [place] [address] | | | | + + + [...] | | | | [place] [address] | | | | + + + [...] EXTERNAL | | | | performed at [facility], [address] | | LAB | | | | [address], | | | | | | [place] [address] | | | | + + + [...] | | | | [place] [address] | | | | + + + + + + | K | 3.8Comment: Testing | 3.5 - 4.9 | EXTERNAL | | | | performed at [facility], [address] | mmol/L | LAB | | | | [address], | | | | | | [place] [address] | | | | + + + + + + | Cl | 103Comment: Testing | 99 - 109 mmol/L | EXTERNAL | | | | performed at [facility], [address] | | LAB | | | | [address], | | | | | | [place] [address] | | | | + + + + + + | CO2 | 26Comment: Testing | 23 - 32 mmol/L | EXTERNAL | | | | performed at [facility], [address] | | LAB | | | | [address], | | | | | | [place] [address] | | | | + + + + + + | Anion Gap | 6Comment: Testing | 5 - 20 mmol/L | EXTERNAL | | | | performed at [facility], [address] | | LAB | | | | [address], | | | | | | [place] [address] | | | | + + + + + + | Glucose, | 127 (H)Comment: Testing | 65 - 99 mg/dL | EXTERNAL | | | Fasting | performed at [facility], [address] | | LAB | | | | [address], | | | | | | [place] [address] | | | | + + + + + + | BUN | 14Comment: Testing | 8 - 25 mg/dL | EXTERNAL | | | | performed at [facility], [address] | | LAB | | | | [address], | | | | | | [place] [address] | | | | + + + + + + | Creatinine | 0.67 (L)Comment: Testing | 0.70 - 1.30 | EXTERNAL | | | | performed at [facility], [address] | mg/dL | LAB | | | | [address], | | | | | | [place] [address] | | | | + + + + + + | BUN/Creatin | 21Comment: Testing | | EXTERNAL | | | ine Ratio | performed at [facility], [address] | | LAB | | | | [address], | | | | | | [place] [address] | | | | + + + + + + | Calcium | 8.1 (L)Comment: Testing | 8.5 - 10.5 | EXTERNAL | | | | performed at [facility], [address] | mg/dL | LAB | | | | [address], | | | | | | [place] [address] | | | | + + [...] | | | | [place] [address] | | | | + + + [...]
--- OUTSIDE RECORDS SUMMARY | ~2019-02-11 | XMS | Encounter Summary ---
Demographics + + + | Address | [address] | | | [place] [address] | + + + | Home Phone [...] + + | Author | [facility] | | | and [place] | + + + | Organization | [facility] [...] Team Providers + +------+ + | Care Supply Technician Name | Role | Phone | + +------+ + PCP | Unavailable | + +------+ + Encounter Details +--------+ + + + + | Date | Type | Department | Care Team | Description | +--------+ + + + + | 08/14/ | Hospital | [facility] | Conversion | | | 2014 | Encounter | [facility] | Transaction, | | | | | CLINIC [address] | Provider Unknown | | | | | [place] | [phone] | | | | | [address] | | | | | | [phone] | | | +--------+ + + + [...] | | | | [place] [address] | | | | | | [phone] | | | | | | | | +--------+ + + + + | 02/21/ | Surgery | | Saleem Shore, | COLONOSCOPY | | 2019 | | | MD Rebecca BRUNO | | | | | | [address] | | | | | | [place] [address] | | | | | | [phone] | | | | | | | | +--------+ + + + + documented as of this encounter Visit Diagnoses Not on filedocumented in this encounter"
--- OUTSIDE RECORDS SUMMARY | ~2019-02-11 | XMS | Encounter Summary ---
Demographics + + + | Address | [address] | | | [place] [address] | + + + | Home Phone | | + + + | Preferred Language | Unknown | + + + | Marital Status | Single | + + + | Religion Affiliation | Unknown | + + + [...] Team Providers + +------+ + | Care Window Machine Operator Name | Role | Phone | + +------+ + PCP | Unavailable | + +------+ + Encounter Details +--------+ + + + + | Date | Type | Department | Care Team | Description | +--------+ + + + + | 08/21/ | Hospital | [facility] | Saleem Shore, | Rectal cancer (HCC) | | 2014 | Encounter | [facility] | [address] | | | | | INTRA [address] | [address] | | | | | [address] [place], [place] | [place] [address] | | | | | [address] | [phone] | | | | | [phone] | | | +--------+ + + + [...] | | | | | [place] [address] | | | | | | [phone] | | | | | | | | +--------+ + + + + | 02/21/ | Surgery | | Saleem Shore, | COLONOSCOPY | | 2019 | | | MD [address] | | | | | | [address] | | | | | | [place] [address] | | | | | | [phone] | | | | | | | [...] case was reviewed by another member of [facility] | | | Pathology (BES) AMB:lac: [id number] [...] preparation was | | | [facility] | | | [place] [address] (Retail Selling Floor Leader: Rahul | | | Anne Adamson; [facility]#: [id number]). Diagnostician: Asya Hernandez MD | | | [...]
[~2019-02-11 16:25] MED LIST: NAPROXEN375 MG PO; VICODIN 5-5001 EACH PO; VICOPROFEN 2001 EACH PO
[2019-02-11] MEDS ORDERED: LEVETIRACETAM500 MG PO (16:44)
[2019-02-11] MEDS ORDERED: AMOX TR-K CLV1 EAC1 PO (16:44)
[2019-02-11] MEDS ORDERED: PRAVASTATIN SOD40 MG PO (16:46)
[2019-02-11] MEDS ORDERED: FIBERCON1 TABLET PO (16:46)
[2019-02-11] MEDS ORDERED: LOPERAMIDE2 MG PO (16:47)
[2019-02-11] MEDS ORDERED: ASPIRIN81 MG PO (16:47)
[2019-02-11] MEDS ORDERED: VITAMIN B-1100 M1 PO (16:47)
[2019-02-11] MEDS ORDERED: KEPPRA500 MG PO (16:48)
[2019-02-11] MEDS ORDERED: ONDANSETRON HCL8 MG PO (16:49)
[2019-02-11] MEDS ORDERED: SUPREP BOWEL P354 ML PO (16:50)
[2019-02-11] MEDS ORDERED: MILK OF MA400 MG/5 M PO (16:50)
--- NOTE | 2019-02-11 21:00 | NUR ---
V/S SO FAR ARE WDL, PT SEEMS ONLY ORIENTED TO SELF. OVERALL STRENGTH +4, NO PERIPHERAL EDEMA NOTED, ALL LOBES ARE CLEAR, ABD SOUNDS ARE PRESENT. PT HAS A PROLAPSED RECTUM IT SEEMS. BED ALARM IS ON SINCE PT AT TIMES TRIES TO CLIMB OUT OF BED. PT IS ABLE TO TAKE PO MEDICATIONS WELL. WILL CONTINUE TO MONITOR.
--- NOTE | 2019-02-12 00:26 | NUR ---
PT IS SLEEPING AT THIS TIME. PT HAD SMALL BM'S X2 SO FAR.
--- NOTE | 2019-02-12 01:58 | NUR ---
WITH THE HELP OF TIMOTEO MAHMOOD AND TIMOTEO VASQUEZ WE CLEANED PT UP DUE TO A VERY LARGE LIQUID BM. GOWN CHANGED. GARBAGES EMPTIED AND TAKEN OUT OF ROOM. BEDSIDE TABLE AND CALL LIGHT IN REACH. PER TIMOTEO BRITO I DID A BLADDER SCAN ON PT FOR 355M I INFORMED HIS RN.
--- NOTE | 2019-02-12 02:29 | NUR ---
BP IS ELEVATED SOME AND HR IS AROUND 100. PT OVERALL SEEMS MORE ALERT AT THIS TIME AND FOLLOWS COMMANDS WELL. PT STILL SEEMS TO JUST BE ORIENTED TO SELF. ALL LOBES ARE CLEAR, ABD SOUNDS ARE PRESENT, NO PERIPHERAL EDEMA NOTED. OVERALL STRENGTH HAS IMPROVED SOME. PT HAD A LARGE BM. PT HOWEVER IS STILL DUE TO VOID. BLADDER SCAN DONE AT AROUND 0130 SHOWED 355MLS PRESENT IN BLADDER. WILL CONTINUE TO MONITOR.
--- NOTE | 2019-02-12 03:12 | NUR ---
ASSISTED PT TO BATHROOM. PT IS A TWO PERSON ASSIST. PT VOIDED 450MLS. PT BACK IN BED.
--- NOTE | 2019-02-12 05:09 | NUR ---
PT IS AWAKE IN BED. NO NEW CONCERNS NOTED.
--- NOTE | 2019-02-12 06:23 | NUR ---
SINCE ARRIVAL ON FLOOR PT HAS BECOME INCREASINGLY STRONGER AND MORE VERBAL. PT SEEMS TO SEE THINGS THAT ARE NOT THERE. PT ALSO TALKS TO THINGS THAT ARE NOT THERE. PT IS ABLE TO FOLLOW SIMPLE COMMANDS OVERALL. PT DID WALK TO BATHROOM TO URINATE X1 WITH THE ASSISTANCE OF 2 PERSONS. BED ALARM IS NEEDED, PT HAS TRIED TO CLIMB OUT OF BED SEVERAL TIMES. LAB PERSON WAS TALKING TO HIM THIS MORNING AND SHE STATED THAT PT IS NOT MAKING MUCH SENSE IN REGARDS TO HIS VERBAL STATEMENTS. PT HOWEVER IS PLEASANT AND SO FAR HAS NOT BEEN AGRESSIVE. ALL LOBES ARE CLEAR, ABD SOUNDS ARE PRESENT, PT HAD A LARGE BM, NO PERIPHERAL EDEMA NOTED, PT ONLY ORIENTED TO SELF, URINE OUTPUT WAS ADEQUATE OVERALL. URINE DID LOOK CONCENTRATED THOUGH. V/S ARE WDL WITH SOME ELEVATED BP'S AT TIME.
--- NOTE | 2019-02-12 08:10 | NUR ---
PT SITTING UP IN RECLINER, CHAIR ALARM ON. PT KEEP GAZING OFF TO HIS RIGHT, SPEAKING LIBERIAN AND LAUGHING. ATTEMPING TO EAT HIS FOOD BUT MOSTLY PICKING AT IT AND MOVING THINGS AROUND. PT DENIES PAIN. ABLE TO STATE HIS NAME BUT NO OTHER ORIENTATION QUESTIONS ARE COMPREHENSIBLE. ATTMEPTED CARDIOTHORACIC PHYSIOTHERAPIST LINE BUT PT UNALE TO COOPERATE, DID NOT ANSWER QUESTIONS APPROPRIATELY OR ANSWER IN A WAY THAT MADE SENSE TO THIS RN OR CARDIOTHORACIC PHYSIOTHERAPIST. PT ABLE TO FOLLOW VERY SIMPLE COMMANDS WITH FREQUENT REORIENTATION. IV INFUSING INTO LEFT HAND, CDI. PT HAS NOT BEEN CALLING APPROPRIATE BUT CALL LIGHT WITHIN REACH AND PT VISIBLE FROM NURSES STATION.
--- NOTE | 2019-02-12 10:25 | NUR ---
PT 1PA TO RESTROOM. HAD INCONTINENT VOID PLUS SMALL CONTINENT. ATTENDS CHANGED. PT AMB TO BED. BED ALARM ON. PT CONT TO SPEAK IN IRANIAN TO SELF AND LAUGH. WHEN ASKED IF HE HAS PAIN PT RESPONDS IN TURKISH "IT'S OK RIGHT NOW". NO SIGNS OF PAIN OR DISTRESS NOTED AT THIS TIME. CALL LIGHT WITHIN REACH, VISIBLE FROM NURSES STATION.
--- NOTE | 2019-02-12 11:06 | NUR ---
THIS STITCH BONDING MACHINE DRAWER IN RESPONDED TO PATIENT'S BED ALARM GOING OFF. PATIENT TRYING TO GET OUT OF BED TO GO TO BATHROOM, PATIENT TRANSFERRED TO BEDSIDE COMMODE TO VOID. PATIENT GRABS FOR THINGS ON THE BED THAT ARE NOT VISIBLE TO THIS STITCH BONDING MACHINE DRAWER IN. PATIENT REORIENTED. PATIENT BACK IN BED, CALL LIGHT IN REACH. BED ALARM ON. NO OTHER NEEDS AT THIS TIME.
--- NOTE | 2019-02-12 13:16 | NUR ---
NOTED LEFT HAND FIELD START IV LEAKING. IV DC'D AND NEW 22 G IV STARTED IN RIGHT FA WITH TWO ATTEMPTS BY THIS RN. REQUIRED ASSISTANCE FROM CORKY RN TO HELP HOLD PT'S ARM HE RESISTED SLIGHTLY WITH ATTEMPTED START. WHILE THIS RN IN ROOM PT KEEPS REPEATING HIMSELF "ELENA, ELENA!" LAUGHS OFTEN, SPEAKING TO HIMSELF IN JAPANESE. GAZE IS OFTEN DIRECTED TOWARDS THE RIGHT AND HE POINTS TO HIS RIGHT WELL. PT DOES NOT APPEAR TO BE IN PAIN. NO FACIAL GRIMACE, GUARDING OR OTHER SIGNS OF DISTRESS. WHEN ASKED IF HE IS HAVING PAIN HE RESPONDS "IT'S OK RIGHT NOW." PT NOW LYING IN BED TALKING AND LAUGHING TO HIMSELF. BED ALARM ON, BED IN LOWEST POSITION, PT VISIBLE FROM NURSES STATION.
[2019-02-12] MEDS ORDERED: CHOLESTYRAMINE P4 GM PO (13:28)
--- NOTE | 2019-02-12 14:13 | NUR ---
TIMOTEO AHN INFORMED ME THAT PT IS BI-LINGUAL, BUT SEEMS TO ONLY BE USING BURUNDIAN NOW AND IS VERY GARBLED. PT RESTING AT MOMENT, WILL CONTINUE TO FOLLWO NEEDED
--- NOTE | 2019-02-12 15:20 | NUR ---
PT RESTING CALMLY IN BED. NO FIDGETING OR RANDOM SPEECH NOTED. BED ALARM ON. CALL LIGHT WITHIN REACH.
--- NOTE | 2019-02-12 17:38 | NUR ---
In and attempted to speak with Jose. He does not respond, but smiles the entire time. Nurses are in the room assisting him with his meal. Called and spoke with Nessa at [facility] and obtain as much information as possible. He arrived at their facility from [facility] in May. Called and requested medical records from [facility] and when they arrived by fax, gave them to Dr. Lau. No plan for dc at this time, awaiting further information of his condition.
--- NOTE | 2019-02-12 18:08 | NUR ---
PT REQUIRING ASSITANCE WITH FEEDING OTHERWISE PT JUST PLAYS WITH FOOD. KIMBERLY CASTRO FEEDING PT DINNER AT THIS TIME.
--- NOTE | 2019-02-12 20:00 | NUR ---
PT STILL IS ONLY ORIENTED TO SELF BUT ABLE TO FOLLOW SIMPLE COMMANDS IN AMHARIC SUCH TAKING DEEP BREATHS, SQUEEZING FINGERS AND SO ON. PT WAS ALSO ABLE TO TRACK PEN LIGHT. HOWEVER, HE DID TURN HIS HEAD IN THE PROCESS THOUGH. ALL LOBES ARE CLEAR, ABD SOUNDS ARE PRESENT, NO PERIPHERAL EDEMA NOTED AND PT DENIED PAIN. I AM GOING WITH THE ASSUMPTION THAT HE KNEW WHAT HE WAS SAYING SINCE HE IS ABLE TO FOLLOW SIMPLE COMMANDS... NO NEW ISSUES NOTED SO FAR.
--- NOTE | 2019-02-12 23:20 | NUR ---
BED ALARM WENT OFF. TURNING MACHINE OPERATOR CHRISTINA AND THIS SUPERVISING PRODUCER HELPED PATIENT USE THE BATHROOM. PATIENT IS BACK IN BED. BED ALARM ON.
--- NOTE | 2019-02-12 23:51 | NUR ---
PT HAD BM X1 SO FAR. PT IS AWAKE IN BED STILL TALKING TO SOMEONE WHO IS NOT THERE AND STILL LOOKING IF HE WAS SEEING THINGS.
--- NOTE | 2019-02-13 02:16 | NUR ---
PATIENT ASSISTED TO THE COMMODE A 1PA PIVOT TRANSFER. PATIENT WAS ONLY ABLE TO VOID A SMALL AMOUNT. PATIENTS ATTEND WAS SATURATED. PATIENT IS NOW BACK IN BED RESTING. PATIENTS BED ALARM IS ON FOR SAFETY. CALL LIGHT IN REACH.
--- NOTE | 2019-02-13 03:00 | NUR ---
NO CHANGES IN NEURO STATUS NOTED. PT STILL CONFUSED. PT IS GETTING PHYSICALLY MUCH STRONGER. BED ALARM ON. NO NEW CONCERNS NOTED.
--- NOTE | 2019-02-13 06:29 | NUR ---
PT HAD A COUPLE OF BM THIS SHIFT. PT LEFT FOR MRI AT 0622. 1MG IV ATIVAN WAS GIVEN. V/S ARE WDL. NEURO STATUS OF PT REMAINS UNCHANGED OVERALL. PHYSICALLY PT IS GETTING STRONGER. BED ALARM VERY MUCH NEEDED. NO NEW CONCERNS NOTED.
--- NOTE | 2019-02-13 08:34 | NUR ---
PT APPEARS TO BE SLEEPING SOUNDLY. EYES CLOSED, RESP EVEN AND UNLABORED.
--- NOTE | 2019-02-13 10:00 | NUR ---
MATY GAITAN PRESENT TO PROVIDE TRANSLATION SERVICE. THIS RN, JIMY CHARGE NURSE, AND DR. LEBLANC PRESENT. PT HAD RECIEVED [facility] EARLIER THIS AM FOR MRI AND AT THIS TIME IS EXTREMELY DROWSY. PT LYING IN BED, RARELY OPENING HIS EYES. RESPONDING SOMEWHAT TO INTERPRETERS QUESTIONS BUT SHE REPORTS THAT HIS RESPONSES DON'T MAKE VERY MUCH SENSE. PT REPORTS THAT HE IS HAVING PAIN IN HIS ABD AND THAT WHEN HE MOVES HIS HEAD IT BOTHERS HIS "NERVES" IN HIS RIGHT SHOULDER. NOTED PT GRIMACED NO MATTER WHERE THE DOCTOR TOUCHED HIM. WHEN ASKED ORIENTATION QUESTIONS PT RESPONDS PER DIRECTOR WHOLESALE THAT "I CAN MOVE BUT I CAN'T KNEEL OVER." PT ASSISTED BACK TO POSITION OF COMFORT. BED ALARM ON. PT VISIBLE FROM NURSES STATION.
--- NOTE | 2019-02-13 11:37 | NUR ---
PT SWALLOWED PILLS WITHOUT DIFFICULTY. PT NOTED TO HAVE VERY POOR DENTATION WITH EXTENSIVE TOOTH DECAY. THOROUGH ORAL CARE PROVIDED AT THIS TIME. PT REMAINS VERY DROWSY. STILL REFUSES TO OPEN EYES, RESPONSES TO TOUCH AND PAINFUL STIMULI. RESP RATE 16, EVEN AND UNLABORED. BED ALARM ON.
--- NOTE | 2019-02-13 12:22 | NUR ---
PT BLADDER SCANNED FOR GREATER THAN 650 PER BLADDER SCANNER. THIS RN AND KESHAWN CLINICAL EDUCATION ACADEMIC COORDINATOR WERE ABLE TO AWAKEN PT AND AMB HIM TO RESTROOM. PT FAIRLY STABLE ON FEET, WAS ABLE TO AMB WHILE HOLDING OUR HANDS. PT BEGAN VOIDING ON THE FLOOR, VERY LARGE UNMEASURED AMOUNT. PROVIDED NAIMA CARE. NEW GOWN AND ATTENDS ON. PT AMB BACK TO BED. BED ALARM ON. PT LYING DOWN EYES CLOSED.
--- NOTE | 2019-02-13 12:32 | NUR ---
PT TRANSPORTED TO OR FOR LUMBAR PUNCTURE.
--- NOTE | 2019-02-13 13:20 | NUR ---
PT TX TO [facility] FOR LP PER APEDERSEN STATEMENT SERVICES REPRESENTATIVE. IV VERSED GIVEN BY APEDERSEN STATEMENT SERVICES REPRESENTATIVE. LP COMPLETE BY 1258. NS.PR1 AND NS.JKS MONITORING PT AND GIVING AIRWAY SUPPORT. VS WNL. PT RESPONDS TO STIMULI.
--- NOTE | 2019-02-13 13:43 | NUR ---
PT EXHIBITS SIGNS OF SLEEP APNEA. O2 SATS STAY IN HIGH 90'S AND LOWS IN HIGH 80'S DURING APNEIC PHASE. REQUEST FOR PULSE OX. 1320 109/62, P65 SAT 98. 1325 124/57 P 70 SAT 97. 1330 94/67 P75 SAT 95. 1335 109/62 P74 SAT 99. 1340 102/63 P 73 SAT 96. EKG NORMAL SINUS. PT BACK TO MED-SURG VIA STRETCHER PER NS.TG
--- NOTE | 2019-02-13 14:00 | NUR ---
PT RETURNED FROM LUMBAR PUNCTURE. PT SLEEPING, DIFFICULT TO AROUSE. DID NOT WAKE UP WITH FULL ASSIST TRANSFER FROM STRETCHER TO HOSPITAL BED. RR 16. PT RESONDS TO PAINFUL STIMULI. VSS. SATTING 96% ON RA, CPOX IN PLACE. BED ALARM ON.
--- NOTE | 2019-02-13 15:00 | NUR ---
Assisted or crew to return pt to bed following LP with sedation. Pt is sleeping sound and does not awaken when moved.
--- NOTE | 2019-02-13 15:10 | NUR ---
PT REMAINS VERY DROWSY. AROUSES TO TOUCH AND VERBAL STIMULI. BARELY OPENS EYES AND FALLS BACK ASLEEP. NO SIGNS OF PAIN OR DISTRESS NOTED. BED ALARM ON.
--- NOTE | 2019-02-13 16:30 | NUR ---
PATIENT UP TO BSC WITH 2 PERSON ASSIST. PATIENT WAS NOT ABLE TO VOID. ATTENDS DRY. PATIENT BACK TO BED WITH BED ALARM ON.
--- NOTE | 2019-02-13 17:50 | NUR ---
PT MORE AWAKE NOW. MENTATION UNCHANGED FROM PREVIOUS ASSESSMENTS. PT CONT TO SPEAK IN BROKE UKRAINIAN. VERY LITTLE UNDERSTANDING OF SIMPLE COMMANDS IN BANGLADESHI OR UKRAINIAN. GAZE CONT TO THE RIGHT AND PT APPEARS TO BE HAVING VISUAL AND AUDIO HALLUCINATIONS, TALKING AND LAUGHING OFTEN TO SELF. KIMBERLY CASTRO ASSISTING PT TO EAT DINNER. BED ALARM ON.
--- NOTE | 2019-02-13 18:10 | NUR ---
THIS RN AND KESHAWN VOCATIONAL PSYCHOLOGIST ASSISTED PT TO BSC. VOIDED LARGE AMOUNT. ASSISTED BACK TO BED. BED ALARM ON.
--- NOTE | 2019-02-13 20:00 | NUR ---
RECEIVED REPORT AT 1900, FOUND PT IN BED AWAKE TALKING TO SOMEBODY WHO'S NOT THERE.
--- NOTE | 2019-02-13 22:24 | NUR ---
HR AROUND 100. OTHER V/S ARE WDL. THERE IS NO CHANGE IN NEUROLOGICAL STATUS IN THIS PT FROM LAST NIGHT. ALL LOBES ARE CLEAR, ABD SOUNDS ARE PRESENT, NO PERIPHERAL EDEMA NOTED. WILL CONTINUE TO MONITOR.
--- NOTE | 2019-02-14 01:08 | NUR ---
PT IS SLEEPING AT THIS TIME. AT 2345 PT STATED THAT HE HAD A HEADACHE WITH RIGHT SIDED SHOULDER PAIN, PRN TYLENOL WAS GIVEN. WILL CONTINUE TO MONITOR FOR HEADACHE/POSSIBLE STIFF NECK ETC.
--- NOTE | 2019-02-14 02:18 | NUR ---
AT 2345, AFTER PT WALKED TO BATHROOM, HE COMPLAINED OF A HEADACHE, PRN TYLENOL WAS GIVEN. AT 0200 SECOND SHIFT ASSESSMENT WAS DONE. I DID WAKE PT UP FOR THIS ASSESSMENT IN PART ALSO TO SEE IF HE NEEDED TO USE THE BATHROOM SINCE EARLIER HE VOIDED ALL OVER THE FLOOR, THE WALL AND STAFF IN THE BATHROOM. WHEN PT WAS AWAKE, HE STARTED GRABBING HIS HEAD IN PAIN. ASLO HIS RIGHT SIDE OF HIS NECK WAS PAINFUL TO VERY LIGHT TOUCH. PT WAS UNABLE TO TURN HIS HEAD TO THE RIGHT AND THE LEFT (MAY HAVE BEEN MY BAD PRONOUNCIATION IN THE CITIZEN [place] LANGUAGE). HR AT THAT TIME WAS 115, BP 141/91 TEMP 97.5 F. AT 0212 MD LEBLANC WAS CALLED AND AN ORDER WAS RECEIVED FOR 5MG PO OXY Q6HRS PRN. PT AT THIS TIME IS AT REST BUT I WILL GIVE THE OXY IF HE APPEARS PAINFUL AGAIN.
--- NOTE | 2019-02-14 05:52 | NUR ---
AT START OF SHIFT ASSESSMENT WAS VERY MUCH THE SAME THEY WERE THE PREVIOUS NIGHTS. V/S WERE WDL OVERALL. AT AROUND 2345, AFTER PT WALKED TO BATHROOM, HE COMPLAINED OF A HEADACHE, PRN TYLENOL WAS GIVEN. AT 0200 SECOND SHIFT ASSESSMENT WAS DONE. I DID WAKE PT UP FOR THIS ASSESSMENT IN PART ALSO TO SEE IF HE NEEDED TO USE THE BATHROOM SINCE EARLIER HE VOIDED ALL OVER THE FLOOR, THE WALL AND STAFF IN THE BATHROOM. WHEN PT WAS AWAKE, HE STARTED GRABBING HIS HEAD IN PAIN. ASLO HIS RIGHT SIDE OF HIS NECK WAS PAINFUL TO VERY LIGHT TOUCH. PT WAS UNABLE TO TURN HIS HEAD TO THE RIGHT AND THE LEFT (MAY HAVE BEEN MY BAD PRONOUNCIATION IN THE NIGERIEN LANGUAGE). HR AT THAT TIME WAS 115, BP 141/91 TEMP 97.5 F. AT 0212 MD LEBLANC WAS CALLED AND AN ORDER WAS RECEIVED FOR 5MG PO OXY Q6HRS PRN WHICH WAS CANCELLED. PT AT THIS TIME IS AT REST BUT I WILL GIVE THE OXY IF HE APPEARS PAINFUL AGAIN. PT THEN WAS AWAKE IN BED TALKING TO HIMSEL OR SOMEONE. AT ABOUT 0500 OR SO, PT WAS MOVING AROUND SOME AND THEN STATED THAT HE WAS IN PAIN. PRN TORADOL WAS GIVEN. PT NOW IS SLEEPING.
--- NOTE | 2019-02-14 07:18 | NUR ---
REPORT RECEIVED FROM TIMOTEO BRITO. PT RESTING IN BED WITH EYES CLOSED, RESPIRATIONES ENVE AND UNLABORED. O2 = 98% ON ROOM AIR, HR = 86. BED RAILS. UP. CALL LIGHT WITHIN REACH.
--- NOTE | 2019-02-14 09:02 | NUR ---
MORNING ASSESSMENT AND MEDICAITON DUE. THIS RN TO BEDSIDE. PT RESTING WITH EYES CLOSED. AWAKENS TO VOICE AND LIGHT TOUCH. PT STATES "NO DOLOR" BUT HAS OCCATIONAL GRIMICE GRABBING RIGHT SHOULDER. LUNG SOUNDS CLEAR. PT ABLE TO STATE NAME WHEN ASKED AND PART OF BIRTHDAY, OTHERWISE DISORIENTED. SUPERVISOR FORMING DEPARTMENT CALLED, NO ANSWER AT THIS TIME. ABDOMEN SOFT, BOWEL TONES HEARD. MEDICATIONS GIVEN. PT DENIES HUNGER. PT FOLLOWS MOST COMMANDS WHEN GIVEN IN SINGAPOREAN. BED RAILS UP. BED ALARM ON. CALL LIGHT WITHIN REACH.
--- NOTE | 2019-02-14 09:31 | NUR ---
PATIENT RESTING IN BED. STUDENT RN IN ROOM. VITAL SIGNS AND I&O DONE. PATIENT REFUSED TO ORDER BREAKFAST. ATTEND CHANGED. CALL LIGHT WITHIN REACH. NO OTHER NEEDS AT THIS TIME
--- NOTE | 2019-02-14 10:35 | NUR ---
THIS RN TO ROOM TO CHECK ON PT. PT CONTINUES TO GRAB SHOULDER AND EXPRESS OCCATIONAL GRIMICES. MINIMAL VOID IN DEPENDS. NAIMA CARE DONE. 2PA UP TO COMODE. NO VOID NOTED. 2PA UP FOR SHOWER. LINENS CHANGED. PT UP TO CHAIR. FOOD ORDERED FOR PT. APPLESAUCE PROVIDED. PT SMILING AND APPEARS COMFORTABLE. CHAIR ALARM ON. CALL LIGHT WITHIN REACH.
--- NOTE | 2019-02-14 11:09 | NUR ---
FRIENDS ARRIVED TO VISIT WITH PT. PHARMACY MESSENGER TO ROOM. CASE MANAGMENT TO ROOM. FRIENDS REPORT PTS FAMILY IS NOW IN [place] BUT HE HAS A BROTHER IN [place], THEY DO NOT HAVE A PHONE NUMBER FOR HIS BROTHER (GRAZYNA) BUT WILL TRY TO STOP BY HIS HOUSE. PT REMAINS UP TO CHAIR. CHAIR ALARM ON. FATMATA LIGHT WITHIN REACH. PT EASILY VIWED FROM NURSES STATION.
--- NOTE | 2019-02-14 12:18 | NUR ---
NOON ASSESSMENT DUE. THIS RN TO ROOM FOR ROUNDS WITH . BOARD MEMBER PRESENT. PT ABLE TO STATE HIS NAME BUT OTHERWISE DISORIENTED. PT ABLE TO FOLLOW SOME COMMANDS BUT NOT ALL. ASSESSMENT DONE. LUNG SOUNDS CLEAR. PT REPORTS "NO DOLOR" BUT WILL GRAB SHOULDER AND CRINGE. LIDOCANE PATCH ORDERED AND PLACED. PT TALKING TO HIMSELF AND APPARENTLY TO THINGS IN ROM. PT POINTS AT PLACES IN ROOM. PT FEEDING SELF LUNCH UP IN CHAIR. CHAIR ALARM ON. CALL LIGHT WITHIN REACH. PT EASILY VIEWED FROM NURSES STATION.
--- NOTE | 2019-02-14 13:11 | NUR ---
PATIENT SITTING UP IN CHAIR. VITAL SIGNS AND I&O DONE. PATIENT DID NOT VOID DURING THIS PERIOD EVEN WHEN HE WAS TO ENCOURAGE TO USE THE BASE COMMODE. RN NOTIFIED. CALL LIGHT WITHIN REACH. NO OTHER NEEDS AT THIS TIME
--- NOTE | 2019-02-14 14:17 | NUR ---
MEDICATION DUE. THIS RN TO BEDSIDE. PT RESTING IN CHAIR WITH EYES CLOSED. RESPIRATIONS EVEN AND UNLABORED. MEDICATION STARTED, INUFSING VIA IV PUMP. PT ALLOWED TO REST. CALL LIGHT WITHIN REACH. PT EASILY VIEWED FROM NURSES STATION.
--- NOTE | 2019-02-14 15:45 | NUR ---
Friends arrive to visit. State they went to [place] and were sent here. They speak little Japanese and aid to room who speaks Rwandan. They state they are friends of patient, they know where his brother works and they can get in touch with him. Pt does not recognize them, but following prompting he does recognize one friend and calls him Andrey. Per host/hostess head pt is confused and making off statements.
--- NOTE | 2019-02-14 16:40 | NUR ---
AFTERNOON ASSESSMENT DUE. PT RESTING IN BED WITH EYES CLOSED. AWAKENS TO VOICE AND LIGHT TOUCH. PT HAS YET TO VOID THIS SHIFT. BLADDER SCANNED = 95ML. MD NOTIFIED. IV FLUIDS CONTINUE. PT OFFERED WATER. PT DECLINES. PORT ACCESSED PER POLICY AND MD ORDER. BRISK BLOOD RETURN NOTED. PORT HEPARIN LOCKED PER PROTOCOL. PORT DEACCESSED PER PROTOCOL. PT TOLERATED PROCEEDURE WELL. WITH ASSISTANCE FROM LAY UP OPERATOR, PT ABLE TO STATE NAME AND BIRTHDAY AND THAT HE IS AT THE HOSPITAL. PT UNAWARE OF SURROUNDINGS, DATE, TIME, OR SITUATION. PT REORIENTED. PT ABLE TO FOLLOW COMMANDS TO TOUCH NOSE WITH FINGER BUT UNABLE TO PRESENT 2 FINGERS TO THIS RN. PT TALKING TO HIMESELF AND THE ROOM AT LARGE. PT APPEARS TO BE SEEING HIS MOTHER AND FATHER. PT ALSO STATES AT TIMES THAT HE IS IN [place]. LUNG SOUNDS CLEAR. BOWEL TONES HEARD. PT BACK TO RESTING WITH EYES CLOSED. BED RAILS UP. BED ALARM ON. CALL LIGHT WITHIN REACH. PT EASILY VIEWED FROM NURSES STATION.
--- NOTE | 2019-02-14 17:09 | NUR ---
PATIENT RESTING IN BED. VITAL SIGNS AND I&O DONE. PATIENT DID NOT VOID DURING THIS PERIOD. RN NOTIFIED. CALL LIGHT WITHIN REACH. NO OTHER NEEDS AT THIS TIME
[2019-02-14] MEDS ORDERED: VITAMIN D5000 UNI1 PO (17:14)
--- NOTE | 2019-02-14 17:16 | NUR ---
Medications reconciled using [facility] med list
--- NOTE | 2019-02-14 17:27 | NUR ---
MD UPDATED ON PTS FLUID STATUS. LR BOLUS ORDERED, READ BACK DONE WITH ORDER. STUDENT RN HANGING BOLUS WITH INSTRUCTOR. PT RESTING WITH EYES CLOSED. RESPIRATIONS EVEN AND UNLABORED. BED RAILS UP. BED ALARM ON.
--- NOTE | 2019-02-14 17:40 | NUR ---
PT HERE FOR METABOLIC ENCEPHALOPATHY. 2PA UP TO CHAIR, 2 GRAM SODIUM SOFT DIET. PT FEEDING SELF THIS SHIFT. HALLUCAINATIONS CONTINUE. PT ORITNED TO PLACE AND SELF AT TIMES. INCONSISTANT ABILITY TO FOLLOW COMMANDS. VOIDING QUANTITY NOT SUFFICIENT, BLADDER SCAN SHOWS 95ML, FLUID BOLUS ORDERED. PT KINYARWANDA SPEAKING. LIVE READING INTERVENTION TEACHER USED. PORT-A-CATH FLUSHED WITH GOOD BLOOD RETURN THIS SHIFT. HEPARIN LOCKED AT THIS TIME. NEW LIDOCANE PATCH TO RIGHT SHOULDER. PT DOES NOT USE CALL LIGHT. BED/CHAIR ALARM.
--- NOTE | 2019-02-14 19:50 | NUR ---
Pt coop with assessment, all procedures explained in Kittitian to this pt. Word sald in Kittitian. Pt is Kittitian speaking only. able to follow instructions. viausl and verbal hallucinations present, easily redirectable. R portacath inplace, not accessed. IV L AC area patent. was picking at it. wrapped w coban dressing. IVF infusing LR at 75cc/hr. On room air, lungs dim at bases, unable to follow to take deep breaths and is unable to follow some basic instructions but ok others. Attends in place, tolerating liquids well, fall and aspiration precautions in place. Confused, answers to name. calm. bed alarm on. Denies pain when asked. "I was sick" answers and then continue with verbal hallucinations. Fluids and call light at bedside
--- NOTE | 2019-02-14 20:18 | NUR ---
ROUNDED CHARGE. PATIENT IS RESTING IN BED WATCHING TV. PATIENT SHOOK HEAD NO WHEN ASKED IF HE HAD ANY NEEDS. CALL LIGHT IN REACH. BED ALARM ON FOR SAFETY.
--- NOTE | 2019-02-14 22:03 | NUR ---
1L LR bolus IV started. Pt awake, calm watching tv, continues to carry a conversation with unseen people. No c/o pain when asked, HOB elevated, tolerating fluids, no n/v aspiration and fall precautions in place, repositioned, bed alarm on. call light at bedside
--- NOTE | 2019-02-15 00:06 | NUR ---
REPOSITIONED IN BED, COOP, GOES BACK TO SLEEP, DOES ANSWER TO IMAGINARY CONVERSATION, ATTENDS DRY, REPOSITIONED. IVF INFUSING, BED ALARM ON, HOB ELEVATED.
--- NOTE | 2019-02-15 01:53 | NUR ---
PATIENTS BED ALARM ALERTED STAFF. PATIENT ASSISTED TO [facility]. PATIENT WAS ABLE TO VOID. PATIENT IS NOW BACK IN BED RESTING. PATIENT DENIES ANY FURTHER NEEDS. CALL LIGHT IN REACH. BED ALARM ON FOR SAFETY.
--- NOTE | 2019-02-15 02:18 | NUR ---
pt was sitting edge of bed after goping to br with 2pa, had md sized bm, Answered questions and asked questions appropriately in both Chadian and Azeri. Back in bed, IVF infusing, bed alarm on HOB elevated. high fall and aspiration precautions in place.
--- NOTE | 2019-02-15 04:26 | NUR ---
CURRENTLY RESTING, EYES CLOSED, ON ROOM AIR, NO DISTRESS NOTED, HOB ELEVATED, IVF INFUSING, PT SAMI SPEAKING, DOES SAYS SOME WORDS IN NIUEAN, FOLLOWS INSTRUCTIONS. CONTINUES TO BE CONFUSED WITH AUDITORY AND VISUAL HALLUCINATIONS. CALM, UP TO BR WITH 1PA, TOLERATED WELL, VOIDED AND HAD A SOFT BM, ATTENDS IN PLACE. BACK TO BED. HOB ELEVATED. BED AND CHAIR BED ALARM . DAILE WEIGHT 154.2# BED WEIGHT. CALL LIGHT AT HANDS REACH, HAS BEEN TOLERATING FLUIDS WELL
--- NOTE | 2019-02-15 05:57 | NUR ---
AWAKES EASILY, DENIES C/O PAIN. COOP WITH VITALS, DENIES NEED TO URINATE AT THIS TIME, VOIDED EARLIER THIS SHIFT. GOES BACK TO SLEEP, ON ROOM AIR. CALM, IVF INFUSING. BED ALARM ON
--- NOTE | 2019-02-15 07:20 | NUR ---
BEDSIDE HANDOFF REPORT RECEIVED FROM ALUMINUM FABRICATION SUPERVISOR RN. PT RESTING IN BED. LR INFUSING AT 75 ML/HR.
--- NOTE | 2019-02-15 08:42 | NUR ---
PT RESTING IN BED. DISTRIBUTION OPERATIONS SUPERVISOR PHONE USED FOR ASEESSMENT; HOWEVER PT WAS DISORIENTED AND THOUGHT PATTERN WAS UNORGANIZED, DID NOT RESPOND TO QUESTIONS APPROPRIATELY BUT WAS ABLE TO FOLLOW COMMANDS. PT ON ROOM AIR, LUNG SOUNDS CLEAR. BOWEL TONES ACTIVE, DENIES NAUSEA OR ABD PAIN. CMS INTACT, WITHOUT EDEMA. LIDOCAINE PATCH APPLIED TO RIGHT SHOULDER. LR INFUSING AT 75 ML/HR. PT 2PA TO CHAIR FOR BREAKFAST, CHAIR ALARM IN PLACE.
--- NOTE | 2019-02-15 15:12 | NUR ---
PT COMPLETED WITH SHOWER, IV FLUIDS RESUMED. PT SITTING IN CHAIR, CHAIR ALARM ON.
--- NOTE | 2019-02-15 15:24 | NUR ---
Pt cont. unchanged today. Call from [facility] and they are willing to accept him back when he is ready for discharge.
--- NOTE | 2019-02-15 16:33 | NUR ---
PT AGITATED, GETTING UP FREQUENTLY, PT COMPLAINT OF PAIN, GIVEN TYLENOL PER ORDER. CHAIR ALARM IN PLACE.
--- NOTE | 2019-02-15 18:43 | NUR ---
PT CONTINUES TO BE CONFUSED. PT ON ROOM AIR, LUNG SOUNDS CLEAR. PT TOLERATING REGULAR DIET. PT SBA, WALKED IN HALLS, WORKED WITH P.T. PT VOIDING QS, ELEVATED CREATININE. IV FLUIDS INFUSING LR AT 75 ML/HR. PT NAMIBIAN SPEAKING ONLY, DID NOT COOPERATE WITH GAS WELL PUMPER PHONE.
--- NOTE | 2019-02-15 18:54 | NUR ---
PATIENT TOOK A SHOWER TODAY. BED ALARM AND CHAIR ALARM.
--- NOTE | 2019-02-15 19:43 | NUR ---
PT BACK TO BED WITH 1PA. CONTINUES TO HAVE AUDITORY AND VISUAL HALLUCINATIONS CRYYING A CONVERSATION WITH UNSEEN PEOPLE. HARD TO REDIRECT HE CONTINUES TO CARRY A CONVERSATION AND NOT INTERACTING VIAUALLY OR VERBALLY WITH THIS RN. THIS RN TALKED TO PT IN [place]. HE HAS WORD SALAD AND ANSWERS ARE NOT APPROPRIATE TO THE QUESTIONS ASKED BY ME. THEN HE BECAME VERBALLY AND PHYSICALLY AGGRRESSIVE WHEN HE WAS REPOSITONED IN BED. TRYING TO HIT WITH HANDS AND FEET, UNABLE TO FOLLOW INSTRUCTIONS AND AGAIN HIS RESPONSE WAS UNRELATED TO THE SITUATION. MEDICATED WITH 2 TYLENOL PO PER C/O H/A , UNABLE TO STATE PAIN LEVEL OR TO BE MORE SPECIFIC. IN BED , BED ALARM ON. IVF CHANGED TO SL AT NURSES DISCRETION WILL NOTIFY MD PT WAS PULLING ON IVF TUBING AND TRIED TO TAKE OFF VERONICA WRAP COVERING IV SITE. NOT EASILY REDIRECTABLE.
--- NOTE | 2019-02-15 19:59 | NUR ---
DR LEBLANC NOTIFIED VERBALLY OF PTS INCREASED AGITATION AND NOT FOLLOWING INSTRUCTIONS, PT WITH VISUAL AND AUDITORY HALLUCINATION, VERY RESTLESS, WORD SALD PRESENT TO. INFORMED OF IVF STOPPED AT THIS TIME DUE TO HIM PULLING ON TUBING . OK RESTART WHEN CALMER. PT IN BED, VERY RESTLESS, AGITATED MOVING ALL OVER HIS BED, BED ALARM ON. NEW ORDERS RECEIVED
--- NOTE | 2019-02-15 22:01 | NUR ---
CALMER, CONTINUES TO TALK TO UNSEEN PEOPLE. IVF RESTARTED. BED ALARM ON, CALL LIGHT AT HANDS REACH
--- NOTE | 2019-02-15 23:50 | NUR ---
Alrm going off, trying to crawls out. up to br, voided, back to bed, slightly unsteady gait, got back to bed after several cues, rritable, not following instructions, continues to talk to unseen being, not answering appropriately when asked questions. Back to bed, rails up, bed alarm on. IVF infusing, pt tolerating fluids well, fall and aspiration precautions in place, call light at hands reach
--- NOTE | 2019-02-16 01:04 | NUR ---
DROWSY, MUMBLING TO HIMSELF, TURNS SELF IN BED, CALM, IVF INFUSING, PT REACHES OVER AND GRABS WATER BOTTLE, TAKES SIPS, NO C/O PAIN AT THIS TIME. IVF INFUSING. BED ALARM ON.
--- NOTE | 2019-02-16 01:42 | NUR ---
warm blanket given, awake, calm, visual and auditory hallucinations . IVf infusing, hob elevated, fall and aspiration precautions inplace. using call light, has voided QS
--- NOTE | 2019-02-16 03:26 | NUR ---
Pt was incontinent of urine in bed, was wearing attends, alrm going off, was restless, trying to get off bed. Irritable, not following instructions, belligerent, word salad, + for verbal and auditory hallucinations.Walked to br with 1PA, slightly unsteady gait as pt trying to reach and grab enything on his path.voided , back to bed after several cues, Rails up, bed alarm on, IVf infusing. Call light and fluids at hands reach
--- NOTE | 2019-02-16 04:38 | NUR ---
Pt received 12.5mg of Seroquesl, had increased irritability, crawling out of bed, not following instructions, and having an aggressive, conversationw tih unseen person in Divehi. Tolerating fluids well. aspiration and fall precautions in place. Bed alarm on. all procedures explained in Swedish, pt is unable to follow instructions even in Divehi.
--- NOTE | 2019-02-16 07:20 | NUR ---
BEDSIDE HANDOFF REPORT RECEIVED FROM TRUMPET PLAYER RN. PT RESTING IN BED, BED ALARM IN PLACE.
--- NOTE | 2019-02-16 09:55 | NUR ---
PT SITTING IN CHAIR. PT CONFUSED, NOT FOLLOWING COMMANDS, PT STATES HE IS AT A HOUSE, WANTING TO KNOW WHERE THE GUN IS, DOES NOT REORIENT, PT UNABLE TO STATE DATE OR DATE. PT ON ROOM AIR, LUNG SOUNDS CLEAR. PT ENCOURAGED TO EAT, WILL TAKE BITES WHEN FED, DENIES NAUSEA, BOWEL TONES ACTIVE. CMS INTACT, WITHOUT EDEMA. IV FLUIDS INFUSING LR AT 75 ML/HR. PT POINTS TO RIGHT KNEE AND BACK WHEN ASKED ABOUT PAIN, LIDOCAINE PATCH APPLIED TO RIGHT LOWER BACK. CHAIR ALARM IN PLACE.
--- NOTE | 2019-02-16 11:00 | NUR ---
SPOKE WITH WELDING ENGINEER AT [facility]. SHE STATES THEY ARE CONTINUING TO HOLD A BED FOR PATIENTS RETURN. DISCUSSED WE ARE STILL MONITORING LABS. WILL CONTACT THEM FOR RETURN.
--- NOTE | 2019-02-16 13:09 | NUR ---
PT INCONTINENT OF STOOL, PERICARE PERFORMED. PT ASSISTED BACK TO BED, BED ALARM ON.
--- NOTE | 2019-02-16 14:49 | NUR ---
PT WALKING IN [place] WITH NURSE AIDE, PT AGGITATED AND GETTIGN UP FREQUIENTLY.
--- NOTE | 2019-02-16 16:06 | NUR ---
PT SLEEPING IN BED, BED ALARM IN PLACE.
--- NOTE | 2019-02-16 17:58 | NUR ---
PT AGGITATED AND CONFUSED FOR MORNING AND AFTERNOON, DIFFICULT TO REDIRECT DOES NOT REORIENT. PT ON ROOM AIR, LUNG SOUND SLCEAR. LR INFUSING AT 75ML/HR. PT WITH SMALL APPETITE, DOES BETTER WITH ENCOURAGEMENT. VOIDING QS, HAD BM TODAY. PT HAS BEEN SLEEPING ON AND OFF SINCE AROUND 1500.
--- NOTE | 2019-02-16 19:29 | NUR ---
I WENT INTO PATIENT'S ROOM TO CHECK ON HIM AND TWO NURSES WHERE IN THERE PUTTING HIM IN THE SHOWER THIS MORNING. SO I CHANGED THE BED LINENS.
--- NOTE | 2019-02-16 20:24 | NUR ---
Pt was incontinent of urine and bowel at change of shift, skin care and clean gown given. Was very non redirectable, irritable, not following instructions and got belligerent when he was asked in Macedonian by this Rn if he was ready for bed and that we needed to change his gown and socks. Attends given to pt and he tried to place attends on. Back to chair then to bed after numerous cues. Trying to get out of bed and not responding to instructions being given in Macedonian, Pt continues to carry continuous conversations with unseen persons, very scared look in his face at times. Continues to have frequent intermitten auditory and visual hallucinations present, hard to redirect or reassure, Seroquel 12.5mg po given per agitation. Bed alarm on. IVF infusing
--- NOTE | 2019-02-16 21:43 | NUR ---
cALMER, EYES CLOSED, NO RESP DISTRESS, HOB ELEVATED, FOB ELEVATED, IVF SITE PATENT, IVF INFUSING. BED ALARM ON
--- NOTE | 2019-02-17 00:40 | NUR ---
resting, on room air, no resp distress, moves legs and arms, IVF infusing. Bed alarm on
--- NOTE | 2019-02-17 03:28 | NUR ---
pt awake, trying to crawl out of bed, bed alarm on. Hard to redirect or follow instructions when gettin gup to br. Was incontinent of large amount of urine plus voided 600cc, had small amount of kathe colored formed bm. and voided again missing hat. Skin care done, attens and gown changed. Not very coop. Was coop with getting a daily standing scale weight 144.8# weight, back to bed with assist, unsteady gait present, no change from earlier. Took sips of water. Call light at bedside and bed alrm on. Calm. at this time, No viausl or auditory hallucinations noted at this time.
--- NOTE | 2019-02-17 06:16 | NUR ---
Pt was very irritable and angry at begining of shift, hard to redirect, talking to unseen persons and positive for visual and auditory hallucinations Received 12.5mg of Seroquesl and it was effective. Slept strainght 4-6 hours, has been awake, calmer, quiet, no verbal conversations heard at this time. Was incontinent of urine, got up to br, uncoordinated gait, voided in hat plus was incontinent of urine, back to bed. Currently up to br with 2pa , voided in br, had smear of bm, irritable but cooperative. call light at bedside and bed alarm on, fall and aspiration precautions in place
--- NOTE | 2019-02-17 07:00 | NUR ---
HANDOFF REPORT RECEIVED FROM SENIOR HADOOP DEVELOPER RN. PT SLEEPING, LEFT UNDISTURBED.
--- NOTE | 2019-02-17 10:15 | NUR ---
PT GETTING OUT OF BED, ASSISTED TO BATHROOM WITH 1PA AND THEN TO CHAIR. PT MORE ALERT, APPEARS LESS CONFUSED, FOLLOWING COMMANDS AND ANSWERING QUESTIONS APPROPRIATELY. PT ON ROOM AIR, LUNG SOUNDS CLEAR. BOWEL TONES ACTIVE, BREAKFAST ORDERED. PT WITHOUT EDEMA, CMS INTACT. PT REFUSED LOVENOX INJECTION AND LIDOCAINE PATCH. COMPLAINT OF HEADACHE, GIVEN TYLENOL PRN. IV FLUIDS INFUSING LR AT 75ML/HR, IV SITE FLUSHED, PATENT. BED ALARM ON.
--- NOTE | 2019-02-17 13:00 | NUR ---
PT DOES NOT WANT OT EAT LUNCH, HAD LATE BREAKFAST AND DOES NOT LIKE WHAT HE WAS GIVEN, DOES NOT WANT TO ORDER ANYTHING ELSE.
--- NOTE | 2019-02-17 14:38 | NUR ---
PT MORE ALERT AND ORIENTED TODAY, MORE COOPERATIVE, FOLLOWING COMMANDS AND ANSWERING QUESTIONS. PT ON ROOM AIR, LUNG SOUNDS CLEAR. PT WITH FREQUENT LOOSE BM, BOWEL TONES ACTIVE, TOELRATING DIET, BETTER APPETITE TODAY. NEW IV STARTED TO RIGHT FOREARM, IV MAG INFUSING, SL OTHERWISE. PT SBA TO AMBULATE, WALKING IN [place] WITH P.T.
--- NOTE | 2019-02-17 15:43 | NUR ---
PT RESTING IN HIS CHAIR WITH HIS ALARM ON. INTERPERTER LINE WAS CALLED AND HE DENIES ANY PAIN AT THIS TIME. HE STATES HE IS UNSURE OF WHY HE HAS BEEN CONFUSED AND HE IS ABLE TO STATE WHERE HE IS BUT IS UNAWARE OF THE DATE. HE STATES HE IS CONFUSED IN THE HEAD. DR ORTIZ IN THE ROOM INTERVIEWING THE PT AND ASSESSING HIM, SHE STATES HIS CONFUSION IS IMPROVING. RICHARD STATES HE LIVES IN [place] BY HIMSELF.
--- NOTE | 2019-02-17 17:32 | NUR ---
Pt eating dinner at this time and he denies any pain.
--- NOTE | 2019-02-17 18:28 | NUR ---
PT SLEEPING IN HIS RECLINER AT THIS TIME. CALL MICHAEL WITHIN REACH AND CHAIR ALARM IS ON.
--- NOTE | 2019-02-17 19:48 | NUR ---
PT UP IN CHAIR, ASKED TO GO TO BR, 1-2PA, UNSTEADY GAIT BUT MUCH MORE IMPROVED.DECLINED TO USE THE URINAL OR COLLECTION HAT.. VOIDED INTO BOWL LARGE AMOUNT OF YELLOW URINE. BACK TO BED, WAS MUCH MORE EASIER TO REDIRECT. ' I DO NOT LIKE ICE WATER, I WANT TEA' STATED, WARM TEA GIVEN ON REQUEST. ANSWERED QQUESTIONS VERY APPROPRIATELY, AWERE OF SELF AND SITUATION, GENERAL IDEA OF HOSP [facility]' STATED, REORIENTED, NO VISUAL OR AUDITORY HALLUCINATIONS NOTED, CONVERSATION MORE APPROPRIATE TO TOPIC AND CALMER MANNER WHEN TALKING TO. FLUIDS, CALL LIGHT AT BEDSIDE, BED AND CHAIR ALARM ON. FALL AND ASPIRATION PRECAUTIONS IN PLACE. C/O 2-3/10 H/A 'I HIT MY HEAD WHEN I WAS YOUNG AND MY BODY SHAKES SOMETIMES' PROBABLY REFERRING TO SEIZURE DX. MEDICATED WITH TYLENOL 650MG, MELATONIN 3MG PO GIVCEN A NEW ORDER FOR INSOMNIA. MUCH MORE IMPROVED OVERALL. EASY TO REDIRECT.
--- NOTE | 2019-02-17 20:21 | NUR ---
BUSINESS SUPPORT ROUNDING NOTE. PT STATES HE IS "NO MUY LANCE". PT POINTS TO IV SITE. PT'S PRIMARY RN NOTIFIED. SHE STATES THAT PT BELIEVES THERE IS A NEEDLE STILL IN HIS ARM. PRIMARY RN IN ROOM TO PROVIDE FURTHER EDUCATION. CALL LIGHT IN REACH. ROOM IN VIEW OF RN STATION. BED ALARM ACTIVE. WHITE BOARD UPDATED.
--- NOTE | 2019-02-18 00:49 | NUR ---
pt resting, no resp distress, resp even, unlabored. hob elevated. bed alarm on
--- NOTE | 2019-02-18 03:00 | NUR ---
sneesing, not using calllight, has slept from 2029 to now, plesantly, no auditory or visual hallucinations, appropriate tallk, calmer, smiling, following instructions well,. Up to br with 1 assist, stiff unsteady LE gait, but much improved. wants to do independently, did own kavya care. voided and had smear of bm. sat at edge opf bed for about 20 minutes, tolerated very well, hot tea given on requests. Back to bed by self, bed alarm on. fall and aspiration precautions in place
--- NOTE | 2019-02-18 06:44 | NUR ---
Awake, calm quiet, no visual or auditoruy hallucinations this shift. Slept approx 5-7 hours this shift. Used call light appropriately, decreased irritability, plesant and following instructions. Tolerating fluids well. has had smears of bm, voiding QS urine. Stiff and unsteady gait noted when ambulating and getting oput of bed. bed alarm on.
--- NOTE | 2019-02-18 07:24 | NUR ---
0715: REPORT RECIEVED FROM NIGHAT MAHMOOD. PT RESTING IN HIS BED WITH NO COMPLAINTS HE STATES HE IS DOING "GOOD". CALL ALARM IS ON AND CALL MICHAEL WITHIN REACH.
--- NOTE | 2019-02-18 07:54 | NUR ---
PT LYING IN BED AND HE COMPLAINS OF SOME SLIGHT DISCOMFORT AT HIS RIGHT WRIST IV SITE. SITE APPEARS HEALTHY AND FLUSHES WITHOUT DIFFICULTY. SITE REWRAPPED AND HE STATES THAT IT IS NOW "OK". PT MORE ALERT AND APPEARS IN NO DISTRESS. CALL MICHAEL IN REACH AND BED ALARM IS ON.
[2019-02-18] MEDS ORDERED: MELATONIN3 MG PO (08:18)
--- NOTE | 2019-02-18 10:24 | NUR ---
REPORT CALLED TO DORIS MAHMOOD [facility].
== END 2019-02-18 10:36 | DRG 71 ==
LOC: ED 16:25 → MS 16:27 → ED 16:27 → MS 16:27
PROVIDERS: ADMIT Student in an Organized Health Care Education/Training Program
PROC: 009U3ZX Drainage of Spinal Canal, Percutaneous Approach, Diagnostic (ICD-10-PCS; principal; 2019-02-13)
DX: G93.41 Metabolic encephalopathy (principal); I50.22 Chronic systolic (congestive) heart failure; I42.9 Cardiomyopathy, unspecified; B69.9 Cysticercosis, unspecified; N17.9 Acute kidney failure, unspecified; G40.909 Epilepsy, unspecified, not intractable, without status epilepticus; E78.5 Hyperlipidemia, unspecified; R22.0 Localized swelling, mass and lump, head; N14.1 Nephropathy induced by other drugs, medicaments and biological substances; T37.5X5A Adverse effect of antiviral drugs, initial encounter; Y92.239 Unspecified place in hospital as the place of occurrence of the external cause; F10.11 Alcohol abuse, in remission; T46.6X5A Adverse effect of antihyperlipidemic and antiarteriosclerotic drugs, initial encounter; Z87.820 Personal history of traumatic brain injury; Z79.899 Other long term (current) drug therapy; Z85.048 Personal history of other malignant neoplasm of rectum, rectosigmoid junction, and anus; Z79.82 Long term (current) use of aspirin
CPT/HCPCS: 36415; 51701; 62270; 70450; 70553; 71045; 80048; 80053; 80176; 81001; 82140; 82542; 82803; 82945; 83735; 84100; 84157; 84443; 85025; 85032; 85651; 87040; 87070; 87205; 87252; 88184; 88185; 89051; 97110; 97116; 97162; 99285-25; A9579; G0480; J0133; J1650; J1885; J1953; J2060; J3475; J7060; J7121

== ENCOUNTER 2019-06-27 12:18 | Emergency (ER) | payer MEDICARE, OTHER ==
[~2019-06-27] VITALS: Ht 165.1 cm; Wt 63.5 kg
[~2019-06-27 12:18] MED LIST changes: +AMOX TR-K CLV1 EAC1 PO; +ASPIRIN81 MG PO; +CHOLESTYRAMINE P4 GM PO; +FIBERCON1 TABLET PO; +KEPPRA500 MG PO; +LEVETIRACETAM500 MG PO; +LOPERAMIDE2 MG PO; +MELATONIN3 MG PO; +MILK OF MA400 MG/5 M PO; +ONDANSETRON HCL8 MG PO; +PRAVASTATIN SOD40 MG PO; +SUPREP BOWEL P354 ML PO; +VITAMIN B-1100 M1 PO; +VITAMIN D5000 UNI1 PO
[2019-06-27] MEDS ORDERED: TYLENOL325 MG PO (12:35)
[2019-06-27] MEDS ORDERED: KRISTALOSE10 GM PO (14:24)
--- NOTE | 2019-06-27 19:45 | EKG ---
[facility] [address] [facility] [place], [place] [address] Signed Normal sinus rhythm Left axis deviation Low voltage QRS Inferior infarct , age undetermined Abnormal ECG No previous ECGs available Confirmed by SANTHOSH LEBLANC DO ([id number]) on 06/27/2019 7:45:34 PM Electronically Signed By: SANTHOSH LEBLANC DO 06/27/19 194 PATIENT NAME: NII KAYLARICHARD Acosta Electrocardiogram DATE OF : 46 PHYSICIAN: SANTHOSH LEBLANC DO REPORT #: [id number] REPORT IS CONFIDENTIAL AND NOT TO BE RELEASED WITHOUT AUTHORIZATION
== END 2019-06-27 14:50 ==
LOC: ED 12:18
DX: K72.90 Hepatic failure, unspecified without coma (principal); I50.9 Heart failure, unspecified; Z85.038 Personal history of other malignant neoplasm of large intestine; Z79.82 Long term (current) use of aspirin; Z79.899 Other long term (current) drug therapy
CPT/HCPCS: 70450; 71045; 80053; 81001; 82140; 85025; 93005; 93010; 96360; 96361; 99285-25; J7121

== ENCOUNTER 2020-04-10 08:31 | Observation (INO) | payer MEDICARE, OTHER ==
[~2020-04-10] VITALS: Ht 165.1 cm; Wt 61.3 kg
[~2020-04-10 08:31] MED LIST changes: +KRISTALOSE10 GM PO; +TYLENOL325 MG PO
--- NOTE | 2020-04-10 13:55 | NUR ---
REPORT RECIEVED FROM ER NURSE, RYANNE.
--- NOTE | 2020-04-10 14:06 | NUR ---
PATIENT ARRIVED TO MED SURG AT 1400, TRANSFERRED SELF TO BED. VITALS ARE STABLE, PATIENT RESPONDS TO CROATIAN WELL.
--- NOTE | 2020-04-10 14:10 | NUR ---
[facility] INSTRUCTOR QUYNH IS HELPING WITH BELARUSIAN TRANSLATION.
--- NOTE | 2020-04-10 14:15 | NUR ---
PT ARRIVED FROM ER. REPORT RECEIVED FROM TIMOTEO CASTELLANOS. PT TRANSFERS SELF TO BED AND THEN TO CHAIR. PT DISORITED AND OCCATIONALLY UNSTEADY. TIMOTEO CASTELLANOS DOING INTAKE ASSESSEMENT.
--- NOTE | 2020-04-10 14:39 | NUR ---
PATIENT AMBULATED TO BATHROOM TO VOID 500ML OF CLEAR YELLOW URINE.
--- NOTE | 2020-04-10 14:48 | NUR ---
LAB IN TO DRAW BLOOD CULTURES.
--- NOTE | 2020-04-10 15:00 | NUR ---
THIS RN TO BEDSIDE FOR ADMISSION ASSESSMENT. PT UP TO CHAIR. WARM BLANKETS PROVIDED. PT DENIES PAIN AND NAUSEA. WOLOF IN PERSON INTURPRETER USED: QUYNH RN (INSTRUCTOR FROM [employer]). PTS SPEACH GARBLED AT TIMES AND PT OFTEN DOES NOT FINISH SENTANCES. ANSWERS "OK" TO MOST QUESTIONS INCLUDING WHEN ASKED HIS OWN NAME AND WHERE HE IS. PT DOES NOT ANSWER QUESTIONS ABOUT SENSATION BUT DOES RESPOND TO TOUCH IN ALL EXTREMITIES. PT NOTED TO BE INCONTANT WITH PANTS SOID. FRESH DEPENDS IN PLACE, NAIMA CARE DONE. PORT-A-CATH IN PLACE TO UPPER RIGHT CHEST, NOT ACCESSED AT THIS TIME. DINNER ORDER PLACED FOR PT. PT DECLINES SNACKS. WARM BLANKETS PROVIDED. CHAIR ALARM IN PLACE. CALL LIGHT WITHIN REACH. PT EASILY VIEWED FROM NURSES STATION. [facility] STAFF HAVE REPORT THAT PT DOES NOT NEED TO BE IN THE [facility] BUT WOULD BE BETTER AT AN ASSISTED LIVING FACILITY. IN CURRENT CONDITION PT APPEARS TO NEED THE CARE LEVEL OF A [facility]. CASE MANAGEMENT TO ASSESS.
[2020-04-10] MEDS ORDERED: LACTULOSE10 GM/151 PO (15:31)
[2020-04-10] MEDS ORDERED: CHOLESTYRAMINE378 GM PO (15:33)
--- NOTE | 2020-04-10 15:33 | NUR ---
MED REC COMPLETE
--- NOTE | 2020-04-10 16:30 | NUR ---
THIS RN TO ROOM TO CHECK ON PT. PT RETURNING FROM RESTROOM WITH SALES PRODUCT MANAGER. PT STEADY ON FEET. PT BACK TO CHAIR. PT DENIES PAIN AND NAUSEA. PO SIPS OF WATER PROVIDED. PT DENIES ADDIITONAL REQUESTS OR COMPLAINTS. CALL LIGHT WITHIN REACH. CHAIR ALARM ON.
--- NOTE | 2020-04-10 16:42 | NUR ---
PT ADMITTED THIS SHIFT FOR ALTERED MENTAL STATUS. PT UP TO CHAIR AND RESTROOM WITH 1 PERSON STAND BY ASSIST. PT INCONSISTANTLY STEADY ON FEET. PT DECLINED PHYSICAL THERAPY THIS SHIFT. PT IS UPPER SORBIAN SPEAKING ONLY. PROCESS CONSULTANT USED FOR CARES. PT DISORITNED TO ALL AND STATING SENTANCE FRAGMENTS. PT USES "OK" TO ANSWER MOST QUESTIONS. PT TOLEATING REGULAR SOFT DIET. PT VOIDING QUANTIY SUFFICIENT. PT DOES NOT USE CALL LIGHT, BED/CHAIR ALARM IN PLACE.
--- NOTE | 2020-04-10 17:46 | EKG ---
[facility] [address] [facility] [facility] [place], [place] [address] Signed Normal sinus rhythm Left axis deviation Low voltage QRS Inferior infarct (cited on or before 27-JUN-2019) Abnormal ECG When compared with ECG of 27-JUN-2019 12:47, No significant change was found Confirmed by SANTHOSH LEBLANC DO ([id number]) on 04/10/2020 5:46:36 PM Electronically Signed By: SANTHOSH LEBLANC DO 04/10/20 1746 PATIENT NAME: RICHARD ALVES Electrocardiogram DATE OF : 46 PHYSICIAN: SANTHOSH LEBLANC DO REPORT #: [id number] REPORT IS CONFIDENTIAL AND NOT TO BE RELEASED WITHOUT AUTHORIZATION
--- NOTE | 2020-04-10 17:54 | NUR ---
THIS RN TO ROOM TO CHECK ON PT. PT UP TO CHAIR. PT DENIES PAIN. VITAL SIGNS STABLE. PT DENIES NEED TO USE RESTROOM. NO ADDITIONAL REQUESTS OR COMPLAINTS. CALL LIGHT IN HAND. CHAIR ALARM ON.
--- NOTE | 2020-04-10 18:52 | NUR ---
PT BACK TO BED AFTER INCONTINANT STOOL EPISODE AND SHOWER WITH IDALMIS CASTRO. PT REPORTS "EVERYTHING IS GOOD" TRANSLATED BY DIRECTOR EMBALMER. PT HAS TROUBLE EXPRESSING THOUGHTS, PT KNOWS HE WAS TAKEN TO THE BATHROOM AND SHOWERED. PT HAS MORE TO SAY BUT HAS DIFFICULTY FINDING WORDS. WARM BLANKETS PROVIDED. PT ASSISTED WITH DRINKING WATER. PT DENIES ADDITIONAL REQUESTS OR COMPLAINTS. BED RAILS UP. CALL LIGHT WITHIN REACH.
--- NOTE | 2020-04-10 19:05 | NUR ---
THE NURSE CALLED AND NEEDED HELP ON GETTING PATIENT CLEANED UP SO WE GOT HIM INTO THE SHOWER. PATIENT WASHED HIMSELF. WE GOT HIM A NEW GOWN. NEW SOCKS. THEY GOT HIM A WARM BLANKETS. I RINSED HIM OFF. NOW PATIENT IS IN BED WITH BED ALARM ON.
--- NOTE | 2020-04-10 19:30 | NUR ---
PT HAS 2ND INCONTINANT STOOL EPISODE. PT UP TO RESTROOM WITH IDALMIS CASTRO NAIMA CARE DONE. DEPENDS CHANGED. LINENS CHAANGED. PT AMBULATED BACK TO BED WITH STAND BY ASSIST. WARM BLANKET PROVIDED. PT DENIES ADDITIONAL REQUESTS OR COMPALITNS. CALL LIGHT WITHIN REACH. BED ALARM ON.
--- NOTE | 2020-04-10 19:48 | NUR ---
up to br at change of shift, was incontinent of bowel, skin care done, clean attends, back t bed 1PA, bed alarm back on.
--- NOTE | 2020-04-10 21:23 | NUR ---
OBSERVED PT GETTING OUT OF BED, SBA WITH IV TO TOILET AND BACK TO BED, NO FURTHER NEEDS AT THIS TIME
--- NOTE | 2020-04-10 21:26 | NUR ---
IV PUMP ALARMING, ISSUE RESOLVED. IV SITE WNL, FLUIDS RESUMED PER MD ORDERS. pt AWAKE AND RESTING IN BED. BED ALARM REMAINS ON AT THIS TIME, CALL LIGHT IN EASY REACH.
--- NOTE | 2020-04-10 22:12 | NUR ---
in to get pt vitals, i&os in, no further needs at this time
--- NOTE | 2020-04-10 22:20 | NUR ---
PLEASANTLY CONFUSED, COOP WITH ASSESSMENT. ON ROOM AIR, LUNGS CLEAR BILAT. NO SOB WITH EXERTION, 1PA, PT HAS A RIGHT PORT A CATH, NOT ACCESSED. IV LAC PATENT, IVF INFUSING W/O PROBLEMS. ATTENDS IN PLACE, HE IS INCONTINENT OF BOWEL AND BLADDER, GETS LACTULOSE BID. PT TOOK MEDS W/O PROBLEMS, TOLERATING FLUIDS WELL. NO N/V, BED ALARM ON PT IS A HIGH RISK FALL PRECAUTIONS.
--- NOTE | 2020-04-11 02:10 | NUR ---
in to get 2am vitals, pt denies further needs
--- NOTE | 2020-04-11 02:21 | NUR ---
AWAKES EASILY FOR VS AND ASSESSMENT, ATTENDS DRY, TOOK SIPS OF FLUIDS, IVF INFUSING, NO C/O PAIN, COOPERATIVE, CALL LIGHT AT BEDSIDE
--- NOTE | 2020-04-11 05:12 | NUR ---
PT PLEASANTLY CONFUSED, ON ROOM AIR, GETS LACTULOSE, HAVING LOOSE STOOLS, SKIN CARE, ATTENDS INPLACE. IVF INFUSING LAC. NO C/O PAIN OR N/V. BED ALARM ON, HIGH FALL PRECAUTIONS IN PLACE. FOLLOWS INSTRUCTIONS, CHINESE-BRUNEIAN INSTRUTIONS GIVEN BY THIS RN. COOPERATIVE, SLOW RESPONSE SOMETIMES. UNSTEADY GAIT, 1PA. INCONTINENT OF URINE TOO. TOLERATING DIET AND FLUIDS, UNABLE TO USE CALL LIGHT
--- NOTE | 2020-04-11 07:05 | NUR ---
BEDSIDE HANDOFF REPORT RECEIVED FROM LOAN INTERVIEWER RN. PT SLEEPING, LEFT UNDSITURBED.
--- NOTE | 2020-04-11 08:20 | NUR ---
RESPIRATORY PRACTITIONER PHONE USED FOR MORNING ASSESSMENT, RESPIRATORY PRACTITIONER #[id number]. PT ALERT BUT DOES NOT RESPOND APPROPRIATELY TO ORIENTATION QUESTIONS. PT DENIES PAIN. PT LUNG SOUNDS CLEAR, ON ROOM AIR. IV FLUSHED, PATENT INFUSING LR AT 75ML/HR. BOWEL TONES ACTIVE, GIVEN LACTULOSE PER ORDER. CMS INTACT, WIHTOUT EDEMA. ASSESSMENT LIMITED DUE TO PT RESPONSE TO QUESTIONS.
--- NOTE | 2020-04-11 11:26 | NUR ---
REPORT CALLED TO FRIDA MAHMOOD AT [facility].
== END 2020-04-11 11:10 | disposition home or self-care (01) ==
LOC: ED 08:31 → MS 08:32
PROVIDERS: ADMIT Student in an Organized Health Care Education/Training Program; ATTEND Student in an Organized Health Care Education/Training Program
DX: R41.0 Disorientation, unspecified (principal); E87.1 Hypo-osmolality and hyponatremia; G40.909 Epilepsy, unspecified, not intractable, without status epilepticus; M19.90 Unspecified osteoarthritis, unspecified site; E78.5 Hyperlipidemia, unspecified; H91.90 Unspecified hearing loss, unspecified ear; I42.9 Cardiomyopathy, unspecified; I50.22 Chronic systolic (congestive) heart failure; C19 Malignant neoplasm of rectosigmoid junction; Z79.899 Other long term (current) drug therapy; Z79.82 Long term (current) use of aspirin; Z20.828 Contact with and (suspected) exposure to other viral communicable diseases
CPT/HCPCS: 36415; 51798; 70450; 71045; 80048; 80053; 81001; 82140; 83735; 84100; 84443; 85025; 85651; 93005; 93010; 99285-25; C9803; J1650; J3475; J7030; J7121; U0003

== ENCOUNTER 2020-04-17 14:07 | Emergency (ER) | payer MEDICARE, OTHER ==
[~2020-04-17] VITALS: Ht 165.1 cm; Wt 61.2 kg
[~2020-04-17 14:07] MED LIST changes: +CHOLESTYRAMINE378 GM PO; +LACTULOSE10 GM/151 PO
--- OUTSIDE RECORDS SUMMARY | 2020-04-17 14:10 | XMS ---
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 [place] - 2 Visits in 30 Days CARE PROVIDERS There are no care providers on record at this time. Carmelo has no Care Guidelines for this patient. William VISIT COUNT (12 MO.) 3 [facility] TOTAL 3 NOTE: Visits indicate total known visits. ED/C VISIT TRACKING (12 MO.) 04/17/2020 14:08 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) drug therapy - ferry terminal agent (current) use of aspirin - Hepatic failure, unspecified without coma - Heart failure, unspecified INPATIENT VISIT TRACKING (12 MO.) 04/10/2020 08:32 [facility] [place] TYPE: Observation COMPLAINT: - ENCEPHALOPATHY DIAGNOSES: - Other alf (current) drug therapy - Chronic systolic (congestive) heart failure - Heart failure, unspecified - Unspecified osteoarthritis, unspecified site - Contact with and (suspected) exposure to other viral communicable diseases - Cardiomyopathy, unspecified - Metabolic encephalopathy - Essential (primary) hypertension - Hyperlipidemia, unspecified - halfway (current) use of aspirin - Unspecified hearing loss, unspecified ear - Personal history of other diseases of the nervous system and sense organs - Disorientation, unspecified - Hypo-osmolality and hyponatremia - Malignant neoplasm of rectosigmoid junction - Altered mental status, unspecified - Epilepsy, unspecified, not intractable, without status epilepticus [email or web address]
== END 2020-04-17 18:46 | disposition home or self-care (01) ==
LOC: ED 14:07
DX: F05 Delirium due to known physiological condition (principal); I50.9 Heart failure, unspecified; E78.5 Hyperlipidemia, unspecified; Z79.899 Other long term (current) drug therapy; Z79.82 Long term (current) use of aspirin
CPT/HCPCS: 74177; 80053; 81001; 83690; 85025; 99284-25; J7030

== ENCOUNTER 2020-06-26 02:42 | Observation (INO) | payer MEDICARE, OTHER ==
[~2020-06-26] VITALS: Ht 165.1 cm; Wt 63.5 kg
--- NOTE | 2020-06-26 09:30 | NUR ---
PATIENT ARRIVED TO CCU ROOM 129 VIA STRETCHER AND ER NURSE MALIA. 4 RNS MOVED PATIENT FROM STRETCHER TO BED. REMOVED OLD BEDDING AND REPOSOTIONED FOR COMFORT. HOB ELEVATED TO [address]ES[address] PL[address]. LIGHTS DIMMED. SUCTION SET UP AT THE BEDSIDE. PER REPORT PATIENT IS MOSTLY SWEDISH SPEAKING. WILL USE THE WEB PRODUCTION ASSISTANT LINE TO ANSWER QUESTIONS. THIS RN AND STUDENT RN ROSALINO IN THE ROOM AT THIS TIME.
--- NOTE | 2020-06-26 10:15 | NUR ---
THIS RN IN AND FINISHED PATIENTS ASSESSMENT. PATIENT WILL OPEN HIS EYES. CALLED AND USED THE GAMING PIT BOSS SERVICE AND PATIENT DIDNT ANSWER QUESTIONS. WHEN STAFF EXPLAINED WHERE HE WAS PATIENT STATED "OKAY" TO THE RADIO FREQUENCY ENGINEER. PATIENT RESTING IN BED AT THIS TIME. BED ALARM ON FOR PATIENTS SAFETY. UPDATED MD ON PATIENTS STATUS. PATIENT REMAINS DROWSY, BUT ROUSABLE TO STIMULUS. CATHETER PRESENT. VERIFIED WITH MD TO DC CATHETER. NO OTHER NEEDS AT THIS TIME. WILL CONTINUE TO CLOSELY MONITOR.
--- NOTE | 2020-06-26 11:00 | NUR ---
PATIENT IS UNABLE TO ANSWER QUESTIONS AT THIS TIME. DID MUCH OF THE ADMISSION HX AND VACINNE HX POSSIBLE FROM PREVIOUS HISTORY SHANKAR JULIAN. WILL CONTACT BRADSHAW FOR OTHER INFORMATION.
--- NOTE | 2020-06-26 12:00 | NUR ---
PATIENTS CATHETER REMOVED WITH NO ISSUES. SOME YELLOW DISCHARGE NOTED AT HEAD OF PENIS. PATIENT REPOSITIONED FOR COMFORT AND AWAKE WHILE STAFF WERE PRESENT. PATIENT QUICKLY FELL BACK TO SLEEP ONCE STAFF WERE NOT AT THE BEDSIDE. BED ALARM REMAINS ON FOR PATIENTS SAFETY.
--- NOTE | 2020-06-26 12:56 | EKG ---
[facility] [address] [facility] [facility] [place] [address] Signed Sinus rhythm with 1st degree AV block Left axis deviation Low voltage QRS Inferior infarct (cited on or before 27-JUN-2019) Abnormal ECG When compared with ECG of 10-APR-2020 08:55, ND interval has increased Confirmed by BROOKLYN DELUCA MD ([id number]) on 06/26/2020 12:56:33 PM Electronically Signed By: BROOKLYN DELUCA MD 06/26/20 1256 PATIENT NAME: NII GARZARICHARD Electrocardiogram DATE OF : 46 PHYSICIAN: BROOKLYN DELUCA MD REPORT #: [id number] REPORT IS CONFIDENTIAL AND NOT TO BE RELEASED WITHOUT AUTHORIZATION
--- NOTE | 2020-06-26 13:04 | NUR ---
STUDENT NURSE IN AT THE BEDSIDE DOING ASSESSMENT. PATIENT REMAINS AROUSABLE, BUT RESTING AT THIS TIME. WILL CONTINUE TO CLSOELY MONITOR.
--- NOTE | 2020-06-26 13:25 | NUR ---
CALLED AND SPOKE WITH [facility]. THEY WILL SEND THE MEDICATION MAR OVER. PER REPORT PATIENT NORMALY WALKS INDEPENDENTLY WITH OR WITHOUT A CANE. HE HAS TIMES OF INCONTINENCE. PATIENT IS ABLE TO EAT FOOD ON HIS OWN AND IS VERY PRIVATE NORMALLY. PER REPORT PATIENT CAN SPEAK AND UNDERSTAND SOME LUX[place]BOURGISH.
--- NOTE | 2020-06-26 13:31 | NUR ---
CHANGED PT DEPENDS. PT REPOSITIONED ON RIGHT SIDE WITH PILLOWED PLACED UNDER LEFT SIDE. PT RESTING WITH LIGHTS LOW. NO REPORTS OF PAIN. NO OTHER CONCERNS AT THIS TIME. BED ALARM ON AND CALL LIGHT WITHIN REACH.
--- NOTE | 2020-06-26 13:51 | NUR ---
Spoke with RN and she states pt lives at [facility], per their report he walks independently with a cane, wears depends as he is occassionally incont inent. Pt is able to feed self. Pt is postictal from seizures at this time. Plan is for him to return to [facility] when cleared medically.
--- NOTE | 2020-06-26 14:57 | NUR ---
PT IS HERE FROM [facility] DUE TO D=SEIZURES. TIMOTEO WRIGHTESTED I NOT VISIT PT AT THIS TIME. WILL FOLL
[2020-06-26] MEDS ORDERED: CHOLESTYRAMINE P4 GM PO (15:00)
--- NOTE | 2020-06-26 15:15 | NUR ---
PATIENT RESTING IN BED. STUDENT NURSE IN TO SEE PATIENT. PATIENT HAS REMAINED DROWSY TODAY. PATIENT OPENS EYES AND SHIFTS HIS WEIGHT IN BED, BUT QUICKLY FALLS BACK TO SLEEP ONCE STAFF ARE NOT AT THE BEDSIDE. WILL CONTINUE TO CLOSELY MONITOR. ONCE PATIENT IS MORE AWAKE WITH USE PILLAR MAN SERVICE TO TALK WITH PATIENT ABOUT PLAN OF CARE. NO OTHER NEEDS AT THIS TIME. WILL CONTINUE TO CLOSELY MONITOR.
--- NOTE | 2020-06-26 17:46 | NUR ---
PATIENT AWAKE THIS AFTERNOON. CALLED THE [employer] THIS EVENING AND SPOKE WITH THEM AND PATIENT. PATIENT ASSESSMENT COMPLETED. PATIENT SEEMS TO BE HAVING SOME EXPRESSIVE APHASIA. PATIENT STATES MOSTLY "ITS OKAY" TO ALL QUESTIONS. OCCASIONALLY PATIENT SAID YES OR NO. PATIENT ABLE TO FOLLOW COMMANDS. PATIENTS LEFT HAND NOTED TO BE WEAK. NO OTHER WEAKNESS NOTED. PATIENT WAS ABLE TO USE THE URINAL WITH ASSISTANCE. ATTENDS ARE IN PLACE FOR POSSIBLE INCONTINENCE EPISODES. STUDENT NURSE IN AT THE BEDSIDE TO HELP WITH FEEDING PATIENT MASHED POTATOES AND GRAVY FOR DINENR. BED ALARM ON. UPDATED MD LEBLANC OF WEAKNESS TO LEFT SIDE AND EXPRESIVE APHASIA DURING ASSESSMENT. THIS IS THE FIST TIME THE PATIENT HAS BEEN AWAKE ENOUGH SINCE ADMISSION TO FOLLOW COMMANDS AND TALK WITH STAFF. NO OTHER NEEDS AT THIS TIME. NO NEW ORDERS. WILL CONTINUE TO CLOSELY MONTIOR.
--- NOTE | 2020-06-26 19:40 | NUR ---
RECEIVED REPORT FROM DAY SHIFT RN.PATIENT IS RESTING IN BED WITH EYES CLOSED, RR 17.
--- NOTE | 2020-06-26 20:31 | NUR ---
PATIENT ASSESMENT COMPLETED. PATIENTS VITALS TAKEN AND RECORDED. PATIENTS ATTEND IS WET AT THIS TIME. ATTEND CHANGED AND NAIMA CARE COMPLETED. SCANT AMOUNT OF YELLOW DISCHARGE FROM HEAD OF PENIS NOTED. PATIENT IS ABLE TO FOLLOW COMMANDS WITH REPEATED PROMPTING. WHEN INQUIRING ABOUT WHERE HE IS PATIENT STATES "[place]". PATIENT STATED "ITS OK" WHEN INQUIRING ABOUT PAIN. PATIENT OFFERED URINAL DID NOT VOID. PATIENT REPOSITIONED IN BED. PATIENT PROVIDED SIPS OF WATER, AND NO SWALLOWING ISSUES NOTED. PATIENT GIVEN EVENING MEDICATIONS PER ORDER. PATIENT WAS ABLE TO SWALLOW PO MEDICATIONS WITH NO SIGNS OF ASPIRATION OR DIFFICULTY SWALLOWING. SEIZURE PRECAUTIONS IN PLACE. PATIENTS BED ALARM IS ON FOR SAFETY. PATIENT HAS X2 IVS THAT FLUSH WELL AND ARE SL. NO NEEDS NOTED. CALL LIGHT IN REACH.
--- NOTE | 2020-06-26 21:47 | NUR ---
PATIENT IS RESTING IN BED WITH EYES CLOSED, RR 15. CALL LIGHT IN REACH AND BED ALARM ON FOR SAFETY.
--- NOTE | 2020-06-26 23:18 | NUR ---
PATIENT IS RESTING IN BED WITH EYES CLOSED, VITALS ARE WNL.
--- NOTE | 2020-06-26 23:49 | NUR ---
PATIENT IS RESTING IN BED. ASSESMENT COMPLETED. VITALS COMPLETED. PATIENT OFFERED URINAL. PATIENT PLACED HANDS OVER ATTEND AND STATED "NO". PATIENT STATED "ITS OK" WHEN ASKING HIM ABOUT PAIN. PATIENT OFFERED SIPS OF WATER. VITALS TAKEN AND RECORDED. NO NEEDS NOTED. CALL LIGHT IN REACH.
--- NOTE | 2020-06-27 01:35 | NUR ---
PATIENT REPOSITIONING SLEF IN BED. PATIENT OFFERED URINAL. PATIENT DENIED. PATIENT DENIES ANY PAIN. CALL LIGHT IN REACH. BED ALARM ON FOR SAFETY.
--- NOTE | 2020-06-27 03:31 | NUR ---
PATIENT IS RESTING IN BED WITH EYES CLOSED, VITALS ARE WNL. CALL LIGHT IN REACH.
--- NOTE | 2020-06-27 04:22 | NUR ---
PATIENT ASSISTED TO THE COMMODE WITH MINIMAL ASSISTANCE. PATIENT WAS UNABLE TO VOID AT THIS TIME. PATIENT IS BACK IN BED RESTING. SIPS OF WATER PROVIDED. VITALS TAKEN AND RECORDED. PATIENT CONTINUES TO STATE "ITS OK" WHEN ASKING ABOUT PAIN. PATIENT IS BACK IN BED RESTING. NO NEEDS NOTED. CALL LIGHT IN REACH. BED ALARM ON FOR SAFETY.
--- NOTE | 2020-06-27 05:50 | NUR ---
PATIENT IS RESTING IN BED WITH EYES CLOSED, VITALS ARE WNL. CALL LIGHT IN REACH AND BED ALARM ON FOR PATIENT SAFETY.
--- NOTE | 2020-06-27 07:35 | NUR ---
PATIENT SHIFT REPORT RECIEVED FROM ENGINEERING AIDE RN. PATIENT RESTING IN BED. PER REPROT PATIENT SLEPT OFF/ON THROUGH THE NIGHT. [facility] WILL CONTINUE TO CLOSELY MONITOR. BED ALARM ON FOR PATIENT SAFETY.
--- NOTE | 2020-06-27 07:38 | NUR ---
RECIEVED REPORT FROM ATHLETIC TRAINER. PT SLEEPING IN BED WITH HEAD ELEVATED. BED RAILS UP. NO CONCERNS AT THIS TIME.
--- NOTE | 2020-06-27 08:30 | NUR ---
Notified in 829, pt will return to [facility] today. Texted Roro at [facility] and let her know I will fax orders when completed.
--- NOTE | 2020-06-27 08:59 | NUR ---
ASSESSMENT COMPLETE. PT REFUSED BATHROOM. ASSISTED PT OUT OF BED AND INTO CHAIR WITH MINIMAL ASSISTANCE. PT SITTING UP IN THE CHAIR EATING BREAKFAST. FOR BREAKFAST. UNDERSTANDS COMMANDS BUT WHEN ASKED BY MANAGER INTEGRATION PT WOULD ASNWER "I DONT KNOW" MEDICATION GIVEN. PT AWAKE. WARM BLANKET GIVEN. CHAIR ALARM ON FOR SAFETY. WILL CONTINUE TO MONITOR CLOSELY.
--- NOTE | 2020-06-27 10:00 | NUR ---
PATIENT ASSISTED UP TO THE BATHROOM WITH STAND-BY ASSIST AND TOELRATED WELL. PATIENT BACK TO THE CHAIR AT THIS TIME. CHAIR ALARM ON FOR PATIENTS SAFETY. WILL CONTINUE TO CLOSELY MONITOR.
--- NOTE | 2020-06-27 11:30 | NUR ---
Notified by [facility]U Rn, she has received orders for [facility]. Picked up orders and faxed with DC summary to [facility].
[2020-06-27] MEDS ORDERED: LEVETIRACETAM500 MG PO (11:41)
--- NOTE | 2020-06-27 11:50 | NUR ---
Orders returned in envelope for [facility] and copy placed in chart. Pt will be ready for dc at 1300. Called and scheduled [facility] van, they are unable to pick pt up until 1345, texted Jack and asked if they will put a wc out now as [facility] van is on a tight schedule today and will picker box operator the wc between other clients and will transport pt at 1345. Requested [facility] van pick pt up at the ambulance bay, as it is nearest to [facility]. Understanding stated.
--- NOTE | 2020-06-27 11:55 | NUR ---
ASSESSMENT COMPLETE. DR IN TO SEE PATIENT AND WILL BE DISCHARGED TODAY. PT SITTING UP IN CHAIR EATING LUNCH. AWAKE AND ALERT. IV IN LEFT AC REMOVED. INTERPRETOR CALLED WAS INITIATED AND PT RESPONDED TO QUESTIONS WITH "I DONT KNOW" OR "ITS OK" WHEN ASKED IF HE KNEW WHERE HE WAS. LOW ALARM IN PLACE AND WILL CONTINUE TO MONITOR.
--- NOTE | 2020-06-27 12:28 | NUR ---
CALLED AND SPOKE WITH GAIL MAHMOOD AT [facility] AND GAVE REPORT. PATIENT HAS HAD NO FURTHER SIGNS/SYMPTOMS OF SIEZURE ACTIVITY SINCE ADMISSION. PATIENT IS NOW TAKING KEPRA AND WILL DISCHAARGE PATIENT ON MEDICATION. PATIENT ARRIVED TO THE [facility] YESTERDAY WITH NO BELONGINGS. UPDATED STAFF AT [facility] OF THIS AND WILL BE SENDING PATIENT IN PANTS AND A GOWN FROM HERE. DOLORES WITH CASE MANAGEMENT FINISHED PAPERWORK AND ARRANGED A RIDE FOR PATIENT. PATIENT WILL LEAVE HERE AROUND 1345. UPDATED STAFF ON PATIENTS CURRENT CONDITION. PATIENT HAS NOT SPOKEN WITH STAFF MUCH AND WHEN ASKED QUESTIONS THROUGH THE TRAFFIC RECORDER PATIENT STATES "I KNOW NOTHING" IN [place]. PATIENT REMAINS ALERT AND FOLLOWS COMMANDS WELL. PATIENT WORKING ON HIS LUNCH AT THIS TIME. NO SKIN ISSUES NOTED HERE. NO OTHER QUESTIONS. WILL CONTINUE TO CLOSELY MONTIOR
--- NOTE | 2020-06-27 12:46 | NUR ---
PT TO BE DC'D BACK TO [facility]. WILL FOLLOW NEEDED
--- NOTE | 2020-06-27 13:04 | NUR ---
ASSISTED PT TO RESTROOM. BACK TO CHAIR. REMOVED IV IN RIGHT HAND. PT IS READY FOR DISCHARGE. SITTING IN CHAIR WITH BLANKET ON AND LEGS UP. NO OTHER CONCERNS. CHAIR ALARM IN PLACE AND ON FOR SAFETY.
--- NOTE | 2020-06-27 13:57 | NUR ---
PATIENT DISCHARGED VIA WHEELCHAIR WITH THIS RN TO THE WHEELCHAIR VAN. PATIENT ASSISTED INTO THE WHEELCHAIR VAN BY STAFF AND VAN PUDDLER HELPER. NO FURTHER QUESTIONS. UPDATED JELANI RN DURING REPORT THAT PATIENT WAS SET TO LEAVE FACILITY AT 1345. PAPERWORK SENT WITH VAN PUDDLER HELPER. NO FURTHER QUESTIONS AT THIS TIME.
== END 2020-06-27 13:50 | disposition home or self-care (01) ==
LOC: ED 02:42 → CCU 02:43
PROVIDERS: ADMIT Internal Medicine; ATTEND Internal Medicine
DX: G40.909 Epilepsy, unspecified, not intractable, without status epilepticus (principal); G93.89 Other specified disorders of brain; E78.5 Hyperlipidemia, unspecified; I42.9 Cardiomyopathy, unspecified; I50.22 Chronic systolic (congestive) heart failure; Z79.82 Long term (current) use of aspirin; Z85.038 Personal history of other malignant neoplasm of large intestine; Z20.822 Contact with and (suspected) exposure to COVID-19
CPT/HCPCS: 70450; 71045; 80053; 81001; 82140; 82550; 83605; 83735; 84146; 84484; 85025; 93005; 93010; C9803; J1650; J1953; J2250; J3475; U0003

== ENCOUNTER 2020-08-01 12:02 | Emergency (ER) | payer MEDICARE, OTHER ==
[~2020-08-01] VITALS: Ht 165.1 cm; Wt 63.5 kg
--- NOTE | 2020-08-03 13:13 | EKG ---
[facility] [address] [facility] [place] [address] Signed Normal sinus rhythm Left axis deviation Abnormal ECG When compared with ECG of 26-JUN-2020 03:40, AL interval has decreased Criteria for Inferior infarct are no longer present Confirmed by BROOKLYN DELUCA MD ([id number]) on 08/03/2020 1:13:32 PM Electronically Signed By: BROOKLYN DELUCA MD 08/03/20 1313 PATIENT NAME: RICHARD ALVES Electrocardiogram DATE OF : 46 PHYSICIAN: BROOKLYN DELUCA MD REPORT #: [id number] REPORT IS CONFIDENTIAL AND NOT TO BE RELEASED WITHOUT AUTHORIZATION
== END 2020-08-01 21:13 | disposition short-term general hospital (02) ==
LOC: ED 12:02
DX: G40.901 Epilepsy, unspecified, not intractable, with status epilepticus (principal); R41.82 Altered mental status, unspecified; I47.2 Ventricular tachycardia; Z20.822 Contact with and (suspected) exposure to COVID-19; M19.90 Unspecified osteoarthritis, unspecified site; I50.9 Heart failure, unspecified; E78.5 Hyperlipidemia, unspecified; Z79.899 Other long term (current) drug therapy; Z79.82 Long term (current) use of aspirin
CPT/HCPCS: 70450; 71045; 80053; 81001; 82542; 83735; 85025; 93005; 93010; 96374; 96375; 99285-25; C9803; J1100; J1953; J2060; J3475; J7030; Q2009; U0003